=== PATIENT | male | born 1945 | race Caucasian/White ===

== ENCOUNTER 2021-12-07 11:02 | Emergency (ER) | payer MEDICARE, BC, SELFPAY ==
[2021-12-07] VITALS (10 sets, daily range): BP systolic 87–135; BP diastolic 59–107; PULSE 55–105; RESP 14–18; TEMP 36.6; O2SAT 97–100; BMI 24.4
--- NOTE | 2021-12-07 12:04 | ED_ITS ---
HPI - General Adult General Time Seen by Provider: 12:03 Date Seen: 12/07/21 Chief complaint: Arrhythmia/Palpitations Stated complaint: Heart issues possible AFIB Time Seen by Provider: 12/07/21 11:12 Source: patient History of Present Illness HPI narrative: 76-year-old male presents with recurrence of paroxysmal atrial fibrillation. Patient reports that Tuesday evening about 6:45 p.m. he noted that he had irr egular and rapid heartbeats. He has had this previously. He had his last episode in September and underwent Successful cardioversion on September 28 for that. he is seeking the same treatment now. He has been on Xarelto for stroke prophylaxis and has not missed any doses in the last month. He is on metoprolol 100 b.i.d. for rate control. He is not had anything to eat or drink since 01/02 last night. no previous problems with anesthesia. Previous cardioversions have been done with propofal. Related Data Home Medications Medication Instructions Recorded Confirmed acalabrutinib 100 mg capsule mg PO . daily 12/07/21 (Calquence) amlodipine 5 mg tablet mg 12/07/21 atorvastatin 20 mg tablet mg 12/07/21 doxazosin 4 mg tablet mg 12/07/21 lisinopril 10 mg tablet mg 12/07/21 metoprolol tartrate 100 mg tablet mg 12/07/21 rivaroxaban 20 mg tablet (Xarelto) mg 12/07/21 Allergies Allergy/AdvReac Type Severity Reaction Status Date / Time Penicillins Allergy Verified 12/07/21 11:33 Review of Systems Narrative: patient notes he has generally been feeling well except for 2 problems. For urine half he has had a plugged since in his ear. He was initially evaluated for that no some concern about blood in the middle ear space. he saw an ENT in [place] who ordered an MRI which was apparently normal. His ear got better and now in the last couple weeks has gotten worse again. He has not had recent respiratory illness. He does note that he has also had chronic congestion with drainage sometimes including streaks of blood coming from his sinuses. No fever. He has noted for the last 4-5 months that he has had a slight amount of blood mixed in with his stool. He indicates it is bright red to maroonish in color. No other significant bowel abnormalities. He has never had colonoscopy. [facility] Medical History Anxiety BPH with obstruction/lower urinary tract symptoms CLL (chronic lymphocytic leukemia) History of cardioversion Hypertension Malignant melanoma Paroxysmal atrial fibrillation Prostate cancer Surgical History History of cataract surgery History of melanoma excision History of tonsillectomy Hx of mitral valve repair Family History (Updated 12/07/21 @ 12:13 by Benjie Woodard MD) Other CHF (congestive heart failure) Hodgkins disease Social History (Updated 12/07/21 @ 12:14 by Benjie Woodard MD) Narrative: he is and here with his . He gets oncology care through [facility]. He gets primary care through Dr. Brian Coronado. He does not smoke. He drinks 1 glass of red wine daily. Smoking Status: Never smoker How often do you have a drink containing alcohol: monthly or less How often do you have six or more drinks on one occasion: Never AUDIT-C Alcohol total score: 1 Non-prescribed substance use: denies use Exam Narrative: Exam Narrative: He is alert and appears in no distress. He gives his own history. Eyes normal. Pinnas external canals bilaterally normal he has moderate cerumen in his left ear canal. Right tympanic membrane appears normal but behind it appears to be a dark reddish discoloration suggestive of old blood. He has a relatively normal light reflex and no other abnormalities noted. Oropharynx is normal. Neck is supple out mass or adenopathy. Respirations are clear to auscultation. Cardiovascular: S1, S2, irregularly irregular tachycardia. Abdomen is soft without tenderness or mass. Extremities without edema. Good peripheral pulses. Const: Vital Signs, click to edit/add: Vital Signs - 24 hr 12/07/21 11:24 12/07/21 12:00 Temperature 98 F Pulse Rate [Pulse Oximeter] 92 Respiratory Rate 18 18 Blood Pressure [Le ft Upper Arm] 108/78 Pulse Oximetry 98 99 While resting on the gurney during our history taking he had and irregular pulse is ranging from 80-130 Documenting provider has reviewed patient's vital signs: yes Course Vital Signs Vital signs: Initial Vital Signs Temperature 98 F 12/07/21 11:24 Temperature Source Temporal Artery Scan 12/07/21 11:24 Pulse Rate 92 12/07/21 11:24 Pulse Rhythm 12/07/21 11:24 Respiratory Rate 18 12/07/21 11:24 Blood Pressure 108/78 12/07/21 11:24 Blood Pressure Mean 88 12/07/21 11:24 Blood Pressure Position Supine 12/07/21 11:24 Pulse Oximetry 98 12/07/21 11:24 Oxygen Delivery Method 12/07/21 11:24 Vital Signs Temperature 98 F 12/07/21 11:24 Pulse Rate 92 12/07/21 11:24 Respiratory Rate 18 12/07/21 11:24 Blood Pressure 108/78 12/07/21 11:24 Pulse Oximetry 98 12/07/21 11:24 Temperature 98 F 12/07/21 11:24 Pulse Rate 92 12/07/21 11:24 Respiratory Rate 18 12/07/21 12:00 Blood Pressure 108/78 12/07/21 11:24 Pulse Oximetry 99 12/07/21 12:00 Medical Decision Making Lab Data Labs: Lab Results 12/07/21 12/07/21 Range/Units 12:00 12:00 WBC 8.31 (4.50-11.00) K/uL RBC 4.14 L (4.30-5.90) m/uL Hgb 11.5 L (13.5-17.5) gm/dL Hct 36.7 L (37.0-53.0) % MCV 89 (80-100) fL MCH 28 (26-34) pg MCHC 31 L (32-36) gm/dL RDW Coeff of Ekta 14.7 (11.5-15.5) % Plt Count 246 (140-440) K/uL Neut % (Auto) 73.2 H (42.0-72.0) % Lymph % (Auto) 18.1 L (20-44) % [place] % (Auto) 6.1 (0.0-11.0) % Eos % (Auto) 2.0 (0.0-7.0) % Baso % (Auto) 0.5 (0.0-3.0) % Neut # (Auto) 6.10 (1.7-7.0) K/uL Lymph # (Auto) 1.50 (0.90-2.90) K/uL [place] # (Auto) 0.50 (0.00-0.90) K/UL Eos # (Auto) 0.17 (0.00-0.50) K/uL Baso # (Auto) 0.04 (0.00-0.30) K/uL Abs Immat Gran (auto) 0.01 (0.00-0.30) K/uL Sodium 139 (135-149) mmol/L Potassium 4.1 (3.6-5.1) mmol/L Chloride 107 (96-114) mmol/L Carbon Dioxide 25 (20-32) mmol/L BUN 18 (7-30) mg/dL Creatinine 1.0 (0.5-1.5) mg/dL Estimated Creat Clear 66.93 Glucose 112 (60-115) mg/dL Calcium 8.6 (8.4-10.6) mg/dL Discharge Plan Discharge Clinical Impression: Atrial fibrillation with rapid ventricular response Patient Disposition: Home, Self-Care Condition: Improved Additional Instructions: follow-up with Dr. Torres regarding your plugged right ear and blood in your stool. Activity Level: No Restrictions Discharge Diet: Regular Prescriptions: No Action atorvastatin 20 mg tablet 0RF metoprolol tartrate 100 mg tablet 0RF amlodipine 5 mg tablet 0RF lisinopril 10 mg tablet 0RF doxazosin 4 mg tablet 0RF Xarelto 20 mg tablet 0RF Calquence 100 mg capsule PO . daily 0RF Follow Up/Referrals: Essie Torres MD [Primary Care Provider] - Stand Al[facility] Procedures Additional Procedures Procedure name: electrical cardioversion Pre procedure diagnosis: AFib with RVR Post procedure diagnosis: AFib with RVR status post successful cardioversion Written consent by: patient Specimen sent: No Conclusion: patient tolerated procedure Additional comments: PERSON[employer]EL [employer]EARCH PSYCHOLOGIST provided propofol for deep anesthesia
[2021-12-07 12:11] LABS: Basophils Absolute Auto 0.04 K/uL (0.00-0.30); Basophils Percent Auto 0.5 % (0.0-3.0); Eosinophils Absolute Auto 0.17 K/uL (0.00-0.50); Hematocrit 36.7 % (37.0-53.0); Hemoglobin* 11.5 gm/dL (13.5-17.5); Immature Granulocytes Abs Auto 0.01 K/uL (0.00-0.30); Lymphocytes Percent Auto 18.1 % (20-44); Mean Corpuscular HGB Conc 31 gm/dL (32-36); Mean Corpuscular Hemoglobin 28 pg (26-34); Mean Corpuscular Volume 89 fL (80-100); Monocytes Percent Auto 6.1 % (0.0-11.0); Neutrophils Percent Auto 73.2 % (42.0-72.0); Platelet Count* 246 K/uL (140-440); RDW Coefficient of Variation % 14.7 % (11.5-15.5); Red Blood Count 4.14 m/uL (4.30-5.90); White Blood Count* 8.31 K/uL (4.50-11.00)
[2021-12-07] MEDS: 0.9 % SODIUM CHLORIDE 1000 ml 1,000 ML IV (12:20)
[2021-12-07 12:23] LABS: Chloride* 107 mmol/L (96-114); Potassium* 4.1 mmol/L (3.6-5.1); Sodium* 139 mmol/L (135-149)
[2021-12-07 12:26] LABS: Blood Urea Nitrogen* 18 mg/dL (7-30); Carbon Dioxide* 25 mmol/L (20-32); Est. Creatinine Clearance* 66.93
[2021-12-07 12:27] LABS: Calcium* 8.6 mg/dL (8.4-10.6); Glucose* 112 mg/dL (60-115)
--- NOTE | 2021-12-07 12:40 | ED.NURSE ---
Patient's father, Baptist, called and informed of negative strep test.
[2021-12-07 12:50] LABS: Slide Review Reflex No
--- NOTE | 2021-12-07 12:53 | W.ANESCHARGE ---
Anesthesia Charges Start Date/Time Anesthesia Start Date: 12/07/21 Anesthesia Start Time: 12:25 Stop Date/Time Anesthesia Stop Date: 12/07/21 Anesthesia Stop Time: 12:40 Summary Emergency: Yes Extremes of Age: Over 70-CPT [id number]
== END 2021-12-07 13:28 | disposition home or self-care (01) ==
PROVIDERS: Emergency Provider Family Medicine; PCP Family Medicine
DX: I48.20 Chronic atrial fibrillation, unspecified (principal)
CPT/HCPCS: 92960; 36415; 80048; 85025; 93005; 99100; 99140; 99284; 99285; J2704; J7030

== ENCOUNTER 2021-12-17 09:55 | Outpatient (RCR) | payer MEDICARE, BC, SELFPAY ==
[2021-12-17 10:19] LABS: Basophils Absolute Auto 0.04 K/uL (0.00-0.30); Basophils Percent Auto 0.6 % (0.0-3.0); Eosinophils Absolute Auto 0.21 K/uL (0.00-0.50); Eosinophils Percent Auto 2.9 % (0.0-7.0); Hematocrit 35.6 % (37.0-53.0); Hemoglobin* 11.2 gm/dL (13.5-17.5); Immature Granulocytes Abs Auto 0.01 K/uL (0.00-0.30); Lymphocytes Absolute Auto 1.47 K/uL (0.90-2.90); Lymphocytes Percent Auto 20.6 % (20-44); Mean Corpuscular HGB Conc 32 gm/dL (32-36); Mean Corpuscular Hemoglobin 28 pg (26-34); Mean Corpuscular Volume 89 fL (80-100); Monocytes Percent Auto 6.9 % (0.0-11.0); Neutrophils Absolute Auto 4.92 K/uL (1.7-7.0); Neutrophils Percent Auto 68.9 % (42.0-72.0); Platelet Count* 225 K/uL (140-440); RDW Coefficient of Variation % 14.4 % (11.5-15.5); Red Blood Count 3.98 m/uL (4.30-5.90); White Blood Count* 7.14 K/uL (4.50-11.00)
[2021-12-17 10:30] LABS: Slide Review Reflex No
== END 2022-01-03 23:59 | disposition home or self-care (01) ==
LOC: CCIC 09:55
PROVIDERS: PCP Family Medicine; Visit Provider Internal Medicine Hematology & Oncology
DX: C91.10 Chronic lymphocytic leukemia of B-cell type not having achieved remission (principal)
CPT/HCPCS: 36415; 85025

== ENCOUNTER 2021-12-29 10:22 | Emergency (ER) | payer MEDICARE, BC, SELFPAY ==
[2021-12-29 10:29] VITALS: BP 99/67; PULSE 84; RESP 18; TEMP 36.3; O2SAT 99; BMI 24.3
--- NOTE | 2021-12-29 11:14 | ED.ARRPALP ---
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 He did try to use fluids, for the rest of the day but this did not work. He has no history of alcohol use. As she has been off alcohol now for the past month. Last cardioversion was on December 07 at this institution. He is NPO since last night, taking his medications with sips of water otherwise. Denies any chest pain shortness of breath or really any other symptoms, actually played golf yesterday. MD complaint: atrial fibrillation Onset (ago): day(s) Duration: constant Severity: mild Context: occurred during rest Arrhythmia history: atrial fibrillation, on anti-coagulants and history of electrical cardioversion Associated symptoms: denies other symptoms Related Data Home Medications Medication Instructions Recorded Confirmed acalabrutinib 100 mg capsule 100 mg PO .Q24 12/07/21 12/16/21 (Calquence) amlodipine 5 mg tablet 5 mg PO .Q24 12/07/21 12/16/21 atorvastatin 20 mg tablet 10 mg PO .QHS 12/07/21 12/16/21 doxazosin 4 mg tablet 4 mg PO .QHS 12/07/21 12/16/21 lisinopril 10 mg tablet 15 mg PO .Q24 12/07/21 12/16/21 metoprolol tartrate 100 mg tablet 100 mg PO Q12H 12/07/21 12/16/21 rivaroxaban 20 mg tablet (Xarelto) 20 mg PO Q24H 12/07/21 12/16/21 alprazolam 0.25 mg tablet 0.25 mg PO DAILY PRN 12/16/21 12/16/21 calcium carbonate 500 mg calcium 500 mg PO DAILY 12/16/21 12/16/21 (1,250 mg) chewable tablet famotidine 20 mg tablet (Pepcid) 20 mg PO DAILY 12/16/21 12/16/21 furosemide 20 mg tablet 10 mg PO DAILY PRN 12/16/21 12/16/21 magnesium oxide 400 mg PO DAILY 12/16/21 12/16/21 Allergies Allergy/AdvReac Type Severity Reaction Status Date / Time Penicillins Allergy Verified 12/07/21 11:33 Review of Systems Status of ROS: Reports: 10 or more systems reviewed and unremarkable except as noted in History and below [facility] Medical History Anxiety 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 He gets oncology care through [facility]. He gets primary care through Dr. Brian Coronado. He does not smoke. He drinks 1 glass of red wine daily. Smoking Status: Never smoker Second hand tobacco smoke exposure: No How often do you have a drink containing alcohol: monthly or less How often do you have six or more drinks on one occasion: Never AUDIT-C Alcohol total score: 1 Non-prescribed substance use: denies use service: No Exam Narrative: Exam Narrative: Patient is in no apparent distress speaking to me normally, pupils equal round reactive fundi appear normal neck is supple thyroid normal midline not palpable, no meningismus, no lymphadenopathy noted. Chest is clear heart sounds are normal no clicks murmurs or gallops abdomen is soft, moves all extremities independently well neurologically intact in his upper lower extremities with normal power, able to walk normally for me in the room. There is no edema. Const: Vital Signs, click to edit/add: Vital Signs - 24 hr 12/29/21 10:29 12/29/21 13:27 Temperature 97.3 F L Pulse Rate [Right Pulse Oximeter] 84 Respiratory Rate 18 Blood Pressure [Ri ght Upper Arm] 99/67 Pulse Oximetry 99 99 Documenting provider has reviewed patient's vital signs: yes Course Course Hospital Course: 1:09 p.m. Patient now has received his magnesium along with a L and half of fluids with really no bulging and still remains in atrial fibrillation. I discussed with him the risks benefits and side effects of treatment he would like to go forward with a cardioversion which I do not think is unreasonable as he is a great candidate. 1:50 p.m. with supplying anesthesia, with propofol, patient was cardioverted with 120 joules synchronized x1 to good effect into sinus rhythm. No complications were noted. Respiratory therapy also was available. Vital Signs Vital signs: Initial Vital Signs Temperature 97.3 F L 12/29/21 10:29 Temperature Source Temporal Artery Scan 12/29/21 10:29 Pulse Rate 84 12/29/21 10:29 Respiratory Rate 18 12/29/21 10:29 Blood Pressure 99/67 12/29/21 10:29 Blood Pressure Mean 77 12/29/21 10:29 Blood Pressure Position Sitting 12/29/21 10:29 Pulse Oximetry 99 12/29/21 10:29 Oxygen Delivery Method 12/29/21 10:29 Vital Signs Temperature 97.3 F L 12/29/21 10:29 Pulse Rate 84 12/29/21 10:29 Respiratory Rate 18 12/29/21 10:29 Blood Pressure 99/67 12/29/21 10:29 Pulse Oximetry 99 12/29/21 10:29 Temperature 97.3 F L 12/29/21 10:29 Pulse Rate 84 12/29/21 10:29 Respiratory Rate 18 12/29/21 10:29 Blood Pressure 99/67 12/29/21 10:29 Pulse Oximetry 99 12/29/21 13:27 MDM - Arrhythmia/Palpitations MDM Narrative Medical decision making narrative: Differential diagnosis includes but is not limited to psychosocial stress, thyroid abnormalities, CHF, SVT, atrial fibrillation, ventricular tachycardia and ventricular fibrillation. This includes the life-threatening complications of heart failure, V-tach, and VFib I discussed with the patient that a cardioversion would be a possibility, we will keep him from eating anything NPO we will check some electrolytes CBC and troponins. I will give him some fluids and magnesium as this often can help. He was comfortable this plan. Medical Records Attestation: I reviewed the patient's medical records. Lab Data Labs: Lab Results 12/29/21 12/29/21 12/29/21 Range/Units 11:10 11:10 11:10 WBC 7.46 (4.50-11.00) K/uL RBC 4.21 L (4.30-5.90) m/uL Hgb 11.8 L (13.5-17.5) gm/dL Hct 37.0 (37.0-53.0) % MCV 88 (80-100) fL MCH 28 (26-34) pg MCHC 32 (32-36) gm/dL RDW Coeff of Ekta 14.3 (11.5-15.5) % Plt Count 238 (140-440) K/uL Neut % (Auto) 68.7 (42.0-72.0) % Lymph % (Auto) 22.0 (20-44) % [place] % (Auto) 7.4 (0.0-11.0) % Eos % (Auto) 1.5 (0.0-7.0) % Baso % (Auto) 0.3 (0.0-3.0) % Neut # (Auto) 5.13 (1.7-7.0) K/uL Lymph # (Auto) 1.64 (0.90-2.90) K/uL [place] # (Auto) 0.60 (0.00-0.90) K/UL Eos # (Auto) 0.11 (0.00-0.50) K/uL Baso # (Auto) 0.02 (0.00-0.30) K/uL Abs Immat Gran (auto) 0.01 (0.00-0.30) K/uL INR 2.70 H (0.91-1.10) APTT 42 H (23-33) Seconds Sodium 136 (135-149) mmol/L Potassium 4.1 (3.6-5.1) mmol/L Chloride 106 (96-114) mmol/L Carbon Dioxide 22 (20-32) mmol/L BUN 20 (7-30) mg/dL Creatinine 1.1 (0.5-1.5) mg/dL Estimated Creat Clear 60.85 Estimated GFR 70 ml/min Glucose 99 (60-115) mg/dL Calcium 8.9 (8.4-10.6) mg/dL Magnesium (1.5-2.6) mg/dL NT-Pro-B Natriuret Pep 3440 H (0-450) PG/mL TSH (0.270-4.20) uIU/mL POC Troponin I (0.01-0.04) ng/ml 12/29/21 12/29/21 12/29/21 Range/Units 11:10 11:10 11:10 WBC (4.50-11.00) K/uL RBC (4.30-5.90) m/uL Hgb (13.5-17.5) gm/dL Hct (37.0-53.0) % MCV (80-100) fL MCH (26-34) pg MCHC (32-36) gm/dL RDW Coeff of Ekta (11.5-15.5) % Plt Count (140-440) K/uL Neut % (Auto) (42.0-72.0) % Lymph % (Auto) (20-44) % [place] % (Auto) (0.0-11.0) % Eos % (Auto) (0.0-7.0) % Baso % (Auto) (0.0-3.0) % Neut # (Auto) (1.7-7.0) K/uL Lymph # (Auto) (0.90-2.90) K/uL [place] # (Auto) (0.00-0.90) K/UL Eos # (Auto) (0.00-0.50) K/uL Baso # (Auto) (0.00-0.30) K/uL Abs Immat Gran (auto) (0.00-0.30) K/uL INR (0.91-1.10) APTT (23-33) Seconds Sodium (135-149) mmol/L Potassium (3.6-5.1) mmol/L Chloride (96-114) mmol/L Carbon Dioxide (20-32) mmol/L BUN (7-30) mg/dL Creatinine (0.5-1.5) mg/dL Estimated Creat Clear Estimated GFR ml/min Glucose (60-115) mg/dL Calcium (8.4-10.6) mg/dL Magnesium 1.9 (1.5-2.6) mg/dL NT-Pro-B Natriuret Pep (0-450) PG/mL TSH 3.550 (0.270-4.20) uIU/mL POC Troponin I 0.01 (0.01-0.04) ng/ml ECG Data Attestation: I personally reviewed and interpreted this ECG as follows: ECG interpretation date: 12/29/21 ECG interpretation time: 12:02 Prior ECG tracings: available for review Ischemic changes: other Interpretation: Atrial fibrillation with controlled ventricular rate of 96 nonspecific changes otherwise normal. Old EKG is the same Postprocedure EKG shows normal sinus rhythm. No acute ST wave changes. Discharge Plan Discharge Clinical Impression: Atrial fibrillation status post cardioversion, Atrial fibrillation Patient Disposition: Home w/ Parent or Adult Condition: Improved Instructions: A-fib (Atrial Fibrillation) (ED) Additional Instructions: Home rest suggest follow-up with [facility] for further instructions. Continue with hydration status. Continue medications Prescriptions: No Action alprazolam 0.25 mg tablet 0.25 mg PO DAILY PRN0RF calcium carbonate 500 mg calcium (1,250 mg) tablet,chewable 500 mg PO DAILY 0RF famotidine [Pepcid] 20 mg tablet 20 mg PO DAILY 0RF furosemide 20 mg tablet 10 mg PO DAILY PRN0RF magnesium oxide 400 mg magnesium tablet 400 mg PO DAILY 0RF atorvastatin 20 mg tablet 10 mg PO .QHS 0RF metoprolol tartrate 100 mg tablet 100 mg PO Q12H 0RF amlodipine 5 mg tablet 5 mg PO .Q24 0RF lisinopril 10 mg tablet 15 mg PO .Q24 0RF doxazosin 4 mg tablet 4 mg PO .QHS 0RF Xarelto 20 mg tablet 20 mg PO Q24H 0RF Calquence 100 mg capsule 100 mg PO .Q24 0RF Follow Up/Referrals: Essie Torres MD [Primary Care Provider] - Stand Alone Forms: [employer] Info Instructions
[2021-12-29 11:28] LABS: Troponin, Point-of-Care* 0.01 ng/ml (0.01-0.04)
[2021-12-29 11:33] LABS: Basophils Absolute Auto 0.02 K/uL (0.00-0.30); Basophils Percent Auto 0.3 % (0.0-3.0); Eosinophils Absolute Auto 0.11 K/uL (0.00-0.50); Eosinophils Percent Auto 1.5 % (0.0-7.0); Hemoglobin* 11.8 gm/dL (13.5-17.5); Immature Granulocytes Abs Auto 0.01 K/uL (0.00-0.30); Lymphocytes Absolute Auto 1.64 K/uL (0.90-2.90); Mean Corpuscular HGB Conc 32 gm/dL (32-36); Mean Corpuscular Hemoglobin 28 pg (26-34); Mean Corpuscular Volume 88 fL (80-100); Monocytes Percent Auto 7.4 % (0.0-11.0); Neutrophils Absolute Auto 5.13 K/uL (1.7-7.0); Neutrophils Percent Auto 68.7 % (42.0-72.0); Platelet Count* 238 K/uL (140-440); RDW Coefficient of Variation % 14.3 % (11.5-15.5); Red Blood Count 4.21 m/uL (4.30-5.90); White Blood Count* 7.46 K/uL (4.50-11.00)
[2021-12-29 11:41] LABS: Potassium* 4.1 mmol/L (3.6-5.1); Slide Review Reflex No
[2021-12-29] MEDS: 0.9 % SODIUM CHLORIDE 1000 ml 1,000 ML IV ×2 (11:43→13:00)
[2021-12-29] MEDS: MAGNESIUM SULFATE 2 GM/50 ML PIGGYBACK IVPB (11:43)
[2021-12-29 11:47] LABS: Chloride* 106 mmol/L (96-114); Sodium* 136 mmol/L (135-149)
[2021-12-29 11:50] LABS: Carbon Dioxide* 22 mmol/L (20-32); Creatinine* 1.1 mg/dL (0.5-1.5); Est. Creatinine Clearance* 60.85; Estimated Glomerular Filt Rate 70 ml/min; Magnesium* 1.9 mg/dL (1.5-2.6)
[2021-12-29 11:51] LABS: Blood Urea Nitrogen* 20 mg/dL (7-30); Calcium* 8.9 mg/dL (8.4-10.6); Glucose* 99 mg/dL (60-115)
[2021-12-29 11:58] LABS: Partial Thromboplastin Time* 42 Seconds (23-33); Prothrombin Time 29.1 Seconds
[2021-12-29 12:00] LABS: NT Pro B Type NatriureticPept* 3440 PG/mL (0-450)
[2021-12-29 13:27] VITALS: O2SAT 99
[2021-12-29] MEDS: PROPOFOL 10 MG/ML INJ 200 MG IV (13:42)
--- NOTE | 2021-12-29 14:16 | RESP.RT ---
Pt cardioverted, on SB for airway monitoring, support. See nursing record for vitals.
--- NOTE | 2021-12-29 15:48 | ED.NURSE ---
see sedation record for patient vital signs during ED stay.
== END 2021-12-29 14:35 | disposition home or self-care (01) ==
PROVIDERS: Emergency Provider Family Medicine; PCP Family Medicine
DX: I48.91 Unspecified atrial fibrillation (principal)
CPT/HCPCS: 36415; 80048; 83735; 83880; 84443; 84484; 85025; 85610; 85730; 92960; 93005; 96365; 99156; 99284; 99285; J2704; J3475; J7030

== ENCOUNTER 2021-12-30 10:06 | Emergency (ER) | payer MEDICARE, BC, SELFPAY ==
[2021-12-30] VITALS (14 sets, daily range): BP systolic 121–153; BP diastolic 80–122; PULSE 69–143; RESP 10–19; TEMP 36.1; O2SAT 98–100; BMI 24.4
--- NOTE | 2021-12-30 11:04 | ED_ITS ---
HPI - General Adult General Time Seen by Provider: 11:04 Date Seen: 12/30/21 Chief complaint: Arrhythmia/Palpitations Stated complaint: Afib Time Seen by Provider: 12/30/21 10:09 Source: patient History of Present Illness HPI narrative: Camila is a 76 year old male with past medical history of CLL, atrial fibrillation s/p cardioversion yesterday who presents to the ED via private care with palpitations. Patient states he was here yesterday for atrial fibrillation and palpitations, he was cardioverted successfully into sinus rhythm, he went back home and was stress reading and around 4:00 p.m. he went back into atrial fibrillation. Patient's symptoms are that he feels weak and fatigued, exertional shortness of breath, denies any chest pain, cough lightheadedness or dizziness. Originally he came in yesterday for the same, symptoms started on Tuesday when he went to play golf. Patient states he has been eating and drinking normally, denies any fevers, chills myalgias arthralgias, denies any nausea vomiting or diarrhea. Patient is currently on Xarelto. He does take acalabrutinib (Calquence) for his CLL, one of the side effects is atrial fibrillation. Patient states he had a cardiac ablation match November, he follow-up by Dr. Santana EP [facility], he also gets his oncology care there. Patient has been cardioverted a total of around 5 times in the past. He saw Dr. Santana in [place] 1 month ago. No other concerns at this time. Related Data Home Medications Medication Instructions Recorded Confirmed acalabrutinib 100 mg capsule 100 mg PO .Q24 12/07/21 12/16/21 (Calquence) amlodipine 5 mg tablet 5 mg PO .Q24 12/07/21 12/16/21 atorvastatin 20 mg tablet 10 mg PO .QHS 12/07/21 12/16/21 doxazosin 4 mg tablet 4 mg PO .QHS 12/07/21 12/16/21 lisinopril 10 mg tablet 15 mg PO .Q24 12/07/21 12/16/21 metoprolol tartrate 100 mg tablet 100 mg PO Q12H 12/07/21 12/16/21 rivaroxaban 20 mg tablet (Xarelto) 20 mg PO Q24H 12/07/21 12/16/21 alprazolam 0.25 mg tablet 0.25 mg PO DAILY PRN 12/16/21 12/16/21 calcium carbonate 500 mg calcium 500 mg PO DAILY 12/16/21 12/16/21 (1,250 mg) chewable tablet famotidine 20 mg tablet (Pepcid) 20 mg PO DAILY 12/16/21 12/16/21 furosemide 20 mg tablet 10 mg PO DAILY PRN 12/16/21 12/16/21 magnesium oxide 400 mg PO DAILY 12/16/21 12/16/21 Previous Rx's Medication Instructions Recorded metoprolol tartrate 50 mg tablet 50 mg PO DAILY #30 tab 12/30/21 Allergies Allergy/AdvReac Type Severity Reaction Status Date / Time Penicillins Allergy Verified 12/07/21 11:33 Review of Systems Status of ROS: Reports: 10 or more systems reviewed and unremarkable except as noted in History and below [facility] Medical History Anxiety 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 He gets oncology care through [facility]. He gets primary care through Dr. Brian Coronado. He does not smoke. He drinks 1 glass of red wine daily. Smoking Status: Never smoker Do you use any of these nicotine containing products: None Second hand tobacco smoke exposure: No How often do you have a drink containing alcohol: never How often do you have six or more drinks on one occasion: Never AUDIT-C Alcohol total score: 0 Non-prescribed substance use: denies use service: No Exam Const: Vital Signs, click to edit/add: Vital Signs - 24 hr 12/30/21 10:10 12/30/21 10:14 12/30/21 10:20 Temperature 96.9 F L Pulse Rate [Left P ulse Oximeter] 143 H 108 H 109 H Respiratory Rate 19 16 11 L Blood Pressure [Le ft Upper Arm] 153/108 H 153/108 H 131/119 H Pulse Oximetry 99 99 99 12/30/21 10:30 12/30/21 11:00 12/30/21 11:45 Temperature Pulse Rate [Left P ulse Oximeter] 107 H 109 H 109 H Respiratory Rate 10 L Blood Pressure [Le ft Upper Arm] 145/121 H 128/83 140/122 H Pulse Oximetry 99 99 98 12/30/21 12:00 12/30/21 12:30 12/30/21 13:00 Temperature Pulse Rate [Left P ulse Oximeter] 102 H 84 Respiratory Rate Blood Pressure [Le ft Upper Arm] 138/101 H 121/104 H 132/87 Pulse Oximetry 99 100 12/30/21 13:05 12/30/21 13:10 12/30/21 13:15 Temperature Pulse Rate [Left P ulse Oximeter] 88 92 69 Respiratory Rate Blood Pressure [Le ft Upper Arm] 126/93 H 130/89 125/92 H Pulse Oximetry 100 100 100 12/30/21 13:25 12/30/21 14:00 Temperature Pulse Rate [Left P ulse Oximeter] 85 98 Respiratory Rate Blood Pressure [Le ft Upper Arm] 148/80 H 143/87 H Pulse Oximetry 100 99 Common normals: no apparent distress and oriented x3 General appearance: comfortable Orientation/consciousness: Yes awake and Yes oriented to person HENMT: Common normals: normocephalic and TM's normal bilaterally Head and scalp: normal to inspection and normocephalic Tympanic membrane: TM's normal bilaterally and TM normal on the right Mouth: oral and palatal mucosa normal Eye: Common normals: PERRL and EOMs intact bilaterally General eye: normal appearance of both eyes Pupil: PERRL Neck & C-Spine: Common normals: full ROM, no lymphadenopathy, supple and no JVD Lymph: Lymphatic: no lymphadenopathy noted Chest: Common normals: inspection of chest normal Resp: Common normals: normal respiratory effort and clear to auscultation bilaterally Auscultation: clear to auscultation bilaterally Cardio: Common normals: no JVD Other: Irregular irregular GI: Common normals: Normal to inspection, nondistended, normoactive bowel sounds present and soft to palpation Palpation: soft Extremity: Common normals: normal to inspection, full ROM and no clubbing, cyanosis or edema Neuro: Common normals: oriented x3, CN's II-XII intact bilaterally, moves all extremities and no focal motor deficits Sensorium/orientation: awake and oriented to person Course Course Hospital Course: 11:15 PM: AIDET performed, vitals are stable at this time, workup will include 0.9 normal saline bolus 500 mL, will obtain EKG, NT proBNP, CBC, CMP magnesium and portable chest x-ray. Will reach out to [facility] for further recommendations. Differential diagnosis include but not limited to, atrial fibrillation with RVR, supraventricular tachycardia, ventricular tachycardia, ventricular fibrillation, sinus tachycardia, metabolic abnormalities, congestive heart failure, ACS, as well as all etiologies. Vital Signs Vital signs: Initial Vital Signs Pulse Rate 143 H 12/30/21 10:10 Respiratory Rate 19 12/30/21 10:10 Blood Pressure 153/108 H 12/30/21 10:10 Blood Pressure Mean 123 12/30/21 10:10 Blood Pressure Position Supine 12/30/21 10:10 Pulse Oximetry 99 12/30/21 10:10 Oxygen Delivery Method 12/30/21 10:10 Vital Signs Pulse Rate 143 H 12/30/21 10:10 Respiratory Rate 19 12/30/21 10:10 Blood Pressure 153/108 H 12/30/21 10:10 Pulse Oximetry 99 12/30/21 10:10 Temperature 96.9 F L 12/30/21 10:14 Pulse Rate 98 12/30/21 14:00 Respiratory Rate 10 L 12/30/21 10:30 Blood Pressure 143/87 H 12/30/21 14:00 Pulse Oximetry 99 12/30/21 14:00 Medical Decision Making Lab Data Labs: Lab Results 12/30/21 12/30/21 12/30/21 Range/Units 11:45 11:45 11:45 WBC 7.41 (4.50-11.00) K/uL RBC 4.09 L (4.30-5.90) m/uL Hgb 11.7 L (13.5-17.5) gm/dL Hct 36.4 L (37.0-53.0) % MCV 89 (80-100) fL MCH 29 (26-34) pg MCHC 32 (32-36) gm/dL RDW Coeff of Ekta 14.2 (11.5-15.5) % Plt Count 247 (140-440) K/uL Neut % (Auto) 72.2 H (42.0-72.0) % Lymph % (Auto) 19.6 L (20-44) % [place] % (Auto) 6.9 (0.0-11.0) % Eos % (Auto) 0.9 (0.0-7.0) % Baso % (Auto) 0.3 (0.0-3.0) % Neut # (Auto) 5.40 (1.7-7.0) K/uL Lymph # (Auto) 1.50 (0.90-2.90) K/uL [place] # (Auto) 0.50 (0.00-0.90) K/UL Eos # (Auto) 0.07 (0.00-0.50) K/uL Baso # (Auto) 0.02 (0.00-0.30) K/uL Abs Immat Gran (auto) 0.01 (0.00-0.30) K/uL Sodium 138 (135-149) mmol/L Potassium 4.6 (3.6-5.1) mmol/L Chloride 108 (96-114) mmol/L Carbon Dioxide 24 (20-32) mmol/L BUN 18 (7-30) mg/dL Creatinine 1.0 (0.5-1.5) mg/dL Estimated Creat Clear 66.93 Estimated GFR 78 ml/min Glucose 104 (60-115) mg/dL Calcium 8.7 (8.4-10.6) mg/dL Magnesium 2.0 (1.5-2.6) mg/dL Total Bilirubin 1.9 H (0.1-1.5) mg/dL AST 20 (12-35) U/L ALT 14 (4-50) U/L Alkaline Phosphatase 88 (40-150) U/L NT-Pro-B Natriuret Pep 3440 H (0-450) PG/mL Total Protein 6.5 (6.0-8.3) g/dL Albumin 4.0 (3.3-5.0) g/dL Discharge Plan Discharge Clinical Impression: History of cardioversion, Atrial fibrillation, Chronic anticoagulation Patient Disposition: Home, Self-Care Instructions: A-fib (Atrial Fibrillation) (ED) Additional Instructions: To take Metoprolol tartrate 150 mg in the morning and then 100 mg in the evening. To follow up with Dr. Nazario Cardiology or Dr. Santana EP in [place] in the next week for ED follow up. Return if worsening symptoms. Activity Level: No Restrictions Prescriptions: New metoprolol tartrate 50 mg tablet 50 mg PO DAILY Qty: 30 3RF No Action alprazolam 0.25 mg tablet 0.25 mg PO DAILY PRN0RF calcium carbonate 500 mg calcium (1,250 mg) tablet,chewable 500 mg PO DAILY 0RF famotidine [Pepcid] 20 mg tablet 20 mg PO DAILY 0RF furosemide 20 mg tablet 10 mg PO DAILY PRN0RF magnesium oxide 400 mg magnesium tablet 400 mg PO DAILY 0RF atorvastatin 20 mg tablet 10 mg PO .QHS 0RF metoprolol tartrate 100 mg tablet 100 mg PO Q12H 0RF amlodipine 5 mg tablet 5 mg PO .Q24 0RF lisinopril 10 mg tablet 15 mg PO .Q24 0RF doxazosin 4 mg tablet 4 mg PO .QHS 0RF Xarelto 20 mg tablet 20 mg PO Q24H 0RF Calquence 100 mg capsule 100 mg PO .Q24 0RF Follow Up/Referrals: Essie Torres MD [Primary Care Provider] - Stand Alone Forms: [employer] Info Instructions
--- NOTE | 2021-12-30 11:39 | CRLHL7_ITS ---
For Patients: As a result of the Century Cures Act, medical imaging exams and procedure reports are released immediately into your electronic medical record. You may view this report before your referring provider. If you have questions, please contact your health care provider. INDICATION: History of cardioversion. TECHNIQUE: Chest 1 views. COMPARISON: 07/29/2021. FINDINGS: Cardiovascular and mediastinum: Heart size and vasculature are normal in caliber and appearance. Lungs and pleural spaces: Lungs are clear. No sign of infiltrate or mass. No sign of pleural effusion. No pneumothorax. Bones and soft tissues: No significant findings. IMPRESSION: No acute or significant findings. Dictated by Satish Leung MD @ 12/30/2021 12:10:12 PM (Electronically Signed)
[2021-12-30] MEDS: 0.9 % SODIUM CHLORIDE 500 ML 500 ML IV (11:45)
[2021-12-30 12:03] LABS: Basophils Absolute Auto 0.02 K/uL (0.00-0.30); Basophils Percent Auto 0.3 % (0.0-3.0); Eosinophils Absolute Auto 0.07 K/uL (0.00-0.50); Eosinophils Percent Auto 0.9 % (0.0-7.0); Hematocrit 36.4 % (37.0-53.0); Hemoglobin* 11.7 gm/dL (13.5-17.5); Immature Granulocytes Abs Auto 0.01 K/uL (0.00-0.30); Lymphocytes Percent Auto 19.6 % (20-44); Mean Corpuscular HGB Conc 32 gm/dL (32-36); Mean Corpuscular Hemoglobin 29 pg (26-34); Mean Corpuscular Volume 89 fL (80-100); Monocytes Percent Auto 6.9 % (0.0-11.0); Neutrophils Percent Auto 72.2 % (42.0-72.0); Platelet Count* 247 K/uL (140-440); RDW Coefficient of Variation % 14.2 % (11.5-15.5); Red Blood Count 4.09 m/uL (4.30-5.90); White Blood Count* 7.41 K/uL (4.50-11.00)
[2021-12-30 12:04] LABS: Slide Review Reflex No
[2021-12-30] MEDS: METOPROLOL TARTRATE 25 MG TABLET PO ×2 (12:10)
--- NOTE | 2021-12-30 12:11 | ED.NURSE ---
Per MD Brambila, 2 tablets of 25mg metoprolol tartrate given PO to pt. Unable to document administration in the MAR at this time.
--- NOTE | 2021-12-30 12:11 | ED.GENADULT ---
HPI - General Adult General Chief complaint: Arrhythmia/Palpitations Stated complaint: Afib Time Seen by Provider: 12/30/21 10:09 Source: patient Related Data Home Medications Medication Instructions Recorded Confirmed acalabrutinib 100 mg capsule 100 mg PO .Q24 12/07/21 12/16/21 (Calquence) amlodipine 5 mg tablet 5 mg PO .Q24 12/07/21 12/16/21 atorvastatin 20 mg tablet 10 mg PO .QHS 12/07/21 12/16/21 doxazosin 4 mg tablet 4 mg PO .QHS 12/07/21 12/16/21 lisinopril 10 mg tablet 15 mg PO .Q24 12/07/21 12/16/21 metoprolol tartrate 100 mg tablet 100 mg PO Q12H 12/07/21 12/16/21 rivaroxaban 20 mg tablet (Xarelto) 20 mg PO Q24H 12/07/21 12/16/21 alprazolam 0.25 mg tablet 0.25 mg PO DAILY PRN 12/16/21 12/16/21 calcium carbonate 500 mg calcium 500 mg PO DAILY 12/16/21 12/16/21 (1,250 mg) chewable tablet famotidine 20 mg tablet (Pepcid) 20 mg PO DAILY 12/16/21 12/16/21 furosemide 20 mg tablet 10 mg PO DAILY PRN 12/16/21 12/16/21 magnesium oxide 400 mg PO DAILY 12/16/21 12/16/21 Previous Rx's Medication Instructions Recorded metoprolol tartrate 50 mg tablet 50 mg PO DAILY #30 tab 12/30/21 Allergies Allergy/AdvReac Type Severity Reaction Status Date / Time Penicillins Allergy Verified 12/07/21 11:33 [facility] Medical History Anxiety 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 He gets oncology care through [facility]. He gets primary care through Dr. Brian Croonado. He does not smoke. He drinks 1 glass of red wine daily. Smoking Status: Never smoker Do you use any of these nicotine containing products: None Second hand tobacco smoke exposure: No How often do you have a drink containing alcohol: never How often do you have six or more drinks on one occasion: Never AUDIT-C Alcohol total score: 0 Non-prescribed substance use: denies use service: No Exam Const: Vital Signs, click to edit/add: Vital Signs - 24 hr 12/30/21 10:10 12/30/21 10:14 12/30/21 10:20 Temperature 96.9 F L Pulse Rate [Left P ulse Oximeter] 143 H 108 H 109 H Respiratory Rate 19 16 11 L Blood Pressure [Le ft Upper Arm] 153/108 H 153/108 H 131/119 H Pulse Oximetry 99 99 99 12/30/21 10:30 Temperature Pulse Rate [Left P ulse Oximeter] 107 H Respiratory Rate 10 L Blood Pressure [Le ft Upper Arm] 145/121 H Pulse Oximetry 99 Course Course Hospital Course: 11:15 PM: AIDET performed, vitals are stable at this time, workup will include 0.9 normal saline bolus 500 mL, will obtain EKG, NT proBNP, CBC, CMP magnesium and portable chest x-ray. Will reach out to EP [facility] for further recommendations. Differential diagnosis include but not limited to, atrial fibrillation with RVR, supraventricular tachycardia, ventricular tachycardia, ventricular fibrillation, sinus tachycardia, metabolic abnormalities, congestive heart failure, ACS, as well as all etiologies. Reevaluation(s) Reevaluation #1: Spoke with [facility] Cardiology Dr. Beatriz PENDLETON, he recommended not to repeat cardioversion today, to increase metoprolol tartrate dose 250 mg in the morning and then 100 mg in the evening, to have him follow up with EP with Dr. Santana sooner than late for ED follow up, or possibly Dr. Nazario Cardiology in [place]. Patient was updated on his EKG and lab results, EKG did show atrial fibrillation with the p.m. 96, there were premature ventricular complexes. CBC showed no leukocytosis, hemoglobin stable at 11.7. Time: 12:11 Reevaluation #2: Patient was updated on his imaging results, showed no acute cardiopulmonary process, NT proBNP mildly elevated due to his atrial fibrillation, no signs of fluid overload on exam, metabolic panel within normal limits. Patient was given the above care and his rate was controlled, he was ambulating with no symptoms, did reach out to Dr. Santana to get him in next week for ED followup, all questions answered. Reasons to return given. Time: 13:31 Vital Signs Vital signs: Initial Vital Signs Pulse Rate 143 H 12/30/21 10:10 Respiratory Rate 19 12/30/21 10:10 Blood Pressure 153/108 H 12/30/21 10:10 Blood Pressure Mean 123 12/30/21 10:10 Blood Pressure Position Supine 12/30/21 10:10 Pulse Oximetry 99 12/30/21 10:10 Oxygen Delivery Method 12/30/21 10:10 Vital Signs Pulse Rate 143 H 12/30/21 10:10 Respiratory Rate 19 12/30/21 10:10 Blood Pressure 153/108 H 12/30/21 10:10 Pulse Oximetry 99 12/30/21 10:10 Temperature 96.9 F L 12/30/21 10:14 Pulse Rate 107 H 12/30/21 10:30 Respiratory Rate 10 L 12/30/21 10:30 Blood Pressure 145/121 H 12/30/21 10:30 Pulse Oximetry 99 12/30/21 10:30 Medical Decision Making Lab Data Labs: Lab Results 12/30/21 12/30/21 12/30/21 Range/Units 11:45 11:45 11:45 WBC 7.41 (4.50-11.00) K/uL RBC 4.09 L (4.30-5.90) m/uL Hgb 11.7 L (13.5-17.5) gm/dL Hct 36.4 L (37.0-53.0) % MCV 89 (80-100) fL MCH 29 (26-34) pg MCHC 32 (32-36) gm/dL RDW Coeff of Ekta 14.2 (11.5-15.5) % Plt Count 247 (140-440) K/uL Neut % (Auto) 72.2 H (42.0-72.0) % Lymph % (Auto) 19.6 L (20-44) % [place] % (Auto) 6.9 (0.0-11.0) % Eos % (Auto) 0.9 (0.0-7.0) % Baso % (Auto) 0.3 (0.0-3.0) % Neut # (Auto) 5.40 (1.7-7.0) K/uL Lymph # (Auto) 1.50 (0.90-2.90) K/uL [place] # (Auto) 0.50 (0.00-0.90) K/UL Eos # (Auto) 0.07 (0.00-0.50) K/uL Baso # (Auto) 0.02 (0.00-0.30) K/uL Abs Immat Gran (auto) 0.01 (0.00-0.30) K/uL Sodium 138 (135-149) mmol/L Potassium 4.6 (3.6-5.1) mmol/L Chloride 108 (96-114) mmol/L Carbon Dioxide 24 (20-32) mmol/L BUN 18 (7-30) mg/dL Creatinine 1.0 (0.5-1.5) mg/dL Estimated Creat Clear 66.93 Estimated GFR 78 ml/min Glucose 104 (60-115) mg/dL Calcium 8.7 (8.4-10.6) mg/dL Magnesium 2.0 (1.5-2.6) mg/dL Total Bilirubin 1.9 H (0.1-1.5) mg/dL AST 20 (12-35) U/L ALT 14 (4-50) U/L Alkaline Phosphatase 88 (40-150) U/L NT-Pro-B Natriuret Pep 3440 H (0-450) PG/mL Total Protein 6.5 (6.0-8.3) g/dL Albumin 4.0 (3.3-5.0) g/dL Discharge Plan Discharge Clinical Impression: History of cardioversion, Atrial fibrillation, Chronic anticoagulation Patient Disposition: Home, Self-Care Instructions: A-fib (Atrial Fibrillation) (ED) Additional Instructions: To take Metoprolol tartrate 150 mg in the morning and then 100 mg in the evening. To follow up with Dr. Nazario Cardiology or Dr. Santana EP in [place] in the next week for ED follow up. Return if worsening symptoms. Activity Level: No Restrictions Prescriptions: New metoprolol tartrate 50 mg tablet 50 mg PO DAILY Qty: 30 3RF No Action alprazolam 0.25 mg tablet 0.25 mg PO DAILY PRN0RF calcium carbonate 500 mg calcium (1,250 mg) tablet,chewable 500 mg PO DAILY 0RF famotidine [Pepcid] 20 mg tablet 20 mg PO DAILY 0RF furosemide 20 mg tablet 10 mg PO DAILY PRN0RF magnesium oxide 400 mg magnesium tablet 400 mg PO DAILY 0RF atorvastatin 20 mg tablet 10 mg PO .QHS 0RF metoprolol tartrate 100 mg tablet 100 mg PO Q12H 0RF amlodipine 5 mg tablet 5 mg PO .Q24 0RF lisinopril 10 mg tablet 15 mg PO .Q24 0RF doxazosin 4 mg tablet 4 mg PO .QHS 0RF Xarelto 20 mg tablet 20 mg PO Q24H 0RF Calquence 100 mg capsule 100 mg PO .Q24 0RF Follow Up/Referrals: Essie Torres MD [Primary Care Provider] - Stand Alone Forms: [facility] Info Instructions
[2021-12-30 12:16] LABS: Chloride* 108 mmol/L (96-114)
[2021-12-30 12:17] LABS: Potassium* 4.6 mmol/L (3.6-5.1); Sodium* 138 mmol/L (135-149)
[2021-12-30 12:19] LABS: Aspartate Amino Transferase* 20 U/L (12-35); Bilirubin Total* 1.9 mg/dL (0.1-1.5); Carbon Dioxide* 24 mmol/L (20-32); Est. Creatinine Clearance* 66.93; Estimated Glomerular Filt Rate 78 ml/min; Total Protein* 6.5 g/dL (6.0-8.3)
[2021-12-30 12:20] LABS: Alanine Aminotransferase* 14 U/L (4-50); Alkaline Phosphatase* 88 U/L (40-150); Blood Urea Nitrogen* 18 mg/dL (7-30); Calcium* 8.7 mg/dL (8.4-10.6); Glucose* 104 mg/dL (60-115)
[2021-12-30 12:29] LABS: NT Pro B Type NatriureticPept* 3440 PG/mL (0-450)
[2021-12-30] MEDS: dilTIAZem 5 MG/ML inj 10 MG IVP (13:00)
--- NOTE | 2021-12-30 13:22 | ED.NURSE ---
Road test with pt, pt tolerated ambulation well. Initial HR in the mid-80's during ambulation. While ambulating and talking with MD, HR up to 100-110. MD aware. HR down to 80's upon sitting back in bed.
--- NOTE | 2021-12-30 14:11 | PC.NURSE ---
Patient discharged home with . Patient to follow up with science instructor in the next week. Will increase his Metoprolol to 150mg in Am and 100mg in PM. IV was taken out and catheter intact. Patient left ambulatory.
== END 2021-12-30 14:13 | disposition home or self-care (01) ==
LOC: ED 13:39
PROVIDERS: Emergency Provider Student in an Organized Health Care Education/Training Program; PCP Family Medicine
DX: I48.91 Unspecified atrial fibrillation (principal)
CPT/HCPCS: 36415; 71045; 80053; 81003; 83735; 83880; 85025; 96360; 99283; 99284; A9270; J7120

== ENCOUNTER 2022-01-14 09:52 | Outpatient (RCR) | payer MEDICARE, BC, SELFPAY ==
[2022-01-14 10:13] LABS: Basophils Absolute Auto 0.02 K/uL (0.00-0.30); Basophils Percent Auto 0.3 % (0.0-3.0); Eosinophils Absolute Auto 0.21 K/uL (0.00-0.50); Hematocrit 34.4 % (37.0-53.0); Hemoglobin* 10.8 gm/dL (13.5-17.5); Immature Granulocytes Abs Auto 0.01 K/uL (0.00-0.30); Lymphocytes Absolute Auto 1.68 K/uL (0.90-2.90); Lymphocytes Percent Auto 23.9 % (20-44); Mean Corpuscular HGB Conc 31 gm/dL (32-36); Mean Corpuscular Hemoglobin 28 pg (26-34); Mean Corpuscular Volume 89 fL (80-100); Monocytes Percent Auto 5.7 % (0.0-11.0); Platelet Count* 257 K/uL (140-440); RDW Coefficient of Variation % 13.7 % (11.5-15.5); Red Blood Count 3.87 m/uL (4.30-5.90); Slide Review Reflex No; White Blood Count* 7.02 K/uL (4.50-11.00)
--- NOTE | 2022-01-14 15:36 | ONC.NURNOTE ---
Lab results reviewed by Dr Hurtado and LM on voice mail to call for results- but stable
== END 2022-07-13 23:59 | disposition home or self-care (01) ==
LOC: CCIC 09:52
PROVIDERS: PCP Family Medicine; Visit Provider Internal Medicine Hematology & Oncology
DX: C91.10 Chronic lymphocytic leukemia of B-cell type not having achieved remission (principal)
CPT/HCPCS: 36415; 85025

== ENCOUNTER 2022-03-22 09:52 | Outpatient (CLI) | payer MEDICARE, BC, SELFPAY ==
--- NOTE | 2022-03-22 11:00 | CRLHL7_ITS ---
For Patients: As a result of the 21st Century Cures Act, medical imaging exams and procedure reports are released immediately into your electronic medical record. You may view this report before your referring provider. If you have questions, please contact your health care provider. Indication: Chronic lymphocytic leukemia Technique: Postcontrast CT chest, abdomen and pelvis. Oral water. 85 cc Isovue 370 intravenous contrast. Please note that all CT scans at this facility use dose modulation, iterative reconstruction, and/or weight-based dosing when appropriate to reduce radiation dose to as low as reasonably achievable. Comparison: 11/20/2021, 07/15/2021, 05/18/2021, 08/23/2019, 08/16/2019 Findings: In the chest, patchy ill-defined areas parenchymal density are similar bilaterally although there is a new ground-glass focus within the left upper lobe, series 4, image 34. No pleural effusion or pericardial effusion. No pneumothorax or congestive heart failure. Innumerable mildly enlarged left axillary and mediastinal lymph nodes are similar to the November 20, 2021 examination. Partially calcified subcarinal and right hilar lymph nodes are also stable. Coronary artery calcifications are present. There is no hiatal hernia. The visualized thyroid gland is normal. Bridging osteophytes lower thoracic spine. No fracture. In the abdomen, there is no suspicious intrahepatic mass. A few scattered subcentimeter cysts are noted within the right hepatic lobe. Bulky adenopathy measuring 4.8 cm between the inferior liver and pancreas is similar to the 05/18/2021 examination. Innumerable enlarged central mesenteric lymph nodes and retroperitoneal lymph nodes are present which have decreased in size compared to the 08/16/2027 examination. The spleen is not enlarged. Adrenal glands normal. No solid renal mass. Subcentimeter cyst lower pole right kidney. 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 Ureters normal. Pancreatic parenchyma normal. Gallbladder incompletely distended. Vascular calcifications. No aneurysm. In the pelvis, radiotherapy seeds are present within the prostate gland. The bladder is normal without wall thickening or stones. Mildly enlarged bilateral pelvic sidewall and inguinal lymph nodes are present which have markedly decreased in size compared to the 08/16/2027 exam. There is no bowel obstruction or free air. No free fluid or abscess. Mild colonic diverticulosis. No diverticulitis. No fracture. Degenerative changes. No intrinsic osseous lesion. Impression: Since 08/16/2019, there has been a significant decrease in size regarding the mesenteric, retroperitoneal, pelvic and inguinal adenopathy. There is a similar lymph node mass within the right upper abdomen between the pancreas and liver, unchanged from 05/18/2021. Also similar are numerous prominent lymph nodes within the mediastinum and left axilla compared to 11/20/2021. New focus of pulmonary ground-glass opacity within the left upper lobe with likely similar other patchy areas of ground-glass density elsewhere. Please note that all CT scans at this facility use dose modulation, iterative reconstruction, and/or weight-based dosing when appropriate to reduce radiation dose to as low as reasonably achievable. Dictated by Ron Walters MD @ 03/22/2022 12:21:52 PM (Electronically Signed)
== END 2022-03-22 09:53 | disposition home or self-care (01) ==
LOC: CT 09:53
PROVIDERS: PCP Family Medicine; Visit Provider Internal Medicine Medical Oncology
DX: C91.10 Chronic lymphocytic leukemia of B-cell type not having achieved remission (principal); R59.9 Enlarged lymph nodes, unspecified
CPT/HCPCS: 71260; 74177; Q9967

== ENCOUNTER 2022-05-21 10:52 | Emergency (ER) | payer MEDICARE, BC, SELFPAY ==
[2022-05-21] VITALS (31 sets, daily range): BP systolic 93–136; BP diastolic 55–101; PULSE 62–114; RESP 7–20; TEMP 36.2; O2SAT 93–99; BMI 24.7
--- NOTE | 2022-05-21 11:23 | ED.ARRPALP ---
HPI - Arrhythmia/Palpitations General Chief Complaint: Arrhythmia/Palpitations Stated Complaint: Possible AFIB Time Seen by Provider: 05/21/22 11:03 History of Present Illness HPI narrative: This 76-year-old male comes in suspecting recurrent atrial fibrillation. He states that he feels some very slight lightheadedness at times when getting up but denies having any chest pain or shortness of breath. He has had atrial fibrillation in the past and has been cardioverted a couple times. This was last done about 5 months ago. He has seen a sports fitness and wellness director who has him on sotalol 80 mg twice daily. He is also taking Xarelto. Related Data Home Medications Medication Instructions Recorded Confirmed acalabrutinib 100 mg capsule 100 mg PO .Q24 12/07/21 05/21/22 (Calquence) amlodipine 5 mg tablet 5 mg PO .Q24 12/07/21 05/21/22 rivaroxaban 20 mg tablet (Xarelto) 20 mg PO Q24H 12/07/21 05/21/22 alprazolam 0.25 mg tablet 0.25 mg PO DAILY PRN 12/16/21 05/21/22 calcium carbonate 500 mg calcium 500 mg PO DAILY 12/16/21 05/21/22 (1,250 mg) chewable tablet famotidine 20 mg tablet (Pepcid) 20 mg PO DAILY 12/16/21 05/21/22 atorvastatin 20 mg tablet 20 mg PO .QHS 02/15/22 05/21/22 lisinopril 10 mg tablet 10 mg PO BID 02/15/22 05/21/22 magnesium chloride 71.5 mg 71.5 mg PO QDAY 02/15/22 05/21/22 (magnesium chloride) tablet,delayed release (Slow-Mag) sotalol 80 mg tablet 80 mg PO BID 02/15/22 05/21/22 tamsulosin 0.4 mg capsule (Flomax) 0.4 mg PO QDAY 02/15/22 05/21/22 Allergies Allergy/AdvReac Type Severity Reaction Status Date / Time Penicillins Allergy Verified 04/12/22 12:06 Imbruvica AdvReac Intermediate rash Uncoded 04/12/22 12:06 Review of Systems Status of ROS: Reports: 10 or more systems reviewed and unremarkable except as noted in History and below Narrative: Constitutional: No fevers, no weight gain or loss. Eyes: No discharge. No vision changes. HENT: No congestion, no sore throat, no ear pain. Cardiovascular: No chest pain. He suspects atrial fibrillation. Respiratory: No shortness of breath, no wheezes, no cough. Gastrointestinal: No abdominal pain, no vomiting, no diarrhea. Genitourinary: No dysuria, no hematuria. Musculoskeletal: Normal range of motion. Skin: No rashes, no pruritis. Neurological: No dizziness, weakness, sensory change, speech change. Endo/Heme/Allergies: No bruising or bleeding. No polydipsia. Pysch: no suicidality, no anxiety, no insomnia. All other systems reviewed and are negative. [facility] Medical History (Updated 05/21/22 @ 12:57 by Nash Vo MD) Anxiety BPH with obstruction/lower urinary tract symptoms CAD (coronary artery disease) CLL (chronic lymphocytic leukemia) (~08/2018) GERD (gastroesophageal reflux disease) History of cardioversion Hypertension Malignant melanoma Paroxysmal atrial fibrillation Prostate cancer Pulmonary nodules Surgical History (Updated 01/14/22 @ 07:46 by Judy Rendon APRN) History of cataract surgery History of melanoma excision History of tonsillectomy Hx of mitral valve repair S/P mitral valve clip implantation (~2019) Family History Other CHF (congestive heart failure) Hodgkins disease Social History Narrative: he is and here with his . He gets oncology care through [facility]. He gets primary care through Dr. Brian Coronado. He does not smoke. He drinks 1 glass of red wine daily. Smoking Status: Never smoker Do you use any of these nicotine containing products: None Second hand tobacco smoke exposure: No How often do you have a drink containing alcohol: never How often do you have six or more drinks on one occasion: Never AUDIT-C Alcohol total score: 0 Non-prescribed substance use: denies use service: No Exam Narrative: Exam Narrative: Constitutional: Well-developed, well-nourished, no acute distress. HEENT: Normocephalic, atraumatic. Neck: Normal range of motion. Nontender. Supple. Heart: Irregular. No murmurs. Tachycardia. Intact distal pulses. Lungs: Clear to auscultation. No chest discomfort. No wheezes, rhonchi, or rales. Abdomen: Normal bowel sounds. Nontender. No rebound tenderness. Genitalia: Deferred. Back: No midline tenderness. Normal range of motion. Extremities: Normal range of motion. No injury. Skin: Intact. No rash. Warm. No erythema or pallor. Neurologic: No altered sensation. No weakness. Alert and oriented. Psychiatric: No suicidality. No anxiety or depression. No insomnia. Nursing notes and vitals signs are reviewed. Const: Vital Signs, click to edit/add: Vital Signs - 24 hr 05/21/22 11:00 05/21/22 11:55 05/21/22 11:52 Temperature 97.2 F L Pulse Rate 105 H Pulse Rate [Pulse Oximeter] 114 H Respiratory Rate 20 Blood Pressure Blood Pressure [Le ft Upper Arm] 136/97 H Pulse Oximetry 99 98 98 Oxygen Delivery Me thod Room Air Nasal Cannula Oxygen Flow Rate 2 05/21/22 11:55 05/21/22 11:57 05/21/22 11:58 Temperature Pulse Rate 103 H 100 92 Pulse Rate [Pulse Oximeter] Respiratory Rate 15 13 9 L Blood Pressure 129/101 H 118/83 Blood Pressure [Le ft Upper Arm] Pulse Oximetry 97 99 99 Oxygen Delivery Me thod Nasal Cannula Oxygen Flow Rate 3 05/21/22 12:00 05/21/22 12:02 05/21/22 12:05 Temperature Pulse Rate 76 66 65 Pulse Rate [Pulse Oximeter] Respiratory Rate 17 10 L 17 Blood Pressure 112/65 Blood Pressure [Le ft Upper Arm] Pulse Oximetry 93 97 97 Oxygen Delivery Me thod Oxygen Flow Rate 05/21/22 12:07 05/21/22 12:10 05/21/22 12:11 Temperature Pulse Rate 63 62 66 Pulse Rate [Pulse Oximeter] Respiratory Rate 17 17 17 Blood Pressure 100/60 100/66 Blood Pressure [Le ft Upper Arm] Pulse Oximetry 97 96 98 Oxygen Delivery Me thod Oxygen Flow Rate Course Vital Signs Vital signs: Initial Vital Signs Temperature 97.2 F L 05/21/22 11:00 Temperature Source Temporal Artery Scan 05/21/22 11:00 Pulse Rate 114 H 05/21/22 11:00 Pulse Rhythm 05/21/22 11:00 Respiratory Rate 20 05/21/22 11:00 Blood Pressure 136/97 H 05/21/22 11:00 Blood Pressure Mean 110 05/21/22 11:00 Blood Pressure Position Semi-Fowlers 05/21/22 11:00 Pulse Oximetry 99 05/21/22 11:00 Oxygen Delivery Method 05/21/22 11:00 Vital Signs Temperature 97.2 F L 05/21/22 11:00 Pulse Rate 114 H 05/21/22 11:00 Respiratory Rate 20 05/21/22 11:00 Blood Pressure 136/97 H 05/21/22 11:00 Pulse Oximetry 99 05/21/22 11:00 Oxygen Delivery Method 05/21/22 11:00 Temperature 97.2 F L 05/21/22 11:00 Pulse Rate 66 05/21/22 12:11 Respiratory Rate 17 05/21/22 12:11 Blood Pressure 100/66 05/21/22 12:11 Pulse Oximetry 98 05/21/22 12:11 Oxygen Delivery Method 05/21/22 11:55 Oxygen Flow Rate 3 05/21/22 11:55 MDM - Arrhythmia/Palpitations MDM Narrative Medical decision making narrative: This patient comes in with recurrent atrial fibrillation. He has been managed well on sotalol and Xarelto. He suspects that his heart is shifted to atrial fibrillation a couple days ago. He is a candidate for cardioversion as he is anticoagulated. He did not have any thing by mouth today. Anesthesiology was consulted in they were able to come to assist in conscious sedation. After acquiring informed consent the patient received 100 mg of propofol for adequate sedation. Synchronized cardioversion was attempted at 120 joules and was successful on the 1st attempt. He returned to normal sinus rhythm and did have occasional to frequent PACs. Lab results today returned with normal findings. In particular his troponin is 0 and his magnesium is in normal range. I did speak with the sports fitness and wellness director environmental services coordinator at the [facility], Dr. Barlow, to inquire about any potential change in his medications. He stated that the Xarelto and sotalol is a good plan for now and that the patient can follow-up with his primary sports fitness and wellness director otherwise for ongoing management. He is okay to be discharged home. Lab Data Labs: Lab Results 12/16/22 12/16/22 12/16/22 Range/Units 11:30 11:30 11:30 WBC 10.95 (4.50-11.00) K/uL RBC 4.49 (4.30-5.90) m/uL Hgb 12.9 L (13.5-17.5) gm/dL Hct 39.5 (37.0-53.0) % MCV 88 (80-100) fL MCH 29 (26-34) pg MCHC 33 (32-36) gm/dL RDW Coeff of Ekta 14.2 (11.5-15.5) % Plt Count 252 (140-440) K/uL Neut % (Auto) 64.1 (42.0-72.0) % Lymph % (Auto) 28.4 (20-44) % Pratt % (Auto) 5.4 (0.0-11.0) % Eos % (Auto) 1.5 (0.0-7.0) % Baso % (Auto) 0.4 (0.0-3.0) % Neut # (Auto) 7.03 H (1.7-7.0) K/uL Lymph # (Auto) 3.11 H (0.90-2.90) K/uL Pratt # (Auto) 0.60 (0.00-0.90) K/UL Eos # (Auto) 0.16 (0.00-0.50) K/uL Baso # (Auto) 0.04 (0.00-0.30) K/uL Sodium 135 (135-149) mmol/L Potassium 4.1 (3.6-5.1) mmol/L Chloride 106 (96-114) mmol/L Carbon Dioxide 20 (20-32) mmol/L BUN 17 (7-30) mg/dL Creatinine 1.0 (0.5-1.5) mg/dL Estimated Creat Clear 66.93 Estimated GFR 78 ml/min Glucose 98 (60-115) mg/dL Calcium 8.7 (8.4-10.6) mg/dL Magnesium 1.7 (1.5-2.6) mg/dL POC Troponin I 0.01 (0.01-0.04) ng/ml ECG Data Attestation: I personally reviewed and interpreted this ECG as follows: Interpretation: Atrial fibrillation with rapid ventricular response. Rate is 119 beats per minute. There are no specific ST or T-wave abnormalities. Discharge Plan Discharge Clinical Impression: Atrial fibrillation with rapid ventricular response Patient Disposition: Home w/ Parent or Adult Condition: Improved Additional Instructions: Continue current plans. Follow up with primary physician or sports fitness and wellness director as needed for ongoing management. Return if worsening. Prescriptions: No Action Slow-Mag 71.5 mg tablet,delayed release (DR/EC) 71.5 mg PO QDAY sotalol 80 mg tablet 80 mg PO BID tamsulosin [Flomax] 0.4 mg capsule 0.4 mg PO QDAY alprazolam 0.25 mg tablet 0.25 mg PO DAILY PRN calcium carbonate 500 mg calcium (1,250 mg) tablet,chewable 500 mg PO DAILY famotidine [Pepcid] 20 mg tablet 20 mg PO DAILY amlodipine 5 mg tablet 5 mg PO .Q24 Xarelto 20 mg tablet 20 mg PO Q24H Calquence 100 mg capsule 100 mg PO .Q24 lisinopril 10 mg tablet 10 mg PO BID atorvastatin 20 mg tablet 20 mg PO .QHS Follow Up/Referrals: Essie Torres MD [Primary Care Provider] - Stand Alone Forms: [employer] Info Instructions
[2022-05-21] MEDS: 0.9 % SODIUM CHLORIDE 500 ML 500 ML IV (11:45)
--- NOTE | 2022-05-21 11:50 | ED.NURSE ---
Anesthesia at bedside.
[2022-05-21 11:54] LABS: Basophils Absolute Auto 0.04 K/uL (0.00-0.30); Basophils Percent Auto 0.4 % (0.0-3.0); Eosinophils Absolute Auto 0.16 K/uL (0.00-0.50); Eosinophils Percent Auto 1.5 % (0.0-7.0); Hematocrit 39.5 % (37.0-53.0); Hemoglobin* 12.9 gm/dL (13.5-17.5); Immature Granulocytes Abs Auto 0.02 K/uL (0.00-0.30); Immature Granulocytes Pct Auto 0.2 %; Lymphocytes Absolute Auto 3.11 K/uL (0.90-2.90); Lymphocytes Percent Auto 28.4 % (20-44); Mean Corpuscular HGB Conc 33 gm/dL (32-36); Mean Corpuscular Hemoglobin 29 pg (26-34); Mean Corpuscular Volume 88 fL (80-100); Monocytes Percent Auto 5.4 % (0.0-11.0); Neutrophils Absolute Auto 7.03 K/uL (1.7-7.0); Neutrophils Percent Auto 64.1 % (42.0-72.0); Platelet Count* 252 K/uL (140-440); RDW Coefficient of Variation % 14.2 % (11.5-15.5); Red Blood Count 4.49 m/uL (4.30-5.90); White Blood Count* 10.95 K/uL (4.50-11.00)
[2022-05-21 11:57] LABS: Troponin, Point-of-Care* 0.01 ng/ml (0.01-0.04)
--- NOTE | 2022-05-21 11:57 | ED.NURSE ---
Cardioversion by Dr. Vo with Anesthesia and RT present. 150 joules x1. EKG done and given to MD at bedside.
--- NOTE | 2022-05-21 12:08 | W.ANESCHARGE ---
Anesthesia Charges Start Date/Time Anesthesia Start Date: 05/21/22 Anesthesia Start Time: 11:56 Stop Date/Time Anesthesia Stop Date: 05/21/22 Anesthesia Stop Time: 12:06 Summary Emergency: Yes
[2022-05-21 12:10] LABS: Slide Review Reflex No
[2022-05-21 12:11] LABS: Chloride* 106 mmol/L (96-114); Potassium* 4.1 mmol/L (3.6-5.1); Sodium* 135 mmol/L (135-149)
[2022-05-21 12:14] LABS: Blood Urea Nitrogen* 17 mg/dL (7-30); Calcium* 8.7 mg/dL (8.4-10.6); Carbon Dioxide* 20 mmol/L (20-32); Est. Creatinine Clearance* 66.93; Estimated Glomerular Filt Rate 78 ml/min; Glucose* 98 mg/dL (60-115)
[2022-05-21 12:15] LABS: Magnesium* 1.7 mg/dL (1.5-2.6)
--- NOTE | 2022-05-21 12:20 | ED.NURSE ---
Pt awake and coherent. Juice provided with cristian crackers, tolerating well.
== END 2022-05-21 13:12 | disposition home or self-care (01) ==
PROVIDERS: Emergency Provider Emergency Medicine Emergency Medical Services; PCP Family Medicine
DX: I48.20 Chronic atrial fibrillation, unspecified (principal)
CPT/HCPCS: 00410; 36415; 80048; 83735; 84484; 85025; 92960; 93005; 99140; 99285; 99291; J2704; J7120

== ENCOUNTER 2022-06-18 11:33 | Emergency (ER) | payer MEDICARE, BC, SELFPAY ==
[2022-06-18] VITALS (39 sets, daily range): BP systolic 94–145; BP diastolic 59–115; PULSE 60–118; RESP 5–20; TEMP 36.2; O2SAT 91–100; BMI 24.7
[2022-06-18] MEDS: 0.9 % SODIUM CHLORIDE 1000 ml 1,000 ML IV ×2 (13:04→16:44)
[2022-06-18] MEDS: dilTIAZem 5 MG/ML inj 10 MG IVP (13:09)
[2022-06-18 13:39] LABS: Chloride* 107 mmol/L (96-114); Potassium* 4.5 mmol/L (3.6-5.1); Sodium* 139 mmol/L (135-149)
[2022-06-18 13:42] LABS: Creatinine* 1.1 mg/dL (0.5-1.5); Est. Creatinine Clearance* 60.85; Estimated Glomerular Filt Rate 70 ml/min
[2022-06-18 13:43] LABS: Blood Urea Nitrogen* 14 mg/dL (7-30); Calcium* 9.4 mg/dL (8.4-10.6); Carbon Dioxide* 24 mmol/L (20-32); Glucose* 106 mg/dL (60-115); Magnesium* 1.9 mg/dL (1.5-2.6)
--- NOTE | 2022-06-18 14:15 | ED.NURSE ---
LINE PATROLLER at bedside. Consent obtained.
--- NOTE | 2022-06-18 14:25 | ED.NURSE ---
Pt placed on pacer pads, put on zole monitor, school bus monitor, ETCO2, ambu bag within reach, VS going every 5 minutes, IV established, air way/crash cart within reach. Dr Fuentes and AUTOMATION ENGINEERING MANAGER at bedside.
[2022-06-18] MEDS: PROPOFOL 10 MG/ML INJ 140 MG IVP (14:29)
--- NOTE | 2022-06-18 14:29 | ED.NURSE ---
Pt shocked with 120 joules of electricity. Cardioversion was successful. patient now in NSR hr of 60.
--- NOTE | 2022-06-18 14:44 | W.ANESCHARGE ---
Anesthesia Charges Start Date/Time Anesthesia Start Date: 06/18/22 Anesthesia Start Time: 14:00 Stop Date/Time Anesthesia Stop Date: 06/18/22 Anesthesia Stop Time: 14:40 Summary Emergency: Yes Extremes of Age: Over 70-CPT [id number]
--- NOTE | 2022-06-18 14:50 | ED.NURSE ---
Patient is now Alert and oriented, denies pain, no complaints of difficulty breathing.
[2022-06-18] MEDS: MAGNESIUM SULFATE 2 GM/50 ML PIGGYBACK IVPB (14:54)
[2022-06-18] MEDS: SODIUM CHLORIDE 0.9 % (FLUSH) 10 ML SYRINGE 5 ML IVF ×2 (16:45)
--- NOTE | 2022-06-18 21:49 | ED_ITS ---
HPI - Arrhythmia/Palpitations General Chief Complaint: Arrhythmia/Palpitations Stated Complaint: Afib Time Seen by Provider: 06/18/22 12:03 History of Present Illness HPI narrative: 76-year-old man presenting to the emergency department with spouse with concern of paroxysmal atrial fibrillation. Feels generally weaker and particularly exertionally tired. No lightheadedness No actual pain. History of numerous electrocardioversions. More remote history of a failed ablation. Last seen in this department on May 14 where received successful electrical cardioversion. Has been rate controlled with sotalol since late last year. Has maintained anticoagulation status with daily rivaroxaban. Started feeling irregular heart rate yesterday. Last ate or drink anything yesterday evening around 7:00 p.m. no excessive alcohol. No noted stimulants. Related Data Home Medications Medication Instructions Recorded Confirmed acalabrutinib 100 mg capsule 100 mg PO .Q24 12/07/21 05/21/22 (Calquence) amlodipine 5 mg tablet 5 mg PO .Q24 12/07/21 05/21/22 rivaroxaban 20 mg tablet (Xarelto) 20 mg PO Q24H 12/07/21 05/21/22 alprazolam 0.25 mg tablet 0.25 mg PO DAILY PRN 12/16/21 05/21/22 calcium carbonate 500 mg calcium 500 mg PO DAILY 12/16/21 05/21/22 (1,250 mg) chewable tablet famotidine 20 mg tablet (Pepcid) 20 mg PO DAILY 12/16/21 05/21/22 atorvastatin 20 mg tablet 20 mg PO .QHS 02/15/22 05/21/22 lisinopril 10 mg tablet 10 mg PO BID 02/15/22 05/21/22 magnesium chloride 71.5 mg 71.5 mg PO QDAY 02/15/22 05/21/22 (magnesium chloride) tablet,delayed release (Slow-Mag) sotalol 80 mg tablet 80 mg PO BID 02/15/22 05/21/22 tamsulosin 0.4 mg capsule (Flomax) 0.4 mg PO QDAY 02/15/22 05/21/22 Allergies Allergy/AdvReac Type Severity Reaction Status Date / Time Penicillins Allergy Verified 04/12/22 12:06 Imbruvica AdvReac Intermediate rash Uncoded 04/12/22 12:06 Review of Systems Status of ROS: Reports: 10 or more systems reviewed and unremarkable except as noted in History and below [facility] Medical History Anxiety BPH with obstruction/lower urinary tract symptoms CAD (coronary artery disease) CLL (chronic lymphocytic leukemia) (~08/2018) GERD (gastroesophageal reflux disease) History of cardioversion Hypertension Malignant melanoma Paroxysmal atrial fibrillation Prostate cancer Pulmonary nodules Surgical History History of cataract surgery History of melanoma excision History of tonsillectomy Hx of mitral valve repair S/P mitral valve clip implantation (~2019) Family History Other CHF (congestive heart failure) Hodgkins disease Social History Narrative: he is and here with his . He gets oncology care through [facility]. He gets primary care through Dr. Brian Coronado. He does not smoke. He drinks 1 glass of red wine daily. Smoking Status: Never smoker Do you use any of these nicotine containing products: None Second hand tobacco smoke exposure: No How often do you have a drink containing alcohol: never How often do you have six or more drinks on one occasion: Never AUDIT-C Alcohol total score: 0 Non-prescribed substance use: denies use service: No Exam Narrative: Exam Narrative: Pleasantly talkative. NAD. Fully alert and oriented. He is breathing easily. Cranial nerves 2-12 look to be intact. Oropharynx moist. Lungs are clear. Heart is irregularly irregular in an elevated rate. No JVD. Carefully repaired dentition. Skin is warm and dry. Lower extremities are without edema. Well perfused peripherally. Abdomen is soft nontender. Const: Vital Signs, click to edit/add: Vital Signs - 24 hr 06/18/22 11:53 06/18/22 11:58 06/18/22 12:00 Temperature 97.2 F L Pulse Rate 96 Pulse Rate [Right Pulse Oximeter] 118 H Respiratory Rate 18 Blood Pressure 123/98 H Blood Pressure [Ri ght Upper Arm] 123/98 H Pulse Oximetry 94 99 Oxygen Delivery Me thod Room Air 06/18/22 12:02 06/18/22 12:15 06/18/22 12:30 Temperature Pulse Rate 110 H 103 H 107 H Pulse Rate [Right Pulse Oximeter] Respiratory Rate Blood Pressure 125/102 H Blood Pressure [Ri ght Upper Arm] Pulse Oximetry 99 99 100 Oxygen Delivery Me thod 06/18/22 12:32 06/18/22 12:45 06/18/22 13:00 Temperature Pulse Rate 101 H 112 H 98 Pulse Rate [Right Pulse Oximeter] Respiratory Rate Blood Pressure 116/86 Blood Pressure [Ri ght Upper Arm] Pulse Oximetry 100 100 99 Oxygen Delivery Me thod 06/18/22 13:04 06/18/22 13:10 06/18/22 13:12 Temperature Pulse Rate 102 H 93 82 Pulse Rate [Right Pulse Oximeter] Respiratory Rate Blood Pressure 94/74 112/70 107/76 Blood Pressure [Ri ght Upper Arm] Pulse Oximetry 97 98 99 Oxygen Delivery Me thod 06/18/22 13:15 06/18/22 13:22 06/18/22 13:30 Temperature Pulse Rate 89 92 96 Pulse Rate [Right Pulse Oximeter] Respiratory Rate Blood Pressure 128/71 Blood Pressure [Ri ght Upper Arm] Pulse Oximetry 98 99 99 Oxygen Delivery Me thod 06/18/22 13:32 06/18/22 13:49 06/18/22 13:50 Temperature Pulse Rate 85 93 105 H Pulse Rate [Right Pulse Oximeter] Respiratory Rate Blood Pressure 122/74 115/91 H Blood Pressure [Ri ght Upper Arm] Pulse Oximetry 99 97 99 Oxygen Delivery Me thod 06/18/22 13:52 06/18/22 14:00 06/18/22 14:02 Temperature Pulse Rate 106 H 98 109 H Pulse Rate [Right Pulse Oximeter] Respiratory Rate Blood Pressure 106/59 L 127/74 Blood Pressure [Ri ght Upper Arm] Pulse Oximetry 99 99 99 Oxygen Delivery Me thod 06/18/22 14:07 06/18/22 14:12 06/18/22 14:15 Temperature Pulse Rate 102 H 87 89 Pulse Rate [Right Pulse Oximeter] Respiratory Rate Blood Pressure 143/101 H 128/90 H Blood Pressure [Ri ght Upper Arm] Pulse Oximetry 99 100 99 Oxygen Delivery Me thod 06/18/22 14:17 06/18/22 14:22 06/18/22 14:27 Temperature Pulse Rate 96 95 82 Pulse Rate [Right Pulse Oximeter] Respiratory Rate 7 L Blood Pressure 129/98 H 125/104 H 144/115 H Blood Pressure [Ri ght Upper Arm] Pulse Oximetry 99 99 100 Oxygen Delivery Me od 06/18/22 14:30 06/18/22 14:32 06/18/22 14:33 Temperature Pulse Rate 106 H 63 63 Pulse Rate [Right Pulse Oximeter] Respiratory Rate 10 L 20 19 Blood Pressure 145/86 H 109/72 Blood Pressure [Ri ght Upper Arm] Pulse Oximetry 100 91 [facility] 14:34 06/18/22 14:37 06/18/22 14:42 Temperature Pulse Rate 62 62 63 Pulse Rate [Right Pulse Oximeter] Respiratory Rate 18 13 Blood Pressure 116/68 105/65 100/61 Blood Pressure [Ri ght Upper Arm] Pulse Oximetry 98 98 98 [facility] 06/18/22 14:45 06/18/22 14:47 06/18/22 14:52 Temperature Pulse Rate 61 61 62 Pulse Rate [Right Pulse Oximeter] Respiratory Rate 11 L 5 L 8 L Blood Pressure 108/64 122/74 Blood Pressure [Ri ght Upper Arm] Pulse Oximetry 98 98 98 [facility] 06/18/22 14:57 06/18/22 15:00 06/18/22 16:17 Temperature Pulse Rate 63 60 Pulse Rate [Right Pulse Oximeter] Respiratory Rate 5 L 9 L Blood Pressure 116/64 Blood Pressure [Ri ght Upper Arm] Pulse Oximetry 97 98 [facility] 06/18/22 16:17 Temperature Pulse Rate Pulse Rate [Right Pulse Oximeter] Respiratory Rate Blood Pressure Blood Pressure [Ri ght Upper Arm] Pulse Oximetry Oxygen Delivery Me od Room Air Documenting provider has reviewed patient's vital signs: yes Course Vital Signs Vital signs: Initial Vital Signs Temperature 97.2 F L 06/18/22 11:53 Temperature Source Temporal Artery Scan 06/18/22 11:53 Pulse Rate 118 H 06/18/22 11:53 Pulse Rhythm 06/18/22 11:53 Respiratory Rate 18 06/18/22 11:53 Blood Pressure 123/98 H 06/18/22 11:53 Blood Pressure Mean 106 06/18/22 11:53 Blood Pressure Position Sitting 06/18/22 11:53 Pulse Oximetry 94 01/13/23 11:53 Oxygen Delivery Method 06/18/22 11:53 Vital Signs Temperature 97.2 F L 06/18/22 11:53 Pulse Rate 118 H 06/18/22 11:53 Respiratory Rate 18 06/18/22 11:53 Blood Pressure 123/98 H 06/18/22 11:53 Pulse Oximetry 94 06/18/22 11:53 Oxygen Delivery Method 06/18/22 11:53 Temperature 97.2 F L 06/18/22 11:53 Pulse Rate 60 06/18/22 15:00 Respiratory Rate 9 L 06/18/22 15:00 Blood Pressure 116/64 06/18/22 14:57 Pulse Oximetry 100 06/18/22 16:17 Oxygen Delivery Method 06/18/22 16:17 MDM - Arrhythmia/Palpitations MDM Narrative Medical decision making narrative: I am anticipating need again for cardioversion. Do not see recent chemistries; will check that. In preparation for potential cardioversion though will hydrate with IV fluids; possible might convert spontaneously. Is tachycardic and will also trial diltiazem 10 mg IV. Heart rate does drop intermittently below 100 but Mr. Jensen still is symptomatic and remains in atrial fibrillation. Magnesium 1.9. Is ordered for 2 g IV prior to cardioversion. Have contacted Anesthesia to assist with cardioversion. Informed consent obtained. Moderate sedation given with propofol. Please see anesthesia notes. Defibrillator shock provided synchronized cardioversion at 120 joules. Normal sinus rhythm returned. Patient woke. Feeling better Repeat EKG postprocedural shows sinus rhythm. Somewhat bradycardic with somewhat prolonged QT interval. Prior to cardioversion QT around 370-380 cinthia seconds. Postprocedure EKG shows QT at 492. Prior to receiving this EKG I did discuss case with Cardiology at [place]. Recommendations are to continue current medications anticipating possible increase in sotalol but would like to discuss this with outpatient follow-up with primary composite worker. I discuss this further with Mr. Jensen he notes how became rather bradycardic at higher dosings of sotalol. Medical Records Attestation: I reviewed the patient's medical records. Lab Data Attestation: I reviewed the patient's lab results. Labs: Lab Results 06/18/22 Range/Units 12:00 Sodium 139 (135-149) mmol/L Potassium 4.5 (3.6-5.1) mmol/L Chloride 107 (96-114) mmol/L Carbon Dioxide 24 (20-32) mmol/L BUN 14 (7-30) mg/dL Creatinine 1.1 (0.5-1.5) mg/dL Estimated Creat Clear 60.85 Estimated GFR 70 ml/min Glucose 106 (60-115) mg/dL Calcium 9.4 (8.4-10.6) mg/dL Magnesium 1.9 (1.5-2.6) mg/dL ECG Data Attestation: I personally reviewed and interpreted this ECG as follows: (EKG 1. Looks to be atrial fibrillation with PVC rate of 87 EKG 2. Shortly after more clear atrial fibrillation rate of 117 RVR. EKG 3. This is after electrical cardioversion. Shows normal sinus now with notably prolonged QT at 492. Background of regular dosing of sotalol and diltiazem given in ED) Critical Care Time Critical Care Time Critical Care Time: Yes Attestation: The patient required my highest level preparedness to intervene emergently and I personally spent this critical care time directly and personally managing the patient. This critical care time included: Obtaining a history; Examining the patient; Pulse oximetry; Ordering and reviewing of studies; Arranging urgent treatment with development of a management plan; Evaluation of patients response to treatment; Frequent reassessment discussions with other providers. This critical care time was performed to assess and manage the high probability of imminent life-threatening deterioration that could result in multiorgan failure. It was exclusive of separate billable procedures and treating other patients and teaching time. Total Critical Care Time in Minutes: 45 Discharge Plan Discharge Clinical Impression: Atrial fibrillation Patient Disposition: Home w/ Parent or Adult Condition: Improved Additional Instructions: Continue to focus on hydration. Do not be afraid of exercise. A little heart pumping exercise daily does most bodies good. Return for recurrence of symptoms, chest pain, shortness of breath. I placed a call to Cardiology at [facility]. They would like you to continue your current medication dosing. They suspect that you might have to increase your sotalol but would like you to discuss that with Dr. Vizcaino. Prescriptions: No Action Slow-Mag 71.5 mg tablet,delayed release (DR/EC) 71.5 mg PO QDAY sotalol 80 mg tablet 80 mg PO BID tamsulosin [Flomax] 0.4 mg capsule 0.4 mg PO QDAY alprazolam 0.25 mg tablet 0.25 mg PO DAILY PRN calcium carbonate 500 mg calcium (1,250 mg) tablet,chewable 500 mg PO DAILY famotidine [Pepcid] 20 mg tablet 20 mg PO DAILY amlodipine 5 mg tablet 5 mg PO .Q24 Xarelto 20 mg tablet 20 mg PO Q24H Calquence 100 mg capsule 100 mg PO .Q24 lisinopril 10 mg tablet 10 mg PO BID atorvastatin 20 mg tablet 20 mg PO .QHS Follow Up/Referrals: Essie Torres MD [Primary Care Provider] - Stand Alone Forms: [facility] Info Instructions
== END 2022-06-18 15:19 | disposition home or self-care (01) ==
PROVIDERS: Emergency Provider Family Medicine; PCP Family Medicine
DX: I48.91 Unspecified atrial fibrillation (principal)
CPT/HCPCS: 00410; 36415; 80048; 83735; 92960; 93005; 94761; 96365; 96375; 99100; 99140; 99284; 99291; J2704; J3475; J7030

== ENCOUNTER 2022-07-30 10:30 | Outpatient (RCR) | payer MEDICARE, BC, SELFPAY ==
[2022-02-15 12:30] LABS: Basophils Absolute Auto 0.03 K/uL (0.00-0.30); Basophils Percent Auto 0.3 % (0.0-3.0); Eosinophils Absolute Auto 0.25 K/uL (0.00-0.50); Eosinophils Percent Auto 2.9 % (0.0-7.0); Hemoglobin* 10.9 gm/dL (13.5-17.5); Immature Granulocytes Abs Auto 0.02 K/uL (0.00-0.30); Lymphocytes Absolute Auto 2.05 K/uL (0.90-2.90); Lymphocytes Percent Auto 23.4 % (20-44); Mean Corpuscular HGB Conc 31 gm/dL (32-36); Mean Corpuscular Hemoglobin 28 pg (26-34); Mean Corpuscular Volume 89 fL (80-100); Monocytes Percent Auto 8.7 % (0.0-11.0); Neutrophils Absolute Auto 5.64 K/uL (1.7-7.0); Neutrophils Percent Auto 64.5 % (42.0-72.0); Platelet Count* 230 K/uL (140-440); RDW Coefficient of Variation % 13.9 % (11.5-15.5); Red Blood Count 3.93 m/uL (4.30-5.90); White Blood Count* 8.75 K/uL (4.50-11.00)
[2022-02-15 12:44] LABS: Slide Review Reflex No
[2022-02-15 13:16] LABS: Chloride* 104 mmol/L (96-114); Sodium* 136 mmol/L (135-149)
[2022-02-15 13:17] LABS: Potassium* 4.4 mmol/L (3.6-5.1)
[2022-02-15 13:18] LABS: Bilirubin Total* 1.4 mg/dL (0.1-1.5); Carbon Dioxide* 24 mmol/L (20-32); Estimated Glomerular Filt Rate 78 ml/min
[2022-02-15 13:19] LABS: Alanine Aminotransferase* 18 U/L (4-50); Alkaline Phosphatase* 75 U/L (40-150); Aspartate Amino Transferase* 24 U/L (12-35); Blood Urea Nitrogen* 15 mg/dL (7-30); Calcium* 8.8 mg/dL (8.4-10.6); Glucose* 98 mg/dL (60-115); Lactate Dehydrogenase* 399 U/L (313-618); Total Protein* 6.5 g/dL (6.0-8.3)
[2022-03-15 10:18] LABS: Basophils Absolute Auto 0.03 K/uL (0.00-0.30); Basophils Percent Auto 0.4 % (0.0-3.0); Eosinophils Absolute Auto 0.22 K/uL (0.00-0.50); Eosinophils Percent Auto 2.9 % (0.0-7.0); Hematocrit 36.4 % (37.0-53.0); Hemoglobin* 11.7 gm/dL (13.5-17.5); Immature Granulocytes Abs Auto 0.02 K/uL (0.00-0.30); Lymphocytes Absolute Auto 1.85 K/uL (0.90-2.90); Lymphocytes Percent Auto 24.5 % (20-44); Mean Corpuscular HGB Conc 32 gm/dL (32-36); Mean Corpuscular Hemoglobin 29 pg (26-34); Mean Corpuscular Volume 89 fL (80-100); Monocytes Percent Auto 6.1 % (0.0-11.0); Neutrophils Absolute Auto 4.96 K/uL (1.7-7.0); Neutrophils Percent Auto 65.8 % (42.0-72.0); Platelet Count* 208 K/uL (140-440); RDW Coefficient of Variation % 14.2 % (11.5-15.5); Red Blood Count 4.11 m/uL (4.30-5.90); White Blood Count* 7.54 K/uL (4.50-11.00)
[2022-03-15 10:23] LABS: Slide Review Reflex No
[2022-03-15 10:32] LABS: Albumin* 4.1 g/dL (3.3-5.0); Chloride* 102 mmol/L (96-114); Sodium* 136 mmol/L (135-149)
[2022-03-15 10:33] LABS: Potassium* 4.3 mmol/L (3.6-5.1)
[2022-03-15 10:35] LABS: Alanine Aminotransferase* 17 U/L (4-50); Alkaline Phosphatase* 78 U/L (40-150); Aspartate Amino Transferase* 27 U/L (12-35); Bilirubin Total* 1.3 mg/dL (0.1-1.5); Blood Urea Nitrogen* 10 mg/dL (7-30); Calcium* 8.8 mg/dL (8.4-10.6); Carbon Dioxide* 26 mmol/L (20-32); Creatinine* 0.9 mg/dL (0.5-1.5); Estimated Glomerular Filt Rate 89 ml/min; Glucose* 152 mg/dL (60-115); Lactate Dehydrogenase* 408 U/L (313-618); Total Protein* 6.4 g/dL (6.0-8.3)
--- NOTE | 2022-03-30 10:52 | ONC.NURNOTE ---
patient requested copy of last weeks CT Scan for upcoming cardiology appt- Outside Sales requested patient bring copies of recent imaging reviewed results with patient prior to providing copy of results
[2022-04-12 11:04] LABS: Basophils Absolute Auto 0.04 K/uL (0.00-0.30); Basophils Percent Auto 0.5 % (0.0-3.0); Eosinophils Absolute Auto 0.16 K/uL (0.00-0.50); Eosinophils Percent Auto 2.1 % (0.0-7.0); Hematocrit 36.9 % (37.0-53.0); Hemoglobin* 11.7 gm/dL (13.5-17.5); Immature Granulocytes Abs Auto 0.02 K/uL (0.00-0.30); Immature Granulocytes Pct Auto 0.3 %; Lymphocytes Absolute Auto 2.06 K/uL (0.90-2.90); Lymphocytes Percent Auto 26.5 % (20-44); Mean Corpuscular HGB Conc 32 gm/dL (32-36); Mean Corpuscular Hemoglobin 28 pg (26-34); Mean Corpuscular Volume 89 fL (80-100); Monocytes Percent Auto 6.7 % (0.0-11.0); Neutrophils Absolute Auto 4.98 K/uL (1.7-7.0); Neutrophils Percent Auto 63.9 % (42.0-72.0); Platelet Count* 233 K/uL (140-440); RDW Coefficient of Variation % 14.3 % (11.5-15.5); Red Blood Count 4.17 m/uL (4.30-5.90); White Blood Count* 7.78 K/uL (4.50-11.00)
[2022-04-12 11:11] LABS: Slide Review Reflex No
[2022-05-10 11:01] LABS: Basophils Absolute Auto 0.03 K/uL (0.00-0.30); Basophils Percent Auto 0.3 % (0.0-3.0); Eosinophils Absolute Auto 0.22 K/uL (0.00-0.50); Eosinophils Percent Auto 2.5 % (0.0-7.0); Hematocrit 39.6 % (37.0-53.0); Hemoglobin* 12.6 gm/dL (13.5-17.5); Immature Granulocytes Abs Auto 0.02 K/uL (0.00-0.30); Immature Granulocytes Pct Auto 0.2 %; Lymphocytes Absolute Auto 2.32 K/uL (0.90-2.90); Lymphocytes Percent Auto 26.9 % (20-44); Mean Corpuscular HGB Conc 32 gm/dL (32-36); Mean Corpuscular Hemoglobin 28 pg (26-34); Mean Corpuscular Volume 89 fL (80-100); Monocytes Percent Auto 6.1 % (0.0-11.0); Neutrophils Absolute Auto 5.51 K/uL (1.7-7.0); Platelet Count* 252 K/uL (140-440); RDW Coefficient of Variation % 14.1 % (11.5-15.5); Red Blood Count 4.43 m/uL (4.30-5.90); White Blood Count* 8.63 K/uL (4.50-11.00)
[2022-05-10 11:06] LABS: Slide Review Reflex No
[2022-05-10 11:23] LABS: Albumin* 4.4 g/dL (3.3-5.0); Chloride* 104 mmol/L (96-114); Sodium* 140 mmol/L (135-149)
[2022-05-10 11:25] LABS: Aspartate Amino Transferase* 24 U/L (12-35); Bilirubin Total* 1.4 mg/dL (0.1-1.5); Carbon Dioxide* 28 mmol/L (20-32); Estimated Glomerular Filt Rate 78 ml/min; Total Protein* 6.7 g/dL (6.0-8.3)
[2022-05-10 11:26] LABS: Alanine Aminotransferase* 19 U/L (4-50); Alkaline Phosphatase* 80 U/L (40-150); Blood Urea Nitrogen* 13 mg/dL (7-30); Glucose* 74 mg/dL (60-115)
[2022-05-10 12:32] LABS: Potassium* 4.2 mmol/L (3.6-5.1)
--- NOTE | 2022-05-11 14:38 | ONC.NURNOTE ---
Labs reviewed by provider and called to patient/ as stable next labs appt and MD appt discussed no medication change needed
[2022-06-14 09:23] LABS: Basophils Absolute Auto 0.04 K/uL (0.00-0.30); Basophils Percent Auto 0.4 % (0.0-3.0); Eosinophils Percent Auto 3.1 % (0.0-7.0); Hematocrit 38.9 % (37.0-53.0); Hemoglobin* 12.4 gm/dL (13.5-17.5); Immature Granulocytes Abs Auto 0.02 K/uL (0.00-0.30); Immature Granulocytes Pct Auto 0.2 %; Lymphocytes Absolute Auto 2.37 K/uL (0.90-2.90); Lymphocytes Percent Auto 24.7 % (20-44); Mean Corpuscular HGB Conc 32 gm/dL (32-36); Mean Corpuscular Hemoglobin 29 pg (26-34); Mean Corpuscular Volume 90 fL (80-100); Monocytes Percent Auto 6.8 % (0.0-11.0); Neutrophils Absolute Auto 6.22 K/uL (1.7-7.0); Neutrophils Percent Auto 64.8 % (42.0-72.0); Platelet Count* 228 K/uL (140-440); RDW Coefficient of Variation % 14.3 % (11.5-15.5); Red Blood Count 4.33 m/uL (4.30-5.90)
[2022-06-14 09:27] LABS: Slide Review Reflex No
--- NOTE | 2022-06-14 16:30 | ONC.NURNOTE ---
called labs to pt. No change. continue with meds as perscribed. F/U apt 07/12 with Labs. pt aware.
--- NOTE | 2022-07-05 10:23 | ONC.NURNOTE ---
Coordination of care planning regarding new malignant melanoma diagnosis: Freeman reports a 1.1 mm depth of lesion on his back which means >1.0 mm he will need surgical follow up Freeman has the following questions prior to surgery (date is pending): -when to hold calquence prior to surgery -when to hold eliquis - he has enlarged lymph nodes that Dr Hurtado had been monitoring with CT imaging- continue to be enlarged- should these be biopsied at the time of his surgery? -should he get another CT Scan? -Afib has been a challenge and he was recently in the ER for management group underwriter will be in touch with the [facility] team regarding the next steps
[2022-07-12 09:21] LABS: Basophils Absolute Auto 0.03 K/uL (0.00-0.30); Basophils Percent Auto 0.3 % (0.0-3.0); Eosinophils Absolute Auto 0.22 K/uL (0.00-0.50); Eosinophils Percent Auto 2.3 % (0.0-7.0); Hematocrit 39.7 % (37.0-53.0); Hemoglobin* 12.6 gm/dL (13.5-17.5); Immature Granulocytes Abs Auto 0.02 K/uL (0.00-0.30); Immature Granulocytes Pct Auto 0.2 %; Lymphocytes Absolute Auto 2.82 K/uL (0.90-2.90); Lymphocytes Percent Auto 29.5 % (20-44); Mean Corpuscular HGB Conc 32 gm/dL (32-36); Mean Corpuscular Hemoglobin 29 pg (26-34); Mean Corpuscular Volume 92 fL (80-100); Neutrophils Absolute Auto 5.89 K/uL (1.7-7.0); Neutrophils Percent Auto 61.7 % (42.0-72.0); Platelet Count* 238 K/uL (140-440); RDW Coefficient of Variation % 14.2 % (11.5-15.5); Red Blood Count 4.31 m/uL (4.30-5.90); White Blood Count* 9.55 K/uL (4.50-11.00)
[2022-07-12 09:23] LABS: Slide Review Reflex No
[2022-07-12 09:33] LABS: Chloride* 106 mmol/L (96-114); Potassium* 4.2 mmol/L (3.6-5.1); Sodium* 139 mmol/L (135-149)
[2022-07-12 09:35] LABS: Bilirubin Total* 1.3 mg/dL (0.1-1.5); Carbon Dioxide* 28 mmol/L (20-32); Estimated Glomerular Filt Rate 78 ml/min
[2022-07-12 09:36] LABS: Alanine Aminotransferase* 17 U/L (4-50); Alkaline Phosphatase* 65 U/L (40-150); Aspartate Amino Transferase* 22 U/L (12-35); Blood Urea Nitrogen* 14 mg/dL (7-30); Calcium* 8.7 mg/dL (8.4-10.6); Glucose* 84 mg/dL (60-115); Total Protein* 6.4 g/dL (6.0-8.3)
[2022-07-12 16:40] LABS: Lactate Dehydrogenase* 210 U/L (120-246)
--- NOTE | 2022-07-20 13:28 | ONC.NURNOTE ---
Calquence plan reviewed with Dr Barnett yesterday and discussed with Freeman Since surgery no longer doing a lymph node dissection- surg considered minor and Freeman has instructions to hold his Calquence 3 days prior, the day of and 3 days post procedure holding Calquence Jul 24, , excisison Jul 27 continue to hold Jul 28, , 24 restart Jul 31 labs due 07/26 and 07/29- monitoring only-no plans to change the medication schedule Freeman is aware of the schedule
[2022-07-26 10:49] LABS: Basophils Absolute Auto 0.03 K/uL (0.00-0.30); Basophils Percent Auto 0.4 % (0.0-3.0); Eosinophils Absolute Auto 0.23 K/uL (0.00-0.50); Hematocrit 38.3 % (37.0-53.0); Hemoglobin* 12.5 gm/dL (13.5-17.5); Immature Granulocytes Abs Auto 0.03 K/uL (0.00-0.30); Immature Granulocytes Pct Auto 0.4 %; Mean Corpuscular HGB Conc 33 gm/dL (32-36); Mean Corpuscular Hemoglobin 29 pg (26-34); Mean Corpuscular Volume 90 fL (80-100); Monocytes Percent Auto 7.6 % (0.0-11.0); Neutrophils Absolute Auto 5.57 K/uL (1.7-7.0); Neutrophils Percent Auto 71.6 % (42.0-72.0); Platelet Count* 216 K/uL (140-440); RDW Coefficient of Variation % 13.7 % (11.5-15.5); Red Blood Count 4.25 m/uL (4.30-5.90); White Blood Count* 7.77 K/uL (4.50-11.00)
[2022-07-26 10:53] LABS: Slide Review Reflex No
--- NOTE | 2022-07-26 16:42 | ONC.NURNOTE ---
Lab results reviewed by Dr Barnett and called to Freeman as stable Due to heavy snow storm predicted for later this week, next lab appt moved to Tuesday
[2022-07-30 11:09] LABS: Basophils Absolute Auto 0.05 K/uL (0.00-0.30); Basophils Percent Auto 0.5 % (0.0-3.0); Eosinophils Absolute Auto 0.43 K/uL (0.00-0.50); Eosinophils Percent Auto 4.3 % (0.0-7.0); Hematocrit 40.7 % (37.0-53.0); Hemoglobin* 13.4 gm/dL (13.5-17.5); Immature Granulocytes Abs Auto 0.12 K/uL (0.00-0.30); Immature Granulocytes Pct Auto 1.2 %; Lymphocytes Percent Auto 19.3 % (20-44); Mean Corpuscular HGB Conc 33 gm/dL (32-36); Mean Corpuscular Hemoglobin 30 pg (26-34); Mean Corpuscular Volume 90 fL (80-100); Monocytes Percent Auto 13.9 % (0.0-11.0); Neutrophils Absolute Auto 6.03 K/uL (1.7-7.0); Neutrophils Percent Auto 60.8 % (42.0-72.0); Platelet Count* 192 K/uL (140-440); RDW Coefficient of Variation % 13.9 % (11.5-15.5); Red Blood Count 4.55 m/uL (4.30-5.90); White Blood Count* 9.92 K/uL (4.50-11.00)
[2022-07-30 11:20] LABS: Slide Review Reflex Yes
[2022-07-30 11:58] LABS: Slide Review Acceptable Review (Acceptable)
--- NOTE | 2022-07-30 16:06 | ONC.NURNOTE ---
Patient comes in after his biopsy and after having his Calquence on hold since 08/03. States he sure could tell his medication works stating I've had several symptoms of CLL sure show up. Due to restart tomorrow per patient-stated bx went well but hasn't gotten pathology back yet. Increased fatigue Night sweats Lymph nodes all enlarged especially the neck ones got MUCH bigger Also did state he believes the Afib is from his Calquence stating his heart seems to have been regular the whole time he's been off drug
--- NOTE | 2022-08-09 13:14 | ONC.NURNOTE ---
Patient reports URI symptoms with fevers 101.8 and Tuesday feeling better today, currently AFeb has COVID patient has not checked self for COVId they do not have another test at home, their daughter is bringing more to the house lab appt on hold until symptoms have resolved
== END 2022-08-14 23:59 | disposition home or self-care (01) ==
LOC: CCIC 10:30
PROVIDERS: Clinical Nurse Specialist; Internal Medicine Hematology & Oncology; Internal Medicine Medical Oncology; PCP Family Medicine; Referring Provider Family Medicine; Visit Provider Nurse Practitioner Family
DX: C91.10 Chronic lymphocytic leukemia of B-cell type not having achieved remission (principal)
CPT/HCPCS: 36415; 80053; 83615; 85025; 99212; 99214; 99215

== ENCOUNTER 2022-09-20 11:13 | Emergency (ER) | payer MEDICARE, BC, SELFPAY ==
[2022-09-20 11:24] VITALS: BP 136/96; PULSE 109; RESP 18; TEMP 35.9; O2SAT 99; BMI 24.3
--- NOTE | 2022-09-20 11:46 | ED_ITS ---
HPI - Arrhythmia/Palpitations General Time Seen by Provider: 11:46 <Sharon Ballard MD - Last Filed: 09/20/22 14:12> Date Seen: 09/20/22 <Sharon Ballard MD - Last Filed: 09/20/22 14:12> Chief Complaint: Arrhythmia/Palpitations <Sharon Ballard MD - Last Filed: 09/20/22 14:12> Stated Complaint: Thinks he's in A fib <Sharon Ballard MD - Last Filed: 09/20/22 14:12> Time Seen by Provider: 09/20/22 11:38 <Sharon Ballard MD - Last Filed: 09/20/22 14:12> Source: patient, RN notes reviewed and old records reviewed <Sharon Serna MD - Last Filed: 09/20/22 14:12> Mode of arrival: ambulatory <Sharon Ballard MD - Last Filed: 09/20/22 14:12> Limitations: no limitations <Sharon Ballard MD - Last Filed: 09/20/22 14:12> History of Present Illness HPI narrative: Patient is a 77-year-old male coming in with atrial fibrillation since last night. He states it came on hard last night, felt short of breath with the onset. He has had a few episodes that were short-lived maybe a couple hours total over the last few months. This 1 has not gone away. He has not eaten anything since last night. He is on Xarelto and has not missed any doses. He states he was hospitalized at the end of January at [place] where sotalol was initiated for his atrial fibrillation. He could not tolerate the 120 mg dose which did suppress his atrial fibrillation, states that it prolonged his QT interval. He is not feeling short of breath now, no chest pain. He states there is no rhyme or reason for why his atrial fibrillation comes. He notes he was cardioverted here both in May and June. Looking back in his records, I see 120 joules worked in May. He would like to be cardioverted. Dr. Santana is his primary clinical research management associate at [place]. He has had an ablation before but states they could not cauterize all of the pathway. <Sharon Ballard MD - Last Filed: 09/20/22 14:12> MD complaint: atrial fibrillation <Sharon Ballard MD - Last Filed: 09/20/22 14: 12> Related Data Home Medications: Home Medications Medication Instructions Recorded Confirmed acalabrutinib 100 mg capsule 100 mg PO .Q24 12/07/21 09/13/22 (Calquence) amlodipine 5 mg tablet 5 mg PO .Q24 12/07/21 09/13/22 rivaroxaban 20 mg tablet (Xarelto) 20 mg PO Q24H 12/07/21 09/13/22 alprazolam 0.25 mg tablet 0.25 mg PO DAILY PRN 12/16/21 09/13/22 famotidine 20 mg tablet (Pepcid) 20 mg PO DAILY 12/16/21 09/13/22 atorvastatin 20 mg tablet 20 mg PO .QHS 02/15/22 09/13/22 lisinopril 10 mg tablet 10 mg PO BID 02/15/22 09/13/22 magnesium chloride 71.5 mg 71.5 mg PO QDAY 02/15/22 09/13/22 (magnesium chloride) tablet,delayed release (Slow-Mag) sotalol 80 mg tablet 80 mg PO BID 02/15/22 09/13/22 tamsulosin 0.4 mg capsule (Flomax) 0.4 mg PO QDAY 02/15/22 09/13/22 <Sharon Ballard MD - Last Filed: 09/20/22 14:12> Allergies/Adverse Reactions: Allergies Allergy/AdvReac Type Severity Reaction Status Date / Time Penicillins Allergy Verified 07/12/22 11:17 Imbruvica AdvReac Intermediate rash Uncoded 04/12/22 12:06 <Sharon Ballard MD - Last Filed: 09/20/22 14:12> Review of Systems Status of ROS: Reports: 10 or more systems reviewed and unremarkable except as noted in History and below <Sharon Ballard MD - Last Filed: 09/20/22 14:12> [facility] Medical History: Medical History Anxiety ?F41.9 - Anxiety disorder, unspecified (ICD-10) BPH with obstruction/lower urinary tract symptoms ?N40.1 - Benign prostatic hyperplasia with lower urinary tract symptoms (ICD- 10) ?N13.8 - Other obstructive and reflux uropathy (ICD-10) CAD (coronary artery disease) ?I25.10 - Atherosclerotic heart disease of [place] coronary artery without angina pectoris (ICD-10) CLL (chronic lymphocytic leukemia) (~08/2018) ?C91.10 - Chronic lymphocytic leukemia of B-cell type not having achieved remission (ICD-10) GERD (gastroesophageal reflux disease) ?K21.9 - Gastro-esophageal reflux disease without esophagitis (ICD-10) History of cardioversion ?Z98.890 - Other specified postprocedural states (ICD-10) Hypertension ?I10 - Essential (primary) hypertension (ICD-10) Malignant melanoma ?C43.9 - Malignant melanoma of skin, unspecified (ICD-10) Paroxysmal atrial fibrillation ?I48.0 - Paroxysmal atrial fibrillation (ICD-10) Prostate cancer ?C61 - Malignant neoplasm of prostate (ICD-10) Pulmonary nodules ?R91.8 - Other nonspecific abnormal finding of lung field (ICD-10) <Sharon Ballard MD - Last Filed: 09/20/22 14:12> Surgical History: Surgical History History of cataract surgery ?Z98.49 - Cataract extraction status, unspecified eye (ICD-10) History of melanoma excision ?Z98.890 - Other specified postprocedural states (ICD-10) ?Z85.820 - Personal history of malignant melanoma of skin (ICD-10) History of tonsillectomy ?Z90.89 - Acquired absence of other organs (ICD-10) Hx of mitral valve repair ?Z98.890 - Other specified postprocedural states (ICD-10) S/P mitral valve clip implantation (~2019) ?Z98.890 - Other specified postprocedural states (ICD-10) ?Z95.818 - Presence of other cardiac implants and grafts (ICD-10) <Sharon Ballard MD - Last Filed: 09/20/22 14:12> Family History: Family History Other CHF (congestive heart failure) Hodgkins disease <Sharon Ballard MD - Last Filed: 09/20/22 14:12> Social History: Social History Narrative: he is and here with his . He gets oncology care through [facility]. He gets primary care through Dr. Brian Coronado. He does not smoke. He drinks 1 glass of red wine daily. Smoking Status: Never smoker Do you use any of these nicotine containing products: None Second hand tobacco smoke exposure: No How often do you have a drink containing alcohol: never How often do you have six or more drinks on one occasion: Never AUDIT-C Alcohol total score: 0 Non-prescribed substance use: denies use service: No <Sharon Ballard MD - Last Filed: 09/20/22 14:12> Exam Const: Vital Signs, click to edit/add: Vital Signs - 24 hr 09/20/22 11:24 09/20/22 11:56 Temperature 96.7 F L Pulse Rate [Right Pulse Oximeter] 109 H Respiratory Rate 18 Blood Pressure [Ri ght Upper Arm] 136/96 H Pulse Oximetry 99 98 Oxygen Delivery Me thod Room Air <Sharon Ballard MD - Last Filed: 09/20/22 14:12> Vital Signs, click to edit/add: Vital Signs - 24 hr 09/20/22 11:24 09/20/22 11:56 Temperature 96.7 F L Pulse Rate [Right Pulse Oximeter] 109 H Respiratory Rate 18 Blood Pressure [Ri ght Upper Arm] 136/96 H Pulse Oximetry 99 98 Oxygen Delivery Me thod Room Air <Ary Cano MD - Last Filed: 09/20/22 15:16> Documenting provider has reviewed patient's vital signs: yes <Sharon Ballard MD - Last Filed: 09/20/22 14:12> Common normals: no apparent distress, oriented x3, no limitations, healthy appearing and alert <Sharon Ballard MD - Last Filed: 09/20/22 14:12 > General appearance: cooperative, comfortable, well kempt and well developed <Sharon Ballard MD - Last Filed: 09/20/22 14:12> Nutritional appearance: thin <Sharon Ballard MD - Last Filed: 09/20/22 14:12> HENMT: Common normals: normocephalic, head/scalp atraumatic and hearing grossly normal bilaterally <Sharon Ballard MD - Last Filed: 09/20/22 14:12> Head and scalp: normocephalic and atraumatic <Sharon Ballard MD - Last Filed: 09/20/22 14:12> Eye: Common normals: PERRL, EOMs intact bilaterally, conjunctivae normal and no scleral icterus <Sharon Ballard MD - Last Filed: 09/20/22 14:12> Conjunctiva: conjunctiva(e) normal <Sharon Ballard MD - Last Filed: 09/20/22 14:12> Pupil: PERRL <Sharon Ballard MD - Last Filed: 09/20/22 14:12> Neck & C-Spine: Common normals: full ROM, no lymphadenopathy, supple, no meningeal signs, no JVD and thyroid normal <Sharon Ballard MD - Last Filed: 09/20/22 14:12> Thyroid: thyroid normal <Sharon Ballard MD - Last Filed: 09/20/22 14:12> Resp: Common normals: normal respiratory effort, no retractions, no use of accessory muscles and clear to auscultation bilaterally <Sharon Serna MD - Last Filed: 09/20/22 14:12> Auscultation: clear to auscultation bilaterally <Sharon Ballard MD - Last Filed: 09/20/22 14:12> Cardio: Common normals: no JVD, no clicks and no murmurs <Sharon Floyd MD - Last Filed: 09/20/22 14:12> Rate: tachycardic <Sharon Ballard MD - Last Filed: 09/20/22 14:12> Rhythm: abnormal rhythm irregularly irregular <Sharon Ballard MD - Last Filed: 09/20/22 14:12> GI: Common normals: Normal to inspection, nondistended, normoactive bowel sounds present, soft to palpation, non-tender, no hepatosplenomegaly and no masses <Sharon Ballard MD - Last Filed: 09/20/22 14:12> Palpation: soft and no hepatosplenomegaly <Sharon Ballard MD - Last Filed: 09/20/22 14:12> Extremity: Other: No lower extremity edema. <Sharon Ballard MD - Last Filed: 09/20/22 14:12> Neuro: Common normals: oriented x3, CN's II-XII intact bilaterally, moves all extremities, no focal motor deficits and gait normal <Sharon Serna MD - Last Filed: 09/20/22 14:12> Sensorium/orientation: alert <Sharon Ballard MD - Last Filed: 09/20/22 14:12> Meningeal signs: no meningeal signs <Sharon Ballard MD - Last Filed: 09/20/22 14:12> Speech: speech normal <Sharon Ballard MD - Last Filed: 09/20/22 14:12> Psych: Appearance: well kempt <Sharon Ballard MD - Last Filed: 09/20/22 14:12> Course Reevaluation(s) Reevaluation #1: Have reviewed with patient that I have spoke with cardiology at [place], we will proceed with cardioversion. Patient has been consented risks benefits and requests that we proceed with this procedure. Dr. Cano will be assisting. We plan using propofol for sedation. I see his magnesium is relatively low normal at 1.7. Will give him some IV magnesium while here. <Sharon Ballard MD - Last Filed: 09/20/22 14:12> Time: 12:54 <Sharon Ballard MD - Last Filed: 09/20/22 14:12> Reevaluation #2: Cardioversion is completed. Patient received propofol fall, believe 80 mg total, see Dr. Matute anesthesia note. He was cardioverted with a single dose of 120 joules. He did go back into sinus rhythm. He will be recovered per routine deep sedation protocol., complete IV magnesium and then discharged to home. Post cardioversion EKG showing sinus rhythm with premature atrial complex, 60 beats per minute. No ischemic change, QT corrected 478 milliseconds. <Sharon Ballard MD - Last Filed: 09/20/22 14:12> Cardioversion is completed. Patient received propofol fall, believe 80 mg total, see Dr. Matute anesthesia note. He was cardioverted with a single dose of 120 joules. He did go back into sinus rhythm. He will be recovered per routine deep sedation protocol., complete IV magnesium and then discharged to home. Post cardioversion EKG showing sinus rhythm with premature atrial complex, 60 beats per minute. No ischemic change. Procedure note: I provided sedation for cardioversion. Patient was maintained on oximetry, medical services assistant and end-tidal CO2. He was given 80 mg of propofol with adequate sedation. He was hemodynamically stable, cardioverted successfully, and did not have apnea or hypoxia. He awakened without incident. <Ary Cano MD - Last Filed: 09/20/22 15:16> Time: 13:06 <Sharon Ballard MD - Last Filed: 09/20/22 14:12> Reevaluation #3: Patient is alert, conversive. Soon as his magnesium is completed, will discharge to home. He is meeting all of his discharge criteria from sedation. <Sharon Ballard MD - Last Filed: 09/20/22 14:12> Time: 13:30 <Sharon Ballard MD - Last Filed: 09/20/22 14:12> Consultations Consultation #1: Spoke with Concepción AGUILAR at [place] to have her page Cardiology for me. Cardiology called back almost immediately, spoke with Dr. Hansen at 12:14 p.m.. He agreed with proceeding with cardioversion as long as patient had not missed any doses of his blood thinner. He requested that the patient contact Dr. Santana his primary clinical research management associate within the next few days. <Sharon Ballard MD - Last Filed: 09/20/22 14:12> Time: 12:09 <Sharon Ballard MD - Last Filed: 09/20/22 14:12> Vital Signs Vital signs: Initial Vital Signs Temperature 96.7 F L 09/20/22 11:24 Temperature Source Temporal Artery Scan 09/20/22 11:24 Pulse Rate 109 H 09/20/22 11:24 Respiratory Rate 18 09/20/22 11:24 Blood Pressure 136/96 H 09/20/22 11:24 Blood Pressure Mean 109 09/20/22 11:24 Blood Pressure Position Sitting 09/20/22 11:24 Pulse Oximetry 99 09/20/22 11:24 Oxygen Delivery Method Room Air 09/20/22 11:24 Vital Signs Temperature 96.7 F L 09/20/22 11:24 Pulse Rate 109 H 09/20/22 11:24 Respiratory Rate 18 09/20/22 11:24 Blood Pressure 136/96 H 09/20/22 11:24 Pulse Oximetry 99 09/20/22 11:24 Oxygen Delivery Method Room Air 09/20/22 11:24 Temperature 96.7 F L 09/20/22 11:24 Pulse Rate 109 H 09/20/22 11:24 Respiratory Rate 18 09/20/22 11:24 Blood Pressure 136/96 H 09/20/22 11:24 Pulse Oximetry 98 09/20/22 11:56 Oxygen Delivery Method Room Air 09/20/22 11:24 <Sharon Ballard MD - Last Filed: 09/20/22 14:12> Initial Vital Signs Temperature 96.7 F L 09/20/22 11:24 Temperature Source Temporal Artery Scan 09/20/22 11:24 Pulse Rate 109 H 09/20/22 11:24 Respiratory Rate 18 09/20/22 11:24 Blood Pressure 136/96 H 09/20/22 11:24 Blood Pressure Mean 109 09/20/22 11:24 Blood Pressure Position Sitting 09/20/22 11:24 Pulse Oximetry 99 09/20/22 11:24 Oxygen Delivery Method Room Air 09/20/22 11:24 Vital Signs Temperature 96.7 F L 09/20/22 11:24 Pulse Rate 109 H 09/20/22 11:24 Respiratory Rate 18 09/20/22 11:24 Blood Pressure 136/96 H 09/20/22 11:24 Pulse Oximetry 99 09/20/22 11:24 Oxygen Delivery Method Room Air 09/20/22 11:24 Temperature 96.7 F L 09/20/22 11:24 Pulse Rate 109 H 09/20/22 11:24 Respiratory Rate 18 09/20/22 11:24 Blood Pressure 136/96 H 09/20/22 11:24 Pulse Oximetry 98 09/20/22 11:56 Oxygen Delivery Method Room Air 09/20/22 11:24 <Ary Cano MD - Last Filed: 09/20/22 15:16> MDM - Arrhythmia/Palpitations Lab Data Attestation: I reviewed the patient's lab results. <Sharon Ballard MD - Last Filed: 09/20/22 14:12> Lab results narrative: Note patient is known to have CLL. <Sharon Ballard MD - Last Filed: 09/20/22 14:12> Labs: Lab Results 09/20/22 Range/Units 11:47 WBC 13.33 H (4.50-11.00) K/uL RBC 4.21 L (4.30-5.90) m/uL Hgb 12.5 L (13.5-17.5) gm/dL Hct 38.2 (37.0-53.0) % MCV 91 (80-100) fL MCH 30 (26-34) pg MCHC 33 (32-36) gm/dL RDW Coeff of Ekta 13.3 (11.5-15.5) % Plt Count 293 (140-440) K/uL Neut % (Auto) 62.2 (42.0-72.0) % Lymph % (Auto) 29.7 (20-44) % [place] % (Auto) 6.4 (0.0-11.0) % Eos % (Auto) 1.2 (0.0-7.0) % Baso % (Auto) 0.2 (0.0-3.0) % Neut # (Auto) 8.30 H (1.7-7.0) K/uL Lymph # (Auto) 4.00 H (0.90-2.90) K/uL [place] # (Auto) 0.90 (0.00-0.90) K/UL Eos # (Auto) 0.20 (0.00-0.50) K/uL Baso # (Auto) 0.00 (0.00-0.30) K/uL Sodium 134 L (135-149) mmol/L Potassium 4.1 (3.6-5.1) mmol/L Chloride 104 (96-114) mmol/L Carbon Dioxide 22 (20-32) mmol/L BUN 10 (7-30) mg/dL Creatinine 0.8 (0.5-1.5) mg/dL Estimated Creat Clear 65.89 Estimated GFR 91 ml/min Glucose 113 (60-115) mg/dL Calcium 8.5 (8.4-10.6) mg/dL Magnesium 1.7 (1.5-2.6) mg/dL Total Bilirubin 1.4 (0.1-1.5) mg/dL AST 19 (12-35) U/L ALT 14 (4-50) U/L Alkaline Phosphatase 78 (40-150) U/L Troponin I < 0.01 L (0.01-0.04) ng/mL C-Reactive Protein 0.6 (0.5-1.0) mg/dL NT-Pro-B Natriuret Pep 3480 pg/mL Total Protein 6.5 (6.0-8.3) g/dL Albumin 3.9 (3.3-5.0) g/dL <Sharon Ballard MD - Last Filed: 09/20/22 14:12> Lab Results 09/20/22 Range/Units 11:47 WBC 13.33 H (4.50-11.00) K/uL RBC 4.21 L (4.30-5.90) m/uL Hgb 12.5 L (13.5-17.5) gm/dL Hct 38.2 (37.0-53.0) % MCV 91 (80-100) fL MCH 30 (26-34) pg MCHC 33 (32-36) gm/dL RDW Coeff of Ekta 13.3 (11.5-15.5) % Plt Count 293 (140-440) K/uL Neut % (Auto) 62.2 (42.0-72.0) % Lymph % (Auto) 29.7 (20-44) % [place] % (Auto) 6.4 (0.0-11.0) % Eos % (Auto) 1.2 (0.0-7.0) % Baso % (Auto) 0.2 (0.0-3.0) % Neut # (Auto) 8.30 H (1.7-7.0) K/uL Lymph # (Auto) 4.00 H (0.90-2.90) K/uL [place] # (Auto) 0.90 (0.00-0.90) K/UL Eos # (Auto) 0.20 (0.00-0.50) K/uL Baso # (Auto) 0.00 (0.00-0.30) K/uL Sodium 134 L (135-149) mmol/L Potassium 4.1 (3.6-5.1) mmol/L Chloride 104 (96-114) mmol/L Carbon Dioxide 22 (20-32) mmol/L BUN 10 (7-30) mg/dL Creatinine 0.8 (0.5-1.5) mg/dL Estimated Creat Clear 65.89 Estimated GFR 91 ml/min Glucose 113 (60-115) mg/dL Calcium 8.5 (8.4-10.6) mg/dL Magnesium 1.7 (1.5-2.6) mg/dL Total Bilirubin 1.4 (0.1-1.5) mg/dL AST 19 (12-35) U/L ALT 14 (4-50) U/L Alkaline Phosphatase 78 (40-150) U/L Troponin I < 0.01 L (0.01-0.04) ng/mL C-Reactive Protein 0.6 (0.5-1.0) mg/dL NT-Pro-B Natriuret Pep 3480 pg/mL Total Protein 6.5 (6.0-8.3) g/dL Albumin 3.9 (3.3-5.0) g/dL <Ary Cano MD - Last Filed: 09/20/22 15:16> ECG Data Attestation: I personally reviewed and interpreted this ECG as follows: (Atrial fibrillation, 98 beats per minute. PVC seen. QT corrected 492 milliseconds.) <Sharon Ballard MD - Last Filed: 09/20/22 14:12> ECG interpretation date: 09/20/22 <Sharon Ballard MD - Last Filed: 09/20/22 14:12> ECG interpretation time: 11:30 <Sharon Ballard MD - Last Filed: 09/20/22 14:12> Discharge Plan Discharge Clinical Impression: Atrial fibrillation with rapid ventricular response <Sharon Ballard MD - Last Filed: 09/20/22 14:12> Patient Disposition: Home, Self-Care <Sharon Ballard MD - Last Filed: 09/20/22 14:12> Condition: Improved <Sharon Ballard MD - Last Filed: 09/20/22 14:12> Instructions: A-fib (Atrial Fibrillation) (ED) <Sharon Ballard MD - Last Filed: 09/20/22 14:12> Additional Instructions: Stay on current medicines including her sotalol and Xarelto. Need to contact Dr. Santana your clinical research management associate to let him know you were back in atrial fibrillation and required cardioversion. In the meantime, recurrent sustained atrial fibrillation, any shortness of breath or chest pain with that, do recommend re-evaluation. <Sharon Ballard MD - Last Filed: 09/20/22 14:12> Activity Level: Activity as Tolerated <Sharon Ballard MD - Last Filed: 09/20/22 14:12> Activity as Tolerated <Ary Cano MD - Last Filed: 09/20/22 15:16> Discharge Diet: Regular <Sharon Ballard MD - Last Filed: 09/20/22 14:12> Regular <Ary Cano MD - Last Filed: 09/20/22 15:16> Prescriptions: No Action Slow-Mag 71.5 mg tablet,delayed release (DR/EC) 71.5 mg PO QDAY sotalol 80 mg tablet 80 mg PO BID tamsulosin [Flomax] 0.4 mg capsule 0.4 mg PO QDAY alprazolam 0.25 mg tablet 0.25 mg PO DAILY PRN famotidine [Pepcid] 20 mg tablet 20 mg PO DAILY amlodipine 5 mg tablet 5 mg PO .Q24 Xarelto 20 mg tablet 20 mg PO Q24H Calquence 100 mg capsule 100 mg PO .Q24 lisinopril 10 mg tablet 10 mg PO BID atorvastatin 20 mg tablet 20 mg PO .QHS <Sharon Ballard MD - Last Filed: 09/20/22 14:12> Follow Up/Referrals: Essie Torres MD [Staff Physician] - <Sharon Ballard MD - Last Filed: 09/20/22 14:12> Stand Alone Forms: [facility] Info Instructions <Sharon Ballard MD - Last Filed: 09/20/22 14:12>
[2022-09-20 11:56] VITALS: O2SAT 98
--- NOTE | 2022-09-20 11:56 | CRLHL7_ITS ---
For Patients: As a result of the Century Cures Act, medical imaging exams and procedure reports are released immediately into your electronic medical record. You may view this report before your referring provider. If you have questions, please contact your health care provider. INDICATION: .afib w/ rvr TECHNIQUE: Chest 1 views. COMPARISON: December 2021. FINDINGS: Lungs: Normal lung volume. No consolidation. The tracheobronchial tree and hilar structures are unremarkable. Pleura: No pleural effusion or pneumothorax. Heart and Mediastinum: Normal heart size. Atherosclerotic aorta. Monitoring device overlies the left portion of the heart. Bones: No acute displaced osseous process. IMPRESSION: No consolidation. Dictated by Ron Porter MD @ 09/20/2022 1:26:43 PM (Electronically Signed)
[2022-09-20 12:06] LABS: Basophils Percent Auto 0.2 % (0.0-3.0); Eosinophils Percent Auto 1.2 % (0.0-7.0); Hematocrit 38.2 % (37.0-53.0); Hemoglobin* 12.5 gm/dL (13.5-17.5); Immature Granulocytes Pct Auto 0.3 %; Lymphocytes Percent Auto 29.7 % (20-44); Mean Corpuscular HGB Conc 33 gm/dL (32-36); Mean Corpuscular Hemoglobin 30 pg (26-34); Mean Corpuscular Volume 91 fL (80-100); Monocytes Percent Auto 6.4 % (0.0-11.0); Neutrophils Percent Auto 62.2 % (42.0-72.0); Platelet Count* 293 K/uL (140-440); RDW Coefficient of Variation % 13.3 % (11.5-15.5); Red Blood Count 4.21 m/uL (4.30-5.90); White Blood Count* 13.33 K/uL (4.50-11.00)
[2022-09-20 12:07] LABS: Slide Review Reflex No
[2022-09-20 12:19] LABS: Albumin* 3.9 g/dL (3.3-5.0); Chloride* 104 mmol/L (96-114)
[2022-09-20 12:20] LABS: Potassium* 4.1 mmol/L (3.6-5.1); Sodium* 134 mmol/L (135-149)
[2022-09-20 12:22] LABS: Bilirubin Total* 1.4 mg/dL (0.1-1.5); Creatinine* 0.8 mg/dL (0.5-1.5); Est. Creatinine Clearance* 65.89; Estimated Glomerular Filt Rate 91 ml/min
[2022-09-20 12:23] LABS: Alanine Aminotransferase* 14 U/L (4-50); Alkaline Phosphatase* 78 U/L (40-150); Aspartate Amino Transferase* 19 U/L (12-35); Blood Urea Nitrogen* 10 mg/dL (7-30); Calcium* 8.5 mg/dL (8.4-10.6); Carbon Dioxide* 22 mmol/L (20-32); Glucose* 113 mg/dL (60-115); Magnesium* 1.7 mg/dL (1.5-2.6); Total Protein* 6.5 g/dL (6.0-8.3)
[2022-09-20 12:26] LABS: C Reactive Protein* 0.6 mg/dL (0.5-1.0)
[2022-09-20 12:35] LABS: NT Pro B Type NatriureticPept* 3480 pg/mL; Troponin I* < 0.01 ng/mL (0.01-0.04)
[2022-09-20] MEDS: PROPOFOL 10 MG/ML INJ 100 MG IVP (13:06)
[2022-09-20] MEDS: 0.9 % SODIUM CHLORIDE 1000 ml 1,000 ML IV (13:06)
== END 2022-09-20 14:21 | disposition home or self-care (01) ==
PROVIDERS: Emergency Provider Family Medicine
DX: I48.20 Chronic atrial fibrillation, unspecified (principal)
CPT/HCPCS: 36415; 71045; 80053; 83735; 83880; 84484; 85025; 86140; 92960; 93005; 94761; 96365; 99284; 99291; J2704; J3475; J7030

== ENCOUNTER 2022-10-07 10:31 | Emergency (ER) | payer MEDICARE, BC, SELFPAY ==
[2022-10-07] VITALS (43 sets, daily range): BP systolic 88–133; BP diastolic 67–105; PULSE 62–125; RESP 4–22; TEMP 36.7; O2SAT 95–99; BMI 24.0
--- NOTE | 2022-10-07 10:52 | ED.GENADULT ---
HPI - General Adult General Time Seen by Provider: 10:52 Date Seen: 10/07/22 Chief complaint: Arrhythmia/Palpitations Stated complaint: AFIB Time Seen by Provider: 10/07/22 10:52 Source: patient, RN notes reviewed and old records reviewed Mode of arrival: ambulatory Limitations: no limitations History of Present Illness HPI narrative: Freeman is a very pleasant 77-year-old male with history of CLL for approximately 4 years, atrial fibrillation with RVR status post cardioversion 3 weeks ago who comes to the emergency room with complaints of AFib. Patient notes that yesterday he was working outside in approximately 1415 hours he bent over to do something and had the onset of AFib which is persisted. He is not short of breath but he did have night sweats overnight. He denies any chest pain. He has extensive history of atrial fibrillation. States he had a mitral valve repair 3 years ago with a mitral clip and has been on Xarelto. He had at failed cardiac ablation 2 years ago and since that time has had intermittent episodes of atrial fibrillation. Again, successfully cardioverted by Dr. Padmini Marsh approximately 3 weeks ago. Patient has not noticed any increased work of breathing, lower extremity edema, fevers, chills, nausea vomiting. Patient is on Xarelto and has not skipped any of his medications. He last ate at 2100 hours last night. He did take a small amount or water with his pills this morning at approximately 0820. Patient is also enquiring about easy bruisability. States that he is been on his CLL meds for quite some time but his lymphocyte numbers are gradually increasing. Will check a CBC today and INR. Related Data Home Medications Medication Instructions Recorded Confirmed acalabrutinib 100 mg capsule 100 mg PO .Q24 12/07/21 09/13/22 (Calquence) amlodipine 5 mg tablet 5 mg PO .Q24 12/07/21 09/13/22 rivaroxaban 20 mg tablet (Xarelto) 20 mg PO Q24H 12/07/21 09/13/22 alprazolam 0.25 mg tablet 0.25 mg PO DAILY PRN 12/16/21 09/13/22 famotidine 20 mg tablet (Pepcid) 20 mg PO DAILY 12/16/21 09/13/22 atorvastatin 20 mg tablet 20 mg PO .QHS 02/15/22 09/13/22 lisinopril 10 mg tablet 10 mg PO BID 02/15/22 09/13/22 magnesium chloride 71.5 mg 71.5 mg PO QDAY 02/15/22 09/13/22 (magnesium chloride) tablet,delayed release (Slow-Mag) sotalol 80 mg tablet 80 mg PO BID 02/15/22 09/13/22 tamsulosin 0.4 mg capsule (Flomax) 0.4 mg PO QDAY 02/15/22 09/13/22 Allergies Allergy/AdvReac Type Severity Reaction Status Date / Time ibrutinib [From Imbruvica] Allergy Intermediate Rash Verified 10/07/22 11:25 Penicillins Allergy Verified 07/12/22 11:17 Review of Systems Status of ROS: Reports: 10 or more systems reviewed and unremarkable except as noted in History and below Const: Reports: night sweats; Denies: fever or chills Eyes: Denies: change in vision ENMT: Denies: throat pain, neck pain, throat swelling or difficulty swallowing Cardio: Reports: palpitations; Denies: chest pain, swelling of feet/ankles, lightheadedness or shortness of breath with exertion Resp: Denies: shortness of breath or cough GI: Denies: abdominal pain, vomiting or difficulty swallowing : Denies: painful urination Musculo: Denies: back pain, neck pain or extremity pain Integ/Breast: Denies: rash Neuro: Denies: headache Allergy/Immuno: Denies: throat swelling PFSH PFS Medical History GERD (gastroesophageal reflux disease) ?K21.9 - Gastro-esophageal reflux disease without esophagitis (ICD-10) CAD (coronary artery disease) ?I25.10 - Atherosclerotic heart disease of [place] coronary artery without angina pectoris (ICD-10) Pulmonary nodules ?R91.8 - Other nonspecific abnormal finding of lung field (ICD-10) History of cardioversion ?Z98.890 - Other specified postprocedural states (ICD-10) CLL (chronic lymphocytic leukemia) (~08/2018) ?C91.10 - Chronic lymphocytic leukemia of B-cell type not having achieved remission (ICD-10) Malignant melanoma ?C43.9 - Malignant melanoma of skin, unspecified (ICD-10) Anxiety ?F41.9 - Anxiety disorder, unspecified (ICD-10) BPH with obstruction/lower urinary tract symptoms ?N40.1 - Benign prostatic hyperplasia with lower urinary tract symptoms (ICD-10) ?N13.8 - Other obstructive and reflux uropathy (ICD-10) Prostate cancer ?C61 - Malignant neoplasm of prostate (ICD-10) Hypertension ?I10 - Essential (primary) hypertension (ICD-10) Paroxysmal atrial fibrillation ?I48.0 - Paroxysmal atrial fibrillation (ICD-10) Surgical History S/P mitral valve clip implantation (~2019) ?Z98.890 - Other specified postprocedural states (ICD-10) ?Z95.818 - Presence of other cardiac implants and grafts (ICD-10) History of tonsillectomy ?Z90.89 - Acquired absence of other organs (ICD-10) History of melanoma excision ?Z98.890 - Other specified postprocedural states (ICD-10) ?Z85.820 - Personal history of malignant melanoma of skin (ICD-10) History of cataract surgery ?Z98.49 - Cataract extraction status, unspecified eye (ICD-10) Hx of mitral valve repair ?Z98.890 - Other specified postprocedural states (ICD-10) Family History Other CHF (congestive heart failure) Hodgkins disease Social History Narrative: he is and here with his . He gets oncology care through [facility]. He gets primary care through Dr. Brian Coronado. He does not smoke. He drinks 1 glass of red wine daily. Smoking Status: Never smoker Do you use any of these nicotine containing products: None Second hand tobacco smoke exposure: No How often do you have a drink containing alcohol: never How often do you have six or more drinks on one occasion: Never AUDIT-C Alcohol total score: 0 Non-prescribed substance use: denies use service: No Exam Narrative: Exam Narrative: Alert and oriented. Very pleasant gentleman. Head is atraumatic normocephalic. Large of swollen lymph nodes at the angle of jaw bilaterally. Heart with a tachycardic rate normal rhythm. Lungs are clear with the exception of a few crackles in the right lower lung base. Abdomen soft nontender. Lower extremities without edema significant edema. Moving all extremities. Const: Vital Signs, click to edit/add: Vital Signs - 24 hr 10/07/22 10:53 10/07/22 11:01 10/07/22 11:02 Temperature 98.1 F Pulse Rate 117 H 107 H Pulse Rate [Pulse Oximeter] 125 H Respiratory Rate 20 Blood Pressure 117/102 H Blood Pressure [Ri ght Upper Arm] 103/87 Pulse Oximetry 98 97 97 Oxygen Delivery Me thod Room Air Oxygen Flow Rate 10/07/22 11:15 10/07/22 11:30 10/07/22 11:31 Temperature Pulse Rate 121 H 101 H 114 H Pulse Rate [Pulse Oximeter] Respiratory Rate Blood Pressure 116/78 Blood Pressure [Ri ght Upper Arm] Pulse Oximetry 97 96 98 Oxygen Delivery Me thod Oxygen Flow Rate 10/07/22 11:45 10/07/22 12:00 10/07/22 12:03 Temperature Pulse Rate 115 H 105 H 119 H Pulse Rate [Pulse Oximeter] Respiratory Rate Blood Pressure 118/80 Blood Pressure [Ri ght Upper Arm] Pulse Oximetry 98 95 97 Oxygen Delivery Me thod Oxygen Flow Rate 10/07/22 12:15 10/07/22 12:30 10/07/22 12:31 Temperature Pulse Rate 119 H 110 H 119 H Pulse Rate [Pulse Oximeter] Respiratory Rate Blood Pressure 99/80 Blood Pressure [Ri ght Upper Arm] Pulse Oximetry 98 98 97 Oxygen Delivery Me thod Oxygen Flow Rate 10/07/22 12:45 10/07/22 13:00 10/07/22 13:01 Temperature Pulse Rate 107 H 104 H 94 Pulse Rate [Pulse Oximeter] Respiratory Rate Blood Pressure 104/79 Blood Pressure [Ri ght Upper Arm] Pulse Oximetry 97 97 97 Oxygen Delivery Me thod Oxygen Flow Rate 10/07/22 13:15 10/07/22 13:30 10/07/22 13:31 Temperature Pulse Rate 119 H 117 H 118 H Pulse Rate [Pulse Oximeter] Respiratory Rate Blood Pressure 88/70 L Blood Pressure [Ri ght Upper Arm] Pulse Oximetry 97 96 96 Oxygen Delivery Me thod Oxygen Flow Rate 10/07/22 13:33 10/07/22 13:45 10/07/22 14:00 Temperature Pulse Rate 99 109 H 121 H Pulse Rate [Pulse Oximeter] Respiratory Rate Blood Pressure 108/88 Blood Pressure [Ri ght Upper Arm] Pulse Oximetry 96 96 97 Oxygen Delivery Me thod Oxygen Flow Rate 10/07/22 14:01 10/07/22 14:02 10/07/22 14:17 Temperature Pulse Rate 119 H 112 H 102 H Pulse Rate [Pulse Oximeter] Respiratory Rate Blood Pressure 95/75 Blood Pressure [Ri ght Upper Arm] Pulse Oximetry 97 96 97 Oxygen Delivery Me thod Oxygen Flow Rate 10/07/22 14:19 10/07/22 14:25 10/07/22 14:30 Temperature Pulse Rate 115 H 112 H Pulse Rate [Pulse Oximeter] Respiratory Rate Blood Pressure 107/76 Blood Pressure [Ri ght Upper Arm] Pulse Oximetry 97 98 99 Oxygen Delivery Me thod Nasal Cannula Oxygen Flow Rate 2 10/07/22 14:31 10/07/22 14:40 10/07/22 14:41 Temperature Pulse Rate 100 122 H 116 H Pulse Rate [Pulse Oximeter] Respiratory Rate 12 14 Blood Pressure 105/82 118/97 H 127/105 H Blood Pressure [Ri ght Upper Arm] Pulse Oximetry 99 99 99 Oxygen Delivery Me thod Oxygen Flow Rate 10/07/22 14:41 10/07/22 14:45 10/07/22 14:46 Temperature Pulse Rate 116 H 69 62 Pulse Rate [Pulse Oximeter] Respiratory Rate 14 22 Blood Pressure 127/105 H 113/71 Blood Pressure [Ri ght Upper Arm] Pulse Oximetry 99 95 96 Oxygen Delivery Me thod Oxygen Flow Rate 10/07/22 14:50 10/07/22 14:51 10/07/22 14:56 Temperature Pulse Rate 66 70 70 Pulse Rate [Pulse Oximeter] Respiratory Rate 17 18 18 Blood Pressure 116/75 115/67 113/71 Blood Pressure [Ri ght Upper Arm] Pulse Oximetry 97 98 97 Oxygen Delivery Me thod Oxygen Flow Rate 10/07/22 15:00 10/07/22 15:02 10/07/22 15:07 Temperature Pulse Rate 88 75 68 Pulse Rate [Pulse Oximeter] Respiratory Rate 11 L 13 Blood Pressure 115/77 133/72 Blood Pressure [Ri ght Upper Arm] Pulse Oximetry 98 98 98 Oxygen Delivery Me thod Oxygen Flow Rate 10/07/22 15:08 10/07/22 15:12 10/07/22 15:15 Temperature Pulse Rate 68 66 63 Pulse Rate [Pulse Oximeter] Respiratory Rate 5 L 9 L Blood Pressure 125/71 Blood Pressure [Ri ght Upper Arm] Pulse Oximetry 98 98 98 Oxygen Delivery Me thod Oxygen Flow Rate 10/07/22 15:16 10/07/22 15:21 Temperature Pulse Rate 65 65 Pulse Rate [Pulse Oximeter] Respiratory Rate 4 L 12 Blood Pressure 108/69 115/68 Blood Pressure [Ri ght Upper Arm] Pulse Oximetry 99 99 Oxygen Delivery Me thod Room Air Oxygen Flow Rate Documenting provider has reviewed patient's vital signs: yes Course Course Hospital Course: At this time will check electrolytes as well as urinalysis EKG and troponin. Patient is stable at this time with no complaints of chest pain. Plan on cardioversion with normal labs. Reevaluation(s) Reevaluation #1: With the assistance of anesthesia and after informed consent accomplish patient was placed on nasal cannula oxygen and had pacer pads placed. Propofol was used for anesthesia. Patient was successfully converted with 100 joules of synchronized cardioversion. Post EKG shows sinus rhythm with occasional PAC. Consultations Consultation #1: At the pleasure of speaking with steel rule die maker apprentice Dr. Medrano from [facility]. At this time he states that we would likely need to stop doing cardioversion and switch to medical management but states would have Freeman follow-up with the systems support specialist and his own doctor for that final determination. Vital Signs Vital signs: Initial Vital Signs Temperature 98.1 F 10/07/22 10:53 Temperature Source Temporal Artery Scan 10/07/22 10:53 Pulse Rate 125 H 10/07/22 10:53 Pulse Rhythm Irregular 10/07/22 10:53 Respiratory Rate 20 10/07/22 10:53 Blood Pressure 103/87 10/07/22 10:53 Blood Pressure Mean 92 10/07/22 10:53 Blood Pressure Position Supine 10/07/22 10:53 Pulse Oximetry 98 10/07/22 10:53 Oxygen Delivery Method Room Air 10/07/22 10:53 Vital Signs Temperature 98.1 F 10/07/22 10:53 Pulse Rate 125 H 10/07/22 10:53 Respiratory Rate 20 10/07/22 10:53 Blood Pressure 103/87 05/04/23 10:53 Pulse Oximetry 98 10/07/22 10:53 Oxygen Delivery Method Room Air 10/07/22 10:53 Temperature 98.1 F 10/07/22 10:53 Pulse Rate 65 10/07/22 15:21 Respiratory Rate 12 10/07/22 15:21 Blood Pressure 115/68 10/07/22 15:21 Pulse Oximetry 99 10/07/22 15:21 Oxygen Delivery Method Room Air 10/07/22 15:21 Oxygen Flow Rate 2 10/07/22 14:25 Medical Decision Making MDM Narrative Medical decision making narrative: 1. AFib with RVR-successful cardioversion. Patient received 1 g IV magnesium post cardioversion and is as his Mag was 1.9. Did speak with him about our my discussion with Cardiology. This may be 1 last times we try cardioversion. He will follow up with his steel rule die maker apprentice in regards to this. 2. CLL-currently on Xarelto. White count is 14.19. Will follow up with his oncologist. 3. Disposition-home at this time. Push fluids and do not push activity. Return to the emergency room as needed. Medical Records Medical records reviewed: Yes I reviewed the patient's medical records Lab Data Lab results reviewed: Yes I reviewed the patient's lab results Labs: Lab Results 10/07/22 Range/Units 11:18 WBC 14.19 H (4.50-11.00) K/uL RBC 4.37 (4.30-5.90) m/uL Hgb 13.0 L (13.5-17.5) gm/dL Hct 39.6 (37.0-53.0) % MCV 91 (80-100) fL MCH 30 (26-34) pg MCHC 33 (32-36) gm/dL RDW Coeff of Ek[place] 13.3 (11.5-15.5) % Plt Count 308 (140-440) K/uL Neut % (Auto) 64.0 (42.0-72.0) % Lymph % (Auto) 29.2 (20-44) % [place] % (Auto) 5.1 (0.0-11.0) % Eos % (Auto) 1.2 (0.0-7.0) % Baso % (Auto) 0.3 (0.0-3.0) % Neut # (Auto) 9.10 H (1.7-7.0) K/uL Lymph # (Auto) 4.10 H (0.90-2.90) K/uL [place] # (Auto) 0.70 (0.00-0.90) K/UL Eos # (Auto) 0.20 (0.00-0.50) K/uL Baso # (Auto) 0.00 (0.00-0.30) K/uL INR 2.04 H (0.91-1.10) Sodium 136 (135-149) mmol/L Potassium 4.2 (3.6-5.1) mmol/L Chloride 106 (96-114) mmol/L Carbon Dioxide 22 (20-32) mmol/L BUN 15 (7-30) mg/dL Creatinine 0.9 (0.5-1.5) mg/dL Estimated Creat Clear 65.89 Estimated GFR 88 ml/min Glucose 104 (60-115) mg/dL Calcium 9.1 (8.4-10.6) mg/dL Magnesium 1.9 (1.5-2.6) mg/dL Total Bilirubin 2.1 H (0.1-1.5) mg/dL AST 21 (12-35) U/L ALT 15 (4-50) U/L Alkaline Phosphatase 86 (40-150) U/L Total Protein 6.7 (6.0-8.3) g/dL Albumin 4.2 (3.3-5.0) g/dL POC Troponin I 0.01 (0.01-0.04) ng/ml Imaging Data Chest x-ray: Attestation: I have reviewed the pertinent imaging results. ECG Data Attestation: I personally reviewed and interpreted this ECG as follows: Interpretation: EKG by my read shows AFib with RVR at a rate of 114. I do not note any acute ST or T-wave changes. Discharge Plan Discharge Clinical Impression: Atrial fibrillation with rapid ventricular response Patient Disposition: Home, Self-Care Condition: Improved Additional Instructions: Follow-up with the soybean grower at [facility]. Return as needed Prescriptions: No Action Slow-Mag 71.5 mg tablet,delayed release (DR/EC) 71.5 mg PO QDAY sotalol 80 mg tablet 80 mg PO BID tamsulosin [Flomax] 0.4 mg capsule 0.4 mg PO QDAY alprazolam 0.25 mg tablet 0.25 mg PO DAILY PRN famotidine [Pepcid] 20 mg tablet 20 mg PO DAILY amlodipine 5 mg tablet 5 mg PO .Q24 Xarelto 20 mg tablet 20 mg PO Q24H Calquence 100 mg capsule 100 mg PO .Q24 lisinopril 10 mg tablet 10 mg PO BID atorvastatin 20 mg tablet 20 mg PO .QHS Follow Up/Referrals: Provider,Not a Local [Primary Care Provider] - Stand Alone Forms: [facility] Info Instructions
--- NOTE | 2022-10-07 11:20 | CRLHL7_ITS ---
For Patients: As a result of the Cures Act, medical imaging exams and procedure reports are released immediately into your electronic medical record. You may view this report before your referring provider. If you have questions, please contact your health care provider. INDICATION: Tachycardia. TECHNIQUE: Chest 1 views. COMPARISON: September 20, 2022. FINDINGS: Cardiovasculature and mediastinum: Heart size and vasculature are normal in caliber and appearance. Lungs and pleural spaces: Lungs are clear. No sign of infiltrate or mass. No sign of pleural effusion. No pneumothorax. Bones and soft tissues: No significant findings. IMPRESSION: No acute findings and no significant changes from the prior exam. Dictated by Ashok Doss MD @ 10/07/2022 11:54:24 AM (Electronically Signed)
[2022-10-07] MEDS: 0.9 % SODIUM CHLORIDE 1000 ml 1,000 ML IV (11:30)
[2022-10-07 11:34] LABS: Basophils Percent Auto 0.3 % (0.0-3.0); Eosinophils Percent Auto 1.2 % (0.0-7.0); Hematocrit 39.6 % (37.0-53.0); Immature Granulocytes Pct Auto 0.2 %; Lymphocytes Percent Auto 29.2 % (20-44); Mean Corpuscular HGB Conc 33 gm/dL (32-36); Mean Corpuscular Hemoglobin 30 pg (26-34); Mean Corpuscular Volume 91 fL (80-100); Monocytes Percent Auto 5.1 % (0.0-11.0); Platelet Count* 308 K/uL (140-440); RDW Coefficient of Variation % 13.3 % (11.5-15.5); Red Blood Count 4.37 m/uL (4.30-5.90); White Blood Count* 14.19 K/uL (4.50-11.00)
[2022-10-07 11:43] LABS: Slide Review Reflex No
[2022-10-07 11:46] LABS: Albumin* 4.2 g/dL (3.3-5.0); Chloride* 106 mmol/L (96-114); Potassium* 4.2 mmol/L (3.6-5.1); Sodium* 136 mmol/L (135-149); Troponin, Point-of-Care* 0.01 ng/ml (0.01-0.04)
[2022-10-07 11:47] LABS: INR 2.04 (0.91-1.10); Prothrombin Time 24.1 Seconds
[2022-10-07 11:48] LABS: Bilirubin Total* 2.1 mg/dL (0.1-1.5); Carbon Dioxide* 22 mmol/L (20-32); Creatinine* 0.9 mg/dL (0.5-1.5); Est. Creatinine Clearance* 65.89; Estimated Glomerular Filt Rate 88 ml/min
[2022-10-07 11:49] LABS: Alanine Aminotransferase* 15 U/L (4-50); Alkaline Phosphatase* 86 U/L (40-150); Aspartate Amino Transferase* 21 U/L (12-35); Blood Urea Nitrogen* 15 mg/dL (7-30); Calcium* 9.1 mg/dL (8.4-10.6); Glucose* 104 mg/dL (60-115); Magnesium* 1.9 mg/dL (1.5-2.6); Total Protein* 6.7 g/dL (6.0-8.3)
[2022-10-07] MEDS: PROPOFOL 10 MG/ML INJ 100 MG IVP (15:00)
== END 2022-10-07 15:54 | disposition home or self-care (01) ==
PROVIDERS: Emergency Provider Family Medicine
DX: I48.91 Unspecified atrial fibrillation (principal)
CPT/HCPCS: 36415; 71045; 80053; 83735; 84484; 85025; 85610; 92960; 93005; 96375; 99285; J2704; J3475; J7030

== ENCOUNTER 2022-12-14 06:31 | Outpatient (CLI) | payer MEDICARE, BC, SELFPAY ==
[2022-12-14 06:39] VITALS: BP 131/72; PULSE 63; RESP 16; O2SAT 97; BMI 24.7
--- NOTE | 2022-12-14 07:12 | W.ANESCHARGE ---
Anesthesia Charges Start Date/Time Anesthesia Start Date: 12/14/22 Anesthesia Start Time: 07:25 Stop Date/Time Anesthesia Stop Date: 12/14/22 Anesthesia Stop Time: 07:40 Summary Extremes of Age - Over 70 or under 1: MDA
--- NOTE | 2022-12-14 07:45 | W.ANESCHARGE ---
Anesthesia Charges Start Date/Time Anesthesia Start Date: 12/14/22 Anesthesia Start Time: 07:25 Stop Date/Time Anesthesia Stop Date: 12/14/22 Anesthesia Stop Time: 07:40
[2022-12-14 07:48] VITALS: BP 111/63; PULSE 57; RESP 16; O2SAT 96
[2022-12-14 07:54] VITALS: BP 108/63; PULSE 58; RESP 16; O2SAT 97
[2022-12-14 08:01] VITALS: BP 118/66; PULSE 51; RESP 16; O2SAT 96
[2022-12-14 08:03] LABS: Basophils Absolute Auto 0.02 K/uL (0.00-0.30); Basophils Percent Auto 0.2 % (0.0-3.0); Eosinophils Absolute Auto 0.23 K/uL (0.00-0.50); Eosinophils Percent Auto 2.3 % (0.0-7.0); Hematocrit 25.1 % (37.0-53.0); Immature Granulocytes Abs Auto 0.12 K/uL (0.00-0.30); Immature Granulocytes Pct Auto 1.2 %; Immature Reticulocyte Fraction 24.3 % (2.3-13.4); Lymphocytes Absolute Auto 2.97 K/uL (0.90-2.90); Lymphocytes Percent Auto 29.3 % (20-44); Mean Corpuscular HGB Conc 30 gm/dL (32-36); Mean Corpuscular Hemoglobin 28 pg (26-34); Mean Corpuscular Volume 94 fL (80-100); Platelet Count* 303 K/uL (140-440); Red Blood Count 2.68 m/uL (4.30-5.90); Reticulocyte Hemoglobin Equivi 28.1 pg (29.0-35.0); Reticulocyte Percent 5.5 % (0.5-2.0); Reticulocytes Absolute 0.15 # (0.03-0.08); White Blood Count* 10.15 K/uL (4.50-11.00)
[2022-12-14 09:06] LABS: Hemoglobin* 7.5 gm/dL (13.5-17.5); Slide Review Reflex No
== END 2022-12-14 08:12 | disposition home or self-care (01) ==
LOC: OP CLINIC 06:33
PROVIDERS: PCP Family Medicine; Visit Provider Internal Medicine Hematology & Oncology
DX: C91.10 Chronic lymphocytic leukemia of B-cell type not having achieved remission (principal)
CPT/HCPCS: 01112; 36415; 38222; 82270; 85025; 85045; 88184; 88185; 88237; 88264; 88271; 88275; 88305; 88311; 88313; 88342; 88360; 99100; 99284; A9270; J1644; J2001; J2704

== ENCOUNTER 2022-12-14 09:43 | Emergency (ER) | payer MEDICARE, BC, SELFPAY ==
[2022-12-14] VITALS (8 sets, daily range): BP systolic 149–169; BP diastolic 77–78; PULSE 63–69; RESP 18; TEMP 36.2; O2SAT 98–99; BMI 24.3
--- NOTE | 2022-12-14 10:13 | ED_ITS ---
HPI - General Adult General Time Seen by Provider: 10:14 Date Seen: 12/14/22 Chief complaint: GI Bleed Stated complaint: Low hemoglobin count Time Seen by Provider: 12/14/22 09:55 Source: patient and RN notes reviewed Mode of arrival: ambulatory Limitations: no limitations History of Present Illness HPI narrative: Patient is a 77-year-old male coming in after a bone marrow biopsy this morning. Recheck hemoglobin was found to be at 7.5. He was 8.9 yesterday. 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 They are considering doing monoclonal antibody treatment with him. He also has been anemic, was 8.9 yesterday. His oncologist notes that there has been iron deficiency with this. They are going to schedule him for colonoscopy. He notes he told his that he felt really good this morning. He denies any chest pain, no shortness of breath. Is not feeling overly fatigued or weak. He for the last 2 weeks has been on iron 3 times a day but notes that his stool did not turn dark until Tuesday. This was 3 days ago. Denies any abdominal pain, denies any baseline nausea or heartburn type symptoms. Patient is on Xarelto for anticoagulation for atrial fibrillation. Related Data Home Medications Medication Instructions Recorded Confirmed acalabrutinib 100 mg capsule 100 mg PO .Q24 12/07/21 12/14/22 (Calquence) rivaroxaban 20 mg tablet (Xarelto) 20 mg PO Q24H 12/07/21 12/14/22 alprazolam 0.25 mg tablet 0.25 mg PO DAILY PRN 12/16/21 12/14/22 famotidine 20 mg tablet (Pepcid) 20 mg PO DAILY 12/16/21 12/14/22 atorvastatin 20 mg tablet 20 mg PO .QHS 02/15/22 12/14/22 magnesium chloride 71.5 mg 71.5 mg PO QDAY 02/15/22 12/14/22 (magnesium chloride) tablet,delayed release (Slow-Mag) tamsulosin 0.4 mg capsule (Flomax) 0.4 mg PO QDAY 02/15/22 12/14/22 amiodarone 100 mg tablet 100 mg PO QDAY 11/11/22 12/14/22 lisinopril 10 mg tablet 10 mg PO ONCE 11/11/22 12/14/22 metoprolol tartrate 25 mg tablet 25 mg PO BID 11/11/22 12/14/22 sotalol 80 mg tablet 80 mg PO BID 12/14/22 12/14/22 Previous Rx's Medication Instructions Recorded omeprazole 40 mg capsule,delayed 40 mg PO DAILY #30 caps 12/14/22 release Allergies Allergy/AdvReac Type Severity Reaction Status Date / Time ibrutinib [From Imbruvica] Allergy Intermediate Rash Verified 12/14/22 09:58 Penicillins Allergy Verified 12/14/22 09:58 Review of Systems Status of ROS: Reports: 6 or more systems reviewed and unremarkable except as noted in History and below [facility] Medical History Anemia ?D64.9 - Anemia, unspecified (ICD-10) GERD (gastroesophageal reflux disease) ?K21.9 - Gastro-esophageal reflux disease without esophagitis (ICD-10) CAD (coronary artery disease) ?I25.10 - Atherosclerotic heart disease of [place] coronary artery without angina pectoris (ICD-10) Pulmonary nodules ?R91.8 - Other nonspecific abnormal finding of lung field (ICD-10) History of cardioversion ?Z98.890 - Other specified postprocedural states (ICD-10) CLL (chronic lymphocytic leukemia) (~08/2018) ?C91.10 - Chronic lymphocytic leukemia of B-cell type not having achieved remission (ICD-10) Malignant melanoma ?C43.9 - Malignant melanoma of skin, unspecified (ICD-10) Anxiety ?F41.9 - Anxiety disorder, unspecified (ICD-10) BPH with obstruction/lower urinary tract symptoms ?N40.1 - Benign prostatic hyperplasia with lower urinary tract symptoms (ICD- 10) ?N13.8 - Other obstructive and reflux uropathy (ICD-10) Prostate cancer ?C61 - Malignant neoplasm of prostate (ICD-10) Hypertension ?I10 - Essential (primary) hypertension (ICD-10) Paroxysmal atrial fibrillation ?I48.0 - Paroxysmal atrial fibrillation (ICD-10) Surgical History S/P mitral valve clip implantation (~2019) ?Z98.890 - Other specified postprocedural states (ICD-10) ?Z95.818 - Presence of other cardiac implants and grafts (ICD-10) History of tonsillectomy ?Z90.89 - Acquired absence of other organs (ICD-10) History of melanoma excision ?Z98.890 - Other specified postprocedural states (ICD-10) ?Z85.820 - Personal history of malignant melanoma of skin (ICD-10) History of cataract surgery ?Z98.49 - Cataract extraction status, unspecified eye (ICD-10) Hx of mitral valve repair ?Z98.890 - Other specified postprocedural states (ICD-10) Family History Other CHF (congestive heart failure) Hodgkins disease Social History Narrative: he is and here with his . He gets oncology care through [facility]. He gets primary care through Dr. Brian Coronado. He does not smoke. He drinks 1 glass of red wine daily. Smoking Status: Never smoker Do you use any of these nicotine containing products: None Second hand tobacco smoke exposure: No How often do you have a drink containing alcohol: never How often do you have six or more drinks on one occasion: Never AUDIT-C Alcohol total score: 0 Non-prescribed substance use: denies use service: No Exam Const: Vital Signs, click to edit/add: Vital Signs - 24 hr 12/14/22 09:51 12/14/22 09:51 12/14/22 09:52 Temperature 97.2 F L Pulse Rate 69 68 Pulse Rate [Pulse Oximeter] 67 Respiratory Rate 18 Blood Pressure 169/78 H Blood Pressure [Ri ght Upper Arm] 169/78 H Pulse Oximetry 99 99 98 Oxygen Delivery Me thod Room Air 12/14/22 10:00 12/14/22 10:02 12/14/22 10:15 Temperature Pulse Rate 66 66 64 Pulse Rate [Pulse Oximeter] Respiratory Rate Blood Pressure 149/77 H Blood Pressure [Ri ght Upper Arm] Pulse Oximetry 99 99 99 Oxygen Delivery Me thod 12/14/22 10:30 12/14/22 10:45 12/14/22 11:00 Temperature Pulse Rate 64 63 63 Pulse Rate [Pulse Oximeter] Respiratory Rate Blood Pressure Blood Pressure [Ri ght Upper Arm] Pulse Oximetry 99 98 99 Oxygen Delivery Me thod Documenting provider has reviewed patient's vital signs: yes Common normals: no apparent distress, average body habitus, oriented x3, no limitations, healthy appearing, alert and well nourished General appearance: cooperative, comfortable, well kempt and well developed HENMT: Common normals: normocephalic, head/scalp atraumatic, hearing grossly normal bilaterally and external nose normal Head and scalp: normocephalic and atraumatic Face and sinus: normal facial exam Nose: external nose normal Other: Has prominent bilateral lymph nodes that are nontender, definitely enlarged along the corner/angle of his jaw bilaterally. These are visibly enlarged. Patient states they have been this way for a while. Eye: Common normals: PERRL, EOMs intact bilaterally, conjunctivae normal and no scleral icterus Conjunctiva: conjunctiva(e) normal Pupil: PERRL Neck & C-Spine: Common normals: full ROM, no lymphadenopathy, supple, no meningeal signs, no JVD and thyroid normal Thyroid: thyroid normal Lymph: Lymphatic: lymphadenopathy Chest: Common normals: inspection of chest normal and palpation of chest normal Resp: Common normals: normal respiratory effort, no retractions, no use of accessory muscles and clear to auscultation bilaterally Effort & inspection: able to speak in complete sentences Auscultation: clear to auscultation bilaterally Cardio: Common normals: no JVD Other: Heart sounds are mostly regular, maybe a little sense of irregularity to it but rate is currently slow, does have known underlying atrial fibrillation. Hear no murmur. GI: Common normals: Normal to inspection, nondistended, normoactive bowel sounds present, soft to palpation, non-tender and no hepatosplenomegaly Palpation: soft and no hepatosplenomegaly Other: Will order fecal occult blood testing with fit testing. Stool guaiac will be positive due to iron use. Neuro: Common normals: oriented x3 Sensorium/orientation: alert Meningeal signs: no meningeal signs Psych: Appearance: well kempt Course Reevaluation(s) Time of Reevaluation #1: 11:16 Reevaluation #1: Did perform rectal exam to collect the specimen for the fit testing. Externally there was no visible source of bleeding, no concerning hemorrhoids. He had good rectal tone, there is some small amount firm pieces of stool higher up. Did see dark tarry appearing stool on the gloved finger. This was scraped from the gloved finger and will send for fit testing. Time of Reevaluation #2: 11:45 Reevaluation #2: Have reviewed with patient that the hospitalist does feel he could obtain a transfusion, withhold anticoagulant and have outpatient EGD and colonoscopy given the stability. Unfortunately at this time, have also found out that we do not have bed availability for him. Thus, think this plan is going to have to be outpatient as long as he remains stable. The outside institutions are largely unable to accept transfers from the last week checked. I do think withholding anticoagulant, giving him a L of blood in getting him set up for EGD and colonoscopy in a timely fashion is a reasonable plan for him. We will stop his Pepcid and put him on omeprazole to cover for possible GI sources like gastritis or ulcer. Consultations Consultation #1: Spoke with Judy from [facility] on this patient. This patient reportedly had dropped 1.5 g of hemoglobin from a lab check yesterday. Reviewed with Callie that his white count is also down by almost 2000, platelets are down. We discussed that we need to decide anticoagulation, whether is safe to be on it or not. Will attempt to collect fecal occult blood testing which should not be confounded by him being on iron. His iron certainly could cause the change in stool coloration. I do think that he should have follow-up endoscopy and colonoscopy if he does have an iron deficiency anemia confounding his CLL. Whether not to transfuse is a bit uncertain at this time, I have ordered type and screen any unit for transfusion given that he is under 8. He is really not completely symptomatic on my discussion with him. Time: 10:28 Consultation #2: Did review the case with Dr. Mendes. She will accept the patient if he is really uncomfortable going home, but but unfortunately, we have no beds for the patient at this time. Dr. Mendes does believe that he is stable to try to do this outpatient. I did subsequently talk to Judy in [facility] at 11:51 p.m., she is comfortable with the plan, will watch him while he gets blood down there and certainly change status if there is any evidence of any increased bleeding. She will get a follow-up hemoglobin set for him to. Time: 11:41 Vital Signs Vital signs: Initial Vital Signs Temperature 97.2 F L 12/14/22 09:51 Temperature Source Temporal Artery Scan 12/14/22 09:51 Pulse Rate 69 12/14/22 09:51 Respiratory Rate 18 12/14/22 09:51 Blood Pressure 169/78 H 12/14/22 09:51 Blood Pressure Mean 108 H 12/14/22 09:51 Pulse Oximetry 99 12/14/22 09:51 Oxygen Delivery Method Room Air 12/14/22 09:51 Vital Signs Temperature 97.2 F L 12/14/22 09:51 Pulse Rate 69 12/14/22 09:51 Respiratory Rate 18 12/14/22 09:51 Blood Pressure 169/78 H 12/14/22 09:51 Pulse Oximetry 99 12/14/22 09:51 Oxygen Delivery Method Room Air 12/14/22 09:51 Temperature 97.2 F L 12/14/22 09:51 Pulse Rate 63 12/14/22 11:00 Respiratory Rate 18 12/14/22 09:51 Blood Pressure 149/77 H 12/14/22 10:02 Pulse Oximetry 99 12/14/22 11:00 Oxygen Delivery Method Room Air 12/14/22 09:51 Medical Decision Making Lab Data Labs: Lab Results 12/14/22 12/14/22 Range/Units 10:32 11:15 Stool Occult Blood Positive (Negative) Blood Type B Positive Antibody Screen NEGATIVE Crossmatch (AHG) See Detail Discharge Plan Discharge Clinical Impression: CLL (chronic lymphocytic leukemia), Anemia, Melena Patient Disposition: Xfer Other Condition: Stable Instructions: Melena (ED) Additional Instructions: Proceed to [facility] to have a 1 unit packed red blood cell transfusion. Stop the Pepcid and go on omeprazole for the time being. I have placed orders for EGD and colonoscopy to be done, you should get a call from the endoscopy center. [facility] will help set up a follow-up hemoglobin/CBC recheck. You do need to follow up with your primary care provider within the next week. If you should develop any evidence of bright red blood, terrance bleeding from the rectum, do need to return emergently. You need to stop your Xarelto until further notice. I do believe that withholding the Xarelto will help diminish further risk of bleeding from the gastrointestinal tract. The omeprazole can help protect the stomach from things like gastritis or underlying ulcers that may be causing you to lose blood as well. It is important to have the follow-up scopes done in further evaluation of this diagnosis. Activity Level: Activity as Tolerated Prescriptions: New omeprazole 40 mg capsule,delayed release(DR/EC) 40 mg PO DAILY Qty: 30 0RF No Action Slow-Mag 71.5 mg tablet,delayed release (DR/EC) 71.5 mg PO QDAY tamsulosin [Flomax] 0.4 mg capsule 0.4 mg PO QDAY amiodarone 100 mg tablet 100 mg PO QDAY Patient Comments: dose started at 400mg/day X 14 days currently on 200mg X 28 days then will take 100mg/day metoprolol tartrate 25 mg tablet 25 mg PO BID alprazolam 0.25 mg tablet 0.25 mg PO DAILY PRN famotidine [Pepcid] 20 mg tablet 20 mg PO DAILY Xarelto 20 mg tablet 20 mg PO Q24H Calquence 100 mg capsule 100 mg PO .Q24 atorvastatin 20 mg tablet 20 mg PO .QHS lisinopril 10 mg tablet 10 mg PO ONCE sotalol 80 mg tablet 80 mg PO BID Stand Alone Forms: [employer] Info Instructions
[2022-12-14 11:32] LABS: Fecal Occult Blood* Positive (Negative)
[2022-12-14] MEDS: ACETAMINOPHEN 500 MG TABLET 1000 MG PO (12:23)
--- NOTE | 2022-12-14 13:10 | ED.NURSE ---
Patient was discharged to [facility] for 1unit PRBCs. PIV left in. Patient requested tylenol due to his bone marrow biopsy he had. Verified with [facility] that this was okay and yes it was. Patient brought by wheelchair to [facility]. all questions answered.
--- NOTE | 2022-12-14 13:51 | ED.NURSE ---
[facility] pharmacist called re: prescription for omeprazole. High risk warning against patient's cancer medications related to decreased secreations. Pharmacy recommends sucralfate as alternative. Dr. Martinez informed, would prefer PPI for protection, notes to have patient continue his prilosec as has been doing. Pharmacist understands and will inform patient.
== END 2022-12-14 12:25 | disposition other institution (70) ==
PROVIDERS: Emergency Provider Family Medicine
DX: D64.9 Anemia, unspecified (principal); C91.10 Chronic lymphocytic leukemia of B-cell type not having achieved remission
CPT/HCPCS: 36415; 82270; 86850; 86900; 86901; 86922; 99284; A9270

== ENCOUNTER 2022-12-21 07:53 | Outpatient (CLI) | payer MEDICARE, BC, SELFPAY ==
--- NOTE | 2022-12-21 10:03 | W.ANESCHARGE ---
Anesthesia Charges Start Date/Time Anesthesia Start Date: 12/21/22 Anesthesia Start Time: 09:12 Stop Date/Time Anesthesia Stop Date: 12/21/22 Anesthesia Stop Time: 10:01
--- NOTE | 2022-12-21 11:25 | W.ANESCHARGE ---
Anesthesia Charges Start Date/Time Anesthesia Start Date: 12/21/22 Anesthesia Start Time: 09:12 Stop Date/Time Anesthesia Stop Date: 12/21/22 Anesthesia Stop Time: 10:01 Summary Extremes of Age - Over 70 or under 1: MDA
== END 2022-12-21 07:54 | disposition home or self-care (01) ==
LOC: OP CLINIC 07:53
PROVIDERS: PCP Student in an Organized Health Care Education/Training Program; Visit Provider Surgery
DX: D50.9 Iron deficiency anemia, unspecified (principal); K64.8 Other hemorrhoids; K63.5 Polyp of colon; K64.4 Residual hemorrhoidal skin tags; K92.2 Gastrointestinal hemorrhage, unspecified
CPT/HCPCS: 00813; 43239; 45385; 88305; 99100; J2704

== ENCOUNTER 2023-03-03 09:30 | Outpatient (RCR) | payer MEDICARE, BC, SELFPAY ==
--- NOTE | 2022-08-17 12:05 | ONC.NURNOTE ---
[place] [facility] [place] and reviewed [place] Dr Barnett no changes- continues on once daily calquence next lab and appt called to Freeman he had lab [place] [facility] Freeman is on day 12 of COVID symptoms, no further fever, continues with upper respiratory symptoms
[2022-09-13 12:39] LABS: Basophils Percent Auto 0.3 % (0.0-3.0); Eosinophils Percent Auto 2.4 % (0.0-7.0); Hematocrit 37.8 % (37.0-53.0); Immature Granulocytes Pct Auto 0.3 %; Lymphocytes Percent Auto 35.7 % (20-44); Mean Corpuscular HGB Conc 32 gm/dL (32-36); Mean Corpuscular Hemoglobin 29 pg (26-34); Mean Corpuscular Volume 92 fL (80-100); Monocytes Percent Auto 6.7 % (0.0-11.0); Neutrophils Percent Auto 54.6 % (42.0-72.0); Platelet Count* 296 K/uL (140-440); RDW Coefficient of Variation % 13.4 % (11.5-15.5); Red Blood Count 4.09 m/uL (4.30-5.90); White Blood Count* 11.08 K/uL (4.50-11.00)
[2022-09-13 12:41] LABS: Slide Review Reflex No
[2022-09-13 12:53] LABS: Albumin* 4.1 g/dL (3.3-5.0)
[2022-09-13 12:54] LABS: Chloride* 102 mmol/L (96-114); Potassium* 4.2 mmol/L (3.6-5.1); Sodium* 133 mmol/L (135-149)
[2022-09-13 12:56] LABS: Aspartate Amino Transferase* 22 U/L (12-35); Bilirubin Total* 1.3 mg/dL (0.1-1.5); Carbon Dioxide* 27 mmol/L (20-32); Creatinine* 0.9 mg/dL (0.5-1.5); Estimated Glomerular Filt Rate 88 ml/min; Total Protein* 6.7 g/dL (6.0-8.3)
[2022-09-13 12:57] LABS: Alanine Aminotransferase* 14 U/L (4-50); Alkaline Phosphatase* 69 U/L (40-150); Blood Urea Nitrogen* 12 mg/dL (7-30); Calcium* 8.9 mg/dL (8.4-10.6); Glucose* 82 mg/dL (60-115); Lactate Dehydrogenase* 167 U/L (120-246)
--- NOTE | 2022-10-12 13:07 | ONC.NURNOTE ---
lab results called to Freeman roman reports continued enlarged cervical nodes and noted gradual increase in WBC Per patient request- next RTC appt moved up to see Dr Hurtado next month will continue with monthly lab monitoring
[2022-11-08 10:44] LABS: Basophils Percent Auto 0.2 % (0.0-3.0); Eosinophils Percent Auto 1.7 % (0.0-7.0); Hematocrit 31.1 % (37.0-53.0); Hemoglobin* 9.8 gm/dL (13.5-17.5); Immature Granulocytes Pct Auto 0.3 %; Mean Corpuscular HGB Conc 32 gm/dL (32-36); Mean Corpuscular Hemoglobin 30 pg (26-34); Mean Corpuscular Volume 95 fL (80-100); Monocytes Percent Auto 4.2 % (0.0-11.0); Neutrophils Percent Auto 60.6 % (42.0-72.0); Platelet Count* 300 K/uL (140-440); RDW Coefficient of Variation % 14.1 % (11.5-15.5); Red Blood Count 3.29 m/uL (4.30-5.90); White Blood Count* 12.33 K/uL (4.50-11.00)
[2022-11-08 10:50] LABS: Slide Review Reflex No
[2022-11-08 11:05] LABS: Chloride* 100 mmol/L (96-114)
[2022-11-08 11:06] LABS: Potassium* 4.4 mmol/L (3.6-5.1); Sodium* 134 mmol/L (135-149)
[2022-11-08 11:08] LABS: Alkaline Phosphatase* 72 U/L (40-150); Aspartate Amino Transferase* 19 U/L (12-35); Bilirubin Total* 2.7 mg/dL (0.1-1.5); Blood Urea Nitrogen* 16 mg/dL (7-30); Carbon Dioxide* 23 mmol/L (20-32); Creatinine* 1.2 mg/dL (0.5-1.5); Estimated Glomerular Filt Rate 62 ml/min; Total Protein* 6.5 g/dL (6.0-8.3)
[2022-11-08 11:09] LABS: Alanine Aminotransferase* 14 U/L (4-50); Calcium* 8.7 mg/dL (8.4-10.6); Glucose* 117 mg/dL (60-115)
[2022-11-11 15:32] LABS: Basophils Absolute Auto 0.01 K/uL (0.00-0.30); Basophils Percent Auto 0.1 % (0.0-3.0); Eosinophils Absolute Auto 0.28 K/uL (0.00-0.50); Eosinophils Percent Auto 2.7 % (0.0-7.0); Hematocrit 30.1 % (37.0-53.0); Hemoglobin* 9.6 gm/dL (13.5-17.5); Immature Granulocytes Abs Auto 0.11 K/uL (0.00-0.30); Immature Granulocytes Pct Auto 1.1 %; Lymphocytes Absolute Auto 3.22 K/uL (0.90-2.90); Lymphocytes Percent Auto 30.8 % (20-44); Mean Corpuscular HGB Conc 32 gm/dL (32-36); Mean Corpuscular Hemoglobin 30 pg (26-34); Mean Corpuscular Volume 94 fL (80-100); Monocytes Percent Auto 6.1 % (0.0-11.0); Neutrophils Absolute Auto 6.19 K/uL (1.7-7.0); Neutrophils Percent Auto 59.2 % (42.0-72.0); Platelet Count* 301 K/uL (140-440); RDW Coefficient of Variation % 13.9 % (11.5-15.5); Red Blood Count 3.21 m/uL (4.30-5.90); White Blood Count* 10.45 K/uL (4.50-11.00)
[2022-11-11 15:33] LABS: Slide Review Reflex No
[2022-11-11 15:48] LABS: Bilirubin Direct* 0.1 mg/dL (0.0-0.5); Bilirubin Total* 2.3 mg/dL (0.1-1.5); Lactate Dehydrogenase* 216 U/L (120-246)
[2022-11-13 19:26] LABS: Haptoglobin 148 mg/dL (30-200)
--- NOTE | 2022-11-16 15:02 | ONC.NURNOTE ---
lab results emailed to Dr Hurtado and called to patient hg noted Dr Hurtado also requesting a CT Scan to be ordered
--- NOTE | 2022-11-22 11:49 | ONC.NURNOTE ---
Patient has cardiology appt on Tuesday reports feeling very fatigued due for CBC to do labs this afternoon instead
[2022-11-22 13:30] LABS: Basophils Absolute Auto 0.02 K/uL (0.00-0.30); Basophils Percent Auto 0.2 % (0.0-3.0); Eosinophils Absolute Auto 0.16 K/uL (0.00-0.50); Eosinophils Percent Auto 1.5 % (0.0-7.0); Hematocrit 27.3 % (37.0-53.0); Hemoglobin* 8.6 gm/dL (13.5-17.5); Immature Granulocytes Abs Auto 0.04 K/uL (0.00-0.30); Immature Granulocytes Pct Auto 0.4 %; Lymphocytes Absolute Auto 3.26 K/uL (0.90-2.90); Lymphocytes Percent Auto 31.3 % (20-44); Mean Corpuscular HGB Conc 32 gm/dL (32-36); Mean Corpuscular Hemoglobin 29 pg (26-34); Mean Corpuscular Volume 93 fL (80-100); Monocytes Percent Auto 5.5 % (0.0-11.0); Neutrophils Absolute Auto 6.35 K/uL (1.7-7.0); Neutrophils Percent Auto 61.1 % (42.0-72.0); Platelet Count* 371 K/uL (140-440); RDW Coefficient of Variation % 13.5 % (11.5-15.5); Red Blood Count 2.95 m/uL (4.30-5.90)
[2022-11-22 13:39] LABS: Slide Review Reflex No
[2022-11-22 14:22] LABS: Bilirubin Total* 1.8 mg/dL (0.1-1.5)
--- NOTE | 2022-11-23 10:47 | ONC.NURNOTE ---
Lab results from past [address] Nazario- cardiology at [phone] appt 11/24/22 per Freeman's request
--- NOTE | 2022-11-26 12:19 | ONC.NURNOTE ---
next lab and follow up appts moved to Tuesday and - pt agreeable with this plan he is not golfing due to the fatigue understands to stay hydrated and periods of rest during the day avoid time outside in the heat of the day
[2022-11-29 10:27] LABS: Basophils Percent Auto 0.4 % (0.0-3.0); Eosinophils Percent Auto 1.8 % (0.0-7.0); Hematocrit 27.6 % (37.0-53.0); Hemoglobin* 8.6 gm/dL (13.5-17.5); Immature Granulocytes Pct Auto 0.3 %; Mean Corpuscular HGB Conc 31 gm/dL (32-36); Mean Corpuscular Hemoglobin 28 pg (26-34); Mean Corpuscular Volume 91 fL (80-100); Monocytes Percent Auto 4.3 % (0.0-11.0); Neutrophils Percent Auto 64.2 % (42.0-72.0); Platelet Count* 418 K/uL (140-440); RDW Coefficient of Variation % 13.4 % (11.5-15.5); Red Blood Count 3.03 m/uL (4.30-5.90); White Blood Count* 11.99 K/uL (4.50-11.00)
[2022-11-29 10:32] LABS: Slide Review Reflex No
[2022-11-29 11:17] LABS: Ferritin* 59.6 ng/mL (17.9-464.0)
[2022-11-29 12:22] LABS: Vitamin B12* 269 pg/mL (243-894)
[2022-11-30 12:51] LABS: Total Iron Binding Capacity 441 ug/dL (261-462)
[2022-11-30 12:53] LABS: Iron* 32 ug/dL (49-181)
[2022-11-30 12:56] LABS: Percent Iron Saturation 7 % (20-50)
[2022-11-30 16:52] LABS: Folate, Serum >22.3 ng/mL (>=5.9)
[2022-12-02 14:52] LABS: MMA Vitamin B12 Status 0.11 umol/L (0.00-0.40)
[2022-12-06 10:39] LABS: Basophils Percent Auto 0.2 % (0.0-3.0); Eosinophils Percent Auto 1.2 % (0.0-7.0); Hematocrit 27.9 % (37.0-53.0); Hemoglobin* 8.5 gm/dL (13.5-17.5); Immature Granulocytes Pct Auto 0.4 %; Lymphocytes Percent Auto 30.7 % (20-44); Mean Corpuscular HGB Conc 31 gm/dL (32-36); Mean Corpuscular Hemoglobin 28 pg (26-34); Mean Corpuscular Volume 91 fL (80-100); Monocytes Percent Auto 4.4 % (0.0-11.0); Neutrophils Percent Auto 63.1 % (42.0-72.0); Platelet Count* 365 K/uL (140-440); RDW Coefficient of Variation % 14.2 % (11.5-15.5); Red Blood Count 3.08 m/uL (4.30-5.90); White Blood Count* 13.74 K/uL (4.50-11.00)
[2022-12-06 10:42] LABS: Slide Review Reflex No
[2022-12-06 10:48] LABS: Chloride* 100 mmol/L (96-114)
[2022-12-06 10:49] LABS: Potassium* 3.8 mmol/L (3.6-5.1); Sodium* 133 mmol/L (135-149)
[2022-12-06 10:51] LABS: Carbon Dioxide* 23 mmol/L (20-32); Creatinine* 1.1 mg/dL (0.5-1.5); Est. Creatinine Clearance* 56.24; Estimated Glomerular Filt Rate 69 ml/min
[2022-12-06 10:52] LABS: Alanine Aminotransferase* 18 U/L (4-50); Alkaline Phosphatase* 91 U/L (40-150); Aspartate Amino Transferase* 20 U/L (12-35); Bilirubin Total* 1.6 mg/dL (0.1-1.5); Blood Urea Nitrogen* 11 mg/dL (7-30); Calcium* 8.5 mg/dL (8.4-10.6); Glucose* 150 mg/dL (60-115); Total Protein* 6.5 g/dL (6.0-8.3)
--- NOTE | 2022-12-06 11:20 | ONC.NURNOTE ---
called with lab results. recheck lab next week. results left for
[2022-12-13 10:41] LABS: Basophils Percent Auto 0.2 % (0.0-3.0); Eosinophils Percent Auto 1.1 % (0.0-7.0); Hematocrit 29.6 % (37.0-53.0); Hemoglobin* 8.9 gm/dL (13.5-17.5); Immature Granulocytes Pct Auto 0.6 %; Mean Corpuscular HGB Conc 30 gm/dL (32-36); Mean Corpuscular Hemoglobin 28 pg (26-34); Mean Corpuscular Volume 93 fL (80-100); Monocytes Percent Auto 5.3 % (0.0-11.0); Neutrophils Percent Auto 61.8 % (42.0-72.0); Platelet Count* 359 K/uL (140-440); RDW Coefficient of Variation % 16.9 % (11.5-15.5); Red Blood Count 3.17 m/uL (4.30-5.90); White Blood Count* 12.37 K/uL (4.50-11.00)
[2022-12-13 10:47] LABS: Slide Review Reflex No
--- NOTE | 2022-12-14 09:22 | ONC.NURNOTE ---
Patient in 12/13/22 for weekly labs and did tell newspaper writer his stools have become black. He recently started iron tablets and denies red blood and hemoglobin stable so patient told probably from iron tablets. Today patient in for bonemarrow and critical hemoglobin called to [facility] of 7.5. Lab did recheck and that was correct so newspaper writer called home and patient sleeping but will wake patient up and bring him in for assessment of GI bleed. Rip/Mould Operator called and let ED know about patient
[2022-12-14 13:25] VITALS: BP 158/86; PULSE 61; RESP 16; TEMP 36.3; O2SAT 98
--- NOTE | 2022-12-15 07:44 | ONC.NURNOTE ---
Late entry for 12/14/22. Pt arrived from ED to receive 1 unit of blood in the [facility] dept. Pt tolerated transfusion well without difficulty. See downtime blood transfusion worksheet scanned in for vital signs and assessment.
[2022-12-15 11:42] LABS: Basophils Percent Auto 0.2 % (0.0-3.0); Eosinophils Percent Auto 0.9 % (0.0-7.0); Hematocrit 30.4 % (37.0-53.0); Hemoglobin* 9.5 gm/dL (13.5-17.5); Immature Granulocytes Pct Auto 0.4 %; Lymphocytes Percent Auto 27.8 % (20-44); Mean Corpuscular HGB Conc 31 gm/dL (32-36); Mean Corpuscular Hemoglobin 29 pg (26-34); Mean Corpuscular Volume 92 fL (80-100); Monocytes Percent Auto 4.1 % (0.0-11.0); Neutrophils Percent Auto 66.6 % (42.0-72.0); Platelet Count* 328 K/uL (140-440); RDW Coefficient of Variation % 17.8 % (11.5-15.5); White Blood Count* 12.72 K/uL (4.50-11.00)
[2022-12-15 11:55] LABS: Slide Review Reflex No
--- NOTE | 2022-12-15 16:51 | ONC.NURNOTE ---
Patient in for repeat CBC and hemoglobin up to 9.5. Patient scheduled for endoscopy/colonoscopy on Friday 12/22 Will return on Tuesday for repeat CBC
[2022-12-20 10:43] LABS: Basophils Percent Auto 0.3 % (0.0-3.0); Eosinophils Percent Auto 1.5 % (0.0-7.0); Hematocrit 33.5 % (37.0-53.0); Hemoglobin* 10.4 gm/dL (13.5-17.5); Immature Granulocytes Pct Auto 0.3 %; Lymphocytes Percent Auto 27.9 % (20-44); Mean Corpuscular HGB Conc 31 gm/dL (32-36); Mean Corpuscular Hemoglobin 29 pg (26-34); Mean Corpuscular Volume 93 fL (80-100); Monocytes Percent Auto 5.4 % (0.0-11.0); Neutrophils Percent Auto 64.6 % (42.0-72.0); Platelet Count* 326 K/uL (140-440); Red Blood Count 3.62 m/uL (4.30-5.90)
[2022-12-20 10:50] LABS: Slide Review Reflex No
[2022-12-27 10:47] LABS: Basophils Absolute Auto 0.04 K/uL (0.00-0.30); Basophils Percent Auto 0.4 % (0.0-3.0); Eosinophils Absolute Auto 0.13 K/uL (0.00-0.50); Eosinophils Percent Auto 1.2 % (0.0-7.0); Hematocrit 32.1 % (37.0-53.0); Hemoglobin* 9.9 gm/dL (13.5-17.5); Immature Granulocytes Abs Auto 0.04 K/uL (0.00-0.30); Immature Granulocytes Pct Auto 0.4 %; Lymphocytes Absolute Auto 2.66 K/uL (0.90-2.90); Lymphocytes Percent Auto 24.7 % (20-44); Mean Corpuscular HGB Conc 31 gm/dL (32-36); Mean Corpuscular Hemoglobin 29 pg (26-34); Mean Corpuscular Volume 93 fL (80-100); Monocytes Percent Auto 3.4 % (0.0-11.0); Neutrophils Absolute Auto 7.55 K/uL (1.7-7.0); Neutrophils Percent Auto 69.9 % (42.0-72.0); Platelet Count* 293 K/uL (140-440); RDW Coefficient of Variation % 16.7 % (11.5-15.5); Red Blood Count 3.47 m/uL (4.30-5.90); White Blood Count* 10.79 K/uL (4.50-11.00)
[2022-12-27 10:49] LABS: Slide Review Reflex No
[2022-12-27 11:01] LABS: Albumin* 3.7 g/dL (3.3-5.0); Chloride* 101 mmol/L (96-114); Potassium* 3.8 mmol/L (3.6-5.1); Sodium* 133 mmol/L (135-149)
[2022-12-27 11:03] LABS: Bilirubin Total* 1.7 mg/dL (0.1-1.5); Creatinine* 0.9 mg/dL (0.5-1.5); Est. Creatinine Clearance* 61.86; Estimated Glomerular Filt Rate 88 ml/min
[2022-12-27 11:04] LABS: Alanine Aminotransferase* 15 U/L (4-50); Alkaline Phosphatase* 78 U/L (40-150); Aspartate Amino Transferase* 21 U/L (12-35); Blood Urea Nitrogen* 12 mg/dL (7-30); Calcium* 8.3 mg/dL (8.4-10.6); Carbon Dioxide* 23 mmol/L (20-32); Glucose* 126 mg/dL (60-115); Total Protein* 6.2 g/dL (6.0-8.3)
[2023-01-03 11:08] LABS: Albumin* 3.7 g/dL (3.3-5.0); Chloride* 101 mmol/L (96-114)
[2023-01-03 11:09] LABS: Potassium* 3.8 mmol/L (3.6-5.1); Sodium* 132 mmol/L (135-149)
[2023-01-03 11:11] LABS: Alkaline Phosphatase* 71 U/L (40-150); Aspartate Amino Transferase* 20 U/L (12-35); Bilirubin Total* 2.2 mg/dL (0.1-1.5); Blood Urea Nitrogen* 14 mg/dL (7-30); Carbon Dioxide* 22 mmol/L (20-32); Est. Creatinine Clearance* 61.86; Estimated Glomerular Filt Rate 78 ml/min; Total Protein* 6.1 g/dL (6.0-8.3)
[2023-01-03 11:12] LABS: Alanine Aminotransferase* 16 U/L (4-50); Calcium* 8.5 mg/dL (8.4-10.6); Glucose* 190 mg/dL (60-115)
[2023-01-03 11:13] LABS: Basophils Absolute Auto 0.04 K/uL (0.00-0.30); Basophils Percent Auto 0.4 % (0.0-3.0); Eosinophils Absolute Auto 0.15 K/uL (0.00-0.50); Eosinophils Percent Auto 1.4 % (0.0-7.0); Hematocrit 30.2 % (37.0-53.0); Hemoglobin* 9.4 gm/dL (13.5-17.5); Immature Granulocytes Abs Auto 0.04 K/uL (0.00-0.30); Immature Granulocytes Pct Auto 0.4 %; Lymphocytes Absolute Auto 2.78 K/uL (0.90-2.90); Mean Corpuscular HGB Conc 31 gm/dL (32-36); Mean Corpuscular Hemoglobin 29 pg (26-34); Mean Corpuscular Volume 94 fL (80-100); Monocytes Percent Auto 3.8 % (0.0-11.0); Neutrophils Absolute Auto 7.26 K/uL (1.7-7.0); Platelet Count* 325 K/uL (140-440); RDW Coefficient of Variation % 16.9 % (11.5-15.5); Red Blood Count 3.23 m/uL (4.30-5.90); White Blood Count* 10.68 K/uL (4.50-11.00)
[2023-01-03 11:21] LABS: Slide Review Reflex No
--- NOTE | 2023-01-03 16:19 | ONC.NURNOTE ---
Addendum entered and electronically signed by Judy Rendon APRN 01/07/23 15:00: Discussed with Dr. Birdie Hurtado on 01/06/23. No change to current treatment plan. Continue with weekly lab monitoring and symptom monitoring at this time. Original Note: Labs drawn today showing elevated Bilirubin and decreasing Hgb. Candy Catcher called pt; he is feeling well. Trend in labs and recent visit notes sent to Dr. Hurtado to review and determine if intervention needed or continue with weekly labs.
--- NOTE | 2023-01-07 15:54 | PC.NURSE ---
Discussed pt's lab results with Judy Renodn APRN today. Judy spoke with Dr. Hurtado and was given instruction to continue treatment with no changes at this time. This was communicated to Freeman. Lab appt on 01/10/2023 was confirmed.
[2023-01-10 10:46] LABS: Basophils Percent Auto 0.2 % (0.0-3.0); Eosinophils Percent Auto 1.1 % (0.0-7.0); Hematocrit 32.2 % (37.0-53.0); Hemoglobin* 9.9 gm/dL (13.5-17.5); Immature Granulocytes Pct Auto 0.4 %; Lymphocytes Percent Auto 27.4 % (20-44); Mean Corpuscular HGB Conc 31 gm/dL (32-36); Mean Corpuscular Hemoglobin 29 pg (26-34); Mean Corpuscular Volume 95 fL (80-100); Monocytes Percent Auto 3.4 % (0.0-11.0); Neutrophils Percent Auto 67.5 % (42.0-72.0); Platelet Count* 348 K/uL (140-440); RDW Coefficient of Variation % 16.6 % (11.5-15.5); White Blood Count* 11.98 K/uL (4.50-11.00)
[2023-01-10 10:53] LABS: Slide Review Reflex No
[2023-01-10 15:42] LABS: Albumin* 3.8 g/dL (3.3-5.0); Chloride* 98 mmol/L (96-114)
[2023-01-10 15:43] LABS: Sodium* 133 mmol/L (135-149)
[2023-01-10 15:45] LABS: Alkaline Phosphatase* 83 U/L (40-150); Aspartate Amino Transferase* 80 U/L (12-35); Bilirubin Total* 2.2 mg/dL (0.1-1.5); Blood Urea Nitrogen* 12 mg/dL (7-30); Carbon Dioxide* 28 mmol/L (20-32); Creatinine* 1.1 mg/dL (0.5-1.5); Est. Creatinine Clearance* 56.24; Estimated Glomerular Filt Rate 69 ml/min; Total Protein* 6.4 g/dL (6.0-8.3)
[2023-01-10 15:46] LABS: Alanine Aminotransferase* 16 U/L (4-50); Calcium* 8.5 mg/dL (8.4-10.6); Glucose* 157 mg/dL (60-115)
--- NOTE | 2023-01-12 14:45 | ONC.NURNOTE ---
labs reviewed by Dr. Naidu and called to pt.
[2023-01-17 10:44] LABS: Basophils Absolute Auto 0.03 K/uL (0.00-0.30); Basophils Percent Auto 0.3 % (0.0-3.0); Eosinophils Absolute Auto 0.14 K/uL (0.00-0.50); Eosinophils Percent Auto 1.3 % (0.0-7.0); Hematocrit 30.5 % (37.0-53.0); Hemoglobin* 9.4 gm/dL (13.5-17.5); Immature Granulocytes Abs Auto 0.02 K/uL (0.00-0.30); Immature Granulocytes Pct Auto 0.2 %; Lymphocytes Absolute Auto 3.04 K/uL (0.90-2.90); Lymphocytes Percent Auto 27.8 % (20-44); Mean Corpuscular HGB Conc 31 gm/dL (32-36); Mean Corpuscular Hemoglobin 30 pg (26-34); Mean Corpuscular Volume 96 fL (80-100); Neutrophils Absolute Auto 7.27 K/uL (1.7-7.0); Neutrophils Percent Auto 66.4 % (42.0-72.0); Platelet Count* 304 K/uL (140-440); RDW Coefficient of Variation % 16.5 % (11.5-15.5); Red Blood Count 3.17 m/uL (4.30-5.90); White Blood Count* 10.94 K/uL (4.50-11.00)
[2023-01-17 10:48] LABS: Slide Review Reflex No
[2023-01-17 11:13] LABS: Albumin* 3.5 g/dL (3.3-5.0); Chloride* 100 mmol/L (96-114); Sodium* 132 mmol/L (135-149)
[2023-01-17 11:15] LABS: Est. Creatinine Clearance* 61.86; Estimated Glomerular Filt Rate 78 ml/min
[2023-01-17 11:16] LABS: Alanine Aminotransferase* 14 U/L (4-50); Alkaline Phosphatase* 77 U/L (40-150); Aspartate Amino Transferase* 20 U/L (12-35); Blood Urea Nitrogen* 11 mg/dL (7-30); Calcium* 8.3 mg/dL (8.4-10.6); Carbon Dioxide* 24 mmol/L (20-32); Glucose* 147 mg/dL (60-115); Total Protein* 5.6 g/dL (6.0-8.3)
--- NOTE | 2023-01-17 12:15 | ONC.NURNOTE ---
Labs reviewed with Freeman patient aware of low sodium and has some potato chips at home to eat, will try to use more table salt calcium noted- Freeman has tums at home, he had stopped tums due to a drug interaction, but is no longer on that medication and will add a tums in the pm next lab in 1 week
[2023-01-24 10:51] LABS: Basophils Absolute Auto 0.02 K/uL (0.00-0.30); Basophils Percent Auto 0.2 % (0.0-3.0); Eosinophils Absolute Auto 0.14 K/uL (0.00-0.50); Eosinophils Percent Auto 1.3 % (0.0-7.0); Hemoglobin* 9.5 gm/dL (13.5-17.5); Immature Granulocytes Abs Auto 0.03 K/uL (0.00-0.30); Immature Granulocytes Pct Auto 0.3 %; Lymphocytes Absolute Auto 3.07 K/uL (0.90-2.90); Lymphocytes Percent Auto 28.7 % (20-44); Mean Corpuscular HGB Conc 31 gm/dL (32-36); Mean Corpuscular Hemoglobin 30 pg (26-34); Mean Corpuscular Volume 97 fL (80-100); Neutrophils Absolute Auto 7.02 K/uL (1.7-7.0); Neutrophils Percent Auto 65.5 % (42.0-72.0); Platelet Count* 300 K/uL (140-440); RDW Coefficient of Variation % 15.7 % (11.5-15.5); Red Blood Count 3.19 m/uL (4.30-5.90); White Blood Count* 10.71 K/uL (4.50-11.00)
[2023-01-24 11:01] LABS: Slide Review Reflex No
--- NOTE | 2023-01-24 11:31 | ONC.NURNOTE ---
lab results noted and reviewed with Freeman as stable next lab due in 2 weeks Freeman reports feeling well with no new concerns continues on Calquence
[2023-02-08 11:01] LABS: Basophils Percent Auto 0.3 % (0.0-3.0); Eosinophils Percent Auto 1.7 % (0.0-7.0); Hematocrit 30.7 % (37.0-53.0); Hemoglobin* 9.3 gm/dL (13.5-17.5); Immature Granulocytes Pct Auto 0.3 %; Mean Corpuscular HGB Conc 30 gm/dL (32-36); Mean Corpuscular Hemoglobin 30 pg (26-34); Mean Corpuscular Volume 100 fL (80-100); Monocytes Percent Auto 4.4 % (0.0-11.0); Neutrophils Percent Auto 66.3 % (42.0-72.0); Platelet Count* 333 K/uL (140-440); RDW Coefficient of Variation % 14.8 % (11.5-15.5); Red Blood Count 3.07 m/uL (4.30-5.90); White Blood Count* 11.39 K/uL (4.50-11.00)
[2023-02-08 11:07] LABS: Slide Review Reflex No
[2023-02-08 11:15] LABS: Albumin* 3.7 g/dL (3.3-5.0); Chloride* 101 mmol/L (96-114); Sodium* 134 mmol/L (135-149)
[2023-02-08 11:18] LABS: Alanine Aminotransferase* 15 U/L (4-50); Alkaline Phosphatase* 82 U/L (40-150); Anion Gap 9 mEq/L (7-15); Aspartate Amino Transferase* 21 U/L (12-35); Bilirubin Total* 1.4 mg/dL (0.1-1.5); Blood Urea Nitrogen* 11 mg/dL (7-30); Carbon Dioxide* 24 mmol/L (20-32); Creatinine* 0.9 mg/dL (0.5-1.5); Est. Creatinine Clearance* 61.86; Estimated Glomerular Filt Rate 88 ml/min; Glucose* 126 mg/dL (60-115); Total Protein* 6.1 g/dL (6.0-8.3)
[2023-02-08 11:19] LABS: Calcium* 8.8 mg/dL (8.4-10.6)
--- NOTE | 2023-02-08 12:11 | ONC.NURNOTE ---
lab results reviewed and called to Freeman as stable
--- NOTE | 2023-02-18 11:00 | ONC.NURNOTE ---
refill request for calquence faxed to [facility].
[2023-02-21 10:51] LABS: Basophils Percent Auto 0.3 % (0.0-3.0); Eosinophils Percent Auto 1.4 % (0.0-7.0); Hematocrit 32.5 % (37.0-53.0); Immature Granulocytes Pct Auto 0.5 %; Mean Corpuscular HGB Conc 31 gm/dL (32-36); Mean Corpuscular Hemoglobin 30 pg (26-34); Mean Corpuscular Volume 99 fL (80-100); Monocytes Percent Auto 3.6 % (0.0-11.0); Neutrophils Percent Auto 61.2 % (42.0-72.0); Platelet Count* 332 K/uL (140-440); RDW Coefficient of Variation % 13.9 % (11.5-15.5); White Blood Count* 11.19 K/uL (4.50-11.00)
[2023-02-21 10:59] LABS: Slide Review Reflex No
[2023-03-03 10:49] LABS: Basophils Absolute Auto 0.02 K/uL (0.00-0.30); Basophils Percent Auto 0.2 % (0.0-3.0); Eosinophils Absolute Auto 0.15 K/uL (0.00-0.50); Eosinophils Percent Auto 1.5 % (0.0-7.0); Hemoglobin* 9.5 gm/dL (13.5-17.5); Immature Granulocytes Abs Auto 0.04 K/uL (0.00-0.30); Immature Granulocytes Pct Auto 0.4 %; Lymphocytes Absolute Auto 2.77 K/uL (0.90-2.90); Lymphocytes Percent Auto 27.8 % (20-44); Mean Corpuscular HGB Conc 32 gm/dL (32-36); Mean Corpuscular Hemoglobin 31 pg (26-34); Mean Corpuscular Volume 97 fL (80-100); Monocytes Percent Auto 7.7 % (0.0-11.0); Neutrophils Percent Auto 62.4 % (42.0-72.0); Platelet Count* 305 K/uL (140-440); RDW Coefficient of Variation % 13.1 % (11.5-15.5); White Blood Count* 9.95 K/uL (4.50-11.00)
[2023-03-03 10:54] LABS: Slide Review Reflex No
[2023-03-03 11:08] LABS: Albumin* 3.8 g/dL (3.3-5.0); Chloride* 98 mmol/L (96-114)
[2023-03-03 11:09] LABS: Potassium* 4.3 mmol/L (3.6-5.1); Sodium* 132 mmol/L (135-149)
[2023-03-03 11:11] LABS: Alkaline Phosphatase* 85 U/L (40-150); Anion Gap 9 mEq/L (7-15); Aspartate Amino Transferase* 26 U/L (12-35); Bilirubin Total* 1.6 mg/dL (0.1-1.5); Blood Urea Nitrogen* 13 mg/dL (7-30); Carbon Dioxide* 25 mmol/L (20-32); Creatinine* 0.9 mg/dL (0.5-1.5); Est. Creatinine Clearance* 61.86; Estimated Glomerular Filt Rate 88 ml/min; Glucose* 87 mg/dL (60-115); Lactate Dehydrogenase* 249 U/L (120-246); Total Protein* 6.3 g/dL (6.0-8.3)
[2023-03-03 11:12] LABS: Alanine Aminotransferase* 15 U/L (4-50); Calcium* 8.9 mg/dL (8.4-10.6); Phosphorus* 3.4 mg/dL (2.5-4.5)
[2023-03-03 12:32] LABS: Hepatitis C Virus Antibody* Negative (Negative)
[2023-03-03 13:16] LABS: Hepatitis B Surface Antigen* Negative (Negative)
--- NOTE | 2023-03-04 14:37 | URNOTE ---
Received request for prior auth for Obinutuzumab ([id number]). Pt has medicare primary. Prior authorization is not required as services are based on medical necessity and follow medicare guidelines.
== END 2023-03-12 23:59 | disposition home or self-care (01) ==
LOC: CCIC 09:30
PROVIDERS: Clinical Nurse Specialist; Nurse Practitioner Family; PCP Family Medicine; Referring Provider Family Medicine; Visit Provider Internal Medicine Hematology & Oncology
DX: C91.10 Chronic lymphocytic leukemia of B-cell type not having achieved remission (principal); R79.89 Other specified abnormal findings of blood chemistry; C43.59 Malignant melanoma of other part of trunk; I48.91 Unspecified atrial fibrillation; D50.9 Iron deficiency anemia, unspecified
CPT/HCPCS: 36415; 36430; 38222; 70491; 71260; 74177; 80053; 82247; 82248; 82270; 82607; 82728; 82746; 83010; 83540; 83550; 83615; 84100; 84443; 84550; 85025; 85045; 86803; 86850; 86880; 86900; 86901; 86922; 87340; 88184; 88185; 88237; 88264; 88271; 88275; 88305; 88311; 88313; 88342; 88360; 99100; 99212; 99214; 99215; 99284; A9270; J1644; J2001; J2704; P9016; Q9967

== ENCOUNTER 2023-03-17 09:56 | Outpatient (CLI) | payer MEDICARE, BC, SELFPAY ==
--- NOTE | 2023-03-17 10:15 | CRLHL7_ITS ---
For Patients: As a result of the Century Cures Act, medical imaging exams and procedure reports are released immediately into your electronic medical record. You may view this report before your referring provider. If you have questions, please contact your health care provider. INDICATION: RLE PAIN AND SWELLING TECHNIQUE: Ultrasound venous duplex lower right extremity. Compression venous exam was performed using moore-scale, color Doppler, and spectral Doppler analysis. COMPARISON: None. FINDINGS: Deep veins: Sonographic imaging demonstrates the right common femoral, deep femoral, superficial femoral, popliteal, posterior tibial and the contralateral right common femoral veins to be fully compressible with normal color Doppler blood flow. Superficial veins: Greater saphenous vein is fully compressible. No popliteal cyst. IMPRESSION: Normal right lower extremity venous ultrasound, no sign of deep venous thrombosis. Dictated by Nahun Buchanan MD @ 03/17/2023 10:46:50 AM (Electronically Signed)
== END 2023-03-17 09:57 | disposition home or self-care (01) ==
LOC: US 09:57
PROVIDERS: PCP Student in an Organized Health Care Education/Training Program; Visit Provider Internal Medicine Hematology & Oncology
DX: M79.89 Other specified soft tissue disorders (principal)
CPT/HCPCS: 36415; 85025; 93971

== ENCOUNTER 2023-05-12 14:18 | Outpatient (CLI) | payer MEDICARE, BC, SELFPAY ==
--- NOTE | 2023-05-12 16:15 | PE_ITS ---
[facility] [address] [facility] [address] Phone:?[phone] Fax:?[phone] Referring Physician Information: Birdie Hurtado M.D. [address] [facility] [address] Phone:?[phone] Fax:?[phone] Patient:Iraida Jensen D.O.B:?1945 Sex:?Male Phone:?[phone] [facility] MRN:?[id number] Exam Date:?05/12/2023 EXAM: PET/CT SCAN MID-ORBITS TO PROXIMAL THIGHS CLINICAL INFORMATION: Chronic lymphocytic leukemia TECHNICAL INFORMATION: Spiral acquisition of data was obtained from the mid orbits to the proximal thighs with reconstruction of 3.75 mm thick images at 3.[address] data was used for attenuation correction. PET scanning was performed through the same anatomic range is 7 minutes following administration of 11.5 mCi of 18-FDG delivered intravenously. The patient's glucose at the time of the injection was 100 mg/dL. PET, CT and PET/CT fusion images are interpreted using a computer viewing workstation. COMPARISON:?CT chest abdomen pelvis 11/29/2022. 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 Chest: Relative stable appearance of mildly prominent thoracic inlet and superior mediastinal nodes. Relative stable appearance of right paratracheal adenopathy, measuring up to 17 mm short axis diameter image 97, SUV max 3.5. Stable size of 21 mm subcarinal node SUV max 4.6. Interval development of 12 mm right middle lobe nodule image 115 series 202, SUV max 10.67. Otherwise, persisting groundglass bilateral upper and lower lobe opacities without significant change. No pleural or pericardial effusion. Abdomen, Pelvis and Proximal Thighs: Stable appearance of soft tissue right upper quadrant mass measuring approximately 43 mm, SUV max 3.61. Stable appearance of mesenteric and retroperitoneal adenopathy, including 19 mm left periaortic node image 184, SUV max 3.06. Mesenteric nodes measuring up to 19 mm transverse dimension image 187 SUV max 2.51, stable. In the pelvis, stable left iliac/pelvic sidewall lymph node image 250, SUV max 2.6. Additional stable right inguinal/iliac lymphadenopathy. CONCLUSION: 1. Since 11/29/2022, enlarging bilateral parotid katherine mass lesions as described above. Additional relative stable appearance of neck, intrathoracic, intra- abdominal and intrapelvic adenopathy as described above. 2. Relative stable appearance of multifocal patchy groundglass bilateral lung opacities. Interval development of 12 mm nodular opacity right middle lobe, SUV max 10.67. This finding is nonspecific and may represent inflammatory/ infectious etiology. However, malignancy cannot be excluded. Three-month follow- up chest CT evaluation is recommended. Electronically signed on 05/13/2023 4:19:00 PM by Gildardo Ponce M.D.
== END 2023-05-12 14:19 | disposition home or self-care (01) ==
LOC: RAD 14:18
PROVIDERS: PCP Student in an Organized Health Care Education/Training Program; Visit Provider Internal Medicine Hematology & Oncology
DX: C91.10 Chronic lymphocytic leukemia of B-cell type not having achieved remission (principal)
CPT/HCPCS: 78815; A9552

== ENCOUNTER 2023-05-16 10:01 | Outpatient (CLI) | payer MEDICARE, BC, SELFPAY ==
--- NOTE | 2023-05-16 10:15 | CRLHL7_ITS ---
For Patients: As a result of the Century Cures Act, medical imaging exams and procedure reports are released immediately into your electronic medical record. You may view this report before your referring provider. If you have questions, please contact your health care provider. ULTRASOUND-GUIDED BREAST BIOPSY AND POST-BIOPSY DIGITAL MAMMOGRAM FOR BIOPSY MARKER PLACEMENT CLINICAL HISTORY: Left neck mass COMPARISON STUDIES: 11/29/2022 TECHNIQUE: Real-time ultrasound with image documentation was used for targeting the left neck lesion. Core biopsy specimens were obtained using an automated gun with a 18-gauge biopsy needle. CONSENT and TIME OUT: The procedure, risks, and alternatives were explained to the patient and a consent was signed. [place] Protocol was followed including pre-procedure verification that relevant information/documentation was available, reviewed and properly matched to the patient; consent accurate and complete; and equipment and supplies available. Time Out was conducted just prior to starting procedure to verify the four required elements: patient identity, correct side/site marked (if applicable), procedure, relevant images/results properly labeled and displayed (if applicable). PROCEDURE: The patient was positioned supine on the ultrasound table. The left neck was prepped with ChloraPrep. 5 cc of 1 percent lidocaine used for local anesthesia. Core samples were obtained. The specimens were placed in 10% formalin and sent to the pathology department. Pressure was held on the biopsy site until all bleeding subsided. The skin incision was closed with Steri-Strips. An ice pack was positioned over the biopsy site. Post-biopsy instructions were reviewed with the patient. LATERALITY: Left neck LESION: Hypoechoic solid mass measuring 4.4 cm. SUSPICION FOR MALIGNANCY: High, history of CLL NUMBER OF SAMPLES: 5 IMPRESSION: Ultrasound-guided left neck biopsy. Dictated by Ron Walters MD @ 05/16/2023 11:36:22 AM (Electronically Signed)
== END 2023-05-16 10:02 | disposition home or self-care (01) ==
LOC: US 10:02
PROVIDERS: PCP Student in an Organized Health Care Education/Training Program; Visit Provider Internal Medicine Hematology & Oncology
DX: R22.1 Localized swelling, mass and lump, neck (principal); C91.10 Chronic lymphocytic leukemia of B-cell type not having achieved remission
CPT/HCPCS: 38505; 76942; 88305; 88313; 88341; 88342; 88360; A4649

== ENCOUNTER 2023-06-02 13:42 | Outpatient (CLI) | payer MEDICARE, BC, SELFPAY ==
--- NOTE | 2023-06-02 14:00 | CRLHL7_ITS ---
For Patients: As a result of the 21st Century Cures Act, medical imaging exams and procedure reports are released immediately into your electronic medical record. You may view this report before your referring provider. If you have questions, please contact your health care provider. Indication: Malignant neoplasm of head, face, neck, staging for new malignancy Technique: Noncontrast CT chest Please note that all CT scans at this facility use dose modulation, iterative reconstruction, and/or weight-based dosing when appropriate to reduce radiation dose to as low as reasonably achievable. Comparison: CT PET 05/12/2023, CT 11/29/2022 Findings: Numerous mildly prominent lymph nodes at the thoracic inlet and mediastinum are similar. Similar left greater than right mildly prominent axillary lymph nodes atherosclerotic disease. Small nonobstructing stone left kidney. Mildly prominent retroperitoneal lymph nodes are similar. Ectatic/tortuous thoracic aorta. No thyroid lesion. Nodular masslike area with macro lobular borders in the right middle lobe adjacent to the bronchovascular bundle measuring 2.8 x 1.7 cm. This area demonstrated intense PET uptake. Improved aeration within the lungs bilaterally with decreased conspicuity of ill-defined ground-glass densities. No pleural effusion or CHF. No pneumothorax. Discogenic spurring lower thoracic spine. Impression: Macrolobular masslike nodular area within the right middle lobe adjacent to the bronchovascular bundle measuring 2.8 x 1.7 cm corresponding with a PET avid lesion on the prior examination, concerning for malignancy. This is new from November 29, 2022. Inflammation/infection is considered less likely given that there has been overall improvement in the ground-glass densities elsewhere throughout the lungs. CT-guided biopsy recommended. Persistent adenopathy in the thorax/upper mediastinum. Please note that all CT scans at this facility use dose modulation, iterative reconstruction, and/or weight-based dosing when appropriate to reduce radiation dose to as low as reasonably achievable. Dictated by Ron Walters MD @ 06/03/2023 11:18:33 AM (Electronically Signed)
== END 2023-06-02 13:43 | disposition home or self-care (01) ==
LOC: CT 13:45
PROVIDERS: PCP Student in an Organized Health Care Education/Training Program; Visit Provider Internal Medicine Hematology & Oncology
DX: C76.0 Malignant neoplasm of head, face and neck (principal)
CPT/HCPCS: 71250

== ENCOUNTER 2023-08-30 09:22 | Outpatient (CLI) | payer MEDICARE, BC, SELFPAY ==
--- NOTE | 2023-08-30 10:00 | CT_ITS ---
Patient: MELECIO WILCOX Facility:?[facility] Patient ID:?[id number] Site Patient ID:?[id number]. Site :?1945 Study:?CT-Chest/Abd/Pelvis W/ 86CC ISOVUE 370-08/30/2023 10:32:43 AM Ordering Physician:JOY Final Report: ---- ADDENDUM ----- Images from chest CT dated 06/02/2023 were made available following finalization of the initial report. Reviewing these more recent comparison images of the chest, there is no change to the original study interpretation. Dictated by Angel Savage MD @ Sep 07 2023 8:08PM Indication: Sarcomatoid carcinoma, indeterminate right lung mass, chronic lymphocytic leukemia Technique: Postcontrast CT of the chest, abdomen, and pelvis with multiplanar reformats following 80 mL Isovue 370 IV. Comparison: PET-CT dated 05/12/2023, CT chest abdomen pelvis dated 11/29/2022 Findings: Chest: Lungs: Multiple pulmonary nodules are again noted. There is a new/increased size of a spiculated nodule in the right middle lobe base measuring 13 millimeters and new clustered foci of nodules within the right fissure measuring 14 millimeters. There is a new nodule in the left lung base with surrounding ground-glass measuring 9 millimeters. Extensive geographic and patchy ground- glass in the bilateral lungs appears unchanged. Mediastinum: Cardiomegaly. Calcified coronary arterial atherosclerosis. Ascending aorta measures 4.1 centimeters. Lymph nodes: Bulky axillary, mediastinal, and hilar lymphadenopathy, overall progressed from prior examination. Right paratracheal node measures 26 millimeters, previously 22 millimeters. Left axillary node measures 17 millimeters, previously 12 millimeters. Soft tissues: No acute abnormality appreciated. Bones: No acute abnormality appreciated. Abdomen and Pelvis: Hepatobiliary: No significant parenchymal abnormality is appreciated. Spleen: Unremarkable. Pancreas: No acute abnormality appreciated. Adrenal glands: No acute abnormality appreciated. Kidneys: No significant parenchymal abnormality appreciated. No visualized calculi. No hydronephrosis. Bowel: No obstruction. No focal perienteric or pericolonic stranding is appreciated. Vascular: No acute abnormality appreciated. Calcified atherosclerosis. Lymph nodes: Extensive lymphadenopathy, increased from prior examination. Para- aortic katherine conglomerate measures 4.0 centimeters, previously appearing as 2 distinct nodes spanning 2.8 centimeters. Right iliac node measures 18 millimeters, previously 11 millimeters. Peritoneum: No free air. No free fluid. : No acute abnormality appreciated. Soft tissues: No acute abnormality appreciated. Bones: No acute fracture. No lytic or blastic lesion. Impression: 1. Progression of lymphatic disease with increased size of nodes in the chest, abdomen, and pelvis. 2. Progression of pulmonary disease with new and enlarging nodules. Please note that all CT scans at this facility use dose modulation, iterative reconstruction, and/or weight-based dosing when appropriate to reduce radiation dose to as low as reasonably achievable. Dictated by Angel Savage MD @ 08/30/2023 8:13:35 PM Signed by:?Angel Savage MD @08/30/2023 8:13:35 PM (Electronic Signature)
--- NOTE | 2023-08-30 10:30 | CT_ITS ---
Patient: MELECIO WILCOX Facility:?[facility] Patient ID:?[id number] Site Patient ID:?[id number]. Site :?1945 Study:?CT-ST Neck W/ 86CC ISOVUE 370-08/30/2023 10:34:11 AM Ordering Physician:JOY Final Report: ADDENDUM: Please note correction in original report, comparison is made to previous CT soft tissue neck dated 11/29/2022. CRL:enedelia 09/06/2023 ----- ADDENDUM ----- Addendum Report: Additional Comparison Exam: A comparison is requested with the biopsy ultrasound exam from 05/16/2023. The ultrasound exam is a limited study performed for biopsy purposes. It shows a mass in the left neck measured at 52 mm. This is similar to the size of the conglomerate lymphadenopathy noted on the CT from 08/30/2023. With respect to the right neck mass as well as the remainder of the enlarged nodes along both sides of the neck, no meaningful comparison can be made. Signed by:?Malcolm Montanez MD @09/06/2023 5:12:14 PM INDICATION: Bilateral neck sarcomatoid carcinoma. Indeterminate right lung mass. TECHNIQUE: Performed with IV contrast. Contrast: 86 cc of Isovue 370. COMPARISON: PET/CT from 05/12/2023. Previous CT soft tissue neck from 07/01/2022. FINDINGS: Bulky conglomerate heterogeneously enhancing lymphadenopathy is seen along the posterior inferior aspects of the parotid glands/anterolateral aspects of the sternocleidomastoid muscles on both sides, each measuring at least 45 mm. The right conglomerate mass is larger than on 07/01/2022, while the left conglomerate mass appears slightly smaller. Both conglomerate masses show intense activity on the recent PET/CT exam. There are enlarged lymph nodes bilaterally in levels 1-5 along both sides of the neck. These do not demonstrate prominently increased contrast enhancement on today`s exam. They are progressed in size and number from both 07/01/2022 and 05/12/2023. No mucosal pathology is identified in the pharynx or larynx. No additional mass or fluid collection is identified. The thyroid gland is relatively symmetric and unremarkable. No additional abnormal contrast enhancement is identified. There is a prominent left disc osteophyte complex at C5-6, impinging on the left C6 root and the spinal cord. This is unchanged. No worrisome skeletal lesions are identified. The visualized portions of the intracranial contents are unremarkable. Lymphadenopathy in the included upper chest, progressed from 07/01/2022. IMPRESSION: 1. Bulky conglomerate heterogeneously enhancing lymphadenopathy noted bilaterally along the superolateral aspects of both sides of the neck. The right neck mass has progressed from 07/01/2022, while the left neck mass might be slightly smaller. 2. Moderate bilateral neck lymphadenopathy without abnormal contrast enhancement, extending into the upper mediastinum. This has progressed from 07/01/2022. 3. No other interval change. Please note that all CT scans at this facility use dose modulation, iterative reconstruction, and/or weight-based dosing when appropriate to reduce radiation dose to as low as reasonably achievable. Dictated by Malcolm Montanez MD @ 08/30/2023 12:16:56 PM Signed by:?Malcolm Montanez MD @08/30/2023 12:16:56 PM (Electronic Signature)
== END 2023-08-30 09:23 | disposition home or self-care (01) ==
LOC: CT 09:22
PROVIDERS: PCP Student in an Organized Health Care Education/Training Program; Visit Provider Physician Assistant
DX: C07 Malignant neoplasm of parotid gland (principal); R91.8 Other nonspecific abnormal finding of lung field; C91.10 Chronic lymphocytic leukemia of B-cell type not having achieved remission
CPT/HCPCS: 70491; 71260; 74177; Q9967

== ENCOUNTER 2023-09-07 11:00 | Outpatient (RCR) | payer MEDICARE, BC, SELFPAY ==
--- NOTE | 2023-03-14 09:32 | ONC.NURNOTE ---
Received email message from [facility] stating patient had procedure and will need to push out treatment for a few weeks. Patient called and stated he is already healing and anxious to get started but understands need for healing. Appointments moved
[2023-03-17 09:47] LABS: Basophils Percent Auto 0.2 % (0.0-3.0); Eosinophils Percent Auto 1.2 % (0.0-7.0); Hematocrit 33.5 % (37.0-53.0); Hemoglobin* 10.2 gm/dL (13.5-17.5); Immature Granulocytes Pct Auto 0.3 %; Lymphocytes Percent Auto 30.6 % (20-44); Mean Corpuscular HGB Conc 30 gm/dL (32-36); Mean Corpuscular Hemoglobin 30 pg (26-34); Mean Corpuscular Volume 100 fL (80-100); Monocytes Percent Auto 4.3 % (0.0-11.0); Neutrophils Percent Auto 63.4 % (42.0-72.0); Platelet Count* 362 K/uL (140-440); Red Blood Count 3.35 m/uL (4.30-5.90)
[2023-03-17 09:51] LABS: Slide Review Reflex No
--- NOTE | 2023-03-17 15:43 | ONC.NURNOTE ---
here for lab work, patient reported red and swollen right ankle X 3 days with no reports of injury US neg for DVT- patient informed next step to go see PCP for evaluation and to r/o gout Freeman states understanding and will call [facility] next week to follow up on PCP appt
--- NOTE | 2023-03-24 12:47 | ONC.NURNOTE ---
Follow up on red swollen ankle from last week reports improvement in swelling without medical intervention redness continues over ankle per his baseline denies any pain cramping has resolved as well
--- NOTE | 2023-03-28 14:15 | ONC.NURNOTE ---
Teaching with patient on Gazyva reviewed treatment schedule, possible side effects, and infusional reaction, after hours management, calling with concerns as they arise, reviewed new patient education binder, self care at home, management of fever questions addressed consents, COLT reviewed and signed starting allopurinol today- 3 days prior to gazyva start
--- NOTE | 2023-03-28 16:03 | ONC.NURNOTE ---
PSDS =2 reports anxiety about starting treatment and concerns about physical appearance no SS referral indicated
[2023-03-30 14:22] LABS: Basophils Percent Auto 0.6 % (0.0-3.0); Eosinophils Percent Auto 3.5 % (0.0-7.0); Hematocrit 30.6 % (37.0-53.0); Hemoglobin* 9.3 gm/dL (13.5-17.5); Immature Granulocytes Pct Auto 0.3 %; Lymphocytes Percent Auto 35.7 % (20-44); Mean Corpuscular HGB Conc 30 gm/dL (32-36); Mean Corpuscular Hemoglobin 30 pg (26-34); Mean Corpuscular Volume 98 fL (80-100); Monocytes Percent Auto 5.3 % (0.0-11.0); Neutrophils Percent Auto 54.6 % (42.0-72.0); Platelet Count* 358 K/uL (140-440); RDW Coefficient of Variation % 12.9 % (11.5-15.5); Red Blood Count 3.13 m/uL (4.30-5.90); White Blood Count* 11.52 K/uL (4.50-11.00)
[2023-03-30 14:26] LABS: Slide Review Reflex No
[2023-03-30 14:34] LABS: Albumin* 3.6 g/dL (3.3-5.0); Chloride* 102 mmol/L (96-114)
[2023-03-30 14:35] LABS: Potassium* 4.1 mmol/L (3.6-5.1); Sodium* 133 mmol/L (135-149)
[2023-03-30 14:37] LABS: Anion Gap 8 mEq/L (7-15); Aspartate Amino Transferase* 26 U/L (12-35); Bilirubin Total* 1.6 mg/dL (0.1-1.5); Carbon Dioxide* 23 mmol/L (20-32); Creatinine* 1.1 mg/dL (0.5-1.5); Estimated Glomerular Filt Rate 69 ml/min; Total Protein* 6.1 g/dL (6.0-8.3)
[2023-03-30 14:38] LABS: Alanine Aminotransferase* 12 U/L (4-50); Alkaline Phosphatase* 76 U/L (40-150); Blood Urea Nitrogen* 14 mg/dL (7-30); Calcium* 8.3 mg/dL (8.4-10.6); Glucose* 97 mg/dL (60-115)
[2023-03-31] MEDS: SODIUM CHLORIDE 0.9 % (FLUSH) 10 ML SYRINGE IVF (09:00)
[2023-03-31] MEDS: ACETAMINOPHEN 325 MG TABLET 975 MG PO (09:00)
[2023-03-31] MEDS: 0.9 % SODIUM CHLORIDE 250 ml IV (09:10)
[2023-03-31] MEDS: dexAMETHasone 20 MG in 0.9 % SODIUM CHLORIDE 100 ml 100 ML 420 MG IVPB (09:17)
[2023-03-31] MEDS: diphenhydrAMINE 50 MG in 0.9 % SODIUM CHLORIDE 100 ml 100 ML 420 MG IVPB (09:35)
[2023-03-31 15:17] VITALS: BP 163/85; PULSE 68; RESP 16; TEMP 36.9; O2SAT 97
[2023-04-01] VITALS (8 sets, daily range): BP systolic 127–167; BP diastolic 49–85; PULSE 57–65; RESP 16–20; TEMP 36.2–36.8; O2SAT 98–100
[2023-04-01] MEDS: ACETAMINOPHEN 325 MG TABLET 975 MG PO (08:19)
[2023-04-01] MEDS: dexAMETHasone 20 MG in 0.9 % SODIUM CHLORIDE 100 ml 100 ML 408 MG IVPB (08:53)
[2023-04-01] MEDS: 0.9 % SODIUM CHLORIDE 250 ml IV (08:53)
[2023-04-01 08:56] LABS: Albumin* 3.5 g/dL (3.3-5.0)
[2023-04-01 08:57] LABS: Chloride* 101 mmol/L (96-114); Potassium* 3.9 mmol/L (3.6-5.1); Sodium* 129 mmol/L (135-149)
[2023-04-01 08:59] LABS: Anion Gap 9 mEq/L (7-15); Aspartate Amino Transferase* 44 U/L (12-35); Bilirubin Total* 1.3 mg/dL (0.1-1.5); Carbon Dioxide* 19 mmol/L (20-32); Creatinine* 0.9 mg/dL (0.5-1.5); Est. Creatinine Clearance* 61.86; Estimated Glomerular Filt Rate 88 ml/min
[2023-04-01 09:00] LABS: Alanine Aminotransferase* 15 U/L (4-50); Alkaline Phosphatase* 70 U/L (40-150); Blood Urea Nitrogen* 17 mg/dL (7-30); Calcium* 7.9 mg/dL (8.4-10.6); Glucose* 174 mg/dL (60-115); Lactate Dehydrogenase* 239 U/L (120-246); Phosphorus* 3.6 mg/dL (2.5-4.5); Uric Acid* 1.9 mg/dL (2.2-8.4)
[2023-04-01] MEDS: diphenhydrAMINE 50 MG in 0.9 % SODIUM CHLORIDE 100 ml 100 ML 404 MG IVPB (09:23)
[2023-04-04 10:03] LABS: Chloride* 102 mmol/L (96-114); Potassium* 4.1 mmol/L (3.6-5.1); Sodium* 134 mmol/L (135-149)
[2023-04-04 10:06] LABS: Anion Gap 5 mEq/L (7-15); Carbon Dioxide* 27 mmol/L (20-32); Creatinine* 0.9 mg/dL (0.5-1.5); Est. Creatinine Clearance* 61.86; Estimated Glomerular Filt Rate 88 ml/min
[2023-04-04 10:07] LABS: Blood Urea Nitrogen* 15 mg/dL (7-30); Calcium* 8.2 mg/dL (8.4-10.6); Glucose* 86 mg/dL (60-115)
[2023-04-04 13:12] LABS: Lactate Dehydrogenase* 263 U/L (120-246)
[2023-04-07 08:25] LABS: Basophils Absolute Auto 0.03 K/uL (0.00-0.30); Basophils Percent Auto 0.3 % (0.0-3.0); Eosinophils Percent Auto 5.9 % (0.0-7.0); Hematocrit 30.2 % (37.0-53.0); Hemoglobin* 9.3 gm/dL (13.5-17.5); Immature Granulocytes Abs Auto 0.08 K/uL (0.00-0.30); Immature Granulocytes Pct Auto 0.8 %; Lymphocytes Absolute Auto 3.04 K/uL (0.90-2.90); Lymphocytes Percent Auto 29.7 % (20-44); Mean Corpuscular HGB Conc 31 gm/dL (32-36); Mean Corpuscular Hemoglobin 30 pg (26-34); Mean Corpuscular Volume 97 fL (80-100); Monocytes Percent Auto 6.5 % (0.0-11.0); Neutrophils Absolute Auto 5.81 K/uL (1.7-7.0); Neutrophils Percent Auto 56.8 % (42.0-72.0); Platelet Count* 378 K/uL (140-440); Red Blood Count 3.12 m/uL (4.30-5.90); White Blood Count* 10.22 K/uL (4.50-11.00)
[2023-04-07 08:29] VITALS: BP 127/83; PULSE 70; RESP 16; TEMP 35.7; O2SAT 98
[2023-04-07 08:30] LABS: Slide Review Reflex No
[2023-04-07 08:40] LABS: Chloride* 93 mmol/L (96-114)
[2023-04-07 08:41] LABS: Albumin* 3.6 g/dL (3.3-5.0); Potassium* 3.8 mmol/L (3.6-5.1); Sodium* 132 mmol/L (135-149)
[2023-04-07 08:43] LABS: Anion Gap 13 mEq/L (7-15); Carbon Dioxide* 26 mmol/L (20-32); Creatinine* 0.9 mg/dL (0.5-1.5); Est. Creatinine Clearance* 61.86; Estimated Glomerular Filt Rate 88 ml/min
[2023-04-07 08:44] VITALS: BP 127/83; PULSE 70; RESP 16; TEMP 35.7; O2SAT 98
[2023-04-07 08:44] LABS: Alanine Aminotransferase* 16 U/L (4-50); Alkaline Phosphatase* 64 U/L (40-150); Aspartate Amino Transferase* 37 U/L (12-35); Bilirubin Total* 2.4 mg/dL (0.1-1.5); Blood Urea Nitrogen* 12 mg/dL (7-30); Calcium* 8.3 mg/dL (8.4-10.6); Glucose* 137 mg/dL (60-115); Total Protein* 6.1 g/dL (6.0-8.3)
[2023-04-07] MEDS: dexAMETHasone 20 MG in 0.9 % SODIUM CHLORIDE 100 ml 100 ML 408 MG IVPB (09:52)
[2023-04-07] MEDS: diphenhydrAMINE 50 MG in 0.9 % SODIUM CHLORIDE 100 ml 100 ML 404 MG IVPB (10:20)
[2023-04-07] MEDS: ACETAMINOPHEN 325 MG TABLET 975 MG PO (10:20)
[2023-04-07] MEDS: OBINUTUZUMAB 1,000 MG, TUBING PRIMARY 1 EACH in 0.9 % SODIUM CHLORIDE 250 ml 250 ML 25 MG IVPB (10:59)
[2023-04-07 11:34] VITALS: BP 136/76; PULSE 56; RESP 16; TEMP 36.8; O2SAT 97
[2023-04-07 12:12] VITALS: BP 155/78; PULSE 62; RESP 18; TEMP 36.8; O2SAT 98
[2023-04-07 12:40] VITALS: BP 150/85; PULSE 64; RESP 16; TEMP 36.8; O2SAT 99
[2023-04-07 14:56] VITALS: BP 147/85; PULSE 66; RESP 18; TEMP 36.9; O2SAT 96
--- NOTE | 2023-04-07 15:22 | ONC.NURNOTE ---
C1D8 Gazyva infused without issues or s/s reaction; tolerated well.
[2023-04-14 07:51] LABS: Basophils Percent Auto 0.3 % (0.0-3.0); Eosinophils Percent Auto 2.7 % (0.0-7.0); Hematocrit 30.3 % (37.0-53.0); Hemoglobin* 9.5 gm/dL (13.5-17.5); Immature Granulocytes Pct Auto 0.4 %; Lymphocytes Percent Auto 28.1 % (20-44); Mean Corpuscular HGB Conc 31 gm/dL (32-36); Mean Corpuscular Hemoglobin 30 pg (26-34); Mean Corpuscular Volume 95 fL (80-100); Neutrophils Percent Auto 62.5 % (42.0-72.0); Platelet Count* 319 K/uL (140-440); RDW Coefficient of Variation % 13.7 % (11.5-15.5); Red Blood Count 3.18 m/uL (4.30-5.90); White Blood Count* 12.44 K/uL (4.50-11.00)
[2023-04-14 07:59] LABS: Slide Review Reflex No
[2023-04-14 08:14] LABS: Albumin* 3.3 g/dL (3.3-5.0); Chloride* 97 mmol/L (96-114); Potassium* 4.2 mmol/L (3.6-5.1); Sodium* 130 mmol/L (135-149)
[2023-04-14 08:16] LABS: Est. Creatinine Clearance* 61.86; Estimated Glomerular Filt Rate 78 ml/min
[2023-04-14 08:17] LABS: Alanine Aminotransferase* 14 U/L (4-50); Alkaline Phosphatase* 74 U/L (40-150); Anion Gap 8 mEq/L (7-15); Aspartate Amino Transferase* 28 U/L (12-35); Bilirubin Total* 1.8 mg/dL (0.1-1.5); Blood Urea Nitrogen* 12 mg/dL (7-30); Calcium* 8.5 mg/dL (8.4-10.6); Carbon Dioxide* 25 mmol/L (20-32); Glucose* 123 mg/dL (60-115); Total Protein* 5.8 g/dL (6.0-8.3)
[2023-04-14] MEDS: ACETAMINOPHEN 325 MG TABLET 975 MG PO (09:07)
[2023-04-14] MEDS: dexAMETHasone 20 MG in 0.9 % SODIUM CHLORIDE 100 ml 100 ML 408 MG IVPB (09:36)
[2023-04-14] MEDS: 0.9 % SODIUM CHLORIDE 250 ml IV (09:36)
[2023-04-14] MEDS: diphenhydrAMINE 50 MG in 0.9 % SODIUM CHLORIDE 100 ml 100 ML 404 MG IVPB (09:54)
[2023-04-14] MEDS: OBINUTUZUMAB 1,000 MG, TUBING PRIMARY 1 EACH in 0.9 % SODIUM CHLORIDE 250 ml 250 ML 25 MG IVPB (10:27)
[2023-04-14 11:03] VITALS: BP 143/87; PULSE 60; RESP 16; TEMP 36.8; O2SAT 95
[2023-04-14 11:38] VITALS: BP 147/76; PULSE 62; RESP 16; TEMP 36.4; O2SAT 98
[2023-04-14 12:08] VITALS: BP 145/78; PULSE 61; RESP 14; TEMP 36.1; O2SAT 98
[2023-04-14 14:35] VITALS: BP 143/78; PULSE 71; RESP 16; TEMP 36.3; O2SAT 97
[2023-04-21 08:10] LABS: Basophils Absolute Auto 0.03 K/uL (0.00-0.30); Basophils Percent Auto 0.3 % (0.0-3.0); Eosinophils Absolute Auto 0.35 K/uL (0.00-0.50); Hematocrit 29.3 % (37.0-53.0); Immature Granulocytes Abs Auto 0.04 K/uL (0.00-0.30); Immature Granulocytes Pct Auto 0.5 %; Lymphocytes Absolute Auto 2.56 K/uL (0.90-2.90); Lymphocytes Percent Auto 29.4 % (20-44); Mean Corpuscular HGB Conc 31 gm/dL (32-36); Mean Corpuscular Hemoglobin 30 pg (26-34); Mean Corpuscular Volume 96 fL (80-100); Monocytes Percent Auto 6.7 % (0.0-11.0); Neutrophils Absolute Auto 5.16 K/uL (1.7-7.0); Neutrophils Percent Auto 59.1 % (42.0-72.0); Platelet Count* 269 K/uL (140-440); RDW Coefficient of Variation % 13.9 % (11.5-15.5); Red Blood Count 3.04 m/uL (4.30-5.90); White Blood Count* 8.72 K/uL (4.50-11.00)
[2023-04-21 08:11] LABS: Slide Review Reflex No
[2023-04-21 08:22] VITALS: BP 113/64; PULSE 75; RESP 16; TEMP 36; O2SAT 98
[2023-04-21 08:25] LABS: Albumin* 3.3 g/dL (3.3-5.0); Chloride* 100 mmol/L (96-114)
[2023-04-21 08:26] LABS: Potassium* 3.7 mmol/L (3.6-5.1); Sodium* 132 mmol/L (135-149)
[2023-04-21 08:28] LABS: Anion Gap 7 mEq/L (7-15); Aspartate Amino Transferase* 21 U/L (12-35); Bilirubin Total* 2.7 mg/dL (0.1-1.5); Carbon Dioxide* 25 mmol/L (20-32); Est. Creatinine Clearance* 61.86; Estimated Glomerular Filt Rate 78 ml/min
[2023-04-21 08:29] LABS: Alanine Aminotransferase* 13 U/L (4-50); Alkaline Phosphatase* 71 U/L (40-150); Blood Urea Nitrogen* 12 mg/dL (7-30); Calcium* 8.2 mg/dL (8.4-10.6); Glucose* 149 mg/dL (60-115); Total Protein* 5.8 g/dL (6.0-8.3)
[2023-04-21 10:44] LABS: Bilirubin Direct* 0.3 mg/dL (0.0-0.5); Bilirubin Total* 2.6 mg/dL (0.1-1.5); Lactate Dehydrogenase* 247 U/L (120-246)
--- NOTE | 2023-04-21 11:32 | PC.NURSE ---
Addendum entered by Liliya Bui RN 04/29/23 07:41: Animal Treatment Investigator discussed patient and his labs with provider on Thursday 04/26. Per provider, patient is okay to be treated with cycle 2 per these labs. She will be seeing patient next week in [place] to determine ongoing treatment. Original Note: Pt present at [facility], as scheduled, for labs and infusion. Labs drawn. Upon review of pt's chart and treatment orders it was noted that pt doesn't have infusion orders for today. Reviewed clinical pharmacology and discussed with sheet metal duct worker supervisor, Liliya Bui RN. Also of note, pt's labs resulted and bilirubin noted to be elevated and above the hold parameter. JEFF Lovell discussed with Dr. Hurtado. Based on pt's treatment regimen and MD, no chemo is due today. Because of bilirubin result, MD ordered additional labs to add on. This was done. Pt will return to [facility] for treatment next week. Moved to Tuesday due to holiday. Freeman will see MD on 05/03/2023 as previously scheduled.
[2023-04-23 04:01] LABS: Haptoglobin 227 mg/dL (30-200)
[2023-04-29 08:22] VITALS: BP 146/83; PULSE 78; RESP 16; TEMP 36.3; O2SAT 78
[2023-04-29 08:41] LABS: Albumin* 3.5 g/dL (3.3-5.0); Chloride* 101 mmol/L (96-114); Potassium* 4.4 mmol/L (3.6-5.1); Sodium* 134 mmol/L (135-149)
[2023-04-29 08:43] LABS: Aspartate Amino Transferase* 27 U/L (12-35); Bilirubin Total* 1.5 mg/dL (0.1-1.5); Carbon Dioxide* 24 mmol/L (20-32); Creatinine* 0.9 mg/dL (0.5-1.5); Est. Creatinine Clearance* 61.86; Estimated Glomerular Filt Rate 88 ml/min
[2023-04-29 08:44] LABS: Alanine Aminotransferase* 13 U/L (4-50); Alkaline Phosphatase* 72 U/L (40-150); Anion Gap 9 mEq/L (7-15); Basophils Absolute Auto 0.02 K/uL (0.00-0.30); Basophils Percent Auto 0.2 % (0.0-3.0); Blood Urea Nitrogen* 11 mg/dL (7-30); Calcium* 8.1 mg/dL (8.4-10.6); Eosinophils Absolute Auto 0.32 K/uL (0.00-0.50); Eosinophils Percent Auto 3.6 % (0.0-7.0); Glucose* 135 mg/dL (60-115); Hematocrit 29.3 % (37.0-53.0); Immature Granulocytes Abs Auto 0.05 K/uL (0.00-0.30); Immature Granulocytes Pct Auto 0.6 %; Lymphocytes Absolute Auto 2.25 K/uL (0.90-2.90); Lymphocytes Percent Auto 25.6 % (20-44); Mean Corpuscular HGB Conc 31 gm/dL (32-36); Mean Corpuscular Hemoglobin 30 pg (26-34); Mean Corpuscular Volume 98 fL (80-100); Monocytes Percent Auto 8.2 % (0.0-11.0); Neutrophils Absolute Auto 5.42 K/uL (1.7-7.0); Neutrophils Percent Auto 61.8 % (42.0-72.0); Platelet Count* 354 K/uL (140-440); RDW Coefficient of Variation % 14.3 % (11.5-15.5); Total Protein* 5.9 g/dL (6.0-8.3); White Blood Count* 8.78 K/uL (4.50-11.00)
[2023-04-29 08:57] LABS: Slide Review Reflex No
[2023-04-29] MEDS: dexAMETHasone 20 MG in 0.9 % SODIUM CHLORIDE 100 ml 100 ML 408 MG IVPB (09:35)
[2023-04-29] MEDS: diphenhydrAMINE 50 MG in 0.9 % SODIUM CHLORIDE 100 ml 100 ML 404 MG IVPB (10:09)
[2023-04-29] MEDS: ACETAMINOPHEN 325 MG TABLET 975 MG PO (10:09)
[2023-04-29] MEDS: OBINUTUZUMAB 1,000 MG, TUBING PRIMARY 1 EACH in 0.9 % SODIUM CHLORIDE 250 ml 250 ML 25 MG IVPB (10:51)
[2023-04-29 12:30] VITALS: BP 139/85; PULSE 64; RESP 14; TEMP 36.8; O2SAT 97
[2023-04-29] MEDS: 0.9 % SODIUM CHLORIDE 250 ml IV (14:31)
[2023-04-29] MEDS: SODIUM CHLORIDE 0.9 % (FLUSH) 10 ML SYRINGE IVF (14:31)
--- NOTE | 2023-05-09 09:13 | ONC.NURNOTE ---
Discussed patient with Dr. Hurtado last week and a PET scan and biopsy of neck was ordered. PET scan scheduled for 05/12 at 1615, biopsy location to be determined by this/radiologist. Appointment made with Dr. Hurtado to discuss on 05/19, asking radiology to get patient in for biopsy between these two appointments. Patient aware, and calendar and instructions sent to patient via mail.
--- NOTE | 2023-06-09 12:34 | URNOTE ---
Received request for prior auth for Pembrolizumab ([id number]). Pt has medicare primary. Prior authorization is not required as services are based on medical necessity and follow medicare guidelines.
[2023-06-16 10:24] LABS: Basophils Percent Auto 0.3 % (0.0-3.0); Eosinophils Percent Auto 0.8 % (0.0-7.0); Hematocrit 41.5 % (37.0-53.0); Hemoglobin* 12.7 gm/dL (13.5-17.5); Immature Granulocytes Pct Auto 0.3 %; Lymphocytes Percent Auto 11.6 % (20-44); Mean Corpuscular HGB Conc 31 gm/dL (32-36); Mean Corpuscular Hemoglobin 28 pg (26-34); Mean Corpuscular Volume 91 fL (80-100); Monocytes Percent Auto 6.3 % (0.0-11.0); Neutrophils Percent Auto 80.7 % (42.0-72.0); Platelet Count* 330 K/uL (140-440); Red Blood Count 4.57 m/uL (4.30-5.90); White Blood Count* 11.09 K/uL (4.50-11.00)
[2023-06-16 10:35] LABS: Slide Review Reflex No
[2023-06-16 10:37] LABS: Albumin* 4.3 g/dL (3.3-5.0)
[2023-06-16 10:38] LABS: Chloride* 98 mmol/L (96-114); Potassium* 3.6 mmol/L (3.6-5.1); Sodium* 134 mmol/L (135-149)
[2023-06-16 10:40] LABS: Anion Gap 11 mEq/L (7-15); Aspartate Amino Transferase* 22 U/L (12-35); Bilirubin Total* 1.1 mg/dL (0.1-1.5); Carbon Dioxide* 25 mmol/L (20-32); Creatinine* 0.8 mg/dL (0.5-1.5); Est. Creatinine Clearance* 61.86; Estimated Glomerular Filt Rate 91 ml/min; Total Protein* 6.8 g/dL (6.0-8.3)
[2023-06-16 10:41] LABS: Alanine Aminotransferase* 15 U/L (4-50); Alkaline Phosphatase* 87 U/L (40-150); Blood Urea Nitrogen* 10 mg/dL (7-30); Calcium* 8.8 mg/dL (8.4-10.6); Glucose* 145 mg/dL (60-115)
[2023-06-16] MEDS: SODIUM CHLORIDE 0.9 % (FLUSH) 10 ML SYRINGE IVF (12:10)
[2023-06-16] MEDS: 0.9 % SODIUM CHLORIDE 250 ml IV (12:10)
[2023-06-16] MEDS: PEMBROLIZUMAB 200 MG, TUBING PRIMARY 1 EACH, In-line 0.2 micron filter set 1 EACH in 0.... 216 MG IVPB (12:35)
--- NOTE | 2023-06-17 13:21 | PC.NURSE ---
Addendum entered by Lili Ramsey RN 06/17/23 15:03: Called pt back to discuss fever monitoring and s/s of infection and when to seek medical care over the weekend. Pt states that he laid down to rest and now has a fever of 100.2 and heart rate of 68. Pt will go into the ER if fever persists or goes over 100.4 for multiple readings in a row. Pt also shares that his enlarged neck glands are feeling warm to the touch. RN will check in on Tuesday. Addendum entered by Lili Ramsey RN 06/17/23 14:11: CORRECTION: pt felt tachycardic NOT hypertensive. Addendum entered by Lili Ramsey RN 06/17/23 13:36: (note cont'd) Will review with Judy Rendon APRN. Directed pt to go to ER if fevers return or if feelings of being generally ill return and persist/continue to worsen. Pt verbalized understanding. Support offered. Original Note: Called pt today to check in after first pembrolizumab infusion yesterday. Freeman feels pretty good now but felt pretty crummy last night. Around 6:00 pm he started feeling flu-like and was more and more tired. Freeman had fevers all night between 100-101. He woke up this morning, still had a fever, ate breakfast and then felt better. Pt also notes that he was hypertensive overnight. Since before breakfast, Freeman has not had any further fevers. Also of note, his LEFT side is usually really painful to sleep on but last night slept on LEFT side and had no pain. Pain seems to be gone today.
[2023-06-18 06:33] LABS: Cortisol, Serum 18.6 ug/dL
--- NOTE | 2023-06-20 09:54 | PC.NURSE ---
Called pt this morning to check in after the weekend. Pt states he is generally feeling fine. He does report the following: low grade temp 99-100 this morning woke at 5am to urinate and then woke again at 6:30 drenched in sweat. LEFT neck pain better, mostly unnoticeable. had one episode of shooting pain but maybe positional. heart rate a little elevated ~70's, due to being on beta blockers for so many years, this feels fast to him. a little more short of breath with exertion. overall pretty darn good. Reviewed next appointments. Pt agreed to call with any concerns between now and then.
[2023-07-06 11:07] LABS: Basophils Absolute Auto 0.02 K/uL (0.00-0.30); Basophils Percent Auto 0.3 % (0.0-3.0); Eosinophils Absolute Auto 0.12 K/uL (0.00-0.50); Eosinophils Percent Auto 1.7 % (0.0-7.0); Hematocrit 36.8 % (37.0-53.0); Hemoglobin* 11.4 gm/dL (13.5-17.5); Immature Granulocytes Abs Auto 0.02 K/uL (0.00-0.30); Immature Granulocytes Pct Auto 0.3 %; Lymphocytes Absolute Auto 1.68 K/uL (0.90-2.90); Lymphocytes Percent Auto 23.6 % (20-44); Mean Corpuscular HGB Conc 31 gm/dL (32-36); Mean Corpuscular Hemoglobin 28 pg (26-34); Mean Corpuscular Volume 90 fL (80-100); Monocytes Percent Auto 10.1 % (0.0-11.0); Neutrophils Absolute Auto 4.57 K/uL (1.7-7.0); Platelet Count* 364 K/uL (140-440); RDW Coefficient of Variation % 13.7 % (11.5-15.5); Red Blood Count 4.11 m/uL (4.30-5.90); White Blood Count* 7.13 K/uL (4.50-11.00)
[2023-07-06 11:11] LABS: Slide Review Reflex No
[2023-07-06 11:32] LABS: Chloride* 97 mmol/L (96-114); Sodium* 132 mmol/L (135-149)
[2023-07-06 11:34] LABS: Bilirubin Total* 2.3 mg/dL (0.1-1.5); Creatinine* 0.9 mg/dL (0.5-1.5); Est. Creatinine Clearance* 61.86; Estimated Glomerular Filt Rate 88 ml/min
[2023-07-06 11:35] LABS: Alanine Aminotransferase* 12 U/L (4-50); Alkaline Phosphatase* 78 U/L (40-150); Anion Gap 10 mEq/L (7-15); Aspartate Amino Transferase* 22 U/L (12-35); Blood Urea Nitrogen* 11 mg/dL (7-30); Calcium* 8.7 mg/dL (8.4-10.6); Carbon Dioxide* 25 mmol/L (20-32); Glucose* 118 mg/dL (60-115); Total Protein* 6.4 g/dL (6.0-8.3)
[2023-07-06 16:23] LABS: Bilirubin Direct* 0.3 mg/dL (0.0-0.5)
[2023-07-07] MEDS: PEMBROLIZUMAB 200 MG, TUBING PRIMARY 1 EACH, In-line 0.2 micron filter set 1 EACH in 0.... 216 MG IVPB (10:29)
[2023-07-07] MEDS: SODIUM CHLORIDE 0.9 % (FLUSH) 10 ML SYRINGE IVF (10:31)
[2023-07-14 09:48] LABS: Albumin* 3.9 g/dL (3.3-5.0)
[2023-07-14 09:51] LABS: Alanine Aminotransferase* 13 U/L (4-50); Alkaline Phosphatase* 82 U/L (40-150); Aspartate Amino Transferase* 21 U/L (12-35); Bilirubin Total* 1.9 mg/dL (0.1-1.5); Total Protein* 6.1 g/dL (6.0-8.3)
--- NOTE | 2023-07-14 10:37 | ONC.NURNOTE ---
neil reviewed by Xena MCGRATH- improved from from last week called to Freeman no further action needed at this time next lab due with Keyjhony in 2 weeks
[2023-07-27 09:56] LABS: White Blood Count* 8.67 K/uL (4.50-11.00)
[2023-07-27 09:57] LABS: Basophils Absolute Auto 0.02 K/uL (0.00-0.30); Basophils Percent Auto 0.2 % (0.0-3.0); Eosinophils Absolute Auto 0.18 K/uL (0.00-0.50); Eosinophils Percent Auto 2.1 % (0.0-7.0); Hematocrit 33.5 % (37.0-53.0); Hemoglobin* 10.7 gm/dL (13.5-17.5); Immature Granulocytes Abs Auto 0.08 K/uL (0.00-0.30); Immature Granulocytes Pct Auto 0.9 %; Lymphocytes Percent Auto 14.8 % (20-44); Mean Corpuscular HGB Conc 32 gm/dL (32-36); Mean Corpuscular Hemoglobin 29 pg (26-34); Mean Corpuscular Volume 91 fL (80-100); Platelet Count* 280 K/uL (140-440); RDW Coefficient of Variation % 15.2 % (11.5-15.5); Red Blood Count 3.68 m/uL (4.30-5.90)
[2023-07-27 10:01] LABS: Slide Review Reflex No
[2023-07-27 10:05] LABS: Albumin* 3.8 g/dL (3.3-5.0); Chloride* 101 mmol/L (96-114)
[2023-07-27 10:06] LABS: Potassium* 3.8 mmol/L (3.6-5.1); Sodium* 132 mmol/L (135-149)
[2023-07-27 10:08] LABS: Alkaline Phosphatase* 82 U/L (40-150); Anion Gap 10 mEq/L (7-15); Aspartate Amino Transferase* 20 U/L (12-35); Bilirubin Total* 1.9 mg/dL (0.1-1.5); Blood Urea Nitrogen* 11 mg/dL (7-30); Carbon Dioxide* 21 mmol/L (20-32); Creatinine* 0.8 mg/dL (0.5-1.5); Est. Creatinine Clearance* 63.88; Estimated Glomerular Filt Rate 91 ml/min
[2023-07-27 10:09] LABS: Alanine Aminotransferase* 13 U/L (4-50); Calcium* 8.8 mg/dL (8.4-10.6); Glucose* 118 mg/dL (60-115)
[2023-07-28] MEDS: SODIUM CHLORIDE 0.9 % (FLUSH) 10 ML SYRINGE IVF (10:28)
[2023-07-28] MEDS: 0.9 % SODIUM CHLORIDE 250 ml IV (10:28)
[2023-07-28] MEDS: PEMBROLIZUMAB 200 MG, TUBING PRIMARY 1 EACH, In-line 0.2 micron filter set 1 EACH in 0.... 216 MG IVPB (10:49)
[2023-08-17 11:26] LABS: Basophils Absolute Auto 0.03 K/uL (0.00-0.30); Basophils Percent Auto 0.3 % (0.0-3.0); Eosinophils Absolute Auto 0.27 K/uL (0.00-0.50); Eosinophils Percent Auto 2.6 % (0.0-7.0); Hematocrit 36.1 % (37.0-53.0); Hemoglobin* 11.3 gm/dL (13.5-17.5); Immature Granulocytes Abs Auto 0.03 K/uL (0.00-0.30); Immature Granulocytes Pct Auto 0.3 %; Lymphocytes Percent Auto 19.6 % (20-44); Mean Corpuscular HGB Conc 31 gm/dL (32-36); Mean Corpuscular Hemoglobin 30 pg (26-34); Mean Corpuscular Volume 95 fL (80-100); Monocytes Percent Auto 6.4 % (0.0-11.0); Neutrophils Absolute Auto 7.31 K/uL (1.7-7.0); Neutrophils Percent Auto 70.8 % (42.0-72.0); Platelet Count* 313 K/uL (140-440); RDW Coefficient of Variation % 14.6 % (11.5-15.5); Red Blood Count 3.82 m/uL (4.30-5.90); White Blood Count* 10.32 K/uL (4.50-11.00)
[2023-08-17 11:30] LABS: Albumin* 3.9 g/dL (3.3-5.0); Chloride* 100 mmol/L (96-114); Slide Review Reflex No
[2023-08-17 11:31] LABS: Potassium* 4.1 mmol/L (3.6-5.1); Sodium* 133 mmol/L (135-149)
[2023-08-17 11:33] LABS: Anion Gap 7 mEq/L (7-15); Aspartate Amino Transferase* 20 U/L (12-35); Bilirubin Total* 2.2 mg/dL (0.1-1.5); Carbon Dioxide* 26 mmol/L (20-32); Est. Creatinine Clearance* 63.88; Estimated Glomerular Filt Rate 78 ml/min
[2023-08-17 11:34] LABS: Alanine Aminotransferase* 12 U/L (4-50); Alkaline Phosphatase* 92 U/L (40-150); Blood Urea Nitrogen* 13 mg/dL (7-30); Calcium* 8.8 mg/dL (8.4-10.6); Glucose* 105 mg/dL (60-115)
[2023-08-18 09:41] VITALS: BP 151/85; PULSE 63; RESP 16; TEMP 36.7; O2SAT 96
[2023-08-18] MEDS: PEMBROLIZUMAB 200 MG, TUBING PRIMARY 1 EACH, In-line 0.2 micron filter set 1 EACH in 0.... 216 MG IVPB (10:18)
--- NOTE | 2023-08-18 10:31 | ONC.NURNOTE ---
Bilirubin 2.2 on 08/17/23. [facility] discussed labs with Judy Rendon APRN and order received to proceed with Keytruda today due to pt having chronic hyper bilirubinemia.
[2023-09-07 11:20] LABS: Basophils Absolute Auto 0.03 K/uL (0.00-0.30); Basophils Percent Auto 0.3 % (0.0-3.0); Eosinophils Percent Auto 1.9 % (0.0-7.0); Hematocrit 34.8 % (37.0-53.0); Immature Granulocytes Abs Auto 0.03 K/uL (0.00-0.30); Immature Granulocytes Pct Auto 0.3 %; Lymphocytes Absolute Auto 2.13 K/uL (0.90-2.90); Lymphocytes Percent Auto 20.4 % (20-44); Mean Corpuscular HGB Conc 32 gm/dL (32-36); Mean Corpuscular Hemoglobin 30 pg (26-34); Mean Corpuscular Volume 96 fL (80-100); Monocytes Percent Auto 5.7 % (0.0-11.0); Neutrophils Absolute Auto 7.47 K/uL (1.7-7.0); Neutrophils Percent Auto 71.4 % (42.0-72.0); Platelet Count* 296 K/uL (140-440); RDW Coefficient of Variation % 13.7 % (11.5-15.5); Red Blood Count 3.64 m/uL (4.30-5.90); White Blood Count* 10.46 K/uL (4.50-11.00)
[2023-09-07 11:21] LABS: Slide Review Reflex No
[2023-09-07 11:29] LABS: Albumin* 3.9 g/dL (3.3-5.0); Chloride* 99 mmol/L (96-114); Sodium* 133 mmol/L (135-149)
[2023-09-07 11:30] LABS: Potassium* 3.9 mmol/L (3.6-5.1)
[2023-09-07 11:32] LABS: Alanine Aminotransferase* 13 U/L (4-50); Alkaline Phosphatase* 85 U/L (40-150); Anion Gap 8 mEq/L (7-15); Aspartate Amino Transferase* 21 U/L (12-35); Bilirubin Total* 1.6 mg/dL (0.1-1.5); Blood Urea Nitrogen* 13 mg/dL (7-30); Carbon Dioxide* 26 mmol/L (20-32); Est. Creatinine Clearance* 62.86; Estimated Glomerular Filt Rate 77 ml/min; Glucose* 122 mg/dL (60-115)
[2023-09-07 11:33] LABS: Calcium* 8.9 mg/dL (8.4-10.6)
--- NOTE | 2023-09-07 14:27 | ONC.NURNOTE ---
Patient Chad called to see if images have been read (his appt was cancelled last week due to radiologist not comparing to correct scan?)? Pt has an appt for labs on 09/07/23, and Keytruda on 09/08/23. Radiology called today, The CT soft tissue neck was compared to PET/CT 05/12/23 and previous soft tissue neck CT from 11/29/22 (Radiology believes there was a typo stating it was compared to CT done on 06/21/22- they are going to fix this typo).? CT of Chest/Abd/Pelvis was compared to PET/CT 05/12/23, and CT Chest/abd/pelvis from 11/29/22.? I did ask radiology to have it compared to the Chest CT done on 06/02/23. Email sent to Dr. Hurtado, Xena Garzon PA-C, and Judy Kingsley APRN to see if we can still treat.
== END 2023-09-13 23:59 | disposition home or self-care (01) ==
LOC: CCIC 11:00
PROVIDERS: Clinical Nurse Specialist; Physician Assistant; PCP Student in an Organized Health Care Education/Training Program; Referring Provider Family Medicine; Visit Provider Internal Medicine Hematology & Oncology
DX: C91.10 Chronic lymphocytic leukemia of B-cell type not having achieved remission (principal); R79.89 Other specified abnormal findings of blood chemistry; C07 Malignant neoplasm of parotid gland; Z51.81 Encounter for therapeutic drug level monitoring
CPT/HCPCS: 36415; 80048; 80053; 80076; 82247; 82248; 82533; 83010; 83615; 84100; 84443; 84550; 85025; 88184; 88185; 93971; 96365; 96376; 96413; 96415; 99211; 99212; 99214; 99215; G0463; A9270; J1100; J1200; J7050; J9271; J9301

== ENCOUNTER 2023-11-10 09:16 | Outpatient (CLI) | payer MEDICARE, BC, SELFPAY ==
--- OUTSIDE RECORDS SUMMARY | 2023-11-10 09:20 | XMS_ITS | Encounter Summary ---
Author Organization [facility] Address [address] [place] [address] Care Team Providers Care Rn Procedure Name Role Phone Elsewhere, Pcp Primary Care Provider Unavailabl e Reason for Visit * Reason Comments Med Refill Encounter Details Date Type Department Care Team (Late st Contact Info) Description 10/08/2023 Refill Department of Cardiovascular Diseases in [address] [phone] Flo Nazario M.D. [address] [place] [phone] Med Refill Social History Tobacco Use Types Packs/Day Years Used Date Smoking Tobacco: Never Smokeless Tobacco: Never Alcohol Use Standard Drinks/Week Comments Never 0 (1 standard drink = 0.6 oz pur e alcohol) Humiliation, Afraid, Rape, and Kick questionnair e Answer Date Recorded Within the last year, have y ou been afraid of your partner or ex-partner? No 06/30/2021 Within the last year, have y ou been humiliated or emotionally abused in other ways by your partner or ex-partner? No Within the last year, have y ou been kicked, hit, slapped, or otherwise physically hurt by your partner or ex-partner? No 06/30/2021 Within the last year, have y ou been raped or forced to have any kind of sexual activity by your partner or ex-partner? No 06/30/2021 Social Connection and Isolation Panel [NHANES] A nswer Date Recorded In a typical week, how many times do you talk on the phone with family, friends, or neighbors? Once a week 06/30/2021 How often do you get togethe r with friends or relatives? Once a week 06/30/2021 How often do you attend hoahaoism or holiness serv ices? Never 06/30/2021 Do you belong to any clubs o r organizations such as hoahaoism groups, unions, fraternal or athletic groups, or school groups? Yes 06/30/2021 How often do you attend meet ings of the clubs or organizations you belong to? Patient declined 06/30/2021 Are you , , di vorced, , never , or living with a partner? 06/30/2021 AUDIT-C Answer Date Recorded Q1: How often do you have a drink containing alc ohol? Never 06/30/2021 Average Number of Drinks Not on file 022 Frequency of Binge Drinking Not on file 06/07 Overall Financial Resource Strain (CARDIA) Answe r Date Recorded How hard is it for you to pa y for the very basics like food, housing, medical care, and heating? Not hard at all 06/30/2021 [facility] Occup[facility] ional [facility] - Occupational Stress Questionnaire Answer Date Recorded Do you feel stress - tense, restless, nervous, or anxious, or unable to sleep at night because your mind is troubled all the time - these days? Only a little 06/30/2021 Exercise Vital Sign Answer Date Recorde d On average, how many days pe r week do you engage in moderate to strenuous exercise (like a brisk walk)? 3 days 06/30/2021 On average, how many minutes do you engage in exercise at this level? 30 min 06/30/2021 Hunger Vital Sign Answer Date Recorded Within the past 12 months, y ou worried that your food would run out before you got the money to buy more. Never true 06/30/19 22 Within the past 12 months, t he food you bought just didn't last and you didn't have money to get more. Never true 06/30/2021 PRAPARE - Transportation Answer Date Re corded In the past 12 months, has l ack of transportation kept you from medical appointments or from getting medications? No 06/07 In the past 12 months, has l ack of transportation kept you from meetings, work, or from getting things needed for daily living? No 06/30/2021 Housing Stability Vital Sign Answer James e Recorded In the last 12 months, was t here a time when you were not able to pay the mortgage or rent on time? No 06/30/2021 In the last 12 months, how many places have you lived? 1 06/30/2021 In the last 12 months, was t here a time when you did not have a steady place to sleep or slept in a custodial (including now)? No 06/30/2021 Depression Answer Date Recor ded PHQ-9 Total Score (max 27) 6 07/17 Nutrition Answer Date Recorded Nutrition: EVOO Fat Source No 06/30 On average, how many serving s of fruits and vegetables do you eat per day (serving size is equal to 1 cup or approximately the size of a tennis ball)? 0-1 06/30/2021 Dental Answer Date Recorded Dental: Regular Dentist Yes 06/30/19 Employment Answer Date Recorded Employment status Retired 06/30/2021 Education Answer Date Recorded What is the highest level of school you have completed or the highest degree you have received? Professional school degree (e.g., MD, DDS, DVM, GRACIELA) 06/30/2021 Sex and Gender Information Value Date Recorded Sex Assigned at Male 06/30/2021 12:19 PM AIRCRAFT TECHNICIAN Gender Identity Male 06/30/2021 12:19 PM AIRCRAFT TECHNICIAN Sexual Orientation Straight 06/30/2021 12 :19 PM AIRCRAFT TECHNICIAN documented as of this encounter Plan of Treatment Upcoming Encounters Date Type Department Care Team (Latest Contact Info) Description 01/10/2024 7:45 AM CDT Clinical Communication Virtual Review in [place], [place] [address] [place] [phone] 01/12/2024 9:40 AM CDT Ancillary Procedure Department of Cardiovascular Medicine in [place], [place] [address] [place] [phone] Ron Santana M.D., Ph.D. [address] [place] [phone] 01/12/2024 10:00 AM CDT Appointment Department of Cardiovascular Diseases in [place], [place] [address] [place] [phone] Ron Santana M.D., Ph.D. [address] [place] [phone] 01/12/2024 10:30 AM CDT Appointment Department of Laboratory Medicine and Pathology, [facility] in [place], [place] [address] [place] [address] Ron Santana M.D., Ph.D. [address] [place] [phone] 01/12/2024 2:00 PM CDT Appointment Department of Radiology, [facility] in [place], [place] [address] [place] [address] Ron Santana M.D., Ph.D. [address] [place] [phone] 01/13/2024 8:00 AM CDT Office Visit Department of Cardiovascular Medicine in [place], [place] [address] [place] [address] Marilu Castaneda P.A.-C., M.S. [address] [place] [phone] 01/13/2024 10:30 AM CDT Appointment Department of Cardiovascular Diseases in [place], [place] [address] [place] [phone] Ron Santana M.D., Ph.D. [address] [place] [phone] 01/16/2024 12:25 PM CDT Hospital Encounter Division of Cardiovascular Diseases in [place], [place] [address] [place] [phone] oRn Santana M.D., Ph.D. [address] [place] [address] Atrial Fibrillation Longstanding Persistent (HCC) 01/16/2024 12:25 PM CDT - 01/16/2024 4:35 PM CDT Surgery Division of Cardiovascular Diseases in [place], [place] [address] [place] [phone] Ron Santana M.D., Ph.D. [address] [place] [phone] PULSED FIELD ABLATION documented as of this encounter Visit Diagnoses Not on filedocumented in this encounter Additional Health Concerns Infection Onset Date Last Indicated Resolved Time Protective Environment 09/20/2022 09/20/2022 Assessment Noted Time PHQ-9 Depression Total Score: 6 07/17/19 20 10:26 AM AIRCRAFT TECHNICIAN documented as of this encounter Care Teams Rn Procedure Relationship Specialty Start Date End Date Elsewhere, Pcp PCP - General Cobol Engineer 06/27/19 documented as of this encounter
--- OUTSIDE RECORDS SUMMARY | 2023-11-10 09:20 | XMS_ITS ---
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 Atrial Fibrillation Unspecified 01/06/2022 Postprocedural Hematoma Of S kin And Subcutaneous Tissue Following Other Procedure 11/06/2020 Overview: Left wrist hematoma Hypertension White Coat 11/05/2020 Atrial Fibrillation Longstanding Persistent 12/2020 Overview: Status post catheter ablation, November 2020 Hypomagnesemia 06/29/2019 Repair Mitral Valve Status Post 06/28/2019 Gout 06/28/2019 Benign Prostatic Hyperplasia Without Obstruction 06/28/2019 Personal History Of Malignant Neoplasm Of Prosta te 06/28/2019 Overview: 2005 s/p radioactive seeds Tachycardia Ventricular Personal History 020 Overview: Paroxysmal VT in 2008. During stress test. No recurrence since. 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 Past Plans Infusion Therapy 1 Plan Name Start Date Discontinue Date Treatment Medications Discontinue Reason Plan Provider TIXAGEVIMAB-CILGAV IMAB (EVUSHELD) - EMERGENCY USE AUTHORIZATION 08/23/2021 08/31/2021 No medications scheduled. Therapy Complete Fermin Lloyd M.B.B.S. Radiation Treatments * No radiation treatments are documented for this patient in [facility]. Treatments may have been administered in another system.
--- OUTSIDE RECORDS SUMMARY | 2023-11-10 09:20 | XMS_ITS | Encounter Summary ---
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 Social History Tobacco Use Types Packs/Day Years [...] week 06/30/2021 How often do you attend judaism or anabaptist serv ices? Never 06/30/2021 Do you belong to any clubs o r organizations such as judaism groups, unions, fraternal or athletic groups, or [...] and heating? Not hard at all 06/30/2021 [facility] Occupat ional Health - Occupational Stress [...] place to sleep or slept in a half-way (including now)? No 06/30/2021 Depression Answer Date [...] Sex Assigned at Male 06/30/2021 12:19 PM RESPIRATORY TECH Gender Identity Male 06/30/2021 12:19 PM RESPIRATORY TECH Sexual Orientation Straight 06/30/2021 12 :19 PM RESPIRATORY TECH documented as of this encounter Plan of Treatment Upcoming Encounters Date Type Department Care Team (Latest Contact Info) Description 01/10/2024 7:45 AM CDT Clinical Communication Virtual Review in [address] [phone] 01/12/2024 9:40 AM CDT Ancillary Procedure Department of Cardiovascular Medicine in [address] [phone] Ron Santana M.D., Ph.D. [address] [place] [phone] 01/12/2024 10:00 AM CDT Appointment Department of Cardiovascular Diseases in [address] [phone] Ron Santana M.D., Ph.D. [address] [place] [phone] 01/12/2024 10:30 AM CDT Appointment Department of Laboratory Medicine and Pathology, [facility] in [place], [place] [address] [place] [phone] Ron Santana M.D., Ph.D. [address] [place] [phone] 01/12/2024 2:00 PM CDT Appointment Department of Radiology, [facility] in [place], [place] [address] [place] [phone] Ron Santana M.D., Ph.D. [address] [place] [phone] 01/13/2024 8:00 AM CDT Office Visit Department of Cardiovascular Medicine in [place], [place] [address] [place] [phone] Marilu Castaneda P.A.-Nikki., M.S. [address] [place] [phone] 01/13/2024 10:30 AM CDT Appointment Department of Cardiovascular Diseases in [place], [place] [address] [place] [phone] Ron Santana M.D., Ph.D. [address] [place] [phone] 01/16/2024 12:25 PM CDT Hospital Encounter Division of Cardiovascular Diseases in [address] [phone] Ron Santana M.D., Ph.D. [address] [place] [phone] Atrial Fibrillation Longstanding Persistent (HCC) 01/16/2024 12:25 PM CDT - 01/16/2024 4:35 PM CDT Surgery Division of Cardiovascular Diseases in [place], [place] [address] [place] [phone] Ron Santana M.D., Ph.D. [address] [place] [phone] PULSED FIELD ABLATION documented as of this encounter Visit Diagnoses Not on filedocumented in this encounter Additional Health Concerns Infection Onset Date Last Indicated Resolved Time Protective Environment 09/20/2022 09/20/2022 Assessment Noted Time PHQ-9 Depression Total Score: 6 07/17/19 20 10:26 AM RESPIRATORY TECH documented as of this encounter Care Teams Asphalt Plant Operator Relationship Specialty Start Date End Date Elsewhere, Pcp PCP - General Weatherization Director 06/27/19 documented as of this encounter
--- OUTSIDE RECORDS SUMMARY | 2023-11-10 09:20 | XMS_ITS | Referral Summary ---
Author Organization [facility] Address [address] [place] [id number] Care Team Providers Care Load Tester Name Role Phone Elsewhere, Pcp Primary Care Provider Unavailabl e Source Comments Patient records contain information from all sites at [facility]. For routine questions regarding patient records, call [phone] during business hours, M-F 8:00 AM - 5:00 PM Central Time. Record requests for emergency care only can be directed to [phone] at any time.[facility] Encounters Date Type Department Care Team Description 11/09/2023 Clinical Communication Department of Cardiovascular Medicine in [place], [place] [address] [place] [address] Almond Blancher OperatorZelalem M.D. 11/08/2023 Clinical Communication Department of Cardiovascular Medicine in [place], [place] [address] [place] [address] Vee Jalloh R.N. 10/08/2023 Refill Department of Cardiovascular Diseases in [address] [phone] Flo Nazario M.D. Med Refill 10/06/2023 4:30 PM CDT Virtual Visit Department of Cardiovascular Medicine in [place], [place] [address] [place] [address] Ron Santana M.D., Ph.D. Atrial Fibrillation Unspecified (HCC) (Primary Dx) 10/06/2023 Orders Only Division of Cardiovascular Diseases in [place], [place] [address] [place] [address] Ron Santana M.D., Ph.D. 10/06/2023 Clinical Communication Department of Cardiovascular Medicine in [address] [phone] Ron Santana M.D., Ph.D. Med Question (Calquence dosage / ablation list) 09/09/2023 9:25 AM CDT - 09/09/2023 11:59 PM CDT Hospital Encounter Department of Radiology in [address] [phone] Birdie Hurtado M.D. Malignant Neoplasm Of Disseminated (HCC); Malignant Neoplasm Of Lip Squamous Cell Discharge Disposition: Home or Self Care 09/09/2023 Orders Only Department of Oncology in [address] [phone] Birdie Hurtado M.D. 09/09/2023 7:53 AM CDT - 09/09/2023 9:24 AM CDT Hospital Encounter Department of Radiology in [address] [phone] Birdie Hurtado M.D. Malignant Neoplasm Of Disseminated (HCC); Malignant Neoplasm Of Lip Squamous Cell Discharge Disposition: Home or Self Care 09/09/2023 7:53 AM CDT - 09/09/2023 9:24 AM CDT Hospital Encounter Department of Radiology in [address] [phone] Birdie Hurtado M.D. Malignant Neoplasm Of Disseminated (HCC); Malignant Neoplasm Of Lip Squamous Cell Discharge Disposition: Home or Self Care 09/09/2023 7:53 AM CDT - 09/09/2023 9:24 AM CDT Hospital Encounter Department of Radiology in [address] [phone] Birdie Hurtado M.D. Malignant Neoplasm Of Disseminated (HCC); Malignant Neoplasm Of Lip Squamous Cell Discharge Disposition: Home or Self Care 09/09/2023 Orders Only Department of Oncology in [address] [phone] Birdie Hurtado M.D. Malignant Neoplasm Of Disseminated (HCC) (Primary Dx); Malignant Neoplasm Of Lip Squamous Cell 08/14/2023 Documentation Department of Cardiovascular Medicine in [address] [phone] Ron Santana M.D., Ph.D. 08/14/2023 Orders Only Division of Cardiovascular Diseases in [address] [phone] Ron Santana M.D., Ph.D. Atrial Fibrillation Unspecified (HCC) (Primary Dx) from Last 3 Months Allergies Active Allergy Reactions Criticality Noted Date Comments Ibrutinib Rash 11/04/2020 Penicillins Hives (Reselect Reaction) *reaction when teenager, Penicillin G. Medications Medication Sig Dispensed Refills Start Date End Date Status ALPRAZolam (XANAX) 0.25 mg tablet Take 0.125 mg by mouth as needed for anxiety. 08/16/2018 Active famotidine (PEPCID) 20 mg tablet Take 20 mg by mouth daily. Active calcium carbonate (calcium carbonate) 1000 mg (400 mg calcium) chewable tablet Chew 1 tablet daily. Active magnesium chloride (Slow-Mag) 71.[address] tablet Take 1 tablet (71.5 mg total) by mouth daily. 01/09/2022 Active tamsulosin (FLOMAX) 0.4 mg 24 hr capsule 0.4 mg daily. 01/14/2022 A ctive Calquence, acalabrutinib mal, 100 mg tablet Take 100 mg by mouth. 10/06/2022 Active amiodarone (PACERONE) 200 mg tablet Take 0.5 tablets (100 mg total) by mouth daily. 45 tablet 3 11/24/2022 11/24/2023 Active ferrous sulfate 325 mg (65 mg iron) DR tablet Take 325 mg by mouth. 12/23/2022 Active levothyroxine (SYNTHROID, LEVOTHROID) 50 mcg tablet Take 50 mcg by mouth. 12/23/2022 Active omeprazole (PriLOSEC) [address] capsule Take 40 mg by mouth. 12/14/2022 Active rivaroxaban (Xarelto) 20 mg tablet Take 1 tablet (20 mg total) by mouth daily with dinner. 90 tablet 3 02/23/2023 Active lisinopriL (PRINIVIL,ZESTRIL) 10 mg tablet Take 1 tablet (10 mg total) by mouth 2 (two) times a day. 270 tablet 3 02/23/2023 Active metoprolol tartrate (LOPRESSOR) 25 mg tablet Take 1 tablet (25 mg total) by mouth 2 (two) times a day. 180 tablet 3 04/13/2023 Active metoprolol succinate (TOPROL-XL) 25 mg 24 hr tablet 04/14/2023 Active oxyCODONE (ROXICODONE) 5 mg immediate release tabletIndications:Ch ronic Pain/Nonacute Pain Take 1-2 tablets (5-10 mg total) by mouth every 4 (four) hours as needed for moderate pain or score 4-6 of 10 Indication: Chronic Pain/Nonacute Pain. 30 tablet 06/01/2023 Active atorvastatin (LIPITOR) 20 mg tablet TAKE ONE TABLET BY MOUTH ONCE EVERY DAY 90 tablet 3 10/11/2023 Active Hospital, Clinic, or Other Facility Administered Medication Ordered Dose Route Frequency Start Date End Date Status lidocaine-sodium bicarbonate (buffered) 0.9%-8.4% injection 2 mL 2 mL Ifil As needed 03/09/2023 Active Active Problems Problem Noted Date Diagnosed Date [...] Essential Primary 09/16/2008 Anxiety Generalized Disorder 09/16/2008 Immunizations Name Administration Dates Next Due H1N1 All Forms 04/21/2009 HZV (ZOSTAVAX) 10/12/2010 Influenza TIV (IM) 03/09/2018, 7,03/15/2011,2007,03/17/2007,04/09/2006 Influenza, Seasonal, Injectable 03/15/20 11,04/10/2008,03/17/2007,2005 PCV13 12/20/2014 PPSV23 10/12/2010 Td, (Adult) Unspecified 01/19/2006 Tdap 09/11/2012 influenza high dose (65 year s or older) (PF) 02/12/2019,03/09/2016,03/20/2015,2013 influenza vaccine quad (FLUZONE/FLUARIX) (6 months and older)(PF) 03/14/2013 Social History Tobacco Use Types Packs/Day Years Used Date Smoking Tobacco: Never Smokeless Tobacco: Never Tobacco Cessation:Counseling Given: Not Answered Alcohol Use Standard Drinks/Week Comments Never 0 [...] week 06/30/2021 How often do you attend hindu or advent serv ices? Never 06/30/2021 Do you belong to any clubs o r organizations such as hindu groups, unions, fraternal or athletic groups, or [...] and heating? Not hard at all 06/30/2021 [facility] - Occupational Stress [...] place to sleep or slept in a intermediate (including now)? No 06/30/2021 Depression Answer Date [...] Sex Assigned at Male 06/30/2021 12:19 PM HEARING THERAPIST Gender Identity Male 06/30/2021 12:19 PM HEARING THERAPIST Sexual Orientation Straight 06/30/2021 12 :19 PM HEARING THERAPIST Last Filed Vital Signs Vital Sign Reading Time Taken Comments Blood Pressure 168/75 05/03/2023 4:01 PM HEARING THERAPIST Pulse 73 05/03/2023 4:01 PM HEARING THERAPIST Temperature 36.6 ??C (97.9 ??F) 05/03/2023 3:58 PM CS T Respiratory Rate 17 10/13/2022 5:15 PM CDT Oxygen Saturation 98% 05/03/2023 3:58 PM HEARING THERAPIST Room air Inhaled Oxygen Concentration - - Weight 81 kg (178 lb 9.2 oz) 05/03/2023 3:58 PM HEARING THERAPIST Height 179 cm (5' 10.47) 04/02/2022 1:10 PM CDT Body Mass Index 25.28 04/02/2022 1:10 PM CDT Plan of Treatment Upcoming Encounters Date Type Department Care Team (Latest Contact Info) Description 01/10/2024 7:45 AM CDT Clinical Communication Virtual Review in [place], [place] [address] [place] [address] 01/12/2024 9:40 AM CDT Ancillary Procedure Department of Cardiovascular Medicine in [place], [place] [address] [place] [phone] Ron Santana M.D., Ph.D. [address] [place] [phone] 01/12/2024 10:00 AM CDT Appointment Department of Cardiovascular Diseases in [place], [place] [address] [place] [phone] Ron Santana M.D., Ph.D. [address] [place] [phone] 01/12/2024 10:30 AM CDT Appointment Department of Laboratory Medicine and Pathology, [facility] in [place], [place] [address] [place] [phone] Ron aSntana M.D., Ph.D. [address] [place] [phone] 01/12/2024 2:00 PM CDT Appointment Department of Radiology, [facility], in [place], [place] [address] [place] [phone] Ron Santana M.D., Ph.D. [address] [place] [phone] 01/13/2024 8:00 AM CDT Office Visit Department of Cardiovascular Medicine in [place], [place] [address] [place] [phone] Marilu Castaneda P.A.-C., M.S. [address] [place] [phone] 01/13/2024 10:30 AM CDT Appointment Department of Cardiovascular Diseases in [address] [phone] Ron Santana M.D., Ph.D. [address] [place] [phone] 01/16/2024 12:25 PM CDT Hospital Encounter Division of Cardiovascular Diseases in [address] [phone] Ron Santana M.D., Ph.D. [address] [place] [phone] Atrial Fibrillation Longstanding Persistent (HCC) 01/16/2024 12:25 PM CDT - 01/16/2024 4:35 PM CDT Surgery Division of Cardiovascular Diseases in [address] [phone] Ron Santana M.D., Ph.D. [address] [place] [phone] PULSED FIELD ABLATION Medical Devices Implanted Type Area Director Of Brand Marketing Device Identifier Shelf Expiration Date Model / Serial / Lot Clp Tania Clip Del Sys Xtr - [id number] Implanted:Qty : 1 on 06/28/2019 by Hernandez Echevarria M.D. 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 INTERPRETATION OF OUTSIDE CT CHEST RAD - Routine (most inpatients and all outpatients) 09/09/2023 9:22 AM CDT 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 INTERPRETATION OF OUTSIDE CT NECK RAD - Routine (most inpatients and all outpatients) 09/09/2023 8:47 AM CDT 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 INTERPRETATION OF OUTSIDE NM PET SCAN RAD - Routine (most inpatients and all outpatients) 09/09/2023 8:47 AM CDT 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 OUTSIDE CT BODY Routine 08/30/2023 9:[address] NEURO Routine 08/30/2023 9:40 AM CDT CREATININE WITH EGFR, S/P Routine 05/23/2023 8:43 AM HEARING THERAPIST 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 Progressed diffuse lymphadenopathy throughout the chest, abdomen and pelvis which is favored to represent regression of the patient's CLL, metastatic disease considered less likely. 2. Patchy groundglass attenuation in both lungs has decreased which is favored to represent a resolving inflammatory process. The previously seen FDG avid right upper lobe pulmonary nodule has significantly decreased in size, however there are multiple new and enlarging pulmonary nodules. While these may also represent an infectious or inflammatory process, metastatic disease cannot be excluded. 3. 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 Narrative 09/09/2023 10:00 AM CDT EXAM: ??INTERPRETATION OF OUTSIDE CT CHEST, INTERPRETATION OF OUTSIDE CT ABDOMEN AND OR PELVIS COMPARISON: ??CT chest abdomen pelvis 11/29/2022 and PET/CT 05/12/2023 FINDINGS: ?? Please note the examination is limited due to lack of sagittal images of the chest and coronal images of the abdomen and pelvis. CT EXAMINATION THE CHEST PERFORMED WITH INTRAVENOUS CONTRAST ON 08/30/2023: Previously seen areas of groundglass attenuation throughout both lungs has significantly decreased from prior PET/CT 05/12/2023. However, multiple solid pulmonary nodules are new/have increased in size, largest in the right middle lobe measuring up to 1.0 cm on series 3 image 75 which is new from the prior study. The previously seen FDG avid nodule on prior PET/CT has significantly decreased in size measuring 0.3 cm on series 3 image 53, previously 1.2 cm on prior PET/CT. 9 mm left lower lobe pulmonary nodule on series 3 image 74 is new from prior chest CT 11/29/2022. No pleural effusion or pneumothorax. Diffuse thoracic lymphadenopathy has progressed from the prior study including bilateral supraclavicular, axillary and mediastinal lymphadenopathy. For reference a paratracheal lymph node measures 1.3 cm short axis, previously 1.2 cm on prior PET/CT. A left axillary lymph node measures 1.2 cm in cortical thickness, previously 0.7 cm on series 2 image 32. Moderate cartilage. Calcified atherosclerosis in the coronary arteries. Bone windows demonstrate moderate multilevel spondylosis. CT EXAMINATION OF THE ABDOMEN PELVIS PERFORMED WITH INTRAVENOUS CONTRAST ON 08/30/2023: Multiple hypodense liver lesions appear unchanged and remain too small to characterize, favored to represent cysts. Spleen, pancreas and adrenal glands are normal. Nonobstructing sub-3 mm left renal stones. Hypodense renal lesions are too small to characterize but favored to represent cysts. Brachytherapy seeds noted in the prostate. Portal, splenic and superior mesenteric veins are patent. Calcified atherosclerosis throughout the aorta and major branches. Progressed diffuse lymphadenopathy throughout the abdomen and pelvis. For reference a left periaortic lymph node measures 2.5 cm short axis, previously 1.5 cm centimeters on 11/29/2022 and 1.7 cm on 05/12/2023. A periportal lymph node conglomerate with central hypoattenuation measures 5.1 cm x 3.8 cm and is not sufficiently changed in size from prior CT and PET/CT. No dilated loops of small or large bowel. No free intraperitoneal fluid or gas. Bone windows demonstrate moderate multilevel spondylosis. Procedure Note Nayan Webb M.D. - 09/09/2023 EXAM: INTERPRETATION OF OUTSIDE CT CHEST, INTERPRETATION OF OUTSIDE CTABDOMEN AND OR PELVIS COMPARISON: CT chest abdomen pelvis 11/29/2022 and PET/CT 05/12/2023 FINDINGS: Please note the examination is limited due to lack of sagittal images ofthe chest and coronal images of the abdomen and pelvis. CT EXAMINATION THE CHEST PERFORMED WITH INTRAVENOUS CONTRAST ON08/30/2023: Previously seen areas of groundglass attenuation throughout both lungs hassignificantly decreased from prior PET/CT 05/12/2023. However, multiplesolid pulmonary nodules are new/have increased in size, largest in theright middle lobe measuring up to 1.0 cm on series 3 image 75 which is new from the prior study. The previouslyseen FDG avid nodule on prior PET/CT has significantly decreased in sizemeasuring 0.3 cm on series 3 image 53, previously 1.2 cm on prior PET/CT.9 mm left lower lobe pulmonary nodule on series 3 image 74 is new from prior chest CT 11/29/2022. Nopleural effusion or pneumothorax. Diffuse thoracic lymphadenopathy has progressed from the prior studyincluding bilateral supraclavicular, axillary and mediastinallymphadenopathy. For reference a paratracheal lymph node measures 1.3 cmshort axis, previously 1.2 cm on prior PET/CT. A left axillary lymph node measures 1.2 cm in cortical thickness, previously0.7 cm on series 2 image 32. Moderate cartilage. Calcified atherosclerosisin the coronary arteries. Bone windows demonstrate moderate multilevel spondylosis. CT EXAMINATION OF THE ABDOMEN PELVIS PERFORMED WITH INTRAVENOUS CONTRASTON 08/30/2023: Multiple hypodense liver lesions appear unchanged and remain too small tocharacterize, favored to represent cysts. Spleen, pancreas and adrenalglands are normal. Nonobstructing sub-3 mm left renal stones. Hypodenserenal lesions are too small to characterize but favored to represent cysts. Brachytherapy seeds noted inthe prostate. Portal, splenic and superior mesenteric veins are patent. Calcifiedatherosclerosis throughout the aorta and major branches. Progressed diffuse lymphadenopathy throughout the abdomen and pelvis. Forreference a left periaortic lymph node measures 2.5 cm short axis,previously 1.5 cm centimeters on 11/29/2022 and 1.7 cm on 05/12/2023. Aperiportal lymph node conglomerate with central hypoattenuation measures 5.1 cm x 3.8 cm and is not sufficientlychanged in size from prior CT and PET/CT. No dilated loops of small or large bowel. No free intraperitoneal fluid orgas. Bone windows demonstrate moderate multilevel spondylosis. IMPRESSION: 1. Progressed diffuse lymphadenopathy throughout the chest, abdomen andpelvis which is favored to represent regression of the patient's CLL,metastatic disease considered less likely. 2. Patchy groundglass attenuation in both lungs has decreased which isfavored to represent a resolving inflammatory process. The previously seenFDG avid right upper lobe pulmonary nodule has significantly decreased insize, however there are multiple new and enlarging pulmonary nodules. While these may also represent aninfectious or inflammatory process, metastatic disease cannot beexcluded. 3. Unchanged periportal soft tissue mass consistent with treatedlymphoma. Birdie Hurtado M.D. [facility] [place] * Interpretation of Outside CT Chest (09/09/2023 9:22 AM CDT) Anatomical Region Laterality Modality Chest, Thoracic RST LOS, Tho racic ARZ LOS, Thoracic FLA LOS, Other, Body N/A Computed Tomography Impressions 09/09/2023 10:00 AM CDT 1. Progressed diffuse lymphadenopathy throughout the chest, abdomen and pelvis which is favored to represent regression of the patient's CLL, metastatic disease considered less likely. 2. Patchy groundglass attenuation in both lungs has decreased which is favored to represent a resolving inflammatory process. The previously seen FDG avid right upper lobe pulmonary nodule has significantly decreased in size, however there are multiple new and enlarging pulmonary nodules. While these may also represent an infectious or inflammatory process, metastatic disease cannot be excluded. 3. 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 Narrative 09/09/2023 10:00 AM CDT EXAM: ??INTERPRETATION OF OUTSIDE CT CHEST, INTERPRETATION OF OUTSIDE CT ABDOMEN AND OR PELVIS COMPARISON: ??CT chest abdomen pelvis 11/29/2022 and PET/CT 05/12/2023 FINDINGS: ?? Please note the examination is limited due to lack of sagittal images of the chest and coronal images of the abdomen and pelvis. CT EXAMINATION THE CHEST PERFORMED WITH INTRAVENOUS CONTRAST ON 08/30/2023: Previously seen areas of groundglass attenuation throughout both lungs has significantly decreased from prior PET/CT 05/12/2023. However, multiple solid pulmonary nodules are new/have increased in size, largest in the right middle lobe measuring up to 1.0 cm on series 3 image 75 which is new from the prior study. The previously seen FDG avid nodule on prior PET/CT has significantly decreased in size measuring 0.3 cm on series 3 image 53, previously 1.2 cm on prior PET/CT. 9 mm left lower lobe pulmonary nodule on series 3 image 74 is new from prior chest CT 11/29/2022. No pleural effusion or pneumothorax. Diffuse thoracic lymphadenopathy has progressed from the prior study including bilateral supraclavicular, axillary and mediastinal lymphadenopathy. For reference a paratracheal lymph node measures 1.3 cm short axis, previously 1.2 cm on prior PET/CT. A left axillary lymph node measures 1.2 cm in cortical thickness, previously 0.7 cm on series 2 image 32. Moderate cartilage. Calcified atherosclerosis in the coronary arteries. Bone windows demonstrate moderate multilevel spondylosis. CT EXAMINATION OF THE ABDOMEN PELVIS PERFORMED WITH INTRAVENOUS CONTRAST ON 08/30/2023: Multiple hypodense liver lesions appear unchanged and remain too small to characterize, favored to represent cysts. Spleen, pancreas and adrenal glands are normal. Nonobstructing sub-3 mm left renal stones. Hypodense renal lesions are too small to characterize but favored to represent cysts. Brachytherapy seeds noted in the prostate. Portal, splenic and superior mesenteric veins are patent. Calcified atherosclerosis throughout the aorta and major branches. Progressed diffuse lymphadenopathy throughout the abdomen and pelvis. For reference a left periaortic lymph node measures 2.5 cm short axis, previously 1.5 cm centimeters on 11/29/2022 and 1.7 cm on 05/12/2023. A periportal lymph node conglomerate with central hypoattenuation measures 5.1 cm x 3.8 cm and is not sufficiently changed in size from prior CT and PET/CT. No dilated loops of small or large bowel. No free intraperitoneal fluid or gas. Bone windows demonstrate moderate multilevel spondylosis. Procedure Note Nayan Webb M.D. - 09/09/2023 EXAM: INTERPRETATION OF OUTSIDE CT CHEST, INTERPRETATION OF OUTSIDE CTABDOMEN AND OR PELVIS COMPARISON: CT chest abdomen pelvis 11/29/2022 and PET/CT 05/12/2023 FINDINGS: Please note the examination is limited due to lack of sagittal images ofthe chest and coronal images of the abdomen and pelvis. CT EXAMINATION THE CHEST PERFORMED WITH INTRAVENOUS CONTRAST ON08/30/2023: Previously seen areas of groundglass attenuation throughout both lungs hassignificantly decreased from prior PET/CT 05/12/2023. However, multiplesolid pulmonary nodules are new/have increased in size, largest in theright middle lobe measuring up to 1.0 cm on series 3 image 75 which is new from the prior study. The previouslyseen FDG avid nodule on prior PET/CT has significantly decreased in sizemeasuring 0.3 cm on series 3 image 53, previously 1.2 cm on prior PET/CT.9 mm left lower lobe pulmonary nodule on series 3 image 74 is new from prior chest CT 11/29/2022. Nopleural effusion or pneumothorax. Diffuse thoracic lymphadenopathy has progressed from the prior studyincluding bilateral supraclavicular, axillary and mediastinallymphadenopathy. For reference a paratracheal lymph node measures 1.3 cmshort axis, previously 1.2 cm on prior PET/CT. A left axillary lymph node measures 1.2 cm in cortical thickness, previously0.7 cm on series 2 image 32. Moderate cartilage. Calcified atherosclerosisin the coronary arteries. Bone windows demonstrate moderate multilevel spondylosis. CT EXAMINATION OF THE ABDOMEN PELVIS PERFORMED WITH INTRAVENOUS CONTRASTON 08/30/2023: Multiple hypodense liver lesions appear unchanged and remain too small tocharacterize, favored to represent cysts. Spleen, pancreas and adrenalglands are normal. Nonobstructing sub-3 mm left renal stones. Hypodenserenal lesions are too small to characterize but favored to represent cysts. Brachytherapy seeds noted inthe prostate. Portal, splenic and superior mesenteric veins are patent. Calcifiedatherosclerosis throughout the aorta and major branches. Progressed diffuse lymphadenopathy throughout the abdomen and pelvis. Forreference a left periaortic lymph node measures 2.5 cm short axis,previously 1.5 cm centimeters on 11/29/2022 and 1.7 cm on 05/12/2023. Aperiportal lymph node conglomerate with central hypoattenuation measures 5.1 cm x 3.8 cm and is not sufficientlychanged in size from prior CT and PET/CT. No dilated loops of small or large bowel. No free intraperitoneal fluid orgas. Bone windows demonstrate moderate multilevel spondylosis. IMPRESSION: 1. Progressed diffuse lymphadenopathy throughout the chest, abdomen andpelvis which is favored to represent regression of the patient's CLL,metastatic disease considered less likely. 2. Patchy groundglass attenuation in both lungs has decreased which isfavored to represent a resolving inflammatory process. The previously seenFDG avid right upper lobe pulmonary nodule has significantly decreased insize, however there are multiple new and enlarging pulmonary nodules. While these may also represent aninfectious or inflammatory process, metastatic disease cannot beexcluded. 3. Unchanged periportal soft tissue mass consistent with treatedlymphoma. Birdie Hurtado M.D. [facility] [place] * Interpretation of Outside CT Neck (09/09/2023 8:47 AM CDT) Anatomical Region Laterality Modality Neck, Neuroradiology RST LOS , Neuroradiology ARZ LOS, Neuroradiology FLA LOS, Other N/A Computed Tomography Impressions 09/09/2023 9:40 AM CDT 1. Decrease in size of bilateral parotid masses in keeping with biopsy-proven metastatic disease. 2. Progressed diffuse cervical lymphadenopathy. Given the discrepancy in progression, the diffuse cervical lymphadenopathy may represent progression of the patient's reported CLL versus metastatic disease. Narrative 09/09/2023 9:40 AM CDT EXAM: ??INTERPRETATION OF OUTSIDE CT NECK COMPARISON: ??Neck CT 05/23/2023 FINDINGS: ?? CT neck with intravenous contrast performed 08/30/2023 Multilevel cervical spondylosis. Large posterior disc osteophyte complex asymmetric to the left at the C5-C6 level results in moderate spinal canal stenosis. Small right mastoid air cell effusion. Please see same-day chest CT for thoracic findings. Bilateral ocular lens replacements. Thyroid and submandibular glands are normal. Calcified atherosclerosis at the carotid bifurcations results in at least moderate stenosis of the proximal right and mild stenosis of the proximal left internal carotid arteries. There are again bilateral parotid masses which have decreased in size on the left measuring 4.3 cm AP by 2.4 cm transverse, previously 6.6 cm AP by 4.9 cm transverse. The parotid mass on the right is also slightly decreased in size measuring 3.4 cm AP by 2.9 cm transverse, previously 4.1 cm AP by 3.5 cm transverse. There is progressed is diffuse bilateral cervical lymphadenopathy. For reference a right level 1B lymph node measures 1.2 cm short axis, previously 0.8 cm on series 2 image 38. Procedure Note Nayan Webb M.D. - 09/09/2023 EXAM: INTERPRETATION OF OUTSIDE CT NECK COMPARISON: Neck CT 05/23/2023 FINDINGS: CT neck with intravenous contrast performed 08/30/2023 Multilevel cervical spondylosis. Large posterior disc osteophyte complexasymmetric to the left at the C5-C6 level results in moderate spinal canalstenosis. Small right mastoid air cell effusion. Please see same-day chestCT for thoracic findings. Bilateral ocular lens replacements. Thyroid and submandibular glands arenormal. Calcified atherosclerosis at the carotid bifurcations results inat least moderate stenosis of the proximal right and mild stenosis of theproximal left internal carotid arteries. There are again bilateral parotid masses which have decreased in size onthe left measuring 4.3 cm AP by 2.4 cm transverse, previously 6.6 cm AP by4.9 cm transverse. The parotid mass on the right is also slightlydecreased in size measuring 3.4 cm AP by 2.9 cm transverse, previously 4.1 cm AP by 3.5 cm transverse. There is progressed is diffuse bilateral cervical lymphadenopathy. Forreference a right level 1B lymph node measures 1.2 cm short axis,previously 0.8 cm on series 2 image 38. IMPRESSION: 1. Decrease in size of bilateral parotid masses in keeping withbiopsy-proven metastatic disease. 2. Progressed diffuse cervical lymphadenopathy. Given the discrepancy inprogression, the diffuse cervical lymphadenopathy may representprogression of the patient's reported CLL versus metastatic disease. Birdie DAY CT PROCEDURES * Interpretation of Outside NM PET Scan (09/09/2023 8:47 AM CDT) Anatomical Region Laterality Modality Nuclear Medicine PET RST LOS , Nuclear Medicine ARZ LOS, Nuclear Medicine FLA LOS, Nuclear Medicine, Other, Neuroradiology ARZ LOS, Neuroradiology FLA LOS, Neuroradiology RST LOS, Body N/A Nuclear Medicine Impressions 09/09/2023 10:03 AM CDT 1. Markedly FDG avid bilateral parotid masses which are new from 2019 and continue to slightly increased in size from 11/29/2022 consistent with metastatic disease. 2. Markedly FDG avid subcentimeter right postauricular lymph node also most consistent with metastatic disease. 3. Mildly FDG avid cervical, thoracic and abdominal lymphadenopathy is consistent with the patient's history of CLL. A periportal soft tissue mass has significantly decreased in size and FDG avidity from 2020 and is consistent with treated lymphoma. 4. Development of multiple areas of groundglass attenuation throughout both lungs and small pulmonary nodules, largest of which demonstrates marked FDG avidity. Overall, these findings are indeterminate and may represent additional sites of metastatic disease versus an infectious or inflammatory process. Attention on follow-up recommended. Narrative 09/09/2023 10:03 AM CDT EXAM: ??INTERPRETATION OF OUTSIDE NM PET SCAN dated 05/12/2023. TECHNIQUE: ??F-18 Fluorodeoxyglucose (FDG) PET/CT scan was performed from the orbits through the thighs with CT fusion imaging for attenuation correction and anatomic coregistration only. COMPARISON: ??CT chest abdomen pelvis 11/29/2022 INDICATION: Metastatic squamous cell carcinoma of the head and neck. Subsequent treatment strategy. FINDINGS: ?? PET findings: When compared with the prior PET/CT, there are new bilateral markedly FDG avid parotid gland masses, left larger than right measuring 7.5 cm AP by 4.8 cm transverse, previously measuring 5.0 cm AP by 3.2 cm transverse on the left with maximum SUV 16.9. There are multiple enlarged and mildly FDG avid bilateral cervical, supraclavicular, left axillary, mediastinal and retroperitoneal lymphadenopathy. The most FDG avid lymph node is a 7 mm right postauricular lymph node with maximum SUV 15.3 on fused axial image 10. Overall, these appear stable in size from most recent CT chest, abdomen and pelvis. For reference a right paratracheal lymph node measures 1.2 cm short axis on series 202 image 85. There is a new cluster of pulmonary nodules in the right upper lobe which demonstrate marked FDG avidity, the largest discrete nodule measuring up to 11 mm with maximum SUV 10.7 on these axial image 116. There are additional new patchy areas of groundglass attenuation throughout both lungs with a few scattered subcentimeter pulmonary nodules which do not demonstrate significant FDG avidity. Periportal soft tissue mass has significantly decreased in size from 2020 measuring 5.1 cm x 3.2 cm with maximum SUV 3.6, previously measuring 10.7 cm x 12.2 cm with maximum SUV 6.2. CT findings: Bilateral ocular lens replacements. Severe multilevel spondylosis resulting in high-grade spinal canal stenosis in the cervical and lumbar spine. Mild cardiomegaly. Calcite atherosclerosis in the coronary arteries. Sub-3 mm nonobstructing left renal stones. Subcentimeter hypoattenuating right renal lesion too small to characterize but favored to represent cysts. Radiation seeds noted in the prostate. Unchanged low-attenuation left adrenal nodule without significant FDG avidity most compatible with an adrenal adenoma. Calcified atherosclerosis throughout the aorta and major branches. Procedure Note Nayan Webb M.D. - 09/09/2023 EXAM: INTERPRETATION OF OUTSIDE [place] PET SCAN dated 05/12/2023. TECHNIQUE: F-18 Fluorodeoxyglucose (FDG) PET/CT scan was performed fromthe orbits through the thighs with CT fusion imaging for attenuationcorrection and anatomic coregistration only. COMPARISON: CT chest abdomen pelvis 11/29/2022 INDICATION: Metastatic squamous cell carcinoma of the head and neck.Subsequent treatment strategy. FINDINGS: PET findings: When compared with the prior PET/CT, there are new bilateral markedly FDGavid parotid gland masses, left larger than right measuring 7.5 cm AP by4.8 cm transverse, previously measuring 5.0 cm AP by 3.2 cm transverse onthe left with maximum SUV 16.9. There are multiple enlarged and mildly FDG avid bilateral cervical,supraclavicular, left axillary, mediastinal and retroperitoneallymphadenopathy. The most FDG avid lymph node is a 7 mm rightpostauricular lymph node with maximum SUV 15.3 on fused axial image 10. Overall, these appear stable in size from most recent CTchest, abdomen and pelvis. For reference a right paratracheal lymph nodemeasures 1.2 cm short axis on series 202 image 85. There is a new cluster of pulmonary nodules in the right upper lobe whichdemonstrate marked FDG avidity, the largest discrete nodule measuring upto 11 mm with maximum SUV 10.7 on these axial image 116. There areadditional new patchy areas of groundglass attenuation throughout both lungs with a few scatteredsubcentimeter pulmonary nodules which do not demonstrate significant FDGavidity. Periportal soft tissue mass has significantly decreased in size from 2020measuring 5.1 cm x 3.2 cm with maximum SUV 3.6, previously measuring 10.7cm x 12.2 cm with maximum SUV 6.2. CT findings: Bilateral ocular lens replacements. Severe multilevel spondylosisresulting in high-grade spinal canal stenosis in the cervical and lumbarspine. Mild cardiomegaly. Calcite atherosclerosis in the coronaryarteries. Sub-3 mm nonobstructing left renal stones. Subcentimeter hypoattenuating right renal lesion too small tocharacterize but favored to represent cysts. Radiation seeds noted in theprostate. Unchanged low-attenuation left adrenal nodule withoutsignificant FDG avidity most compatible with an adrenal adenoma. Calcified atherosclerosis throughout the aorta andmajor branches. IMPRESSION: 1. Markedly FDG avid bilateral parotid masses which are new from 2020 andcontinue to slightly increased in size from 11/29/2022 consistent withmetastatic disease. 2. Markedly FDG avid subcentimeter right postauricular lymph node alsomost consistent with metastatic disease. 3. Mildly FDG avid cervical, thoracic and abdominal lymphadenopathy isconsistent with the patient's history of CLL. A periportal soft tissuemass has significantly decreased in size and FDG avidity from 2020 and isconsistent with treated lymphoma. 4. Development of multiple areas of groundglass attenuation throughoutboth lungs and small pulmonary nodules, largest of which demonstratesmarked FDG avidity. Overall, these findings are indeterminate and mayrepresent additional sites of metastatic disease versus an infectious or inflammatory process. Attention onfollow-up recommended. Birdie BULLOCKG NM PROCEDURES * CT chest abdomen pelv w con-Outside CT Body (08/30/2023 9:45 AM CDT) 08/30/2023 9:37 AM CDT Narrative IIND - 08/30/2023 11:39 AM CDT This order has been created and auto-finalized to support the import of outside images. If available, original interpretation can be found on the Media Tab in Chart Review, in Document Viewer, or as an image in QREADS. If a re-interpretation or overread is required please follow defined workflow. ?? Provider Not In System IMG CT PROCEDURES Performing Organization Address [facility] de Phone Number IIMS NA * CT SOFT TISSUE NECK W CON-Outside CT Neuro (08/30/2023 9:40 AM CDT) 08/30/2023 9:37 AM CDT Narrative [facility] - 08/30/2023 11:36 AM CDT This order has been created and auto-finalized to support the import of outside images. If available, original interpretation can be found on the Media Tab in Chart Review, in Document Viewer, or as an image in QREADS. If a re-interpretation or overread is required please follow defined workflow. ?? Provider Not In System IMG CT PROCEDURES Performing Organization Address [facility] Co de Phone Number IIMS NA * Creatinine with Estimated GFR (05/23/2023 8:43 AM HEARING THERAPIST) Creatinine 1.10 0.74 - 1.35 mg/dL 05/23/2023 9:50 AM HEARING THERAPIST DTL Estimated GFR (eGFR) 69 >=60 mL/min/BSA 05/23/2023 9:50 AM HEARING THERAPIST DTL Comment: Estimated GFR calculated using the 2020 CKD_EPI creatinine equation. Blood (Blood, Venous) 05/23/2023 8:43 AM HEARING THERAPIST 05/23/2023 9:27 AM HEARING THERAPIST Karlie Escoto M.D. LAB BLOOD ADD-ON [facility] [address] [place] [address], [place] DTL [facility] [place][note 2] [address] [place] [address] * Potassium (10/26/2022 11:31 AM CDT) Potassium, P 4.4 3.6 - 5.2 mmol/L 10/26/2022 11:56 AM CDT CNFL Blood (Blood, Venous) 10/26/2022 11:31 AM CDT 10/26/2022 11:34 AM CDT Ron Santana M.D., Ph.D. LAB BLOOD AD D-ON [facility] [address] [place] [id number], [facility] [address] [address] * (ABNORMAL) Basic Metabolic Panel (10/13/2022 12:40 PM CDT) Potassium, P 4.6 3.6 - 5.2 mmol/L 10/13/2022 1:08 PM CDT [facility] Sodium, P 134(L) 135 - 145 mmol/L 10/13/2022 1:08 PM CDT [facility] Chloride, P 102 98 - 107 mmol/L 10/13/2022 1:08 PM CDT [facility] Bicarbonate, P 23 22 - 29 mmol/L 10/13/2022 1:08 PM CDT [facility] Anion Gap, P 9 7 - 15 10/13/2022 1:08 PM CDT [facility] BUN (Blood Urea Nitrogen), P 17 8 - 24 mg/dL 10/13/2022 1:08 PM CDT [facility] Creatinine 1.02 0.74 - 1.35 mg/dL 10/13/2022 1:08 PM CDT [facility] Estimated GFR (eGFR) 76 >=60 mL/min/BSA 10/13/2022 1:08 PM CDT [facility] Comment: Estimated GFR calculated using the 2020 CKD_EPI creatinine equation. Calcium, Total, P 8.9 8.8 - 10.2 mg/dL 10/13/2022 1:08 PM CDT [facility] Glucose, P 109 70 - 140 mg/dL 10/13/2022 1:08 PM CDT [facility] Blood (Blood, Venous) 10/13/2022 12:40 PM CDT 10/13/2022 12:46 PM CDT Ivone Blunt M.D. LAB BLOOD ADD- ON [facility] [address] [place] [address], [place] STMA [facility] [place][note 2] [address] [place] [address] from Last 3 Months or Most Recently Relevant to Health Maintenance Additional Health Concerns Infection Onset Date Last Indicated Protective Environment 09/20/2022 Advance Directives For more information, please contact: [phone] * Full Code (Latest Code Status on File) Date Activated Date Inactivated Comments 01/06/2022 5:12 PM 01/09/2022 4:47 PM Question Answer Comments Full Code: Discussed * Full Code Date Activated Date Inactivated Comments 06/28/2019 12:14 PM 06/29/2019 2:37 PM Question Answer Comments Full Code: Discussed Care Teams Load Tester Relationship Specialty Start Date End Date Elsewhere, Pcp PCP - General Occupational Health And Safety Adviser 06/27/19
--- OUTSIDE RECORDS SUMMARY | 2023-11-10 09:20 | XMS_ITS | Encounter Summary ---
Author Organization [facility] Address [address] [place] [address] Care Team Providers Care Atlassian Administrator Name Role Phone Elsewhere, Pcp Primary Care Provider Unavailabl e Reason for Referral * Outpatient (Routine) - Authorized Specialty Diagnoses / Procedures Referred By Contac t Referred To Contact Cardiovascular Disease Ron Santana M.D., Ph.D. [address] [place] [phone] [facility] Referral ID Status Reason Start Date Expiration Date V isits Requested Visits Authorized [id number] Authorized 11/09/2023 05/10/2025 1 1 * MRI/CAT/PET Scan (Routine) - Authorized Specialty Diagnoses / Procedures Referred By Contac t Referred To Contact Radiology Diagnoses Atrial Fibrillation Longstanding Persistent (HCC) Procedures CT Cardiac Pulmonary Veins with IV Ron Santana M.D., Ph.D. [address] [place] [phone] [facility] Referral ID Status Reason Start Date Expiration Date V isits Requested Visits Authorized [id number] Authorized 11/09/2023 11/08/2024 1 1 * Cardiovascular-Diagnostic (Routine) - Authorized Specialty Diagnoses / Procedures Referred By Contac t Referred To Contact Diagnoses Atrial Fibrillation Longstanding Persistent (HCC) Procedures Echo Transesophageal (MERVAT) Ron Santana M.D., Ph.D. [address] [place] [phone] [facility] Referral ID Status Reason Start Date Expiration Date V isits Requested Visits Authorized [id number] Authorized 11/09/2023 11/08/2024 1 1 * Outpatient (Routine) - Authorized Specialty Diagnoses / Procedures Referred By Contac t Referred To Contact Diagnoses Atrial Fibrillation Longstanding Persistent (HCC) Procedures ECG Heart rhythm monitor (Holter) Ron Santana M.D., Ph.D. [address] [place] [phone] [facility] Referral ID Status Reason Start Date Expiration Date V isits Requested Visits Authorized [id number] Authorized 11/09/2023 11/08/2024 1 1 * Cardiovascular-Diagnostic (Routine) - Authorized Specialty Diagnoses / Procedures Referred By Contac t Referred To Contact Diagnoses Atrial Fibrillation Longstanding Persistent (HCC) Procedures Echo Transthoracic (TTE) Ron Santana M.D., Ph.D. [address] [place] [phone] [facility] Referral ID Status Reason Start Date Expiration Date V isits Requested Visits Authorized [id number] Authorized 11/09/2023 11/08/2024 1 1 * Outpatient (Routine) - Authorized Specialty Diagnoses / Procedures Referred By Contac t Referred To Contact Diagnoses Atrial Fibrillation Longstanding Persistent (HCC) Procedures ECG 12 Lead Ron Santana M.D., Ph.D. [address] [place] [phone] [facility] Referral ID Status Reason Start Date Expiration Date V isits Requested Visits Authorized [id number] Authorized 11/09/2023 11/08/2024 1 1 Encounter Details Date Type Department Care Team (Latest Contact Info) Description 11/08/2023 Clinical Communication Department of Cardiovascular Medicine in [place], [place] [address] [place] [address] Vee Jalloh R.N. [address] [place] [address] Social History Tobacco Use Types Packs/Day Years [...] week 06/30/2021 How often do you attend evangelical or moravian serv ices? Never 06/30/2021 Do you belong to any clubs o r organizations such as evangelical groups, unions, fraternal or athletic groups, or [...] and heating? Not hard at all 06/30/2021 [facility] - Occupational Stress [...] place to sleep or slept in a fdc (including now)? No 06/30/2021 Depression Answer Date [...] Sex Assigned at Male 06/30/2021 12:19 PM POLICE OR PATROL PARK OFFICER Gender Identity Male 06/30/2021 12:19 PM POLICE OR PATROL PARK OFFICER Sexual Orientation Straight 06/30/2021 12 :19 PM POLICE OR PATROL PARK OFFICER documented as of this encounter Miscellaneous Notes * Telephone Encounter - Vee Jalloh R.N. - 11/08/2023 1:07 PM CDT Contact Chad Jensen regarding the scheduling of their PVI ablation. Mr. Jensen was referred byDr Santana for this procedure. He had virtual visit with Dr Santana 10/06/2023 and 08/14/2023, please see his notes for details of those visits.[id number] score of 4 for age over 75,HTN, CAD.He had PVI ablation January 2022. He had [employer] 2019 Pre-procedure appointment: Pre-procedure testing ordered: CBC,CMP,TSH,type and screen,24 hour holter, TTE,MERVAT,CT PV, ECG and Hrs provider visit before MERVAT Pre-procedure testing completed: labs 10/07/2023 GFR 77,OSF ESH 12/17/2022 17.9,echo 02/17/2023 EF 65%,ECG 10/13/2022 shows AF Case urgency: Elective Procedure date: 01/16/2024 Procedure: PFA/PVI redo ablation for Atrial Fibrillation with Dr. Santana Transesophageal echocardiogram (MERVAT): Prior to your ablation we will be completing a transesophageal echocardiogram (MERVAT) as part of yourpre-procedural testing. For this procedure, please follow the following instructions: -You must fast prior to this procedure. Please stop eating solid foods 8 hours prior to your arrival time. You may continue clear liquids until 2 hours prior to your arrival time. -You will receive sedation for your procedure, so an adult local company refrigerated truck driver and supervision is required for 24 hours after the procedure. Please ensure you have someone present with you the day of your test. Calling in for your report time: The night before the procedure, please call the [facility] Service Line ([phone]) or the [facility] Backup Line ([phone]) between 7pm and midnight to find out what time to arrive. This automated phone line will have you type in your [facility] Number [phone] followed by # and birthdate (format of xx/xx/xxxx#) to determine your arrival time. On the day of your procedure: Check into [facility], [facility] 4th Floor (east elevators) at the [facility] 4D desk. You do not need to check into the Admissions Desk prior. Fasting instructions: You must fast prior to this procedure. Please stop eating solid foods 8 hours prior to your arrivaltime. You may continue clear liquids until 2 hours prior to your arrival time. For medication management, please complete as follows: Anticoagulation instructions: Xarelto: You can continue your rivaroxaban (Xarelto) as prescribed. We do not stop the blood thinners for our procedure Cardiac medications: Please continue taking the Amiodarone but hold the Metoprolol and Lisinopril the night before the ablation 01/14 and am of the ablation 01/16/2024- can continue all other prescription cardiac medications All other medications: Continue taking all other medications as prescribed. On the morning of your procedure, take only your prescription medications and skip any supplements that are not prescribed by a medical provider. If your medications change prior to the procedure, please call or send a portal message to re-review medication instructions. CPAP/BIPAP INSTRUCTIONS Please bring your CPAP or BiPAP machine with you to your procedure if you currently use one. It maybe used during the procedure or as you recover. Discharge Plan For this procedure, there is a possibility that you will be dismissed the same day. In this case, you will need to either live within 100 miles of [place], [place] or spend the night in [place], [place] post procedure. If you live within 100 miles and live greater than 30 minutes outside of [place], [place]); it is highly recommended that you spend the night in [place], [place]. -If you experience any complications or have questions post procedure overnight, please call the [facility] Management Professor at: [phone] and ask for [facility]. They will connect you to the on-call provider to assist you further. -You will receive sedation for your procedure, so an adult local company refrigerated truck driver and supervision is required for 24 hours after the procedure. Please ensure you have someone present with you the day of your procedure. -Please note: If you experience any post-operative complications and/or your procedure is late in the day, you may spend the night in the hospital and if well, be dismissed the next day. Activity Restrictions Due to being given sedation, you will not be able to drive yourself for 24 hours post procedure. You will be on lifting restrictions after the procedure. Remember-- no lifting, pushing, or pulling anything over 5 pounds for 7-10 days after the ablation. You may shower after 48 hours, but there is no soaking of your access sites for 7-10 days in any body of water (I.e. bath tub, hot tub, swimming pool, etc.). Due to being given sedation, you will not be able to drive yourself for 24 hours post procedure. You will be on lifting restrictions after the procedure. Remember-- no lifting, pushing, or pulling anything over 5 pounds for 7-10 days after the ablation. You may shower after 48 hours, but there is no soaking of your access sites for 7-10 days in any body of water (I.e. bath tub, hot tub, swimming pool, etc.). One of the most common things we see post ablation is recurrence of your arrhythmia. This can happen in the first 3 months post ablation as the scars are not fully formed and the heart is still quiteirritable from the ablation itself. If you have recurrence that last over 48 hours with rates 60-120 beats per minute with minimal symptoms such as shortness of breath with activity or increased fatigue then you should reach out to us to let us know so we can review the plan with the doctor who didyour ablation. If you have recurrence with rates over 130-150 beats per minute with symptoms of chest pain, shortness of breath or feeling like you might pass out this would be considered more emergent and you should present to nearest ED for immediate evaluation and treatment and then let us know as well as get records faxed to us at [phone]. Another most common thing that can occur post ablation in the first couple of weeks is pericardial chest pain or pericarditis. This is a chest discomfort mostly noted when taking a deep breath or preventing you from taking a deep breath or when sitting up can be more noticeable. This is easily treated with a prescription medication called Colchicine or NSAID such as Ibuprofen. If you experience this type of discomfort please reach out to us so we can review with MD that did the ablation if medication is needed It is not uncommon to note a small lump or knot at the catheter insertion sites post ablation. Thisoccurs when blood seeps around the needle at insertion of the catheters. This should go away with time as the body breaks that down. If the area would get bigger, feel very tight and more painful andwhen you palpate the area it is rock hard this may indicate that you are bleeding from the insertion sites and need to apply direct pressure to the area and have someone drive you to the nearest Emergency Department for immediate evaluation. Do not drive yourself. This is not commonly seen but can occur the area is strained during that first 7-10 days. Since our procedures are done on anticoagulation if most cases you may see extensive bruising around the groin, upper leg and lower abdomen. As long as the bruised areas are soft to touch and turning the from dark purple to light green and yellow the bruising is healing and with time will go away. If the bruising is hard to touch or extremelypainful again you should seek immediate evaluation at nearest Emergency department. Post ablation you may feel a little rough that first couple of days so best to not do a lot of physical activities but by 7-10 days you should be able to return to your previous activities. We ask that you not lift, push or pull more than 5 pounds that first 7-10 day to avoid straining the groin sites to cause them to start to bleed and you can shower but we do not want you to soak in a tub or swim that first 7-10 day or until the groin sites have completely heated to avoid infection. If you have ablation for Atrial fibrillation you will be on uninterrupted anticoagulation that first 3 months and they will determine terminologist anticoagulation at your follow up visit. If you are discharged on anticoagulation you should follow the recommendations in your discharge summary and After visit form. We ask that you follow up with your primary care provider 7-10 days post ablation to inspect the groin sites and update them on your current state and we will follow up in most cases around 3 months post ablation. You can choose to follow up with local EP or Cardiology as well and testing needed would be at their discretion. The [facility] Team is happy to address any current rhythm issues but all other cares or concerns should be directed to your local primary care team. Contact information: -If you have any further questions prior to your procedure, please contact the [facility] Rhythm Services Nurse Line at [phone] (available M-F 8 am to 5 pm POLICE OR PATROL PARK OFFICER). -If you have any concerns or questions regarding your schedule, please contact the scheduling team at [phone]. -If you have any concerns or questions about your insurance or procedure coverage, please contact the business office at [phone], option 1. [facility] Specific Instructions: -We encourage you to check [email or web address] for more information onthese instructions including visitor policies. The patient verbalized understanding and agreement with instructions. All questions were answered. documented in this encounter Plan of Treatment Upcoming Encounters Date Type Department Care Team (Latest Contact Info) Description 01/10/2024 7:45 AM CDT Clinical Communication Virtual Review in [place], [place] 200 [place] [address] 01/12/2024 9:40 AM CDT Ancillary Procedure Department of Cardiovascular Medicine in [address] [phone] Ron Santana M.D., Ph.D. [address] [place] [phone] 01/12/2024 10:00 AM CDT Appointment Department of Cardiovascular Diseases in [address] [address] Ron Santana M.D., Ph.D. [address] [place] [phone] 01/12/2024 10:30 AM CDT Appointment Department of Laboratory Medicine and Pathology, [facility] in [place], [place] [address] [place] [phone] Ron Santana M.D., Ph.D. [address] [place] [phone] 01/12/2024 2:00 PM CDT Appointment Department of Radiology, [facility] in [place], [place] [address] [place] [phone] Ron Santana M.D., Ph.D. [address] [place] [phone] 01/13/2024 8:00 AM CDT Office Visit Department of Cardiovascular Medicine in [place], [place] [address] [place] [phone] Marilu Castaneda P.A.-C., M.S. [address] [place] [phone] 01/13/2024 10:30 AM CDT Appointment Department of Cardiovascular Diseases in [place], [place] [address] [place] [phone] Ron Santana M.D., Ph.D. [address] [place] [phone] 01/16/2024 12:25 PM CDT Hospital Encounter Division of Cardiovascular Diseases in [place] [phone] [place] [phone] Ron Santana M.D., Ph.D. [address] [place] [phone] Atrial Fibrillation Longstanding Persistent (HCC) 01/16/2024 12:25 PM CDT - 01/16/2024 4:35 PM CDT Surgery Division of Cardiovascular Diseases in [place], [place] [address] [place] [address] Ron Santana M.D., Ph.D. [address] [place] [address] PULSED FIELD ABLATION Scheduled Orders Name Type Priority Associated Diagnoses Order Schedule ECG 12 Lead ECG Routine Atrial Fibrillation Longstanding Persistent (HCC) Expected: 01/12/2024, Expires: 11/07/2024 Echo Transthoracic (TTE) Echocardiography Routine Atrial Fibrillation Longstanding Persistent (HCC) Expected: 01/13/2024, Expires: 11/07/2024 CBC without Differential Lab Routine Atrial Fibrillation Longstanding Persistent (HCC) Expected: 01/12/2024, Expires: 11/07/2024 Comprehensive Metabolic Panel Lab Routine Atrial Fibrillation Longstanding Persistent (HCC) Expected: 01/12/2024, Expires: 11/07/2024 ECG Heart rhythm monitor (Holter) Cardiac Services Routine Atrial Fibrillation Longstanding Persistent (HCC) 1 Occurrences starting 11/09/2023 until 02/08/2025 Echo Transesophageal (MERVAT) Echocardiography Routine Atrial Fibrillation Longstanding Persistent (HCC) Expected: 01/13/2024, Expires: 11/07/2024 CT Cardiac Pulmonary Veins with IV Imaging RAD - Routine (most inpatients and all outpatients) Atrial Fibrillation Longstanding Persistent (HCC) Expected: 01/12/2024, Expires: 11/07/2024 Type and Screen (with Reflex Antibody ID) Lab Routine Atrial Fibrillation Longstanding Persistent (HCC) Expected: 01/12/2024, Expires: 11/07/2024 Thyroid Function [facility] Routine Atrial Fibrillation Longstanding Persistent (HCC) Expected: 01/12/2024, Expires: 11/07/2024 Scheduled Referrals Name Type Priority Associated Diagnoses Order Schedule Cardiovascular Disease office visit (clinic) Outpatient Referral Routine Expect ed: 01/13/2024, Expires: 11/07/2024 documented as of this encounter Visit Diagnoses Diagnosis Atrial Fibrillation Longstanding Persistent (HCC)- Primary Atrial Fibrillation Longstanding Persistent (HCC)- Primary Atrial Fibrillation Longstanding Persistent (HCC) documented in this encounter Additional Health Concerns Infection Onset Date Last Indicated Resolved Time Protective Environment 09/20/2022 09/20/2022 Assessment Noted Time PHQ-9 Depression Total Score: 6 07/17/19 20 10:26 AM POLICE OR PATROL PARK OFFICER documented as of this encounter Care Teams Atlassian Administrator Relationship Specialty Start Date End Date Elsewhere, Pcp PCP - General Boilers And Pressure Vessels Inspector 06/27/19 documented as of this encounter
--- OUTSIDE RECORDS SUMMARY | 2023-11-10 09:20 | XMS_ITS | Encounter Summary ---
Author Organization [facility] Address [address] [place] [address] Care Team Providers Care Electronic Controls Repairer Supervisor Name Role Phone Elsewhere, Pcp Primary Care Provider Unavailabl e Reason for Visit * Outpatient (Routine) - Closed Specialty Diagnoses / Procedures Referred By Oliverio t Referred To Contact Cardiovascular Disease Ron Santana M.D., Ph.D. [address] [place] [phone] [facility] Referral ID Status Reason Start Date Expiration Date Visits Re quested Visits Authorized [id number] Closed 10/06/2023 04/06/2025 1 1 Encounter Details Date Type Department Care Team (Latest Contact Info) Description 10/06/2023 4:30 PM CDT Virtual Visit Department of Cardiovascular Medicine in [place], [place] [address] [place] [phone] Ron Santana M.D., Ph.D. [address] [place] [phone] Atrial Fibrillation Unspecified (HCC) (Primary Dx) Social History Tobacco Use Types Packs/Day Years [...] week 06/30/2021 How often do you attend religion or jain serv ices? Never 06/30/2021 Do you belong to any clubs o r organizations such as religion groups, unions, fraternal or athletic groups, or [...] and heating? Not hard at all 06/30/2021 [facility] - Occupational [...] money to buy more. Never true 06/30/19 Within the past 12 months, t he [...] place to sleep or slept in a residential (including now)? No 06/30/2021 Depression Answer Date [...] Sex Assigned at Male 06/30/2021 12:19 PM AIRLINE CAPTAIN Gender Identity Male 06/30/2021 12:19 PM AIRLINE CAPTAIN Sexual Orientation Straight 06/30/2021 12 :19 PM AIRLINE CAPTAIN documented as of this encounter Progress Notes * Ron Santana M.D., Ph.D. - 10/06/2023 4:30 PM CDT ASSESSMENT / PLAN Received a message via e-mail today to visit with Mr. Jensen. I called him this afternoon at [phone]. Mr. Jensen indicated that he has been doing well on amiodarone with regard to his heart rhythm. He has had no symptomatic episodes of atrial fibrillation over the past year. He has been visiting withDr. 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 Jensen indicated that he wishes to increase his dose of Calquence for CLL. Mr. Jensen indicated that a higher dose of Calquence may be associated with an increased tendency to experience atrial fibrillation. I advised Mr. Jensen that, given that he has been free of symptomatic episodes of atrial fibrillation for the past year on low-dose amiodarone, it would be reasonable for him to increase his dose of Calquence from the standpoint of his heart rhythm. He plans to visit with Dr. Hurtado in near future to discuss his Calquence dosing further. He continues Xarelto for stroke prevention and metoprolol for rate control. Mr. Jensen and I also discussed the fact that I submitted a request on August 14, 2023, via [employer] for Mr. Jensen to be added to my waiting list for scheduling of catheter ablation of atrial fibrillation. Mr. Jensen indicated thathe has had no recent episodes of loss of consciousness. Ron Santana M.D., Ph.D. CT CT Job ID: [id number]/mac documented in this encounter Plan of Treatment Upcoming Encounters Date Type Department Care Team (Latest Contact Info) Description 01/10/2024 7:45 AM CDT Clinical Communication Virtual Review in [place], [place] [address] [place] [address] 01/12/2024 9:40 AM CDT Ancillary Procedure Department of Cardiovascular Medicine in [address] [phone] Ron Santana M.D., Ph.D. [address] [place] [phone] 01/12/2024 10:00 AM CDT Appointment Department of Cardiovascular Diseases in [place], [place] [address] [place] [phone] Ron Santana M.D., Ph.D. [address] [place] [phone] 01/12/2024 10:30 AM CDT Appointment Department of Laboratory Medicine and Pathology, [facility] in [place], [place] [address] [place] [address] Ron Santana M.D., Ph.D. [address] [place] [phone] 01/12/2024 2:00 PM CDT Appointment Department of Radiology, [facility] in [place], [place] [address] [place] [phone] Ron Santana M.D., Ph.D. [address] [place] [phone] 01/13/2024 8:00 AM CDT Office Visit Department of Cardiovascular Medicine in [place], [place] [address] [place] [address] Marilu Castaneda P.A.-Nikki., M.S. [address] [place] [phone] 01/13/2024 10:30 AM CDT Appointment Department of Cardiovascular Diseases in [place], [place] [address] [place] [phone] Ron Santana M.D., Ph.D. [address] [place] [phone] 01/16/2024 12:25 PM CDT Hospital Encounter Division of Cardiovascular Diseases in [address] [phone] Ron Santana M.D., Ph.D. [address] [place] [phone] Atrial Fibrillation Longstanding Persistent (HCC) 01/16/2024 12:25 PM CDT - 01/16/2024 4:35 PM CDT Surgery Division of Cardiovascular Diseases in [address] [phone] oRn Santana M.D., Ph.D. [address] [place] [phone] PULSED FIELD ABLATION documented as of this encounter Visit Diagnoses Diagnosis Atrial Fibrillation Unspecified (HCC)- Primary Atrial Fibrillation Longstanding Persistent (HCC)- Primary Atrial Fibrillation Longstanding Persistent (HCC) documented in this encounter Additional Health Concerns Infection Onset Date Last Indicated Resolved Time Protective Environment 09/20/2022 09/20/2022 Assessment Noted Time PHQ-9 Depression Total Score: 6 07/17/19 20 10:26 AM AIRLINE CAPTAIN documented as of this encounter Care Teams Electronic Controls Repairer Supervisor Relationship Specialty Start Date End Date Elsewhere, Pcp PCP - General Content Creation Manager 06/27/19 documented as of this encounter
--- OUTSIDE RECORDS SUMMARY | 2023-11-10 09:20 | XMS_ITS | Encounter Summary ---
Author Organization [facility] Address [address] [place] [address] Care Team Providers Care County Program Technician Name Role Phone Elsewhere, Pcp Primary Care Provider Unavailabl e Reason for Visit * Reason Onset Date Comments Med Question 10/06/2023 Calquence dosage / ablation list Encounter Details Date Type Department Care Team (Latest Contact Info) Description 10/06/2023 Clinical Communication Department of Cardiovascular Medicine in [place], [place] [address] [place] [phone] Ron Santana M.D., Ph.D. [address] [place] [address] Med Question (Calquence dosage / ablation list) Social History Tobacco Use Types Packs/Day Years [...] week 06/30/2021 How often do you attend congregational or episcopal serv ices? Never 06/30/2021 Do you belong to any clubs o r organizations such as congregational groups, unions, fraternal or athletic groups, or [...] and heating? Not hard at all 06/30/2021 [facility] of Occupat ional Health - Occupational Stress [...] Sex Assigned at Male 06/30/2021 12:19 PM STATION ENGINEER Gender Identity Male 06/30/2021 12:19 PM STATION ENGINEER Sexual Orientation Straight 06/30/2021 12 :19 PM STATION ENGINEER documented as of this encounter Miscellaneous Notes * Telephone Encounter - Yoon Bui M.S.Crispin, R.N. - 10/11/2023 1:00 PM CDT Images from the original note were not included. Correspondence from Dr. Santana on 10/06/2023: * Telephone Encounter - Magi Vance R.N. - 10/06/2023 2:46 PM CDT Sent a message for EP charge to address this once Dr. Santana is done with his EP case. 10/06/23. documented in this encounter Plan of Treatment Upcoming Encounters Date Type Department Care Team (Latest Contact Info) Description 01/10/2024 7:45 AM CDT Clinical Communication Virtual Review in [address] [phone] 01/12/2024 9:40 AM CDT Ancillary Procedure Department of Cardiovascular Medicine in [address] [phone] Ron Santana M.D., Ph.D. [address] [place] [phone] 01/12/2024 10:00 AM CDT Appointment Department of Cardiovascular Diseases in [address] [phone] Ron Santana M.D., Ph.D. [address] [place] [phone] 01/12/2024 10:30 AM CDT Appointment Department of Laboratory Medicine and Pathology, [facility] in [address] [phone] Ron Santana M.D., Ph.D. [address] [place] [phone] 01/12/2024 2:00 PM CDT Appointment Department of Radiology, [facility] in [address] [phone] Ron Santana M.D., Ph.D. [address] [place] [phone] 01/13/2024 8:00 AM CDT Office Visit Department of Cardiovascular Medicine in [place], [place] [address] [place] [phone] Marilu Castaneda P.A.-C., M.S. [address] [place] [phone] 01/13/2024 10:30 AM CDT Appointment Department of Cardiovascular Diseases in [place], [place] [address] [place] [phone] Ron Santana M.D., Ph.D. [address] [place] [phone] 01/16/2024 12:25 PM CDT Hospital Encounter Division of Cardiovascular Diseases in [address] [phone] Ron Santana M.D., Ph.D. [address] [place] [phone] Atrial Fibrillation Longstanding Persistent (HCC) 01/16/2024 12:25 PM CDT - 01/16/2024 4:35 PM CDT Surgery Division of Cardiovascular Diseases in [address] [phone] Ron Santana M.D., Ph.D. [address] [place] [phone] PULSED FIELD ABLATION documented as of this encounter Visit Diagnoses Not on filedocumented in this encounter Additional Health Concerns Infection Onset Date Last Indicated Resolved Time Protective Environment 09/20/2022 09/20/2022 Assessment Noted Time PHQ-9 Depression Total Score: 6 07/17/19 20 10:26 AM STATION ENGINEER documented as of this encounter Care Teams County Program Technician Relationship Specialty Start Date End Date Elsewhere, Pcp PCP - General Electrification Adviser 06/27/19 documented as of this encounter
--- OUTSIDE RECORDS SUMMARY | 2023-11-10 09:20 | XMS_ITS | Encounter Summary ---
Author Organization [facility] Address [address] [place] [address] Care Team Providers Care Software Test Manager Name Role Phone Elsewhere, Pcp Primary Care Provider Unavailabl e Encounter Details Date Type Department Care Team (Latest Contact Info) Description 09/09/2023 9:25 AM CDT - 09/09/2023 11:59 PM CDT Hospital Encounter Department of Radiology in [address] [phone] Birdie Hurtado M.D. [address] [place] [phone] Malignant Neoplasm Of Disseminated (HCC); Malignant Neoplasm Of Lip Squamous Cell Discharge Disposition: Home or Self Care Social History Tobacco Use Types Packs/Day Years [...] week 06/30/2021 How often do you attend mandaen or zoroastrian serv ices? Never 06/30/2021 Do you belong to any clubs o r organizations such as mandaen groups, unions, fraternal or athletic groups, or [...] and heating? Not hard at all 06/30/2021 [facility] of Occupat ional Health - Occupational Stress [...] place to sleep or slept in a alf (including now)? No 06/30/2021 Depression Answer Date [...] Sex Assigned at Male 06/30/2021 12:19 PM GARDE MANGER Gender Identity Male 06/30/2021 12:19 PM GARDE MANGER Sexual Orientation Straight 06/30/2021 12 :19 PM GARDE MANGER documented as of this encounter Medications at Time of Discharge Medication Sig Dispensed Refills Start Date End Date ALPRAZolam (XANAX) 0.25 mg tablet Take 0.125 mg by mouth as needed for anxiety. 08/16/2018 amiodarone (PACERONE) 200 mg tablet Take 0.5 tablets (100 mg total) by mouth daily. 45 tablet 3 11/24/2022 11/24/2023 calcium carbonate (calcium carbonate) 1000 mg (400 mg calcium) chewable tablet Chew 1 tablet daily. Calquence, acalabrutinib mal, 100 mg tablet Take 100 mg by mouth. 10/06/2022 famotidine (PEPCID) 20 mg tablet Take 20 mg by mouth daily. ferrous sulfate 325 mg (65 mg iron) DR tablet Take 325 mg by mouth. 12/23/2022 lisinopriL (PRINIVIL,ZESTRIL) 10 mg tablet Take 1 tablet (10 mg total) by mouth 2 (two) times a day. 270 tablet 3 02/23/2023 magnesium chloride (Slow-Mag) 71.[address] tablet Take 1 tablet (71.5 mg total) by mouth daily. 01/09/2022 metoprolol succinate (TOPROL-XL) 25 mg 24 hr tablet 04/14/2023 metoprolol tartrate (LOPRESSOR) 25 mg tablet Take 1 tablet (25 mg total) by mouth 2 (two) times a day. 180 tablet 3 04/13/2023 omeprazole (PriLOSEC) [address] capsule Take 40 mg by mouth. 12/14/2022 oxyCODONE (ROXICODONE) 5 mg immediate release tabletIndications:Chroni c Pain/Nonacute Pain Take 1-2 tablets (5-10 mg total) by mouth every 4 (four) hours as needed for moderate pain or score 4-6 of 10 Indication: Chronic Pain/Nonacute Pain. 30 tablet 06/01/2023 rivaroxaban (Xarelto) 20 mg tablet Take 1 tablet (20 mg total) by mouth daily with dinner. 90 tablet 3 02/23/2023 tamsulosin (FLOMAX) 0.4 mg 24 hr capsule 0.4 mg daily. 01/14/2022 atorvastatin (LIPITOR) 20 mg tablet TAKE ONE TABLET BY MOUTH EVERY DAY 90 tablet 3 10/06/2022 10/11/2023 documented as of this encounter Plan of Treatment Upcoming Encounters Date Type Department Care Team (Latest Contact Info) Description 01/10/2024 7:45 AM CDT Clinical Communication Virtual Review in [place], [place] 200 [place] [phone] 01/12/2024 9:40 AM CDT Ancillary Procedure Department of Cardiovascular Medicine in [place], [place] [address] [place] [phone] Ron Santana M.D., Ph.D. [address] [place] [phone] 01/12/2024 10:00 AM CDT Appointment Department of Cardiovascular Diseases in [place], [place] [address] [place] [phone] Ron Santana M.D., Ph.D. [address] [place] [phone] 01/12/2024 10:30 AM CDT Appointment Department of Laboratory Medicine and Pathology, [facility] in [place], [place] [address] [place] [phone] Ron Santana M.D., Ph.D. [address] [place] [phone] 01/12/2024 2:00 PM CDT Appointment Department of Radiology, [facility] in [place], [place] [address] [place] [phone] Ron Santana M.D., Ph.D. [address] [place] [phone] 01/13/2024 8:00 AM CDT Office Visit Department of Cardiovascular Medicine in [place], [place] [address] [place] [phone] Marilu Castaneda P.A.-Nikki., M.S. [address] [place] [phone] 01/13/2024 10:30 AM CDT Appointment Department of Cardiovascular Diseases in [place], [place] [address] [place] [phone] Ron Santana M.D., Ph.D. [address] [place] [phone] 01/16/2024 12:25 PM CDT Hospital Encounter Division of Cardiovascular Diseases in [place], [place] [address] [place] [phone] Ron Santana M.D., Ph.D. [address] [place] [phone] Atrial Fibrillation Longstanding Persistent (HCC) 01/16/2024 12:25 PM CDT - 01/16/2024 4:35 PM CDT Surgery Division of Cardiovascular Diseases in [place], [place] [address] [place] [phone] Ron Santana M.D., Ph.D. 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 Birdie Hurtado M.D. 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
--- OUTSIDE RECORDS SUMMARY | 2023-11-10 09:20 | XMS_ITS ---
Author Organization [facility] Address [address] [place] [address] Care Team Providers Care Log Driver Name Role Phone Unavailable Unavailable Unavailable Surgery Details Not on file Complications Check Surgery Details section. Procedure Estimated Blood Loss Check Surgery Details section. Procedure Findings Check Surgery Details section. Procedure Specimens Taken Check Surgery Details section.
--- OUTSIDE RECORDS SUMMARY | 2023-11-10 09:20 | XMS_ITS | Encounter Summary ---
Author Organization [facility] Address [address] [place] [address] Care Team Providers Care Director Emergency Services Name Role Phone Elsewhere, Pcp Primary Care Provider Unavailabl e Reason for Referral * Outpatient (Routine) - Closed Specialty Diagnoses / Procedures Referred By Oliverio t Referred To Contact Cardiovascular Disease Ron Santana M.D., Ph.D. [address] [place] [phone] [facility] Referral ID Status Reason Start Date Expiration Date Visits Re quested Visits Authorized [id number] Closed 10/06/2023 04/06/2025 1 1 Encounter Details Date Type Department Care Team (Late st Contact Info) Description 10/06/2023 Orders Only Division of Cardiovascular Diseases in [place], [place] [address] [place] [phone] Ron Santana M.D., Ph.D. [address] [place] [phone] Social History Tobacco Use Types Packs/Day Years [...] week 06/30/2021 How often do you attend episcopalian or judaism serv ices? Never 06/30/2021 Do you belong to any clubs o r organizations such as episcopalian groups, unions, fraternal or athletic groups, or [...] and heating? Not hard at all 06/30/2021 [facility] [place] of Occupat ional Health - Occupational Stress [...] place to sleep or slept in a long term (including now)? No 06/30/2021 Depression Answer Date [...] Sex Assigned at Male 06/30/2021 12:19 PM BOX BENDER Gender Identity Male 06/30/2021 12:19 PM BOX BENDER Sexual Orientation Straight 06/30/2021 12 :19 PM BOX BENDER documented as of this encounter Plan of Treatment Upcoming Encounters Date Type Department Care Team (Latest Contact Info) Description 01/10/2024 7:45 AM CDT Clinical Communication Virtual Review in [place], [place] 200 [place] [address] 01/12/2024 9:40 AM CDT Ancillary Procedure Department of Cardiovascular Medicine in [place], [place] [address] [place] [phone] Ron Santana M.D., Ph.D. [address] [place] [phone] 01/12/2024 10:00 AM CDT Appointment Department of Cardiovascular Diseases in [place], [place] [address] [place] [phone] Ron Santana M.D., Ph.D. [address] [place] [phone] 01/12/2024 10:30 AM CDT Appointment Department of Laboratory Medicine and Pathology, [facility] in [place], [place] [address] [place] [phone] Ron Santana M.D., Ph.D. [address] [place] [phone] 01/12/2024 2:00 PM CDT Appointment Department of Radiology, [facility], in [place], [place] [address] [place] [phone] Ron Santana M.D., Ph.D. [address] [place] [phone] 01/13/2024 8:00 AM CDT Office Visit Department of Cardiovascular Medicine in [place], [place] [address] [place] [phone] Marilu Castaneda P.A.-C., M.S. [address] [place] [phone] 01/13/2024 10:30 AM CDT Appointment Department of Cardiovascular Diseases in [address] [phone] Ron Santana M.D., Ph.D. [address] [place] [phone] 01/16/2024 12:25 PM CDT Hospital Encounter Division of Cardiovascular Diseases in [address] [phone] Ron Santana M.D., Ph.D. [address] [place] [phone] Atrial Fibrillation Longstanding Persistent (HCC) 01/16/2024 12:25 PM CDT - 01/16/2024 4:35 PM CDT Surgery Division of Cardiovascular Diseases in [address] [phone] Ron Santana M.D., Ph.D. [address] [place] [phone] PULSED FIELD ABLATION Scheduled Referrals Name Type Priority Associated Diagnoses Order Schedule Cardiovascular Disease office visit (clinic) Outpatient Referral Routine Expect ed: 10/06/2023 (Approximate), Expires: 03/24/2026 documented as of this encounter Visit Diagnoses Not on filedocumented in this encounter Additional Health Concerns Infection Onset Date Last Indicated Resolved Time Protective Environment 09/20/2022 09/20/2022 Assessment Noted Time PHQ-9 Depression Total Score: 6 07/17/19 20 10:26 AM BOX BENDER documented as of this encounter Care Teams Director Emergency Services Relationship Specialty Start Date End Date Elsewhere, Pcp PCP - General Communication Arts Lecturer 06/27/19 documented as of this encounter
--- OUTSIDE RECORDS SUMMARY | 2023-11-10 09:20 | XMS_ITS | Clinical Summary ---
Author Organization [facility] Address [address] [place] [address] Care Team Providers Care Requirements Engineer Name Role Phone Elsewhere, Pcp Primary Care Provider Unavailabl e Source Comments Patient records contain information from all sites at [facility]. For routine questions regarding patient records, call [phone] during business hours, M-F 8:00 AM - 5:00 PM Central Time. Record requests for emergency care only can be directed to [phone] at any time.[facility] Allergies Active Allergy Reactions Criticality Noted Date [...] Essential Primary 09/16/2008 Anxiety Generalized Disorder 09/16/2008 Encounters Date Type Department Care Team Description 11/09/2023 Clinical Communication Department of Cardiovascular Medicine in [place], [place] [address] [place] [address] IrrigationistZelalem M.D. 11/08/2023 Clinical Communication Department of Cardiovascular Medicine in [place], [place] [address] [place] [phone] Vee Jalloh R.N. 10/08/2023 Refill Department of Cardiovascular Diseases in [address] [phone] Flo Nazario M.D. Med Refill 10/06/2023 4:30 PM CDT Virtual Visit Department of Cardiovascular Medicine in [place], [place] [address] [place] [phone] Ron Santana M.D., Ph.D. Atrial Fibrillation Unspecified (HCC) (Primary Dx) 10/06/2023 Orders Only Division of Cardiovascular Diseases in [address] [address] Ron Santana M.D., Ph.D. 10/06/2023 Clinical Communication Department of Cardiovascular Medicine in [address] [address] Ron Santana M.D., Ph.D. Med Question (Calquence dosage / ablation list) 09/09/2023 9:25 AM CDT - 09/09/2023 11:59 PM CDT Hospital Encounter Department of Radiology in [address] [address] Birdie Hurtado M.D. Malignant Neoplasm Of Disseminated (HCC); Malignant Neoplasm Of Lip Squamous Cell Discharge Disposition: Home or Self Care 09/09/2023 7:53 AM CDT - 09/09/2023 9:24 AM CDT Hospital Encounter Department of Radiology in [address] [address] Birdie Hurtado M.D. Malignant Neoplasm Of Disseminated (HCC); Malignant Neoplasm Of Lip Squamous Cell Discharge Disposition: Home or Self Care 09/09/2023 7:53 AM CDT - 09/09/2023 9:24 AM CDT Hospital Encounter Department of Radiology in [address] [address] Birdie Hurtado M.D. Malignant Neoplasm Of Disseminated (HCC); Malignant Neoplasm Of Lip Squamous Cell Discharge Disposition: Home or Self Care 09/09/2023 7:53 AM CDT - 09/09/2023 9:24 AM CDT Hospital Encounter Department of Radiology in [address] [address] Birdie Hurtado M.D. Malignant Neoplasm Of Disseminated (HCC); Malignant Neoplasm Of Lip Squamous Cell Discharge Disposition: Home or Self Care 09/09/2023 Orders Only Department of Oncology in [address] [address] Birdie Hurtado M.D. 09/09/2023 Orders Only Department of Oncology in [address] [address] Birdie Hurtado M.D. Malignant Neoplasm Of Disseminated (HCC) (Primary Dx); Malignant Neoplasm Of Lip Squamous Cell 08/14/2023 Documentation Department of Cardiovascular Medicine in [address] [phone] Ron Santana M.D., Ph.D. 08/14/2023 Orders Only Division of Cardiovascular Diseases in [address] [address] Ron Santana M.D., Ph.D. Atrial Fibrillation Unspecified (HCC) (Primary Dx) from Last 3 Months Immunizations Name Administration Dates Next Due H1N1 All Forms 04/21/2009 HZV (ZOSTAVAX) 10/12/2010 Influenza TIV (IM) 03/09/2018, 7,03/15/2011,2007,03/17/2007,04/09/2006 Influenza, Seasonal, Injectable 03/15/20 11,04/10/2008,03/17/2007,2005 PCV13 12/20/2014 PPSV23 10/12/2010 Td, (Adult) Unspecified 01/19/2006 Tdap 09/11/2012 influenza high dose (65 year s or older) (PF) 02/12/2019,03/09/2016,03/20/2015,2013 influenza vaccine quad (FLUZONE/FLUARIX) (6 months and older)(PF) 03/14/2013 Family History Medical History Relation Name Comments Lymphoma Father Billy Shoemaker Coronary artery disease Mother Richelle Jensen Hypertension Mother Richelle Jensen Relation Name Status Comments Father Billy Shoemaker Mother Richelle Jensen Social History Tobacco Use Types Packs/Day Years [...] week 06/30/2021 How often do you attend islam or faith serv ices? Never 06/30/2021 Do you belong to any clubs o r organizations such as islam groups, unions, fraternal or athletic groups, or [...] and heating? Not hard at all 06/30/2021 [facility] - [...] place to sleep or slept in a snf (including now)? No 06/30/2021 Depression Answer Date [...] Sex Assigned at Male 06/30/2021 12:19 PM IMPREGNATOR AND DRIER HELPER Gender Identity Male 06/30/2021 12:19 PM IMPREGNATOR AND DRIER HELPER Sexual Orientation Straight 06/30/2021 12 :19 PM IMPREGNATOR AND DRIER HELPER Last Filed Vital Signs Vital Sign Reading Time Taken Comments Blood Pressure 168/75 05/03/2023 4:01 PM IMPREGNATOR AND DRIER HELPER Pulse 73 05/03/2023 4:01 PM IMPREGNATOR AND DRIER HELPER Temperature 36.6 ??C (97.9 ??F) 05/03/2023 3:58 PM CS T Respiratory Rate 17 10/13/2022 5:15 PM CDT Oxygen Saturation 98% 05/03/2023 3:58 PM IMPREGNATOR AND DRIER HELPER Room air Inhaled Oxygen Concentration - - Weight 81 kg (178 lb 9.2 oz) 05/03/2023 3:58 PM IMPREGNATOR AND DRIER HELPER Height 179 cm (5' 10.47) 04/02/2022 1:10 PM CDT Body Mass Index 25.28 04/02/2022 1:10 PM CDT Plan of Treatment Upcoming Encounters Date Type Department Care Team (Latest Contact Info) Description 01/10/2024 7:45 AM CDT Clinical Communication Virtual Review in [place], [place] 200 [place] [address] 01/12/2024 9:40 AM CDT Ancillary Procedure Department of Cardiovascular Medicine in [address] [phone] Ron Santana M.D., Ph.D. [address] [place] [phone] 01/12/2024 10:00 AM CDT Appointment Department of Cardiovascular Diseases in [address] [address] Ron Santana M.D., Ph.D. [address] [place] [phone] 01/12/2024 10:30 AM CDT Appointment Department of Laboratory Medicine and Pathology, [facility] in [address] [address] Ron Santana M.D., Ph.D. [address] [place] [phone] 01/12/2024 2:00 PM CDT Appointment Department of Radiology, [facility] in [address] [address] Ron Santana M.D., Ph.D. [address] [place] [phone] 01/13/2024 8:00 AM CDT Office Visit Department of Cardiovascular Medicine in [place], [place] [address] [place] [phone] Marilu Castaneda P.A.-C., M.S. [address] [place] [phone] 01/13/2024 10:30 AM CDT Appointment Department of Cardiovascular Diseases in [address] [phone] Ron Santana M.D., Ph.D. [address] [place] [phone] 01/16/2024 12:25 PM CDT Hospital Encounter Division of Cardiovascular Diseases in [address] [phone] Ron Santana M.D., Ph.D. [address] [place] [phone] Atrial Fibrillation Longstanding Persistent (HCC) 01/16/2024 12:25 PM CDT - 01/16/2024 4:35 PM CDT Surgery Division of Cardiovascular Diseases in [address] [address] Ron Santana M.D., Ph.D. [address] [place] [phone] PULSED FIELD ABLATION Health Maintenance Due Date Last Done Comments Hepatitis C Screening 1945 Zoster Vaccines (1 of 2) 12/07/2010 10/12/2010 DTaP,Tdap,and Td Vaccines (2 - Td or Tdap) 09/11/2022 09/11/2012, 01/19/2006 COVID-19 Vaccine (2022-24 season) 2023 03/21/2023, 03/02/2022, 09/29/2021, Additional history exists Depression Screening (Annual PHQ-2) 06/06/2023 Fall Risk Screen (Annual) 06/06/2023 Office Visit for Blood Pressure Check / Re-check 08/03/2023 05/03/2023 Sodium Level 10/14/2023 10/13/2022, 01/04, 01/09/2022, Additional history exists Potassium Level 10/27/2023 10/26/2022, 10/04, 08/19/2022, Additional history exists Creatinine Level (Kidney Function Test) 05/23/2024 05/23/2023, 10/26/2022, 10/13/2022, Additional history exists Pneumococcal vaccine (65+ years) Completed 12/20/2014, 10/12/2010 Influenza Vaccine Completed 02/14/2023, , 03/25/2021, Additional history exists HPV Vaccines Aged Out No longer eligi ble based on patient's age to complete this topic Medical Devices Implanted Type Area Wire Drawing Machine Tender Device Identifier Shelf Expiration Date Model / Serial / Lot Clp Tania Clip Del Sys Xtr - [id number] Implanted:Qty : 1 on 06/28/2019 by Hernandez Echevarria M.D. at [facility] Mitralclip N/A: Heart Reese 03/21/2020 [id number] / / [id number] Description:Mitral Valve Ocular Lens Ocular Lens Eye [...] WITH EGFR, S/P Routine 05/23/2023 8:43 AM IMPREGNATOR AND DRIER HELPER Malignant Neoplasm Of Salivary Gland (HCC) POTASSIUM, [...] mass consistent with treatedlymphoma. Birdie Hurtado M.D. [facility] [place]ED[place] * Interpretation of Outside CT [...] mass consistent with treatedlymphoma. Birdie Hurtado M.D. [facility] [place]ED[place] * Interpretation of Outside CT [...] patient's reported CLL versus metastatic disease. Birdie Hurtado M.D. [facility] [place]ED[place] * Interpretation of Outside NM [...] M.D. - 09/09/2023 EXAM: INTERPRETATION OF OUTSIDE NM PET SCAN dated 05/12/2023. TECHNIQUE: F-18 Fluorodeoxyglucose [...] parotid masses which are new from 2019 andcontinue to slightly increased in size from 11/29/2022 consistent withmetastatic disease. 2. Markedly FDG avid subcentimeter right postauricular lymph node alsomost consistent with metastatic disease. 3. Mildly FDG avid cervical, thoracic and abdominal lymphadenopathy isconsistent with the patient's history of CLL. A periportal soft tissuemass has significantly decreased in size and FDG avidity from 2019 and isconsistent with treated lymphoma. 4. Development of multiple areas of groundglass attenuation throughoutboth lungs and small pulmonary nodules, largest of which demonstratesmarked FDG avidity. Overall, these findings are indeterminate and mayrepresent additional sites of metastatic disease versus an infectious or inflammatory process. Attention onfollow-up recommended. Birdie Hurtado M.D. IM NM PROCEDURES * CT chest abdomen pelv w con-Outside CT Body (08/30/2023 9:45 AM CDT) 08/30/2023 9:37 AM CDT Narrative IIMS - 08/30/2023 11:39 AM CDT This order has been created and auto-finalized to support the import of outside images. If available, original interpretation can be found on the Media Tab in Chart Review, in Document Viewer, or as an image in [employer]. If a re-interpretation or overread is required please follow defined workflow. ?? Provider Not In System IMG CT PROCEDURES Performing Organization Address [facility] de Phone Number II NA * CT SOFT TISSUE NECK W CON-Outside CT Neuro (08/30/2023 9:40 AM CDT) 08/30/2023 9:37 AM CDT Narrative IIMS - 08/30/2023 11:36 AM CDT This order has been created and auto-finalized to support the import of outside images. If available, original interpretation can be found on the Media Tab in Chart Review, in Document Viewer, or as an image in [employer]. If a re-interpretation or overread is required please follow defined workflow. ?? Provider Not In System IMG CT PROCEDURES Performing Organization Address [facility] de Phone Number II NA * Creatinine with Estimated GFR (05/23/2023 8:43 AM IMPREGNATOR AND DRIER HELPER) Creatinine 1.10 0.74 - 1.35 mg/dL 05/23/2023 9:50 AM IMPREGNATOR AND DRIER HELPER DTL Estimated GFR (eGFR) 69 >=60 mL/min/BSA 05/23/2023 9:50 AM IMPREGNATOR AND DRIER HELPER DTL Comment: Estimated GFR calculated using the 2020 CKD_EPI creatinine equation. Blood (Blood, Venous) 05/23/2023 8:43 AM IMPREGNATOR AND DRIER HELPER 05/23/2023 9:27 AM IMPREGNATOR AND DRIER HELPER Karlie Escoto M.D. LAB BLOOD ADD-ON Performing Organization Address [facility] Co de Phone Number [facility] [address] [place] [address], [facility] DTL [facility] [address] [place] [address] * Potassium (10/26/2022 11:31 AM CDT) Potassium, P 4.4 3.6 - 5.2 mmol/L 10/26/2022 11:56 AM CDT CNFL Blood (Blood, Venous) 10/26/2022 11:31 AM CDT 10/26/2022 11:34 AM CDT Ron Santana M.D., Ph.D. LAB BLOOD AD D-ON Performing Organization Address [facility] Co de Phone Number [facility] [address] [place] [phone], [facility] CNFL [facility] in [address] [address] * (ABNORMAL) Basic Metabolic Panel (10/13/2022 12:40 [...] Ivone Blunt M.D. LAB BLOOD ADD- ON [facility] [address] [place] [address], [place] STMA [facility] [address] [place] [address] from Last 3 Months or Most Recently Relevant to Health Maintenance Additional Health Concerns Infection Onset Date Last Indicated Protective Environment 09/20/2022 3 Advance Directives For more information, please contact: [phone] * Full Code (Latest Code Status on File) Date Activated Date Inactivated Comments 01/06/2022 5:12 PM 01/09/2022 4:47 PM Question Answer Comments Full Code: Discussed * Full Code Date Activated Date Inactivated Comments 06/28/2019 12:14 PM 06/29/2019 2:37 PM Question Answer Comments Full Code: Discussed Care Teams Requirements Engineer Relationship Specialty Start Date End Date Elsewhere, Pcp PCP - General Recycle Driver 06/27/19
--- OUTSIDE RECORDS SUMMARY | 2023-11-10 09:21 | XMS_ITS | Clinical Summary ---
Author Organization [facility] Address [place], [place] [address] Care Team Providers Care Public Health Sanitarian Name Role Phone Nikki Reilly DO Primary Care Provider [phone] Allergies Active Allergy Reactions Criticality Noted Date Comments Ibrutinib Rash High 04/12/2022 Penicillins Hives Medications Medication Sig Dispensed Refills Start Date End Date Status docusate (COLACE) 100 mg capsuleIndications:C hronic constipation Take 1 capsule by mouth 2 times daily if needed for Constipation. 30 capsule 07/04/2019 Active magnesium chloride delayed release tabletIndications:Lo w magnesium level One oral every day 90 tablet 09/11/2019 Active calcium carbonate CHEWABLE (MAALOX QUICK DISSOLVE) 400 mg calcium (1,000 mg) chew Take 1 Tab by mouth. Active famotidine (PEPCID) 20 mg tablet Take 20 mg by mouth. Active atorvastatin (LIPITOR) 20 mg tablet Take 20 mg by mouth once daily. 10/14/2021 Active amiodarone (CORDARONE) 200 mg tablet Take 100 mg by mouth. 11/24/2022 11/24/2023 Active Calquence, acalabrutinib mal, 100 mg tablet Take 100 mg by mouth. 10/06/2022 Active lisinopriL (PRINIVIL; ZESTRIL) 10 mg tablet 10 mg. 06/27/2022 Active metoprolol tartrate (LOPRESSOR) 25 mg tablet Take 1 Tablet (25 mg) by mouth two times daily. 60 Tablet 11 12/23/2022 Active rivaroxaban (XARELTO) 20 mg tabletIndications:Lo ngstanding persistent atrial fibrillation (HC) Take 1 Tablet (20 mg) by mouth once daily with evening meal. 0 12/23/2022 Active ferrous sulfate 325 mg delayed release tabletIndications:Mi crocytic anemia Take 1 Tablet (325 mg) by mouth once daily with a meal. 65 mg three times daily. 90 Tablet 3 12/23/2022 Active ALPRAZolam (XANAX) 0.25 mg tabletIndications:Ag oraphobia with panic attacks TAKE ONE TABLET BY MOUTH EVERY 8 HOURS NEEDED FOR ANXIETY OR PANIC 20 Tablet 07/07/2023 Active fluticasone (50 mcg per actuation) nasal solution (FLONASE)Indications :Bleeding Inhale 2 Sprays to both nostrils once daily. 16 g 07/08/2023 Active levothyroxine (SYNTHROID) 75 mcg tabletIndications:Hy pothyroidism (acquired) TAKE ONE TABLET BY MOUTH ONCE EVERY DAY BEFORE BREAKFAST. 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 During stress test. No recurrence since. Personal history of malignant neoplasm of prosta te 06/28/2019 Overview: 2005 s/p radioactive seeds Personal history of surgery to heart and great vessels, presenting hazards to health 06/28/2019 Mitral valve insufficiency 06/26/2019 Overview: W/ a flail segment of the lateral aspect of P2 with associated severe MR. Rupture of chordae tendineae 06/13/2019 Chronic lymphocytic leukemia 09/12/2018 Malignant melanoma of skin of trunk 11/22/2011 Overview: S/p excision Primary hypertension 09/16/2008 Prostate cancer 09/16/2008 Benign prostatic hyperplasia without urinary obs truction 09/16/2008 Anxiety state, unspecified 09/16/2008 Agoraphobia with panic attack Resolved Problems Problem Noted Date Diagnosed Date Resolved Date Paroxysmal ventricular tachycardia 09/16/2008 03/15/2019 Encounters Date Type Department Care Team Description 09/29/2023 Refill [facility] [address] [place] [address] Nikki Reilly, Refill Request (Tamsulosin) 09/07/2023 Refill [facility] [address] [place] [address] Nikki Reilly, Refill Request (Levothyroxine) 08/30/2023 Orders Only [facility] Scanner 1 scan: (1-Ord) [facility], CT-ST NECK W/ 86CC [place] 370, 08/30/2023 08/30/2023 Orders Only [facility] Scanner 1 scan: (1-Ord) [facility], CT CHEST ABDOMEN PELV W CON, 08/30/2023 08/30/2023 Orders Only [facility] Scanner 1 scan: (1-Ord) [facility], CT SOFT TISSUE NECK W CON , 08/30/2023 from Last 3 Months Immunizations Name Administration Dates Next Due AMB Influenza, IIV3 (Age >=3 years)(Flu Clinic Only) 04/10/2008 Amb Influenza, Inact (High-d ose) (Flu Clinic Only) 03/14/2014 Amb Influenza, Inactivated A IIV4 (Age 65+ Years) Preserv Free 02/28/2020 Influenza A (H1N1), Inactivated 04/21/2009 Influenza Virus, Unspecified 03/09/2018, 02/16/2017,03/15/2011,2007,03/17/2007,04/09/2006 Influenza, High-dose Inactivated 019,03/09/2016,03/20/2015,2013 Influenza, IIV3 (Age >=3 years) 03/15/20 11,04/10/2008,03/17/2007,2005 Influenza, IIV4 03/14/2013 Influenza, Inactivated AIIV4 (Age 65+ Years) Preserv Free 04/02/2022 Influenza, Inactivated IIV3 (Age 65+ Years) Preserv Free 03/09/2018,02/16/2017 Pneumococcal Poly,23-Valent (Pneumovax) 10/12/2010 Pneumococcal conj 13-Valent (Prevnar 13) 12/20/2014 TD, UNSPECIFIED 01/19/2006 Td (Age >=7 Years) 01/19/2006 Tdap 09/11/2012 Zoster (Zostavax-ZVL, live) 10/12/2010 Family History Medical History Relation Name Comments Good Health Brother 2 Cancer Father kai age 2 3 Other Father Hodgkins Heart Disease Mother CHF Hypertension Mother Good Health Sister 2 Relation Name Status Comments Brother 1 Alive Brother 2 Father (Age 23) Hodgkins Mother (Age 84) chf Sister 1 Alive Sister 2 Social History Tobacco Use Types Packs/Day Years Used Date Smoking Tobacco: Never Smokeless Tobacco: Never Tobacco Cessation:Counseling Given: Yes Alcohol Use Standard Drinks/Week Comments Not Currently 0 (1 standard drink = 0.6 oz pur e alcohol) glass of red wine daily PHQ-2 Answer Date Recorded PHQ-2 TOTAL SCORE 2 12/23/2022 Social Connections Answer Date Recorded Frequency of Communication with Friends and Fami ly 0 12/23/2022 Financial Resource Strain Answer Date R ecorded Difficulty of Paying Living Expenses 3 12/23/2022 Difficulty of Paying Living Expenses Not on file 12/23/2022 Food Insecurity Answer Date Recorded Worried About Running Out of Food in the Last Ye ar 1 12/23/2022 Transportation Needs Answer Date Record ed Lack of Transportation (Medical) 1 12/23/2022 Housing Stability Answer Date Recorded Unable to Pay for Housing in the Last Year 1 12/23/2022 Sex and Gender Information Value Date Recorded Sex Assigned at Not on file Gender Identity Not on file Sexual Orientation Not on file Obstetrics History Last Filed Vital Signs Vital Sign Reading Time Taken Comments Blood Pressure 158/84 07/08/2023 11:24 AM AIR EXPORT COORDINATOR Pulse 72 07/08/2023 11:24 AM AIR EXPORT COORDINATOR Temperature 36.9 ??C (98.4 ??F) 04/23/2020 11:[address] Respiratory Rate 16 03/20/2020 2:20 PM CDT Oxygen Saturation 99% 07/08/2023 11:24 AM AIR EXPORT COORDINATOR Inhaled Oxygen Concentration - - Weight 79.8 kg (176 lb) 07/08/2023 11:24 AM AIR EXPORT COORDINATOR Height 175.2 cm (5' 8.98) 12/23/2022 9:23 AM CD T Body Mass Index 26.01 12/23/2022 9:23 AM CDT Plan of Treatment Health Maintenance Due Date Last Done Comments Zoster (shingles) series for age 50+ (1 of 2) 12/07/2010 10/12/2010 Tetanus booster 09/11/2022 09/11/2012, 01/04, 01/19/2006 COVID-19 vaccine series ( season) 2023 03/02/2022, 09/29/2021, 02/17/2021, Additional history exists BMI (ht and wt on same day) for age 18+ 12/24/2023 12/23/2022, 04/23/2020, 07/04/2019, Additional history exists Depression screening for age 12+ 12/24/2023 12/23/2022, 08/18/2018, 08/16/2018, Additional history exists Medicare Wellness for age 65+ 12/24/2023, 03/09/2018, 02/16/2017, Additional history exists Influenza for age 65+ 02/05/2024 04/02/2022 , 02/28/2020, 02/12/2019, Additional history exists Tdap Completed 09/11/2012 Pneumococcal series for age 65+ Completed 5, 10/12/2010 Hepatitis C screening for ag e 18-79 Completed 03/09/2018 Procedures Procedure Name Priority Date/Time Associated Diagnosis Comments SCAN-RADIOLOGY REPORT 08/30/2023 12:00 AM CDT SCAN-CT INTERPRETATION 4 12:00 AM CDT SCAN-CT INTERPRETATION 4 12:00 AM CDT ANTI HCV Routine 03/09/2018 10:39 AM CDT Need for hepatitis C screening test from Last 3 Months or Most Recently Relevant to Health Maintenance Results * SCAN-RADIOLOGY REPORT (08/30/2023 12:00 AM CDT) Anatomical Region Laterality Modality Other Scanner OTHER * SCAN-CT INTERPRETATION (08/30/2023 12:00 AM CDT) Only the most recent of2 resultswithin the time period is included. Anatomical Region Laterality Modality Other Scanner OTHER * ANTI HCV [62924.2] (03/09/2018 10:39 AM CDT) HEPATITIS C ANTIBODY Non-React ir[place] Non-React ir[place]a 03/09/2018 5:05 PM CDT [id number] Comment:Antibodies to HCV no t detected; does not exclude the possibility of exposure to HCV. Blood BLOOD SPECIMEN / Unknown Venipuncture / Unknown 03/09/2018 10:39 AM CDT 03/09/2018 10:39 AM CDT Ron Garcia MD [facility] [address] [place] [address], from Last 3 Months or Most Recently Relevant to Health Maintenance Advance Directives * Full Code (Latest Code Status on File) Date Activated Date Inactivated Comments 11/22/2011 11:07 AM 11/22/2011 3:00 PM * Full Code Date Activated Date Inactivated Comments 11/22/2011 9:03 AM 11/22/2011 11:07 AM Care Teams Public Health Sanitarian Relationship Specialty Start Date End Date Nikki Reilly DO [address] [place] [address] PCP - General Family Practice 12/15/22
--- OUTSIDE RECORDS SUMMARY | 2023-11-10 09:21 | XMS_ITS | Encounter Summary ---
Author Organization [facility] Address [address] [place] [address] Care Team Providers Care Supervisor Mails Name Role Phone Elsewhere, Pcp Primary Care Provider Unavailabl e Encounter Details Date Type Department Care Team (Late st Contact Info) Description 08/14/2023 Documentation Department of Cardiovascular Medicine in [place], [place] [address] [place] [phone] Ron Santana M.D., Ph.D. [address] [place] [address] Social History Tobacco Use Types Packs/Day Years [...] week 06/30/2021 How often do you attend nondenominational or synagogue serv ices? Never 06/30/2021 Do you belong to any clubs o r organizations such as nondenominational groups, unions, fraternal or athletic groups, or [...] and heating? Not hard at all 06/30/2021 [facility] of Occupat ional Health - [...] place to sleep or slept in a [place] health care facility (including now)? No 06/30/2021 Depression Answer Date [...] Sex Assigned at Male 06/30/2021 12:19 PM COMPACTING MACHINE OPERATOR/TENDER Gender Identity Male 06/30/2021 12:19 PM COMPACTING MACHINE OPERATOR/TENDER Sexual Orientation Straight 06/30/2021 12 :19 PM COMPACTING MACHINE OPERATOR/TENDER documented as of this encounter Progress Notes * Ron Santana M.D., Ph.D. - 08/14/2023 11:24 PM CDT I called Mr. Jensen via the [place] paging casey saw operator at [phone]. Mr. Jensen is a 77-year-old gentleman with a history of hypertension, mitral regurgitation, chroniclymphocytic leukemia, atrial fibrillation, and squamous cell carcinoma. He is status post MitraClipplacement in 2019 and catheter ablation for atrial fibrillation in 2020. He started sotalol for recurrent atrial fibrillation in January 2022. He was subsequently transitioned to amiodarone. He is being treated with levothyroxine for elevated TSH in the setting of ongoing treatment with amiodarone. He is also being treated for squamous cell skin cancer for. He was to undergo redo catheter ablationfor atrial fibrillation in June 2023. This was deferred, however, because he was off anticoagulation at that time to facilitate evaluation and treatment of skin cancer. He has since resumed Xarelto. Laboratory studies performed elsewhere in June 2023 showed a normal AST and ALT. TSH on July 06, 2023, was 4.53. He has had no recent episodes of loss of consciousness. ASSESSMENT / PLAN #1 Atrial fibrillation #2 Chronic lymphocytic leukemia #3 Possible sleep apnea #4 Status post MitraClip #5 Severe left atrial enlargement #6 History of hypertension #7 Squamous cell skin cancer Mr. Jensen and I revisited treatment options for his atrial fibrillation. He understandably wishes to be off amiodarone, if possible, to minimize his risk of amiodarone side effects. He has resumed Xarelto. After discussing treatment options including pharmacologic therapy versus redo catheter ablation, Mr. Jensen indicated a preference for tentative scheduling of redo catheter ablation. We discussed ablation options including Farapulse pulsed field ablation. Mr. Jensen indicated a preference for Farapulse pulsed field ablation for his atrial fibrillation. We will make arrangements accordingly. He continues Xarelto for stroke prevention and amiodarone to help minimize recurrent atrial fibrillation. I also submitted a request for Mr. Jensen and I to visit again in approximately 3 months regarding his heart rhythm. Ron Santana M.D., Ph.D. CT CT Job ID: [id number] documented in this encounter Plan of Treatment Upcoming Encounters Date Type Department Care Team (Latest Contact Info) Description 01/10/2024 7:45 AM CDT Clinical Communication Virtual Review in [place], [place] 200 [place] [address] 01/12/2024 9:40 AM CDT Ancillary Procedure Department of Cardiovascular Medicine in [place], [place] [address] [place] [address] Ron Santana M.D., Ph.D. [address] [place] [phone] 01/12/2024 10:00 AM CDT Appointment Department of Cardiovascular Diseases in [place], [place] [address] [place] [address] Ron Santana M.D., Ph.D. [address] [place] [phone] 01/12/2024 10:30 AM CDT Appointment Department of Laboratory Medicine and Pathology, [facility] in [place], [place] [address] [place] [place] [phone] Ron Santana M.D., Ph.D. [address] [place] [phone] 01/12/2024 2:00 PM CDT Appointment Department of Radiology, [facility] in [place], [place] [address] [place] [place] [phone] Ron Santana M.D., Ph.D. [address] [place] [phone] 01/13/2024 8:00 AM CDT Office Visit Department of Cardiovascular Medicine in [place], [place] [address] [place] [place] [phone] Marilu Castaneda P.A.-C., M.S. [address] [place] [phone] 01/13/2024 10:30 AM CDT Appointment Department of Cardiovascular Diseases in [place], [place] [address] [place] [phone] Ron Santana M.D., Ph.D. [address] [place] [phone] 01/16/2024 12:25 PM CDT Hospital Encounter Division of Cardiovascular Diseases in [place], [place] [address] [place] [phone] Ron Santana M.D., Ph.D. [address] [place] [phone] Atrial Fibrillation Longstanding Persistent (HCC) 01/16/2024 12:25 PM CDT - 01/16/2024 4:35 PM CDT Surgery Division of Cardiovascular Diseases in [place], [place] [address] [place] [phone] Ron Santana M.D., Ph.D. [address] [place] [phone] PULSED FIELD ABLATION documented as of this encounter Visit Diagnoses Not on filedocumented in this encounter Additional Health Concerns Infection Onset Date Last Indicated Resolved Time Protective Environment 09/20/2022 09/20/2022 Assessment Noted Time PHQ-9 Depression Total Score: 6 07/17/19 20 10:26 AM COMPACTING MACHINE OPERATOR/TENDER documented as of this encounter Care Teams Supervisor Mails Relationship Specialty Start Date End Date Elsewhere, Pcp PCP - General Fire Management Officer 06/27/19 documented as of this encounter
--- OUTSIDE RECORDS SUMMARY | 2023-11-10 09:21 | XMS_ITS | Encounter Summary ---
Author Organization [facility] Address [address] [place] [address] Care Team Providers Care Dry Yard Worker Name Role Phone Elsewhere, Pcp Primary Care Provider Unavailabl e Encounter Details Date Type Department Care Team (Latest Contact Info) Description 09/09/2023 7:53 AM CDT - 09/09/2023 9:24 AM CDT Hospital Encounter Department of Radiology in [address] [phone] Birdie Hurtado M.D. [address] [place] [phone] Malignant Neoplasm Of Disseminated (HCC); Malignant Neoplasm [...] How often do you attend hindu or adventism serv ices? Never 06/30/2021 Do you belong [...] and heating? Not hard at all 06/30/2021 [facility] of Occupat ional Health - Occupational Stress [...] place to sleep or slept in a longterm (including now)? No 06/30/2021 Depression Answer Date [...] Sex Assigned at Male 06/30/2021 12:19 PM OIL WELL PUMPER Gender Identity Male 06/30/2021 12:19 PM OIL WELL PUMPER Sexual Orientation Straight 06/30/2021 12 :19 PM OIL WELL PUMPER documented as of this encounter Medications at [...] AM CDT Clinical Communication Virtual Review in [place], [place] 200 [place] [phone] 01/12/2024 9:40 AM CDT Ancillary Procedure Department of Cardiovascular Medicine in [place], [place] [address] [place] [phone] Ron Santana M.D., Ph.D. [address] [place] [phone] 01/12/2024 10:00 AM CDT Appointment Department of Cardiovascular Diseases in [place], [place] [address] [place] [phone] Ron Santana M.D., Ph.D. [address] [place] [phone] 01/12/2024 10:30 AM CDT Appointment Department of Laboratory Medicine and Pathology, [facility] in [place], [place] [address] [place] [phone] Ron Santana M.D., Ph.D. [address] [place] [phone] 01/12/2024 2:00 PM CDT Appointment Department of Radiology, [facility] in [place], [place] [address] [place] [phone] Ron Santana M.D., Ph.D. [address] [place] [phone] 01/13/2024 8:00 AM CDT Office Visit Department of Cardiovascular Medicine in [place], [place] [address] [place] [address] Marilu Castaneda P.A.-Nikki., M.S. [address] [place] [phone] 01/13/2024 10:30 AM CDT Appointment Department of Cardiovascular Diseases in [place], [place] [address] [place] [phone] Ron Santana M.D., Ph.D. [address] [place] [phone] 01/16/2024 12:25 PM CDT Hospital Encounter Division of Cardiovascular Diseases in [place], [place] [address] [place] [phone] Ron Santana M.D., Ph.D. [address] [place] [phone] Atrial Fibrillation Longstanding Persistent (HCC) 01/16/2024 12:25 PM CDT - 01/16/2024 4:35 PM CDT Surgery Division of Cardiovascular Diseases in [place], [place] [address] [place] [address] Ron Santana M.D., Ph.D. 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
--- OUTSIDE RECORDS SUMMARY | 2023-11-10 09:21 | XMS_ITS | Encounter Summary ---
Author Organization [facility] Address [address] [place] [address] Care Team Providers Care Die Caster Name Role Phone Elsewhere, Pcp Primary Care Provider Unavailabl e Encounter Details Date Type Department Care Team (Late st Contact Info) Description 08/14/2023 Orders Only Division of Cardiovascular Diseases in [place], [place] [address] [place] [phone] Ron Santana M.D., Ph.D. [address] [place] [phone] Atrial Fibrillation Unspecified (HCC) (Primary Dx) Social [...] week 06/30/2021 How often do you attend jewish or evangelical serv ices? Never 06/30/2021 Do you belong to any clubs o r organizations such as jewish groups, unions, fraternal or athletic groups, or [...] and heating? Not hard at all 06/30/2021 [facility] [place] of Occupat ional Health - Occupational Stress [...] place to sleep or slept in a [facility] (including now)? No 06/30/2021 Depression Answer Date [...] Sex Assigned at Male 06/30/2021 12:19 PM BUSINESS ATTORNEY Gender Identity Male 06/30/2021 12:19 PM BUSINESS ATTORNEY Sexual Orientation Straight 06/30/2021 12 :19 PM BUSINESS ATTORNEY documented as of this encounter Plan of Treatment Upcoming Encounters Date Type Department Care Team (Latest Contact Info) Description 01/10/2024 7:45 AM CDT Clinical Communication Virtual Review in [place], [place] 200 [place] [address] 01/12/2024 9:40 AM CDT Ancillary Procedure Department of Cardiovascular Medicine in [place], [place] [address] [place] [phone] Ron Santana M.D., Ph.D. [address] [place] [phone] 01/12/2024 10:00 AM CDT Appointment Department of Cardiovascular Diseases in [place], [place] [address] [place] [address] Ron Santana M.D., Ph.D. [address] [place] [phone] 01/12/2024 10:30 AM CDT Appointment Department of Laboratory Medicine and Pathology, [facility] in [place], [place] [address] [place] [address] Ron Santana M.D., Ph.D. [address] [place] [phone] 01/12/2024 2:00 PM CDT Appointment Department of Radiology, [facility] in [place], [place] [address] [place] [address] Ron Santana M.D., Ph.D. [address] [place] [phone] 01/13/2024 8:00 AM CDT Office Visit Department of Cardiovascular Medicine in [place], [place] [address] [place] [address] Marilu Castaneda P.A.-C., M.S. [address] [place] [phone] 01/13/2024 10:30 AM CDT Appointment Department of Cardiovascular Diseases in [place], [place] [address] [place] [phone] Ron Santana M.D., Ph.D. [address] [place] [phone] 01/16/2024 12:25 PM CDT Hospital Encounter Division of Cardiovascular Diseases in [place], [place] [address] [place] [phone] Ron Santana M.D., Ph.D. [address] [place] [address] Atrial Fibrillation Longstanding Persistent (HCC) 01/16/2024 12:25 PM CDT - 01/16/2024 4:35 PM CDT Surgery Division of Cardiovascular Diseases in [place], [place] [address] [place] [address] Ron Santana M.D., Ph.D. [address] [place] [address] PULSED FIELD ABLATION documented as of this encounter Visit Diagnoses Diagnosis Atrial Fibrillation Unspecified (HCC)- Primary Atrial Fibrillation Longstanding Persistent (HCC)- Primary Atrial Fibrillation Longstanding Persistent (HCC) documented in this encounter Additional Health Concerns Infection Onset Date Last Indicated Resolved Time Protective Environment 09/20/2022 09/20/2022 Assessment Noted Time PHQ-9 Depression Total Score: 6 07/17/19 20 10:26 AM BUSINESS ATTORNEY documented as of this encounter Care Teams Die Caster Relationship Specialty Start Date End Date Elsewhere, Pcp PCP - General Director Biologics 06/27/19 documented as of this encounter
--- OUTSIDE RECORDS SUMMARY | 2023-11-10 09:21 | XMS_ITS | Encounter Summary ---
Author Organization [facility] Address [address] [place] [address] Care Team Providers Care Installment Account Checker Name Role Phone Elsewhere, Pcp Primary Care Provider Unavailabl e Encounter Details Date Type Department Care Team (Late st Contact Info) Description 09/09/2023 Orders Only Department of Oncology in [employer] [place], [place] [address] [place] [phone] Birdie Hurtado M.D. [address] [place] [phone] Social History Tobacco Use Types Packs/Day Years [...] week 06/30/2021 How often do you attend yarsani or zoroastrian serv ices? Never 06/30/2021 Do you belong to any clubs o r organizations such as yarsani groups, unions, fraternal or athletic groups, or [...] and heating? Not hard at all 06/30/2021 [facility] of Occupat ional Health - Occupational [...] Sex Assigned at Male 06/30/2021 12:19 PM MATHEMATICAL STATISTICIAN Gender Identity Male 06/30/2021 12:19 PM MATHEMATICAL STATISTICIAN Sexual Orientation Straight 06/30/2021 12 :19 PM MATHEMATICAL STATISTICIAN documented as of this encounter Plan of Treatment Upcoming Encounters Date Type Department Care Team (Latest Contact Info) Description 01/10/2024 7:45 AM CDT Clinical Communication Virtual Review in [place], [place] 200 [place] [address] 01/12/2024 9:40 AM CDT Ancillary Procedure Department of Cardiovascular Medicine in [address] [phone] Ron Santana M.D., Ph.D. [address] [place] [phone] 01/12/2024 10:00 AM CDT Appointment Department of Cardiovascular Diseases in [place], [place] [address] [place] [phone] Ron Santana M.D., Ph.D. [address] [place] [phone] 01/12/2024 10:30 AM CDT Appointment Department of Laboratory Medicine and Pathology, [facility] in [place], [place] [address] [place] [phone] Ron Santana M.D., Ph.D. [address] [place] [phone] 01/12/2024 2:00 PM CDT Appointment Department of Radiology, [facility] in [place], [place] [address] [place] [phone] Ron Santana M.D., Ph.D. [address] [place] [phone] 01/13/2024 8:00 AM CDT Office Visit Department of Cardiovascular Medicine in [place], [place] [address] [place] [phone] Marilu Castaneda P.A.-C., M.S. [address] [place] [phone] 01/13/2024 10:30 AM CDT Appointment Department of Cardiovascular Diseases in [place], [place] [address] [place] [phone] Ron Santana M.D., Ph.D. [address] [place] [phone] 01/16/2024 12:25 PM CDT Hospital Encounter Division of Cardiovascular Diseases in [address] [phone] Ron Santana M.D., Ph.D. [address] [place] [phone] Atrial Fibrillation Longstanding Persistent (HCC) 01/16/2024 12:25 PM CDT - 01/16/2024 4:35 PM CDT Surgery Division of Cardiovascular Diseases in [place], [place] [address] [place] [address] Ron Santana M.D., Ph.D. [address] [place] [address] PULSED FIELD ABLATION documented as of this encounter Visit Diagnoses Not on filedocumented in this encounter Additional Health Concerns Infection Onset Date Last Indicated Resolved Time Protective Environment 09/20/2022 09/20/2022 Assessment Noted Time PHQ-9 Depression Total Score: 6 07/17/19 20 10:26 AM MATHEMATICAL STATISTICIAN documented as of this encounter Care Teams Installment Account Checker Relationship Specialty Start Date End Date Elsewhere, Pcp PCP - General Family Practice Medical Doctor 06/27/19 documented as of this encounter
--- OUTSIDE RECORDS SUMMARY | 2023-11-10 09:21 | XMS_ITS | Encounter Summary ---
Author Organization [facility] Address [address] [place] [address] Care Team Providers Care Helicopter Engineer Name Role Phone Elsewhere, Pcp Primary Care Provider Unavailabl e Encounter Details Date Type Department Care Team (Latest Contact Info) Description 09/09/2023 7:53 AM CDT - 09/09/2023 9:24 AM CDT Hospital Encounter Department of Radiology in [address] [phone] Birdie Hurtado M.D. [address] [place] [phone] Malignant Neoplasm Of Disseminated (HCC); Malignant [...] week 06/30/2021 How often do you attend latter day or roman catholic serv ices? Never 06/30/2021 Do you belong to any clubs o r organizations such as latter day groups, unions, fraternal or athletic groups, or [...] hard at all 06/30/2021 [facility] [place] of Occupat ional Health - Occupational Stress [...] place to sleep or slept in a penitentiary (including now)? No 06/30/2021 Depression Answer Date [...] Sex Assigned at Male 06/30/2021 12:19 PM FREIGHT CAR BUILDER Gender Identity Male 06/30/2021 12:19 PM FREIGHT CAR BUILDER Sexual Orientation Straight 06/30/2021 12 :19 PM FREIGHT CAR BUILDER documented as of this encounter Medications at [...] AM CDT Clinical Communication Virtual Review in [place], [place] 200 [place] [phone] 01/12/2024 9:40 AM CDT Ancillary Procedure Department of Cardiovascular Medicine in [place], [place] [address] [place] [phone] Ron Santana M.D., Ph.D. [address] [place] [phone] 01/12/2024 10:00 AM CDT Appointment Department of Cardiovascular Diseases in [place], [place] [address] [place] [phone] Ron Santana M.D., Ph.D. [address] [place] [phone] 01/12/2024 10:30 AM CDT Appointment Department of Laboratory Medicine and Pathology, [facility] in [place], [place] [address] [place] [phone] Ron Santana M.D., Ph.D. [address] [place] [phone] 01/12/2024 2:00 PM CDT Appointment Department of Radiology, [facility] in [place], [place] [address] [place] [phone] Ron Santana M.D., Ph.D. [address] [place] [phone] 01/13/2024 8:00 AM CDT Office Visit Department of Cardiovascular Medicine in [place], [place] [address] [place] [phone] Marilu Castaneda P.A.-Nikki., M.S. [address] [place] [phone] 01/13/2024 10:30 AM CDT Appointment Department of Cardiovascular Diseases in [place], [place] [address] [place] [phone] Ron Santana M.D., Ph.D. [address] [place] [phone] 01/16/2024 12:25 PM CDT Hospital Encounter Division of Cardiovascular Diseases in [place], [place] [address] [place] [address] Ron Santana M.D., Ph.D. [address] [place] [address] Atrial Fibrillation Longstanding Persistent (HCC) 01/16/2024 12:25 PM CDT - 01/16/2024 4:35 PM CDT Surgery Division of Cardiovascular Diseases in [place], [place] [address] [place] [address] Ron Santana M.D., Ph.D. [address] [place] [phone] PULSED FIELD ABLATION documented as of this encounter Procedures Procedure Name Priority Date/Time Associated Diagnosis Comments INTERPRETATION OF OUTSIDE NM PET SCAN RAD - Routine (most inpatients and all outpatients) 09/09/2023 8:47 AM CDT 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 documented in this encounter Results * Interpretation of Outside NM PET Scan (09/09/2023 8:47 AM CDT) Anatomical Region Laterality Modality Nuclear Medicine PET RST LOS , Nuclear Medicine ARZ LOS, Nuclear Medicine FLA LOS, Nuclear Medicine, Other, Neuroradiology ARZ LOS, Neuroradiology FLA LOS, Neuroradiology RST LOS, Body N/A Nuclear Medicine Impressions 09/09/2023 10:03 AM CDT 1. 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 Attention onfollow-up recommended. Birdie Hurtado M.D. IMG NM PROCEDURES documented in this encounter Visit Diagnoses Diagnosis 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 Atrial Fibrillation Longstanding Persistent (HCC)- Primary Atrial Fibrillation Longstanding Persistent (HCC) documented in this encounter Additional Health Concerns Infection Onset Date Last Indicated Resolved Time Protective Environment 09/20/2022 09/20/2022 Assessment Noted Time PHQ-9 Depression Total Score: 6 07/17/19 20 10:26 AM FREIGHT CAR BUILDER documented as of this encounter Care Teams Helicopter Engineer Relationship Specialty Start Date End Date Elsewhere, Pcp PCP - General Manager Printing 06/27/19 documented as of this encounter
--- OUTSIDE RECORDS SUMMARY | 2023-11-10 09:21 | XMS_ITS | Encounter Summary ---
Author Organization [facility] Address [address] [place] [address] Care Team Providers Care Licensed Funeral Director And Embalmer Name Role Phone Elsewhere, Pcp Primary Care Provider Unavailabl e Encounter Details Date Type Department Care Team (Latest Contact Info) Description 09/09/2023 7:53 AM CDT - 09/09/2023 9:24 AM CDT Hospital Encounter Department of Radiology in [address] [phone] Birdie Hurtado M.D. [address] [place] [phone] Malignant Neoplasm Of Disseminated (HCC); Malignant [...] week 06/30/2021 How often do you attend yazdanism or oriental orthodox serv ices? Never 06/30/2021 Do you belong to any clubs o r organizations such as yazdanism groups, unions, fraternal or athletic groups, or [...] and heating? Not hard at all 06/30/2021 [facility] of Occupat ional Health - Occupational Stress [...] place to sleep or slept in a fci (including now)? No 06/30/2021 Depression Answer Date [...] Sex Assigned at Male 06/30/2021 12:19 PM STAFF APPRAISER Gender Identity Male 06/30/2021 12:19 PM STAFF APPRAISER Sexual Orientation Straight 06/30/2021 12 :19 PM STAFF APPRAISER documented as of this encounter Medications at [...] AM CDT Clinical Communication Virtual Review in [place], [place] [address] [place] [phone] 01/12/2024 9:40 AM CDT Ancillary Procedure Department of Cardiovascular Medicine in [place], [place] [address] [place] [phone] Ron Santana M.D., Ph.D. [address] [place] [phone] 01/12/2024 10:00 AM CDT Appointment Department of Cardiovascular Diseases in [place], [place] [address] [place] [phone] Ron Santana M.D., Ph.D. [address] [place] [phone] 01/12/2024 10:30 AM CDT Appointment Department of Laboratory Medicine and Pathology, [facility] in [place], [place] [address] [place] [phone] Ron Santana M.D., Ph.D. [address] [place] [phone] 01/12/2024 2:00 PM CDT Appointment Department of Radiology, [facility] in [place], [place] [address] [place] [phone] Ron Santana M.D., Ph.D. [address] [place] [phone] 01/13/2024 8:00 AM CDT Office Visit Department of Cardiovascular Medicine in [place], [place] [address] [place] [phone] Marilu Castaneda P.A.-Nikki., M.S. [address] [place] [phone] 01/13/2024 10:30 AM CDT Appointment Department of Cardiovascular Diseases in [place], [place] [address] [place] [phone] Ron Santnaa M.D., Ph.D. [address] [place] [phone] 01/16/2024 12:25 PM CDT Hospital Encounter Division of Cardiovascular Diseases in [place], [place] [address] [place] [address] Ron Santana M.D., Ph.D. [address] [place] [phone] Atrial Fibrillation Longstanding Persistent (HCC) 01/16/2024 12:25 PM CDT - 01/16/2024 4:35 PM CDT Surgery Division of Cardiovascular Diseases in [place], [place] [address] [place] [address] Ron Santana M.D., Ph.D. 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 Birdie Hurtado M.D. 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
--- OUTSIDE RECORDS SUMMARY | 2023-11-10 09:21 | XMS_ITS | Encounter Summary ---
Author Organization [facility] Address [address] [place] [address] Care Team Providers Care Insulation Batting Machine Operator Name Role Phone Elsewhere, Pcp Primary Care Provider Unavailabl e Encounter Details Date Type Department Care Team (Late st Contact Info) Description 09/09/2023 Orders Only Department of Oncology in [place], [place] [address] [place] [phone] Birdie Hurtado M.D. [address] [place] [phone] Malignant Neoplasm Of Disseminated (HCC) (Primary Dx); Malignant Neoplasm Of Lip Squamous Cell Social History Tobacco Use Types Packs/Day Years [...] week 06/30/2021 How often do you attend gnosticist or oriental orthodox serv ices? Never 06/30/2021 Do you belong to any clubs o r organizations such as gnosticist groups, unions, fraternal or athletic groups, or [...] and heating? Not hard at all 06/30/2021 [employer] of Occupat ional Health - Occupational Stress [...] Sex Assigned at Male 06/30/2021 12:19 PM AVIATION ELECTRICIAN Gender Identity Male 06/30/2021 12:19 PM AVIATION ELECTRICIAN Sexual Orientation Straight 06/30/2021 12 :19 PM AVIATION ELECTRICIAN documented as of this encounter Plan of Treatment Upcoming Encounters Date Type Department Care Team (Latest Contact Info) Description 01/10/2024 7:45 AM CDT Clinical Communication Virtual Review in [place], [place] [address] [place] [phone] 01/12/2024 9:40 AM CDT Ancillary Procedure Department of Cardiovascular Medicine in [place], [place] [address] [place] [phone] Ron Santana M.D., Ph.D. [address] [place] [phone] 01/12/2024 10:00 AM CDT Appointment Department of Cardiovascular Diseases in [place], [place] [address] [place] [phone] Ron Santana M.D., Ph.D. [address] [place] [phone] 01/12/2024 10:30 AM CDT Appointment Department of Laboratory Medicine and Pathology, [facility] in [place], [place] [address] [place] [phone] Ron Santana M.D., Ph.D. [address] [place] [phone] 01/12/2024 2:00 PM CDT Appointment Department of Radiology, [facility] in [place], [place] [address] [place] [phone] Ron Santana M.D., Ph.D. [address] [place] [phone] 01/13/2024 8:00 AM CDT Office Visit Department of Cardiovascular Medicine in [place], [place] [address] [place] [phone] Marilu Castaneda P.A.-C., M.S. [address] [place] [phone] 01/13/2024 10:30 AM CDT Appointment Department of Cardiovascular Diseases in [place], [place] [address] [place] [phone] Ron Santana M.D., Ph.D. [address] [place] [phone] 01/16/2024 12:25 PM CDT Hospital Encounter Division of Cardiovascular Diseases in [place], [place] [address] [place] [phone] Ron Santana M.D., Ph.D. [address] [place] [phone] Atrial Fibrillation Longstanding Persistent (HCC) 01/16/2024 12:25 PM CDT - 01/16/2024 4:35 PM CDT Surgery Division of Cardiovascular Diseases in [place], [place] [address] [place] [phone] Ron Santana M.D., Ph.D. [address] [place] [phone] PULSED FIELD ABLATION documented as of this encounter Results * Interpretation of Outside [...] patient's reported CLL versus metastatic disease. Birdie Hrutado M.D. [facility] [place]ED[place] * Interpretation of Outside NM [...] M.D. - 09/09/2023 EXAM: INTERPRETATION OF OUTSIDE IA PET SCAN dated 05/12/2023. TECHNIQUE: F-18 Fluorodeoxyglucose [...] mass has significantly decreased in size from 2019measuring 5.1 cm x 3.2 cm with maximum [...] or inflammatory process. Attention onfollow-up recommended. 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 Atrial Fibrillation Longstanding Persistent (HCC)- Primary Atrial Fibrillation Longstanding Persistent (HCC) documented in this encounter Additional Health Concerns Infection Onset Date Last Indicated Resolved Time Protective Environment 09/20/2022 09/20/2022 Assessment Noted Time PHQ-9 Depression Total Score: 6 07/17/19 20 10:26 AM AVIATION ELECTRICIAN documented as of this encounter Care Teams Insulation Batting Machine Operator Relationship Specialty Start Date End Date Elsewhere, Pcp PCP - General Blocker And Cutter Contact Lens 06/27/19 documented as of this encounter
--- NOTE | 2023-11-10 10:00 | CRLHL7_ITS ---
For Patients: As a result of the Century Cures Act, medical imaging exams and procedure reports are released immediately into your electronic medical record. You may view this report before your referring provider. If you have questions, please contact your health care provider. INDICATION: Chronic lymphocytic leukemia of B-cell type; assess treatment response. COMPARISON: CT chest, abdomen and pelvis March 22, 2022, November 29, 2022, June 02, 2023 and August 30, 2023; PET-CT May 12, 2023; CT neck November 29, 2022 and August 30, 2023. Technique: CT chest, abdomen and pelvis with intravenous contrast; coronal and sagittal reformats. Findings : Progressive mediastinal and bilateral hilar lymphadenopathy. The subcarinal lymph node mass measures 3.4 cm in short axis diameter and was measuring 1.4 cm in 2021 and 3 cm in August 2023 and on 1.7 cm in May 2023. Right paratracheal lymphadenopathy measures 3.6 cm in short axis diameter and was measuring 3.1 cm in August 2023 and 2.3 cm in May 2023. normal size cardiac silhouette without any pericardial effusion. Bilateral supraclavicular lymphadenopathy as well as bilateral axillary lymphadenopathy. Tiny right-sided pleural effusion. Normal size cardiac silhouette without any pericardial effusion. Diffuse patchy alveolar infiltrates throughout both lungs ; progression since May 2023 and August 2023. The previously noted masslike infiltrate within the right lung has significantly resolved. Multiple ground-glass nodular opacities have evolved predominantly in the right lower lobe since August 2023. No focal hepatic splenic pathology. No pancreatic pathology. Gallbladder is unremarkable. Peripancreatic, periportal, mesenteric and retroperitoneal lymphadenopathy that is relatively stable since August 2023 and has significantly progressed since November 2022. No adrenal pathology. Kidneys are unremarkable. No evidence of abdominal or pelvic ascites. Brachytherapy radiation seeds within the prostate gland. Impression: 1. Progression of the mediastinal, bilateral hilar and bilateral axillary lymphadenopathy as well as peripancreatic, periportal and retroperitoneal lymphadenopathy indicating progression of the disease. 2. Diffuse patchy pulmonary infiltrates both lungs. 3. Significant resolution of the masslike infiltrate in the right lung when compared to the previous CT from May 2023. 4. Development of new ground-glass nodules predominantly in the right lower lung since the previous study. Please note that all CT scans at this facility use dose modulation, iterative reconstruction, and/or weight-based dosing when appropriate to reduce radiation dose to as low as reasonably achievable. Dictated by Denisa Varela MD @ 11/11/2023 2:36:00 PM (Electronically Signed)
== END 2023-11-10 09:17 | disposition home or self-care (01) ==
LOC: CT 09:17
PROVIDERS: PCP Student in an Organized Health Care Education/Training Program; Visit Provider Internal Medicine Hematology & Oncology
DX: C91.10 Chronic lymphocytic leukemia of B-cell type not having achieved remission (principal); R91.8 Other nonspecific abnormal finding of lung field
CPT/HCPCS: 71260; 74177; Q9967

== ENCOUNTER 2023-11-22 12:29 | Outpatient (CLI) | payer MEDICARE, BC, SELFPAY ==
--- OUTSIDE RECORDS SUMMARY | 2023-11-22 12:32 | XMS_ITS | Encounter Summary ---
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 [address] [place] [phone] [facility] Referral ID Status Reason Start Date Expiration Date V isits Requested Visits Authorized [id number] Authorized 11/17/2023 05/18/2025 1 1 Encounter Details Date Type Department Care Team (Late st Contact Info) Description 11/17/2023 Orders Only Department of Oncology in [place], [place] [address] [place] [phone] Birdie Hurtado M.D. 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 Never 06/30/2021 Do you belong to any clubs o r organizations such as temple groups, unions, fraternal or athletic groups, or [...] and heating? Not hard at all 06/30/2021 [facility] of Occupat ional Health - Occupational Stress [...] you have received? Professional school degree (e.g., , DDS, DVM, GRACIELA) 06/30/2021 Sex and Gender Information Value Date Recorded Sex Assigned at Male 06/30/2021 12:19 PM MANAGER LSW Gender Identity Male 06/30/2021 12:19 PM MANAGER LSW Sexual Orientation Straight 06/30/2021 12 :19 PM MANAGER LSW documented as of this encounter Plan of Treatment Upcoming Encounters Date Type Department Care Team (Latest Contact Info) Description 12/02/2023 10:20 AM CDT Telemedicine Department of Oncology in [place], [place] [address] [place] [phone] Birdie Hurtado M.D. [address] [place] [phone] 01/10/2024 7:45 AM CDT Clinical Communication Virtual Review in [place], [place] [address] [place] [phone] 01/12/2024 9:40 AM CDT Ancillary Procedure Department of Cardiovascular Medicine in [place], [place] [address] [place] [phone] Ron Santana M.D., Ph.D. [address] [place] [phone] 01/12/2024 10:00 AM CDT Appointment Department of Cardiovascular Diseases in [place], [place] [address] [place] [phone] Ron Santana M.D., Ph.D. [address] [place] [phone] 01/12/2024 10:30 AM CDT Appointment Department of Laboratory Medicine and Pathology, [facility] in [place], [place] [address] [place] [phone] Ron Santana M.D., Ph.D. [address] [place] [phone] 01/12/2024 2:00 PM CDT Appointment Department of Radiology, [facility] in [place], [place] [address] [place] [phone] Ron Santana M.D., Ph.D. [address] [place] [phone] 01/13/2024 8:00 AM CDT Office Visit Department of Cardiovascular Medicine in [place], [place] [address] [place] [phone] Marilu Castaneda P.A.-C., M.S. [address] [place] [phone] 01/13/2024 10:30 AM CDT Appointment Department of Cardiovascular Diseases in [place], [place] [address] [place] [phone] Ron Santana M.D., Ph.D. [address] [place] [phone] 01/16/2024 12:25 PM CDT Hospital Encounter Division of Cardiovascular Diseases in [address] [phone] Ron Santana M.D., Ph.D. [address] [place] [phone] Atrial Fibrillation Longstanding Persistent (HCC) 01/16/2024 12:25 PM CDT - 01/16/2024 4:35 PM CDT Surgery Division of Cardiovascular Diseases in [address] [phone] Ron Santana M.D., Ph.D. 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 Interval worsening of mediastinal, hilar and axillary lymphadenopathy. Unchanged supraclavicular lymphadenopathy. 2. Interval increase in bilateral groundglass opacities could be due to infection/inflammation. 3. A previously new nodule in right middle lobe has decreased in size and density. However, there are multiple new or enlarging nodular opacities, indeterminate. Short-term follow-up CT can be considered. 4. New small right pleural effusion. Narrative 11/17/2023 4:48 PM CDT EXAM: INTERPRETATION OF OUTSIDE CT CHEST with intravenous contrast dated 11/10/2023 COMPARISON: Outside CT 08/30/2023 FINDINGS: Trachea and central bronchi are patent. Bilateral lobular groundglass opacities are increased, especially in the right lower lobe (for example ). Previously new nodular opacity in right middle lobe has decreased in size and density (). However, there are multiple new or enlarging nodular opacities. For example, a new 7 mm nodule in right lower lobe (). 15 x 10 mm nodule in right lower lobe () has increased from 10 x 7 mm in the previous CT. New small right pleural effusion with atelectasis. No pneumothorax. Interval worsening lymphadenopathy. For example, subcarinal lymph node (52) measures 34 mm compared to 32 mm in the previous CT. Right lower paratracheal lymph node (37) measures 29 mm compared to 25 mm in the previous CT. 13 mm left axillary lymph node (35) previously measured 11 mm. 11 mm left supraclavicular lymph node (/) is unchanged. Visualized thyroid gland is normal. Mild left atrial enlargement. No pericardial effusion. Tania clip device. Mitral valve leaflet thickening. Moderate coronary artery calcifications. Trace pericardial fluid is likely physiological. The thoracic aorta is normal in course and caliber with mild atherosclerotic changes. The central pulmonary arteries are normal in caliber. Degenerative changes spine. Osteopenia. Mild anterior wedging of midthoracic vertebral bodies. This examination was performed in conjunction with a CT of the abdomen, which will be reported separately if requested. Procedure Note Art Elise M.B.B.S., M.D. - 11/17/2023 EXAM: INTERPRETATION OF OUTSIDE CT CHEST with intravenous contrast dated11/10/2023 COMPARISON: Outside CT 08/30/2023 FINDINGS: Trachea and central bronchi are patent. Bilateral lobular groundglassopacities are increased, especially in the right lower lobe (for example). Previously new nodular opacity in right middle lobe has decreasedin size and density (). However, there are multiple new or enlarging nodular opacities. For example, a new7 mm nodule in right lower lobe (). 15 x 10 mm nodule in right lowerlobe () has increased from 10 x 7 mm in the previous CT. New smallright pleural effusion with atelectasis. No pneumothorax. Interval worsening lymphadenopathy. For example, subcarinal lymph node(52) measures 34 mm compared to 32 mm in the previous CT. Right lowerparatracheal lymph node (37) measures 29 mm compared to [address] 13 mm left axillary lymph node (35) previously measured 11 mm. 11 mm left supraclavicular lymphnode (/) is unchanged. Visualized thyroid gland is normal. Mild left atrial enlargement. No pericardial effusion. Tania clip device.Mitral valve leaflet thickening. Moderate coronary artery calcifications.Trace pericardial fluid is likely physiological. The thoracic aorta isnormal in course and caliber with mild atherosclerotic changes. The central pulmonary arteries are normal incaliber. Degenerative changes spine. Osteopenia. Mild anterior wedging ofmidthoracic vertebral bodies. This examination was performed in conjunction with a CT of the abdomen,which will be reported separately if requested. IMPRESSION: 1. Interval worsening of mediastinal, hilar and axillary lymphadenopathy.Unchanged supraclavicular lymphadenopathy. 2. Interval increase in bilateral groundglass opacities could be due toinfection/inflammation. 3. A previously new nodule in right middle lobe has decreased in size anddensity. However, there are multiple new or enlarging nodular opacities,indeterminate. Short-term follow-up CT can be considered. 4. New small right pleural effusion. 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
--- OUTSIDE RECORDS SUMMARY | 2023-11-22 12:32 | XMS_ITS | Clinical Summary ---
Author Organization [facility] Address [address] [place] [address] Care Team Providers Care Creative Technologist Name Role Phone Elsewhere, Pcp Primary Care Provider Unavailabl e Source Comments Patient records contain information from all sites at [facility]. For routine questions regarding patient records, call [phone] during business hours, M-F 8:00 AM - 5:00 PM Central Time. Record requests for emergency care only can be directed to [phone] at any time.[facility] Allergies Active Allergy Reactions Criticality Noted Date [...] Encounters Date Type Department Care Team Description 11/21/2023 Orders Only Department of Oncology in [address] [phone] Birdie Hurtado M.D. 11/17/2023 1:15 PM CDT Ancillary Procedure Department of Radiology in [place], [place] [address] [place] [address] Birdie Hurtado M.D. 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 11/08/2023 Clinical Communication Department of Cardiovascular Medicine in [place], [place] [address] [place] [address] Vee Jalloh R.N. 10/08/2023 Refill Department of Cardiovascular Diseases in [address] [phone] Flo Nazario M.D. Med Refill 10/06/2023 4:30 PM CDT Virtual Visit Department of Cardiovascular Medicine in [place], [place] [address] [place] [address] Ron Santana M.D., Ph.D. Atrial Fibrillation Unspecified (HCC) (Primary Dx) 10/06/2023 Orders Only Division of Cardiovascular Diseases in [place] [id number] [place] [phone] Ron Santana M.D., Ph.D. 10/06/2023 Clinical Communication Department of Cardiovascular Medicine in [address] [phone] Ron Santana M.D., Ph.D. Med Question (Calquence dosage / ablation list) 09/09/2023 9:25 AM CDT - 09/09/2023 11:59 PM CDT Hospital Encounter Department of Radiology in [address] [phone] Birdie Hurtado M.D. Malignant Neoplasm Of Disseminated (HCC); Malignant Neoplasm Of Lip Squamous Cell Discharge Disposition: Home or Self Care 09/09/2023 7:53 AM CDT - 09/09/2023 9:24 AM CDT Hospital Encounter Department of Radiology in [address] [phone] Birdie Hurtado M.D. Malignant Neoplasm Of Disseminated (HCC); Malignant Neoplasm Of Lip Squamous Cell Discharge Disposition: Home or Self Care 09/09/2023 7:53 AM CDT - 09/09/2023 9:24 AM CDT Hospital Encounter Department of Radiology in [address] [phone] Birdie Hurtado M.D. Malignant Neoplasm Of Disseminated (HCC); Malignant Neoplasm Of Lip Squamous Cell Discharge Disposition: Home or Self Care 09/09/2023 7:53 AM CDT - 09/09/2023 9:24 AM CDT Hospital Encounter Department of Radiology in [address] [address] Birdie Hurtado M.D. Malignant Neoplasm Of Disseminated (HCC); Malignant Neoplasm Of Lip Squamous Cell Discharge Disposition: Home or Self Care 09/09/2023 Orders Only Department of Oncology in [address] [phone] Birdie Hurtado M.D. 09/09/2023 Orders Only Department of Oncology in [address] [address] Birdie Hurtado M.D. Malignant Neoplasm Of Disseminated (HCC) (Primary Dx); Malignant Neoplasm Of Lip Squamous Cell from Last 3 Months Immunizations Name Administration [...] week 06/30/2021 How often do you attend baptist or advent serv ices? Never 06/30/2021 Do you belong to any clubs o r organizations such as baptist groups, unions, fraternal or athletic groups, or [...] and heating? Not hard at all 06/30/2021 [facility] [place] of Occupat ional Health - Occupational Stress [...] place to sleep or slept in a mcc (including now)? No 06/30/2021 Depression Answer Date [...] Sex Assigned at Male 06/30/2021 12:19 PM CHIMNEY BUILDER Gender Identity Male 06/30/2021 12:19 PM CHIMNEY BUILDER Sexual Orientation Straight 06/30/2021 12 :19 PM CHIMNEY BUILDER Last Filed Vital Signs Vital Sign Reading Time Taken Comments Blood Pressure 168/75 05/03/2023 4:01 PM CHIMNEY BUILDER Pulse 73 05/03/2023 4:01 PM CHIMNEY BUILDER Temperature 36.6 ??C (97.9 ??F) 05/03/2023 3:58 PM CS T Respiratory Rate 17 10/13/2022 5:15 PM CDT Oxygen Saturation 98% 05/03/2023 3:58 PM CHIMNEY BUILDER Room air Inhaled Oxygen Concentration - - Weight 81 kg (178 lb 9.2 oz) 05/03/2023 3:58 PM CHIMNEY BUILDER Height 179 cm (5' 10.47) 04/02/2022 1:10 PM CDT Body Mass Index 25.28 04/02/2022 1:10 PM CDT Plan of Treatment Upcoming Encounters Date Type Department Care Team (Latest Contact Info) Description 12/02/2023 10:20 AM CDT Telemedicine Department of Oncology in [address] [phone] Birdie Hurtado M.D. [address] [place] [phone] 01/10/2024 7:45 AM CDT Clinical Communication Virtual Review in [place], [place] 200 [place] [address] 01/12/2024 9:40 AM CDT Ancillary Procedure Department of Cardiovascular Medicine in [place], [place] [address] [place] [phone] Ron Santana M.D., Ph.D. [address] [place] [phone] 01/12/2024 10:00 AM CDT Appointment Department of Cardiovascular Diseases in [place], [place] [address] [place] [phone] Ron Santana M.D., Ph.D. [address] [place] [phone] 01/12/2024 10:30 AM CDT Appointment Department of Laboratory Medicine and Pathology, [facility], in [place], [place] [address] [place] [phone] Ron Santana M.D., Ph.D. [address] [place] [phone] 01/12/2024 2:00 PM CDT Appointment Department of Radiology, [facility], in [place], [place] [address] [place] [phone] Ron Santana M.D., Ph.D. [address] [place] [phone] 01/13/2024 8:00 AM CDT Office Visit Department of Cardiovascular Medicine in [place], [place] [address] [place] [phone] Marilu Castaneda P.A.-C., M.S. [address] [place] [phone] 01/13/2024 10:30 AM CDT Appointment Department of Cardiovascular Diseases in [address] [phone] Ron Santana M.D., Ph.D. [address] [place] [phone] 01/16/2024 12:25 PM CDT Hospital Encounter Division of Cardiovascular Diseases in [address] [phone] Ron Santana M.D., Ph.D. [address] [place] [phone] Atrial Fibrillation Longstanding Persistent (HCC) 01/16/2024 12:25 PM CDT - 01/16/2024 4:35 PM CDT Surgery Division of Cardiovascular Diseases in [address] [phone] Ron Santana M.D., Ph.D. [address] [place] [address] PULSED FIELD ABLATION Health Maintenance Due Date Last Done Comments Hepatitis C Screening 1945 Zoster Vaccines (1 of 2) 12/07/2010 10/12/2010 DTaP,Tdap,and Td Vaccines (2 - Td or Tdap) 09/11/2022 09/11/2012, 01/19/2006 COVID-19 Vaccine ( season) 2023 03/21/2023, 03/02/2022, 09/29/2021, Additional history [...] this topic Medical Devices Implanted Type Area Applications Support Specialist Device Identifier Shelf Expiration Date Model / Serial / Lot Clp Tania Clip Del Sys Xtr - [id number] Implanted:Qty : 1 on 06/28/2019 by Hernandez Echevarria M.D. 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 Anatomical Region Laterality Modality Chest, Thoracic RST [...] 7 mm nodule in right lower lobe (78). 15 x 10 mm nodule in right lower lobe (/76) has increased from 10 x 7 mm in the previous CT. New small right pleural effusion with atelectasis. No pneumothorax. Interval worsening lymphadenopathy. For example, subcarinal lymph node (52) measures 34 mm compared to 32 mm in the previous CT. Right lower paratracheal lymph node (/37) measures 29 mm compared to 25 mm in the previous CT. 13 mm left axillary lymph node (/35) previously measured 11 mm. 11 mm left supraclavicular lymph node (2/) is unchanged. Visualized thyroid gland is normal. [...] 11 mm. 11 mm left supraclavicular lymphnode (07/19) is unchanged. Visualized thyroid gland is normal. [...] 4. New small right pleural effusion. Birdie Hurtado M.D. IMG CT PROCEDURES * CT chest abdomen pelv w con-Outside CT Body (11/10/2023 9:45 AM CDT) Only the most recent of2 resultswithin the time period is included. Narrative IIMS - 11/15/2023 2:01 PM CDT This order has been created and auto-finalized to support the import of outside images. If available, original interpretation can be found on the Media Tab in Chart Review, in Document Viewer, as an image in QREADS or as an Addendum. If a re-interpretation or overread is required please follow defined workflow.?? Provider Not In System IMG CT PROCEDURES IIIN NA * Interpretation of Outside CT Abdomen and [...] mass consistent with treatedlymphoma. Birdie Hurtado M.D. [facility] CT PROCEDURES * Interpretation of Outside CT [...] CLL versus metastatic disease. Birdie Hurtado M.D. [facility] CT PROCEDURES * Interpretation of Outside NM [...] Attention onfollow-up recommended. Birdie BULLOCK [place] PROCEDURES * CT SOFT TISSUE NECK W CON-Outside [...] Provider Not In System IMG CT PROCEDURES IIMS NA * Creatinine with Estimated GFR (05/23/2023 8:43 AM CHIMNEY BUILDER) Creatinine 1.10 0.74 - 1.35 mg/dL 05/23/2023 9:50 AM CHIMNEY BUILDER DTL Estimated GFR (eGFR) 69 >=60 mL/min/BSA 05/23/2023 9:50 AM CHIMNEY BUILDER DTL Comment: Estimated GFR calculated using the 2020 CKD_EPI creatinine equation. Blood (Blood, Venous) 05/23/2023 8:43 AM CHIMNEY BUILDER 05/23/2023 9:27 AM CHIMNEY BUILDER Karlie Escoto M.D. LAB BLOOD ADD-ON Performing Organization Address [facility] Co de Phone Number [facility] [address] [place] [address], [facility] [address] [place] [address] * Potassium (10/26/2022 11:31 AM CDT) Potassium, P 4.4 3.6 - 5.2 mmol/L 10/26/2022 11:56 AM CDT [facility] Blood (Blood, Venous) 10/26/2022 11:31 AM CDT 10/26/2022 11:34 AM CDT Ron Santana M.D., Ph.D. LAB BLOOD AD D-ON Performing Organization Address City/[facility]/ZIP Co de Phone Number [facility] [address] [place] [address], [place] [facility] in [address] [address] * (ABNORMAL) Basic Metabolic Panel (10/13/2022 12:40 [...] Ivone Blunt M.D. LAB BLOOD ADD- ON [facility] [address] [place] [address], [facility] [address] [place] [address] from Last 3 Months or Most Recently Relevant to Health Maintenance Additional Health Concerns Infection Onset Date Last Indicated Protective Environment 09/20/2022 3 Advance Directives For more information, please contact: [phone] * Full Code (Latest Code Status on File) Date Activated Date Inactivated Comments 01/06/2022 5:12 PM 01/09/2022 4:47 PM Question Answer Comments Full Code: Discussed * Full Code Date Activated Date Inactivated Comments 06/28/2019 12:14 PM 06/29/2019 2:37 PM Question Answer Comments Full Code: Discussed Care Teams Creative Technologist Relationship Specialty Start Date End Date Elsewhere, Pcp PCP - General Assistant Producer 06/27/19
--- OUTSIDE RECORDS SUMMARY | 2023-11-22 12:32 | XMS_ITS ---
Author Organization [facility] Address [address] [place] [address] Care Team Providers Care Internet Cafe Manager Name Role Phone Unavailable Unavailable Unavailable Surgery Details Not on file Complications Check Surgery Details section. Procedure Estimated Blood Loss Check Surgery Details section. Procedure Findings Check Surgery Details section. Procedure Specimens Taken Check Surgery Details section.
--- OUTSIDE RECORDS SUMMARY | 2023-11-22 12:32 | XMS_ITS | Encounter Summary ---
Author Organization [facility] Address [address] [place] [address] Care Team Providers Care Airfield Operations Specialist Name Role Phone Elsewhere, Pcp Primary Care Provider Unavailabl e Encounter Details Date Type Department Care Team (Latest Contact Info) Description 11/17/2023 1:15 PM CDT Ancillary Procedure Department of Radiology in [place], [place] [address] [place] [address] Birdie Hurtado M.D. [address] [place] [phone] Malignant Neoplasm Of Lung Squamous Cell Right [...] week 06/30/2021 How often do you attend faith or islam serv ices? Never 06/30/2021 Do you belong to any clubs o r organizations such as faith groups, unions, fraternal or athletic groups, or [...] and heating? Not hard at all 06/30/2021 [facility] of Occupat ional Health - Occupational Stress [...] place to sleep or slept in a care home (including now)? No 06/30/2021 Depression Answer Date [...] Sex Assigned at Male 06/30/2021 12:19 PM TESTING SPECIALIST Gender Identity Male 06/30/2021 12:19 PM TESTING SPECIALIST Sexual Orientation Straight 06/30/2021 12 :19 PM TESTING SPECIALIST documented as of this encounter Plan of Treatment Upcoming Encounters Date Type Department Care Team (Latest Contact Info) Description 12/02/2023 10:20 AM CDT Telemedicine Department of Oncology in [place], [place] [address] [place] [address] Birdie Hurtado M.D. [address] [place] [phone] 01/10/2024 7:45 AM CDT Clinical Communication Virtual Review in [address] [phone] 01/12/2024 9:40 AM CDT Ancillary Procedure Department of Cardiovascular Medicine in [place], [place] [address] [place] [phone] Ron Santana M.D., Ph.D. [address] [place] [phone] 01/12/2024 10:00 AM CDT Appointment Department of Cardiovascular Diseases in [place], [place] [address] [place] [address] Ron Santana M.D., Ph.D. [address] [place] [phone] 01/12/2024 10:30 AM CDT Appointment Department of Laboratory Medicine and Pathology, [facility] in [place], [place] [address] [place] [phone] Ron Santana M.D., Ph.D. [address] [place] [phone] 01/12/2024 2:00 PM CDT Appointment Department of Radiology, [facility] in [place], [place] [address] [place] [phone] Ron Santana M.D., Ph.D. [address] [place] [phone] 01/13/2024 8:00 AM CDT Office Visit Department of Cardiovascular Medicine in [place], [place] [address] [place] [phone] Marilu Castaneda P.A.Charo., M.S. [address] [place] [phone] 01/13/2024 10:30 AM CDT Appointment Department of Cardiovascular Diseases in [place], [place] [address] [place] [phone] Ron Santana M.D., Ph.D. [address] [place] [phone] 01/16/2024 12:25 PM CDT Hospital Encounter Division of Cardiovascular Diseases in [address] [phone] Ron Santana M.D., Ph.D. [address] [place] [phone] Atrial Fibrillation Longstanding Persistent (HCC) 01/16/2024 12:25 PM CDT - 01/16/2024 4:35 PM CDT Surgery Division of Cardiovascular Diseases in [address] [phone] Ron Santana M.D., Ph.D. 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 13 mm left axillary lymph node () previously measured 11 mm. 11 mm left supraclavicular lymph node (07/19) is unchanged. Visualized thyroid gland is [...] if requested. Procedure Note Art Elise M.B.B.S., MLina. - 11/17/2023 EXAM: INTERPRETATION OF OUTSIDE CT CHEST with intravenous contrast dated11/10/2023 COMPARISON: Outside CT 08/30/2023 FINDINGS: Trachea and central bronchi are patent. Bilateral lobular groundglassopacities are increased, especially in the right lower lobe (for example3). Previously new nodular opacity in right middle lobe has decreasedin size and density (). However, there are multiple new or enlarging nodular opacities. For example, a new7 mm nodule in right lower lobe (3/78). 15 x 10 mm nodule in right lowerlobe (3/76) has increased from 10 x 7 mm in the previous CT. New smallright pleural effusion with atelectasis. No pneumothorax. Interval worsening lymphadenopathy. For example, subcarinal lymph node(2/52) measures 34 mm compared to 32 mm in the previous CT. Right lowerparatracheal lymph node (2/37) measures 29 mm compared to [address] 13 mm left axillary lymph node (2/35) previously measured 11 mm. 11 mm left supraclavicular lymphnode (2/13) is unchanged. Visualized thyroid gland is normal. 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
--- OUTSIDE RECORDS SUMMARY | 2023-11-22 12:32 | XMS_ITS ---
Author Organization [facility] Address [address] [place] [address] Care Team Providers Care Roustabout Crew Pusher Name Role Phone Elsewhere, Pcp Primary Care [...] treatments are documented for this patient in [facility]. Treatments may have been administered in another system.
--- OUTSIDE RECORDS SUMMARY | 2023-11-22 12:32 | XMS_ITS | Encounter Summary ---
Author Organization [facility] Address [address] [place] [address] Care Team Providers Care Animal Health Technician Name Role Phone Elsewhere, Pcp Primary Care Provider Unavailabl e Encounter Details Date Type Department Care Team (Late st Contact Info) Description 11/21/2023 Orders Only Department of Oncology in [place], [place] [address] [place] [phone] Birdie Hurtado M.D. [address] [place] [phone] Social History Tobacco Use Types Packs/Day Years [...] week 06/30/2021 How often do you attend anglican or methodist serv ices? Never 06/30/2021 Do you belong to any clubs o r organizations such as anglican groups, unions, fraternal or athletic groups, or [...] and heating? Not hard at all 06/30/2021 [facility] of Occupat ional Health - [...] Sex Assigned at Male 06/30/2021 12:19 PM BALANCE AND HAIRSPRING ASSEMBLER Gender Identity Male 06/30/2021 12:19 PM BALANCE AND HAIRSPRING ASSEMBLER Sexual Orientation Straight 06/30/2021 12 :19 PM BALANCE AND HAIRSPRING ASSEMBLER documented as of this encounter Plan of Treatment Upcoming Encounters Date Type Department Care Team (Latest Contact Info) Description 12/02/2023 10:20 AM CDT Telemedicine Department of Oncology in [address] [phone] Birdie Hurtado M.D. [address] [place] [phone] 01/10/2024 7:45 AM CDT Clinical Communication Virtual Review in [place], [place] [address] [place] [address] 01/12/2024 9:40 AM CDT Ancillary Procedure Department of Cardiovascular Medicine in [place], [place] [address] [place] [phone] Ron Santana M.D., Ph.D. [address] [place] [phone] 01/12/2024 10:00 AM CDT Appointment Department of Cardiovascular Diseases in [place], [place] [address] [place] [phone] Ron Santana M.D., Ph.D. [address] [place] [phone] 01/12/2024 10:30 AM CDT Appointment Department of Laboratory Medicine and Pathology, [facility] in [place], [place] [address] [place] [phone] Ron Santana M.D., Ph.D. [address] [place] [phone] 01/12/2024 2:00 PM CDT Appointment Department of Radiology, [facility] in [place], [place] [address] [place] [phone] Ron Santana M.D., Ph.D. [address] [place] [phone] 01/13/2024 8:00 AM CDT Office Visit Department of Cardiovascular Medicine in [place], [place] [address] [place] [phone] Marilu Castaneda P.A.Charo., M.S. [address] [place] [phone] 01/13/2024 10:30 AM CDT Appointment Department of Cardiovascular Diseases in [place], [place] [address] [place] [phone] Ron Santana M.D., Ph.D. [address] [place] [phone] 01/16/2024 12:25 PM CDT Hospital Encounter Division of Cardiovascular Diseases in [place] [phone] [place] [phone] Ron Santana M.D., Ph.D. [address] [place] [phone] Atrial Fibrillation Longstanding Persistent (HCC) 01/16/2024 12:25 PM CDT - 01/16/2024 4:35 PM CDT Surgery Division of Cardiovascular Diseases in [address] [phone] Ron Santana M.D., Ph.D. [address] [place] [phone] PULSED FIELD ABLATION documented as of this encounter Visit Diagnoses Not on filedocumented in this encounter Additional Health Concerns Infection Onset Date Last Indicated Resolved Time Protective Environment 09/20/2022 09/20/2022 Assessment Noted Time PHQ-9 Depression Total Score: 6 07/17/19 20 10:26 AM BALANCE AND HAIRSPRING ASSEMBLER documented as of this encounter Care Teams Animal Health Technician Relationship Specialty Start Date End Date Elsewhere, Pcp PCP - General Flare Worker 06/27/19 documented as of this encounter
--- OUTSIDE RECORDS SUMMARY | 2023-11-22 12:32 | XMS_ITS | Encounter Summary ---
Author Organization [facility] Address [address] [place] [address] Care Team Providers Care Monorail Charger Operator Name Role Phone Elsewhere, Pcp Primary Care Provider Unavailabl e Encounter Details Date Type Department Care Team (Latest Contact Info) Description 11/09/2023 Clinical Communication Department of Cardiovascular Medicine in [place], [place] [address] [place] [address] Pump AttendantZelalem M.D. Social History Tobacco Use Types Packs/Day [...] week 06/30/2021 How often do you attend restorationist or yazidism serv ices? Never 06/30/2021 Do you belong to any clubs o r organizations such as restorationist groups, unions, fraternal or athletic groups, or [...] and heating? Not hard at all 06/30/2021 [facility] - Occupational [...] Sex Assigned at Male 06/30/2021 12:19 PM LIGHT RAIL TRAIN OPERATOR Gender Identity Male 06/30/2021 12:19 PM LIGHT RAIL TRAIN OPERATOR Sexual Orientation Straight 06/30/2021 12 :19 PM LIGHT RAIL TRAIN OPERATOR documented as of this encounter Plan of Treatment Upcoming Encounters Date Type Department Care Team (Latest Contact Info) Description 12/02/2023 10:20 AM CDT Telemedicine Department of Oncology in [place], [place] [address] [place] [phone] Birdie Hurtado M.D. [address] [place] [phone] 01/10/2024 7:45 AM CDT Clinical Communication Virtual Review in [place], [place] [address] [place] [phone] 01/12/2024 9:40 AM CDT Ancillary Procedure Department of Cardiovascular Medicine in [address] [phone] Ron Santana M.D., Ph.D. [address] [place] [phone] 01/12/2024 10:00 AM CDT Appointment Department of Cardiovascular Diseases in [place], [place] [address] [place] [phone] Ron Santana M.D., Ph.D. [address] [place] [phone] 01/12/2024 10:30 AM CDT Appointment Department of Laboratory Medicine and Pathology, [facility] in [place], [place] [address] [place] [phone] Ron Santana M.D., Ph.D. [address] [place] [phone] 01/12/2024 2:00 PM CDT Appointment Department of Radiology, [facility] in [place], [place] [address] [place] [phone] Ron Santana M.D., Ph.D. [address] [place] [phone] 01/13/2024 8:00 AM CDT Office Visit Department of Cardiovascular Medicine in [place], [place] [address] [place] [phone] Marilu Castaneda P.A.-C., M.S. [address] [place] [phone] 01/13/2024 10:30 AM CDT Appointment Department of Cardiovascular Diseases in [place], [place] [address] [place] [phone] Ron Santana M.D., Ph.D. [address] [place] [phone] 01/16/2024 12:25 PM CDT Hospital Encounter Division of Cardiovascular Diseases in [place], [place] [address] [place] [phone] Ron Santana M.D., Ph.D. [address] [place] [phone] Atrial Fibrillation Longstanding Persistent (HCC) 01/16/2024 12:25 PM CDT - 01/16/2024 4:35 PM CDT Surgery Division of Cardiovascular Diseases in [place] [id number] [place] [phone] Ron Santana M.D., Ph.D. [address] [place] [phone] PULSED FIELD ABLATION documented as of this encounter Visit Diagnoses Not on filedocumented in this encounter Additional Health Concerns Infection Onset Date Last Indicated Resolved Time Protective Environment 09/20/2022 09/20/2022 Assessment Noted Time PHQ-9 Depression Total Score: 6 07/17/19 20 10:26 AM LIGHT RAIL TRAIN OPERATOR documented as of this encounter Care Teams Monorail Charger Operator Relationship Specialty Start Date End Date Elsewhere, Pcp PCP - General Sash Maker 06/27/19 documented as of this encounter
--- OUTSIDE RECORDS SUMMARY | 2023-11-22 12:32 | XMS_ITS | Encounter Summary ---
Author Organization [facility] Address [address] [place] [id number] Care Team Providers Care Night Monitor Name Role Phone Elsewhere, Pcp Primary Care Provider Unavailabl e Reason for Referral * Outpatient (Routine) - Authorized Specialty Diagnoses / Procedures Referred By Contac t Referred To Contact Cardiovascular Disease Ron Santana M.D., Ph.D. [address] [place] [phone] [facility] Referral ID Status Reason Start Date Expiration Date V isits Requested Visits Authorized [id number] Authorized 11/09/2023 05/10/2025 1 1 * MRI/CAT/PET Scan (Routine) - Authorized Specialty Diagnoses / Procedures Referred By Contac t Referred To Contact Radiology Diagnoses Atrial Fibrillation Longstanding Persistent (HCC) Procedures CT Cardiac Pulmonary Veins with IV Ron Santana M.D., Ph.D. [address] [place] [phone] [facility] Referral ID Status Reason Start Date Expiration Date V isits Requested Visits Authorized [id number] Authorized 11/09/2023 11/08/2024 1 1 * Cardiovascular-Diagnostic (Routine) - Authorized Specialty Diagnoses / Procedures Referred By Contac t Referred To Contact Diagnoses Atrial Fibrillation Longstanding Persistent (HCC) Procedures Echo Transesophageal (MERVAT) Ron Santana M.D., Ph.D. [address] [place] [phone] [facility] Referral ID Status Reason Start Date Expiration Date V isits Requested Visits Authorized [id number] Authorized 11/09/2023 11/08/2024 1 1 * Outpatient (Routine) - Authorized Specialty Diagnoses / Procedures Referred By Contac t Referred To Contact Diagnoses Atrial Fibrillation Longstanding Persistent (HCC) Procedures ECG Heart rhythm monitor (Holter) Ron Santana M.D., Ph.D. [address] [place] [phone] [facility] Referral ID Status Reason Start Date Expiration Date V isits Requested Visits Authorized [id number] Authorized 11/09/2023 11/08/2024 1 1 * Cardiovascular-Diagnostic (Routine) - Authorized Specialty Diagnoses / Procedures Referred By Contac t Referred To Contact Diagnoses Atrial Fibrillation Longstanding Persistent (HCC) Procedures Echo Transthoracic (TTE) Ron Santana M.D., Ph.D. [address] [place] [phone] [facility] Referral ID Status Reason Start Date Expiration Date V isits Requested Visits Authorized [id number] Authorized 11/09/2023 11/08/2024 1 1 * Outpatient (Routine) - Authorized Specialty Diagnoses / Procedures Referred By Contac t Referred To Contact Diagnoses Atrial Fibrillation Longstanding Persistent (HCC) Procedures ECG 12 Lead Ron Santana M.D., Ph.D. [address] [place] [phone] [facility] Referral ID Status Reason Start Date Expiration Date V isits Requested Visits Authorized [id number] Authorized 11/09/2023 11/08/2024 1 1 Encounter Details Date Type Department Care Team (Latest Contact Info) Description 11/08/2023 Clinical Communication Department of Cardiovascular Medicine in [place], [place] [address] [place] [phone] Vee Jalloh R.N. [address] [place] [phone] Social History Tobacco Use Types Packs/Day Years [...] week 06/30/2021 How often do you attend druze or jewish serv ices? Never 06/30/2021 Do you belong to any clubs o r organizations such as druze groups, unions, fraternal or athletic groups, or [...] and heating? Not hard at all 06/30/2021 [facility] - Occupational Stress [...] Sex Assigned at Male 06/30/2021 12:19 PM PHOTOCOMPOSING MACHINE OPERATOR Gender Identity Male 06/30/2021 12:19 PM PHOTOCOMPOSING MACHINE OPERATOR Sexual Orientation Straight 06/30/2021 12 :19 PM PHOTOCOMPOSING MACHINE OPERATOR documented as of this encounter Miscellaneous Notes * Telephone Encounter - Vee Jalloh R.N. - 11/08/2023 1:07 PM CDT Contact Chad Jensen regarding the scheduling of their PVI ablation. Mr. Jensen was referred byDr Santana for this procedure. He had virtual visit with Dr Santana 10/06/2023 and 08/14/2023, please see his notes for details of those visits.[id number] score of 4 for age over 75,HTN, [...] sedation for your procedure, so an adult transit mixer driver and supervision is required for 24 hours after the procedure. Please ensure you have someone present with you the day of your test. Calling in for your report time: The night before the procedure, please call the [facility] Service Line ([phone]) or the [facility] Backup Line ([phone]) between 7pm and midnight to find out what time to arrive. This automated phone line will have you type in your [facility] Number [phone] followed by # and birthdate (format of xx/xx/xxxx#) to determine your arrival time. On the day of your procedure: Check into [facility], [facility] 4th Floor (east elevators) at the [facility] 4D desk. You do not need to [...] to either live within 100 miles of [place], [place] or spend the night in [place], [place] post procedure. If you live within 100 miles and live greater than 30 minutes outside of [place], [place]); it is highly recommended that you spend the night in [place], [place]. -If you experience any complications or have questions post procedure overnight, please call the [facility] Supercharge Repair Supervisor at: [phone] and ask for [facility]. They will connect you to the on-call provider to assist you further. -You will receive sedation for your procedure, so an adult transit mixer driver and supervision is required for 24 [...] as get records faxed to us at [phone]. Another most common thing that can occur [...] first 3 months and they will determine senior living anticoagulation at your follow up visit. If [...] needed would be at their discretion. The [facility] is happy to address any current rhythm issues but all other cares or concerns should be directed to your local primary care team. Contact information: -If you have any further questions prior to your procedure, please contact the [facility] Nurse Line at [phone] (available M-F 8 am to 5 pm PHOTOCOMPOSING MACHINE OPERATOR). -If you have any concerns or questions regarding your schedule, please contact the scheduling team at [phone]. -If you have any concerns or questions about your insurance or procedure coverage, please contact the business office at [phone], option 1. [facility] Specific Instructions: -We encourage you to check [email or web address] for more information onthese instructions including visitor policies. The patient verbalized understanding and agreement with instructions. All questions were answered. documented in this encounter Plan of Treatment Upcoming Encounters Date Type Department Care Team (Latest Contact Info) Description 12/02/2023 10:20 AM CDT Telemedicine Department of Oncology in [address] [phone] Birdie Hurtado M.D. [address] [place] [phone] 01/10/2024 7:45 AM CDT Clinical Communication Virtual Review in [place], [place] [address] [place] [phone] 01/12/2024 9:40 AM CDT Ancillary Procedure Department of Cardiovascular Medicine in [place], [place] [address] [place] [phone] Ron Santana M.D., Ph.D. [address] [place] [phone] 01/12/2024 10:00 AM CDT Appointment Department of Cardiovascular Diseases in [place], [place] [address] [place] [address] Ron Santana M.D., Ph.D. [address] [place] [phone] 01/12/2024 10:30 AM CDT Appointment Department of Laboratory Medicine and Pathology, [facility] in [place], [place] [address] [place] [phone] Ron Santana M.D., Ph.D. [address] [place] [phone] 01/12/2024 2:00 PM CDT Appointment Department of Radiology, [facility] in [place], [place] [address] [place] [phone] Ron Santana M.D., Ph.D. [address] [place] [phone] 01/13/2024 8:00 AM CDT Office Visit Department of Cardiovascular Medicine in [place], [place] [address] [place] [phone] Marilu Castaneda P.A.-C., M.S. [address] [place] [phone] 01/13/2024 10:30 AM CDT Appointment Department of Cardiovascular Diseases in [place], [place] [address] [place] [phone] Ron Santana M.D., Ph.D. [address] [place] [phone] 01/16/2024 12:25 PM CDT Hospital Encounter Division of Cardiovascular Diseases in [place], [place] [address] [place] [phone] Ron Santana M.D., Ph.D. [address] [place] [phone] Atrial Fibrillation Longstanding Persistent (HCC) 01/16/2024 12:25 PM CDT - 01/16/2024 4:35 PM CDT Surgery Division of Cardiovascular Diseases in [place] [address] [place] [phone] Ron Santana M.D., Ph.D. [address] [place] [phone] PULSED FIELD ABLATION Scheduled Orders Name Type [...] (HCC) Expected: 01/12/2024, Expires: 11/07/2024 Thyroid Function [place] Routine Atrial Fibrillation Longstanding Persistent (HCC) [...] Total Score: 6 07/17/19 20 10:26 AM PHOTOCOMPOSING MACHINE OPERATOR documented as of this encounter Care Teams Night Monitor Relationship Specialty Start Date End Date Elsewhere, Pcp PCP - General Transliterator 06/27/19 documented as of this encounter
--- OUTSIDE RECORDS SUMMARY | 2023-11-22 12:32 | XMS_ITS | Referral Summary ---
Author Organization [facility] Address [address] [place] [address] Care Team Providers Care Virtual Assistant Name Role Phone Elsewhere, Pcp Primary Care Provider Unavailabl e Source Comments Patient records contain information from all sites at [facility]. For routine questions regarding patient records, call [phone] during business hours, M-F 8:00 AM - 5:00 PM Central Time. Record requests for emergency care only can be directed to [phone] at any time.[facility] Encounters Date Type Department Care Team Description 11/21/2023 Orders Only Department of Oncology in [address] [phone] Birdie Hurtado M.D. 11/17/2023 1:15 PM CDT Ancillary Procedure Department of Radiology in [place], [place] [address] [place] [phone] Birdie Hurtado M.D. 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 11/08/2023 Clinical Communication Department of Cardiovascular Medicine in [place], [place] [address] [place] [phone] Vee Jalloh R.N. 10/08/2023 Refill Department of Cardiovascular Diseases in [address] [phone] Flo Nazario M.D. Med Refill 10/06/2023 4:30 PM CDT Virtual Visit Department of Cardiovascular Medicine in [place], [place] [address] [place] [address] Ron Santana M.D., Ph.D. Atrial Fibrillation Unspecified (HCC) (Primary Dx) 10/06/2023 Orders Only Division of Cardiovascular Diseases in [place], [place] [address] [place] [phone] Ron Santana M.D., Ph.D. 10/06/2023 Clinical Communication Department of Cardiovascular Medicine in [address] [phone] Ron Santana M.D., Ph.D. Med Question (Calquence dosage / ablation list) 09/09/2023 9:25 AM CDT - 09/09/2023 11:59 PM CDT Hospital Encounter Department of Radiology in [address] [phone] Birdie Hurtado M.D. Malignant Neoplasm Of Disseminated (HCC); Malignant Neoplasm Of Lip Squamous Cell Discharge Disposition: Home or Self Care 09/09/2023 Orders Only Department of Oncology in [address] [address] Birdie Hurtado M.D. 09/09/2023 7:53 AM CDT - 09/09/2023 9:24 AM CDT Hospital Encounter Department of Radiology in [address] [phone] Birdie Hurtado M.D. Malignant Neoplasm Of Disseminated (HCC); Malignant Neoplasm Of Lip Squamous Cell Discharge Disposition: Home or Self Care 09/09/2023 7:53 AM CDT - 09/09/2023 9:24 AM CDT Hospital Encounter Department of Radiology in [address] [phone] Birdie Hurtado M.D. Malignant Neoplasm Of Disseminated (HCC); Malignant Neoplasm Of Lip Squamous Cell Discharge Disposition: Home or Self Care 09/09/2023 7:53 AM CDT - 09/09/2023 9:24 AM CDT Hospital Encounter Department of Radiology in [address] [phone] Birdie Hurtado M.D. Malignant Neoplasm Of Disseminated (HCC); Malignant Neoplasm Of Lip Squamous Cell Discharge Disposition: Home or Self Care 09/09/2023 Orders Only Department of Oncology in [address] [phone] Birdie Hurtado M.D. Malignant Neoplasm Of Disseminated (HCC) (Primary Dx); Malignant Neoplasm Of Lip Squamous Cell from Last 3 Months Allergies Active Allergy [...] How often do you attend congregational or tenriism serv ices? Never 06/30/2021 Do you belong [...] hard at all 06/30/2021 [facility] of Occupat ional Health - Occupational Stress [...] Sex Assigned at Male 06/30/2021 12:19 PM PUMP MECHANIC Gender Identity Male 06/30/2021 12:19 PM PUMP MECHANIC Sexual Orientation Straight 06/30/2021 12 :19 PM PUMP MECHANIC Last Filed Vital Signs Vital Sign Reading Time Taken Comments Blood Pressure 168/75 05/03/2023 4:01 PM PUMP MECHANIC Pulse 73 05/03/2023 4:01 PM PUMP MECHANIC Temperature 36.6 ??C (97.9 ??F) 05/03/2023 3:58 PM CS T Respiratory Rate 17 10/13/2022 5:15 PM CDT Oxygen Saturation 98% 05/03/2023 3:58 PM PUMP MECHANIC Room air Inhaled Oxygen Concentration - - Weight 81 kg (178 lb 9.2 oz) 05/03/2023 3:58 PM PUMP MECHANIC Height 179 cm (5' 10.47) 04/02/2022 1:10 PM CDT Body Mass Index 25.28 04/02/2022 1:10 PM CDT Plan of Treatment Upcoming Encounters Date Type Department Care Team (Latest Contact Info) Description 12/02/2023 10:20 AM CDT Telemedicine Department of Oncology in [address] [phone] Birdie Hurtado M.D. [address] [place] [phone] 01/10/2024 7:45 AM CDT Clinical Communication Virtual Review in [place], [place] 200 [place] [address] 01/12/2024 9:40 AM CDT Ancillary Procedure Department of Cardiovascular Medicine in [place], [place] [address] [place] [phone] Ron Santana M.D., Ph.D. [address] [place] [phone] 01/12/2024 10:00 AM CDT Appointment Department of Cardiovascular Diseases in [place], [place] [address] [place] [phone] Rno Santana M.D., Ph.D. [address] [place] [phone] 01/12/2024 10:30 AM CDT Appointment Department of Laboratory Medicine and Pathology, [facility], in [place], [place] [address] [place] [phone] Ron Santana M.D., Ph.D. [address] [place] [phone] 01/12/2024 2:00 PM CDT Appointment Department of Radiology, [facility], in [place], [place] [address] [place] [phone] Ron Santana M.D., Ph.D. [address] [place] [phone] 01/13/2024 8:00 AM CDT Office Visit Department of Cardiovascular Medicine in [place], [place] [address] [place] [phone] Marilu Castaneda P.A.-C., M.S. [address] [place] [phone] 01/13/2024 10:30 AM CDT Appointment Department of Cardiovascular Diseases in [place] [id number] [place] [phone] Ron Santana M.D., Ph.D. [address] [place] [phone] 01/16/2024 12:25 PM CDT Hospital Encounter Division of Cardiovascular Diseases in [address] [phone] Ron Santana M.D., Ph.D. [address] [place] [phone] Atrial Fibrillation Longstanding Persistent (HCC) 01/16/2024 12:25 PM CDT - 01/16/2024 4:35 PM CDT Surgery Division of Cardiovascular Diseases in [address] [phone] Ron Santana M.D., Ph.D. [address] [place] [phone] PULSED FIELD ABLATION Medical Devices Implanted Type Area Android Ui Developer Device Identifier Shelf Expiration Date Model / Serial / Lot Robert Taniara Rupinder Ames Xtr - [id number] Implanted:Qty : 1 on 06/28/2019 by Hernandez Echevarria M.D. 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 For example, subcarinal lymph node () measures 34 mm compared to 32 mm in the previous CT. Right lower paratracheal lymph node (2/37) measures 29 mm compared to 25 mm in the previous CT. 13 mm left axillary lymph node (2/35) previously measured 11 mm. 11 mm left supraclavicular lymph node (2/13) is unchanged. Visualized thyroid gland is [...] if requested. Procedure Note Art Elise M.B.B.S., Calixto. - 11/17/2023 EXAM: INTERPRETATION OF OUTSIDE CT [...] Provider Not In System IMG CT PROCEDURES [facility] NA * Interpretation of Outside CT Abdomen [...] mass consistent with treatedlymphoma. Birdie Hurtado M.D. [facility] [place] PROCEDURES * Interpretation of Outside CT [...] CLL versus metastatic disease. Birdie Hurtado M.D. [facility] [place] PROCEDURES * Interpretation of Outside NM [...] M.D. - 09/09/2023 EXAM: INTERPRETATION OF OUTSIDE [place] PET SCAN dated 05/12/2023. TECHNIQUE: F-18 Fluorodeoxyglucose [...] recommended. Birdie Hurtado M.D. IMG [place] PROCEDURES * CT SOFT TISSUE NECK [...] Provider Not In System IMG CT PROCEDURES [facility] NA * Creatinine with Estimated GFR (05/23/2023 8:43 AM PUMP MECHANIC) Creatinine 1.10 0.74 - 1.35 mg/dL 05/23/2023 9:50 AM PUMP MECHANIC DTL Estimated GFR (eGFR) 69 >=60 mL/min/BSA 05/23/2023 9:50 AM PUMP MECHANIC DTL Comment: Estimated GFR calculated using the 2020 CKD_EPI creatinine equation. Blood (Blood, Venous) 05/23/2023 8:43 AM PUMP MECHANIC 05/23/2023 9:27 AM PUMP MECHANIC Karlie Escoto M.D. LAB BLOOD ADD-ON [facility] [address] [place] [address], [facility] DTL [facility] [address] [place] [address] * Potassium (10/26/2022 11:31 AM CDT) Potassium, P 4.4 3.6 - 5.2 mmol/L 10/26/2022 11:56 AM CDT CNFL Blood (Blood, Venous) 10/26/2022 11:31 AM CDT 10/26/2022 11:34 AM CDT Ron Santana M.D., Ph.D. LAB BLOOD AD D-ON [facility] [address] [place] [address], [facility] CNFL [facility] in [address] [address] * (ABNORMAL) Basic Metabolic Panel (10/13/2022 12:40 [...] Ivone Blunt M.D. LAB BLOOD ADD- ON [facility] [address] [place] [address], [facility] STMA [facility] [facility] [place] [address] [place] [address] from Last 3 Months or Most Recently Relevant to Health Maintenance Additional Health Concerns Infection Onset Date Last Indicated Protective Environment 09/20/2022 3 Advance Directives For more information, please contact: [phone] * Full Code (Latest Code Status on File) Date Activated Date Inactivated Comments 01/06/2022 5:12 PM 01/09/2022 4:47 PM Question Answer Comments Full Code: Discussed * Full Code Date Activated Date Inactivated Comments 06/28/2019 12:14 PM 06/29/2019 2:37 PM Question Answer Comments Full Code: Discussed Care Teams Virtual Assistant Relationship Specialty Start Date End Date Elsewhere, Pcp PCP - General Pastry Supervisor 06/27/19
--- OUTSIDE RECORDS SUMMARY | 2023-11-22 12:33 | XMS_ITS | Encounter Summary ---
Author Organization [facility] Address [address] [place] [address] Care Team Providers Care Mail Distribution Scheme Examiner Name Role Phone Elsewhere, Pcp Primary Care Provider Unavailabl e Encounter Details Date Type Department Care Team (Late st Contact Info) Description 08/14/2023 Orders Only Division of Cardiovascular Diseases in [place], [place] [address] [place] [phone] Ron Santana M.D., Ph.D. [address] [place] [phone] Atrial Fibrillation Unspecified (HCC) (Primary Dx) Social [...] week 06/30/2021 How often do you attend confucianist or worship serv ices? Never 06/30/2021 Do you belong to any clubs o r organizations such as confucianist groups, unions, fraternal or athletic groups, or [...] heating? Not hard at all 06/30/2021 [facility] of Occupat ional Health - Occupational Stress [...] place to sleep or slept in a jail (including now)? No 06/30/2021 Depression Answer Date [...] Sex Assigned at Male 06/30/2021 12:19 PM LAUNDRY OR DRY CLEANERS COUNTER CLERK Gender Identity Male 06/30/2021 12:19 PM LAUNDRY OR DRY CLEANERS COUNTER CLERK Sexual Orientation Straight 06/30/2021 12 :19 PM LAUNDRY OR DRY CLEANERS COUNTER CLERK documented as of this encounter Plan of Treatment Upcoming Encounters Date Type Department Care Team (Latest Contact Info) Description 12/02/2023 10:20 AM CDT Telemedicine Department of Oncology in [place], [place] [address] [place] [phone] Birdie Hurtado M.D. [address] [place] [phone] 01/10/2024 7:45 AM CDT Clinical Communication Virtual Review in [address] [phone] 01/12/2024 9:40 AM CDT Ancillary Procedure Department of Cardiovascular Medicine in [place], [place] [address] [place] [phone] Ron Santana M.D., Ph.D. [address] [place] [phone] 01/12/2024 10:00 AM CDT Appointment Department of Cardiovascular Diseases in [place], [place] [address] [place] [phone] Ron Santana M.D., Ph.D. [address] [place] [phone] 01/12/2024 10:30 AM CDT Appointment Department of Laboratory Medicine and Pathology, [facility] in [place], [place] [address] [place] [phone] Ron Santana M.D., Ph.D. [address] [place] [phone] 01/12/2024 2:00 PM CDT Appointment Department of Radiology, [facility] in [place], [place] [address] [place] [phone] Ron Santana M.D., Ph.D. [address] [place] [phone] 01/13/2024 8:00 AM CDT Office Visit Department of Cardiovascular Medicine in [place], [place] [address] [place] [phone] Marilu Castaneda P.A.hCaro., M.S. [address] [place] [phone] 01/13/2024 10:30 AM CDT Appointment Department of Cardiovascular Diseases in [place], [place] [address] [place] [phone] Ron Santana M.D., Ph.D. [address] [place] [phone] 01/16/2024 12:25 PM CDT Hospital Encounter Division of Cardiovascular Diseases in [address] [phone] Ron Santana M.D., Ph.D. [address] [place] [phone] Atrial Fibrillation Longstanding Persistent (HCC) 01/16/2024 12:25 PM CDT - 01/16/2024 4:35 PM CDT Surgery Division of Cardiovascular Diseases in [address] [phone] Ron Santana M.D., Ph.D. [address] [place] [phone] PULSED FIELD ABLATION documented as of this encounter Visit Diagnoses Diagnosis Atrial Fibrillation Unspecified (HCC)- Primary Atrial Fibrillation Longstanding Persistent (HCC)- Primary Atrial Fibrillation Longstanding Persistent (HCC) documented in this encounter Additional Health Concerns Infection Onset Date Last Indicated Resolved Time Protective Environment 09/20/2022 09/20/2022 Assessment Noted Time PHQ-9 Depression Total Score: 6 07/17/19 20 10:26 AM LAUNDRY OR DRY CLEANERS COUNTER CLERK documented as of this encounter Care Teams Mail Distribution Scheme Examiner Relationship Specialty Start Date End Date Elsewhere, Pcp PCP - General Perfume Compounder 06/27/19 documented as of this encounter
--- OUTSIDE RECORDS SUMMARY | 2023-11-22 12:33 | XMS_ITS | Encounter Summary ---
Author Organization [facility] Address [address] [place] [address] Care Team Providers Care Substation Electrician Supervisor Name Role Phone Elsewhere, Pcp Primary Care Provider Unavailabl e Encounter Details Date Type Department Care Team (Late st Contact Info) Description 09/09/2023 Orders Only Department of Oncology in [place], [place] [address] [place] [phone] Birdie Hurtado M.D. [address] [place] [phone] Social History Tobacco Use Types [...] week 06/30/2021 How often do you attend pentecostal or mu-ism serv ices? Never 06/30/2021 Do you belong to any clubs o r organizations such as pentecostal groups, unions, fraternal or athletic groups, or [...] place to sleep or slept in a prison (including now)? No 06/30/2021 Depression Answer Date [...] Sex Assigned at Male 06/30/2021 12:19 PM REAL ESTATE ASSISTANT Gender Identity Male 06/30/2021 12:19 PM REAL ESTATE ASSISTANT Sexual Orientation Straight 06/30/2021 12 :19 PM REAL ESTATE ASSISTANT documented as of this encounter Plan of Treatment Upcoming Encounters Date Type Department Care Team (Latest Contact Info) Description 12/02/2023 10:20 AM CDT Telemedicine Department of Oncology in [address] [phone] Birdie Hurtado M.D. [address] [place] [phone] 01/10/2024 7:45 AM CDT Clinical Communication Virtual Review in [place], [place] [address] [place] [phone] 01/12/2024 9:40 AM CDT Ancillary Procedure Department of Cardiovascular Medicine in [place], [place] [address] [place] [phone] Rno Santana M.D., Ph.D. [address] [place] [phone] 01/12/2024 10:00 AM CDT Appointment Department of Cardiovascular Diseases in [place], [place] [address] [place] [phone] Ron Santana M.D., Ph.D. [address] [place] [phone] 01/12/2024 10:30 AM CDT Appointment Department of Laboratory Medicine and Pathology, [facility] in [place], [place] [address] [place] [phone] Rno Santana M.D., Ph.D. [address] [place] [phone] 01/12/2024 2:00 PM CDT Appointment Department of Radiology, [facility] in [place], [place] [address] [place] [phone] Ron Santana M.D., Ph.D. [address] [place] [phone] 01/13/2024 8:00 AM CDT Office Visit Department of Cardiovascular Medicine in [place], [place] [address] [place] [phone] Marilu Castaneda P.A.Charo., M.S. [address] [place] [phone] 01/13/2024 10:30 AM CDT Appointment Department of Cardiovascular Diseases in [place], [place] [address] [place] [phone] Ron Santana M.D., Ph.D. [address] [place] [phone] 01/16/2024 12:25 PM CDT Hospital Encounter Division of Cardiovascular Diseases in [place] [phone] [place] [phone] Ron Santana M.D., Ph.D. [address] [place] [phone] Atrial Fibrillation Longstanding Persistent (HCC) 01/16/2024 12:25 PM CDT - 01/16/2024 4:35 PM CDT Surgery Division of Cardiovascular Diseases in [address] [phone] Ron Santana M.D., Ph.D. [address] [place] [phone] PULSED FIELD ABLATION documented as of this encounter Visit Diagnoses Not on filedocumented in this encounter Additional Health Concerns Infection Onset Date Last Indicated Resolved Time Protective Environment 09/20/2022 09/20/2022 Assessment Noted Time PHQ-9 Depression Total Score: 6 07/17/19 20 10:26 AM REAL ESTATE ASSISTANT documented as of this encounter Care Teams Substation Electrician Supervisor Relationship Specialty Start Date End Date Elsewhere, Pcp PCP - General Central Communications Specialist 06/27/19 documented as of this encounter
--- OUTSIDE RECORDS SUMMARY | 2023-11-22 12:33 | XMS_ITS | Encounter Summary ---
Author Organization [facility] Address [address] [place] [address] Care Team Providers Care Model Maker Scale Name Role Phone Elsewhere, Pcp Primary Care Provider Unavailabl e Encounter Details Date Type Department Care Team (Late st Contact Info) Description 09/09/2023 Orders Only Department of Oncology in [place], [place] [address] [place] [phone] Birdie Hurtado M.D. [address] [place] [phone] Malignant Neoplasm Of Disseminated (HCC) [...] week 06/30/2021 How often do you attend baptism or judaism serv ices? Never 06/30/2021 Do you belong to any clubs o r organizations such as baptism groups, unions, fraternal or athletic groups, or [...] and heating? Not hard at all 06/30/2021 [facility] of Occupat ional Health - Occupational [...] Sex Assigned at Male 06/30/2021 12:19 PM FENCE INSTALLER FOREMAN Gender Identity Male 06/30/2021 12:19 PM FENCE INSTALLER FOREMAN Sexual Orientation Straight 06/30/2021 12 :19 PM FENCE INSTALLER FOREMAN documented as of this encounter Plan of Treatment Upcoming Encounters Date Type Department Care Team (Latest Contact Info) Description 12/02/2023 10:20 AM CDT Telemedicine Department of Oncology in [place], [place] [address] [place] [phone] Birdie Hurtado M.D. [address] [place] [phone] 01/10/2024 7:45 AM CDT Clinical Communication Virtual Review in [place], [place] [address] [place] [phone] 01/12/2024 9:40 AM CDT Ancillary Procedure Department of Cardiovascular Medicine in [place], [place] [address] [place] [phone] Ron Santana M.D., Ph.D. [address] [place] [phone] 01/12/2024 10:00 AM CDT Appointment Department of Cardiovascular Diseases in [place], [place] [address] [place] [phone] Ron Santana M.D., Ph.D. [address] [place] [phone] 01/12/2024 10:30 AM CDT Appointment Department of Laboratory Medicine and Pathology, [facility] in [place], [place] [address] [place] [phone] Ron Santana M.D., Ph.D. [address] [place] [phone] 01/12/2024 2:00 PM CDT Appointment Department of Radiology, [facility] in [place], [place] [address] [place] [phone] Ron Santana M.D., Ph.D. [address] [place] [phone] 01/13/2024 8:00 AM CDT Office Visit Department of Cardiovascular Medicine in [place], [place] [address] [place] [phone] Marilu Castaneda P.A.Charo., M.S. [address] [place] [phone] 01/13/2024 10:30 AM CDT Appointment Department of Cardiovascular Diseases in [place], [place] [address] [place] [phone] Ron Santana M.D., Ph.D. [address] [place] [phone] 01/16/2024 12:25 PM CDT Hospital Encounter Division of Cardiovascular Diseases in [place], [place] [address] [place] [phone] Ron Santana M.D., Ph.D. [address] [place] [phone] Atrial Fibrillation Longstanding Persistent (HCC) 01/16/2024 12:25 PM CDT - 01/16/2024 4:35 PM CDT Surgery Division of Cardiovascular Diseases in [address] [phone] Ron Santana M.D., Ph.D. [address] [place] [phone] PULSED FIELD ABLATION documented as of this encounter Results * Interpretation of Outside CT Neck (09/09/2023 8:47 AM CDT) Anatomical Region Laterality Modality Neck, [facility] , [facility], [facility]ad[facility], Other N/A Computed Tomography Impressions 09/09/2023 9:40 [...] CLL versus metastatic disease. Birdie Hurtado M.D. 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 4. [...] M.D. - 09/09/2023 EXAM: INTERPRETATION OF OUTSIDE OR PET SCAN dated 05/12/2023. TECHNIQUE: F-18 Fluorodeoxyglucose [...] process. Attention onfollow-up recommended. Birdie Hurtado M.D. [facility] [place] PROCEDURES documented in this encounter Visit [...] Total Score: 6 07/17/19 20 10:26 AM FENCE INSTALLER FOREMAN documented as of this encounter Care Teams Model Maker Scale Relationship Specialty Start Date End Date Elsewhere, Pcp PCP - General Line Erector Apprentice 06/27/19 documented as of this encounter
--- OUTSIDE RECORDS SUMMARY | 2023-11-22 12:33 | XMS_ITS | Encounter Summary ---
Author Organization [facility] Address [address] [place] [address] Care Team Providers Care Multiple Cut Off Saw Operator Name Role Phone Elsewhere, Pcp Primary Care Provider Unavailabl e Reason for Visit * Reason Comments Med Refill Encounter Details Date Type Department Care Team (Late st Contact Info) Description 10/08/2023 Refill Department of Cardiovascular Diseases in [address] [phone] Flo Nazario M.D. [address] [place] [address] Med Refill Social History Tobacco Use Types [...] week 06/30/2021 How often do you attend adventist or voodoo serv ices? Never 06/30/2021 Do you belong to any clubs o r organizations such as adventist groups, unions, fraternal or athletic groups, or [...] and heating? Not hard at all 06/30/2021 [facility] [place] of Occupat ional Health - Occupational Stress [...] Sex Assigned at Male 06/30/2021 12:19 PM INSIDE SALES SPECIALIST Gender Identity Male 06/30/2021 12:19 PM INSIDE SALES SPECIALIST Sexual Orientation Straight 06/30/2021 12 :19 PM INSIDE SALES SPECIALIST documented as of this encounter Plan of Treatment Upcoming Encounters Date Type Department Care Team (Latest Contact Info) Description 12/02/2023 10:20 AM CDT Telemedicine Department of Oncology in [place], [place] [address] [place] [phone] Birdie Hurtado M.D. [address] [place] [phone] 01/10/2024 7:45 AM CDT Clinical Communication Virtual Review in [address] [phone] 01/12/2024 9:40 AM CDT Ancillary Procedure Department of Cardiovascular Medicine in [place], [place] [address] [place] [phone] Ron Santana M.D., Ph.D. [address] [place] [phone] 01/12/2024 10:00 AM CDT Appointment Department of Cardiovascular Diseases in [place], [place] [address] [place] [phone] Ron Santana M.D., Ph.D. [address] [place] [phone] 01/12/2024 10:30 AM CDT Appointment Department of Laboratory Medicine and Pathology, [facility] in [place], [place] [address] [place] [phone] Ron Santana M.D., Ph.D. [address] [place] [phone] 01/12/2024 2:00 PM CDT Appointment Department of Radiology, [facility] in [place], [place] [address] [place] [phone] Ron Santana M.D., Ph.D. [address] [place] [phone] 01/13/2024 8:00 AM CDT Office Visit Department of Cardiovascular Medicine in [place], [place] [address] [place] [phone] Marilu Castaneda P.A.Charo., M.S. [address] [place] [phone] 01/13/2024 10:30 AM CDT Appointment Department of Cardiovascular Diseases in [place], [place] [address] [place] [phone] Ron Santana M.D., Ph.D. [address] [place] [phone] 01/16/2024 12:25 PM CDT Hospital Encounter Division of Cardiovascular Diseases in [address] [phone] Ron Santana M.D., Ph.D. [address] [place] [phone] Atrial Fibrillation Longstanding Persistent (HCC) 01/16/2024 12:25 PM CDT - 01/16/2024 4:35 PM CDT Surgery Division of Cardiovascular Diseases in [address] [phone] Ron Santana M.D., Ph.D. [address] [place] [phone] PULSED FIELD ABLATION documented as of this encounter Visit Diagnoses Not on filedocumented in this encounter Additional Health Concerns Infection Onset Date Last Indicated Resolved Time Protective Environment 09/20/2022 09/20/2022 Assessment Noted Time PHQ-9 Depression Total Score: 6 07/17/19 20 10:26 AM INSIDE SALES SPECIALIST documented as of this encounter Care Teams Multiple Cut Off Saw Operator Relationship Specialty Start Date End Date Elsewhere, Pcp PCP - General Drywall Metal Stud Worker 06/27/19 documented as of this encounter
--- OUTSIDE RECORDS SUMMARY | 2023-11-22 12:33 | XMS_ITS | Encounter Summary ---
Author Organization [facility] Address [address] [place] [address] Care Team Providers Care Ramp Service Employee Name Role Phone Elsewhere, Pcp Primary Care Provider Unavailabl e Encounter Details Date Type Department Care Team (Latest Contact Info) Description 09/09/2023 7:53 AM CDT - 09/09/2023 9:24 AM CDT Hospital Encounter Department of Radiology in [address] [phone] Birdie Hurtado M.D. [address] [place] [phone] Malignant Neoplasm Of Disseminated (HCC); Malignant [...] week 06/30/2021 How often do you attend caodaism or samaritan serv ices? Never 06/30/2021 Do you belong to any clubs o r organizations such as caodaism groups, unions, fraternal or athletic groups, or [...] and heating? Not hard at all 06/30/2021 [facility] [place] of Occupat ional Health - Occupational Stress [...] Sex Assigned at Male 06/30/2021 12:19 PM GARDEN EQUIPMENT MECHANIC Gender Identity Male 06/30/2021 12:19 PM GARDEN EQUIPMENT MECHANIC Sexual Orientation Straight 06/30/2021 12 :19 PM GARDEN EQUIPMENT MECHANIC documented as of this encounter Medications at [...] AM CDT Telemedicine Department of Oncology in [place], [place] [address] [place] [phone] Birdie Hurtado M.D. [address] [place] [phone] 01/10/2024 7:45 AM CDT Clinical Communication Virtual Review in [place], [place] 200 [place] [address] 01/12/2024 9:40 AM CDT Ancillary Procedure Department of Cardiovascular Medicine in [place], [place] [address] [place] [phone] Ron Santana M.D., Ph.D. [address] [place] [phone] 01/12/2024 10:00 AM CDT Appointment Department of Cardiovascular Diseases in [place], [place] [address] [place] [phone] Ron Santana M.D., Ph.D. [address] [place] [phone] 01/12/2024 10:30 AM CDT Appointment Department of Laboratory Medicine and Pathology, [facility] in [place], [place] [address] [place] [phone] Ron Santana M.D., Ph.D. [address] [place] [phone] 01/12/2024 2:00 PM CDT Appointment Department of Radiology, [facility] in [place], [place] [address] [place] [phone] Ron Santana M.D., Ph.D. [address] [place] [phone] 01/13/2024 8:00 AM CDT Office Visit Department of Cardiovascular Medicine in [place], [place] [address] [place] [phone] Marilu Castaneda P.A.-C., M.S. [address] [place] [phone] 01/13/2024 10:30 AM CDT Appointment Department of Cardiovascular Diseases in [place] [phone] [place] [phone] Ron Santana M.D., Ph.D. [address] [place] [phone] 01/16/2024 12:25 PM CDT Hospital Encounter Division of Cardiovascular Diseases in [address] [phone] Ron Santana M.D., Ph.D. [address] [place] [phone] Atrial Fibrillation Longstanding Persistent (HCC) 01/16/2024 12:25 PM CDT - 01/16/2024 4:35 PM CDT Surgery Division of Cardiovascular Diseases in [address] [phone] Ron Santana M.D., Ph.D. [address] [place] [phone] PULSED FIELD ABLATION documented as of this [...] CLL versus metastatic disease. Birdie Hurtado M.D. 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
--- OUTSIDE RECORDS SUMMARY | 2023-11-22 12:33 | XMS_ITS | Encounter Summary ---
Author Organization [facility] Address [address] [place] [address] Care Team Providers Care Compressor Stations Superintendent Name Role Phone Elsewhere, Pcp Primary Care Provider Unavailabl e Reason for Visit * Reason Onset Date Comments Med Question 10/06/2023 Calquence dosage / ablation list Encounter Details Date Type Department Care Team (Latest Contact Info) Description 10/06/2023 Clinical Communication Department of Cardiovascular Medicine in [place], [place] [address] [place] [address] Ron Santana M.D., Ph.D. [address] [place] [address] Med Question (Calquence dosage / ablation list) [...] week 06/30/2021 How often do you attend uatsdin or methodist serv ices? Never 06/30/2021 Do you belong to any clubs o r organizations such as uatsdin groups, unions, fraternal or athletic groups, or [...] heating? Not hard at all 06/30/2021 [facility] [place] of Occupat ional Health - Occupational [...] place to sleep or slept in a fpc (including now)? No 06/30/2021 Depression Answer Date [...] Sex Assigned at Male 06/30/2021 12:19 PM CARDIOLOGY MANAGER Gender Identity Male 06/30/2021 12:19 PM CARDIOLOGY MANAGER Sexual Orientation Straight 06/30/2021 12 :19 PM CARDIOLOGY MANAGER documented as of this encounter Miscellaneous Notes [...] AM CDT Telemedicine Department of Oncology in [address] [phone] Birdie Hurtado M.D. [address] [place] [phone] 01/10/2024 7:45 AM CDT Clinical Communication Virtual Review in [address] [phone] 01/12/2024 9:40 AM CDT Ancillary Procedure Department of Cardiovascular Medicine in [place], [place] [address] [place] [phone] Ron Santana M.D., Ph.D. [address] [place] [phone] 01/12/2024 10:00 AM CDT Appointment Department of Cardiovascular Diseases in [place], [place] [address] [place] [phone] Ron Santana M.D., Ph.D. [address] [place] [phone] 01/12/2024 10:30 AM CDT Appointment Department of Laboratory Medicine and Pathology, [facility] in [place], [place] [address] [place] [phone] Ron Santana M.D., Ph.D. [address] [place] [phone] 01/12/2024 2:00 PM CDT Appointment Department of Radiology, [facility], in [place], [place] [address] [place] [phone] Ron Santana M.D., Ph.D. [address] [place] [phone] 01/13/2024 8:00 AM CDT Office Visit Department of Cardiovascular Medicine in [place], [place] [address] [place] [phone] Marilu Castaneda P.A.-C., M.S. [address] [place] [phone] 01/13/2024 10:30 AM CDT Appointment Department of Cardiovascular Diseases in [place] [address] [place] [phone] Ron Santana M.D., Ph.D. [address] [place] [phone] 01/16/2024 12:25 PM CDT Hospital Encounter Division of Cardiovascular Diseases in [address] [phone] Ron Santana M.D., Ph.D. [address] [place] [phone] Atrial Fibrillation Longstanding Persistent (HCC) 01/16/2024 12:25 PM CDT - 01/16/2024 4:35 PM CDT Surgery Division of Cardiovascular Diseases in [address] [phone] Ron Santana M.D., Ph.D. [address] [place] [phone] PULSED FIELD ABLATION documented as of this encounter Visit Diagnoses Not on filedocumented in this encounter Additional Health Concerns Infection Onset Date Last Indicated Resolved Time Protective Environment 09/20/2022 09/20/2022 Assessment Noted Time PHQ-9 Depression Total Score: 6 07/17/19 20 10:26 AM CARDIOLOGY MANAGER documented as of this encounter Care Teams Compressor Stations Superintendent Relationship Specialty Start Date End Date Elsewhere, Pcp PCP - General Floor Care Technician 06/27/19 documented as of this encounter
--- OUTSIDE RECORDS SUMMARY | 2023-11-22 12:33 | XMS_ITS | Encounter Summary ---
Author Organization [facility] Address [address] [place] [address] Care Team Providers Care Senior Software Systems Engineer Name Role Phone Elsewhere, Pcp Primary Care Provider Unavailabl e Encounter Details Date Type Department Care Team (Latest Contact Info) Description 09/09/2023 7:53 AM CDT - 09/09/2023 9:24 AM CDT Hospital Encounter Department of Radiology in [address] [phone] Birdie Hurtado M.D. [address] [place] [phone] Malignant Neoplasm Of Disseminated (HCC); Malignant [...] How often do you attend confucianist or yarsani serv ices? Never 06/30/2021 Do you belong [...] and heating? Not hard at all 06/30/2021 [facility] [place] of Occupat ional Health - Occupational Stress [...] place to sleep or slept in a senior living (including now)? No 06/30/2021 Depression Answer Date [...] Sex Assigned at Male 06/30/2021 12:19 PM VOCATIONAL TRAINER Gender Identity Male 06/30/2021 12:19 PM VOCATIONAL TRAINER Sexual Orientation Straight 06/30/2021 12 :19 PM VOCATIONAL TRAINER documented as of this encounter Medications at [...] AM CDT Telemedicine Department of Oncology in [place], [place] [address] [place] [phone] Birdie Hurtado M.D. 701 [place] [phone] 01/10/2024 7:45 AM CDT Clinical Communication Virtual Review in [place], [place] 200 [place] [phone] 01/12/2024 9:40 AM CDT Ancillary Procedure Department of Cardiovascular Medicine in [place], [place] [address] [place] [phone] Ron Santana M.D., Ph.D. [address] [place] [phone] 01/12/2024 10:00 AM CDT Appointment Department of Cardiovascular Diseases in [place], [place] [address] [place] [phone] Ron Santana M.D., Ph.D. [address] [place] [phone] 01/12/2024 10:30 AM CDT Appointment Department of Laboratory Medicine and Pathology, [facility] in [place], [place] [address] [place] [phone] Ron Santana M.D., Ph.D. [address] [place] [phone] 01/12/2024 2:00 PM CDT Appointment Department of Radiology, [facility] in [place], [place] [address] [place] [phone] Ron Santana M.D., Ph.D. [address] [place] [phone] 01/13/2024 8:00 AM CDT Office Visit Department of Cardiovascular Medicine in [place], [place] [address] [place] [phone] Marilu Castaneda P.A.-C., M.S. [address] [place] [phone] 01/13/2024 10:30 AM CDT Appointment Department of Cardiovascular Diseases in [place] [address] [place] [phone] Ron Santana M.D., Ph.D. [address] [place] [phone] 01/16/2024 12:25 PM CDT Hospital Encounter Division of Cardiovascular Diseases in [address] [phone] Ron Santana M.D., Ph.D. [address] [place] [phone] Atrial Fibrillation Longstanding Persistent (HCC) 01/16/2024 12:25 PM CDT - 01/16/2024 4:35 PM CDT Surgery Division of Cardiovascular Diseases in [address] [phone] Ron Santana M.D., Ph.D. [address] [place] [phone] PULSED FIELD ABLATION documented as of this [...] mass has significantly decreased in size from 2019 measuring 5.1 cm x 3.2 cm with [...] process. Attention onfollow-up recommended. Birdie Hurtado M.D. 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
--- OUTSIDE RECORDS SUMMARY | 2023-11-22 12:33 | XMS_ITS | Encounter Summary ---
Author Organization [facility] Address [address] [place] [address] Care Team Providers Care Can Operator Name Role Phone Elsewhere, Pcp Primary Care Provider Unavailabl e Reason for Referral * Outpatient (Routine) - Closed Specialty Diagnoses / Procedures Referred By Oliverio t Referred To Contact Cardiovascular Disease Ron Santana M.D., Ph.D. [address] [place] [phone] [facility] Referral ID Status Reason Start Date Expiration Date Visits Re quested Visits Authorized [id number] Closed 10/06/2023 04/06/2025 1 1 Encounter Details Date Type Department Care Team (Late st Contact Info) Description 10/06/2023 Orders Only Division of Cardiovascular Diseases in [place], [place] [address] [place] [phone] Ron Santana M.D., Ph.D. [address] [place] [phone] Social History Tobacco Use Types Packs/Day Years [...] week 06/30/2021 How often do you attend worship or anabaptism serv ices? Never 06/30/2021 Do you belong to any clubs o r organizations such as worship groups, unions, fraternal or athletic groups, or [...] and heating? Not hard at all 06/30/2021 [facility] [place] of Occupat ional Health - Occupational Stress [...] Sex Assigned at Male 06/30/2021 12:19 PM PRINT PROJECT MANAGER Gender Identity Male 06/30/2021 12:19 PM PRINT PROJECT MANAGER Sexual Orientation Straight 06/30/2021 12 :19 PM PRINT PROJECT MANAGER documented as of this encounter Plan of Treatment Upcoming Encounters Date Type Department Care Team (Latest Contact Info) Description 12/02/2023 10:20 AM CDT Telemedicine Department of Oncology in [place], [place] [address] [place] [phone] Birdie Hurtado M.D. [address] [place] [phone] 01/10/2024 7:45 AM CDT Clinical Communication Virtual Review in [place], [place] 200 [place] [address] 01/12/2024 9:40 AM CDT Ancillary Procedure Department of Cardiovascular Medicine in [place], [place] [address] [place] [phone] Ron Santana M.D., Ph.D. [address] [place] [phone] 01/12/2024 10:00 AM CDT Appointment Department of Cardiovascular Diseases in [place], [place] [address] [place] [phone] Ron Santana M.D., Ph.D. [address] [place] [phone] 01/12/2024 10:30 AM CDT Appointment Department of Laboratory Medicine and Pathology, [facility] in [place], [place] [address] [place] [phone] Ron Santana M.D., Ph.D. [address] [place] [phone] 01/12/2024 2:00 PM CDT Appointment Department of Radiology, [facility], in [place], [place] [address] [place] [phone] Ron Santana M.D., Ph.D. [address] [place] [phone] 01/13/2024 8:00 AM CDT Office Visit Department of Cardiovascular Medicine in [place], [place] [address] [place] [phone] Marilu Castaneda P.A.-C., M.S. [address] [place] [phone] 01/13/2024 10:30 AM CDT Appointment Department of Cardiovascular Diseases in [address] [phone] Ron Santana M.D., Ph.D. [address] [place] [phone] 01/16/2024 12:25 PM CDT Hospital Encounter Division of Cardiovascular Diseases in [address] [phone] Ron Santana M.D., Ph.D. [address] [place] [phone] Atrial Fibrillation Longstanding Persistent (HCC) 01/16/2024 12:25 PM CDT - 01/16/2024 4:35 PM CDT Surgery Division of Cardiovascular Diseases in [address] [phone] Ron Santana M.D., Ph.D. [address] [place] [phone] PULSED FIELD ABLATION Scheduled Referrals Name Type [...] Total Score: 6 07/17/19 20 10:26 AM PRINT PROJECT MANAGER documented as of this encounter Care Teams Can Operator Relationship Specialty Start Date End Date Elsewhere, Pcp PCP - General Special Education Administrator 06/27/19 documented as of this encounter
--- OUTSIDE RECORDS SUMMARY | 2023-11-22 12:33 | XMS_ITS | Clinical Summary ---
Author Organization [employer] [facility] Address [place], [place] [address] Care Team Providers Care Production Weigher Name Role Phone Nikki Reilly DO Primary Care Provider [phone] Allergies Active Allergy Reactions Criticality Noted Date [...] Encounters Date Type Department Care Team Description 11/10/2023 Orders Only [facility] Scanner 1 scan: (1-Ord) [place], CHEST ABDOMEN PELV W/CON, 11/10/2023 09/29/2023 Refill [facility] [address] [place] [address] Nikki Reilly, DO Refill Request (Tamsulosin) 09/07/2023 Refill [facility] [address] [place] [address] Nikki Reilly, DO Refill Request (Levothyroxine) 08/30/2023 Orders Only [facility] Scanner 1 scan: (1-Ord) [facility], CT-ST NECK W/ 86CC [place] 370, 08/30/2023 08/30/2023 Orders Only [facility] Scanner 1 scan: (1-Ord) [facility], CT CHEST ABDOMEN PELV W CON, 08/30/2023 08/30/2023 Orders Only [facility] Scanner 1 scan: (1-Ord) [facility], CT SOFT TISSUE NECK W CON , [...] Comments Blood Pressure 158/84 07/08/2023 11:24 AM MEDICAL IMAGING TECHNICIAN Pulse 72 07/08/2023 11:24 AM MEDICAL IMAGING TECHNICIAN Temperature 36.9 ??C (98.4 ??F) 04/23/2020 11:[address] Respiratory Rate 16 03/20/2020 2:20 PM CDT Oxygen Saturation 99% 07/08/2023 11:24 AM MEDICAL IMAGING TECHNICIAN Inhaled Oxygen Concentration - - Weight 79.8 kg (176 lb) 07/08/2023 11:24 AM MEDICAL IMAGING TECHNICIAN Height 175.2 cm (5' 8.98) 12/23/2022 9:23 [...] Procedure Name Priority Date/Time Associated Diagnosis Comments SCAN-CT INTERPRETATION 4 12:00 AM CDT SCAN-RADIOLOGY REPORT 08/30/2023 12:00 AM CDT SCAN-CT INTERPRETATION 4 12:00 AM CDT SCAN-CT INTERPRETATION 4 12:00 AM CDT ANTI HCV Routine 03/09/2018 10:39 AM CDT Need for hepatitis C screening test from Last 3 Months or Most Recently Relevant to Health Maintenance Results * SCAN-CT INTERPRETATION (11/10/2023 12:00 AM CDT) Only the most recent of3 resultswithin the time period is included. Anatomical Region Laterality Modality Other Scanner OTHER * SCAN-RADIOLOGY REPORT (08/30/2023 12:00 AM CDT) Anatomical Region Laterality Modality Other Scanner OTHER * ANTI HCV [09418.2] (03/09/2018 10:39 AM CDT) HEPATITIS C ANTIBODY Non-React [place] Non-React ir[place]a 03/09/2018 5:05 PM CDT [facility] Comment:Antibodies to HCV no t detected; does not exclude the possibility of exposure to HCV. Blood BLOOD SPECIMEN / Unknown Venipuncture / Unknown 03/09/2018 10:39 AM CDT 03/09/2018 10:39 AM CDT Ron Garcia MD SEND OUTS [facility] [address] [place] [address], [place] from Last 3 Months or Most Recently Relevant to Health Maintenance Advance Directives * Full Code (Latest Code Status on File) Date Activated Date Inactivated Comments 11/22/2011 11:07 AM 11/22/2011 3:00 PM * Full Code Date Activated Date Inactivated Comments 11/22/2011 9:03 AM 11/22/2011 11:07 AM Care Teams Production Weigher Relationship Specialty Start Date End Date Nikki Reilly DO [address] [place] [address] PCP - General Family Practice 12/15/22
--- OUTSIDE RECORDS SUMMARY | 2023-11-22 12:33 | XMS_ITS | Encounter Summary ---
Author Organization [facility] Address [address] [place] [address] Care Team Providers Care Mainstreaming Facilitator Name Role Phone Elsewhere, Pcp Primary Care Provider Unavailabl e Encounter Details Date Type Department Care Team (Late st Contact Info) Description 08/14/2023 Documentation Department of Cardiovascular Medicine in [place], [place] [address] [place] [phone] Ron Santana M.D., Ph.D. [address] [place] [address] Social History Tobacco Use Types Packs/Day Years [...] week 06/30/2021 How often do you attend presybeterian or restorationist serv ices? Never 06/30/2021 Do you belong to any clubs o r organizations such as presybeterian groups, unions, fraternal or athletic groups, or [...] heating? Not hard at all 06/30/2021 [facility] Occupat ional [facility] - [...] Sex Assigned at Male 06/30/2021 12:19 PM DIRECTOR CRITICAL CARE Gender Identity Male 06/30/2021 12:19 PM DIRECTOR CRITICAL CARE Sexual Orientation Straight 06/30/2021 12 :19 PM DIRECTOR CRITICAL CARE documented as of this encounter Progress Notes * Ron Santana M.D., Ph.D. - 08/14/2023 11:24 PM CDT I called Mr. Jensen via the [place] paging line up machine operator at [phone]. Mr. Jensen is a 77-year-old gentleman with [...] Santana M.D., Ph.D. CT CT Job ID: [id number] documented in this encounter Plan of Treatment Upcoming Encounters Date Type Department Care Team (Latest Contact Info) Description 12/02/2023 10:20 AM CDT Telemedicine Department of Oncology in [place], [place] [address] [place] [phone] Birdie Hurtado M.D. [address] [place] [phone] 01/10/2024 7:45 AM CDT Clinical Communication Virtual Review in [place], [place] 200 [place] [address] 01/12/2024 9:40 AM CDT Ancillary Procedure Department of Cardiovascular Medicine in [place], [place] [address] [place] [phone] Ron Santana M.D., Ph.D. [address] [place] [phone] 01/12/2024 10:00 AM CDT Appointment Department of Cardiovascular Diseases in [place], [place] [address] [place] [phone] Ron Santana M.D., Ph.D. [address] [place] [phone] 01/12/2024 10:30 AM CDT Appointment Department of Laboratory Medicine and Pathology, [facility] in [place], [place] [address] [place] [phone] Ron Santana M.D., Ph.D. [address] [place] [phone] 01/12/2024 2:00 PM CDT Appointment Department of Radiology, [facility], in [place], [place] [address] [place] [phone] Ron Santana M.D., Ph.D. [address] [place] [phone] 01/13/2024 8:00 AM CDT Office Visit Department of Cardiovascular Medicine in [address] [phone] Marilu Castaneda P.A.-C., M.S. [address] [place] [phone] 01/13/2024 10:30 AM CDT Appointment Department of Cardiovascular Diseases in [address] [phone] Ron Santana M.D., Ph.D. [address] [place] [phone] 01/16/2024 12:25 PM CDT Hospital Encounter Division of Cardiovascular Diseases in [address] [phone] Ron Santana M.D., Ph.D. [address] [place] [phone] Atrial Fibrillation Longstanding Persistent (HCC) 01/16/2024 12:25 PM CDT - 01/16/2024 4:35 PM CDT Surgery Division of Cardiovascular Diseases in [address] [phone] Ron Santana M.D., Ph.D. [address] [place] [phone] PULSED FIELD ABLATION documented as of this encounter Visit Diagnoses Not on filedocumented in this encounter Additional Health Concerns Infection Onset Date Last Indicated Resolved Time Protective Environment 09/20/2022 09/20/2022 Assessment Noted Time PHQ-9 Depression Total Score: 6 07/17/19 20 10:26 AM DIRECTOR CRITICAL CARE documented as of this encounter Care Teams Mainstreaming Facilitator Relationship Specialty Start Date End Date Elsewhere, Pcp PCP - General Director Bioinformatics 06/27/19 documented as of this encounter
--- OUTSIDE RECORDS SUMMARY | 2023-11-22 12:33 | XMS_ITS | Encounter Summary ---
Author Organization [facility] Address [address] [place] [address] Care Team Providers Care Spanish Language Lecturer Name Role Phone Elsewhere, Pcp Primary Care Provider Unavailabl e Reason for Visit * Outpatient (Routine) - Closed Specialty Diagnoses / Procedures Referred By Oliverio t Referred To Contact Cardiovascular Disease Ron Santana M.D., Ph.D. [address] [place] [phone] [facility] Referral ID Status Reason Start Date Expiration Date Visits Re quested Visits Authorized [id number] Closed 10/06/2023 04/06/2025 1 1 Encounter Details Date Type Department Care Team (Latest Contact Info) Description 10/06/2023 4:30 PM CDT Virtual Visit Department of Cardiovascular Medicine in [place], [place] [address] [place] [phone] Ron Santana M.D., Ph.D. [address] [place] [phone] Atrial Fibrillation Unspecified (HCC) (Primary Dx) [...] How often do you attend adventist or faith serv ices? Never 06/30/2021 Do [...] and heating? Not hard at all 06/30/2021 [facility] of Occupat ional Health - Occupational [...] Sex Assigned at Male 06/30/2021 12:19 PM DRAWING FRAME TENDER Gender Identity Male 06/30/2021 12:19 PM DRAWING FRAME TENDER Sexual Orientation Straight 06/30/2021 12 :19 PM DRAWING FRAME TENDER documented as of this encounter Progress Notes * Ron Santana M.D., Ph.D. - 10/06/2023 4:30 PM CDT ASSESSMENT / PLAN Received a message via e-mail today to visit with Mr. Jensen. I called him this afternoon at [phone]. Mr. Jensen indicated that he has been [...] a request on August 14, 2023, via [employer] for Mr. Jensen to be added to my waiting list for scheduling of catheter ablation of atrial fibrillation. Mr. Jensen indicated thathe has had no recent episodes of loss of consciousness. Ron Santana M.D., Ph.D. CT CT Job ID: [id number] documented in this encounter Plan of Treatment Upcoming Encounters Date Type Department Care Team (Latest Contact Info) Description 12/02/2023 10:20 AM CDT Telemedicine Department of Oncology in [address] [phone] Birdie Hurtado M.D. [address] [place] [phone] 01/10/2024 7:45 AM CDT Clinical Communication Virtual Review in [place], [place] 200 [place] [address] 01/12/2024 9:40 AM CDT Ancillary Procedure Department of Cardiovascular Medicine in [place], [place] [address] [place] [phone] Ron Santana M.D., Ph.D. [address] [place] [phone] 01/12/2024 10:00 AM CDT Appointment Department of Cardiovascular Diseases in [place], [place] [address] [place] [phone] Ron Santana M.D., Ph.D. [address] [place] [phone] 01/12/2024 10:30 AM CDT Appointment Department of Laboratory Medicine and Pathology, [facility] in [place], [place] [address] [place] [phone] Ron Santana M.D., Ph.D. [address] [place] [phone] 01/12/2024 2:00 PM CDT Appointment Department of Radiology, [facility] in [place], [place] [address] [place] [phone] Ron Santana M.D., Ph.D. [address] [place] [phone] 01/13/2024 8:00 AM CDT Office Visit Department of Cardiovascular Medicine in [place], [place] [address] [place] [phone] Marilu Castaneda P.A.-C., M.S. [address] [place] [phone] 01/13/2024 10:30 AM CDT Appointment Department of Cardiovascular Diseases in [place] [address] [place] [phone] Ron Santana M.D., Ph.D. [address] [place] [phone] 01/16/2024 12:25 PM CDT Hospital Encounter Division of Cardiovascular Diseases in [address] [phone] Ron Santana M.D., Ph.D. [address] [place] [phone] Atrial Fibrillation Longstanding Persistent (HCC) 01/16/2024 12:25 PM CDT - 01/16/2024 4:35 PM CDT Surgery Division of Cardiovascular Diseases in [address] [phone] Ron Santana M.D., Ph.D. [address] [place] [phone] PULSED FIELD ABLATION documented as of this encounter Visit Diagnoses Diagnosis Atrial Fibrillation Unspecified (HCC)- Primary Atrial Fibrillation Longstanding Persistent (HCC)- Primary Atrial Fibrillation Longstanding Persistent (HCC) documented in this encounter Additional Health Concerns Infection Onset Date Last Indicated Resolved Time Protective Environment 09/20/2022 09/20/2022 Assessment Noted Time PHQ-9 Depression Total Score: 6 07/17/19 20 10:26 AM DRAWING FRAME TENDER documented as of this encounter Care Teams Spanish Language Lecturer Relationship Specialty Start Date End Date Elsewhere, Pcp PCP - General Prototype Model Maker 06/27/19 documented as of this encounter
--- OUTSIDE RECORDS SUMMARY | 2023-11-22 12:33 | XMS_ITS | Encounter Summary ---
Author Organization [facility] Address [address] [place] [address] Care Team Providers Care Pharmaceutical Representative Name Role Phone Elsewhere, Pcp Primary Care Provider Unavailabl e Encounter Details Date Type Department Care Team (Latest Contact Info) Description 09/09/2023 9:25 AM CDT - 09/09/2023 11:59 PM CDT Hospital Encounter Department of Radiology in [address] [phone] Birdie Hurtado M.D. [address] [place] [phone] Malignant Neoplasm Of Disseminated (HCC); Malignant Neoplasm [...] How often do you attend baptism or adventist serv ices? Never 06/30/2021 Do you belong [...] and heating? Not hard at all 06/30/2021 [facility] [place] of Occupat ional Health - Occupational Stress [...] Sex Assigned at Male 06/30/2021 12:19 PM PHYSICS TECHNICIAN Gender Identity Male 06/30/2021 12:19 PM PHYSICS TECHNICIAN Sexual Orientation Straight 06/30/2021 12 :19 PM PHYSICS TECHNICIAN documented as of this encounter Medications at [...] AM CDT Telemedicine Department of Oncology in [place], [place] [address] [place] [phone] Birdie Hurtado M.D. [address] [place] [phone] 01/10/2024 7:45 AM CDT Clinical Communication Virtual Review in [place], [place] [address] [place] [phone] 01/12/2024 9:40 AM CDT Ancillary Procedure Department of Cardiovascular Medicine in [place], [place] [address] [place] [phone] Ron Santana M.D., Ph.D. [address] [place] [phone] 01/12/2024 10:00 AM CDT Appointment Department of Cardiovascular Diseases in [place], [place] [address] [place] [phone] Ron Santana M.D., Ph.D. [address] [place] [phone] 01/12/2024 10:30 AM CDT Appointment Department of Laboratory Medicine and Pathology, [facility] in [place], [place] [address] [place] [phone] Ron Santana M.D., Ph.D. [address] [place] [phone] 01/12/2024 2:00 PM CDT Appointment Department of Radiology, [facility] in [place], [place] [address] [place] [phone] Ron Santana M.D., Ph.D. [address] [place] [phone] 01/13/2024 8:00 AM CDT Office Visit Department of Cardiovascular Medicine in [place], [place] [address] [place] [phone] Marilu Castaneda P.A.-C., M.S. [address] [place] [phone] 01/13/2024 10:30 AM CDT Appointment Department of Cardiovascular Diseases in [address] [phone] Ron Santana M.D., Ph.D. [address] [place] [phone] 01/16/2024 12:25 PM CDT Hospital Encounter Division of Cardiovascular Diseases in [address] [phone] Ron Santana M.D., Ph.D. [address] [place] [phone] Atrial Fibrillation Longstanding Persistent (HCC) 01/16/2024 12:25 PM CDT - 01/16/2024 4:35 PM CDT Surgery Division of Cardiovascular Diseases in [address] [phone] Ron Santana M.D., Ph.D. [address] [place] [phone] PULSED FIELD ABLATION documented as of this [...] mass consistent with treatedlymphoma. Birdie Hurtado M.D. IMG CT PROCEDURES documented [...] Total Score: 6 07/17/19 20 10:26 AM PHYSICS TECHNICIAN documented as of this encounter Care Teams Pharmaceutical Representative Relationship Specialty Start Date End Date Elsewhere, Pcp PCP - General Ripsaw Matcher 06/27/19 documented as of this encounter
--- OUTSIDE RECORDS SUMMARY | 2023-11-22 12:33 | XMS_ITS | Encounter Summary ---
Author Organization [facility] Address [address] [place] [address] Care Team Providers Care Planning Specialist Name Role Phone Elsewhere, Pcp Primary Care Provider Unavailabl e Encounter Details Date Type Department Care Team (Latest Contact Info) Description 09/09/2023 7:53 AM CDT - 09/09/2023 9:24 AM CDT Hospital Encounter Department of Radiology in [address] [phone] Birdie Hurtado M.D. [address] [place] [phone] Malignant Neoplasm Of Disseminated (HCC); Malignant [...] How often do you attend druze or quaker serv ices? Never 06/30/2021 Do you belong [...] and heating? Not hard at all 06/30/2021 [facility] of Occupat ional Health - Occupational Stress [...] Sex Assigned at Male 06/30/2021 12:19 PM SAFETY SECURITY OFFICER Gender Identity Male 06/30/2021 12:19 PM SAFETY SECURITY OFFICER Sexual Orientation Straight 06/30/2021 12 :19 PM SAFETY SECURITY OFFICER documented as of this encounter Medications at [...] AM CDT Telemedicine Department of Oncology in [place], [place] [address] [place] [phone] Birdie Hurtado M.D. [address] [place] [phone] 01/10/2024 7:45 AM CDT Clinical Communication Virtual Review in [place], [place] 200 [place] [phone] 01/12/2024 9:40 AM CDT Ancillary Procedure Department of Cardiovascular Medicine in [place], [place] [address] [place] [phone] Ron Santana M.D., Ph.D. [address] [place] [phone] 01/12/2024 10:00 AM CDT Appointment Department of Cardiovascular Diseases in [place], [place] [address] [place] [phone] Ron Santana M.D., Ph.D. [address] [place] [phone] 01/12/2024 10:30 AM CDT Appointment Department of Laboratory Medicine and Pathology, [facility] in [place], [place] [address] [place] [phone] Ron Santana M.D., Ph.D. [address] [place] [phone] 01/12/2024 2:00 PM CDT Appointment Department of Radiology, [facility] in [place], [place] [address] [place] [phone] Ron Santana M.D., Ph.D. [address] [place] [phone] 01/13/2024 8:00 AM CDT Office Visit Department of Cardiovascular Medicine in [place], [place] [address] [place] [phone] Marilu Castaneda P.A.-C., M.S. [address] [place] [phone] 01/13/2024 10:30 AM CDT Appointment Department of Cardiovascular Diseases in [address] [phone] Ron Santana M.D., Ph.D. [address] [place] [phone] 01/16/2024 12:25 PM CDT Hospital Encounter Division of Cardiovascular Diseases in [address] [phone] Ron Santana M.D., Ph.D. [address] [place] [phone] Atrial Fibrillation Longstanding Persistent (HCC) 01/16/2024 12:25 PM CDT - 01/16/2024 4:35 PM CDT Surgery Division of Cardiovascular Diseases in [address] [phone] Ron Santana M.D., Ph.D. [address] [place] [phone] PULSED FIELD ABLATION documented as of this [...] Total Score: 6 07/17/19 20 10:26 AM SAFETY SECURITY OFFICER documented as of this encounter Care Teams Planning Specialist Relationship Specialty Start Date End Date Elsewhere, Pcp PCP - General Multimedia Assistant 06/27/19 documented as of this encounter
--- NOTE | 2023-11-22 13:00 | CRLHL7_ITS ---
For Patients: As a result of the 21st Century Cures Act, medical imaging exams and procedure reports are released immediately into your electronic medical record. You may view this report before your referring provider. If you have questions, please contact your health care provider. 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 Coronal and sagittal reconstructions are included. COMPARISON: CT neck 08/30/2023, PET-CT 05/12/2023 FINDINGS: Enlargement of the solid and cystic heterogeneously enhancing mass in the tail of the right parotid gland that measures 3.7 cm x 3.2 cm x 5.4 cm (AP x TR x CC), previously 3.7 x 3.1 x 4.7 cm. A cystic structure in the inferior portable mass demonstrates significant enlargement measuring 2.7 cm craniocaudal previously 0.8 cm (series 5, image 64). Stable 1 cm in the superior aspect of the right parotid gland that likely represents lymph node measuring up to 1.3 cm that likely represent lymph nodes. Although the majority of previously noted enlarged cervical lymph nodes remain stable in size, a few have increased in size. 2.4 cm right level 2A node previously measured 2.2 cm (series 3, image 42) 1.9 cm right level 2/3 node previously measured 1.6 cm (series 3, image 45) 2.5 centimeter left level 1B node previously measured 2.3 cm (series 3, image 41). 1.5 cm left level 5 node has decreased in size previously 1.8 cm (series 3, image 50). Some mediastinal lymph nodes have increased in size: 2.3 cm node previously measured 2 cm (series 3, image 29). 3.2 cm right paratracheal node measures 2.8 cm (series 3 image 82). The oral cavity, nasopharyngeal, oropharyngeal and hypopharyngeal mucosal spaces are normal. No periapical dental disease. The supraglottic, glottic and infraglottic larynx are normal. The airway including the trachea is normal and is patent. The thyroid gland is normal in appearance. Leftward deviation of the nasal septum. The vascular structures opacify normally with contrast material. Scattered cervical spondylosis without significant change compared to the prior. No suspicious lytic or blastic osseous lesions. Visualized paranasal sinuses and mastoid air cells are clear. Visualized orbital and intracranial contents are normal. Supraclavicular regions, mediastinum and soft tissues of the imaged chest wall are normal. Multiple ground-glass opacities in the bilateral upper lobes and right lower lobe have increased in size compared to the prior study. IMPRESSION: 1. Enlargement of conglomerate of lymph nodes in the right parotid gland. Stable few foci of prominent lymph nodes in the left parotid gland. 2. Although the majority of previously noted enlarged cervical and mediastinal lymph nodes remain stable in size, a few have increased in size. 3. Multiple ground-glass opacities in the bilateral upper lobes and right lower lobe have increased in size compared to the prior study. Differential considerations include inflammatory/infectious etiology versus metastasis. CT chest recommended for further evaluation. Please note that all CT scans at this facility use dose modulation, iterative reconstruction, and/or weight-based dosing when appropriate to reduce radiation dose to as low as reasonably achievable. Dictated by Ron Garcia MD @ 11/25/2023 9:19:25 AM (Electronically Signed)
== END 2023-11-22 12:30 | disposition home or self-care (01) ==
LOC: CT 12:29
PROVIDERS: PCP Student in an Organized Health Care Education/Training Program; Visit Provider Internal Medicine Hematology & Oncology
DX: C08.9 Malignant neoplasm of major salivary gland, unspecified (principal)
CPT/HCPCS: 70491; Q9967

== ENCOUNTER 2023-12-27 10:57 | Outpatient (CLI) | payer MEDICARE, BC, SELFPAY ==
--- OUTSIDE RECORDS SUMMARY | 2023-12-27 11:00 | XMS_ITS | Encounter Summary ---
Author Organization [facility] Address [address] [place] [address] Care Team Providers Care Clerical Office Name Role Phone Elsewhere, Pcp Primary Care Provider Unavailabl e Encounter Details Date Type Department Care Team (Latest Contact Info) Description 11/17/2023 1:15 PM CDT Ancillary Procedure Department of Radiology in [place], [place] [address] [place] [address] Birdie Hurtado M.D. [address] [place] [phone] Malignant Neoplasm Of Lung Squamous Cell [...] week 06/30/2021 How often do you attend sabianist or yazidi serv ices? Never 06/30/2021 Do you belong to any clubs o r organizations such as sabianist groups, unions, fraternal or athletic groups, or [...] heating? Not hard at all 06/30/2021 [facility] of Occupat ional Health - Occupational Stress [...] Sex Assigned at Male 06/30/2021 12:19 PM REFRIGERATED NATIONAL TRUCK DRIVER Gender Identity Male 06/30/2021 12:19 PM REFRIGERATED NATIONAL TRUCK DRIVER Sexual Orientation Straight 06/30/2021 12 :19 PM REFRIGERATED NATIONAL TRUCK DRIVER documented as of this encounter Plan of Treatment Upcoming Encounters Date Type Department Care Team (Latest Contact Info) Description 01/10/2024 7:45 AM CDT Clinical Communication Virtual Review in [place], [place] [address] [place] [address] 01/12/2024 9:40 AM CDT Ancillary Procedure Department of Cardiovascular Medicine in [place], [place] [address] [place] [phone] Ron Santana M.D., Ph.D. [address] [place] [phone] 01/12/2024 10:00 AM CDT Appointment Department of Cardiovascular Diseases in [place], [place] [address] [place] [phone] Ron Santana M.D., Ph.D. [address] [place] [phone] 01/12/2024 10:30 AM CDT Appointment Department of Laboratory Medicine and Pathology, [facility] in [place], [place] [address] [place] [phone] Ron Santana M.D., Ph.D. [address] [place] [phone] 01/12/2024 2:00 PM CDT Appointment Department of Radiology, [facility] in [place], [place] [address] [place] [phone] Ron Santana M.D., Ph.D. [address] [place] [phone] 01/13/2024 8:00 AM CDT Office Visit Department of Cardiovascular Medicine in [place], [place] [address] [place] [phone] Marilu Castaneda P.A.-C., M.S. [address] [place] [phone] 01/13/2024 10:30 AM CDT Appointment Department of Cardiovascular Diseases in [place], [place] [address] [place] [phone] Ron Santana M.D., Ph.D. [address] [place] [phone] 01/16/2024 12:25 PM CDT Hospital Encounter Division of Cardiovascular Diseases in [place], [place] [address] [place] [phone] Ron Santana M.D., Ph.D. [address] [place] [phone] Atrial Fibrillation Longstanding Persistent (HCC) 01/16/2024 12:25 PM CDT - 01/16/2024 4:35 PM CDT Surgery Division of Cardiovascular Diseases in [place], [place] [address] [place] [phone] Ron Santaan M.D., Ph.D. [address] [place] [phone] PULSED FIELD ABLATION documented as of this [...] 10 mm nodule in right lower lobe (/) has increased from 10 x 7 mm in the previous CT. New small right pleural effusion with atelectasis. No pneumothorax. Interval worsening lymphadenopathy. For example, subcarinal lymph node (2/52) measures 34 mm compared to 32 mm [...] separately if requested. Procedure Note Art Elise M.B.B.SBuddy, M.D. - 11/17/2023 EXAM: INTERPRETATION OF OUTSIDE [...] small right pleural effusion. Birdie Hurtado M.D. [facility] CT PROCEDURES documented in this encounter Visit [...] Total Score: 6 07/17/19 20 10:26 AM REFRIGERATED NATIONAL TRUCK DRIVER documented as of this encounter Care Teams Clerical Office Relationship Specialty Start Date End Date Elsewhere, Pcp PCP - General Head Irrigator 06/27/19 documented as of this encounter
--- OUTSIDE RECORDS SUMMARY | 2023-12-27 11:00 | XMS_ITS | Encounter Summary ---
Author Organization [facility] Address [address] [place] [address] Care Team Providers Care Subcontract Administrator Name Role Phone Elsewhere, Pcp Primary Care Provider Unavailabl e Reason for Visit * Reason Comments Med Refill Encounter Details Date Type Department Care Team (Late st Contact Info) Description 12/22/2023 Refill Department of Cardiovascular Medicine in [place], [place] [address] [place] [phone] Flo Nazario M.D. [address] [place] [address] Med Refill Social History Tobacco Use Types [...] week 06/30/2021 How often do you attend orthodoxy or anglican serv ices? Never 06/30/2021 Do you belong to any clubs o r organizations such as orthodoxy groups, unions, fraternal or athletic groups, or [...] and heating? Not hard at all 06/30/2021 [facility] of Occupat ional Health - Occupational [...] Sex Assigned at Male 06/30/2021 12:19 PM ROOM SERVICE ASSOCIATE Gender Identity Male 06/30/2021 12:19 PM ROOM SERVICE ASSOCIATE Sexual Orientation Straight 06/30/2021 12 :19 PM ROOM SERVICE ASSOCIATE documented as of this encounter Plan of Treatment Upcoming Encounters Date Type Department Care Team (Latest Contact Info) Description 01/10/2024 7:45 AM CDT Clinical Communication Virtual Review in [place], [place] 200 [place] [address] 01/12/2024 9:40 AM CDT Ancillary Procedure Department of Cardiovascular Medicine in [place], [place] [address] [place] [phone] Ron Santana M.D., Ph.D. [address] [place] [phone] 01/12/2024 10:00 AM CDT Appointment Department of Cardiovascular Diseases in [place], [place] [address] [place] [phone] Ron Santana M.D., Ph.D. [address] [place] [phone] 01/12/2024 10:30 AM CDT Appointment Department of Laboratory Medicine and Pathology, [facility] in [place], [place] [address] [place] [phone] Ron Santana M.D., Ph.D. [address] [place] [phone] 01/12/2024 2:00 PM CDT Appointment Department of Radiology, [facility] in [place], [place] [address] [place] [phone] Ron Santana M.D., Ph.D. [address] [place] [phone] 01/13/2024 8:00 AM CDT Office Visit Department of Cardiovascular Medicine in [place], [place] [address] [place] [phone] Marilu Castaneda P.A.-C., M.S. [address] [place] [phone] 01/13/2024 10:30 AM CDT Appointment Department of Cardiovascular Diseases in [place], [place] [address] [place] [phone] Ron Santana M.D., Ph.D. [address] [place] [phone] 01/16/2024 12:25 PM CDT Hospital Encounter Division of Cardiovascular Diseases in [address] [phone] Ron Santana M.D., Ph.D. [address] [place] [address] Atrial Fibrillation Longstanding Persistent (HCC) 01/16/2024 12:25 PM CDT - 01/16/2024 4:35 PM CDT Surgery Division of Cardiovascular Diseases in [place], [place] [address] [place] [address] Ron Santana M.D., Ph.D. [address] [place] [phone] PULSED FIELD ABLATION documented as of this encounter Visit Diagnoses Not on filedocumented in this encounter Additional Health Concerns Infection Onset Date Last Indicated Resolved Time Protective Environment 09/20/2022 09/20/2022 Assessment Noted Time PHQ-9 Depression Total Score: 6 07/17/19 20 10:26 AM ROOM SERVICE ASSOCIATE documented as of this encounter Care Teams Subcontract Administrator Relationship Specialty Start Date End Date Elsewhere, Pcp PCP - General Area Sales Manager 06/27/19 documented as of this encounter
--- OUTSIDE RECORDS SUMMARY | 2023-12-27 11:00 | XMS_ITS | Encounter Summary ---
Author Organization [facility] Address [address] [place] [address] Care Team Providers Care Research Laboratory Specialist Name Role Phone Elsewhere, Pcp Primary Care Provider Unavailabl e Encounter Details Date Type Department Care Team (Late st Contact Info) Description 11/21/2023 Orders Only Department of Oncology in [place], [place] [address] [place] [phone] Birdie Hurtado M.D. [address] [place] [phone] Social History Tobacco Use Types Packs/Day Years [...] week 06/30/2021 How often do you attend buddhist or yazidism serv ices? Never 06/30/2021 Do you belong to any clubs o r organizations such as buddhist groups, unions, fraternal or athletic groups, or [...] Sex Assigned at Male 06/30/2021 12:19 PM ACCESS DEVELOPER Gender Identity Male 06/30/2021 12:19 PM ACCESS DEVELOPER Sexual Orientation Straight 06/30/2021 12 :19 PM ACCESS DEVELOPER documented as of this encounter Plan of Treatment Upcoming Encounters Date Type Department Care Team (Latest Contact Info) Description 01/10/2024 7:45 AM CDT Clinical Communication Virtual Review in [place], [place] [address] [place] [phone] 01/12/2024 9:40 AM CDT Ancillary Procedure Department of Cardiovascular Medicine in [address] [phone] Ron Santana M.D., Ph.D. [address] [place] [phone] 01/12/2024 10:00 AM CDT Appointment Department of Cardiovascular Diseases in [place], [place] [address] [place] [phone] Ron Santana M.D., Ph.D. [address] [place] [phone] 01/12/2024 10:30 AM CDT Appointment Department of Laboratory Medicine and Pathology, [facility] in [place], [place] [address] [place] [phone] Ron Santana M.D., Ph.D. [address] [place] [phone] 01/12/2024 2:00 PM CDT Appointment Department of Radiology, [facility] in [place], [place] [address] [place] [phone] Ron Santana M.D., Ph.D. [address] [place] [phone] 01/13/2024 8:00 AM CDT Office Visit Department of Cardiovascular Medicine in [place], [place] [address] [place] [phone] Marilu Castaneda P.A.-C., M.S. [address] [place] [phone] 01/13/2024 10:30 AM CDT Appointment Department of Cardiovascular Diseases in [place], [place] [address] [place] [phone] Ron Santana M.D., Ph.D. [address] [place] [phone] 01/16/2024 12:25 PM CDT Hospital Encounter Division of Cardiovascular Diseases in [address] [phone] Ron Santana M.D., Ph.D. [address] [place] [phone] Atrial Fibrillation Longstanding Persistent (HCC) 01/16/2024 12:25 PM CDT - 01/16/2024 4:35 PM CDT Surgery Division of Cardiovascular Diseases in [place], [place] [address] [place] [phone] Ron Santana M.D., Ph.D. [address] [place] [phone] PULSED FIELD ABLATION documented as of this encounter Visit Diagnoses Not on filedocumented in this encounter Additional Health Concerns Infection Onset Date Last Indicated Resolved Time Protective Environment 09/20/2022 09/20/2022 Assessment Noted Time PHQ-9 Depression Total Score: 6 07/17/19 20 10:26 AM ACCESS DEVELOPER documented as of this encounter Care Teams Research Laboratory Specialist Relationship Specialty Start Date End Date Elsewhere, Pcp PCP - General Extrusion Former 06/27/19 documented as of this encounter
--- OUTSIDE RECORDS SUMMARY | 2023-12-27 11:00 | XMS_ITS | Clinical Summary ---
Author Organization [facility] Address [address] [place] [id number] Care Team Providers Care Platform Inspector Name Role Phone Elsewhere, Pcp Primary Care Provider Unavailabl e Source Comments Patient records contain information from all sites at [facility]. For routine questions regarding patient records, call [phone] during business hours, M-F 8:00 AM - 5:00 PM Central Time. Record requests for emergency care only can be directed to [phone] at any time.[facility] Allergies Active Allergy Reactions Criticality Noted Date [...] 24 hr capsule 0.4 mg daily. 01/14/2022 Active Calquence, acalabrutinib mal, 100 mg tablet Take 100 mg by mouth. 10/06/2022 Active ferrous sulfate 325 mg (65 mg [...] Active oxyCODONE (ROXICODONE) 5 mg immediate release tabletIndications:C hronic Pain/Nonacute Pain Take 1-2 tablets (5-10 mg total) by mouth every 4 (four) hours as needed for moderate pain or score 4-6 of 10 Indication: Chronic Pain/Nonacute Pain. 30 tablet 06/01/2023 Active atorvastatin (LIPITOR) 20 mg tablet TAKE ONE TABLET BY MOUTH ONCE EVERY DAY 90 tablet 3 10/11/2023 Active amiodarone (Pacerone) 200 mg tablet Take 0.5 tablets (100 mg total) by mouth daily. 45 tablet 3 12/22/2023 Active amiodarone (PACERONE) 200 mg tablet Take 0.5 tablets (100 mg total) by mouth daily. 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 Atrial Fibrillation Unspecified 01/06/2022 Postprocedural Hematoma Of S kin And Subcutaneous Tissue Following Other Procedure 11/06/2020 Overview (11/06/2020): Left wrist hematoma Hypertension White Coat 11/05/2020 Atrial Fibrillation Longstanding Persistent 12/2020 Overview (11/05/2020): Status post catheter ablation, November 2020 Hypomagnesemia 06/29/2019 Repair Mitral Valve Status Post 06/28/2019 Gout 06/28/2019 Benign Prostatic Hyperplasia Without Obstruction 06/28/2019 Personal History Of 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 During stress test. No recurrence since. Regurgitation Mitral 06/26/2019 Overview (06/28/2019): W/ a flail segment of the lateral aspect of P2 with associated severe MR. 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 Med Refill 11/24/2023 Clinical Communication Department of Oncology in [address] [phone] Carlotta Zee, R.NBuddy 11/21/2023 Orders Only Department of Oncology in [address] [phone] Birdie Hurtado M.D. 11/17/2023 1:15 PM CDT Ancillary Procedure Department of Radiology in [place], [place] [address] [place] [phone] Birdie Hurtado M.D. 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 11/08/2023 Clinical Communication Department of Cardiovascular Medicine in [place], [place] [address] [place] [phone] Vee Jalloh R.N. 10/08/2023 Refill Department of Cardiovascular Diseases in [address] [phone] Flo Nazario M.D. Med Refill 10/06/2023 4:30 PM CDT Virtual Visit Department of Cardiovascular Medicine in [place], [place] [address] [place] [phone] Ron Santana M.D., Ph.D. Atrial Fibrillation Unspecified (HCC) (Primary Dx) 10/06/2023 Orders Only Division of Cardiovascular Diseases in [address] [phone] Ron Santana M.D., Ph.D. 10/06/2023 Clinical Communication Department of Cardiovascular Medicine in [address] [phone] Ron Santana M.D., Ph.D. Med Question (Calquence dosage / ablation list) from Last 3 Months Immunizations Name Administration [...] week 06/30/2021 How often do you attend rastafari or jehovah's witness serv ices? Never 06/30/2021 Do you belong to any clubs o r organizations such as rastafari groups, unions, fraternal or athletic groups, or [...] and heating? Not hard at all 06/30/2021 [facility] - [...] place to sleep or slept in a nursing home (including now)? No 06/30/2021 Depression Answer [...] Assigned at Male 06/30/2021 12:19 PM FREIGHT CLERK Gender Identity Male 06/30/2021 12:19 PM FREIGHT CLERK Sexual Orientation Straight 06/30/2021 12 :19 PM FREIGHT CLERK Last Filed Vital Signs Vital Sign Reading Time Taken Comments Blood Pressure 168/75 05/03/2023 4:01 PM FREIGHT CLERK Pulse 73 05/03/2023 4:01 PM FREIGHT CLERK Temperature 36.6 ??C (97.9 ??F) 05/03/2023 3:58 PM CS T Respiratory Rate 17 10/13/2022 5:15 PM CDT Oxygen Saturation 98% 05/03/2023 3:58 PM FREIGHT CLERK Room air Inhaled Oxygen Concentration - - Weight 81 kg (178 lb 9.2 oz) 05/03/2023 3:58 PM FREIGHT CLERK Height 179 cm (5' 10.47) 04/02/2022 1:10 PM CDT Body Mass Index 25.28 04/02/2022 1:10 PM CDT Plan of Treatment Upcoming Encounters Date Type Department Care Team (Latest Contact Info) Description 01/10/2024 7:45 AM CDT Clinical Communication Virtual Review in [place], [place] 200 [place] [address] 01/12/2024 9:40 AM CDT Ancillary Procedure Department of Cardiovascular Medicine in [place], [place] [address] [place] [phone] Ron Santana M.D., Ph.D. [address] [place] [phone] 01/12/2024 10:00 AM CDT Appointment Department of Cardiovascular Diseases in [place], [place] [address] [place] [phone] Ron Santana M.D., Ph.D. [address] [place] [phone] 01/12/2024 10:30 AM CDT Appointment Department of Laboratory Medicine and Pathology, [facility] in [place], [place] [address] [place] [phone] Ron Santana M.D., Ph.D. [address] [place] [phone] 01/12/2024 2:00 PM CDT Appointment Department of Radiology, [facility] in [place], [place] [address] [place] [phone] Ron Santana M.D., Ph.D. [address] [place] [phone] 01/13/2024 8:00 AM CDT Office Visit Department of Cardiovascular Medicine in [place], [place] [address] [place] [phone] Marilu Castaneda P.A.-C., M.S. [address] [place] [phone] 01/13/2024 10:30 AM CDT Appointment Department of Cardiovascular Diseases in [place], [place] [address] [place] [phone] Ron Santana M.D., Ph.D. [address] [place] [phone] 01/16/2024 12:25 PM CDT Hospital Encounter Division of Cardiovascular Diseases in [place], [place] [address] [place] [address], [place] [phone] Ron Santana M.D., Ph.D. [address] [place] [phone] Atrial Fibrillation Longstanding Persistent (HCC) 01/16/2024 12:25 PM CDT - 01/16/2024 4:35 PM CDT Surgery Division of Cardiovascular Diseases in [place], [place] [address] [place] [address] Ron Santana M.D., Ph.D. [address] [place] [phone] PULSED FIELD ABLATION Health Maintenance Due Date [...] 10/27/2023 10/26/2022, 10/04, 08/19/2022, Additional history exists Influenza Vaccine (#1) 2024 , 04/02/2022, 03/25/2021, Additional history exists Creatinine Level (Kidney Function Test) 05/23/2024 05/23/2023, 10/26/2022, 10/13/2022, Additional history exists Pneumococcal vaccine (65+ years) Completed 12/20/2014, 10/12/2010 HPV Vaccines Aged Out No longer eligi ble based on patient's age to complete this topic Medical Devices Implanted Type Area Upholstery Trimmer Device Identifier Shelf Expiration Date Model / Serial / Lot Robert Ames Xtr - [id number] Implanted:Qty : 1 on 06/28/2019 by Hernandez Echevarria M.D. 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 If available, original interpretation can be found on the Media Tab in Chart Review, in Document Viewer, as an image in QREADS or as an Addendum. If a re-interpretation or overread is required please follow defined workflow.?? Provider Not In System IMG NM PROCEDURES IIMS NA * Interpretation of Outside CT Chest (11/17/2023 [...] the previous CT. Right lowerparatracheal lymph node (/37) measures 29 mm compared [...] con-Outside CT Body (11/10/2023 9:45 AM CDT) Narrative IIMS - 11/15/2023 2:01 PM CDT [...] Provider Not In System IMG CT PROCEDURES [facility] NA * Creatinine with Estimated GFR (05/23/2023 8:43 AM FREIGHT CLERK) Creatinine 1.10 0.74 - 1.35 mg/dL 05/23/2023 9:50 AM FREIGHT CLERK DTL Estimated GFR (eGFR) 69 >=60 mL/min/BSA 05/23/2023 9:50 AM FREIGHT CLERK DTL Comment: Estimated GFR calculated using the 2020 CKD_EPI creatinine equation. Blood (Blood, Venous) 05/23/2023 8:43 AM FREIGHT CLERK 05/23/2023 9:27 AM FREIGHT CLERK Karlie Escoto M.D. LAB BLOOD ADD-ON [facility] [address] [place] [address], [place] DTL [facility] [address] [place] [address] * Potassium (10/26/2022 11:31 AM CDT) Potassium, P 4.4 3.6 - 5.2 mmol/L 10/26/2022 11:56 AM CDT CNFL Blood (Blood, Venous) 10/26/2022 11:31 AM CDT 10/26/2022 11:34 AM CDT Ron Santana M.D., Ph.D. LAB BLOOD AD D-ON [facility] [address] [place] [id number], [facility] CNFL [facility] [address] * (ABNORMAL) Basic Metabolic Panel (10/13/2022 12:40 [...] Ivone Blunt M.D. LAB BLOOD ADD- ON [facility] [address] [place] [address], [place] STMA [facility] [address] [place] [address] from Last 3 Months or Most Recently Relevant to Health Maintenance Additional Health Concerns Infection Onset Date Last Indicated Protective Environment 09/20/2022 3 Advance Directives For more information, please contact: [phone] * Full Code (Latest Code Status on File) Date Activated Date Inactivated Comments 01/06/2022 5:12 PM 01/09/2022 4:47 PM Question Answer Comments Full Code: Discussed * Full Code Date Activated Date Inactivated Comments 06/28/2019 12:14 PM 06/29/2019 2:37 PM Question Answer Comments Full Code: Discussed Care Teams Platform Inspector Relationship Specialty Start Date End Date Elsewhere, Pcp PCP - General Leather Whitener 06/27/19
--- OUTSIDE RECORDS SUMMARY | 2023-12-27 11:00 | XMS_ITS | Referral Summary ---
Author Organization [facility] Address [address] [place] [address] Care Team Providers Care Congregational Care Pastor Name Role Phone Elsewhere, Pcp Primary Care Provider Unavailabl e Source Comments Patient records contain information from all sites at [facility]. For routine questions regarding patient records, call [phone] during business hours, M-F 8:00 AM - 5:00 PM Central Time. Record requests for emergency care only can be directed to [phone] at any time.[facility] Encounters Date Type Department Care Team Description 12/22/2023 Refill Department of Cardiovascular Medicine in [place], [place] [address] [place] [address] Flo Nazario M.D. Med Refill 11/24/2023 Clinical Communication Department of Oncology in [address] [phone] Carlotta Zee, R.NBuddy 11/21/2023 Orders Only Department of Oncology in [address] [phone] Birdie Hurtado M.D. 11/17/2023 1:15 PM CDT Ancillary Procedure Department of Radiology in [place], [place] [address] [place] [phone] Birdie Hurtado M.D. 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 11/08/2023 Clinical Communication Department of Cardiovascular Medicine in [place], [place] [address] [place] [address] Vee Jalloh R.N. 10/08/2023 Refill Department of Cardiovascular Diseases in [address] [phone] Flo Nazario M.D. Med Refill 10/06/2023 4:30 PM CDT Virtual Visit Department of Cardiovascular Medicine in [place], [place] [address] [place] [address] Ron Santana M.D., Ph.D. Atrial Fibrillation Unspecified (HCC) (Primary Dx) 10/06/2023 Orders Only Division of Cardiovascular Diseases in [place], [place] [address] [place] [address] Ron Santana M.D., Ph.D. 10/06/2023 Clinical Communication Department of Cardiovascular Medicine in [place], [place] [address] [place] [phone] Ron Santana M.D., Ph.D. Med Question (Calquence dosage / ablation list) from Last 3 Months Allergies Active Allergy [...] week 06/30/2021 How often do you attend yazidism or methodist serv ices? Never 06/30/2021 Do you belong to any clubs o r organizations such as yazidism groups, unions, fraternal or athletic groups, or [...] at all 06/30/2021 [facility] Questionnaire Answer Date Recorded [...] Sex Assigned at Male 06/30/2021 12:19 PM BIOMEDICAL EQUIPMENT SUPPORT SPECIALIST Gender Identity Male 06/30/2021 12:19 PM BIOMEDICAL EQUIPMENT SUPPORT SPECIALIST Sexual Orientation Straight 06/30/2021 12 :19 PM BIOMEDICAL EQUIPMENT SUPPORT SPECIALIST Last Filed Vital Signs Vital Sign Reading Time Taken Comments Blood Pressure 168/75 05/03/2023 4:01 PM BIOMEDICAL EQUIPMENT SUPPORT SPECIALIST Pulse 73 05/03/2023 4:01 PM BIOMEDICAL EQUIPMENT SUPPORT SPECIALIST Temperature 36.6 ??C (97.9 ??F) 05/03/2023 3:58 PM CS T Respiratory Rate 17 10/13/2022 5:15 PM CDT Oxygen Saturation 98% 05/03/2023 3:58 PM BIOMEDICAL EQUIPMENT SUPPORT SPECIALIST Room air Inhaled Oxygen Concentration - - Weight 81 kg (178 lb 9.2 oz) 05/03/2023 3:58 PM BIOMEDICAL EQUIPMENT SUPPORT SPECIALIST Height 179 cm (5' 10.47) 04/02/2022 1:10 PM CDT Body Mass Index 25.28 04/02/2022 1:10 PM CDT Plan of Treatment Upcoming Encounters Date Type Department Care Team (Latest Contact Info) Description 01/10/2024 7:45 AM CDT Clinical Communication Virtual Review in [place], [place] 200 [place] [address] 01/12/2024 9:40 AM CDT Ancillary Procedure Department of Cardiovascular Medicine in [address] [phone] Ron Santana M.D., Ph.D. [address] [place] [phone] 01/12/2024 10:00 AM CDT Appointment Department of Cardiovascular Diseases in [address] [phone] Ron Santana M.D., Ph.D. [address] [place] [phone] 01/12/2024 10:30 AM CDT Appointment Department of Laboratory Medicine and Pathology, [facility] in [place], [place] [address] [place] [phone] Ron Santana M.D., Ph.D. [address] [place] [phone] 01/12/2024 2:00 PM CDT Appointment Department of Radiology, [facility] in [place], [place] [address] [place] [phone] Ron Santana M.D., Ph.D. [address] [place] [phone] 01/13/2024 8:00 AM CDT Office Visit Department of Cardiovascular Medicine in [place], [place] [address] [place] [phone] Marilu Castaneda P.A.-C., M.S. [address] [place] [phone] 01/13/2024 10:30 AM CDT Appointment Department of Cardiovascular Diseases in [place], [place] [address] [place] [phone] Ron Santana M.D., Ph.D. [address] [place] [phone] 01/16/2024 12:25 PM CDT Hospital Encounter Division of Cardiovascular Diseases in [address] [phone] Ron Santana M.D., Ph.D. [address] [place] [phone] Atrial Fibrillation Longstanding Persistent (HCC) 01/16/2024 12:25 PM CDT - 01/16/2024 4:35 PM CDT Surgery Division of Cardiovascular Diseases in [place], [place] [address] [place] [address] Ron Santana M.D., Ph.D. [address] [place] [address] PULSED FIELD ABLATION Medical Devices Implanted Type Area Recording Clerk Device Identifier Shelf Expiration Date Model / Serial / Lot Clp Tania Clip Del Sys Xtr - [id number] Implanted:Qty : 1 on 06/28/2019 by Hernandez Echevarria M.D. at [facility] Mitralclip N/A: Heart Reese 03/21/2020 [id number] / / [id number] Description:Mitral Valve Ocular Lens Ocular Lens Eye [...] WITH EGFR, S/P Routine 05/23/2023 8:43 AM BIOMEDICAL EQUIPMENT SUPPORT SPECIALIST Malignant Neoplasm Of Salivary Gland (HCC) POTASSIUM, [...] follow defined workflow.?? Provider Not In System IM NM PROCEDURES IITX NA * Interpretation of Outside CT Chest [...] if requested. Procedure Note Art Elise M.B.B.S., M.Carlos. - 11/17/2023 EXAM: INTERPRETATION OF OUTSIDE CT [...] CT Body (11/10/2023 9:45 AM CDT) Narrative IITX - 11/15/2023 2:01 PM CDT This order has been created and auto-finalized to support the import of outside images. If available, original interpretation can be found on the Media Tab in Chart Review, in Document Viewer, as an image in QREADS or as an Addendum. If a re-interpretation or overread is required please follow defined workflow.?? Provider Not In System IMG CT PROCEDURES [facility] NA * Creatinine with Estimated GFR (05/23/2023 8:43 AM BIOMEDICAL EQUIPMENT SUPPORT SPECIALIST) Creatinine 1.10 0.74 - 1.35 mg/dL 05/23/2023 9:50 AM BIOMEDICAL EQUIPMENT SUPPORT SPECIALIST DTL Estimated GFR (eGFR) 69 >=60 mL/min/BSA 05/23/2023 9:50 AM BIOMEDICAL EQUIPMENT SUPPORT SPECIALIST DTL Comment: Estimated GFR calculated using the 2020 CKD_EPI creatinine equation. Blood (Blood, Venous) 05/23/2023 8:43 AM BIOMEDICAL EQUIPMENT SUPPORT SPECIALIST 05/23/2023 9:27 AM BIOMEDICAL EQUIPMENT SUPPORT SPECIALIST Karlie Escoto M.D. LAB BLOOD ADD-ON [facility] [place] [address] [place] [address], [place] [facility] [address] [place] [address] * Potassium (10/26/2022 11:31 AM CDT) Potassium, P 4.4 3.6 - 5.2 mmol/L 10/26/2022 11:56 AM CDT CNFL Blood (Blood, Venous) 10/26/2022 11:31 AM CDT 10/26/2022 11:34 AM CDT Ron Santana M.D., Ph.D. LAB BLOOD AD D-ON Performing Organization Address City/[facility]/ZIP Co de Phone Number [facility] [address] [place] [address], [facility] CNFL [facility] in [address] [address] * (ABNORMAL) Basic Metabolic Panel (10/13/2022 12:40 [...] Ivone Blunt M.D. LAB BLOOD ADD- ON [facility] [place] [address] [place] [address], [facility] STMA [facility] [address] [place] [address] from Last 3 Months or Most Recently Relevant to Health Maintenance Additional Health Concerns Infection Onset Date Last Indicated Protective Environment 09/20/2022 3 Advance Directives For more information, please contact: [phone] * Full Code (Latest Code Status on File) Date Activated Date Inactivated Comments 01/06/2022 5:12 PM 01/09/2022 4:47 PM Question Answer Comments Full Code: Discussed * Full Code Date Activated Date Inactivated Comments 06/28/2019 12:14 PM 06/29/2019 2:37 PM Question Answer Comments Full Code: Discussed Care Teams Congregational Care Pastor Relationship Specialty Start Date End Date Elsewhere, Pcp PCP - General Coreroom Foundry Laborer 06/27/19
--- OUTSIDE RECORDS SUMMARY | 2023-12-27 11:00 | XMS_ITS | Encounter Summary ---
Author Organization [facility] Address [address] [place] [address] Care Team Providers Care Tank Builder Supervisor Name Role Phone Elsewhere, Pcp Primary Care Provider Unavailabl e Encounter Details Date Type Department Care Team (Late st Contact Info) Description 11/24/2023 Clinical Communication Department of Oncology in [address] [phone] Carlotta Zee, RBuddyN. Social History Tobacco Use Types Packs/Day Years [...] week 06/30/2021 How often do you attend jain or cheondoism serv ices? Never 06/30/2021 Do you belong to any clubs o r organizations such as jain groups, unions, fraternal or athletic groups, or [...] and heating? Not hard at all 06/30/2021 [facility] - Occupational Stress Questionnaire Answer Date Recorded [...] place to sleep or slept in a chcf (including now)? No 06/30/2021 Depression Answer Date [...] Sex Assigned at Male 06/30/2021 12:19 PM MORTGAGE BANKER Gender Identity Male 06/30/2021 12:19 PM MORTGAGE BANKER Sexual Orientation Straight 06/30/2021 12 :19 PM MORTGAGE BANKER documented as of this encounter Plan of Treatment Upcoming Encounters Date Type Department Care Team (Latest Contact Info) Description 01/10/2024 7:45 AM CDT Clinical Communication Virtual Review in [place], [place] 200 [place] [address] 01/12/2024 9:40 AM CDT Ancillary Procedure Department of Cardiovascular Medicine in [place], [place] [address] [place] [phone] Ron Santana M.D., Ph.D. [address] [place] [phone] 01/12/2024 10:00 AM CDT Appointment Department of Cardiovascular Diseases in [place], [place] [address] [place] [phone] Ron Santana M.D., Ph.D. [address] [place] [phone] 01/12/2024 10:30 AM CDT Appointment Department of Laboratory Medicine and Pathology, [facility] in [place], [place] [address] [place] [phone] Ron Santana M.D., Ph.D. [address] [place] [phone] 01/12/2024 2:00 PM CDT Appointment Department of Radiology, [facility] in [place], [place] [address] [place] [phone] Ron Santana M.D., Ph.D. [address] [place] [phone] 01/13/2024 8:00 AM CDT Office Visit Department of Cardiovascular Medicine in [place], [place] [address] [place] [phone] Marilu Castaneda P.A.-C., M.S. [address] [place] [phone] 01/13/2024 10:30 AM CDT Appointment Department of Cardiovascular Diseases in [place] [phone] [place] [phone] Ron Santana M.D., Ph.D. [address] [place] [phone] 01/16/2024 12:25 PM CDT Hospital Encounter Division of Cardiovascular Diseases in [address] [phone] Ron Santana M.D., Ph.D. [address] [place] [phone] Atrial Fibrillation Longstanding Persistent (HCC) 01/16/2024 12:25 PM CDT - 01/16/2024 4:35 PM CDT Surgery Division of Cardiovascular Diseases in [place], [place] [address] [place] [phone] Ron Santana M.D., Ph.D. [address] [place] [address] PULSED FIELD ABLATION documented as of this encounter Visit Diagnoses Not on filedocumented in this encounter Additional Health Concerns Infection Onset Date Last Indicated Resolved Time Protective Environment 09/20/2022 09/20/2022 Assessment Noted Time PHQ-9 Depression Total Score: 6 07/17/19 20 10:26 AM MORTGAGE BANKER documented as of this encounter Care Teams Tank Builder Supervisor Relationship Specialty Start Date End Date Elsewhere, Pcp PCP - General Machine Former 06/27/19 documented as of this encounter
--- OUTSIDE RECORDS SUMMARY | 2023-12-27 11:00 | XMS_ITS ---
Author Organization [facility] Address [address] [place] [address] Care Team Providers Care Manager Unix Name Role Phone Elsewhere, Pcp Primary Care [...] treatments are documented for this patient in [facility]. Treatments may have been administered in another system.
--- OUTSIDE RECORDS SUMMARY | 2023-12-27 11:00 | XMS_ITS ---
Author Organization [facility] Address [address] [place] [address] Care Team Providers Care Venture Capitalist Name Role Phone Unavailable Unavailable Unavailable Surgery Details Not on file Complications Check Surgery Details section. Procedure Estimated Blood Loss Check Surgery Details section. Procedure Findings Check Surgery Details section. Procedure Specimens Taken Check Surgery Details section.
--- OUTSIDE RECORDS SUMMARY | 2023-12-27 11:01 | XMS_ITS | Encounter Summary ---
Author Organization [facility] Address [address] [place] [address] Care Team Providers Care Serology Teacher Name Role Phone Elsewhere, Pcp Primary Care Provider Unavailabl e Reason for Referral * Outpatient (Routine) - Authorized Specialty Diagnoses / Procedures Referred By Contac t Referred To Contact Cardiovascular Disease Ron Santana M.D., Ph.D. [address] [place] [phone] [facility] Referral ID Status Reason Start Date Expiration Date V isits Requested Visits Authorized [id number] Authorized 11/09/2023 05/10/2025 1 1 * MRI/CAT/PET Scan (Routine) - Authorized Specialty Diagnoses / Procedures Referred By Contac t Referred To Contact Radiology Diagnoses Atrial Fibrillation Longstanding Persistent (HCC) Procedures CT Cardiac Pulmonary Veins with IV Ron Santana M.D., Ph.D. [address] [place] [phone] [facility] Referral ID Status Reason Start Date Expiration Date V isits Requested Visits Authorized [id number] Authorized 11/09/2023 11/08/2024 1 1 * Cardiovascular-Diagnostic (Routine) - Authorized Specialty Diagnoses / Procedures Referred By Contac t Referred To Contact Diagnoses Atrial Fibrillation Longstanding Persistent (HCC) Procedures Echo Transesophageal (MERVAT) Ron Santana M.D., Ph.D. [address] [place] [phone] [facility] Referral ID Status Reason Start Date Expiration Date V isits Requested Visits Authorized [id number] Authorized 11/09/2023 11/08/2024 1 1 * Outpatient (Routine) - Authorized Specialty Diagnoses / Procedures Referred By Contac t Referred To Contact Diagnoses Atrial Fibrillation Longstanding Persistent (HCC) Procedures ECG Heart rhythm monitor (Holter) Ron Santana M.D., Ph.D. [address] [place] [phone] [facility] Referral ID Status Reason Start Date Expiration Date V isits Requested Visits Authorized [id number] Authorized 11/09/2023 11/08/2024 1 1 * Cardiovascular-Diagnostic (Routine) - Authorized Specialty Diagnoses / Procedures Referred By Contac t Referred To Contact Diagnoses Atrial Fibrillation Longstanding Persistent (HCC) Procedures Echo Transthoracic (TTE) Ron Santana M.D., Ph.D. [address] [place] [phone] [facility] Referral ID Status Reason Start Date Expiration Date V isits Requested Visits Authorized [id number] Authorized 11/09/2023 11/08/2024 1 1 * Outpatient (Routine) - Authorized Specialty Diagnoses / Procedures Referred By Contac t Referred To Contact Diagnoses Atrial Fibrillation Longstanding Persistent (HCC) Procedures ECG 12 Lead Ron Santana M.D., Ph.D. [address] [place] [phone] [facility] Referral ID Status Reason Start Date Expiration Date V isits Requested Visits Authorized [id number] Authorized 11/09/2023 11/08/2024 1 1 Encounter Details Date Type Department Care Team (Latest Contact Info) Description 11/08/2023 Clinical Communication Department of Cardiovascular Medicine in [place], [place] [address] [place] [address] Vee Jalloh R.N. [address] [place] [address] Social History Tobacco Use Types Packs/Day Years [...] week 06/30/2021 How often do you attend mormon or restorationist serv ices? Never 06/30/2021 Do you belong to any clubs o r organizations such as mormon groups, unions, fraternal or athletic groups, or [...] and heating? Not hard at all 06/30/2021 [facility] - [...] Sex Assigned at Male 06/30/2021 12:19 PM ELECTRIC MOTOR MECHANIC Gender Identity Male 06/30/2021 12:19 PM ELECTRIC MOTOR MECHANIC Sexual Orientation Straight 06/30/2021 12 :19 PM ELECTRIC MOTOR MECHANIC documented as of this encounter Miscellaneous Notes * Telephone Encounter - Vee Jalloh R.N. - 11/08/2023 1:07 PM CDT Contact Chad Jensen regarding the scheduling of their PVI ablation. Mr. Jensen was referred byDr Santana for this procedure. He had virtual visit with Dr Santana 10/06/2023 and 08/14/2023, please see his notes for details of those visits.[id number] score of 4 for age over 75,HTN, [...] Atrial Fibrillation with Dr. Santana Transesophageal echocardiogram (MREVAT): Prior to your ablation we will be [...] sedation for your procedure, so an adult city bus driver and supervision is required for 24 hours after the procedure. Please ensure you have someone present with you the day of your test. Calling in for your report time: The night before the procedure, please call the [facility] Service Line ([phone]) or the [facility] Backup Line ([phone]) between 7pm and midnight to find out what time to arrive. This automated phone line will have you type in your [facility] Number [phone] followed by # and birthdate (format of xx/xx/xxxx#) to determine your arrival time. On the day of your procedure: Check into [facility], [facility] 4th Floor (east elevators) at the [facility] 4D desk. You do not need to [...] to either live within 100 miles of [place], [place] or spend the night in [place], [place] post procedure. If you live within 100 miles and live greater than 30 minutes outside of [place], [place]); it is highly recommended that you spend the night in [place], [place]. -If you experience any complications or have questions post procedure overnight, please call the [facility] Welder Apprentice Combination at: [phone] and ask for [facility]. They will connect you to the on-call provider to assist you further. -You will receive sedation for your procedure, so an adult city bus driver and supervision is required for 24 [...] as get records faxed to us at [phone]. Another most common thing that can occur [...] first 3 months and they will determine manager long term care anticoagulation at your follow up visit. If [...] needed would be at their discretion. The [place] [facility] is happy to address any current rhythm issues but all other cares or concerns should be directed to your local primary care team. Contact information: -If you have any further questions prior to your procedure, please contact the [facility] R[facility] Services Nurse Line at [phone] (available M-F 8 am to 5 pm ELECTRIC MOTOR MECHANIC). -If you have any concerns or questions regarding your schedule, please contact the scheduling team at [phone]. -If you have any concerns or questions about your insurance or procedure coverage, please contact the business office at [phone], option 1. [facility] Specific Instructions: -We encourage you to check [email or web address] for more information onthese instructions including visitor policies. The patient verbalized understanding and agreement with instructions. All questions were answered. documented in this encounter Plan of Treatment Upcoming Encounters Date Type Department Care Team (Latest Contact Info) Description 01/10/2024 7:45 AM CDT Clinical Communication Virtual Review in [place], [place] 200 [place] [address] 01/12/2024 9:40 AM CDT Ancillary Procedure Department of Cardiovascular Medicine in [address] [phone] Ron Santana M.D., Ph.D. [address] [place] [phone] 01/12/2024 10:00 AM CDT Appointment Department of Cardiovascular Diseases in [address] [phone] Ron Santana M.D., Ph.D. [address] [place] [phone] 01/12/2024 10:30 AM CDT Appointment Department of Laboratory Medicine and Pathology, [facility] in [place], [place] [address] [place] [phone] Ron Santana M.D., Ph.D. [address] [place] [phone] 01/12/2024 2:00 PM CDT Appointment Department of Radiology, [facility] in [place], [place] [address] [place] [phone] Ron Santana M.D., Ph.D. [address] [place] [phone] 01/13/2024 8:00 AM CDT Office Visit Department of Cardiovascular Medicine in [place], [place] [address] [place] [phone] Marilu Castaneda P.A.-C., M.S. [address] [place] [phone] 01/13/2024 10:30 AM CDT Appointment Department of Cardiovascular Diseases in [place], [place] [address] [place] [phone] Ron Santana M.D., Ph.D. [address] [place] [phone] 01/16/2024 12:25 PM CDT Hospital Encounter Division of Cardiovascular Diseases in [place] [address] [place] [phone] Ron Santana M.D., Ph.D. [address] [place] [phone] Atrial Fibrillation Longstanding Persistent (HCC) 01/16/2024 12:25 PM CDT - 01/16/2024 4:35 PM CDT Surgery Division of Cardiovascular Diseases in [place], [place] [address] [place] [address] Ron Santana M.D., Ph.D. [address] [place] [address] PULSED FIELD ABLATION Scheduled Orders Name Type [...] (HCC) Expected: 01/12/2024, Expires: 11/07/2024 Thyroid Function [facility] Routine Atrial Fibrillation Longstanding Persistent (HCC) [...] Total Score: 6 07/17/19 20 10:26 AM ELECTRIC MOTOR MECHANIC documented as of this encounter Care Teams Serology Teacher Relationship Specialty Start Date End Date Elsewhere, Pcp PCP - General Court Recording Monitor 06/27/19 documented as of this encounter
--- OUTSIDE RECORDS SUMMARY | 2023-12-27 11:01 | XMS_ITS | Encounter Summary ---
Author Organization [facility] Address [address] [place] [address] Care Team Providers Care African History Professor Name Role Phone Elsewhere, Pcp Primary Care Provider Unavailabl e Reason for Visit * Outpatient (Routine) - Closed Specialty Diagnoses / Procedures Referred By Oliverio t Referred To Contact Cardiovascular Disease Ron Santana M.D., Ph.D. [address] [place] [phone] [facility] Referral ID Status Reason Start Date Expiration Date Visits Re quested Visits Authorized [id number] Closed 10/06/2023 04/06/2025 1 1 Encounter Details Date Type Department Care Team (Latest Contact Info) Description 10/06/2023 4:30 PM CDT Virtual Visit Department of Cardiovascular Medicine in [place], [place] [address] [place] [phone] Ron Santana M.D., Ph.D. [address] [place] [phone] Atrial Fibrillation Unspecified (HCC) (Primary Dx) [...] How often do you attend mandaen or latter day serv ices? Never 06/30/2021 Do you belong [...] place to sleep or slept in a halfway (including now)? No 06/30/2021 Depression Answer Date [...] Sex Assigned at Male 06/30/2021 12:19 PM PLANT CHANGER Gender Identity Male 06/30/2021 12:19 PM PLANT CHANGER Sexual Orientation Straight 06/30/2021 12 :19 PM PLANT CHANGER documented as of this encounter Progress Notes * Ron Santana M.D., Ph.D. - 10/06/2023 4:30 PM CDT ASSESSMENT / PLAN Received a message via e-mail today to visit with Mr. Jensen. I called him this afternoon at [phone]. Mr. Jensen indicated that he has been [...] a request on August 14, 2023, via [employer] for Mr. Jensen to be added to my waiting list for scheduling of catheter ablation of atrial fibrillation. Mr. Jensen indicated thathe has had no recent episodes of loss of consciousness. Ron Santana M.D., Ph.D. CT CT Job ID: [id number] documented in this encounter Plan of Treatment Upcoming Encounters Date Type Department Care Team (Latest Contact Info) Description 01/10/2024 7:45 AM CDT Clinical Communication Virtual Review in [place], [place] 200 [place] [address] 01/12/2024 9:40 AM CDT Ancillary Procedure Department of Cardiovascular Medicine in [address] [phone] Ron Santana M.D., Ph.D. [address] [place] [phone] 01/12/2024 10:00 AM CDT Appointment Department of Cardiovascular Diseases in [place], [place] [address] [place] [phone] Ron Santana M.D., Ph.D. [address] [place] [phone] 01/12/2024 10:30 AM CDT Appointment Department of Laboratory Medicine and Pathology, [facility] in [place], [place] [address] [place] [address] Ron Santana M.D., Ph.D. [address] [place] [phone] 01/12/2024 2:00 PM CDT Appointment Department of Radiology, [facility] in [place], [place] [address] [place] [phone] Ron Santana M.D., Ph.D. [address] [place] [phone] 01/13/2024 8:00 AM CDT Office Visit Department of Cardiovascular Medicine in [place], [place] [address] [place] [address] Marilu Castaneda P.A.-Nikki., M.S. [address] [place] [phone] 01/13/2024 10:30 AM CDT Appointment Department of Cardiovascular Diseases in [place], [place] [address] [place] [phone] Ron Santana M.D., Ph.D. [address] [place] [phone] 01/16/2024 12:25 PM CDT Hospital Encounter Division of Cardiovascular Diseases in [address] [phone] Ron Santana M.D., Ph.D. [address] [place] [phone] Atrial Fibrillation Longstanding Persistent (HCC) 01/16/2024 12:25 PM CDT - 01/16/2024 4:35 PM CDT Surgery Division of Cardiovascular Diseases in [address] [phone] Ron Santana M.D., Ph.D. [address] [place] [phone] PULSED FIELD ABLATION documented as of this encounter Visit Diagnoses Diagnosis Atrial Fibrillation Unspecified (HCC)- Primary Atrial Fibrillation Longstanding Persistent (HCC)- Primary Atrial Fibrillation Longstanding Persistent (HCC) documented in this encounter Additional Health Concerns Infection Onset Date Last Indicated Resolved Time Protective Environment 09/20/2022 09/20/2022 Assessment Noted Time PHQ-9 Depression Total Score: 6 07/17/19 20 10:26 AM PLANT CHANGER documented as of this encounter Care Teams African History Professor Relationship Specialty Start Date End Date Elsewhere, Pcp PCP - General Desulphurizer Operator 06/27/19 documented as of this encounter
--- OUTSIDE RECORDS SUMMARY | 2023-12-27 11:01 | XMS_ITS | Encounter Summary ---
Author Organization [facility] Address [address] [place] [address] Care Team Providers Care Operations Superintendent Name Role Phone Elsewhere, Pcp Primary Care Provider Unavailabl e Encounter Details Date Type Department Care Team (Late st Contact Info) Description 09/09/2023 Orders Only Department of Oncology in [place], [place] [address] [place] [phone] Birdie Hurtado M.D. [address] [place] [phone] Social History Tobacco Use Types Packs/Day Years [...] week 06/30/2021 How often do you attend taoist or confucianism serv ices? Never 06/30/2021 Do you belong to any clubs o r organizations such as taoist groups, unions, fraternal or athletic groups, or [...] and heating? Not hard at all 06/30/2021 [facility] Occupat ional Health - Occupational [...] place to sleep or slept in a group home (including now)? No 06/30/2021 Depression Answer [...] Sex Assigned at Male 06/30/2021 12:19 PM YACHT MASTER Gender Identity Male 06/30/2021 12:19 PM YACHT MASTER Sexual Orientation Straight 06/30/2021 12 :19 PM YACHT MASTER documented as of this encounter Plan of Treatment Upcoming Encounters Date Type Department Care Team (Latest Contact Info) Description 01/10/2024 7:45 AM CDT Clinical Communication Virtual Review in [place], [place] 200 [place] [address] 01/12/2024 9:40 AM CDT Ancillary Procedure Department of Cardiovascular Medicine in [address] [address] Ron Santana M.D., Ph.D. [address] [place] [phone] 01/12/2024 10:00 AM CDT Appointment Department of Cardiovascular Diseases in [place], [place] [address] [place] [phone] Ron Santana M.D., Ph.D. [address] [place] [phone] 01/12/2024 10:30 AM CDT Appointment Department of Laboratory Medicine and Pathology, [facility] in [place], [place] [address] [place] [phone] Ron Santana M.D., Ph.D. [address] [place] [phone] 01/12/2024 2:00 PM CDT Appointment Department of Radiology, [facility] in [place], [place] [address] [place] [phone] Ron Santana M.D., Ph.D. [address] [place] [phone] 01/13/2024 8:00 AM CDT Office Visit Department of Cardiovascular Medicine in [place], [place] [address] [place] [phone] Marilu Castaneda P.A.-C., M.S. [address] [place] [phone] 01/13/2024 10:30 AM CDT Appointment Department of Cardiovascular Diseases in [place], [place] [address] [place] [phone] Ron Santana M.D., Ph.D. [address] [place] [phone] 01/16/2024 12:25 PM CDT Hospital Encounter Division of Cardiovascular Diseases in [address] [phone] Ron Santana M.D., Ph.D. [address] [place] [phone] Atrial Fibrillation Longstanding Persistent (HCC) 01/16/2024 12:25 PM CDT - 01/16/2024 4:35 PM CDT Surgery Division of Cardiovascular Diseases in [place], [place] [address] [place] [address] Ron Santana M.D., Ph.D. [address] [place] [address] PULSED FIELD ABLATION documented as of this encounter Visit Diagnoses Not on filedocumented in this encounter Additional Health Concerns Infection Onset Date Last Indicated Resolved Time Protective Environment 09/20/2022 09/20/2022 Assessment Noted Time PHQ-9 Depression Total Score: 6 07/17/19 20 10:26 AM YACHT MASTER documented as of this encounter Care Teams Operations Superintendent Relationship Specialty Start Date End Date Elsewhere, Pcp PCP - General Scraper Loader Operator 06/27/19 documented as of this encounter
--- OUTSIDE RECORDS SUMMARY | 2023-12-27 11:01 | XMS_ITS | Encounter Summary ---
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 [address] [place] [address] [facility] Referral ID Status Reason Start Date Expiration Date V isits Requested Visits Authorized [id number] Authorized 11/17/2023 05/18/2025 1 1 Encounter Details Date Type Department Care Team (Late st Contact Info) Description 11/17/2023 Orders Only Department of Oncology in [place], [place] [address] [place] [address] Birdie Hurtado M.D. [address] [place] [address] Malignant Neoplasm Of Disseminated (HCC) [...] week 06/30/2021 How often do you attend spiritism or yarsanism serv ices? Never 06/30/2021 Do you belong to any clubs o r organizations such as spiritism groups, unions, fraternal or athletic groups, or [...] and heating? Not hard at all 06/30/2021 [facility] [place] of Occupat ional Health - Occupational Stress [...] place to sleep or slept in a detention (including now)? No 06/30/2021 Depression Answer Date [...] Sex Assigned at Male 06/30/2021 12:19 PM ATTORNEY AT LAW Gender Identity Male 06/30/2021 12:19 PM ATTORNEY AT LAW Sexual Orientation Straight 06/30/2021 12 :19 PM ATTORNEY AT LAW documented as of this encounter Plan of Treatment Upcoming Encounters Date Type Department Care Team (Latest Contact Info) Description 01/10/2024 7:45 AM CDT Clinical Communication Virtual Review in [place], [place] [address] [place] [address] 01/12/2024 9:40 AM CDT Ancillary Procedure Department of Cardiovascular Medicine in [place], [place] [address] [place] [phone] Ron Santana M.D., Ph.D. [address] [place] [phone] 01/12/2024 10:00 AM CDT Appointment Department of Cardiovascular Diseases in [place], [place] [address] [place] [phone] Ron Santana M.D., Ph.D. [address] [place] [phone] 01/12/2024 10:30 AM CDT Appointment Department of Laboratory Medicine and Pathology, [facility] in [place], [place] [address] [place] [phone] Ron Santana M.D., Ph.D. [address] [place] [phone] 01/12/2024 2:00 PM CDT Appointment Department of Radiology, [facility], in [address] [phone] Ron Santana M.D., Ph.D. [address] [place] [phone] 01/13/2024 8:00 AM CDT Office Visit Department of Cardiovascular Medicine in [place], [place] [address] [place] [phone] Marilu Castaneda P.A.-C., M.S. [address] [place] [phone] 01/13/2024 10:30 AM CDT Appointment Department of Cardiovascular Diseases in [address] [phone] Ron Santana M.D., Ph.D. [address] [place] [phone] 01/16/2024 12:25 PM CDT Hospital Encounter Division of Cardiovascular Diseases in [address] [phone] Ron Santana M.D., Ph.D. [address] [place] [phone] Atrial Fibrillation Longstanding Persistent (HCC) 01/16/2024 12:25 PM CDT - 01/16/2024 4:35 PM CDT Surgery Division of Cardiovascular Diseases in [address] [phone] Ron Santana M.D., Ph.D. [address] [place] [phone] PULSED FIELD ABLATION Scheduled Referrals Name Type [...] 10 mm nodule in right lower lobe (76) has increased from 10 x 7 mm [...] if requested. Procedure Note Art Elise M.B.B.SBuddy, M.Carlso. - 11/17/2023 EXAM: INTERPRETATION OF OUTSIDE CT [...] Interval worsening lymphadenopathy. For example, subcarinal lymph node() measures 34 mm compared to 32 mm [...] 4. New small right pleural effusion. Birdie BULLOCK CT PROCEDURES documented in this encounter Visit [...] Total Score: 6 07/17/19 20 10:26 AM ATTORNEY AT LAW documented as of this encounter Care Teams Radio Assembler Relationship Specialty Start Date End Date Elsewhere, Pcp PCP - General Clerical Support Specialist 06/27/19 documented as of this encounter
--- OUTSIDE RECORDS SUMMARY | 2023-12-27 11:01 | XMS_ITS | Encounter Summary ---
Author Organization [facility] Address [address] [place] [address] Care Team Providers Care Gyn Name Role Phone Elsewhere, Pcp Primary Care Provider Unavailabl e Reason for Referral * Outpatient (Routine) - Closed Specialty Diagnoses / Procedures Referred By Oliverio t Referred To Contact Cardiovascular Disease Ron Santana M.D., Ph.D. [address] [place] [phone] [facility] Referral ID Status Reason Start Date Expiration Date Visits Re quested Visits Authorized [id number] Closed 10/06/2023 04/06/2025 1 1 Encounter Details Date Type Department Care Team (Late st Contact Info) Description 10/06/2023 Orders Only Division of Cardiovascular Diseases in [place], [place] [address] [place] [phone] Ron Santana M.D., Ph.D. [address] [place] [phone] Social History Tobacco Use Types Packs/Day Years [...] How often do you attend baptist or latter-day serv ices? Never 06/30/2021 Do you belong [...] and heating? Not hard at all 06/30/2021 [facility] of Occupat ional Health - Occupational Stress [...] Sex Assigned at Male 06/30/2021 12:19 PM TABLE WORKER PACKAGER Gender Identity Male 06/30/2021 12:19 PM TABLE WORKER PACKAGER Sexual Orientation Straight 06/30/2021 12 :19 PM TABLE WORKER PACKAGER documented as of this encounter Plan of Treatment Upcoming Encounters Date Type Department Care Team (Latest Contact Info) Description 01/10/2024 7:45 AM CDT Clinical Communication Virtual Review in [place], [place] 200 [place] [address] 01/12/2024 9:40 AM CDT Ancillary Procedure Department of Cardiovascular Medicine in [place], [place] [address] [place] [phone] Ron Santana M.D., Ph.D. [address] [place] [phone] 01/12/2024 10:00 AM CDT Appointment Department of Cardiovascular Diseases in [place], [place] [address] [place] [phone] oRn Santana M.D., Ph.D. [address] [place] [phone] 01/12/2024 10:30 AM CDT Appointment Department of Laboratory Medicine and Pathology, [facility] in [place], [place] [address] [place] [phone] Ron Santana M.D., Ph.D. [address] [place] [phone] 01/12/2024 2:00 PM CDT Appointment Department of Radiology, [facility], in [place], [place] [address] [place] [phone] Ron Santana M.D., Ph.D. [address] [place] [phone] 01/13/2024 8:00 AM CDT Office Visit Department of Cardiovascular Medicine in [place], [place] [address] [place] [phone] Marilu Castaneda P.A.-C., M.S. [address] [place] [phone] 01/13/2024 10:30 AM CDT Appointment Department of Cardiovascular Diseases in [address] [phone] Ron Santana M.D., Ph.D. [address] [place] [phone] 01/16/2024 12:25 PM CDT Hospital Encounter Division of Cardiovascular Diseases in [address] [phone] Ron Santana M.D., Ph.D. [address] [place] [phone] Atrial Fibrillation Longstanding Persistent (HCC) 01/16/2024 12:25 PM CDT - 01/16/2024 4:35 PM CDT Surgery Division of Cardiovascular Diseases in [address] [phone] Ron Santana M.D., Ph.D. [address] [place] [phone] PULSED FIELD ABLATION Scheduled Referrals Name Type [...] Total Score: 6 07/17/19 20 10:26 AM TABLE WORKER PACKAGER documented as of this encounter Care Teams Gyn Relationship Specialty Start Date End Date Elsewhere, Pcp PCP - General Plastic Surgeon 06/27/19 documented as of this encounter
--- OUTSIDE RECORDS SUMMARY | 2023-12-27 11:01 | XMS_ITS | Encounter Summary ---
Author Organization [facility] Address [address] [place] [address] Care Team Providers Care Circular Clerk Name Role Phone Elsewhere, Pcp Primary Care Provider Unavailabl e Encounter Details Date Type Department Care Team (Latest Contact Info) Description 11/09/2023 Clinical Communication Department of Cardiovascular Medicine in [place], [place] [address] [place] [address] Regional Tanker Truck DriverZelalem M.D. Social History Tobacco Use Types Packs/Day [...] How often do you attend sabianist or amish serv ices? Never 06/30/2021 Do you belong [...] and heating? Not hard at all 06/30/2021 [facility] of Occupat ional Health - [...] Sex Assigned at Male 06/30/2021 12:19 PM FITNESS FLOOR ATTENDANT Gender Identity Male 06/30/2021 12:19 PM FITNESS FLOOR ATTENDANT Sexual Orientation Straight 06/30/2021 12 :19 PM FITNESS FLOOR ATTENDANT documented as of this encounter Plan of Treatment Upcoming Encounters Date Type Department Care Team (Latest Contact Info) Description 01/10/2024 7:45 AM CDT Clinical Communication Virtual Review in [address] [phone] 01/12/2024 9:40 AM CDT Ancillary Procedure Department of Cardiovascular Medicine in [address] [phone] Ron Santana M.D., Ph.D. [address] [place] [phone] 01/12/2024 10:00 AM CDT Appointment Department of Cardiovascular Diseases in [address] [phone] Ron Santana M.D., Ph.D. [address] [place] [phone] 01/12/2024 10:30 AM CDT Appointment Department of Laboratory Medicine and Pathology, [facility] in [place], [place] [address] [place] [phone] Ron Santana M.D., Ph.D. [address] [place] [phone] 01/12/2024 2:00 PM CDT Appointment Department of Radiology, [facility] in [place], [place] [address] [place] [phone] Ron Santana M.D., Ph.D. [address] [place] [phone] 01/13/2024 8:00 AM CDT Office Visit Department of Cardiovascular Medicine in [place], [place] [address] [place] [phone] Marilu Castaneda P.A.-Nikki., M.S. [address] [place] [phone] 01/13/2024 10:30 AM CDT Appointment Department of Cardiovascular Diseases in [place], [place] [address] [place] [phone] Ron Santana M.D., Ph.D. [address] [place] [phone] 01/16/2024 12:25 PM CDT Hospital Encounter Division of Cardiovascular Diseases in [address] [phone] Ron Santana M.D., Ph.D. [address] [place] [phone] Atrial Fibrillation Longstanding Persistent (HCC) 01/16/2024 12:25 PM CDT - 01/16/2024 4:35 PM CDT Surgery Division of Cardiovascular Diseases in [place], [place] [address] [place] [phone] Ron Santana M.D., Ph.D. [address] [place] [address] PULSED FIELD ABLATION documented as of this encounter Visit Diagnoses Not on filedocumented in this encounter Additional Health Concerns Infection Onset Date Last Indicated Resolved Time Protective Environment 09/20/2022 09/20/2022 Assessment Noted Time PHQ-9 Depression Total Score: 6 07/17/19 20 10:26 AM FITNESS FLOOR ATTENDANT documented as of this encounter Care Teams Circular Clerk Relationship Specialty Start Date End Date Elsewhere, Pcp PCP - General Dial Mounter 06/27/19 documented as of this encounter
--- OUTSIDE RECORDS SUMMARY | 2023-12-27 11:01 | XMS_ITS | Clinical Summary ---
Author Organization [facility] Address [place], [place] [address] Care Team Providers Care Hosiery Operator Name Role Phone Nikki Reilly DO Primary Care Provider [phone] Allergies Active Allergy Reactions Criticality Noted Date Comments Ibrutinib Rash High 04/12/2022 Penicillins Hives Medications Medication Sig Dispensed Refills Start Date End Date Status docusate (COLACE) 100 mg capsuleIndications: Chronic constipation Take 1 capsule by mouth 2 times daily if needed for Constipation. 30 capsule 07/04/2019 Active magnesium chloride delayed release tabletIndications:L ow magnesium level One oral every day 90 tablet 09/11/2019 Active calcium carbonate CHEWABLE (MAALOX QUICK DISSOLVE) 400 mg calcium (1,000 mg) chew Take 1 Tab by mouth. Active famotidine (PEPCID) 20 mg tablet Take 20 mg by mouth. Active atorvastatin (LIPITOR) 20 mg tablet Take 20 mg by mouth once daily. 10/14/2021 Active Calquence, acalabrutinib mal, 100 mg tablet Take 100 mg by mouth. 10/06/2022 Active lisinopriL (PRINIVIL; ZESTRIL) 10 mg tablet 10 mg. 06/27/2022 Active metoprolol tartrate (LOPRESSOR) 25 mg tablet Take 1 Tablet (25 mg) by mouth two times daily. 60 Tablet 11 12/23/2022 Active rivaroxaban (XARELTO) 20 mg tabletIndications:L ongstanding persistent atrial fibrillation (HC) Take 1 Tablet (20 mg) by mouth once daily with evening meal. 0 12/23/2022 Active ferrous sulfate 325 mg delayed release tabletIndications:M icrocytic anemia Take 1 Tablet (325 mg) by mouth once daily with a meal. 65 mg three times daily. 90 Tablet 3 12/23/2022 Active fluticasone (50 mcg per actuation) nasal solution (FLONASE)Indication s:Bleeding Inhale 2 Sprays to both nostrils once daily. 16 g 07/08/2023 Active levothyroxine (SYNTHROID) 75 mcg tabletIndications:H ypothyroidism (acquired) TAKE ONE TABLET BY MOUTH ONCE EVERY DAY BEFORE BREAKFAST. 90 Tablet 3 09/08/2023 Active tamsulosin (FLOMAX) 0.4 mg capsuleIndications: Nocturia TAKE ONE CAPSULE BY MOUTH EVERY DAY AFTER A MEAL 90 Capsule 2 09/30/2023 Active ALPRAZolam (XANAX) 0.25 mg tabletIndications:A goraphobia with panic attacks TAKE ONE TABLET BY MOUTH EVERY 8 HOURS NEEDED FOR ANXIETY OR PANIC 20 Tablet 12/19/2023 Active ALPRAZolam (XANAX) 0.25 mg tabletIndications:A goraphobia with panic attacks TAKE ONE TABLET BY MOUTH EVERY 8 HOURS NEEDED FOR ANXIETY OR PANIC 20 Tablet 07/07/2023 4 Discontinued Active Problems Problem Noted Date Diagnosed Date [...] Encounters Date Type Department Care Team Description 12/19/2023 Refill [facility] [address] [place] [address] Nikki Reilly, DO Refill Request (Alprazolam) 11/24/2023 Orders Only [facility] Scanner 1 scan: (1-Ord) ESPARTO, PET SKULL TO MID THIGH, 11/24/2023 11/22/2023 Orders Only [facility] Scanner 1 scan: (1-Ord) ESPARTO, CT OF THE NECK, 11/22/2023 11/10/2023 Orders Only [facility] Scanner 1 scan: (1-Ord) ESPARTO, CHEST ABDOMEN PELV W/CON, 11/10/2023 09/29/2023 Refill [facility] [address] [place] [address] Nikki Reilly, DO Refill Request (Tamsulosin) from Last 3 Months Immunizations Name Administration [...] of Communication with Friends and Fami ly Not on file 12/25/2023 Financial Resource Strain Answer Date R ecorded [...] Comments Blood Pressure 158/84 07/08/2023 11:24 AM TYPING ELEMENT MACHINE OPERATOR Pulse 72 07/08/2023 11:24 AM TYPING ELEMENT MACHINE OPERATOR Temperature 36.9 ??C (98.4 ??F) 04/23/2020 11:[address] Respiratory Rate 16 03/20/2020 2:20 PM CDT Oxygen Saturation 99% 07/08/2023 11:24 AM TYPING ELEMENT MACHINE OPERATOR Inhaled Oxygen Concentration - - Weight 79.8 kg (176 lb) 07/08/2023 11:24 AM TYPING ELEMENT MACHINE OPERATOR Height 175.2 cm (5' 8.98) 12/23/2022 9:23 [...] Procedure Name Priority Date/Time Associated Diagnosis Comments SCAN-PET SCAN 11/24/2023 12:00 AM CDT SCAN-CT INTERPRETATION 4 12:00 AM CDT SCAN-CT INTERPRETATION 4 12:00 AM CDT ANTI HCV Routine 03/09/2018 10:39 AM CDT Need for hepatitis C screening test from Last 3 Months or Most Recently Relevant to Health Maintenance Results * SCAN-PET SCAN (11/24/2023 12:00 AM CDT) Anatomical Region Laterality Modality Other Scanner OTHER * SCAN-CT INTERPRETATION (11/22/2023 12:00 AM CDT) Only the most recent of2 resultswithin the time period is included. Anatomical Region Laterality Modality Other Scanner OTHER * ANTI HCV [98893.2] (03/09/2018 10:39 AM CDT) HEPATITIS C ANTIBODY Non-React irlanda Non-React irlanda 03/09/2018 5:05 PM CDT [facility] Comment:Antibodies to HCV no t detected; does not exclude the possibility of exposure to HCV. Blood BLOOD SPECIMEN / Unknown Venipuncture / Unknown 03/09/2018 10:39 AM CDT 03/09/2018 10:39 AM CDT Ron Garcia MD SEND OUTS [facility] [address] [place] [address], [place] from Last 3 Months or Most Recently Relevant to Health Maintenance Advance Directives * Full Code (Latest Code Status on File) Date Activated Date Inactivated Comments 11/22/2011 11:07 AM 11/22/2011 3:00 PM * Full Code Date Activated Date Inactivated Comments 11/22/2011 9:03 AM 11/22/2011 11:07 AM Care Teams Hosiery Operator Relationship Specialty Start Date End Date Nikki Reilly DO [address] [place] [address] PCP - General Family Practice 12/15/22
--- OUTSIDE RECORDS SUMMARY | 2023-12-27 11:01 | XMS_ITS | Encounter Summary ---
Author Organization [facility] Address [address] [place] [address] Care Team Providers Care Brazer Production Line Name Role Phone Elsewhere, Pcp Primary Care Provider Unavailabl e Reason for Visit * Reason Onset Date Comments Med Question 10/06/2023 Calquence dosage / ablation list Encounter Details Date Type Department Care Team (Latest Contact Info) Description 10/06/2023 Clinical Communication Department of Cardiovascular Medicine in [place], [place] [address] [place] [address] Ron Santana M.D., Ph.D. [address] [place] [address] Med Question (Calquence dosage / ablation list) [...] How often do you attend mandaen or rastafarian serv ices? Never 06/30/2021 Do you belong [...] and heating? Not hard at all 06/30/2021 [facility] [place] of Occupat ional Health - Occupational Stress [...] Sex Assigned at Male 06/30/2021 12:19 PM RACKET STRINGER Gender Identity Male 06/30/2021 12:19 PM RACKET STRINGER Sexual Orientation Straight 06/30/2021 12 :19 PM RACKET STRINGER documented as of this encounter Miscellaneous Notes [...] AM CDT Clinical Communication Virtual Review in [address] [phone] 01/12/2024 9:40 AM CDT Ancillary Procedure Department of Cardiovascular Medicine in [address] [phone] Ron Santana M.D., Ph.D. [address] [place] [phone] 01/12/2024 10:00 AM CDT Appointment Department of Cardiovascular Diseases in [address] [phone] Rno Santana M.D., Ph.D. [address] [place] [phone] 01/12/2024 10:30 AM CDT Appointment Department of Laboratory Medicine and Pathology, [facility] in [address] [address] Ron Santana M.D., Ph.D. [address] [place] [phone] 01/12/2024 2:00 PM CDT Appointment Department of Radiology, [facility] in [address] [phone] Ron Santana M.D., Ph.D. [address] [place] [phone] 01/13/2024 8:00 AM CDT Office Visit Department of Cardiovascular Medicine in [place], [place] [address] [place] [phone] Marilu Castaneda P.A.-C., M.S. [address] [place] [phone] 01/13/2024 10:30 AM CDT Appointment Department of Cardiovascular Diseases in [place], [place] [address] [place] [phone] Ron Santana M.D., Ph.D. [address] [place] [phone] 01/16/2024 12:25 PM CDT Hospital Encounter Division of Cardiovascular Diseases in [address] [phone] Ron Santana M.D., Ph.D. [address] [place] [phone] Atrial Fibrillation Longstanding Persistent (HCC) 01/16/2024 12:25 PM CDT - 01/16/2024 4:35 PM CDT Surgery Division of Cardiovascular Diseases in [address] [phone] Ron Santana M.D., Ph.D. [address] [place] [phone] PULSED FIELD ABLATION documented as of this encounter Visit Diagnoses Not on filedocumented in this encounter Additional Health Concerns Infection Onset Date Last Indicated Resolved Time Protective Environment 09/20/2022 09/20/2022 Assessment Noted Time PHQ-9 Depression Total Score: 6 07/17/19 20 10:26 AM RACKET STRINGER documented as of this encounter Care Teams Brazer Production Line Relationship Specialty Start Date End Date Elsewhere, Pcp PCP - General Record Clerk 06/27/19 documented as of this encounter
--- OUTSIDE RECORDS SUMMARY | 2023-12-27 11:01 | XMS_ITS | Encounter Summary ---
Author Organization [facility] Address [address] [place] [address] Care Team Providers Care Cream Dumper Name Role Phone Elsewhere, Pcp Primary Care Provider Unavailabl e Reason for Visit * Reason Comments Med Refill Encounter Details Date Type Department Care Team (Late st Contact Info) Description 10/08/2023 Refill Department of Cardiovascular Diseases in [address] [phone] Flo Nazario M.D. [address] [place] [phone] Med Refill Social History Tobacco Use Types [...] How often do you attend religion or anglican serv ices? Never 06/30/2021 Do [...] and heating? Not hard at all 06/30/2021 [facility] [place] of Occupat ional Health - Occupational Stress [...] place to sleep or slept in a correction (including now)? No 06/30/2021 Depression Answer Date [...] Sex Assigned at Male 06/30/2021 12:19 PM BEAM CARRIER HAULER PUSHER Gender Identity Male 06/30/2021 12:19 PM BEAM CARRIER HAULER PUSHER Sexual Orientation Straight 06/30/2021 12 :19 PM BEAM CARRIER HAULER PUSHER documented as of this encounter Plan of Treatment Upcoming Encounters Date Type Department Care Team (Latest Contact Info) Description 01/10/2024 7:45 AM CDT Clinical Communication Virtual Review in [place], [place] 200 [place] [phone] 01/12/2024 9:40 AM CDT Ancillary Procedure Department of Cardiovascular Medicine in [place], [place] [address] [place] [phone] Ron Santana M.D., Ph.D. [address] [place] [phone] 01/12/2024 10:00 AM CDT Appointment Department of Cardiovascular Diseases in [place], [place] [address] [place] [address] Ron Santana M.D., Ph.D. [address] [place] [phone] 01/12/2024 10:30 AM CDT Appointment Department of Laboratory Medicine and Pathology, [facility] in [place], [place] [address] [place] [address] Ron Santana M.D., Ph.D. [address] [place] [phone] 01/12/2024 2:00 PM CDT Appointment Department of Radiology, [facility] in [place], [place] [address] [place] [address] Ron Santana M.D., Ph.D. [address] [place] [phone] 01/13/2024 8:00 AM CDT Office Visit Department of Cardiovascular Medicine in [place], [place] [address] [place] [address] Marilu Castaneda P.A.-C., M.S. [address] [place] [phone] 01/13/2024 10:30 AM CDT Appointment Department of Cardiovascular Diseases in [place], [place] [address] [place] [phone] Ron Santana M.D., Ph.D. [address] [place] [phone] 01/16/2024 12:25 PM CDT Hospital Encounter Division of Cardiovascular Diseases in [place], [place] [address] [place] [phone] Ron Santana M.D., Ph.D. [address] [place] [address] Atrial Fibrillation Longstanding Persistent (HCC) 01/16/2024 12:25 PM CDT - 01/16/2024 4:35 PM CDT Surgery Division of Cardiovascular Diseases in [place], [place] [address] [place] [phone] Ron Santana M.D., Ph.D. [address] [place] [phone] PULSED FIELD ABLATION documented as of this encounter Visit Diagnoses Not on filedocumented in this encounter Additional Health Concerns Infection Onset Date Last Indicated Resolved Time Protective Environment 09/20/2022 09/20/2022 Assessment Noted Time PHQ-9 Depression Total Score: 6 07/17/19 20 10:26 AM BEAM CARRIER HAULER PUSHER documented as of this encounter Care Teams Cream Dumper Relationship Specialty Start Date End Date Elsewhere, Pcp PCP - General Job Recruiter 06/27/19 documented as of this encounter
--- NOTE | 2023-12-27 11:15 | CRLHL7_ITS ---
For Patients: As a result of the Cures Act, medical imaging exams and procedure reports are released immediately into your electronic medical record. You may view this report before your referring provider. If you have questions, please contact your health care provider. Indication: increased left arm swelling with pitting edema, asses for progression of hematoma Technique: Grayscale and color Doppler ultrasound of the left anterior forearm soft tissues performed. Comparison: CT PET 11/24/2023 Findings: Mild subcutaneous edema is present without fluid collection or abscess. No soft tissue mass. No abnormal vascularity. Impression: No evidence of hematoma. Mild edema. Dictated by Ron Walters MD @ 12/27/2023 12:41:23 PM (Electronically Signed)
== END 2023-12-27 10:58 | disposition home or self-care (01) ==
LOC: US 10:58
PROVIDERS: PCP Student in an Organized Health Care Education/Training Program; Visit Provider Clinical Nurse Specialist
DX: M79.89 Other specified soft tissue disorders (principal); R60.9 Edema, unspecified
CPT/HCPCS: 76882

== ENCOUNTER 2024-02-23 16:32 | Emergency (ER) | payer MEDICARE, BC, SELFPAY ==
[2024-02-23 16:38] VITALS: BP 158/71; PULSE 83; RESP 16; TEMP 38.4; O2SAT 94; BMI 24.1
--- OUTSIDE RECORDS SUMMARY | 2024-02-23 18:06 | XMS_ITS | Encounter Summary ---
Author Organization [facility] Address [address] [place] [id number] Care Team Providers Care Electrical Instrument Maker Name Role Phone Elsewhere, Pcp Primary Care Provider Unavailabl e Reason for Referral * MRI/CAT/PET Scan (Routine) - Closed Specialty Diagnoses / Procedures Referred By Contac t Referred To Contact Radiology Diagnoses Atrial Fibrillation Longstanding Persistent (HCC) Procedures CT Cardiac Pulmonary Veins with IV Ron Santana M.D., Ph.D. [address] [place] [phone] [facility] Referral ID Status Reason Start Date Expiration Date Visits Re quested Visits Authorized [id number] Closed 11/09/2023 11/08/2024 1 1 Reason for Visit * MRI/CAT/PET Scan (Routine) - Closed Specialty Diagnoses / Procedures Referred By Contac t Referred To Contact Radiology Diagnoses Atrial Fibrillation Longstanding Persistent (HCC) Procedures CT Cardiac Pulmonary Veins with IV Ron Santana M.D., Ph.D. [address] [place] [phone] [facility] Referral ID Status Reason Start Date Expiration Date Visits Re quested Visits Authorized [id number] Closed 11/09/2023 11/08/2024 1 1 Encounter Details Date Type Department Care Team (Latest Contact Info) Description 01/12/2024 1:13 PM CDT - 01/12/2024 2:33 PM CDT Hospital Encounter Department of Radiology, [facility], in [place], [place] [address] [place] [address] [place] [phone] Ron Santana M.D., Ph.D. 200 [place] [phone] Atrial Fibrillation Longstanding Persistent (HCC) Discharge Disposition: Home or Self Care Social History Tobacco Use Types Packs/Day Years Used Date Smoking Tobacco: Never Smokeless Tobacco: Never Alcohol Use Standard Drinks/Week Comments Never 0 (1 standard drink = 0.6 oz pur e alcohol) [facility] Utilities Answer Date Recorded In the past 12 months has th e electric, gas, oil, or water company threatened to shut off services in your home? No 01/13/2024 Humiliation, Afraid, Rape, and Kick questionnair e [...] week 06/30/2021 How often do you attend yarsanism or latter-day serv ices? Never 06/30/2021 Do you belong to any clubs o r organizations such as yarsanism groups, unions, fraternal or athletic groups, or [...] and heating? Not hard at all 06/30/2021 [facility]ational Stress Questionnaire Answer [...] to strenuous exercise (like a brisk walk)? 0 days 01/13/2024 On average, how many minutes do you engage in exercise at this level? 0 min 01/13/2024 Hunger Vital Sign Answer Date Recorded Within the past 12 months, y ou worried that your food would run out before you got the money to buy more. Never true 01/13/20 24 Within the past 12 months, t he food you bought just didn't last and you didn't have money to get more. Never true 01/13/2024 PRAPARE - Transportation Answer Date Re corded In the past 12 months, has l ack of transportation kept you from medical appointments or from getting medications? No 02/2024 In the past 12 months, has l ack of transportation kept you from meetings, work, or from getting things needed for daily living? No 01/13/2024 Depression Answer Date Recor ded PHQ-9 Total Score (max 27) 6 07/17 Nutrition Answer Date Recorded On average, how many serving s of fruits and vegetables do you eat per day (serving size is equal to 1 cup or approximately the size of a tennis ball)? 3-5 01/13/2024 Dental Answer Date Recorded Dental: Regular Dentist Yes 06/30/19 Employment Answer Date Recorded Employment status Retired 01/13/2024 Housing Stability Answer Date Recorded What is your living situation today? [facility] to live 01/13/2024 Education Answer Date Recorded What is the highest level of school you have completed or the highest degree you have received? Professional school degree (e.g., MD, DDS, DVM, GRACIELA) 06/30/2021 Sex and Gender Information Value Date Recorded Sex Assigned at Male 06/30/2021 12:19 PM VEGETABLE PICKER Gender Identity Male 06/30/2021 12:19 PM VEGETABLE PICKER Sexual Orientation Straight 06/30/2021 12 :19 PM VEGETABLE PICKER documented as of this encounter Medications at Time of Discharge Medication Sig Dispensed Refills Start Date End Date ALPRAZolam (XANAX) 0.25 mg tablet Take 0.125 mg by mouth as needed for anxiety. 08/16/2018 amiodarone (Pacerone) 200 mg tablet Take 0.5 tablets (100 mg total) by mouth daily. 45 tablet 3 12/22/2023 atorvastatin (LIPITOR) 20 mg tablet TAKE ONE TABLET BY MOUTH ONCE EVERY DAY 90 tablet 3 10/11/2023 calcium carbonate (calcium carbonate) 1000 mg (400 mg calcium) chewable tablet Chew 1 tablet daily. Calquence, acalabrutinib mal, 100 mg tablet Take 100 mg by mouth. 10/06/2022 famotidine (PEPCID) 20 mg tablet Take 20 mg by mouth daily. ferrous sulfate 325 mg (65 mg iron) DR tablet Take 325 mg by mouth. 12/23/2022 magnesium chloride (Slow-Mag) 71.[address] tablet [...] 24 hr capsule 0.4 mg daily. 01/14/2022 lisinopriL (PRINIVIL,ZESTRIL) 10 mg tablet Take 1 tablet (10 mg total) by mouth 2 (two) times a day. 270 tablet 3 02/23/2023 01/13/2024 documented as of this encounter Plan of Treatment Upcoming Encounters Date Type Department Care Team (Latest Contact Info) Description 03/07/2024 1:00 PM CDT Clinical Communication Virtual Review in [place], [place] 200 [place] [phone] 03/13/2024 8:15 AM CDT Appointment Department of Radiology, [facility] in [place], [place] [address] [place] [phone] Marilu Castaneda P.A.-C., M.S. [address] [place] [phone] 03/13/2024 8:40 AM CDT Appointment Department of Laboratory Medicine and Pathology, [facility] in [place], [place] [address] [place] [phone] Loraine Thakkar M.D. [address] [place] [phone] 03/13/2024 10:00 AM CDT Comprehensive Visit Department of Cardiovascular Medicine in [place], [place] [address] [place] [phone] Loraine Thakkar M.D. [address] [place] [phone] 03/26/2024 12:15 PM CDT Appointment Department of Radiology, [facility] in [place], [place] [address] [place] [phone] Birdie Hurtado M.D. [address] [place] [phone] documented as of this encounter Procedures Procedure Name Priority Date/Time Associated Diagnosis Comments CT CARDIAC PULMONARY VEINS WITH IV CONTRAST RAD - Routine (most inpatients and all outpatients) 01/12/2024 2:23 PM CDT Atrial Fibrillation Longstanding Persistent (HCC) documented in this encounter Results * CT Cardiac Pulmonary Veins with IV (01/12/2024 2:23 PM CDT) Anatomical Region Laterality Modality Cardiac, Cardiovascular RST LOS, Thoracic ARZ LOS, Cardiovascular FLA LOS N/A Computed Tomography, Compute d Tomography 01/12/2024 2:16 PM CDT Impressions 01/12/2024 3:14 PM CDT 1. Conventional pulmonary vein anatomy. No pulmonary vein stenosis. 2. Negative for intracardiac mass or thrombus including the left atrial appendage. 3. Tiny 4 to 5 mm interatrial septal defect with [id number]-fusdw flow, likely iatrogenic related to prior septal puncture. 4. Shifting patchy bilateral groundglass opacities in the central lung predominance have overall mildly increased. New mild patchy consolidation in the lingula. Findings are suspicious for an infectious/inflammatory process. Edema could also be considered given the scattered interlobular septal thickening, though the septal thickening has mildly improved. 5. Shifting multiple bilateral solid and part solid pulmonary nodules including multiple new and multiple decreasing and resolved nodules which may be infectious/inflammatory. No definite enlarging nodules. 6. Increased small to moderate left and small right pleural effusions. 7. The majority of the thoracic lymphadenopathy compatible with CLL has not significantly changed, though a few nodes have slightly increased. Narrative 01/12/2024 3:14 PM CDT EXAM: ??CT CARDIAC PULMONARY VEINS WITH IV CONTRAST Including 3D image post-processing with or without AI assistance. COMPARISON: ??Outside CT chest 11/10/2023. ? FINDINGS: ? PULMONARY VEINS: 2 right and 2 left pulmonary veins draining to the left atrium. Late confluence of the inferior pulmonary veins just prior to the ostia on the right and on the left. No pulmonary vein stenosis. Mild calcification adjacent to the ostium of the left superior pulmonary vein compatible with prior ablation. CARDIOVASCULAR FINDINGS: ?? Negative for intracardiac mass or thrombus including the left atrial appendage. Biatrial enlargement. Tiny left atrial roof diverticulum. Tiny 4 to 5 mm interatrial septal defect with bnsn-uc-nvbil flow, likely related to prior septal puncture. MitraClip. Mild mitral annulus calcification. Mild aortic valve calcification. Normal pericardial thickness. Stable trace pericardial fluid. Severe coronary artery calcification. Borderline dilation of the ascending aorta, 40 mm. Mild atherosclerotic aortic and branch arterial calcification. Left-sided aortic arch with normal variant direct origin of the left vertebral artery. Mild central pulmonary artery enlargement compatible with known pulmonary hypertension. ADDITIONAL FINDINGS: ? Patchy bilateral groundglass opacities throughout both lungs with probable central lung predominance, shifted in distribution and overall increased compared to 11/10/2023. New mild patchy regions of consolidation predominantly in the lingula. Mild scattered interlobular septal thickening, mildly improved. Multiple bilateral small solid and part solid pulmonary nodules. Multiple nodules are new while multiple prior nodules have decreased and resolved. Several tiny nodules are stable. No definite enlarging nodules. Tiny bilateral calcified granulomas. Moderate multistation mediastinal, mild to moderate bilateral hilar, and mild bilateral axillary lymphadenopathy. Several mediastinal and hilar lymph nodes are partially calcified. The majority of the lymphadenopathy has not significantly changed compared to 11/10/2023 including subcarinal lymphadenopathy measuring up to 30 mm short axis (series 5 image 189) though a few lymph nodes have slightly increased including a 15 mm short axis lower paratracheal node (image 126) which measured 13 mm previously. A 24 mm short axis right lower paratracheal lymph node may have mildly increased (image 129), though partially obscured by streak artifact on the prior exam. Small to moderate left and small right pleural effusions, increased compared to 11/10/2023. Tiny probable hepatic cysts. Hypertrophic degenerative changes of the spine. Procedure Note Clark Black M.D. - 01/12/2024 EXAM: CT CARDIAC PULMONARY VEINS WITH IV CONTRAST Including 3D image post-processing with or without AI assistance. COMPARISON: Outside CT chest 11/10/2023. FINDINGS: PULMONARY VEINS: 2 right and 2 left pulmonary veins draining to the left atrium. Lateconfluence of the inferior pulmonary veins just prior to the ostia on theright and on the left. No pulmonary vein stenosis. Mild calcificationadjacent to the ostium of the left superior pulmonary vein compatible with prior ablation. CARDIOVASCULAR FINDINGS: Negative for intracardiac mass or thrombus including the left atrialappendage. Biatrial enlargement. Tiny left atrial roof diverticulum. Tiny4 to 5 mm interatrial septal defect with qnfs-ln-pjsgv flow, likelyrelated to prior septal puncture. MitraClip. Mild mitral annulus calcification. Mild aortic valvecalcification. Normal pericardial thickness. Stable trace pericardialfluid. Severe coronary artery calcification. Borderline dilation of the ascending aorta, 40 mm. Mild atheroscleroticaortic and branch arterial calcification. Left-sided aortic arch withnormal variant direct origin of the left vertebral artery. Mild central pulmonary artery enlargement compatible with known pulmonaryhypertension. ADDITIONAL FINDINGS: Patchy bilateral groundglass opacities throughout both lungs with probablecentral lung predominance, shifted in distribution and overall increasedcompared to 11/10/2023. New mild patchy regions of consolidationpredominantly in the lingula. Mild scattered interlobular septal thickening, mildly improved. Multiplebilateral small solid and part solid pulmonary nodules. Multiple nodulesare new while multiple prior nodules have decreased and resolved. Severaltiny nodules are stable. No definite enlarging nodules. Tiny bilateral calcified granulomas. Moderate multistation mediastinal, mild to moderate bilateral hilar, andmild bilateral axillary lymphadenopathy. Several mediastinal and hilarlymph nodes are partially calcified. The majority of the lymphadenopathyhas not significantly changed compared to 11/10/2023 including subcarinal lymphadenopathy measuring up to30 mm short axis (series 5 image 189) though a few lymph nodes haveslightly increased including a 15 mm short axis lower paratracheal node(image 126) which measured 13 mm previously. A 24 mm short axis right lower paratracheal lymph node mayhave mildly increased (image 129), though partially obscured by streakartifact on the prior exam. Small to moderate left and small right pleural effusions, increasedcompared to 11/10/2023. Tiny probable hepatic cysts. Hypertrophic degenerative changes of the spine. IMPRESSION: 1. Conventional pulmonary vein anatomy. No pulmonary vein stenosis. 2. Negative for intracardiac mass or thrombus including the left atrialappendage. 3. Tiny 4 to 5 mm interatrial septal defect with orwj-dw-bwcqe flow,likely iatrogenic related to prior septal puncture. 4. Shifting patchy bilateral groundglass opacities in the central lungpredominance have overall mildly increased. New mild patchy consolidationin the lingula. Findings are suspicious for an infectious/inflammatoryprocess. Edema could also be considered given the scattered interlobular septal thickening, though theseptal thickening has mildly improved. 5. Shifting multiple bilateral solid and part solid pulmonary nodulesincluding multiple new and multiple decreasing and resolved nodules whichmay be infectious/inflammatory. No definite enlarging nodules. 6. Increased small to moderate left and small right pleural effusions. 7. The majority of the thoracic lymphadenopathy compatible with CLL hasnot significantly changed, though a few nodes have slightly increased. Ron Santana M.D., Ph.D. IMG CT PROCE NISHA documented in this encounter Visit Diagnoses Diagnosis Atrial Fibrillation Longstanding Persistent (HCC) documented in this encounter Administered Medications Inactive Administered Medications - up to 3 most recent administrations Medication Order MAR Action Action Date Dose Rate Site iopromide 370 mg iodine/mL injection 1-162 mL (Ultravist) 1-162 mL, intravenous, Once in imaging, contrast, Starting on Olivia 01/12/24 at 1359, For 1 dose, Imaging Protocol Orders, Dose per Radiant Medication Guidelines Given 01/12/2024 2:03 PM CDT 140 mL sodium chloride (PF) 0.9 % injection 1-100 mL 1-100 mL, intravenous, Once, On Olivia 01/12/24 at 1415, For 1 dose, Imaging Protocol Orders, Dose per Radiant Medication Guidelines Given 01/12/2024 2:03 PM CDT 50 mL documented in this encounter Additional Health Concerns Infection Onset Date Last Indicated Resolved Time Protective Environment 09/20/2022 09/20/2022 Assessment Noted Time PHQ-9 Depression Total Score: 6 07/17/19 20 10:26 AM VEGETABLE PICKER documented as of this encounter Care Teams Electrical Instrument Maker Relationship Specialty Start Date End Date Elsewhere, Pcp PCP - General Retail District Manager 06/27/19 documented as of this encounter
--- OUTSIDE RECORDS SUMMARY | 2024-02-23 18:06 | XMS_ITS | Encounter Summary ---
Author Organization [facility] Address [address] [place] [id number] Care Team Providers Care Spinning Lathe Operator Automatic Name Role Phone Elsewhere, Pcp Primary Care Provider Unavailabl e Reason for Referral * Cardiovascular-Diagnostic (Routine) - Closed Specialty Diagnoses / Procedures Referred By Emirac t Referred To Contact Diagnoses Atrial Fibrillation Longstanding Persistent (HCC) Procedures Echo Transesophageal (MERVAT) Ron Santana M.D., Ph.D. [address] [place] [phone] [facility] Referral ID Status Reason Start Date Expiration Date Visits Re quested Visits Authorized [id number] Closed 11/09/2023 11/08/2024 1 1 Reason for Visit * Cardiovascular-Diagnostic (Routine) - Closed Specialty Diagnoses / Procedures Referred By Contac t Referred To Contact Diagnoses Atrial Fibrillation Longstanding Persistent (HCC) Procedures Echo Transesophageal (MERVAT) Ron Santana M.D., Ph.D. [address] [place] [address] [facility] Referral ID Status Reason Start Date Expiration Date Visits Re quested Visits Authorized [id number] Closed 11/09/2023 11/08/2024 1 1 Encounter Details Date Type Department Care Team (Latest Contact Info) Description 01/13/2024 10:01 AM CDT - 01/13/2024 11:59 PM CDT Hospital Encounter Department of Cardiovascular Diseases in [place], [place] [address] [place] [phone] Ron Santana M.D., Ph.D. [address] [place] [phone] Atrial Fibrillation Longstanding Persistent (HCC) Discharge Disposition: Home or Self Care Social History Tobacco Use Types Packs/Day Years Used Date Smoking Tobacco: Never Smokeless Tobacco: Never Alcohol Use Standard Drinks/Week Comments Never 0 (1 standard drink = 0.6 oz pur e alcohol) [facility] Utilities Answer Date Recorded In the past 12 months has e [employer], gas, oil, or water [employer] threatened to shut off services in your [...] often do you attend latter day or protestant serv ices? Never 06/30/2021 Do you belong [...] your living situation today? [facility] 01/13/2024 Education Answer Date Recorded What is the highest level of school you have completed or the highest degree you have received? Professional school degree (e.g., MD, DDS, DVM, GRACIELA) 06/30/2021 Sex and Gender Information Value Date Recorded Sex Assigned at Male 06/30/2021 12:19 PM OPERATOR TECHNICIAN Gender Identity Male 06/30/2021 12:19 PM OPERATOR TECHNICIAN Sexual Orientation Straight 06/30/2021 12 :19 PM OPERATOR TECHNICIAN documented as of this encounter Last Filed Vital Signs Vital Sign Reading Time Taken Comments Blood Pressure 126/74 01/13/2024 12:20 PM CDT Pulse 64 01/13/2024 12:20 PM CDT Temperature - - Respiratory Rate 16 01/13/2024 12:18 PM CDT Oxygen Saturation 95% 01/13/2024 12:20 PM CDT Inhaled Oxygen Concentration - - Weight - - Height - - Body Mass Index - - documented in this encounter Medications at Time of Discharge [...] tablet Take 325 mg by mouth. 12/23/2022 furosemide (Lasix) 20 mg tablet Take 1 tablet (20 mg total) by mouth as needed (weight increase 2 lb, edema, or shortness of breath). 30 tablet 1 01/13/2024 lisinopriL 10 mg tablet Take 1.5 tablets (15 mg total) by mouth 2 (two) times a day. 270 tablet 3 01/13/2024 magnesium chloride (Slow-Mag) 71.[address] tablet [...] 24 hr capsule 0.4 mg daily. 01/14/2022 documented as of this encounter Plan of Treatment Upcoming Encounters Date Type Department Care Team (Latest Contact Info) Description 03/07/2024 1:00 PM CDT Clinical Communication Virtual Review in [place], [place] 200 [place] [phone] 03/13/2024 8:15 AM CDT Appointment Department of Radiology, [facility] in [place], [place] [address] [place] [phone] Marilu Castaneda P.A.-Nikki., M.S. [address] [place] [phone] 03/13/2024 8:40 AM CDT Appointment Department of Laboratory Medicine and Pathology, [facility] in [place], [place] [address] [place] [phone] Loraine Thakkar M.D. [address] [place] [phone] 03/13/2024 10:00 AM CDT Comprehensive Visit Department of Cardiovascular Medicine in [place], [place] [address] [place] [phone] Loraine Thakkar M.D. [address] [place] [address] 03/26/2024 12:15 PM CDT Appointment Department of Radiology, [facility], in [place], [place] [address] [place] [phone] Birdie Hurtado M.D. [address] [place] [phone] documented as of this encounter Procedures Procedure Name Priority Date/Time Associated Diagnosis Comments (MERVAT) 2D WITH COLOR, DOPPLER AND CONTRAST Routine 01/13/2024 11:03 AM CDT Atrial Fibrillation Longstanding Persistent (HCC) documented in this encounter Results * (MERVAT) 2D WITH COLOR, DOPPLER AND CONTRAST (01/13/2024 11:03 AM CDT) Ejection Fraction 50 MC CV EIMS MV mean gradient 5 MC CV EIMS Anatomical Region Laterality Modality Echocardiography 01/13/2024 10:0 2 AM CDT Impressions 01/15/2024 4:53 PM CDT PRE-SEDATION ASSESSMENT & CONSENT (performed immediately prior to the start of the procedure): The goals, risks and alternatives to moderate sedation and the transesophageal echo were explained to the patient, questions were answered and consent was given to proceed. The physician reviewed the patient's history, medication list, allergies, and review of systems, and the findings as documented in the guardian family member and also performed a pertinent examination including a heart, airway and lung assessment. Mallampati Assessment: As documented in the RN pre-procedure assessment. Sedation plan: Transesophageal echo - moderate sedation. ASA physical status score: Class III. The patient's identity and all needed equipment were confirmed and a final confirmatory pause was performed by the team immediately prior to start. PROCEDURAL ECHO FINDINGS: Transesophageal echocardiogram performed at the request of the primary sales representative electric service. Adult probe inserted without difficulty. LEFT VENTRICLE:Mildly enlarged left ventricular chamber size. Estimated left ventricular ejection fraction range 50% - 60%. No regional wall motion abnormalities. RIGHT VENTRICLE:Mildly enlarged right ventricular chamber size by visual estimate. Normal right ventricular systolic function. ATRIA:Enlarged left atrial size by visual estimate. Dilated left atrial appendage. No left atrial appendage thrombus. Enlarged right atrial size by visual estimate. CARDIAC VALVES:Trileaflet aortic valve. Mildly sclerotic aortic valve. Trivial aortic valve regurgitation. 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 Normal pulmonary valve. Trivial pulmonary valve regurgitation. Normal tricuspid valve. Mild tricuspid valve regurgitation. OTHER ECHO FINDINGS:Normally connected pulmonary veins. Pulmonary artery bifurcation is normal. Normal superior vena cava. Agitated saline injection(s) performed during sedation. Tjqi-je-fleuc shunt at atrial level on color Doppler imaging consistent with prior trans-septal puncture No intracardiac mass or thrombus identified. No ??pericardial effusion. PROCEDURE NOTES:Procedure performed with appropriate level of sedation. A trained independent observer assisted with monitoring the patient's level of consciousness and physiologic status throughout the procedure, see nursing documentation. The patient tolerated the sedation and procedure well and was released awake, alert, and in good condition. Transesophageal echocardiogram completed without complications. Transgastric images acquired. See Sedation Narrator or other pertinent record in [facility] for additional procedure and sedation information. Physician signature for procedural medications and patient discharge when DC criteria met. For the complete report, see the Order-Level Documents. Narrative 01/15/2024 4:53 PM CDT For the complete report, see the Order-Level Documents. Hemodynamics Heart Rate: 62 BPM Blood Pressure: 172 / 80 mmHg ECG: Sinus rhythm with ectopics Final Impressions 1. 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 Previously placed MitraClip on the A2-P2 segment appears intact. 3. Severe mitral valve regurgitation with an eccentric, anteriorly directed jet arising just lateral to the MitraClip. Mechanism is due to focal area of recurrent/residual posterior leaflet override just lateral to the MitraClip and anterior leaflet tethering (Images 76-77, 91). 4. Mitral valve diastolic mean Doppler gradient 5 mmHg (heart rate 66 BPM). 5. No intracardiac mass or thrombus identified. 6. Odjr-lv-rvpwl shunt at atrial level by color flow imaging and agitated saline contrast injection. Imaging findings are consistent with prior trans-septal puncture. \.br\\.br\\.br\\.br\ with prior trans-septal puncture. by color flow imaging and agitated saline contrast injection. 7. No ??pericardial effusion. 8. The remainder of the findings are as per the transthoracic echocardiogram of 01/12/2024. Procedure Note Miladys Liang M.D., Pharm.D. - 01/15/2024 For the complete report, see the Order-Level Documents. Hemodynamics Heart Rate: 62 BPM Blood Pressure: 172 / 80 mmHg ECG: Sinus rhythm with ectopics Final Impressions 1. Status post transcatheter mitral valve repair (TMVr) with placement of1 MitraClip (08-JUN-2019) 2. Previously placed MitraClip on the A2-P2 segment appears intact. 3. Severe mitral valve regurgitation with an eccentric, anteriorlydirected jet arising just lateral to the MitraClip. Mechanism is due tofocal area of recurrent/residual posterior leaflet override just lateralto the MitraClip and anterior leaflet tethering (Images 76-77, 91). 4. Mitral valve diastolic mean Doppler gradient 5 mmHg (heart rate 66BPM). 5. No intracardiac mass or thrombus identified. 6. Ewjq-vg-rwrmq shunt at atrial level by color flow imaging and agitatedsaline contrast injection. Imaging findings are consistent with priortrans-septal puncture. \.br\\.br\\.br\\.br\ with prior trans-septalpuncture. by color flow imaging and agitated saline contrast injection. 7. No pericardial effusion. 8. The remainder of the findings are as per the transthoracicechocardiogram of 01/12/2024. Findings PRE-SEDATION ASSESSMENT & CONSENT (performed immediately prior to thestart of the procedure): The goals, risks and alternatives to moderatesedation and the transesophageal echo were explained to the patient,questions were answered and consent was given to proceed. The physicianreviewed the patient's history, medication list, allergies, and review ofsystems, and the findings as documented in the guardian family member and alsoperformed a pertinent examination including a heart, airway and lungassessment. Mallampati Assessment: As documented in the RN pre-procedureassessment. Sedation plan: Transesophageal echo - moderate sedation. ASAphysical status score: Class III. The patient's identity and all neededequipment were confirmed and a final confirmatory pause was performed bythe team immediately prior to start. PROCEDURAL ECHO FINDINGS:Transesophageal echocardiogram performed at the request of the primaryservice sales operations consultant. Adult probe inserted without difficulty. LEFT VENTRICLE:Mildly enlarged left ventricular chamber size. Estimatedleft ventricular ejection fraction range 50% - 60%. No regional wallmotion abnormalities. RIGHT VENTRICLE:Mildly enlarged right ventricular chamber size by visualestimate. Normal right ventricular systolic function. ATRIA:Enlarged left atrial size by visual estimate. Dilated left atrialappendage. No left atrial appendage thrombus. Enlarged right atrial sizeby visual estimate. CARDIAC VALVES:Trileaflet aortic valve. Mildly sclerotic aortic valve.Trivial aortic valve regurgitation. Status post transcatheter mitral valverepair (TMVr) with placement of 1 MitraClip (08-JUN-2019) Severe mitralvalve regurgitation with an eccentric, anteriorly directed jet arisinglaterally near the P1 leaflet with intact prior MitraClip on the A2-H2hlxbdbf functioning well Mitral valve diastolic mean Doppler gradient 5mmHg (heart rate 66 BPM). Normal pulmonary valve. Trivial pulmonary valveregurgitation. Normal tricuspid valve. Mild tricuspid valveregurgitation. OTHER ECHO FINDINGS:Normally connected pulmonary veins. Pulmonary arterybifurcation is normal. Normal superior vena cava. Agitated salineinjection(s) performed during sedation. Yjuf-at-pnvak shunt at atriallevel on color Doppler imaging consistent with prior trans-septal punctureNo intracardiac mass or thrombus identified. No pericardial effusion. PROCEDURE NOTES:Procedure performed with appropriate level of sedation. Atrained independent observer assisted with monitoring the patient's levelof consciousness and physiologic status throughout the procedure, seenursing documentation. The patient tolerated the sedation and procedurewell and was released awake, alert, and in good condition. Transesophagealechocardiogram completed without complications. Transgastric imagesacquired. See Sedation Narrator or other pertinent record in [facility] foradditional procedure and sedation information. Physician signature forprocedural medications and patient discharge when DC criteria met. For the complete report, see the Order-Level Documents. Ron Santana M.D., Ph.D. CV ECHO PROC EDURES documented in this encounter Visit Diagnoses Diagnosis Atrial Fibrillation Longstanding Persistent (HCC) documented in this encounter Administered Medications Inactive Administered Medications - up to 3 most recent administrations Medication Order MAR Action Action Date Dose Rate Site fentaNYL injection (Sublimaze) As needed, Starting on Tue01/13/24 at 1039, Intraprocedure (CV) Given 01/13/2024 10:39 AM CDT 25 mcg fentaNYL injection (Sublimaze) As needed, Starting on Tue01/13/24 at 1106, Intraprocedure (CV) Given 01/13/2024 11:30 AM CDT 25 mcg Given 01/13/2024 11:14 AM CDT 50 mcg Given 01/13/2024 11:06 AM CDT 25 mcg lidocaine 5 % ointment 1 Application (Xylocaine) 1 Application, mouth/throat, Once in imaging, mild pain or score 1-3 of 10, See protocol, Starting on Tue01/13/24 at 1005, For 1 dose, Intraprocedure - Diagnostic, Apply 1 inch on tongue blade. Place ointment side down in back of mouth, as far back as possible. Instruct patient to swallow any dissolved ointment. After 2-3 minutes, check gag reflex. May repeat once if gag reflex remains. Administer first dose within 10 minutes of expected physician arrival to procedure. MAX of 20 g of ointment/day Given 01/13/2024 10:26 AM CDT 1 Application midazolam (PF) injection (Versed) As needed, Starting on Tue01/13/24 at 1039, Intraprocedure (CV) Given 01/13/2024 10:39 AM CDT 1 mg midazolam (PF) injection (Versed) As needed, Starting on Tue01/13/24 at 1059, Intraprocedure (CV) Given 01/13/2024 11:30 AM CDT 1 mg Given 01/13/2024 11:14 AM CDT 2 mg Given 01/13/2024 11:06 AM CDT 1 mg midazolam (PF) injection (Versed) As needed, Starting on Tue01/13/24 at 1139, Intraprocedure (CV) Given 01/13/2024 11:39 AM CDT 2 mg NaCl 0.9% bacteriostatic 0.9 % injection 20 mL 20 mL, intravenous, Once in imaging, for agitated saline (bubble) studies, Starting on Tue01/13/24 at 1004, For 1 dose, Intraprocedure - Diagnostic, See Ally. Given 01/13/2024 12:0 4 PM CDT 20 mL sodium chloride 0.9 % injection 10 mL 10 mL, intravenous, Once in imaging, line care, Starting on Tue01/13/24 at 1004, For 1 dose, Intraprocedure - Diagnostic, Prior to and following infusion and between multiple consecutive infusions: sodium chloride 0.9 % injection Given 01/13/2024 10:25 AM CDT 10 mL documented in this encounter Additional Health Concerns Infection Onset Date Last Indicated Resolved Time Protective Environment 09/20/2022 09/20/2022 Assessment Noted Time PHQ-9 Depression Total Score: 6 07/17/19 20 10:26 AM OPERATOR TECHNICIAN documented as of this encounter Care Teams Spinning Lathe Operator Automatic Relationship Specialty Start Date End Date Elsewhere, Pcp PCP - General Director Content Marketing 06/27/19 documented as of this encounter
--- OUTSIDE RECORDS SUMMARY | 2024-02-23 18:06 | XMS_ITS | Encounter Summary ---
Author Organization [facility] Address [address] [place] [id number] Care Team Providers Care Master Welder Name Role Phone Elsewhere, Pcp Primary Care Provider Unavailabl e Reason for Referral * Cardiovascular-Diagnostic (Routine) - Closed Specialty Diagnoses / Procedures Referred By Contac t Referred To Contact Diagnoses Atrial Fibrillation Longstanding Persistent (HCC) Procedures Echo Transthoracic (TTE) Ron Santana M.D., Ph.D. [address] [place] [phone] [facility] Referral ID Status Reason Start Date Expiration Date Visits Re quested Visits Authorized [id number] Closed 11/09/2023 11/08/2024 1 1 Reason for Visit * Cardiovascular-Diagnostic (Routine) - Closed Specialty Diagnoses / Procedures Referred By Contac t Referred To Contact Diagnoses Atrial Fibrillation Longstanding Persistent (HCC) Procedures Echo Transthoracic (TTE) Ron Santana M.D., [place] [address] [facility] Referral ID Status Reason Start Date Expiration Date Visits Re quested Visits Authorized [id number] Closed 11/09/2023 11/08/2024 1 1 Encounter Details Date Type Department Care Team (Latest Contact Info) Description 01/12/2024 2:34 PM CDT - 01/12/2024 11:59 PM CDT Hospital Encounter Department of Cardiovascular Diseases in [place], [place] [address] [place] [phone] Ron Santana M.D., Ph.D. [address] [place] [phone] Atrial Fibrillation Longstanding Persistent (HCC) Discharge Disposition: Home or Self Care Social History Tobacco Use Types Packs/Day Years Used Date Smoking Tobacco: Never Smokeless Tobacco: Never Alcohol Use Standard Drinks/Week Comments Never 0 (1 standard drink = 0.6 oz pur e alcohol) [facility] Utilities Answer Date Recorded In the past 12 months has e [employer], gas, oil, or water [employer] threatened to shut off services in your [...] week 06/30/2021 How often do you attend pentecostalism or anglican serv ices? Never 06/30/2021 Do you belong to any clubs o r organizations such as pentecostalism groups, unions, fraternal or athletic groups, or [...] and heating? Not hard at all 06/30/2021 [facility] Occupational Stress Questionnaire Answer Date Recorded [...] your living situation today? I have a [facility] place to live 01/13/2024 Education Answer Date Recorded What is the highest level of school you have completed or the highest degree you have received? Professional school degree (e.g., MD, DDS, DVM, GRACIELA) 06/30/2021 Sex and Gender Information Value Date Recorded Sex Assigned at Male 06/30/2021 12:19 PM MEDICAL DERMATOLOGIST Gender Identity Male 06/30/2021 12:19 PM MEDICAL DERMATOLOGIST Sexual Orientation Straight 06/30/2021 12 :19 PM MEDICAL DERMATOLOGIST documented as of this encounter Medications at [...] PM CDT Clinical Communication Virtual Review in [place], [place] [address] [place] [phone] 03/13/2024 8:15 AM CDT Appointment Department of Radiology, [facility] in [place], [place] [address] [place] [phone] Marilu Castaneda P.A.-C., M.S. [address] [place] [phone] 03/13/2024 8:40 AM CDT Appointment Department of Laboratory Medicine and Pathology, [facility] in [place], [place] [address] [place] [phone] Loraine Thakkar M.D. [address] [place] [phone] 03/13/2024 10:00 AM CDT Comprehensive Visit Department of Cardiovascular Medicine in [place], [place] [address] [place] [phone] Loraine Thakkar M.D. [address] [place] [phone] 03/26/2024 12:15 PM CDT Appointment Department of Radiology, [facility] in [place], [place] [address] [place] [phone] Birdie Hurtado M.D. [address] [place] [phone] documented as of this encounter Procedures Procedure Name Priority Date/Time Associated Diagnosis Comments (TTE) 2D ECHO DOPPLER COLOR Routine 01/12/2024 3:35 PM CDT Atrial Fibrillation Longstanding Persistent (HCC) documented in this encounter Results * (TTE) 2D ECHO DOPPLER COLOR (01/12/2024 3:35 PM CDT) Ejection Fraction 60 MC CV EIMS LV End-Diastolic Diameter 52 MC CV EIMS LV End-Systolic Diameter 33 MC CV EIMS LV End-Diastolic Volume 169 MC CV EIMS LV End-Systolic Volume 68 MC CV EIMS Left ventricular stroke volume index 50 MC CV EIMS Cardiac Output 5.98 MC CV EIMS Cardiac Index 3.08 MC CV EIMS Tricuspid Annular S? 0.12 MC CV EIMS TR Vmax 3.77 MC CV EIMS RA Pressure 10 MC CV EIMS RV Systolic Pressure 67 MC CV EIMS AV mean gradient 6 MC CV EIMS Aortic valve area 2.44 MC CV EIMS Aortic Valve Dimensionless Index 0.59 MC CV EIMS MV mean gradient 6 MC CV EIMS Aortic Valve Systolic Peak Velocity 1.7 MC CV EIMS Anatomical Region Laterality Modality Echocardiography 01/12/2024 2:50 PM CDT Impressions 01/12/2024 4:08 PM CDT Last full echocardiogram performed 02/17/2023. Echocardiogram performed per left ventricular function protocol. LEFT VENTRICLE:Mildly enlarged left ventricular chamber size. Calculated 2-D biplane volumetric left ventricular ejection fraction of 60%. No regional wall motion abnormalities. Indeterminate left ventricular filling pressure. RIGHT VENTRICLE:Mildly enlarged right ventricular chamber size. Normal right ventricular systolic function. Estimated right ventricular systolic pressure 67 mmHg (right atrial pressure of 10 mmHg). ATRIA:Bi-atrial enlargement. CARDIAC VALVES:Mildly sclerotic aortic valve. Trivial aortic valve regurgitation. 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 Mitral valve diastolic mean Doppler gradient 6 mmHg (heart rate 63 BPM). Severe mitral valve regurgitation. Normal tricuspid valve. Mild tricuspid valve regurgitation. OTHER ECHO FINDINGS:Enlarged inferior vena cava size with normal inspiratory collapse (>50%). No intracardiac mass or thrombus, but the left atrial appendage cannot be visualized adequately with transthoracic echo to exclude thrombus in this location. No pericardial effusion. For the complete report, see the Order-Level Documents. Narrative 01/12/2024 4:08 PM CDT For the complete report, see the Order-Level Documents. Hemodynamics Heart Rate: 62 BPM Blood Pressure: 153 / 78 mmHg ECG: Sinus rhythm Final Impressions 1. 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 2. Severe mitral valve regurgitation. Very eccentric and anteriorly directed, wrapping around the left atrium. Unable to quantitate. Increase in mitral inflow gradient, LV size, and pulmonary pressures is suggestive of significant mitral regurgitation. 3. Mildly enlarged left ventricular chamber size, no regional wall motion abnormalities, calculated 2-D biplane volumetric ejection fraction of 60%. 4. Mildly enlarged right ventricular chamber size, normal systolic function, estimated right ventricular systolic pressure 67 mmHg (right atrial pressure of 10 mmHg). 5. Enlarged inferior vena cava size with normal inspiratory collapse (>50%). 6. No ??pericardial effusion. 7. Compared to the report of 02/17/2023 the following changes have occurred: the mitral inflow gradient is higher, left ventricular volume is slightly larger, and the estimated RVSP is higher. ??Side by side comparison of images performed. Procedure Note Rahel Perry M.D. - 01/12/2024 For the complete report, see the Order-Level Documents. Hemodynamics Heart Rate: 62 BPM Blood Pressure: 153 / 78 mmHg ECG: Sinus rhythm Final Impressions 1. Status post transcatheter mitral valve repair (TMVr) with placement of1 MitraClip (08-JUN-2019). 2. Severe mitral valve regurgitation. Very eccentric and anteriorlydirected, wrapping around the left atrium. Unable to quantitate. Increasein mitral inflow gradient, LV size, and pulmonary pressures is suggestiveof significant mitral regurgitation. 3. Mildly enlarged left ventricular chamber size, no regional wall motionabnormalities, calculated 2-D biplane volumetric ejection fraction of60%. 4. Mildly enlarged right ventricular chamber size, normal systolicfunction, estimated right ventricular systolic pressure 67 mmHg (rightatrial pressure of 10 mmHg). 5. Enlarged inferior vena cava size with normal inspiratory collapse(>50%). 6. No pericardial effusion. 7. Compared to the report of 02/17/2023 the following changes haveoccurred: the mitral inflow gradient is higher, left ventricular volume isslightly larger, and the estimated RVSP is higher. Side by sidecomparison of images performed. Findings Last full echocardiogram performed 02/17/2023. Echocardiogram performedper left ventricular function protocol. LEFT VENTRICLE:Mildly enlarged left ventricular chamber size. Calculated2-D biplane volumetric left ventricular ejection fraction of 60%. Noregional wall motion abnormalities. Indeterminate left ventricular fillingpressure. RIGHT VENTRICLE:Mildly enlarged right ventricular chamber size. Normalright ventricular systolic function. Estimated right ventricular systolicpressure 67 mmHg (right atrial pressure of 10 mmHg). ATRIA:Bi-atrial enlargement. CARDIAC VALVES:Mildly sclerotic aortic valve. Trivial aortic valveregurgitation. 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 Mitral valve diastolic meanDoppler gradient 6 mmHg (heart rate 63 BPM). Severe mitral valveregurgitation. Normal tricuspid valve. Mild tricuspid valveregurgitation. OTHER ECHO FINDINGS:Enlarged inferior vena cava size with normalinspiratory collapse (>50%). No intracardiac mass or thrombus, but theleft atrial appendage cannot be visualized adequately with transthoracicecho to exclude thrombus in this location. No pericardial effusion. For the complete report, see the Order-Level Documents. Ron Santana M.D., Ph.D. CV ECHO PROC EDURES documented in this encounter Visit Diagnoses Diagnosis Atrial Fibrillation Longstanding Persistent (HCC) documented in this encounter Additional Health Concerns Infection Onset Date Last Indicated Resolved Time Protective Environment 09/20/2022 09/20/2022 Assessment Noted Time PHQ-9 Depression Total Score: 6 07/17/19 20 10:26 AM MEDICAL DERMATOLOGIST documented as of this encounter Care Teams Master Welder Relationship Specialty Start Date End Date Elsewhere, Pcp PCP - General Variety Lathe Operator 06/27/19 documented as of this encounter
--- OUTSIDE RECORDS SUMMARY | 2024-02-23 18:06 | XMS_ITS | Clinical Summary ---
Author Organization [facility] Address [address] [place] [id number] Care Team Providers Care Reconciliation Coordinator Name Role Phone Elsewhere, Pcp Primary Care Provider Unavailabl e Source Comments Patient records contain information from all sites at [facility]. For routine questions regarding patient records, call [phone] during business hours, M-F 8:00 AM - 5:00 PM Central Time. Record requests for emergency care only can be directed to [phone] at any time.[facility] Allergies Active Allergy Reactions Criticality Noted [...] with dinner. 90 tablet 3 02/23/2023 Active metoprolol tartrate (LOPRESSOR) [...] Chronic Pain/Nonacute Pain. 30 tablet 06/01/2023 Active Additional Information Patient not taking.Reported on 01/10/2024 atorvastatin (LIPITOR) 20 mg tablet TAKE ONE TABLET BY MOUTH ONCE EVERY DAY 90 tablet 3 10/11/2023 Active amiodarone (Pacerone) 200 mg tablet Take 0.5 tablets (100 mg total) by mouth daily. 45 tablet 3 12/22/2023 Active lisinopriL 10 mg tablet Take 1.5 tablets (15 mg total) by mouth 2 (two) times a day. 270 tablet 3 01/13/2024 Active furosemide (Lasix) 20 mg tablet Take 1 tablet (20 mg total) by mouth as needed (weight increase 2 lb, edema, or shortness of breath). 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 Pre-visit Testing Orders 01/16/2024 Clinical Communication Department of Cardiovascular Medicine in [place], [place] [address] [place] [address] Maggi Robles R.N. Triage 01/13/2024 10:01 AM CDT - 01/13/2024 11:59 PM CDT Hospital Encounter Department of Cardiovascular Diseases in [place], [place] [address] [place] [address] Ron Santana M.D., Ph.D. Atrial Fibrillation Longstanding Persistent (HCC) Discharge Disposition: Home or Self Care 01/13/2024 8:00 AM CDT Office Visit Department of Cardiovascular Medicine in [address] [phone] Marilu Castaneda P.A.-C., M.S. Atrial Fibrillation Unspecified (HCC) (Primary Dx); Regurgitation Mitral 01/13/2024 Clinical Communication Department of Cardiovascular Medicine in [place], [place] [address] [place] [phone] Mason Liner, Annemarie Masterson Appt Request 01/12/2024 2:34 PM CDT - 01/12/2024 11:59 PM CDT Hospital Encounter Department of Cardiovascular Diseases in [address] [phone] Ron Santana M.D., Ph.D. Atrial Fibrillation Longstanding Persistent (HCC) Discharge Disposition: Home or Self Care 01/12/2024 1:13 PM CDT - 01/12/2024 2:33 PM CDT Hospital Encounter Department of Radiology, [facility] in [place], [place] [address] [place] [phone] Ron Santana M.D., Ph.D. Atrial Fibrillation Longstanding Persistent (HCC) Discharge Disposition: Home or Self Care 01/12/2024 10:15 AM CDT - 01/12/2024 1:12 PM CDT Hospital Encounter Department of Laboratory Medicine and Pathology, [facility] in [place], [place] [address] [place] [phone] Ron Santana M.D., Ph.D. Atrial Fibrillation Longstanding Persistent (HCC) Discharge Disposition: Home or Self Care 01/12/2024 9:43 AM CDT - 01/12/2024 10:14 AM CDT Hospital Encounter Department of Cardiovascular Diseases in [place], [place] [address] [place] [phone] Ron Santana M.D., Ph.D. Atrial Fibrillation Longstanding Persistent (HCC) Discharge Disposition: Home or Self Care 01/10/2024 7:45 AM CDT Clinical Communication Virtual Review in [place], [place] [address] [place] [address] Pre-visit Intake 12/22/2023 Refill Department of Cardiovascular Medicine in [place], [place] [address] [place] [phone] Flo Nazario M.D. Med Refill 11/24/2023 Clinical Communication Department of Oncology in [place], [place] [address] [place] [phone] Carlotta Zee R.N. from Last 3 Months Immunizations Name Administration Dates Next Due H1N1 All Forms 04/21/2009 HZV (ZOSTAVAX) 10/12/2010 Influenza TIV (IM) 03/09/2018, 7,03/15/2011,2007,03/17/2007,04/09/2006 Influenza, Seasonal, Injectable 03/15/20 11,04/10/2008,03/17/2007,2005 PCV13 12/20/2014 PPSV23 10/12/2010 Td, (Adult) Unspecified 01/19/2006 Tdap 09/11/2012 influenza trivalent high dos e (HD)(PF) 02/12/2019,03/09/2016,03/20/2015,2013 influenza vaccine quad (FLUZONE/FLUARIX) (6 months [...] drink = 0.6 oz pur e alcohol) [facility] Utilities Answer Date Recorded In the past 12 months has th e electric, gas, oil, or water [facility] [employer] threatened to shut off services in your [...] How often do you attend caodaism or islam serv ices? Never 06/30/2021 Do [...] heating? Not hard at all 06/30/2021 [facility] [place] [facility] - Occupational [...] your living situation today? I have a [facility] place to live 01/13/2024 Education Answer Date Recorded What is the highest level of school you have completed or the highest degree you have received? 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 CLERK PACKING Last Filed Vital Signs Vital Sign Reading Time Taken Comments Blood Pressure 126/74 01/13/2024 12:20 PM CDT Pulse 64 01/13/2024 12:20 PM CDT Temperature 36.6 ??C (97.9 ??F) 05/03/2023 3:58 PM CS T Respiratory Rate 16 01/13/2024 12:18 PM CDT Oxygen Saturation 95% 01/13/2024 12:20 PM CDT Inhaled Oxygen Concentration - - Weight 77 kg (169 lb 13.8 oz) 01/13/2024 7:46 AM CDT Height 177.6 cm (5' 9.92) 01/13/2024 7:46 AM CD T Body Mass Index 24.43 01/13/2024 7:46 AM CDT Plan of Treatment Upcoming Encounters Date Type Department Care Team (Latest Contact Info) Description 03/07/2024 1:00 PM CDT Clinical Communication Virtual Review in [place], [place] [address] [place] [address] 03/13/2024 8:15 AM CDT Appointment Department of Radiology, [facility] in [place], [place] [address] [place] [phone] Marilu Castaneda P.A.-C., M.S. [address] [place] [phone] 03/13/2024 8:40 AM CDT Appointment Department of Laboratory Medicine and Pathology, [facility] in [address] [phone] Loraine Thakkar M.D. [address] [place] [phone] 03/13/2024 10:00 AM CDT Comprehensive Visit Department of Cardiovascular Medicine in [address] [phone] Loraine Thakkar M.D. [address] [place] [phone] 03/26/2024 12:15 PM CDT Appointment Department of Radiology, [facility] in [place], [place] [address] [place] [phone] Birdie Hurtado M.D. [address] [place] [phone] Health Maintenance Due Date Last Done Comments Hepatitis C Screening 1945 Zoster Vaccines (1 of 2) 12/07/2010 10/12/2010 DTaP,Tdap,and Td Vaccines (2 - Td or Tdap) 09/11/2022 09/11/2012, 01/19/2006 Depression Screening (Annual PHQ-2) 06/06/2023 COVID-19 Vaccine ( season) 2024 03/21/2023, 03/02/2022, 09/29/2021, Additional history exists Influenza Vaccine (#1) 2024 , 04/02/2022, 03/25/2021, Additional history exists Office Visit for Blood Pressure Check / Re-check 04/14/2024 01/13/2024 Creatinine Level (Kidney Function Test) 01/11/2025 01/12/2024, 05/23/2023, 10/26/2022, Additional history exists Potassium Level 01/11/2025 01/12/2024, 10/05, 10/13/2022, Additional history exists Sodium Level 01/11/2025 01/12/2024, 10/04, 01/14/2022, Additional history exists Pneumococcal vaccine (65+ years) Completed 12/20/2014, 10/12/2010 Fall Risk Screen (Annual) Completed 01/13/2024 HPV Vaccines Aged Out No longer eligi ble based on patient's age to complete this topic Medical Devices Implanted Type Area Pilot Boat Operator Device Identifier Shelf Expiration Date Model / Serial / Lot Clp Tania Clip Del Sys Xtr - [id number] Implanted:Qty : 1 on 06/28/2019 by Hernandez Echevarria M.D. at [facility] Mitralclip N/A: Heart Reese 03/21/2020 [id number] / / [id number] Description:Mitral Valve Ocular Lens Ocular Lens Eye Description:Right Ocular Lens Ocular Lens Eye Description:Left Procedures Procedure Name Priority Date/Time Associated Diagnosis Comments (MERVAT) 2D WITH COLOR, DOPPLER AND CONTRAST Routine 01/13/2024 11:03 AM CDT Atrial Fibrillation Longstanding Persistent (HCC) HOLTER MONITOR - IN CLINIC PATIENT ASSISTANT Routine 01/13/2024 10:15 AM CDT Atrial Fibrillation Longstanding Persistent (HCC) (TTE) 2D ECHO DOPPLER COLOR Routine 01/12/2024 3:35 PM CDT Atrial Fibrillation Longstanding Persistent (HCC) CT CARDIAC PULMONARY VEINS WITH IV CONTRAST RAD - Routine (most inpatients and all outpatients) 01/12/2024 2:23 PM CDT Atrial Fibrillation Longstanding Persistent (HCC) WA T4 FREE Routine 01/12/2024 10:39 AM CDT THYROPEROXIDASE (TPO) ABS, S Routine 01/12/2024 10:39 AM CDT THYROID FUNCTION CASCADE, S Routine 01/12/2024 10:39 AM CDT Atrial Fibrillation Longstanding Persistent (HCC) TYPE AND SCREEN Routine 01/12/2024 10:39 AM CDT Atrial Fibrillation Longstanding Persistent (HCC) COMPREHENSIVE METABOLIC PANEL, S/P Routine 01/12/2024 10:39 AM CDT Atrial Fibrillation Longstanding Persistent (HCC) CBC WITHOUT DIFFERENTIAL, B Routine 01/12/2024 10:39 AM CDT Atrial Fibrillation Longstanding Persistent (HCC) ECG Routine 01/12/2024 9:39 AM CDT Atrial Fibrillation Longstanding Persistent (HCC) OUTSIDE NM PET Routine 11/24/2023 3:35 PM CDT from Last 3 Months Results * (MERVAT) 2D WITH COLOR, DOPPLER [...] and the findings as documented in the assessment director and also performed a pertinent examination including [...] performed at the request of the primary human services supervisor. Adult probe inserted without difficulty. LEFT VENTRICLE:Mildly [...] cava. Agitated saline injection(s) performed during sedation. Fjmf-zc-nerra shunt at atrial level on color Doppler [...] Sedation Narrator or other pertinent record in [facility] for additional procedure and sedation information. [...] No intracardiac mass or thrombus identified. 6. Snlw-yt-vldpk shunt at atrial level by color flow [...] No intracardiac mass or thrombus identified. 6. Ivgn-id-zdvli shunt at atrial level by color flow [...] and the findings as documented in the assessment director and alsoperformed a pertinent examination including a heart, airway and lungassessment. Mallampati Assessment: As documented in the RN pre-procedureassessment. Sedation plan: Transesophageal echo - moderate sedation. ASAphysical status score: Class III. The patient's identity and all neededequipment were confirmed and a final confirmatory pause was performed bythe team immediately prior to start. PROCEDURAL ECHO FINDINGS:Transesophageal echocardiogram performed at the request of the primaryservice commercial sales consultant. Adult probe inserted without difficulty. LEFT [...] leaflet with intact prior MitraClip on the [id number] functioning well Mitral valve diastolic mean Doppler gradient 5mmHg (heart rate 66 BPM). Normal pulmonary valve. Trivial pulmonary valveregurgitation. Normal tricuspid valve. Mild tricuspid valveregurgitation. OTHER ECHO FINDINGS:Normally connected pulmonary veins. Pulmonary arterybifurcation is normal. Normal superior vena cava. Agitated salineinjection(s) performed during sedation. Nbmw-sb-htxob shunt at atriallevel on color Doppler imaging [...] Sedation Narrator or other pertinent record in Epic foradditional procedure and sedation information. Physician signature forprocedural medications and patient discharge when DC criteria met. For the complete report, see the Order-Level Documents. Ron Santana M.D., Ph.D. CV ECHO PROC EDURES * HOLTER MONITOR - IN CLINIC PATIENT ASSISTANT (01/13/2024 10:15 AM CDT) Min Heart Rate 57 bpm INFOB IONIC MOME Max Heart Rate 94 bpm INFOB IONIC MOME Mean Heart Rate 65 bpm INFOBIONIC MOME VE Total Beats 581 count INFOB IONIC MOME VE Percent Beats less than 1 percent INFOBIONIC MOME SVE Total Beats 477 count INFOBIONIC MOME SVE Percent Beats less than 1 percent INFOBIONIC MOME AF Count 0 count INFOBIONIC MOME AF Duration 0 duration INFOBION IC MOME AF [place] 0 percent INFOBIONIC MOME Symptom Count 0 count INFOBI ONIC MOME 01/12/2024 9:55 AM CDT Narrative INFOBIONIC MOME - 01/14/2024 9:21 AM CDT [place] 1. The basic rhythm was sinus. The total analyzed time was 23h 42m. The heart rate varied from 57 to 94 bpm. The average HR was 65 bpm. 2. Premature ventricular complexes were noted singly, interpolated, and paired. There were 581 PVCs recorded with a PVC burden of less than 1%. 3. Premature supraventricular complexes were noted singly, aberrantly, paired, and in twenty-eight 3 to 29 beat atrial runs, at times with aberrancy, maximum rate of 171 bpm. There were 477 PACs recorded with a PAC burden of less than 1%. 4. No symptomatic events were noted. Wooling Machine Operator: DEB Espinoza/ DEB Irvin Procedure Note Luis Felipe Trevizo M.D. - 01/14/2024 Kate 1. The basic rhythm was sinus. The total analyzed time was 23h 42m. Theheart rate varied from 57 to 94 bpm. The average HR was 65 bpm. 2. Premature ventricular complexes were noted singly, interpolated, andpaired. There were 581 PVCs recorded with a PVC burden of less than 1%. 3. Premature supraventricular complexes were noted singly, aberrantly,paired, and in twenty-eight 3 to 29 beat atrial runs, at times withaberrancy, maximum rate of 171 bpm. There were 477 PACs recorded with aPAC burden of less than 1%. 4. No symptomatic events were noted. Wooling Machine Operator: DEB Espinoza/ DEB Irvin Ron Santana M.D., Ph.D. CV CARDIAC S ERVICES PROCEDURES INFOBIONIC MOME NA * (TTE) 2D ECHO DOPPLER COLOR (01/12/2024 [...] Santana M.D., Ph.D. CV ECHO PROC EDURES * CT Cardiac Pulmonary Veins with IV [...] to 5 mm interatrial septal defect with stoz-js-pymmm flow, likely iatrogenic related to prior septal [...] to 5 mm interatrial septal defect with frjr-tu-hlkus flow, likely related to prior septal puncture. [...] to 5 mm interatrial septal defect with ceja-ol-xrdcm flow, likelyrelated to prior septal puncture. MitraClip. [...] to 5 mm interatrial septal defect with lwts-ug-ptima flow,likely iatrogenic related to prior septal puncture. [...] Santana M.D., Ph.D. IMG CT PROCE NISHA * T4 (Thyroxine), Free, Serum (01/12/2024 10:39 AM CDT) T4 (Thyroxine), Free, S 1.6 0.9 - 1.7 ng/dL 01/12/2024 1:13 PM CDT DTL Blood 01/12/2024 10:3 9 AM CDT 01/12/2024 11:20 AM CDT Ron Santana M.D., Ph.D. LAB BLOOD AD D-ON [facility] [address] [place] [address], [facility] DTL [facility] [address] [place] [address] * (ABNORMAL) Thyroid Function Swain (01/12/2024 10:39 AM CDT) TSH, Sensitive 4.5(H) 0.3 - 4.2 mIU/L 01/12/2024 12:53 PM CDT DTL Blood (Blood, Venous) 01/12/2024 10:39 AM CDT 01/12/2024 11:20 AM CDT Ron Santana M.D., Ph.D. LAB BLOOD AD D-ON Performing Organization Address City/[facility]/[place] [address] * Thyroperoxidase (TPO) Antibodies (01/12/2024 10:39 AM CDT) [facility] Thyroperoxidase Ab, S <15.0 <34.0 IU/mL 01/12/2024 1:13 PM CDT DTL Blood 01/12/2024 10:3 9 AM CDT 01/12/2024 11:20 AM CDT Ron Santana M.D., Ph.D. LAB BLOOD AD D-ON Performing Organization Address [facility] [place] [address] * (ABNORMAL) CBC without Differential (01/12/2024 10:39 AM CDT) [facility] Hemoglobin 8.8(L) 13.2 - 16.6 g/dL 01/12/2024 11:31 AM CDT DTL Hematocrit 29.2(L) 38.3 - 48.6 % 01/12/2024 11:31 AM CDT DTL Erythrocytes 2.98(L) 4.35 - 5.65 x10(12)/L 01/12/2024 11:31 AM CDT DTL MCV 98.0(H) 78.2 - 97.9 fL 01/12/2024 11:31 AM CDT DTL RBC Distrib Width 13.2 11.8 - 14.5 % 01/12/2024 11:31 AM CDT DTL Platelet Count 443(H) 135 - 317 x10(9)/L 01/12/2024 11:31 AM CDT DTL Leukocytes 27.0(H) 3.4 - 9.6 x10(9)/L 01/12/2024 11:31 AM CDT DTL Blood (Blood, Venous) 01/12/2024 10:39 AM CDT 01/12/2024 11:04 AM CDT Ron Santana M.D., Ph.D. LAB BLOOD AD D-ON [facility] [address] [place] [address], [facility] DTL [facility] [address] [place] [address] * Type and Screen (with Reflex Antibody ID) (01/12/2024 10:39 AM CDT) Pathologist [facility] ABORh B Pos Not applicable 01/12/2024 5:39 PM CDT ETRM Antibody Screen Negative Negative 01/12/2024 5:45 PM CDT ETRM Type & Screen Expiration 03/11/2024 23:59 01/12/2024 5:39 PM CDT ETRM Testing Location Kate DEFAULT 01/12/2024 11:57 AM CDT ETRM Blood (Blood, Venous) 01/12/2024 10:39 AM CDT 01/12/2024 11:57 AM CDT Ron Santana M.D., Ph.D. LAB BLOOD BA NK TEST ORDERABLES Performing Organization Address [facility]/ZIP Co de Phone Number [facility] [address] [place] [address], [facility] ETRM [facility] [address] [place] [address] * (ABNORMAL) Comprehensive Metabolic Panel (01/12/2024 10:39 AM CDT) Potassium, S 4.3 3.6 - 5.2 mmol/L 01/12/2024 12:53 PM CDT DTL Sodium, S 133(L) 135 - 145 mmol/L 01/12/2024 12:53 PM CDT DTL Chloride, S 100 98 - 107 mmol/L 01/12/2024 12:53 PM CDT DTL Bicarbonate, S 24 22 - 29 mmol/L 01/12/2024 12:53 PM CDT DTL Anion Gap 9 7 - 15 01/12/2024 12:53 PM CDT DTL BUN (Blood Urea Nitrogen), S 12 8 - 24 mg/dL 01/12/2024 12:53 PM CDT DTL Creatinine 1.14 0.74 - 1.35 mg/dL 01/12/2024 12:53 PM CDT DTL Estimated GFR (eGFR) 66 >=60 mL/min/BS A 01/12/2024 12:53 PM CDT DTL Comment: Estimated GFR calculated using the 2020 CKD_EPI creatinine equation. Calcium, Total, S 8.2(L) 8.8 - 10.2 mg/dL 01/12/2024 12:53 PM CDT DTL Glucose, S 103 70 - 140 mg/dL 01/12/2024 12:53 PM CDT DTL Protein, Total, S 4.9(L) 6.3 - 7.9 g/dL 01/12/2024 12:53 PM CDT DTL Albumin, S 3.7 3.5 - 5.0 g/dL 01/12/2024 12:53 PM CDT DTL Aspartate Aminotransferase (AST), S 15 8 - 48 U/L 01/12/2024 12:53 PM CDT DTL Alkaline Phosphatase, S 98 40 - 129 U/L 01/12/2024 12:53 PM CDT DTL Alanine Aminotransferase (ALT), S 8 7 - 55 U/L 01/12/2024 12:53 PM CDT DTL Bilirubin, Total, S 1.6(H) 0.0 - 1.2 mg/dL 01/12/2024 12:53 PM CDT DTL Blood (Blood, Venous) 01/12/2024 10:39 AM CDT 01/12/2024 11:20 AM CDT Ron Santana M.D., Ph.D. LAB BLOOD AD D-ON [facility] [address] [place] [address], [facility] DTL [facility] [address] [place] [address] * ECG 12 Lead (01/12/2024 9:39 AM CDT) Ventricular Rate ECG/Min 69 BPM MUSE WA Interval 201 ms MUSE QRSD Interval 98 ms MUSE QT Interval 450 ms MUSE QTC Interval 482 ms MUSE P Mize 70 degrees MUSE R Mize 73 degrees MUSE T Wave Mize 32 degrees MUSE 01/12/2024 9:39 AM CDT 01/12/2024 9:43 AM CDT Impressions MUSE - 01/12/2024 9:43 AM CDT Normal sinus rhythm with 1st degree A-V block Prolonged QT When compared with ECG of 09-Dec-2022 11:03, No significant change was found Reviewed by DEB Corado Narrative Procedure Note Miesha Tucker M.D., Ph.D. - 01/12/2024 IMPRESSION: Normal sinus rhythm with 1st degree A-V block Prolonged QT When compared with ECG of 09-Dec-2022 11:03, No significant change was found Reviewed by DEB Corado Ron Santana M.D., Ph.D. ECG ORDERABL ES Performing Organization Address City/[facility]/ZIP Co de Phone Number MUSE NA * PET skull to mid thigh-Outside NM [...] In System IMG NM PROCEDURES IIMS NA from Last 3 Months Additional Health Concerns Infection Onset Date Last Indicated Protective Environment 09/20/2022 3 Advance Directives For more information, please contact: [phone] * Full Code (Latest Code Status on File) Date Activated Date Inactivated Comments 01/06/2022 5:12 PM 01/09/2022 4:47 PM Question Answer Comments Full Code: Discussed * Full Code Date Activated Date Inactivated Comments 06/28/2019 12:14 PM 06/29/2019 2:37 PM Question Answer Comments Full Code: Discussed Care Teams Reconciliation Coordinator Relationship Specialty Start Date End Date Elsewhere, Pcp PCP - General Neurosurgeon 06/27/19
--- OUTSIDE RECORDS SUMMARY | 2024-02-23 18:06 | XMS_ITS ---
Author Organization [facility] Address [address] [place] [address] Care Team Providers Care Traffic Law Attorney Name Role Phone Elsewhere, Pcp Primary Care [...] treatments are documented for this patient in [facility]. Treatments may have been administered in another system.
--- OUTSIDE RECORDS SUMMARY | 2024-02-23 18:06 | XMS_ITS | Encounter Summary ---
Author Organization [facility] Address [address] [place] [id number] Care Team Providers Care State Assessed Properties Director Name Role Phone Elsewhere, Pcp Primary Care Provider Unavailabl e Reason for Referral * Outpatient (Routine) - Authorized Specialty Diagnoses / Procedures Referred By Contac t Referred To Contact Diagnoses Atrial Fibrillation Unspecified (HCC) Regurgitation Mitral Procedures ECG 12 Lead Marilu Castaneda P.A.-C., M.S. [address] [place] [phone] [facility] Referral ID Status Reason Start Date Expiration Date V isits Requested Visits Authorized [id number] Authorized 01/13/2024 01/12/2025 1 1 * Outpatient (Routine) - Authorized Specialty Diagnoses / Procedures Referred By Contgregory t Referred To Contact Cardiovascular Disease Marilu Castaneda P.A.-C., M.S. [address] [place] [phone] Ron Santana M.D., Ph.D. [address] [place] [phone] Referral ID Status Reason Start Date Expiration Date V isits Requested Visits Authorized [id number] Authorized 01/13/2024 07/14/2025 1 1 * Outpatient (Routine) - Authorized Specialty Diagnoses / Procedures Referred By Contac t Referred To Contact Diagnoses Atrial Fibrillation Unspecified (HCC) Regurgitation Mitral Procedures DX Chest AP or PA and Lateral 2 Views Marilu Castaneda P.A.-C., M.S. [address] [place] [phone] [facility] Referral ID Status Reason Start Date Expiration Date V isits Requested Visits Authorized [id number] Authorized 01/13/2024 01/12/2025 1 1 * Outpatient (Routine) - Authorized Specialty Diagnoses / Procedures Referred By Oliverio t Referred To Contact Cardiovascular Diseases / Cardiovascular Disease Diagnoses Atrial Fibrillation Unspecified (HCC) Regurgitation Mitral Marilu Castaneda P.A.-C., M.S. [address] [place] [phone] [facility] Referral ID Status Reason Start Date Expiration Date V isits Requested Visits Authorized [id number] Authorized 01/13/2024 07/14/2025 1 1 Reason for Visit * Outpatient (Routine) - Closed Specialty Diagnoses / Procedures Referred By Contac t Referred To Contact Cardiovascular Disease Ron Santana M.D., Ph.D. [address] [place] [phone] [facility] Referral ID Status Reason Start Date Expiration Date Visits Re quested Visits Authorized [id number] Closed 11/09/2023 05/10/2025 1 1 Encounter Details Date Type Department Care Team (Latest Contact Info) Description 01/13/2024 8:00 AM CDT Office Visit Department of Cardiovascular Medicine in [place], [place] [address] [place] [phone] Marilu Castaneda P.A.-C., M.S. [address] [place] [phone] Atrial Fibrillation Unspecified (HCC) (Primary Dx); Regurgitation Mitral Social History Tobacco Use Types Packs/Day Years Used Date Smoking Tobacco: Never Smokeless Tobacco: Never Alcohol Use Standard Drinks/Week Comments Never 0 (1 standard drink = 0.6 oz pur e alcohol) [facility] Utilities Answer Date Recorded In the past 12 months has e [employer], gas, oil, or water [employer] threatened to shut off services in your [...] How often do you attend jewish or mormon serv ices? Never 06/30/2021 Do you belong [...] and heating? Not hard at all 06/30/2021 [facility] Occupat [facility] - Occupational Stress Questionnaire Answer Date Recorded [...] your living situation today? I have a [facility] place to live 01/13/2024 Education Answer Date Recorded What is the highest level of school you have completed or the highest degree you have received? Professional school degree (e.g., , DDS, DVM, GRACIELA) 06/30/2021 Sex and Gender Information Value Date Recorded Sex Assigned at Male 06/30/2021 12:19 PM CENTRAL OFFICE INSPECTOR Gender Identity Male 06/30/2021 12:19 PM CENTRAL OFFICE INSPECTOR Sexual Orientation Straight 06/30/2021 12 :19 PM CENTRAL OFFICE INSPECTOR documented as of this encounter Last Filed Vital Signs Vital Sign Reading Time Taken Comments Blood Pressure 169/76 01/13/2024 7:46 AM CDT Pulse 80 01/13/2024 7:46 AM CDT Temperature - - Respiratory Rate - - Oxygen Saturation - - Inhaled Oxygen Concentration - - Weight 77 kg (169 lb 13.8 oz) 01/13/2024 7:46 AM CDT Height 177.6 cm (5' 9.92) 01/13/2024 7:46 AM CD T Body Mass Index 24.43 01/13/2024 7:46 AM CDT documented in this encounter Progress Notes * Marilu Castaneda P.A.-C., M.S. - 01/13/2024 8:00 AM CDT SUBJECTIVE Ron Santana M.D., Ph.D. CHIEF COMPLAINT/REASON FOR CONSULT History, physical, education, and consent prior to ablation of atrial fibrillation. HISTORY OF PRESENT ILLNESS Mr. Chad Jensen is a pleasant 78 y.o. male patient who presents [facility] today in preparation for upcoming catheter ablation of atrial fibrillation with Dr. Santana. 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 Mr. Jensen's arrhythmia history is well documented in prior HRS notes by Dr. Santana as well as thecardiology notes of Dr. Flo Nazario. In brief, Mr. Jensen has undergone prior cryo balloon AF ablation in 2020 for atrial fibrillation. At that time not all of the pulmonary veins were isolated. Due to recurrence he was started on sotalol which was subsequently transitioned to amiodarone in 2022. This resulted in good rhythm control but unfortunately worsened his tremor symptoms and resulted in hypothyroidism requiring supplementation. In this context redo ablation has been discussed and he was scheduled for this procedure in June. The procedure was postponed as the patient needed to beoff of anticoagulation to address recently discovered parotid gland carcinoma likely related to recurrence of skin cancer. It is in this context that he is here for his preprocedure history and physical. Medication instructions: hold Metoprolol and Lisinopril the night before and morning of the ablation Mr. Jensen endorses the above history/symptoms and denies any recent significant change to his health history. He continues to remain well controlled on amiodarone 100 mg daily and states that since it was started last year he has really not had any significant recurrence of his arrhythmia. Notably, his tremor which had worsened to the point that it was affecting riding has improved and is not somuch bothersome to him currently. He has more recently noted a decline in stamina and feeling more fatigue. He does not specifically note exertional dyspnea feelings. He golfs nearly daily and has began using the cart more on the course due to fatigue symptoms. About a month and a half ago his Calquence was increased due to elevating leukocytosis related to his CLL. He shows me CBC trends since the middle of November. WBCs have ranged from 21-26 and hemoglobin was 9.6 on 11/23 down to 9.1 on 12/28.He is getting nearly weekly blood work to monitor. He states his weight has declined more recently.He denies any terrance symptoms of PND or orthopnea but states that he sleeps chronically with the head of his bed elevated due to GERD symptoms. He has chronic right ankle edema which has not significantly changed. None in the left. There is no history of adverse reaction to anesthesia. The following portions of the patient's history were reviewed and updated as appropriate: allergies, current medications, family history, medical history, social history, surgical history, psychiatric history, substance abuse history, problem list, labs, diagnostics tests. I also reviewed pertinentclinical notes in the electronic health record. Allergies Allergen Reactions Ibrutinib Rash Penicillins Hives (Reselect Reaction) *reaction when teenager, Penicillin G. Current Medications: ALPRAZolam (XANAX) 0.25 mg tablet, Take 0.125 mg by mouth as needed for anxiety. amiodarone (Pacerone) 200 mg tablet, Take 0.5 tablets (100 mg total) by mouth daily. atorvastatin (LIPITOR) 20 mg tablet, TAKE ONE TABLET BY MOUTH ONCE EVERY DAY calcium carbonate (calcium carbonate) 1000 mg (400 mg calcium) chewable tablet, Chew 1 tablet daily. Calquence, acalabrutinib mal, 100 mg tablet, Take 100 mg by mouth. famotidine (PEPCID) 20 mg tablet, Take 20 mg by mouth daily. ferrous sulfate 325 mg (65 mg iron) DR tablet, Take 325 mg by mouth. levothyroxine (SYNTHROID, LEVOTHROID) 50 mcg tablet, Take 50 mcg by mouth. lisinopriL (PRINIVIL,ZESTRIL) 10 mg tablet, Take 1 tablet (10 mg total) by mouth 2 (two) times a day. magnesium chloride (Slow-Mag) 71.[address] tablet, Take 1 tablet (71.5 mg total) by mouth daily. metoprolol succinate (TOPROL-XL) 25 mg 24 hr tablet, metoprolol tartrate (LOPRESSOR) 25 mg tablet, Take 1 tablet (25 mg total) by mouth 2 (two) times a day. omeprazole (PriLOSEC) [address] capsule, Take 40 mg by mouth. oxyCODONE (ROXICODONE) 5 mg immediate release tablet, Take 1-2 tablets (5-10 mg total) by mouth every 4 (four) hours as needed for moderate pain or score 4-6 of 10 Indication: Chronic Pain/Nonacute Pain. (Patient not taking: Reported on 01/10/2024) rivaroxaban (Xarelto) 20 mg tablet, Take 1 tablet (20 mg total) by mouth daily with dinner. tamsulosin (FLOMAX) 0.4 mg 24 hr capsule, 0.4 mg daily. Current Medications: lidocaine-sodium bicarbonate (buffered) 0.9%-8.4% injection 2 mL, PRN PAST MEDICAL/SURGICAL HISTORY See HPI. SOCIAL HISTORY Social History Tobacco Use Smoking status: Never Smokeless tobacco: Never Vaping Use Vaping status: never used Substance Use Topics Alcohol use: Never Drug use: No FAMILY HISTORY Family History Problem Relation Name Age of Onset Lymphoma Father iBlly Shoemaker Coronary artery disease Mother Richelle Loyddestin Hypertension Mother Richelle Jensen REVIEW OF SYSTEMS As per HPI, all other review of systems was negative. OBJECTIVE Vitals: 01/13/24 0746 BP: (!) 169/76 Pulse: 80 Wt Readings from Last 6 Encounters: 01/13/24 77 kg 05/03/23 81 kg 02/23/23 80 kg 11/24/22 81.2 kg 10/13/22 80.4 kg 05/12/22 83.1 kg PHYSICAL EXAMINATION General: Healthy appearing male in no acute distress. Skin: Warm and dry and intact where examined with scattered ecchymosis upper extremities. Heart: Regular rhythm, regular rate. S1, S2 present. There is a high-pitched early peaking apical systolic murmur present. JVP does not appear significantly elevated at 90??. Lungs: Clear to auscultation bilaterally. Breathing is unlabored. Extremities: 1+ right ankle edema, none on the left. Neuro: Alert and oriented to person, place and time. Psych: Appropriate mood and affect. DIAGNOSTICS All pertinent labs and diagnostic studies were reviewed. ECG 12 Lead 01/12/2024 Normal sinus rhythm with 1st degree A-V block Prolonged QT When compared with ECG of 09-Dec-2022 11:03, No significant change was found HR 69 bpm, WI 201, QRS 98, QTC 482 ECG Heart rhythm monitor (Holter) (Preliminary) 01/12/2024 Pending Echo Transthoracic (TTE) 01/12/2024 1. 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 2. Severe mitral valve regurgitation. Very eccentric and anteriorly directed, wrapping around the left atrium. Unable to quantitate. Increase in mitral inflow gradient, LV size, and pulmonary pressures is suggestive of significant mitral regurgitation. 3. Mildly enlarged left ventricular chamber size, no regional wall motion abnormalities, calculated2-D biplane volumetric ejection fraction of 60%. 4. Mildly enlarged right ventricular chamber size, normal systolic function, estimated right ventricular systolic pressure 67 mmHg (right atrial pressure of 10 mmHg). 5. Enlarged inferior vena cava size with normal inspiratory collapse (>50%). 6. No pericardial effusion. 7. Compared to the report of 02/17/2023 the following changes have occurred: the mitral inflow gradient is higher, left ventricular volume is slightly larger, and the estimated RVSP is higher. Side by side comparison of images performed. Cardiac CTA pulmonary veins 01/12/2024 FINDINGS: PULMONARY VEINS: 2 right and 2 [...] to 5 mm interatrial septal defect with [id number] flow, likely related to prior septal puncture. [...] compatible with known pulmonary hypertension. ADDITIONAL FINDINGS: Patchy bilateral groundglass opacities throughout [...] to 5 mm interatrial septal defect with [id number] flow, likely iatrogenic related to prior septal [...] though a few nodes have slightly increased. Recent Results (from the past 72 hour(s)) CBC without Differential Collection Time: 01/12/24 10:39 AM Result Value Hemoglobin 8.8 (L) Hematocrit 29.2 (L) Erythrocytes 2.98 (L) MCV 98.0 (H) RBC Distrib Width 13.2 Platelet Count 443 (H) Leukocytes 27.0 (H) Comprehensive Metabolic Panel Collection Time: 01/12/24 10:39 AM Result Value Potassium, S 4.3 Sodium, S 133 (L) Chloride, S 100 Bicarbonate, S 24 Anion Gap 9 BUN (Blood Urea Nitrogen), S 12 Creatinine 1.14 Estimated GFR (eGFR) 66 Calcium, Total, S 8.2 (L) Glucose, S 103 Protein, Total, S 4.9 (L) Albumin, S 3.7 Aspartate Aminotransferase (AST), S 15 Alkaline Phosphatase, S 98 Alanine Aminotransferase (ALT), S 8 Bilirubin, Total, S 1.6 (H) Type and Screen (with Reflex Antibody ID) Collection Time: 01/12/24 10:39 AM Result Value ABORh B Pos Antibody Screen Negative Type & Screen Expiration 03/11/2024 23:59 Testing Location [facility] Thyroid Function [place] Collection Time: 01/12/24 10:39 AM Result Value TSH, Sensitive 4.5 (H) Thyroperoxidase (TPO) Antibodies Collection Time: 01/12/24 10:39 AM Result Value Thyroperoxidase Ab, S <15.0 T4 (Thyroxine), Free, Serum Collection Time: 01/12/24 10:39 AM Result Value T4 (Thyroxine), Free, S 1.6 ASSESSMENT / PLAN #1 Paroxysmal atrial fibrillation status post cryo ablation 2020 #2 Severe mitral regurgitation status post MitraClip for P2 flail with residual moderate MR #3 Chronic lymphocytic leukemia on acalibrutinib #4 Hypertension #5 Personal history of skin cancers #6 Carcinoma of the bilateral 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 Chad Jensen comes in for history, physical, education, and consent prior to ablation of atrial fibrillation with Dr. Santana. I have reviewed the available pre-procedural testing including ECG, cardiac CTA, and blood work. There were several remarkable findings. Hemoglobin is now at 8.8 and leukocytes are at 27. There was ami hyponatremia and a query a hypervolemic component. Transthoracic echocardiogram shows findings consistent with now severe MR including increase in mitral flow gradient, LV size, and pulmonary pressures. He is scheduled to have MERVAT imaging done later today which would be helpful in determining more of the exact mechanism of the MR in the setting of prior clipping. His CT scan shows lymphadenopathy findings consistent likely with CLL. There was note of slightly increased small bilateral pleural effusions. In the context of proceeding with ablation on Tuesday these findings are significant. Ifhis MR has truly become now severe it may be reasonable to address this in effort to offload the left atrial pressures prior to ablation. His blood work additionally is more reflective of CLL progression and also gives me some hesitancy regarding the safety of proceeding as planned. I will discuss all these findings with Dr. Santana and Dr. Nazario and he would likely benefit [facility] The patient himself is hesitant about proceeding as planned following our discussion of these findings. His weight is as he describes somewhat decreased. His lungs overall sound very clear and he is not describing any significant pulmonary edema symptoms. I have given him a prescription for as needed Lasix to initiate should he notice weight gain or any exertional dyspnea symptoms. Additionally, I would recommend increasing lisinopril to 15 mg twice daily in effort to help treat the MR. His blood work otherwise shows that LFTs remain within normal limits. TSH which is being supplemented as at 4.5 with normal free T4 levels. It may be a very reasonable approach to continue amiodaroneand forego ablation procedure as his MR and CLL are further worked up/treated. Again all this will be discussed with Dr. Santana. In light of all of this consent for the procedure Tuesday was not obtained. Total time spent >40 minutes, including [id number] time and non ojjr-yk-lcuu care time. Addendum: MERVAT confirms severe MR. The previously placed mitral clip appears intact. There is a jet between A1/A2 that wraps around the left atrium and is difficult to quantitate. There appears to be poor coaptation on the lateral aspect of the valve due to malfunctioning of the posterior leaflet. Findings discussed with Dr. Santana who agrees with deferring ablation for now. As amiodarone testingis stable we will continue him at 100 mg daily. We will make a referral to the [facility] Clinic for their opinion on management of his mitral valve. He will return in 3 months' time to visit with Dr. Santana and determine next best steps regarding his atrial arrhythmias. Marilu Castaneda P.A.-C., M.S. 01/13/2024 documented in this encounter Miscellaneous Notes * Addendum Note - Marilu Castaneda P.A.-C., M.S. - 01/13/2024 8:00 AM CDT Addended by: MARILU CASTANEDA on: 01/13/2024 04:23 PM Modules accepted: Orders documented in this encounter Plan of Treatment Upcoming Encounters Date Type Department Care Team (Latest Contact Info) Description 03/07/2024 1:00 PM CDT Clinical Communication Virtual Review in [place], [place] [address] [place] [phone] 03/13/2024 8:15 AM CDT Appointment Department of Radiology, [facility] in [address] [phone] Marilu Castaneda P.A.-C., M.S. [address] [place] [phone] 03/13/2024 8:40 AM CDT Appointment Department of Laboratory Medicine and Pathology, [facility] in [address] [phone] Loraine Thakkar M.D. [address] [place] [phone] 03/13/2024 10:00 AM CDT Comprehensive Visit Department of Cardiovascular Medicine in [place], [place] [address] [place] [phone] Loraine Thakkar M.D. [address] [place] [phone] 03/26/2024 12:15 PM CDT Appointment Department of Radiology, [facility], in [place], [place] [address] [place] [phone] Birdie Hurtado M.D. [address] [place] [phone] Scheduled Orders Name Type Priority Associated Diagnoses Orde r Schedule DX Chest AP or PA and Lateral 2 Views Imaging RAD - Routine (most inpatients and all outpatients) Atrial Fibrillation Unspecified (HCC) Regurgitation Mitral Expected: 01/13/2024, Expires: 04/14/2025 Comprehensive Metabolic Panel Lab Routine Atrial Fibrillation Unspecified (HCC) Regurgitation Mitral Expected: 04/14/2024, Expires: 04/14/2025 Thyroid Function [place] Lab Routine Atrial Fibrillation Unspecified (HCC) Regurgitation Mitral Expected: 04/14/2024, Expires: 04/14/2025 ECG 12 Lead ECG Routine Atrial Fibrillation Unspecified (HCC) Regurgitation Mitral Expected: 01/12/2025 (Approximate), Expires: 04/14/2025 Scheduled Referrals Name Type Priority Associated Diagnoses Orde r Schedule Cardiovascular Disease - Valvular heart disease (VHD) consult (clinic) Outpatient Referral Routine Atrial Fibrillation Unspecified (HCC) Regurgitation Mitral Expected: 01/13/2024, Expires: 04/14/2025 Cardiovascular Disease office visit (clinic) Outpatient Referral Routine Expected: 04/14/2024 (Approximate), Expires: 04/14/2025 documented as of this encounter Visit Diagnoses Diagnosis Atrial Fibrillation Unspecified (HCC)- Primary Regurgitation Mitral documented in this encounter Additional Health Concerns Infection Onset Date Last Indicated Resolved Time Protective Environment 09/20/2022 09/20/2022 Assessment Noted Time PHQ-9 Depression Total Score: 6 07/17/19 20 10:26 AM CENTRAL OFFICE INSPECTOR documented as of this encounter Care Teams State Assessed Properties Director Relationship Specialty Start Date End Date Elsewhere, Pcp PCP - General Lab Technologist 06/27/19 documented as of this encounter
--- OUTSIDE RECORDS SUMMARY | 2024-02-23 18:06 | XMS_ITS | Encounter Summary ---
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 [address] [place] [phone] [facility] Referral ID Status Reason Start Date Expiration Date V isits Requested Visits Authorized [id number] Authorized 01/26/2024 01/25/2025 1 1 Encounter Details Date Type Department Care Team (Late st Contact Info) Description 01/26/2024 Orders Only Department of Oncology in [address] [phone] Birdie Hurtado M.D. 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 Never 06/30/2021 Do you belong to any clubs o r organizations such as hinduism groups, unions, fraternal or athletic groups, or [...] and heating? Not hard at all 06/30/2021 [facility] [place] of Occupat ional Health - Occupational Stress [...] your living situation today? I have a [facility] place to live 01/13/2024 Education Answer Date Recorded What is the highest level of school you have completed or the highest degree you have received? Professional school degree (e.g., MD, DDS, DVM, GRACIELA) 06/30/2021 Sex and Gender Information Value Date Recorded Sex Assigned at Male 06/30/2021 12:[address] JUDGE Gender Identity Male 06/30/2021 12:[address] JUDGE Sexual Orientation Straight 06/30/2021 12 :[address] JUDGE documented as of this encounter Plan of Treatment Upcoming Encounters Date Type Department Care Team (Latest Contact Info) Description 03/07/2024 1:00 PM CDT Clinical Communication Virtual Review in [address] [phone] 03/13/2024 8:15 AM CDT Appointment Department of Radiology, [facility], in [place], [place] [address] [place] [phone] Marilu Castaneda P.A.-C., M.S. [address] [place] [phone] 03/13/2024 8:40 AM CDT Appointment Department of Laboratory Medicine and Pathology, [facility] in [place], [place] [address] [place] [phone] Loraine Thakkar M.D. [address] [place] [phone] 03/13/2024 10:00 AM CDT Comprehensive Visit Department of Cardiovascular Medicine in [place], [place] [address] [place] [phone] Loraine Thakkar M.D. [address] [place] [phone] 03/26/2024 12:15 PM CDT Appointment Department of Radiology, [facility] in [place], [place] [address] [place] [phone] Birdie Hurtado M.D. 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
--- OUTSIDE RECORDS SUMMARY | 2024-02-23 18:06 | XMS_ITS ---
Author Organization [facility] Address [address] [place] [address] Care Team Providers Care Manager Copy Name Role Phone Unavailable Unavailable Unavailable Surgery Details Not on file Complications Check Surgery Details section. Procedure Estimated Blood Loss Check Surgery Details section. Procedure Findings Check Surgery Details section. Procedure Specimens Taken Check Surgery Details section.
--- OUTSIDE RECORDS SUMMARY | 2024-02-23 18:06 | XMS_ITS | Referral Summary ---
Author Organization [facility] Address [address] [place] [address] Care Team Providers Care Route Agent Name Role Phone Elsewhere, Pcp Primary Care Provider Unavailabl e Source Comments Patient records contain information from all sites at [facility]. For routine questions regarding patient records, call [phone] during business hours, M-F 8:00 AM - 5:00 PM Central Time. Record requests for emergency care only can be directed to [phone] at any time.[facility] Encounters Date Type Department Care Team Description 01/26/2024 Orders Only Department of Oncology in [address] [phone] Birdie Hurtado M.D. Malignant Neoplasm Of Lung Squamous Cell Right (HCC) (Primary Dx) 01/20/2024 Clinical Communication Department of Cardiovascular Medicine in [place], [place] [address] [place] [address] Loraine Thakkar M.D. Pre-visit Testing Orders 01/16/2024 Clinical Communication Department of Cardiovascular Medicine in [place], [place] [address] [place] [address] Maggi Robles R.N. Triage 01/13/2024 Clinical Communication Department of Cardiovascular Medicine in [place], [place] [address] [place] [phone] Line RunnerZelalem M.D. Appt Request 01/13/2024 10:01 AM CDT - 01/13/2024 11:59 PM CDT Hospital Encounter Department of Cardiovascular Diseases in [place], [place] [address] [place] [address] Ron Santana M.D., Ph.D. Atrial Fibrillation Longstanding Persistent (HCC) Discharge Disposition: Home or Self Care 01/13/2024 8:00 AM CDT Office Visit Department of Cardiovascular Medicine in [address] [phone] Marilu Castaneda P.A.-C., M.S. Atrial Fibrillation Unspecified (HCC) (Primary Dx); Regurgitation Mitral 01/12/2024 2:34 PM CDT - 01/12/2024 11:59 PM CDT Hospital Encounter Department of Cardiovascular Diseases in [place], [place] [address] [place] [phone] Ron Santana M.D., Ph.D. Atrial Fibrillation Longstanding Persistent (HCC) Discharge Disposition: Home or Self Care 01/12/2024 1:13 PM CDT - 01/12/2024 2:33 PM CDT Hospital Encounter Department of Radiology, [facility] in [address] [phone] Ron Santana M.D., Ph.D. Atrial Fibrillation Longstanding Persistent (HCC) Discharge Disposition: Home or Self Care 01/12/2024 10:15 AM CDT - 01/12/2024 1:12 PM CDT Hospital Encounter Department of Laboratory Medicine and Pathology, [facility] in [address] [phone] Ron Santana M.D., Ph.D. Atrial Fibrillation Longstanding Persistent (HCC) Discharge Disposition: Home or Self Care 01/12/2024 9:43 AM CDT - 01/12/2024 10:14 AM CDT Hospital Encounter Department of Cardiovascular Diseases in [address] [phone] Ron Santana M.D., Ph.D. Atrial Fibrillation Longstanding Persistent (HCC) Discharge Disposition: Home or Self Care 01/10/2024 7:45 AM CDT Clinical Communication Virtual Review in [address] [phone] Pre-visit Intake 12/22/2023 Refill Department of Cardiovascular Medicine in [place], [place] [address] [place] [address] Flo Nazario M.D. Med Refill 11/24/2023 Clinical Communication Department of Oncology in [place], [place] [address] [place] [phone] Carlotta Zee R.N. from Last 3 Months Allergies Active Allergy [...] History 020 Overview (06/28/2019): Paroxysmal VT in 2009. During stress test. No recurrence since. Regurgitation [...] drink = 0.6 oz pur e alcohol) [facility] Utilities Answer Date Recorded In the past 12 months has e [employer], gas, oil, or water [employer] threatened to shut off services in your [...] How often do you attend islam or episcopal serv ices? Never 06/30/2021 Do [...] and heating? Not hard at all 06/30/2021 [facility] [place] of Occupat ional Health - Occupational Stress [...] your living situation today? I have a [facility] place to live 01/13/2024 Education Answer Date Recorded What is the highest level of school you have completed or the highest degree you have received? Professional school degree (e.g., MD, DDS, DVM, GRACIELA) 06/30/2021 Sex and Gender Information Value Date Recorded Sex Assigned at Male 06/30/2021 12:19 PM GAMING CAGE CASHIER Gender Identity Male 06/30/2021 12:19 PM GAMING CAGE CASHIER Sexual Orientation Straight 06/30/2021 12 :19 PM GAMING CAGE CASHIER Last Filed Vital Signs Vital Sign Reading [...] PM CDT Clinical Communication Virtual Review in [place], [place] 200 [place] [address] 03/13/2024 8:15 AM CDT Appointment [facility], [facility] [place], [place] [address] [place] [phone] Marilu Castaneda P.A.-C., M.S. [address] [place] [phone] 03/13/2024 8:40 AM CDT Appointment Department of Laboratory Medicine and Pathology, [facility] in [place], [place] [address] [place] [phone] Loraine Thakkar M.D. [address] [place] [phone] 03/13/2024 10:00 AM CDT Comprehensive Visit Department of Cardiovascular Medicine in [address] [phone] Loraine Thakkar M.D. [address] [place] [phone] 03/26/2024 12:15 PM CDT Appointment Department of Radiology, [facility] in [place], [place] [address] [place] [phone] Birdie Hurtado M.D. [address] [place] [phone] Medical Devices Implanted Type Area Senior Auditor Device Identifier Shelf Expiration Date Model / Serial / Lot Clp Taniara Bucio Del Sys Xtr - [id number] Implanted:Qty : 1 on 06/28/2019 by Hernandez Echevarria M.D. at [facility] Mitralclip N/A: Heart Reese 03/21/2020 [id number] / / [id number] Description:Mitral Valve Ocular Lens Ocular Lens Eye Description:Right Ocular Lens Ocular Lens Eye Description:Left Procedures Procedure Name Priority Date/Time Associated Diagnosis Comments (MERVAT) 2D WITH COLOR, DOPPLER AND CONTRAST Routine 01/13/2024 11:03 AM CDT Atrial Fibrillation Longstanding Persistent (HCC) HOLTER MONITOR - IN CLINIC LOCAL CITY DRIVER Routine 01/13/2024 10:15 AM CDT Atrial Fibrillation Longstanding Persistent (HCC) (TTE) 2D ECHO DOPPLER COLOR Routine 01/12/2024 3:35 PM CDT Atrial Fibrillation Longstanding Persistent (HCC) CT CARDIAC PULMONARY VEINS WITH IV CONTRAST RAD - Routine (most inpatients and all outpatients) 01/12/2024 2:23 PM CDT Atrial Fibrillation Longstanding Persistent (HCC) [place] T4 FREE Routine 01/12/2024 10:39 AM CDT [...] and the findings as documented in the prior authorization technician and also performed a pertinent examination including [...] performed at the request of the primary bilingual customer service. Adult probe inserted without difficulty. LEFT [...] cava. Agitated saline injection(s) performed during sedation. Tauu-wa-lttiy shunt at atrial level on color Doppler [...] Narrator or other pertinent record in Epic for additional procedure and sedation information. Physician [...] No intracardiac mass or thrombus identified. 6. Vrwy-fi-uljgs shunt at atrial level by color flow [...] No intracardiac mass or thrombus identified. 6. Vepl-qz-kxvyv shunt at atrial level by color flow [...] and the findings as documented in the prior authorization technician and alsoperformed a pertinent examination including a heart, airway and lungassessment. Mallampati Assessment: As documented in the RN pre-procedureassessment. Sedation plan: Transesophageal echo - moderate sedation. ASAphysical status score: Class III. The patient's identity and all neededequipment were confirmed and a final confirmatory pause was performed bythe team immediately prior to start. PROCEDURAL ECHO FINDINGS:Transesophageal echocardiogram performed at the request of the primaryservice senior sales consultant. Adult probe inserted without difficulty. [...] leaflet with intact prior MitraClip on the A2-W6efsqmbc functioning well Mitral valve diastolic mean Doppler gradient 5mmHg (heart rate 66 BPM). Normal pulmonary valve. Trivial pulmonary valveregurgitation. Normal tricuspid valve. Mild tricuspid valveregurgitation. OTHER ECHO FINDINGS:Normally connected pulmonary veins. Pulmonary arterybifurcation is normal. Normal superior vena cava. Agitated salineinjection(s) performed during sedation. Honr-ns-gkqcs shunt at atriallevel on color Doppler imaging [...] EDURES * HOLTER MONITOR - IN CLINIC LOCAL CITY DRIVER (01/13/2024 10:15 AM CDT) Min Heart Rate [...] Duration 0 duration INFOBION IC MOME AF [place] 0 percent INFOBIONIC MOME Symptom Count 0 count INFOBI ONIC MOME 01/12/2024 9:55 AM CDT Narrative SUE MURPHY - 01/14/2024 9:21 AM CDT [place] 1. The basic rhythm was sinus. The [...] 1%. 4. No symptomatic events were noted. Folder Machine: DEB Espinoza/ DEB Irvin Procedure Note Luis Felipe Trevizo M.D. - 01/14/2024 [place] 1. The basic rhythm was sinus. The [...] 1%. 4. No symptomatic events were noted. Folder Machine: DEB Espinoza/ DEB Irvin Ron Santana M.D., Ph.D. CV CARDIAC S ERVICES PROCEDURES SUE MURPHY NA * (TTE) 2D ECHO DOPPLER COLOR [...] to 5 mm interatrial septal defect with zpvr-oq-mzpwg flow, likely iatrogenic related to prior septal [...] to 5 mm interatrial septal defect with zmuj-rj-isauv flow, likely related to prior septal puncture. [...] to 5 mm interatrial septal defect with jgft-mn-pvzfg flow, likelyrelated to prior septal puncture. MitraClip. [...] to 5 mm interatrial septal defect with vttb-em-abopu flow,likely iatrogenic related to prior septal puncture. [...] have slightly increased. Ron Santana M.D., Ph.D. [facility] PROCE DURES * T4 (Thyroxine), Free, Serum (01/12/2024 10:39 AM CDT) T4 (Thyroxine), Free, S 1.6 0.9 - 1.7 ng/dL 01/12/2024 1:13 PM CDT DTL Blood 01/12/2024 10:3 9 AM CDT 01/12/2024 11:20 AM CDT Ron Santana M.D., Ph.D. LAB BLOOD AD D-ON [facility] [address] [place] [address], [facility] DTL [facility] [place] [address] * (ABNORMAL) Thyroid Function [place] (01/12/2024 10:39 AM CDT) Pathologist [facility] TSH, Sensitive 4.5(H) 0.3 - 4.2 mIU/L 01/12/2024 12:53 PM CDT DTL Blood (Blood, Venous) 01/12/2024 10:39 AM CDT 01/12/2024 11:20 AM CDT Ron Santana M.D., Ph.D. LAB BLOOD AD D-ON [facility] 200 [place] [address] * Thyroperoxidase (TPO) Antibodies (01/12/2024 10:39 AM CDT) [facility] Thyroperoxidase Ab, S <15.0 <34.0 IU/mL 01/12/2024 1:13 PM CDT DTL Blood 01/12/2024 10:3 9 AM CDT 01/12/2024 11:20 AM CDT Ron Santana M.D., Ph.D. [place] [address] * (ABNORMAL) CBC without Differential (01/12/2024 10:39 AM CDT) Pathologist [facility] Hemoglobin 8.8(L) 13.2 - 16.6 g/dL 01/12/2024 [...] LAB BLOOD AD D-ON Performing Organization Address City/[facility]/ZIP Co de Phone Number [facility] [address] DTL [facility] 200 [place] [address] * Type and Screen (with Reflex Antibody ID) (01/12/2024 10:39 AM CDT) Pathologist [facility] ABORh B Pos Not applicable 01/12/2024 5:39 PM CDT ETRM Antibody Screen Negative Negative 01/12/2024 5:45 PM CDT ETRM Type & Screen Expiration 03/11/2024 23:59 01/12/2024 5:39 PM CDT ETRM Testing Location [place] DEFAULT 01/12/2024 11:57 AM CDT ETRM Blood (Blood, Venous) 01/12/2024 10:39 AM CDT 01/12/2024 11:57 AM CDT Ron Santana M.D., Ph.D. LAB BLOOD BA NK TEST ORDERABLES Performing Organization Address City/[facility]/ZIP Co de Phone Number [facility] 200 [place] [address], [facility] [place] [address] * (ABNORMAL) Comprehensive Metabolic Panel (01/12/2024 10:39 [...] LAB BLOOD AD D-ON Performing Organization Address [facility] Co de Phone Number [facility] [address] [place] [address], [facility] DTL [facility] [address] [place] [address] * ECG 12 Lead (01/12/2024 9:39 AM CDT) Ventricular Rate ECG/Min 69 BPM MUSE MO Interval 201 ms MUSE QRSD Interval 98 ms MUSE QT Interval 450 ms MUSE QTC Interval 482 ms MUSE P Carmichael 70 degrees MUSE R Carmichael 73 degrees MUSE T Wave [place]ichael 32 degrees MUSE 01/12/2024 9:39 AM CDT [...] Ph.D. ECG ORDERABL ES Performing Organization Address City/[facility]/ZIP Co de Phone Number MUSE NA * [...] Advance Directives For more information, please contact: [phone] * Full Code (Latest Code Status on File) Date Activated Date Inactivated Comments 01/06/2022 5:12 PM 01/09/2022 4:47 PM Question Answer Comments Full Code: Discussed * Full Code Date Activated Date Inactivated Comments 06/28/2019 12:14 PM 06/29/2019 2:37 PM Question Answer Comments Full Code: Discussed Care Teams Route Agent Relationship Specialty Start Date End Date Elsewhere, Pcp PCP - General Manufacturing Controller 06/27/19
--- OUTSIDE RECORDS SUMMARY | 2024-02-23 18:06 | XMS_ITS | Encounter Summary ---
Author Organization [facility] Address [address] [place] [address] Care Team Providers Care Home Security Professional Name Role Phone Elsewhere, Pcp Primary Care Provider Unavailabl e Reason for Visit * Reason Onset Date Comments Pre-visit Testing Orders 01/20/2024 Encounter Details Date Type Department Care Team (Latest Contact Info) Description 01/20/2024 Clinical Communication Department of Cardiovascular Medicine in [place], [place] [address] [place] [address] Loraine Thakkar M.D. [address] [place] [phone] Pre-visit Testing Orders Social History Tobacco Use Types Packs/Day Years Used Date Smoking Tobacco: Never Smokeless Tobacco: Never Alcohol Use Standard Drinks/Week Comments Never 0 (1 standard drink = 0.6 oz pur e alcohol) [facility] Utilities Answer Date Recorded In the past 12 months has [facility] [employer], gas, oil, or water [employer] threatened to shut off services in your [...] week 06/30/2021 How often do you attend tenriism or pentecostalism serv ices? Never 06/30/2021 Do you belong to any clubs o r organizations such as tenriism groups, unions, fraternal or athletic groups, or [...] and heating? Not hard at all 06/30/2021 [facility] [place] of Occupat ional Health - Occupational Stress [...] your living situation today? I have a [facility] place to live 01/13/2024 Education Answer Date Recorded What is the highest level of school you have completed or the highest degree you have received? Professional school degree (e.g., MD, DDS, DVM, GRACIELA) 06/30/2021 Sex and Gender Information Value Date Recorded Sex Assigned at Male 06/30/2021 12:19 PM DIABETES EDUCATOR Gender Identity Male 06/30/2021 12:19 PM DIABETES EDUCATOR Sexual Orientation Straight 06/30/2021 12 :19 PM DIABETES EDUCATOR documented as of this encounter Plan of Treatment Upcoming Encounters Date Type Department Care Team (Latest Contact Info) Description 03/07/2024 1:00 PM CDT Clinical Communication Virtual Review in [place], [place] 200 [place] [address] 03/13/2024 8:15 AM CDT Appointment Department of Radiology, [facility] in [place], [place] [address] [place] [phone] Marilu Castaneda P.A.-C., M.S. [address] [place] [phone] 03/13/2024 8:40 AM CDT Appointment Department of Laboratory Medicine and Pathology, [facility], in [place], [place] [address] [place] [phone] Loraine Thakkar M.D. [address] [place] [address] 03/13/2024 10:00 AM CDT Comprehensive Visit Department of Cardiovascular Medicine in [place], [place] [address] [place] [address] Loraine Thakkar M.D. [address] [place] [address] 03/26/2024 12:15 PM CDT Appointment Department of Radiology, [facility], in [place], [place] [address] [place] [address] Birdie Hurtado M.D. [address] [place] [phone] Scheduled Orders Name Type Priority Associated Diagnoses Orde r Schedule Albumin Lab Routine Regurgitation Mitral Repair Mitral Valve Status Post Expected: 03/13/2024, Expires: 01/19/2025 Creatinine with Estimated GFR Lab Routine Regurgitation Mitral Repair Mitral Valve Status Post Expected: 03/13/2024, Expires: 01/19/2025 Glucose, Fasting Lab Routine Regurgitation Mitral Repair Mitral Valve Status Post Expected: 03/13/2024, Expires: 01/19/2025 Potassium Lab Routine Regurgitation Mitral Repair Mitral Valve Status Post Expected: 03/13/2024, Expires: 01/19/2025 Sodium Lab Routine Regurgitation Mitral Repair Mitral Valve Status Post Expected: 03/13/2024, Expires: 01/19/2025 Prothrombin Time (PT) Lab Routine Regurgitation Mitral Repair Mitral Valve Status Post Expected: 03/13/2024, Expires: 01/19/2025 CBC with Differential, Blood Lab Routine Regurgitation Mitral Repair Mitral Valve Status Post Expected: 03/13/2024, Expires: 01/19/2025 Lipid Panel Lab Routine Regurgitation Mitral Repair Mitral Valve Status Post Expected: 03/13/2024, Expires: 01/19/2025 NT-Pro B-Type Natriuretic Peptide (BNP) Lab Routine Regurgitation Mitral Repair Mitral Valve Status Post Expected: 03/13/2024, Expires: 01/19/2025 documented as of this encounter Visit Diagnoses Diagnosis Regurgitation Mitral- Primary Repair Mitral Valve Status Post documented in this encounter Additional Health Concerns Infection Onset Date Last Indicated Resolved Time Protective Environment 09/20/2022 09/20/2022 Assessment Noted Time PHQ-9 Depression Total Score: 6 07/17/19 20 10:26 AM DIABETES EDUCATOR documented as of this encounter Care Teams Home Security Professional Relationship Specialty Start Date End Date Elsewhere, Pcp PCP - General International Marketing Executive 06/27/19 documented as of this encounter
--- OUTSIDE RECORDS SUMMARY | 2024-02-23 18:06 | XMS_ITS | Encounter Summary ---
Author Organization [facility] Address [address] [place] [phone] Care Team Providers Care Child Nutrition Assistant Name Role Phone Elsewhere, Pcp Primary Care Provider Unavailabl e Reason for Visit * Reason Onset Date Comments Triage 01/16/2024 Encounter Details Date Type Department Care Team (Latest Contact Info) Description 01/16/2024 Clinical Communication Department of Cardiovascular Medicine in [place], [place] [address] [place] [address] aMggi Robles R.N. [address] [place] [address] Triage Social History Tobacco Use Types Packs/Day Years Used Date Smoking Tobacco: Never Smokeless Tobacco: Never Alcohol Use Standard Drinks/Week Comments Never 0 (1 standard drink = 0.6 oz pur e alcohol) [facility] Utilities Answer Date Recorded In the past 12 months has [facility] [employer], gas, oil, or water [employer] threatened to shut off services in your [...] week 06/30/2021 How often do you attend adventism or jehovah's witness serv ices? Never 06/30/2021 Do you belong to any clubs o r organizations such as adventism groups, unions, fraternal or athletic groups, or [...] and heating? Not hard at all 06/30/2021 [facility] - Occupational [...] your living situation today? I have a [facility] place to live 01/13/2024 Education Answer Date Recorded What is the highest level of school you have completed or the highest degree you have received? Professional school degree (e.g., MD, DDS, DVM, GRACIELA) 06/30/2021 Sex and Gender Information Value Date Recorded Sex Assigned at Male 06/30/2021 12:19 PM EXPERIMENTAL OUTBOARD MOTORS MECHANIC Gender Identity Male 06/30/2021 12:19 PM EXPERIMENTAL OUTBOARD MOTORS MECHANIC Sexual Orientation Straight 06/30/2021 12 :19 PM EXPERIMENTAL OUTBOARD MOTORS MECHANIC documented as of this encounter Miscellaneous Notes * Telephone Encounter - Maggi Robles R.N. - 01/16/2024 11:58 AM CDT Pre-appointment valve clinic triage/record review. The following information has been collected from the medical record. It is not a comprehensive summary and has not been verified with the patient. The Appointment Triage Team does not establish a relationship with the patient, nor manage the patient's care outside of an initial review for the purposes of an appointment triage. For any questions, please contact the patient's primary provider. 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 [address] [place] [phone] 03/13/2024 8:40 AM CDT Appointment Department of Laboratory Medicine and Pathology, [facility] in [place], [place] [address] [place] [phone] Loraine Thakkar M.D. [address] [place] [phone] 03/13/2024 10:00 AM CDT Comprehensive Visit Department of Cardiovascular Medicine in [address] [phone] Loraine Thakkar M.D. [address] [place] [phone] 03/26/2024 12:15 PM CDT Appointment Department of Radiology, [facility] in [place], [place] [address] [place] [phone] Birdie Hurtado M.D. [address] [place] [phone] documented as of this encounter Visit Diagnoses Not on filedocumented in this encounter Additional Health Concerns Infection Onset Date Last Indicated Resolved Time Protective Environment 09/20/2022 09/20/2022 Assessment Noted Time PHQ-9 Depression Total Score: 6 07/17/19 20 10:26 AM EXPERIMENTAL OUTBOARD MOTORS MECHANIC documented as of this encounter Care Teams Child Nutrition Assistant Relationship Specialty Start Date End Date Elsewhere, Pcp PCP - General Enamel Applier 06/27/19 documented as of this encounter
--- OUTSIDE RECORDS SUMMARY | 2024-02-23 18:06 | XMS_ITS | Encounter Summary ---
Author Organization [facility] Address [address] [place] [address] Care Team Providers Care Firer Portable Boiler Name Role Phone Elsewhere, Pcp Primary Care Provider Unavailabl e Reason for Visit * Reason Onset Date Comments Appt Request 01/13/2024 Encounter Details Date Type Department Care Team (Latest Contact Info) Description 01/13/2024 Clinical Communication Department of Cardiovascular Medicine in [place], [place] [address] [place] [address] Etl TesterZelalem M.D. Appt Request Social History Tobacco Use Types Packs/Day Years Used Date Smoking Tobacco: Never Smokeless Tobacco: Never Alcohol Use Standard Drinks/Week Comments Never 0 (1 standard drink = 0.6 oz pur e alcohol) [facility] Utilities Answer Date Recorded In the past 12 months has e [employer], gas, oil, or water [employer] threatened to shut off services in your [...] week 06/30/2021 How often do you attend sabianism or synagogue serv ices? Never 06/30/2021 Do you belong to any clubs o r organizations such as sabianism groups, unions, fraternal or athletic groups, or [...] and heating? Not hard at all 06/30/2021 [facility] ional [facility] - [...] your living situation today? I have a [facility] place to live 01/13/2024 Education Answer Date Recorded What is the highest level of school you have completed or the highest degree you have received? Professional school degree (e.g., MD, DDS, DVM, GRACIELA) 06/30/2021 Sex and Gender Information Value Date Recorded Sex Assigned at Male 06/30/2021 12:19 PM DIRECTOR OF SUPPLY CHAIN Gender Identity Male 06/30/2021 12:19 PM DIRECTOR OF SUPPLY CHAIN Sexual Orientation Straight 06/30/2021 12 :19 PM DIRECTOR OF SUPPLY CHAIN documented as of this encounter Miscellaneous Notes * Telephone Encounter - Georgiana Colmenares - 01/13/2024 4:46 PM CDT ----- Message from Marilu Castaneda P.A.-C., M.S. sent at 01/13/2024 4:24 PM CDT ----- Regarding: Valve clinic request I have placed a request for valve clinic follow up based on testing obtained for his preprocedure visit today. This showed be scheduled 1st available. Thank you, Marilu documented in this encounter Plan of Treatment Upcoming Encounters Date Type Department Care Team (Latest Contact Info) Description 03/07/2024 1:00 PM CDT Clinical Communication Virtual Review in [place], [place] [address] [place] [address] 03/13/2024 8:15 AM CDT Appointment Department of Radiology, [facility], in [place], [place] [address] [place] [address] Marilu Castaneda P.A.-C., M.S. [address] [place] [phone] 03/13/2024 8:40 AM CDT Appointment Department of Laboratory Medicine and Pathology, [facility] in [place], [place] [address] [place] [address] Loraine Thakkar M.D. [address] [place] [phone] 03/13/2024 10:00 AM CDT Comprehensive Visit Department of Cardiovascular Medicine in [place], [place] [address] [place] [address] Loraine Thakkar M.D. [address] [place] [phone] 03/26/2024 12:15 PM CDT Appointment Department of Radiology, [facility] in [place], [place] [address] [place] [address] Birdie Hurtado M.D. [address] [place] [phone] documented as of this encounter Visit Diagnoses Not on filedocumented in this encounter Additional Health Concerns Infection Onset Date Last Indicated Resolved Time Protective Environment 09/20/2022 09/20/2022 Assessment Noted Time PHQ-9 Depression Total Score: 6 07/17/19 20 10:26 AM DIRECTOR OF SUPPLY CHAIN documented as of this encounter Care Teams Firer Portable Boiler Relationship Specialty Start Date End Date Elsewhere, Pcp PCP - General Shellfish Manager 06/27/19 documented as of this encounter
--- OUTSIDE RECORDS SUMMARY | 2024-02-23 18:07 | XMS_ITS | Clinical Summary ---
Author Organization [facility] Address [place], [place] [address] Care Team Providers Care Flexible Machining System Machinist Name Role Phone Nikki Reilly DO Primary Care Provider [phone] Allergies Active Allergy Reactions Criticality Noted Date Comments Ibrutinib Rash High 04/12/2022 Penicillins Hives Medications Medication Sig Dispensed Refills Start Date End Date Status docusate (COLACE) 100 mg capsuleIndications:Dee ronlora constipation Take 1 capsule by mouth 2 times daily if needed for Constipation. 30 capsule 07/04/2019 Active magnesium chloride delayed release tabletIndications:Low magnesium level One oral every day 90 [...] ZESTRIL) 10 mg tablet 10 mg. 06/27/2022 Act [place] metoprolol tartrate (LOPRESSOR) 25 mg tablet Take 1 Tablet (25 mg) by mouth two times daily. 60 Tablet 11 12/23/2022 Active rivaroxaban (XARELTO) 20 mg tabletIndications:Fabián gstanding persistent atrial fibrillation (HC) Take 1 Tablet (20 mg) by mouth once daily with evening meal. 0 12/23/2022 Active ferrous sulfate 325 mg delayed release tabletIndications:Markie rocytic anemia Take 1 Tablet (325 mg) by mouth once daily with a meal. 65 mg three times daily. 90 Tablet 3 12/23/2022 Active fluticasone (50 mcg per actuation) nasal solution (FLONASE)Indications: Bleeding Inhale 2 Sprays to both nostrils once daily. 16 g 07/08/2023 Active levothyroxine (SYNTHROID) 75 mcg tabletIndications:Hyp othyroidism (acquired) TAKE ONE TABLET BY MOUTH ONCE EVERY DAY BEFORE BREAKFAST. 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 During stress test. No recurrence since. Personal history of malignant neoplasm of prosta te 06/28/2019 Overview (12/17/2022): 2005 s/p radioactive seeds Personal history of surgery to heart and great vessels, presenting hazards to health 06/28/2019 Mitral valve insufficiency 06/26/2019 Overview (12/17/2022): W/ a flail segment of the lateral aspect of P2 with associated severe MR. Rupture of chordae tendineae 06/13/2019 Chronic lymphocytic leukemia 09/12/2018 Malignant melanoma of skin of trunk 11/22/2011 Overview (12/17/2022): S/p excision Primary hypertension 09/16/2008 Prostate cancer 09/16/2008 Benign prostatic hyperplasia without urinary obs truction 09/16/2008 Anxiety state, unspecified 09/16/2008 Agoraphobia with panic attack Resolved Problems Problem Noted Date Diagnosed Date Resolved Date Paroxysmal ventricular tachycardia 09/16/2008 03/15/2019 Encounters Date Type Department Care Team Description 12/27/2023 Orders Only [facility] Scanner 1 scan: (1-Ord) [facility], 12/27/2023 12/19/2023 Refill [facility] [address] [place] [address] Nikki Reilly DO Refill Request (Alprazolam) 11/24/2023 Orders Only [facility] Scanner 1 scan: (1-Ord) [place], [facility] TO MID THIGH, 11/24/2023 from Last 3 Months Immunizations Name Administration [...] Comments Good Health Brother 2 Cancer Father hodgekins age 2 3 Other Father Hodgkins Heart [...] Comments Blood Pressure 158/84 07/08/2023 11:24 AM FORKLIFT OPERATOR Pulse 72 07/08/2023 11:24 AM FORKLIFT OPERATOR Temperature 36.9 ??C (98.4 ??F) 04/23/2020 11:[address] Respiratory Rate 16 03/20/2020 2:20 PM CDT Oxygen Saturation 99% 07/08/2023 11:24 AM FORKLIFT OPERATOR Inhaled Oxygen Concentration - - Weight 79.8 kg (176 lb) 07/08/2023 11:24 AM FORKLIFT OPERATOR Height 175.2 cm (5' 8.98) 12/23/2022 9:23 AM CD T Body Mass Index 26.01 12/23/2022 9:23 AM CDT Plan of Treatment Health Maintenance Due Date Last Done Comments RSV vaccine for adults or (1 - 1-dose 60+ series) 2005 Zoster (shingles) series for age 50+ (1 of 2) 12/07/2010 10/12/2010 Tetanus booster 09/11/2022 09/11/2012, 01/04, 01/19/2006 BMI (ht and wt on same day) for age 18+ 12/24/2023 12/23/2022, 04/23/2020, 07/04/2019, Additional history exists Depression screening for age 12+ 12/24/2023 12/23/2022, 08/18/2018, 08/16/2018, Additional history exists Medicare Wellness for age 65+ 12/24/2023, 03/09/2018, 02/16/2017, Additional history exists COVID-19 vaccine series (2022- season) 2024 03/02/2022, 09/29/2021, 02/17/2021, Additional history exists Influenza for age 65+ 02/05/2024 04/02/2022 , 02/28/2020, 02/12/2019, Additional history exists Tdap Completed 09/11/2012 Pneumococcal series for age 65+ Completed 5, 10/12/2010 Hepatitis C screening for ag e 18-79 Completed 03/09/2018 Procedures Procedure Name Priority Date/Time Associated Diagnosis Comments SCAN-ULTRASOUND REPORT 12/27/2023 12:00 AM CDT SCAN-PET SCAN 11/24/2023 12:00 AM CDT ANTI HCV Routine 03/09/2018 10:39 AM CDT Need for hepatitis C screening test from Last 3 Months or Most Recently Relevant to Health Maintenance Results * SCAN-ULTRASOUND REPORT (12/27/2023 12:00 AM CDT) Anatomical Region Laterality Modality Other Scanner OTHER * SCAN-PET SCAN (11/24/2023 12:00 AM CDT) Anatomical Region Laterality Modality Other Scanner OTHER * ANTI HCV [25786.2] (03/09/2018 10:39 AM CDT) HEPATITIS C ANTIBODY Non-React irlanda Non-React irlanda 03/09/2018 5:05 PM CDT [facility] Comment:Antibodies to HCV no t detected; does not exclude the possibility of exposure to HCV. Blood BLOOD SPECIMEN / Unknown Venipuncture / Unknown 03/09/2018 10:39 AM CDT 03/09/2018 10:39 AM CDT Ron Garcia MD SEND OUTS [facility] [address] [place] [address], from Last 3 Months or Most Recently Relevant to Health Maintenance Advance Directives * Full Code (Latest Code Status on File) Date Activated Date Inactivated Comments 11/22/2011 11:07 AM 11/22/2011 3:00 PM * Full Code Date Activated Date Inactivated Comments 11/22/2011 9:03 AM 11/22/2011 11:07 AM Care Teams Flexible Machining System Machinist Relationship Specialty Start Date End Date Nikki Reilly [place] [address] [address] PCP - General Family Practice 12/15/22
--- OUTSIDE RECORDS SUMMARY | 2024-02-23 18:07 | XMS_ITS | Encounter Summary ---
Author Organization [facility] Address [address] [place] [address] Care Team Providers Care Machinist Mechanic Name Role Phone Elsewhere, Pcp Primary Care Provider Unavailabl e Encounter Details Date Type Department Care Team (Late st Contact Info) Description 11/24/2023 Clinical Communication Department of Oncology in [address] [phone] Carlotta Zee, RBuddyN. Social History Tobacco Use [...] week 06/30/2021 How often do you attend scientologist or mandaen serv ices? Never 06/30/2021 Do you belong to any clubs o r organizations such as scientologist groups, unions, fraternal or athletic groups, or [...] and heating? Not hard at all 06/30/2021 [facility] - Occupational Stress Questionnaire Answer Date [...] Sex Assigned at Male 06/30/2021 12:19 PM SIEVE GRADER TENDER Gender Identity Male 06/30/2021 12:19 PM SIEVE GRADER TENDER Sexual Orientation Straight 06/30/2021 12 :19 PM SIEVE GRADER TENDER documented as of this encounter Plan of Treatment Upcoming Encounters Date Type Department Care Team (Latest Contact Info) Description 03/07/2024 1:00 PM CDT Clinical Communication Virtual Review in [place], [place] 200 [place] [address] 03/13/2024 8:15 AM CDT Appointment Department of Radiology, [facility] in [place], [place] [address] [place] [phone] Marilu Castaneda P.A.-C., M.S. [address] [place] [phone] 03/13/2024 8:40 AM CDT Appointment Department of Laboratory Medicine and Pathology, [facility], in [place], [place] [address] [place] [phone] Loraine Thakkar M.D. [address] [place] [address] 03/13/2024 10:00 AM CDT Comprehensive Visit Department of Cardiovascular Medicine in [place], [place] [address] [place] [address] Loraine Thakkar M.D. [address] [place] [address] 03/26/2024 12:15 PM CDT Appointment Department of Radiology, [facility], in [place], [place] [address] [place] [address] Birdie Hurtado M.D. [address] [place] [phone] documented as of this encounter Visit Diagnoses Not on filedocumented in this encounter Additional Health Concerns Infection Onset Date Last Indicated Resolved Time Protective Environment 09/20/2022 09/20/2022 Assessment Noted Time PHQ-9 Depression Total Score: 6 07/17/19 20 10:26 AM SIEVE GRADER TENDER documented as of this encounter Care Teams Machinist Mechanic Relationship Specialty Start Date End Date Elsewhere, Pcp PCP - General Certified Lactation Educator 06/27/19 documented as of this encounter
--- OUTSIDE RECORDS SUMMARY | 2024-02-23 18:07 | XMS_ITS | Encounter Summary ---
Author Organization [facility] Address [address] [place] [id number] Care Team Providers Care Web Application Developer Name Role Phone Elsewhere, Pcp Primary Care Provider Unavailabl e Reason for Referral * Outpatient (Routine) - Closed Specialty Diagnoses / Procedures Referred By Contac t Referred To Contact Cardiovascular Disease Ron Santana M.D., Ph.D. [address] [place] [phone] [facility] Referral ID Status Reason Start Date Expiration Date Visits Re quested Visits Authorized [id number] Closed 11/09/2023 05/10/2025 1 1 * MRI/CAT/PET Scan (Routine) - Closed Specialty Diagnoses / Procedures Referred By Contac t Referred To Contact Radiology Diagnoses Atrial Fibrillation Longstanding Persistent (HCC) Procedures CT Cardiac Pulmonary Veins with IV Ron Santana M.D., Ph.D. [address] [place] [phone] [facility] Referral ID Status Reason Start Date Expiration Date Visits Re quested Visits Authorized [id number] Closed 11/09/2023 11/08/2024 1 1 * Cardiovascular-Diagnostic (Routine) - Closed Specialty Diagnoses / Procedures Referred By Contac t Referred To Contact Diagnoses Atrial Fibrillation Longstanding Persistent (HCC) Procedures Echo Transesophageal (MERVAT) Ron Santana M.D., Ph.D. [address] [place] [phone] [facility] Referral ID Status Reason Start Date Expiration Date Visits Re quested Visits Authorized [id number] Closed 11/09/2023 11/08/2024 1 1 * Outpatient (Routine) - Authorized Specialty Diagnoses / Procedures Referred By Contac t Referred To Contact Diagnoses Atrial Fibrillation Longstanding Persistent (HCC) Procedures ECG Heart rhythm monitor (Holter) Ron Santana M.D., Ph.D. [address] [place] [phone] [facility] Referral ID Status Reason Start Date Expiration Date V isits Requested Visits Authorized [id number] Authorized 11/09/2023 11/08/2024 1 1 * Cardiovascular-Diagnostic (Routine) - Closed Specialty Diagnoses / Procedures Referred By Contac t Referred To Contact Diagnoses Atrial Fibrillation Longstanding Persistent (HCC) Procedures Echo Transthoracic (TTE) Ron Santana M.D., Ph.D. [address] [place] [phone] [facility] Referral ID Status Reason Start Date Expiration Date Visits Re quested Visits Authorized [id number] Closed 11/09/2023 11/08/2024 1 1 * Outpatient (Routine) - Closed Specialty Diagnoses / Procedures Referred By Contac t Referred To Contact Diagnoses Atrial Fibrillation Longstanding Persistent (HCC) Procedures ECG 12 Lead Ron Santana M.D., Ph.D. [address] [place] [phone] [facility] Referral ID Status Reason Start Date Expiration Date Visits Re quested Visits Authorized [id number] Closed 11/09/2023 11/08/2024 1 1 Encounter Details Date Type Department Care Team (Latest Contact Info) Description 11/08/2023 Clinical Communication Department of Cardiovascular Medicine in [place], [place] [address] [place] [address] Vee Jalloh R.N. [address] [place] [address] Social History Tobacco Use Types Packs/Day Years [...] week 06/30/2021 How often do you attend jainism or buddhism serv ices? Never 06/30/2021 Do you belong to any clubs o r organizations such as jainism groups, unions, fraternal or athletic groups, or [...] and heating? Not hard at all 06/30/2021 [facility] of Occupat ional Health - Occupational Stress [...] Sex Assigned at Male 06/30/2021 12:19 PM CORE ANALYSIS OPERATOR Gender Identity Male 06/30/2021 12:19 PM CORE ANALYSIS OPERATOR Sexual Orientation Straight 06/30/2021 12 :19 PM CORE ANALYSIS OPERATOR documented as of this encounter Miscellaneous Notes * Telephone Encounter - Vee Jalloh R.N. - 11/08/2023 1:07 PM CDT Contact Chad JordanBuddy Jensen regarding the scheduling of their PVI ablation. Mr. Jensen was referred byDr Santana for this procedure. He had virtual visit with Dr Santana 10/06/2023 and 08/14/2023, please see his notes for details of those visits.[id number] score of 4 for age over 75,HTN, [...] sedation for your procedure, so an adult dolly driver and supervision is required for 24 hours after the procedure. Please ensure you have someone present with you the day of your test. Calling in for your report time: The night before the procedure, please call the [facility] Service Line ([phone]) or the [facility] Backup Line ([phone]) between 7pm and midnight to find out what time to arrive. This automated phone line will have you type in your [facility] Number [phone] followed by # and birthdate (format of xx/xx/xxxx#) to determine your arrival time. On the day of your procedure: Check into [facility], [facility] 4th Floor (east elevators) at the [facility] 4D desk. You do not need [...] to either live within 100 miles of [place], [place] or spend the night in [place], [place] post procedure. If you live within 100 miles and live greater than 30 minutes outside of [place], [place]); it is highly recommended that you spend the night in [place], [place]. -If you experience any complications or have questions post procedure overnight, please call the [facility] Outside Sales Inspector at: [phone] and ask for [facility]. They will connect you to the on-call provider to assist you further. -You will receive sedation for your procedure, so an adult dolly driver and supervision is required for 24 [...] as get records faxed to us at [phone]. Another most common thing that can occur [...] first 3 months and they will determine residential anticoagulation at your follow up visit. If [...] needed would be at their discretion. The [facility] Team is happy to address any current rhythm issues but all other cares or concerns should be directed to your local primary care team. Contact information: -If you have any further questions prior to your procedure, please contact the [facility] Heart Rhythm Services Nurse Line at [phone] (available M-F 8 am to 5 pm CORE ANALYSIS OPERATOR). -If you have any concerns or questions regarding your schedule, please contact the scheduling team at [phone]. -If you have any concerns or questions about your insurance or procedure coverage, please contact the business office at [phone], option 1. [facility] Specific Instructions: -We encourage you to check [email or web address] for more information onthese instructions including visitor policies. The patient verbalized understanding and agreement with instructions. All questions were answered. documented in this encounter Plan of Treatment Upcoming Encounters Date Type Department Care Team (Latest Contact Info) Description 03/07/2024 1:00 PM CDT Clinical Communication Virtual Review in [address] [phone] 03/13/2024 8:15 AM CDT Appointment Department of Radiology, [facility], in [address] [phone] Marilu Castaneda P.A.-C., M.S. [address] [place] [phone] 03/13/2024 8:40 AM CDT Appointment Department of Laboratory Medicine and Pathology, [facility] in [address] [phone] Loraine Thakkar M.D. [address] [place] [phone] 03/13/2024 10:00 AM CDT Comprehensive Visit Department of Cardiovascular Medicine in [place], [place] [address] [place] [phone] Loraine Thakkar M.D. [address] [place] [phone] 03/26/2024 12:15 PM CDT Appointment Department of Radiology, [facility] in [place], [place] [address] [place] [address] Birdie Hurtado M.D. [address] [place] [phone] Scheduled Referrals Name Type Priority Associated Diagnoses Order Schedule Cardiovascular Disease office visit (clinic) Outpatient Referral Routine Expect ed: 01/13/2024, Expires: 11/07/2024 documented as of this encounter Results * (MERVAT) 2D WITH [...] and the findings as documented in the farmworker animal and also performed a pertinent examination including [...] performed at the request of the primary shared services and outsourcing manager. Adult probe inserted without difficulty. LEFT VENTRICLE:Mildly [...] cava. Agitated saline injection(s) performed during sedation. Brmy-da-hsqok shunt at atrial level on color Doppler [...] Sedation Narrator or other pertinent record in [facility] for additional procedure and sedation information. [...] No intracardiac mass or thrombus identified. 6. Zbvw-sx-dioby shunt at atrial level by color flow [...] No intracardiac mass or thrombus identified. 6. Vivg-rb-hnukf shunt at atrial level by color flow [...] and the findings as documented in the farmworker animal and alsoperformed a pertinent examination including a heart, airway and lungassessment. Mallampati Assessment: As documented in the RN pre-procedureassessment. Sedation plan: Transesophageal echo - moderate sedation. ASAphysical status score: Class III. The patient's identity and all neededequipment were confirmed and a final confirmatory pause was performed bythe team immediately prior to start. PROCEDURAL ECHO FINDINGS:Transesophageal echocardiogram performed at the request of the primaryservice operational risk consultant. Adult probe inserted without difficulty. LEFT [...] leaflet with intact prior MitraClip on the A2-W2dssxxle functioning well Mitral valve diastolic mean Doppler gradient 5mmHg (heart rate 66 BPM). Normal pulmonary valve. Trivial pulmonary valveregurgitation. Normal tricuspid valve. Mild tricuspid valveregurgitation. OTHER ECHO FINDINGS:Normally connected pulmonary veins. Pulmonary arterybifurcation is normal. Normal superior vena cava. Agitated salineinjection(s) performed during sedation. Pgsq-dm-imdlt shunt at atriallevel on color Doppler imaging [...] EDURES * HOLTER MONITOR - IN CLINIC PARTS MANAGER (01/13/2024 10:15 AM CDT) Min Heart Rate [...] Duration 0 duration INFOBION IC MOME AF Hatch 0 percent INFOBIONIC MOME Symptom Count 0 count INFOBI ONIC MOME 01/12/2024 9:55 AM CDT Narrative INFOBIONIC MOME - 01/14/2024 9:21 AM CDT Kate 1. The basic rhythm was sinus. [...] 1%. 4. No symptomatic events were noted. Chemical Plant Operator Supervisor: DEB Espinoza/ DEB Irvin Procedure Note Luis Felipe Trevizo M.D. - 08/10/2024 Kate 1. The basic rhythm was sinus. [...] 1%. 4. No symptomatic events were noted. Chemical Plant Operator Supervisor: DEB Espinoza/ DEB Irvin Ron Santana M.D., [...] to 5 mm interatrial septal defect with vhql-bp-kuhde flow, likely iatrogenic related to prior septal [...] to 5 mm interatrial septal defect with mdqb-ws-ztexe flow, likely related to prior septal puncture. [...] to 5 mm interatrial septal defect with vvzp-qp-ylmuh flow, likelyrelated to prior septal puncture. MitraClip. [...] to 5 mm interatrial septal defect with crwo-xz-vdplr flow,likely iatrogenic related to prior septal puncture. [...] have slightly increased. Ron Santana M.D., Ph.D. G CT LAXMI [place] * (ABNORMAL) Thyroid Function [place] (01/12/2024 10:39 AM CDT) Pathologist [facility] TSH, Sensitive 4.5(H) 0.3 - 4.2 mIU/L 01/12/2024 12:53 PM CDT DTL Blood (Blood, Venous) 01/12/2024 10:39 AM CDT 01/12/2024 11:20 AM CDT Ron Santana M.D., Ph.D. LAB BLOOD AD D-ON Performing Organization Address City/[facility]/ZIP Co de Phone Number [facility] [address] DTL [facility] [address] [place] [address] * Type and Screen (with Reflex Antibody ID) (01/12/2024 10:39 AM CDT) Pathologist [facility] ABORh B Pos Not applicable 01/12/2024 5:39 PM CDT ETRM Antibody Screen Negative Negative 01/12/2024 5:45 PM CDT ETRM Type & Screen Expiration 03/11/2024 23:59 01/12/2024 5:39 PM CDT ETRM Testing Location [place] DEFAULT 01/12/2024 11:57 AM CDT ETRM Blood (Blood, Venous) 01/12/2024 10:39 AM CDT 01/12/2024 11:57 AM CDT Ron Santana M.D., Ph.D. LAB BLOOD BA NK TEST ORDERABLES Performing Organization Address City/[facility]/ZIP Co de Phone Number [facility] [address] [place] [address], [facility] ETRM [facility] [address] [place] [address] * (ABNORMAL) Comprehensive Metabolic Panel (01/12/2024 10:39 AM CDT) [facility] Potassium, S 4.3 3.6 - 5.2 mmol/L [...] LAB BLOOD AD D-ON Performing Organization Address [facility] Co de Phone Number [facility] [address] DTL [facility] [address] [place] [address] * (ABNORMAL) CBC without Differential (01/12/2024 10:39 AM CDT) Hemoglobin 8.8(L) 13.2 - 16.6 g/dL 01/12/2024 [...] BLOOD AD D-ON Performing Organization Address City/[facility]/ZIP Co de Phone Number [facility] [address] DTL [facility] [address] [place] [address] * ECG 12 Lead (01/12/2024 9:39 AM CDT) Ventricular Rate ECG/Min 69 BPM MUSE [place] Interval 201 ms MUSE QRSD Interval 98 ms MUSE QT Interval 450 ms MUSE QTC Interval 482 ms MUSE P [place] 70 degrees MUSE R [place] 73 degrees MUSE T Wave [place] 32 degrees MUSE 01/12/2024 9:39 AM CDT [...] Ron Santana M.D., Ph.D. ECG ORDERABL ES MUSE NA documented in this encounter Visit Diagnoses Diagnosis Atrial Fibrillation Longstanding Persistent (HCC)- Primary Atrial Fibrillation Longstanding Persistent (HCC) Atrial Fibrillation Longstanding Persistent (HCC) Atrial Fibrillation Longstanding Persistent (HCC) Atrial Fibrillation Longstanding Persistent (HCC) documented in this encounter Additional Health Concerns Infection Onset Date Last Indicated Resolved Time Protective Environment 09/20/2022 09/20/2022 Assessment Noted Time PHQ-9 Depression Total Score: 6 07/17/19 20 10:26 AM CORE ANALYSIS OPERATOR documented as of this encounter Care Teams Web Application Developer Relationship Specialty Start Date End Date Elsewhere, Pcp PCP - General Internal Combustion Engineer 06/27/19 documented as of this encounter
--- OUTSIDE RECORDS SUMMARY | 2024-02-23 18:07 | XMS_ITS | Encounter Summary ---
Author Organization [facility] Address [address] [place] [address] Care Team Providers Care Forensic Nurse Name Role Phone Elsewhere, Pcp Primary Care Provider Unavailabl e Encounter Details Date Type Department Care Team (Latest Contact Info) Description 11/17/2023 1:15 PM CDT Ancillary Procedure Department of Radiology in [place], [place] [address] [place] [address] Birdie Hurtado M.D. [address] [place] [phone] Malignant Neoplasm Of Lung Squamous Cell [...] week 06/30/2021 How often do you attend jehovah's witness or advent serv ices? Never 06/30/2021 Do you belong to any clubs o r organizations such as jehovah's witness groups, unions, fraternal or athletic groups, or [...] and heating? Not hard at all 06/30/2021 [facility] of Occupat ional Health - Occupational Stress [...] Sex Assigned at Male 06/30/2021 12:19 PM TRANSFER CAR OPERATOR DRIER Gender Identity Male 06/30/2021 12:19 PM TRANSFER CAR OPERATOR DRIER Sexual Orientation Straight 06/30/2021 12 :19 PM TRANSFER CAR OPERATOR DRIER documented as of this encounter Plan of Treatment Upcoming Encounters Date Type Department Care Team (Latest Contact Info) Description 03/07/2024 1:00 PM CDT Clinical Communication Virtual Review in [place], [place] 200 [place] [phone] 03/13/2024 8:15 AM CDT Appointment Department of Radiology, [facility], in [place], [place] [address] [place] [phone] Marilu Castaneda P.A.-C., M.S. [address] [place] [phone] 03/13/2024 8:40 AM CDT Appointment Department of Laboratory Medicine and Pathology, [facility], in [place], [place] [address] [place] [phone] Loraine Thakkar M.D. [address] [place] [phone] 03/13/2024 10:00 AM CDT Comprehensive Visit Department of Cardiovascular Medicine in [place], [place] [address] [place] [phone] Loraine Thakkar M.D. [address] [place] [phone] 03/26/2024 12:15 PM CDT Appointment Department of Radiology, [facility] in [place], [place] [address] [place] [address] Birdie Hurtado M.D. [address] [place] [phone] documented as of this encounter Procedures [...] especially in the right lower lobe (for example370). Previously new nodular opacity in right middle [...] Achieved Remission (HCC) documented in this encounter Additional Health Concerns Infection Onset Date Last Indicated Resolved Time Protective Environment 09/20/2022 09/20/2022 Assessment Noted Time PHQ-9 Depression Total Score: 6 07/17/19 20 10:26 AM TRANSFER CAR OPERATOR DRIER documented as of this encounter Care Teams Forensic Nurse Relationship Specialty Start Date End Date Elsewhere, Pcp PCP - General Foiling Machine Operator 06/27/19 documented as of this encounter
--- OUTSIDE RECORDS SUMMARY | 2024-02-23 18:07 | XMS_ITS | Encounter Summary ---
Author Organization [facility] Address [address] [place] [address] Care Team Providers Care Truck Trailer Mechanic Name Role Phone Elsewhere, Pcp Primary Care Provider Unavailabl e Encounter Details Date Type Department Care Team (Late st Contact Info) Description 11/21/2023 Orders Only Department of Oncology in [place], [place] [address] [place] [phone] Birdie Hurtado M.D. [address] [place] [phone] Social History Tobacco Use Types Packs/Day Years [...] and heating? Not hard at all 06/30/2021 [facility] of Occupat ional Health - [...] Sex Assigned at Male 06/30/2021 12:19 PM ENVIRONMENTAL DESIGNER Gender Identity Male 06/30/2021 12:19 PM ENVIRONMENTAL DESIGNER Sexual Orientation Straight 06/30/2021 12 :19 PM ENVIRONMENTAL DESIGNER documented as of this encounter Plan of Treatment Upcoming Encounters Date Type Department Care Team (Latest Contact Info) Description 03/07/2024 1:00 PM CDT Clinical Communication Virtual Review in [place], [place] 200 [place] [address] 03/13/2024 8:15 AM CDT Appointment Department of Radiology, [facility], in [place], [place] [address] [place] [phone] Marilu Castaneda P.A.-C., M.S. [address] [place] [phone] 03/13/2024 8:40 AM CDT Appointment Department of Laboratory Medicine and Pathology, [facility], in [place], [place] [address] [place] [address] Loraine Thakkar M.D. [address] [place] [phone] 03/13/2024 10:00 AM CDT Comprehensive Visit Department of Cardiovascular Medicine in [place], [place] [address] [place] [address] Loraine Thakkar M.D. [address] [place] [phone] 03/26/2024 12:15 PM CDT Appointment Department of Radiology, [facility] in [place], [place] [address] [place] [address] Birdie Hurtado M.D. [address] [place] [phone] documented as of this encounter Visit Diagnoses Not on filedocumented in this encounter Additional Health Concerns Infection Onset Date Last Indicated Resolved Time Protective Environment 09/20/2022 09/20/2022 Assessment Noted Time PHQ-9 Depression Total Score: 6 07/17/19 20 10:26 AM ENVIRONMENTAL DESIGNER documented as of this encounter Care Teams Truck Trailer Mechanic Relationship Specialty Start Date End Date Elsewhere, Pcp PCP - General Product Support Consultant 06/27/19 documented as of this encounter
--- OUTSIDE RECORDS SUMMARY | 2024-02-23 18:07 | XMS_ITS | Encounter Summary ---
Author Organization [facility] Address [address] [place] [address] Care Team Providers Care Cardroom Hand Name Role Phone Elsewhere, Pcp Primary Care Provider Unavailabl e Encounter Details Date Type Department Care Team (Latest Contact Info) Description 01/12/2024 10:15 AM CDT - 01/12/2024 1:12 PM CDT Hospital Encounter Department of Laboratory Medicine and Pathology, [facility], in [place], [place] [address] [place] [phone] Ron Santana M.D., Ph.D. [address] [place] [phone] Atrial Fibrillation Longstanding Persistent (HCC) Discharge Disposition: Home or Self Care Social History Tobacco Use Types Packs/Day Years Used Date Smoking Tobacco: Never Smokeless Tobacco: Never Alcohol Use Standard Drinks/Week Comments Never 0 (1 standard drink = 0.6 oz pur e alcohol) [facility] Utilities Answer Date Recorded In the past 12 months has [employer], oil, or water [employer] threatened to shut off services in your [...] week 06/30/2021 How often do you attend sikh or anabaptism serv ices? Never 06/30/2021 Do you belong to any clubs o r organizations such as sikh groups, unions, fraternal or athletic groups, or [...] and heating? Not hard at all 06/30/2021 [facility] of Occupat ional Health - Occupational Stress [...] your living situation today? I have a [facility] place to live 01/13/2024 Education Answer Date Recorded What is the highest level of school you have completed or the highest degree you have received? Professional school degree (e.g., MD, DDS, DVM, GRACIELA) 06/30/2021 Sex and Gender Information Value Date Recorded Sex Assigned at Male 06/30/2021 12:19 PM HAY RAKE OPERATOR Gender Identity Male 06/30/2021 12:19 PM HAY RAKE OPERATOR Sexual Orientation Straight 06/30/2021 12 :19 PM HAY RAKE OPERATOR documented as of this encounter Medications at [...] PM CDT Clinical Communication Virtual Review in [place], [place] 200 [place] [address] 03/13/2024 8:15 AM CDT Appointment Department of Radiology, [address] [phone] Marilu Castaneda P.A.-C., M.S. [address] [place] [phone] 03/13/2024 8:40 AM CDT Appointment Department of Laboratory Medicine and Pathology, [facility], [place] [address] [place] [address] Loraine Thakkar M.D. [address] [place] [phone] 03/13/2024 10:00 AM CDT Comprehensive Visit Department of Cardiovascular Medicine in [place], [place] [address] [place] [address] Loraine Thakkar M.D. [address] [place] [phone] 03/26/2024 12:15 PM CDT Appointment Department of Radiology, [facility] in [place], [place] [address] [place] [address] Birdie Hurtado M.D. [address] [place] [phone] documented as of this encounter Procedures Procedure Name Priority Date/Time Associated Diagnosis Comments [place] T4 FREE Routine 01/12/2024 10:39 AM CDT THYROID FUNCTION CASCADE, S Routine 01/12/2024 10:39 AM CDT Atrial Fibrillation Longstanding Persistent (HCC) THYROPEROXIDASE (TPO) ABS, S Routine 01/12/2024 10:39 AM CDT CBC WITHOUT DIFFERENTIAL, B Routine 01/12/2024 10:39 AM CDT Atrial Fibrillation Longstanding Persistent (HCC) TYPE AND SCREEN Routine 01/12/2024 10:39 AM CDT Atrial Fibrillation Longstanding Persistent (HCC) COMPREHENSIVE METABOLIC PANEL, S/P Routine 01/12/2024 10:39 AM CDT Atrial Fibrillation Longstanding Persistent (HCC) documented in this encounter Results * T4 (Thyroxine), Free, Serum (01/12/2024 10:39 AM CDT) Pathologist [facility] T4 (Thyroxine), Free, S 1.6 0.9 - 1.7 ng/dL 01/12/2024 1:13 PM CDT DT Blood 01/12/2024 10:3 9 AM CDT 01/12/2024 11:20 AM CDT Ron Santana M.D., Ph.D. LAB BLOOD AD D-ON Performing Organization Address City/[facility]/ZIP Co de Phone Number [facility] 200 [place] [address], [facility] 200 [place] [address] * Thyroperoxidase (TPO) Antibodies (01/12/2024 10:39 AM CDT) [facility] Thyroperoxidase Ab, S <15.0 <34.0 IU/mL 01/12/2024 1:13 PM CDT DT Blood 01/12/2024 10:3 9 AM CDT 01/12/2024 11:20 AM CDT Ron Santana M.D., Ph.D. LAB BLOOD AD D-ON Performing Organization Address City/[facility] Co de Phone Number [facility] 200 [place] [address], [facility] 200 [place] [address] * (ABNORMAL) Thyroid Function [place] (01/12/2024 10:39 AM CDT) Pathologist [facility] TSH, Sensitive 4.5(H) 0.3 - 4.2 mIU/L 01/12/2024 12:53 PM CDT DT Blood (Blood, Venous) 01/12/2024 10:39 AM CDT 01/12/2024 11:20 AM CDT Ron Santana M.D., Ph.D. LAB BLOOD AD D-ON [facility] 200 [place] [address], [facility] DTL [facility] 200 [place] [address] * Type and Screen (with Reflex Antibody ID) (01/12/2024 10:39 AM CDT) [facility] ABORh B Pos Not applicable 01/12/2024 5:39 PM CDT ETRM Antibody Screen Negative Negative 01/12/2024 5:45 PM CDT ETRM Type & Screen Expiration 03/11/2024 23:59 01/12/2024 5:39 PM CDT ETRM Testing Location [place] DEFAULT 01/12/2024 11:57 AM CDT ETRM Blood (Blood, Venous) 01/12/2024 10:39 AM CDT 01/12/2024 11:57 AM CDT Ron Santana M.D., Ph.D. LAB BLOOD BA NK TEST ORDERABLES [facility] 200 [place] [address], [facility] ETRM [facility] 200 [place] [address] * (ABNORMAL) Comprehensive Metabolic Panel (01/12/2024 10:39 AM CDT) [facility] Potassium, S 4.3 3.6 - 5.2 mmol/L [...] Santana M.D., Ph.D. LAB BLOOD AD D-ON [facility] [address] [place] [address], [facility] [address] [place] [address] * (ABNORMAL) CBC without Differential (01/12/2024 10:39 [...] Santana M.D., Ph.D. LAB BLOOD AD D-ON [facility] 200 [place] [address], [facility] DTL [facility] 200 [place] [address] documented in this encounter Visit Diagnoses Diagnosis Atrial Fibrillation Longstanding Persistent (HCC) documented in this encounter Additional Health Concerns Infection Onset Date Last Indicated Resolved Time Protective Environment 09/20/2022 09/20/2022 Assessment Noted Time PHQ-9 Depression Total Score: 6 07/17/19 20 10:26 AM HAY RAKE OPERATOR documented as of this encounter Care Teams Cardroom Hand Relationship Specialty Start Date End Date Elsewhere, Pcp PCP - General Merchandise Handler 06/27/19 documented as of this encounter
--- OUTSIDE RECORDS SUMMARY | 2024-02-23 18:07 | XMS_ITS | Encounter Summary ---
Author Organization [facility] Address [address] [place] [address] Care Team Providers Care Blasting Machine Operator Name Role Phone Elsewhere, Pcp Primary Care Provider Unavailabl e Reason for Visit * Reason Comments Med Refill Encounter Details Date Type Department Care Team (Late st Contact Info) Description 12/22/2023 Refill Department of Cardiovascular Medicine in [place], [place] [address] [place] [address] Flo Nazario M.D. [address] [place] [address] Med Refill Social History Tobacco Use Types [...] week 06/30/2021 How often do you attend anabaptism or hindu serv ices? Never 06/30/2021 Do you belong to any clubs o r organizations such as anabaptism groups, unions, fraternal or athletic groups, or [...] and heating? Not hard at all 06/30/2021 [facility] of Occupat ional Health - Occupational [...] Sex Assigned at Male 06/30/2021 12:19 PM CREMATORIUM OPERATOR Gender Identity Male 06/30/2021 12:19 PM CREMATORIUM OPERATOR Sexual Orientation Straight 06/30/2021 12 :19 PM CREMATORIUM OPERATOR documented as of this encounter Plan of Treatment Upcoming Encounters Date Type Department Care Team (Latest Contact Info) Description 03/07/2024 1:00 PM CDT Clinical Communication Virtual Review in [place], [place] 200 [place] [address] 03/13/2024 8:15 AM CDT Appointment Department of Radiology, [facility], in [address] [phone] Marilu Castaneda P.A.-C., M.S. [address] [place] [phone] 03/13/2024 8:40 AM CDT Appointment Department of Laboratory Medicine and Pathology, [facility] in [place], [place] [address] [place] [address] Loraine Thakkar M.D. [address] [place] [phone] 03/13/2024 10:00 AM CDT Comprehensive Visit Department of Cardiovascular Medicine in [place], [place] [address] [place] [address] Loraine Thakkar M.D. [address] [place] [phone] 03/26/2024 12:15 PM CDT Appointment Department of Radiology, [facility] in [place], [place] [address] [place] [address] Birdie Hurtado M.D. [address] [place] [phone] documented as of this encounter Visit Diagnoses Not on filedocumented in this encounter Additional Health Concerns Infection Onset Date Last Indicated Resolved Time Protective Environment 09/20/2022 09/20/2022 Assessment Noted Time PHQ-9 Depression Total Score: 6 07/17/19 20 10:26 AM CREMATORIUM OPERATOR documented as of this encounter Care Teams Blasting Machine Operator Relationship Specialty Start Date End Date Elsewhere, Pcp PCP - General Drawing In Machine Tender Helper 06/27/19 documented as of this encounter
--- OUTSIDE RECORDS SUMMARY | 2024-02-23 18:07 | XMS_ITS | Encounter Summary ---
Author Organization [facility] Address [address] [place] [address] Care Team Providers Care Repack Room Worker Name Role Phone Elsewhere, Pcp Primary Care Provider Unavailabl e Reason for Visit * Reason Onset Date Comments Pre-visit Intake 01/10/2024 Encounter Details Date Type Department Care Team (Latest Contact Info) Description 01/10/2024 7:45 AM CDT Clinical Communication Virtual Review in [place], [place] 200 [place] [address] Pre-visit Intake Social History Tobacco Use Types Packs/Day Years [...] week 06/30/2021 How often do you attend alevism or confucianism serv ices? Never 06/30/2021 Do you belong to any clubs o r organizations such as alevism groups, unions, fraternal or athletic groups, or [...] Not hard at all 06/30/2021 [facility] - [facility] Questionnaire Answer [...] place to sleep or slept in a retirement (including now)? No 06/30/2021 Depression Answer Date [...] Sex Assigned at Male 06/30/2021 12:19 PM BLADDER BLOWER Gender Identity Male 06/30/2021 12:19 PM BLADDER BLOWER Sexual Orientation Straight 06/30/2021 12 :19 PM BLADDER BLOWER documented as of this encounter Plan of Treatment Upcoming Encounters Date Type Department Care Team (Latest Contact Info) Description 03/07/2024 1:00 PM CDT Clinical Communication Virtual Review in [place], [place] 200 [place] [address] 03/13/2024 8:15 AM CDT Appointment Department of Radiology, [facility] in [place], [place] [address] [place] [phone] Marilu Castaneda P.A.-C., M.S. [address] [place] [phone] 03/13/2024 8:40 AM CDT Appointment Department of Laboratory Medicine and Pathology, [facility], in [place], [place] [address] [place] [phone] Loraine Thakkar M.D. [address] [place] [address] 03/13/2024 10:00 AM CDT Comprehensive Visit Department of Cardiovascular Medicine in [place], [place] [address] [place] [address] Loraine Thakkar M.D. [address] [place] [address] 03/26/2024 12:15 PM CDT Appointment Department of Radiology, [facility], in [place], [place] [address] [place] [address] Birdie Hurtado M.D. [address] [place] [phone] documented as of this encounter Visit Diagnoses Not on filedocumented in this encounter Additional Health Concerns Infection Onset Date Last Indicated Resolved Time Protective Environment 09/20/2022 09/20/2022 Assessment Noted Time PHQ-9 Depression Total Score: 6 07/17/19 20 10:26 AM BLADDER BLOWER documented as of this encounter Care Teams Repack Room Worker Relationship Specialty Start Date End Date Elsewhere, Pcp PCP - General Allergy Physician 06/27/19 documented as of this encounter
--- OUTSIDE RECORDS SUMMARY | 2024-02-23 18:07 | XMS_ITS | Encounter Summary ---
Author Organization [facility] Address [address] [place] [address] Care Team Providers Care Prepress Supervisor Name Role Phone Elsewhere, Pcp Primary Care Provider Unavailabl e Encounter Details Date Type Department Care Team (Latest Contact Info) Description 11/09/2023 Clinical Communication Department of Cardiovascular Medicine in [place], [place] [address] [place] [address] Financial Systems AdministratorZelalem M.D. Social History Tobacco Use Types Packs/Day [...] week 06/30/2021 How often do you attend amish or shinto serv ices? Never 06/30/2021 Do you belong to any clubs o r organizations such as amish groups, unions, fraternal or athletic groups, or [...] Sex Assigned at Male 06/30/2021 12:19 PM RESEARCH INSTRUMENTATION TECHNICIAN Gender Identity Male 06/30/2021 12:19 PM RESEARCH INSTRUMENTATION TECHNICIAN Sexual Orientation Straight 06/30/2021 12 :19 PM RESEARCH INSTRUMENTATION TECHNICIAN documented as of this encounter Plan of Treatment Upcoming Encounters Date Type Department Care Team (Latest Contact Info) Description 03/07/2024 1:00 PM CDT Clinical Communication Virtual Review in [place], [place] 200 [place] [address] 03/13/2024 8:15 AM CDT Appointment Department of Radiology, [facility] in [place], [place] [address] [place] [phone] Marilu Castaneda P.A.-C., M.S. [address] [place] [phone] 03/13/2024 8:40 AM CDT Appointment Department of Laboratory Medicine and Pathology, [facility] in [place], [place] [address] [place] [phone] Loraine Thakkar M.D. [address] [place] [phone] 03/13/2024 10:00 AM CDT Comprehensive Visit Department of Cardiovascular Medicine in [place], [place] [address] [place] [address] Loraine Thakkar M.D. [address] [place] [address] 03/26/2024 12:15 PM CDT Appointment Department of Radiology, [facility] in [place], [place] [address] [place] [address] Birdie Hurtado M.D. [address] [place] [phone] documented as of this encounter Visit Diagnoses Not on filedocumented in this encounter Additional Health Concerns Infection Onset Date Last Indicated Resolved Time Protective Environment 09/20/2022 09/20/2022 Assessment Noted Time PHQ-9 Depression Total Score: 6 07/17/19 20 10:26 AM RESEARCH INSTRUMENTATION TECHNICIAN documented as of this encounter Care Teams Prepress Supervisor Relationship Specialty Start Date End Date Elsewhere, Pcp PCP - General Extrusion Manager 06/27/19 documented as of this encounter
--- OUTSIDE RECORDS SUMMARY | 2024-02-23 18:07 | XMS_ITS | Encounter Summary ---
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 [address] [place] [address] [facility] Referral ID Status Reason Start Date Expiration Date V isits Requested Visits Authorized [id number] Authorized 11/17/2023 05/18/2025 1 1 Encounter Details Date Type Department Care Team (Late st Contact Info) Description 11/17/2023 Orders Only Department of Oncology in [place], [place] [address] [place] [address] Birdie Hurtado M.D. [address] [place] [address] Malignant Neoplasm Of Disseminated (HCC) [...] week 06/30/2021 How often do you attend advent or pentecostalism serv ices? Never 06/30/2021 Do you belong to any clubs o r organizations such as advent groups, unions, fraternal or athletic groups, or [...] and heating? Not hard at all 06/30/2021 [facility] of Occupat ional Health - Occupational Stress [...] Sex Assigned at Male 06/30/2021 12:19 PM SILK TOP HAT BODY MAKER Gender Identity Male 06/30/2021 12:19 PM SILK TOP HAT BODY MAKER Sexual Orientation Straight 06/30/2021 12 :19 PM SILK TOP HAT BODY MAKER documented as of this encounter Plan of Treatment Upcoming Encounters Date Type Department Care Team (Latest Contact Info) Description 03/07/2024 1:00 PM CDT Clinical Communication Virtual Review in [place], [place] 200 [place] [address] 03/13/2024 8:15 AM CDT Appointment Department of Radiology, [facility] in [place], [place] [address] [place] [phone] Marilu Castaneda P.A.-C., M.S. [address] [place] [phone] 03/13/2024 8:40 AM CDT Appointment Department of Laboratory Medicine and Pathology, [facility] in [place], [place] [address] [place] [phone] Loraine Thakkar M.D. [address] [place] [phone] 03/13/2024 10:00 AM CDT Comprehensive Visit Department of Cardiovascular Medicine in [address] [phone] Loraine Thakkar M.D. [address] [place] [phone] 03/26/2024 12:15 PM CDT Appointment Department of Radiology, [facility] in [place], [place] [address] [place] [phone] Birdie Hurtado M.D. [address] [place] [phone] Scheduled Referrals Name Type Priority Associated Diagnoses [...] in the right lower lobe (for example 70). Previously new nodular opacity in right middle lobe has decreased in size and density (). However, there are multiple new or enlarging nodular opacities. For example, a new 7 mm nodule in right lower lobe (/78). 15 x 10 mm nodule in right lower lobe (/76) has increased from 10 x 7 mm in the previous CT. New small right pleural effusion with atelectasis. No pneumothorax. Interval worsening lymphadenopathy. For example, subcarinal lymph node (/52) measures 34 mm compared to 32 mm [...] 11 mm. 11 mm left supraclavicular lymphnode (/13) is unchanged. Visualized thyroid gland is normal. [...] effusion. Birdie Hurtado M.D. IMG CT PROCEDURES documented [...] Total Score: 6 07/17/19 20 10:26 AM SILK TOP HAT BODY MAKER documented as of this encounter Care Teams Supervisor Accounting Clerks Relationship Specialty Start Date End Date Elsewhere, Pcp PCP - General Od Grinder Operator 06/27/19 documented as of this encounter
--- OUTSIDE RECORDS SUMMARY | 2024-02-23 18:07 | XMS_ITS | Encounter Summary ---
Author Organization [facility] Address [address] [place] [id number] Care Team Providers Care Fluorescent Lamp Replacer Name Role Phone Elsewhere, Pcp Primary Care Provider Unavailabl e Reason for Referral * Outpatient (Routine) - Authorized Specialty Diagnoses / Procedures Referred By Contac t Referred To Contact Diagnoses Atrial Fibrillation Longstanding Persistent (HCC) Procedures ECG Heart rhythm monitor (Holter) Ron Santana M.D., Ph.D. [address] [place] [phone] [facility] Referral ID Status Reason Start Date Expiration Date V isits Requested Visits Authorized [id number] Authorized 11/09/2023 11/08/2024 1 1 Reason for Visit * Outpatient (Routine) - Authorized Specialty Diagnoses / Procedures Referred By Emirac t Referred To Contact Diagnoses Atrial Fibrillation Longstanding Persistent (HCC) Procedures ECG Heart rhythm monitor (Holter) Ron Santana M.D., Ph.D. 200 [place] [phone] [facility] Referral ID Status Reason Start Date Expiration Date V isits Requested Visits Authorized [id number] Authorized 11/09/2023 11/08/2024 1 1 Encounter Details Date Type Department Care Team (Latest Contact Info) Description 01/12/2024 9:43 AM CDT - 01/12/2024 10:14 AM CDT Hospital Encounter Department of Cardiovascular Diseases in [place], [place] [address] [place] [phone] Ron Santana M.D., Ph.D. [address] [place] [phone] Atrial Fibrillation Longstanding Persistent (HCC) Discharge Disposition: Home or Self Care Social History Tobacco Use Types Packs/Day Years Used Date Smoking Tobacco: Never Smokeless Tobacco: Never Alcohol Use Standard Drinks/Week Comments Never 0 (1 standard drink = 0.6 oz pur e alcohol) [facility] Utilities Answer Date Recorded In the past 12 months has e [employer], gas, oil, or water [employer] threatened to shut off services in your [...] How often do you attend sabianist or druze serv ices? Never 06/30/2021 Do you belong [...] and heating? Not hard at all 06/30/2021 [facility] - Occupational Stress Questionnaire Answer [...] Sex Assigned at Male 06/30/2021 12:19 PM TARGETING ACQUISITION OFFICER Gender Identity Male 06/30/2021 12:19 PM TARGETING ACQUISITION OFFICER Sexual Orientation Straight 06/30/2021 12 :19 PM TARGETING ACQUISITION OFFICER documented as of this encounter Medications [...] PM CDT Clinical Communication Virtual Review in [place], [place] 200 [place] [phone] 03/13/2024 8:15 AM CDT Appointment Department of Radiology, [facility] in [place], [place] [address] [place] [phone] Marilu Castaneda P.A.-C., M.S. [address] [place] [phone] 03/13/2024 8:40 AM CDT Appointment Department of Laboratory Medicine and Pathology, [facility] in [place], [place] [address] [place] [phone] Loraine Thakkar M.D. [address] [place] [phone] 03/13/2024 10:00 AM CDT Comprehensive Visit Department of Cardiovascular Medicine in [place], [place] [address] [place] [phone] Loraine Thakkar M.D. [address] [place] [phone] 03/26/2024 12:15 PM CDT Appointment Department of Radiology, [facility] in [place], [place] [address] [place] [phone] Birdie Hurtado M.D. [address] [place] [phone] documented as of this encounter Procedures Procedure Name Priority Date/Time Associated Diagnosis Comments HOLTER MONITOR - IN CLINIC READING ASSISTANT Routine 01/13/2024 10:15 AM CDT Atrial Fibrillation Longstanding Persistent (HCC) documented in this encounter Results * HOLTER MONITOR - IN CLINIC READING ASSISTANT (01/13/2024 10:15 AM CDT) Min Heart [...] Duration 0 duration INFOBION IC MOME AF [place] 0 percent INFOBIONIC MOME Symptom Count 0 count INFOBI ONIC MOME 01/12/2024 9:55 AM CDT Narrative INFOBIONIC MOME - 01/14/2024 9:21 AM CDT [place] 1. The basic rhythm was sinus. The [...] 1%. 4. No symptomatic events were noted. Roller Operator: DEB Espinoza/ DEB Irvin Procedure Note Luis Felipe Trevizo M.D. - 01/14/2024 [place] 1. The basic rhythm was sinus. The [...] 1%. 4. No symptomatic events were noted. Roller Operator: DEB Espinoza/ DEB Irvin Ron Santana M.D., Ph.D. CV CARDIAC S ERVICES PROCEDURES INFOBIONIC KATHERINE MARTINS documented in this encounter Visit Diagnoses Diagnosis Atrial Fibrillation Longstanding Persistent (HCC) documented in this encounter Additional Health Concerns Infection Onset Date Last Indicated Resolved Time Protective Environment 09/20/2022 09/20/2022 Assessment Noted Time PHQ-9 Depression Total Score: 6 07/17/19 20 10:26 AM TARGETING ACQUISITION OFFICER documented as of this encounter Care Teams Fluorescent Lamp Replacer Relationship Specialty Start Date End Date Elsewhere, Pcp PCP - General Tumbler Plater 06/27/19 documented as of this encounter
[2024-02-23 18:28] LABS: Lactate Sepsis w/Reflex* 0.7 mmol/L (0.5-1.9)
[2024-02-23 18:31] LABS: Basophils Percent Auto 0.2 % (0.0-3.0); Eosinophils Percent Auto 0.6 % (0.0-7.0); Hematocrit 32.4 % (37.0-53.0); Immature Granulocytes Pct Auto 0.2 %; Lymphocytes Percent Auto 46.8 % (20-44); Mean Corpuscular HGB Conc 31 gm/dL (32-36); Mean Corpuscular Hemoglobin 31 pg (26-34); Mean Corpuscular Volume 100 fL (80-100); Monocytes Percent Auto 7.4 % (0.0-11.0); Neutrophils Percent Auto 44.8 % (42.0-72.0); Platelet Count* 277 K/uL (140-440); RDW Coefficient of Variation % 13.4 % (11.5-15.5); Red Blood Count 3.24 m/uL (4.30-5.90); White Blood Count* 19.17 K/uL (4.50-11.00)
[2024-02-23 18:48] LABS: Appearance Urine Clear (Clear); Bilirubin Urine Negative (Negative); Blood Urine Trace-lysed (Negative); Color Urine Yellow (Yellow); Glucose Urine Negative (Negative); Ketones Urine Trace (Negative); Leukocyte Esterase Urine Negative (Negative); Nitrite Urine Negative (Negative); Protein Urine Negative (Negative); Specific Gravity Urine 1.015 (1.000-1.030)
[2024-02-23 19:09] LABS: Slide Review Reflex No
[2024-02-23 19:11] LABS: Chloride* 98 mmol/L (96-114); Potassium* 4.3 mmol/L (3.6-5.1); Sodium* 128 mmol/L (135-149)
[2024-02-23 19:13] LABS: Creatinine* 1.1 mg/dL (0.5-1.5); Est. Creatinine Clearance* 57.15; Estimated Glomerular Filt Rate 69 ml/min
[2024-02-23 19:14] LABS: Anion Gap 8 mEq/L (7-15); Blood Urea Nitrogen* 14 mg/dL (7-30); Carbon Dioxide* 22 mmol/L (20-32); Glucose* 99 mg/dL (60-115); PCR FLU A Negative PCR FLU A (Negative); PCR FLU B Negative PCR FLU B (Negative); PCR RSV Negative PCR RSV (Negative); SARS PCR* Negative SARS-CoV-2 (Negative)
[2024-02-23 19:15] LABS: Calcium* 8.4 mg/dL (8.4-10.6)
[2024-02-23 19:17] LABS: C Reactive Protein* 2.4 mg/dL (0.5-1.0)
[2024-02-23 19:31] LABS: Procalcitonin* 0.06 ng/mL (<0.50)
[2024-02-23 19:32] LABS: Bacteria Urine Few; RBC Urine 0-2 (0-2); WBC Urine 0-2 (0-5)
--- NOTE | 2024-02-23 20:07 | ED.GENADULT ---
HPI - General Adult General Chief complaint: Fever Stated complaint: Covid vx [id number]. Has Leukemia Time Seen by Provider: 02/23/24 17:41 Source: patient Mode of arrival: ambulatory Limitations: no limitations History of Present Illness HPI narrative: Patient is a 78-year-old male with a history of underlying CLL, is on management with Keytruda which he had last week. He says he generally tolerates this well. No known neutropenia. He had a COVID shot yesterday, he has tended to tolerate these well as well. Today however he woke up feeling kind of fevers, checked his temperature and it was 101. He says it got as high as 103.8 at home, but also notes that he checked his thermometer against ours when he got here in his was about in degree higher than ours. He has been taking Tylenol today. He has not developed any other symptoms, specifically denies headache, sore throat, congestion, cough, difficulty breathing, abdominal pain back pain, urinary symptoms, rashes, vomiting, diarrhea, lower extremity swelling or pain. He decided to come in and get checked out because he has been told in the past with his cancer diagnosis any fevers should probably be evaluated. He does not smoke or drink. Here with his . Chronically anticoagulated with Xarelto. Related Data Home Medications ?Medication ?Instructions ?Recorded ?Confirmed rivaroxaban 20 mg tablet (Xarelto) 20 mg PO Q24H 12/07/21 02/16/24 alprazolam 0.25 mg tablet 0.25 mg PO DAILY PRN 12/16/21 02/16/24 famotidine 20 mg tablet (Pepcid) 20 mg PO DAILY 12/16/21 02/16/24 magnesium chloride 71.5 mg 71.5 mg PO QDAY 02/15/22 02/16/24 (magnesium chloride) tablet,delayed release (Slow-Mag) tamsulosin 0.4 mg capsule (Flomax) 0.4 mg PO QDAY 02/15/22 02/16/24 amiodarone 100 mg tablet 100 mg PO QDAY 11/11/22 02/16/24 metoprolol tartrate 25 mg tablet 25 mg PO BID 11/11/22 02/16/24 lisinopril 10 mg tablet 15 mg PO BID 03/03/23 02/16/24 calcium carbonate (Tums) 300 mg PO BID PRN 03/31/23 02/16/24 ferrous sulfate 324 mg (65 mg 972 mg PO QDAY 03/31/23 02/16/24 iron) tablet,delayed release atorvastatin 20 mg tablet 20 mg PO QDAY 11/17/23 02/16/24 furosemide 20 mg tablet 20 mg PO DAILY PRN 01/25/24 02/16/24 Previous Rx's ?Medication ?Instructions ?Recorded acalabrutinib maleate 100 mg 100 mg PO Q12H #60 tabs 10/27/23 tablet (Calquence (acalabrutinib maleate)) levothyroxine 100 mcg tablet 100 mcg PO QDAY Hypothyroid #30 12/29/23 tabs Allergies Allergy/AdvReac Type Severity Reaction Status Date / Time ibrutinib [From Imbruvica] Allergy Intermediate Rash Verified 02/16/24 09:21 Penicillins Allergy Verified 02/16/24 09:21 Review of Systems Status of ROS: Reports: 10 or more systems reviewed and unremarkable except as noted in History and below [facility] Medical History Hypothyroid ?E03.9 - Hypothyroidism, unspecified (ICD-10) Right leg swelling ?M79.89 - Other specified soft tissue disorders (ICD-10) 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 - Malignant neoplasm of major salivary gland, unspecified (ICD-10) Anemia ?D64.9 - Anemia, unspecified (ICD-10) GERD (gastroesophageal reflux disease) ?K21.9 - Gastro-esophageal reflux disease without esophagitis (ICD-10) CAD (coronary artery disease) ?I25.10 - Atherosclerotic heart disease of [place] coronary artery without angina pectoris (ICD-10) Pulmonary nodules ?R91.8 - Other nonspecific abnormal finding of lung field (ICD-10) History of cardioversion ?Z98.890 - Other specified postprocedural states (ICD-10) CLL (chronic lymphocytic leukemia) (~08/2018) ?C91.10 - Chronic lymphocytic leukemia of B-cell type not having achieved remission (ICD-10) Malignant melanoma ?C43.9 - Malignant melanoma of skin, unspecified (ICD-10) Anxiety ?F41.9 - Anxiety disorder, unspecified (ICD-10) BPH with obstruction/lower urinary tract symptoms ?N40.1 - Benign prostatic hyperplasia with lower urinary tract symptoms (ICD-10) ?N13.8 - Other obstructive and reflux uropathy (ICD-10) Prostate cancer ?C61 - Malignant neoplasm of prostate (ICD-10) Hypertension ?I10 - Essential (primary) hypertension (ICD-10) Paroxysmal atrial fibrillation ?I48.0 - Paroxysmal atrial fibrillation (ICD-10) Surgical History S/P mitral valve clip implantation (~2019) ?Z98.890 - Other specified postprocedural states (ICD-10) ?Z95.818 - Presence of other cardiac implants and grafts (ICD-10) History of tonsillectomy ?Z90.89 - Acquired absence of other organs (ICD-10) History of melanoma excision ?Z98.890 - Other specified postprocedural states (ICD-10) ?Z85.820 - Personal history of malignant melanoma of skin (ICD-10) History of cataract surgery ?Z98.49 - Cataract extraction status, unspecified eye (ICD-10) Hx of mitral valve repair ?Z98.890 - Other specified postprocedural states (ICD-10) Family History Other CHF (congestive heart failure) Hodgkins disease Social History Narrative: he is and here with his . He gets oncology care through [facility]. He gets primary care through Dr. Brian Coronado. He does not smoke. He drinks 1 glass of red wine daily. Smoking Status: Never smoker Do you use any of these nicotine containing products: None Second hand tobacco smoke exposure: No How often do you have a drink containing alcohol: never How often do you have six or more drinks on one occasion: Never AUDIT-C Alcohol total score: 0 Non-prescribed substance use: denies use service: No Exam Narrative: Exam Narrative: Vital signs as noted above. In general, an alert, well-appearing patient. Head: Normocephalic, atraumatic. Eyes: Pupils are equal reactive. Extraocular movements are full. Conjunctivae are normal. ENT: Mucous membranes are moist. Throat is normal. Neck: Supple without lymphadenopathy. Heart: Regular rate and rhythm. No murmur or rub. Lungs: Clear bilaterally. No increased work of breathing, crackles or wheezes. Abdomen: Soft and nontender. No organomegaly. Extremities: Well perfused. No edema. No calf tenderness. Pulses intact. Neurologic: Patient is alert and oriented to person and place. Speech is fluent. Face is symmetric. Moves all extremities equally. Affect: Normal. Skin: Warm and dry. Well perfused. Const: Vital Signs, click to edit/add: Vital Signs - 24 hr 02/23/24 16:38 Temperature 101.1 F H Pulse Rate [Right Pulse Oximeter] 83 Respiratory Rate 16 Blood Pressure [Ri ght Upper Arm] 158/71 H Pulse Oximetry 94 Oxygen Delivery Me thod Room Air Documenting provider has reviewed patient's vital signs: yes Course Course ED Course: Patient is well-appearing without overt symptoms at this time. Does present with a temperature of a 101.5?, Tylenol taken a couple of hours ago. His white blood cell count is 19.2 which is at his baseline, hemoglobin is 10 which is also at his baseline. Predominance of lymphocytes. Metabolic panel shows a sodium of 128 to, CO2 of 22, BUN of 14, creatinine 1.1. Blood sugar 99, lactate 0.7. Procalcitonin is 0.06 and CRP is very minimally elevated at 2 324. Urinalysis is negative, no ketones, new 0-2 red cells and 0-2 white cells. COVID, influenza and RSV are negative. I have reviewed all this with him. I do not have any symptoms at this time 2.2 a specific source of infection. Discussed with him that fever may be simply response to his vaccination yesterday, may represent a viral infection, or may represent an as yet undiagnosed bacterial infection. In the absence of symptoms and with normal labs, and in the absence of neutropenia, I recommend observation at this time. We discussed reasons that he should return to the emergency department such as development of more focal symptoms, shaking chills, vomiting, excessive weakness cetera. Otherwise, if fever persists more than 3 days, would have him follow up with primary care for re-evaluation. Continue Tylenol as needed, maintain hydration. Is comfortable with that plan. Vital Signs Vital signs: Initial Vital Signs Temperature 101.1 F H 02/23/24 16:38 Temperature Source Oral 02/23/24 16:38 Pulse Rate 83 02/23/24 16:38 Pulse Rhythm Regular 02/23/24 16:38 Pulse Strength 3+ Normal 02/23/24 16:38 Respiratory Rate 16 02/23/24 16:38 Blood Pressure 158/71 H 02/23/24 16:38 Blood Pressure Mean 100 02/23/24 16:38 Blood Pressure Position Sitting 02/23/24 16:38 Pulse Oximetry 94 02/23/24 16:38 Oxygen Delivery Method Room Air 02/23/24 16:38 Vital Signs Temperature 101.1 F H 02/23/24 16:38 Pulse Rate 83 02/23/24 16:38 Respiratory Rate 16 02/23/24 16:38 Blood Pressure 158/71 H 02/23/24 16:38 Pulse Oximetry 94 02/23/24 16:38 Oxygen Delivery Method Room Air 02/23/24 16:38 Temperature 101.1 F H 02/23/24 16:38 Pulse Rate 83 02/23/24 16:38 Respiratory Rate 16 02/23/24 16:38 Blood Pressure 158/71 H 02/23/24 16:38 Pulse Oximetry 94 02/23/24 16:38 Oxygen Delivery Method Room Air 02/23/24 16:38 Medical Decision Making Lab Data Labs: Lab Results 02/23/24 02/23/24 Range/Units 18:23 18:41 WBC 19.17 H (4.50-11.00) K/uL RBC 3.24 L (4.30-5.90) m/uL Hgb 10.0 L (13.5-17.5) gm/dL Hct 32.4 L (37.0-53.0) % MCV 100 (80-100) fL MCH 31 (26-34) pg MCHC 31 L (32-36) gm/dL RDW Coeff of Ekta 13.4 (11.5-15.5) % Plt Count 277 (140-440) K/uL Neut % (Auto) 44.8 (42.0-72.0) % Lymph % (Auto) 46.8 H (20-44) % [place] % (Auto) 7.4 (0.0-11.0) % Eos % (Auto) 0.6 (0.0-7.0) % Baso % (Auto) 0.2 (0.0-3.0) % Neut # (Auto) 8.60 H (1.7-7.0) K/uL Lymph # (Auto) 9.00 H (0.90-2.90) K/uL [place] # (Auto) 1.40 H (0.00-0.90) K/UL Eos # (Auto) 0.10 (0.00-0.50) K/uL Baso # (Auto) 0.00 (0.00-0.30) K/uL Abs Immat Gran (auto) 0.00 (0.00-0.30) K/uL Imm/Tot Granulo (auto) 0.2 % Sodium 128 L (135-149) mmol/L Potassium 4.3 (3.6-5.1) mmol/L Chloride 98 (96-114) mmol/L Carbon Dioxide 22 (20-32) mmol/L Anion Gap 8 (7-15) mEq/L BUN 14 (7-30) mg/dL Creatinine 1.1 (0.5-1.5) mg/dL Estimated Creat Clear 57.15 Estimated GFR 69 ml/min Glucose 99 (60-115) mg/dL Lactate 0.7 (0.5-1.9) mmol/L Calcium 8.4 (8.4-10.6) mg/dL C-Reactive Protein 2.4 H (0.5-1.0) mg/dL Procalcitonin 0.06 (<0.50) ng/mL Urine Color Yellow (Yellow) Urine Appearance Clear (Clear) Urine pH 7.0 (5.0-8.5) Ur Specific [place] 1.015 (1.000-1.030) Urine Protein Negative (Negative) Urine Glucose (UA) Negative (Negative) Urine Ketones Trace A (Negative) Urine Blood Trace-lysed A (Negative) Urine Nitrite Negative (Negative) Urine Bilirubin Negative (Negative) Urine Urobilinogen 1.0 (0.2-1.0) Ur Leukocyte Esterase Negative (Negative) Urine RBC 0-2 (0-2) Urine WBC 0-2 (0-5) Ur Squamous Epith Cells None (None-Few) Urine Bacteria Few A (None) SARS-CoV-2 (PCR) Negative SARS-CoV-2 (Negative) Influenza Type A (PCR) Negative PCR FLU A (Negative) Influenza Type B (PCR) Negative PCR FLU B (Negative) RSV (PCR) Negative PCR RSV (Negative) Discharge Plan Discharge Clinical Impression: Fever Patient Disposition: Home, Self-Care Condition: Stable Instructions: Fever in Adults (ED) Additional Instructions: Continue Tylenol, 1000 mg 3 times daily as needed for fever. It is possible that fevers related to your vaccination yesterday. Workup today does not show any concerning abnormalities. If fever persists beyond a few days, you should be seen again for recheck. Return any time for acute worsening or new symptoms such as significant cough, vomiting, unusual rashes etcetera. Prescriptions: No Action Slow-Mag 71.5 mg tablet,delayed release (DR/EC) 71.5 mg PO QDAY tamsulosin [Flomax] 0.4 mg capsule 0.4 mg PO QDAY amiodarone 100 mg tablet 100 mg PO QDAY Patient Comments: dose started at 400mg/day X 14 days currently on 200mg X 28 days then will take 100mg/day metoprolol tartrate 25 mg tablet 25 mg PO BID calcium carbonate [Tums] 300 mg (750 mg) tablet,chewable 300 mg PO BID PRN ferrous sulfate 324 mg (65 mg iron) tablet,delayed release (DR/EC) 972 mg PO QDAY Calquence (acalabrutinib mal) 100 mg tablet 100 mg PO Q12H Qty: 60 11RF alprazolam 0.25 mg tablet 0.25 mg PO DAILY PRN famotidine [Pepcid] 20 mg tablet 20 mg PO DAILY Xarelto 20 mg tablet 20 mg PO Q24H lisinopril 10 mg tablet 15 mg PO BID atorvastatin 20 mg tablet 20 mg PO QDAY furosemide 20 mg tablet 20 mg PO DAILY PRN Rx Instructions: as directed by PA in building construction ironworker (Benigno) levothyroxine 100 mcg tablet 100 mcg PO QDAY Qty: 30 6RF Follow Up/Referrals: GLENNA THOMAS DO [Primary Care Provider] - Stand Alone [facility]
== END 2024-02-23 20:01 | disposition home or self-care (01) ==
PROVIDERS: Emergency Provider Emergency Medicine; PCP Student in an Organized Health Care Education/Training Program
DX: R50.9 Fever, unspecified (principal)
CPT/HCPCS: 36415; 80048; 81001; 83605; 84145; 85025; 86140; 87040; 87086; 87631; 99283; 99284

== ENCOUNTER 2024-03-08 09:00 | Outpatient (RCR) | payer MEDICARE, BC, SELFPAY ==
[2023-09-15 08:59] LABS: Basophils Percent Auto 0.2 % (0.0-3.0); Hematocrit 33.9 % (37.0-53.0); Hemoglobin* 10.8 gm/dL (13.5-17.5); Immature Granulocytes Pct Auto 0.2 %; Lymphocytes Percent Auto 20.7 % (20-44); Mean Corpuscular HGB Conc 32 gm/dL (32-36); Mean Corpuscular Hemoglobin 30 pg (26-34); Mean Corpuscular Volume 96 fL (80-100); Monocytes Percent Auto 9.3 % (0.0-11.0); Neutrophils Percent Auto 67.6 % (42.0-72.0); Platelet Count* 288 K/uL (140-440); RDW Coefficient of Variation % 13.5 % (11.5-15.5); Red Blood Count 3.55 m/uL (4.30-5.90); White Blood Count* 11.08 K/uL (4.50-11.00)
[2023-09-15 09:01] LABS: Slide Review Reflex No
[2023-09-15 09:11] LABS: Albumin* 3.8 g/dL (3.3-5.0)
[2023-09-15 09:12] LABS: Chloride* 100 mmol/L (96-114); Sodium* 133 mmol/L (135-149)
[2023-09-15 09:14] LABS: Anion Gap 6 mEq/L (7-15); Aspartate Amino Transferase* 24 U/L (12-35); Bilirubin Total* 2.3 mg/dL (0.1-1.5); Carbon Dioxide* 27 mmol/L (20-32); Estimated Glomerular Filt Rate 77 ml/min
[2023-09-15 09:15] LABS: Alanine Aminotransferase* 14 U/L (4-50); Alkaline Phosphatase* 86 U/L (40-150); Blood Urea Nitrogen* 11 mg/dL (7-30); Calcium* 8.9 mg/dL (8.4-10.6); Glucose* 117 mg/dL (60-115)
[2023-09-15] MEDS: PEMBROLIZUMAB 200 MG, TUBING PRIMARY 1 EACH, In-line 0.2 micron filter set 1 EACH in 0.... 216 MG IVPB (10:43)
[2023-09-15] MEDS: 0.9 % SODIUM CHLORIDE 250 ml IV (10:58)
[2023-09-15] MEDS: SODIUM CHLORIDE 0.9 % (FLUSH) 10 ML SYRINGE IVF (10:59)
--- NOTE | 2023-09-15 12:03 | ONC.NURNOTE ---
Dr. Hurtado aware of TSH and BILI . Ok to treat today. pt on synthroid and states will follow up with .
[2023-10-06 09:11] LABS: Basophils Percent Auto 0.2 % (0.0-3.0); Eosinophils Percent Auto 1.5 % (0.0-7.0); Hematocrit 34.5 % (37.0-53.0); Hemoglobin* 10.7 gm/dL (13.5-17.5); Immature Granulocytes Pct Auto 0.3 %; Lymphocytes Percent Auto 42.7 % (20-44); Mean Corpuscular HGB Conc 31 gm/dL (32-36); Mean Corpuscular Hemoglobin 30 pg (26-34); Mean Corpuscular Volume 95 fL (80-100); Monocytes Percent Auto 4.6 % (0.0-11.0); Neutrophils Percent Auto 50.7 % (42.0-72.0); Platelet Count* 406 K/uL (140-440); Red Blood Count 3.62 m/uL (4.30-5.90); White Blood Count* 16.16 K/uL (4.50-11.00)
[2023-10-06 09:14] VITALS: BP 110/70; PULSE 74; RESP 16; TEMP 36.4; O2SAT 96
[2023-10-06 09:14] LABS: Slide Review Reflex Yes
[2023-10-06 09:24] LABS: Albumin* 3.8 g/dL (3.3-5.0); Chloride* 101 mmol/L (96-114); Potassium* 3.9 mmol/L (3.6-5.1); Sodium* 130 mmol/L (135-149)
[2023-10-06 09:26] LABS: Bilirubin Total* 1.4 mg/dL (0.1-1.5); Creatinine* 0.9 mg/dL (0.5-1.5); Est. Creatinine Clearance* 62.86; Estimated Glomerular Filt Rate 87 ml/min
[2023-10-06 09:27] LABS: Alanine Aminotransferase* 14 U/L (4-50); Alkaline Phosphatase* 80 U/L (40-150); Anion Gap 3 mEq/L (7-15); Aspartate Amino Transferase* 21 U/L (12-35); Blood Urea Nitrogen* 15 mg/dL (7-30); Calcium* 8.4 mg/dL (8.4-10.6); Carbon Dioxide* 26 mmol/L (20-32); Glucose* 126 mg/dL (60-115)
[2023-10-06 09:33] LABS: Slide Review Acceptable Review (Acceptable)
[2023-10-06] MEDS: PEMBROLIZUMAB 200 MG, TUBING PRIMARY 1 EACH, In-line 0.2 micron filter set 1 EACH in 0.... 216 MG IVPB (11:02)
[2023-10-06] MEDS: 0.9 % SODIUM CHLORIDE 250 ml IV (11:03)
[2023-10-06] MEDS: SODIUM CHLORIDE 0.9 % (FLUSH) 10 ML SYRINGE IVF (11:03)
[2023-10-27 09:43] LABS: Basophils Percent Auto 0.2 % (0.0-3.0); Eosinophils Percent Auto 1.6 % (0.0-7.0); Hematocrit 34.3 % (37.0-53.0); Hemoglobin* 10.6 gm/dL (13.5-17.5); Immature Granulocytes Pct Auto 0.4 %; Lymphocytes Percent Auto 43.9 % (20-44); Mean Corpuscular HGB Conc 31 gm/dL (32-36); Mean Corpuscular Hemoglobin 30 pg (26-34); Mean Corpuscular Volume 96 fL (80-100); Neutrophils Percent Auto 44.9 % (42.0-72.0); Platelet Count* 348 K/uL (140-440); RDW Coefficient of Variation % 14.3 % (11.5-15.5); Red Blood Count 3.57 m/uL (4.30-5.90); White Blood Count* 20.84 K/uL (4.50-11.00)
[2023-10-27 09:58] LABS: Albumin* 4.2 g/dL (3.3-5.0); Chloride* 103 mmol/L (96-114); Sodium* 134 mmol/L (135-149)
[2023-10-27 10:00] LABS: Anion Gap 7 mEq/L (7-15); Bilirubin Total* 2.4 mg/dL (0.1-1.5); Carbon Dioxide* 24 mmol/L (20-32); Est. Creatinine Clearance* 62.86; Estimated Glomerular Filt Rate 77 ml/min
[2023-10-27 10:01] LABS: Alanine Aminotransferase* 14 U/L (4-50); Alkaline Phosphatase* 94 U/L (40-150); Aspartate Amino Transferase* 27 U/L (12-35); Blood Urea Nitrogen* 13 mg/dL (7-30); Glucose* 126 mg/dL (60-115); Slide Review Reflex Yes; Total Protein* 6.5 g/dL (6.0-8.3)
[2023-10-27 10:02] LABS: Calcium* 8.7 mg/dL (8.4-10.6); Slide Review Acceptable Review (Acceptable)
[2023-10-27] MEDS: PEMBROLIZUMAB 200 MG, TUBING PRIMARY 1 EACH, In-line 0.2 micron filter set 1 EACH in 0.... 216 MG IVPB (11:52)
[2023-10-27] MEDS: 0.9 % SODIUM CHLORIDE 250 ml IV (11:53)
[2023-10-27] MEDS: SODIUM CHLORIDE 0.9 % (FLUSH) 10 ML SYRINGE IVF (11:53)
--- NOTE | 2023-11-07 09:25 | ONC.NURNOTE ---
Acalabrutinib dose increase side effect check up: reports no Afib, denies diarrhea, arthragras, or rash states he is feeling less fatigues, and more energetic since starting Acalabrutinib BID CT Scan this week lab and follow up next week
[2023-11-17 08:58] LABS: Basophils Percent Auto 0.2 % (0.0-3.0); Eosinophils Percent Auto 1.6 % (0.0-7.0); Hemoglobin* 8.8 gm/dL (13.5-17.5); Immature Granulocytes Pct Auto 0.3 %; Lymphocytes Percent Auto 57.7 % (20-44); Mean Corpuscular HGB Conc 30 gm/dL (32-36); Mean Corpuscular Hemoglobin 30 pg (26-34); Mean Corpuscular Volume 100 fL (80-100); Monocytes Percent Auto 6.3 % (0.0-11.0); Neutrophils Percent Auto 33.9 % (42.0-72.0); Platelet Count* 334 K/uL (140-440); RDW Coefficient of Variation % 14.9 % (11.5-15.5)
[2023-11-17 09:01] LABS: Slide Review Reflex No
[2023-11-17 09:17] LABS: Albumin* 3.8 g/dL (3.3-5.0); Chloride* 100 mmol/L (96-114); Potassium* 3.9 mmol/L (3.6-5.1); Sodium* 130 mmol/L (135-149)
[2023-11-17 09:19] LABS: Bilirubin Total* 2.3 mg/dL (0.1-1.5); Creatinine* 0.9 mg/dL (0.5-1.5); Est. Creatinine Clearance* 62.86; Estimated Glomerular Filt Rate 87 ml/min
[2023-11-17 09:20] LABS: Alanine Aminotransferase* 13 U/L (4-50); Alkaline Phosphatase* 79 U/L (40-150); Anion Gap 4 mEq/L (7-15); Aspartate Amino Transferase* 21 U/L (12-35); Blood Urea Nitrogen* 12 mg/dL (7-30); Calcium* 8.4 mg/dL (8.4-10.6); Carbon Dioxide* 26 mmol/L (20-32); Glucose* 126 mg/dL (60-115); Total Protein* 5.6 g/dL (6.0-8.3)
[2023-11-17] MEDS: PEMBROLIZUMAB 200 MG, TUBING PRIMARY 1 EACH, In-line 0.2 micron filter set 1 EACH in 0.... 216 MG IVPB (11:13)
[2023-11-17] MEDS: SODIUM CHLORIDE 0.9 % (FLUSH) 10 ML SYRINGE IVF (11:45)
--- NOTE | 2023-11-18 09:18 | ONC.NURNOTE ---
Video Visit appt set up with [facility] 949 arrival for a 1020 appt- per Dr Salazar time/date request this was called to [facility] and he understands that DR Hurtado will be off site
[2023-11-24 14:06] LABS: Basophils Percent Auto 0.2 % (0.0-3.0); Eosinophils Percent Auto 0.8 % (0.0-7.0); Hemoglobin* 9.6 gm/dL (13.5-17.5); Immature Granulocytes Pct Auto 0.2 %; Lymphocytes Percent Auto 56.7 % (20-44); Mean Corpuscular HGB Conc 31 gm/dL (32-36); Mean Corpuscular Hemoglobin 31 pg (26-34); Mean Corpuscular Volume 101 fL (80-100); Monocytes Percent Auto 3.9 % (0.0-11.0); Neutrophils Percent Auto 38.2 % (42.0-72.0); Platelet Count* 355 K/uL (140-440); RDW Coefficient of Variation % 14.3 % (11.5-15.5); Red Blood Count 3.07 m/uL (4.30-5.90)
[2023-11-24 14:35] LABS: White Blood Count* 26.02 K/uL (4.50-11.00)
[2023-11-24 14:36] LABS: Slide Review Reflex Yes
[2023-11-24 14:37] LABS: Slide Review Acceptable Review (Acceptable)
--- NOTE | 2023-11-24 16:05 | ONC.NURNOTE ---
Addendum entered by Purnima Espinal RN 11/24/23 16:25: Dr. Hurtado has an opening here in [place] at 2:30pm on 12/01/23, pt rescheduled to that date. Left message for pt with new date and time. Original Note: Pt here for PET scan and CBC. CBC results emailed to Dr. Hurtado for follow up. Pt received call from [employer] that video visit with Dr. Hurtado changed to 12/06/23 at 2:20pm. Appt made for pt to come into our clinic that day to assist with video visit. Pt to return in one week for CBC.
[2023-12-01 14:08] LABS: Basophils Percent Auto 0.1 % (0.0-3.0); Eosinophils Percent Auto 2.5 % (0.0-7.0); Hematocrit 31.1 % (37.0-53.0); Hemoglobin* 9.4 gm/dL (13.5-17.5); Immature Granulocytes Pct Auto 0.3 %; Lymphocytes Percent Auto 57.6 % (20-44); Mean Corpuscular HGB Conc 30 gm/dL (32-36); Mean Corpuscular Hemoglobin 31 pg (26-34); Mean Corpuscular Volume 102 fL (80-100); Monocytes Percent Auto 3.8 % (0.0-11.0); Neutrophils Percent Auto 35.7 % (42.0-72.0); Platelet Count* 345 K/uL (140-440); RDW Coefficient of Variation % 13.8 % (11.5-15.5); Red Blood Count 3.04 m/uL (4.30-5.90); White Blood Count* 21.61 K/uL (4.50-11.00)
[2023-12-01 14:11] LABS: Slide Review Reflex No
[2023-12-01 14:26] LABS: Albumin* 3.8 g/dL (3.3-5.0); Chloride* 100 mmol/L (96-114); Potassium* 4.3 mmol/L (3.6-5.1); Sodium* 131 mmol/L (135-149)
[2023-12-01 14:29] LABS: Alanine Aminotransferase* 10 U/L (4-50); Alkaline Phosphatase* 80 U/L (40-150); Anion Gap 5 mEq/L (7-15); Aspartate Amino Transferase* 19 U/L (12-35); Bilirubin Total* 2.1 mg/dL (0.1-1.5); Blood Urea Nitrogen* 13 mg/dL (7-30); Calcium* 8.3 mg/dL (8.4-10.6); Carbon Dioxide* 26 mmol/L (20-32); Est. Creatinine Clearance* 62.86; Estimated Glomerular Filt Rate 77 ml/min; Glucose* 102 mg/dL (60-115); Total Protein* 5.7 g/dL (6.0-8.3)
[2023-12-07 08:30] VITALS: BP 133/78; PULSE 66; RESP 14; TEMP 37.1; O2SAT 97
[2023-12-07] MEDS: PEMBROLIZUMAB 200 MG, TUBING PRIMARY 1 EACH, In-line 0.2 micron filter set 1 EACH in 0.... 216 MG IVPB (09:59)
[2023-12-07] MEDS: SODIUM CHLORIDE 0.9 % (FLUSH) 10 ML SYRINGE IVF (10:00)
[2023-12-07] MEDS: 0.9 % SODIUM CHLORIDE 250 ml IV (10:00)
--- NOTE | 2023-12-07 10:10 | ONC.NURNOTE ---
Freeman has an apt on December [address] Hurtado and Labs. Last Labs were done on 11/30. Freeman is concerned waiting till december 28 for labs and would like to have Labs done the week of December 11. Note left for Judy Chisholm APRN
--- NOTE | 2023-12-07 11:05 | ONC.NURNOTE ---
Reviewed labs with Purnima AGUILAR before starting tratment today. lt eye blood shot today. no drainage. started this am. lt arm swollen slightly from noseems bites. no reddness or open areas. evgeny treatment well.
[2023-12-14 10:32] LABS: Basophils Percent Auto 0.3 % (0.0-3.0); Eosinophils Percent Auto 2.2 % (0.0-7.0); Hematocrit 29.2 % (37.0-53.0); Immature Granulocytes Pct Auto 0.5 %; Lymphocytes Percent Auto 53.9 % (20-44); Mean Corpuscular HGB Conc 31 gm/dL (32-36); Mean Corpuscular Hemoglobin 31 pg (26-34); Mean Corpuscular Volume 100 fL (80-100); Neutrophils Percent Auto 36.1 % (42.0-72.0); Platelet Count* 281 K/uL (140-440); RDW Coefficient of Variation % 13.7 % (11.5-15.5); Red Blood Count 2.91 m/uL (4.30-5.90); White Blood Count* 21.35 K/uL (4.50-11.00)
[2023-12-14 10:34] LABS: Slide Review Reflex Yes
[2023-12-14 10:41] LABS: Albumin* 3.7 g/dL (3.3-5.0)
[2023-12-14 10:42] LABS: Chloride* 99 mmol/L (96-114); Potassium* 4.1 mmol/L (3.6-5.1); Sodium* 129 mmol/L (135-149)
[2023-12-14 10:44] LABS: Anion Gap 8 mEq/L (7-15); Aspartate Amino Transferase* 20 U/L (12-35); Bilirubin Total* 2.6 mg/dL (0.1-1.5); Blood Urea Nitrogen* 11 mg/dL (7-30); Carbon Dioxide* 22 mmol/L (20-32); Est. Creatinine Clearance* 62.86; Estimated Glomerular Filt Rate 77 ml/min; Total Protein* 5.6 g/dL (6.0-8.3)
[2023-12-14 10:45] LABS: Alanine Aminotransferase* 11 U/L (4-50); Alkaline Phosphatase* 78 U/L (40-150); Calcium* 8.4 mg/dL (8.4-10.6); Glucose* 117 mg/dL (60-115)
[2023-12-14 11:10] LABS: Slide Review Acceptable Review (Acceptable)
--- NOTE | 2023-12-14 15:28 | ONC.NURNOTE ---
Lab results reviewed with Judy Rendon APRN and called to Freeman noted hallie up, sodium low- plan to recheck in a week- instructions on adding some salt to food plan to monitor for further changes in bili- sees Dr Hurtado in 2 weeks patient noted increase in swelling of left arm- he has history of some swelling- no redness or pain 1-2 + pitting forearm- notices that it does worsen after golf ice to site today improved the swelling- recommended to keep elevated on a pillow while sitting upon further discussion- Freeman also states that he has noticed an enlarge lymph node in the left axilla- that has definitely increased in size this past month notices increase in fatigue- hg noted to be decreasing as well will monitor with next weeks lab freeman also has burst blood vessel in his left eye- no pain swelling or visual changes- rec see optometry if worsen or visual changes occur
[2023-12-19 13:16] LABS: Bilirubin Direct* 0.3 mg/dL (0.0-0.5)
--- NOTE | 2023-12-19 15:25 | ONC.NURNOTE ---
direct bili added on today and was normal per Judy/Dr Hurtado- lab tomorrow can be canceled continue on current dose calquence next lab due in [address] Genesis hanna in regards to left UE swelling an US was ordered - to complete prior to Dr Genesis hanna patient states understanding
[2023-12-29 09:00] LABS: Chloride* 99 mmol/L (96-114)
[2023-12-29 09:01] LABS: Albumin* 3.8 g/dL (3.3-5.0); Sodium* 131 mmol/L (135-149)
[2023-12-29 09:03] LABS: Anion Gap 9 mEq/L (7-15); Carbon Dioxide* 23 mmol/L (20-32); Est. Creatinine Clearance* 62.86; Estimated Glomerular Filt Rate 77 ml/min
[2023-12-29 09:04] LABS: Alanine Aminotransferase* 12 U/L (4-50); Alkaline Phosphatase* 81 U/L (40-150); Aspartate Amino Transferase* 20 U/L (12-35); Bilirubin Direct* 0.1 mg/dL (0.0-0.5); Bilirubin Total* 2.5 mg/dL (0.1-1.5); Blood Urea Nitrogen* 14 mg/dL (7-30); Calcium* 8.4 mg/dL (8.4-10.6); Glucose* 134 mg/dL (60-115); Total Protein* 5.8 g/dL (6.0-8.3)
[2023-12-29 09:20] LABS: Hematocrit 30.1 % (37.0-53.0); Hemoglobin* 9.1 gm/dL (13.5-17.5); Mean Corpuscular HGB Conc 30 gm/dL (32-36); Mean Corpuscular Hemoglobin 31 pg (26-34); Mean Corpuscular Volume 102 fL (80-100); Platelet Count* 315 K/uL (140-440); RDW Coefficient of Variation % 13.4 % (11.5-15.5); Red Blood Count 2.94 m/uL (4.30-5.90); White Blood Count* 23.08 K/uL (4.50-11.00)
[2023-12-29 09:27] LABS: Slide Review Reflex Req Man Differential
[2023-12-29 09:28] LABS: Total Cells Counted 100
[2023-12-29 10:03] LABS: Burr Cells* Moderate; Platelet Estimate Appears Adequate (Adequate); Smudge Cells Few
[2023-12-29] MEDS: SODIUM CHLORIDE 0.9 % (FLUSH) 10 ML SYRINGE IVF (10:55)
[2023-12-29] MEDS: 0.9 % SODIUM CHLORIDE 250 ml IV (10:56)
[2023-12-29] MEDS: PEMBROLIZUMAB 200 MG, TUBING PRIMARY 1 EACH, In-line 0.2 micron filter set 1 EACH in 0.... 216 MG IVPB (11:17)
--- NOTE | 2024-01-16 13:38 | ONC.NURNOTE ---
Pt called [facility] updating that his cardiac procedures scheduled for today were held, following the results of his MERVAT, showing new valve leaking. Referred to valve team to consult on repair vs replace valve, in addition to his other procedure. Pt not sure if this will be scheduled in a few days or a few weeks and is asking if ok to have Keytruda when due this week 01/18. Pt was scheduled out 1 wk on 01/25 to allow for recovery from cardiac procedure. Reviewed with Judy Chisholm APRN and Pharm. Ok to schedule for 01/18 Keytruda. Pt to notify us when cardiac procedure rescheduled.
[2024-01-25 09:52] LABS: Basophils Percent Auto 0.2 % (0.0-3.0); Eosinophils Percent Auto 1.2 % (0.0-7.0); Hematocrit 30.1 % (37.0-53.0); Hemoglobin* 9.5 gm/dL (13.5-17.5); Immature Granulocytes Pct Auto 0.2 %; Lymphocytes Percent Auto 56.5 % (20-44); Mean Corpuscular HGB Conc 32 gm/dL (32-36); Mean Corpuscular Hemoglobin 32 pg (26-34); Mean Corpuscular Volume 100 fL (80-100); Monocytes Percent Auto 6.4 % (0.0-11.0); Neutrophils Percent Auto 35.5 % (42.0-72.0); Platelet Count* 283 K/uL (140-440); RDW Coefficient of Variation % 13.5 % (11.5-15.5); Red Blood Count 3.02 m/uL (4.30-5.90)
[2024-01-25 10:11] LABS: Albumin* 3.8 g/dL (3.3-5.0); Chloride* 98 mmol/L (96-114); Potassium* 4.1 mmol/L (3.6-5.1); Sodium* 128 mmol/L (135-149)
[2024-01-25 10:13] LABS: Est. Creatinine Clearance* 62.86; Estimated Glomerular Filt Rate 77 ml/min
[2024-01-25 10:14] LABS: Alanine Aminotransferase* 11 U/L (4-50); Alkaline Phosphatase* 78 U/L (40-150); Anion Gap 6 mEq/L (7-15); Aspartate Amino Transferase* 19 U/L (12-35); Blood Urea Nitrogen* 13 mg/dL (7-30); Calcium* 8.9 mg/dL (8.4-10.6); Carbon Dioxide* 24 mmol/L (20-32); Glucose* 114 mg/dL (60-115); Total Protein* 5.6 g/dL (6.0-8.3)
[2024-01-25 10:30] LABS: Slide Review Reflex No; White Blood Count* 27.59 K/uL (4.50-11.00)
[2024-01-25] MEDS: PEMBROLIZUMAB 200 MG, TUBING PRIMARY 1 EACH, In-line 0.2 micron filter set 1 EACH in 0.... 216 MG IVPB (11:48)
[2024-01-25] MEDS: 0.9 % SODIUM CHLORIDE 250 ml IV (11:49)
[2024-01-25 13:00] VITALS: BP 136/77; PULSE 62; RESP 16; TEMP 36.6; O2SAT 98
[2024-02-16 08:52] LABS: Basophils Percent Auto 0.2 % (0.0-3.0); Eosinophils Percent Auto 1.8 % (0.0-7.0); Hematocrit 31.1 % (37.0-53.0); Hemoglobin* 9.6 gm/dL (13.5-17.5); Immature Granulocytes Pct Auto 0.3 %; Lymphocytes Percent Auto 50.5 % (20-44); Mean Corpuscular HGB Conc 31 gm/dL (32-36); Mean Corpuscular Hemoglobin 31 pg (26-34); Mean Corpuscular Volume 101 fL (80-100); Monocytes Percent Auto 7.5 % (0.0-11.0); Neutrophils Percent Auto 39.7 % (42.0-72.0); Platelet Count* 267 K/uL (140-440); RDW Coefficient of Variation % 13.8 % (11.5-15.5); Red Blood Count 3.07 m/uL (4.30-5.90); White Blood Count* 21.88 K/uL (4.50-11.00)
[2024-02-16 08:54] LABS: Slide Review Reflex No
[2024-02-16 09:17] LABS: Albumin* 3.7 g/dL (3.3-5.0); Chloride* 99 mmol/L (96-114); Potassium* 4.2 mmol/L (3.6-5.1); Sodium* 130 mmol/L (135-149)
[2024-02-16 09:19] LABS: Est. Creatinine Clearance* 60.88; Estimated Glomerular Filt Rate 77 ml/min
[2024-02-16 09:20] LABS: Alanine Aminotransferase* 11 U/L (4-50); Alkaline Phosphatase* 80 U/L (40-150); Anion Gap 8 mEq/L (7-15); Aspartate Amino Transferase* 20 U/L (12-35); Bilirubin Total* 2.4 mg/dL (0.1-1.5); Blood Urea Nitrogen* 14 mg/dL (7-30); Carbon Dioxide* 23 mmol/L (20-32); Glucose* 109 mg/dL (60-115); Total Protein* 5.6 g/dL (6.0-8.3)
[2024-02-16 09:21] LABS: Calcium* 8.3 mg/dL (8.4-10.6)
[2024-02-16] MEDS: PEMBROLIZUMAB 200 MG, TUBING PRIMARY 1 EACH, In-line 0.2 micron filter set 1 EACH in 0.... 216 MG IVPB (10:47)
[2024-02-16] MEDS: SODIUM CHLORIDE 0.9 % (FLUSH) 10 ML SYRINGE IVF (10:48)
[2024-02-16] MEDS: 0.9 % SODIUM CHLORIDE 250 ml IV (10:48)
--- NOTE | 2024-02-27 08:58 | PC.NURSE ---
[facility] received a fax from [facility] stating that they had been trying to reach Freeman to discuss refilling his Calquence. RN called Freeman to check in. Pt reports that he received a covid vaccine on Tuesday and then starting on developed fevers and diarrhea. On his temp got up to 103.7 and he went to the ER. All testing done was negative. In the days following, the fevers and diarrhea resolved. Freeman is finally feeling pretty good today. He will call [facility] today. Number provided.
[2024-03-08 09:16] VITALS: BP 120/67; PULSE 72; RESP 16; TEMP 36.6; O2SAT 97
[2024-03-08 09:17] LABS: Basophils Percent Auto 0.3 % (0.0-3.0); Eosinophils Percent Auto 1.7 % (0.0-7.0); Hematocrit 31.3 % (37.0-53.0); Hemoglobin* 9.5 gm/dL (13.5-17.5); Immature Granulocytes Pct Auto 0.3 %; Lymphocytes Percent Auto 63.8 % (20-44); Mean Corpuscular HGB Conc 30 gm/dL (32-36); Mean Corpuscular Hemoglobin 30 pg (26-34); Mean Corpuscular Volume 100 fL (80-100); Monocytes Percent Auto 5.6 % (0.0-11.0); Neutrophils Percent Auto 28.3 % (42.0-72.0); Platelet Count* 338 K/uL (140-440); RDW Coefficient of Variation % 13.5 % (11.5-15.5); Red Blood Count 3.12 m/uL (4.30-5.90)
[2024-03-08 09:21] LABS: Slide Review Reflex No; White Blood Count* 35.07 K/uL (4.50-11.00)
[2024-03-08 09:44] LABS: Chloride* 101 mmol/L (96-114); Potassium* 3.8 mmol/L (3.6-5.1); Sodium* 129 mmol/L (135-149)
[2024-03-08 09:46] LABS: Est. Creatinine Clearance* 60.88; Estimated Glomerular Filt Rate 77 ml/min
[2024-03-08 09:47] LABS: Alanine Aminotransferase* 11 U/L (4-50); Alkaline Phosphatase* 83 U/L (40-150); Anion Gap 6 mEq/L (7-15); Aspartate Amino Transferase* 18 U/L (12-35); Blood Urea Nitrogen* 13 mg/dL (7-30); Calcium* 8.5 mg/dL (8.4-10.6); Carbon Dioxide* 22 mmol/L (20-32); Glucose* 118 mg/dL (60-115); Total Protein* 5.9 g/dL (6.0-8.3)
[2024-03-08] MEDS: SODIUM CHLORIDE 0.9 % (FLUSH) 10 ML SYRINGE IVF (11:05)
[2024-03-08] MEDS: 0.9 % SODIUM CHLORIDE 250 ml IV (11:05)
[2024-03-08] MEDS: PEMBROLIZUMAB 200 MG, TUBING PRIMARY 1 EACH, In-line 0.2 micron filter set 1 EACH in 0.... 216 MG IVPB (11:07)
--- NOTE | 2024-03-08 12:23 | ONC.NURNOTE ---
Patient in clinic today for Labs and Keytruda. Labs resulted with a WBC of 35.07, WBC was 19.17 on 02/22. Patient denies any fevers or any S/S of infection. He did receive his COVID vaccine on 02/22 and did have an adverse reaction to it. Labs discussed with Taniya Garzon PA-C. No concern at this time, will recheck labs in 3 weeks with next infusion. Avised patient to call if he developed any fevers or any S/S of infection. Patient verbalized understanding and is agreeable to the plan. A copy of his lab results were given to him.
== END 2024-03-13 23:59 | disposition home or self-care (01) ==
LOC: CCIC 09:00
PROVIDERS: Internal Medicine Hematology & Oncology; Physician Assistant; PCP Student in an Organized Health Care Education/Training Program; Referring Provider Student in an Organized Health Care Education/Training Program; Visit Provider Clinical Nurse Specialist
DX: C91.10 Chronic lymphocytic leukemia of B-cell type not having achieved remission (principal); Z51.12 Encounter for antineoplastic immunotherapy; E03.9 Hypothyroidism, unspecified; R79.89 Other specified abnormal findings of blood chemistry; Z79.899 Other long term (current) drug therapy
CPT/HCPCS: 36415; 78815; 80053; 82248; 84443; 85025; 96365; 96413; 99213; 99214; 99215; G0463; A9552; J7050; J9271

== ENCOUNTER 2024-04-25 11:16 | Emergency (ER) | payer MEDICARE, BC, SELFPAY ==
[2024-04-25] VITALS (34 sets, daily range): BP systolic 99–148; BP diastolic 64–115; PULSE 62–123; RESP 9–21; TEMP 36.5; O2SAT 97–100; BMI 22.6
--- NOTE | 2024-04-25 11:51 | ED.ARRPALP ---
HPI - Arrhythmia/Palpitations General Time Seen by Provider: 11:30 <Heaven Lee MD - Last Filed: 04/25/24 14:23> Date Seen: 04/25/24 <Heaven Lee MD - Last Filed: 04/25/24 14:23> Chief Complaint: Arrhythmia/Palpitations <Heaven Lee MD - Last Filed: 04/25/24 14:23> Stated Complaint: AFib <Heaven Lee MD - Last Filed: 04/25/24 14:23> Time Seen by Provider: 04/25/24 11:27 <Heaven Lee MD - Last Filed: 04/25/24 14:23> Source: patient and family <Heaven Lee MD - Last Filed: 04/25/24 14:23> Mode of arrival: ambulatory <Heaven Lee MD - Last Filed: 04/25/24 14:23> Limitations: no limitations <Heaven Lee MD - Last Filed: 04/25/24 14:23> History of Present Illness HPI narrative: Freeman Jensen is a 78 yo man with a complex medical history including refractory atrial fibrillation on chronic anticoagulation with xarleto, CLL on acalabrutinib 100 mg BID and 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 Patient states that he woke up this morning at 5:15 a.m. in atrial fibrillation. Patient reports feeling his heart irregular, and palpitations. Patient states he would bed last night feeling well. Patient denies any weakness, dizziness, chest pain, shortness of breath, abdominal pain, nausea, vomiting, diarrhea. Denies any recent cough or cold-like symptoms. Patient denies any new lower extremity edema or calf tenderness. Patient reports chronic lower extremity edema at baseline and states that he has had multiple ultrasounds ruling out DVTs. No worsening symptoms. Patient reports history of AFib status post failed ablation in the past, multiple cardioversions, reports he was on sotalol however that failed and he was most recently started on amiodarone back in October of 2022. Patient states he has been doing well for the past 17 months. Patient states he takes 100 mg of amiodarone daily which he took this morning around 530 along with 25 mg of metoprolol b.i.d. Patient states he was going to have another ablation back in November 2023 however since he was asymptomatic recommended continued observation follow-up, 1 year. Patient states he typically follows up with cardiology at [facility] in [place]. No other complaints. <Heaven Lee MD - Last Filed: 04/25/24 14:23> Related Data Home Medications: Home Medications ?Medication ?Instructions ?Recorded ?Confirmed rivaroxaban 20 mg tablet (Xarelto) 20 mg PO Q24H 12/07/21 04/19/24 alprazolam 0.25 mg tablet 0.25 mg PO DAILY PRN 12/16/21 04/19/24 famotidine 20 mg tablet (Pepcid) 20 mg PO DAILY 12/16/21 04/19/24 magnesium chloride 71.5 mg 71.5 mg PO QDAY 02/15/22 04/19/24 (magnesium chloride) tablet,delayed release (Slow-Mag) tamsulosin 0.4 mg capsule (Flomax) 0.4 mg PO QDAY 02/15/22 04/19/24 amiodarone 100 mg tablet 100 mg PO QDAY 11/11/22 04/19/24 metoprolol tartrate 25 mg tablet 25 mg PO BID 11/11/22 04/19/24 lisinopril 10 mg tablet 15 mg PO BID 03/03/23 04/19/24 calcium carbonate (Tums) 300 mg PO BID PRN 03/31/23 04/19/24 ferrous sulfate 324 mg (65 mg 972 mg PO QDAY 03/31/23 04/19/24 iron) tablet,delayed release atorvastatin 20 mg tablet 20 mg PO QDAY 11/17/23 04/19/24 furosemide 20 mg tablet 20 mg PO DAILY PRN 01/25/24 04/19/24 Previous Rx's ?Medication ?Instructions ?Recorded acalabrutinib maleate 100 mg 100 mg PO Q12H #60 tabs 10/27/23 tablet (Calquence (acalabrutinib maleate)) levothyroxine 100 mcg tablet 100 mcg PO QDAY Hypothyroid #30 12/29/23 tabs <Heaven Lee MD - Last Filed: 04/25/24 14:23> Allergies/Adverse Reactions: Allergies Allergy/AdvReac Type Severity Reaction Status Date / Time ibrutinib (From Imbruvica) Allergy Intermediate Rash Verified 04/19/24 10:08 Penicillins Allergy Verified 04/19/24 10:08 <Heaven Lee MD - Last Filed: 04/25/24 14:23> Review of Systems Const: Denies: fever <Heaven Lee MD - Last Filed: 04/25/24 14:23> Eyes: Denies: change in vision <Heaven Lee MD - Last Filed: 04/25/24 14:23> ENMT: Denies: neck pain <Heaven Lee MD - Last Filed: 04/25/24 14:23> Cardio: Denies: chest pain, lightheadedness or shortness of breath with exertion <Heaven Lee MD - Last Filed: 04/25/24 14:23> Resp: Denies: shortness of breath or cough <Heaven Lee MD - Last Filed: 04/25/24 14:23> GI: Denies: abdominal pain or vomiting <Heaven Lee MD - Last Filed: 04/25/24 14:23> : Denies: painful urination <Heaven Lee MD - Last Filed: 04/25/24 14:23> Musculo: Denies: neck pain <Heaven Lee MD - Last Filed: 04/25/24 14:23> Integ/Breast: Denies: rash <Heaven Lee MD - Last Filed: 04/25/24 14:23> Neuro: Denies: headache or weakness in extremities <Heaven Lee MD - Last Filed: 04/25/24 14:23> Aly/Lymph: Reports: easy bleeding <Heaven Lee MD - Last Filed: 04/25/24 14:23> Allergy/Immuno: Denies: hives <Heaven Lee MD - Last Filed: 04/25/24 14:23> PFSH PFS Medical History: Medical History Hypothyroid ?E03.9 - Hypothyroidism, unspecified (ICD-10) Right leg swelling ?M79.89 - Other specified soft tissue disorders (ICD-10) 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 - Malignant neoplasm of major salivary gland, unspecified (ICD-10) Anemia ?D64.9 - Anemia, unspecified (ICD-10) GERD (gastroesophageal reflux disease) ?K21.9 - Gastro-esophageal reflux disease without esophagitis (ICD-10) CAD (coronary artery disease) ?I25.10 - Atherosclerotic heart disease of [place] coronary artery without angina pectoris (ICD-10) Pulmonary nodules ?R91.8 - Other nonspecific abnormal finding of lung field (ICD-10) History of cardioversion ?Z98.890 - Other specified postprocedural states (ICD-10) CLL (chronic lymphocytic leukemia) (~08/2018) ?C91.10 - Chronic lymphocytic leukemia of B-cell type not having achieved remission (ICD-10) Malignant melanoma ?C43.9 - Malignant melanoma of skin, unspecified (ICD-10) Anxiety ?F41.9 - Anxiety disorder, unspecified (ICD-10) BPH with obstruction/lower urinary tract symptoms ?N40.1 - Benign prostatic hyperplasia with lower urinary tract symptoms (ICD-10) ?N13.8 - Other obstructive and reflux uropathy (ICD-10) Prostate cancer ?C61 - Malignant neoplasm of prostate (ICD-10) Hypertension ?I10 - Essential (primary) hypertension (ICD-10) Paroxysmal atrial fibrillation ?I48.0 - Paroxysmal atrial fibrillation (ICD-10) <Heaven Lee MD - Last Filed: 04/25/24 14:23> Surgical History: Surgical History S/P mitral valve clip implantation (~2019) ?Z98.890 - Other specified postprocedural states (ICD-10) ?Z95.818 - Presence of other cardiac implants and grafts (ICD-10) History of tonsillectomy ?Z90.89 - Acquired absence of other organs (ICD-10) History of melanoma excision ?Z98.890 - Other specified postprocedural states (ICD-10) ?Z85.820 - Personal history of malignant melanoma of skin (ICD-10) History of cataract surgery ?Z98.49 - Cataract extraction status, unspecified eye (ICD-10) Hx of mitral valve repair ?Z98.890 - Other specified postprocedural states (ICD-10) <Heaven Lee MD - Last Filed: 04/25/24 14:23> Family History: Family History Other CHF (congestive heart failure) Hodgkins disease <Heaven Lee MD - Last Filed: 04/25/24 14:23> Social History: Social History Narrative: he is and here with his . He gets oncology care through [facility]. He gets primary care through Dr. Brian Coronado. He does not smoke. He drinks 1 glass of red wine daily. Smoking Status: Never smoker Do you use any of these nicotine containing products: None Second hand tobacco smoke exposure: No How often do you have a drink containing alcohol: never How often do you have six or more drinks on one occasion: Never AUDIT-C Alcohol total score: 0 Non-prescribed substance use: denies use service: No <Heaven Lee MD - Last Filed: 04/25/24 14:23> Exam Const: Vital Signs, click to edit/add: Vital Signs - 24 hr 04/25/24 11:23 04/25/24 12:16 04/25/24 12:17 Temperature 97.7 F Pulse Rate 95 97 Pulse Rate [Right Pulse Oximeter] 123 H Respiratory Rate 18 Blood Pressure 111/77 Blood Pressure [Ri ght Upper Arm] 99/65 Pulse Oximetry 98 98 99 Oxygen Delivery Me thod Room Air 04/25/24 12:30 04/25/24 12:32 04/25/24 12:45 Temperature Pulse Rate 106 H 93 101 H Pulse Rate [Right Pulse Oximeter] Respiratory Rate Blood Pressure 107/83 Blood Pressure [Ri ght Upper Arm] Pulse Oximetry 99 99 99 Oxygen Delivery Me thod 04/25/24 12:47 04/25/24 12:48 04/25/24 13:00 Temperature Pulse Rate 95 98 98 Pulse Rate [Right Pulse Oximeter] Respiratory Rate Blood Pressure 116/75 Blood Pressure [Ri ght Upper Arm] Pulse Oximetry 100 99 100 Oxygen Delivery Me thod 04/25/24 13:01 04/25/24 13:15 04/25/24 13:17 Temperature Pulse Rate 109 H 102 H 103 H Pulse Rate [Right Pulse Oximeter] Respiratory Rate Blood Pressure 116/80 111/77 Blood Pressure [Ri ght Upper Arm] Pulse Oximetry 98 99 99 Oxygen Delivery Me thod 04/25/24 13:30 04/25/24 13:32 04/25/24 13:44 Temperature Pulse Rate 111 H 105 H Pulse Rate [Right Pulse Oximeter] Respiratory Rate Blood Pressure 129/87 Blood Pressure [Ri ght Upper Arm] Pulse Oximetry 99 99 100 Oxygen Delivery Me thod Room Air 04/25/24 13:45 04/25/24 13:47 04/25/24 14:00 Temperature Pulse Rate 107 H 101 H 115 H Pulse Rate [Right Pulse Oximeter] Respiratory Rate 10 L 11 L Blood Pressure 120/80 Blood Pressure [Ri ght Upper Arm] Pulse Oximetry 98 97 100 Oxygen Delivery Me thod 04/25/24 14:03 04/25/24 14:04 04/25/24 14:06 Temperature Pulse Rate 105 H 100 117 H Pulse Rate [Right Pulse Oximeter] Respiratory Rate 12 19 13 Blood Pressure 144/115 H 148/88 H 115/83 Blood Pressure [Ri ght Upper Arm] Pulse Oximetry 100 100 100 Oxygen Delivery Me thod 04/25/24 14:06 04/25/24 14:08 04/25/24 14:10 Temperature Pulse Rate 117 H 64 63 Pulse Rate [Right Pulse Oximeter] Respiratory Rate 13 19 17 Blood Pressure 115/83 128/75 124/69 Blood Pressure [Ri ght Upper Arm] Pulse Oximetry 100 100 100 Oxygen Delivery Me thod 04/25/24 14:12 04/25/24 14:14 04/25/24 14:15 Temperature Pulse Rate 62 64 62 Pulse Rate [Right Pulse Oximeter] Respiratory Rate 17 14 21 Blood Pressure 120/72 117/64 Blood Pressure [Ri ght Upper Arm] Pulse Oximetry 100 100 100 Oxygen Delivery Me thod 04/25/24 14:16 04/25/24 14:16 04/25/24 14:18 Temperature Pulse Rate 63 63 63 Pulse Rate [Right Pulse Oximeter] Respiratory Rate 14 14 15 Blood Pressure 117/67 117/67 126/69 Blood Pressure [Ri ght Upper Arm] Pulse Oximetry 100 100 100 Oxygen Delivery Me thod 04/25/24 14:20 04/25/24 14:22 04/25/24 14:24 Temperature Pulse Rate 64 63 63 Pulse Rate [Right Pulse Oximeter] Respiratory Rate 9 L 11 L 14 Blood Pressure 123/68 121/68 120/64 Blood Pressure [Ri ght Upper Arm] Pulse Oximetry 99 100 99 Oxygen Delivery Me thod 04/25/24 14:26 04/25/24 14:28 04/25/24 14:30 Temperature Pulse Rate 62 62 63 Pulse Rate [Right Pulse Oximeter] Respiratory Rate 15 13 12 Blood Pressure 117/68 118/67 118/72 Blood Pressure [Ri ght Upper Arm] Pulse Oximetry 99 99 99 Oxygen Delivery Me thod <Heaven Lee MD - Last Filed: 04/25/24 14:23> Vital Signs, click to edit/add: Vital Signs - 24 hr 04/25/24 11:23 04/25/24 12:16 04/25/24 12:17 Temperature 97.7 F Pulse Rate 95 97 Pulse Rate [Right Pulse Oximeter] 123 H Respiratory Rate 18 Blood Pressure 111/77 Blood Pressure [Ri ght Upper Arm] 99/65 Pulse Oximetry 98 98 99 Oxygen Delivery Me thod Room Air 04/25/24 12:30 04/25/24 12:32 04/25/24 12:45 Temperature Pulse Rate 106 H 93 101 H Pulse Rate [Right Pulse Oximeter] Respiratory Rate Blood Pressure 107/83 Blood Pressure [Ri ght Upper Arm] Pulse Oximetry 99 99 99 Oxygen Delivery Me thod 04/25/24 12:47 04/25/24 12:48 04/25/24 13:00 Temperature Pulse Rate 95 98 98 Pulse Rate [Right Pulse Oximeter] Respiratory Rate Blood Pressure 116/75 Blood Pressure [Ri ght Upper Arm] Pulse Oximetry 100 99 100 Oxygen Delivery Me thod 04/25/24 13:01 04/25/24 13:15 04/25/24 13:17 Temperature Pulse Rate 109 H 102 H 103 H Pulse Rate [Right Pulse Oximeter] Respiratory Rate Blood Pressure 116/80 111/77 Blood Pressure [Ri ght Upper Arm] Pulse Oximetry 98 99 99 Oxygen Delivery Me thod 04/25/24 13:30 04/25/24 13:32 04/25/24 13:44 Temperature Pulse Rate 111 H 105 H Pulse Rate [Right Pulse Oximeter] Respiratory Rate Blood Pressure 129/87 Blood Pressure [Ri ght Upper Arm] Pulse Oximetry 99 99 100 Oxygen Delivery Me thod Room Air 04/25/24 13:45 04/25/24 13:47 04/25/24 14:00 Temperature Pulse Rate 107 H 101 H 115 H Pulse Rate [Right Pulse Oximeter] Respiratory Rate 10 L 11 L Blood Pressure 120/80 Blood Pressure [Ri ght Upper Arm] Pulse Oximetry 98 97 100 Oxygen Delivery Me thod 04/25/24 14:03 04/25/24 14:04 04/25/24 14:06 Temperature Pulse Rate 105 H 100 117 H Pulse Rate [Right Pulse Oximeter] Respiratory Rate 12 19 13 Blood Pressure 144/115 H 148/88 H 115/83 Blood Pressure [Ri ght Upper Arm] Pulse Oximetry 100 100 100 Oxygen Delivery Me thod 04/25/24 14:06 04/25/24 14:08 04/25/24 14:10 Temperature Pulse Rate 117 H 64 63 Pulse Rate [Right Pulse Oximeter] Respiratory Rate 13 19 17 Blood Pressure 115/83 128/75 124/69 Blood Pressure [Ri ght Upper Arm] Pulse Oximetry 100 100 100 Oxygen Delivery Me thod 04/25/24 14:12 04/25/24 14:14 04/25/24 14:15 Temperature Pulse Rate 62 64 62 Pulse Rate [Right Pulse Oximeter] Respiratory Rate 17 14 21 Blood Pressure 120/72 117/64 Blood Pressure [Ri ght Upper Arm] Pulse Oximetry 100 100 100 Oxygen Delivery Me thod 04/25/24 14:16 04/25/24 14:16 04/25/24 14:18 Temperature Pulse Rate 63 63 63 Pulse Rate [Right Pulse Oximeter] Respiratory Rate 14 14 15 Blood Pressure 117/67 117/67 126/69 Blood Pressure [Ri ght Upper Arm] Pulse Oximetry 100 100 100 Oxygen Delivery Me thod 04/25/24 14:20 04/25/24 14:22 04/25/24 14:24 Temperature Pulse Rate 64 63 63 Pulse Rate [Right Pulse Oximeter] Respiratory Rate 9 L 11 L 14 Blood Pressure 123/68 121/68 120/64 Blood Pressure [Ri ght Upper Arm] Pulse Oximetry 99 100 99 Oxygen Delivery Me thod 04/25/24 14:26 04/25/24 14:28 04/25/24 14:30 Temperature Pulse Rate 62 62 63 Pulse Rate [Right Pulse Oximeter] Respiratory Rate 15 13 12 Blood Pressure 117/68 118/67 118/72 Blood Pressure [Ri ght Upper Arm] Pulse Oximetry 99 99 99 Oxygen Delivery Me thod <Sharon Ballard MD - Last Filed: 04/25/24 16:29> Common normals: oriented x3; apparent distress <Heaven Lee MD - Last Filed: 04/25/24 14:23> General appearance: cooperative and comfortable <Heaven Lee MD - Last Filed: 04/25/24 14:23> HENMT: Common normals: normocephalic and head/scalp atraumatic <Heaven Lee MD - Last Filed: 04/25/24 14:23> Head and scalp: normocephalic and atraumatic <Heaven Lee MD - Last Filed: 04/25/24 14:23> Mouth: oral and palatal mucosa normal <Heaven Lee MD - Last Filed: 04/25/24 14:23> Eye: Common normals: PERRL and EOMs intact bilaterally <Heaven Lee MD - Last Filed: 04/25/24 14:23> Pupil: PERRL <Heaven Lee MD - Last Filed: 04/25/24 14:23> Neck & C-Spine: Common normals: full ROM and supple <Heaven Lee MD - Last Filed: 04/25/24 14:23> Chest: Common normals: inspection of chest normal <Heaven Lee MD - Last Filed: 04/25/24 14:23> Resp: Common normals: normal respiratory effort and clear to auscultation bilaterally <Heaven Lee MD - Last Filed: 04/25/24 14:23> Auscultation: clear to auscultation bilaterally <Heaven Lee MD - Last Filed: 04/25/24 14:23> Cardio: Common normals: irregular rhythm (Irregular rhythm) <Heaven Lee MD - Last Filed: 04/25/24 14:23> Rhythm: abnormal rhythm (Irregular rhythm) <Heaven Lee MD - Last Filed: 04/25/24 14:23> GI: Common normals: soft to palpation and non-tender <Heaven Lee MD - Last Filed: 04/25/24 14:23> Palpation: soft <Heaven Lee MD - Last Filed: 04/25/24 14:23> : Common normals: no CVA tenderness <Heaven Lee MD - Last Filed: 04/25/24 14:23> Bladder/kidney exam: no CVA tenderness <Heaven Lee MD - Last Filed: 04/25/24 14:23> Back & Pelvis: Common normals: no CVA tenderness <Heaven Lee MD - Last Filed: 04/25/24 14:23> Extremity: Common normals: full ROM and no calf tenderness <Heaven Lee MD - Last Filed: 04/25/24 14:23> General: edema (Right lower extremity edema - baseline per patient) <Heaven Lee MD - Last Filed: 04/25/24 14:23> Neuro: Common normals: oriented x3, CN's II-XII intact bilaterally, moves all extremities, no focal motor deficits and no sensory deficits noted <Heaven Lee MD - Last Filed: 04/25/24 14:23> Psych: Common normals: mental status grossly normal, thought process normal, cooperative, affect normal and speech normal <Heaven Lee MD - Last Filed: 04/25/24 14:23> Speech: normal speech <Heaven Lee MD - Last Filed: 04/25/24 14:23> Thought process: normal thought process <Heaven Lee MD - Last Filed: 04/25/24 14:23> Course Reevaluation(s) Time of Reevaluation #1: 16:26 <Sharon Ballard MD - Last Filed: 04/25/24 16:29> Reevaluation #1: Patient remains in normal sinus rhythm on the monitor. He has received a L of IV fluids, sodium has come back at 1:26 a.m.. He is essentially asymptomatic, no change in his baseline status. He does note that he started Lasix for some chronic right lower extremity edema. He states he has had a Lasix for few years now but did not really take it. He does note that he runs hyponatremic but usually not this low. Did review this with our hospitalist, he is really not symptomatic with his sodium of 126. Patient simply just wants to stop his Lasix, I think that is reasonable. He feels comfortable to discharge to home at this time. <Sharon Ballard MD - Last Filed: 04/25/24 16:29> Consultations Consultation #1: I was present for conscious sedation provider with propofol for synchronized cardioversion for atrial fibrillation with RVR. Appropriate monitoring per protocol was observed. Patient was sedated successfully with 100mg of IV propofol. Patient was cardioverted into sinus rhythm, please see procedure note for this. Patient tolerated the anesthesia without complication, was discharged from protocol once appropriate level of consciousness regained. <Sharon Ballard MD - Last Filed: 04/25/24 16:29> Time: 14:08 <Sharon Ballard MD - Last Filed: 04/25/24 16:29> Vital Signs Vital signs: Initial Vital Signs Temperature 97.7 F 04/25/24 11:23 Temperature Source Temporal Artery Scan 04/25/24 11:23 Pulse Rate 123 H 04/25/24 11:23 Pulse Rhythm Regular 04/25/24 11:23 Pulse Strength 3+ Normal 04/25/24 11:23 Respiratory Rate 18 04/25/24 11:23 Blood Pressure 99/65 04/25/24 11:23 Blood Pressure Mean 76 04/25/24 11:23 Blood Pressure Position Sitting 04/25/24 11:23 Pulse Oximetry 98 04/25/24 11:23 Oxygen Delivery Method Room Air 04/25/24 11:23 Vital Signs Temperature 97.7 F 04/25/24 11:23 Pulse Rate 123 H 04/25/24 11:23 Respiratory Rate 18 04/25/24 11:23 Blood Pressure 99/65 04/25/24 11:23 Pulse Oximetry 98 04/25/24 11:23 Oxygen Delivery Method Room Air 04/25/24 11:23 Temperature 97.7 F 04/25/24 11:23 Pulse Rate 63 04/25/24 14:30 Respiratory Rate 12 04/25/24 14:30 Blood Pressure 118/72 04/25/24 14:30 Pulse Oximetry 99 04/25/24 14:30 Oxygen Delivery Method Room Air 04/25/24 13:44 <Heaven Lee MD - Last Filed: 04/25/24 14:23> Initial Vital Signs Temperature 97.7 F 04/25/24 11:23 Temperature Source Temporal Artery Scan 04/25/24 11:23 Pulse Rate 123 H 04/25/24 11:23 Pulse Rhythm Regular 04/25/24 11:23 Pulse Strength 3+ Normal 04/25/24 11:23 Respiratory Rate 18 04/25/24 11:23 Blood Pressure 99/65 04/25/24 11:23 Blood Pressure Mean 76 04/25/24 11:23 Blood Pressure Position Sitting 04/25/24 11:23 Pulse Oximetry 98 04/25/24 11:23 Oxygen Delivery Method Room Air 04/25/24 11:23 Vital Signs Temperature 97.7 F 04/25/24 11:23 Pulse Rate 123 H 04/25/24 11:23 Respiratory Rate 18 04/25/24 11:23 Blood Pressure 99/65 04/25/24 11:23 Pulse Oximetry 98 04/25/24 11:23 Oxygen Delivery Method Room Air 04/25/24 11:23 Temperature 97.7 F 04/25/24 11:23 Pulse Rate 63 04/25/24 14:30 Respiratory Rate 12 04/25/24 14:30 Blood Pressure 118/72 04/25/24 14:30 Pulse Oximetry 99 04/25/24 14:30 Oxygen Delivery Method Room Air 04/25/24 13:44 <Sharon Ballard MD - Last Filed: 04/25/24 16:29> Medications Administered Medications: Discontinued Medications Generic Name Dose Route Start Last Admin Trade Name Freq PRN Reason Stop Dose Admin Sodium Chloride 1,000 mls @ 500 mls/hr 04/25/24 14:00 04/25/24 15:35 0.9 % Sodium Chloride 1000 Ml IV 04/25/24 15:59 Infused .Q2H SILVANO Infusion Propofol 200 mg 04/25/24 13:44 04/25/24 14:39 Propofol 10 Mg/Ml Inj IVP 04/25/24 13:45 100 mg ONCE ONE Administration <Heaven Lee MD - Last Filed: 04/25/24 14:23> Discontinued Medications Generic Name Dose Route Start Last Admin Trade Name Freq PRN Reason Stop Dose Admin Sodium Chloride 1,000 mls @ 500 mls/hr 04/25/24 14:00 04/25/24 15:35 0.9 % Sodium Chloride 1000 Ml IV 04/25/24 15:59 Infused .Q2H SILVANO Infusion Propofol 200 mg 04/25/24 13:44 04/25/24 14:39 Propofol 10 Mg/Ml Inj IVP 04/25/24 13:45 100 mg ONCE ONE Administration <Sharon Ballard MD - Last Filed: 04/25/24 16:29> MDM - Arrhythmia/Palpitations MDM Narrative Medical decision making narrative: 78-year-old male with history of atrial fibrillation with RVR on chronic anticoagulation with Xarelto, amiodarone 100 mg daily, metoprolol 25 mg twice daily who presents for evaluation of palpitations, irregular rhythm. Upon arrival patient is nontoxic appearing, afebrile, no distress. Patient tachycardic upon arrival with heart rate 123, blood pressure 99/65, oxygen 98% on room air, no respiratory distress. Upon arrival patient was placed on radiographer cardiac catheterization, EKG, comprehensive labs performed. Per chart review patient was last cardioverted in the emergency department in October 2022 and after that was started on amiodarone. Patient states he has been doing well since this time. I personally reviewed interpreted the EKG 12:19 p.m. which demonstrates atrial fibrillation with rapid ventricular response with a ventricular rate of 101 beats per minute, normal axis, QTC 497, no acute ischemic change. Similar findings when compared to prior EKG on 10/07/2022. Comprehensive labs remarkable for wbc elevation of 28.9, hemoglobin 9.4 (both baseline for patient), sodium 126, potassium 4.5, chloride 95, magnesium 1.9, initial point of care troponin 0.01. Patient was treated with 1 L normal saline IV fluid bolus I discussed patient management with cardiology staff at [facility] at 1311 who reviewed patient's recent cardiology visit as well as echocardiogram. Given patient's history of severe mitral regurgitation recommend against cardioversion is patient will not likely stay out of it. Discussed with the windows security engineer and patient is requesting cardioversion. Systems Coordinator states that the patient understands risk of cardioversion, accepts risks, and is taking Xarelto daily as directed, can proceed with cardioversion however he will likely not stay out of it. Also option of giving IV amiodarone bolus 150 mg followed by drip 1mg/min or oral loading dose (400 mg BID x 10 days). I discussed at length with patient and spouse regarding options including cardioversion, amiodarone bolus followed by drip/oral loading dose. Patient also understands and accepts risk and would like to proceed with cardioversion. verbal and written consent obtained. Patient was successfully cardioverted with 100 joules and recovered from procedure with no complications. Patient signed out to Dr. Yun pending re-evaluation after IVF, final disposition. Patient and spouse understand agreed with plan. <Heaven Lee MD - Last Filed: 04/25/24 14:23> Medical Records Attestation: I reviewed the patient's medical records. <Heaven Lee MD - Last Filed: 04/25/24 14:23> Lab Data Attestation: I reviewed the patient's lab results. <Heaven Lee MD - Last Filed: 04/25/24 14:23> Labs: Lab Results 04/25/24 04/25/24 Range/Units 12:09 15:30 WBC 28.90 H* (4.50-11.00) K/uL RBC 3.06 L (4.30-5.90) m/uL Hgb 9.4 L (13.5-17.5) gm/dL Hct 30.9 L (37.0-53.0) % MCV 101 H (80-100) fL MCH 31 (26-34) pg MCHC 30 L (32-36) gm/dL RDW Coeff of Ekta 13.6 (11.5-15.5) % Plt Count 303 (140-440) K/uL Neut % (Auto) 36.5 L (42.0-72.0) % Lymph % (Auto) 53.2 H (20-44) % Summers % (Auto) 9.4 (0.0-11.0) % Eos % (Auto) 0.3 (0.0-7.0) % Baso % (Auto) 0.3 (0.0-3.0) % Neut # (Auto) 10.50 H (1.7-7.0) K/uL Lymph # (Auto) 15.40 H (0.90-2.90) K/uL Summers # (Auto) 2.70 H (0.00-0.90) K/UL Eos # (Auto) 0.10 (0.00-0.50) K/uL Baso # (Auto) 0.10 (0.00-0.30) K/uL Abs Immat Gran (auto) 0.10 (0.00-0.30) K/uL Imm/Tot Granulo (auto) 0.3 % Diff Slide Review Acceptable Review (Acceptable) Sodium 126 L 126 L (135-149) mmol/L Potassium 4.5 (3.6-5.1) mmol/L Chloride 95 L (96-114) mmol/L Carbon Dioxide 22 (20-32) mmol/L Anion Gap 9 (7-15) mEq/L BUN 17 (7-30) mg/dL Creatinine 1.1 (0.5-1.5) mg/dL Estimated Creat Clear 57.52 Estimated GFR 69 ml/min Glucose 102 (60-115) mg/dL Calcium 8.4 (8.4-10.6) mg/dL Magnesium 1.9 (1.5-2.6) mg/dL Total Bilirubin 1.1 (0.1-1.5) mg/dL AST 18 (12-35) U/L ALT 11 (4-50) U/L Alkaline Phosphatase 81 (40-150) U/L NT-Pro-B Natriuret Pep 2380 pg/mL Total Protein 5.5 L (6.0-8.3) g/dL Albumin 3.7 (3.3-5.0) g/dL TSH 8.490 H (0.270-4.200) uIU/mL Free T4 1.21 (0.70-1.85) ng/dL POC Troponin I 0.01 (0.01-0.04) ng/ml <Heaven Lee MD - Last Filed: 04/25/24 14:23> Lab Results 04/25/24 04/25/24 Range/Units 12:09 15:30 WBC 28.90 H* (4.50-11.00) K/uL RBC 3.06 L (4.30-5.90) m/uL Hgb 9.4 L (13.5-17.5) gm/dL Hct 30.9 L (37.0-53.0) % MCV 101 H (80-100) fL MCH 31 (26-34) pg MCHC 30 L (32-36) gm/dL RDW Coeff of Ekta 13.6 (11.5-15.5) % Plt Count 303 (140-440) K/uL Neut % (Auto) 36.5 L (42.0-72.0) % Lymph % (Auto) 53.2 H (20-44) % Summers % (Auto) 9.4 (0.0-11.0) % Eos % (Auto) 0.3 (0.0-7.0) % Baso % (Auto) 0.3 (0.0-3.0) % Neut # (Auto) 10.50 H (1.7-7.0) K/uL Lymph # (Auto) 15.40 H (0.90-2.90) K/uL Summers # (Auto) 2.70 H (0.00-0.90) K/UL Eos # (Auto) 0.10 (0.00-0.50) K/uL Baso # (Auto) 0.10 (0.00-0.30) K/uL Abs Immat Gran (auto) 0.10 (0.00-0.30) K/uL Imm/Tot Granulo (auto) 0.3 % Diff Slide Review Acceptable Review (Acceptable) Sodium 126 L 126 L (135-149) mmol/L Potassium 4.5 (3.6-5.1) mmol/L Chloride 95 L (96-114) mmol/L Carbon Dioxide 22 (20-32) mmol/L Anion Gap 9 (7-15) mEq/L BUN 17 (7-30) mg/dL Creatinine 1.1 (0.5-1.5) mg/dL Estimated Creat Clear 57.52 Estimated GFR 69 ml/min Glucose 102 (60-115) mg/dL Calcium 8.4 (8.4-10.6) mg/dL Magnesium 1.9 (1.5-2.6) mg/dL Total Bilirubin 1.1 (0.1-1.5) mg/dL AST 18 (12-35) U/L ALT 11 (4-50) U/L Alkaline Phosphatase 81 (40-150) U/L NT-Pro-B Natriuret Pep 2380 pg/mL Total Protein 5.5 L (6.0-8.3) g/dL Albumin 3.7 (3.3-5.0) g/dL TSH 8.490 H (0.270-4.200) uIU/mL Free T4 1.21 (0.70-1.85) ng/dL POC Troponin I 0.01 (0.01-0.04) ng/ml <Sharon Ballard MD - Last Filed: 04/25/24 16:29> ECG Data Interpretation: Post cardioversion EKG shows normal sinus rhythm, rate 63 bpm, no ischemia or infarct noted. <Sharon Ballard MD - Last Filed: 04/25/24 16:29> Critical Care Time Critical Care Time Critical Care Time: Yes Attestation: The patient required my highest level preparedness to intervene emergently and I personally spent this critical care time directly and personally managing the patient. This critical care time included: Obtaining a history; Examining the patient; Pulse oximetry; Ordering and reviewing of studies; Arranging urgent treatment with development of a management plan; Evaluation of patients response to treatment; Frequent reassessment discussions with other providers. This critical care time was performed to assess and manage the high probability of imminent life-threatening deterioration that could result in multiorgan failure. It was exclusive of separate billable procedures and treating other patients and teaching time. <Heaven Lee MD - Last Filed: 04/25/24 14:23> Total Critical Care Time in Minutes: 45 <Heaven Lee MD - Last Filed: 04/25/24 14:23> Discharge Plan Discharge Clinical Impression: Atrial fibrillation with rapid ventricular response, Hyponatremia <Heaven Lee MD - Last Filed: 04/25/24 14:23> Instructions: A-fib (Atrial Fibrillation) (ED), Hyponatremia (ED) <Heaven Lee MD - Last Filed: 04/25/24 14:23> Additional Instructions: Need to follow up in clinic to have your sodium rechecked within the next 3-5 days. I would hold her Lasix for now as this may be contributing to your hyponatremia. Talk to your windows security engineer Dr. Santana at [place] in regards to instructions on amiodarone. I know you brought up that you in he had discussed going back up to the 200 mg of amiodarone if needed, recommend that you talk to him for further instructions. Urine sinus rhythm at this time after cardioversion. Stay on your blood thinner, no changes to your other medications at this time. <Heaven Lee MD - Last Filed: 04/25/24 14:23> Activity Level: Activity as Tolerated <Heaven Lee MD - Last Filed: 04/25/24 14:23> Activity as Tolerated <Sharon Ballard MD - Last Filed: 04/25/24 16:29> Prescriptions: No Action Slow-Mag 71.5 mg tablet,delayed release (DR/EC) 71.5 mg PO QDAY tamsulosin [Flomax] 0.4 mg capsule 0.4 mg PO QDAY amiodarone 100 mg tablet 100 mg PO QDAY Patient Comments: dose started at 400mg/day X 14 days currently on 200mg X 28 days then will take 100mg/day metoprolol tartrate 25 mg tablet 25 mg PO BID calcium carbonate [Tums] 300 mg (750 mg) tablet,chewable 300 mg PO BID PRN ferrous sulfate 324 mg (65 mg iron) tablet,delayed release (DR/EC) 972 mg PO QDAY Calquence (acalabrutinib mal) 100 mg tablet 100 mg PO Q12H Qty: 60 11RF alprazolam 0.25 mg tablet 0.25 mg PO DAILY PRN famotidine [Pepcid] 20 mg tablet 20 mg PO DAILY Xarelto 20 mg tablet 20 mg PO Q24H lisinopril 10 mg tablet 15 mg PO BID atorvastatin 20 mg tablet 20 mg PO QDAY furosemide 20 mg tablet 20 mg PO DAILY PRN Rx Instructions: as directed by PA in windows security engineer (Benigno) levothyroxine 100 mcg tablet 100 mcg PO QDAY Qty: 30 6RF <Heaven Lee MD - Last Filed: 04/25/24 14:23> Follow Up/Referrals: GLENNA THOMAS DO [Primary Care Provider] - <Heaven Lee MD - Last Filed: 04/25/24 14:23> Stand Alone Forms: [employer] Info Instructions <Heaven Lee MD - Last Filed: 04/25/24 14:23> Procedures Additional Procedures Procedure name: Electrical Cardioversion <Heaven Lee MD - Last Filed: 04/25/24 14:23> Pre procedure diagnosis: Atrial fibrillation with RVR <Heaven Lee MD - Last Filed: 04/25/24 14:23> Post procedure diagnosis: Normal sinus rhythm <Heaven Lee MD - Last Filed: 04/25/24 14:23> Written consent by: patient <Heaven Lee MD - Last Filed: 04/25/24 14:23> Verification/time out: correct patient, correct procedure and time out performed <Heaven Lee MD - Last Filed: 04/25/24 14:23> Estimated blood loss (if any): none <Heaven Lee MD - Last Filed: 04/25/24 14:23> Conclusion: patient tolerated procedure <Heaven Lee MD - Last Filed: 04/25/24 14:23> Additional comments: Successful cardioversion with 100 joules; total of 1 shock <Heaven Lee MD - Last Filed: 04/25/24 14:23>
[2024-04-25 12:24] LABS: Troponin, Point-of-Care* 0.01 ng/ml (0.01-0.04)
[2024-04-25 12:27] LABS: Basophils Percent Auto 0.3 % (0.0-3.0); Eosinophils Percent Auto 0.3 % (0.0-7.0); Hematocrit 30.9 % (37.0-53.0); Hemoglobin* 9.4 gm/dL (13.5-17.5); Immature Granulocytes Pct Auto 0.3 %; Lymphocytes Percent Auto 53.2 % (20-44); Mean Corpuscular HGB Conc 30 gm/dL (32-36); Mean Corpuscular Hemoglobin 31 pg (26-34); Mean Corpuscular Volume 101 fL (80-100); Monocytes Percent Auto 9.4 % (0.0-11.0); Neutrophils Percent Auto 36.5 % (42.0-72.0); Platelet Count* 303 K/uL (140-440); RDW Coefficient of Variation % 13.6 % (11.5-15.5); Red Blood Count 3.06 m/uL (4.30-5.90)
--- OUTSIDE RECORDS SUMMARY | 2024-04-25 12:30 | XMS_ITS | Clinical Summary ---
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 For routine questions regarding patient records, call [phone] during business hours, M-F 8:00 AM - 5:00 PM Central Time. Record requests for emergency care only can be directed to [phone] at any time.[facility] Allergies Active Allergy Reactions Criticality Noted Date Comments Ibrutinib Rash 11/04/2020 Penicillins Hives (Reselect Reaction) *reaction when teenager, Penicillin G. Medications * This document contains information received from the source organization and may not represent a complete record from that organization. ALPRAZolam (XANAX) 0.25 mg tablet Take 0.125 mg by mouth as needed for anxiety. 08/17/19 19 Active famotidine (PEPCID) 20 mg tablet Take 20 mg by mouth daily. Active calcium carbonate (calcium carbonate) 1000 mg (400 mg calcium) chewable tablet Chew 1 tablet as needed. Active magnesium chloride (Slow-Mag) 71.[address] tablet Take 1 tablet (71.5 mg total) by mouth daily. 01/10/20 22 Active tamsulosin (FLOMAX) 0.4 mg 24 hr capsule 0.4 mg daily. 01/15/20 22 Active Calquence, acalabrutinib mal, 100 mg tablet Take 100 mg by mouth 2 (two) times a day. 10/07/19 23 Active ferrous sulfate 325 mg (65 mg iron) DR tablet Take 325 mg by mouth. 07/20/20 23 Active levothyroxine (SYNTHROID, LEVOTHROID) 50 mcg tablet Take 50 mcg by mouth. 12/24/19 Active omeprazole (PriLOSEC) [address] capsule Take 40 mg by mouth. 12/15/19 Active metoprolol succinate (TOPROL-XL) 25 mg 24 hr tablet 04/14/20 Active oxyCODONE (ROXICODONE) 5 mg immediate release tabletIndications :Chronic Pain/Nonacute Pain Take 1-2 tablets (5-10 mg total) by mouth every 4 (four) hours as needed for moderate pain or score 4-6 of 10 Indication: Chronic Pain/Nonacute Pain. 30 tablet 06/01/20 Active Additional Information Patient not taking.Reported on 03/07/2024 atorvastatin (LIPITOR) 20 mg tablet TAKE ONE TABLET BY MOUTH ONCE EVERY DAY 90 tablet 3 10/11/19 24 Active amiodarone (Pacerone) 200 mg tablet Take 0.5 tablets (100 mg total) by mouth daily. 45 tablet 3 12/22/19 24 Active lisinopriL 10 mg tablet Take 1.5 tablets (15 mg total) by mouth 2 (two) times a day. 270 tablet 3 01/13/20 24 Active furosemide (Lasix) 20 mg tablet Take 1 tablet (20 mg total) by mouth as needed (weight increase 2 lb, edema, or shortness of breath). 30 tablet 1 01/13/20 24 Active Additional Information Patient not taking.Reported on 03/07/2024 rivaroxaban (Xarelto) 20 mg tabletIndications :Atrial Fibrillation Longstanding Persistent (HCC) Take 1 tablet (20 mg total) by mouth daily with evening meal. 90 tablet 3 02/28/20 24 Active iron,carbonyl-vit watson C (Vitron-C) 65 mg iron- [address] tablet Take 65 mg of iron by mouth daily. Do not crush or chew. Active metoprolol tartrate (Lopressor) 25 mg tablet Take 1 tablet (25 mg total) by mouth 2 (two) times a day. 180 tablet 3 04/11/20 24 Active metoprolol tartrate (LOPRESSOR) 25 mg tablet Take 1 tablet (25 mg total) by mouth 2 (two) times a day. 180 tablet 3 04/13/20 23 024 Discontin ued([facility], Clinic, or Other Facility Administered Medication Ordered [...] Encounters Date Type Department Care Team Description 04/09/2024 Refill Department of Cardiovascular Medicine in [address] [phone] Ron Santana M.D., Ph.D. Med Refill 03/29/2024 Orders Only Department of Oncology in [address] [place] [phone] Birdie Hurtado M.D. 03/26/2024 10:56 AM CDT - 03/26/2024 11:59 PM CDT Hospital Encounter Department of Radiology, [facility] in [place], [place] [address] [place] [phone] Birdie Hurtado M.D. Malignant Neoplasm Of Lung Squamous Cell Right (HCC) Discharge Disposition: Home or Self Care 03/21/2024 9:30 AM CDT Immunization Section of Infectious Diseases in [place], [place] [address] [place] [phone] 03/13/2024 10:00 AM CDT Comprehensive Visit Department of Cardiovascular Medicine in [place], [place] [address] [place] [phone] Loraine Thakkar M.D. Atrial Fibrillation Unspecified (HCC); Regurgitation Mitral 03/13/2024 8:12 AM CDT - 03/13/2024 11:59 PM CDT Hospital Encounter Department of Laboratory Medicine and Pathology, [facility] in [place], [place] [address] [place] [phone] Loraine Thakkar M.D. Atrial Fibrillation Unspecified (HCC); Regurgitation Mitral; Repair Mitral Valve Status Post Discharge Disposition: Home or Self Care 03/13/2024 7:54 AM CDT - 03/13/2024 8:11 AM CDT Hospital Encounter Department of Radiology, [facility], in [place], [place] [address] [place] [phone] Marilu Castaneda P.A.-C., M.S. Atrial Fibrillation Unspecified (HCC); Regurgitation Mitral Discharge Disposition: Home or Self Care 03/07/2024 1:00 PM CDT Clinical Communication Virtual Review in [place], [place] 200 [place] [address] 02/27/2024 Refill Department of Cardiovascular Medicine in [place], [place] [address] [place] [phone] Flo Nazario M.D. Med Refill (Xarelto ) 01/26/2024 Orders Only Department of Oncology in [place], [place] [address] [place] [phone] Birdie Hurtado M.D. Malignant Neoplasm Of Lung Squamous Cell Right (HCC) (Primary Dx) from Last 3 Months Immunizations Name Administration Dates Next Due H1N1 All Forms 04/21/2009 HZV (ZOSTAVAX) 10/12/2010 Influenza TIV (IM) 03/09/2018, 7,03/15/2011,2007,03/17/2007,04/09/2006 Influenza, Seasonal, Injectable 03/15/20 11,04/10/2008,03/17/2007,2005 PCV13 12/20/2014 PPSV23 10/12/2010 Td, (Adult) Unspecified 01/19/2006 Tdap 09/11/2012 influenza trivalent high dos e (HD)(PF) 03/21/2024,02/12/2019,03/09/2016,2014,03/14/2014 influenza vaccine quad (FLUZONE/FLUARIX) (6 months and [...] = 0.6 oz pur e alcohol) [facility] Utilities Answer Date Recorded In the past 12 months has e [employer] gas, oil, or water [employer] threatened to shut off services in your [...] week 06/30/2021 How often do you attend gnosticism or zoroastrianism serv ices? Never 06/30/2021 Do you belong to any clubs o r organizations such as gnosticism groups, unions, fraternal or athletic groups, or [...] heating? Not hard at all 06/30/2021 [facility] - Occupational [...] your living situation today? I have a [facility] place to live 01/13/2024 Education Answer Date Recorded What is the highest level of school you have completed or the highest degree you have received? Professional school degree (e.g., MD, DDS, DVM, GRACIELA) 06/30/2021 Sex and Gender Information Value Date Recorded Sex Assigned at Male 06/30/2021 12:19 PM ALLIANCE DIRECTOR Legal Sex Male 7:31 AM CDT Gender Identity Male 06/30/2021 12:19 PM ALLIANCE DIRECTOR Sexual Orientation Straight 06/30/2021 12 :19 PM ALLIANCE DIRECTOR Last Filed Vital Signs Vital Sign Reading Time Taken Comments Blood Pressure 166/75 03/13/2024 9:49 AM CDT Avg of 3 Pulse 64 03/13/2024 9:49 AM CDT Temperature 36.6 C (97.9 F) 05/03/2023 3:58 PM ALLIANCE DIRECTOR Respiratory Rate 16 01/13/2024 12:18 PM CDT Oxygen Saturation 95% 01/13/2024 12:20 PM CDT Inhaled Oxygen Concentration - - Weight 76 kg (167 lb 8.8 oz) 03/13/2024 9:49 AM CDT Height 178.2 cm (5' 10.16) 03/13/2024 9:49 AM C DT Body Mass Index 23.93 03/13/2024 9:49 AM CDT Plan of Treatment Health Maintenance Due Date Last Done Comments Hepatitis C Screening 1945 Zoster Vaccines (1 of 2) 12/07/2010 10/12/2010 RSV vaccine - (32-36 weeks) or 60+ years (1 - 1-dose 75+ series) 2020 DTaP,Tdap,and Td Vaccines (2 - Td or Tdap) 09/11/2022 09/11/2012, 01/19/2006 Depression Screening (Annual PHQ-2) 06/06/2023 COVID-19 Vaccine ( season) 2024 03/02/2022, 09/29/2021, 02/17/2021, Additional history exists Office Visit for Blood Pressure Check / Re-check 06/13/2024 03/13/2024 Creatinine Level (Kidney Function Test) 03/13/2025 03/13/2024, 01/12/2024, 05/23/2023, Additional history exists Potassium Level 03/13/2025 03/13/2024, 08/0 01/2024, 10/26/2022, Additional history exists Sodium Level 03/13/2025 03/13/2024, 08/0 01/2024, 10/13/2022, Additional history exists Pneumococcal vaccine (65+ years) Completed 12/20/2014, 10/12/2010 Fall Risk Screen (Annual) Completed 03/13/2024 Influenza Vaccine Completed 03/21/2024, , 04/02/2022, Additional history exists HPV Vaccines Aged Out No longer eligi ble based on patient's age to complete this topic IPV Vaccines Aged Out No longer eligi ble based on patient's age to complete this topic Medical Devices Implanted Type Area [employer] House Operator Device Identifier Shelf Expiration Date Model / Serial / Lot Clp Tania Clip Del Sys Xtr - [id number] Implanted:Qty : 1 on 06/28/2019 by Hernandez Echevarria M.D. at [facility] Mitralclip N/A: Heart Reese 03/21/2020 [id number] / / [id number] Description:Mitral Valve Ocular Lens Ocular Lens Eye Description:Right Ocular Lens Ocular Lens Eye Description:Left Procedures Procedure Name Priority Date/Time Associated Diagnosis Comments PET CT SKULL TO THIGH RAD - Routine (most inpatients and all outpatients) 03/26/2024 1:13 PM CDT Malignant Neoplasm Of Lung Squamous Cell Right (HCC) SPSMA RESULT Routine 03/13/2024 8:22 AM CDT TN T4 FREE Routine 03/13/2024 8:22 AM CDT THYROPEROXIDASE (TPO) ABS, S Routine 03/13/2024 8:22 AM CDT NT-PRO B-TYPE NATRIURETIC PEPTIDE (BNP), S Routine 03/13/2024 8:22 AM CDT Regurgitation Mitral Repair Mitral Valve Status Post LIPID PANEL, S Routine 03/13/2024 8:22 AM CDT Regurgitation Mitral Repair Mitral Valve Status Post CBC WITH DIFFERENTIAL, B Routine 03/13/2024 8:22 AM CDT Regurgitation Mitral Repair Mitral Valve Status Post PROTHROMBIN TIME (PT), P Routine 03/13/2024 8:22 AM CDT Regurgitation Mitral Repair Mitral Valve Status Post GLUCOSE, FASTING, S/P Routine 03/13/2024 8:22 AM CDT Regurgitation Mitral Repair Mitral Valve Status Post THYROID FUNCTION CASCADE, S Routine 03/13/2024 8:22 AM CDT Atrial Fibrillation Unspecified (HCC) Regurgitation Mitral COMPREHENSIVE METABOLIC PANEL, S/P Routine 03/13/2024 8:22 AM CDT Atrial Fibrillation Unspecified (HCC) Regurgitation Mitral DX CHEST AP OR PA AND LATERAL 2 VIEWS RAD - Routine (most inpatients and all outpatients) 03/13/2024 8:04 AM CDT Atrial Fibrillation Unspecified (HCC) Regurgitation Mitral from Last 3 Months Results * PET CT Skull to Thigh FDG (03/26/2024 1:13 PM CDT) Anatomical Region Laterality Modality Body, Nuclear Medicine PET R ST LOS, PET ARZ LOS, Nuclear Medicine PET FLA LOS, Nuclear Medicine N/A Positron Emission Tomography (PET), Positron Emission Tomography (PET) Impressions 03/26/2024 1:47 PM CDT Interval changes compared to November 24, 2023 as detailed in the findings. Narrative 03/26/2024 1:47 PM CDT EXAM: PET CT SKULL TO THIGH FDG Serum glucose at time of F-18 FDG injection was 9.92 mg/dL. Patient followed standard dietary/fasting requirements for this exam. RADIOPHARMACEUTICAL/MEDS: Route: intravenous fludeoxyglucose F 18 injection CORRECTION (FDG F-18),9.92 millicurie TECHNIQUE: F-18 FDG PET/CT scan was performed from the vertex through the upper thighs with low dose, non-contrast, free-breathing CT images for attenuation correction and anatomic localization (AC/AL), with imaging beginning at approximately 60 minutes after radiotracer injection. COMPARISON: Outside study dated November 24, 2023 INDICATION: Metastatic lung cancer. Subsequent treatment strategy. The patient reports having received a vaccination in the left arm within the last two months. FINDINGS: SUV comparisons are less accurate due to differences in technique. Screen captures of relevant findings are provided in QREADS. (A). Parotid lesions show some improvement. ---Masses in the right parotid gland have decreased volume and current overall D SUV maximum of 17.8 versus 22 on November 24, 2023. ---Focus of activity in the left parotid gland has current SUV max 3.3 versus 6.8 on November 24, 2023. (B). Lungs. ---Interval resolution of the prior 1.4 cm x 1.2 cm nodule in the right lower pulmonary lobe which had misregistered FDG uptake with an SUV maximum of 4.8 on November 24, 2023. ---Multiple rounded groundglass opacities in both lungs show improvement. ---There is again generalized parenchymal haziness both lungs with some areas of likely air-trapping. ---Small quantity of right pleural fluid has decreased. Quantity of left pleural fluid has increased. (C). Bowel. ---There was a focus of activity with an SUV max 5.6 in a small bowel loop on November 24, 2023. This is no longer specifically identified against background bowel FDG uptake on today's study. ---The prior study showed focal activity (SUV max 6.7) in the expected region of the ileocecal junction. This is no longer specifically identified. (D). Lymph nodes. Lymphadenopathy again seen in the neck, axillae, chest, abdomen, pelvis. Some, but not all, of these nodes appear to have enlarged. ---For example, a left axillary node currently measures approximately 4.7 cm x 2 cm versus about 4 cm x 1.7 cm on November 24, 2023 and has a current SUV maximum of 4.3 versus 3.2 on November 24, 2023. ---For example an approximately 4 cm x 1.8 cm right mesenteric node measured about 3.2 cm x 1.5 cm on November 24, 2023 and has a current SUV max of 3.0 versus 3.4 on November 24, 2023. ---For example, an approximately 3.6 cm x 2.5 cm left retroperitoneal node measured about 3.9 cm x 2.8 cm on November 24, 2023 and has an SUV maximum of about 2.5 versus 2.2 on November 24, 2023. ---For example, an approximately 2.1 cm x 1.9 cm distal left external iliac lymph node measured about 2 cm x 1.7 cm on November 24, 2023 and has an SUV max of 2.5 versus 1.8 on November 24, 2023. (E). Other. Site of likely inflammatory activity is now present in the left gluteus mallorie muscle. Noted on low dose, unenhanced, free breathing, nondiagnostic quality CT images obtained for anatomic coregistration and attenuation correction purposes only: Advanced musculoskeletal degenerative changes. Brachytherapy seeds in the prostate gland. Coronary artery and other vascular calcifications. Normal size spleen. Subcutaneous sebaceous cyst in the junction of the posterior neck and upper back. Procedure Note Denny Delgadillo M.D., Ph.D. - 03/26/2024 EXAM: PET CT SKULL TO THIGH FDG Serum glucose at time of F-18 FDG injection was 9.92 mg/dL. Patientfollowed standard dietary/fasting requirements for this exam. RADIOPHARMACEUTICAL/MEDS: Route: intravenous fludeoxyglucose F 18 injection CORRECTION (FDG F-18),9.92 millicurie TECHNIQUE: F-18 FDG PET/CT scan was performed from the vertex through theupper thighs with low dose, non-contrast, free-breathing CT images forattenuation correction and anatomic localization (AC/AL), with imagingbeginning at approximately 60 minutes after radiotracer injection. COMPARISON: Outside study dated November 24, 2023 INDICATION: Metastatic lung cancer. Subsequent treatment strategy. The patient reports having received a vaccination in the left arm withinthe last two months. FINDINGS: SUV comparisons are less accurate due to differences in technique. Screen captures of relevant findings are provided in QREADS. (A). Parotid lesions show some improvement. ---Masses in the right parotid gland have decreased volume and currentoverall uHD SUV maximum of 17.8 versus 22 on November 24, 2023. ---Focus of activity in the left parotid gland has current SUV max 3.3versus 6.8 on November 24, 2023. (B). Lungs. ---Interval resolution of the prior 1.4 cm x 1.2 cm nodule in the rightlower pulmonary lobe which had misregistered FDG uptake with an SUVmaximum of 4.8 on November 24, 2023. ---Multiple rounded groundglass opacities in both lungs showimprovement. ---There is again generalized parenchymal haziness both lungs with someareas of likely air-trapping. ---Small quantity of right pleural fluid has decreased. Quantity of leftpleural fluid has increased. (C). Bowel. ---There was a focus of activity with an SUV max 5.6 in a small bowel loopon November 24, 2023. This is no longer specifically identified againstbackground bowel FDG uptake on today's study. ---The prior study showed focal activity (SUV max 6.7) in the expectedregion of the ileocecal junction. This is no longer specificallyidentified. (D). Lymph nodes. Lymphadenopathy again seen in the neck, axillae, chest,abdomen, pelvis. Some, but not all, of these nodes appear to haveenlarged. ---For example, a left axillary node currently measures approximately 4.7cm x 2 cm versus about 4 cm x 1.7 cm on November 24, 2023 and has a currentSUV maximum of 4.3 versus 3.2 on November 24, 2023. ---For example an approximately 4 cm x 1.8 cm right mesenteric nodemeasured about 3.2 cm x 1.5 cm on November 24, 2023 and has a current SUV maxof 3.0 versus 3.4 on November 24, 2023. ---For example, an approximately 3.6 cm x 2.5 cm left retroperitoneal nodemeasured about 3.9 cm x 2.8 cm on November 24, 2023 and has an SUV maximum ofabout 2.5 versus 2.2 on November 24, 2023. ---For example, an approximately 2.1 cm x 1.9 cm distal left externaliliac lymph node measured about 2 cm x 1.7 cm on November 24, 2023 and has anSUV max of 2.5 versus 1.8 on November 24, 2023. (E). Other. Site of likely inflammatory activity is now present in theleft gluteus mallorie muscle. Noted on low dose, unenhanced, free breathing, nondiagnostic quality CTimages obtained for anatomic coregistration and attenuation correctionpurposes only: Advanced musculoskeletal degenerative changes.Brachytherapy seeds in the prostate gland. Coronary artery and other vascular calcifications. Normal size spleen.Subcutaneous sebaceous cyst in the junction of the posterior neck andupper back. IMPRESSION: Interval changes compared to November 24, 2023 as detailed in the findings. Birdie Hurtado M.D. [facility] [place] PROCEDURES Final Result * T4 (Thyroxine), Free, Serum (03/13/2024 8:22 AM CDT) T4 (Thyroxine), Free, S 1.7 0.9 - 1.7 ng/dL 03/13/2024 10:55 AM CDT DTL Blood 03/13/2024 8:22 AM CDT 03/13/2024 9:03 AM CDT Marilu Castaneda P.A.-C., M.S. LAB BLOOD ADD-ON Fi nal Result [facility] [address] [place] [address], [facility] [address] [place] [address] * (ABNORMAL) Lipid Panel (03/13/2024 8:22 AM CDT) Triglycerides 36 mg/dL 03/13/2024 10:34 AM CDT DTL Comment: ----REFERENCE VALUE---- Normal: <150 mg/dL Borderline High: 150-199 mg/dL High: 200-499 mg/dL Very High: > or =500 mg/dL Cholesterol, Total 64 mg/dL 2023 10:34 AM CDT DTL Comment: ----REFERENCE VALUE---- Desirable: < 200 mg/dL Borderline High: 200 - 239 mg/dL High: > or = 240 mg/dL Cholesterol, LDL, Calculated 23 mg/dL 03/13/2024 10:34 AM CDT DTL Comment: ----REFERENCE VALUE---- Desirable: <100 mg/dL Above Desirable: 100-129 mg/dL Borderline High: 130-159 mg/dL High: 160-189 mg/dL Very High: >=190 mg/dL ----ADDITIONAL INFORMATION---- LDL cholesterol calculated using the Judge/NIH equation. Cholesterol, HDL, S 29(L) >=40 mg/dL 03/13/2024 10:34 AM CDT DTL Cholesterol, Non-HDL, Calculated 35 mg/dL 03/13/2024 10:34 AM CDT DTL Comment: ----REFERENCE VALUE---- Desirable: <130 mg/dL Above Desirable: 130-159 mg/dL Borderline High: 160-189 mg/dL High: 190-219 mg/dL Very High: > or =220 mg/dL Fasting (8 HR or more) Yes 03/13/2024 8:22 AM CDT DTL Blood (Blood, Venous) 03/13/2024 8:22 AM CDT 03/13/2024 9:03 AM CDT us Loraine Thakkar M.D. LAB BLOOD ADD-ON Final Resul t Performing Organization Address City/[facility]/ZIP Co de Phone Number [facility] [place] [address] [place] [address], [facility] DTL [facility] [address] [place] [address] * (ABNORMAL) Morphology Eval (special smear) (03/13/2024 8:22 AM CDT) Neutrophilic Segs and Bands 30(L) 50 - 75 % 03/13/2024 11:06 AM CDT [facility] Lymphocytes 67(H) 18 - 42 % 03/13/2024 11:06 AM CDT [facility] Monocytes 1(L) 2 - 11 % 03/13/2024 11:06 AM CDT [facility] Eosinophils 2 1 - 3 % 03/13/2024 11:06 AM CDT [facility] Fragile Cells Slight 03/13/2024 11:06 AM CDT [facility] Manual Absolute Neutrophil Count 9.15(H) 1.56 - 6.45 x10(9)/L 03/13/2024 11:06 AM CDT PM Comment: ----ADDITIONAL INFORMATION---- The manual absolute neutrophil count is derived from a manual differential count and therefore is not exactly comparable to the automated absolute neutrophil count. Interpretation See Comment 11:06 AM CDT PM Comment: The blood smear findings are consistent with the previous diagnosis of chronic lymphocytic leukemia. Reviewed by: Odalis 03/13/2024 11:06 AM CDT [facility] Blood 03/13/2024 8:22 AM CDT 03/13/2024 8:47 AM CDT us Loraine Thakkar M.D. LAB BLOOD ADD-ON Final Resul t Performing Organization Address City/[facility]/ZIP Co de Phone Number [facility] [place] [address] [place] [address], [facility] [address] [place] [address] * (ABNORMAL) Thyroid Function [place] (03/13/2024 8:22 AM CDT) TSH, Sensitive 10.0(H) 0.3 - 4.2 mIU/L 03/13/2024 10:34 AM CDT DTL Blood (Blood, Venous) 03/13/2024 8:22 AM CDT 03/13/2024 9:03 AM CDT Marilu Castaneda P.A.-C., M.S. LAB BLOOD ADD-ON Fi nal Result Performing Organization Address [facility] Co de Phone Number [facility] [place] [address] [place], [place] [id number] [place] [address] [facility] [address] [place] [address] * (ABNORMAL) NT-Pro B-Type Natriuretic Peptide (BNP) (03/13/2024 8:22 AM CDT) NT-Pro BNP 974(H) <=540 pg/mL 03/13/2024 10:34 AM CDT DTL Comment: NT-proBNP values less than 300 pg/mL have a 99% negative predictive value for excluding acute congestive heart failure. A cutoff of 1200 pg/mL for patients with an eGFR<60 yields a diagnostic sensitivity and specificity of 89% and 72% for acute congestive heart failure. A diagnostic NT-proBNP cutoff of 1800 pg/mL has been suggested in adults over 75 years of age in the absence of renal failure. Blood (Blood, Venous) 03/13/2024 8:22 AM CDT 03/13/2024 9:03 AM CDT us Loraine Thakkar M.D. LAB BLOOD ADD-ON Final Resul t Performing Organization Address [facility] Co de Phone Number [facility] [place] [address] [place] [address], [facility] [address] [place] [address] * Thyroperoxidase (TPO) Antibodies (03/13/2024 8:22 AM CDT) Thyroperoxidase Ab, S <15.0 <34.0 IU/mL 03/13/2024 10:55 AM CDT DTL Blood 03/13/2024 8:22 AM CDT 03/13/2024 9:03 AM CDT us Marilu Castaneda P.A.-C. MBuddyS. LAB BLOOD ADD-ON Fi nal Result Performing Organization Address [facility] de Phone Number [facility] [place] [address] [facility] [address] [place] [address] * (ABNORMAL) Prothrombin Time (PT) (03/13/2024 8:22 AM CDT) Prothrombin Time, P 27.6(H) 9.4 - 12.5 sec 03/13/2024 9:06 AM CDT DTL INR 2.5 0.9 - 1.1 03/13/2024 9:06 AM CDT DTL Comment: ----ADDITIONAL INFORMATION---- Standard intensity warfarin therapeutic range: 2.0 to 3.0 High intensity warfarin therapeutic range: 2.5 to 3.5 Blood (Blood, Venous) 03/13/2024 8:22 AM CDT 03/13/2024 8:47 AM CDT us Loraine Thakkar M.D. LAB BLOOD ADD-ON Final Resul t Performing Organization Address [facility] Co de Phone Number [facility] [place] [address] [place] [address], [facility] [address] [place] [address] * (ABNORMAL) CBC with Differential, Blood (03/13/2024 8:22 AM CDT) Hemoglobin 9.4(L) 13.2 - 16.6 g/dL 03/13/2024 9:34 AM CDT DTL Hematocrit 30.9(L) 38.3 - 48.6 % 03/13/2024 9:34 AM CDT DTL Erythrocytes 3.06(L) 4.35 - 5.65 x10(12)/L 03/13/2024 9:34 AM CDT DTL MCV 101.0(H) 78.2 - 97.9 fL 03/13/2024 9:34 AM CDT DTL RBC Distrib Width 13.9 11.8 - 14.5 % 03/13/2024 9:34 AM CDT DTL Platelet Count 394(H) 135 - 317 x10(9)/L 03/13/2024 9:34 AM CDT DTL Leukocytes 30.5(H) 3.4 - 9.6 x10(9)/L 03/13/2024 11:05 AM CDT DTL Comment:Results confirmed by smear. Neutrophils See Comment 1.56 - 6.45 x10(9)/L 03/13/2024 11:05 AM CDT [facility] Comment:Auto-diff results no t valid. See manual differential. Blood (Blood, Venous) 03/13/2024 8:22 AM CDT 03/13/2024 8:47 AM CDT us Loraine Thakkar M.D. LAB BLOOD ADD-ON Final Resul t Performing Organization Address City/[facility]/ZIP Co de Phone Number [facility], [place] [address] [place] [address], [facility] [address] [place], [place] [id number] [place] [address] [address] [place] [address] * Glucose, Fasting (03/13/2024 8:22 AM CDT) Glucose, P 90 70 - 100 mg/dL 03/13/2024 9:17 AM CDT DTL Last Intake 11 hr 03/13/2024 8:59 AM CDT DTL Blood (Blood, Venous) 03/13/2024 8:22 AM CDT 03/13/2024 8:59 AM CDT us Loraine Thakkar M.D. LAB BLOOD NON ADD-ON Final R esult [facility], [place] [address] [place] [address], [facility] DTL [facility] [address] [place] [address] * (ABNORMAL) Comprehensive Metabolic Panel (03/13/2024 8:22 AM CDT) Potassium, S 4.3 3.6 - 5.2 mmol/L 03/13/2024 10:34 AM CDT DTL Sodium, S 134(L) 135 - 145 mmol/L 03/13/2024 10:34 AM CDT DTL Chloride, S 98 98 - 107 mmol/L 03/13/2024 10:34 AM CDT DTL Bicarbonate, S 23 22 - 29 mmol/L 03/13/2024 10:34 AM CDT DTL Anion Gap 13 7 - 15 03/13/2024 10:34 AM CDT DTL BUN (Blood Urea Nitrogen), S 14 8 - 24 mg/dL 03/13/2024 10:34 AM CDT DTL Creatinine 1.17 0.74 - 1.35 mg/dL 03/13/2024 10:34 AM CDT DTL Estimated GFR (eGFR) 64 >=60 mL/min/BS A 03/13/2024 10:34 AM CDT DTL Comment: Estimated GFR calculated using the 2020 CKD_EPI creatinine equation. Calcium, Total, S 8.7(L) 8.8 - 10.2 mg/dL 03/13/2024 10:34 AM CDT DTL Glucose, S CANCELED mg/dL 03/13/2024 9:03 AM CDT DTL Comment: Duplicate test request. Result canceled by the ancillary. Protein, Total, S 5.4(L) 6.3 - 7.9 g/dL 03/13/2024 10:34 AM CDT DTL Albumin, S 4.0 3.5 - 5.0 g/dL 03/13/2024 10:34 AM CDT DTL Aspartate Aminotransferase (AST), S 16 8 - 48 U/L 03/13/2024 10:34 AM CDT DTL Alkaline Phosphatase, S 109 40 - 129 U/L 03/13/2024 10:34 AM CDT DTL Alanine Aminotransferase (ALT), S 8 7 - 55 U/L 03/13/2024 10:34 AM CDT DTL Bilirubin, Total, S 1.8(H) 0.0 - 1.2 mg/dL 03/13/2024 10:34 AM CDT DTL Blood (Blood, Venous) 03/13/2024 8:22 AM CDT 03/13/2024 9:03 AM CDT us Marilu Castaneda P.A.-C., M.S. LAB BLOOD ADD-ON Fi nal Result [facility] [address] [place] [address], [place] [facility] [address] [place] [address] * DX Chest AP or PA and Lateral 2 Views (03/13/2024 8:04 AM CDT) Anatomical Region Laterality Modality Chest, Thoracic RST LOS, Tho racic ARZ LOS, Thoracic FLA LOS N/A Digital Radiography Impressions 03/13/2024 11:19 AM CDT Since 12/09/2022, new small left and tiny right pleural effusions. Increased atelectasis in the lower lungs. Increased pulmonary vascular congestion. Normal cardiac silhouette size. Mitral clip. Calcified tortuous aorta. Coronary artery calcification. Hypertrophic changes in the spine. Narrative 03/13/2024 11:19 AM CDT EXAM: DX CHEST AP OR PA AND LATERAL 2 VIEWS Procedure Note Zion Jalloh M.D. - 03/13/2024 EXAM: DX CHEST AP OR PA AND LATERAL 2 VIEWS IMPRESSION: Since 12/09/2022, new small left and tiny right pleural effusions. Increasedatelectasis in the lower lungs. Increased pulmonary vascular congestion.Normal cardiac silhouette size. Mitral clip. Calcified tortuous aorta.Coronary artery calcification. Hypertrophic changes in the spine. us Marilu Castaneda P.A.-C., M.S. IMG DIAGNOSTIC IMAG ING PROCEDURES Final Result from Last 3 Months Additional Health Concerns Infection Onset Date Last Indicated Protective Environment 09/20/2022 3 Insurance MEDICARE [facility] Advance Directives For more information, please contact: [phone] * Full Code (Latest Code Status on File) Date Activated Date Inactivated Comments 01/06/2022 5:12 PM 01/09/2022 4:47 PM Question Answer Comments Full Code: Discussed * Full Code Date Activated Date Inactivated Comments 06/28/2019 12:14 PM 06/29/2019 2:37 PM Question Answer Comments Full Code: Discussed Care Teams Electrical Checkout Mechanic Relationship Specialty Start Date End Date Elsewhere, Pcp PCP - General Power Sewing Machine Operator 06/27/19
--- OUTSIDE RECORDS SUMMARY | 2024-04-25 12:30 | XMS_ITS | Referral Summary ---
Author Organization [facility] Address [address] [place] [address] Care Team Providers Care Foundry Metallurgist Name Role Phone Elsewhere, Pcp Primary Care Provider Unavailabl e Source Comments Patient records contain information from all sites at [facility]. For routine questions regarding patient records, call [phone] during business hours, M-F 8:00 AM - 5:00 PM Central Time. Record requests for emergency care only can be directed to [phone] at any time.[facility] Encounters Date Type Department Care Team Description 04/09/2024 Refill Department of Cardiovascular Medicine in [place], [place] [address] [place] [address] Ron Santana M.D., Ph.D. Med Refill 03/29/2024 Orders Only Department of Oncology in [address] [phone] Birdie Hurtado M.D. 03/26/2024 10:56 AM CDT - 03/26/2024 11:59 PM CDT Hospital Encounter Department of Radiology, [facility] in [place], [place] [address] [place] [address] Birdie Hurtado M.D. 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 Atrial Fibrillation Unspecified (HCC); Regurgitation Mitral Discharge Disposition: Home or Self Care 03/13/2024 8:12 AM CDT - 03/13/2024 11:59 PM CDT Hospital Encounter Department of Laboratory Medicine and Pathology, [facility], in [place], [place] [address] [place] [phone] Loraine Thakkar M.D. Atrial Fibrillation Unspecified (HCC); Regurgitation Mitral; Repair Mitral Valve Status Post Discharge Disposition: Home or Self Care 03/13/2024 10:00 AM CDT Comprehensive Visit Department of Cardiovascular Medicine in [place], [place] [address] [place] [phone] Loraine Thakkar M.D. Atrial Fibrillation Unspecified (HCC); Regurgitation Mitral 03/07/2024 1:00 PM CDT Clinical Communication Virtual Review in [place], [place] [address] [place] [address] 02/27/2024 Refill Department of Cardiovascular Medicine in [place], [place] [address] [place] [phone] Flo Nazario M.D. Med Refill (Xarelto ) 01/26/2024 Orders Only Department of Oncology in [address] [phone] Birdie Hurtado M.D. Malignant Neoplasm Of Lung [...] (71.5 mg total) by mouth daily. 01/10/20 Active tamsulosin (FLOMAX) 0.4 mg 24 hr capsule 0.4 mg daily. 01/15/20 Active Calquence, acalabrutinib mal, 100 mg tablet Take 100 mg by mouth 2 (two) times a day. 10/07/19 Active ferrous sulfate 325 mg (65 mg iron) DR tablet Take 325 mg by mouth. 12/24/19 Active levothyroxine (SYNTHROID, LEVOTHROID) 50 mcg tablet [...] 180 tablet 3 04/13/20 23 024 Discontin ued([facility]) Hospital, Clinic, or Other Facility Administered Medication [...] drink = 0.6 oz pur e alcohol) [facility] [employer] Answer Date Recorded In the past 12 months has [facility] [employer], gas, oil, or water [email or web address] threatened to shut off services in your [...] week 06/30/2021 How often do you attend bahai or islam serv ices? Never 06/30/2021 Do you belong to any clubs o r organizations such as bahai groups, unions, fraternal or athletic groups, or [...] and heating? Not hard at all 06/30/2021 [facility] [place] [facility] Occupat ional Health - Occupational Stress [...] your living situation today? I have a [facility] place to live 01/13/2024 Education Answer Date Recorded What is the highest level of school you have completed or the highest degree you have received? Professional school degree (e.g., MD, DDS, DVM, GRACIELA) 06/30/2021 Sex and Gender Information Value Date Recorded Sex Assigned at Male 06/30/2021 12:19 PM EMS DIRECTOR Legal Sex Male 7:31 AM CDT Gender Identity Male 06/30/2021 12:19 PM EMS DIRECTOR Sexual Orientation Straight 06/30/2021 12 :19 PM EMS DIRECTOR Last Filed Vital Signs Vital Sign Reading Time Taken Comments Blood Pressure 166/75 03/13/2024 9:49 AM CDT Avg of 3 Pulse 64 03/13/2024 9:49 AM CDT Temperature 36.6 C (97.9 F) 05/03/2023 3:58 PM EMS DIRECTOR Respiratory Rate 16 01/13/2024 12:18 PM CDT Oxygen Saturation 95% 01/13/2024 12:20 PM CDT Inhaled Oxygen Concentration - - Weight 76 kg (167 lb 8.8 oz) 03/13/2024 9:49 AM CDT Height 178.2 cm (5' 10.16) 03/13/2024 9:49 AM CDT Body Mass Index 23.93 03/13/2024 9:49 AM CDT Plan of Treatment Not on file Medical Devices Implanted Type Area Painter Railroad Car Device Identifier Shelf Expiration Date Model / Serial / Lot Clp Tania Clip Del Sys Xtr - [id number] Implanted:Qty : 1 on 06/28/2019 by Hernandez Echevarria M.D. 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 Birdie Hurtado M.D. [facility] [place] PROCEDURES Final Result * T4 (Thyroxine), Free, Serum (03/13/2024 8:22 AM CDT) T4 (Thyroxine), Free, S 1.7 0.9 - 1.7 ng/dL 03/13/2024 10:55 AM CDT DTL Blood 03/13/2024 8:22 AM CDT 03/13/2024 9:03 AM CDT us Marilu Castaneda P.A.-C., M.S. LAB BLOOD ADD-ON Fi nal Result [facility] [address] [place] [address], [facility] [address] [place] [address] * (ABNORMAL) Lipid Panel (03/13/2024 8:22 AM [...] ADD-ON Final Resul t Performing Organization Address [facility] Co de Phone Number [facility] [address] DTL [facility] [address] [place] [address] * (ABNORMAL) Morphology Eval (special smear) (03/13/2024 [...] - 6.45 x10(9)/L 03/13/2024 11:06 AM CDT [facility] Comment: ----ADDITIONAL INFORMATION---- The manual absolute neutrophil count is derived from a manual differential count and therefore is not exactly comparable to the automated absolute neutrophil count. Interpretation See Comment 11:06 AM CDT [facility] Comment: The blood smear findings are consistent with the previous diagnosis of chronic lymphocytic leukemia. Reviewed by: Odalis 03/13/2024 11:06 AM CDT [facility] Blood 03/13/2024 8:22 AM CDT 03/13/2024 8:47 AM CDT us Loraine Thakkar M.D. LAB BLOOD ADD-ON Final Resul t Performing Organization Address City/[facility] Co de Phone Number [facility] [address] [place] [address] * (ABNORMAL) Thyroid Function [place] (03/13/2024 8:22 AM CDT) TSH, Sensitive 10.0(H) 0.3 - 4.2 mIU/L 03/13/2024 10:34 AM CDT DTL Blood (Blood, Venous) 03/13/2024 8:22 AM CDT 03/13/2024 9:03 AM CDT us Marilu Castaneda P.A.-C., M.S. LAB BLOOD ADD-ON Fi nal Result Performing Organization Address [facility] de Phone Number [facility] [address] [place] [address] * (ABNORMAL) NT-Pro B-Type Natriuretic Peptide (BNP) (03/13/2024 8:22 AM CDT) Pathologist [facility] NT-Pro BNP 974(H) <=540 pg/mL 03/13/2024 10:34 AM CDT DT Comment: NT-proBNP values less than 300 pg/mL [...] ADD-ON Final Resul t Performing Organization Address [facility] Co de Phone Number [facility] [address] [place] [address] * Thyroperoxidase (TPO) Antibodies (03/13/2024 8:22 AM CDT) [facility] Thyroperoxidase Ab, S <15.0 <34.0 IU/mL 03/13/2024 10:55 AM CDT DT Blood 03/13/2024 8:22 AM CDT 03/13/2024 9:03 AM CDT Marilu Castaneda P.A.-C., M.S. LAB BLOOD ADD-ON Fi nal Result [address] [place] [address] * (ABNORMAL) Prothrombin Time (PT) (03/13/2024 8:22 AM CDT) [facility] Prothrombin Time, P 27.6(H) 9.4 - 12.5 sec 03/13/2024 9:06 AM CDT DT INR 2.5 0.9 - 1.1 03/13/2024 9:06 AM CDT DT Comment: ----ADDITIONAL INFORMATION---- Standard intensity warfarin therapeutic range: 2.0 to 3.0 High intensity warfarin therapeutic range: 2.5 to 3.5 Blood (Blood, Venous) 03/13/2024 8:22 AM CDT 03/13/2024 8:47 AM CDT us Loraine Thakkar M.D. LAB BLOOD [place] [address] * (ABNORMAL) CBC with Differential, Blood (03/13/2024 [...] - 6.45 x10(9)/L 03/13/2024 11:05 AM CDT [facility] Comment:Auto-diff results no t valid. See manual differential. Blood (Blood, Venous) 03/13/2024 8:22 AM CDT 03/13/2024 8:47 AM CDT us Loraine Thakkar M.D. LAB BLOOD ADD-ON Final Resul t [facility] [address] [place] [address], [facility] DTL [facility] [address] [place], [place] [address] [place] [address] [place] [address] * Glucose, Fasting (03/13/2024 8:22 AM CDT) Pathologist [facility] Glucose, P 90 70 - 100 mg/dL 03/13/2024 9:17 AM CDT DTL Last Intake 11 hr 03/13/2024 8:59 AM CDT DTL Blood (Blood, Venous) 03/13/2024 8:22 AM CDT 03/13/2024 8:59 AM CDT us Loraine Thakkar M.D. LAB BLOOD NON ADD-ON Final R esult [facility] [address] [place] [address], [facility] DTL [facility] [address] [place] [address] * (ABNORMAL) Comprehensive Metabolic Panel (03/13/2024 8:22 AM CDT) Pathologist [facility] Potassium, S 4.3 3.6 - 5.2 mmol/L [...] M.S. LAB BLOOD ADD-ON Fi nal Result [facility] [address] [place] [address], [facility] DTL [facility] [address] [place] [address] * DX Chest AP or PA and [...] artery calcification. Hypertrophic changes in the spine. Marilu Castaneda P.A.-C. M.S. IMG DIAGNOSTIC IMAG ING PROCEDURES Final Result from Last 3 Months Additional Health Concerns Infection Onset Date Last Indicated Protective Environment 09/20/2022 3 Insurance MEDICARE [facility] Advance Directives For more information, please contact: [phone] * Full Code (Latest Code Status on File) Date Activated Date Inactivated Comments 01/06/2022 5:12 PM 01/09/2022 4:47 PM Question Answer Comments Full Code: Discussed * Full Code Date Activated Date Inactivated Comments 06/28/2019 12:14 PM 06/29/2019 2:37 PM Question Answer Comments Full Code: Discussed Care Teams Foundry Metallurgist Relationship Specialty Start Date End Date Elsewhere, Pcp PCP - General Core Extruder 06/27/19
--- OUTSIDE RECORDS SUMMARY | 2024-04-25 12:30 | XMS_ITS ---
Author Organization [facility] Address [address] [place] [address] Care Team Providers Care Mold Capper Helper Name Role Phone Elsewhere, Pcp Primary Care Provider Unavailabl e Active Problems * This document contains information received from the source organization and may not represent a complete record from that organization. Problem Noted Date Diagnosed Date Malignant Neoplasm [...] treatments are documented for this patient in Psychiatric. Treatments may have been administered in another system.
--- OUTSIDE RECORDS SUMMARY | 2024-04-25 12:30 | XMS_ITS ---
Author Organization [facility] Address [address] [place] [address] Care Team Providers Care Cosmetic Sales Advisor Name Role Phone Unavailable Unavailable Unavailable Surgery Details Not on file Complications Check Surgery Details section. Procedure Estimated Blood Loss Check Surgery Details section. Procedure Findings Check Surgery Details section. Procedure Specimens Taken Check Surgery Details section.
--- OUTSIDE RECORDS SUMMARY | 2024-04-25 12:31 | XMS_ITS | Encounter Summary ---
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 [address] [place] [address] Phone: tel: fax: [facility] Referral ID Status Reason Start Date Expiration Date Visits Re quested Visits Authorized [id number] Closed 01/26/2024 01/25/2025 1 1 Encounter Details Date Type Department Care Team (Latest Contact Info) Description 03/26/2024 10:56 AM CDT - 03/26/2024 11:59 PM CDT Hospital Encounter Department of Radiology, [place], in [place], [place] [address] [place] [address] Birdie Hurtado M.D. [address] [place] [address] Malignant Neoplasm Of Lung Squamous Cell Right (HCC) Discharge Disposition: Home or Self Care Social History Tobacco Use Types Packs/Day Years Used Date Smoking Tobacco: Never Smokeless Tobacco: Never Alcohol Use Standard Drinks/Week Comments Never 0 (1 standard drink = 0.6 oz pur e alcohol) [facility] Utilities Answer Date Recorded In the past 12 months has e electric, gas, oil, or water company [...] week 06/30/2021 How often do you attend anabaptist or judaism serv ices? Never 06/30/2021 Do you belong to any clubs o r organizations such as anabaptist groups, unions, fraternal or athletic groups, or [...] and heating? Not hard at all 06/30/2021 [facility] - Occupational Stress Questionnaire Answer Date [...] your living situation today? I have a [facility] place to live 01/13/2024 Education Answer Date Recorded What is the highest level of school you have completed or the highest degree you have received? Professional school degree (e.g., MD, DDS, DVM, GRACIELA) 06/30/2021 Sex and Gender Information Value Date Recorded Sex Assigned at Male 06/30/2021 12:19 PM COMMERCIAL UNDERWRITER Legal Sex Male 7:31 AM CDT Gender Identity Male 06/30/2021 12:19 PM COMMERCIAL UNDERWRITER Sexual Orientation Straight 06/30/2021 12 :19 PM COMMERCIAL UNDERWRITER documented as of this encounter Medications at Time of Discharge ALPRAZolam (XANAX) 0.25 mg tablet Take 0.125 [...] chewable tablet Chew 1 tablet as needed. Calquence, acalabrutinib mal, 100 mg tablet Take 100 mg by mouth 2 (two) times a day. 10/06/2022 famotidine (PEPCID) 20 mg tablet Take 20 mg by mouth daily. ferrous sulfate 325 mg (65 mg iron) DR tablet Take 325 mg by mouth. 12/23/2022 furosemide (Lasix) 20 mg tablet Take 1 tablet (20 mg total) by mouth as needed (weight increase 2 lb, edema, or shortness of breath). 30 tablet 1 01/13/2024 iron,carbonyl-vitam in C (Vitron-C) 65 mg iron- [address] tablet Take 65 mg of iron by mouth daily. Do not crush or chew. lisinopriL 10 mg tablet Take 1.5 tablets (15 mg total) by mouth 2 (two) times a day. 270 tablet 3 01/13/2024 magnesium chloride (Slow-Mag) 71.[address] tablet Take 1 tablet (71.5 mg total) by mouth daily. 01/09/2022 metoprolol succinate (TOPROL-XL) 25 mg 24 hr tablet 04/14/2023 omeprazole (PriLOSEC) [address] capsule Take 40 mg by mouth. 12/14/2022 oxyCODONE (ROXICODONE) 5 mg immediate release tabletIndications:C hronic Pain/Nonacute Pain Take 1-2 tablets (5-10 mg total) by mouth every 4 (four) hours as needed for moderate pain or score 4-6 of 10 Indication: Chronic Pain/Nonacute Pain. 30 tablet 06/01/2023 rivaroxaban (Xarelto) 20 mg tabletIndications:A trial Fibrillation Longstanding Persistent (HCC) Take 1 tablet (20 mg total) by mouth daily with evening meal. 90 tablet 3 02/28/2024 tamsulosin (FLOMAX) 0.4 mg 24 hr capsule 0.4 mg daily. 01/14/2022 metoprolol tartrate (LOPRESSOR) 25 mg tablet Take 1 tablet (25 mg total) by mouth 2 (two) times a day. 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 Birdie Hurtado M.D. 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) documented in this encounter Administered Medications Inactive Administered Medications - up to 3 most recent administrations Medication Order MAR Action Action Date Dose Rate Site fludeoxyglucose F 18 injection MCC (FDG F-18) 4.5-16.5 millicurie, intravenous, Once, On 03/26/24 at 1215, For 1 dose, Imaging Protocol Orders Given 03/26/2024 11:45 AM CDT 9.92 millicuries documented in this encounter Additional Health Concerns Infection Onset Date Last Indicated Resolved Time Protective Environment 09/20/2022 09/20/2022 Assessment Noted Time PHQ-9 Depression Total Score: 6 07/17/19 20 10:26 AM COMMERCIAL UNDERWRITER documented as of this encounter Care Teams Watch Leader Relationship Specialty Start Date End Date Elsewhere, Pcp PCP - General Scaffold Builder 06/27/19 documented as of this encounter
--- OUTSIDE RECORDS SUMMARY | 2024-04-25 12:31 | XMS_ITS | Encounter Summary ---
Author Organization [facility] Address [address] [place] [address] Care Team Providers Care Closet Builder Name Role Phone Elsewhere, Pcp Primary Care Provider Unavailabl e Reason for Visit * Reason Onset Date Comments Med Refill 04/09/2024 Encounter Details Date Type Department Care Team (Late st Contact Info) Description 04/09/2024 Refill Department of Cardiovascular Medicine in [place], [place] [address] [place] [address] Ron Santana M.D., Ph.D. [address] [place] [address] Med Refill Social History Tobacco Use Types Packs/Day Years Used Date Smoking Tobacco: Never Smokeless Tobacco: Never Alcohol Use Standard Drinks/Week Comments Never 0 (1 standard drink = 0.6 oz pur e alcohol) [facility] Utilities Answer Date Recorded In the past 12 months has [facility] [employer], gas, oil, or water [employer] threatened to shut off services in your [...] How often do you attend yazdanism or roman catholic serv ices? Never 06/30/2021 [...] your living situation today? I have a [facility] place to live 01/13/2024 Education Answer Date Recorded What is the highest level of school you have completed or the highest degree you have received? Professional school degree (e.g., MD, DDS, DVM, GRACIELA) 06/30/2021 Sex and Gender Information Value Date Recorded Sex Assigned at Male 06/30/2021 12:19 PM THEATRE ARTS PROFESSOR Legal Sex Male 7:31 AM CDT Gender Identity Male 06/30/2021 12:19 PM THEATRE ARTS PROFESSOR Sexual Orientation Straight 06/30/2021 12 :19 PM THEATRE ARTS PROFESSOR documented as of this encounter Plan of Treatment Not on file documented as of this encounter Visit Diagnoses Not on filedocumented in this encounter Additional Health Concerns Infection Onset Date Last Indicated Resolved Time Protective Environment 09/20/2022 09/20/2022 Assessment Noted Time PHQ-9 Depression Total Score: 6 07/17/19 20 10:26 AM THEATRE ARTS PROFESSOR documented as of this encounter Care Teams Closet Builder Relationship Specialty Start Date End Date Elsewhere, Pcp PCP - General Unit Control Worker 06/27/19 documented as of this encounter
--- OUTSIDE RECORDS SUMMARY | 2024-04-25 12:31 | XMS_ITS | Encounter Summary ---
Author Organization [facility] Address [address] [place] [address] Care Team Providers Care Aadc Plans Staff Officer Name Role Phone Elsewhere, Pcp Primary Care Provider Unavailabl e Encounter Details Date Type Department Care Team (Late st Contact Info) Description 03/29/2024 Orders Only Department of Oncology in [place], [place] [address] [place] [phone] Birdie Hurtado M.D. [address] [place] [phone] Social History Tobacco Use Types Packs/Day Years Used Date Smoking Tobacco: Never Smokeless Tobacco: Never Alcohol Use Standard Drinks/Week Comments Never 0 (1 standard drink = 0.6 oz pur e alcohol) [facility] Utilities Answer Date Recorded In the past 12 months has [facility] [employer], gas, oil, or water [employer] threatened to shut off services in your [...] How often do you attend spiritism or gnosticism serv ices? Never 06/30/2021 Do you belong [...] and heating? Not hard at all 06/30/2021 [facility] of Occupat ional Health - Occupational [...] your living situation today? I have a [facility] place to live 01/13/2024 Education Answer Date Recorded What is the highest level of school you have completed or the highest degree you have received? Professional school degree (e.g., MD, DDS, DVM, GRACIELA) 06/30/2021 Sex and Gender Information Value Date Recorded Sex Assigned at Male 06/30/2021 12:19 PM TINNING EQUIPMENT TENDER Legal Sex Male 7:31 AM CDT Gender Identity Male 06/30/2021 12:19 PM TINNING EQUIPMENT TENDER Sexual Orientation Straight 06/30/2021 12 :19 PM TINNING EQUIPMENT TENDER documented as of this encounter Plan of Treatment Not on file documented as of this encounter Visit Diagnoses Not on filedocumented in this encounter Additional Health Concerns Infection Onset Date Last Indicated Resolved Time Protective Environment 09/20/2022 09/20/2022 Assessment Noted Time PHQ-9 Depression Total Score: 6 07/17/19 20 10:26 AM TINNING EQUIPMENT TENDER documented as of this encounter Care Teams Aadc Plans Staff Officer Relationship Specialty Start Date End Date Elsewhere, Pcp PCP - General Visual Arts Teacher 06/27/19 documented as of this encounter
--- OUTSIDE RECORDS SUMMARY | 2024-04-25 12:31 | XMS_ITS | Encounter Summary ---
Author Organization [facility] Address [address] [place] [id number] Care Team Providers Care Franchise Broker Name Role Phone Elsewhere, Pcp Primary Care Provider Unavailabl e Reason for Visit * Reason Onset Date Comments Triage 01/16/2024 Encounter Details Date Type Department Care Team (Latest Contact Info) Description 01/16/2024 Clinical Communication Department of Cardiovascular Medicine in [place], [place] [address] [place] [address] Maggi Robles R.N. [address] [place] [address] Triage Social History Tobacco Use Types Packs/Day Years Used Date Smoking Tobacco: Never Smokeless Tobacco: Never Alcohol Use Standard Drinks/Week Comments Never 0 (1 standard drink = 0.6 oz pur e alcohol) [facility] Utilities Answer Date Recorded In the past 12 months has [facility] [employer], gas, oil, or water [employer] threatened to shut off services in your [...] How often do you attend amish or jainism serv ices? Never 06/30/2021 Do you belong [...] and heating? Not hard at all 06/30/2021 [facility] of Occupat ional Health - Occupational [...] your living situation today? I have a [facility] place to live 01/13/2024 Education Answer Date Recorded What is the highest level of school you have completed or the highest degree you have received? Professional school degree (e.g., MD, DDS, DVM, GRACIELA) 06/30/2021 Sex and Gender Information Value Date Recorded Sex Assigned at Male 06/30/2021 12:19 PM OPERATIONS SUPPORT SPECIALIST Legal Sex Male 7:31 AM CDT Gender Identity Male 06/30/2021 12:19 PM OPERATIONS SUPPORT SPECIALIST Sexual Orientation Straight 06/30/2021 12 :19 PM OPERATIONS SUPPORT SPECIALIST documented as of this encounter Miscellaneous Notes [...] documented in this encounter Plan of Treatment Not on file documented as of this encounter Visit Diagnoses Not on filedocumented in this encounter Additional Health Concerns Infection Onset Date Last Indicated Resolved Time Protective Environment 09/20/2022 09/20/2022 Assessment Noted Time PHQ-9 Depression Total Score: 6 07/17/19 20 10:26 AM OPERATIONS SUPPORT SPECIALIST documented as of this encounter Care Teams Franchise Broker Relationship Specialty Start Date End Date Elsewhere, Pcp PCP - General Coffee Grinder 06/27/19 documented as of this encounter
--- OUTSIDE RECORDS SUMMARY | 2024-04-25 12:31 | XMS_ITS | Encounter Summary ---
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 [address] [place] [address] Phone: tel: fax: [facility] Referral ID Status Reason Start Date Expiration Date Visits Re quested Visits Authorized [id number] Closed 01/26/2024 01/25/2025 1 1 Encounter Details Date Type Department Care Team (Late st Contact Info) Description 01/26/2024 Orders Only Department of Oncology in [place], [place] [address] [place] [phone] Birdie Hurtado M.D. 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 Never 06/30/2021 Do you belong to any clubs o r organizations such as restoration groups, unions, fraternal or athletic groups, or [...] heating? Not hard at all 06/30/2021 [facility] [place] of Occupat ional Health - Occupational Stress [...] living situation today? I have a [facility] place to live 01/13/2024 Education Answer Date Recorded What is the highest level of school you have completed or the highest degree you have received? Professional school degree (e.g., MD, DDS, DVM, GRACIELA) 06/30/2021 Sex and Gender Information Value Date Recorded Sex Assigned at Male 06/30/2021 12:19 PM SPECIAL EDUCATION TUTOR Legal Sex Male 7:31 AM CDT Gender Identity Male 06/30/2021 12:19 PM SPECIAL EDUCATION TUTOR Sexual Orientation Straight 06/30/2021 12 :19 PM SPECIAL EDUCATION TUTOR documented as of this encounter Plan of Treatment Not on file documented as of this encounter Results * PET CT Skull [...] RADIOPHARMACEUTICAL/MEDS: Route: intravenous fludeoxyglucose F 18 injection [facility] (FDG F-18),9.92 millicurie TECHNIQUE: F-18 FDG PET/CT [...] RADIOPHARMACEUTICAL/MEDS: Route: intravenous fludeoxyglucose F 18 injection [facility] (FDG F-18),9.92 millicurie TECHNIQUE: F-18 FDG PET/CT [...] detailed in the findings. Birdie Hurtado M.D. 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
--- OUTSIDE RECORDS SUMMARY | 2024-04-25 12:31 | XMS_ITS | Encounter Summary ---
Author Organization [facility] Address [address] [place] [address] Care Team Providers Care Window And Siding Craftsman Name Role Phone Elsewhere, Pcp Primary Care Provider Unavailabl e Reason for Referral * Outpatient (Routine) - Closed Specialty Diagnoses / Procedures Referred By Oliverio akers Referred To Contact Diagnoses Atrial Fibrillation Unspecified (HCC) Regurgitation Mitral Procedures DX Chest AP or PA and Lateral 2 Views Marilu Castaneda P.A.-C., M.S. [address] [place] [address] Phone: tel: fax: [facility] Referral ID Status Reason Start Date Expiration Date Visits Re quested Visits Authorized [id number] Closed 01/13/2024 01/12/2025 1 1 Reason for Visit * Outpatient (Routine) - Closed Specialty Diagnoses / Procedures Referred By Oliverio akers Referred To Contact Diagnoses Atrial Fibrillation Unspecified (HCC) Regurgitation Mitral Procedures DX Chest AP or PA and Lateral 2 Views Marilu Castaneda P.A.-C., M.S. [address] [place] [address] Phone: tel: fax: [facility] Referral ID Status Reason Start Date Expiration Date Visits Re quested Visits Authorized [id number] Closed 01/13/2024 01/12/2025 1 1 Encounter Details Date Type Department Care Team (Latest Contact Info) Description 03/13/2024 7:54 AM CDT - 03/13/2024 8:11 AM CDT Hospital Encounter Department of Radiology, [facility], in [place], [place] [address] [place] [address] Marilu Castaneda P.A.-C., M.S. [address] [place] [address] Atrial Fibrillation Unspecified (HCC); Regurgitation Mitral Discharge Disposition: Home or Self Care Social History Tobacco Use Types Packs/Day Years Used Date Smoking Tobacco: Never Smokeless Tobacco: Never Alcohol Use Standard Drinks/Week Comments Never 0 (1 standard drink = 0.6 oz pur e alcohol) [facility] Utilities Answer Date Recorded In the past 12 months has e [employer], gas, oil, or water [employer] threatened to shut off services in your [...] How often do you attend hoahaoism or hinduism serv ices? Never 06/30/2021 Do you belong [...] and heating? Not hard at all 06/30/2021 [facility] [place] of Occupat ional Health - Occupational Stress [...] Date Recorded Dental: Regular Dentist Yes 06/30/19 22 Employment Answer Date Recorded Employment status Retired 01/13/2024 Housing Stability Answer Date Recorded What is your living situation today? I have a [facility] place to live 01/13/2024 Education Answer Date Recorded What is the highest level of school you have completed or the highest degree you have received? Professional school degree (e.g., MD, DDS, DVM, GRACIELA) 06/30/2021 Sex and Gender Information Value Date Recorded Sex Assigned at Male 06/30/2021 12:19 PM PATIENT REGISTRAR Legal Sex Male 7:31 AM CDT Gender Identity Male 06/30/2021 12:19 PM PATIENT REGISTRAR Sexual Orientation Straight 06/30/2021 12 :19 PM PATIENT REGISTRAR documented as of this encounter Medications at [...] Procedure Name Priority Date/Time Associated Diagnosis Comments DX CHEST AP OR PA AND LATERAL 2 VIEWS RAD - Routine (most inpatients and all outpatients) 03/13/2024 8:04 AM CDT Atrial Fibrillation Unspecified (HCC) Regurgitation Mitral documented in this encounter Results * DX Chest AP or PA and [...] PA AND LATERAL 2 VIEWS Procedure Note Shubham, Zion F, M.D. - 03/13/2024 EXAM: DX CHEST AP OR PA AND LATERAL 2 VIEWS IMPRESSION: Since 12/09/2022, new small left and tiny right pleural effusions. Increasedatelectasis in the lower lungs. Increased pulmonary vascular congestion.Normal cardiac silhouette size. Mitral clip. Calcified tortuous aorta.Coronary artery calcification. Hypertrophic changes in the spine. Marilu Castaneda P.A.-C., M.S. [facility] PROCEDURES Final Result documented in this encounter Visit Diagnoses Diagnosis Atrial Fibrillation Unspecified (HCC) Regurgitation Mitral documented in this encounter Additional Health Concerns Infection Onset Date Last Indicated Resolved Time Protective Environment 09/20/2022 09/20/2022 Assessment Noted Time PHQ-9 Depression Total Score: 6 07/17/19 20 10:26 AM PATIENT REGISTRAR documented as of this encounter Care Teams Window And Siding Craftsman Relationship Specialty Start Date End Date Elsewhere, Pcp PCP - General Tetryl Nitrator Operator 06/27/19 documented as of this encounter
--- OUTSIDE RECORDS SUMMARY | 2024-04-25 12:31 | XMS_ITS | Encounter Summary ---
Author Organization [facility] Address [address] [place] [address] Care Team Providers Care Battery Test Engineer Name Role Phone Elsewhere, Pcp Primary Care Provider Unavailabl e Encounter Details Date Type Department Care Team (Late st Contact Info) Description 03/21/2024 9:30 AM CDT Immunization Section of Infectious Diseases in [place], [place] [address] [place] [address] Social History Tobacco Use Types Packs/Day Years Used Date Smoking Tobacco: Never Smokeless Tobacco: Never Alcohol Use Standard Drinks/Week Comments Never 0 (1 standard drink = 0.6 oz pur e alcohol) [facility] Utilities Answer Date Recorded [...] How often do you attend restoration or adventism serv ices? Never 06/30/2021 Do [...] and heating? Not hard at all 06/30/2021 [facility] of Occupat ional Health - Occupational Stress [...] your living situation today? I have a [facility] place to live 01/13/2024 Education Answer Date Recorded What is the highest level of school you have completed or the highest degree you have received? Professional school degree (e.g., MD, DDS, DVM, GRACIELA) 06/30/2021 Sex and Gender Information Value Date Recorded Sex Assigned at Male 06/30/2021 12:19 PM WOODEN FENCE ERECTOR Legal Sex Male 7:31 AM CDT Gender Identity Male 06/30/2021 12:19 PM WOODEN FENCE ERECTOR Sexual Orientation Straight 06/30/2021 12 :19 PM WOODEN FENCE ERECTOR documented as of this encounter Plan of Treatment Not on file documented as of this encounter Visit Diagnoses Not on filedocumented in this encounter Additional Health Concerns Infection Onset Date Last Indicated Resolved Time Protective Environment 09/20/2022 09/20/2022 Assessment Noted Time PHQ-9 Depression Total Score: 6 07/17/19 20 10:26 AM WOODEN FENCE ERECTOR documented as of this encounter Care Teams Battery Test Engineer Relationship Specialty Start Date End Date Elsewhere, Pcp PCP - General Cartridge Filler 06/27/19 documented as of this encounter
--- OUTSIDE RECORDS SUMMARY | 2024-04-25 12:31 | XMS_ITS | Clinical Summary ---
Author Organization [facility] Address [place], [place] [address] Care Team Providers Care Bundle Person Name Role Phone Nikki Reilly DO Primary Care Provider [phone] Allergies Active Allergy Reactions Criticality Noted Date [...] Resolved Date Paroxysmal ventricular tachycardia 09/16/2008 03/15/2019 Immunizations Name Administration Dates Next Due AMB [...] Comments Blood Pressure 158/84 07/08/2023 11:24 AM RUBBER ATTACHER Pulse 72 07/08/2023 11:24 AM RUBBER ATTACHER Temperature 36.9 C (98.4 F) 04/23/2020 11:09 AM RUBBER ATTACHER Respiratory Rate 16 03/20/2020 2:20 PM CDT Oxygen Saturation 99% 07/08/2023 11:24 AM RUBBER ATTACHER Inhaled Oxygen Concentration - - Weight 79.8 kg (176 lb) 07/08/2023 11:24 AM RUBBER ATTACHER Height 175.2 cm (5' 8.98) 12/23/2022 9:23 AM CD T Body Mass Index 26.01 12/23/2022 9:23 AM CDT Plan of Treatment Health Maintenance Due Date Last Done Comments Zoster (shingles) series for age 50+ (1 of 2) 12/07/2010 10/12/2010 RSV vaccine for adults or (1 - 1-dose 75+ series) 2020 Tetanus booster 09/11/2022 09/11/2012, 01/04, 01/19/2006 BMI (ht and wt on same day) for age 18+ 12/24/2023 12/23/2022, 04/23/2020, 07/04/2019, Additional history exists Depression screening for age 12+ 12/24/2023 12/23/2022, 08/18/2018, 08/16/2018, Additional history exists Medicare Wellness for age 65+ 12/24/2023, 03/09/2018, 02/16/2017, Additional history exists COVID-19 vaccine series ( season) 2024 03/02/2022, 09/29/2021, 02/17/2021, Additional history exists Influenza for age 65+ 02/05/2024 04/02/2022 , 02/28/2020, 02/12/2019, Additional history exists Tdap Completed 09/11/2012 Pneumococcal series for age 65+ Completed 5, 10/12/2010 Hepatitis C screening for ag e 18-79 Completed 03/09/2018 Procedures Procedure Name Priority Date/Time Associated Diagnosis Comments ANTI HCV Routine 03/09/2018 10:39 AM CDT Need for hepatitis C screening test from Last 3 Months or Most Recently Relevant to Health Maintenance Results * ANTI HCV [[id number]] (03/09/2018 10:39 AM CDT) HEPATITIS C ANTIBODY Non-React [place] Non-React [place] 03/09/2018 5:05 PM CDT [facility] Comment:Antibodies to HCV no t detected; does not exclude the possibility of exposure to HCV. Blood BLOOD SPECIMEN / Unknown Venipuncture / Unknown 03/09/2018 10:39 AM CDT 03/09/2018 10:39 AM CDT Ron Garcia MD SEND OUTS [facility] [address] [place] [address], from Last 3 Months or Most Recently Relevant to Health Maintenance Advance Directives * Full Code (Latest Code Status on File) Date Activated Date Inactivated Comments 11/22/2011 11:07 AM 11/22/2011 3:00 PM * Full Code Date Activated Date Inactivated Comments 11/22/2011 9:03 AM 11/22/2011 11:07 AM Care Teams Bundle Person Relationship Specialty Start Date End Date Nikki [place] [address] [place] [address] PCP - General Family Practice 12/15/22
--- OUTSIDE RECORDS SUMMARY | 2024-04-25 12:31 | XMS_ITS | Encounter Summary ---
Author Organization [facility] Address [address] [place] [address] Care Team Providers Care President & Ceo Name Role Phone Elsewhere, Pcp Primary Care Provider Unavailabl e Encounter Details Date Type Department Care Team (Latest Contact Info) Description 03/07/2024 1:00 PM CDT Clinical Communication Virtual Review in [place], [place] [address] [place] [phone] Social History Tobacco Use Types Packs/Day Years Used Date Smoking Tobacco: Never Smokeless Tobacco: Never Alcohol Use Standard Drinks/Week Comments Never 0 (1 standard drink = 0.6 oz pur e alcohol) [facility] Utilities Answer Date Recorded In the [...] week 06/30/2021 How often do you attend samaritan or mormon serv ices? Never 06/30/2021 Do you belong to any clubs o r organizations such as samaritan groups, unions, fraternal or athletic groups, or [...] heating? Not hard at all 06/30/2021 [facility] [...] your living situation today? I have a [facility] place to live 01/13/2024 Education Answer Date Recorded What is the highest level of school you have completed or the highest degree you have received? Professional school degree (e.g., MD, DDS, DVM, GRACIELA) 06/30/2021 Sex and Gender Information Value Date Recorded Sex Assigned at Male 06/30/2021 12:19 PM DIGITAL COMMUNITY MANAGER Legal Sex Male 7:31 AM CDT Gender Identity Male 06/30/2021 12:19 PM DIGITAL COMMUNITY MANAGER Sexual Orientation Straight 06/30/2021 12 :19 PM DIGITAL COMMUNITY MANAGER documented as of this encounter Plan of Treatment Not on file documented as of this encounter Visit Diagnoses Not on filedocumented in this encounter Additional Health Concerns Infection Onset Date Last Indicated Resolved Time Protective Environment 09/20/2022 09/20/2022 Assessment Noted Time PHQ-9 Depression Total Score: 6 07/17/19 20 10:26 AM DIGITAL COMMUNITY MANAGER documented as of this encounter Care Teams President & Ceo Relationship Specialty Start Date End Date Elsewhere, Pcp PCP - General [employer] Driver 06/27/19 documented as of this encounter
--- OUTSIDE RECORDS SUMMARY | 2024-04-25 12:31 | XMS_ITS | Encounter Summary ---
Author Organization [facility] Address [address] [place] [address] Care Team Providers Care Lawnmower Repair Mechanic Name Role Phone Elsewhere, Pcp Primary Care Provider Unavailabl e Encounter Details Date Type Department Care Team (Latest Contact Info) Description 03/13/2024 8:12 AM CDT - 03/13/2024 11:59 PM CDT Hospital Encounter Department of Laboratory Medicine and Pathology, [facility], in [place], [place] [address] [place] [phone] Loraine Thakkar M.D. [address] [place] [phone] Atrial Fibrillation Unspecified (HCC); Regurgitation Mitral; Repair Mitral Valve Status Post Discharge Disposition: Home or Self Care Social History Tobacco Use Types Packs/Day Years Used Date Smoking Tobacco: Never Smokeless Tobacco: Never Alcohol Use Standard Drinks/Week Comments Never 0 (1 standard drink = 0.6 oz pur e alcohol) [facility] Utilities Answer Date Recorded In the past 12 months has [employer], gas, oil, or water [employer] threatened to shut off services in your [...] How often do you attend pentecostalism or mandaeism serv ices? Never 06/30/2021 Do you belong [...] hard at all 06/30/2021 [facility] Occupational Stress Questionnaire Answer Date [...] your living situation today? I have a [facility] place to live 01/13/2024 Education Answer Date Recorded What is the highest level of school you have completed or the highest degree you have received? Professional school degree (e.g., MD, DDS, DVM, GRACIELA) 06/30/2021 Sex and Gender Information Value Date Recorded Sex Assigned at Male 06/30/2021 12:19 PM ENTEROSTOMAL THERAPY NURSE Legal Sex Male 7:31 AM CDT Gender Identity Male 06/30/2021 12:19 PM ENTEROSTOMAL THERAPY NURSE Sexual Orientation Straight 06/30/2021 12 :19 PM ENTEROSTOMAL THERAPY NURSE documented as of this encounter Medications at [...] Procedure Name Priority Date/Time Associated Diagnosis Comments FL T4 FREE Routine 03/13/2024 8:22 AM CDT LIPID PANEL, S Routine 03/13/2024 8:22 AM CDT Regurgitation Mitral Repair Mitral Valve Status Post SPSMA RESULT Routine 03/13/2024 8:22 AM CDT THYROID FUNCTION CASCADE, S Routine 03/13/2024 8:22 AM CDT Atrial Fibrillation Unspecified (HCC) Regurgitation Mitral NT-PRO B-TYPE NATRIURETIC PEPTIDE (BNP), S Routine 03/13/2024 8:22 AM CDT Regurgitation Mitral Repair Mitral Valve Status Post THYROPEROXIDASE (TPO) ABS, S Routine 03/13/2024 8:22 AM CDT PROTHROMBIN TIME (PT), P Routine 03/13/2024 8:22 AM CDT Regurgitation Mitral Repair Mitral Valve Status Post CBC WITH DIFFERENTIAL, B Routine 03/13/2024 8:22 AM CDT Regurgitation Mitral Repair Mitral Valve Status Post GLUCOSE, FASTING, S/P Routine 03/13/2024 8:22 AM CDT Regurgitation Mitral Repair Mitral Valve Status Post COMPREHENSIVE METABOLIC PANEL, S/P Routine 03/13/2024 8:22 AM CDT Atrial Fibrillation Unspecified (HCC) Regurgitation Mitral documented in this encounter Results * (ABNORMAL) Morphology Eval (special smear) (03/13/2024 [...] - 6.45 x10(9)/L 03/13/2024 11:06 AM CDT [facility] Comment: ----ADDITIONAL INFORMATION---- The manual absolute neutrophil count is derived from a manual differential count and therefore is not exactly comparable to the automated absolute neutrophil count. Interpretation See Comment 11:06 AM CDT [facility] Comment: The blood smear findings are consistent with the previous diagnosis of chronic lymphocytic leukemia. Reviewed by: Tech 03/13/2024 11:06 AM CDT [facility] Blood 03/13/2024 8:22 AM CDT 03/13/2024 8:47 AM CDT Loraine Thakkar M.D. LAB BLOOD ADD-ON Final Resul t Performing Organization Address City/[facility]/[place] [address] * T4 (Thyroxine), Free, Serum (03/13/2024 8:22 AM CDT) T4 (Thyroxine), Free, S 1.7 0.9 - 1.7 ng/dL 03/13/2024 10:55 AM CDT DTL Blood 03/13/2024 8:22 AM CDT 03/13/2024 9:03 AM CDT us Marilu Castaneda P.A.-C., M.S. LAB BLOOD ADD-ON Fi nal Result Performing Organization Address City/[facility]/ZIP Co de Phone Number [address] [place] [address] * Thyroperoxidase (TPO) Antibodies (03/13/2024 8:22 AM CDT) Thyroperoxidase Ab, S <15.0 <34.0 IU/mL 03/13/2024 10:55 AM CDT [facility] Blood 03/13/2024 8:22 AM CDT 03/13/2024 9:03 AM CDT Marilu Castaneda P.A.-C. MBuddyS. LAB BLOOD ADD-ON Fi nal Result Performing Organization Address [facility] de Phone Number [facility] [address] [place], [place] [id number] [place] [address] 200 [place] [address] * (ABNORMAL) NT-Pro B-Type Natriuretic Peptide (BNP) [...] 8:22 AM CDT 03/13/2024 9:03 AM CDT Loriane Thakkar M.D. LAB BLOOD ADD-ON Final Resul t Performing Organization Address [facility] Co de Phone Number [facility] [address] [place], [place] [phone] [place] [address] [facility] [address] [place] [address] * (ABNORMAL) Lipid Panel (03/13/2024 8:22 AM CDT) Triglycerides 36 mg/dL 03/13/2024 10:34 AM CDT [facility] Comment: ----REFERENCE VALUE---- Normal: <150 mg/dL Borderline High: 150-199 mg/dL High: 200-499 mg/dL Very High: > or =500 mg/dL Cholesterol, Total 64 mg/dL 10/08/ 2024 10:34 AM CDT [facility] Comment: ----REFERENCE VALUE---- [...] M.D. LAB BLOOD ADD-ON Final Resul t [facility] [address] [place] [address], [facility] [address] [place] [address] * (ABNORMAL) CBC with Differential, Blood (03/13/2024 [...] - 6.45 x10(9)/L 03/13/2024 11:05 AM CDT [facility] Comment:Auto-diff results no t valid. See manual differential. Blood (Blood, Venous) 03/13/2024 8:22 AM CDT 03/13/2024 8:47 AM CDT us Loraine Thakkar M.D. LAB BLOOD ADD-ON Final Resul t [facility] [address] [place] [address], [facility] [address] [place], [place] [phone] [place] [address] [address] [place] [address] * (ABNORMAL) Prothrombin Time (PT) (03/13/2024 8:22 AM CDT) Prothrombin Time, P 27.6(H) 9.4 - 12.5 sec 03/13/2024 9:06 AM CDT DTL INR 2.5 0.9 - 1.1 03/13/2024 9:06 AM CDT [facility] Comment: ----ADDITIONAL INFORMATION---- Standard intensity warfarin therapeutic range: 2.0 to 3.0 High intensity warfarin therapeutic range: 2.5 to 3.5 Blood (Blood, Venous) 03/13/2024 8:22 AM CDT 03/13/2024 8:47 AM CDT Loraine Thakkar M.D. LAB BLOOD ADD-ON Final Resul t [facility] [address] [place] [address] * Glucose, Fasting (03/13/2024 8:22 AM CDT) Glucose, P 90 70 - 100 mg/dL 03/13/2024 9:17 AM CDT DTL Last Intake 11 hr 03/13/2024 8:59 AM CDT DTL Blood (Blood, Venous) 03/13/2024 8:22 AM CDT 03/13/2024 8:59 AM CDT us Loraine Thakkar M.D. LAB BLOOD NON ADD-ON Final R esult Performing Organization Address City/[facility] Co de Phone Number [facility] [address] [place] [address] * (ABNORMAL) Thyroid Function [place] (03/13/2024 8:22 AM CDT) TSH, Sensitive 10.0(H) 0.3 - 4.2 mIU/L 03/13/2024 10:34 AM CDT DTL Blood (Blood, Venous) 03/13/2024 8:22 AM CDT 03/13/2024 9:03 AM CDT Marilu Castaneda P.A.-C., M.S. LAB BLOOD ADD-ON Fi nal Result Performing Organization Address City/[facility]/ZIP Co de Phone Number [facility] [address] [place] [address] * (ABNORMAL) Comprehensive Metabolic Panel (03/13/2024 8:22 AM CDT) Pathologist [facility] Potassium, S 4.3 3.6 - 5.2 mmol/L [...] M.S. LAB BLOOD ADD-ON Fi nal Result [facility] [address] [place] [address], [facility] DTL [facility] [address] [place] [address] documented in this encounter Visit Diagnoses Diagnosis Atrial Fibrillation Unspecified (HCC) Regurgitation Mitral Repair Mitral Valve Status Post documented in this encounter Additional Health Concerns Infection Onset Date Last Indicated Resolved Time Protective Environment 09/20/2022 09/20/2022 Assessment Noted Time PHQ-9 Depression Total Score: 6 07/17/19 20 10:26 AM ENTEROSTOMAL THERAPY NURSE documented as of this encounter Care Teams Lawnmower Repair Mechanic Relationship Specialty Start Date End Date Elsewhere, Pcp PCP - General Body Masker 06/27/19 documented as of this encounter
--- OUTSIDE RECORDS SUMMARY | 2024-04-25 12:31 | XMS_ITS | Encounter Summary ---
Author Organization [facility] Address [address] [place] [address] Care Team Providers Care Machine Printer Hose Name Role Phone Elsewhere, Pcp Primary Care Provider Unavailabl e Reason for Referral * Outpatient (Routine) - Authorized Specialty Diagnoses / Procedures Referred By Oliverio akers Referred To Contact Cardiovascular Disease Taniya Tam APRN C.N.P., D.N.P. [address] [place] [phone] Phone: tel: fax: Hernandez Echevarria M.D. [address] [place] [phone] Phone: tel: fax: Referral ID Status Reason Start Date Expiration Date V isits Requested Visits Authorized [id number] Authorized 03/13/2024 09/12/2025 1 1 Reason for Visit * Outpatient (Routine) - Closed Specialty Diagnoses / Procedures Referred By Oliverio t Referred To Contact Cardiovascular Diseases / Cardiovascular Disease Diagnoses Atrial Fibrillation Unspecified (HCC) Regurgitation Mitral Marilu Castaneda P.A.-C., M.S. [address] [place] [phone] Phone: tel: fax: [facility] Referral ID Status Reason Start Date Expiration Date Visits Re quested Visits Authorized [id number] Closed 01/13/2024 07/14/2025 1 1 Encounter Details Date Type Department Care Team (Latest Contact Info) Description 03/13/2024 10:00 AM CDT Comprehensive Visit Department of Cardiovascular Medicine in [place], [place] [address] [place] [address] Loraine Thakkar M.D. [address] [place] [address] Atrial Fibrillation Unspecified (HCC); Regurgitation Mitral Social History Tobacco Use Types Packs/Day Years Used Date Smoking Tobacco: Never Smokeless Tobacco: Never Tobacco Cessation:Counseling Given: Not Answered Alcohol Use Standard Drinks/Week Comments Never 0 (1 standard drink = 0.6 oz pur e alcohol) [facility] Utilities Answer Date Recorded In the past 12 months has e electric, gas, oil, or water [employer] threatened to shut off services in your [...] How often do you attend restoration or amish serv ices? Never 06/30/2021 Do [...] at all 06/30/2021 [facility] ional [facility] - Occupational [...] Answer Date Recorded Dental: Regular Dentist Yes 01/25/20 22 Employment Answer Date Recorded Employment status Retired 01/13/2024 Housing Stability Answer Date Recorded What is your living situation today? I have a [facility] place to live 01/13/2024 Education Answer Date Recorded What is the highest level of school you have completed or the highest degree you have received? Professional school degree (e.g., MD, YELENA, DVM, GRACIELA) 06/30/2021 Sex and Gender Information Value Date Recorded Sex Assigned at Male 06/30/2021 12:19 PM ENGRAVER ORNAMENTAL DESIGN Legal Sex Male 7:31 AM CDT Gender Identity Male 06/30/2021 12:19 PM ENGRAVER ORNAMENTAL DESIGN Sexual Orientation Straight 06/30/2021 12 :19 PM ENGRAVER ORNAMENTAL DESIGN documented as of this encounter Last Filed Vital Signs Vital Sign Reading Time Taken Comments Blood Pressure 166/75 03/13/2024 9:49 AM CDT Avg of 3 Pulse 64 03/13/2024 9:49 AM CDT Temperature - - Respiratory Rate - - Oxygen Saturation - - Inhaled Oxygen Concentration - - Weight 76 kg (167 lb 8.8 oz) 03/13/2024 9:49 AM CDT Height 178.2 cm (5' 10.16) 03/13/2024 9:49 AM C DT Body Mass Index 23.93 03/13/2024 9:49 AM CDT documented in this encounter Consult Notes * Taniya Tam, MARISOL, C.N.P., D.N.P. 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 His past medical history includes mitral regurgitation s/p BETH (1 XTR Mitraclip at A2/P2 for P2 flail by Dr. 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 Today in clinic denies dyspnea on exertion. NYHA I. Reports primary limiting symptom in fatigue. Heis able to golf 18 holes with a cart but feels tired by the last 9 holes. He may feel fatigue with walking up an incline or sometimes with climbing 1 flight of stairs. No exertional chest pain. No PND. Sleeps at an incline due to GERD and physical comfort. Notes mild lower extremity edema, R > L, along with left forearm swelling due to a prior iatrogenic arterial injury. He is prescribed Lasix20 mg PRN which he does not take. Reports atrial fibrillation is well controlled on amiodarone, no palpitations at this time. No presyncope or syncope. Allergies Allergen Reactions Ibrutinib Rash Penicillins Hives (Reselect Reaction) *reaction when teenager, Penicillin G. Current Outpatient Medications on File Prior to Visit Medication Sig Dispense Refill ALPRAZolam (XANAX) 0.25 mg tablet Take 0.125 mg by mouth as needed for anxiety. amiodarone (Pacerone) 200 mg tablet Take 0.5 tablets (100 mg total) by mouth daily. 45 tablet 3 atorvastatin (LIPITOR) 20 mg tablet TAKE ONE TABLET BY MOUTH ONCE EVERY DAY 90 tablet 3 calcium carbonate (calcium carbonate) 1000 mg (400 mg calcium) chewable tablet Chew 1 tablet as needed. Calquence, acalabrutinib mal, 100 mg tablet Take 100 mg by mouth 2 (two) times a day. famotidine (PEPCID) 20 mg tablet Take 20 mg by mouth daily. ferrous sulfate 325 mg (65 mg iron) DR tablet Take 325 mg by mouth. furosemide (Lasix) 20 mg tablet Take 1 tablet (20 mg total) by mouth as needed (weight increase 2 lb, edema, or shortness of breath). (Patient not taking: Reported on 03/07/2024) 30 tablet 1 iron,carbonyl-vitamin C (Vitron-C) 65 mg iron- [address] tablet Take 65 mg of iron by mouth daily. Do not crush or chew. levothyroxine (SYNTHROID, LEVOTHROID) 50 mcg tablet Take 50 mcg by mouth. lisinopriL 10 mg tablet Take 1.5 tablets (15 mg total) by mouth 2 (two) times a day. 270 tablet 3 magnesium chloride (Slow-Mag) 71.[address] tablet Take 1 tablet (71.5 mg total) by mouth daily. metoprolol succinate (TOPROL-XL) 25 mg 24 hr tablet metoprolol tartrate (LOPRESSOR) 25 mg tablet Take 1 tablet (25 mg total) by mouth 2 (two) times a day. 180 tablet 3 omeprazole (PriLOSEC) [address] capsule Take 40 mg by mouth. oxyCODONE (ROXICODONE) 5 mg immediate release tablet Take 1-2 tablets (5-10 mg total) by mouth every 4 (four) hours as needed for moderate pain or score 4-6 of 10 Indication: Chronic Pain/Nonacute Pain. (Patient not taking: Reported on 03/07/2024) 30 tablet 0 rivaroxaban (Xarelto) 20 mg tablet Take 1 tablet (20 mg total) by mouth daily with evening meal. 90tablet 3 tamsulosin (FLOMAX) 0.4 mg 24 hr capsule 0.4 mg daily. Current Facility-Administered Medications on File Prior to Visit Medication Dose Route Frequency Provider Last Rate Last Admin lidocaine-sodium bicarbonate (buffered) 0.9%-8.4% injection 2 mL 2 mL infiltration PRN Wilbert Powers M.D. 2 mL at 03/09/23 0930 Review of Systems: 10 point review of systems, completed. Pertinent positives as listed in history of present illness and past cardiac history. Family History Problem Relation Name Age of Onset Lymphoma Father Billy Shoemaker Coronary artery disease Mother Richelle Loyddestin Hypertension Mother Richelle Jensen Social History Tobacco Use Smoking status: Never Smokeless tobacco: Never Vaping Use Vaping status: never used Substance Use Topics Alcohol use: Never Drug use: No Vitals: 03/13/24 0949 BP: (!) 166/75 Pulse: 64 Reports: Labs: pending MERVAT 01/13/2024: Final Impressions 1. Status post transcatheter mitral [...] No intracardiac mass or thrombus identified. 6. Nvqo-ff-omcip shunt at atrial level by color flow imaging and agitated saline contrast injection. Imaging findings are consistent with prior trans-septal puncture. \.br\\.br\\.br\\.br\ with prior trans-septal puncture. by color flow imaging and agitated saline contrast injection. 7. No pericardial effusion. 8. The remainder of the findings are as per the transthoracic echocardiogram of 01/12/2024. Findings LEFT VENTRICLE:Mildly enlarged left ventricular chamber size. [...] rate 66 BPM). Normal pulmonary valve. Trivial pulmonaryvalve regurgitation. Normal tricuspid valve. Mild tricuspid valve regurgitation. OTHER ECHO FINDINGS:Normally connected pulmonary veins. Pulmonary artery bifurcation is normal. Normal superior vena cava. Agitated saline injection(s) performed during sedation. Eoqm-fr-qaeqw shunt at atrial level on color Doppler imaging consistent with prior trans-septal puncture No intracardiacmass or thrombus identified. No pericardial effusion. Impression/Plan: # Recurrent severe mitral regurgitation s/p BETH (1 XTR Mitraclip at A2/P2 for P2 flail by Dr. 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 Thakkar. Please see her note for details. Mr. Jensen is a very pleasant 78 year old male who presents to clinic for evaluation of recurrent mitral regurgitation s/p MitraClip in 2019. Per Dr. Thakkar's review of imaging, attempting a secondMitraClip would be challenging with risk of causing mitral stenosis. He is asymptomatic from a valve standpoint. He describes functional limitation due to fatigue, which we suspect is related to CLL and anemia, recommend continued follow up with Heme Onc. We would recommend follow up in Valve Clinic in 1 year. We discussed with Dr. Echevarria who was in agreement and will plan to see the patient back at that time. Billin minutes spent in face to face interaction and coordination of care * Loraine Thakkar M.D. - 03/13/2024 10:00 AM CDT This is a supervisory note. I have personally seen and examined the patient with Taniya Tam today. I reviewed the note written by her and agree with the findings, assessment and plan. Please refer to that note for details. Mr. Jensen is a 78-year-old male with history of hypertension, CLL, melanoma with metastases to theparotid glands since May of 2023 on treatment with Keytruda every 3 weeks, chronic anemia, paroxysmal atrial fibrillation status post ablation in 2020 currently on amiodarone and severe primary mitral regurgitation due to flail P2 status post transcatheter edge to edge repair with 1 X TR MitraClip at A2/P2 by Dr. Echevarria on 06/28/2019. His MR was moderate one- month after MitraClip on 07/23/2019.It then increased to moderate to severe by TTE on 02/04/2021. It remained moderate to severe for few years and now was found to be severe by MERVAT on 01/13/2024. Despite absence of symptoms, he was referred to us for evaluation for possible mitral valve intervention particularly if that could be needed prior to atrial fibrillation ablation. He denies dyspnea on exertion, he is currently NYHA class 1. However, his main complaint is fatigue particularly when he has low hemoglobin levels. On physical exam, his JVP is normal, lungs are clear, he has a 3/6 systolic murmur in the left sternal border and apex radiated to the axilla, no hepatojugular reflux, normal pulses and 1+ edema in the right leg which is chronic according to him and has had negative Dopplers for DVT. His NT proBNP level was 974 which is significantly better compared with 2,387 in January of 2022 and 2,055 in July of 2019. His ECG 01/12/24 showed normal sinus rhythm at a heart rate of 69 beats per minute with first-degree AV block, prolonged QT. The TTE from 01/12/24 showed an LVEF of 60%, status post mitral Beth with a MitraClip device in place at A2/P2 position with severe mitral regurgitation, there is an eccentric anterior directed jet, the mean gradient is 6 mm of Hg at a heart rate of 63 beats per minute, there is mi ld tricuspid regurgitation, mildly enlarged right ventricle with normal RV function and estimated RVSP of 67 mmHg (previously 58 mm of Hg by TTE on 02/17/2023). The MERVAT from 01/13/24 confirmed the presence of severe mitral regurgitation with a jet that originates from the lateral side of the MitraClip device. I have reviewed the MERVAT images. I think adding a second MitraClip device lateral to the prior MitraClip has the risk of producing mitral stenosis. Considering he has no symptoms of mitral regurgitation at this time, his prognosis is uncertain in the setting of metastatic melanoma, and a second MitraClip procedure could cause stenosis, I would favor conservative approach and re- evaluate in 1 year.If he develops symptoms in the future and there is approval for transseptal transcatheter mitral valve replacement, I think that option could be considered and could provide better result. He and hiswife verbalized understanding and agree with follow-up in 1 year. Thank you very much for allowing me to participate in this patient's care. Please let me know if I can provide any further information regarding his case. Very truly yours, Loraine Thakkar MD. documented in this encounter Plan of Treatment Scheduled Referrals Name Type Priority Associated Diagnoses Order Schedule Cardiovascular Disease office visit (clinic) Outpatient Referral Routine Expect ed: 03/13/2025, Expires: 06/13/2025 documented as of this encounter Visit Diagnoses Diagnosis Atrial Fibrillation Unspecified (HCC) Regurgitation Mitral documented in this encounter Additional Health Concerns Infection Onset Date Last Indicated Resolved Time Protective Environment 09/20/2022 09/20/2022 Assessment Noted Time PHQ-9 Depression Total Score: 6 07/17/19 20 10:26 AM ENGRAVER ORNAMENTAL DESIGN documented as of this encounter Care Teams Machine Printer Hose Relationship Specialty Start Date End Date Elsewhere, Pcp PCP - General Registered Representative 06/27/19 documented as of this encounter
--- OUTSIDE RECORDS SUMMARY | 2024-04-25 12:31 | XMS_ITS | Encounter Summary ---
Author Organization [facility] Address [address] [place] [address] Care Team Providers Care Pressure Tank Operator Name Role Phone Elsewhere, Pcp Primary Care Provider Unavailabl e Reason for Visit * Reason Onset Date Comments Pre-visit Testing Orders 01/20/2024 Encounter Details Date Type Department Care Team (Latest Contact Info) Description 01/20/2024 Clinical Communication Department of Cardiovascular Medicine in [place], [place] [address] [place] [address] Loraine Thakkar M.D. [address] [place] [address] Pre-visit Testing Orders Social History Tobacco Use Types Packs/Day Years Used Date Smoking Tobacco: Never Smokeless Tobacco: Never Alcohol Use Standard Drinks/Week Comments Never 0 (1 standard drink = 0.6 oz pur e alcohol) [facility] Utilities Answer Date Recorded In the past 12 months has [facility] [employer], gas, oil, or water [employer] threatened to shut off services in your [...] How often do you attend pentecostal or tenriism serv ices? Never 06/30/2021 Do [...] heating? Not hard at all 06/30/2021 [facility] [place] of Occupat ional Health - Occupational Stress [...] your living situation today? I have a [facility] place to live 01/13/2024 Education Answer Date Recorded What is the highest level of school you have completed or the highest degree you have received? Professional school degree (e.g., MD, DDS, DVM, GRACIELA) 06/30/2021 Sex and Gender Information Value Date Recorded Sex Assigned at Male 06/30/2021 12:19 PM WATER SUPPLY TECHNICIAN Legal Sex Male 7:31 AM CDT Gender Identity Male 06/30/2021 12:19 PM WATER SUPPLY TECHNICIAN Sexual Orientation Straight 06/30/2021 12 :19 PM WATER SUPPLY TECHNICIAN documented as of this encounter Plan of Treatment Not on file documented as of this encounter Results * (ABNORMAL) NT-Pro B-Type Natriuretic Peptide (BNP) [...] LAB BLOOD ADD-ON Final Resul t [facility] [address] [place] [address], [place] [facility] [address] [place] [address] * (ABNORMAL) Lipid Panel (03/13/2024 8:22 AM [...] ADD-ON Final Resul t Performing Organization Address City/[facility]/ZIP Co de Phone Number [facility] [address] [place] [address], [facility] DTL [facility] [address] [place] [address] * (ABNORMAL) CBC with Differential, Blood (03/13/2024 [...] - 6.45 x10(9)/L 03/13/2024 11:05 AM CDT DHPM Comment:Auto-diff results no t valid. See manual differential. Blood (Blood, Venous) 03/13/2024 8:22 AM CDT 03/13/2024 8:47 AM CDT us Loraine Thakkar M.D. LAB BLOOD ADD-ON Final Resul t [facility] [address] [place], [place] [address] [address] [place] [address] [facility] [address] [place] [address] * (ABNORMAL) Prothrombin Time (PT) (03/13/2024 8:22 [...] ADD-ON Final Resul t Performing Organization Address City/[facility]/ZIP Co de Phone Number [facility] [address] [place], [place] [address] 200 [place] [address] * Glucose, Fasting (03/13/2024 8:22 AM CDT) Glucose, P 90 70 - 100 mg/dL 03/13/2024 9:17 AM CDT DTL Last Intake 11 hr 03/13/2024 8:59 AM CDT DTL Blood (Blood, Venous) 03/13/2024 8:22 AM CDT 03/13/2024 8:59 AM CDT us Loraine Thakkar M.D. LAB BLOOD NON ADD-ON Final R esult [facility] [address] [place], [place] [phone] [place], [place] [address] [address] [place] [address] documented in this encounter Visit Diagnoses Diagnosis Regurgitation Mitral- Primary Repair Mitral Valve Status Post documented in this encounter Additional Health Concerns Infection Onset Date Last Indicated Resolved Time Protective Environment 09/20/2022 09/20/2022 Assessment Noted Time PHQ-9 Depression Total Score: 6 07/17/19 20 10:26 AM WATER SUPPLY TECHNICIAN documented as of this encounter Care Teams Pressure Tank Operator Relationship Specialty Start Date End Date Elsewhere, Pcp PCP - General Telegraph Lineman 06/27/19 documented as of this encounter
--- OUTSIDE RECORDS SUMMARY | 2024-04-25 12:31 | XMS_ITS | Encounter Summary ---
Author Organization [facility] Address [address] [place] [address] Care Team Providers Care Delivery Analyst Name Role Phone Elsewhere, Pcp Primary Care Provider Unavailabl e Reason for Visit * Reason Comments Med Refill Xarelto Encounter Details Date Type Department Care Team (Late st Contact Info) Description 02/27/2024 Refill Department of Cardiovascular Medicine in [place], [place] [address] [place] [phone] Flo Nazario M.D. [address] [place] [address] Med Refill (Xarelto ) Social History Tobacco Use Types Packs/Day Years Used Date Smoking Tobacco: Never Smokeless Tobacco: Never Alcohol Use Standard Drinks/Week Comments Never 0 (1 standard drink = 0.6 oz pur e alcohol) [facility] Utilities Answer Date Recorded In the past 12 months has [facility] [employer], gas, oil, or water [employer] threatened to shut off services in your [...] week 06/30/2021 How often do you attend episcopal or restoration serv ices? Never 06/30/2021 Do you belong to any clubs o r organizations such as episcopal groups, unions, fraternal or athletic groups, or [...] heating? Not hard at all 06/30/2021 [facility] [place] of Occupat ional Health - Occupational Stress [...] your living situation today? I have a [facility] place to live 01/13/2024 Education Answer Date Recorded What is the highest level of school you have completed or the highest degree you have received? Professional school degree (e.g., MD, DDS, DVM, GRACIELA) 06/30/2021 Sex and Gender Information Value Date Recorded Sex Assigned at Male 06/30/2021 12:19 PM COMPOUNDER HELPER Legal Sex Male 7:31 AM CDT Gender Identity Male 06/30/2021 12:19 PM COMPOUNDER HELPER Sexual Orientation Straight 06/30/2021 12 :19 PM COMPOUNDER HELPER documented as of this encounter Miscellaneous Notes * Telephone Encounter - Kristine Moses - 02/27/2024 1:47 PM CDT Images from the original note were not included. Nurse review: Unable to pend medication to provider; Requested medication is found on the EHA Exclusion list Name of Medication: Xarelto Strength: 20 mg Frequency: daily Last Seen: 01-13-24(Marilu Castaneda) 07-07-23 (Dr Nazario, virtual visit Pharmacy: [facility] [address] [place] [address] documented in this encounter Plan of Treatment Not on file documented as of this encounter Visit Diagnoses Diagnosis Atrial Fibrillation Longstanding Persistent (HCC)- Primary documented in this encounter Additional Health Concerns Infection Onset Date Last Indicated Resolved Time Protective Environment 09/20/2022 09/20/2022 Assessment Noted Time PHQ-9 Depression Total Score: 6 07/17/19 20 10:26 AM COMPOUNDER HELPER documented as of this encounter Care Teams Delivery Analyst Relationship Specialty Start Date End Date Elsewhere, Pcp PCP - General Junior Paralegal 06/27/19 documented as of this encounter
[2024-04-25 12:46] LABS: Albumin* 3.7 g/dL (3.3-5.0); Chloride* 95 mmol/L (96-114); Sodium* 126 mmol/L (135-149)
[2024-04-25 12:47] LABS: Potassium* 4.5 mmol/L (3.6-5.1)
[2024-04-25 12:49] LABS: Anion Gap 9 mEq/L (7-15); Aspartate Amino Transferase* 18 U/L (12-35); Bilirubin Total* 1.1 mg/dL (0.1-1.5); Blood Urea Nitrogen* 17 mg/dL (7-30); Carbon Dioxide* 22 mmol/L (20-32); Creatinine* 1.1 mg/dL (0.5-1.5); Est. Creatinine Clearance* 57.52; Estimated Glomerular Filt Rate 69 ml/min; Magnesium* 1.9 mg/dL (1.5-2.6); Total Protein* 5.5 g/dL (6.0-8.3)
[2024-04-25 12:50] LABS: Alanine Aminotransferase* 11 U/L (4-50); Alkaline Phosphatase* 81 U/L (40-150); Calcium* 8.4 mg/dL (8.4-10.6); Glucose* 102 mg/dL (60-115)
[2024-04-25 12:52] LABS: Slide Review Reflex Yes
[2024-04-25 12:55] LABS: Slide Review Acceptable Review (Acceptable)
[2024-04-25 12:59] LABS: NT Pro B Type NatriureticPept* 2380 pg/mL
[2024-04-25] MEDS: 0.9 % SODIUM CHLORIDE 1000 ml 1,000 ML 500 ML IV (14:39)
[2024-04-25] MEDS: PROPOFOL 10 MG/ML INJ 200 MG IVP (14:39)
[2024-04-25 14:54] LABS: Free T4 Free Thyroxine* 1.21 ng/dL (0.70-1.85)
[2024-04-25 15:56] LABS: Sodium* 126 mmol/L (135-149)
--- NOTE | 2024-04-25 16:09 | RESP.RT ---
Here for Cardioversion. Hyper oxygenated before procedure with 5L NC for 15 minutes, and left on during cardioversion. SPO2 100% Monitored airway. Monitered with RN during recovery. Pt tolerated well. See RN charting for vitals.
== END 2024-04-25 16:40 | disposition home or self-care (01) ==
PROVIDERS: Emergency Medicine; Emergency Provider Family Medicine; PCP Student in an Organized Health Care Education/Training Program
DX: I48.91 Unspecified atrial fibrillation (principal); E87.1 Hypo-osmolality and hyponatremia
CPT/HCPCS: 92960; 36415; 80048; 80053; 83735; 83880; 84295; 84439; 84443; 84484; 85025; 93005; 99156; 99285; 99291; J2704; J7030

== ENCOUNTER 2024-06-12 02:15 | Emergency (ER) | payer MEDICARE, BC, SELFPAY ==
[2024-06-12] VITALS (11 sets, daily range): BP systolic 150–173; BP diastolic 75–85; PULSE 74–86; RESP 20; TEMP 36.7; O2SAT 93–97; BMI 22.9
--- OUTSIDE RECORDS SUMMARY | 2024-06-12 02:17 | XMS_ITS | Clinical Summary ---
Author Organization [facility] Address [address] [place] [address] Care Team Providers Care Retail Sales Manager Name Role Phone Elsewhere, Pcp Primary Care Provider Unavailabl e Source Comments Patient records contain information from all sites at [facility]. For routine questions regarding patient records, call [phone] during business hours, M-F 8:00 AM - 5:00 PM Central Time. Record requests for emergency care only can be directed to [phone] at any time.[facility] Allergies Active Allergy Reactions Criticality Noted Date [...] 04/09/2024 Refill Department of Cardiovascular Medicine in [place] [id number] [place] [phone] Ron Santana M.D., Ph.D. Med Refill 03/29/2024 Orders Only Department of Oncology in [address] [phone] Birdie Hurtado M.D. 03/26/2024 10:56 AM CDT - 03/26/2024 11:59 PM CDT Hospital Encounter Department of Radiology, [facility] in [place], [place] [address] [place] [address] Birdie Hurtado M.D. 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 Atrial Fibrillation Unspecified (HCC); Regurgitation Mitral 03/13/2024 8:12 AM CDT - 03/13/2024 11:59 PM CDT Hospital Encounter Department of Laboratory Medicine and Pathology, [facility] in [place], [place] [address] [place] [phone] Loraine Thakkar M.D. Atrial Fibrillation Unspecified (HCC); Regurgitation Mitral; Repair Mitral Valve Status Post Discharge Disposition: Home or Self Care 03/13/2024 7:54 AM CDT - 03/13/2024 8:11 AM CDT Hospital Encounter Department of Radiology, [facility] in [place], [place] [address] [place] [phone] Marilu Castaneda P.A.-Nikki., M.S. Atrial Fibrillation Unspecified (HCC); Regurgitation Mitral Discharge Disposition: Home or Self Care from Last 3 Months Immunizations Name Administration [...] oz pur e alcohol) [facility] Utilities Answer Date Recorded In the past 12 months has e [employer] gas, oil, or water [employer] threatened to shut off services in your [...] week 06/30/2021 How often do you attend voodoo or restoration serv ices? Never 06/30/2021 Do you belong to any clubs o r organizations such as voodoo groups, unions, fraternal or athletic groups, or [...] at all 06/30/2021 [facility] - [...] Sex Assigned at Male 06/30/2021 12:19 PM HOTEL OFFICE MANAGER Legal Sex Male 7:31 AM CDT Gender Identity Male 06/30/2021 12:19 PM HOTEL OFFICE MANAGER Sexual Orientation Straight 06/30/2021 12 :19 PM HOTEL OFFICE MANAGER Last Filed Vital Signs Vital Sign Reading Time Taken Comments Blood Pressure 166/75 03/13/2024 9:49 AM CDT Avg of 3 Pulse 64 03/13/2024 9:49 AM CDT Temperature 36.6 C (97.9 F) 05/03/2023 3:58 PM HOTEL OFFICE MANAGER Respiratory Rate 16 01/13/2024 12:18 PM CDT [...] this topic Medical Devices Implanted Type Area Information Lead Device Identifier Shelf Expiration Date Model / Serial / Lot Clp Tania Clip Del Sys Xtr - [id number] Implanted:Qty : 1 on 06/28/2019 by Hernandez Echevarria M.D. 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) SPSMA RESULT Routine 03/13/2024 8:22 AM CDT RI T4 FREE Routine 03/13/2024 8:22 AM CDT [...] LOS, PET ARZ LOS, [facility] N/A Positron Emission Tomography (PET), [...] RADIOPHARMACEUTICAL/MEDS: Route: intravenous fludeoxyglucose F 18 injection HALFWAY (FDG F-18),9.92 millicurie TECHNIQUE: F-18 FDG PET/CT [...] RADIOPHARMACEUTICAL/MEDS: Route: intravenous fludeoxyglucose F 18 injection HALFWAY (FDG F-18),9.92 millicurie TECHNIQUE: F-18 FDG PET/CT [...] Free, Serum (03/13/2024 8:22 AM CDT) Pathologist [facility] T4 (Thyroxine), Free, S 1.7 0.9 - 1.7 ng/dL 03/13/2024 10:55 AM CDT DTL Blood 03/13/2024 8:22 AM CDT 03/13/2024 9:03 AM CDT Marilu Castaneda P.A.-C., M.S. LAB BLOOD ADD-ON Fi nal Result [address] [address], [facility] [address] [place] [address] * (ABNORMAL) Lipid Panel (03/13/2024 8:22 AM CDT) Pathologist [facility] Triglycerides 36 mg/dL 03/13/2024 10:34 AM CDT [...] M.D. LAB BLOOD ADD-ON Final Resul t [address] [address], [facility] [place] [address] [place] [address] * (ABNORMAL) Morphology Eval (special smear) (03/13/2024 [...] - 6.45 x10(9)/L 03/13/2024 11:06 AM CDT [facility] Comment: ----ADDITIONAL INFORMATION---- The manual absolute neutrophil count is derived from a manual differential count and therefore is not exactly comparable to the automated absolute neutrophil count. Interpretation See Comment 11:06 AM CDT [facility] Comment: The blood smear findings are consistent with the previous diagnosis of chronic lymphocytic leukemia. Reviewed by: Tech 03/13/2024 11:06 AM CDT [facility] Blood 03/13/2024 8:22 AM CDT 03/13/2024 8:47 AM CDT Loraine Thakkar M.D. LAB BLOOD ADD-ON Final Resul t Performing Organization Address [facility] [place] [place] [address] * (ABNORMAL) Thyroid Function [place] (03/13/2024 8:22 AM CDT) Pathologist [facility] TSH, Sensitive 10.0(H) 0.3 - 4.2 mIU/L 03/13/2024 10:34 AM CDT DT Blood (Blood, Venous) 03/13/2024 8:22 AM CDT 03/13/2024 9:03 AM CDT us Marilu Castaneda P.A.-C., M.S. LAB BLOOD ADD-ON Fi nal Result Performing Organization Address City/[facility]/[place] [address] * (ABNORMAL) NT-Pro B-Type Natriuretic Peptide (BNP) (03/13/2024 8:22 AM CDT) Pathologist [facility] NT-Pro BNP 974(H) <=540 pg/mL 03/13/2024 10:34 [...] ADD-ON Final Resul t Performing Organization Address [facility] Co de Phone Number [address] [place] [address] * Thyroperoxidase (TPO) Antibodies (03/13/2024 8:22 AM CDT) Thyroperoxidase Ab, S <15.0 <34.0 IU/mL 03/13/2024 10:55 AM CDT DTL Blood 03/13/2024 8:22 AM CDT 03/13/2024 9:03 AM CDT Marilu Castaneda P.A.-C., M.S. LAB BLOOD ADD-ON Fi nal Result Performing Organization Address City/[facility]/ZIP Co de Phone Number [facility] [address] [place] [address] * (ABNORMAL) Prothrombin Time (PT) (03/13/2024 8:22 [...] M.D. LAB BLOOD ADD-ON Final Resul t [facility] [address] [place] [address], [facility] [address] [place] [address] * (ABNORMAL) CBC with Differential, Blood (03/13/2024 [...] - 6.45 x10(9)/L 03/13/2024 11:05 AM CDT [facility] Comment:Auto-diff results no t valid. See manual differential. Blood (Blood, Venous) 03/13/2024 8:22 AM CDT 03/13/2024 8:47 AM CDT us Loraine Thakkar M.D. LAB BLOOD ADD-ON Final Resul t Performing Organization Address City/[facility]/ZIP Co de Phone Number [facility] [address] [place] [address], [facility] [address] [place], [place] [address] [place] [address] 200 [place] [address] * Glucose, Fasting (03/13/2024 8:22 AM CDT) Glucose, P 90 70 - 100 mg/dL 03/13/2024 9:17 AM CDT DTL Last Intake 11 hr 03/13/2024 8:59 AM CDT DTL Blood (Blood, Venous) 03/13/2024 8:22 AM CDT 03/13/2024 8:59 AM CDT us Loraine Thakkar M.D. LAB BLOOD NON ADD-ON Final R esult Performing Organization Address City/[facility]/ZIP Co de Phone Number [facility] [address] [place], [place] [address] [address] [place] [address] * (ABNORMAL) Comprehensive Metabolic Panel (03/13/2024 8:22 [...] M.S. LAB BLOOD ADD-ON Fi nal Result [facility] [address] [place] [address], [facility] DTL [facility] [address] [place] [address] * DX Chest AP or PA and [...] Indicated Protective Environment 09/20/2022 3 Insurance MEDICARE [facility] [place] [address] Advance Directives For more information, please contact: [phone] * Full Code (Latest Code Status on File) Date Activated Date Inactivated Comments 01/06/2022 5:12 PM 01/09/2022 4:47 PM Question Answer Comments Full Code: Discussed * Full Code Date Activated Date Inactivated Comments 06/28/2019 12:14 PM 06/29/2019 2:37 PM Question Answer Comments Full Code: Discussed Care Teams Retail Sales Manager Relationship Specialty Start Date End Date Elsewhere, Pcp PCP - General Store Team Leader 06/27/19
--- OUTSIDE RECORDS SUMMARY | 2024-06-12 02:17 | XMS_ITS | Clinical Summary ---
Author Organization [facility] Address [place], [place] [address] Care Team Providers Care Metal Mover Name Role Phone Nikki Reilly DO Primary Care Provider [phone] Allergies Active Allergy Reactions Criticality Noted Date [...] Type Department Care Team Description 05/18/[address] [facility] [address] [facility] [place] [address] Nikki Reilly DO Concerns (Blood Pressure) 05/17/2024 2:05 PM LICENSE DISTRIBUTOR Office Visit [facility] [address] [facility] [place] [address] Nikki Reilly DO Medicare ANNUAL (subsequent) Visit (78 year old ) 05/17/2024 Travel 05/01/[address] [facility] [address] [place] [address] Chris Thomas MD Results 04/30/2024 2:15 PM LICENSE DISTRIBUTOR Office Visit [facility] [address] [place] [address] Chris Thomas MD ER Follow up (Cardioversion, hyponatremia - needs repeat sodium) 04/30/2024 Travel 04/27/[address] [facility] [address] [place] [address] Nikki Reilly, Lab from Last 3 Months [...] on file Legal Sex Male 7:17 AM LICENSE DISTRIBUTOR Gender Identity Not on file Sexual Orientation Not on file Obstetrics History Last Filed Vital Signs Vital Sign Reading Time Taken Comments Blood Pressure 160/82 05/17/2024 2:08 PM LICENSE DISTRIBUTOR rec heck Pulse 62 05/17/2024 2:05 PM LICENSE DISTRIBUTOR Temperature 36.9 C (98.4 F) 04/23/2020 11:09 AM LICENSE DISTRIBUTOR Respiratory Rate 16 03/20/2020 2:20 PM CDT Oxygen Saturation 100% 05/17/2024 2:05 PM LICENSE DISTRIBUTOR Inhaled Oxygen Concentration - - Weight 76.5 kg (168 lb 9.6 oz) 05/17/2024 2:05 P M LICENSE DISTRIBUTOR Height 175.2 cm (5' 8.98) 05/17/2024 2:05 PM CS T Body Mass Index 24.91 05/17/2024 2:05 PM LICENSE DISTRIBUTOR Plan of Treatment Health Maintenance Due Date [...] BASIC METABOLIC PANEL Routine 04/30/2024 2:55 PM LICENSE DISTRIBUTOR Hyponatremia TSH Routine 04/30/2024 2:55 PM LICENSE DISTRIBUTOR Hypothyroidism (acquired) ANTI HCV Routine 03/09/2018 10:39 AM CDT Need for hepatitis C screening test from Last 3 Months or Most Recently Relevant to Health Maintenance Results * (ABNORMAL) TSH (04/30/2024 2:55 PM LICENSE DISTRIBUTOR) TSH 8.39(H) 0.40 - 4.50 mIU/L [facility] Blood BLOOD SPECIMEN / Unknown 04/30/2024 2:55 PM LICENSE DISTRIBUTOR 04/30/2024 2:56 PM LICENSE DISTRIBUTOR Chris Thomas MD CHEMISTRY Final Result Performing Organization Address City/[facility]/ZIP Co de Phone Number [facility] [address] [place] [address], [facility] [address] [place] [address] * (ABNORMAL) BASIC METABOLIC PANEL (04/30/2024 2:55 PM LICENSE DISTRIBUTOR) Pathologist [facility] GLUCOSE 76 65 - 99 mg/dL [facility] Comment: Fasting reference interval UREA NITROGEN (BUN) [...] BLOOD SPECIMEN / Unknown 04/30/2024 2:55 PM LICENSE DISTRIBUTOR 04/30/2024 2:56 PM LICENSE DISTRIBUTOR Chris Thomas MD CHEMISTRY Final Result Performing Organization Address City/[facility]/ZIP Co de Phone Number [facility] [address] [place] [address], [facility] [address] [place] [address] * ANTI HCV [06121.2] (03/09/2018 10:39 AM CDT) HEPATITIS C ANTIBODY Non-React [place] Non-React [place] 03/09/2018 5:05 PM CDT [facility] Comment:Antibodies to HCV no t detected; does not exclude the possibility of exposure to HCV. Blood BLOOD SPECIMEN / Unknown Venipuncture / Unknown 03/09/2018 10:39 AM CDT 03/09/2018 10:39 AM CDT Ron Garcia MD SEND OUTS Final Resu lt [facility] [address] [place] [address], from Last 3 Months or Most Recently Relevant to Health Maintenance Insurance MEDICARE PART A HB ONLY MEDICARE PART B HB ONLY [place] [address] [place] [employer] MR PB ONLY Advance Directives * Full Code (Latest Code Status on File) Date Activated Date Inactivated Comments 11/22/2011 11:07 AM 11/22/2011 3:00 PM * Full Code Date Activated Date Inactivated Comments 11/22/2011 9:03 AM 11/22/2011 11:07 AM Care Teams Metal Mover Relationship Specialty Start Date End Date Nikki Reilly DO [address] [place] [address] PCP - General Family Practice 12/15/22
--- OUTSIDE RECORDS SUMMARY | 2024-06-12 02:18 | XMS_ITS ---
Author Organization [facility] Address [address] [place] [address] Care Team Providers Care Silver Lap Machine Tender Name Role Phone Unavailable Unavailable Unavailable Surgery Details Not on file Complications Check Surgery Details section. Procedure Estimated Blood Loss Check Surgery Details section. Procedure Findings Check Surgery Details section. Procedure Specimens Taken Check Surgery Details section.
--- OUTSIDE RECORDS SUMMARY | 2024-06-12 02:18 | XMS_ITS ---
Author Organization [facility] Address [address] [place] [address] Care Team Providers Care Shrimp Cleaner Name Role Phone Elsewhere, Pcp Primary Care [...] treatments are documented for this patient in [facility]. Treatments may have been administered in another system.
--- OUTSIDE RECORDS SUMMARY | 2024-06-12 02:18 | XMS_ITS | Referral Summary ---
Author Organization [facility] Address [address] [place] [address] Care Team Providers Care Skiver Heel Tap Name Role Phone Elsewhere, Pcp Primary Care Provider Unavailabl e Source Comments Patient records contain information from all sites at [facility]. For routine questions regarding patient records, call [phone] during business hours, M-F 8:00 AM - 5:00 PM Central Time. Record requests for emergency care only can be directed to [phone] at any time.[facility] Encounters Date Type Department Care Team Description 04/09/2024 Refill Department of Cardiovascular Medicine in [place], [place] [address] [place] [address] Ron Santana M.D., Ph.D. Med Refill 03/29/2024 Orders Only Department of Oncology in [address] [address] Birdie Hurtado M.D. 03/26/2024 10:56 AM CDT - 03/26/2024 11:59 PM CDT Hospital Encounter Department of Radiology, [facility] in [place], [place] [address] [place] [address] Birdie Hurtado M.D. Malignant Neoplasm Of Lung Squamous Cell Right (HCC) Discharge Disposition: Home or Self Care 03/21/2024 9:30 AM CDT Immunization Section of Infectious Diseases in [place], [place] [address] [place] [address] 03/13/2024 7:54 AM CDT - 03/13/2024 8:11 AM CDT Hospital Encounter Department of Radiology, [facility] in [place], [place] [address] [place] [address] Marilu Castaneda P.A.-C., M.S. Atrial Fibrillation Unspecified (HCC); Regurgitation Mitral Discharge Disposition: Home or Self Care 03/13/2024 8:12 AM CDT - 03/13/2024 11:59 PM CDT Hospital Encounter Department of Laboratory Medicine and Pathology, [facility], in [place], [place] [address] [place] [address] Loraine Thakkar M.D. Atrial Fibrillation Unspecified (HCC); Regurgitation Mitral; Repair Mitral Valve Status Post Discharge Disposition: Home or Self Care 03/13/2024 10:00 AM CDT Comprehensive Visit Department of Cardiovascular Medicine in [place], [place] [address] [place] [address] Loraine Thakkar M.D. Atrial Fibrillation Unspecified (HCC); Regurgitation Mitral from Last 3 Months Allergies Active Allergy [...] 0.6 oz pur e alcohol) [facility] Utilities Answer Date Recorded In the past 12 months has e [employer], [employer], oil, or water [employer] threatened to shut off services in your [...] week 06/30/2021 How often do you attend catholic or rastafari serv ices? Never 06/30/2021 Do you belong to any clubs o r organizations such as catholic groups, unions, fraternal or athletic groups, or [...] at all 06/30/2021 [facility] Occupational Stress Questionnaire Answer Date [...] your living situation today? [facility] 01/13/2024 Education Answer Date Recorded What is the highest level of school you have completed or the highest degree you have received? Professional school degree (e.g., MD, DDS, DVM, GRACIELA) 06/30/2021 Sex and Gender Information Value Date Recorded Sex Assigned at Male 06/30/2021 12:19 PM PLAYGROUND ATTENDANT Legal Sex Male 7:31 AM CDT Gender Identity Male 06/30/2021 12:19 PM PLAYGROUND ATTENDANT Sexual Orientation Straight 06/30/2021 12 :19 PM PLAYGROUND ATTENDANT Last Filed Vital Signs Vital Sign Reading Time Taken Comments Blood Pressure 166/75 03/13/2024 9:49 AM CDT Avg of 3 Pulse 64 03/13/2024 9:49 AM CDT Temperature 36.6 C (97.9 F) 05/03/2023 3:58 PM PLAYGROUND ATTENDANT Respiratory Rate 16 01/13/2024 12:18 PM CDT Oxygen Saturation 95% 01/13/2024 12:20 PM CDT Inhaled Oxygen Concentration - - Weight 76 kg (167 lb 8.8 oz) 03/13/2024 9:49 AM CDT Height 178.2 cm (5' 10.16) 03/13/2024 9:49 AM C DT Body Mass Index 23.93 03/13/2024 9:49 AM CDT Plan of Treatment Not on file Medical Devices Implanted Type Area Casino Duty Manager Device Identifier Shelf Expiration Date Model / Serial / Lot Clp Tania Clip Del Sys Xtr - [id number] Implanted:Qty : 1 on 06/28/2019 by Hernandez Echevarria M.D. at [facility] Mitralclip N/A: Heart Reese 03/21/2020 [id number] / / [id number] Description:Mitral Valve Ocular Lens Ocular Lens Eye Description:Right Ocular Lens Ocular Lens Eye Description:Left Procedures Procedure Name Priority Date/Time Associated Diagnosis Comments PET CT SKULL TO THIGH RAD - Routine (most inpatients and all outpatients) 03/26/2024 1:13 PM CDT Malignant Neoplasm Of Lung Squamous Cell Right (HCC) SPSMA RESULT Routine 03/13/2024 8:22 AM CDT GA T4 FREE Routine 03/13/2024 8:22 AM CDT [...] RADIOPHARMACEUTICAL/MEDS: Route: intravenous fludeoxyglucose F 18 injection LONGTERM (FDG F-18),9.92 millicurie TECHNIQUE: F-18 FDG PET/CT [...] RADIOPHARMACEUTICAL/MEDS: Route: intravenous fludeoxyglucose F 18 injection LONGTERM (FDG F-18),9.92 millicurie TECHNIQUE: F-18 FDG PET/CT [...] LAB BLOOD ADD-ON Fi nal Result [facility] [address] [place] [address], [facility] [address] [place] [address] * (ABNORMAL) Lipid Panel (03/13/2024 8:22 AM [...] Final Resul t [facility] [address] [place] [address], [facility] [address] [place] [address] * (ABNORMAL) Morphology Eval (special smear) (03/13/2024 [...] M.D. LAB BLOOD [place] [address], [facility] [address] [place] [address] * (ABNORMAL) Thyroid Function [place] (03/13/2024 8:22 AM CDT) TSH, Sensitive 10.0(H) 0.3 - 4.2 mIU/L 03/13/2024 10:34 AM CDT DTL Blood (Blood, Venous) 03/13/2024 8:22 AM CDT 03/13/2024 9:03 AM CDT us Marilu Castaneda P.A.-C., M.S. LAB BLOOD ADD-ON Fi nal Result [facility] [address] [place] [address] * (ABNORMAL) NT-Pro B-Type Natriuretic Peptide (BNP) (03/13/2024 8:22 AM CDT) NT-Pro BNP 974(H) <=540 pg/mL 03/13/2024 10:34 AM CDT [facility] Comment: NT-proBNP values less than 300 pg/mL [...] M.D. LAB BLOOD ADD-ON Final Resul t [facility] [address] [place] [address] * Thyroperoxidase (TPO) Antibodies (03/13/2024 8:22 AM CDT) Thyroperoxidase Ab, S <15.0 <34.0 IU/mL 03/13/2024 10:55 AM CDT [facility] Blood 03/13/2024 8:22 AM CDT 03/13/2024 9:03 AM CDT Marilu Castaneda P.A.-C., M.S. LAB BLOOD ADD-ON Fi nal Result [facility] [address] [place] [address] * (ABNORMAL) Prothrombin Time (PT) (03/13/2024 8:22 AM CDT) Pathologist [facility] Prothrombin Time, P 27.6(H) 9.4 - [...] M.D. LAB BLOOD ADD-ON Final Resul t [facility] [address] [place] [address], [facility] [address] [place] [address] * (ABNORMAL) CBC with Differential, Blood (03/13/2024 8:22 AM CDT) [facility] Hemoglobin 9.4(L) 13.2 - 16.6 g/dL 03/13/2024 [...] - 9.6 x10(9)/L 03/13/2024 11:05 AM CDT [facility] Comment:Results confirmed by smear. Neutrophils See Comment 1.56 - 6.45 x10(9)/L 03/13/2024 11:05 AM CDT [facility] Comment:Auto-diff results no t valid. See manual differential. Blood (Blood, Venous) 03/13/2024 8:22 AM CDT 03/13/2024 8:47 AM CDT Loraine Thakkar M.D. LAB BLOOD ADD-ON Final Resul t Performing Organization Address City/[facility] Co de Phone Number [facility] [address] [place] [address], [facility] [address] [employer], [place] [address] [place] [address] [address] [place] [address] * Glucose, Fasting (03/13/2024 8:22 AM CDT) Pathologist [facility] Glucose, P 90 70 - 100 mg/dL 03/13/2024 9:17 AM CDT DTL Last Intake 11 hr 03/13/2024 8:59 AM CDT DTL Blood (Blood, Venous) 03/13/2024 8:22 AM CDT 03/13/2024 8:59 AM CDT us Loraine Thakkar M.D. LAB BLOOD NON ADD-ON Final R esult Performing Organization Address City/[facility]/ZIP Co de Phone Number [facility] [address] [place] [address], [facility] [address] [place] [address] * (ABNORMAL) Comprehensive Metabolic Panel (03/13/2024 8:22 [...] M.S. LAB BLOOD ADD-ON Fi nal Result [facility] [address] [place] [address], [place] DTL [facility] [address] [place] [address] * DX Chest AP or PA and [...] calcification. Hypertrophic changes in the spine. Marilu Casatneda P.A.-C., M.S. IMG DIAGNOSTIC IMAG ING PROCEDURES Final Result from Last 3 Months Additional Health Concerns Infection Onset Date Last Indicated Protective Environment 09/20/2022 3 Insurance MEDICARE [facility] Advance Directives For more information, please contact: [phone] * Full Code (Latest Code Status on File) Date Activated Date Inactivated Comments 01/06/2022 5:12 PM 01/09/2022 4:47 PM Question Answer Comments Full Code: Discussed * Full Code Date Activated Date Inactivated Comments 06/28/2019 12:14 PM 06/29/2019 2:37 PM Question Answer Comments Full Code: Discussed Care Teams Skiver Heel Tap Relationship Specialty Start Date End Date Elsewhere, Pcp PCP - General Supervisor Stone 06/27/19
--- OUTSIDE RECORDS SUMMARY | 2024-06-12 02:18 | XMS_ITS | Continuity of Care Document ---
Author Name NwHIN User [id number] llowed Address Unknown Organization Unknown Address Unknown Procedures FILTER APPLIED:Only known Procedures with Onset Date within the last 5 years Procedure Date Procedure Provider Additiona l Information Status ASSAY THYROID STIM HORMONE (09374) Completed CHEMO IV INFUSION 1 HR (58074) Completed BILIRUBIN DIRECT (84362) Completed ROUTINE VENIPUNCTURE (70784) Completed COMPLETE CBC W/AUTO DIFF WBC (91847) Completed COMPREHEN METABOLIC PANEL (58666) Completed OFFICE O/P EST SF 10 MIN (67139) Completed CT SOFT TISSUE NECK W/DYE (78665) Completed CT THORAX DX C+ (71279) Completed CT ABD PELV W/CONTRAST (04613) Completed HEPATIC FUNCTION PANEL (14441) Completed EXTREMITY STUDY (36929) Completed OFFICE O/P EST LOW 20 MIN (97125) Completed EXTREMITY STUDY (56965) Completed ASSAY THYROID STIM HORMONE (37996) Completed TOTAL CORTISOL (44530) C ompleted CT THORAX DX C- (23238) Completed NEEDLE BIOPSY LYMPH NODES (03777) Completed ECHO GUIDE FOR BIOPSY (01453) Completed PET IMAGE W/CT SKULL-THIGH (70071) Completed BILIRUBIN TOTAL (53736) Completed ASSAY OF HAPTOGLOBIN QUANT (80659) Completed FLOWCYTOMETRY/ TC 1 MARKER (06642) Completed FLOWCYTOMETRY/TC ADD-ON (76062) Completed BILIRUBIN DIRECT (12025) Completed OFFICE O/P EST MOD 30 MIN (92292) Completed METABOLIC PANEL TOTAL CA (20874) Completed ASSAY OF BLOOD/URIC ACID (23974) Completed ASSAY OF PHOSPHORUS (24367) Completed LACTATE (LD) (LDH) ENZYME (36014) Completed TX/PRO/DX INJ SAME DRUG BUSINESS OBJECTS CONSULTANT (96200) Completed CHEMO IV INFUSION 1 HR (54021) Completed CHEMO IV INFUSION ADDL HR (48700) Completed OFFICE O/P EST SF 10 MIN (95051) Completed OFFICE O/P EST HI 40 MIN (39331) Completed ROUTINE VENIPUNCTURE (56349) Completed COMPLETE CBC W/AUTO DIFF WBC (58471) Completed COMPREHEN METABOLIC PANEL (64205) Completed OFF/OP EST MAY X REQ PHY/QHP (69730) Completed ROUTINE VENIPUNCTURE (02256) Completed EXTREMITY STUDY (62220) Completed COMPLETE CBC W/AUTO DIFF WBC (02827) Completed ASSAY OF PHOSPHORUS (61572) Completed HEPATITIS C AB TEST (99036) Completed HEPATITIS B SURFACE AG IA (34105) Completed ASSAY OF BLOOD/URIC ACID (45167) Completed ASSAY THYROID STIM HORMONE (90174) Completed COMPATIBILITY TEST ANTIGLOB (34045) Completed BLOOD TYPING SEROLOGIC RH(D) (35291) Completed TRANSFUSION BLD/BLD COMPNT (46352) Completed RBC ANTIBODY SCREEN (33789) Completed BLOOD TYPING SEROLOGIC ABO (23164) Completed IRON BINDING TEST (46942) Completed ASSAY OF IRON (68594) Co mpleted ASSAY OF FERRITIN (35532) Completed VITAMIN B-12 (69714) Com pleted CT ABD PELV W/CONTRAST (84615) Completed CT THORAX DX C+ (49095) Completed CT SOFT TISSUE NECK W/DYE (53856) Completed ASSAY OF FOLIC ACID SERUM (67028) Completed BILIRUBIN DIRECT (91754) Completed ASSAY OF HAPTOGLOBIN QUANT (42764) Completed ESCOBAR TEST DIRECT (73869) Completed FLOWCYTOMETRY/ TC 1 MARKER (34380) Completed FLOWCYTOMETRY/TC ADD-ON (47413) Completed BILIRUBIN TOTAL (89458) Completed OFFICE O/P EST HI 40 MIN (19540) Completed ROUTINE VENIPUNCTURE (09098) Completed COMPREHEN METABOLIC PANEL (44314) Completed LACTATE (LD) (LDH) ENZYME (88438) Completed COMPLETE CBC W/AUTO DIFF WBC (68422) Completed OFFICE O/P EST SF 10 MIN (18599) Completed OFFICE O/P EST MOD 30 MIN (42776) Completed Encounters FILTER APPLIED:Only known Encounters with Admission Date within the last 5 years Encounter Location Admission Discharge Billing Code [facility] Specialist A ttender Outpatient Birdie Hurtado Outpatient Birdie Hurtado Outpatient Birdie Hurtado Outpatient Birdie Hurtado Outpatient Birdie Hurtado Outpatient Victo cheryl Boss Outpatient Victo cheryl Boss Outpatient Birdie Hurtado Outpatient Birdie watts
--- NOTE | 2024-06-12 03:14 | CRLHL7_ITS ---
For Patients: As a result of the Century Cures Act, medical imaging exams and procedure reports are released immediately into your electronic medical record. You may view this report before your referring provider. If you have questions, please contact your health care provider. INDICATION: Cough. TECHNIQUE: Chest 2 views. COMPARISON: CT chest, abdomen, and pelvis 11/10/2023. FINDINGS: Cardiovascular and mediastinum: Stable cardiomediastinal silhouette. Mitral clip, unchanged. Lungs and pleural spaces: Scattered patchy opacities in the right lung. No pleural effusions or pneumothorax. Bones and soft tissues: No significant findings. IMPRESSION: Right lung patchy opacities, suspicious for pneumonia. Dictated by Jarad Branch MD @ 06/12/2024 3:39:49 AM (Electronically Signed)
[2024-06-12 03:15] LABS: PCR FLU A Negative PCR FLU A (Negative); PCR FLU B Negative PCR FLU B (Negative); PCR RSV Negative PCR RSV (Negative); SARS PCR* Negative SARS-CoV-2 (Negative)
--- NOTE | 2024-06-12 03:18 | ED.GENADULT ---
HPI - General Adult General Chief complaint: Cough Stated complaint: Trouble breathing, congestion, cough, fever Time Seen by Provider: 06/12/24 02:52 Source: patient and family History of Present Illness HPI narrative: 78-year-old immunocompromised male presents the emergency department for evaluation of congestion and cough for the past day and a half. recently of a rapidly progressive pneumonia 5 days ago. I was not involved in her care nor OR from milieu with her case. gives me permission to look through her records if this would be helpful for his care but technically I am not legally allowed to do so. He reports that he feels the congestion has increased a lot tonight. He is anticoagulated on Eliquis for AFib and does not have a history of pulmonary embolism. 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 He reports that he receives infusions from our outpatient cancer center. He denies history of COPD or tobacco use. He denies pertinent travel. There are no new unusual environmental exposures for mold, inhalational irritants or other infections. He has no obvious illness exposures besides his . He denies a prior history of any major pulmonary disease. He does have a history of heart disease with known mitral valve disease. Male was not recommending a replacement at this time but continues to monitor closely. No trauma or injury. Has not tried any oinv-izf-dufiuth cough suppressants or nebulizer treatments to help with symptoms. Past medical history is most notable for the AFib, squamous cell carcinoma and CLL. The medications listed are the same as what he describes to me. Nonsmoker. ROS is notable for the respiratory and generalized symptoms as above, otherwise denies times 12 systems. Related Data Home Medications ?Medication ?Instructions ?Recorded ?Confirmed rivaroxaban 20 mg tablet (Xarelto) 20 mg PO Q24H 12/07/21 05/10/24 alprazolam 0.25 mg tablet 0.25 mg PO DAILY PRN 12/16/21 05/10/24 famotidine 20 mg tablet (Pepcid) 20 mg PO DAILY 12/16/21 05/10/24 magnesium chloride 71.5 mg 71.5 mg PO QDAY 02/15/22 05/10/24 (magnesium chloride) tablet,delayed release (Slow-Mag) tamsulosin 0.4 mg capsule (Flomax) 0.4 mg PO QDAY 02/15/22 05/10/24 amiodarone 100 mg tablet 100 mg PO QDAY 11/11/22 05/10/24 metoprolol tartrate 25 mg tablet 25 mg PO BID 11/11/22 05/10/24 lisinopril 10 mg tablet 15 mg PO BID 03/03/23 05/10/24 calcium carbonate (Tums) 300 mg PO BID PRN 03/31/23 05/10/24 ferrous sulfate 324 mg (65 mg 972 mg PO QDAY 03/31/23 05/10/24 iron) tablet,delayed release atorvastatin 20 mg tablet 20 mg PO QDAY 11/17/23 05/10/24 furosemide 20 mg tablet 20 mg PO DAILY PRN 01/25/24 05/10/24 Previous Rx's ?Medication ?Instructions ?Recorded acalabrutinib maleate 100 mg 100 mg PO Q12H #60 tabs 10/27/23 tablet (Calquence (acalabrutinib maleate)) levothyroxine 112 mcg tablet 112 mcg PO QDAY #30 tabs 05/10/24 (Synthroid) azithromycin 250 mg tablet See Rx Instructions PO .COMPLEX #6 06/12/24 tabs cefuroxime axetil 500 mg tablet 500 mg PO BID 10 days #20 tabs 06/12/24 ipratropium 20 mcg-albuterol 100 1 puff inhalation Q6H #4 grams 06/12/24 mcg/actuation mist for inhalation (Combivent Respimat) Allergies Allergy/AdvReac Type Severity Reaction Status Date / Time [facility] Allergy Intermediate Rash Verified 05/10/24 09:55 Penicillins Allergy Verified 05/10/24 09:55 [facility] Medical History Hypothyroid ?E03.9 - Hypothyroidism, unspecified (ICD-10) Right leg swelling ?M79.89 - Other specified soft tissue disorders (ICD-10) 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 - Malignant neoplasm of major salivary gland, unspecified (ICD-10) Anemia ?D64.9 - Anemia, unspecified (ICD-10) GERD (gastroesophageal reflux disease) ?K21.9 - Gastro-esophageal reflux disease without esophagitis (ICD-10) CAD (coronary artery disease) ?I25.10 - Atherosclerotic heart disease of [place] coronary artery without angina pectoris (ICD-10) Pulmonary nodules ?R91.8 - Other nonspecific abnormal finding of lung field (ICD-10) History of cardioversion ?Z98.890 - Other specified postprocedural states (ICD-10) CLL (chronic lymphocytic leukemia) (~08/2018) ?C91.10 - Chronic lymphocytic leukemia of B-cell type not having achieved remission (ICD-10) Malignant melanoma ?C43.9 - Malignant melanoma of skin, unspecified (ICD-10) Anxiety ?F41.9 - Anxiety disorder, unspecified (ICD-10) BPH with obstruction/lower urinary tract symptoms ?N40.1 - Benign prostatic hyperplasia with lower urinary tract symptoms (ICD-10) ?N13.8 - Other obstructive and reflux uropathy (ICD-10) Prostate cancer ?C61 - Malignant neoplasm of prostate (ICD-10) Hypertension ?I10 - Essential (primary) hypertension (ICD-10) Paroxysmal atrial fibrillation ?I48.0 - Paroxysmal atrial fibrillation (ICD-10) Surgical History S/P mitral valve clip implantation (~2019) ?Z98.890 - Other specified postprocedural states (ICD-10) ?Z95.818 - Presence of other cardiac implants and grafts (ICD-10) History of tonsillectomy ?Z90.89 - Acquired absence of other organs (ICD-10) History of melanoma excision ?Z98.890 - Other specified postprocedural states (ICD-10) ?Z85.820 - Personal history of malignant melanoma of skin (ICD-10) History of cataract surgery ?Z98.49 - Cataract extraction status, unspecified eye (ICD-10) Hx of mitral valve repair ?Z98.890 - Other specified postprocedural states (ICD-10) Family History Other CHF (congestive heart failure) Hodgkins disease Social History Narrative: he is and here with his . He gets oncology care through [facility]. He gets primary care through Dr. Brian Coronado. He does not smoke. He drinks 1 glass of red wine daily. Smoking Status: Never smoker Do you use any of these nicotine containing products: None Second hand tobacco smoke exposure: No How often do you have a drink containing alcohol: never How often do you have six or more drinks on one occasion: Never AUDIT-C Alcohol total score: 0 Non-prescribed substance use: denies use service: No Exam Const: Vital Signs, click to edit/add: Vital Signs - 24 hr 06/12/24 02:27 Temperature 98.1 F Pulse Rate [Left P ulse Oximeter] 86 Respiratory Rate 20 Blood Pressure [Ri ght Upper Arm] 173/85 H Pulse Oximetry 95 Oxygen Delivery Me thod Room Air Common normals: no apparent distress General appearance: cooperative and well kempt HENMT: Common normals: normocephalic, moist oral mucous membranes and dentition normal Head and scalp: normocephalic Eye: Common normals: conjunctivae normal General eye: normal appearance of both eyes Conjunctiva: conjunctiva(e) normal Neck & C-Spine: Other: Visible large lymphadenopathy in the right periauricular/submandibular area, he reports this is his squamous cell carcinoma. Resp: Other: Mildly increased respiratory effort. Coarse bilateral rhonchi. Crackles left greater than right. Mild expiratory wheeze and prolongation of expiration. Cardio: Common normals: regular rate and regular rhythm Rate: regular rate Rhythm: regular rhythm Other: Rhythm sounds regular. I think I am hearing a systolic murmur also but the rhonchi or so loud it makes it difficult to tell. GI: Common normals: Normal to inspection, nondistended, normoactive bowel sounds present, soft to palpation, non-tender and no hepatosplenomegaly Palpation: soft and no hepatosplenomegaly Extremity: Common normals: normal to inspection and no pedal edema Neuro: Gait (neuro): normal gait Motor exam: no movement abnormalities noted Psych: Appearance: well kempt Attitude: engaged Mood and affect: euthymic mood Insight: insight good Judgement: judgment good Skin: Common normals: no rashes or lesions noted General skin exam: no rashes or lesions noted Course Course ED Course: 78-year-old male with a notable history of CLL, squamous cell carcinoma, immunocompromised with recent exposure to patient with respiratory illness and pneumonia who . Patient's lungs are very concerning for pneumonia and with his immunocompromised status, I am very concerned that he could rapidly worsen. Not showing any signs of significant respiratory distress or hypoxia at this time. Will place peripheral IV, typical labs looking for sepsis. Chest x-ray. Rocephin azithromycin IV low-dose of prednisone and DuoNeb. Await findings. Uncertain if he will need hospitalization, will base this off of laboratory findings. He does seem very reliable for follow-up if worsening, but will need initial aggressive treatment. Reevaluation(s) Time of Reevaluation #1: 05:07 Reevaluation #1: Patient feeling quite a bit better after the DuoNeb, congestion is improving. Chest x-ray or and lab results reviewed with patient. Clearly showing pneumonia. He is getting his Rocephin and azithromycin. No significant side effects from the steroid. We counseled on alarm symptoms. I am worried about him, especially if with his 's recent . His daughter it seems very attentive and helpful, I think that he also is highly likely to come back if there is any worsening. We reviewed the alarm symptoms that would warrant doing so extensively any verbalizes understanding and agreement. Will put him on Ceftin twice daily and azithromycin. Prescription for Combivent also sent. Written instructions provided, all questions answered. Vital Signs Vital signs: Initial Vital Signs Temperature 98.1 F 06/12/24 02:27 Temperature Source Temporal Artery Scan 06/12/24 02:27 Pulse Rate 86 06/12/24 02:27 Pulse Rhythm Regular 06/12/24 02:27 Respiratory Rate 20 06/12/24 02:27 Blood Pressure 173/85 H 06/12/24 02:27 Blood Pressure Mean 114 H 06/12/24 02:27 Blood Pressure Position Semi-Fowlers 06/12/24 02:27 Pulse Oximetry 95 06/12/24 02:27 Oxygen Delivery Method Room Air 06/12/24 02:27 Vital Signs Temperature 98.1 F 06/12/24 02:27 Pulse Rate 86 06/12/24 02:27 Respiratory Rate 20 06/12/24 02:27 Blood Pressure 173/85 H 06/12/24 02:27 Pulse Oximetry 95 06/12/24 02:27 Oxygen Delivery Method Room Air 06/12/24 02:27 Temperature 98.1 F 06/12/24 02:27 Pulse Rate 86 06/12/24 02:27 Respiratory Rate 20 06/12/24 02:27 Blood Pressure 173/85 H 06/12/24 02:27 Pulse Oximetry 95 06/12/24 02:27 Oxygen Delivery Method Room Air 06/12/24 02:27 Medications Administered Medications: Discontinued Medications Generic Name Dose Route Start Last Admin Trade Name Freq PRN Reason Stop Dose Admin Albuterol/Ipratropium 1 neb 06/12/24 03:14 06/12/24 03:50 Iprat-Albut 0.5-2.5 Mg/3 Ml Neb IH 06/12/24 03:15 1 neb ONCE ONE Administration Ceftriaxone Sodium 1 gm/ 100 mls @ 200 mls/hr 06/12/24 03:14 06/12/24 03:59 Sodium Chloride IVPB 06/12/24 03:15 200 mls/hr ONCE ONE Administration Methylprednisolone Sodium Succinate 40 mg 06/12/24 03:14 06/12/24 03:58 Methylprednisolone Sod Succ 40 Mg/Ml IVP 06/12/24 03:15 40 mg ONCE ONE Administration Medical Decision Making Lab Data Lab results reviewed: Yes I reviewed the patient's lab results Lab results narrative: White blood cell count is chronically elevated due to CLL. The hyponatremia is stable for patient. Viral swabs negative. Labs: Lab Results 06/12/24 06/12/24 06/12/24 Range/Units 02:34 03:33 03:58 WBC 22.09 H (4.50-11.00) K/uL RBC 2.64 L (4.30-5.90) m/uL Hgb 8.3 L (13.5-17.5) gm/dL Hct 26.8 L (37.0-53.0) % MCV 102 H (80-100) fL MCH 31 (26-34) pg MCHC 31 L (32-36) gm/dL RDW Coeff of Ekta 13.2 (11.5-15.5) % Plt Count 283 (140-440) K/uL Neut % (Auto) 31.7 L (42.0-72.0) % Lymph % (Auto) 58.7 H (20-44) % [place] % (Auto) 8.3 (0.0-11.0) % Eos % (Auto) 0.4 (0.0-7.0) % Baso % (Auto) 0.5 (0.0-3.0) % Neut # (Auto) 7.00 (1.7-7.0) K/uL Lymph # (Auto) 13.00 H (0.90-2.90) K/uL [place] # (Auto) 1.80 H (0.00-0.90) K/UL Eos # (Auto) 0.10 (0.00-0.50) K/uL Baso # (Auto) 0.10 (0.00-0.30) K/uL Abs Immat Gran (auto) 0.10 (0.00-0.30) K/uL Imm/Tot Granulo (auto) 0.4 % Sodium 126 L (135-149) mmol/L Potassium 4.0 (3.6-5.1) mmol/L Chloride 97 (96-114) mmol/L Carbon Dioxide 22 (20-32) mmol/L Anion Gap 7 (7-15) mEq/L BUN 18 (7-30) mg/dL Creatinine 0.9 (0.5-1.5) mg/dL Estimated Creat Clear 62.86 Estimated GFR 87 ml/min Glucose 98 (60-115) mg/dL Lactate 0.7 (0.5-1.9) mmol/L Calcium 7.8 L (8.4-10.6) mg/dL Total Bilirubin 2.5 H (0.1-1.5) mg/dL AST 17 (12-35) U/L ALT 11 (4-50) U/L Alkaline Phosphatase 81 (40-150) U/L C-Reactive Protein 2.0 H (0.5-1.0) mg/dL NT-Pro-B Natriuret Pep 1960 pg/mL Total Protein 5.4 L (6.0-8.3) g/dL Albumin 3.5 (3.3-5.0) g/dL Urine Color Yellow (Yellow) Urine Appearance Clear (Clear) Urine pH 6.0 (5.0-8.5) Ur Specific [place] 1.020 (1.000-1.030) Urine Protein 1+ A (Negative) Urine Glucose (UA) Negative (Negative) Urine Ketones Trace A (Negative) Urine Blood Trace-intact A (Negative) Urine Nitrite Negative (Negative) Urine Bilirubin Negative (Negative) Urine Urobilinogen 1.0 (0.2-1.0) Ur Leukocyte Esterase Negative (Negative) Urine RBC 0-2 (0-2) Urine WBC 2-5 (0-5) Ur Squamous Epith Cells Few (None-Few) Urine Bacteria Few A (None) SARS-CoV-2 (PCR) Negative SARS-CoV-2 (Negative) Influenza Type A (PCR) Negative PCR FLU A (Negative) Influenza Type B (PCR) Negative PCR FLU B (Negative) RSV (PCR) Negative PCR RSV (Negative) Imaging Data Chest x-ray: Attestation: I have reviewed the pertinent imaging results. My impression: Right greater than left pneumonia. No cardiomegaly or pleural effusion Radiologist's impression: IMPRESSION: Right lung patchy opacities, suspicious for pneumonia. Dictated by Jarad Branch MD @ 06/12/2024 3:39:49 AM Discharge Plan Discharge Clinical Impression: Acute pneumonia Patient Disposition: Home w/ Parent or Adult Condition: Improved Additional Instructions: As we discussed, your chest x-ray is consistent with pneumonia. Your blood work all looks stable for you which is great news. Your member that your immune system is more vulnerable to dangerous infections both because of your CLL but also because of your treatments for your cancers. I am quite worried that you could worsen but at this time, you do not need to be hospitalized. The antibiotic that I have given you will stay in your system for about 24 hours, they are the same ones that we would have used in the hospital. He will continue taking azithromycin and Ceftin per the package instructions. Your next doses will both be Tuesday morning. The Ceftin will be taken twice daily, the azithromycin once daily. For the azithromycin, you take 500 mg the 1st day and then 250 mg the remaining days. There is a temporary interaction with your amiodarone which is not of concern due to the short duration of treatment. I have given you a prescription for Combivent, and inhaler that has both a bronchodilator to help open up your lungs and mucus Buster. Use this every 6 hours for the next few weeks. You can decrease it to every 8 hours once things start to improve. Remember that the cough will often last for 4-6 weeks. Signs that would be worrisome would be significant weakness, severe shortness of breath, persistently high fevers or other alarming symptoms. Please come right back to the ED if you are feeling worse. I do believe that you are contagious and would like for you to try to quarantine for at least the next 2 days. Activity Level: Activity as Tolerated Discharge Diet: Regular Prescriptions: New Combivent Respimat 20-100 mcg/actuation mist 1 puff inhalation Q6H Qty: 4 1RF cefuroxime axetil 500 mg tablet 500 mg PO BID 10 Days Qty: 20 0RF azithromycin 250 mg tablet See Rx Instructions .ROUTE .COMPLEX Qty: 6 0RF Rx Instructions: For 250 mg dose pack: take 500 mg today (day 1), then 250 mg for 4 days (days 2-5) No Action Slow-Mag 71.5 mg tablet,delayed release (DR/EC) 71.5 mg PO QDAY tamsulosin [Flomax] 0.4 mg capsule 0.4 mg PO QDAY amiodarone 100 mg tablet 100 mg PO QDAY Patient Comments: dose started at 400mg/day X 14 days currently on 200mg X 28 days then will take 100mg/day metoprolol tartrate 25 mg tablet 25 mg PO BID calcium carbonate [Tums] 300 mg (750 mg) tablet,chewable 300 mg PO BID PRN ferrous sulfate 324 mg (65 mg iron) tablet,delayed release (DR/EC) 972 mg PO QDAY Calquence (acalabrutinib mal) 100 mg tablet 100 mg PO Q12H Qty: 60 11RF levothyroxine [Synthroid] 112 mcg tablet 112 mcg PO QDAY Qty: 30 6RF Rx Instructions: Take once daily in the morning at least an hour before food or other medications. alprazolam 0.25 mg tablet 0.25 mg PO DAILY PRN famotidine [Pepcid] 20 mg tablet 20 mg PO DAILY Xarelto 20 mg tablet 20 mg PO Q24H lisinopril 10 mg tablet 15 mg PO BID atorvastatin 20 mg tablet 20 mg PO QDAY furosemide 20 mg tablet 20 mg PO DAILY PRN Rx Instructions: as directed by PA in chief operator hydroformer (Benigno) Follow Up/Referrals: GLENNA THOMAS DO [Primary Care Provider] - Stand Alone Forms: [facility] Info Instructions
--- OUTSIDE RECORDS SUMMARY | 2024-06-12 03:22 | XMS_ITS | Clinical Summary ---
Author Organization [facility] Address [address] [place] [address] Care Team Providers Care Waste Management Specialist Name Role Phone Elsewhere, Pcp Primary Care Provider Unavailabl e Source Comments Patient records contain information from all sites at [facility]. For routine questions regarding patient records, call [phone] during business hours, M-F 8:00 AM - 5:00 PM Central Time. Record requests for emergency care only can be directed to [phone] at any time.[facility] Allergies Active Allergy Reactions Criticality Noted Date [...] 04/09/2024 Refill Department of Cardiovascular Medicine in [place] [id number] [place] [phone] Ron Santana M.D., Ph.D. Med Refill 03/29/2024 Orders Only Department of Oncology in [address] [phone] Birdie Hurtado M.D. 03/26/2024 10:56 AM CDT - 03/26/2024 11:59 PM CDT Hospital Encounter Department of Radiology, [facility] in [place], [place] [address] [place] [address] Birdie Hurtado M.D. 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 Atrial Fibrillation Unspecified (HCC); Regurgitation Mitral 03/13/2024 8:12 AM CDT - 03/13/2024 11:59 PM CDT Hospital Encounter Department of Laboratory Medicine and Pathology, [facility] in [place], [place] [address] [place] [phone] Loraine Thakkar M.D. Atrial Fibrillation Unspecified (HCC); Regurgitation Mitral; Repair Mitral Valve Status Post Discharge Disposition: Home or Self Care 03/13/2024 7:54 AM CDT - 03/13/2024 8:11 AM CDT Hospital Encounter Department of Radiology, [facility] in [place], [place] [address] [place] [phone] Marilu Castaneda P.A.-Nikki., M.S. Atrial Fibrillation Unspecified [...] 0.6 oz pur e alcohol) [facility] Utilities Answer Date Recorded In the past 12 months has e [employer], gas, oil, or water [employer] threatened to shut off services in your [...] How often do you attend restoration or jewish serv ices? Never 06/30/2021 Do [...] and heating? Not hard at all 06/30/2021 [facility] - Occupational [...] Sex Assigned at Male 06/30/2021 12:19 PM REMNANT SORTER Legal Sex Male 7:31 AM CDT Gender Identity Male 06/30/2021 12:19 PM REMNANT SORTER Sexual Orientation Straight 06/30/2021 12 :19 PM REMNANT SORTER Last Filed Vital Signs Vital Sign Reading Time Taken Comments Blood Pressure 166/75 03/13/2024 9:49 AM CDT Avg of 3 Pulse 64 03/13/2024 9:49 AM CDT Temperature 36.6 C (97.9 F) 05/03/2023 3:58 PM REMNANT SORTER Respiratory Rate 16 01/13/2024 12:18 PM CDT [...] this topic Medical Devices Implanted Type Area Valve Mechanic Device Identifier Shelf Expiration Date Model / Serial / Lot Clp Tania Clip Del Sys Xtr - [id number] Implanted:Qty : 1 on 06/28/2019 by Hernandez Echevarria M.D. at [facility] Mitralclip N/A: Heart Reese 03/21/2020 [id number] / / [id number] Description:Mitral Valve Ocular Lens Ocular Lens Eye Description:Right Ocular Lens Ocular Lens Eye Description:Left Procedures Procedure Name Priority Date/Time Associated Diagnosis Comments PET CT SKULL TO THIGH RAD - Routine (most inpatients and all outpatients) 03/26/2024 1:13 PM CDT Malignant Neoplasm Of Lung Squamous Cell Right (HCC) SPSMA RESULT Routine 03/13/2024 8:22 AM CDT [place] T4 FREE Routine 03/13/2024 8:22 AM CDT [...] LOS, PET ARZ LOS, Nuclear Medicine PET [facility], Nuclear Medicine N/A Positron Emission Tomography [...] RADIOPHARMACEUTICAL/MEDS: Route: intravenous fludeoxyglucose F 18 injection FPC (FDG F-18),9.92 millicurie TECHNIQUE: F-18 FDG PET/CT [...] RADIOPHARMACEUTICAL/MEDS: Route: intravenous fludeoxyglucose F 18 injection FPC (FDG F-18),9.92 millicurie TECHNIQUE: F-18 FDG PET/CT [...] M.S. LAB BLOOD ADD-ON Fi nal Result [address] [address], [facility] [address] [place] [address] * (ABNORMAL) Lipid Panel (03/13/2024 8:22 AM [...] M.D. LAB BLOOD ADD-ON Final Resul t [address] [address], [facility] [place] [address] [place] [address] * (ABNORMAL) Morphology Eval (special smear) (03/13/2024 [...] Final Resul t Performing Organization Address [facility] [place] [address] * (ABNORMAL) Thyroid Function [place] (03/13/2024 8:22 AM CDT) Pathologist [facility] TSH, Sensitive 10.0(H) 0.3 - 4.2 mIU/L 03/13/2024 10:34 AM CDT DT Blood (Blood, Venous) 03/13/2024 8:22 AM CDT 03/13/2024 9:03 AM CDT us Marilu Castaneda P.A.-C., M.S. LAB BLOOD ADD-ON Fi nal Result Performing Organization Address City/[facility]/[place] [address] * (ABNORMAL) NT-Pro B-Type Natriuretic Peptide (BNP) [...] Final Resul t Performing Organization Address [facility] Co de Phone Number [address] [place] [address] * Thyroperoxidase (TPO) Antibodies (03/13/2024 8:22 AM CDT) Thyroperoxidase Ab, S <15.0 <34.0 IU/mL 03/13/2024 10:55 AM CDT DTL Blood 03/13/2024 8:22 AM CDT 03/13/2024 9:03 AM CDT Marilu Castaneda P.A.-C., M.S. LAB BLOOD ADD-ON Fi nal Result Performing Organization Address City/[facility] [address] [facility]/ZIP Co de Phone Number [facility] [address] [place] [address] * (ABNORMAL) Prothrombin Time (PT) (03/13/2024 8:22 [...] M.D. LAB BLOOD ADD-ON Final Resul t [facility] [address] [place] [address], [facility] [address] [place] [address] * (ABNORMAL) CBC with Differential, Blood (03/13/2024 [...] ADD-ON Final Resul t Performing Organization Address City/[facility] [address]/ZIP Co de Phone Number [facility] [address] [place] [address], [facility] [address] [place], [place] [address] [place] [address] [address] [place] [address] * Glucose, Fasting (03/13/2024 8:22 AM CDT) Glucose, P 90 70 - 100 mg/dL 03/13/2024 9:17 AM CDT DTL Last Intake 11 hr 03/13/2024 8:59 AM CDT DTL Blood (Blood, Venous) 03/13/2024 8:22 AM CDT 03/13/2024 8:59 AM CDT us Loraine Thakkar M.D. LAB BLOOD NON ADD-ON Final R esult Performing Organization Address City/[facility] [address]/ZIP Co de Phone Number [facility] [address] [place], [place] [address] [address] [place] [address] * (ABNORMAL) Comprehensive Metabolic Panel (03/13/2024 8:22 [...] BLOOD ADD-ON Fi nal Result [facility] [address] [place] [address], [facility] DTL [facility] [address] [place] [address] * DX Chest AP or PA and [...] Indicated Protective Environment 09/20/2022 3 Insurance MEDICARE [facility] Advance Directives For more information, please contact: [phone] * Full Code (Latest Code Status on File) Date Activated Date Inactivated Comments 01/06/2022 5:12 PM 01/09/2022 4:47 PM Question Answer Comments Full Code: Discussed * Full Code Date Activated Date Inactivated Comments 06/28/2019 12:14 PM 06/29/2019 2:37 PM Question Answer Comments Full Code: Discussed Care Teams Waste Management Specialist Relationship Specialty Start Date End Date Elsewhere, Pcp PCP - General Engineering Instructor 06/27/19
--- OUTSIDE RECORDS SUMMARY | 2024-06-12 03:22 | XMS_ITS | Clinical Summary ---
Author Organization [facility] Address [place], [place] [address] Care Team Providers Care Chemistry Technologist Name Role Phone Nikki Reilly DO Primary Care Provider [phone] Allergies Active Allergy Reactions Criticality Noted Date [...] Type Department Care Team Description 05/18/2024 Telephone [facility] [address] [facility] [address] Nikki Reilly DO Concerns (Blood Pressure) 05/17/2024 2:05 PM DEVELOPMENT MECHANIC Office Visit [facility] [address] [place] [address] Nikki Reilly DO Medicare ANNUAL (subsequent) Visit (78 year old ) 05/17/2024 Travel 05/01/2024 Telephone [facility] [address] [place] [address] Chris Thomas MD Results 04/30/2024 2:15 PM DEVELOPMENT MECHANIC Office Visit [facility] [address] [place] [address] Chris Thomas MD ER Follow up (Cardioversion, hyponatremia - needs repeat sodium) 04/30/2024 Travel 04/27/2024 Telephone [facility] [address] [place] [address] Nikki Reilly, Lab from Last 3 Months [...] on file Legal Sex Male 7:17 AM DEVELOPMENT MECHANIC Gender Identity Not on file Sexual Orientation Not on file Obstetrics History Last Filed Vital Signs Vital Sign Reading Time Taken Comments Blood Pressure 160/82 05/17/2024 2:08 PM DEVELOPMENT MECHANIC rec heck Pulse 62 05/17/2024 2:05 PM DEVELOPMENT MECHANIC Temperature 36.9 C (98.4 F) 04/23/2020 11:09 AM DEVELOPMENT MECHANIC Respiratory Rate 16 03/20/2020 2:20 PM CDT Oxygen Saturation 100% 05/17/2024 2:05 PM DEVELOPMENT MECHANIC Inhaled Oxygen Concentration - - Weight 76.5 kg (168 lb 9.6 oz) 05/17/2024 2:05 P M DEVELOPMENT MECHANIC Height 175.2 cm (5' 8.98) 05/17/2024 2:05 PM CS T Body Mass Index 24.91 05/17/2024 2:05 PM DEVELOPMENT MECHANIC Plan of Treatment Health Maintenance Due Date [...] BASIC METABOLIC PANEL Routine 04/30/2024 2:55 PM DEVELOPMENT MECHANIC Hyponatremia TSH Routine 04/30/2024 2:55 PM DEVELOPMENT MECHANIC Hypothyroidism (acquired) ANTI HCV Routine 03/09/2018 10:39 AM CDT Need for hepatitis C screening test from Last 3 Months or Most Recently Relevant to Health Maintenance Results * (ABNORMAL) TSH (04/30/2024 2:55 PM DEVELOPMENT MECHANIC) TSH 8.39(H) 0.40 - 4.50 mIU/L [facility] Blood BLOOD SPECIMEN / Unknown 04/30/2024 2:55 PM DEVELOPMENT MECHANIC 04/30/2024 2:56 PM DEVELOPMENT MECHANIC Chris Thomas MD CHEMISTRY Final Result Performing Organization Address City/[facility]/ZIP Co de Phone Number [facility] [address] [place] [address], [facility] [address] [place] [address] * (ABNORMAL) BASIC METABOLIC PANEL (04/30/2024 2:55 PM DEVELOPMENT MECHANIC) Pathologist [facility] GLUCOSE 76 [phone] [...] BLOOD SPECIMEN / Unknown 04/30/2024 2:55 PM DEVELOPMENT MECHANIC 04/30/2024 2:56 PM DEVELOPMENT MECHANIC Chris Thomas MD CHEMISTRY Final Result Performing Organization Address City/[facility]/ZIP Co de Phone Number [employer] [facility] [address] [place] [address], [facility] [address] [place] [address] * ANTI HCV [83365.2] (03/09/2018 10:39 AM CDT) HEPATITIS C ANTIBODY Non-React [place] Non-React ir[place] 03/09/2018 5:05 PM CDT [facility] Comment:Antibodies to HCV no t detected; does not exclude the possibility of exposure to HCV. Blood BLOOD SPECIMEN / Unknown Venipuncture / Unknown 03/09/2018 10:39 AM CDT 03/09/2018 10:39 AM CDT Ron Garcia MD SEND OUTS Final Resu lt [facility] [address] [place] [address], from Last 3 Months or Most Recently Relevant to Health Maintenance Insurance MEDICARE PART A HB ONLY MEDICARE PART B HB ONLY [place] BL[place] HB ONLY [place] BLUE MR PB ONLY Advance Directives * Full Code (Latest Code Status on File) Date Activated Date Inactivated Comments 11/22/2011 11:07 AM 11/22/2011 3:00 PM * Full Code Date Activated Date Inactivated Comments 11/22/2011 9:03 AM 11/22/2011 11:07 AM Care Teams Chemistry Technologist Relationship Specialty Start Date End Date Nikki Reilly DO [address] [place] [address] PCP - General Family Practice 12/15/22
--- OUTSIDE RECORDS SUMMARY | 2024-06-12 03:23 | XMS_ITS | Continuity of Care Document ---
Author Name [facility] User [id number] Address Unknown Organization Unknown Address Unknown Procedures FILTER APPLIED:Only known Procedures with Onset Date within the last 5 years Procedure Date Procedure Provider Additiona l Information Status ASSAY THYROID STIM HORMONE (18050) Completed CHEMO IV INFUSION 1 HR (67989) Completed BILIRUBIN DIRECT (64738) Completed ROUTINE VENIPUNCTURE (61938) Completed COMPLETE CBC W/AUTO DIFF WBC (95658) Completed COMPREHEN METABOLIC PANEL (53142) Completed OFFICE O/P EST SF 10 MIN (49634) Completed CT SOFT TISSUE NECK W/DYE (80635) Completed CT THORAX DX C+ (79668) Completed CT ABD PELV W/CONTRAST (34620) Completed HEPATIC FUNCTION PANEL (62374) Completed EXTREMITY STUDY (37941) Completed OFFICE O/P EST LOW 20 MIN (85050) Completed EXTREMITY STUDY (99641) Completed ASSAY THYROID STIM HORMONE (51267) Completed TOTAL CORTISOL (26073) C ompleted CT THORAX DX C- (37765) Completed NEEDLE BIOPSY LYMPH NODES (45014) Completed ECHO GUIDE FOR BIOPSY (09051) Completed PET IMAGE W/CT SKULL-THIGH (04087) Completed BILIRUBIN TOTAL (82532) Completed ASSAY OF HAPTOGLOBIN QUANT (11747) Completed FLOWCYTOMETRY/ TC 1 MARKER (15310) Completed FLOWCYTOMETRY/TC ADD-ON (35983) Completed BILIRUBIN DIRECT (30044) Completed OFFICE O/P EST MOD 30 MIN (20250) Completed METABOLIC PANEL TOTAL CA (30851) Completed ASSAY OF BLOOD/URIC ACID (13426) Completed ASSAY OF PHOSPHORUS (81278) Completed LACTATE (LD) (LDH) ENZYME (51889) Completed TX/PRO/DX INJ SAME DRUG BUS AND [place] INSPECTING DISPATCHER (85904) Completed CHEMO IV INFUSION 1 HR (39598) Completed CHEMO IV INFUSION ADDL HR (55166) Completed OFFICE O/P EST SF 10 MIN (40582) Completed OFFICE O/P EST HI 40 MIN (24480) Completed ROUTINE VENIPUNCTURE (04732) Completed COMPLETE CBC W/AUTO DIFF WBC (80073) Completed COMPREHEN METABOLIC PANEL (70220) Completed OFF/OP EST MAY X REQ PHY/QHP (65801) Completed ROUTINE VENIPUNCTURE (71975) Completed EXTREMITY STUDY (80051) Completed COMPLETE CBC W/AUTO DIFF WBC (00819) Completed ASSAY OF PHOSPHORUS (89053) Completed HEPATITIS C AB TEST (50808) Completed HEPATITIS B SURFACE AG IA (71929) Completed ASSAY OF BLOOD/URIC ACID (52145) Completed ASSAY THYROID STIM HORMONE (84793) Completed COMPATIBILITY TEST ANTIGLOB (09435) Completed BLOOD TYPING SEROLOGIC RH(D) (87596) Completed TRANSFUSION BLD/BLD COMPNT (86683) Completed RBC ANTIBODY SCREEN (46439) Completed BLOOD TYPING SEROLOGIC ABO (68622) Completed IRON BINDING TEST (48345) Completed ASSAY OF IRON (29280) Co mpleted ASSAY OF FERRITIN (34190) Completed VITAMIN B-12 (13359) Com pleted CT ABD PELV W/CONTRAST (00230) Completed CT THORAX DX C+ (00428) Completed CT SOFT TISSUE NECK W/DYE (78627) Completed ASSAY OF FOLIC ACID SERUM (80677) Completed BILIRUBIN DIRECT (38912) Completed ASSAY OF HAPTOGLOBIN QUANT (12539) Completed ESCOBAR TEST DIRECT (92831) Completed FLOWCYTOMETRY/ TC 1 MARKER (04019) Completed FLOWCYTOMETRY/TC ADD-ON (88315) Completed BILIRUBIN TOTAL (11310) Completed OFFICE O/P EST HI 40 MIN (88350) Completed ROUTINE VENIPUNCTURE (57942) Completed COMPREHEN METABOLIC PANEL (91881) Completed LACTATE (LD) (LDH) ENZYME (58298) Completed COMPLETE CBC W/AUTO DIFF WBC (03672) Completed OFFICE O/P EST SF 10 MIN (68579) Completed OFFICE O/P EST MOD 30 MIN (26096) Completed Encounters FILTER APPLIED:Only known Encounters with Admission Date within the last 5 years Encounter Location Admission Discharge Billing Code Superintendent System Operation A ttender Outpatient Birdie Hurtado Outpatient Birdie Hurtado Outpatient Birdie Hurtado Outpatient Birdie Hurtado Outpatient Birdie Hurtado Outpatient Victo cheryl Boss Outpatient Victo cheryl Boss Outpatient Birdie Hurtado Outpatient Birdie watts
--- OUTSIDE RECORDS SUMMARY | 2024-06-12 03:23 | XMS_ITS ---
Author Organization [facility] Address [address] [place] [address] Care Team Providers Care Grails Web Application Developer Name Role Phone Elsewhere, [...] treatments are documented for this patient in [facility]. Treatments may have been administered in another system.
--- OUTSIDE RECORDS SUMMARY | 2024-06-12 03:23 | XMS_ITS | Referral Summary ---
Author Organization [facility] Address [address] [place] [address] Care Team Providers Care Chrome Polisher Name Role Phone Elsewhere, Pcp Primary Care Provider Unavailabl e Source Comments Patient records contain information from all sites at [facility]. For routine questions regarding patient records, call [phone] during business hours, M-F 8:00 AM - 5:00 PM Central Time. Record requests for emergency care only can be directed to [phone] at any time.[facility] Encounters Date Type Department Care Team Description 04/09/2024 Refill Department of Cardiovascular Medicine in [place], [place] [address] [place] [address] Ron Santana M.D., Ph.D. Med Refill 03/29/2024 Orders Only Department of Oncology in [address] [address] Birdie Hurtado M.D. 03/26/2024 10:56 AM CDT - 03/26/2024 11:59 PM CDT Hospital Encounter Department of Radiology, [facility] in [place], [place] [address] [place] [address] Birdie Hurtado M.D. Malignant Neoplasm Of Lung Squamous Cell Right (HCC) Discharge Disposition: Home or Self Care 03/21/2024 9:30 AM CDT Immunization Section of Infectious Diseases in [place], [place] [address] [place] [address] 03/13/2024 7:54 AM CDT - 03/13/2024 8:11 AM CDT Hospital Encounter Department of Radiology, [facility] in [place], [place] [address] [place] [address] Marilu Castaneda P.A.-C., M.S. Atrial Fibrillation Unspecified (HCC); Regurgitation Mitral Discharge Disposition: Home or Self Care 03/13/2024 8:12 AM CDT - 03/13/2024 11:59 PM CDT Hospital Encounter Department of Laboratory Medicine and Pathology, [facility], in [place], [place] [address] [place] [address] Loraine Thakkar M.D. Atrial Fibrillation Unspecified (HCC); Regurgitation Mitral; Repair Mitral Valve Status Post Discharge Disposition: Home or Self Care 03/13/2024 10:00 AM CDT Comprehensive Visit Department of Cardiovascular Medicine in [place], [place] [address] [place] [address] Loraine Thakkar M.D. Atrial Fibrillation Unspecified (HCC); [...] drink = 0.6 oz pur e alcohol) [facility] Utilities Answer Date Recorded In the past 12 months has e [employer], [employer], oil, or water Make My plate threatened to shut off services in your [...] How often do you attend alevism or jainism serv ices? Never 06/30/2021 Do [...] 06/30/2021 [facility] - Occupational Stress Questionnaire Answer [...] your living situation today? I [facility] live 01/13/2024 Education Answer Date Recorded What is the highest level of school you have completed or the highest degree you have received? Professional school degree (e.g., MD, DDS, DVM, GRACIELA) 06/30/2021 Sex and Gender Information Value Date Recorded Sex Assigned at Male 06/30/2021 12:19 PM COOPERATIVE MANAGER Legal Sex Male 7:31 AM CDT Gender Identity Male 06/30/2021 12:19 PM COOPERATIVE MANAGER Sexual Orientation Straight 06/30/2021 12 :19 PM COOPERATIVE MANAGER Last Filed Vital Signs Vital Sign Reading Time Taken Comments Blood Pressure 166/75 03/13/2024 9:49 AM CDT Avg of 3 Pulse 64 03/13/2024 9:49 AM CDT Temperature 36.6 C (97.9 F) 05/03/2023 3:58 PM COOPERATIVE MANAGER Respiratory Rate 16 01/13/2024 12:18 PM CDT Oxygen Saturation 95% 01/13/2024 12:20 PM CDT Inhaled Oxygen Concentration - - Weight 76 kg (167 lb 8.8 oz) 03/13/2024 9:49 AM CDT Height 178.2 cm (5' 10.16) 03/13/2024 9:49 AM C DT Body Mass Index 23.93 03/13/2024 9:49 AM CDT Plan of Treatment Not on file Medical Devices Implanted Type Area Feather Edger Device Identifier Shelf Expiration Date Model / Serial / Lot Clp Tania Clip Del Sys Xtr - [id number] Implanted:Qty : 1 on 06/28/2019 by Hernandez Echevarria M.D. at [facility] Mitralclip N/A: Heart [place] 03/21/2020 [id number] / / [id number] Description:Mitral Valve Ocular Lens Ocular Lens Eye Description:Right Ocular Lens Ocular Lens Eye Description:Left Procedures Procedure Name Priority Date/Time Associated Diagnosis Comments PET CT SKULL TO THIGH RAD - Routine (most inpatients and all outpatients) 03/26/2024 1:13 PM CDT Malignant Neoplasm Of Lung Squamous Cell Right (HCC) SPSMA RESULT Routine 03/13/2024 8:22 AM CDT FL T4 FREE Routine 03/13/2024 8:22 AM [...] M.S. LAB BLOOD ADD-ON Fi nal Result [facility] [address] [place] [address], [facility] [address] [place] [address] * (ABNORMAL) Lipid Panel (03/13/2024 8:22 AM [...] M.D. LAB BLOOD ADD-ON Final Resul t [facility] [address] [place] [address], [facility] [address] [place] [address] * (ABNORMAL) Morphology Eval (special smear) (03/13/2024 [...] M.D. LAB BLOOD [place] [address], [facility] [address] [place] [address] * (ABNORMAL) Thyroid Function [place]anna (03/13/2024 8:22 AM CDT) TSH, Sensitive 10.0(H) 0.3 - 4.2 mIU/L 03/13/2024 10:34 AM CDT DTL Blood (Blood, Venous) 03/13/2024 8:22 AM CDT 03/13/2024 9:03 AM CDT us Marilu Castaneda P.A.-C., M.S. LAB BLOOD ADD-ON Fi nal Result [facility] [address] [place] [address] * (ABNORMAL) NT-Pro B-Type Natriuretic Peptide (BNP) (03/13/2024 8:22 AM CDT) NT-Pro BNP 974(H) <=540 pg/mL 03/13/2024 10:34 AM CDT [facility] Comment: NT-proBNP values less than 300 pg/mL [...] M.D. LAB BLOOD ADD-ON Final Resul t [facility] [address] [place] [address] * Thyroperoxidase (TPO) Antibodies (03/13/2024 8:22 AM CDT) Thyroperoxidase Ab, S <15.0 <34.0 IU/mL 03/13/2024 10:55 AM CDT [facility] Blood 03/13/2024 8:22 AM CDT 03/13/2024 9:03 AM CDT Marilu Castaneda P.A.-C., M.S. LAB BLOOD ADD-ON Fi nal Result [facility] [address] [place] [address] * (ABNORMAL) Prothrombin Time (PT) (03/13/2024 8:22 AM CDT) Pathologist [facility] Prothrombin Time, P 27.6(H) 9.4 - 12.5 sec 03/13/2024 9:06 AM CDT DTL INR 2.5 0.9 - 1.1 03/13/2024 9:06 AM CDT DTL Comment: ----ADDITIONAL INFORMATION---- Standard intensity warfarin therapeutic range: 2.0 to 3.0 High intensity warfarin therapeutic range: 2.5 to 3.5 Blood (Blood, Venous) 03/13/2024 8:22 AM CDT 03/13/2024 8:47 AM CDT us Loraine Thakkar M.D. LAB BLOOD ADD-ON Final Resul t [facility] [address] [place] [address], [facility] [address] [place] [address] * (ABNORMAL) CBC with Differential, Blood (03/13/2024 8:22 AM CDT) [facility] Hemoglobin 9.4(L) 13.2 - 16.6 g/dL 03/13/2024 [...] - 9.6 x10(9)/L 03/13/2024 11:05 AM CDT [facility] Comment:Results confirmed by smear. Neutrophils See Comment 1.56 - 6.45 x10(9)/L 03/13/2024 11:05 AM CDT [facility] Comment:Auto-diff results no t valid. See manual differential. Blood (Blood, Venous) 03/13/2024 8:22 AM CDT 03/13/2024 8:47 AM CDT Loraine Thakkar M.D. LAB BLOOD ADD-ON Final Resul t Performing Organization Address City/[facility] Co de Phone Number [facility] [address] [place] [address], [facility] [address] [place], [place] [address] [place] [address] [address] [place] [address] * Glucose, Fasting (03/13/2024 8:22 AM CDT) Pathologist [facility] Glucose, P 90 70 - 100 mg/dL 03/13/2024 9:17 AM CDT DTL Last Intake 11 hr 03/13/2024 8:59 AM CDT DTL Blood (Blood, Venous) 03/13/2024 8:22 AM CDT 03/13/2024 8:59 AM CDT us Loraine Thakkar M.D. LAB BLOOD NON ADD-ON Final R esult Performing Organization Address City/[facility]/ZIP Co de Phone Number [facility] [address] [place] [address], [facility] [address] [place] [address] * (ABNORMAL) Comprehensive Metabolic Panel (03/13/2024 8:22 [...] M.S. LAB BLOOD ADD-ON Fi nal Result [facility] [address] [place] [address], [place] DTL [facility] [address] [place] [address] * DX Chest AP or PA and [...] Indicated Protective Environment 09/20/2022 3 Insurance MEDICARE [facility] Advance Directives For more information, please contact: [phone] * Full Code (Latest Code Status on File) Date Activated Date Inactivated Comments 01/06/2022 5:12 PM 01/09/2022 4:47 PM Question Answer Comments Full Code: Discussed * Full Code Date Activated Date Inactivated Comments 06/28/2019 12:14 PM 06/29/2019 2:37 PM Question Answer Comments Full Code: Discussed Care Teams Chrome Polisher Relationship Specialty Start Date End Date Elsewhere, Pcp PCP - General Sprinkler Truck Driver 06/27/19
--- OUTSIDE RECORDS SUMMARY | 2024-06-12 03:23 | XMS_ITS ---
Author Organization [facility] Address [address] [place] [address] Care Team Providers Care Guidance Counselor Name Role Phone Unavailable Unavailable Unavailable Surgery Details Not on file Complications Check Surgery Details section. Procedure Estimated Blood Loss Check Surgery Details section. Procedure Findings Check Surgery Details section. Procedure Specimens Taken Check Surgery Details section.
[2024-06-12 03:45] LABS: Appearance Urine Clear (Clear); Bilirubin Urine Negative (Negative); Blood Urine Trace-intact (Negative); Color Urine Yellow (Yellow); Glucose Urine Negative (Negative); Ketones Urine Trace (Negative); Leukocyte Esterase Urine Negative (Negative); Nitrite Urine Negative (Negative); Protein Urine 1+ (Negative)
[2024-06-12] MEDS: IPRAT-ALBUT 0.5-2.5 MG/3 ML NEB 1 NEB IH (03:50)
[2024-06-12 03:54] LABS: Bacteria Urine Few; RBC Urine 0-2 (0-2); Squamous Epithelial Cell Urine Few (None-Few)
[2024-06-12] MEDS: METHYLPREDNISOLONE SOD SUCC 40 MG/ML IVP (03:58)
[2024-06-12] MEDS: cefTRIAXone 1 GM in 0.9 % SODIUM CHLORIDE Mini-bag 100 ML IVPB (03:59)
[2024-06-12 04:13] LABS: Lactate Sepsis w/Reflex* 0.7 mmol/L (0.5-1.9)
[2024-06-12 04:19] LABS: Basophils Percent Auto 0.5 % (0.0-3.0); Eosinophils Percent Auto 0.4 % (0.0-7.0); Hematocrit* 26.8 % (37.0-53.0); Hemoglobin* 8.3 gm/dL (13.5-17.5); Immature Granulocytes Pct Auto 0.4 %; Lymphocytes Percent Auto 58.7 % (20-44); Mean Corpuscular HGB Conc 31 gm/dL (32-36); Mean Corpuscular Hemoglobin 31 pg (26-34); Mean Corpuscular Volume 102 fL (80-100); Monocytes Percent Auto 8.3 % (0.0-11.0); Neutrophils Percent Auto 31.7 % (42.0-72.0); Platelet Count* 283 K/uL (140-440); RDW Coefficient of Variation % 13.2 % (11.5-15.5); Red Blood Count* 2.64 m/uL (4.30-5.90); White Blood Count* 22.09 K/uL (4.50-11.00)
[2024-06-12 04:21] LABS: Slide Review Reflex No
[2024-06-12 04:33] LABS: Albumin* 3.5 g/dL (3.3-5.0); Chloride* 97 mmol/L (96-114); Sodium* 126 mmol/L (135-149)
[2024-06-12 04:35] LABS: Creatinine* 0.9 mg/dL (0.5-1.5); Est. Creatinine Clearance* 62.86; Estimated Glomerular Filt Rate 87 ml/min
[2024-06-12 04:36] LABS: Alanine Aminotransferase* 11 U/L (4-50); Alkaline Phosphatase* 81 U/L (40-150); Anion Gap 7 mEq/L (7-15); Aspartate Amino Transferase* 17 U/L (12-35); Bilirubin Total* 2.5 mg/dL (0.1-1.5); Blood Urea Nitrogen* 18 mg/dL (7-30); Carbon Dioxide* 22 mmol/L (20-32); Glucose* 98 mg/dL (60-115); Total Protein* 5.4 g/dL (6.0-8.3)
[2024-06-12 04:37] LABS: Calcium* 7.8 mg/dL (8.4-10.6)
[2024-06-12] MEDS: AZITHROMYCIN 500 MG in 0.9 % SODIUM CHLORIDE 250 ml 250 ML 255 MG IVPB (04:55)
[2024-06-12 05:00] LABS: NT Pro B Type NatriureticPept* 1960 pg/mL
--- NOTE | 2024-07-06 15:02 | PM.DS1 ---
DS: Providers Provider Date Seen: 06/18/24 Date of admission: 06/13/24 Primary care physician: GLENNA THOMAS DO Admitting Clinician: Dr. Benjie Woodard Attending Physician on discharge: Bandar Beavers MD Date of Discharge: 06/18/24 DS: Diagnosis Discharge Diagnosis (1) Acute hypoxemic respiratory failure: Status: Acute Problem details: On admission he is febrile, tachypneic, tachycardic with hypoxia, 83% on room air. Chest x-ray shows right middle lobe infiltrate. Will treat as a community-acquired pneumonia. Initially in the hospital he was getting worse so antibiotic spectrum was broadened to vancomycin, azythromycin, imipenem. -as of the morning of 06/15/2024 he is no longer requiring oxygen supplementation to maintain resting room air oxygen saturations greater than 88%. (2) Community acquired pneumonia: Status: Acute Problem details: Initial clinical diagnosis is community-acquired pneumonia. Also concern for pneumonitis from immune checkpoint inhibitors, for which reason he was started on the prednisone 70 mg once daily yesterday. -nasal MRSA swab negative. Stop IV vancomycin. Continue with imipenem and azithromycin. Rediscussed with infectious disease specialists on 06/18/2024 who concurred with stopping all antibiotics upon discharge. (3) Hyponatremia: Status: Acute Problem details: Acute on chronic. Likely related to pneumonia, chronic medications. Continue to follow. Fluid restriction. -sodium 126 ->129 06/30 added sodium tablets tidwm (4) Bilirubinemia: Status: Acute Problem details: Indirect hyperbilirubinemia. Cause uncertain. Chronic problem. 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 -immunotherapy on hold until he has appropriate follow-up in the outpatient setting and it is determined that is safe for him to resume (7) Chronic anticoagulation: Status: Acute Problem details: xarelto for AFib (8) CLL (chronic lymphocytic leukemia): Status: Acute Problem details: TP53 (17p-~53%) and trisomy 12 (~52%), on acalabrutinib reduced dose 200 mg daily -immunotherapy on hold until such time it is determined in the outpatient setting that is safe for him to resume (9) Atrial fibrillation with rapid ventricular response: Status: Acute Problem details: -continue amiodarone, metoprolol - blood pressure/HR appropriate currently -chronic anticoagulation on rivaroxaban Follows with Cardiology [facility] cardiology can follow while hospitalized (10) Hypothyroid: Status: Acute Problem details: -continue levothyroxine (11) Immunocompromised: Status: Acute Problem details: Due to CLL an immune therapy (12) Pneumonitis: Status: Acute Problem details: -suspected pneumonitis due to immune therapy/checkpoint inhibitors -started prednisone 1 mg/kg, 70 mg, once daily with additional dosing per heme/onc (13) Human metapneumovirus (hMPV) pneumonia: Status: Acute Problem details: -diagnosed 13 June 2024 -continue prednisone therapy for possible drug-induced pneumonitis -continue with supportive efforts (14) Anemia: Status: Acute Problem details: -anemia of chronic disease, chronic meds, chemotherapy -hemoglobin 8.3 06/12/24 and 8.6 06/18/24 -during course of hospitalization the patient had 2 attempted transfusions. Both of these were not fully administered. Developed fever with 1st 1 with a temperature rise of about 2? F. During the 2nd 1 patient developed wheezing. All post transfusion testing was negative. 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 DS: Summary Hospital Course Hospital Course: Chad Jensen is a 78 year old male presents the emergency department with daughter, 2nd time this week, was evaluated in the wee hours yesterday just over 24 hours ago. Diagnosed with pneumonia, given a dose of IV Rocephin and azithromycin. Did picking belt operator his Ceftin and azithromycin that he was to continue taking and was scheduled to start it in a few hours. He was given a single dose of steroids and neb treatment and felt much better. He had no hypoxia upon presentation yesterday and his labs were overall stable. Chest x-ray it confirmed the right-sided pneumonia. Patient is very anxious regarding this pneumonia as his just 6 days ago of pneumonia as well. She declined very rapidly. It sounds as though she had some comorbid health issues. Patient himself is immunocompromised as well. Patient says that he had been doing well yesterday until he woke up at 5:00 a.m. feeling very short of breath. No chest pain, still has cough. Had been eating and drinking fairly well. No other interval changes from yesterday. Unfortunately, he was unable to picking belt operator the inhaler as they were out of stock and he has plan to pick it up today. Past medical history notable for both squamous cell carcinoma and CLL, hyperlipidemia and hypertension as well as AFib, anticoagulated on Eliquis. Medications unchanged from yesterday. Nonsmoker with no prior history of COPD. ROS is notable for the respiratory symptoms as above only, otherwise denies times 12 systems. 06/13/2024: Additional history: Patient reports that he has just gradually gotten worse over the last day with increasing dyspnea. Not eating well. Profoundly weak. In the emergency department he reports that he did respond to the inhalers though he has no history of asthma or COPD. 06/14/2024: Patient is feeling worse this morning. He is having fevers, more short of breath worsening fatigue and malaise. We started on a blood transfusion is day and after 45 minutes his fever went up about 3? F. blood transfusion was stopped and transfusion reaction protocol initiated. This afternoon he was feeling better. Discussed with patient and family his healthcare status, tentative diagnoses and ongoing plan of care I reviewed plan of care with his oncologist, Dr. Birdie Hurtado. [phone]. We discussed the possibility that his immune therapy is causing pneumonitis and did start prednisone for that. She would like an update tomorrow on his clinical condition. We discussed possible transfer to grant for more specialty care. Currently no beds available. Also no beds available in the [facility]. I reviewed his plan of care with infectious disease consult Dr. Yudith Youssef. She recommends ongoing broad-spectrum antibiotics pending results of cultures and testing. Stop vancomycin if MRSA swab is negative. Deescalate care as he clinically improves. Obtain broader respiratory viral panel Hospital day 3, 06/15/2024. Started his prednisone yesterday for possible drug-induced pneumonitis. Notes that he feels improved. Not as weak. No longer hypoxic. Appetite is improving. Tolerating increased activities. Hospital day 4, 06/16/2024. Generally feels well. No worse than yesterday. Discusses his concern about clearing sputum from his oropharynx. Would like to restart the iron that he normally takes, ferrous sulfate 325 mg 3 times daily. Tolerating increased activities. Hospital day 5, 06/17/2024. About 1 and half to 2 hours in the course of receiving his packed red blood cell transfusion yesterday he developed wheezing. The transfusion was stopped. Wheezing resolved. Had no hypoxia or tachypnea. Acknowledges anxiety before and during packed red blood cell transfusion, which resolved with discontinuation of the packed red blood cell transfusion. I reviewed laboratory studies obtained from the time of yesterday's episode including the blood in urine. No acute findings. Does have proteinuria which he had before any of these episodes. Cultures of the blood demonstrate no growth at this time. Patient condition normalized in the discharge. I read discussed his case with our infectious disease specialist who concurs that given his progress we may discontinue all antibiotics. He is ready for discharge. Review plan with him. He is agreeable. Status at Discharge Functional status at discharge: independent ambulation Overall status at discharge: patient is progressing back to baseline Time Spent with Patient Time attestation: Total time spent providing and/or coordinating discharge services: Time spent: Greater than 30 minutes Exam Narrative: Exam Narrative: I examined patient in his hospital room. Appears comfortable no acute distress. Longstanding neck mass unchanged. Bibasilar rales, only minimal, with no wheezing or rhonchi. Heart tones with regular rhythm. Abdomen benign. No focal motor neurologic deficits. Independent in transfer, station, gait. No icterus or jaundice. No obvious skin rashes, including conjunctiva and buccal mucosa. DS: Data Data Completed and Pending Completed studies during hospitalization: Procedures Introduction of Other Gas into Respiratory Tract, Via Natural or Artificial Opening (06/13/24) Transfusion of Nonautologous Red Blood Cells into Peripheral Vein, Percutaneous Approach (06/13/24) Imaging Chest x-ray: Attestation: I have reviewed the pertinent imaging results. Radiologist's impression: 06/12/2024: Right lung patchy opacities, suspicious for pneumonia. 06/13/2024: Redemonstration of airspace opacities in the right middle lobe and anterior segment of the right upper lobe without significant interval change compared to 06/12/2024 at 0338 hours consistent with pneumonia. 06/14/2024: Extensive increasing interstitial and airspace opacities seen throughout the bilateral hemithoraces. CT scan - chest: Radiologist's impression: 06/14/2024: FINDINGS: Airway: Circumferential smooth bronchial wall thickening. Lungs: Multifocal tree-in-bud nodules. Multifocal hazy ground-glass opacities. Multifocal small nodular opacities. Small area of consolidation in the posteromedial right lower lobe. No emphysema. No pulmonary edema. Pleura: Trace bilateral pleural effusions are larger than the comparison exam. No pneumothorax. Lymph nodes: Lower cervical adenopathy not fully included within the field of view but appears about the same as the prior chest CT. Multi station mediastinal adenopathy. Right pretracheal lymph node measures 3.7 cm, previously 3.6 cm. Subcarinal lymph node measures 3.2 cm, previously 3.4 cm. Left greater than right axillary and subpectoral adenopathy. No new adenopathy. No substantially worsened adenopathy.. Mediastinum: No pneumomediastinum. Heart and great vessels: Trace pericardial effusion is similar to prior. Normal cardiac chamber size. Heavy calcified coronary and a few scattered other atherosclerotic plaques. No aortic aneurysm. Normal caliber main pulmonary artery. No central pulmonary embolism. Chest wall: Mild left axillary and lateral chest wall edema. Subcutaneous cyst in the posterior lower neck. Similar to the prior PET-CT with no PET avidity, presumably a benign subdermal cyst. Upper abdomen: Confluent retroperitoneal and periportal adenopathy is about the same. Spleen size is within normal limits. Bones: No fractures. Thoracic DISH. No focal bone lesions. IMPRESSION: 1. Pattern of lung opacities is most consistent with diffuse infectious distal airways disease and multifocal bronchopneumonia. Overall the appearance is different but slightly worse than 11/10/2023. Recommend attention on follow-up to exclude malignancy. 2. Small bilateral pleural effusions are slightly larger. 3. Multi station lower cervical, thoracic, and upper abdominal adenopathy is about the same. 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 General precautions for protecting herself, including hand washing, social distancing, and use of facial mask 2. Follow up with your oncologist, Dr. Hurtado, this as planned 3. Return to clinic or hospital sooner if needed 4. Hold immune modulating medications until follow-up with Dr. Hurtado 5. Follow-up with your primary career technical counselor regarding your hypertension Activity Level: Activity as Tolerated Discharge Diet: Regular Prescriptions: No Action Slow-Mag 71.5 mg tablet,delayed release (DR/EC) 71.5 mg PO QDAY tamsulosin [Flomax] 0.4 mg capsule 0.4 mg PO DAILY amiodarone 100 mg tablet 100 mg PO DAILY metoprolol tartrate 25 mg tablet 25 mg PO BID calcium carbonate [Tums] 300 mg (750 mg) tablet,chewable 300 mg PO BID PRN ferrous sulfate 324 mg (65 mg iron) tablet,delayed release (DR/EC) 324 mg PO DAILY alprazolam 0.25 mg tablet 0.25 mg PO BID PRN famotidine [Pepcid] 20 mg tablet 20 mg PO DAILY Xarelto 20 mg tablet 20 mg PO Q24H lisinopril 10 mg tablet 15 mg PO BID atorvastatin 20 mg tablet 20 mg PO DAILY furosemide 20 mg tablet 20 mg PO DAILY PRN Rx Instructions: as directed by PA in supervisor coal handling (Benigno) prednisone 20 mg Tablet 70 mg PO DAILYWM 7 Days Qty: 50 1RF Rx Instructions: Dose to be decreased by your pie crimping machine operator/oncologist over time amlodipine 5 mg Tablet 5 mg PO DAILY 30 Days Qty: 30 0RF Calquence (acalabrutinib mal) 100 mg tablet 100 mg PO BID levothyroxine [Synthroid] 112 mcg tablet 112 mcg PO DAILY Rx Instructions: Take once daily in the morning at least an hour before food or other medications. nystatin 100,000 unit/mL suspension 5 ml PO Q6H Rx Instructions: x 14 days total Follow Up/Referrals: GLENNA THOMAS DO [Primary Care Provider] - Stand Alone Forms: MyHealth Info Instructions
== END 2024-06-12 06:10 | disposition home or self-care (01) ==
PROVIDERS: Emergency Provider Family Medicine; PCP Student in an Organized Health Care Education/Training Program
DX: J18.9 Pneumonia, unspecified organism (principal); J96.91 Respiratory failure, unspecified with hypoxia; R50.9 Fever, unspecified; C91.10 Chronic lymphocytic leukemia of B-cell type not having achieved remission; D84.9 Immunodeficiency, unspecified
CPT/HCPCS: 36415; 71046; 80053; 81001; 81003; 83605; 83880; 85025; 86140; 87040; 87086; 87637; 96365; 96366; 96375; 99284; J0456; J0696; J2919; J7050

== ENCOUNTER 2024-06-13 05:44 | Inpatient (IN) | payer MEDICARE, BC, SELFPAY ==
[2024-06-13] VITALS (12 sets, daily range): BP systolic 108–186; BP diastolic 57–91; PULSE 75–111; RESP 18–30; TEMP 36.3–39.4; O2SAT 92–833; BMI 22.9; BMI 23.6
--- OUTSIDE RECORDS SUMMARY | 2024-06-13 05:46 | XMS_ITS | Clinical Summary ---
Author Organization [facility] Address [place], [place] [address] Care Team Providers Care Rack Carrier Name Role Phone Nikki Reilly DO Primary Care Provider [phone] Allergies Active Allergy Reactions Criticality Noted Date [...] Encounters Date Type Department Care Team Description 06/12/2024 Orders Only [facility] Scanner 1 scan: (1-Ord) [facility], XR CHEST 2V, 06/12/2024 06/12/2024 Telephone [facility] [address] [place] [address] Nikki Reilly, Questions (Pneumonia) 05/18/2024 Telephone [facility] [address] [place] [address] Nikki Reilly, Concerns (Blood Pressure) 05/17/2024 2:05 PM ROLL HANDLER Office Visit [facility] [address] [place], [place] [phone] Nikki Reilly DO Medicare ANNUAL (subsequent) Visit (78 year old ) 05/17/2024 Travel 05/01/2024 Telephone [facility] [address] [place] [address] Chris Thomas MD Results 04/30/2024 2:15 PM ROLL HANDLER Office Visit [facility] [address] [place] [place] [address] Chris Thomas MD ER Follow up (Cardioversion, hyponatremia - needs repeat sodium) 04/30/2024 Travel 04/27/2024 Telephone [facility] [address] [place] [address] Nikki Reilly DO Lab from Last 3 Months Immunizations Name [...] on file Legal Sex Male 7:17 AM ROLL HANDLER Gender Identity Not on file Sexual Orientation Not on file Obstetrics History Last Filed Vital Signs Vital Sign Reading Time Taken Comments Blood Pressure 160/82 05/17/2024 2:08 PM ROLL HANDLER rec heck Pulse 62 05/17/2024 2:05 PM ROLL HANDLER Temperature 36.9 C (98.4 F) 04/23/2020 11:09 AM ROLL HANDLER Respiratory Rate 16 03/20/2020 2:20 PM CDT Oxygen Saturation 100% 05/17/2024 2:05 PM ROLL HANDLER Inhaled Oxygen Concentration - - Weight 76.5 kg (168 lb 9.6 oz) 05/17/2024 2:05 P M ROLL HANDLER Height 175.2 cm (5' 8.98) 05/17/2024 2:05 PM CS T Body Mass Index 24.91 05/17/2024 2:05 PM ROLL HANDLER Plan of Treatment Health Maintenance Due Date [...] Priority Date/Time Associated Diagnosis Comments SCAN-RADIOLOGY REPORT 06/12/2024 12:00 AM ROLL HANDLER BASIC METABOLIC PANEL Routine 04/30/2024 2:55 PM ROLL HANDLER Hyponatremia TSH Routine 04/30/2024 2:55 PM ROLL HANDLER Hypothyroidism (acquired) ANTI HCV Routine 03/09/2018 10:39 AM CDT Need for hepatitis C screening test from Last 3 Months or Most Recently Relevant to Health Maintenance Results * SCAN-RADIOLOGY REPORT (06/12/2024 12:00 AM ROLL HANDLER) Anatomical Region Laterality Modality Other us Scanner OTHER Final Result * (ABNORMAL) TSH (04/30/2024 2:55 PM ROLL HANDLER) TSH 8.39(H) 0.40 - 4.50 mIU/L [facility] Blood BLOOD SPECIMEN / Unknown 04/30/2024 2:55 PM ROLL HANDLER 04/30/2024 2:56 PM ROLL HANDLER Chris Thomas MD CHEMISTRY Final Result [facility] [address] [place] [address], [facility] [address] [place] [address] * (ABNORMAL) BASIC METABOLIC PANEL (04/30/2024 2:55 PM ROLL HANDLER) GLUCOSE 76 65 - 99 mg/dL [facility] [...] BLOOD SPECIMEN / Unknown 04/30/2024 2:55 PM ROLL HANDLER 04/30/2024 2:56 PM ROLL HANDLER Chris Thomas MD CHEMISTRY Final Result [facility] [address] [place] [address], [facility] [address] [place] [address] * ANTI HCV [[id number]] (03/09/2018 10:39 AM CDT) Pathologist [facility] HEPATITIS C ANTIBODY Non-React irlanda Non-React irlanda 03/09/2018 5:05 PM CDT [facility] Comment:Antibodies to HCV no t detected; does not exclude the possibility of exposure to HCV. Blood BLOOD SPECIMEN / Unknown Venipuncture / Unknown 03/09/2018 10:39 AM CDT 03/09/2018 10:39 AM CDT Ron Garcia MD SEND OUTS Final Resu lt [facility] [address] [place] [address], [place] from Last 3 Months or Most Recently Relevant to Health Maintenance Insurance MEDICARE PART A HB ONLY MEDICARE PART B HB ONLY BLUE CROSS ELEM BLUE HB ONLY BLUE CROSS ELEM BLUE MR PB ONLY Advance Directives * Full Code (Latest Code Status on File) Date Activated Date Inactivated Comments 11/22/2011 11:07 AM 11/22/2011 3:00 PM * Full Code Date Activated Date Inactivated Comments 11/22/2011 9:03 AM 11/22/2011 11:07 AM Care Teams Rack Carrier Relationship Specialty Start Date End Date Nikki Reilly DO [facility] [address] PCP - General Family Practice 12/15/22
--- OUTSIDE RECORDS SUMMARY | 2024-06-13 05:47 | XMS_ITS ---
Author Organization [facility] Address [address] [place] [address] Care Team Providers Care Manager Research Name Role Phone Unavailable Unavailable Unavailable Surgery Details Not on file Complications Check Surgery Details section. Procedure Estimated Blood Loss Check Surgery Details section. Procedure Findings Check Surgery Details section. Procedure Specimens Taken Check Surgery Details section.
--- OUTSIDE RECORDS SUMMARY | 2024-06-13 05:47 | XMS_ITS | Continuity of Care Document ---
Author Name NwHIN User [email or web address] Address Unknown Organization Unknown Address Unknown Procedures FILTER APPLIED:Only known Procedures with Onset Date within the last 5 years Procedure Date Procedure Provider Additiona l Information Status ASSAY THYROID STIM HORMONE (99942) Completed CHEMO IV INFUSION 1 HR (25959) Completed BILIRUBIN DIRECT (40416) Completed ROUTINE VENIPUNCTURE (83736) Completed COMPLETE CBC W/AUTO DIFF WBC (65799) Completed COMPREHEN METABOLIC PANEL (32714) Completed OFFICE O/P EST SF 10 MIN (80619) Completed CT SOFT TISSUE NECK W/DYE (84584) Completed CT THORAX DX C+ (44918) Completed CT ABD PELV W/CONTRAST (11083) Completed HEPATIC FUNCTION PANEL (01293) Completed EXTREMITY STUDY (10321) Completed OFFICE O/P EST LOW 20 MIN (03163) Completed EXTREMITY STUDY (34957) Completed ASSAY THYROID STIM HORMONE (45146) Completed TOTAL CORTISOL (31659) C ompleted CT THORAX DX C- (86280) Completed NEEDLE BIOPSY LYMPH NODES (53530) Completed ECHO GUIDE FOR BIOPSY (43340) Completed PET IMAGE W/CT SKULL-THIGH (82721) Completed BILIRUBIN TOTAL (33534) Completed ASSAY OF HAPTOGLOBIN QUANT (16700) Completed FLOWCYTOMETRY/ TC 1 MARKER (01182) Completed FLOWCYTOMETRY/TC ADD-ON (39037) Completed BILIRUBIN DIRECT (92050) Completed OFFICE O/P EST MOD 30 MIN (88032) Completed METABOLIC PANEL TOTAL CA (40074) Completed ASSAY OF BLOOD/URIC ACID (57935) Completed ASSAY OF PHOSPHORUS (86874) Completed LACTATE (LD) (LDH) ENZYME (49282) Completed TX/PRO/DX INJ SAME DRUG PIPE TURNER (26871) Completed CHEMO IV INFUSION 1 HR (25540) Completed CHEMO IV INFUSION ADDL HR (39652) Completed OFFICE O/P EST SF 10 MIN (48632) Completed OFFICE O/P EST HI 40 MIN (21010) Completed ROUTINE VENIPUNCTURE (35927) Completed COMPLETE CBC W/AUTO DIFF WBC (92787) Completed COMPREHEN METABOLIC PANEL (02357) Completed OFF/OP EST MAY X REQ PHY/QHP (99531) Completed ROUTINE VENIPUNCTURE (46689) Completed EXTREMITY STUDY (94572) Completed COMPLETE CBC W/AUTO DIFF WBC (65571) Completed ASSAY OF PHOSPHORUS (84144) Completed HEPATITIS C AB TEST (87564) Completed HEPATITIS B SURFACE AG IA (85509) Completed ASSAY OF BLOOD/URIC ACID (30835) Completed ASSAY THYROID STIM HORMONE (07613) Completed COMPATIBILITY TEST ANTIGLOB (28388) Completed BLOOD TYPING SEROLOGIC RH(D) (12119) Completed TRANSFUSION BLD/BLD COMPNT (13054) Completed RBC ANTIBODY SCREEN (28431) Completed BLOOD TYPING SEROLOGIC ABO (21070) Completed IRON BINDING TEST (26895) Completed ASSAY OF IRON (07898) Co mpleted ASSAY OF FERRITIN (24611) Completed VITAMIN B-12 (64289) Com pleted CT ABD PELV W/CONTRAST (69915) Completed CT THORAX DX C+ (97447) Completed CT SOFT TISSUE NECK W/DYE (02332) Completed ASSAY OF FOLIC ACID SERUM (91043) Completed BILIRUBIN DIRECT (31658) Completed ASSAY OF HAPTOGLOBIN QUANT (51789) Completed ESCOBAR TEST DIRECT (07567) Completed FLOWCYTOMETRY/ TC 1 MARKER (69270) Completed FLOWCYTOMETRY/TC ADD-ON (47252) Completed BILIRUBIN TOTAL (78106) Completed OFFICE O/P EST HI 40 MIN (43129) Completed ROUTINE VENIPUNCTURE (13650) Completed COMPREHEN METABOLIC PANEL (69214) Completed LACTATE (LD) (LDH) ENZYME (83623) Completed COMPLETE CBC W/AUTO DIFF WBC (62452) Completed OFFICE O/P EST SF 10 MIN (38624) Completed OFFICE O/P EST MOD 30 MIN (14456) Completed Encounters FILTER APPLIED:Only known Encounters with Admission Date within the last 5 years Encounter Location Admission Discharge Billing Code Supervisor Assembly A ttender Outpatient Birdie Hurtado Outpatient Birdie Hurtado Outpatient Birdie Hurtado Outpatient Birdie Hurtado Outpatient Birdie Hurtado Outpatient Victo cheryl Boss Outpatient Victo cheryl Boss Outpatient Birdie Hurtado Outpatient Birdie watts
--- OUTSIDE RECORDS SUMMARY | 2024-06-13 05:47 | XMS_ITS ---
Author Organization [facility] Address [address] [place] [address] Care Team Providers Care Communications Tower Climber Name Role Phone Elsewhere, Pcp Primary Care [...] treatments are documented for this patient in [facility]. Treatments may have been administered in another system.
--- OUTSIDE RECORDS SUMMARY | 2024-06-13 05:47 | XMS_ITS | Clinical Summary ---
Author Organization [facility] Address [address] [place] [address] Care Team Providers Care Cash Specialist Name Role Phone Elsewhere, Pcp Primary Care Provider Unavailabl e Source Comments Patient records contain information from all sites at [facility]. For routine questions regarding patient records, call [phone] during business hours, M-F 8:00 AM - 5:00 PM Central Time. Record requests for emergency care only can be directed to [phone] at any time.[facility] Allergies Active Allergy Reactions Criticality Noted [...] 04/09/2024 Refill Department of Cardiovascular Medicine in [place] [id number] [place] [phone] Ron Santana M.D., Ph.D. Med Refill 03/29/2024 Orders Only Department of Oncology in [address] [address] Birdie Hurtado M.D. 03/26/2024 10:56 AM CDT - 03/26/2024 11:59 PM CDT Hospital Encounter Department of Radiology, [facility] in [place], [place] [address] [place] [address] Birdie Hurtado M.D. 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 Atrial Fibrillation Unspecified (HCC); Regurgitation Mitral 03/13/2024 8:12 AM CDT - 03/13/2024 11:59 PM CDT Hospital Encounter Department of Laboratory Medicine and Pathology, [facility] in [place], [place] [address] [place] [phone] Loraine Thakkar M.D. Atrial Fibrillation Unspecified (HCC); Regurgitation Mitral; Repair Mitral Valve Status Post Discharge Disposition: Home or Self Care 03/13/2024 7:54 AM CDT - 03/13/2024 8:11 AM CDT Hospital Encounter Department of Radiology, [facility] in [place], [place] [address] [place] [phone] Marilu Castaneda P.A.-Nikki., M.S. Atrial Fibrillation Unspecified [...] drink = 0.6 oz pur e alcohol) [facility] Utilities Answer Date Recorded In the past 12 months has e [employer], gas, oil, or water [employer] threatened to shut off services in your [...] How often do you attend yazidism or uatsdin serv ices? Never 06/30/2021 Do you belong [...] and heating? Not hard at all 06/30/2021 [facility] - Occupational [...] Sex Assigned at Male 06/30/2021 12:19 PM PRIVATE WATCHMAN Legal Sex Male 7:31 AM CDT Gender Identity Male 06/30/2021 12:19 PM PRIVATE WATCHMAN Sexual Orientation Straight 06/30/2021 12 :19 PM PRIVATE WATCHMAN Last Filed Vital Signs Vital Sign Reading Time Taken Comments Blood Pressure 166/75 03/13/2024 9:49 AM CDT Avg of 3 Pulse 64 03/13/2024 9:49 AM CDT Temperature 36.6 C (97.9 F) 05/03/2023 3:58 PM PRIVATE WATCHMAN Respiratory Rate 16 01/13/2024 12:18 PM CDT [...] this topic Medical Devices Implanted Type Area Spray Unit Feeder Device Identifier Shelf Expiration Date Model / Serial / Lot Clp Tania Clip Del Sys Xtr - [id number] Implanted:Qty : 1 on 06/28/2019 by Hernandez Echevarria M.D. 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) SPSMA RESULT Routine 03/13/2024 8:22 AM CDT IN T4 FREE Routine 03/13/2024 8:22 AM CDT [...] LOS, PET ARZ LOS, [facility] N/A Positron Emission Tomography (PET), [...] RADIOPHARMACEUTICAL/MEDS: Route: intravenous fludeoxyglucose F 18 injection ASSISTED (FDG F-18),9.92 millicurie TECHNIQUE: F-18 FDG PET/CT [...] RADIOPHARMACEUTICAL/MEDS: Route: intravenous fludeoxyglucose F 18 injection ASSISTED (FDG F-18),9.92 millicurie TECHNIQUE: F-18 FDG PET/CT [...] Serum (03/13/2024 8:22 AM CDT) Pathologist [facility] T4 (Thyroxine), Free, S 1.7 0.9 - 1.7 ng/dL 03/13/2024 10:55 AM CDT DTL Blood 03/13/2024 8:22 AM CDT 03/13/2024 9:03 AM CDT Marilu Castaneda P.A.-C., M.S. LAB BLOOD ADD-ON Fi nal Result [address] [address], [facility] [address] [place] [address] * (ABNORMAL) Lipid Panel (03/13/2024 8:22 AM CDT) Pathologist [facility] Triglycerides 36 mg/dL 03/13/2024 10:34 AM CDT [...] M.D. LAB BLOOD ADD-ON Final Resul t [address] [address], [facility] [place] [address] [place] [address] * (ABNORMAL) Morphology Eval (special smear) (03/13/2024 [...] - 6.45 x10(9)/L 03/13/2024 11:06 AM CDT [facility] Comment: ----ADDITIONAL INFORMATION---- The manual absolute neutrophil count is derived from a manual differential count and therefore is not exactly comparable to the automated absolute neutrophil count. Interpretation See Comment 11:06 AM CDT [facility] Comment: The blood smear findings are consistent with the previous diagnosis of chronic lymphocytic leukemia. Reviewed by: Tech 03/13/2024 11:06 AM CDT [facility] Blood 03/13/2024 8:22 AM CDT 03/13/2024 8:47 AM CDT Loraine Thakkar M.D. LAB BLOOD ADD-ON Final Resul t Performing Organization Address [facility] [place] [address] * (ABNORMAL) Thyroid Function [facility] (03/13/2024 8:22 AM CDT) Pathologist [facility] TSH, Sensitive 10.0(H) 0.3 - 4.2 mIU/L 03/13/2024 10:34 AM CDT DT Blood (Blood, Venous) 03/13/2024 8:22 AM CDT 03/13/2024 9:03 AM CDT us Marilu Castaneda P.A.-C., M.S. LAB BLOOD ADD-ON Fi nal Result Performing Organization Address City/[facility]/ZIP [place] [address] * (ABNORMAL) NT-Pro B-Type Natriuretic Peptide (BNP) (03/13/2024 8:22 AM CDT) Pathologist [facility] NT-Pro BNP 974(H) <=540 pg/mL 03/13/2024 10:34 [...] ADD-ON Final Resul t Performing Organization Address [facility] Co de Phone Number [address] [place] [address] * Thyroperoxidase (TPO) Antibodies (03/13/2024 8:22 AM CDT) Thyroperoxidase Ab, S <15.0 <34.0 IU/mL 03/13/2024 10:55 AM CDT DTL Blood 03/13/2024 8:22 AM CDT 03/13/2024 9:03 AM CDT Marilu Castaneda P.A.-C., M.S. LAB BLOOD ADD-ON Fi nal Result Performing Organization Address City/[facility]/ZIP Co de Phone Number [facility] [address] [place] [address] * (ABNORMAL) Prothrombin Time (PT) (03/13/2024 8:22 [...] M.D. LAB BLOOD ADD-ON Final Resul t [facility] [address] [place] [address], [facility] [address] [place] [address] * (ABNORMAL) CBC with Differential, Blood (03/13/2024 [...] - 6.45 x10(9)/L 03/13/2024 11:05 AM CDT [facility] Comment:Auto-diff results no t valid. See manual differential. Blood (Blood, Venous) 03/13/2024 8:22 AM CDT 03/13/2024 8:47 AM CDT us Loraine Thakkar M.D. LAB BLOOD ADD-ON Final Resul t Performing Organization Address City/[facility]/ZIP Co de Phone Number [facility] [address] [place] [address], [facility] [address] [place], [place] [address] [place] [address] 200 [place] [address] * Glucose, Fasting (03/13/2024 8:22 AM CDT) Glucose, P 90 70 - 100 mg/dL 03/13/2024 9:17 AM CDT DTL Last Intake 11 hr 03/13/2024 8:59 AM CDT DTL Blood (Blood, Venous) 03/13/2024 8:22 AM CDT 03/13/2024 8:59 AM CDT us Loraine Thakkar M.D. LAB BLOOD NON ADD-ON Final R esult Performing Organization Address City/[facility]/ZIP Co de Phone Number [facility] [address] [place], [place] [address] [address] [place] [address] * (ABNORMAL) Comprehensive Metabolic Panel (03/13/2024 8:22 [...] M.S. LAB BLOOD ADD-ON Fi nal Result [facility] [address] [place] [address], [facility] DTL [facility] [address] [place] [address] * DX Chest AP or PA and [...] Indicated Protective Environment 09/20/2022 [address] [facility] Advance Directives For more information, please contact: [phone] * Full Code (Latest Code Status on File) Date Activated Date Inactivated Comments 01/06/2022 5:12 PM 01/09/2022 4:47 PM Question Answer Comments Full Code: Discussed * Full Code Date Activated Date Inactivated Comments 06/28/2019 12:14 PM 06/29/2019 2:37 PM Question Answer Comments Full Code: Discussed Care Teams Cash Specialist Relationship Specialty Start Date End Date Elsewhere, Pcp PCP - General Rn Progressive Care Unit 06/27/19
--- OUTSIDE RECORDS SUMMARY | 2024-06-13 05:47 | XMS_ITS | Referral Summary ---
Author Organization [facility] Address [address] [place] [address] Care Team Providers Care Precision Jig Grinder Name Role Phone Elsewhere, Pcp Primary Care Provider Unavailabl e Source Comments Patient records contain information from all sites at [facility]. For routine questions regarding patient records, call [phone] during business hours, M-F 8:00 AM - 5:00 PM Central Time. Record requests for emergency care only can be directed to [phone] at any time.[facility] Encounters Date Type Department Care Team Description 04/09/2024 Refill Department of Cardiovascular Medicine in [place], [place] [address] [place] [address] Ron Santana M.D., Ph.D. Med Refill 03/29/2024 Orders Only Department of Oncology in [address] [phone] Birdie Hurtado M.D. 03/26/2024 10:56 AM CDT - 03/26/2024 11:59 PM CDT Hospital Encounter Department of Radiology, [facility] in [place], [place] [address] [place] [address] Birdie Hurtado M.D. 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 Atrial Fibrillation Unspecified (HCC); Regurgitation Mitral Discharge Disposition: Home or Self Care 03/13/2024 8:12 AM CDT - 03/13/2024 11:59 PM CDT Hospital Encounter Department of Laboratory Medicine and Pathology, [facility], in [place], [place] [address] [place] [address] Loraine Thakkar M.D. Atrial Fibrillation Unspecified (HCC); Regurgitation Mitral; Repair Mitral Valve Status Post Discharge Disposition: Home or Self Care 03/13/2024 10:00 AM CDT Comprehensive Visit Department of Cardiovascular Medicine in [place], [place] [address] [place] [address] Loraine Thakkar M.D. Atrial Fibrillation Unspecified (HCC); [...] In the past 12 months has e [employer], [employer], oil, or water [employer] threatened to shut off services in your [...] How often do you attend hoahaoism or uatsdin serv ices? Never 06/30/2021 Do [...] hard at all 06/30/2021 [facility]ational Stress Questionnaire Answer [...] living situation today? [facility] 01/13/2024 Education Answer Date Recorded What is the highest level of school you have completed or the highest degree you have received? Professional school degree (e.g., MD, DDS, DVM, GRACIELA) 06/30/2021 Sex and Gender Information Value Date Recorded Sex Assigned at Male 06/30/2021 12:19 PM PATIENT REGISTRATION SUPERVISOR Legal Sex Male 7:31 AM CDT Gender Identity Male 06/30/2021 12:19 PM PATIENT REGISTRATION SUPERVISOR Sexual Orientation Straight 06/30/2021 12 :19 PM PATIENT REGISTRATION SUPERVISOR Last Filed Vital Signs Vital Sign Reading Time Taken Comments Blood Pressure 166/75 03/13/2024 9:49 AM CDT Avg of 3 Pulse 64 03/13/2024 9:49 AM CDT Temperature 36.6 C (97.9 F) 05/03/2023 3:58 PM PATIENT REGISTRATION SUPERVISOR Respiratory Rate 16 01/13/2024 12:18 PM CDT Oxygen Saturation 95% 01/13/2024 12:20 PM CDT Inhaled Oxygen Concentration - - Weight 76 kg (167 lb 8.8 oz) 03/13/2024 9:49 AM CDT Height 178.2 cm (5' 10.16) 03/13/2024 9:49 AM C DT Body Mass Index 23.93 03/13/2024 9:49 AM CDT Plan of Treatment Not on file Medical Devices Implanted Type Area Rn Occupational Device Identifier Shelf Expiration Date Model / Serial / Lot Clp Tania Clip Del Sys Xtr - [id number] Implanted:Qty : 1 on 06/28/2019 by Hernandez Echevarria M.D. 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 LAB BLOOD ADD-ON Fi nal Result [facility] [address] [place] [address], [facility] [address] [place] [address] * (ABNORMAL) Lipid Panel (03/13/2024 8:22 AM [...] BLOOD ADD-ON Final Resul t [facility] [address] [place] [address], [facility] [address] [place] [address] * (ABNORMAL) Morphology Eval (special smear) (03/13/2024 [...] M.D. LAB BLOOD ADD-[place] [address], [facility] [address] [place] [address] * (ABNORMAL) Thyroid Function [place] (03/13/2024 8:22 AM CDT) TSH, Sensitive 10.0(H) 0.3 - 4.2 mIU/L 03/13/2024 10:34 AM CDT DTL Blood (Blood, Venous) 03/13/2024 8:22 AM CDT 03/13/2024 9:03 AM CDT us Marilu Castaneda P.A.-C., M.S. LAB BLOOD ADD-ON Fi nal Result [facility] [address] [place] [address] * (ABNORMAL) NT-Pro B-Type Natriuretic Peptide (BNP) (03/13/2024 8:22 AM CDT) NT-Pro BNP 974(H) <=540 pg/mL 03/13/2024 10:34 AM CDT [facility] Comment: NT-proBNP values less than 300 pg/mL [...] M.D. LAB BLOOD ADD-ON Final Resul t [facility] [address] [place] [address] * Thyroperoxidase (TPO) Antibodies (03/13/2024 8:22 AM CDT) Thyroperoxidase Ab, S <15.0 <34.0 IU/mL 03/13/2024 10:55 AM CDT [facility] Blood 03/13/2024 8:22 AM CDT 03/13/2024 9:03 AM CDT Marilu Castaneda P.A.-C., M.S. LAB BLOOD ADD-ON Fi nal Result [facility] [address] [place] [address] * (ABNORMAL) Prothrombin Time (PT) (03/13/2024 8:22 AM CDT) Pathologist [facility] Prothrombin Time, P 27.6(H) 9.4 - 12.5 sec 03/13/2024 9:06 AM CDT DTL INR 2.5 0.9 - 1.1 03/13/2024 9:06 AM CDT DTL Comment: ----ADDITIONAL INFORMATION---- Standard intensity warfarin therapeutic range: 2.0 to 3.0 High intensity warfarin therapeutic range: 2.5 to 3.5 Blood (Blood, Venous) 03/13/2024 8:22 AM CDT 03/13/2024 8:47 AM CDT us Loraine Thakkar M.D. LAB BLOOD ADD-ON Final Resul t [facility] [address] [place] [address], [facility] [address] [place] [address] * (ABNORMAL) CBC with Differential, Blood (03/13/2024 8:22 AM CDT) [facility] Hemoglobin 9.4(L) 13.2 - 16.6 g/dL [...] - 9.6 x10(9)/L 03/13/2024 11:05 AM CDT [facility] Comment:Results confirmed by smear. Neutrophils See Comment 1.56 - 6.45 x10(9)/L 03/13/2024 11:05 AM CDT [facility] Comment:Auto-diff results no t valid. See manual differential. Blood (Blood, Venous) 03/13/2024 8:22 AM CDT 03/13/2024 8:47 AM CDT Loraine Thakkar M.D. LAB BLOOD ADD-ON Final Resul t Performing Organization Address City/[facility] Co de Phone Number [facility] [address] [place] [address], [facility] [address] [place], [place] [address] [place] [address] [address] [place] [address] * Glucose, Fasting (03/13/2024 8:22 AM CDT) Pathologist [facility] Glucose, P 90 70 - 100 mg/dL 03/13/2024 9:17 AM CDT DTL Last Intake 11 hr 03/13/2024 8:59 AM CDT DTL Blood (Blood, Venous) 03/13/2024 8:22 AM CDT 03/13/2024 8:59 AM CDT us Loraine Thakkar M.D. LAB BLOOD NON ADD-ON Final R esult Performing Organization Address City/[facility]/ZIP Co de Phone Number [facility] [address] [place] [address], [facility] [address] [place] [address] * (ABNORMAL) Comprehensive Metabolic Panel (03/13/2024 8:22 [...] M.S. LAB BLOOD ADD-ON Fi nal Result [facility] [address] [place] [address], [place] DTL [facility] [address] [place] [address] * DX Chest AP or PA and [...] Indicated Protective Environment 09/20/2022 3 Insurance MEDICARE [facility] Advance Directives For more information, please contact: [phone] * Full Code (Latest Code Status on File) Date Activated Date Inactivated Comments 01/06/2022 5:12 PM 01/09/2022 4:47 PM Question Answer Comments Full Code: Discussed * Full Code Date Activated Date Inactivated Comments 06/28/2019 12:14 PM 06/29/2019 2:37 PM Question Answer Comments Full Code: Discussed Care Teams Precision Jig Grinder Relationship Specialty Start Date End Date Elsewhere, Pcp PCP - General Line Repairer Tower 06/27/19
--- NOTE | 2024-06-13 05:55 | CRLHL7_ITS ---
For Patients: As a result of the Cures Act, medical imaging exams and procedure reports are released immediately into your electronic medical record. You may view this report before your referring provider. If you have questions, please contact your health care provider. INDICATION: worsening PNA. (Sic) COMPARISON: 06/12/2024 TECHNIQUE: 2 views. FINDINGS: Medical Devices: None. Lung Volumes: Adequate inspiration. No significant atelectasis. Lungs: Redemonstration of airspace opacities in the right middle lobe and anterior segment of the right upper lobe without significant interval change compared to 06/12/2024 at 0338 hours consistent with pneumonia. Pleura and Pleural spaces: No significant pleural effusion. No pneumothorax. Mediastinum: Stable cardiomediastinal silhouette. A radiopaque medical insurance claims processor consistent with a leadless cardiac pacemaker is again noted superimposed upon the cardiac silhouette to the left of midline. Tortuous descending thoracic aorta. Bony Thorax and Soft Tissues: No significant interval findings. Osteopenia of the thoracic spine is again noted incidentally. IMPRESSION: Redemonstration of airspace opacities in the right middle lobe and anterior segment of the right upper lobe without significant interval change compared to 06/12/2024 at 0338 hours consistent with pneumonia. Dictated by Deonte Palomino MD @ 06/13/2024 6:46:41 AM (Electronically Signed)
[2024-06-13] MEDS: IPRAT-ALBUT 0.5-2.5 MG/3 ML NEB 1 NEB IH ×3 (06:00→19:21)
--- NOTE | 2024-06-13 06:03 | ED.GENADULT ---
HPI - General Adult General Chief complaint: Shortness of Breath/Dyspnea Stated complaint: difficulty breathing/Pneumonia Time Seen by Provider: 06/13/24 05:50 Source: patient Mode of arrival: ambulatory Limitations: no limitations History of Present Illness HPI narrative: 70-year-old male presents the emergency department with daughter, 2nd time this week, was evaluated in the wee hours yesterday just over 24 hours ago. Diagnosed with pneumonia, given a dose of IV Rocephin and azithromycin. Did sampler pickup his Ceftin and azithromycin that he was to continue taking and was scheduled to start it in a few hours. He was given a single dose of steroids and neb treatment and felt much better. He had no hypoxia upon presentation yesterday and his labs were overall stable. Chest x-ray it confirmed the right-sided pneumonia. Patient is very anxious regarding this pneumonia as his just 6 days ago of pneumonia as well. She declined very rapidly. It sounds as though she had some comorbid health issues. Patient himself is immunocompromised as well. Patient says that he had been doing well yesterday until he woke up at 5:00 a.m. feeling very short of breath. No chest pain, still has cough. Had been eating and drinking fairly well. No other interval changes from yesterday. Unfortunately, he was unable to sampler pickup the inhaler as they were out of stock and he has plan to pick it up today. Past medical history notable for both squamous cell carcinoma and CLL, hyperlipidemia and hypertension as well as AFib, anticoagulated on Eliquis. Medications unchanged from yesterday. Nonsmoker with no prior history of COPD. ROS is notable for the respiratory symptoms as above only, otherwise denies times 12 systems. Related Data Home Medications ?Medication ?Instructions ?Recorded ?Confirmed rivaroxaban 20 mg tablet (Xarelto) 20 mg PO Q24H 12/07/21 05/10/24 alprazolam 0.25 mg tablet 0.25 mg PO DAILY PRN 12/16/21 05/10/24 famotidine 20 mg tablet (Pepcid) 20 mg PO DAILY 12/16/21 05/10/24 magnesium chloride 71.5 mg 71.5 mg PO QDAY 02/15/22 05/10/24 (magnesium chloride) tablet,delayed release (Slow-Mag) tamsulosin 0.4 mg capsule (Flomax) 0.4 mg PO QDAY 02/15/22 05/10/24 amiodarone 100 mg tablet 100 mg PO QDAY 11/11/22 05/10/24 metoprolol tartrate 25 mg tablet 25 mg PO BID 11/11/22 05/10/24 lisinopril 10 mg tablet 15 mg PO BID 03/03/23 05/10/24 calcium carbonate (Tums) 300 mg PO BID PRN 03/31/23 05/10/24 ferrous sulfate 324 mg (65 mg 972 mg PO QDAY 03/31/23 05/10/24 iron) tablet,delayed release atorvastatin 20 mg tablet 20 mg PO QDAY 11/17/23 05/10/24 furosemide 20 mg tablet 20 mg PO DAILY PRN 01/25/24 05/10/24 Previous Rx's ?Medication ?Instructions ?Recorded acalabrutinib maleate 100 mg 100 mg PO Q12H #60 tabs 10/27/23 tablet (Calquence (acalabrutinib maleate)) levothyroxine 112 mcg tablet 112 mcg PO QDAY #30 tabs 05/10/24 (Synthroid) azithromycin 250 mg tablet See Rx Instructions PO .COMPLEX #6 06/12/24 tabs cefuroxime axetil 500 mg tablet 500 mg PO BID 10 days #20 tabs 06/12/24 ipratropium 20 mcg-albuterol 100 1 puff inhalation Q6H #4 grams 06/12/24 mcg/actuation mist for inhalation (Combivent Respimat) Allergies Allergy/AdvReac Type Severity Reaction Status Date / Time ibrutinib (From Imbruvica) Allergy Intermediate Rash Verified 05/10/24 09:55 Penicillins Allergy Verified 05/10/24 09:55 [facility] Medical History Hypothyroid ?E03.9 - Hypothyroidism, unspecified (ICD-10) Right leg swelling ?M79.89 - Other specified soft tissue disorders (ICD-10) 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 - Malignant neoplasm of major salivary gland, unspecified (ICD-10) Anemia ?D64.9 - Anemia, unspecified (ICD-10) GERD (gastroesophageal reflux disease) ?K21.9 - Gastro-esophageal reflux disease without esophagitis (ICD-10) CAD (coronary artery disease) ?I25.10 - Atherosclerotic heart disease of [place] coronary artery without angina pectoris (ICD-10) Pulmonary nodules ?R91.8 - Other nonspecific abnormal finding of lung field (ICD-10) History of cardioversion ?Z98.890 - Other specified postprocedural states (ICD-10) CLL (chronic lymphocytic leukemia) (~08/2018) ?C91.10 - Chronic lymphocytic leukemia of B-cell type not having achieved remission (ICD-10) Malignant melanoma ?C43.9 - Malignant melanoma of skin, unspecified (ICD-10) Anxiety ?F41.9 - Anxiety disorder, unspecified (ICD-10) BPH with obstruction/lower urinary tract symptoms ?N40.1 - Benign prostatic hyperplasia with lower urinary tract symptoms (ICD-10) ?N13.8 - Other obstructive and reflux uropathy (ICD-10) Prostate cancer ?C61 - Malignant neoplasm of prostate (ICD-10) Hypertension ?I10 - Essential (primary) hypertension (ICD-10) Paroxysmal atrial fibrillation ?I48.0 - Paroxysmal atrial fibrillation (ICD-10) Surgical History S/P mitral valve clip implantation (~2019) ?Z98.890 - Other specified postprocedural states (ICD-10) ?Z95.818 - Presence of other cardiac implants and grafts (ICD-10) History of tonsillectomy ?Z90.89 - Acquired absence of other organs (ICD-10) History of melanoma excision ?Z98.890 - Other specified postprocedural states (ICD-10) ?Z85.820 - Personal history of malignant melanoma of skin (ICD-10) History of cataract surgery ?Z98.49 - Cataract extraction status, unspecified eye (ICD-10) Hx of mitral valve repair ?Z98.890 - Other specified postprocedural states (ICD-10) Family History Other CHF (congestive heart failure) Hodgkins disease Social History Narrative: he is and here with his . He gets oncology care through [facility]. He gets primary care through Dr. Brian Coronado. He does not smoke. He drinks 1 glass of red wine daily. Smoking Status: Never smoker Do you use any of these nicotine containing products: None Second hand tobacco smoke exposure: No How often do you have a drink containing alcohol: never How often do you have six or more drinks on one occasion: Never AUDIT-C Alcohol total score: 0 Non-prescribed substance use: denies use service: No Exam Const: Vital Signs, click to edit/add: Vital Signs - 24 hr 06/13/24 05:46 Temperature 97.3 F L Pulse Rate [Right Pulse Oximeter] 111 H Respiratory Rate 30 H Blood Pressure [Le ft Upper Arm] 186/91 H Pulse Oximetry 833 H Oxygen Delivery Me thod Room Air Documenting provider has reviewed patient's vital signs: yes Common normals: alert Other: Appearance stable from yesterday. No pallor. Able to speak in full sentences. Nursing reported that his sats were 83% when walking in triage but is 93% sitting in the bed prior to application of any oxygen. HENMT: Common normals: normocephalic and moist oral mucous membranes Head and scalp: normocephalic Mouth: oral and palatal mucosa normal Eye: Common normals: conjunctivae normal General eye: normal appearance of both eyes Conjunctiva: conjunctiva(e) normal Neck & C-Spine: General: normal visual inspection Chest: Other: Mild to moderate increased work of breathing. Lungs actually sound fair amount better than yesterday. Expiration is less prolonged, he has some mild expiratory wheeze but it is not as severe as yesterday he is moving air well and he still has those coarse crackles but they are not as loud as yesterday. Cardio: Common normals: regular rate and regular rhythm Rate: regular rate Rhythm: regular rhythm Other: Two out of 6 systolic murmur is heard better today than yesterday. GI: Common normals: Normal to inspection, nondistended, normoactive bowel sounds present, soft to palpation and no hepatosplenomegaly Palpation: soft and no hepatosplenomegaly Extremity: Other: Mild chronic venous stasis appearance changes to the legs with mild edema on the right compared to the left which he states is chronic. No tenderness or palpable cords in the calves. Neuro: Common normals: moves all extremities Sensorium/orientation: alert Psych: Attitude: engaged Other: A little anxious but situationally appropriate. Answers questions well, normal thought content. Skin: Common normals: no rashes or lesions noted General skin exam: no rashes or lesions noted Course Course ED Course: 78-year-old male with pneumonia. Unable to sampler pickup inhaler and now presenting with sudden onset bronchospasm symptoms. Cannot exclude that he has had a flare-up of CHF or worsening pneumonia or a blood clot or some other complication but honestly his lungs sound better. He did desat with ambulation which him terribly surprised by and we may not have known yesterday as we were extremely busy and it took longer to get him triage. His sats are similar at rest to where they were yesterday. I would like to a repeat chest x-ray, will plan to give his next dose of antibiotics IV here repeat his labs. Emergently, will administer 60 of IV Solu-Medrol and another DuoNeb which were really helpful for him yesterday and then reassess. Will reassess once we have more information. Reevaluation(s) Time of Reevaluation #1: 07:42 Reevaluation #1: Labs reviewed, patient white count did go up but he has a history of CLL and I gave him steroids. I am not sure the clinical significance but I do suspect that it may not to be accurate to interpret his clinical condition. The spent a little more time thinking it over also. He has been on amiodarone for quite a few years and we may have some underlying pulmonary toxicity that certainly could explain his COPD like response to this pneumonia as well. He is feeling quite a bit better after the DuoNeb and steroids but is fearful of another worsening episode, as am I. Sats are doing well on 2 L of nasal cannula. Will give another albuterol neb and I have discussed the case with Dr. Woodard, will admit for continued medical management. Vital Signs Vital signs: Initial Vital Signs Temperature 97.3 F L 06/13/24 05:46 Temperature Source Temporal Artery Scan 06/13/24 05:46 Pulse Rate 111 H 06/13/24 05:46 Respiratory Rate 30 H 06/13/24 05:46 Blood Pressure 186/91 H 06/13/24 05:46 Blood Pressure Mean 122 H 06/13/24 05:46 Blood Pressure Position High-Fowlers 06/13/24 05:46 Pulse Oximetry 833 H 06/13/24 05:46 Oxygen Delivery Method Room Air 06/13/24 05:46 Vital Signs Temperature 97.3 F L 06/13/24 05:46 Pulse Rate 111 H 06/13/24 05:46 Respiratory Rate 30 H 06/13/24 05:46 Blood Pressure 186/91 H 06/13/24 05:46 Pulse Oximetry 833 H 06/13/24 05:46 Oxygen Delivery Method Room Air 06/13/24 05:46 Temperature 97.3 F L 06/13/24 05:46 Pulse Rate 111 H 06/13/24 05:46 Respiratory Rate 30 H 06/13/24 05:46 Blood Pressure 186/91 H 06/13/24 05:46 Pulse Oximetry 833 H 06/13/24 05:46 Oxygen Delivery Method Room Air 06/13/24 05:46 Medications Administered Medications: Discontinued Medications Generic Name Dose Route Start Last Admin Trade Name Freq PRN Reason Stop Dose Admin Albuterol 2.5 mg 06/13/24 07:26 06/13/24 07:41 Albuterol Sulfate 2.5 Mg/3 Ml Vial.Neb [facility] 06/13/24 07:27 2.5 mg ONCE ONE Administration Albuterol/Ipratropium 1 neb 06/13/24 05:55 06/13/24 06:00 Iprat-Albut 0.5-2.5 Mg/3 Ml Neb 06/13/24 05:56 1 neb ONCE ONE Administration Ceftriaxone Sodium 1 gm/ 100 mls @ 200 mls/hr 06/13/24 05:55 06/13/24 07:26 Sodium Chloride IVPB 06/13/24 05:56 Infused ONCE ONE Infusion Azithromycin 500 mg/ Sodium 255 mls @ 255 mls/hr 06/13/24 05:55 06/13/24 07:35 Chloride IVPB 06/13/24 05:56 255 mls/hr ONCE ONE Administration Methylprednisolone Sodium Succinate 60 mg 06/13/24 05:55 06/13/24 06:45 Methylprednisolone Sod Succ 40 Mg/Ml IVP 06/13/24 05:56 60 mg ONCE ONE Administration Medical Decision Making Lab Data Lab results reviewed: Yes I reviewed the patient's lab results Lab results narrative: Leukocytosis could be multifactorial. Has CLL and was given steroids. Renal function is stable. Blood gases look okay. Lactate stable. Blood cultures were collected yesterday, reviewed not showing any signs of growth thus far. Labs: Lab Results 06/13/24 Range/Units 06:12 WBC 49.09 H* (4.50-11.00) K/uL RBC 2.71 L (4.30-5.90) m/uL Hgb 8.5 L (13.5-17.5) gm/dL Hct 27.5 L (37.0-53.0) % MCV 102 H (80-100) fL MCH 31 (26-34) pg MCHC 31 L (32-36) gm/dL RDW Coeff of Ekta 13.1 (11.5-15.5) % Plt Count 327 (140-440) K/uL Neut % (Auto) 24.4 L (42.0-72.0) % Lymph % (Auto) 69.1 H (20-44) % Morgan % (Auto) 5.8 (0.0-11.0) % Eos % (Auto) 0.0 (0.0-7.0) % Baso % (Auto) 0.3 (0.0-3.0) % Neut # (Auto) 12.00 H (1.7-7.0) K/uL Lymph # (Auto) 33.90 H (0.90-2.90) K/uL Morgan # (Auto) 2.80 H (0.00-0.90) K/UL Eos # (Auto) 0.00 (0.00-0.50) K/uL Baso # (Auto) 0.10 (0.00-0.30) K/uL Abs Immat Gran (auto) 0.20 (0.00-0.30) K/uL Imm/Tot Granulo (auto) 0.4 % Diff Slide Review Acceptable Review (Acceptable) VBG pH 7.341 (7.32-7.43) VBG pCO2 39 L (40-50) mmHG VBG pO2 53.9 H (25-47) mmHG VBG HCO3 21 (21-28) mmol/L Sodium 126 L (135-149) mmol/L Potassium 4.3 (3.6-5.1) mmol/L Chloride 96 (96-114) mmol/L Carbon Dioxide 20 (20-32) mmol/L Anion Gap 10 (7-15) mEq/L BUN 23 (7-30) mg/dL Creatinine 0.9 (0.5-1.5) mg/dL Estimated Creat Clear 62.86 Estimated GFR 87 ml/min Glucose 111 (60-115) mg/dL Lactate 1.9 (0.5-1.9) mmol/L Calcium 8.1 L (8.4-10.6) mg/dL Total Bilirubin 2.2 H (0.1-1.5) mg/dL AST 25 (12-35) U/L ALT 15 (4-50) U/L Alkaline Phosphatase 71 (40-150) U/L C-Reactive Protein 3.0 H (0.5-1.0) mg/dL Total Protein 5.7 L (6.0-8.3) g/dL Albumin 3.7 (3.3-5.0) g/dL Imaging Data Chest x-ray: Attestation: I have reviewed the pertinent imaging results. My impression: Stable chest x-ray, continues to demonstrate right-sided pneumonia Radiologist's impression: IMPRESSION: Redemonstration of airspace opacities in the right middle lobe and anterior segment of the right upper lobe without significant interval change compared to 06/12/2024 at 0338 hours consistent with pneumonia. Dictated by Deonte Palomino MD @ 06/13/2024 6:46:41 AM Discharge Plan Discharge Clinical Impression: Community acquired pneumonia, Acute hypoxemic respiratory failure Patient Disposition: Admitted As Inpatient
[2024-06-13 06:17] LABS: HCO3 VBG 21 mmol/L (21-28); Lactate* 1.9 mmol/L (0.5-1.9); PCO2 VBG 39 mmHG (40-50); PO2 VBG 53.9 mmHG (25-47); pH VBG 7.341 (7.32-7.43)
[2024-06-13 06:19] LABS: Basophils Percent Auto 0.3 % (0.0-3.0); Hematocrit 27.5 % (37.0-53.0); Hemoglobin* 8.5 gm/dL (13.5-17.5); Immature Granulocytes Pct Auto 0.4 %; Lymphocytes Percent Auto 69.1 % (20-44); Mean Corpuscular HGB Conc 31 gm/dL (32-36); Mean Corpuscular Hemoglobin 31 pg (26-34); Mean Corpuscular Volume 102 fL (80-100); Monocytes Percent Auto 5.8 % (0.0-11.0); Neutrophils Percent Auto 24.4 % (42.0-72.0); Platelet Count* 327 K/uL (140-440); RDW Coefficient of Variation % 13.1 % (11.5-15.5); Red Blood Count 2.71 m/uL (4.30-5.90)
[2024-06-13 06:35] LABS: Albumin* 3.7 g/dL (3.3-5.0); Chloride* 96 mmol/L (96-114); Potassium* 4.3 mmol/L (3.6-5.1); Sodium* 126 mmol/L (135-149)
[2024-06-13 06:37] LABS: Creatinine* 0.9 mg/dL (0.5-1.5); Est. Creatinine Clearance* 62.86; Estimated Glomerular Filt Rate 87 ml/min
[2024-06-13 06:38] LABS: Alanine Aminotransferase* 15 U/L (4-50); Alkaline Phosphatase* 71 U/L (40-150); Anion Gap 10 mEq/L (7-15); Aspartate Amino Transferase* 25 U/L (12-35); Bilirubin Total* 2.2 mg/dL (0.1-1.5); Blood Urea Nitrogen* 23 mg/dL (7-30); Carbon Dioxide* 20 mmol/L (20-32); Glucose* 111 mg/dL (60-115); Total Protein* 5.7 g/dL (6.0-8.3)
[2024-06-13 06:39] LABS: Calcium* 8.1 mg/dL (8.4-10.6)
[2024-06-13 06:41] LABS: Slide Review Reflex Yes; White Blood Count* 49.09 K/uL (4.50-11.00)
--- OUTSIDE RECORDS SUMMARY | 2024-06-13 06:42 | XMS_ITS | Continuity of Care Document ---
Author Name Nw[facility]IN User [id number] llowed Address Unknown Organization Unknown Address Unknown Procedures FILTER APPLIED:Only known Procedures with Onset Date within the last 5 years Procedure Date Procedure Provider Additiona l Information Status ASSAY THYROID STIM HORMONE (66743) Completed CHEMO IV INFUSION 1 HR (70118) Completed BILIRUBIN DIRECT (29657) Completed ROUTINE VENIPUNCTURE (63800) Completed COMPLETE CBC W/AUTO DIFF WBC (53438) Completed COMPREHEN METABOLIC PANEL (73519) Completed OFFICE O/P EST SF 10 MIN (29424) Completed CT SOFT TISSUE NECK W/DYE (72646) Completed CT THORAX DX C+ (26889) Completed CT ABD PELV W/CONTRAST (75940) Completed HEPATIC FUNCTION PANEL (48129) Completed EXTREMITY STUDY (47087) Completed OFFICE O/P EST LOW 20 MIN (94042) Completed EXTREMITY STUDY (28295) Completed ASSAY THYROID STIM HORMONE (25149) Completed TOTAL CORTISOL (69927) C ompleted CT THORAX DX C- (62557) Completed NEEDLE BIOPSY LYMPH NODES (62044) Completed ECHO GUIDE FOR BIOPSY (31954) Completed PET IMAGE W/CT SKULL-THIGH (39054) Completed BILIRUBIN TOTAL (65125) Completed ASSAY OF HAPTOGLOBIN QUANT (18420) Completed FLOWCYTOMETRY/ TC 1 MARKER (38419) Completed FLOWCYTOMETRY/TC ADD-ON (19490) Completed BILIRUBIN DIRECT (82341) Completed OFFICE O/P EST MOD 30 MIN (32387) Completed METABOLIC PANEL TOTAL CA (28825) Completed ASSAY OF BLOOD/URIC ACID (99012) Completed ASSAY OF PHOSPHORUS (91252) Completed LACTATE (LD) (LDH) ENZYME (18936) Completed TX/PRO/DX INJ SAME DRUG SENIOR OPERATOR (06997) Completed CHEMO IV INFUSION 1 HR (10008) Completed CHEMO IV INFUSION ADDL HR (17066) Completed OFFICE O/P EST SF 10 MIN (35119) Completed OFFICE O/P EST HI 40 MIN (42716) Completed ROUTINE VENIPUNCTURE (66916) Completed COMPLETE CBC W/AUTO DIFF WBC (04575) Completed COMPREHEN METABOLIC PANEL (11624) Completed OFF/OP EST MAY X REQ PHY/QHP (05496) Completed ROUTINE VENIPUNCTURE (58337) Completed EXTREMITY STUDY (56463) Completed COMPLETE CBC W/AUTO DIFF WBC (64666) Completed ASSAY OF PHOSPHORUS (80983) Completed HEPATITIS C AB TEST (34089) Completed HEPATITIS B SURFACE AG IA (23316) Completed ASSAY OF BLOOD/URIC ACID (90872) Completed ASSAY THYROID STIM HORMONE (34500) Completed COMPATIBILITY TEST ANTIGLOB (21316) Completed BLOOD TYPING SEROLOGIC RH(D) (36038) Completed TRANSFUSION BLD/BLD COMPNT (96645) Completed RBC ANTIBODY SCREEN (36979) Completed BLOOD TYPING SEROLOGIC ABO (96384) Completed IRON BINDING TEST (31537) Completed ASSAY OF IRON (26159) Co mpleted ASSAY OF FERRITIN (04895) Completed VITAMIN B-12 (77284) Com pleted CT ABD PELV W/CONTRAST (45867) Completed CT THORAX DX C+ (06044) Completed CT SOFT TISSUE NECK W/DYE (51881) Completed ASSAY OF FOLIC ACID SERUM (80392) Completed BILIRUBIN DIRECT (37061) Completed ASSAY OF HAPTOGLOBIN QUANT (14822) Completed ESCOBAR TEST DIRECT (18271) Completed FLOWCYTOMETRY/ TC 1 MARKER (05770) Completed FLOWCYTOMETRY/TC ADD-ON (08282) Completed BILIRUBIN TOTAL (14164) Completed OFFICE O/P EST HI 40 MIN (17629) Completed ROUTINE VENIPUNCTURE (34156) Completed COMPREHEN METABOLIC PANEL (17365) Completed LACTATE (LD) (LDH) ENZYME (57387) Completed COMPLETE CBC W/AUTO DIFF WBC (54660) Completed OFFICE O/P EST SF 10 MIN (78726) Completed OFFICE O/P EST MOD 30 MIN (81502) Completed Encounters FILTER APPLIED:Only known Encounters with Admission Date within the last 5 years Encounter Location Admission Discharge Billing Code Commodity Analyst A ttender Outpatient [facility] Out[facility] Out[facility] Outpatient [facility] Outpatient [facility] Outpatient Victo cheryl Boss Outpatient Victo cheryl Boss Outpatient [facility] H[facility] Outpatient Birdie awtts
--- OUTSIDE RECORDS SUMMARY | 2024-06-13 06:42 | XMS_ITS | Clinical Summary ---
Author Organization [facility] Address [address] [place] [address] Care Team Providers Care Blacksmith Hammer Operator Name Role Phone Elsewhere, Pcp Primary Care Provider Unavailabl e Source Comments Patient records contain information from all sites at [facility]. For routine questions regarding patient records, call [phone] during business hours, M-F 8:00 AM - 5:00 PM Central Time. Record requests for emergency care only can be directed to [phone] at any time.[facility] Allergies Active Allergy Reactions Criticality Noted [...] 04/09/2024 Refill Department of Cardiovascular Medicine in [place] [id number] [place] [phone] Ron Santana M.D., Ph.D. Med Refill 03/29/2024 Orders Only Department of Oncology in [address] [phone] Birdie Hurtado M.D. 03/26/2024 10:56 AM CDT - 03/26/2024 11:59 PM CDT Hospital Encounter Department of Radiology, [facility] in [place], [place] [address] [place] [address] Birdie Hurtado M.D. 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 Atrial Fibrillation Unspecified (HCC); Regurgitation Mitral 03/13/2024 8:12 AM CDT - 03/13/2024 11:59 PM CDT Hospital Encounter Department of Laboratory Medicine and Pathology, [facility] in [place], [place] [address] [place] [phone] Loraine Thakkar M.D. Atrial Fibrillation Unspecified (HCC); Regurgitation Mitral; Repair Mitral Valve Status Post Discharge Disposition: Home or Self Care 03/13/2024 7:54 AM CDT - 03/13/2024 8:11 AM CDT Hospital Encounter Department of Radiology, [facility] in [place], [place] [address] [place] [phone] Marilu Castaneda P.A.-Nikki., M.S. Atrial Fibrillation Unspecified [...] In the past 12 months has e [employer], gas, oil, or water [employer] threatened to shut off services in your [...] How often do you attend pentecostal or episcopalian serv ices? Never 06/30/2021 Do you belong [...] and heating? Not hard at all 06/30/2021 [facility] [...] Assigned at Male 06/30/2021 12:19 PM ENGRAVER PANTOGRAPH Legal Sex Male 7:31 AM CDT Gender Identity Male 06/30/2021 12:19 PM ENGRAVER PANTOGRAPH Sexual Orientation Straight 06/30/2021 12 :19 PM ENGRAVER PANTOGRAPH Last Filed Vital Signs Vital Sign Reading Time Taken Comments Blood Pressure 166/75 03/13/2024 9:49 AM CDT Avg of 3 Pulse 64 03/13/2024 9:49 AM CDT Temperature 36.6 C (97.9 F) 05/03/2023 3:58 PM ENGRAVER PANTOGRAPH Respiratory Rate 16 01/13/2024 12:18 PM CDT [...] this topic Medical Devices Implanted Type Area Member Of The [employer] Device Identifier Shelf Expiration Date Model / Serial / Lot Clp Tania Clip Del Sys Xtr - [id number] Implanted:Qty : 1 on 06/28/2019 by Hernandez Echevarria M.D. 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 iBrdie Hurtado M.D. IMG NM PROCEDURES Final Result * T4 (Thyroxine), Free, Serum (03/13/2024 8:22 AM CDT) Pathologist [facility] T4 (Thyroxine), Free, S 1.7 0.9 - 1.7 ng/dL 03/13/2024 10:55 AM CDT DTL Blood 03/13/2024 8:22 AM CDT 03/13/2024 9:03 AM CDT Marilu Castaneda P.A.-C., M.S. LAB BLOOD ADD-ON Fi nal Result [address] [address], [facility] [address] [place] [address] * (ABNORMAL) Lipid Panel (03/13/2024 8:22 AM CDT) Pathologist [facility] Triglycerides 36 mg/dL 03/13/2024 10:34 [...] M.D. LAB BLOOD ADD-ON Final Resul t [address] [address], [facility] [place] [address] [place] [address] * (ABNORMAL) Morphology Eval (special smear) (03/13/2024 [...] - 6.45 x10(9)/L 03/13/2024 11:06 AM CDT [facility] Comment: ----ADDITIONAL INFORMATION---- The manual absolute neutrophil count is derived from a manual differential count and therefore is not exactly comparable to the automated absolute neutrophil count. Interpretation See Comment 11:06 AM CDT [facility] Comment: The blood smear findings are consistent with the previous diagnosis of chronic lymphocytic leukemia. Reviewed by: Tech 03/13/2024 11:06 AM CDT [facility] Blood 03/13/2024 8:22 AM CDT 03/13/2024 8:47 AM CDT Loraine Thakkar M.D. LAB BLOOD ADD-ON Final Resul t Performing Organization Address [facility] [place] [address] * (ABNORMAL) Thyroid Function [place] (03/13/2024 8:22 AM CDT) Pathologist [facility] TSH, Sensitive 10.0(H) 0.3 - 4.2 mIU/L 03/13/2024 10:34 AM CDT DT Blood (Blood, Venous) 03/13/2024 8:22 AM CDT 03/13/2024 9:03 AM CDT us Marilu Castaneda P.A.-C., M.S. LAB BLOOD ADD-ON Fi nal Result Performing Organization Address City/[facility]/[place] [address] * (ABNORMAL) NT-Pro B-Type Natriuretic Peptide (BNP) (03/13/2024 8:22 AM CDT) Pathologist [facility] NT-Pro BNP 974(H) <=540 pg/mL 03/13/2024 10:34 [...] ADD-ON Final Resul t Performing Organization Address [facility] Co de Phone Number [address] [place] [address] * Thyroperoxidase (TPO) Antibodies (03/13/2024 8:22 AM CDT) Thyroperoxidase Ab, S <15.0 <34.0 IU/mL 03/13/2024 10:55 AM CDT DTL Blood 03/13/2024 8:22 AM CDT 03/13/2024 9:03 AM CDT Marilu Castaneda P.A.-C., M.S. LAB BLOOD ADD-ON Fi nal Result Performing Organization Address City/[facility]/ZIP Co de Phone Number [facility] [address] [place] [address] * (ABNORMAL) Prothrombin Time (PT) (03/13/2024 8:22 [...] M.D. LAB BLOOD ADD-ON Final Resul t [facility] [address] [place] [address], [facility] [address] [place] [address] * (ABNORMAL) CBC with Differential, Blood (03/13/2024 [...] - 6.45 x10(9)/L 03/13/2024 11:05 AM CDT [facility] Comment:Auto-diff results no t valid. See manual differential. Blood (Blood, Venous) 03/13/2024 8:22 AM CDT 03/13/2024 8:47 AM CDT us Loraine Thakkar M.D. LAB BLOOD ADD-ON Final Resul t Performing Organization Address City/[facility]/ZIP Co de Phone Number [facility] 200 [place] [address], [facility] [address] [place], [place] [address] [place] [address] 200 [place] [address] * Glucose, Fasting (03/13/2024 8:22 AM CDT) Glucose, P 90 70 - 100 mg/dL 03/13/2024 9:17 AM CDT DTL Last Intake 11 hr 03/13/2024 8:59 AM CDT DTL Blood (Blood, Venous) 03/13/2024 8:22 AM CDT 03/13/2024 8:59 AM CDT us Loraine Thakkar M.D. LAB BLOOD NON ADD-ON Final R esult Performing Organization Address City/[facility]/ZIP Co de Phone Number [facility] [address] [place], [place] [address] 200 [place] [address] * (ABNORMAL) Comprehensive Metabolic Panel (03/13/2024 8:22 [...] M.S. LAB BLOOD ADD-ON Fi nal Result [facility] [address] [place] [address], [facility] DTL [facility] [address] [place] [address] * DX Chest AP or PA and [...] Indicated Protective Environment 09/20/2022 3 Insurance MEDICARE [facility] Advance Directives For more information, please contact: [phone] * Full Code (Latest Code Status on File) Date Activated Date Inactivated Comments 01/06/2022 5:12 PM 01/09/2022 4:47 PM Question Answer Comments Full Code: Discussed * Full Code Date Activated Date Inactivated Comments 06/28/2019 12:14 PM 06/29/2019 2:37 PM Question Answer Comments Full Code: Discussed Care Teams Blacksmith Hammer Operator Relationship Specialty Start Date End Date Elsewhere, Pcp PCP - General Paediatrician 06/27/19
--- OUTSIDE RECORDS SUMMARY | 2024-06-13 06:42 | XMS_ITS | Clinical Summary ---
Author Organization [facility] Address [place], [place] [address] Care Team Providers Care Printing Shop Supervisor Name Role Phone Nikki Reilly DO Primary Care Provider [phone] Allergies Active Allergy Reactions Criticality Noted Date [...] Department Care Team Description 06/12/2024 Orders Only [facility] SERVICES Scanner 1 scan: (1-Ord) [facility], XR CHEST 2V, 06/12/2024 06/12/2024 Telephone [facility] [address] [place] [address] Nikki Reilly, Questions (Pneumonia) 05/18/2024 Telephone [facility] [address] [place] [address] Nikki Reilly, Concerns (Blood Pressure) 05/17/2024 2:05 PM THIRD SHIFT LIEUTENANT Office Visit [facility] [address] [place], [place] [phone] Nikki Reilly DO Medicare ANNUAL (subsequent) Visit (78 year old ) 05/17/2024 Travel 05/01/2024 Telephone [facility] [address] [place] [address] Chris Thomas MD Results 04/30/2024 2:15 PM THIRD SHIFT LIEUTENANT Office Visit [facility] [address] [place] [address] Chris Thomas MD ER Follow up (Cardioversion, hyponatremia - needs repeat sodium) 04/30/2024 Travel 04/27/2024 Telephone [facility] [address] [place] [address] Nikki Reilly DO Lab from Last 3 [...] on file Legal Sex Male 7:17 AM THIRD SHIFT LIEUTENANT Gender Identity Not on file Sexual Orientation Not on file Obstetrics History Last Filed Vital Signs Vital Sign Reading Time Taken Comments Blood Pressure 160/82 05/17/2024 2:08 PM THIRD SHIFT LIEUTENANT rec heck Pulse 62 05/17/2024 2:05 PM THIRD SHIFT LIEUTENANT Temperature 36.9 C (98.4 F) 04/23/2020 11:09 AM THIRD SHIFT LIEUTENANT Respiratory Rate 16 03/20/2020 2:20 PM CDT Oxygen Saturation 100% 05/17/2024 2:05 PM THIRD SHIFT LIEUTENANT Inhaled Oxygen Concentration - - Weight 76.5 kg (168 lb 9.6 oz) 05/17/2024 2:05 P M THIRD SHIFT LIEUTENANT Height 175.2 cm (5' 8.98) 05/17/2024 2:05 PM CS T Body Mass Index 24.91 05/17/2024 2:05 PM THIRD SHIFT LIEUTENANT Plan of Treatment Health Maintenance Due Date [...] Diagnosis Comments SCAN-RADIOLOGY REPORT 06/12/2024 12:00 AM THIRD SHIFT LIEUTENANT BASIC METABOLIC PANEL Routine 04/30/2024 2:55 PM THIRD SHIFT LIEUTENANT Hyponatremia TSH Routine 04/30/2024 2:55 PM THIRD SHIFT LIEUTENANT Hypothyroidism (acquired) ANTI HCV Routine 03/09/2018 10:39 AM CDT Need for hepatitis C screening test from Last 3 Months or Most Recently Relevant to Health Maintenance Results * SCAN-RADIOLOGY REPORT (06/12/2024 12:00 AM THIRD SHIFT LIEUTENANT) Anatomical Region Laterality Modality Other us Scanner OTHER Final Result * (ABNORMAL) TSH (04/30/2024 2:55 PM THIRD SHIFT LIEUTENANT) TSH 8.39(H) 0.40 - 4.50 mIU/L [facility] Blood BLOOD SPECIMEN / Unknown 04/30/2024 2:55 PM THIRD SHIFT LIEUTENANT 04/30/2024 2:56 PM THIRD SHIFT LIEUTENANT Chris Thomas MD CHEMISTRY Final Result [facility] [address] [place] [address], [facility] [address] [place] [address] * (ABNORMAL) BASIC METABOLIC PANEL (04/30/2024 2:55 PM THIRD SHIFT LIEUTENANT) GLUCOSE 76 65 - 99 mg/dL [facility] [...] BLOOD SPECIMEN / Unknown 04/30/2024 2:55 PM THIRD SHIFT LIEUTENANT 04/30/2024 2:56 PM THIRD SHIFT LIEUTENANT Chris Thomas MD CHEMISTRY Final Result [facility] [address] [place] [address], [facility] [address] [place] [address] * ANTI HCV [[id number]] (03/09/2018 10:39 AM CDT) Pathologist [facility] HEPATITIS C ANTIBODY Non-React irland[place] Non-React irland[place] 03/09/2018 5:05 PM CDT [facility] Comment:Antibodies to HCV no t detected; does not exclude the possibility of exposure to HCV. Blood BLOOD SPECIMEN / Unknown Venipuncture / Unknown 03/09/2018 10:39 AM CDT 03/09/2018 10:39 AM CDT Ron Garcia MD SEND OUTS Final Resu lt [facility] [address] [place] [address], [place] from Last 3 Months or Most Recently Relevant to Health Maintenance Insurance MEDICARE PART A HB ONLY MEDICARE PART B HB ONLY [place] BLUE HB ONLY [place] BLUE MR PB ONLY Advance Directives * Full Code (Latest Code Status on File) Date Activated Date Inactivated Comments 11/22/2011 11:07 AM 11/22/2011 3:00 PM * Full Code Date Activated Date Inactivated Comments 11/22/2011 9:03 AM 11/22/2011 11:07 AM Care Teams Printing Shop Supervisor Relationship Specialty Start Date End Date Nikki Reilly DO [place] [facility] [address] PCP - General Family Practice 12/15/22
--- OUTSIDE RECORDS SUMMARY | 2024-06-13 06:42 | XMS_ITS ---
Author Organization [facility] Address [address] [place] [address] Care Team Providers Care Consumer Attorney Name Role Phone Elsewhere, Pcp Primary [...] treatments are documented for this patient in [facility]. Treatments may have been administered in another system.
--- OUTSIDE RECORDS SUMMARY | 2024-06-13 06:42 | XMS_ITS | Referral Summary ---
Author Organization [facility] Address [address] [place] [address] Care Team Providers Care Diaper Machine Tender Name Role Phone Elsewhere, Pcp Primary Care Provider Unavailabl e Source Comments Patient records contain information from all sites at [facility]. For routine questions regarding patient records, call [phone] during business hours, M-F 8:00 AM - 5:00 PM Central Time. Record requests for emergency care only can be directed to [phone] at any time.[facility] Encounters Date Type Department Care Team Description 04/09/2024 Refill Department of Cardiovascular Medicine in [place], [place] [address] [place] [address] oRn Santana M.D., Ph.D. Med Refill 03/29/2024 Orders Only Department of Oncology in [address] [phone] Birdie Hurtado M.D. 03/26/2024 10:56 AM CDT - 03/26/2024 11:59 PM CDT Hospital Encounter Department of Radiology, [facility] in [place], [place] [address] [place] [address] Birdie Hurtado M.D. Malignant Neoplasm Of Lung Squamous Cell Right (HCC) Discharge Disposition: Home or Self Care 03/21/2024 9:30 AM CDT Immunization Section of Infectious Diseases in [place], [place] [address] [place] [address] 03/13/2024 7:54 AM CDT - 03/13/2024 8:11 AM CDT Hospital Encounter Department of Radiology, [facility] in [place], [place] [address] [place] [address] Marilu Castaneda P.A.-C., M.S. Atrial Fibrillation Unspecified (HCC); Regurgitation Mitral Discharge Disposition: Home or Self Care 03/13/2024 8:12 AM CDT - 03/13/2024 11:59 PM CDT Hospital Encounter Department of Laboratory Medicine and Pathology, [facility], in [place], [place] [address] [place] [address] Loraine Thakkar M.D. Atrial Fibrillation Unspecified (HCC); Regurgitation Mitral; Repair Mitral Valve Status Post Discharge Disposition: Home or Self Care 03/13/2024 10:00 AM CDT Comprehensive Visit Department of Cardiovascular Medicine in [place], [place] [address] [place] [address] Loraine Thakkar M.D. Atrial Fibrillation Unspecified (HCC); [...] drink = 0.6 oz pur e alcohol) [facility] Utilities Answer Date Recorded In the past 12 months has e [employer], [employer], oil, or water [employer] threatened to shut off services in your [...] week 06/30/2021 How often do you attend oriental orthodox or orthodoxy serv ices? Never 06/30/2021 Do you belong to any clubs o r organizations such as oriental orthodox groups, unions, fraternal or athletic groups, or [...] and heating? Not hard at all 06/30/2021 [facility] Stress Questionnaire Answer Date [...] your living situation today? [facility] 01/13/2024 Education Answer Date Recorded What is the highest level of school you have completed or the highest degree you have received? Professional school degree (e.g., MD, DDS, DVM, GRACIELA) 06/30/2021 Sex and Gender Information Value Date Recorded Sex Assigned at Male 06/30/2021 12:19 PM AIR BRUSH DECORATOR Legal Sex Male 7:31 AM CDT Gender Identity Male 06/30/2021 12:19 PM AIR BRUSH DECORATOR Sexual Orientation Straight 06/30/2021 12 :19 PM AIR BRUSH DECORATOR Last Filed Vital Signs Vital Sign Reading Time Taken Comments Blood Pressure 166/75 03/13/2024 9:49 AM CDT Avg of 3 Pulse 64 03/13/2024 9:49 AM CDT Temperature 36.6 C (97.9 F) 05/03/2023 3:58 PM AIR BRUSH DECORATOR Respiratory Rate 16 01/13/2024 12:18 PM CDT Oxygen Saturation 95% 01/13/2024 12:20 PM CDT Inhaled Oxygen Concentration - - Weight 76 kg (167 lb 8.8 oz) 03/13/2024 9:49 AM CDT Height 178.2 cm (5' 10.16) 03/13/2024 9:49 AM C DT Body Mass Index 23.93 03/13/2024 9:49 AM CDT Plan of Treatment Not on file Medical Devices Implanted Type Area Carroting Machine Operator Device Identifier Shelf Expiration Date Model / Serial / Lot Clp Tania Clip Del Sys Xtr - [id number] Implanted:Qty : 1 on 06/28/2019 by Hernandez Echevarria M.D. at [facility] Mitralclip N/A: Heart Reese 03/21/2020 [id number] / / [id number] Description:Mitral Valve Ocular Lens Ocular Lens Eye [...] RADIOPHARMACEUTICAL/MEDS: Route: intravenous fludeoxyglucose F 18 injection [facility] (FDG F-18),9.92 millicurie TECHNIQUE: F-18 FDG PET/CT [...] RADIOPHARMACEUTICAL/MEDS: Route: intravenous fludeoxyglucose F 18 injection [facility] (FDG F-18),9.92 millicurie TECHNIQUE: F-18 FDG PET/CT [...] LAB BLOOD ADD-ON Fi nal Result [facility] [address] [place] [address], [facility] [place]note 2] [address] [place] [address] * (ABNORMAL) Lipid Panel (03/13/2024 8:22 AM [...] LAB BLOOD ADD-ON Final Resul t [facility] [address] [place] [address], [facility] [place]note 2] [address] [place] [address] * (ABNORMAL) Morphology Eval (special smear) (03/13/2024 [...] M.D. LAB BLOOD ADD-[place] [address], [facility] [address] [place] [address] * (ABNORMAL) Thyroid Function [place] (03/13/2024 8:22 AM CDT) TSH, Sensitive 10.0(H) 0.3 - 4.2 mIU/L 03/13/2024 10:34 AM CDT DTL Blood (Blood, Venous) 03/13/2024 8:22 AM CDT 03/13/2024 9:03 AM CDT us Marilu Castaneda P.A.-C., M.S. LAB BLOOD ADD-ON Fi nal Result [facility] [address] [place] [address] * (ABNORMAL) NT-Pro B-Type Natriuretic Peptide (BNP) (03/13/2024 8:22 AM CDT) NT-Pro BNP 974(H) <=540 pg/mL 03/13/2024 10:34 AM CDT [facility] Comment: NT-proBNP values less than 300 pg/mL [...] M.D. LAB BLOOD ADD-ON Final Resul t [facility] [address] [place] [address] * Thyroperoxidase (TPO) Antibodies (03/13/2024 8:22 AM CDT) Thyroperoxidase Ab, S <15.0 <34.0 IU/mL 03/13/2024 10:55 AM CDT [facility] Blood 03/13/2024 8:22 AM CDT 03/13/2024 9:03 AM CDT Marilu Castaneda P.A.-C., M.S. LAB BLOOD ADD-ON Fi nal Result [facility] [address] [place] [address] * (ABNORMAL) Prothrombin Time (PT) (03/13/2024 8:22 [...] M.D. LAB BLOOD ADD-ON Final Resul t [facility] [address] [place] [address], [facility] [place]note 2] [address] [place] [address] * (ABNORMAL) CBC with Differential, Blood (03/13/2024 8:22 AM CDT) [facility] Hemoglobin 9.4(L) 13.2 - 16.6 g/dL [...] - 9.6 x10(9)/L 03/13/2024 11:05 AM CDT [facility] Comment:Results confirmed by smear. Neutrophils See Comment 1.56 - 6.45 x10(9)/L 03/13/2024 11:05 AM CDT [facility] Comment:Auto-diff results no t valid. See manual differential. Blood (Blood, Venous) 03/13/2024 8:22 AM CDT 03/13/2024 8:47 AM CDT Loraine Thakkar M.D. LAB BLOOD ADD-ON Final Resul t Performing Organization Address City/[facility] Co de Phone Number [facility] [address] [place] [address], [facility] [address] [place], [place] [address] [place] [address] 200 [place] [address] * Glucose, Fasting (03/13/2024 8:22 AM CDT) Pathologist [facility] Glucose, P 90 70 - 100 mg/dL 03/13/2024 9:17 AM CDT DTL Last Intake 11 hr 03/13/2024 8:59 AM CDT DTL Blood (Blood, Venous) 03/13/2024 8:22 AM CDT 03/13/2024 8:59 AM CDT us Loraine Thakkar M.D. LAB BLOOD NON ADD-ON Final R esult Performing Organization Address City/[facility]/ZIP Co de Phone Number [facility] [address] [place] [address], [facility] [address] [place] [address] * (ABNORMAL) Comprehensive Metabolic Panel (03/13/2024 8:22 [...] BLOOD ADD-ON Fi nal Result [facility] [address] [place] [address], [place] DTL [facility] [address] [place] [address] * DX Chest AP or PA and [...] Indicated Protective Environment 09/20/2022 3 Insurance MEDICARE [facility] Advance Directives For more information, please contact: [phone] * Full Code (Latest Code Status on File) Date Activated Date Inactivated Comments 01/06/2022 5:12 PM 01/09/2022 4:47 PM Question Answer Comments Full Code: Discussed * Full Code Date Activated Date Inactivated Comments 06/28/2019 12:14 PM 06/29/2019 2:37 PM Question Answer Comments Full Code: Discussed Care Teams Diaper Machine Tender Relationship Specialty Start Date End Date Elsewhere, Pcp PCP - General Pool Finisher 06/27/19
--- OUTSIDE RECORDS SUMMARY | 2024-06-13 06:42 | XMS_ITS ---
Author Organization [facility] Address [address] [place] [address] Care Team Providers Care Programs Assistant Name Role Phone Unavailable Unavailable Unavailable Surgery Details Not on file Complications Check Surgery Details section. Procedure Estimated Blood Loss Check Surgery Details section. Procedure Findings Check Surgery Details section. Procedure Specimens Taken Check Surgery Details section.
[2024-06-13 06:45] LABS: Slide Review Acceptable Review (Acceptable)
[2024-06-13] MEDS: METHYLPREDNISOLONE SOD SUCC 40 MG/ML 60 MG IVP (06:45)
[2024-06-13] MEDS: cefTRIAXone 1 GM in 0.9 % SODIUM CHLORIDE Mini-bag 100 ML IVPB ×2 (06:46→09:59)
[2024-06-13] MEDS: AZITHROMYCIN 500 MG in 0.9 % SODIUM CHLORIDE 250 ml 250 ML 255 MG IVPB (07:35)
[2024-06-13] MEDS: ALBUTEROL SULFATE 2.5 MG/3 ML VIAL.NEB NEB (07:41)
[2024-06-13 08:09] LABS: Magnesium* 2.1 mg/dL (1.5-2.6)
[2024-06-13 08:15] LABS: Lactate Dehydrogenase* 308 U/L (120-246)
[2024-06-13 08:22] LABS: Troponin I* < 0.01 ng/mL (0.01-0.04)
[2024-06-13] MEDS: ATORVASTATIN 10 MG TABLET 20 MG PO (10:03)
[2024-06-13] MEDS: lisinopriL 10 MG TABLET 15 MG PO ×2 (10:04→20:32)
[2024-06-13] MEDS: FAMOTIDINE 20 MG TABLET PO (10:04)
[2024-06-13] MEDS: SODIUM CHLORIDE 0.9 % (FLUSH) 10 ML SYRINGE 5 ML IVF ×2 (10:04→20:34)
[2024-06-13] MEDS: TAMSULOSIN HCL 0.4 MG CAPSULE PO (10:04)
[2024-06-13] MEDS: METOPROLOL TARTRATE 25 MG TABLET PO ×2 (10:04→20:31)
[2024-06-13] MEDS: ACETAMINOPHEN 325 MG TABLET 650 MG PO ×2 (14:26→23:29)
--- NOTE | 2024-06-13 15:36 | PC.NURSE ---
End of shift summary: Pt admitted to the floor from the ER around 0830. He is SBA, A&O and VSS with exception to elevated temps. Upon arrival temp was 103 and then 100.3. PRN Tylenol given @1425. IV Rocephin scheduled q24H. Pt has no c/o pain, nausea or SOB on arrival to the floor. He was originally on 2L NC but was weaned down to RA with O2 sats still maintaining > 90%. EKG done reading NSR with 1st degree block. TELE placed. PIV in left FA is C/D/I and patent. Pt's LS have bilateral anterior crackles, C&DB encouraged. Productive cough noted with thick yellow/brownish phlegm, sputum sample collected this morning in ER. Pt denies any nausea; tolerating regular diet with a fair appetite. Purchasing Contracting Clerk met with pt & scheduling daily nutritional supplements in the evening per patient's home routine.
--- NOTE | 2024-06-13 16:19 | PM.IMHP1 ---
Hospitalist- H&P: HPI History of Present Illness Date Seen: 06/13/24 Chief complaint: difficulty breathing/Pneumonia Narrative: Chad Jensen is a 78 year old male presents the emergency department with daughter, 2nd time this week, was evaluated in the wee hours yesterday just over 24 hours ago. Diagnosed with pneumonia, given a dose of IV Rocephin and azithromycin. 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 He was given a single dose of steroids and neb treatment and felt much better. He had no hypoxia upon presentation yesterday and his labs were overall stable. Chest x-ray it confirmed the right-sided pneumonia. Patient is very anxious regarding this pneumonia as his just 6 days ago of pneumonia as well. She declined very rapidly. It sounds as though she had some comorbid health issues. Patient himself is immunocompromised as well. Patient says that he had been doing well yesterday until he woke up at 5:00 a.m. feeling very short of breath. No chest pain, still has cough. Had been eating and drinking fairly well. No other interval changes from yesterday. 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 Past medical history notable for both squamous cell carcinoma and CLL, hyperlipidemia and hypertension as well as AFib, anticoagulated on Eliquis. Medications unchanged from yesterday. Nonsmoker with no prior history of COPD. ROS is notable for the respiratory symptoms as above only, otherwise denies times 12 systems. 06/13/2024: Additional history: Patient reports that he has just gradually gotten worse over the last day with increasing dyspnea. Not eating well. Profoundly weak. In the emergency department he reports that he did respond to the inhalers though he has no history of asthma or COPD. Review of Systems Narrative: Other than his symptoms respiratory illness and is grieving his he reports generally doing well. 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 - Malignant neoplasm of major salivary gland, unspecified (ICD-10) Anemia ?D64.9 - Anemia, unspecified (ICD-10) GERD (gastroesophageal reflux disease) ?K21.9 - Gastro-esophageal reflux disease without esophagitis (ICD-10) CAD (coronary artery disease) ?I25.10 - Atherosclerotic heart disease of [place] coronary artery without angina pectoris (ICD-10) Pulmonary nodules ?R91.8 - Other nonspecific abnormal finding of lung field (ICD-10) History of cardioversion ?Z98.890 - Other specified postprocedural states (ICD-10) CLL (chronic lymphocytic leukemia) (~08/2018) ?C91.10 - Chronic lymphocytic leukemia of B-cell type not having achieved remission (ICD-10) Malignant melanoma ?C43.9 - Malignant melanoma of skin, unspecified (ICD-10) Anxiety ?F41.9 - Anxiety disorder, unspecified (ICD-10) BPH with obstruction/lower urinary tract symptoms ?N40.1 - Benign prostatic hyperplasia with lower urinary tract symptoms (ICD-10) ?N13.8 - Other obstructive and reflux uropathy (ICD-10) Prostate cancer ?C61 - Malignant neoplasm of prostate (ICD-10) Hypertension ?I10 - Essential (primary) hypertension (ICD-10) Paroxysmal atrial fibrillation ?I48.0 - Paroxysmal atrial fibrillation (ICD-10) Surgical History S/P mitral valve clip implantation (~2019) ?Z98.890 - Other specified postprocedural states (ICD-10) ?Z95.818 - Presence of other cardiac implants and grafts (ICD-10) History of tonsillectomy ?Z90.89 - Acquired absence of other organs (ICD-10) History of melanoma excision ?Z98.890 - Other specified postprocedural states (ICD-10) ?Z85.820 - Personal history of malignant melanoma of skin (ICD-10) History of cataract surgery ?Z98.49 - Cataract extraction status, unspecified eye (ICD-10) Hx of mitral valve repair ?Z98.890 - Other specified postprocedural states (ICD-10) Family History Other CHF (congestive heart failure) Hodgkins disease Social History (Updated 06/13/24 @ 16:24 by Benjie Woodard MD) Narrative: he is and here with his . He gets oncology care through [facility]. He gets primary care through [facility], Dr. Nikki Reilly. He does not smoke. He drinks 1 glass of red wine daily. Full code. Daughters are designated healthcare power of cash register balancer What is your current living situation?: I presently have a place to live Problems where you live: no known problems Problems where you live details: recently , they were each other's caregivers & now daughters have been staying with him periodically In the past 12 months, utilities in danger of being shut off: no In past 12 months, lack of transportation kept you from medical appts, meetings, work, or getting things needed for daily living: no In the past 12 mos, have been you worried that your food would run out before you had money to buy more?: never true In the past 12 mos, the food you bought just didn't last and you didn't have money to buy more?: never true Smoking Status: Never smoker Do you use any of these nicotine containing products: None Second hand tobacco smoke exposure: No How often do you have a drink containing alcohol: never How often do you have six or more drinks on one occasion: Never AUDIT-C Alcohol total score: 0 Non-prescribed substance use: denies use How often does anyone, including family, friends and others, physically hurt you: never How often does anyone, including family, friends and others, insult or talk down to you: never How often does anyone, including family, friends and others, threaten you with harm: never How often does anyone, including family, friends and others, scream or curse at you: never service: No Meds Home Medications and Allergies Home Medications ?Medication ?Instructions ?Recorded ?Confirmed ?Type rivaroxaban 20 mg tablet (Xarelto) 20 mg PO Q24H 12/07/21 06/13/24 History alprazolam 0.25 mg tablet 0.25 mg PO BID PRN 12/16/21 06/13/24 History famotidine 20 mg tablet (Pepcid) 20 mg PO DAILY 12/16/21 06/13/24 History magnesium chloride 71.5 mg 71.5 mg PO QDAY 02/15/22 06/13/24 History (magnesium chloride) tablet,delayed release (Slow-Mag) tamsulosin 0.4 mg capsule (Flomax) 0.4 mg PO DAILY 02/15/22 06/13/24 History amiodarone 100 mg tablet 100 mg PO DAILY 11/11/22 06/13/24 History metoprolol tartrate 25 mg tablet 25 mg PO BID 11/11/22 06/13/24 History lisinopril 10 mg tablet 15 mg PO BID 03/03/23 06/13/24 History calcium carbonate (Tums) 300 mg PO BID PRN 03/31/23 06/13/24 History ferrous sulfate 324 mg (65 mg 324 mg PO DAILY 03/31/23 06/13/24 History iron) tablet,delayed release atorvastatin 20 mg tablet 20 mg PO DAILY 11/17/23 06/13/24 History furosemide 20 mg tablet 20 mg PO DAILY PRN 01/25/24 06/13/24 History Allergies Allergy/AdvReac Type Severity Reaction Status Date / Time ibrutinib (From [employer]) Allergy Intermediate Rash Verified 06/13/24 12:32 Penicillins Allergy Verified 06/13/24 12:32 Exam Narrative: Exam Narrative: He is alert and appears mildly anxious with mildly increased work and rate of breathing. On oxygen per nasal cannula. He gives his own history with good detail. Eyes normal. Oropharynx normal with dry mucous membranes. Neck is supple without mass or adenopathy. No jugular venous distension. Respirations are clear to auscultation without wheezing. A rare crackle is noted at the right lateral base. Cardiovascular: S1, S2, regular rate and rhythm. Abdomen is soft without tenderness or mass. Extremities with 1+ edema in the right lower extremity and none in the left. He tells me this is a chronic finding. He also has some chronic per per a over the right leg and left upper extremity, intact pulses. Const: Vital Signs, click to edit/add: Vital Signs - 24 hr 06/13/24 05:46 06/13/24 07:48 06/13/24 08:30 Temperature 97.3 F L 102.4 F H 103 F H Pulse Rate Pulse Rate [Pulse Oximeter] 93 Pulse Rate [Right Pulse Oximeter] 111 H 99 Respiratory Rate 30 H 20 18 Blood Pressure [Le ft Arm] 144/67 H Blood Pressure [Le ft Upper Arm] 186/91 H 163/74 H Pulse Oximetry 833 H 95 95 Oxygen Delivery Me thod Room Air Room Air Nasal Cannula Oxygen Flow Rate 2 06/13/24 08:30 06/13/24 08:30 06/13/24 14:20 Temperature 103 F H 100.3 F H Pulse Rate Pulse Rate [Pulse Oximeter] 93 83 Pulse Rate [Right Pulse Oximeter] Respiratory Rate 18 18 18 Blood Pressure [Le ft Arm] 144/67 H 147/68 H Blood Pressure [Le ft Upper Arm] Pulse Oximetry 95 95 95 Oxygen Delivery Me thod Nasal Cannula Nasal Cannula Oxygen Flow Rate 2 2 1.5 06/13/24 14:25 06/13/24 14:26 06/13/24 15:00 Temperature 100.3 F H Pulse Rate Pulse Rate [Pulse Oximeter] 85 Pulse Rate [Right Pulse Oximeter] Respiratory Rate 18 Blood Pressure [Le ft Arm] Blood Pressure [Le ft Upper Arm] Pulse Oximetry 92 Oxygen Delivery Me thod Room Air Oxygen Flow Rate 06/13/24 15:00 06/13/24 15:28 06/13/24 15:30 Temperature 98.3 F 98.3 F Pulse Rate 82 Pulse Rate [Pulse Oximeter] 85 Pulse Rate [Right Pulse Oximeter] Respiratory Rate 18 Blood Pressure [Le ft Arm] 118/61 Blood Pressure [Le ft Upper Arm] Pulse Oximetry 93 Oxygen Delivery Me thod Room Air Oxygen Flow Rate Documenting provider has reviewed patient's vital signs: yes Hospitalist - H&P: Result Labs Labs: Short CBC 06/13/24 Range/Units 06:12 WBC 49.09 H* (4.50-11.00) K/uL Hgb 8.5 L (13.5-17.5) gm/dL Hct 27.5 L (37.0-53.0) % Plt Count 327 (140-440) K/uL BMP 06/13/24 06:12 Sodium 126 L Potassium 4.3 Chloride 96 Carbon Dioxide 20 BUN 23 Creatinine 0.9 Glucose 111 Calcium 8.1 L Cardiac Enzymes 06/13/24 Range/Units 06:12 Troponin I < 0.01 L (0.01-0.04) ng/mL Liver Function 06/13/24 Range/Units 06:12 Total Bilirubin 2.2 H (0.1-1.5) mg/dL AST 25 (12-35) U/L ALT 15 (4-50) U/L Alkaline Phosphatase 71 (40-150) U/L Albumin 3.7 (3.3-5.0) g/dL ECG Attestation: I personally reviewed and interpreted this ECG as follows: (Normal sinus rhythm first-degree AV block. QTC is 376 and QTC is 464. No acute ischemic changes.) ECG interpretation date: 06/13/24 Imaging Chest x-ray: Radiologist's impression: INDICATION: worsening PNA. (Sic) COMPARISON: 06/12/2024 TECHNIQUE: 2 views. FINDINGS: Medical Devices: None. Lung Volumes: Adequate inspiration. No significant atelectasis. Lungs: Redemonstration of airspace opacities in the right middle lobe and anterior segment of the right upper lobe without significant interval change compared to 06/12/2024 at 0338 hours consistent with pneumonia. Pleura and Pleural spaces: No significant pleural effusion. No pneumothorax. Mediastinum: Stable cardiomediastinal silhouette. A radiopaque biomedical engineering director consistent with a leadless cardiac pacemaker is again noted superimposed upon the cardiac silhouette to the left of midline. Tortuous descending thoracic aorta. Bony Thorax and Soft Tissues: No significant interval findings. Osteopenia of the thoracic spine is again noted incidentally. IMPRESSION: Redemonstration of airspace opacities in the right middle lobe and anterior segment of the right upper lobe without significant interval change compared to 06/12/2024 at 0338 hours consistent with pneumonia. Assessment and Plan Assessment and plan (1) Acute hypoxemic respiratory failure: Problem comment: On admission he is febrile, tachypneic, tachycardic with hypoxia, 83% on room air. Chest x-ray shows right middle lobe infiltrate. Will treat as a community-acquired pneumonia. Status: Acute (2) Community acquired pneumonia: Status: Acute (3) Hyponatremia: Problem comment: Acute on chronic. Likely related to pneumonia. Continue to follow. Fluid restriction. Status: Acute (4) Bilirubinemia: Problem comment: Indirect hyperbilirubinemia. Cause uncertain. Chronic problem.? 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 Chronically in sinus rhythm with occasional episodes of atrial fibrillation Status: Acute (10) Hypothyroid: Problem comment: TSH mildly elevated. Check free T4 Status: Acute (11) Immunocompromised: Problem comment: Due to CLL an immune therapy. Status: Acute Plan Admit to hospital for management of hypoxic respiratory failure due to pneumonia. Continue to monitor and manage the multiple other medical problems as well. Reviewed plan of care with patient he is agreeable to this total time spent is 75 minutes in evaluation management and discussion with patient
[2024-06-13] MEDS: RIVAROXABAN 10 MG TABLET 20 MG PO (17:57)
[2024-06-13] MEDS: ALPRAZolam 0.25 MG TABLET PO (20:33)
[2024-06-14] VITALS (19 sets, daily range): BP systolic 121–166; BP diastolic 63–101; PULSE 71–97; RESP 18–20; TEMP 36.7–39.6; O2SAT 91–97
[2024-06-14] MEDS: LEVOTHYROXINE 112 MCG TABLET PO (06:02)
--- NOTE | 2024-06-14 06:47 | PC.NURSE ---
End of shift [id number]: A&O pleasant and cooperative. upon initial assessment pt's temp 102.3. tylenol given. temp WNL on reassessment. VS otherwise stable. maintaining sats on 1.5 L of O2. up with SBA to bathroom. tolerates well. denies pain. call light, water and personal belongings within reach.
[2024-06-14 06:54] LABS: Basophils Percent Auto 0.1 % (0.0-3.0); Hematocrit 24.4 % (37.0-53.0); Immature Granulocytes Pct Auto 0.2 %; Lymphocytes Percent Auto 63.4 % (20-44); Mean Corpuscular HGB Conc 31 gm/dL (32-36); Mean Corpuscular Hemoglobin 31 pg (26-34); Mean Corpuscular Volume 102 fL (80-100); Neutrophils Percent Auto 30.3 % (42.0-72.0); Platelet Count* 280 K/uL (140-440); RDW Coefficient of Variation % 13.1 % (11.5-15.5)
[2024-06-14 07:09] LABS: Chloride* 98 mmol/L (96-114)
[2024-06-14 07:10] LABS: Potassium* 4.7 mmol/L (3.6-5.1); Sodium* 128 mmol/L (135-149)
[2024-06-14 07:12] LABS: Blood Urea Nitrogen* 24 mg/dL (7-30); Est. Creatinine Clearance* 62.52; Estimated Glomerular Filt Rate 77 ml/min
[2024-06-14 07:13] LABS: Alanine Aminotransferase* 12 U/L (4-50); Alkaline Phosphatase* 51 U/L (40-150); Anion Gap 7 mEq/L (7-15); Aspartate Amino Transferase* 25 U/L (12-35); Bilirubin Direct* 0.4 mg/dL (0.0-0.5); Bilirubin Total* 1.3 mg/dL (0.1-1.5); Calcium* 7.7 mg/dL (8.4-10.6); Carbon Dioxide* 23 mmol/L (20-32); Glucose* 103 mg/dL (60-115); Total Protein* 5.1 g/dL (6.0-8.3)
[2024-06-14 07:31] LABS: Free T4 Free Thyroxine* 1.66 ng/dL (0.70-1.85)
[2024-06-14] MEDS: IPRAT-ALBUT 0.5-2.5 MG/3 ML NEB 1 NEB IH ×3 (07:45→20:10)
[2024-06-14] MEDS: cefTRIAXone 2 GM in 0.9 % SODIUM CHLORIDE Mini-bag 100 ML IVPB (07:45)
[2024-06-14 07:49] LABS: White Blood Count* 31.12 K/uL (4.50-11.00)
[2024-06-14 07:50] LABS: Hemoglobin* 7.5 gm/dL (13.5-17.5); Slide Review Reflex Yes
[2024-06-14 07:52] LABS: Slide Review Acceptable Review (Acceptable)
[2024-06-14] MEDS: AMIODARONE 200 MG TABLET 100 MG PO (08:56)
[2024-06-14] MEDS: FAMOTIDINE 20 MG TABLET PO (08:56)
[2024-06-14] MEDS: METOPROLOL TARTRATE 25 MG TABLET PO ×2 (08:57→20:10)
[2024-06-14] MEDS: lisinopriL 10 MG TABLET 15 MG PO ×2 (08:57→20:10)
[2024-06-14] MEDS: AZITHROMYCIN 250 MG TABLET 500 MG PO (08:58)
[2024-06-14] MEDS: TAMSULOSIN HCL 0.4 MG CAPSULE PO (08:58)
[2024-06-14] MEDS: ATORVASTATIN 10 MG TABLET 20 MG PO (08:58)
[2024-06-14] MEDS: SODIUM CHLORIDE 0.9 % (FLUSH) 10 ML SYRINGE 5 ML IVF ×2 (08:58→20:14)
--- NOTE | 2024-06-14 10:57 | CRLHL7_ITS ---
For Patients: As a result of the Century Cures Act, medical imaging exams and procedure reports are released immediately into your electronic medical record. You may view this report before your referring provider. If you have questions, please contact your health care provider. Indication: Worsening hypoxia Comparison: Single-view chest June 2024 Technique: Single AP view chest Findings: There is hyperinflation and chronic interstitial change. There are increasing interstitial and airspace opacities throughout the bilateral hemithoraces commensurate with multifocal infiltrates and/or pulmonary edema. The cardiac silhouette is stable. The bony thorax is grossly intact. Impression: Extensive increasing interstitial and airspace opacities seen throughout the bilateral hemithoraces. Dictated by Jj Monroy MD @ 06/14/2024 12:16:00 PM (Electronically Signed)
[2024-06-14] MEDS: ACETAMINOPHEN 325 MG TABLET 650 MG PO ×2 (10:58→16:45)
[2024-06-14 11:51] LABS: Troponin I* 0.02 ng/mL (0.01-0.04)
[2024-06-14 11:54] LABS: NT Pro B Type NatriureticPept* 5070 pg/mL
[2024-06-14 11:55] LABS: Procalcitonin* 0.24 ng/mL (<0.50)
[2024-06-14 12:07] LABS: Legionella pneumo Ag Urine L. pneumo Negative (Negative); S pneumo Ag Urine S. pneumo Negative (Negative)
[2024-06-14] MEDS: ALPRAZolam 0.25 MG TABLET PO (12:35)
--- NOTE | 2024-06-14 12:48 | CRLHL7_ITS ---
For Patients: As a result of the 21st Century Cures Act, medical imaging exams and procedure reports are released immediately into your electronic medical record. You may view this report before your referring provider. If you have questions, please contact your health care provider. INDICATION: Hypoxic respiratory failure. History of CLL, melanoma, parotid gland malignancy, and prostate malignancy. COMPARISON: PET-CT 11/24/2023, CT chest abdomen pelvis 11/10/2023 and 08/30/2023 TECHNIQUE: CT chest with intravenous contrast. Multiplanar axial, coronal, and sagittal reformats are included. MIP images to improve detection of pulmonary nodules are included. Intravenous contrast: 75 mL Isovue 370 FINDINGS: Airway: Circumferential smooth bronchial wall thickening. Lungs: Multifocal tree-in-bud nodules. Multifocal hazy ground-glass opacities. Multifocal small nodular opacities. Small area of consolidation in the posteromedial right lower lobe. No emphysema. No pulmonary edema. Pleura: Trace bilateral pleural effusions are larger than the comparison exam. No pneumothorax. Lymph nodes: Lower cervical adenopathy not fully included within the field of view but appears about the same as the prior chest CT. Multi station mediastinal adenopathy. Right pretracheal lymph node measures 3.7 cm, previously 3.6 cm. Subcarinal lymph node measures 3.2 cm, previously 3.4 cm. Left greater than right axillary and subpectoral adenopathy. No new adenopathy. No substantially worsened adenopathy.. Mediastinum: No pneumomediastinum. Heart and great vessels: Trace pericardial effusion is similar to prior. Normal cardiac chamber size. Heavy calcified coronary and a few scattered other atherosclerotic plaques. No aortic aneurysm. Normal caliber main pulmonary artery. No central pulmonary embolism. Chest wall: Mild left axillary and lateral chest wall edema. Subcutaneous cyst in the posterior lower neck. Similar to the prior PET-CT with no PET avidity, presumably a benign subdermal cyst. Upper abdomen: Confluent retroperitoneal and periportal adenopathy is about the same. Spleen size is within normal limits. Bones: No fractures. Thoracic DISH. No focal bone lesions. IMPRESSION: 1. Pattern of lung opacities is most consistent with diffuse infectious distal airways disease and multifocal bronchopneumonia. Overall the appearance is different but slightly worse than 11/10/2023. Recommend attention on follow-up to exclude malignancy. 2. Small bilateral pleural effusions are slightly larger. 3. Multi station lower cervical, thoracic, and upper abdominal adenopathy is about the same. Please note that all CT scans at this facility use dose modulation, iterative reconstruction, and/or weight-based dosing when appropriate to reduce radiation dose to as low as reasonably achievable. Dictated by Frances Dorman MD @ 06/14/2024 2:42:50 PM (Electronically Signed)
[2024-06-14] MEDS: predniSONE 20 MG TABLET 70 MG PO (13:23)
[2024-06-14] MEDS: FUROSEMIDE 10 MG/ML inj 20 MG IVP (13:25)
--- NOTE | 2024-06-14 17:36 | P.IMPN_ITS ---
Progress Note: A&P Assessment and plan (1) Acute hypoxemic respiratory failure: Problem details: On admission he is febrile, tachypneic, tachycardic with hypoxia, 83% on room air. Chest x-ray shows right middle lobe infiltrate. Will treat as a community-acquired pneumonia. Second in the hospital he is getting worse so antibiotic spectrum his broadened to vancomycin, a Zithromax in, imipenem. Status: Acute (2) Community acquired pneumonia: Problem details: Initial clinical diagnosis is community-acquired pneumonia. Also concern for pneumonitis from immune checkpoint inhibitors. Status: Acute (3) Hyponatremia: Problem details: Acute on chronic. Likely related to pneumonia. Continue to follow. Fluid restriction. Status: Acute (4) Bilirubinemia: Problem details: Indirect hyperbilirubinemia. Cause uncertain. Chronic problem. 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, currently on amiodarone. Chronically in sinus rhythm with occasional episodes of atrial fibrillation Status: Acute (10) Hypothyroid: Problem details: TSH mildly elevated. 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 Status: Acute (12) Pneumonitis: Problem details: Possible pneumonitis due to immune therapy/checkpoint inhibitors. Start prednisone 1 milligram/kilos per day Status: Acute Plan Continue in hospital for ongoing evaluation management of hypoxic respiratory failure/pneumonia/pneumonitis. Discussed with infectious disease and oncology specialists plan of care. Consider transfer for higher level of care depending on clinical course and availability of beds. Currently no tertiary care beds available. Total time spent today is 75 minutes in evaluation management and discussion patient, family, other providers and infectious disease and oncology consultations. Subjective Date Seen: 06/14/24 Interval history: Chad Jensen is a 78 year old male presents the emergency department with daughter, 2nd time this week, was evaluated in the wee hours yesterday just over 24 hours ago. Diagnosed with pneumonia, given a dose of IV Rocephin and azithromycin. 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 He was given a single dose of steroids and neb treatment and felt much better. He had no hypoxia upon presentation yesterday and his labs were overall stable. Chest x-ray it confirmed the right-sided pneumonia. Patient is very anxious regarding this pneumonia as his just 6 days ago of pneumonia as well. She declined very rapidly. It sounds as though she had some comorbid health issues. Patient himself is immunocompromised as well. Patient says that he had been doing well yesterday until he woke up at 5:00 a.m. feeling very short of breath. No chest pain, still has cough. Had been eating and drinking fairly well. No other interval changes from yesterday. 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 Past medical history notable for both squamous cell carcinoma and CLL, hyperlipidemia and hypertension as well as AFib, anticoagulated on Eliquis. Medications unchanged from yesterday. Nonsmoker with no prior history of COPD. ROS is notable for the respiratory symptoms as above only, otherwise denies times 12 systems. 06/13/2024: Additional history: Patient reports that he has just gradually gotten worse over the last day with increasing dyspnea. Not eating well. Profoundly weak. In the emergency department he reports that he did respond to the inhalers though he has no history of asthma or COPD. 06/14/2024: Patient is feeling worse this morning. He is having fevers, more short of breath worsening fatigue and malaise. We started on a blood transfusion is day and after 45 minutes his fever went up about 3? F. blood transfusion was stopped and transfusion reaction protocol initiated. This afternoon he was feeling better. Discussed with patient and family his healthcare status, tentative diagnoses and ongoing plan of care I reviewed plan of care with his oncologist, Dr. Birdie Hurtado. [phone]. We discussed the possibility that his immune therapy is causing pneumonitis and did start prednisone for that. She would like an update tomorrow on his clinical condition. We discussed possible transfer to [place] for more specialty care. Currently no beds available. Also no beds available in the [facility]. I reviewed his plan of care with infectious disease consult Dr. Yudith Youssef. She recommends ongoing broad-spectrum antibiotics pending results of cultures and testing. Stop vancomycin if MRSA swab is negative. Deescalate care as he clinically improves. Obtain broader respiratory viral panel. Exam Narrative: Exam Narrative: He is alert, anxious and in mild respiratory distress with supplemental oxygen per nasal cannula. O2 sats are in the low 90s. He is diaphoretic. No apparent rash. Respirations with increased rate and work of breathing and diffuse coarse expiratory wheezes and somewhat diffuse rhonchi as well. Fair air exchange in all lung gruber. Cardiovascular: S1, S2, regular rate and rhythm. Abdomen is soft without tenderness. Bowel sounds are active. 1+ edema in his right ankle Const: Vital Signs, click to edit/add: Vital Signs - 24 hr 06/13/24 19:00 06/13/24 22:35 06/13/24 23:25 Temperature 97.9 F 102.3 F H Pulse Rate Pulse Rate [Pulse Oximeter] 90 75 Respiratory Rate 18 18 Blood Pressure Blood Pressure [Le ft Arm] 142/68 H 108/57 L Pulse Oximetry 93 93 93 Oxygen Delivery Me thod Room Air Nasal Cannula Nasal Cannula Oxygen Flow Rate 1 1.5 06/14/24 00:27 06/14/24 00:28 06/14/24 00:44 Temperature Pulse Rate 71 Pulse Rate [Pulse Oximeter] Respiratory Rate 18 Blood Pressure Blood Pressure [Le ft Arm] Pulse Oximetry 93 93 Oxygen Delivery Me thod Nasal Cannula Oxygen Flow Rate 1.5 06/14/24 02:38 06/14/24 07:40 06/14/24 08:00 Temperature 98.6 F 98.2 F Pulse Rate Pulse Rate [Pulse Oximeter] 75 77 79 Respiratory Rate 20 20 20 Blood Pressure Blood Pressure [Le ft Arm] 121/63 147/71 H Pulse Oximetry 91 91 Oxygen Delivery Me thod Nasal Cannula Nasal Cannula Oxygen Flow Rate 1.5 1 06/14/24 08:00 06/14/24 08:00 06/14/24 09:48 Temperature 100.5 F H Pulse Rate 79 Pulse Rate [Pulse Oximeter] Respiratory Rate 20 18 Blood Pressure 157/75 H Blood Pressure [Le ft Arm] Pulse Oximetry 91 91 97 Oxygen Delivery Me thod Nasal Cannula Room Air Oxygen Flow Rate 1 06/14/24 10:12 06/14/24 10:37 06/14/24 10:58 Temperature 101.3 F H 101.5 F H 101.5 F H Pulse Rate 82 Pulse Rate [Pulse Oximeter] Respiratory Rate 20 Blood Pressure 166/89 H Blood Pressure [Le ft Arm] Pulse Oximetry 96 Oxygen Delivery Me thod Nasal Cannula Oxygen Flow Rate 2 06/14/24 11:28 06/14/24 11:28 06/14/24 11:28 Temperature 103.2 F H 103.2 F H 103.2 F H Pulse Rate Pulse Rate [Pulse Oximeter] Respiratory Rate Blood Pressure Blood Pressure [Le ft Arm] Pulse Oximetry Oxygen Delivery Me thod Oxygen Flow Rate 06/14/24 13:00 06/14/24 13:18 06/14/24 16:00 Temperature 99.3 F 99.4 F Pulse Rate 76 Pulse Rate [Pulse Oximeter] 77 95 Respiratory Rate 20 18 Blood Pressure Blood Pressure [Le ft Arm] 131/73 132/82 Pulse Oximetry 93 94 Oxygen Delivery Me thod Nasal Cannula Nasal Cannula Oxygen Flow Rate 2 1.5 06/14/24 17:05 06/14/24 17:05 06/14/24 17:08 Temperature Pulse Rate Pulse Rate [Pulse Oximeter] 95 Respiratory Rate 18 18 Blood Pressure Blood Pressure [Le ft Arm] Pulse Oximetry 94 94 Oxygen Delivery Me thod Nasal Cannula Oxygen Flow Rate 1.5 Documenting provider has reviewed patient's vital signs: yes Labs Labs: Laboratory Results - last 24 hr 06/14/24 06/14/24 06/14/24 06:05 07:53 11:23 WBC 31.12 H* RBC 2.40 L Hgb 7.5 L* Hct 24.4 L MCV 102 H MCH 31 MCHC 31 L RDW Coeff of Ekta 13.1 Plt Count 280 Neut % (Auto) 30.3 L Lymph % (Auto) 63.4 H [place] % (Auto) 6.0 Eos % (Auto) 0.0 Baso % (Auto) 0.1 Neut # (Auto) 9.40 H Lymph # (Auto) 19.70 H [place] # (Auto) 1.90 H Eos # (Auto) 0.00 Baso # (Auto) 0.00 Abs Immat Gran (auto) 0.10 Imm/Tot Granulo (auto) 0.2 Diff Slide Review Acceptable Review Sodium 128 L Potassium 4.7 Chloride 98 Carbon Dioxide 23 Anion Gap 7 BUN 24 Creatinine 1.0 Estimated Creat Clear 62.52 Estimated GFR 77 Glucose 103 Lactate Calcium 7.7 L Total Bilirubin 1.3 Direct Bilirubin 0.4 AST 25 ALT 12 Alkaline Phosphatase 51 Troponin I 0.02 NT-Pro-B Natriuret Pep 5070 Total Protein 5.1 L Albumin 3.0 L Procalcitonin 0.24 Free T4 1.66 Urine L. pneumophilia Ag Urine Strep pneumoniae Ag Lab Acknowledgement Test Added Blood Type B Positive Antibody Screen NEGATIVE Crossmatch (AHG) See Detail Hemolysis Bld Bag Check Pre-Trans Antibody Scrn Pre-Trans CINDA Result Pre-Trans Ur Hemoglobin Post-Tx Serum Hemolysis Post-Trans Antibody Scrn Post-Tx Rxn CINDA Result 06/14/24 06/14/24 06/14/24 11:30 11:42 12:05 WBC RBC Hgb Hct MCV MCH MCHC RDW Coeff of [place] Plt Count Neut % (Auto) Lymph % (Auto) [place] % (Auto) Eos % (Auto) Baso % (Auto) Neut # (Auto) Lymph # (Auto) [place] # (Auto) Eos # (Auto) Baso # (Auto) Abs Immat Gran (auto) Imm/Tot Granulo (auto) Diff Slide Review Sodium Potassium Chloride Carbon Dioxide Anion Gap BUN Creatinine Estimated Creat Clear Estimated GFR Glucose Lactate 1.0 Calcium Total Bilirubin Direct Bilirubin AST ALT Alkaline Phosphatase Troponin I NT-Pro-B Natriuret Pep Total Protein Albumin Procalcitonin Free T4 Urine L. pneumophilia Ag L. pneumo Negative Urine Strep pneumoniae Ag S. pneumo Negative Lab Acknowledgement Blood Type Antibody Screen Crossmatch (AHG) Hemolysis Bld Bag Check NEG Pre-Trans Antibody Scrn NEGATIVE Pre-Trans CINDA Result NEGATIVE Pre-Trans Ur Hemoglobin TRACE Post-Tx Serum Hemolysis NEG Post-Trans Antibody Scrn NEGATIVE Post-Tx Rxn CINDA Result NEGATIVE
[2024-06-14] MEDS: RIVAROXABAN 10 MG TABLET 20 MG PO (18:04)
[2024-06-14 19:14] LABS: HCO3 VBG 23 mmol/L (21-28); PCO2 VBG 33 mmHG (40-50); PO2 VBG 71.9 mmHG (25-47); pH VBG 7.453 (7.32-7.43)
--- NOTE | 2024-06-14 19:47 | PC.NURSE ---
End of Shift: Patient pleasant and cooperative, A&O. T-max this shift was 103.2, PRN medication given, see MAR.?MD ordered blood transfusion this morning, patient had a fever before starting blood, progressively got worse throughout first 45 minutes of infusion, stopped transfusion per MD. All temperatures charted in MAR. Per lab patient had a ?febrile reaction?. SBA. Tolerating regular diet. ?
[2024-06-15] VITALS (9 sets, daily range): BP systolic 133–155; BP diastolic 68–88; PULSE 64–84; RESP 18–20; TEMP 36.6–36.8; O2SAT 90–96
[2024-06-15 02:11] LABS: Haptoglobin 186 mg/dL (30-200)
[2024-06-15 06:11] LABS: Appearance Urine Cloudy (Clear); Bilirubin Urine Negative (Negative); Blood Urine Trace-intact (Negative); Color Urine Yellow (Yellow); Glucose Urine Negative (Negative); Ketones Urine Negative (Negative); Leukocyte Esterase Urine Negative (Negative); Nitrite Urine Negative (Negative); Protein Urine 2+ (Negative); Specific Gravity Urine >= 1.030 (1.000-1.030); Urobilinogen Urine 0.2 (0.2-1.0)
[2024-06-15 06:15] LABS: RBC Urine 0-2 (0-2); Squamous Epithelial Cell Urine Few (None-Few); WBC Urine 0-2 (0-5)
[2024-06-15 06:16] LABS: Amorphous Sediment Urine Many; Bacteria Urine Moderate
[2024-06-15 06:27] LABS: Basophils Percent Auto 0.1 % (0.0-3.0); Hematocrit 25.2 % (37.0-53.0); Immature Granulocytes Pct Auto 0.1 %; Lymphocytes Percent Auto 67.4 % (20-44); Mean Corpuscular HGB Conc 31 gm/dL (32-36); Mean Corpuscular Hemoglobin 31 pg (26-34); Mean Corpuscular Volume 100 fL (80-100); Neutrophils Percent Auto 26.4 % (42.0-72.0); Platelet Count* 282 K/uL (140-440); RDW Coefficient of Variation % 13.7 % (11.5-15.5); Red Blood Count 2.53 m/uL (4.30-5.90)
[2024-06-15 06:36] LABS: Hemoglobin* 7.9 gm/dL (13.5-17.5); White Blood Count* 27.06 K/uL (4.50-11.00)
[2024-06-15] MEDS: LEVOTHYROXINE 112 MCG TABLET PO (06:41)
[2024-06-15 06:54] LABS: Chloride* 99 mmol/L (96-114); Sodium* 129 mmol/L (135-149)
[2024-06-15 06:56] LABS: Creatinine* 0.8 mg/dL (0.5-1.5); Est. Creatinine Clearance* 62.45; Estimated Glomerular Filt Rate 91 ml/min
[2024-06-15 06:57] LABS: Anion Gap 5 mEq/L (7-15); Blood Urea Nitrogen* 25 mg/dL (7-30); Calcium* 7.6 mg/dL (8.4-10.6); Carbon Dioxide* 25 mmol/L (20-32); Glucose* 124 mg/dL (60-115)
[2024-06-15 07:04] LABS: Slide Review Reflex Yes
--- NOTE | 2024-06-15 07:28 | PC.NURSE ---
Pleasant and cooperative during cares, VSS, on 1 L NC overnight. Productive cough, although the patient does not report SOB. No reports of pain. IV abx infused overnight. Call light within reach. Ema AGUILAR BSN
[2024-06-15 07:39] LABS: Slide Review Acceptable Review (Acceptable)
[2024-06-15] MEDS: IPRAT-ALBUT 0.5-2.5 MG/3 ML NEB 1 NEB IH ×3 (08:20→20:03)
[2024-06-15] MEDS: AMIODARONE 200 MG TABLET 100 MG PO (09:15)
[2024-06-15] MEDS: METOPROLOL TARTRATE 25 MG TABLET PO ×2 (09:16→20:48)
[2024-06-15] MEDS: lisinopriL 10 MG TABLET 15 MG PO ×2 (09:16→20:48)
[2024-06-15] MEDS: ATORVASTATIN 10 MG TABLET 20 MG PO (09:16)
[2024-06-15] MEDS: AZITHROMYCIN 250 MG TABLET 500 MG PO (09:18)
[2024-06-15] MEDS: TAMSULOSIN HCL 0.4 MG CAPSULE PO (09:19)
[2024-06-15] MEDS: FAMOTIDINE 20 MG TABLET PO (09:19)
[2024-06-15] MEDS: predniSONE 20 MG TABLET 70 MG PO (09:51)
[2024-06-15] MEDS: SODIUM CHLORIDE 0.9 % (FLUSH) 10 ML SYRINGE 5 ML IVF ×2 (09:54→20:06)
--- NOTE | 2024-06-15 16:28 | P.IMPN_ITS ---
Progress Note: A&P Assessment and plan (1) Acute hypoxemic respiratory failure: Problem details: On admission he is febrile, tachypneic, tachycardic with hypoxia, 83% on room air. Chest x-ray shows right middle lobe infiltrate. Will treat as a community-acquired pneumonia. Initially in the hospital he was getting worse so antibiotic spectrum was broadened to vancomycin, a Zithromax in, imipenem. -as of the morning of 06/15/2024 he is no longer requiring oxygen supplementation to maintain resting room air oxygen saturations greater than 88%. Status: Acute (2) Community acquired pneumonia: Problem details: Initial clinical diagnosis is community-acquired pneumonia. Also concern for pneumonitis from immune checkpoint inhibitors, for which reason he was started on the prednisone 70 mg once daily yesterday. -nasal MRSA swab negative. Stop IV vancomycin. Continue with imipenem and azithromycin. Status: Acute (3) Hyponatremia: Problem details: Acute on chronic. Likely related to pneumonia. Continue to follow. Fluid restriction. Status: Acute (4) Bilirubinemia: Problem details: Indirect hyperbilirubinemia. Cause uncertain. Chronic problem. 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 -immunotherapy on hold until he has appropriate follow-up in the outpatient setting and it is determined that is safe for him to resume Status: Acute (7) Chronic anticoagulation: Problem details: xarelto for AFib Status: Acute (8) CLL (chronic lymphocytic leukemia): Problem details: TP53 (17p-~53%) and trisomy 12 (~52%), on acalabrutinib reduced dose 200 mg daily -immunotherapy on hold until such time it is determined in the outpatient setting that is safe for him to resume Status: Acute (9) Atrial fibrillation with rapid ventricular response: Problem details: Follows with Cardiology [facility], currently on amiodarone. Chronically in sinus rhythm with occasional episodes of atrial fibrillation Status: Acute (10) Hypothyroid: Problem details: TSH mildly elevated. 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 Status: Acute (12) Pneumonitis: Problem details: Possible pneumonitis due to immune therapy/checkpoint inhibitors. Start prednisone 1 milligram/kilos per day Status: Acute (13) Human metapneumovirus (hMPV) pneumonia: Problem details: -continue with treatment for possible community-acquired pneumonia, as well as the prednisone therapy for possible drug-induced pneumonitis. -continue with supportive efforts Status: Acute Plan 1. Reviewed impression and recommendations with patient and family 2. Able to reach the patient's oncologist, Dr. Birdie Hurtado, cell phone [phone]. Continue with plan as above. Consider transfer to [facility] if condition worsening or not improving over the weekend 3. Answered patient and family questions to their satisfaction 4. Patient agreeable with above stated plans and recommendations Time Spent With Patient Total time spent: 65 minutes Subjective Date Seen: 06/15/24 Interval history: Chad Jensen is a 78 year old male presents the emergency department with daughter, 2nd time this week, was evaluated in the wee hours yesterday just over 24 hours ago. Diagnosed with pneumonia, given a dose of IV Rocephin and azithromycin. 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 He was given a single dose of steroids and neb treatment and felt much better. He had no hypoxia upon presentation yesterday and his labs were overall stable. Chest x-ray it confirmed the right-sided pneumonia. Patient is very anxious regarding this pneumonia as his just 6 days ago of pneumonia as well. She declined very rapidly. It sounds as though she had some comorbid health issues. Patient himself is immunocompromised as well. Patient says that he had been doing well yesterday until he woke up at 5:00 a.m. feeling very short of breath. No chest pain, still has cough. Had been eating and drinking fairly well. No other interval changes from yesterday. 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 Past medical history notable for both squamous cell carcinoma and CLL, hyperlipidemia and hypertension as well as AFib, anticoagulated on Eliquis. Medications unchanged from yesterday. Nonsmoker with no prior history of COPD. ROS is notable for the respiratory symptoms as above only, otherwise denies times 12 systems. 06/13/2024: Additional history: Patient reports that he has just gradually gotten worse over the last day with increasing dyspnea. Not eating well. Profoundly weak. In the emergency department he reports that he did respond to the inhalers though he has no history of asthma or COPD. 06/14/2024: Patient is feeling worse this morning. He is having fevers, more short of breath worsening fatigue and malaise. We started on a blood transfusion is day and after 45 minutes his fever went up about 3? F. blood transfusion was stopped and transfusion reaction protocol initiated. This afternoon he was feeling better. Discussed with patient and family his healthcare status, tentative diagnoses and ongoing plan of care I reviewed plan of care with his oncologist, Dr. Birdie Hurtado. [phone]. We discussed the possibility that his immune therapy is causing pneumonitis and did start prednisone for that. She would like an update tomorrow on his clinical condition. We discussed possible transfer to [place] for more specialty care. Currently no beds available. Also no beds available in the [facility]. I reviewed his plan of care with infectious disease consult Dr. Yudith Youssef. She recommends ongoing broad-spectrum antibiotics pending results of cultures and testing. Stop vancomycin if MRSA swab is negative. Deescalate care as he clinically improves. Obtain broader respiratory viral panel. Hospital day 3, 06/15/2024. Started his prednisone yesterday for possible drug-induced pneumonitis. Notes that he feels improved. Not as weak. No longer hypoxic. Appetite is improving. Tolerating increased activities. Exam Narrative: Exam Narrative: Examined patient in his hospital room with his 2 daughters and son-in-law present. Awake, alert, oriented x4, cooperative. Appears tired but comfortable and in no acute distress. Lungs with scattered rhonchi and end inspiratory rales. No wheezing. Heart tones with regular rhythm, normal S1-S2. Not requiring oxygen supplementation at this time. Room air oxygen saturations in the mid 90s. Abdomen is thin with active bowel sounds, soft, nontender. Respiratory panel PCR results obtained. Remarkable for having detected human metapneumovirus with all other viral particles negative including influenza, COVID, parainfluenza, rhinovirus, etc. Const: Vital Signs, click to edit/add: Vital Signs - 24 hr 06/14/24 17:05 06/14/24 17:05 06/14/24 17:08 Temperature Pulse Rate Pulse Rate [Pulse Oximeter] 95 Respiratory Rate 18 18 Blood Pressure [Le ft Arm] Pulse Oximetry 94 94 Oxygen Delivery Me thod Nasal Cannula Oxygen Flow Rate 1.5 06/14/24 17:47 06/14/24 19:00 06/14/24 23:00 Temperature 98.2 F 98.1 F Pulse Rate 97 Pulse Rate [Pulse Oximeter] 92 71 Respiratory Rate 18 18 Blood Pressure [Le ft Arm] 133/101 H 135/74 Pulse Oximetry 94 94 Oxygen Delivery Me thod Nasal Cannula Nasal Cannula Oxygen Flow Rate 1 1 06/14/24 23:00 06/14/24 23:00 06/15/24 03:00 Temperature 98.2 F Pulse Rate Pulse Rate [Pulse Oximeter] 71 Respiratory Rate 18 18 Blood Pressure [Le ft Arm] 142/88 H Pulse Oximetry 94 94 95 Oxygen Delivery Me thod Nasal Cannula Room Air Oxygen Flow Rate 1 06/15/24 04:30 06/15/24 07:00 06/15/24 07:00 Temperature Pulse Rate Pulse Rate [Pulse Oximeter] Respiratory Rate 18 Blood Pressure [Le ft Arm] Pulse Oximetry 90 93 93 Oxygen Delivery Me thod Room Air Room Air Oxygen Flow Rate 06/15/24 07:00 06/15/24 08:13 06/15/24 11:00 Temperature 97.8 F 97.8 F Pulse Rate 69 Pulse Rate [Pulse Oximeter] 73 76 Respiratory Rate 20 18 Blood Pressure [Le ft Arm] 133/78 142/68 H Pulse Oximetry 96 94 Oxygen Delivery Me thod Nasal Cannula Room Air Oxygen Flow Rate 1 06/15/24 15:00 Temperature Pulse Rate 84 Pulse Rate [Pulse Oximeter] Respiratory Rate Blood Pressure [Le ft Arm] Pulse Oximetry Oxygen Delivery Me thod Oxygen Flow Rate Labs Labs: Laboratory Results - last 24 hr 06/13/24 06/14/24 06/14/24 06:12 07:53 17:00 WBC RBC Hgb Hct MCV MCH MCHC RDW Coeff of Ek[place] Plt Count Neut % (Auto) Lymph % (Auto) [place] % (Auto) Eos % (Auto) Baso % (Auto) Neut # (Auto) Lymph # (Auto) [place] # (Auto) Eos # (Auto) Baso # (Auto) Abs Immat Gran (auto) Imm/Tot Granulo (auto) Diff Slide Review VBG pH VBG pCO2 VBG pO2 VBG HCO3 Sodium Potassium Chloride Carbon Dioxide Anion Gap BUN Creatinine Estimated Creat Clear Estimated GFR Glucose Haptoglobin 186 Calcium Urine Color Yellow Urine Appearance Cloudy A Urine pH 6.0 Ur Specific [place] >= 1.030 Urine Protein 2+ A Urine Glucose (UA) Negative Urine Ketones Negative Urine Blood Trace-intact A Urine Nitrite Negative Urine Bilirubin Negative Urine Urobilinogen 0.2 Ur Leukocyte Esterase Negative Urine RBC 0-2 Urine WBC 0-2 Ur Squamous Epith Cells Few Amorphous Sediment Many A Urine Bacteria Moderate A Crossmatch ([facility]) See Detail 06/14/24 06/15/24 19:09 06:03 WBC 27.06 H* RBC 2.53 L Hgb 7.9 L* Hct 25.2 L MCV 100 MCH 31 MCHC 31 L RDW Coeff of [place] 13.7 Plt Count 282 Neut % (Auto) 26.4 L Lymph % (Auto) 67.4 H [place] % (Auto) 6.0 Eos % (Auto) 0.0 Baso % (Auto) 0.1 Neut # (Auto) 7.10 H Lymph # (Auto) 18.20 H [place] # (Auto) 1.60 H Eos # (Auto) 0.00 Baso # (Auto) 0.00 Abs Immat Gran (auto) 0.00 Imm/Tot Granulo (auto) 0.1 Diff Slide Review Acceptable Review VBG pH 7.453 H VBG pCO2 33 L VBG pO2 71.9 H VBG HCO3 23 Sodium 129 L Potassium 4.0 Chloride 99 Carbon Dioxide 25 Anion Gap 5 L BUN 25 Creatinine 0.8 Estimated Creat Clear 62.45 Estimated GFR 91 Glucose 124 H Haptoglobin Calcium 7.6 L Urine Color Urine Appearance Urine pH Ur Specific [place] Urine Protein Urine Glucose (UA) Urine Ketones Urine Blood Urine Nitrite Urine Bilirubin Urine Urobilinogen Ur Leukocyte Esterase Urine RBC Urine WBC Ur Squamous Epith Cells Amorphous Sediment Urine Bacteria Crossmatch ([facility])
[2024-06-15] MEDS: RIVAROXABAN 10 MG TABLET 20 MG PO (18:36)
[2024-06-16] VITALS (13 sets, daily range): BP systolic 133–179; BP diastolic 78–97; PULSE 58–75; RESP 16–20; TEMP 36.4–36.9; O2SAT 90–95
[2024-06-16] MEDS: IPRAT-ALBUT 0.5-2.5 MG/3 ML NEB 1 NEB IH ×4 (01:40→19:49)
[2024-06-16] MEDS: LEVOTHYROXINE 112 MCG TABLET PO (06:10)
--- NOTE | 2024-06-16 06:34 | PC.NURSE ---
Shift note: Pt alert and oriented. Independent in room. He has been on RA at the start of the shift and was doing well. At 2300, O2 desaturated as low as 84%. This was when patient was sleeping. He has since been on 1L until this morning. He appeared somewhat anxious to fall asleep. Pt reported that his diet few days ago from thew same pnx and appeared to have contracted the infection from her. He added that MD mentioned to him that he appears more sicker. This contributed to the increase in anxiety. Xanax was offered but pt refused. He finally fell asleep around 0010. No fever recorded. End expiratory wheezing with fine crackles noted. Due treatment given as per chart.
[2024-06-16 06:40] LABS: Basophils Percent Auto 0.1 % (0.0-3.0); Hematocrit 24.1 % (37.0-53.0); Immature Granulocytes Pct Auto 0.2 %; Mean Corpuscular HGB Conc 31 gm/dL (32-36); Mean Corpuscular Hemoglobin 31 pg (26-34); Mean Corpuscular Volume 99 fL (80-100); Monocytes Percent Auto 6.5 % (0.0-11.0); Neutrophils Percent Auto 31.2 % (42.0-72.0); Platelet Count* 313 K/uL (140-440); RDW Coefficient of Variation % 13.5 % (11.5-15.5); Red Blood Count 2.43 m/uL (4.30-5.90); White Blood Count* 24.45 K/uL (4.50-11.00)
[2024-06-16 06:52] LABS: Chloride* 100 mmol/L (96-114); Potassium* 3.9 mmol/L (3.6-5.1); Sodium* 130 mmol/L (135-149)
[2024-06-16 06:55] LABS: Anion Gap 4 mEq/L (7-15); Blood Urea Nitrogen* 28 mg/dL (7-30); Carbon Dioxide* 26 mmol/L (20-32); Creatinine* 0.7 mg/dL (0.5-1.5); Est. Creatinine Clearance* 62.25; Estimated Glomerular Filt Rate 94 ml/min
[2024-06-16 06:56] LABS: Calcium* 7.9 mg/dL (8.4-10.6); Glucose* 109 mg/dL (60-115)
[2024-06-16 07:03] LABS: Hemoglobin* 7.5 gm/dL (13.5-17.5); Slide Review Reflex No
[2024-06-16] MEDS: predniSONE 20 MG TABLET 70 MG PO (08:25)
[2024-06-16] MEDS: TAMSULOSIN HCL 0.4 MG CAPSULE PO (09:04)
[2024-06-16] MEDS: ATORVASTATIN 10 MG TABLET 20 MG PO (09:04)
[2024-06-16] MEDS: METOPROLOL TARTRATE 25 MG TABLET PO ×2 (09:05→21:35)
[2024-06-16] MEDS: AZITHROMYCIN 250 MG TABLET 500 MG PO (09:05)
[2024-06-16] MEDS: AMIODARONE 200 MG TABLET 100 MG PO (09:05)
[2024-06-16] MEDS: lisinopriL 10 MG TABLET 15 MG PO ×2 (09:06→21:35)
[2024-06-16] MEDS: FAMOTIDINE 20 MG TABLET PO (09:06)
[2024-06-16] MEDS: SODIUM CHLORIDE 0.9 % (FLUSH) 10 ML SYRINGE 5 ML IVF ×2 (09:07→19:50)
[2024-06-16] MEDS: ACETAMINOPHEN 500 MG TABLET 1000 MG PO (14:00)
--- NOTE | 2024-06-16 17:26 | PM.IMPN1 ---
Progress Note: A&P Assessment and plan (1) Acute hypoxemic respiratory failure: Problem details: On admission he is febrile, tachypneic, tachycardic with hypoxia, 83% on room air. Chest x-ray shows right middle lobe infiltrate. Will treat as a community-acquired pneumonia. Initially in the hospital he was getting worse so antibiotic spectrum was broadened to vancomycin, a Zithromax in, imipenem. -as of the morning of 06/15/2024 he is no longer requiring oxygen supplementation to maintain resting room air oxygen saturations greater than 88%. Status: Acute (2) Community acquired pneumonia: Problem details: Initial clinical diagnosis is community-acquired pneumonia. Also concern for pneumonitis from immune checkpoint inhibitors, for which reason he was started on the prednisone 70 mg once daily yesterday. -nasal MRSA swab negative. Stop IV vancomycin. Continue with imipenem and azithromycin. Status: Acute (3) Hyponatremia: Problem details: Acute on chronic. Likely related to pneumonia. Continue to follow. Fluid restriction. Status: Acute (4) Bilirubinemia: Problem details: Indirect hyperbilirubinemia. Cause uncertain. Chronic problem. 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 -immunotherapy on hold until he has appropriate follow-up in the outpatient setting and it is determined that is safe for him to resume Status: Acute (7) Chronic anticoagulation: Problem details: xarelto for AFib Status: Acute (8) CLL (chronic lymphocytic leukemia): Problem details: TP53 (17p-~53%) and trisomy 12 (~52%), on acalabrutinib reduced dose 200 mg daily -immunotherapy on hold until such time it is determined in the outpatient setting that is safe for him to resume Status: Acute (9) Atrial fibrillation with rapid ventricular response: Problem details: Follows with Cardiology [facility], currently on amiodarone. Chronically in sinus rhythm with occasional episodes of atrial fibrillation Status: Acute (10) Hypothyroid: Problem details: TSH mildly elevated. 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 Status: Acute (12) Pneumonitis: Problem details: Possible pneumonitis due to immune therapy/checkpoint inhibitors. Start prednisone 1 milligram/kilos per day Status: Acute (13) Human metapneumovirus (hMPV) pneumonia: Problem details: -continue with treatment for possible community-acquired pneumonia, as well as the prednisone therapy for possible drug-induced pneumonitis. -continue with supportive efforts Status: Acute Plan 1. Continue with IV antibiotics as presently instituted with intent to possibly discontinue this coming Tuesday after discussion with Infectious Diseases 2. Continue with prednisone as presently instituted with intent to complete 1 week before starting taper 3. Will transfuse with 1 unit of packed red blood cells today and reassess hemoglobin tomorrow 4. Restart his iron but at a lower dose of 325 mg of ferrous sulfate twice daily for now and consider resuming 3 times daily at time of discharge 5. Instructed on proper use of Aerobika device 6. Answered patient's and family's questions to their satisfaction 7. They are agreeable with above stated plans and recommendations Time Spent With Patient Total time spent: 45 minutes Subjective Date Seen: 06/16/24 Interval history: Chad Jensen is a 78 year old male presents the emergency department with daughter, 2nd time this week, was evaluated in the wee hours yesterday just over 24 hours ago. Diagnosed with pneumonia, given a dose of IV Rocephin and azithromycin. Did poultry picker his Ceftin and azithromycin that he was to continue taking and was scheduled to start it in a few hours. He was given a single dose of steroids and neb treatment and felt much better. He had no hypoxia upon presentation yesterday and his labs were overall stable. Chest x-ray it confirmed the right-sided pneumonia. Patient is very anxious regarding this pneumonia as his just 6 days ago of pneumonia as well. She declined very rapidly. It sounds as though she had some comorbid health issues. Patient himself is immunocompromised as well. Patient says that he had been doing well yesterday until he woke up at 5:00 a.m. feeling very short of breath. No chest pain, still has cough. Had been eating and drinking fairly well. No other interval changes from yesterday. Unfortunately, he was unable to poultry picker the inhaler as they were out of stock and he has plan to pick it up today. Past medical history notable for both squamous cell carcinoma and CLL, hyperlipidemia and hypertension as well as AFib, anticoagulated on Eliquis. Medications unchanged from yesterday. Nonsmoker with no prior history of COPD. ROS is notable for the respiratory symptoms as above only, otherwise denies times 12 systems. 06/13/2024: Additional history: Patient reports that he has just gradually gotten worse over the last day with increasing dyspnea. Not eating well. Profoundly weak. In the emergency department he reports that he did respond to the inhalers though he has no history of asthma or COPD. 06/14/2024: Patient is feeling worse this morning. He is having fevers, more short of breath worsening fatigue and malaise. We started on a blood transfusion is day and after 45 minutes his fever went up about 3? F. blood transfusion was stopped and transfusion reaction protocol initiated. This afternoon he was feeling better. Discussed with patient and family his healthcare status, tentative diagnoses and ongoing plan of care I reviewed plan of care with his oncologist, Dr. Birdie Hurtado. [phone]. We discussed the possibility that his immune therapy is causing pneumonitis and did start prednisone for that. She would like an update tomorrow on his clinical condition. We discussed possible transfer to [place] for more specialty care. Currently no beds available. Also no beds available in the [facility]. I reviewed his plan of care with infectious disease consult Dr. Yudith Youssef. She recommends ongoing broad-spectrum antibiotics pending results of cultures and testing. Stop vancomycin if MRSA swab is negative. Deescalate care as he clinically improves. Obtain broader respiratory viral panel Hospital day 3, 06/15/2024. Started his prednisone yesterday for possible drug-induced pneumonitis. Notes that he feels improved. Not as weak. No longer hypoxic. Appetite is improving. Tolerating increased activities. Hospital day 4, 06/16/2024. Generally feels well. No worse than yesterday. Discusses his concern about clearing sputum from his oropharynx. Would like to restart the iron that he normally takes, ferrous sulfate 3 in 25 mg 3 times daily. Tolerating increased activities. Exam Narrative: Exam Narrative: I examine him in his hospital room. Appears comfortable. Articulate, talkative. Alert and oriented x4. Lungs with decreased rhonchi. No rales. No wheezing. Heart tones with regular rhythm. Independent with transfer, station, gait. Large mass right side of neck, not new Const: Vital Signs, click to edit/add: Vital Signs - 24 hr 06/15/24 19:00 06/15/24 22:06 06/15/24 22:06 Temperature 98.3 F Pulse Rate Pulse Rate [Pulse Oximeter] 84 74 Respiratory Rate 18 18 Blood Pressure Blood Pressure [Le ft Arm] 151/86 H Pulse Oximetry 93 93 Oxygen Delivery Me thod Room Air Oxygen Flow Rate 06/15/24 22:06 06/15/24 22:06 06/15/24 23:00 Temperature 97.9 F Pulse Rate 64 Pulse Rate [Pulse Oximeter] 74 Respiratory Rate 18 18 Blood Pressure Blood Pressure [Le ft Arm] 151/86 H Pulse Oximetry 93 93 Oxygen Delivery Me thod Room Air Room Air Oxygen Flow Rate 06/16/24 01:46 06/16/24 07:00 06/16/24 07:00 Temperature 97.8 F Pulse Rate Pulse Rate [Pulse Oximeter] 66 70 Respiratory Rate 18 20 Blood Pressure Blood Pressure [Le ft Arm] 133/82 Pulse Oximetry 95 94 Oxygen Delivery Me thod Nasal Cannula Oxygen Flow Rate 1 06/16/24 07:00 06/16/24 08:26 06/16/24 11:00 Temperature 98 F 98.2 F Pulse Rate Pulse Rate [Pulse Oximeter] 70 67 Respiratory Rate 20 20 16 Blood Pressure Blood Pressure [Le ft Arm] 137/78 141/82 H Pulse Oximetry 93 93 95 Oxygen Delivery Me thod Room Air Room Air Room Air Oxygen Flow Rate 06/16/24 14:53 06/16/24 15:15 06/16/24 15:45 Temperature 97.5 F L 97.8 F 98.1 F Pulse Rate 75 75 71 Pulse Rate [Pulse Oximeter] Respiratory Rate 18 18 18 Blood Pressure 160/85 H 162/86 H 167/92 H Blood Pressure [Le ft Arm] Pulse Oximetry 95 94 95 Oxygen Delivery Me thod Room Air Room Air Room Air Oxygen Flow Rate 06/16/24 16:15 06/16/24 16:44 Temperature 97.6 F 98.5 F Pulse Rate 71 70 Pulse Rate [Pulse Oximeter] Respiratory Rate 18 18 Blood Pressure 179/92 H 171/83 H Blood Pressure [Le ft Arm] Pulse Oximetry 94 93 Oxygen Delivery Me thod Room Air Room Air Oxygen Flow Rate Labs Labs: Laboratory Results - last 24 hr 06/14/24 06/16/24 07:53 05:56 WBC 24.45 H RBC 2.43 L Hgb 7.5 L* Hct 24.1 L MCV 99 MCH 31 MCHC 31 L RDW Coeff of Ekta 13.5 Plt Count 313 Neut % (Auto) 31.2 L Lymph % (Auto) 62.0 H [place] % (Auto) 6.5 Eos % (Auto) 0.0 Baso % (Auto) 0.1 Neut # (Auto) 7.60 H Lymph # (Auto) 15.20 H [place] # (Auto) 1.60 H Eos # (Auto) 0.00 Baso # (Auto) 0.00 Abs Immat Gran (auto) 0.00 Imm/Tot Granulo (auto) 0.2 Sodium 130 L Potassium 3.9 Chloride 100 Carbon Dioxide 26 Anion Gap 4 L BUN 28 Creatinine 0.7 Estimated Creat Clear 62.25 Estimated GFR 94 Glucose 109 Calcium 7.9 L Blood Type B Positive Antibody Screen NEGATIVE Crossmatch (AHG) See Detail
[2024-06-16] MEDS: RIVAROXABAN 10 MG TABLET 20 MG PO (19:28)
[2024-06-16] MEDS: FERROUS SULFATE 325 MG TABLET PO (19:28)
--- NOTE | 2024-06-16 19:36 | PC.NURSE ---
shift note: pt up indept in room. unit of PRB's initiated after pre med with 1000mg tylenol. unit of PrB's started @ 1500 with rate of 80cc/hr. Pt frequently checked throughout transfusion. 1615 pt stated he was wheezing. LS assessed to have wheezing througnout. BP and HR elevated from initial vss. blood transfusion stopped and Dr. Moya notified. Blood transfusion reaction protocol initiated. LS rechecked 15 mins after stop of transfusion; No wheezing but LLL crkls. Pt stated he no longer heard wheezing with his breathing.
[2024-06-16] MEDS: ALPRAZolam 0.25 MG TABLET PO (22:49)
[2024-06-17] VITALS (11 sets, daily range): BP systolic 158–188; BP diastolic 84–94; PULSE 62–78; RESP 16–20; TEMP 36.4–37.5; O2SAT 93–97
[2024-06-17] MEDS: IPRAT-ALBUT 0.5-2.5 MG/3 ML NEB 1 NEB IH ×4 (02:20→20:18)
[2024-06-17] MEDS: LEVOTHYROXINE 112 MCG TABLET PO (06:17)
[2024-06-17 06:44] LABS: Basophils Percent Auto 0.1 % (0.0-3.0); Hematocrit 26.2 % (37.0-53.0); Hemoglobin* 8.1 gm/dL (13.5-17.5); Immature Granulocytes Pct Auto 0.7 %; Lymphocytes Percent Auto 59.3 % (20-44); Mean Corpuscular HGB Conc 31 gm/dL (32-36); Mean Corpuscular Hemoglobin 31 pg (26-34); Mean Corpuscular Volume 100 fL (80-100); Monocytes Percent Auto 6.9 % (0.0-11.0); Platelet Count* 345 K/uL (140-440); RDW Coefficient of Variation % 13.4 % (11.5-15.5); Red Blood Count 2.62 m/uL (4.30-5.90)
[2024-06-17 06:58] LABS: Chloride* 100 mmol/L (96-114); Potassium* 3.9 mmol/L (3.6-5.1); Sodium* 130 mmol/L (135-149)
[2024-06-17 07:01] LABS: Anion Gap 4 mEq/L (7-15); Blood Urea Nitrogen* 22 mg/dL (7-30); Calcium* 8.3 mg/dL (8.4-10.6); Carbon Dioxide* 26 mmol/L (20-32); Creatinine* 0.7 mg/dL (0.5-1.5); Est. Creatinine Clearance* 62.86; Estimated Glomerular Filt Rate 94 ml/min; Glucose* 101 mg/dL (60-115)
--- NOTE | 2024-06-17 07:07 | PC.NURSE ---
(DOWNTIME [id number]) Pt alert, oriented and vitally stable. Pt on 1L o2 overnight to maintain sats above 90%. Pt up independently, tolerate well. Xanax given per pt request to help sleep, pt stated improvement. Pt in bed,?appears to be resting, call light within reach.?
[2024-06-17 07:08] LABS: Slide Review Reflex No; White Blood Count* 33.69 K/uL (4.50-11.00)
[2024-06-17] MEDS: predniSONE 20 MG TABLET 70 MG PO (08:43)
[2024-06-17] MEDS: FERROUS SULFATE 325 MG TABLET PO ×2 (08:43→18:23)
[2024-06-17] MEDS: METOPROLOL TARTRATE 25 MG TABLET PO ×2 (09:51→21:52)
[2024-06-17] MEDS: AMIODARONE 200 MG TABLET 100 MG PO (09:51)
[2024-06-17] MEDS: ATORVASTATIN 10 MG TABLET 20 MG PO (09:52)
[2024-06-17] MEDS: TAMSULOSIN HCL 0.4 MG CAPSULE PO (09:52)
[2024-06-17] MEDS: AZITHROMYCIN 250 MG TABLET 500 MG PO (09:52)
[2024-06-17] MEDS: lisinopriL 10 MG TABLET 15 MG PO ×2 (09:53→21:52)
[2024-06-17] MEDS: FAMOTIDINE 20 MG TABLET PO (09:54)
--- NOTE | 2024-06-17 15:04 | PM.IMPN1 ---
Progress Note: A&P Assessment and plan (1) Acute hypoxemic respiratory failure: Problem details: On admission he is febrile, tachypneic, tachycardic with hypoxia, 83% on room air. Chest x-ray shows right middle lobe infiltrate. Will treat as a community-acquired pneumonia. Initially in the hospital he was getting worse so antibiotic spectrum was broadened to vancomycin, a Zithromax in, imipenem. -as of the morning of 06/15/2024 he is no longer requiring oxygen supplementation to maintain resting room air oxygen saturations greater than 88%. Status: Acute (2) Community acquired pneumonia: Problem details: Initial clinical diagnosis is community-acquired pneumonia. Also concern for pneumonitis from immune checkpoint inhibitors, for which reason he was started on the prednisone 70 mg once daily yesterday. -nasal MRSA swab negative. Stop IV vancomycin. Continue with imipenem and azithromycin. Will read discuss with infectious disease specialists on 06/18/2024. Status: Acute (3) Hyponatremia: Problem details: Acute on chronic. Likely related to pneumonia. Continue to follow. Fluid restriction. Status: Acute (4) Bilirubinemia: Problem details: Indirect hyperbilirubinemia. Cause uncertain. Chronic problem. 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 -immunotherapy on hold until he has appropriate follow-up in the outpatient setting and it is determined that is safe for him to resume Status: Acute (7) Chronic anticoagulation: Problem details: xarelto for AFib Status: Acute (8) CLL (chronic lymphocytic leukemia): Problem details: TP53 (17p-~53%) and trisomy 12 (~52%), on acalabrutinib reduced dose 200 mg daily -immunotherapy on hold until such time it is determined in the outpatient setting that is safe for him to resume Status: Acute (9) Atrial fibrillation with rapid ventricular response: Problem details: Follows with Cardiology [facility], currently on amiodarone. Chronically in sinus rhythm with occasional episodes of atrial fibrillation Status: Acute (10) Hypothyroid: Problem details: TSH mildly elevated. 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 Status: Acute (12) Pneumonitis: Problem details: Possible pneumonitis due to immune therapy/checkpoint inhibitors. Start prednisone 1 milligram/kilos per day, 70 mg once daily. Status: Acute (13) Human metapneumovirus (hMPV) pneumonia: Problem details: -continue with treatment for possible community-acquired pneumonia, as well as the prednisone therapy for possible drug-induced pneumonitis. -continue with supportive efforts Status: Acute Plan 1. Reviewed impression with patient. Continue with current plan of care. 2. Will attempt to speak with infectious disease specialists and oncologist on 06/18/2024 3. Answered patient's questions to his satisfaction. 4. Patient agreeable with above stated plans and recommendations. Time Spent With Patient Total time spent: 40 minutes Subjective Date Seen: 06/17/24 Interval history: Chad Jensen is a 78 year old male presents the emergency department with daughter, 2nd time this week, was evaluated in the wee hours yesterday just over 24 hours ago. Diagnosed with pneumonia, given a dose of IV Rocephin and azithromycin. Did slat pickler his Ceftin and azithromycin that he was to continue taking and was scheduled to start it in a few hours. He was given a single dose of steroids and neb treatment and felt much better. He had no hypoxia upon presentation yesterday and his labs were overall stable. Chest x-ray it confirmed the right-sided pneumonia. Patient is very anxious regarding this pneumonia as his just 6 days ago of pneumonia as well. She declined very rapidly. It sounds as though she had some comorbid health issues. Patient himself is immunocompromised as well. Patient says that he had been doing well yesterday until he woke up at 5:00 a.m. feeling very short of breath. No chest pain, still has cough. Had been eating and drinking fairly well. No other interval changes from yesterday. Unfortunately, he was unable to slat pickler the inhaler as they were out of stock and he has plan to pick it up today. Past medical history notable for both squamous cell carcinoma and CLL, hyperlipidemia and hypertension as well as AFib, anticoagulated on Eliquis. Medications unchanged from yesterday. Nonsmoker with no prior history of COPD. ROS is notable for the respiratory symptoms as above only, otherwise denies times 12 systems. 06/13/2024: Additional history: Patient reports that he has just gradually gotten worse over the last day with increasing dyspnea. Not eating well. Profoundly weak. In the emergency department he reports that he did respond to the inhalers though he has no history of asthma or COPD. 06/14/2024: Patient is feeling worse this morning. He is having fevers, more short of breath worsening fatigue and malaise. We started on a blood transfusion is day and after 45 minutes his fever went up about 3? F. blood transfusion was stopped and transfusion reaction protocol initiated. This afternoon he was feeling better. Discussed with patient and family his healthcare status, tentative diagnoses and ongoing plan of care I reviewed plan of care with his oncologist, Dr. Birdie Hurtado. [phone]. We discussed the possibility that his immune therapy is causing pneumonitis and did start prednisone for that. She would like an update tomorrow on his clinical condition. We discussed possible transfer to [place] for more specialty care. Currently no beds available. Also no beds available in the [facility]. I reviewed his plan of care with infectious disease consult Dr. Yudith Youssef. She recommends ongoing broad-spectrum antibiotics pending results of cultures and testing. Stop vancomycin if MRSA swab is negative. Deescalate care as he clinically improves. Obtain broader respiratory viral panel Hospital day 3, 06/15/2024. Started his prednisone yesterday for possible drug-induced pneumonitis. Notes that he feels improved. Not as weak. No longer hypoxic. Appetite is improving. Tolerating increased activities. Hospital day 4, 06/16/2024. Generally feels well. No worse than yesterday. Discusses his concern about clearing sputum from his oropharynx. Would like to restart the iron that he normally takes, ferrous sulfate 325 mg 3 times daily. Tolerating increased activities. Hospital day 5, 06/17/2024. About 1 and half to 2 hours in the course of receiving his packed red blood cell transfusion yesterday he developed wheezing. The transfusion was stopped. Wheezing resolved. Had no hypoxia or tachypnea. Acknowledges anxiety before and during packed red blood cell transfusion, which resolved with discontinuation of the packed red blood cell transfusion. I reviewed laboratory studies obtained from the time of yesterday's episode including the blood in urine. No acute findings. Does have proteinuria which he had before any of these episodes. Cultures of the blood demonstrate no growth at this time. Exam Narrative: Exam Narrative: I examined patient in his hospital room. Appears comfortable no acute distress. Bibasilar rales, only minimal, with no wheezing or rhonchi. Heart tones with regular rhythm. Abdomen benign. No focal motor neurologic deficits. No icterus or jaundice. No obvious skin rashes, including conjunctiva and buccal mucosa. Const: Vital Signs, click to edit/add: Vital Signs - 24 hr 06/16/24 15:15 06/16/24 15:45 06/16/24 16:15 Temperature 97.8 F 98.1 F 97.6 F Pulse Rate 75 71 71 Pulse Rate [Pulse Oximeter] Respiratory Rate 18 18 18 Blood Pressure 162/86 H 167/92 H 179/92 H Blood Pressure [Le ft Arm] Pulse Oximetry 94 95 94 Oxygen Delivery Va thod Room Air Room Air Room Air 06/16/24 16:44 06/16/24 19:00 06/16/24 19:49 Temperature 98.5 F 97.7 F Pulse Rate 70 58 L Pulse Rate [Pulse Oximeter] 69 Respiratory Rate 18 16 Blood Pressure 171/83 H Blood Pressure [Le ft Arm] 153/97 H Pulse Oximetry 93 [facility] 06/16/24 23:00 06/16/24 23:00 06/16/24 23:00 Temperature 97.8 F Pulse Rate Pulse Rate [Pulse Oximeter] 61 Respiratory Rate 18 Blood Pressure Blood Pressure [Le ft Arm] 158/86 H Pulse Oximetry 91 90 [facility] 06/16/24 23:00 06/16/24 23:00 06/17/24 03:00 Temperature 97.6 F Pulse Rate 61 Pulse Rate [Pulse Oximeter] 61 62 Respiratory Rate 18 18 Blood Pressure Blood Pressure [Le ft Arm] 158/84 H Pulse Oximetry 95 Oxygen Delivery Va thod Room Air 06/17/24 07:00 06/17/24 07:00 06/17/24 08:51 Temperature 98.6 F Pulse Rate Pulse Rate [Pulse Oximeter] 64 Respiratory Rate 20 20 Blood Pressure Blood Pressure [Le ft Arm] 178/92 H Pulse Oximetry 95 95 95 Oxygen Delivery Va thod Room Air Room Air 06/17/24 11:00 Temperature 97.8 F Pulse Rate Pulse Rate [Pulse Oximeter] 78 Respiratory Rate 18 Blood Pressure Blood Pressure [Le ft Arm] 160/84 H Pulse Oximetry 95 Oxygen Delivery Me thod Room Air Labs Labs: Laboratory Results - last 24 hr 06/14/24 06/16/24 06/17/24 07:53 16:47 05:57 WBC 33.69 H* RBC 2.62 L Hgb 8.1 L Hct 26.2 L MCV 100 MCH 31 MCHC 31 L RDW Coeff of Ekta 13.4 Plt Count 345 Neut % (Auto) 33.0 L Lymph % (Auto) 59.3 H [place] % (Auto) 6.9 Eos % (Auto) 0.0 Baso % (Auto) 0.1 Neut # (Auto) 11.10 H Lymph # (Auto) 20.00 H [place] # (Auto) 2.30 H Eos # (Auto) 0.00 Baso # (Auto) 0.00 Abs Immat Gran (auto) 0.20 Imm/Tot Granulo (auto) 0.7 Sodium 130 L Potassium 3.9 Chloride 100 Carbon Dioxide 26 Anion Gap 4 L BUN 22 Creatinine 0.7 Estimated Creat Clear 62.86 Estimated GFR 94 Glucose 101 Calcium 8.3 L Crossmatch (AHG) See Detail Hemolysis Bld Bag Check NONE Pre-Trans CINDA Result NEGATIVE Pre-Trans Ur Hemoglobin NEGATIVE Post-Tx Serum Hemolysis NONE Post-Tx Rxn CINDA Result NEGATIVE
[2024-06-17] MEDS: ACETAMINOPHEN 325 MG TABLET 650 MG PO (16:36)
[2024-06-17] MEDS: RIVAROXABAN 10 MG TABLET 20 MG PO (18:23)
--- NOTE | 2024-06-17 18:52 | PC.NURSE ---
End of shift-- Pleasant and cooperative, alert and oriented patient. VSS and highest temp this shift 99.5F. LS diminished with expiratory wheezes noted throughout. He denied nausea and tolerated a regular diet without difficulty. Telemetry shows NSR with PVCs and PACs. He was up to the BR and chair independently and tolerated it well. Report to oncoming shift.
[2024-06-17] MEDS: SODIUM CHLORIDE 0.9 % (FLUSH) 10 ML SYRINGE 5 ML IVF (20:22)
[2024-06-17] MEDS: ALPRAZolam 0.25 MG TABLET PO (22:32)
[2024-06-18] MEDS: IPRAT-ALBUT 0.5-2.5 MG/3 ML NEB 1 NEB IH ×3 (01:45→14:10)
[2024-06-18 01:51] VITALS: BP 190/78; BP 198/84; PULSE 60; RESP 16; TEMP 36.7; O2SAT 96
[2024-06-18] MEDS: LEVOTHYROXINE 112 MCG TABLET PO (06:21)
[2024-06-18 06:43] LABS: Basophils Percent Auto 0.1 % (0.0-3.0); Eosinophils Percent Auto 0.1 % (0.0-7.0); Hematocrit 27.9 % (37.0-53.0); Hemoglobin* 8.6 gm/dL (13.5-17.5); Immature Granulocytes Pct Auto 2.7 %; Lymphocytes Percent Auto 62.9 % (20-44); Mean Corpuscular HGB Conc 31 gm/dL (32-36); Mean Corpuscular Hemoglobin 31 pg (26-34); Mean Corpuscular Volume 99 fL (80-100); Monocytes Percent Auto 6.4 % (0.0-11.0); Neutrophils Percent Auto 27.8 % (42.0-72.0); Platelet Count* 406 K/uL (140-440); RDW Coefficient of Variation % 13.4 % (11.5-15.5); Red Blood Count 2.81 m/uL (4.30-5.90)
[2024-06-18 06:57] LABS: Chloride* 98 mmol/L (96-114); Potassium* 3.8 mmol/L (3.6-5.1); Sodium* 130 mmol/L (135-149)
[2024-06-18 07:00] VITALS: BP 189/97; PULSE 61; PULSE 65; RESP 16; RESP 20; TEMP 37.1; O2SAT 95
[2024-06-18 07:00] LABS: Anion Gap 4 mEq/L (7-15); Blood Urea Nitrogen* 20 mg/dL (7-30); Carbon Dioxide* 28 mmol/L (20-32); Creatinine* 0.7 mg/dL (0.5-1.5); Est. Creatinine Clearance* 62.57; Estimated Glomerular Filt Rate 94 ml/min
[2024-06-18 07:01] LABS: Calcium* 8.8 mg/dL (8.4-10.6); Glucose* 90 mg/dL (60-115)
--- NOTE | 2024-06-18 07:39 | PC.NURSE ---
Pt is alert and oriented x3. Afebrile. Pt denies pain, chest pain, SOB, and N/V. Pt lung sounds are diminished with expiratory wheezing. Pt is up SBA with walker and gait belt, voiding, and tolerating a regular diet and ensure supplements. Pt had 1 formed BM overnight. Pt had some high bp readings overnight, pt denied headache, chest pain, and SOB, updated on coming RN and MD [place].
[2024-06-18] MEDS: METOPROLOL TARTRATE 25 MG TABLET PO (09:02)
[2024-06-18] MEDS: AMIODARONE 200 MG TABLET 100 MG PO (09:03)
[2024-06-18] MEDS: FERROUS SULFATE 325 MG TABLET PO (09:03)
[2024-06-18] MEDS: TAMSULOSIN HCL 0.4 MG CAPSULE PO (09:03)
[2024-06-18] MEDS: FAMOTIDINE 20 MG TABLET PO (09:03)
[2024-06-18] MEDS: lisinopriL 10 MG TABLET 15 MG PO (09:03)
[2024-06-18] MEDS: ATORVASTATIN 10 MG TABLET 20 MG PO (09:04)
[2024-06-18] MEDS: AZITHROMYCIN 250 MG TABLET 500 MG PO (09:04)
[2024-06-18] MEDS: predniSONE 20 MG TABLET 70 MG PO (10:47)
[2024-06-18] MEDS: SODIUM CHLORIDE 0.9 % (FLUSH) 10 ML SYRINGE 5 ML IVF (10:48)
[2024-06-18] MEDS: AMLODIPINE 5 MG TABLET PO (10:48)
[2024-06-18 11:37] LABS: Slide Review Reflex Yes
[2024-06-18 13:00] VITALS: BP 152/87; PULSE 63; RESP 20; TEMP 37.1; O2SAT 95
[2024-06-18 13:18] LABS: Slide Review Acceptable Review (Acceptable)
[2024-06-18 15:00] VITALS: BP 181/100; PULSE 72; RESP 18; RESP 20; TEMP 36.7; O2SAT 95
--- NOTE | 2024-06-18 17:21 | PC.NURSE ---
DC: Pt alert, oriented and vitally stable, though hypertensive. Pt states anxiety with the DC, staff talked with pt and pt stated improvement. DC information given to pt and family member, topics including medications, follow up and symptoms worsening. Pt DC home with family at 1656.
--- NOTE | 2024-07-06 15:02 | P.DS_ITS ---
DS: Providers Provider Date Seen: 06/18/24 Date of admission: 06/13/24 Primary care physician: GLENNA THOMAS DO Admitting Clinician: Dr. Benjie Woodard Attending Physician on discharge: Bandar Beavers MD Date of Discharge: 06/18/24 DS: Diagnosis Discharge Diagnosis (1) Acute hypoxemic respiratory failure: Status: Acute Problem details: On admission he is febrile, tachypneic, tachycardic with hypoxia, 83% on room air. Chest x-ray shows right middle lobe infiltrate. Will treat as a community-acquired pneumonia. Initially in the hospital he was getting worse so antibiotic spectrum was broadened to vancomycin, azythromycin, imipenem. -as of the morning of 06/15/2024 he is no longer requiring oxygen supplementation to maintain resting room air oxygen saturations greater than 88%. (2) Community acquired pneumonia: Status: Acute Problem details: Initial clinical diagnosis is community-acquired pneumonia. Also concern for pneumonitis from immune checkpoint inhibitors, for which reason he was started on the prednisone 70 mg once daily yesterday. -nasal MRSA swab negative. Stop IV vancomycin. Continue with imipenem and azithromycin. Rediscussed with infectious disease specialists on 06/18/2024 who concurred with stopping all antibiotics upon discharge. (3) Hyponatremia: Status: Acute Problem details: Acute on chronic. Likely related to pneumonia, chronic medications. Continue to follow. Fluid restriction. -sodium 126 ->129 06/30 added sodium tablets tidwm (4) Bilirubinemia: Status: Acute Problem details: Indirect hyperbilirubinemia. Cause uncertain. Chronic problem. 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 -immunotherapy on hold until he has appropriate follow-up in the outpatient setting and it is determined that is safe for him to resume (7) Chronic anticoagulation: Status: Acute Problem details: xarelto for AFib (8) CLL (chronic lymphocytic leukemia): Status: Acute Problem details: TP53 (17p-~53%) and trisomy 12 (~52%), on acalabrutinib reduced dose 200 mg daily -immunotherapy on hold until such time it is determined in the outpatient setting that is safe for him to resume (9) Atrial fibrillation with rapid ventricular response: Status: Acute Problem details: -continue amiodarone, metoprolol - blood pressure/HR appropriate currently -chronic anticoagulation on rivaroxaban Follows with [facility] cardiology can follow while hospitalized (10) Hypothyroid: Status: Acute Problem details: -continue levothyroxine (11) Immunocompromised: Status: Acute Problem details: Due to CLL an immune therapy (12) Pneumonitis: Status: Acute Problem details: -suspected pneumonitis due to immune therapy/checkpoint inhibitors -started prednisone 1 mg/kg, 70 mg, once daily with additional dosing per heme/onc (13) Human metapneumovirus (hMPV) pneumonia: Status: Acute Problem details: -diagnosed 13 June 2024 -continue prednisone therapy for possible drug-induced pneumonitis -continue with supportive efforts (14) Anemia: Status: Acute Problem details: -anemia of chronic disease, chronic meds, chemotherapy -hemoglobin 8.3 06/12/24 and 8.6 06/18/24 -during course of hospitalization the patient had 2 attempted transfusions. Both of these were not fully administered. Developed fever with 1st 1 with a temperature rise of about 2? F. During the 2nd 1 patient developed wheezing. All post transfusion testing was negative. -will need ongoing followup and interventions per his refined syrup operator. DS: Summary Hospital Course Hospital Course: Chad Jensen is a 78 year old male presents the emergency department with daughter, 2nd time this week, was evaluated in the wee hours yesterday just over 24 hours ago. Diagnosed with pneumonia, given a dose of IV Rocephin and azithromycin. Did picker/puller his Ceftin and azithromycin that he was to continue taking and was scheduled to start it in a few hours. He was given a single dose of steroids and neb treatment and felt much better. He had no hypoxia upon presentation yesterday and his labs were overall stable. Chest x-ray it confirmed the right-sided pneumonia. Patient is very anxious regarding this pneumonia as his just 6 days ago of pneumonia as well. She declined very rapidly. It sounds as though she had some comorbid health issues. Patient himself is immunocompromised as well. Patient says that he had been doing well yesterday until he woke up at 5:00 a.m. feeling very short of breath. No chest pain, still has cough. Had been eating and drinking fairly well. No other interval changes from yesterday. Unfortunately, he was unable to picker/puller the inhaler as they were out of stock and he has plan to pick it up today. Past medical history notable for both squamous cell carcinoma and CLL, hyperlipidemia and hypertension as well as AFib, anticoagulated on Eliquis. Medications unchanged from yesterday. Nonsmoker with no prior history of COPD. ROS is notable for the respiratory symptoms as above only, otherwise denies times 12 systems. 06/13/2024: Additional history: Patient reports that he has just gradually gotten worse over the last day with increasing dyspnea. Not eating well. Profoundly weak. In the emergency department he reports that he did respond to the inhalers though he has no history of asthma or COPD. 06/14/2024: Patient is feeling worse this morning. He is having fevers, more short of breath worsening fatigue and malaise. We started on a blood transfusion is day and after 45 minutes his fever went up about 3? F. blood transfusion was stopped and transfusion reaction protocol initiated. This afternoon he was feeling better. Discussed with patient and family his healthcare status, tentative diagnoses and ongoing plan of care I reviewed plan of care with his oncologist, Dr. Birdie Hurtado. [phone]. We discussed the possibility that his immune therapy is causing pneumonitis and did start prednisone for that. She would like an update tomorrow on his clinical condition. We discussed possible transfer to [place] for more specialty care. Currently no beds available. Also no beds available in the [facility]. I reviewed his plan of care with infectious disease consult Dr. Yudith Youssef. She recommends ongoing broad-spectrum antibiotics pending results of cultures and testing. Stop vancomycin if MRSA swab is negative. Deescalate care as he clinically improves. Obtain broader respiratory viral panel Hospital day 3, 06/15/2024. Started his prednisone yesterday for possible drug-induced pneumonitis. Notes that he feels improved. Not as weak. No longer hypoxic. Appetite is improving. Tolerating increased activities. Hospital day 4, 06/16/2024. Generally feels well. No worse than yesterday. Discusses his concern about clearing sputum from his oropharynx. Would like to restart the iron that he normally takes, ferrous sulfate 325 mg 3 times daily. Tolerating increased activities. Hospital day 5, 06/17/2024. About 1 and half to 2 hours in the course of receiving his packed red blood cell transfusion yesterday he developed wheezing. The transfusion was stopped. Wheezing resolved. Had no hypoxia or tachypnea. Acknowledges anxiety before and during packed red blood cell transfusion, which resolved with discontinuation of the packed red blood cell transfusion. I reviewed laboratory studies obtained from the time of yesterday's episode including the blood in urine. No acute findings. Does have proteinuria which he had before any of these episodes. Cultures of the blood demonstrate no growth at this time. Patient condition normalized in the discharge. I read discussed his case with our infectious disease specialist who concurs that given his progress we may discontinue all antibiotics. He is ready for discharge. Review plan with him. He is agreeable. Status at Discharge Functional status at discharge: independent ambulation Overall status at discharge: patient is progressing back to baseline Time Spent with Patient Time attestation: Total time spent providing and/or coordinating discharge services: Time spent: Greater than 30 minutes Exam Narrative: Exam Narrative: I examined patient in his hospital room. Appears comfortable no acute distress. Longstanding neck mass unchanged. Bibasilar rales, only minimal, with no wheezing or rhonchi. Heart tones with regular rhythm. Abdomen benign. No focal motor neurologic deficits. Independent in transfer, station, gait. No icterus or jaundice. No obvious skin rashes, including conjunctiva and buccal mucosa. DS: Data Data Completed and Pending Completed studies during hospitalization: Procedures Introduction of Other Gas into Respiratory Tract, Via Natural or Artificial Opening (06/13/24) Transfusion of Nonautologous Red Blood Cells into Peripheral Vein, Percutaneous Approach (06/13/24) Imaging Chest x-ray: Attestation: I have reviewed the pertinent imaging results. Radiologist's impression: 06/12/2024: Right lung patchy opacities, suspicious for pneumonia. 06/13/2024: Redemonstration of airspace opacities in the right middle lobe and anterior segment of the right upper lobe without significant interval change compared to 06/12/2024 at 0338 hours consistent with pneumonia. 06/14/2024: Extensive increasing interstitial and airspace opacities seen throughout the bilateral hemithoraces. CT scan - chest: Radiologist's impression: 06/14/2024: FINDINGS: Airway: Circumferential smooth bronchial wall thickening. Lungs: Multifocal tree-in-bud nodules. Multifocal hazy ground-glass opacities. Multifocal small nodular opacities. Small area of consolidation in the posteromedial right lower lobe. No emphysema. No pulmonary edema. Pleura: Trace bilateral pleural effusions are larger than the comparison exam. No pneumothorax. Lymph nodes: Lower cervical adenopathy not fully included within the field of view but appears about the same as the prior chest CT. Multi station mediastinal adenopathy. Right pretracheal lymph node measures 3.7 cm, previously 3.6 cm. Subcarinal lymph node measures 3.2 cm, previously 3.4 cm. Left greater than right axillary and subpectoral adenopathy. No new adenopathy. No substantially worsened adenopathy.. Mediastinum: No pneumomediastinum. Heart and great vessels: Trace pericardial effusion is similar to prior. Normal cardiac chamber size. Heavy calcified coronary and a few scattered other atherosclerotic plaques. No aortic aneurysm. Normal caliber main pulmonary artery. No central pulmonary embolism. Chest wall: Mild left axillary and lateral chest wall edema. Subcutaneous cyst in the posterior lower neck. Similar to the prior PET-CT with no PET avidity, presumably a benign subdermal cyst. Upper abdomen: Confluent retroperitoneal and periportal adenopathy is about the same. Spleen size is within normal limits. Bones: No fractures. Thoracic DISH. No focal bone lesions. IMPRESSION: 1. Pattern of lung opacities is most consistent with diffuse infectious distal airways disease and multifocal bronchopneumonia. Overall the appearance is different but slightly worse than 11/10/2023. Recommend attention on follow-up to exclude malignancy. 2. Small bilateral pleural effusions are slightly larger. 3. Multi station lower cervical, thoracic, and upper abdominal adenopathy is about the same. 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 General precautions for protecting herself, including hand washing, social distancing, and use of facial mask 2. Follow up with your oncologist, Dr. Hurtado, this as planned 3. Return to clinic or hospital sooner if needed 4. Hold immune modulating medications until follow-up with Dr. Hurtado 5. Follow-up with your primary healthcare associate regarding your hypertension Activity Level: Activity as Tolerated Discharge Diet: Regular Prescriptions: No Action Slow-Mag 71.5 mg tablet,delayed release (DR/EC) 71.5 mg PO QDAY tamsulosin [Flomax] 0.4 mg capsule 0.4 mg PO DAILY amiodarone 100 mg tablet 100 mg PO DAILY metoprolol tartrate 25 mg tablet 25 mg PO BID calcium carbonate [Tums] 300 mg (750 mg) tablet,chewable 300 mg PO BID PRN ferrous sulfate 324 mg (65 mg iron) tablet,delayed release (DR/EC) 324 mg PO DAILY alprazolam 0.25 mg tablet 0.25 mg PO BID PRN famotidine [Pepcid] 20 mg tablet 20 mg PO DAILY Xarelto 20 mg tablet 20 mg PO Q24H lisinopril 10 mg tablet 15 mg PO BID atorvastatin 20 mg tablet 20 mg PO DAILY furosemide 20 mg tablet 20 mg PO DAILY PRN Rx Instructions: as directed by PA in word processing operator (Benigno) prednisone 20 mg Tablet 70 mg PO DAILYWM 7 Days Qty: 50 1RF Rx Instructions: Dose to be decreased by your refined syrup operator/oncologist over time amlodipine 5 mg Tablet 5 mg PO DAILY 30 Days Qty: 30 0RF Calquence (acalabrutinib mal) 100 mg tablet 100 mg PO BID levothyroxine [Synthroid] 112 mcg tablet 112 mcg PO DAILY Rx Instructions: Take once daily in the morning at least an hour before food or other medications. nystatin 100,000 unit/mL suspension 5 ml PO Q6H Rx Instructions: x 14 days total Follow Up/Referrals: GLENNA THOMAS DO [Primary Care Provider] - Stand Alone Forms: MyHealth Info Instructions
== END 2024-06-18 15:56 | disposition home or self-care (01) | DRG 193 ==
LOC: ED 07:46 → MEDSURG 07:57
PROVIDERS: Student in an Organized Health Care Education/Training Program; Admitting Provider Family Medicine; Emergency Provider Family Medicine; PCP Student in an Organized Health Care Education/Training Program; Visit Provider Family Medicine
DX: J12.3 Human metapneumovirus pneumonia (principal); J96.01 Acute respiratory failure with hypoxia; C91.10 Chronic lymphocytic leukemia of B-cell type not having achieved remission; D84.821 Immunodeficiency due to drugs; N13.8 Other obstructive and reflux uropathy; E87.1 Hypo-osmolality and hyponatremia; J70.4 Drug-induced interstitial lung disorders, unspecified; T45.1X5A Adverse effect of antineoplastic and immunosuppressive drugs, initial encounter; R50.84 Febrile nonhemolytic transfusion reaction; T80.89XA Other complications following infusion, transfusion and therapeutic injection, initial encounter; Z79.52 Long term (current) use of systemic steroids; D64.9 Anemia, unspecified; I10 Essential (primary) hypertension; Z79.01 Long term (current) use of anticoagulants; N40.1 Benign prostatic hyperplasia with lower urinary tract symptoms; I48.0 Paroxysmal atrial fibrillation; Z63.4 Disappearance and death of family member; I44.0 Atrioventricular block, first degree; C07 Malignant neoplasm of parotid gland; E80.6 Other disorders of bilirubin metabolism; F41.9 Anxiety disorder, unspecified; I25.10 Atherosclerotic heart disease of native coronary artery without angina pectoris; E03.9 Hypothyroidism, unspecified; E78.5 Hyperlipidemia, unspecified
CPT/HCPCS: 36415; 36430; 71045; 71046; 71260; 80048; 80053; 80076; 81001; 81003; 82803; 83010; 83605; 83615; 83735; 83880; 84145; 84439; 84443; 84484; 85025; 86140; 86850; 86900; 86901; 86922; 87040; 87070; 87081; 87086; 87449; 87486; 87581; 87631; 87633; 87899; 93005; 94640; 94761; 96365; 96366; 96375; 99284; 99285; A9270; J0456; J0696; J0743; J1940; J2919; J3370; J7030; J7050; J7512; P9016; Q9967

== ENCOUNTER 2024-06-21 11:57 | Outpatient (CLI) | payer MEDICARE, BC, SELFPAY ==
--- NOTE | 2024-06-21 13:00 | CRLHL7_ITS ---
For Patients: As a result of the Century Cures Act, medical imaging exams and procedure reports are released immediately into your electronic medical record. You may view this report before your referring provider. If you have questions, please contact your health care provider. INDICATION: Re-evaluate immunotherapy related pneumonitis and pneumonia TECHNIQUE: CT chest with 75 mL Isovue 370 Multiplanar axial, coronal, and sagittal reformats are included. MIP images to improve detection of pulmonary nodules are included. COMPARISON: CT 06/14/2024 FINDINGS: Lungs and pleura: Small effusions without change. Significant improvement with diffuse mild ground-glass opacities in basilar mild atelectasis. Previous diffuse nodular opacities have significantly improved tree-in-bud opacities predominantly in the lower lobes right greater than left. However this appears significantly improved from the prior study. Heart and vasculature: Heart size is normal. Aorta measuring 3.8 centimeters ectasia of the ascending thoracic no pulmonary emboli. Lymph nodes/mediastinum: Calcified mediastinal and hilar nodes. Cervical adenopathy probably not significantly changed. Axillary adenopathy not significantly changed. Mild improved mediastinal and hilar adenopathy. Subcarinal node measures 2.3 by centimeters by short axis previously measuring 3.2 centimeters . Right paratracheal lymph node measuring 1.2 centimeter by short axis when remeasured at similar location on prior study measured 1.5 centimeters. Chest wall: No masses. Upper abdomen: Confluent upper abdominal adenopathy probably normal significantly changed partially seen splenic granulomas spleen is nonenlarged nonobstructing small left renal calculus Bones: Unremarkable for age. IMPRESSION: 1. Significant improvement in previous nodular diffuse opacities within the lungs. There is diffuse mild faint ground-glass opacities in some minimal residual tree-in-bud opacities predominantly in the lower lobes right greater than left. Small effusions are unchanged. 2. Axillary adenopathy without significant improvement. Mild improvement in mediastinal hilar adenopathy. Confluent upper abdominal adenopathy probably not significantly changed only partially seen. Please note that all CT scans at this facility use dose modulation, iterative reconstruction, and/or weight-based dosing when appropriate to reduce radiation dose to as low as reasonably achievable. Dictated by Aimee Lombardo MD @ 06/22/2024 11:58:42 AM (Electronically Signed)
== END 2024-06-21 11:58 | disposition home or self-care (01) ==
LOC: CT 11:58
PROVIDERS: PCP Student in an Organized Health Care Education/Training Program; Visit Provider Internal Medicine Hematology & Oncology
DX: J18.9 Pneumonia, unspecified organism (principal); J98.4 Other disorders of lung
CPT/HCPCS: 36415; 71260; 80053; 84443; 85025; G0463; Q9967

== ENCOUNTER 2024-06-28 04:52 | Inpatient (IN) | payer MEDICARE, BC, SELFPAY ==
[2024-06-28] VITALS (15 sets, daily range): BP systolic 130–170; BP diastolic 68–76; PULSE 72–97; RESP 16–20; TEMP 36.4–38.4; O2SAT 90–96; BMI 22.2; BMI 22.8
--- NOTE | 2024-06-28 05:25 | CRLHL7_ITS ---
For Patients: As a result of the Century Cures Act, medical imaging exams and procedure reports are released immediately into your electronic medical record. You may view this report before your referring provider. If you have questions, please contact your health care provider. INDICATION: Follow-up pneumonitis. COMPARISON: 06/21/2024, 06/14/2024 TECHNIQUE: CT chest with contrast. Multiplanar axial, coronal, and sagittal reformats are included. MIP images to improve detection of pulmonary nodules are included. Intravenous contrast: 75 mL Isovue 370 FINDINGS: Airway: Normal tracheobronchial tree. Lungs: New multifocal consolidations. The largest is in the left upper lobe and measures 8 centimeters. There are several other nodular consolidations elsewhere. No necrosis or cavitation. Immediately adjacent to the consolidations there is ground-glass opacification and fine interlobular septal thickening. This is on a background of diffuse ground-glass opacification with scattered areas of mild smooth interlobular septal thickening. Appearance of the lungs has worsened since the comparison exam. Pleura: Trace bilateral pleural effusions are smaller than before. No pneumothorax. Lymph nodes: Left axillary lymphadenopathy. The largest left axillary lymph node measures 2.1 x 1.2 cm on series 2, image 30. Multi station mediastinal adenopathy. The largest left anterior mediastinal/prevascular lymph node measures 2.3 x 2.0 centimeters on series 2, image 24. the right paratracheal lymph node measures 2.7 x 1.7 cm on series 2, image 39. No definite change since prior accounting for slight differences in positioning. Large subcarinal lymph node is unchanged. Bilateral hilar lymph nodes are enlarged and unchanged. Right axillary lymph nodes are enlarged and unchanged. No cardiophrenic or retrocrural adenopathy. Mediastinum: No pneumomediastinum. Heart and great vessels: No pericardial effusion. Normal cardiac chamber size. Scattered atherosclerotic plaques. No aortic aneurysm. Normal caliber main pulmonary artery. Mitral valve clip. Chest wall: Mild chest wall edema. Small subdermal cyst just to the left of midline in the upper back/lower neck. Upper abdomen: [place] periportal and retroperitoneal adenopathy. Mild bilateral urinary tract dilatation. Bones: No fractures. No focal bone lesions. IMPRESSION: 1. New multifocal consolidative opacities in both lungs. Appearance of the lungs has worsened since the previous exam. Leading differential is infection. Noninfectious interstitial pneumonias and hemorrhage could also be considered. Malignancy less likely given rapid development. 2. No substantial change in multi station thoracic and abdominal adenopathy. Please note that all CT scans at this facility use dose modulation, iterative reconstruction, and/or weight-based dosing when appropriate to reduce radiation dose to as low as reasonably achievable. Dictated by Frances Dorman MD @ 06/28/2024 6:16:36 AM (Electronically Signed)
[2024-06-28] MEDS: IPRAT-ALBUT 0.5-2.5 MG/3 ML NEB 1 NEB IH (05:33)
[2024-06-28 05:55] LABS: Basophils Percent Auto 0.1 % (0.0-3.0); Hematocrit 29.9 % (37.0-53.0); Hemoglobin* 9.1 gm/dL (13.5-17.5); Immature Granulocytes Pct Auto 0.5 %; Lymphocytes Percent Auto 73.5 % (20-44); Mean Corpuscular HGB Conc 30 gm/dL (32-36); Mean Corpuscular Hemoglobin 30 pg (26-34); Mean Corpuscular Volume 100 fL (80-100); Monocytes Percent Auto 1.4 % (0.0-11.0); Neutrophils Percent Auto 24.5 % (42.0-72.0); Platelet Count* 219 K/uL (140-440)
[2024-06-28 05:56] LABS: Slide Review Reflex No; White Blood Count* 58.63 K/uL (4.50-11.00)
[2024-06-28 05:58] LABS: Chloride* 96 mmol/L (96-114); Potassium* 4.4 mmol/L (3.6-5.1); Sodium* 126 mmol/L (135-149)
[2024-06-28 06:01] LABS: Anion Gap 6 mEq/L (7-15); Blood Urea Nitrogen* 31 mg/dL (7-30); Carbon Dioxide* 24 mmol/L (20-32); Creatinine* 0.9 mg/dL (0.5-1.5); Est. Creatinine Clearance* 60.54; Estimated Glomerular Filt Rate 87 ml/min
[2024-06-28 06:02] LABS: Calcium* 8.1 mg/dL (8.4-10.6); Glucose* 99 mg/dL (60-115)
[2024-06-28 06:13] LABS: NT Pro B Type NatriureticPept* 1280 pg/mL
--- NOTE | 2024-06-28 07:49 | ED.GENADULT ---
HPI - General Adult General Date Seen: 06/28/24 Chief complaint: Shortness of Breath/Dyspnea Stated complaint: short of breath Time Seen by Provider: 06/28/24 05:10 Source: patient Mode of arrival: ambulatory Limitations: no limitations History of Present Illness HPI narrative: Patient is a 78-year-old was recently admitted with respiratory failure felt to be related to pneumonitis due to Keytruda. He was initially treated with imipenem and azithromycin as well as high-dose steroids. He was discharged without any antibiotics as this was felt to be inflammatory rather than infectious. He did well for about five days after discharge but over the last two days has felt more gurgling in his chest. He has coughed up some small volume hemoptysis. He saw his oncologist and had labs and a CT of his chest repeated and at that point his labs were stable and his CT look better. His prednisone dose has been slowly tapered and he is currently on 50 mg daily. 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 He has not had fevers. His recently of a and he is currently living alone and feels that he may not be able to care from self at home. Prior to his last admission he had been seen, sent home from the ER, and bounced back in critical condition the very next day. I would certainly to bed and woke count as I evaluated him tonight. He denies chest pains. He has been eating and drinking okay. Related Data Home Medications ?Medication ?Instructions ?Recorded ?Confirmed rivaroxaban 20 mg tablet (Xarelto) 20 mg PO Q24H 12/07/21 06/28/24 alprazolam 0.25 mg tablet 0.25 mg PO BID PRN 12/16/21 06/28/24 famotidine 20 mg tablet (Pepcid) 20 mg PO DAILY 12/16/21 06/28/24 magnesium chloride 71.5 mg 71.5 mg PO QDAY 02/15/22 06/28/24 (magnesium chloride) tablet,delayed release (Slow-Mag) tamsulosin 0.4 mg capsule (Flomax) 0.4 mg PO DAILY 02/15/22 06/28/24 amiodarone 100 mg tablet 100 mg PO DAILY 11/11/22 06/28/24 metoprolol tartrate 25 mg tablet 25 mg PO BID 11/11/22 06/28/24 lisinopril 10 mg tablet 15 mg PO BID 03/03/23 06/28/24 calcium carbonate (Tums) 300 mg PO BID PRN 03/31/23 06/28/24 ferrous sulfate 324 mg (65 mg 324 mg PO DAILY 03/31/23 06/28/24 iron) tablet,delayed release atorvastatin 20 mg tablet 20 mg PO DAILY 11/17/23 06/28/24 furosemide 20 mg tablet 20 mg PO DAILY PRN 01/25/24 06/28/24 acalabrutinib maleate 100 mg 100 mg PO BID 06/21/24 06/28/24 tablet (Calquence (acalabrutinib maleate)) levothyroxine 112 mcg tablet 112 mcg PO DAILY 06/28/24 06/28/24 (Synthroid) nystatin 100,000 unit/mL oral 5 ml PO Q6H 06/28/24 06/28/24 suspension Previous Rx's ?Medication ?Instructions ?Recorded amlodipine 5 mg tablet 5 mg PO DAILY 30 days #30 tabs 06/18/24 prednisone 20 mg tablet 70 mg (3.5 x 20 mg) PO DAILYWM 7 06/18/24 days #50 tabs Allergies Allergy/AdvReac Type Severity Reaction Status Date / Time ibrutinib (From Imbruvica) Allergy Intermediate Rash Verified 06/21/24 12:40 Penicillins Allergy Verified 06/21/24 12:40 Review of Systems Narrative: Significant for generalized weakness, chronic cough and shortness of breath. Frequent loose stools. Review of systems in all other areas is noted to be negative. 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 - Malignant neoplasm of major salivary gland, unspecified (ICD-10) Anemia ?D64.9 - Anemia, unspecified (ICD-10) GERD (gastroesophageal reflux disease) ?K21.9 - Gastro-esophageal reflux disease without esophagitis (ICD-10) CAD (coronary artery disease) ?I25.10 - Atherosclerotic heart disease of [place] coronary artery without angina pectoris (ICD-10) Pulmonary nodules ?R91.8 - Other nonspecific abnormal finding of lung field (ICD-10) History of cardioversion ?Z98.890 - Other specified postprocedural states (ICD-10) CLL (chronic lymphocytic leukemia) (~08/2018) ?C91.10 - Chronic lymphocytic leukemia of B-cell type not having achieved remission (ICD-10) Malignant melanoma ?C43.9 - Malignant melanoma of skin, unspecified (ICD-10) Anxiety ?F41.9 - Anxiety disorder, unspecified (ICD-10) BPH with obstruction/lower urinary tract symptoms ?N40.1 - Benign prostatic hyperplasia with lower urinary tract symptoms (ICD-10) ?N13.8 - Other obstructive and reflux uropathy (ICD-10) Prostate cancer ?C61 - Malignant neoplasm of prostate (ICD-10) Hypertension ?I10 - Essential (primary) hypertension (ICD-10) Paroxysmal atrial fibrillation ?I48.0 - Paroxysmal atrial fibrillation (ICD-10) Surgical History S/P mitral valve clip implantation (~2019) ?Z98.890 - Other specified postprocedural states (ICD-10) ?Z95.818 - Presence of other cardiac implants and grafts (ICD-10) History of tonsillectomy ?Z90.89 - Acquired absence of other organs (ICD-10) History of melanoma excision ?Z98.890 - Other specified postprocedural states (ICD-10) ?Z85.820 - Personal history of malignant melanoma of skin (ICD-10) History of cataract surgery ?Z98.49 - Cataract extraction status, unspecified eye (ICD-10) Hx of mitral valve repair ?Z98.890 - Other specified postprocedural states (ICD-10) Family History Other CHF (congestive heart failure) Hodgkins disease Social History Narrative: he is and here with his . He gets oncology care through [facility]. He gets primary care through [facility], Dr. Nikki Reilly. He does not smoke. He drinks 1 glass of red wine daily. Full code. Daughters are designated healthcare power of attorney general What is your current living situation?: I presently have a place to live Problems where you live: no known problems Problems where you live details: recently , they were each other's caregivers & now daughters have been staying with him periodically In the past 12 months, utilities in danger of being shut off: no In past 12 months, lack of transportation kept you from medical appts, meetings, work, or getting things needed for daily living: no In the past 12 mos, have been you worried that your food would run out before you had money to buy more?: never true In the past 12 mos, the food you bought just didn't last and you didn't have money to buy more?: never true Highest level of school completed/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, [employer], 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, 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) Smoking Status: Never smoker Do you use any of these nicotine containing products: None Second hand tobacco smoke exposure: No How often do you have a drink containing alcohol: never How often do you have six or more drinks on one occasion: Never AUDIT-C Alcohol total score: 0 Non-prescribed substance use: denies use Caffeine: No How often does anyone, including family, friends and others, physically hurt you: never How often does anyone, including family, friends and others, insult or talk down to you: never How often does anyone, including family, friends and others, threaten you with harm: never How often does anyone, including family, friends and others, scream or curse at you: never service: No Exam Narrative: Exam Narrative: Vitals noted. He is awake alert and cognitively sharp. HEENT: Conjunctiva clear. Tympanic membranes are pearly white bilaterally. Posterior pharynx is clear without erythema or exudate. Neck is supple without adenopathy, thyromegaly, carotid bruit. Lungs: Lungs have lose rhonchi and some expiratory wheezes. Breath sounds are diminished. Heart: Regular rate and rhythm without murmur. Abdomen: Soft and nontender. No guarding, rigidity, rebound. Bowel sounds are normal. No palpable masses. Extremities: No cyanosis or edema. Good distal pulses. Skin: Multiple scattered bruises. Neurologic: Awake, alert, fully oriented. Neurologic exam is nonfocal. Const: Vital Signs, click to edit/add: Vital Signs - 24 hr 06/28/24 04:56 06/28/24 08:06 06/28/24 11:38 Temperature 97.6 F 100.0 F H 99.4 F Pulse Rate [Left P ulse Oximeter] 92 84 Pulse Rate [Pulse Oximeter] 90 Respiratory Rate 16 18 20 Blood Pressure [Le ft Arm] 135/68 Blood Pressure [Ri ght Upper Arm] 170/76 H 130/71 Pulse Oximetry 96 94 94 Oxygen Delivery Me thod Room Air Room Air Room Air 06/28/24 12:24 Temperature Pulse Rate [Left P ulse Oximeter] Pulse Rate [Pulse Oximeter] Respiratory Rate 18 Blood Pressure [Le ft Arm] Blood Pressure [Ri ght Upper Arm] Pulse Oximetry 94 Oxygen Delivery Me thod Room Air Course Course ED Course: Patient seen and examined. He is not hypoxic. I did repeat a CBC, BMP, BNP and they are all very [place] [address], his hemoglobin is 9.1, his sodium is 126, his creatinine is 0.9. His proBNP had been over 5000 during his last admission and is only [address] of his chest: 1. New multifocal consolidative opacities in both lungs. Appearance of the lungs has worsened since the previous exam. Leading differential is infection. Noninfectious interstitial pneumonias and hemorrhage could also be considered. Malignancy less likely given rapid development. Reevaluation(s) Reevaluation #1: Had a good discussion with Sherie Negron who kindly agrees to admit him to the hospital for further cares. He is given azithromycin 500 mg IV and imipenem 500 mg IV. Vital Signs Vital signs: Initial Vital Signs Respiratory Effort Normal 06/28/24 04:54 Respiratory Depth Normal 06/28/24 04:54 Respiratory Pattern Normal 06/28/24 04:54 Vital Signs Temperature 97.6 F 06/28/24 04:56 Pulse Rate 92 06/28/24 04:56 Respiratory Rate 16 06/28/24 04:56 Blood Pressure 170/76 H 06/28/24 04:56 Pulse Oximetry 96 06/28/24 04:56 Oxygen Delivery Method Room Air 06/28/24 04:56 Temperature 98.8 F 06/28/24 19:30 Pulse Rate 92 06/28/24 19:30 Respiratory Rate 20 06/28/24 19:30 Blood Pressure 139/68 06/28/24 19:30 Pulse Oximetry 92 06/28/24 19:30 Oxygen Delivery Method Room Air 06/28/24 19:30 Medications Administered Medications: Generic Name Dose Route Start Last Admin Trade Name Freq PRN Reason Stop Dose Admin Acetaminophen 650 - 975 mg 06/28/24 15:50 06/28/24 17:35 Acetaminophen 325 Mg Tablet PO 975 mg Q6H PRN Administration Doxycycline Hyclate 100 mg 06/28/24 15:50 06/28/24 21:13 Doxycycline Hyclate 100 Mg PO 100 mg BID SILVANO Administration Guaifenesin 1,200 mg 06/28/24 15:50 06/28/24 21:12 Guaifenesin 600 Mg Tab.Er.12h PO 1,200 mg BID SILVANO Administration Imipenem/Cilastatin Sodium 500 100 mls @ 200 mls/hr 06/28/24 16:30 06/28/24 17:07 mg/ Sodium Chloride IVPB Infused Q6H SILVANO Infusion Lisinopril 15 mg 06/28/24 21:00 06/28/24 21:12 Lisinopril 10 Mg Tablet PO 15 mg BID SILVANO Administration Metoprolol Tartrate 25 mg 06/28/24 21:00 06/28/24 21:12 Metoprolol Tartrate 25 Mg Tablet PO 25 mg BID SILVANO Administration Acalabrutinib 0 mg 06/28/24 21:00 06/28/24 21:13 Maleate (Calquence) PO 100 mg 100 Mg Tab BID SILVANO Administration Nystatin 500,000 unit 06/28/24 17:00 06/28/24 21:30 Nystatin 500,000 Unit/5 Ml PO 500,000 unit QID SILVANO Administration Rivaroxaban 20 mg 06/28/24 18:00 06/28/24 17:33 Rivaroxaban 10 Mg Tablet PO 20 mg Q24H SILVANO Administration Sodium Chloride 5 ml 06/28/24 15:50 06/28/24 16:32 Sodium Chloride 0.9 % (Flush) 10 Ml Syringe IVF 5 ml .FLUSH PRN Administration Sodium Chloride 5 ml 06/28/24 21:00 06/28/24 21:42 Sodium Chloride 0.9 % (Flush) 10 Ml Syringe IVF Not Given BID SILVANO Sodium Chloride 250 ml 06/28/24 16:15 06/28/24 16:32 0.9 % Sodium Chloride 250 Ml IV 250 ml Q24H SILVANO Administration Discontinued Medications Generic Name Dose Route Start Last Admin Trade Name Reeceq PRN Reason Stop Dose Admin Acetaminophen 1,000 mg 06/28/24 09:15 06/28/24 09:20 Acetaminophen 500 Mg Tablet PO 06/28/24 09:16 1,000 mg ONCE ONE Administration Albuterol/Ipratropium 1 neb 06/28/24 05:26 06/28/24 05:33 Iprat-Albut 0.5-2.5 Mg/3 Ml Neb IH 06/28/24 05:27 1 neb ONCE ONE Administration Azithromycin 500 mg/ Sodium 255 mls @ 255 mls/hr 06/28/24 08:30 06/28/24 09:12 Chloride IVPB 06/28/24 09:29 Infused ONCE ONE Infusion Imipenem/Cilastatin Sodium 500 100 mls @ 200 mls/hr 06/28/24 08:00 06/28/24 09:52 mg/ Sodium Chloride IVPB 06/28/24 08:29 Infused ONCE ONE Infusion Medical Decision Making Lab Data Labs: Lab Results 06/28/24 Range/Units 05:34 WBC 58.63 H* (4.50-11.00) K/uL RBC 3.00 L (4.30-5.90) m/uL Hgb 9.1 L (13.5-17.5) gm/dL Hct 29.9 L (37.0-53.0) % MCV 100 (80-100) fL MCH 30 (26-34) pg MCHC 30 L (32-36) gm/dL RDW Coeff of Ekta 14.0 (11.5-15.5) % Plt Count 219 (140-440) K/uL Neut % (Auto) 24.5 L (42.0-72.0) % Lymph % (Auto) 73.5 H (20-44) % [place] % (Auto) 1.4 (0.0-11.0) % Eos % (Auto) 0.0 (0.0-7.0) % Baso % (Auto) 0.1 (0.0-3.0) % Neut # (Auto) 14.40 H (1.7-7.0) K/uL Lymph # (Auto) 43.10 H (0.90-2.90) K/uL [place] # (Auto) 0.80 (0.00-0.90) K/UL Eos # (Auto) 0.00 (0.00-0.50) K/uL Baso # (Auto) 0.10 (0.00-0.30) K/uL Abs Immat Gran (auto) 0.30 (0.00-0.30) K/uL Imm/Tot Granulo (auto) 0.5 % Sodium 126 L (135-149) mmol/L Potassium 4.4 (3.6-5.1) mmol/L Chloride 96 (96-114) mmol/L Carbon Dioxide 24 (20-32) mmol/L Anion Gap 6 L (7-15) mEq/L BUN 31 H (7-30) mg/dL Creatinine 0.9 (0.5-1.5) mg/dL Estimated Creat Clear 60.54 Estimated GFR 87 ml/min Glucose 99 (60-115) mg/dL Calcium 8.1 L (8.4-10.6) mg/dL C-Reactive Protein 4.9 H (0.5-1.0) mg/dL NT-Pro-B Natriuret Pep 1280 pg/mL Procalcitonin 0.06 (<0.50) ng/mL POC Creatinine 1.0 (0.6-1.3) mg/dl Discharge Plan Discharge Clinical Impression: Pneumonia, Chronic lymphocytic leukemia, Hemoptysis Patient Disposition: Admitted As Observation
[2024-06-28] MEDS: AZITHROMYCIN 500 MG in 0.9 % SODIUM CHLORIDE 250 ml 250 ML 255 MG IVPB (08:07)
[2024-06-28] MEDS: ACETAMINOPHEN 500 MG TABLET 1000 MG PO (09:20)
--- NOTE | 2024-06-28 15:36 | P.IMHP_ITS ---
Hospitalist- H&P: HPI History of Present Illness Date Seen: 06/28/24 Chief complaint: short of breath Narrative: Chad Jensen is a 78 year old male past medical history significant for CLL, on Calquence, history of malignant melanoma of trunk/salivary duct/parotid gland, anemia, hypothyroidism, atrial fibrillation on chronic anticoagulation, GERD, previous hemoptysis, recent pneumonitis, human metapneumovirus pneumonia is admitted to the medical floor from the ED for further management new appearing bilateral pneumonia. Patient reports having felt well since discharging from the hospital on the . Yesterday was even feeling pretty good during the day. Did have 1 episode, short-lived, of dizziness. He sat on the floor and waited for this to resolve. He tells me this has happened in the past as well. Also relates a history of rare intermittent ocular migraines. Otherwise denied recent headaches. Has not been febrile, no chills. Denies chest pain. Awoke in the middle night feeling congested with a ?growling? Sounds/sensation in the chest. This made him nervous. He also reports coughing up phlegm with specks of bright red blood x2 overnight. He tells me this is not unusual for him and has done this in the past. He does have a history of GERD and is on an anticoagulant, a steroid, and Keytruda. Thus presented to the ED for evaluation. Denies recent nausea vomiting. No change in stools. No change in urination. Patient was recently hospitalized 06/13/2024-06/18/2024 with acute hypoxic respiratory failure in setting of pneumonia, positive human metapneumovirus pneumonia. Outpatient follow-up with Dr. Hurtado, Oncology, on 06/21/2024 was reassuring, had been improving. PCP is Dr. Reilly. Oncology is Dr. Hurtado. Review of Systems Narrative: REVIEW OF SYSTEMS: Complete review of systems performed and negative unless otherwise stated in HPI or below. [facility] Medical History (Updated 06/28/24 @ 16:25 by Sherie Garcia PA-C) Immunocompromised ?D84.9 - Immunodeficiency, unspecified (ICD-10) Hypothyroid ?E03.9 - Hypothyroidism, unspecified (ICD-10) Right leg swelling ?M79.89 - Other specified soft tissue disorders (ICD-10) 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 - Malignant neoplasm of major salivary gland, unspecified (ICD-10) Anemia ?D64.9 - Anemia, unspecified (ICD-10) GERD (gastroesophageal reflux disease) ?K21.9 - Gastro-esophageal reflux disease without esophagitis (ICD-10) CAD (coronary artery disease) ?I25.10 - Atherosclerotic heart disease of [place] coronary artery without angina pectoris (ICD-10) Pulmonary nodules ?R91.8 - Other nonspecific abnormal finding of lung field (ICD-10) History of cardioversion ?Z98.890 - Other specified postprocedural states (ICD-10) CLL (chronic lymphocytic leukemia) (~08/2018) ?C91.10 - Chronic lymphocytic leukemia of B-cell type not having achieved remission (ICD-10) Malignant melanoma ?C43.9 - Malignant melanoma of skin, unspecified (ICD-10) Anxiety ?F41.9 - Anxiety disorder, unspecified (ICD-10) BPH with obstruction/lower urinary tract symptoms ?N40.1 - Benign prostatic hyperplasia with lower urinary tract symptoms (ICD- 10) ?N13.8 - Other obstructive and reflux uropathy (ICD-10) Prostate cancer ?C61 - Malignant neoplasm of prostate (ICD-10) Hypertension ?I10 - Essential (primary) hypertension (ICD-10) Paroxysmal atrial fibrillation ?I48.0 - Paroxysmal atrial fibrillation (ICD-10) Surgical History S/P mitral valve clip implantation (~2019) ?Z98.890 - Other specified postprocedural states (ICD-10) ?Z95.818 - Presence of other cardiac implants and grafts (ICD-10) History of tonsillectomy ?Z90.89 - Acquired absence of other organs (ICD-10) History of melanoma excision ?Z98.890 - Other specified postprocedural states (ICD-10) ?Z85.820 - Personal history of malignant melanoma of skin (ICD-10) History of cataract surgery ?Z98.49 - Cataract extraction status, unspecified eye (ICD-10) Hx of mitral valve repair ?Z98.890 - Other specified postprocedural states (ICD-10) Family History Other CHF (congestive heart failure) Hodgkins disease Social History Narrative: he is and here with his . He gets oncology care through [facility]. He gets primary care through [facility], Dr. Nikki Reilly. He does not smoke. He drinks 1 glass of red wine daily. Full code. Daughters are designated healthcare [employer] director What is your current living situation?: I presently have a place to live Problems where you live: no known problems Problems where you live details: recently , they were each other's caregivers & now daughters have been staying with him periodically In the past 12 months, utilities in danger of being shut off: no In past 12 months, lack of transportation kept you from medical appts, meetings, work, or getting things needed for daily living: no In the past 12 mos, have been you worried that your food would run out before you had money to buy more?: never true In the past 12 mos, the food you bought just didn't last and you didn't have money to buy more?: never true Highest level of school completed/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, [employer], 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, 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) Smoking Status: Never smoker Do you use any of these nicotine containing products: None Second hand tobacco smoke exposure: No How often do you have a drink containing alcohol: never How often do you have six or more drinks on one occasion: Never AUDIT-C Alcohol total score: 0 Non-prescribed substance use: denies use Caffeine: No How often does anyone, including family, friends and others, physically hurt you : never How often does anyone, including family, friends and others, insult or talk down to you: never How often does anyone, including family, friends and others, threaten you with harm: never How often does anyone, including family, friends and others, scream or curse at you: never service: No Meds Home Medications and Allergies Home Medications ?Medication ?Instructions ?Recorded ?Confirmed ?Type rivaroxaban 20 mg tablet (Xarelto) 20 mg PO Q24H 12/07/21 06/28/24 History alprazolam 0.25 mg tablet 0.25 mg PO BID PRN 12/16/21 06/28/24 History famotidine 20 mg tablet (Pepcid) 20 mg PO DAILY 12/16/21 06/28/24 History magnesium chloride 71.5 mg 71.5 mg PO QDAY 02/15/22 06/28/24 History (magnesium chloride) tablet,delayed release (Slow-Mag) tamsulosin 0.4 mg capsule (Flomax) 0.4 mg PO DAILY 02/15/22 06/28/24 History amiodarone 100 mg tablet 100 mg PO DAILY 11/11/22 06/28/24 History metoprolol tartrate 25 mg tablet 25 mg PO BID 11/11/22 06/28/24 History lisinopril 10 mg tablet 15 mg PO BID 03/03/23 06/28/24 History calcium carbonate (Tums) 300 mg PO BID PRN 03/31/23 06/28/24 History ferrous sulfate 324 mg (65 mg 324 mg PO DAILY 03/31/23 06/28/24 History iron) tablet,delayed release atorvastatin 20 mg tablet 20 mg PO DAILY 11/17/23 06/28/24 History furosemide 20 mg tablet 20 mg PO DAILY PRN 01/25/24 06/28/24 History acalabrutinib maleate 100 mg 100 mg PO BID 06/21/24 06/28/24 History tablet (Calquence (acalabrutinib maleate)) levothyroxine 112 mcg tablet 112 mcg PO DAILY 06/28/24 06/28/24 History (Synthroid) nystatin 100,000 unit/mL oral 5 ml PO Q6H 06/28/24 06/28/24 History suspension Allergies Allergy/AdvReac Type Severity Reaction Status Date / Time ibrutinib (From Imbruvica) Allergy Intermediate Rash Verified 06/21/24 12:40 Penicillins Allergy Verified 06/21/24 12:40 Exam Narrative: Exam Narrative: PHYSICAL EXAM General: Pleasant, conversant, NAD HEENT: Normocephalic, atraumatic, sclera white, EOMI, oral mucosa moist Cardiovascular: RRR, S1S2. No pitting edema Pulmonary: CTA bilaterally without rhonchi, rales, expiratory wheezes. No dyspnea on room air Abdominal: Soft, nondistended, NTTP Neurological: Alert, answering questions appropriately, cranial nerves intact, no focal findings Extremities: No gross joint deformity or swelling. AROMI. Neurovascularly intact Skin: Warm, dry. Const: Vital Signs, click to edit/add: Vital Signs - 24 hr 06/28/24 04:56 06/28/24 08:06 06/28/24 11:38 Temperature 97.6 F 100.0 F H 99.4 F Pulse Rate [Left P ulse Oximeter] 92 84 Pulse Rate [Pulse Oximeter] 90 Respiratory Rate 16 18 20 Blood Pressure [Le ft Arm] 135/68 Blood Pressure [Ri ght Upper Arm] 170/76 H 130/71 Pulse Oximetry 96 94 94 Oxygen Delivery Me thod Room Air Room Air Room Air 06/28/24 12:24 Temperature Pulse Rate [Left P ulse Oximeter] Pulse Rate [Pulse Oximeter] Respiratory Rate 18 Blood Pressure [Le ft Arm] Blood Pressure [Ri ght Upper Arm] Pulse Oximetry 94 Oxygen Delivery Me thod Room Air Hospitalist - H&P: Result Labs Labs: Short CBC 06/28/24 Range/Units 05:34 WBC 58.63 H* (4.50-11.00) K/uL Hgb 9.1 L (13.5-17.5) gm/dL Hct 29.9 L (37.0-53.0) % Plt Count 219 (140-440) K/uL BMP 06/28/24 05:34 Sodium 126 L Potassium 4.4 Chloride 96 Carbon Dioxide 24 BUN 31 H Creatinine 0.9 Glucose 99 Calcium 8[address] scan - chest: Attestation: I have reviewed the pertinent imaging results. Radiologist's impression: Airway: Normal tracheobronchial tree. Lungs: New multifocal consolidations. The largest is in the left upper lobe and measures 8 centimeters. There are several other nodular consolidations elsewhere. No necrosis or cavitation. Immediately adjacent to the consolidations there is ground-glass opacification and fine interlobular septal thickening. This is on a background of diffuse ground-glass opacification with scattered areas of mild smooth interlobular septal thickening. Appearance of the lungs has worsened since the comparison exam. Pleura: Trace bilateral pleural effusions are smaller than before. No pneumothorax. Lymph nodes: Left axillary lymphadenopathy. The largest left axillary lymph node measures 2.1 x 1.2 cm on series 2, image 30. Multi station mediastinal adenopathy. The largest left anterior mediastinal/prevascular lymph node measures 2.3 x 2.0 centimeters on series 2, image 24. the right paratracheal lymph node measures 2.7 x 1.7 cm on series 2, image 39. No definite change since prior accounting for slight differences in positioning. Large subcarinal lymph node is unchanged. Bilateral hilar lymph nodes are enlarged and unchanged. Right axillary lymph nodes are enlarged and unchanged. No cardiophrenic or retrocrural adenopathy. Mediastinum: No pneumomediastinum. Heart and great vessels: No pericardial effusion. Normal cardiac chamber size. Scattered atherosclerotic plaques. No aortic aneurysm. Normal caliber main pulmonary artery. Mitral valve clip. Chest wall: Mild chest wall edema. Small subdermal cyst just to the left of midline in the upper back/lower neck. Upper abdomen: [place] periportal and retroperitoneal adenopathy. Mild bilateral urinary tract dilatation. Bones: No fractures. No focal bone lesions. IMPRESSION: 1. New multifocal consolidative opacities in both lungs. Appearance of the lungs has worsened since the previous exam. Leading differential is infection. Noninfectious interstitial pneumonias and hemorrhage could also be considered. Malignancy less likely given rapid development. 2. No substantial change in multi station thoracic and abdominal adenopathy. Assessment and Plan Assessment and plan (1) Pneumonia: Problem comment: -CT shows New multifocal consolidative opacities in both lungs. Appearance of the lungs has worsened since the previous exam. Leading differential is inf ection -no hypoxia, no tachypnea, temp 100? in ED. vitally stable -continue imipenem as initiated in ED, appropriate coverage as recently hospitalized 1 week ago -additional coverage with doxycycline -incentive spirometry, Aerobika, mucinex Status: Acute (2) Hemoptysis: Problem comment: -acute on chronic, recurrent, in setting of acute pneumonia, history of GERD, anticoagulated, steroid use, Keytruda -monitor, hemoglobin stable Status: Acute (3) Human metapneumovirus (hMPV) pneumonia: Problem comment: -diagnosed during last hospital stay June 2024 -continue prednisone therapy, currently 50 mg daily, for possible drug-induced pneumonitis -continue with supportive efforts Status: Acute (4) Pneumonitis: Problem comment: -suspected pneumonitis during last hospital stay due to immune therapy/checkpoint inhibitors -continue prednisone currently 50 mg daily, weaned from 70 mg daily Status: Acute (5) Chronic lymphocytic leukemia: Problem comment: -TP53 (17p-~53%) and trisomy 12 (~52%) -continue calabrutinib 100 mg b.i.d. Status: Acute (6) Immunocompromised: Problem comment: Due to CLL an immune therapy. Status: Acute (7) Hyponatremia: Problem comment: Acute on chronic. Likely related to pneumonia, chronic medications. Continue to follow. Fluid restriction. Status: Acute (8) Hypothyroid: Problem comment: -continue levothyroxine Status: Acute (9) Atrial fibrillation with rapid ventricular response: Problem comment: -continue amiodarone, metoprolol - blood pressure/HR appropriate currently -chronic anticoagulation on rivaroxaban Follows with Cardiology [facility] Status: Acute (10) Anemia: Problem comment: -anemia of chronic disease, chronic meds, chemotherapy -hemoglobin 9.1, at baseline, monitor Status: Acute Total Time Spent Total Time Spent: Total time spent caring for the patient today was 75 minutes. This includes time spent for the visit reviewing the chart, time spent during the visit, time spent after the visit and documentation and planning in coordination of care.
[2024-06-28 16:14] LABS: C Reactive Protein* 4.9 mg/dL (0.5-1.0)
[2024-06-28 16:28] LABS: Procalcitonin* 0.06 ng/mL (<0.50)
[2024-06-28] MEDS: guaiFENesin 600 MG TAB.ER.12H 1200 MG PO ×2 (16:31→21:12)
[2024-06-28] MEDS: DOXYCYCLINE HYCLATE 100 MG PO ×2 (16:31→21:13)
[2024-06-28] MEDS: SODIUM CHLORIDE 0.9 % (FLUSH) 10 ML SYRINGE 5 ML IVF (16:32)
[2024-06-28] MEDS: 0.9 % SODIUM CHLORIDE 250 ml IV (16:32)
[2024-06-28] MEDS: NYSTATIN 500,000 UNIT/5 ML 500000 UNIT PO ×2 (16:39→21:30)
[2024-06-28] MEDS: RIVAROXABAN 10 MG TABLET 20 MG PO (17:33)
[2024-06-28] MEDS: ACETAMINOPHEN 325 MG TABLET PO ×2 (17:35→23:53)
--- NOTE | 2024-06-28 19:15 | PC.NURSE ---
Addendum entered by Isabel Hernandez RN 06/28/24 19:22: Tele= NSR Original Note: End of Shift: Patient pleasant and cooperative. Patient vitally stable, lungs clear, BS WNL, IV SL and intact. Patient denies pain and independent in room. Patient coughs up blood. Patient had a temp of 99.9 was given tylenol, at this time patient reported feeling cold and his breathing was gurgly like it was at home. Temperature was rechecked with in being at 101, patient reported feeling better and breathing was no longer moist/course. Patient urinating well and tolerating regular diet.
[2024-06-28] MEDS: lisinopriL 10 MG TABLET 15 MG PO (21:12)
[2024-06-28] MEDS: METOPROLOL TARTRATE 25 MG TABLET PO (21:12)
[2024-06-29] VITALS (8 sets, daily range): BP systolic 123–152; BP diastolic 64–79; PULSE 70–89; RESP 16–18; TEMP 36.7–38.6; O2SAT 90–94; BMI 22.1
[2024-06-29] MEDS: IPRAT-ALBUT 0.5-2.5 MG/3 ML NEB 1 NEB IH ×4 (05:02→23:22)
[2024-06-29 06:37] LABS: Hematocrit 28.6 % (37.0-53.0); Hemoglobin* 8.7 gm/dL (13.5-17.5); Mean Corpuscular HGB Conc 30 gm/dL (32-36); Mean Corpuscular Hemoglobin 30 pg (26-34); Mean Corpuscular Volume 100 fL (80-100); Platelet Count* 206 K/uL (140-440); Red Blood Count 2.86 m/uL (4.30-5.90)
[2024-06-29] MEDS: LEVOTHYROXINE 112 MCG TABLET PO (06:39)
--- NOTE | 2024-06-29 06:48 | PC.NURSE ---
19-0700: A&O and pleasant during cares. VS on RA, febrile throughout the night, PRN Tylenol was given, fever was noted to decrease post administration. No reports of pain. The patient reports that he had a hard time sleeping due to ?gurgling? that he can audibly hear. PRN order was placed for duo nebs with DR bauer. The patient stated that the neb helped his ?gurgling?. Independent in the room, voiding well. Call light within reach. ? Ema AGUILAR BSN
[2024-06-29 06:49] LABS: Chloride* 98 mmol/L (96-114); Potassium* 4.5 mmol/L (3.6-5.1); Sodium* 129 mmol/L (135-149)
[2024-06-29 06:52] LABS: Anion Gap 5 mEq/L (7-15); Blood Urea Nitrogen* 27 mg/dL (7-30); Carbon Dioxide* 26 mmol/L (20-32); Creatinine* 0.8 mg/dL (0.5-1.5); Est. Creatinine Clearance* 60.39; Estimated Glomerular Filt Rate 91 ml/min
[2024-06-29 06:53] LABS: Glucose* 81 mg/dL (60-115)
[2024-06-29 07:51] LABS: White Blood Count* 44.48 K/uL (4.50-11.00)
[2024-06-29 07:52] LABS: Slide Review Acceptable Review (Acceptable); Slide Review Reflex Yes
[2024-06-29] MEDS: predniSONE 10 MG TABLET 50 MG PO (08:33)
[2024-06-29] MEDS: lisinopriL 10 MG TABLET 15 MG PO ×2 (08:35→21:30)
[2024-06-29] MEDS: METOPROLOL TARTRATE 25 MG TABLET PO ×2 (08:35→21:29)
[2024-06-29] MEDS: FAMOTIDINE 20 MG TABLET PO (08:35)
[2024-06-29] MEDS: TAMSULOSIN HCL 0.4 MG CAPSULE PO (08:35)
[2024-06-29] MEDS: ATORVASTATIN 10 MG TABLET 20 MG PO (08:35)
[2024-06-29] MEDS: DOXYCYCLINE HYCLATE 100 MG PO ×2 (08:35→21:30)
[2024-06-29] MEDS: AMLODIPINE 5 MG TABLET PO (08:36)
[2024-06-29] MEDS: NYSTATIN 500,000 UNIT/5 ML 500000 UNIT PO ×4 (08:36→21:32)
[2024-06-29] MEDS: guaiFENesin 600 MG TAB.ER.12H 1200 MG PO ×2 (08:36→21:29)
[2024-06-29] MEDS: AMIODARONE 200 MG TABLET 100 MG PO (08:36)
[2024-06-29] MEDS: ACETAMINOPHEN 325 MG TABLET PO (08:41)
[2024-06-29] MEDS: SODIUM CHLORIDE 0.9 % (FLUSH) 10 ML SYRINGE 5 ML IVF ×2 (08:51→21:36)
[2024-06-29] MEDS: FERROUS SULFATE 325 MG TABLET 324 MG PO (13:21)
--- NOTE | 2024-06-29 15:48 | PM.IMPN1 ---
Progress Note: A&P Assessment and plan (1) Pneumonia: Problem details: -CT shows New multifocal consolidative opacities in both lungs. Appearance of the lungs has worsened since the previous exam. Leading differential is infection -no hypoxia, no tachypnea, temp 100? in ED. vitally stable -continue imipenem as initiated in ED, appropriate coverage as recently hospitalized 1 week ago -additional coverage with doxycycline -incentive spirometry, Aerobika, mucinex -strep pneumo/Legionella ordered, procalcitonin negative -of note, Oncology referring him to [place] for aerosolized pentamidine for PJP prophylaxis Status: Acute (2) Hemoptysis: Problem details: -acute on chronic, recurrent, in setting of acute pneumonia, history of GERD, anticoagulated, steroid use, Keytruda -monitor, hemoglobin stable -will likely need outpatient pulmonology follow-up with bronchoscopy Status: Acute (3) Human metapneumovirus (hMPV) pneumonia: Problem details: -diagnosed during last hospital stay June 2024 -continue prednisone therapy, currently 50 mg daily, for possible drug-induced pneumonitis -continue with supportive efforts Status: Acute (4) Pneumonitis: Problem details: -suspected pneumonitis during last hospital stay due to immune therapy/checkpoint inhibitors -continue prednisone currently 50 mg daily, weaned from 70 mg daily Status: Acute (5) Chronic lymphocytic leukemia: Problem details: -TP53 (17p-~53%) and trisomy 12 (~52%) -continue calabrutinib 100 mg b.i.d. -WBC trending down Status: Acute (6) Immunocompromised: Problem details: Due to CLL an immune therapy Status: Acute (7) Hyponatremia: Problem details: Acute on chronic. Likely related to pneumonia, chronic medications. Continue to follow. Fluid restriction. -sodium 126 ->129 Status: Acute (8) Hypothyroid: Problem details: -continue levothyroxine Status: Acute (9) Atrial fibrillation with rapid ventricular response: Problem details: -continue amiodarone, metoprolol - blood pressure/HR appropriate currently -chronic anticoagulation on rivaroxaban Follows with Cardiology [facility] Status: Acute (10) Anemia: Problem details: -anemia of chronic disease, chronic meds, chemotherapy -hemoglobin 9.1, at baseline, monitor -> 8.7 Status: Acute Time Spent With Patient Total time spent: Total time spent caring for the patient today was 45 minutes. This includes time spent for the visit reviewing the chart, time spent during the visit, time spent after the visit and documentation and planning in coordination of care. Subjective Date Seen: 06/29/24 Interval history: Patient is seen resting in bed this morning. Comfortable. Feeling better. Still congested in the chest. Oxygen saturations dipping into upper 80s with ambulation when working with therapies. Recovers quickly. Denies chest pain or tightness. Remains afebrile. Tolerating orals without nausea vomiting. Exam Narrative: Exam Narrative: PHYSICAL EXAM General: Pleasant, conversant, NAD Cardiovascular: RRR, S1S2. No pitting edema Pulmonary: Moving air, no expiratory wheezes. No dyspnea on room air Neurological: Alert, answering questions appropriately, cranial nerves intact, no focal findings Extremities: No gross joint deformity or swelling. AROMI. Neurovascularly intact Skin: Warm, dry. Const: Vital Signs, click to edit/add: Vital Signs - 24 hr 06/28/24 15:50 06/28/24 17:35 06/28/24 17:36 Temperature 99.9 F H 99.9 F H Pulse Rate Pulse Rate [Pulse Oximeter] Respiratory Rate 16 Blood Pressure [Le ft Arm] Pulse Oximetry 90 [facility] 06/28/24 18:27 06/28/24 19:08 06/28/24 19:19 Temperature 101.2 F H 101.2 F H Pulse Rate 88 Pulse Rate [Pulse Oximeter] Respiratory Rate Blood Pressure [Le ft Arm] Pulse Oximetry Oxygen Delivery Ma thod 06/28/24 19:30 06/28/24 20:00 06/28/24 22:38 Temperature 98.8 F 99.5 F Pulse Rate 97 Pulse Rate [Pulse Oximeter] 92 72 Respiratory Rate 20 16 Blood Pressure [Le ft Arm] 139/68 140/70 H Pulse Oximetry 92 92 [facility] Room Air 06/28/24 23:53 06/29/24 03:00 06/29/24 07:00 Temperature 100.9 F H 99.3 F Pulse Rate Pulse Rate [Pulse Oximeter] 80 88 Respiratory Rate 18 16 Blood Pressure [Le ft Arm] 148/79 H Pulse Oximetry 90 [facility] 06/29/24 07:00 06/29/24 07:00 06/29/24 08:41 Temperature 101.4 F H 101.4 F H Pulse Rate 89 Pulse Rate [Pulse Oximeter] 88 Respiratory Rate 16 Blood Pressure [Le ft Arm] 152/71 H Pulse Oximetry 90 Oxygen Delivery Me thod Room Air 06/29/24 10:02 06/29/24 11:00 06/29/24 15:00 Temperature 98.1 F 98.1 F Pulse Rate Pulse Rate [Pulse Oximeter] 75 77 Respiratory Rate 16 16 Blood Pressure [Le ft Arm] 143/72 H Pulse Oximetry 90 Oxygen Delivery Ma thod Room Air 06/29/24 15:00 Temperature 98.6 F Pulse Rate Pulse Rate [Pulse Oximeter] 77 Respiratory Rate 16 Blood Pressure [Le ft Arm] 125/64 Pulse Oximetry 94 Oxygen Delivery Ma thod Room Air Labs Labs: Laboratory Results - last 24 hr 06/28/24 06/28/24 06/29/24 05:34 15:50 05:47 WBC 44.48 H* RBC 2.86 L Hgb 8.7 L Hct 28.6 L MCV 100 MCH 30 MCHC 30 L Plt Count 206 Diff Slide Review Acceptable Review Sodium 129 L Potassium 4.5 Chloride 98 Carbon Dioxide 26 Anion Gap 5 L BUN 27 Creatinine 0.8 Estimated Creat Clear 60.39 Estimated GFR 91 Glucose 81 Calcium 8.0 L C-Reactive Protein 4.9 H 13.0 H Procalcitonin 0.06 Lab Acknowledgement Test Added
[2024-06-29 16:18] LABS: Lab Add On Test New Spec Needed
[2024-06-29] MEDS: MAGNESIUM OXIDE 400 MG TABLET PO (17:10)
[2024-06-29 17:45] LABS: Legionella pneumo Ag Urine L. pneumo Negative (Negative); S pneumo Ag Urine S. pneumo Negative (Negative)
[2024-06-29] MEDS: RIVAROXABAN 10 MG TABLET 20 MG PO (18:49)
[2024-06-30 02:45] VITALS: BP 166/86; PULSE 76; RESP 16; TEMP 37.4; O2SAT 96
[2024-06-30] MEDS: IPRAT-ALBUT 0.5-2.5 MG/3 ML NEB 1 NEB IH ×2 (05:42→11:59)
--- NOTE | 2024-06-30 05:45 | PC.NURSE ---
Shift note: Pt is doing well with O2>90 on RA. No fever recorded, Bp at 0300 was elevated. Alert and oriented. Pt mentioned this morning at 0600 that he felt feverish between 0330 and 0500 but slept through that. Temperature checked at 0600 was 98.9.Alert and orient, no wheezing or SOB recorded. Due treatment given.
[2024-06-30] MEDS: LEVOTHYROXINE 112 MCG TABLET PO (06:39)
[2024-06-30 07:00] VITALS: BP 151/76; PULSE 85; PULSE 99; RESP 18; TEMP 37.4; O2SAT 92
[2024-06-30 07:06] LABS: Hematocrit 25.2 % (37.0-53.0); Mean Corpuscular HGB Conc 31 gm/dL (32-36); Mean Corpuscular Hemoglobin 31 pg (26-34); Mean Corpuscular Volume 99 fL (80-100); Platelet Count* 203 K/uL (140-440); Red Blood Count 2.55 m/uL (4.30-5.90)
[2024-06-30 07:11] LABS: Hemoglobin* 7.9 gm/dL (13.5-17.5); White Blood Count* 43.69 K/uL (4.50-11.00)
[2024-06-30 07:12] LABS: Slide Review Reflex No
[2024-06-30 07:14] LABS: Chloride* 100 mmol/L (96-114); Potassium* 4.2 mmol/L (3.6-5.1); Sodium* 129 mmol/L (135-149)
[2024-06-30 07:16] LABS: Creatinine* 0.8 mg/dL (0.5-1.5); Est. Creatinine Clearance* 60.54; Estimated Glomerular Filt Rate 91 ml/min
[2024-06-30 07:17] LABS: Anion Gap 5 mEq/L (7-15); Blood Urea Nitrogen* 30 mg/dL (7-30); Carbon Dioxide* 24 mmol/L (20-32); Glucose* 97 mg/dL (60-115)
--- NOTE | 2024-06-30 08:16 | PM.IMPN1 ---
Progress Note: A&P Assessment and plan (1) Pneumonia: Problem details: -CT shows New multifocal consolidative opacities in both lungs. Appearance of the lungs has worsened since the previous exam. Leading differential is infection -no hypoxia, no tachypnea, temp 100? in ED. vitally stable -continue imipenem as initiated in ED, appropriate coverage as recently hospitalized 1 week ago -additional coverage with doxycycline -incentive spirometry, Aerobika, mucinex -strep pneumo/Legionella ordered, procalcitonin negative -of note, Oncology referring him to [place] for aerosolized pentamidine for PJP prophylaxis Status: Acute (2) Hemoptysis: Problem details: -acute on chronic, recurrent, in setting of acute pneumonia, history of GERD, anticoagulated, steroid use, Keytruda -monitor, hemoglobin stable -will likely need outpatient pulmonology follow-up with bronchoscopy Status: Acute (3) Human metapneumovirus (hMPV) pneumonia: Problem details: -diagnosed during last hospital stay June 2024 -continue prednisone therapy, currently 50 mg daily, for possible drug-induced pneumonitis -continue with supportive efforts Status: Acute (4) Pneumonitis: Problem details: -suspected pneumonitis during last hospital stay due to immune therapy/checkpoint inhibitors -continue prednisone currently 50 mg daily, weaned from 70 mg daily Status: Acute (5) Chronic lymphocytic leukemia: Problem details: -TP53 (17p-~53%) and trisomy 12 (~52%) -continue calabrutinib 100 mg b.i.d. -WBC trending down Status: Acute (6) Immunocompromised: Problem details: Due to CLL an immune therapy Status: Acute (7) Hyponatremia: Problem details: Acute on chronic. Likely related to pneumonia, chronic medications. Continue to follow. Fluid restriction. -sodium 126 ->129 06/30 added sodium tablets tidwm Status: Acute (8) Hypothyroid: Problem details: -continue levothyroxine Status: Acute (9) Atrial fibrillation with rapid ventricular response: Problem details: -continue amiodarone, metoprolol - blood pressure/HR appropriate currently -chronic anticoagulation on rivaroxaban Follows with Cardiology [facility] Status: Acute (10) Anemia: Problem details: -anemia of chronic disease, chronic meds, chemotherapy -hemoglobin 9.1, at baseline, monitor -> 8.7 06/30 dropped to 7.9 Status: Acute Time Spent With Patient Total time spent: Total time spent caring for the patient today was 45 minutes. This includes time spent for the visit reviewing the chart, time spent during the visit, time spent after the visit and documentation and planning in coordination of care. Exam Const: Vital Signs, click to edit/add: Vital Signs - 24 hr 06/28/24 17:35 06/28/24 17:36 06/28/24 18:27 Temperature 99.9 F H 99.9 F H Pulse Rate 88 Pulse Rate [Pulse Oximeter] Respiratory Rate Blood Pressure [Le ft Arm] Pulse Oximetry Oxygen Delivery In thod 06/28/24 19:08 06/28/24 19:19 06/28/24 19:30 Temperature 101.2 F H 101.2 F H 98.8 F Pulse Rate Pulse Rate [Pulse Oximeter] 92 Respiratory Rate 20 Blood Pressure [Le ft Arm] 139/68 Pulse Oximetry 92 Oxygen Delivery [facility] Room Air 06/28/24 20:00 06/28/24 22:38 06/28/24 23:53 Temperature 99.5 F 100.9 F H Pulse Rate 97 Pulse Rate [Pulse Oximeter] 72 Respiratory Rate 16 Blood Pressure [Le ft Arm] 140/70 H Pulse Oximetry 92 Oxygen Delivery In thod Room Air 06/29/24 03:00 06/29/24 07:00 06/29/24 07:00 Temperature 99.3 F 101.4 F H Pulse Rate Pulse Rate [Pulse Oximeter] 80 88 88 Respiratory Rate 18 16 16 Blood Pressure [Le ft Arm] 148/79 H 152/71 H Pulse Oximetry 90 90 Oxygen Delivery [facility] Room Air Room Air 06/29/24 07:00 06/29/24 08:41 06/29/24 10:02 Temperature 101.4 F H 98.1 F Pulse Rate 89 Pulse Rate [Pulse Oximeter] Respiratory Rate Blood Pressure [Le ft Arm] Pulse Oximetry Oxygen Delivery In thod 06/29/24 11:00 06/29/24 15:00 06/29/24 15:00 Temperature 98.1 F 98.6 F Pulse Rate Pulse Rate [Pulse Oximeter] 75 77 77 Respiratory Rate 16 16 16 Blood Pressure [Le ft Arm] 143/72 H 125/64 Pulse Oximetry 90 94 Oxygen Delivery [facility] Room Air Room Air Labs Labs: Laboratory Results - last 24 hr 06/28/24 06/28/24 06/29/24 05:34 15:50 05:47 WBC 44.48 H* RBC 2.86 L Hgb 8.7 L Hct 28.6 L MCV 100 MCH 30 MCHC 30 L Plt Count 206 Diff Slide Review Acceptable Review Sodium 129 L Potassium 4.5 Chloride 98 Carbon Dioxide 26 Anion Gap 5 L BUN 27 Creatinine 0.8 Estimated Creat Clear 60.39 Estimated GFR 91 Glucose 81 Calcium 8.0 L C-Reactive Protein 4.9 H 13.0 H Procalcitonin 0.06 Lab Acknowledgement Test Added
--- NOTE | 2024-06-30 08:38 | CRLHL7_ITS ---
For Patients: As a result of the 21st Century Cures Act, medical imaging exams and procedure reports are released immediately into your electronic medical record. You may view this report before your referring provider. If you have questions, please contact your health care provider. Indication: REEVAL WORSENING CT, HYPOXIA WITH ACTIVITY. Technique: CT pulmonary arteriography of the chest was performed following the administration of 75 mL Isovue 370. Comparison: 06/28/2024, 06/21/2024. Findings: Lungs and pleura: Multifocal nodular and confluent areas of consolidation within both lungs, largest area of consolidation is within the left upper lobe, which has increased compared to 06/28/2024. Additionally, patchy nodular areas of consolidation within the medial aspect of the right upper lobe have increased as well as a lateral right middle lobe consolidation. Significant interval increase in a nodular area of consolidation within the right lower lobe. Bilateral hazy/ground-glass opacities and interlobular septal thickening are similar to prior. Small bilateral pleural effusions. No pneumothorax. Heart and great vessels: The heart is normal in size. No pericardial effusion. Similar clip in the region of the mitral valve. Aorta and main pulmonary artery are normal in caliber. Moderate atherosclerotic aortic and coronary artery calcifications. Pulmonary artery opacification is adequate. No evidence of pulmonary embolism. Thyroid and mediastinum: Thyroid is normal. Similar mediastinal and hilar lymphadenopathy, for example a subcarinal lymph node measures 2.3 cm in short axis. Chest wall: Unchanged posterior paraspinal upper thoracic subcutaneous cyst measuring 2.1 cm. Mild body wall edema. Visualized upper abdomen: Partially visualized upper abdominal lymphadenopathy. Bones: Osseous demineralization. Diffuse idiopathic skeletal hyperostosis. Multilevel degenerative disc disease. Impression: 1. No evidence of pulmonary embolism. 2. Progressive confluent areas of consolidation within both lungs compared to 06/28/2024. Findings are on a background generalized ground-glass opacification and interlobular septal thickening. Primary differential consideration remains infectious/multifocal pneumonia. Given history of CLL, pulmonary lymphoproliferative disease/malignancy is a differential consideration; however, is felt to be less likely given time frame of development. Recommend radiographic follow-up to ensure resolution. 3. Mediastinal, hilar and upper abdominal lymphadenopathy. Please note that all CT scans at this facility use dose modulation, iterative reconstruction, and/or weight-based dosing when appropriate to reduce radiation dose to as low as reasonably achievable. Dictated by Kandy Mak MD @ 06/30/2024 9:48:25 AM (Electronically Signed)
[2024-06-30] MEDS: NYSTATIN 500,000 UNIT/5 ML 500000 UNIT PO ×2 (09:34→13:52)
[2024-06-30] MEDS: predniSONE 10 MG TABLET 50 MG PO (09:34)
[2024-06-30] MEDS: lisinopriL 10 MG TABLET 15 MG PO (09:35)
[2024-06-30] MEDS: ATORVASTATIN 10 MG TABLET 20 MG PO (09:35)
[2024-06-30] MEDS: AMIODARONE 200 MG TABLET 100 MG PO (09:36)
[2024-06-30] MEDS: guaiFENesin 600 MG TAB.ER.12H 1200 MG PO (09:38)
[2024-06-30] MEDS: METOPROLOL TARTRATE 25 MG TABLET PO (09:38)
[2024-06-30] MEDS: AMLODIPINE 5 MG TABLET PO (09:38)
[2024-06-30] MEDS: TAMSULOSIN HCL 0.4 MG CAPSULE PO (09:38)
[2024-06-30] MEDS: FAMOTIDINE 20 MG TABLET PO (09:38)
[2024-06-30] MEDS: DOXYCYCLINE HYCLATE 100 MG PO (09:38)
[2024-06-30] MEDS: SODIUM CHLORIDE 0.9 % (FLUSH) 10 ML SYRINGE 5 ML IVF (09:39)
[2024-06-30 11:00] VITALS: BP 145/80; PULSE 89; RESP 16; TEMP 37.3; O2SAT 90
[2024-06-30] MEDS: SODIUM CHLORIDE 1 GM TABLET PO (11:59)
[2024-06-30] MEDS: FERROUS SULFATE 325 MG TABLET 324 MG PO (13:52)
--- NOTE | 2024-06-30 14:09 | PC.NURSE ---
End of shift [id number] Patient alert and oriented x4, afebrile this shift. IV SL. Patient on RA, tolerating a reg. diet. Patient tolerating 1500 fluid restriction. Voiding well and ambulating indep in Rm and to BR. Patient using aerobike and IS indep. at bedside. Patient awaiting transfer to [place] for higher level of care.
--- NOTE | 2024-06-30 15:12 | PM.DS1 ---
DS: Providers Provider Date Seen: 06/30/24 Date of admission: 06/28/24 14:42 Primary care physician: GLENNA THOMAS DO Admitting Clinician: Wendi Lee MD Consults: 06/28/24 15:50 Consult to Occupational Therapy [CONS] Routine Comment: Reason(s) for OT Consult:: Evaluate and Treat Any Restrictions?:: No Restrictions Consult to Physical Therapy [CONS] Routine Comment: Reason(s) for PT Consult:: Evaluate and Treat Any Restrictions?:: No Restrictions Attending Physician on discharge: LIBORIO Nelson[facility] Date of Discharge: 06/30/24 DS: Diagnosis Discharge Diagnosis (1) Pneumonia: Status: Acute Problem details: -CT shows New multifocal consolidative opacities in both lungs. Appearance of the lungs has worsened since the previous exam. Leading differential is infection -no hypoxia, no tachypnea, temp 100? in ED. vitally stable -continue imipenem as initiated in ED, appropriate coverage as recently hospitalized 1 week ago -additional coverage with doxycycline -incentive spirometry, Aerobika, mucinex -strep pneumo/Legionella ordered, procalcitonin negative -of note, Oncology referring him to [place] for aerosolized pentamidine for PJP prophylaxis 06/30 overnight, patient reports feeling worse, wheezy, feels like his breathing just isn't as good. Repeat CT chest progressing confluent areas of consolidation within both lungs compared to 06/28. Discussed with Oncologist, Dr. Hurtado. Requesting transfer to [place] if possible for increasing cares. Call to [place] [facility]. Discussed with Pulmonology. Accepts for transfer. (2) Hemoptysis: Status: Acute Problem details: -acute on chronic, recurrent, in setting of acute pneumonia, history of GERD, anticoagulated, steroid use, Keytruda -monitor, hemoglobin stable -will likely need outpatient pulmonology follow-up with bronchoscopy Plan for [facility] to do bronchoscopy Tuesday as on available over the weekend. (3) Human metapneumovirus (hMPV) pneumonia: Status: Acute Problem details: -diagnosed during last hospital stay June 2024 -continue prednisone therapy, currently 50 mg daily, for possible drug-induced pneumonitis -continue with supportive efforts Continued on prednisone, transfer to [place] for further workup. (4) Pneumonitis: Status: Acute Problem details: -suspected pneumonitis during last hospital stay due to immune therapy/checkpoint inhibitors -continue prednisone currently 50 mg daily, weaned from 70 mg daily Continued on prednisone, transfer to [place] for further workup (5) Chronic lymphocytic leukemia: Status: Acute Problem details: -TP53 (17p-~53%) and trisomy 12 (~52%) -continue calabrutinib 100 mg b.i.d. - HOLD as recommended by Dr. Hurtado, oncology -WBC trending down (6) Immunocompromised: Status: Acute Problem details: Due to CLL an immune therapy (7) Hyponatremia: Status: Acute Problem details: Acute on chronic. Likely related to pneumonia, chronic medications. Continue to follow. Fluid restriction. -sodium 126 ->129 06/30 added sodium tablets tidwm (8) Hypothyroid: Status: Acute Problem details: -continue levothyroxine (9) Atrial fibrillation with rapid ventricular response: Status: Acute Problem details: -continue amiodarone, metoprolol - blood pressure/HR appropriate currently -chronic anticoagulation on rivaroxaban Follows with Cardiology [facility] cardiology can follow while hospitalized (10) Anemia: Status: Acute Problem details: -anemia of chronic disease, chronic meds, chemotherapy -hemoglobin 9.1, at baseline, monitor -> 8.7 06/30 dropped to 7.9. Patient reports adverse effects to transfusion. Attempted to transfusions during previous hospitalization in June, spiking fevers with both. Discussed with [place] pulmonology so they are aware, including concern for previous transfusion reactions. Asymptomatic prior to transfer, to for further cares to tertiary hospital. DS: Summary Hospital Course Hospital Course: On 06/30, Dr. Huratdo, Oncology reached out to me to touch base regarding [place]. Discussed symptomatically feeling worse, labs stable. Intermittent hemoptysis continues. Repeat CT chest showing progressing confluent areas of consolidation both lung when compared to CT of 06/28. Hold calquence. Recommending transferring if able. Called [place], spoke with BHARTI Sierra. Discussed with Dr. Muse, Pulmonology. Accepts for transfer pending bed availability. Status at Discharge Functional status at discharge: independent ambulation Overall status at discharge: patient is not back to baseline Time Spent with Patient Time attestation: Total time spent providing and/or coordinating discharge services: Time spent: Greater than 30 minutes Exam Narrative: Exam Narrative: PHYSICAL EXAM General: Pleasant, conversant, NAD Cardiovascular: RRR, S1S2. No pitting edema Pulmonary: Diffusely coarse, no expiratory wheezes. No dyspnea on room air Neurological: Alert, answering questions appropriately, cranial nerves intact, no focal findings Extremities: No gross joint deformity or swelling. AROMI. Neurovascularly intact Skin: Warm, dry. Const: Vital Signs, click to edit/add: Vital Signs - 24 hr 06/29/24 19:00 06/29/24 23:00 06/29/24 23:00 Temperature 99.1 F 98.4 F Pulse Rate Pulse Rate [Pulse Oximeter] 84 71 71 Respiratory Rate 16 16 16 Blood Pressure [Le ft Arm] 139/71 123/71 Pulse Oximetry 94 94 Oxygen Delivery Me thod Room Air Room Air 06/29/24 23:00 06/30/24 02:45 06/30/24 07:00 Temperature 99.3 F Pulse Rate 70 85 Pulse Rate [Pulse Oximeter] 76 Respiratory Rate 16 Blood Pressure [Le ft Arm] 166/86 H Pulse Oximetry 96 Oxygen Delivery Me thod Room Air 06/30/24 07:00 06/30/24 07:00 06/30/24 11:00 Temperature 99.4 F 99.1 F Pulse Rate Pulse Rate [Pulse Oximeter] 99 99 89 Respiratory Rate 18 18 16 Blood Pressure [Le ft Arm] 151/76 H 145/80 H Pulse Oximetry 92 90 Oxygen Delivery Me thod Room Air Room Air DS: Data Data Completed and Pending Labs on day of discharge: Labs from last 24 hours 06/30/24 06/29/24 06/29/24 06:08 17:20 15:48 WBC 43.69 H* RBC 2.55 L Hgb 7.9 L* Hct 25.2 L MCV 99 MCH 31 MCHC 31 L Plt Count 203 Sodium 129 L Potassium 4.2 Chloride 100 Carbon Dioxide 24 Anion Gap 5 L BUN 30 Creatinine 0.8 Estimated Creat Clear 60.54 Estimated GFR 91 Glucose 97 Calcium 8.0 L Urine L. pneumophilia Ag L. pneumo Negative Urine Strep pneumoniae Ag S. pneumo Negative Lab Acknowledgement New Spec Needed Preliminary micro results at discharge 06/30/24 13:12 Sputum Culture - Preliminary Sputum - Expectorated Sputum Culture in Progress Imaging CT chest 06/30: Attestation: I have reviewed the pertinent imaging results. Radiologist's impression: Lungs and pleura: Multifocal nodular and confluent areas of consolidation within both lungs, largest area of consolidation is within the left upper lobe, which has increased compared to 06/28/2024. Additionally, patchy nodular areas of consolidation within the medial aspect of the right upper lobe have increased as well as a lateral right middle lobe consolidation. Significant interval increase in a nodular area of consolidation within the right lower lobe. Bilateral hazy/ground-glass opacities and interlobular septal thickening are similar to prior. Small bilateral pleural effusions. No pneumothorax. Heart and great vessels: The heart is normal in size. No pericardial effusion. Similar clip in the region of the mitral valve. Aorta and main pulmonary artery are normal in caliber. Moderate atherosclerotic aortic and coronary artery calcifications. Pulmonary artery opacification is adequate. No evidence of pulmonary embolism. Thyroid and mediastinum: Thyroid is normal. Similar mediastinal and hilar lymphadenopathy, for example a subcarinal lymph node measures 2.3 cm in short axis. Chest wall: Unchanged posterior paraspinal upper thoracic subcutaneous cyst measuring 2.1 cm. Mild body wall edema. Visualized upper abdomen: Partially visualized upper abdominal lymphadenopathy. Bones: Osseous demineralization. Diffuse idiopathic skeletal hyperostosis. Multilevel degenerative disc disease. Impression: 1. No evidence of pulmonary embolism. 2. Progressive confluent areas of consolidation within both lungs compared to 06/28/2024. Findings are on a background generalized ground-glass opacification and interlobular septal thickening. Primary differential consideration remains infectious/multifocal pneumonia. Given history of CLL, pulmonary lymphoproliferative disease/malignancy is a differential consideration; however, is felt to be less likely given time frame of development. Recommend radiographic follow-up to ensure resolution. 3. Mediastinal, hilar and upper abdominal lymphadenopathy. CT chest 06/28: Attestation: I have reviewed the pertinent imaging results. Radiologist's impression: Airway: Normal tracheobronchial tree. Lungs: New multifocal consolidations. The largest is in the left upper lobe and measures 8 centimeters. There are several other nodular consolidations elsewhere. No necrosis or cavitation. Immediately adjacent to the consolidations there is ground-glass opacification and fine interlobular septal thickening. This is on a background of diffuse ground-glass opacification with scattered areas of mild smooth interlobular septal thickening. Appearance of the lungs has worsened since the comparison exam. Pleura: Trace bilateral pleural effusions are smaller than before. No pneumothorax. Lymph nodes: Left axillary lymphadenopathy. The largest left axillary lymph node measures 2.1 x 1.2 cm on series 2, image 30. Multi station mediastinal adenopathy. The largest left anterior mediastinal/prevascular lymph node measures 2.3 x 2.0 centimeters on series 2, image 24. the right paratracheal lymph node measures 2.7 x 1.7 cm on series 2, image 39. No definite change since prior accounting for slight differences in positioning. Large subcarinal lymph node is unchanged. Bilateral hilar lymph nodes are enlarged and unchanged. Right axillary lymph nodes are enlarged and unchanged. No cardiophrenic or retrocrural adenopathy. Mediastinum: No pneumomediastinum. Heart and great vessels: No pericardial effusion. Normal cardiac chamber size. Scattered atherosclerotic plaques. No aortic aneurysm. Normal caliber main pulmonary artery. Mitral valve clip. Chest wall: Mild chest wall edema. Small subdermal cyst just to the left of midline in the upper back/lower neck. Upper abdomen: [place] periportal and retroperitoneal adenopathy. Mild bilateral urinary tract dilatation. Bones: No fractures. No focal bone lesions. IMPRESSION: 1. New multifocal consolidative opacities in both lungs. Appearance of the lungs has worsened since the previous exam. Leading differential is infection. Noninfectious interstitial pneumonias and hemorrhage could also be considered. Malignancy less likely given rapid development. 2. No substantial change in multi station thoracic and abdominal adenopathy. Discharge Plan Discharge Disposition: [facility] Discharge Location: [facility] Date of Admission: 06/28/24 14:42 Attending Provider on Discharge: Sherie Garcia Primary Care Provider: GLENNA THOMAS Condition: Guarded Discharge Orders: Transfer of Care to Other Hospital (ORDER); Ordered 06/30/24 Ordered By: Sherie Garcia Discharge Comments: Patient discharged to [place] in stable condition with non-emergent EMS Oxygen: Yes (P.r.n., up with activity) Oxygen Delivery Method: Nasal Cannula Urinary Catheter: No Services not available here: Pulmonology, Oncology
[2024-06-30 15:30] VITALS: PULSE 85; PULSE 89; RESP 18
[2024-06-30 15:34] VITALS: BP 144/74; PULSE 89; RESP 18; TEMP 37.2; O2SAT 94
[2024-06-30] MEDS: 0.9 % SODIUM CHLORIDE 250 ml IV (16:17)
== END 2024-06-30 16:20 | disposition short-term general hospital (02) | DRG 194 ==
LOC: ED 07:46 → MEDSURG 11:31
PROVIDERS: Physician Assistant; Admitting Provider Family Medicine; Emergency Provider Family Medicine; PCP Student in an Organized Health Care Education/Training Program; Visit Provider Family Medicine
DX: J18.9 Pneumonia, unspecified organism (principal); C91.10 Chronic lymphocytic leukemia of B-cell type not having achieved remission; D84.9 Immunodeficiency, unspecified; E87.1 Hypo-osmolality and hyponatremia; D84.821 Immunodeficiency due to drugs; R04.2 Hemoptysis; N13.8 Other obstructive and reflux uropathy; J12.3 Human metapneumovirus pneumonia; I48.0 Paroxysmal atrial fibrillation; J70.4 Drug-induced interstitial lung disorders, unspecified; T45.1X5A Adverse effect of antineoplastic and immunosuppressive drugs, initial encounter; D64.81 Anemia due to antineoplastic chemotherapy; Z79.60 Long term (current) use of unspecified immunomodulators and immunosuppressants; D63.8 Anemia in other chronic diseases classified elsewhere; Z79.01 Long term (current) use of anticoagulants; I25.10 Atherosclerotic heart disease of native coronary artery without angina pectoris; N40.1 Benign prostatic hyperplasia with lower urinary tract symptoms; E03.9 Hypothyroidism, unspecified; Z85.820 Personal history of malignant melanoma of skin; Z85.46 Personal history of malignant neoplasm of prostate
CPT/HCPCS: 36415; 71260; 80048; 82565; 83880; 84145; 85025; 85027; 86140; 87070; 87449; 87899; 94664; 97112; 97116; 97161; 97165; 97530; 97535; 99284; 99285; A9270; J0456; J0743; J7050; J7512; Q9967

== ENCOUNTER 2024-06-30 16:18 | Outpatient (CLI) | payer MEDICARE, BC, SELFPAY | END 2024-06-30 16:19 | disposition home or self-care (01) | LOC: AMB 07-08 08:00 | PROVIDERS: PCP Student in an Organized Health Care Education/Training Program; Visit Provider Emergency Medicine Emergency Medical Services | DX: J18.9 Pneumonia, unspecified organism (principal); R04.2 Hemoptysis; J12.3 Human metapneumovirus pneumonia | CPT/HCPCS: A0425; A0427 ==

== ENCOUNTER 2024-08-02 13:35 | Outpatient (REF) | payer MEDICARE, BC, SELFPAY ==
[2024-08-02 13:53] LABS: INR 1.87 (0.91-1.10); Prothrombin Time 22.6 Seconds
== END 2024-08-02 13:36 | disposition home or self-care (01) ==
LOC: NPINS 13:35
PROVIDERS: PCP Student in an Organized Health Care Education/Training Program; Visit Provider Student in an Organized Health Care Education/Training Program
DX: I48.11 Longstanding persistent atrial fibrillation (principal)
CPT/HCPCS: 85610

== ENCOUNTER 2024-08-20 20:39 | Outpatient (CLI) | payer MEDICARE, BC, SELFPAY | END 2024-08-20 20:40 | disposition home or self-care (01) | LOC: SLEEP 20:41 | PROVIDERS: PCP Student in an Organized Health Care Education/Training Program; Visit Provider Internal Medicine | DX: G47.33 Obstructive sleep apnea (adult) (pediatric) (principal) | CPT/HCPCS: 95811 ==

== ENCOUNTER 2024-08-28 11:29 | Outpatient (CLI) | payer MEDICARE, BC, SELFPAY ==
[2024-08-28 11:59] LABS: Potassium* 4.2 mmol/L (3.6-5.1)
[2024-08-28 12:02] LABS: Alanine Aminotransferase* 65 U/L (4-50); Alkaline Phosphatase* 100 U/L (40-150)
== END 2024-08-28 11:30 | disposition home or self-care (01) ==
LOC: LAB 11:31
PROVIDERS: PCP Student in an Organized Health Care Education/Training Program; Visit Provider Physician Assistant
DX: C91.10 Chronic lymphocytic leukemia of B-cell type not having achieved remission (principal); D84.9 Immunodeficiency, unspecified; Z79.2 Long term (current) use of antibiotics
CPT/HCPCS: 36415; 80187; 84075; 84132; 84460

== ENCOUNTER 2024-09-04 11:05 | Outpatient (RCR) | payer MEDICARE, BC, SELFPAY ==
[2024-09-04 11:29] LABS: Potassium* 3.9 mmol/L (3.6-5.1)
[2024-09-04 11:31] LABS: Alkaline Phosphatase* 154 U/L (40-150)
[2024-09-04 11:32] LABS: Alanine Aminotransferase* 61 U/L (4-50)
== END 2025-03-19 07:33 | disposition home or self-care (01) ==
LOC: NPINS 11:05
PROVIDERS: PCP Student in an Organized Health Care Education/Training Program; Visit Provider Physician Assistant
DX: Z79.2 Long term (current) use of antibiotics (principal)
CPT/HCPCS: 80187; 84075; 84132; 84460

== ENCOUNTER 2024-09-11 11:34 | Emergency (ER) | payer MEDICARE, BC, SELFPAY ==
--- OUTSIDE RECORDS SUMMARY | 2024-09-11 11:36 | XMS_ITS | Encounter Summary ---
Author Organization [facility] Address [address] [place] [address] Care Team Providers Care Animation Camera Operator Name Role Phone Elsewhere, Pcp Primary Care Provider Unavailabl e Encounter Details Date Type Department Care Team (Latest Contact Info) Description 06/30/2024 Intake [facility] Social History Tobacco Use Types Packs/Day Years Used Date Smoking Tobacco: Never Smokeless Tobacco: Never Alcohol Use Standard Drinks/Week Comments Never 0 (1 standard drink = 0.6 oz pur e alcohol) [facility] Utilities Answer Date Recorded In the past 12 months has th e electric, gas, oil, or water company threatened to shut off services in your home? No 07/01/2024 Humiliation, Afraid, Rape, and Kick questionnair e Answer Date Recorded Within the last year, have y ou been afraid of your partner or ex-partner? No 06/30/2024 Within the last year, have y ou been humiliated or emotionally abused in other ways by your partner or ex-partner? No Within the last year, have y ou been kicked, hit, slapped, or otherwise physically hurt by your partner or ex-partner? No 06/30/2024 Within the last year, have y ou been raped or forced to have any kind of sexual activity by your partner or ex-partner? No 06/30/2024 Social Connection and Isolation Panel [NHANES] A nswer Date Recorded In a typical week, how many times do you talk on the phone with family, friends, or neighbors? Once a week 06/30/2021 How often do you get togethe r with friends or relatives? Once a week 06/30/2021 How often do you attend mormon or taoism serv ices? Never 06/30/2021 Do you belong [...] at all 06/30/2021 [facility] [...] the money to buy more. Never true 07/01/19 25 Within the past 12 months, t he food you bought just didn't last and you didn't have money to get more. Never true 07/01/2024 PRAPARE - Transportation Answer Date Re corded In the past 12 months, has l ack of transportation kept you from medical appointments or from getting medications? No 06/07 In the past 12 months, has l ack of transportation kept you from meetings, work, or from getting things needed for daily living? No 07/01/2024 Depression Answer Date Recor ded PHQ-9 Total [...] your living situation today? I have a [facility] place to live 07/01/2024 Education Answer Date Recorded What is the highest level of school you have completed or the highest degree you have received? Professional school degree (e.g., MD, DDS, DVM, GRACIELA) 06/30/2021 Sex and Gender Information Value Date Recorded Sex Assigned at Male 06/30/2021 12:19 PM MIDDLE SCHOOL DIRECTOR Legal Sex Male 7:31 AM CDT Gender Identity Male 06/30/2021 12:19 PM MIDDLE SCHOOL DIRECTOR Sexual Orientation Straight 06/30/2021 12 :19 PM MIDDLE SCHOOL DIRECTOR documented as of this encounter Functional Status * Intimate Partner Violence Question Answer Date of Assessment Author Within the last year, have y ou been humiliated or emotionally abused in other ways by your partner or ex-partner? No 06/30/2024 9:00 PM MIDDLE SCHOOL DIRECTOR Erlinda Lombardo, M.S.N., R.N. Within the last year, have y ou been afraid of your partner or ex-partner? No 06/30/2024 9:00 PM MIDDLE SCHOOL DIRECTOR Mony Lombardo , M.S.N., R.N. Within the last year, have y ou been raped or forced to have any kind of sexual activity by your partner or ex-partner? No 06/30/2024 9:00 PM MIDDLE SCHOOL DIRECTOR Swetha Lombardo, M.S.N., R.N. Within the last year, have y ou been kicked, hit, slapped, or otherwise physically hurt by your partner or ex-partner? No 06/30/2024 9:00 PM MIDDLE SCHOOL DIRECTOR Swetha Lombardo M.S.N., R.N. documented as of this encounter Progress Notes * Enoch Stacy M.S.W., [place]. - 06/30/2024 11:21 AM CST [facility]: ATC referral SUBJECTIVE Referral received from Admissions and Transfer Center on 06/30/24, as part of hospital transfer request from [facility], (phone: [phone], fax: [phone]). OBJECTIVE This patient was not accepted for transfer prior to the assessment process. This is a 78 y.o. year old male from [address] [place] [phone]. The patient was admitted to their facility on 06/28/24 for shortness of breath. The physician is requesting transfer. The patient and family is aware of, and agrees with, the request to transfer. Reason for transfer request: specialty care not locally available and continuity of care. Patient is alert and oriented, able to make their own decisions. Referring facility reports the following information: Oxygen: Patient is not requiring supplemental oxygen. Bariatric equipment: Patient does not require bariatric equipment. Mobility: ambulating independently with no assistive device ADLs: Patient does not require assistance with activities of daily living. Prior to admission, the patient was living at home independently by self. Wound care: No concerns Diet: regular diet but on a fluid restriction currently Isolation precautions: No concerns Dialysis: None IV Antibiotics: Primaxin Q6 Behavioral concerns: No concerns Psychiatric concerns: No concerns Legal concerns: No concerns Financial concerns: No concerns Family concerns: patient's approximately two-three weeks ago Multiple hospitalizations: Previously hospitalized with pneumonia on 06/13/24 Patient has the following supports: two daughters, Angelique and Radha, and son-in-law Anticipated discharge disposition according to referring facility: Home Self Care ASSESSMENT / PLAN It appears that minimal barriers to discharge planning have been identified as noted above. PLAN: I have discussed that in the event the patient is transferred here the social cost of travel such as lodging, meals, and transport home are the personal responsibility of the patient and family. Theyhave agreed to relay this information to the family. Chance Hudson, Lang 06/30/2024 LE SCHOOL DIRECTOR documented in this encounter Plan of Treatment Upcoming Encounters Date Type Department Care Team (Late st Contact Info) Description 09/24/2024 7:45 AM CDT Appointment Department of Radiology, [facility], in [place], [place] [address] [place] [phone] Julio Soto M.D. [address] [place] [phone] 09/24/2024 9:30 AM CDT Diagnostic Division of Pulmonary Medicine in [place], [place] [address] [place] [phone] Marilu Castaneda P.A.-C., M.S. [address] [place] [phone] 09/24/2024 10:40 AM CDT Appointment Department of Laboratory Medicine and Pathology, [facility] in [place], [place] [address] [place] [phone] Marilu Castaneda P.A.-C., M.S. [address] [place] [phone] 09/24/2024 2:30 PM CDT Office Visit Section of Infectious Diseases in [place], [place] [address] [place] [phone] Julio Soto M.D. [address] [place] [phone] documented as of this encounter Visit Diagnoses Not on filedocumented in this encounter Additional Health Concerns Infection Onset Date Last Indicated Resolved Time Protective Environment 09/20/2022 09/20/202208/30 5:23 AM CDT COVID19 Pending 06/30/2024 07/01/2024 07/01/2024 5 :47 PM MIDDLE SCHOOL DIRECTOR COVID19 Pending 07/01/2024 07/02/2024 07/02/2024 1 0:25 AM MIDDLE SCHOOL DIRECTOR Human metapneumovirus 07/02/2024 07/02/20242024 6:10 AM MIDDLE SCHOOL DIRECTOR COVID19 Pending 07/02/2024 07/02/2024 07/02/2024 1 1:47 PM MIDDLE SCHOOL DIRECTOR Assessment Noted Time PHQ-9 Depression Total Score: 6 07/17/19 20 10:26 AM MIDDLE SCHOOL DIRECTOR documented as of this encounter Care Teams Animation Camera Operator Relationship Specialty Start Date End Date Elsewhere, Pcp PCP - General Centrifugal Separator 06/27/19 documented as of this encounter
--- OUTSIDE RECORDS SUMMARY | 2024-09-11 11:36 | XMS_ITS ---
Author Organization [facility] Address [address] [place] [address] Care Team Providers Care Fraud Analyst Name Role Phone Elsewhere, Pcp Primary Care Provider Unavailabl e Adult OPAT Service Episode Status:Enrolled (Active) Start date:07/04/2024 Enrollment date:07/07/2024 Related program episode:OPAT/COpAT Program (Active) Continued Care and Services Coordination
--- OUTSIDE RECORDS SUMMARY | 2024-09-11 11:36 | XMS_ITS ---
Author Organization [facility] Address [address] [place] [address] Care Team Providers Care Medical Leader Name Role Phone Elsewhere, Pcp Primary Care Provider Unavailabl e Active Problems * This document contains information received from the source organization and may not represent a complete record from that organization. 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 Past Treatment and Therapy Plans Infusion Therapy 1 Plan Name Start Date Discontinue Date Treatment Medications Discontinue Reason Plan Provider TIXAGEVIMAB-CILGAV IMAB (LUCAS) - EMERGENCY USE AUTHORIZATION 08/23/2021 08/31/2021 No medications scheduled. Therapy Complete Fermin Lloyd M.B.B.S.
--- OUTSIDE RECORDS SUMMARY | 2024-09-11 11:36 | XMS_ITS ---
Author Organization [facility] Address [address] [place] [address] Care Team Providers Care Size Mixer Name Role Phone Elsewhere, Pcp Primary Care Provider Unavailabl e OPAT/COpAT Program Status:Enrolled (Active) Start date:07/04/2024 Enrollment date:07/07/2024 Related service episodes:Adult OPAT Service Episode (Active) Continued Care and Services Coordination
--- OUTSIDE RECORDS SUMMARY | 2024-09-11 11:37 | XMS_ITS | Encounter Summary ---
Author Organization [facility] Address [address] [place] [address] Care Team Providers Care Clinical Education Manager Name Role Phone Elsewhere, Pcp Primary Care Provider Unavailabl e Encounter Details Date Type Department Care Team (Late st Contact Info) Description 09/04/2024 Orders Only Section of Infectious Diseases in [place], [place] [address] [place] [phone] External, Ordering ProviderAnnemarie Social History Tobacco Use Types Packs/Day Years Used Date Smoking Tobacco: Never Smokeless Tobacco: Never Alcohol Use Standard Drinks/Week Comments Never 0 (1 standard drink = 0.6 oz pur e alcohol) [facility] Utilities Answer Date Recorded In the past 12 months has e [employer], gas, oil, or water [employer] threatened to shut off services in your home? No 07/19/2024 Humiliation, Afraid, Rape, and Kick questionnair e Answer Date Recorded Within the last year, have y ou been afraid of your partner or ex-partner? No 07/19/2024 Within the last year, have y ou been humiliated or emotionally abused in other ways by your partner or ex-partner? No Within the last year, have y ou been kicked, hit, slapped, or otherwise physically hurt by your partner or ex-partner? No 07/19/2024 Within the last year, have y ou been raped or forced to have any kind of sexual activity by your partner or ex-partner? No 07/19/2024 Social Connection and Isolation Panel [NHANES] A nswer Date Recorded In a typical week, how many times do you talk on the phone with family, friends, or neighbors? Once a week 06/30/2021 How often do you get togethe r with friends or relatives? Once a week 06/30/2021 How often do you attend restoration or oriental orthodox serv ices? Never 06/30/2021 [...] and heating? Not hard at all 06/30/2021 [facility] of Occupat ional Health - Occupational Stress [...] the money to buy more. Never true 07/19/19 25 Within the past 12 months, t he food you bought just didn't last and you didn't have money to get more. Never true 07/19/2024 PRAPARE - Transportation Answer Date Re corded In the past 12 months, has l ack of transportation kept you from medical appointments or from getting medications? No 07/07 In the past 12 months, has l ack of transportation kept you from meetings, work, or from getting things needed for daily living? No 07/19/2024 Depression Answer Date Recor ded PHQ-9 Total [...] your living situation today? [facility] 07/19/2024 Education Answer Date Recorded What is the highest level of school you have completed or the highest degree you have received? Professional school degree (e.g., MD, DDS, DVM, GRACIELA) 06/30/2021 Sex and Gender Information Value Date Recorded Sex Assigned at Male 06/30/2021 12:19 PM REGISTERED NURSING PROFESSOR Legal Sex Male 7:31 AM CDT Gender Identity Male 06/30/2021 12:19 PM REGISTERED NURSING PROFESSOR Sexual Orientation Straight 06/30/2021 12 :19 PM REGISTERED NURSING PROFESSOR documented as of this encounter Functional Status * Are you deaf or do you have serious difficulty hearing? Answer Date of Assessment Author No 07/01/2024 10:08 AM Cheryl Mensah M.S.Kathrine, L.G.S.W. * Are you blind or do you have serious difficulty seeing, even when wearing glasses? Answer Date of Assessment Author No 07/01/2024 10:08 AM Cheryl Mensah M.S.Kathrine, L.G.S.W. * Do you have serious difficulty walking or climbing stairs? Answer Date of Assessment Author No 07/01/2024 10:08 AM Cheryl Mensah M.SWyatt, L.G.S.W. * Do you have serious difficulty dressing or bathing? Answer Date of Assessment Author No 07/01/2024 10:08 AM Cheryl Mensah M.S.W., Jing. * Because of a physical, mental, or emotional condition, do you have serious difficulty doing errandsalone such as visiting the doctor? Answer Date of Assessment Author No 07/01/2024 10:08 AM Cheryl Mensah M.S.W., Jing. documented as of this encounter Mental Status * Because of a physical, mental, or emotional condition, do you have serious difficulty concentrating, remembering, or making decisions? (5 years old or older) Answer Entry Date Author No 07/01/2024 10:08 AM Cheryl Mensah M.S.W., Jing. documented in this encounter Plan of Treatment Upcoming Encounters Date Type Department Care Team (Late st Contact Info) Description 09/24/2024 7:45 AM CDT Appointment Department of Radiology, [facility] in [place], [place] [address] [place] [phone] Julio Soto M.D. [address] [place] [phone] 09/24/2024 9:30 AM CDT Diagnostic Division of Pulmonary Medicine in [place], [place] [address] [place] [phone] Marilu Castaneda P.A.-C., M.S. [address] [place] [phone] 09/24/2024 10:40 AM CDT Appointment Department of Laboratory Medicine and Pathology, [facility] in [place], [place] [address] [place] [phone] Marilu Castaneda P.A.-C., M.S. [address] [place] [phone] 09/24/2024 2:30 PM CDT Office Visit Section of Infectious Diseases in [place], [place] [address] [place] [address] Julio Soto M.D. [address] [place] [phone] documented as of this encounter Procedures Procedure Name Priority Date/Time Associated Diagnosis Comments ALANINE AMINOTRANSFERASE (ALT), S/P Routine 09/04/2024 10:35 AM CDT POTASSIUM, S/P Routine 09/04/2024 10:35 AM CDT ALKALINE PHOSPHATASE, S/P Routine 09/04/2024 10:35 AM CDT documented in this encounter Results * (ABNORMAL) Alkaline Phosphatase (09/04/2024 10:35 AM CDT) EXT Alkaline Phosphatase 154(H) 40 - 150 U/L [facility] 09/04/2024 10:3 5 AM CDT Narrative [employer] [facility] LOCATION [facility] - 09/04/2024 3:00 PM CDT Source result document attached to Order Number [id number] ([id number]) dated 09/04/2024. External results verified in Extract by Jazmín Bean on 09/04/2024 at 02:59 PM. us Ordering Provider External M.DBuddy LAB BLOOD ADD-ON Final Result [employer] [facility] LOCATION [facility] [address] [phone] * Potassium (09/04/2024 10:35 AM CDT) EXT Potassium 3.9 3.6 - 5.1 mmol/L [facility] 09/04/2024 10:3 5 AM CDT Narrative [employer] [facility] - 09/04/2024 3:00 PM CDT Source result document attached to Order Number [id number] ([id number]) dated 09/04/2024. External results verified in Extract by Jazmín Bean on 09/04/2024 at 02:59 PM. us Ordering Provider External MBony LAB BLOOD ADD-ON Final Result Performing Organization Address City/[facility]/ZIP Co de Phone Number [facility] LOCATION GROUP [facility] [address] [id number] [phone] * (ABNORMAL) ALT (Alanine Aminotransferase) (09/04/2024 10:35 AM CDT) EXT ALT 61(H) 4 - 50 U/L [facility] 09/04/2024 10:3 5 AM CDT Narrative [facility] - 09/04/2024 3:00 PM CDT External results verified in Extract by Jazmín Bean on 09/04/2024 at 02:59 PM. us Ordering Provider External Annemarie LAB BLOOD ADD-ON Final Result Performing Organization Address [facility] Co de Phone Number [facility] [address] [phone] documented in this encounter Visit Diagnoses Not on filedocumented in this encounter Additional Health Concerns Assessment Noted Time PHQ-9 Depression Total Score: 6 07/17/19 20 10:26 AM REGISTERED NURSING PROFESSOR documented as of this encounter Care Teams Clinical Education Manager Relationship Specialty Start Date End Date Elsewhere, Pcp PCP - General Commissioner Public Works 06/27/19 documented as of this encounter
--- OUTSIDE RECORDS SUMMARY | 2024-09-11 11:37 | XMS_ITS | Encounter Summary ---
Author Organization [facility] Address [address] [place] [address] Care Team Providers Care Decorating Supervisor Name Role Phone Elsewhere, Pcp Primary Care Provider Unavailabl e Reason for Visit * Reason Comments OPAT Encounter Details Date Type Department Care Team (Late st Contact Info) Description 08/31/2024 Patient Outreach Section of Infectious Diseases in [place], [place] [address] [place] [phone] Suzi Cummins RPeg [address] [place] [phone] OPAT Social History Tobacco Use Types Packs/Day Years Used Date Smoking Tobacco: Never Smokeless Tobacco: Never Alcohol Use Standard Drinks/Week Comments Never 0 (1 standard drink = 0.6 oz pur e alcohol) [facility] Utilities Answer Date Recorded In the past 12 months has [facility] [email or web address], gas, oil, or water [employer] threatened to shut off services in your [...] How often do you attend baptism or evangelical serv ices? Never 06/30/2021 Do [...] and heating? Not hard at all 06/30/2021 [facility] of Occupat ional Health - Occupational Stress [...] the money to buy more. Never true 02/13/20 25 Within the past 12 months, t [...] your living situation today? I have a [facility] place to live 07/19/2024 Education Answer Date Recorded What is the highest level of school you have completed or the highest degree you have received? Professional school degree (e.g., MD, DDS, DVM, GRACIELA) 06/30/2021 Sex and Gender Information Value Date Recorded Sex Assigned at Male 06/30/2021 12:19 PM DEPUTY REGISTER OF DEEDS Legal Sex Male 7:31 AM CDT Gender Identity Male 06/30/2021 12:19 PM DEPUTY REGISTER OF DEEDS Sexual Orientation Straight 06/30/2021 12 :19 PM DEPUTY REGISTER OF DEEDS documented as of this encounter Functional Status * Are you deaf or do you have serious difficulty hearing? Answer Date of Assessment Author No 07/01/2024 10:08 AM Cheryl Mensah M.S.Sancho., L.G.S.W. * Are you blind or do you have serious difficulty seeing, even when wearing glasses? Answer Date of Assessment Author No 07/01/2024 10:08 AM Cheryl Mensah M.S.W., L.G.S.W. * Do you have serious difficulty walking or climbing stairs? Answer Date of Assessment Author No 07/01/2024 10:08 AM Cheryl Mensah M.S.W., Jing. * Do you have serious difficulty dressing [...] Mensah M.S.W., Jing. documented in this encounter Progress Notes * Sheila Atkins Pharm.D., R.Ph. - 09/05/2024 2:23 PM CDT OPAT Pharmacist Phone Outreach for Therapeutic Drug Monitoring The patient was not seen in person or examined, and the findings are based on phone discussion. Patient is on posaconazole at 300 mg PO once daily. Serum level was 0.9 mcg/mL and goal is > 1.25 mcg/mL. LFTs are slightly elevated. Spoke to patient and confirmed that he had not missed an doses of posaconazole. He typically takes the medication between 1030 and 1130 am each morning. Level is not at goal. Assessment/Plan change dose of posaconazole to 400 mg daily . posaconazole drug level monitoring to be obtained on 09/11 (patient already had other labs scheduled for this day). The patient expressed understanding of the plan and had no further questions. They are aware of theOPAT contact information for non-urgent antimicrobial related questions. documented in this encounter Nursing Notes * Angelique Townsend R.N. - 09/05/2024 9:22 AM CDT OPAT NOTE - LAB REVIEW Name Phone Number OPAT Lab: [facility] ( ) [phone] Problem: Outpatient Antimicrobial Therapy Monitoring Description: OPAT/COpAT: -Follow up scheduled 09/24/24 -IFD Managing Service/Provider: [facility] Medications: Posaconazole Start Date: 07/04/24, End date: TBD Goal: Patient will obtain drug level Description: Posaconazole, random or trough (Notify pharmacist or provider if <1250 ng/mL or >2000 ng/mL.) In two weeks, then monthly Outcome: Intervention Intervention: Drug level reviewed Description: Patient will obtain drug level monthly Note: Drug level result from 2024 is viewable in the MCR record--listed as External Labs (received via fax, which has been uploaded to Document Viewer/Media). outside of OPAT guideline parameters Intervention: Patient assessment regarding [id number] drug level(s) completed Note: Date/time of lab draw: 2024 at 11:37 AM Date/time of last dose prior to lab draw: ? Any missed doses?: ? Interpretation and Action: Will review with OPAT pharmacist regarding low Posaconazole level. Reference used: Guideline for Antimicrobial Therapy Monitoring for the Division of Infectious Diseases - [id number] OPAT RN attempted to reach Mr. Jensen via telephone to inquire about Posaconazole dosing time priorto labs drawn on 2024 and if there were any missed doses. Voicemail as left requesting a return call. OPAT number provided. * Suzi Cummins R.N. - 08/31/2024 2:02 PM CDT OPAT NOTE - LAB REVIEW Name Phone Number OPAT Lab: [facility] ( ) [phone] Problem: Outpatient Antimicrobial Therapy Monitoring Description: OPAT/COpAT: -Follow up scheduled 09/24/24 -IFD Managing Service/Provider: [facility] Medications: Posaconazole Start Date: 07/04/24, End date: TBD Goal: Patient will obtain safety monitoring labs Description: Labs required: ALT, Alk Phos, and Potassium in two weeks, then monthly Baseline Creatinine: N/A Intervention: Labs reviewed Note: Lab results from 2024 are viewable in the MCR record. Within OPAT guideline parameters Interpretation and Action: No change in plan as per OPAT Practice Guideline. Reference used: Guideline for Antimicrobial Therapy Monitoring for the Division of Infectious Diseases - [id number] documented in this encounter Miscellaneous Notes * Addendum Note - Sheila Atkins Pharm.D., R.Ph. - 09/05/2024 2:34 PM CDT Addended by: SHEILA ATKINS on: 09/05/2024 02:34 PM Modules accepted: Orders documented in this encounter Plan of Treatment Upcoming Encounters Date Type Department Care Team (Late st Contact Info) Description 09/24/2024 7:45 AM CDT Appointment Department of Radiology, [facility], in [place], [place] [address] [place] [phone] Julio Soto M.D. [address] [place] [phone] 09/24/2024 9:30 AM CDT Diagnostic Division of Pulmonary Medicine in [place], [place] [address] [place] [phone] Marilu Castaneda P.A.-C., M.S. [address] [place] [phone] 09/24/2024 10:40 AM CDT Appointment Department of Laboratory Medicine and Pathology, [facility], in [place], [place] [address] [place] [phone] Marilu Castaneda P.A.-C., M.S. [address] [place] [phone] 09/24/2024 2:30 PM CDT Office Visit Section of Infectious Diseases in [place], [place] [address] [place] [phone] Julio Soto M.D. 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
--- OUTSIDE RECORDS SUMMARY | 2024-09-11 11:37 | XMS_ITS | Clinical Summary ---
Author Organization [facility] Address [address] [place] [address] Care Team Providers Care Gm Video Name Role Phone Elsewhere, Pcp Primary Care Provider Unavailabl e Source Comments Patient records contain information from all sites at [facility]. For routine questions regarding patient records, call [phone] during business hours, M-F 8:00 AM - 5:00 PM Central Time. Record requests for emergency care only can be directed to [phone] at any time.[facility] Allergies Active Allergy Reactions Criticality Noted Date Comments Ibrutinib Rash 11/04/2020 Penicillins Hives (Reselect Reaction) *reaction when teenager, Penicillin G. Medications * This document contains information received from the source organization and may not represent a complete record from that organization. ALPRAZolam (XANAX) 0.25 mg tablet Take 0.125 mg by mouth every 12 (twelve) hours as needed for anxiety. 9 Active calcium carbonate (calcium carbonate) 1000 mg (400 mg calcium) chewable tablet Chew 1 tablet 3 (three) times a day as needed for indigestion. Active magnesium chloride (Slow-Mag) 71.[address] tablet Take 1 tablet (71.5 mg total) by mouth daily. 2 Active tamsulosin (FLOMAX) 0.4 mg 24 hr capsule Take 0.4 mg by mouth daily. 2 Active lisinopriL 10 mg tablet Take 1.5 tablets (15 mg total) by mouth 2 (two) times a day. 270 tablet 3 4 Active omeprazole (PriLOSEC) [address] capsule Take 1 capsule (20 mg total) by mouth daily before morning meal. 30 capsule 2 5 Active levothyroxine 112 mcg tablet Take 112 mcg by mouth daily before morning meal. Active amLODIPine (Norvasc) 5 mg tablet Take 5 mg by mouth daily. Active DME OxygenIndicatio ns:Apnea Sleep Obstructive,Hyp oxia DME Order - for details see Order Report 1 each 5 Active ferrous sulfate 325 mg (65 mg iron) tablet Take 1 tablet (65 mg of iron total) by mouth every other day. 30 tablet 2 5 Active amiodarone (Pacerone) 200 mg tablet Take 1 tablet (200 mg total) by mouth daily. 90 tablet 3 5 Active metoprolol tartrate (Lopressor) 50 mg tablet Take 1 tablet (50 mg total) by mouth 2 (two) times a day. 180 tablet 3 5 Active warfarin (Jantoven) 5 mg tablet Take 1.5 tablets (total 7.5 mg) by mouth on 07/29/2024 as directed. INR recheck on 07/30/2024. 135 tablet 3 07/29/2024 2:01 PM ROENTGENOLOGIST 5 Active posaconazole (NoxafiL) [address] tabletIndicatio ns:Aspergillus infection Take 3 tablets (300 mg total) by mouth daily Indications: Aspergillus infection. 180 tablet 2 5 Active furosemide (Lasix) 20 mg tablet Take 1 tablet (20 mg total) by mouth daily. 30 tablet 3 5 Active Active Problems Problem Noted Date Diagnosed Date Atrial Fibrillation [...] Primary 09/16/2008 Anxiety Generalized Disorder 09/16/2008 Encounters * This document contains information received from the source organization and may not represent a complete record from that organization. Date Type Department Care Team Description 09/04/2024 Orders Only Section of Infectious Diseases in [place], [place] [address] [place] [address] External, Ordering ProviderAnnemarie 08/31/2024 Patient Outreach Section of Infectious Diseases in [place], [place] [address] [place] [address] Suzi Cummins R.N. OPAT 08/30/2024 Orders Only Department of Oncology in [place], [place] [address] [place] [address] Birdie Hurtado M.D. 08/29/2024 9:00 AM CDT Office Visit Department of Cardiovascular Medicine in [place], [place] [address] [place] [address] Marilu Castaneda P.A.-C., M.S. Monitoring For Therapeutic Drug Therapy (Primary Dx) 2024 9:30 AM CDT Clinical Communication Virtual Review in [address] [phone] Pre-visit Intake 2024 Orders Only Section of Infectious Diseases in [place], [place] [address] [place] [phone] External, Ordering Provider, M.Brielle 2024 Orders Only Section of Infectious Diseases in [address] [phone] External, Ordering Provider, M.DBuddy 08/27/2024 Patient Outreach Section of Infectious Diseases in [address] [phone] Alicia Tavarez R.N. OPAT 08/21/2024 Orders Only Department of Oncology in [address] [phone] Birdie Hurtado M.D. 08/13/2024 3:00 PM CDT Office Visit Section of Infectious Diseases in [address] [phone] Catherine Garcia M.D. Chesdachai, Supavit, M.D. Aspergillosis (HCC) (Primary Dx); Pneumonia 08/13/2024 10:30 AM CDT - 08/13/2024 11:59 PM CDT Hospital Encounter Department of Radiology, [facility], in [address] [phone] Catherine Garcia M.D. Pneumonia Discharge Disposition: Home or Self Care 08/13/2024 Patient Outreach Section of Infectious Diseases in [address] [phone] Alicia Tavarez R.N. OPAT 08/03/2024 Patient Outreach Section of Infectious Diseases in [address] [phone] Stacey Hernandez R.N. OPAT (Lab Results ) 08/02/2024 Orders Only Department of Oncology in [place], [place] [address] [place] [phone] Birdie Hurtado M.D. 08/02/2024 Orders Only Department of Cardiovascular Medicine in [address] [phone] Trudy Padilla, PBuddyA.-C. 07/31/2024 Orders Only Department of Cardiovascular Medicine in [place], [place] [address] [place] [phone] Vanessa Brown, P.A.-C. Acute Pulmonary Histoplasmosis Capsulati (HCC) 07/31/2024 Clinical Communication Department of Cardiovascular Medicine in [address] [phone] Trudy Padilla, P.A.-C. REDO quantity for RX 07/30/2024 Clinical Communication Department of Cardiovascular Medicine in [address] [phone] Trudy Padilla, P.A.-C. release med to pharmacy 07/29/2024 Orders Only Department of Cardiovascular Medicine in [address] [phone] Trudy Padilla, P.A.-C. 07/24/2024 Clinical Communication Department of Cardiovascular Medicine in [place], [place] [address] [place] [phone] Vanessa Brown P.A.-C. 07/23/2024 9:50 AM ROENTGENOLOGIST Anesthesia Event Department of Cardiovascular Disease [address] [place] [phone] Radha Timmons APRN, CRNA 07/20/2024 8:45 AM ROENTGENOLOGIST Ancillary Procedure Department of Nursing 07/20/2024 Clinical Communication Department of Cardiovascular Medicine in [place], [place] [address] [place] [phone] Guerda Carias 07/20/2024 Patient Outreach Section of Infectious Diseases in [place], [place] [address] [place] [phone] Stacey Hernandez R.N. 07/19/2024 9:58 AM ROENTGENOLOGIST - 07/29/2024 1:49 PM ROENTGENOLOGIST Hospital Encounter [facility], Fifth Floor [address] [place] [phone] Matthew Carlin M.D. Hayes, Sharonne N, M.D. Ommen, Steve R, M.D. Idris Parsons M.D., Ph.D. Malcolm Dennison M.Carlos. Atrial Fibrillation Unspecified (HCC) (Primary Dx); Apnea Sleep Obstructive; Hypoxia; Acute Pulmonary Histoplasmosis Capsulati (HCC) Discharge Disposition: Home or Self Care 07/18/2024 Documentation Division of Pulmonary Medicine in [place], [place] [address] [place] [phone] Cam Vyas M.D. 07/13/2024 Clinical Communication Division of [facility], [place], [place] [address] [place] [phone] Lauren Echeverria M.D. Rx Denial (Posaconazole 100MG dr tablet) 07/12/2024 Clinical Communication Division of Pulmonary Medicine in [place], [place] [address] [place] [phone] Lauren Echeverria M.D. Posaconazole Rx 07/11/2024 Clinical Communication Division of [facility] Internal Medicine, [facility] in [place], [place] [address] [place] [phone] Lauren Echeverria M.D. Rx Prior Authorization (posaconazole (NoxafiL) [address] tablet) 07/09/2024 Clinical Communication [facility] [address] [place] [phone] Lauren Echeverria M.D. Post Hospital Follow-up 07/09/2024 Documentation Section of Infectious Diseases in [place], [place] [address] [place] [phone] Catherine Garcia M.D. 07/09/2024 Patient Outreach Section of Infectious Diseases in [place], [place] [address] [place] [phone] Hannah Benavides OPALorene 07/07/2024 Orders Only [facility] Bety Francois [address] [place] [phone] Luisa Esqueda I., Pharm.D., R.Ph. 07/04/2024 Clinical Communication [facility] [address] [place] [phone] Catherine Garcia M.D. Post Hospital Follow-up 07/04/2024 Orders Only Department of Oncology in [place], [place] [address] [place] [phone] Birdie Hurtado M.D. 07/02/2024 2:43 PM ROENTGENOLOGIST - 07/02/2024 3:56 PM ROENTGENOLOGIST Surgery [facility] [address] [place] [phone] Lamberto Schaefer M.D. BRONCHOSCOPY FLEXIBLE: BRONCHOALVEOLAR LAVAGE - IMMUNOCOMPROMISED HOST OR NON-IMMUNOCOMPROMISED HOST 07/02/2024 1:53 PM ROENTGENOLOGIST Anesthesia Event [facility] [address] [place] [phone] Iza Kumar APRN, DARLEEN, BrielleN.PMelissa West M.D. 07/02/2024 1:45 PM ROENTGENOLOGIST Ancillary Procedure Department of General Surgery 07/02/2024 1:40 PM ROENTGENOLOGIST Ancillary Procedure Department of General Surgery 07/02/2024 Orders Only Division of Pulmonary Medicine in [place], [place] [address] [place] [phone] Lamberto Schaefer M.D. 07/02/2024 Orders Only Department of Oncology in [place], [place] [address] [place] [phone] Birdie Hurtado M.D. 06/30/2024 7:00 PM ROENTGENOLOGIST Ancillary Procedure Department of Radiology in [place], [place] [address] [place] [phone] Magaly Shen M.D. 06/30/2024 5:55 PM ROENTGENOLOGIST - 07/07/2024 5:49 PM ROENTGENOLOGIST Hospital Encounter [facility], [facility], [facility], Sixth Floor [address] [place] [address] Amanda Encinas M.D. Farah, Wigdan H, M.B.B.S., M.P.H. Pneumonia (Primary Dx); Debility [R53.81]; Atrial Fibrillation Longstanding Persistent (HCC); Acute Pulmonary Histoplasmosis Capsulati (HCC); Apnea Sleep Obstructive; Hypoxia Discharge Disposition: Home or Self Care 06/30/2024 Intake [facility] 06/30/2024 Orders Only Department of Oncology in [address] [phone] Birdie Hurtado M.D. 06/22/2024 Orders Only Department of Oncology in [address] [phone] Birdie Hurtado M.D. 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 from Last 3 Months Immunizations Immunization Administration Dates Next Due H1N1 All Forms [...] In the past 12 months has e [employer], oil, or water Parenthoods threatened to shut off services in your [...] How often do you attend judaism or jainism serv ices? Never 06/30/2021 Do [...] heating? Not hard at all 06/30/2021 [facility] [place] of Occupat ional Health - Occupational Stress [...] money to buy more. Never true 07/19/19 Within the past 12 months, t he [...] your living situation today? I [place] to live 07/19/2024 Education Answer Date Recorded What is the highest level of school you have completed or the highest degree you have received? Professional school degree (e.g., MD, DDS, DVM, GRACIELA) 06/30/2021 Sex and Gender Information Value Date Recorded Sex Assigned at Male 06/30/2021 12:19 PM ROENTGENOLOGIST Legal Sex Male 7:31 AM CDT Gender Identity Male 06/30/2021 12:19 PM ROENTGENOLOGIST Sexual Orientation Straight 06/30/2021 12 :19 PM ROENTGENOLOGIST Last Filed Vital Signs Vital Sign Reading Time Taken Comments Blood Pressure 143/77 08/29/2024 8:53 AM CDT Pulse 62 08/29/2024 8:53 AM CDT Temperature 36.8 C (98.2 F) 08/13/2024 2:29 PM CDT Respiratory Rate 19 07/29/2024 1:00 PM ROENTGENOLOGIST Oxygen Saturation 96% 07/29/2024 1:00 PM ROENTGENOLOGIST Inhaled Oxygen Concentration - - Weight 73.9 kg (163 lb 0.5 oz) 08/29/2024 8:53 A M CDT Height 176.9 cm (5' 9.65) 08/29/2024 8:53 AM CD T Body Mass Index 23.63 08/29/2024 8:53 AM CDT Plan of Treatment Upcoming Encounters Date Type Department Care Team (Late st Contact Info) Description 09/24/2024 7:45 AM CDT Appointment Department of Radiology, [facility] in [place], [place] [address] [place] [phone] Julio Soto M.D. [address] [place] [phone] 09/24/2024 9:30 AM CDT Diagnostic Division of Pulmonary Medicine in [place], [place] [address] [place] [phone] Marilu Castaneda P.Swetha.-C., M.S. [address] [place] [phone] 09/24/2024 10:40 AM CDT Appointment Department of Laboratory Medicine and Pathology, [facility] in [place], [place] [address] [place] [phone] Marilu Castaneda P.A.-C., M.S. [address] [place] [phone] 09/24/2024 2:30 PM CDT Office Visit Section of Infectious Diseases in [place], [place] [address] [place] [phone] Julio Soto M.D. [address] [place] [phone] Health Maintenance Due Date Last Done Comments Hepatitis C Screening 1945 Zoster Vaccines (1 of 2) 12/07/2010 10/12/2010 RSV vaccine - (32-36 weeks) or 60+ years (1 - 1-dose 75+ series) 2020 DTaP,Tdap,and Td Vaccines (2 - Td or Tdap) 09/11/2022 09/11/2012, 01/19/2006 Depression Screening (Annual PHQ-2) 06/06/2024 COVID-19 Vaccine (8 - Pfizer risk 2023- season) 2024 02/22/2024, 03/21/2023, 03/02/2022, Additional history exists Office Visit for Blood Pressure Check / Re-check 11/29/2024 08/29/2024 Thyroid Stimulating Hormone (TSH) test for thyroid function 07/19/2025 07/19/2024, 03/13/2024, 01/12/2024, Additional history exists Creatinine Level (Kidney Function Test) 07/26/2025 07/26/2024, 07/25/2024, 07/24/2024, Additional history exists Sodium Level 07/26/2025 07/26/2024, 07/07, 07/24/2024, Additional history exists Potassium Level 09/04/2025 09/04/2024, 08/05, 07/26/2024, Additional history exists Pneumococcal vaccine (50+ years) Completed 12/20/2014, 10/12/2010 Influenza Vaccine Completed 03/21/2024, , 04/02/2022, Additional history exists Fall Risk Screen (Annual) Completed 08/29/2024 HPV Vaccines Aged Out No longer eligi ble based on patient's age to complete this topic IPV Vaccines Aged Out No longer eligi ble based on patient's age to complete this topic Medical Devices Implanted Type Area Manager Education Device Identifier Shelf Expiration Date Model / Serial / Lot Clp Tania Clip Del Sys Xtr - [id number] Implanted:Qty : 1 on 06/28/2019 by Hernandez Echevarria M.D. at [facility] Mitralclip N/A: Heart Reese 03/21/2020 [id number] / / [id number] Description:Mitral Valve Ocular Lens Ocular Lens Eye Description:Right Ocular Lens Ocular Lens Eye Description:Left Procedures Procedure Name Priority Date/Time Associated Diagnosis Comments ALKALINE PHOSPHATASE, S/P Routine 09/04/2024 10:35 AM CDT POTASSIUM, S/P Routine 09/04/2024 10:35 AM CDT ALANINE AMINOTRANSFERASE (ALT), S/P Routine 09/04/2024 10:35 AM CDT ECG Routine 08/29/2024 8:03 AM CDT Atrial Fibrillation Unspecified (HCC) Regurgitation Mitral POSACONAZOLE, S Routine 2024 11:37 AM CDT ALKALINE PHOSPHATASE, S/P Routine 2024 11:37 AM CDT ALANINE AMINOTRANSFERASE (ALT), S/P Routine 2024 11:37 AM CDT POTASSIUM, S/P Routine 2024 11:[address] CHEST WITHOUT IV CONTRAST RAD - Routine (most inpatients and all outpatients) 08/13/2024 11:03 AM CDT Pneumonia HEPARIN LEVEL ANTI-XA ASSAY, P Routine 07/29/2024 9:53 AM ROENTGENOLOGIST PROTHROMBIN TIME (PT), P Routine 07/29/2024 9:53 AM ROENTGENOLOGIST CBC WITHOUT DIFFERENTIAL, B Routine 07/29/2024 9:53 AM ROENTGENOLOGIST ECG Routine 07/29/2024 7:29 AM ROENTGENOLOGIST ECG Timed 07/29/2024 1:14 AM ROENTGENOLOGIST ADULT OXYGEN THERAPY Routine 07/28/2024 8:00 AM ROENTGENOLOGIST ECG Routine 07/28/2024 6:50 AM ROENTGENOLOGIST HEPARIN LEVEL ANTI-XA ASSAY, P Routine 07/28/2024 6:21 AM ROENTGENOLOGIST PROTHROMBIN TIME (PT), P Routine 07/28/2024 6:21 AM ROENTGENOLOGIST CBC WITHOUT DIFFERENTIAL, B Routine 07/28/2024 6:21 AM ROENTGENOLOGIST ADULT OXYGEN THERAPY Routine 07/27/2024 8:00 PM ROENTGENOLOGIST ADULT OXYGEN THERAPY Routine 07/27/2024 8:00 AM ROENTGENOLOGIST ECG Routine 07/27/2024 7:28 AM ROENTGENOLOGIST HEPARIN LEVEL ANTI-XA ASSAY, P Routine 07/27/2024 7:25 AM ROENTGENOLOGIST PROTHROMBIN TIME (PT), P Routine 07/27/2024 7:25 AM ROENTGENOLOGIST CBC WITHOUT DIFFERENTIAL, B Routine 07/27/2024 7:25 AM ROENTGENOLOGIST HEPARIN LEVEL ANTI-XA ASSAY, P Timed 07/26/2024 10:37 PM ROENTGENOLOGIST ADULT OXYGEN THERAPY Routine 07/26/2024 8:00 PM ROENTGENOLOGIST HEPARIN LEVEL ANTI-XA ASSAY, P Timed 07/26/2024 3:37 PM ROENTGENOLOGIST ECG Routine 07/26/2024 10:28 AM ROENTGENOLOGIST ADULT OXYGEN THERAPY Routine 07/26/2024 8:00 AM ROENTGENOLOGIST HEPARIN LEVEL ANTI-XA ASSAY, P Routine 07/26/2024 8:00 AM ROENTGENOLOGIST BASIC METABOLIC PANEL, S/P Routine 07/26/2024 8:00 AM ROENTGENOLOGIST PROTHROMBIN TIME (PT), P Routine 07/26/2024 8:00 AM ROENTGENOLOGIST CBC WITHOUT DIFFERENTIAL, B Routine 07/26/2024 8:00 AM ROENTGENOLOGIST ADULT OXYGEN THERAPY Routine 07/25/2024 8:00 PM ROENTGENOLOGIST ECG Routine 07/25/2024 9:13 AM ROENTGENOLOGIST HEPARIN LEVEL ANTI-XA ASSAY, P Routine 07/25/2024 8:27 AM ROENTGENOLOGIST BASIC METABOLIC PANEL, S/P Routine 07/25/2024 8:27 AM ROENTGENOLOGIST PROTHROMBIN TIME (PT), P Routine 07/25/2024 8:27 AM ROENTGENOLOGIST CBC WITHOUT DIFFERENTIAL, B Routine 07/25/2024 8:27 AM ROENTGENOLOGIST ADULT OXYGEN THERAPY Routine 07/25/2024 8:01 AM ROENTGENOLOGIST ADULT OXYGEN THERAPY Routine 07/24/2024 8:01 PM ROENTGENOLOGIST ADULT OXYGEN THERAPY Routine 07/24/2024 8:01 AM ROENTGENOLOGIST BASIC METABOLIC PANEL, S/P Routine 07/24/2024 7:45 AM ROENTGENOLOGIST HEPATIC FUNCTION PANEL, S Routine 07/24/2024 7:45 AM ROENTGENOLOGIST HEPARIN LEVEL ANTI-XA ASSAY, P Routine 07/24/2024 7:45 AM ROENTGENOLOGIST PROTHROMBIN TIME (PT), P Routine 07/24/2024 7:45 AM ROENTGENOLOGIST CBC WITHOUT DIFFERENTIAL, B Routine 07/24/2024 7:45 AM ROENTGENOLOGIST ADULT OXYGEN THERAPY Routine 07/23/2024 8:01 PM ROENTGENOLOGIST ECG STAT 07/23/2024 10:27 AM ROENTGENOLOGIST (MERVAT) 2D AND LIMITED DOPPLER Routine 07/23/2024 10:02 AM ROENTGENOLOGIST AIRWAY MANAGEMENT Routine 07/23/2024 9:50 AM ROENTGENOLOGIST ADULT OXYGEN THERAPY Routine 07/23/2024 8:00 AM ROENTGENOLOGIST HEPARIN LEVEL ANTI-XA ASSAY, P Timed 07/23/2024 7:06 AM ROENTGENOLOGIST MAGNESIUM, S Routine 07/23/2024 7:06 AM ROENTGENOLOGIST PROTHROMBIN TIME (PT), P Routine 07/23/2024 7:06 AM ROENTGENOLOGIST CBC WITHOUT DIFFERENTIAL, B Routine 07/23/2024 7:06 AM ROENTGENOLOGIST HEPARIN LEVEL ANTI-XA ASSAY, P Timed 07/23/2024 12:47 AM ROENTGENOLOGIST ADULT OXYGEN THERAPY Routine 07/22/2024 8:00 PM ROENTGENOLOGIST HEPARIN LEVEL ANTI-XA ASSAY, P Timed 07/22/2024 5:07 PM ROENTGENOLOGIST ADULT OXYGEN THERAPY Routine 07/22/2024 8:00 AM ROENTGENOLOGIST HEPARIN LEVEL ANTI-XA ASSAY, P Routine 07/22/2024 7:59 AM ROENTGENOLOGIST PROTHROMBIN TIME (PT), P Routine 07/22/2024 7:59 AM ROENTGENOLOGIST CBC WITHOUT DIFFERENTIAL, B Routine 07/22/2024 7:59 AM ROENTGENOLOGIST BASIC METABOLIC PANEL, S/P Routine 07/22/2024 7:59 AM ROENTGENOLOGIST ADULT OXYGEN THERAPY Routine 07/21/2024 8:01 PM ROENTGENOLOGIST HEPARIN LEVEL ANTI-XA ASSAY, P Timed 07/21/2024 7:13 PM ROENTGENOLOGIST HEPARIN LEVEL ANTI-XA ASSAY, P Timed 07/21/2024 11:52 AM ROENTGENOLOGIST ADULT OXYGEN THERAPY Routine 07/21/2024 8:01 AM ROENTGENOLOGIST AMIODARONE LEVEL, S Routine 07/21/2024 2:43 AM ROENTGENOLOGIST HEPARIN LEVEL ANTI-XA ASSAY, P Timed 07/21/2024 2:42 AM ROENTGENOLOGIST PROTHROMBIN TIME (PT), P Routine 07/21/2024 2:42 AM ROENTGENOLOGIST MAGNESIUM, S Routine 07/21/2024 2:42 AM ROENTGENOLOGIST CBC WITHOUT DIFFERENTIAL, B Routine 07/21/2024 2:42 AM ROENTGENOLOGIST BASIC METABOLIC PANEL, S/P Routine 07/21/2024 2:42 AM ROENTGENOLOGIST ADULT OXYGEN THERAPY Routine 07/20/2024 8:01 PM ROENTGENOLOGIST HEPARIN LEVEL ANTI-XA ASSAY, P Timed 07/20/2024 6:55 PM ROENTGENOLOGIST PROTHROMBIN TIME (PT), P STAT 07/20/2024 1:07 PM ROENTGENOLOGIST HEPARIN LEVEL ANTI-XA ASSAY, P STAT 07/20/2024 10:59 AM ROENTGENOLOGIST ACTIVATED PARTIAL THROMBOPLASTIN TIME (APTT), P STAT 07/20/2024 10:58 AM ROENTGENOLOGIST NURSING IMAGE EXAM Routine 07/20/2024 8:44 AM ROENTGENOLOGIST BASIC METABOLIC PANEL, S/P Routine 07/20/2024 8:37 AM ROENTGENOLOGIST CBC WITHOUT DIFFERENTIAL, B Routine 07/20/2024 8:37 AM ROENTGENOLOGIST ADULT OXYGEN THERAPY Routine 07/20/2024 8:01 AM ROENTGENOLOGIST ADULT OXYGEN THERAPY Routine 07/19/2024 9:18 PM ROENTGENOLOGIST ADULT OXYGEN THERAPY Routine 07/19/2024 9:18 PM ROENTGENOLOGIST ADULT OXYGEN THERAPY Routine 07/19/2024 9:[address] CHEST ANGIOGRAM AND PULMONARY ARTERIES WITH IV CONTRAST RAD - Semiurgent (Fast; most ED patients; some inpatients) 07/19/2024 4:20 PM ROENTGENOLOGIST HC URINALYSIS AUTO WO MICRO Routine 07/19/2024 2:50 PM ROENTGENOLOGIST MICROSCOPIC MANUAL STAT 07/19/2024 2:46 PM ROENTGENOLOGIST PH, U STAT 07/19/2024 2:46 PM ROENTGENOLOGIST DIPSTICK, U STAT 07/19/2024 2:46 PM ROENTGENOLOGIST OSMOLALITY, U STAT 07/19/2024 2:46 PM ROENTGENOLOGIST URINALYSIS WITH MICROSCOPIC STAT 07/19/2024 2:46 PM ROENTGENOLOGIST BACTERIAL CULTURE, AEROBIC + SUSC, URINE STAT 07/19/2024 2:46 PM ROENTGENOLOGIST LACTATE, POCT, B STAT 07/19/2024 1:07 PM ROENTGENOLOGIST HC T4 FREE STAT 07/19/2024 1:07 PM ROENTGENOLOGIST THYROPEROXIDASE (TPO) ABS, S STAT 07/19/2024 1:07 PM ROENTGENOLOGIST THYROID FUNCTION CASCADE, S STAT 07/19/2024 1:07 PM ROENTGENOLOGIST D-DIMER, P STAT 07/19/2024 1:07 PM ROENTGENOLOGIST HEPATIC FUNCTION PANEL, S STAT 07/19/2024 1:07 PM ROENTGENOLOGIST TROPONIN T, 2H/6H REFLEX, 5TH GEN, P Timed 07/19/2024 1:07 PM ROENTGENOLOGIST DX CHEST AP OR PA AND LATERAL 2 VIEWS RAD - Semiurgent (Fast; most ED patients; some inpatients) 07/19/2024 10:23 AM ROENTGENOLOGIST GLUCOSE POCT, B STAT 07/19/2024 10:15 AM ROENTGENOLOGIST PROTHROMBIN TIME (PT), P STAT 07/19/2024 10:15 AM ROENTGENOLOGIST TROPONIN T, BASELINE, 5TH GEN, P STAT 07/19/2024 10:15 AM ROENTGENOLOGIST SPSMA RESULT STAT 07/19/2024 10:14 AM ROENTGENOLOGIST MAGNESIUM, S STAT 07/19/2024 10:14 AM ROENTGENOLOGIST CBC WITH DIFFERENTIAL, B STAT 07/19/2024 10:14 AM ROENTGENOLOGIST BASIC METABOLIC PANEL, S/P STAT 07/19/2024 10:14 AM ROENTGENOLOGIST ECG STAT 07/19/2024 10:05 AM ROENTGENOLOGIST IMMUNOGLOBULINS (IGG, IGA, AND IGM), S Routine 07/07/2024 10:09 AM ROENTGENOLOGIST IMMUNOGLOBULINS (IGG, IGA, AND IGM), S Timed 07/07/2024 5:29 AM ROENTGENOLOGIST CBC WITH DIFFERENTIAL, B Routine 07/07/2024 5:29 AM ROENTGENOLOGIST BASIC METABOLIC PANEL, S/P Routine 07/07/2024 5:29 AM ROENTGENOLOGIST POSACONAZOLE, S Timed 07/07/2024 5:28 AM ROENTGENOLOGIST TRANSFUSE RED BLOOD CELLS Routine 07/06/2024 4:09 PM ROENTGENOLOGIST PREPARE RED BLOOD CELLS Routine 07/06/19 2:14 PM ROENTGENOLOGIST TYPE AND SCREEN Routine 07/06/2024 2:14 PM ROENTGENOLOGIST RT TO ARRANGE FOR HOME DME Routine 07/06/2024 11:50 AM ROENTGENOLOGIST NOCTURNAL OXYGEN STUDY - RT Routine 07/06/2024 11:50 AM ROENTGENOLOGIST ADULT OXYGEN THERAPY Routine 07/06/2024 8:01 AM ROENTGENOLOGIST CBC WITH DIFFERENTIAL, B Routine 07/06/2024 12:17 AM ROENTGENOLOGIST BASIC METABOLIC PANEL, S/P Routine 07/06/2024 12:17 AM ROENTGENOLOGIST ADULT OXYGEN THERAPY Routine 07/05/2024 8:00 PM ROENTGENOLOGIST OSMOLALITY, U Routine 07/05/2024 10:47 AM ROENTGENOLOGIST SODIUM, RANDOM, U Routine 07/05/2024 10:47 AM ROENTGENOLOGIST OSMOLALITY, S Routine 07/05/2024 10:19 AM ROENTGENOLOGIST ECG Routine 07/05/2024 9:27 AM ROENTGENOLOGIST ADULT OXYGEN THERAPY Routine 07/05/2024 8:00 AM ROENTGENOLOGIST PHOSPHORUS (INORGANIC), S Routine 07/05/2024 12:12 AM ROENTGENOLOGIST MAGNESIUM, S Routine 07/05/2024 12:12 AM ROENTGENOLOGIST CBC WITH DIFFERENTIAL, B Routine 07/05/2024 12:12 AM ROENTGENOLOGIST BASIC METABOLIC PANEL, S/P Routine 07/05/2024 12:12 AM ROENTGENOLOGIST ADULT OXYGEN THERAPY Routine 07/04/2024 8:01 PM ROENTGENOLOGIST ADULT OXYGEN THERAPY Routine 07/04/2024 8:00 AM ROENTGENOLOGIST DX CHEST PORTABLE 1 VIEW RAD - Routine (most inpatients and all outpatients) 07/04/2024 7:38 AM ROENTGENOLOGIST C-REACTIVE PROTEIN (CRP), S/P Routine 07/04/2024 12:19 AM ROENTGENOLOGIST CBC WITH DIFFERENTIAL, B Routine 07/04/2024 12:19 AM ROENTGENOLOGIST BASIC METABOLIC PANEL, S/P Routine 07/04/2024 12:19 AM ROENTGENOLOGIST ECG STAT 07/03/2024 8:47 PM ROENTGENOLOGIST ADULT OXYGEN THERAPY Routine 07/03/2024 8:00 PM ROENTGENOLOGIST CRYPTOCOCCUS AG SCREEN W/TITER Routine 07/03/2024 1:29 PM ROENTGENOLOGIST HISTOPLASMA/BLASTOMYCES AG, EIA, S Routine 07/03/2024 1:29 PM ROENTGENOLOGIST ADULT OXYGEN THERAPY Routine 07/03/2024 8:01 AM ROENTGENOLOGIST CBC WITH DIFFERENTIAL, B Routine 07/03/2024 12:18 AM ROENTGENOLOGIST BASIC METABOLIC PANEL, S/P Routine 07/03/2024 12:18 AM ROENTGENOLOGIST ADULT OXYGEN THERAPY Routine 07/02/2024 8:01 PM ROENTGENOLOGIST ADULT OXYGEN THERAPY Routine 07/02/2024 2:36 PM ROENTGENOLOGIST CYTOLOGY NON-INFORMATION OPERATOR Routine 07/02/2024 2:07 PM ROENTGENOLOGIST Pneumonia HC REF SUSCEPT MACROBROTH EA DRUG Routine 07/02/2024 2:07 PM ROENTGENOLOGIST CELL COUNT AND DIFFERENTIAL, BROCHOALVEOLAR LAVAGE Routine 07/02/2024 2:07 PM ROENTGENOLOGIST Pneumonia ISAVUCONAZOLE SUSCEPTIBILITY TEST Routine 07/02/2024 2:07 PM ROENTGENOLOGIST AMPHOTERICIN B SUSCEPTIBILITY Routine 07/02/2024 2:07 PM ROENTGENOLOGIST VORICONAZOLE SUSCEPTIBILITY TESTING Routine 07/02/2024 2:07 PM ROENTGENOLOGIST POSACONAZOLE (POS) SUSCEPTIBILITY Routine 07/02/2024 2:07 PM ROENTGENOLOGIST SARS COV-2 RNA, PCR, VARIES Routine 07/02/2024 2:07 PM ROENTGENOLOGIST Pneumonia PNEUMONIA PANEL, PCR Routine 07/02/2024 2:07 PM ROENTGENOLOGIST Pneumonia PNEUMOCYSTIS PCR Routine 07/02/2024 2:07 PM ROENTGENOLOGIST Pneumonia BACTERIAL CULTURE, AEROBIC + SUSC, RESP Routine 07/02/2024 2:07 PM ROENTGENOLOGIST Pneumonia NOCARDIA STAIN Routine 07/02/2024 2:07 PM ROENTGENOLOGIST Pneumonia LEGIONELLA PCR Routine 07/02/2024 2:07 PM ROENTGENOLOGIST Pneumonia ASPERGILLUS AG, BAL Routine 07/02/2024 2:07 PM ROENTGENOLOGIST Pneumonia MYCOBACTERIAL CULTURE, V Routine 07/02/2024 2:07 PM ROENTGENOLOGIST Pneumonia FUNGAL SMEAR Routine 07/02/2024 2:07 PM ROENTGENOLOGIST Pneumonia LEGIONELLA CULTURE Routine 07/02/2024 2:07 PM ROENTGENOLOGIST Pneumonia ACID FAST SMEAR FOR MYCOBACTERIUM Routine 07/02/2024 2:07 PM ROENTGENOLOGIST Pneumonia GRAM STAIN Routine 07/02/2024 2:07 PM ROENTGENOLOGIST Pneumonia FUNGAL CULTURE, ROUTINE Routine 07/02/19 2:07 PM ROENTGENOLOGIST Pneumonia SURGERY IMAGE EXAM Routine 07/02/2024 1:45 PM ROENTGENOLOGIST SURGERY IMAGE EXAM Routine 07/02/2024 1:40 PM ROENTGENOLOGIST BRONCHOSCOPY FLEXIBLE: BRONCHOALVEOLAR LAVAGE - IMMUNOCOMPROMISED HOST OR NON-IMMUNOCOMPROMISED HOST 07/02/2024 1:24 PM ROENTGENOLOGIST Pneumonia PNEUMOCYSTIS PCR Routine 07/02/2024 12:21 PM ROENTGENOLOGIST ADULT OXYGEN THERAPY Routine 07/02/2024 8:01 AM ROENTGENOLOGIST RESPIRATORY PANEL, PCR, DEMAND PLANNING ANALYST Routine 07/02/2024 7:50 AM ROENTGENOLOGIST FUNGAL CULTURE, ROUTINE Routine 07/02/19 6:51 AM ROENTGENOLOGIST GRAM STAIN Routine 07/02/2024 6:51 AM ROENTGENOLOGIST BACTERIAL CULTURE, AEROBIC + SUSC, RESP Routine 07/02/2024 6:51 AM ROENTGENOLOGIST PNEUMONIA PANEL, PCR Routine 07/02/2024 6:51 AM ROENTGENOLOGIST BASIC METABOLIC PANEL, S/P Routine 07/02/2024 12:09 AM ROENTGENOLOGIST C-REACTIVE PROTEIN (CRP), S/P Routine 07/02/2024 12:09 AM ROENTGENOLOGIST CBC WITHOUT DIFFERENTIAL, B Routine 07/02/2024 12:09 AM ROENTGENOLOGIST HIV-1/-2 AG AND AB SCREEN, PLASMA Routine 07/02/2024 12:09 AM ROENTGENOLOGIST ADULT OXYGEN THERAPY Routine 07/01/2024 8:00 PM ROENTGENOLOGIST ACTIVATED PARTIAL THROMBOPLASTIN TIME (APTT), P Timed 07/01/2024 7:23 PM ROENTGENOLOGIST HISTOPLASMA/BLASTOMYCES AG, EIA, U Routine 07/01/2024 5:58 PM ROENTGENOLOGIST LEGIONELLA AG, U Routine 07/01/2024 5:58 PM ROENTGENOLOGIST STREPTOCOCCUS PNEUMONIAE AG, U Routine 07/01/2024 5:58 PM ROENTGENOLOGIST CRYPTOCOCCUS AG SCREEN W/TITER Routine 07/01/2024 12:16 PM ROENTGENOLOGIST ASPERGILLUS AG Routine 07/01/2024 12:16 PM ROENTGENOLOGIST ACTIVATED PARTIAL THROMBOPLASTIN TIME (APTT), P Timed 07/01/2024 11:53 AM ROENTGENOLOGIST ADULT OXYGEN THERAPY Routine 07/01/2024 8:00 AM ROENTGENOLOGIST HEPATIC FUNCTION PANEL, S Routine 07/01/2024 3:40 AM ROENTGENOLOGIST ACTIVATED PARTIAL THROMBOPLASTIN TIME (APTT), P Timed 07/01/2024 3:40 AM ROENTGENOLOGIST BASIC METABOLIC PANEL, S/P Routine 07/01/2024 3:40 AM ROENTGENOLOGIST CBC WITH DIFFERENTIAL, B Routine 07/01/2024 3:40 AM ROENTGENOLOGIST MRSA/STAPHYLOCOCCUS AUREUS, NASAL, BY PCR Routine 06/30/2024 10:07 PM ROENTGENOLOGIST ADULT OXYGEN THERAPY Routine 06/30/2024 8:01 PM ROENTGENOLOGIST BACTERIA / GERDA CULTURE, BLOOD Routine 06/30/2024 7:58 PM ROENTGENOLOGIST ACTIVATED PARTIAL THROMBOPLASTIN TIME (APTT), P STAT 06/30/2024 7:50 PM ROENTGENOLOGIST MAGNESIUM, S STAT 06/30/2024 7:50 PM ROENTGENOLOGIST RENAL FUNCTION PANEL, S STAT 06/30/19 7:50 PM ROENTGENOLOGIST HISTOPLASMA AB COMPFIX/IMMDIFF, S STAT 06/30/2024 7:50 PM ROENTGENOLOGIST (1, 3) [id number] (FUNGITELL), S STAT 06/30/2024 7:50 PM ROENTGENOLOGIST CBC WITH DIFFERENTIAL, B STAT 06/30/2024 7:49 PM ROENTGENOLOGIST BLASTOMYCES AB, EIA STAT 06/30/2024 7:49 PM ROENTGENOLOGIST COCCIDIOIDES AB SCREEN W/REFLEX, S STAT 06/30/2024 7:49 PM ROENTGENOLOGIST BACTERIA / GERDA CULTURE, BLOOD Routine 06/30/2024 7:49 PM ROENTGENOLOGIST ECG Routine 06/30/2024 7:18 PM ROENTGENOLOGIST INTERPRETATION OF OUTSIDE CT CHEST RAD - Routine (most inpatients and all outpatients) 06/30/2024 7:04 PM ROENTGENOLOGIST ADULT OXYGEN THERAPY Routine 06/30/2024 6:56 PM ROENTGENOLOGIST ADULT OXYGEN THERAPY Routine 06/30/2024 6:56 [address]IST OUTSIDE CT BODY Routine 06/30/2024 8:55 AM ROENTGENOLOGIST OUTSIDE CT BODY Routine 06/28/2024 5:35 AM [address]IST OUT[address]IDE CT BODY Routine 06/21/2024 12:30 [address] OUT[address]IDE [address] BODY Routine 06/14/2024 2:05 PM ROENTGENOLOGIST from Last 3 Months Results * (ABNORMAL) ALT (Alanine Aminotransferase) (09/04/2024 10:35 AM CDT) Only the most recent of2 resultswithin the time period is included. EXT ALT 61(H) 4 - 50 U/L [facility] 09/04/2024 10:3 5 AM CDT Narrative [facility] - 09/04/2024 3:00 PM CDT External results verified in Extract by Jazmín Bean on 09/04/2024 at 02:59 PM. us Ordering Provider External M.D. LAB BLOOD ADD-ON Final Result [facility] [address] [place] [address] * Potassium (09/04/2024 10:35 AM CDT) Only the most recent of2 resultswithin the time period is included. EXT Potassium 3.9 3.6 - 5.1 mmol/L [facility] 09/04/2024 10:3 5 AM CDT Narrative [facility] - 09/04/2024 3:00 PM CDT Source result document attached to Order Number [id number] ([id number]) dated 09/04/2024. External results verified in Extract by Jazmín Bean on 09/04/2024 at 02:59 PM. us Ordering Provider External Annemarie LAB BLOOD ADD-ON Final Result Performing Organization Address [facility] de Phone Number [facility] [address] [phone] * (ABNORMAL) Alkaline Phosphatase (09/04/2024 10:35 AM CDT) Only the most recent of2 resultswithin the time period is included. [facility] EXT Alkaline Phosphatase 154(H) 40 - 150 U/L [facility] 09/04/2024 10:3 5 AM CDT Narrative [facility] - 09/04/2024 3:00 PM CDT Source result document attached to Order Number [id number] ([id number]) dated 09/04/2024. External results verified in Extract by Jazmín Bean on 09/04/2024 at 02:59 PM. us Ordering Provider External Annemarie LAB BLOOD ADD-ON Final Result Performing Organization Address [facility] Phone Number [facility] [address] [phone] * ECG 12 Lead (08/29/2024 8:03 AM CDT) Only the most recent of12 resultswithin the time period is included. [facility] Ventricular Rate ECG/Min 68 BPM MUSE WV Interval 176 ms MUSE QRSD Interval 98 ms MUSE QT Interval 442 ms MUSE QTC Interval 469 ms MUSE P Hoffman 76 degrees MUSE R Hoffman 51 degrees MUSE T Wave Hoffman 35 degrees MUSE 08/29/2024 8:03 AM CDT 08/29/2024 8:05 AM CDT Impressions MUSE - 08/29/2024 8:05 AM CDT Sinus rhythm Premature atrial complexes Otherwise normal ECG When compared with ECG of 29-Jul-2024 07:29, Premature atrial complexes are now present WV interval has decreased Reviewed by DEB Mckenna Narrative Procedure Note Kelby Tavera M.D. - 08/29/2024 IMPRESSION: Sinus rhythm Premature atrial complexes Otherwise normal ECG When compared with ECG of 29-Jul-2024 07:29, Premature atrial complexes are now present WV interval has decreased Reviewed by DEB Mckenna us Marilu Castaneda P.A.-C., M.S. ECG ORDERABLES Fin al Result MUSE NA * Posaconazole (Noxafil), Level (2024 11:37 AM CDT) Only the most recent of2 resultswithin the time period is included. EXT Posaconazole level 0.9 >=0.8 ug/ml SCANNED REPORT 2024 11:3 7 AM CDT Narrative SCANNED REPORT - 09/05/2024 8:46 AM CDT External results verified in Extract by Essie Canela on 09/05/2024 at 08:41 AM. us Ordering Provider External M.DBuddy LAB BLOOD NON AD D-ON Final Result SCANNED REPORT * CT Chest without IV Contrast (08/13/2024 11:03 AM CDT) Anatomical Region Laterality Modality Chest, Thoracic RST LOS, Tho racic ARZ LOS, Thoracic FLA LOS N/A Computed Tomography, Compute d Tomography Impressions 08/13/2024 12:24 PM CDT 1. Since 07/19/2024, decrease in size and density of bilateral pulmonary opacities. Findings are consistent with infectious/inflammatory etiology. 2. Mild decrease in bilateral pleural effusions and nearly resolved interstitial septal thickening due to pulmonary edema. 3. No substantial change in thoracic lymphadenopathy. 4. Peripancreatic soft tissue at the splenic hilum appears mildly bulky compared to the prior exam. This is poorly assessed on noncontrast exam and may be artifactual due to volume averaging, or inflammatory due to pancreatitis. Please correlate with symptoms. Narrative 08/13/2024 12:24 PM CDT EXAM: CT CHEST WITHOUT IV CONTRAST COMPARISON: CT chest 07/19/2024. FINDINGS: Patchy consolidation in the left upper lobe has mildly decreased in size, measuring approximately 4.0 x 2.5 cm (series 3/image 161), compared to 4.3 x 3.3 cm at a similar level on the prior exam. A nodular consolidation anterior to it has also decreased in size (series 3/image 132). Additional areas of consolidation in right middle lobe (series 3/378) as well as a subcentimeter consolidative nodule in right upper lobe (3/236) and right lower lobe (3/339) have mildly decreased in size. Mildly decreased density of groundglass opacities throughout both lungs and significantly decreased interstitial septal thickening, likely due to pulmonary edema. The central airways are clear. Bilateral bronchial wall thickening. Right pleural effusion has decreased with trace residual effusion. Small left pleural effusion has mildly decreased. No pneumothorax. Again seen is extensive thoracic lymphadenopathy without substantial change. A few lymph nodes have slightly increased in size. For example, a 1.6 cm short axis left paratracheal lymph node has increased from 1.4 cm, 2.8 cm short axis right paratracheal lymph node (3/245) was previously 2.7 cm. 2.8 cm subcarinal lymphadenopathy has not substantially changed. Enlarged bilateral supraclavicular lymph nodes and axillary lymph nodes are also again seen with mildly increased prominence. Multiple small calcified hilar and mediastinal lymph nodes. Cardiomegaly with left atrial enlargement. Stable dilatation of the mid ascending aorta. Coronary artery and aortic valvular calcifications. Tania clip. Partially seen para-aortic lymphadenopathy in the abdomen. Tiny calcified granuloma in the liver. Nodular thickening of the left adrenal gland. Mild bulkiness adjacent to the pancreatic tail and splenic hilum (screenshot saved). Few punctate calcifications in the pancreas. Hypertrophic degenerative changes of the spine with stable loss of height of thoracic vertebral bodies. Demineralization. Old healed rib fractures. Unchanged sebaceous cyst or epidermal inclusion cyst in the upper back. Procedure Note Amira Gaming M.D. - 08/13/2024 EXAM: CT CHEST WITHOUT IV CONTRAST COMPARISON: CT chest 07/19/2024. FINDINGS: Patchy consolidation in the left upper lobe has mildly decreased in size,measuring approximately 4.0 x 2.5 cm (series 3/image 161), compared to 4.3x 3.3 cm at a similar level on the prior exam. A nodular consolidationanterior to it has also decreased in size (series 3/image 132). Additional areas of consolidation in rightmiddle lobe (series 3/378) as well as a subcentimeter consolidative nodulein right upper lobe (3/236) and right lower lobe (3/339) have mildlydecreased in size. Mildly decreased density of groundglass opacities throughout both lungsand significantly decreased interstitial septal thickening, likely due topulmonary edema. The central airways are clear. Bilateral bronchial wallthickening. Right pleural effusion has decreased with trace residual effusion. Smallleft pleural effusion has mildly decreased. No pneumothorax. Again seen is extensive thoracic lymphadenopathy without substantialchange. A few lymph nodes have slightly increased in size. For example, a1.6 cm short axis left paratracheal lymph node has increased from 1.4 cm,2.8 cm short axis right paratracheal lymph node (3/245) was previously 2.7 cm. 2.8 cm subcarinallymphadenopathy has not substantially changed. Enlarged bilateralsupraclavicular lymph nodes and axillary lymph nodes are also again seenwith mildly increased prominence. Multiple small calcified hilar and mediastinal lymph nodes. Cardiomegaly with left atrial enlargement. Stable dilatation of the midascending aorta. Coronary artery and aortic valvular calcifications. Mitraclip. Partially seen para-aortic lymphadenopathy in the abdomen. Tiny calcifiedgranuloma in the liver. Nodular thickening of the left adrenal gland. Mild bulkiness adjacent to the pancreatic tail and splenic hilum(screenshot saved). Few punctate calcifications in the pancreas. Hypertrophic degenerative changes of the spine with stable loss of heightof thoracic vertebral bodies. Demineralization. Old healed rib fractures.Unchanged sebaceous cyst or epidermal inclusion cyst in the upper back. IMPRESSION: 1. Since 07/19/2024, decrease in size and density of bilateral pulmonaryopacities. Findings are consistent with infectious/inflammatoryetiology. 2. Mild decrease in bilateral pleural effusions and nearly resolvedinterstitial septal thickening due to pulmonary edema. 3. No substantial change in thoracic lymphadenopathy. 4. Peripancreatic soft tissue at the splenic hilum appears mildly bulkycompared to the prior exam. This is poorly assessed on noncontrast examand may be artifactual due to volume averaging, or inflammatory due topancreatitis. Please correlate with symptoms. Catherine Garcia M.D. IMG CT PROCEDURES Final Result * (ABNORMAL) Prothrombin Time (PT) (07/29/2024 9:53 AM ROENTGENOLOGIST) Only the most recent of11 resultswithin the time period is included. Prothrombin Time, P 25.6(H) 9.4 - 12.5 sec 07/29/2024 10:51 AM ROENTGENOLOGIST DTL INR 2.3 0.9 - 1.1 07/29/2024 10:51 AM ROENTGENOLOGIST DTL Comment: ----ADDITIONAL INFORMATION---- Standard intensity warfarin therapeutic range: 2.0 to 3.0 High intensity warfarin therapeutic range: 2.5 to 3.5 Blood (Blood, Venous) 07/29/2024 9:53 AM ROENTGENOLOGIST 07/29/2024 10:21 AM ROENTGENOLOGIST Vanessa Brown P.A.-C. LAB BLOOD ADD-ON Final Result [facility] [address] [place] [address], [facility] DTL [facility] [address] [place] [address] * Heparin Anti-Xa Assay (07/29/2024 9:53 AM ROENTGENOLOGIST) Only the most recent of17 resultswithin the time period is included. Heparin Anti-Xa, P 0.41 IU/mL 2024 10:51 AM ROENTGENOLOGIST DTL Comment: UFH therapeutic range: 0.30-0.70 IU/mL LMWH therapeutic range: 0.50-1.00 IU/mL 0.50-1.00 IU/mL for twice daily dosing 1.00-2.00 IU/mL for once daily dosing (sample obtained 4-6 hours following subcutaneous injection) LMWH prophylactic range:0.10-0.30 IU/mL ----ADDITIONAL INFORMATION---- Heparin Anti-Xa is used to measure heparin concentrations in patients receiving low molecular weight heparin (LMWH) or unfractionated heparin (UFH). Blood (Blood, Venous) 07/29/2024 9:53 AM ROENTGENOLOGIST 07/29/2024 10:21 AM ROENTGENOLOGIST Trudy Padilla P.A.-C. LAB BLOOD NON ADD-ON Fin al Result [facility] [address] [place] [address], [facility] [address] [place] [address] * (ABNORMAL) CBC without Differential (07/29/2024 9:53 AM ROENTGENOLOGIST) Only the most recent of11 resultswithin the time period is included. Pathologist [facility] Hemoglobin 10.8(L) 13.2 - 16.6 g/dL 07/29/2024 10:31 AM ROENTGENOLOGIST DTL Hematocrit 34.9(L) 38.3 - 48.6 % 07/29/2024 10:31 AM ROENTGENOLOGIST DTL Erythrocytes 3.76(L) 4.35 - 5.65 x10(12)/L 07/29/2024 10:31 AM ROENTGENOLOGIST DTL MCV 92.8 78.2 - 97.9 fL 07/29/2024 10:31 AM ROENTGENOLOGIST DTL RBC Distrib Width 17.1(H) 11.8 - 14.5 % 07/29/2024 10:31 AM ROENTGENOLOGIST DTL Platelet Count 297 135 - 317 x10(9)/L 07/29/2024 10:31 AM ROENTGENOLOGIST DTL Leukocytes 44.1(H) 3.4 - 9.6 x10(9)/L 07/29/2024 10:31 AM ROENTGENOLOGIST DTL Blood (Blood, Venous) 07/29/2024 9:53 AM ROENTGENOLOGIST 07/29/2024 10:21 AM ROENTGENOLOGIST Vanessa Brown P.A.-C. LAB BLOOD ADD-ON Final Result [facility] [address] [place] [address], [facility] DTL [facility] [address] [place] [address] * (ABNORMAL) Basic Metabolic Panel (07/26/2024 8:00 AM ROENTGENOLOGIST) Only the most recent of14 resultswithin the time period is included. [facility] Potassium, S 4.5 3.6 - 5.2 mmol/L 07/26/2024 9:23 AM ROENTGENOLOGIST DTL Sodium, S 140 135 - 145 mmol/L 07/26/2024 9:23 AM ROENTGENOLOGIST DTL Chloride, S 105 98 - 107 mmol/L 07/26/2024 9:23 AM ROENTGENOLOGIST DTL Bicarbonate, S 23 22 - 29 mmol/L 07/26/2024 9:23 AM ROENTGENOLOGIST DTL Anion Gap 12 7 - 15 07/26/2024 9:23 AM ROENTGENOLOGIST DTL BUN (Blood Urea Nitrogen), S 13 8 - 24 mg/dL 07/26/2024 9:23 AM ROENTGENOLOGIST DTL Creatinine 1.00 0.74 - 1.35 mg/dL 07/26/2024 9:23 AM ROENTGENOLOGIST DTL Estimated GFR (eGFR) 77 >=60 mL/min/BSA 07/26/2024 9:23 AM ROENTGENOLOGIST DTL Comment: Estimated GFR calculated using the 2020 CKD_EPI creatinine equation. Calcium, Total, S 8.4(L) 8.8 - 10.2 mg/dL 07/26/2024 9:23 AM ROENTGENOLOGIST DTL Glucose, S 87 70 - 140 mg/dL 07/26/2024 9:23 AM ROENTGENOLOGIST DTL Blood (Blood, Venous) 07/26/2024 8:00 AM ROENTGENOLOGIST 07/26/2024 8:58 AM ROENTGENOLOGIST Vanessa Brown P.A.-C. LAB BLOOD ADD-ON Final Result [facility] [address] [place] [address], [facility] DTL [facility] [address] [place] [address] * (ABNORMAL) Hepatic Function Panel (07/24/2024 7:45 AM ROENTGENOLOGIST) Only the most recent of3 resultswithin the time period is included. Bilirubin, Total, S 0.9 0.0 - 1.2 mg/dL 07/24/2024 10:35 AM ROENTGENOLOGIST DTL Bilirubin, Direct, S 0.4(H) 0.0 - 0.3 mg/dL 07/24/2024 10:35 AM ROENTGENOLOGIST DTL Aspartate Aminotransferase (AST), S 32 8 - 48 U/L 07/24/2024 10:35 AM ROENTGENOLOGIST DTL Alanine Aminotransferase (ALT), S 14 7 - 55 U/L 07/24/2024 10:35 AM ROENTGENOLOGIST DTL Alkaline Phosphatase, S 81 40 - 129 U/L 07/24/2024 10:35 AM ROENTGENOLOGIST DTL Albumin, S 3.2(L) 3.5 - 5.0 g/dL 07/24/2024 10:35 AM ROENTGENOLOGIST DTL Protein, Total, S 4.6(L) 6.3 - 7.9 g/dL 07/24/2024 10:35 AM ROENTGENOLOGIST DTL Blood (Blood, Venous) 07/24/2024 7:45 AM ROENTGENOLOGIST 07/24/2024 8:46 AM ROENTGENOLOGIST Vanessa HubbardAUmesh LAB BLOOD ADD-ON Final Result [facility] [address] [place] [address], [facility] [address] [place] [address] * (MERVAT) 2D AND LIMITED DOPPLER (07/23/2024 10:02 AM ROENTGENOLOGIST) Ejection Fraction 55 CV EIMS Mallampati As documented in the RN pre-procedure assessment CV EIMS ASA Class IV MC CV EIMS Echo H and P 07/23/2024 09:29 CV EIMS Anatomical Region Laterality Modality Cardiac Electrop hysiology 07/23/2024 8:17 AM ROENTGENOLOGIST Impressions 07/23/2024 6:22 PM ROENTGENOLOGIST PRE-SEDATION ASSESSMENT & CONSENT (performed immediately prior to the start of the procedure at 07/23/2024 09:29): The goals, risks and alternatives to moderate sedation, cardioversion and the transesophageal echo were explained to the patient, questions were answered and consent was given to proceed. The physician proceduralist independently interviewed the patient in addition to a pertinent review of the patient's history, medication list, allergies, and review of systems, and the findings as documented in the medical record and the director of public relations. The physician independently performed a pertinent examination including a heart, airway, and lung assessment prior to the start of the procedure. The patient history and physical were deemed satisfactory to proceed with the planned level of sedation. Mallampati Assessment: As documented in the RN pre-procedure assessment. Sedation Plan: Transesophageal echo - moderate sedation. ASA physical status score: Class IV. Transesophageal echocardiogram performed by the physician home therapy teacher(s), as listed in this report. LEFT VENTRICLE:Mildly enlarged left ventricular chamber size. Estimated left ventricular ejection fraction 55%. No regional wall motion abnormalities. RIGHT VENTRICLE:Mildly enlarged right ventricular chamber size. Normal right ventricular systolic function. ATRIA:Enlarged left atrial size. Normal left atrial appendage. Left atrial appendage emptying velocity 30 cm/sec. No left atrial appendage thrombus. No spontaneous echo contrast identified in the left atrium and left atrial appendage. Enlarged right atrial size. CARDIAC VALVES:Trileaflet aortic valve. Morphologically normal aortic valve. No aortic valve regurgitation. Thickened mitral valve. 1 MitraClip(s) seen in a stable position with good tissue bridge between A2-P2. Indeterminate degree of mitral valve regurgitation. Morphologically normal pulmonary valve. Trivial pulmonary valve regurgitation. Morphologically normal tricuspid valve. Mild tricuspid valve regurgitation. OTHER ECHO FINDINGS:Enlarged ascending aorta diameter. Diffuse mild immobile (intimal thickening of 2-3 mm) atherosclerosis of the aortic arch. No atherosclerosis of the descending thoracic aorta. Normally connected pulmonary veins. Pulmonary artery bifurcation is normal. Normal superior vena cava. Agitated saline injection(s) performed during sedation. Tiny anterior pericardial effusion. [id number] shunt at atrial level. PROCEDURE:Transesophageal echocardiogram performed at the request of the primary staff services manager. Adult probe inserted without difficulty. See Sedation Narrator or other pertinent record in Epic for additional procedure and sedation information. Transesophageal echocardiogram completed without complications. Transgastric images acquired. CARDIOVERSION:Successful cardioversion with 120 joules after 1 attempt(s). For the complete report, see the Order-Level Documents. Narrative 07/23/2024 6:22 PM ROENTGENOLOGIST For the complete report, see the Order-Level Documents. Hemodynamics Heart Rate: 102 BPM Blood Pressure: 126 / 82 mmHg ECG: Atrial fibrillation Final Impressions 1. No intracardiac mass or thrombus identified. 2. 1 MitraClip(s) seen in a stable position with good tissue bridge between A2- P2. 3. Indeterminate degree of mitral valve regurgitation (eccentric, limited interrogation during this study, previously documented to be severe by transesophageal echocardiogram study of 01/13/2024 and transthoracic echocardiogram study of 01/12/2024). 4. Mildly enlarged left ventricular chamber size. 5. Estimated left ventricular ejection fraction 55%. 6. No regional wall motion abnormalities. 7. Vdvk-yz-qimjk shunt at atrial level , small, continuous. 8. Pleural effusion. 9. CARDIOVERSION: 10. Successful cardioversion with 120 joules after 1 attempt(s). Procedure Note Jose Olvera M.D., M.P.H. - 07/23/2024 For the complete report, see the Order-Level Documents. Hemodynamics Heart Rate: 102 BPM Blood Pressure: 126 / 82 mmHg ECG: Atrial fibrillation Final Impressions 1. No intracardiac mass or thrombus identified. 2. 1 MitraClip(s) seen in a stable position with good tissue bridgebetween A2- P2. 3. Indeterminate degree of mitral valve regurgitation (eccentric, limitedinterrogation during this study, previously documented to be severe bytransesophageal echocardiogram study of 01/13/2024 and transthoracicechocardiogram study of 01/12/2024). 4. Mildly enlarged left ventricular chamber size. 5. Estimated left ventricular ejection fraction 55%. 6. No regional wall motion abnormalities. 7. Vylx-ih-hqjqo shunt at atrial level , small, continuous. 8. Pleural effusion. 9. CARDIOVERSION: 10. Successful cardioversion with 120 joules after 1 attempt(s). Findings PRE-SEDATION ASSESSMENT & CONSENT (performed immediately prior to thestart of the procedure at 07/23/2024 09:29): The goals, risks andalternatives to moderate sedation, cardioversion and the transesophagealecho were explained to the patient, questions were answered and consentwas given to proceed. The physician proceduralist independentlyinterviewed the patient in addition to a pertinent review of the patient'shistory, medication list, allergies, and review of systems, and thefindings as documented in the medical record and the director of public relations. Thephysician independently performed a pertinent examination including aheart, airway, and lung assessment prior to the start of the procedure.The patient history and physical were deemed satisfactory to proceed withthe planned level of sedation. Mallampati Assessment: As documented in theRN pre-procedure assessment. Sedation Plan: Transesophageal echo -moderate sedation. ASA physical status score: Class IV. Transesophagealechocardiogram performed by the physician home therapy teacher(s), as listedin this report. LEFT VENTRICLE:Mildly enlarged left ventricular chamber size. Estimatedleft ventricular ejection fraction 55%. No regional wall motionabnormalities. RIGHT VENTRICLE:Mildly enlarged right ventricular chamber size. Normalright ventricular systolic function. ATRIA:Enlarged left atrial size. Normal left atrial appendage. Left atrialappendage emptying velocity 30 cm/sec. No left atrial appendage thrombus.No spontaneous echo contrast identified in the left atrium and left atrialappendage. Enlarged right atrial size. CARDIAC VALVES:Trileaflet aortic valve. Morphologically normal aorticvalve. No aortic valve regurgitation. Thickened mitral valve. 1MitraClip(s) seen in a stable position with good tissue bridge betweenA2-P2. Indeterminate degree of mitral valve regurgitation. Morphologicallynormal pulmonary valve. Trivial pulmonary valve regurgitation.Morphologically normal tricuspid valve. Mild tricuspid valveregurgitation. OTHER ECHO FINDINGS:Enlarged ascending aorta diameter. Diffuse mildimmobile (intimal thickening of 2-3 mm) atherosclerosis of the aorticarch. No atherosclerosis of the descending thoracic aorta. Normallyconnected pulmonary veins. Pulmonary artery bifurcation is normal. Normalsuperior vena cava. Agitated saline injection(s) performed duringsedation. Tiny anterior pericardial effusion. Yqsj-sy-eegdg shunt atatrial level. PROCEDURE:Transesophageal echocardiogram performed at the request of theprimary staff services manager. Adult probe inserted without difficulty. SeeSedation Narrator or other pertinent record in [facility] for additionalprocedure and sedation information. Transesophageal echocardiogramcompleted without complications. Transgastric images acquired. CARDIOVERSION:Successful cardioversion with 120 joules after 1attempt(s). For the complete report, see the Order-Level Documents. Harpal Hodges P.A.-C. CV ECHO PROCEDURES Fin al Result * Airway (07/23/2024 9:50 AM ROENTGENOLOGIST) Narrative Radha Timmons APRN, CRNA - 07/23/2024 9:50 AM ROENTGENOLOGIST Radha Timmons APRN, CRNA 07/23/2024 9:56 AM Airway Date/Time: 07/23/2024 9:50 AM Performed by: Radha Timmons APRN, CRNA Authorized by: Radha Timmons APRN, CRNA Patient location during procedure: OR / Procedure Area PROCEDURE DETAILS: Mask difficulty assessment: not attempted Final airway type: mask Airway confirmation: positive ETCO2 and bilateral chest rise Other previous techniques attempted: none PRE PROCEDURE DETAILS: Pre evaluation for airway management: procedure Urgency: elective Preop assessment of probable difficulty: no difficulty anticipated Preoxygenation: bag valve mask SEDATION / ANESTHESIA Anesthesia method: anesthesia POST PROCEDURE DETAILS: Procedure outcome: successful Notable Events: no complications Result [facility] Radha Timmons APRN, CRNA ANESTHESIA ORDERABLES F inal Result * Magnesium (07/23/2024 7:06 AM ROENTGENOLOGIST) Only the most recent of5 resultswithin the time period is included. Magnesium, S 1.9 1.7 - 2.3 mg/dL 07/23/2024 8:18 AM ROENTGENOLOGIST DTL Blood (Blood, Venous) 07/23/2024 7:06 AM ROENTGENOLOGIST 07/23/2024 8:00 AM ROENTGENOLOGIST Result [facility] Ulices Jiménez P.A.-C. LAB BLOOD ADD-ON Final Resul t [facility] [address] [place] [address], [place] DTL [facility] [address] [place] [address] * (ABNORMAL) Amiodarone Level (07/21/2024 2:43 AM ROENTGENOLOGIST) Amiodarone, S 0.4(L) mcg/mL 07/23/2024 2:38 PM ROENTGENOLOGIST [facility] Comment: ----REFERENCE VALUE---- 0.5 - 2.0 (Therapeutic concentration, trough value), >2.5 (Toxic concentration, trough value) Desethylamiodarone 0.2 mcg/mL 2024 2:38 PM ROENTGENOLOGIST [facility] Comment: ----REFERENCE VALUE---- No therapeutic range established; activity and serum concentration are similar to parent drug. ----ADDITIONAL INFORMATION---- This test was developed and its performance characteristics determined by [facility] in a manner consistent with CLIA requirements. This test has not been cleared or approved by the U.S. Food and Drug Administration. Blood (Blood, Venous) 07/21/2024 2:43 AM ROENTGENOLOGIST 07/23/2024 7:31 AM ROENTGENOLOGIST Harpal Maharaj.Swetha.-C. LAB BLOOD NON ADD-ON F inal Result [facility] [address] [place] [address] [facility] [address] [place] [address] [place] [address] * APTT (Activated Partial Thromboplastin Time) (07/20/2024 10:58 AM ROENTGENOLOGIST) Only the most recent of5 resultswithin the time period is included. Activated Partial Thrombopl Time, P 31 25 - 37 sec 07/20/2024 11:38 AM ROENTGENOLOGIST [facility] Blood (Blood, Venous) 07/20/2024 10:58 AM ROENTGENOLOGIST 07/20/2024 11:26 AM ROENTGENOLOGIST Harpal Ingram.-C. LAB BLOOD ADD-ON Final Result [facility] [address] [place] [address], [facility] [address] [place] [address] * Buttock/Sacrum-Nursing Image Exam (07/20/2024 8:44 AM ROENTGENOLOGIST) 07/20/2024 8:41 AM ROENTGENOLOGIST Narrative [facility] - 07/20/2024 8:44 AM ROENTGENOLOGIST This order has been created and auto-finalized to support the import of images acquired without order. The clinical documentation to support these images can be found on the encounter that produced images. us Provider Not In System IMG NON RAD IMAGING PROCE DURES Final Result II NA * CT Chest Angiogram and Pulmonary Arteries with IV Contrast (07/19/2024 4:20 PM ROENTGENOLOGIST) Anatomical Region Laterality Modality Chest, Cardiovascular RST LO S, Thoracic ARZ LOS, Thoracic FLA LOS N/A Computed Tomography, Compute d Tomography 07/19/2024 4:14 PM ROENTGENOLOGIST Impressions 07/19/2024 4:42 PM ROENTGENOLOGIST 1. Negative for acute pulmonary embolus. 2. Pulmonary edema and small bilateral pleural effusions. The effusions have increased in size since 06/30/2024. 3. Multifocal consolidation in the lungs has moderately improved since 06/30/2024. 4. Extensive adenopathy in the chest is largely unchanged since 06/30/2024, though several lymph nodes have slightly enlarged. Narrative 07/19/2024 4:42 PM ROENTGENOLOGIST EXAM: CT CHEST ANGIOGRAM AND PULMONARY ARTERIES WITH IV CONTRAST Including 3D image postprocessing with or without AI assistance. COMPARISON: CT chest 06/30/2024, 06/28/2024, and 06/21/2024. FINDINGS: Negative for acute pulmonary embolus. Bilateral multifocal consolidation has moderately improved. Bilateral interlobular septal thickening, scattered groundglass, and increased bilateral pleural effusions, left greater than right. Findings compatible with pulmonary edema. Extensive multistation adenopathy throughout the chest and visualized lower neck, largely unchanged since 06/30/2024, though some lymph nodes have increased. For example, a 12 mm right axillary node (5/26) has increased from 7 mm and a 13 mm left axillary node (5/50) has increased from 9 mm. A 7 mm prevascular node (5/91) is increased from 4 mm and an 11 mm left paratracheal node (5/102) has increased from 8 mm. The dominant 25 mm subcarinal node is not significantly changed. Dilatation the mid ascending aorta measuring 40 mm. Coronary artery calcification and calcification of the aortic valve leaflets. Mitraclip. Left atrial enlargement. Sebaceous cyst in the upper back. Old rib fractures. Degenerative changes in the spine. Procedure Note Gildardo Renee M.D. - 07/19/2024 EXAM: CT CHEST ANGIOGRAM AND PULMONARY ARTERIES WITH IV CONTRAST Including 3D image postprocessing with or without AI assistance. COMPARISON: CT chest 06/30/2024, 06/28/2024, and 06/21/2024. FINDINGS: Negative for acute pulmonary embolus. Bilateral multifocal consolidation has moderately improved. Bilateral interlobular septal thickening, scattered groundglass, andincreased bilateral pleural effusions, left greater than right. Findingscompatible with pulmonary edema. Extensive multistation adenopathy throughout the chest and visualizedlower neck, largely unchanged since 06/30/2024, though some lymph nodeshave increased. For example, a 12 mm right axillary node (5/26) hasincreased from 7 mm and a 13 mm left axillary node (5/50) has increased from 9 mm. A 7 mm prevascular node (5/91) isincreased from 4 mm and an 11 mm left paratracheal node (5/102) hasincreased from 8 mm. The dominant 25 mm subcarinal node is notsignificantly changed. Dilatation the mid ascending aorta measuring 40 mm. Coronary arterycalcification and calcification of the aortic valve leaflets. Mitraclip.Left atrial enlargement. Sebaceous cyst in the upper back. Old rib fractures. Degenerative changesin the spine. IMPRESSION: 1. Negative for acute pulmonary embolus. 2. Pulmonary edema and small bilateral pleural effusions. The effusionshave increased in size since 06/30/2024. 3. Multifocal consolidation in the lungs has moderately improved since06/30/2024. 4. Extensive adenopathy in the chest is largely unchanged since 06/30/2024,though several lymph nodes have slightly enlarged. us Matthew Carlin M.D. IMG CT PROCEDURES Final Re sult * (ABNORMAL) Dipstick, POCT, Urine (07/19/2024 2:50 PM ROENTGENOLOGIST) Glucose, POCT, U Negative Negative mg/dL 07/19/2024 2:51 PM ROENTGENOLOGIST PCED Ketone, POCT, U Negative Negative mg/dL 07/19/2024 2:51 PM ROENTGENOLOGIST PCED Specific [place], POCT, U 1.015 1.005 - 1.030 07/19/2024 2:51 PM ROENTGENOLOGIST PCED Blood, POCT, U Negative Negative 07/19/2024 2:51 PM ROENTGENOLOGIST PCED pH, POCT, Urine 7.0 5.0 - 8.0 07/19/2024 2:51 PM ROENTGENOLOGIST PCED Protein, POCT, U 100(A) Negative mg/dL 07/19/2024 2:51 PM ROENTGENOLOGIST PCED Nitrites, POCT, U Negative Negative 07/19/2024 2:51 PM ROENTGENOLOGIST PCED Leukocytes, POCT, U Negative Negative 07/19/2024 2:51 PM ROENTGENOLOGIST PCED Urine 07/19/2024 2:50 PM ROENTGENOLOGIST 07/19/2024 2:52 PM ROENTGENOLOGIST us Unknown Provider LAB POCT ORDERABLES - DEVICE Fi nal Result POC RST [facility] [address] [place] [address], [facility] PCED [facility]OC [address] [place] [address] * Dipstick, Urine (07/19/2024 2:46 PM ROENTGENOLOGIST) Hemoglobin, QL, U Negative Negative 07/19/2024 3:22 PM ROENTGENOLOGIST DTL Leukocyte Esterase, U Negative Negative 07/19/2024 3:22 PM ROENTGENOLOGIST DTL Nitrite, U Negative Negative 07/19/2024 3:22 PM ROENTGENOLOGIST DTL Ketone, U Negative Negative mg/dL 07/19/2024 3:22 PM ROENTGENOLOGIST DTL Glucose, U Negative Negative mg/dL 07/19/2024 3:22 PM ROENTGENOLOGIST DTL Urine 07/19/2024 2:46 PM ROENTGENOLOGIST 07/19/2024 3:10 PM ROENTGENOLOGIST Marta Baugh P.A.-C. LAB URINE ORDERABLES Final Result Performing Organization Address City/[facility]/ZIP Co de Phone Number [facility] [address] [place] [address], [facility] [address] [place] [address] * (ABNORMAL) Microscopic Manual (07/19/2024 2:46 PM ROENTGENOLOGIST) Microscopy Abnormal 07/19/2024 4:07 PM ROENTGENOLOGIST DTL RBC <3 <3 /hpf 07/19/2024 4:07 PM ROENTGENOLOGIST DTL WBC None Seen /hpf 07/19/2024 4:07 PM ROENTGENOLOGIST DTL Comment: ----REFERENCE VALUE---- <4 (Males) <11 (Females) Casts, Granular Occas(A) /lpf 4:07 PM ROENTGENOLOGIST DTL Urine 07/19/2024 2:46 PM ROENTGENOLOGIST 07/19/2024 3:22 PM ROENTGENOLOGIST Result [facility] Marta Baugh P.A.-C. LAB URINE ORDERABLES Final Result Performing Organization Address City/[facility]/ZIP Co de Phone Number [facility] [address] [place] [address], [facility] [address] [place] [address] * Bacterial Culture, Aerobic + Susceptibility, Urine (07/19/2024 2:46 PM ROENTGENOLOGIST) Urine Culture Urogenital microbiota, susceptibilities not performed per laboratory criteria. 07/20/2024 12:18 PM ROENTGENOLOGIST DTL Urine (Urine, Midstream) 07/19/2024 2:46 PM ROENTGENOLOGIST 07/19/2024 5:46 PM ROENTGENOLOGIST Comment:Specimen Source Site : Urine us Matthew Carlin M.D. LAB MICROBIOLOGY - GENERAL ORDERABLES Final Result Performing Organization Address City/[facility]/[place] [address] * pH, Urine (07/19/2024 2:46 PM ROENTGENOLOGIST) Pathologist [facility] pH, U 6.8 4.5 - 8.0 07/19/2024 3:5 2 PM ROENTGENOLOGIST DT Urine 07/19/2024 2:46 PM ROENTGENOLOGIST 07/19/2024 3:10 PM ROENTGENOLOGIST Marta Baugh P.A.-C. LAB URINE ORDERABLES Final Result Performing Organization Address [facility] [place] [address] * Osmolality, Urine (07/19/2024 2:46 PM ROENTGENOLOGIST) Only the most recent of2 resultswithin the time period is included. Pathologist [facility] Osmolality, U 447 150 - 1150 mOsm/kg 07/19/2024 3:52 PM ROENTGENOLOGIST DT Urine 07/19/2024 2:46 PM ROENTGENOLOGIST 07/19/2024 3:10 PM ROENTGENOLOGIST Marta Baugh P.A.-C. LAB URINE ORDERABLES Final Result Performing Organization Address [facility] [place] [address] * (ABNORMAL) Urinalysis, with Microscopic: Urine, Midstream (07/19/2024 2:46 PM ROENTGENOLOGIST) Source Urine, Urine, Midstream 07/19/2024 3:10 PM ROENTGENOLOGIST DTL Color, U Yellow 07/19/2024 3:10 PM ROENTGENOLOGIST DTL Clarity, U Clear 07/19/2024 3:10 PM ROENTGENOLOGIST DTL Protein, U 60(H) <26 mg/dL 07/19/2024 3:47 PM ROENTGENOLOGIST DTL Protein/Osmol ality 1.34(H) <0.42 ratio 07/19/2024 3:52 PM ROENTGENOLOGIST DTL Predicted 24 HR Protein, U 1247(H) <229 mg/24 h 07/19/2024 3:52 PM ROENTGENOLOGIST DTL Predicted Range 396-3928 mg/24 h 07/19/2024 3:52 PM ROENTGENOLOGIST DTL Urine (Urine, Midstream) 07/19/2024 2:46 PM ROENTGENOLOGIST 07/19/2024 3:10 PM ROENTGENOLOGIST us Matthew Carlin M.D. LAB URINE ORDERABLES Final Result Performing Organization Address [facility] Co de Phone Number [facility] [address] DTL [facility] [address] [place] [address] * (ABNORMAL) Troponin T, 2 Hour with 6 Hour Reflex, 5th Gen (07/19/2024 1:07 PM ROENTGENOLOGIST) Troponin T, 2 hr, 5th gen 33(H) <=15 ng/L 07/19/2024 1:43 PM ROENTGENOLOGIST [facility] 2H Delta 1 ng/L 07/19/2024 1:43 PM ROENTGENOLOGIST [facility] Comment:6 hour collection no t indicated. 2H Delta Interp Not Changing 07/19/2024 1:43 PM ROENTGENOLOGIST [facility] Blood 07/19/2024 1:07 PM ROENTGENOLOGIST 07/19/2024 1:16 PM ROENTGENOLOGIST us Marta Baugh P.A.-C. LAB BLOOD TROPONIN Fi nal Result Performing Organization Address [facility]/ZIP Co de Phone Number [facility] [address] [place] [address] * (ABNORMAL) T4 (Thyroxine), Free, Serum (07/19/2024 1:07 PM ROENTGENOLOGIST) T4 (Thyroxine), Free, S 1.8(H) 0.9 - 1.7 ng/dL 07/19/2024 2:43 PM ROENTGENOLOGIST DTL Blood 07/19/2024 1:07 PM ROENTGENOLOGIST 07/19/2024 1:33 PM ROENTGENOLOGIST Matthew Carlin M.D. LAB BLOOD ADD-ON Final Res ult Performing Organization Address [facility] Co de Phone Number [facility] [address] [place] [address] * (ABNORMAL) Thyroid Function [place] (07/19/2024 1:07 PM ROENTGENOLOGIST) Pathologist [facility] TSH, Sensitive 4.4(H) 0.3 - 4.2 mIU/L 07/19/2024 2:27 PM ROENTGENOLOGIST DTL Blood (Blood, Venous) 07/19/2024 1:07 PM ROENTGENOLOGIST 07/19/2024 1:33 PM ROENTGENOLOGIST Matthew Carlin M.D. LAB BLOOD ADD-ON Final Res ult Performing Organization Address [facility]/ZIP Co de Phone Number [facility] [address] [place] [address] * Lactate, POCT (07/19/2024 1:07 PM ROENTGENOLOGIST) Pathologist [facility] Lactate, POCT 1.04 0.50 - 2.20 mmol/L 07/19/2024 1:15 PM ROENTGENOLOGIST PCLX Blood (Blood, Venous) 07/19/2024 1:07 PM ROENTGENOLOGIST 07/19/2024 1:07 PM ROENTGENOLOGIST Matthew Carlin M.D. LAB POCT ORDERABLES - BRAD CE Final Result Performing Organization Address [facility] Co de Phone Number [facility] [address] [place] [address], [facility] PCLX [facility] [address] [place] [address] * Thyroperoxidase (TPO) Antibodies (07/19/2024 1:07 PM ROENTGENOLOGIST) Pathologist [facility] Thyroperoxidase Ab, S <15.0 <34.0 IU/mL 07/19/2024 2:43 PM ROENTGENOLOGIST DTL Blood 07/19/2024 1:07 PM ROENTGENOLOGIST 07/19/2024 1:33 PM ROENTGENOLOGIST Matthew Carlin M.D. LAB BLOOD ADD-ON Final Res ult Performing Organization Address [facility] de Phone Number [facility] [address] [place] [address], [facility] [address] [place] [address] * (ABNORMAL) D-Dimer (07/19/2024 1:07 PM ROENTGENOLOGIST) Pathologist [facility] D-Dimer, P 1273(H) <=500 ng/mL FEU 07/19/2024 1:28 PM ROENTGENOLOGIST [facility] Comment: D-dimer concentrations increase with age. For DVT/PE exclusion, in addition to clinical pre-test probability, age-adjusted D-dimer cut-offs are suggested for patients >50 years old. For additional information refer to the D-dimer assay in the Laboratory Test Catalog (LTC) and/or [employer]pert (ANA). ----ADDITIONAL INFORMATION---- D-dimer values less than or equal to 500 ng/mL fibrinogen equivalent units (FEU) may be used in conjunction with clinical pre-test probability to exclude deep vein thrombosis (DVT) and/or pulmonary embolism (PE). Blood (Blood, Venous) 07/19/2024 1:07 PM ROENTGENOLOGIST 07/19/2024 1:16 PM ROENTGENOLOGIST us Matthew Carlin M.D. LAB BLOOD ADD-ON Final Res ult Performing Organization Address City/[facility]/ZIP Co de Phone Number [facility] [address] [place], [place] [id number] [place], [place] [address]A [facility] [address] [place] [address] * DX Chest AP or PA and Lateral 2 Views (07/19/2024 10:23 AM ROENTGENOLOGIST) Anatomical Region Laterality Modality Chest, Thoracic RST LOS, Tho racic ARZ LOS, Thoracic FLA LOS N/A Digital Radiography Impressions 07/19/2024 10:26 AM ROENTGENOLOGIST Improved bilateral airspace and interstitial opacities from 07/04/2024. Trace to small pleural effusions, left greater than right. No discernible pneumothorax. Stable cardiac silhouette. MitraClip. Aortic calcifications. Narrative 07/19/2024 10:26 AM ROENTGENOLOGIST EXAM: DX CHEST AP OR PA AND LATERAL 2 VIEWS Procedure Note Cali Triplett D.O. - 07/19/2024 EXAM: DX CHEST AP OR PA AND LATERAL 2 VIEWS IMPRESSION: Improved bilateral airspace and interstitial opacities from 07/04/2024.Trace to small pleural effusions, left greater than right. No discerniblepneumothorax. Stable cardiac silhouette. MitraClip. Aortic calcifications. Matthew Carlin M.D. IMG DIAGNOSTIC IMAGING PRO CEDURES Final Result * (ABNORMAL) Troponin T, Baseline with 2 Hour/6 Hour Reflex Biomarker Panel (07/19/2024 10:15 AM ROENTGENOLOGIST) Troponin T, Baseline, 5th gen 32(H) <=15 ng/L 07/19/2024 10:55 AM ROENTGENOLOGIST [facility] Blood (Blood, Venous) 07/19/2024 10:15 AM ROENTGENOLOGIST 07/19/2024 10:23 AM ROENTGENOLOGIST Matthew Carlin M.D. LAB BLOOD TROPONIN Final R esult [facility] [address] [place] [facility] [address] [place] [address] * Glucose, POCT (07/19/2024 10:15 AM ROENTGENOLOGIST) Glucose, POCT, B 116 70 - 140 mg/dL 07/19/2024 10:20 AM ROENTGENOLOGIST PCLX Blood (Blood, Capillary) 07/19/2024 10:15 AM ROENTGENOLOGIST 07/19/2024 10:15 AM ROENTGENOLOGIST Matthew Carlin M.D. LAB POCT ORDERABLES-MANUAL Final Result Performing Organization Address City/[facility]/ZIP Co de Phone Number [facility] [address] [place] [address], [facility] PCLX [facility] [address] [place] [address] * (ABNORMAL) Morphology Eval (special smear) (07/19/2024 10:14 AM ROENTGENOLOGIST) Pathologist [facility] Neutrophilic Segs and Bands 19(L) 50 - 75 % 07/19/2024 11:18 AM ROENTGENOLOGIST [facility] Lymphocytes 79(H) 18 - 42 % 07/19/2024 11:18 AM ROENTGENOLOGIST [facility] Monocytes 2 2 - 11 % 07/19/2024 11:18 AM ROENTGENOLOGIST [facility] Manual Absolute Neutrophil Count 7.01(H) 1.56 - 6.45 x10(9)/L 07/19/2024 11:18 AM ROENTGENOLOGIST [facility] Comment: ----ADDITIONAL INFORMATION---- The manual absolute neutrophil count is derived from a manual differential count and therefore is not exactly comparable to the automated absolute neutrophil count. Blood 07/19/2024 10:1 4 AM ROENTGENOLOGIST 07/19/2024 10:23 AM ROENTGENOLOGIST us Matthew Carlin M.D. LAB BLOOD ADD-ON Final Res ult Performing Organization Address City/[facility]/ZIP Co de Phone Number [facility] [address] [place] [address], [facility] [address] [place] [address] * (ABNORMAL) CBC with Differential, Blood (07/19/2024 10:14 AM ROENTGENOLOGIST) Only the most recent of8 resultswithin the time period is included. [facility] Hemoglobin 10.7(L) 13.2 - 16.6 g/dL 07/19/2024 10:25 AM ROENTGENOLOGIST [facility] Hematocrit 34.3(L) 38.3 - 48.6 % 07/19/2024 10:25 AM ROENTGENOLOGIST [facility] Erythrocytes 3.70(L) 4.35 - 5.65 x10(12)/L 07/19/2024 10:25 AM ROENTGENOLOGIST [facility] MCV 92.7 78.2 - 97.9 fL 07/19/2024 10:25 AM ROENTGENOLOGIST [facility] RBC Distrib Width 16.4(H) 11.8 - 14.5 % 07/19/2024 10:25 AM ROENTGENOLOGIST [facility] Platelet Count 277 135 - 317 x10(9)/L 07/19/2024 10:25 AM ROENTGENOLOGIST [facility] Leukocytes 36.9(H) 3.4 - 9.6 x10(9)/L 07/19/2024 11:18 AM ROENTGENOLOGIST [facility] Neutrophils See Comment 1.56 - 6.45 x10(9)/L 07/19/2024 11:18 AM ROENTGENOLOGIST [facility] Comment:Auto-diff results no t valid. See manual differential. Blood (Blood, Venous) 07/19/2024 10:14 AM ROENTGENOLOGIST 07/19/2024 10:23 AM ROENTGENOLOGIST Matthew Carlin M.D. LAB BLOOD ADD-ON Final Res ult [facility] [address] [place] [address], [facility] [address] [place] [address] [facility] [address] [place] [address] * (ABNORMAL) Immunoglobulins (IgG, IgA, and IgM) (07/07/2024 10:09 AM ROENTGENOLOGIST) Only the most recent of2 resultswithin the time period is included. [facility] Immunoglobulin A (IgA), S 71 61 - 356 mg/dL 07/09/2024 11:21 AM ROENTGENOLOGIST [facility] Immunoglobulin M (IgM), S <5(L) 37 - 286 mg/dL 07/09/2024 12:02 PM ROENTGENOLOGIST [facility] Immunoglobulin G (IgG), S 178(L) 767 - 1590 mg/dL 07/09/2024 11:22 AM ROENTGENOLOGIST [facility] Blood (Blood, Venous) 07/07/2024 10:09 AM ROENTGENOLOGIST 07/09/2024 6:43 AM ROENTGENOLOGIST us Lauren Pena M.D. LAB BLOOD ADD-ON Final Result [facility] [address] [place] [address] [facility] [address] [place] [address] * Transfuse Red Blood Cells : (07/06/2024 6:39 PM ROENTGENOLOGIST) Aurelio Gibbons D.D.S. BLOOD TRANSFUSION ORDER ANAIS Final Result * Type and Screen (with Reflex Antibody ID) (07/06/2024 2:14 PM ROENTGENOLOGIST) Pathologist [facility] ABOR B Pos Not applicable 07/06/2024 2:46 PM ROENTGENOLOGIST STRM Antibody Screen Negative Negative 07/06/2024 3:07 PM ROENTGENOLOGIST STRM Type & Screen Expiration 07/09/2024 23:59 07/06/2024 2:46 PM ROENTGENOLOGIST STRM Testing Location Kate DEFAULT 07/06/2024 2:24 PM ROENTGENOLOGIST STRM Blood (Blood, Venous) 07/06/2024 2:14 PM ROENTGENOLOGIST 07/06/2024 2:24 PM ROENTGENOLOGIST Aurelio Gibbons D.D.S. LAB BLOOD BANK TEST ORD ERABLES Final Result [facility] [address] [place] [address], [facility] STRM [facility] [address] [place] [address] * Sodium, Random, Urine (07/05/2024 10:47 AM ROENTGENOLOGIST) Sodium, Random, U 112 mmol/L 07/05/2024 11:33 AM ROENTGENOLOGIST [facility] Comment: ----REFERENCE VALUE---- Random urine sodium may be interpreted in conjunction with serum sodium, using both values to calculate fractional excretion of sodium. Urine (Urine, Midstream) 07/05/2024 10:47 AM ROENTGENOLOGIST 07/05/2024 11:06 AM ROENTGENOLOGIST Aurelio Gibbons D.D.S. LAB URINE ORDERABLES Fi nal Result Performing Organization Address City/[facility]/ZIP Co de Phone Number [facility] [address] [place] [address] * (ABNORMAL) Osmolality (07/05/2024 10:19 AM ROENTGENOLOGIST) Osmolality, S 268(L) 275 - 295 mOsm/kg 07/05/2024 11:17 AM ROENTGENOLOGIST [facility] Blood (Blood, Venous) 07/05/2024 10:19 AM ROENTGENOLOGIST 07/05/2024 11:06 AM ROENTGENOLOGIST Aurelio Gibbons D.D.S. LAB BLOOD ADD-ON Final Result Performing Organization Address City/[facility]/ZIP Co de Phone Number [facility] [address] [place] [address], [place] [address] * Phosphorus Inorganic (07/05/2024 12:12 AM ROENTGENOLOGIST) Phosphorus (Inorganic), S 2.9 2.5 - 4.5 mg/dL 07/05/2024 11:16 AM ROENTGENOLOGIST [facility] Blood 07/05/2024 12:1 2 AM ROENTGENOLOGIST 07/05/2024 10:39 AM ROENTGENOLOGIST Alexa CourtneyPh. LAB BLOOD ADD-ON Anabelle l Result [facility] [address] [place] [address], [place] DTL [facility] [address] [place] [address] * DX Chest Portable 1 View (07/04/2024 7:38 AM ROENTGENOLOGIST) Anatomical Region Laterality Modality Chest, Thoracic RST LOS, Tho racic ARZ LOS, Thoracic FLA LOS N/A Digital Radiography Impressions 07/04/2024 7:50 AM ROENTGENOLOGIST Since 03/13/2024, new multifocal interstitial and airspace opacities throughout the lungs which is nonspecific may be due to pneumonia including atypical infections or edema. Small left and trace right pleural effusions. MitraClip. Aortic calcifications. Old left rib fracture deformity. Narrative 07/04/2024 7:50 AM ROENTGENOLOGIST EXAM: DX CHEST PORTABLE 1 VIEW Procedure Note Sd Owusu M.D. - 07/04/2024 EXAM: DX CHEST PORTABLE 1 VIEW IMPRESSION: Since 03/13/2024, new multifocal interstitial and airspace opacitiesthroughout the lungs which is nonspecific may be due to pneumoniaincluding atypical infections or edema. Small left and trace right pleuraleffusions. MitraClip. Aortic calcifications. Old left rib fracture deformity. Aurelio Gibbons D.D.SBuddy IMG DIAGNOSTIC IMAGING PROCEDURES Final Result * (ABNORMAL) CRP (C-Reactive Protein) (07/04/2024 12:19 AM ROENTGENOLOGIST) Only the most recent of2 resultswithin the time period is included. C-Reactive Protein (CRP), S 53.3(H) <5.0 mg/L 07/04/2024 1:22 AM ROENTGENOLOGIST DTL Blood (Blood, Venous) 07/04/2024 12:19 AM ROENTGENOLOGIST 07/04/2024 1:05 AM ROENTGENOLOGIST Cam Vyas M.D. LAB BLOOD ADD-ON Final Re sult Performing Organization Address City/[facility]/ZIP Co de Phone Number [facility] [address] [place] [address], [place] DTL [facility] [address] [place] [address] * Histoplasma and Blastomyces Antigen, Enzyme Immunoassay, Serum (07/03/2024 1:29 PM ROENTGENOLOGIST) Histoplasma/Blasto myces Ag Result Not Detected Not Detected 07/04/2024 2:09 PM ROENTGENOLOGIST [facility] Comment: No antigen from Histoplasma or Blastomyces detected. False negative results may occur depending on extent of disease, and/or site of infection. Repeat testing on a new specimen if clinically indicated. Histoplasma/Blasto myces Ag Value Not Detected ng/mL 07/04/2024 2:09 PM ROENTGENOLOGIST [facility] Comment: ----ADDITIONAL INFORMATION---- This test was developed and its performance characteristics determined by [facility] in a manner consistent with CLIA requirements. This test has not been cleared or approved by the U.S. Food and Drug Administration. Blood (Blood, Venous) 07/03/2024 1:29 PM ROENTGENOLOGIST 07/03/2024 5:04 PM ROENTGENOLOGIST Lauren Pena M.D. LAB MICROBIOLOGY - BLOO D ORDERABLES Final Result Performing Organization Address [facility] Co de Phone Number [facility] [address] [place] [address] [facility] [address] [place] [address] [place] [address] * Cryptococcus Antigen Screen with Titer (07/03/2024 1:29 PM ROENTGENOLOGIST) Only the most recent of2 resultswithin the time period is included. Cryptococcus Ag Screen w/Titer, S Negative Negative 07/03/2024 9:36 PM ROENTGENOLOGIST [facility] Comment: A single negative result does not exclude the diagnosis of cryptococcosis. Repeat testing on a new sample if clinically indicated. ----ADDITIONAL INFORMATION---- This assay was performed using the FDA-cleared myVBOY Cryptococcus Antigen Lateral Flow Assay. Blood (Blood, Venous) 07/03/2024 1:29 PM ROENTGENOLOGIST 07/03/2024 5:04 PM ROENTGENOLOGIST us Lauren Pena M.D. LAB MICROBIOLOGY - BLOO D ORDERABLES Final Result [facility] [address] [place] [address] [facility] [address] [place] [address] [place] [address] * Isavuconazole Susceptibility Test-Sent Out Lab (07/02/2024 2:07 PM ROENTGENOLOGIST) Isavuconazole Susceptibility Test SEE COMMENT 07/20/2024 8:44 AM ROENTGENOLOGIST [facility] Comment: For final report, select Lab-Send Out Lab Results hyperlink below. 07/02/2024 2:07 PM ROENTGENOLOGIST 07/12/2024 7:33 AM ROENTGENOLOGIST us Catherine Garcia M.D. LAB MICROBIOLOGY - GENERAL ORD ERABLES Final Result Performing Organization Address City/[facility] Co de Phone Number [address] Department [place] [address], [facility] MIRYAM [address] Dept [place] [address] * Amphotericin B Susceptibility Testing - Sent Out Lab (07/02/2024 2:07 PM ROENTGENOLOGIST) Amphotericin B Susceptibility SEE COMMENT 07/20/2024 8:44 AM ROENTGENOLOGIST [facility] Comment: For final report, select Lab-Send Out Lab Results hyperlink below. 07/02/2024 2:07 PM ROENTGENOLOGIST 07/12/2024 7:33 AM ROENTGENOLOGIST us Catherine Garcia M.D. LAB MICROBIOLOGY - GENERAL ORD ERABLES Final Result [address] Department [place] [address], [address] Dept [place] [address] * SARS CoV-2 RNA, PCR (07/02/2024 2:07 PM ROENTGENOLOGIST) SARS CoV-2 RNA, PCR, Source Lavage-ICH, Bronchoalveolar Lavage-ICH 07/02/2024 11:46 PM ROENTGENOLOGIST SDS SARS CoV-2 RNA, PCR Undetected Undetected 07/02/2024 11:46 PM ROENTGENOLOGIST SDS Comment: SARS-CoV-2 RNA absent. This result does not rule out COVID-19 in the patient, as the sensitivity of the test depends on the timing of the specimen collection and quality of the specimen. Result should be correlated with patient's history and clinical presentation. ----ADDITIONAL INFORMATION---- This RT-PCR test has received Emergency Use Authorization (EUA) by the U.S. Food and Drug Administration and is used per psychologist military personnel's instructions. Performance characteristics were verified by [facility] in a manner consistent with CLIA requirements. Visit the CDC website: https://www.cdc.gov/coronavirus/ for the most recent guidelines on Coronavirus testing. Fact Sheet for Healthcare Providers: https://www.fda.gov/media/365928/download Fact Sheet for Patients: https://www.fda.gov/media/434848/download Lavage-ICH (Bronchoalveolar Lavage-ICH) 07/02/2024 2:07 PM ROENTGENOLOGIST Lamberto Schaefer M.D. LAB MICROBIOLOGY - GENERAL ORD ERABLES Final Result [facility] [address] [place] [address] [facility] [address] [place] [address] [place] [address] * (ABNORMAL) Pneumonia Panel, PCR (07/02/2024 2:07 PM ROENTGENOLOGIST) Only the most recent of2 resultswithin the time period is included. Specimen Source Lavage-ICH, Bronchoalveolar Lavage-ICH 01/27/202 5 7:32 PM ROENTGENOLOGIST DTL Acinetobacter calcoaceticus-bau mannii complex Undetected Undetected copies/mL 5 7:32 PM ROENTGENOLOGIST DTL Enterobacter cloacae complex Undetected Undetected copies/mL 5 7:32 PM ROENTGENOLOGIST DTL Escherichia coli Undetected Undetected copies/mL 5 7:32 PM ROENTGENOLOGIST DTL Haemophilus influenzae Undetected Undetected copies/mL 5 7:32 PM ROENTGENOLOGIST DTL Klebsiella aerogenes Undetected Undetected copies/mL 5 7:32 PM ROENTGENOLOGIST DTL Klebsiella oxytoca Undetected Undetected copies/mL 5 7:32 PM ROENTGENOLOGIST DTL Klebsiella pneumoniae complex Undetected Undetected copies/mL 5 7:32 PM ROENTGENOLOGIST DTL Moraxella catarrhalis Undetected Undetected copies/mL 5 7:32 PM ROENTGENOLOGIST DTL Proteus species Undetected Undetected copies/mL 5 7:32 PM ROENTGENOLOGIST DTL Pseudomonas aeruginosa Undetected Undetected copies/mL 5 7:32 PM ROENTGENOLOGIST DTL Serratia marcescens Undetected Undetected copies/mL 5 7:32 PM ROENTGENOLOGIST DTL Staphylococcus aureus complex Undetected Undetected copies/mL 5 7:32 PM ROENTGENOLOGIST DTL Streptococcus agalactiae Undetected Undetected copies/mL 5 7:32 PM ROENTGENOLOGIST DTL Streptococcus pneumoniae Undetected Undetected copies/mL 5 7:32 PM ROENTGENOLOGIST DTL Streptococcus pyogenes Undetected Undetected copies/mL 5 7:32 PM ROENTGENOLOGIST DTL Chlamydia pneumoniae Undetected Undetected 5 7:32 PM ROENTGENOLOGIST DTL Legionella pneumophila Undetected Undetected 5 7:32 PM ROENTGENOLOGIST DTL Mycoplasma pneumoniae Undetected Undetected 5 7:32 PM ROENTGENOLOGIST DTL Adenovirus Undetected Undetected 5 7:32 PM ROENTGENOLOGIST DTL Coronavirus Undetected Undetected 5 7:32 PM ROENTGENOLOGIST DTL Human Metapneumovirus Detected(A) Undetected 5 7:32 PM ROENTGENOLOGIST DTL Human Rhinovirus/Entero virus Undetected Undetected 5 7:32 PM ROENTGENOLOGIST DTL Influenza A Undetected Undetected 5 7:32 PM ROENTGENOLOGIST DTL Influenza B Undetected Undetected 5 7:32 PM ROENTGENOLOGIST DTL Parainfluenza Undetected Undetected 5 7:32 PM ROENTGENOLOGIST DTL Respiratory Syncytial Virus Undetected Undetected 5 7:32 PM ROENTGENOLOGIST DTL Comment: ----ADDITIONAL INFORMATION---- This assay is performed using the FDA-cleared FilmArray Pneumonia Panel (PN) (Wallerius.). Any initial empiric treatment guidance provided in this report by Infectious Diseases was based solely on the results shown. Patient management should be individualized, based on clinical interpretation of the result in this patient, alongside other considerations, including, but not limited to, renal and liver function, allergies, drug interactions, and other infections. This assay is not predicted to detect SARS-coronavirus (CoV), MERS-CoV or SARS-CoV-2. Lavage-ICH (Bronchoalveolar Lavage-ICH) 07/02/2024 2:07 PM ROENTGENOLOGIST us Lamberto Schaefer M.D. LAB MICROBIOLOGY - GENERAL ORD ERABLES Final Result [facility] [address] [place] [address], [facility] DTL [address] [facility] [address] [place] [address] * Misc [facility] Morales Ant Test (07/02/2024 2:07 PM ROENTGENOLOGIST) Test Name Micafungin 07/12/2024 7:33 AM ROENTGENOLOGIST [facility] Result SEE COMMENT 07/20/2024 8:44 AM ROENTGENOLOGIST [facility] Comment: For final report, select Lab-Send Out Lab Results hyperlink below. 07/02/2024 2:07 PM ROENTGENOLOGIST 07/12/2024 7:33 AM ROENTGENOLOGIST us Catherine Garcia M.D. LAB MISC ORDERABLES Final Resu [place] [address] [facility] Department Of Pathology [place] [address], [facility] [address] Dept [place] [address] * Voriconazole Susceptibility Testing - Sent Out Lab (07/02/2024 2:07 PM ROENTGENOLOGIST) Voriconazole Susceptibility Testing SEE COMMENT 07/20/2024 8:44 AM ROENTGENOLOGIST [facility] Comment: For final report, select Lab-Send Out Lab Results hyperlink below. 07/02/2024 2:07 PM ROENTGENOLOGIST 07/12/2024 7:33 AM ROENTGENOLOGIST Catherine Garcia M.D. LAB MICROBIOLOGY - GENERAL ORD ERABLES Final Result Performing Organization Address City/[facility]/ZIP Co de Phone Number [address] Department [place] [address], [facility] M[facility] [address] Dept [place] [address] * Posaconazole Susceptibility Testing - Sent Out Lab (07/02/2024 2:07 PM ROENTGENOLOGIST) Pathologist [facility] Posaconazole (POS) Susceptibility SEE COMMENT 07/20/2024 8:44 AM ROENTGENOLOGIST [facility] Comment: For final report, select Lab-Send Out Lab Results hyperlink below. 07/02/2024 2:07 PM ROENTGENOLOGIST 07/12/2024 7:33 AM ROENTGENOLOGIST us Catherine Garcia M.D. LAB MICROBIOLOGY - GENERAL ORD ERABLES Final Result [address] Department [place] [address], [address] Dept [place] [address] * Cytology Non-INFORMATION OPERATOR (07/02/2024 2:07 PM ROENTGENOLOGIST) 07/03/2024 3:26 PM ROENTGENOLOGIST DTL Report electronically signed by Rhea Green M.D. I verify that I have examined all relevant slides/materia ls for the specimen(s) and rendered or confirmed the diagnosis. 07/03/2024 3:26 PM ROENTGENOLOGIST DTL Gross Description Received blood tinged fluid in CytoLyt container. 07/03/2024 3:26 PM ROENTGENOLOGIST DTL Source C. Bronchoalveola r, lavage 07/03/2024 3:26 PM ROENTGENOLOGIST DTL Interpretation C. Bronchoalveola r, lavage (ThinPrep): Negative for malignancy. Hemosiderin laden macrophages present. 07/03/2024 3:26 PM ROENTGENOLOGIST DTL Lavage-ICH (Bronchoalveolar Lavage-ICH) 07/02/2024 2:07 PM ROENTGENOLOGIST us Lamberto Schaefer M.D. LAB SURG PATH ORDERABLES Final Result [facility] [address] [place] [address], [facility] DTL [address] [facility] [address] [place] [address] * Cell Count and Differential, Bronchoalveolar Lavage (07/02/2024 2:07 PM ROENTGENOLOGIST) Fluid Type BAL DEFAULT 07/02/2024 5:46 PM ROENTGENOLOGIST DHPM Gross appearance Slightly bloody 07/02/2024 5:46 PM ROENTGENOLOGIST DHPM Total Nucleated Cells 39.9 x10(6) 07/02/2024 5:46 PM ROENTGENOLOGIST [facility]PM Comment: ----REFERENCE VALUE---- The reference range and other method performance specifications have not been established for this body fluid. The test result must be integrated into the clinical context for interpretation. ----ADDITIONAL INFORMATION---- This test has been modified from the psychologist military personnel's instructions. Its performance characteristics were determined by [facility] in a manner consistent with CLIA requirements. This test has not been cleared or approved by the U.S. Food and Drug Administration. Volume Recovered 36 mL 07/02/19 5:46 PM ROENTGENOLOGIST DHPM Alveolar Macrophage 38 % 07/02 8:52 PM ROENTGENOLOGIST [facility] Comment: ----REFERENCE VALUE---- The reference range and other method performance specifications have not been established for this body fluid. The test result must be integrated into the clinical context for interpretation. Lymphocytes 5 % 07/02/2024 8:52 PM ROENTGENOLOGIST [facility] Comment: ----REFERENCE VALUE---- The reference range and other method performance specifications have not been established for this body fluid. The test result must be integrated into the clinical context for interpretation. Neutrophils 47 % 07/02/2024 8:52 PM ROENTGENOLOGIST [facility] Comment: ----REFERENCE VALUE---- The reference range and other method performance specifications have not been established for this body fluid. The test result must be integrated into the clinical context for interpretation. Other Cells 10 % 07/02/2024 8:52 PM ROENTGENOLOGIST [facility] Comment: ----REFERENCE VALUE---- The reference range and other method performance specifications have not been established for this body fluid. The test result must be integrated into the clinical context for interpretation. Comment See Comment 07/02/2024 8:55 PM ROENTGENOLOGIST [facility] Comment: Cytology concurrently ordered, see separate report.Others are lining cells.Pigment-laden macrophages. Lavage-ICH (Bronchoalveolar Lavage-ICH) 07/02/2024 2:07 PM ROENTGENOLOGIST us Lamberto Schaefer M.D. LAB BODY FLUIDS AND STOOLS ORD ERABLES Final Result [facility] [address] [place] [address], [facility] [address] [place] [address] * Pneumocystis PCR (07/02/2024 2:07 PM ROENTGENOLOGIST) Only the most recent of2 resultswithin the time period is included. Specimen Source Lavage-ICH, Bronchoalveolar Lavage-ICH 5 11:43 PM ROENTGENOLOGIST DTL Pneumocystis PCR Negative Not Applicable 5 11:43 PM ROENTGENOLOGIST DTL Comment: ----ADDITIONAL INFORMATION---- This test was developed and its performance characteristics determined by [facility] in a manner consistent with CLIA requirements. This test has not been cleared or approved by the U.S. Food and Drug Administration. Lavage-ICH (Bronchoalveolar Lavage-ICH) 07/02/2024 2:07 PM ROENTGENOLOGIST us Lamberto Schaefer M.D. LAB MICROBIOLOGY - GENERAL ORD ERABLES Final Result Performing Organization Address City/[facility]/ZIP Co de Phone Number [facility] [address] [place] [address], [facility] DT 200 [facility] [address] [place] [address] * (ABNORMAL) Bacterial Culture, Aerobic + Susceptibility, Respiratory (07/02/2024 2:07 PM ROENTGENOLOGIST) Only the most recent of2 resultswithin the time period is included. Bacterial Culture, Aerobic, Resp With upper respiratory/ora l microbiota(A) 07/04/2024 1:05 PM ROENTGENOLOGIST DTL Bacterial Culture, Aerobic, Resp YEAST or FILAMENTOUS FUNGUS 2+ (A) 07/04/2024 1:05 PM ROENTGENOLOGIST DTL Lavage-ICH (Bronchoalveolar Lavage-ICH) 07/02/2024 2:07 PM ROENTGENOLOGIST us Lamberto Schaefer M.D. LAB MICROBIOLOGY - GENERAL ORD ERABLES Final Result Performing Organization Address City/[facility] Co de Phone Number [facility] [address] [place] [address], [facility] [address] [place] [address] * Nocardia Stain (07/02/2024 2:07 PM ROENTGENOLOGIST) Nocardia Stain Negative. 07/02/2024 9:44 PM ROENTGENOLOGIST DTL Lavage-ICH (Bronchoalveolar Lavage-ICH) 07/02/2024 2:07 PM ROENTGENOLOGIST us Lamberto Schaefer M.D. LAB MICROBIOLOGY - GENERAL ORD ERABLES Final Result Performing Organization Address City/[facility]/ZIP Co de Phone Number [facility] [address] [place] [address], [facility] [address] [place] [address] * Legionella PCR (07/02/2024 2:07 PM ROENTGENOLOGIST) Specimen Source Lavage-ICH, Bronchoalveolar Lavage-ICH 5 11:06 PM ROENTGENOLOGIST DT Legionella PCR, Result Negative Not Applicable 5 11:06 PM ROENTGENOLOGIST DT Comment: ----ADDITIONAL INFORMATION---- This test was developed and its performance characteristics determined by [facility] in a manner consistent with CLIA requirements. This test has not been cleared or approved by the U.S. Food and Drug Administration. Lavage-ICH (Bronchoalveolar Lavage-ICH) 07/02/2024 2:07 PM ROENTGENOLOGIST us Lamberto Schaefer M.D. LAB MICROBIOLOGY - GENERAL ORD ERABLES Final Result [facility] [address] [place] [address], [facility] DT 200 [facility] [address] [place] [address] * (ABNORMAL) Aspergillus Antigen, Bronchoalveolar Lavage (07/02/2024 2:07 PM ROENTGENOLOGIST) Pathologist [facility] Aspergillus Ag, BAL 0.912(A) <0.5 index 07/03/2024 9:42 PM ROENTGENOLOGIST [facility] Comment: Elevated galactomannan levels have been reported in cases of other fungal infections, infusion or ingestion of gluconate containing products, and in the presence of certain antibiotics (Note: piperacillin/tazobactam is no longer considered a common cause of cross-reactivity for this assay). Results should be interpreted with caution as there was evidence of blood contamination in the BAL specimen. ----ADDITIONAL INFORMATION---- This is a qualitative test and the resulted index value is not indicative of disease severity. Serial testing is recommended for patients at high risk for invasive aspergillosis. This assay was performed using the FDA-cleared Bio-Gir[employer] Platelia Aspergillus Galactomannan EIA. Lavage-ICH (Bronchoalveolar Lavage-ICH) 07/02/2024 2:07 PM ROENTGENOLOGIST us Lamberto Schaefer M.D. LAB MICROBIOLOGY - GENERAL ORD ERABLES Final Result [facility] [address] [place] [address] [facility] [address] [place] [address] [place] [address] * (ABNORMAL) Mycobacterial Culture (07/02/2024 2:07 PM ROENTGENOLOGIST) [facility] Mycobacterial Culture MYCOBACTERIUM INTRACELLULARE Few (A) 08/14/2024 3:06 PM CDT DTL Comment: Semi-Urgent Result. This species is a member of the M. avium complex. Per CLSI M24 Guidelines, NILO data for ethambutol, rifampin,and rifabutin have shown poor correlation with clinical response. Therefore, although these drugs are in the recommended treatment regimen, breakpoints for these agents that separate susceptible from resistant strains cannot be determined and these drugs will not be reported. A high or a low NILO value provided by a laboratory should not be used to determine whether these drugs are useful in treatment regimens and we will not test forward to other institutions for testing of these agents because it is contrary to current guidance-based therapy recommendations. There are no established interpretive guidelines for agents reported without interpretations. Semi-Urgent This is a semi-urgent result(STODDARD) [facility] Lavage-ICH (Bronchoalveolar Lavage-ICH) 07/02/2024 2:07 PM ROENTGENOLOGIST Narrative Organism Antibiotic Method Susceptibility Mycobacterium intracellulare Linezolid SUSCEPTIBILITY, BP (MCG/ML) 32 mcg/mL: Resistant Comment: The in vivo effectiveness of this agent for MAC disease is unproven. Mycobacterium intracellulare Amikacin (IV) SUSCEPTIBILITY, BP (MCG/ML) 64 mcg/mL: Resistant Mycobacterium intracellulare Amikacin (liposomal, inhaled) SUSCEPTIBILITY, BP (MCG/ML) 64 mcg/mL: Susceptible Mycobacterium intracellulare Moxifloxacin SUSCEPTIBILITY, BP (MCG/ML) 4 mcg/mL: Resistant Comment: The in vivo effectiveness of this agent for MAC disease is unproven. Mycobacterium intracellulare Clofazimine SUSCEPTIBILITY, BP (MCG/ML) 0.12 mcg/mL Mycobacterium intracellulare Clarithromycin SUSCEPTIBILITY, BP (MCG/ML) 4 mcg/mL: Susceptible Comment: Clarithromycin is the class drug for macrolides and the only macrolide that needs to be tested. Lamberto Schaefer M.D. LAB MICROBIOLOGY - GENERAL ORD ERABLES Final Result Performing Organization Address City/[facility]/ZIP Co de Phone Number [facility] [address] [place] [address] * (ABNORMAL) Fungal Smear (07/02/2024 2:07 PM ROENTGENOLOGIST) Fungal Smear YEAST and PSEUDOHYPH AE(A) 07/02/2024 6:45 PM ROENTGENOLOGIST DTL Lavage-ICH (Bronchoalveolar Lavage-ICH) 07/02/2024 2:07 PM ROENTGENOLOGIST Lamberto Schaefer M.D. LAB MICROBIOLOGY - GENERAL ORD ERABLES Final Result Performing Organization Address City/[facility] Co de Phone Number [facility] [address] [place] [address] * Legionella Culture (07/02/2024 2:07 PM ROENTGENOLOGIST) Legionella Culture Overgrowth of fungus prevents isolation of requested organism. Culture discarded. 07/11/2024 9:17 AM ROENTGENOLOGIST DTL Lavage-ICH (Bronchoalveolar Lavage-ICH) 07/02/2024 2:07 PM ROENTGENOLOGIST Lamberto Schaefer M.D. LAB MICROBIOLOGY - GENERAL ORD ERABLES Final Result Performing Organization Address City/[facility]/ZIP Co de Phone Number [facility] [address] [place] [address] * Acid Fast Smear for Mycobacterium (07/02/2024 2:07 PM ROENTGENOLOGIST) Acid Fast Smear For Mycobacterium Negative. 07/02/2024 8:31 PM ROENTGENOLOGIST DTL Lavage-ICH (Bronchoalveolar Lavage-ICH) 07/02/2024 2:07 PM ROENTGENOLOGIST Lamberto Schaefer M.D. LAB MICROBIOLOGY - GENERAL ORD ERABLES Final Result Performing Organization Address City/[facility]/ZIP Co de Phone Number [facility] [address] [place] [address], [facility] [address] [place] [address] * Gram Stain (07/02/2024 2:07 PM ROENTGENOLOGIST) Only the most recent of2 resultswithin the time period is included. Gram Stain No organisms seen. White blood cells present. 07/02/2024 6:04 PM ROENTGENOLOGIST DTL Lavage-ICH (Bronchoalveolar Lavage-ICH) 07/02/2024 2:07 PM ROENTGENOLOGIST Lamberto Schaefer M.D. LAB MICROBIOLOGY - GENERAL ORD ERABLES Final Result Performing Organization Address City/[facility] Co de Phone Number [facility] [address] [facility] [address] [place] [address] * (ABNORMAL) Fungal Culture, Routine (07/02/2024 2:07 PM ROENTGENOLOGIST) Only the most recent of2 resultswithin the time period is included. Pathologist [facility] Fungal Culture, Routine ASPERGILLUS FUMIGATUS COMPLEX Many (A) 07/26/2024 8:50 AM ROENTGENOLOGIST DTL Comment: Semi-Urgent Result. Susceptibility testing is not indicated for all molds. Not all molds are clinically significant. If the ordering clinician feels that the culture result is clinically significant, infectious disease consultation is required to order mold susceptibility testing. Semi-Urgent This is a semi-urgent result(STODDARD) [facility] Lavage-ICH (Bronchoalveolar Lavage-ICH) 07/02/2024 2:07 PM ROENTGENOLOGIST Lamberto Schaefer M.D. LAB MICROBIOLOGY - GENERAL ORD ERABLES Final Result Performing Organization Address City/[facility]/ZIP Co de Phone Number [facility] [address] DTL [facility] [address] [place] [address] * Surgery Image Exam-Surgery Image Exam (07/02/2024 1:45 PM ROENTGENOLOGIST) Only the most recent of2 resultswithin the time period is included. 07/02/2024 1:36 PM ROENTGENOLOGIST Narrative IIMS - 07/02/2024 2:27 PM ROENTGENOLOGIST This order has been created and auto-finalized to support the import of images acquired without order. The clinical documentation to support these images can be found on the encounter that produced images. us Provider Not In System IMG NON RAD IMAGING PROCE DURES Final Result IIMS NA * (ABNORMAL) Respiratory Panel, PCR, Nasopharyngeal (07/02/2024 7:50 AM ROENTGENOLOGIST) Specimen Source NASOPHARYNGEAL SWAB 07/02/2024 10:25 AM ROENTGENOLOGIST DTL Adenovirus Undetected Undetected 07/02/2024 10:25 AM ROENTGENOLOGIST DTL Coronavirus 229E Undetected Undetected 07/02/19 10:25 AM ROENTGENOLOGIST DTL Coronavirus HKU1 Undetected Undetected 07/02/19 10:25 AM ROENTGENOLOGIST DTL Coronavirus NL63 Undetected Undetected 07/02/19 10:25 AM ROENTGENOLOGIST DTL Coronavirus OC43 Undetected Undetected 07/02/19 10:25 AM ROENTGENOLOGIST DTL SARS Coronavirus-2 Undetected Undetected 07/02/2024 10:25 AM ROENTGENOLOGIST DTL Comment: SARS-CoV-2 RNA absent. This result does not rule out COVID-19 in the patient, as the sensitivity of the test depends on the timing of the specimen collection and the quality of the specimen. Result should be correlated with patient's history and clinical presentation. Human Metapneumovirus Detected(A) Undetected 07/02/2024 10:25 AM ROENTGENOLOGIST DTL Human Rhinovirus/ Enterovirus Undetected Undetected 07/02/2024 10:25 AM ROENTGENOLOGIST DTL Influenza A Undetected Undetected 07/02/2024 10:25 AM ROENTGENOLOGIST DTL Influenza B Undetected Undetected 07/02/2024 10:25 AM ROENTGENOLOGIST DTL Parainfluenza Virus 1 Undetected Undetected 07/02/2024 10:25 AM ROENTGENOLOGIST DTL Parainfluenza Virus 2 Undetected Undetected 07/02/2024 10:25 AM ROENTGENOLOGIST DTL Parainfluenza Virus 3 Undetected Undetected 07/02/2024 10:25 AM ROENTGENOLOGIST DTL Parainfluenza Virus 4 Undetected Undetected 07/02/2024 10:25 AM ROENTGENOLOGIST DTL Respiratory Syncytial Virus Undetected Undetected 07/02/2024 10:25 AM ROENTGENOLOGIST DTL Bordetella parapertussis Undetected Undetected 07/02/2024 10:25 AM ROENTGENOLOGIST DTL Bordetella pertussis Undetected Undetected 07/02/2024 10:25 AM ROENTGENOLOGIST DTL Chlamydia pneumoniae Undetected Undetected 07/02/2024 10:25 AM ROENTGENOLOGIST DTL Mycoplasma pneumoniae Undetected Undetected 07/02/2024 10:25 AM ROENTGENOLOGIST DTL Interpretation This assay is not predicted to detect SARS-coronavirus (CoV), or MERS-CoV. If SARS-CoV or MERS-CoV is suspected, coordinate testing through a local public health laboratory. 07/02/2024 10:25 AM ROENTGENOLOGIST DTL Comment: ----ADDITIONAL INFORMATION---- This assay is performed using the FDA-Cleared FilmArray Respiratory Panel 2.1 ([place]). Swab (Nasopharynx) 07/02/2024 7:50 AM ROENTGENOLOGIST 07/02/2024 8:45 AM ROENTGENOLOGIST Magaly Shen M.D. LAB MICROBIOLOGY - GENERAL ORDERABLES Final Result [facility] [address] [place] [address], [facility] [address] [place] [address] * HIV-1/-2 Ag and Ab Screen, Plasma (07/02/2024 12:09 AM ROENTGENOLOGIST) [facility] HIV-1/-2 Ag and Ab Screen, P Negative Negative 07/02/2024 12:54 PM ROENTGENOLOGIST [facility] Comment: Negative result does not rule out HIV infection. If exposure to HIV infection occurred <14 days ago, contact the laboratory to request addition of HIV-1/HIV-2 RNA detection, Plasma (HIP12). Blood (Blood, Venous) 07/02/2024 12:09 AM ROENTGENOLOGIST 07/02/2024 8:15 AM ROENTGENOLOGIST Georgiana Miranda M.D. LAB MICROBIOLOGY - BLOOD O RDERABLES Final Result Performing Organization Address [facility] Co de Phone Number [facility] [address] [place] [address] [facility] [address] [place] [address] * Histoplasma and Blastomyces Antigen, Enzyme Immunoassay, Urine (07/01/2024 5:58 PM ROENTGENOLOGIST) Pathologist [facility] Histoplasma/Blasto myces Ag Result Not Detected Not Detected 07/02/2024 11:43 AM ROENTGENOLOGIST [facility] Comment: No antigen from Histoplasma or Blastomyces detected. False negative results may occur depending on extent of disease, and/or site of infection. Repeat testing on a new specimen if clinically indicated. Histoplasma/Blasto myces Ag Value Not Detected ng/mL 07/02/2024 11:43 AM ROENTGENOLOGIST [facility] Comment: ----ADDITIONAL INFORMATION---- This test was developed and its performance characteristics determined by [facility] in a manner consistent with CLIA requirements. This test has not been cleared or approved by the U.S. Food and Drug Administration. Urine (Urine, Midstream) 07/01/2024 5:58 PM ROENTGENOLOGIST 07/02/2024 7:39 AM ROENTGENOLOGIST Magaly Shen M.D. LAB MICROBIOLOGY - GENERAL ORDERABLES Final Result Performing Organization Address [facility] Co de Phone Number [facility] [address] [place] [address] [facility] [address] [place] [address] * Streptococcus pneumoniae Antigen, Urine (07/01/2024 5:58 PM ROENTGENOLOGIST) Pathologist [facility] Streptococcus pneumoniae Ag, U Negative Negative 07/02/2024 2:15 PM ROENTGENOLOGIST [facility] Comment: Negative for pneumococcal pneumonia, suggesting no current or recent infection. Infection due to S. pneumoniae cannot be ruled out since the antigen present in the sample may be below detection limit of the test. ----ADDITIONAL INFORMATION---- This assay was performed using the FDA-cleared BinaxNOW Streptococcus pneumoniae Antigen test, a rapid immunochromatographic assay. Urine (Urine, Midstream) 07/01/2024 5:58 PM ROENTGENOLOGIST 07/02/2024 7:33 AM ROENTGENOLOGIST Magaly Shen M.D. LAB MICROBIOLOGY - GENERAL ORDERABLES Final Result Performing Organization Address City/[facility]/ZIP Co de Phone Number [facility] [address] [place] [address] [facility] [address] [place] [address] [place] [address] * Legionella Antigen, Urine (07/01/2024 5:58 PM ROENTGENOLOGIST) [facility] Legionella Ag, U Negative Negative 07/02/19 2:32 PM ROENTGENOLOGIST [facility] Comment: Negative for L. pneumophila serogroup 1 antigen, suggesting no recent or current infection. Infection due to Legionella cannot be ruled out since other serogroups and species may cause disease, antigen may not be present in urine in early infection, and the level of antigen present in the urine may be below the detection limit of the test. ----ADDITIONAL INFORMATION---- This assay was performed using the FDA-cleared BinaxNOW Legionella Urinary Antigen Test, a rapid immunochromatographic assay. Urine (Urine, Midstream) 07/01/2024 5:58 PM ROENTGENOLOGIST 07/02/2024 7:33 AM ROENTGENOLOGIST Magaly Shen M.D. LAB MICROBIOLOGY - GENERAL ORDERABLES Final Result Performing Organization Address [facility] Co de Phone Number [facility] [address] [place] [address] [facility] [address] [place] [address] [place] [address] * Aspergillus Ag (07/01/2024 12:16 PM ROENTGENOLOGIST) [facility] Aspergillus Ag, S <0.500 <0.5 index 07/02/2024 10:04 PM ROENTGENOLOGIST [facility] Comment: ----ADDITIONAL INFORMATION---- This is a qualitative test and the resulted index value is not indicative of disease severity. Serial testing is recommended for patients at high risk for invasive aspergillosis. This assay was performed using the FDA-cleared Bio-Rad Platelia Aspergillus Galactomannan EIA. Blood (Blood, Venous) 07/01/2024 12:16 PM ROENTGENOLOGIST 07/02/2024 6:03 AM ROENTGENOLOGIST Georgiana Miranda M.D. LAB MICROBIOLOGY - BLOOD O RDERABLES Final Result Performing Organization Address [facility] Co de Phone Number [facility] [address] [place] [address] [facility] [address] [place] [address] [place] [address] * Staph aureus / MRSA, Nasal, PCR (06/30/2024 10:07 PM ROENTGENOLOGIST) Staphylococcus aureus, PCR Negative Negative 07/01/2024 12:12 AM ROENTGENOLOGIST DTL MRSA, PCR Negative Negative 07/01/2024 12:12 AM ROENTGENOLOGIST DTL Swab (Nares) 06/30/2024 10:0 7 PM ROENTGENOLOGIST 06/30/2024 10:53 PM ROENTGENOLOGIST Amanda Encinas M.D. LAB MICROBIOLOGY - GENE RAL ORDERABLES Final Result Performing Organization Address [facility] Co de Phone Number [facility] [address] [place] [address], [facility] [address] [place] [address] * Bacteria / Gerda Culture, Blood #2 (06/30/2024 7:58 PM ROENTGENOLOGIST) Only the most recent of2 resultswithin the time period is included. Bacteria/Kate da Culture, Blood No growth after 5 days of incubation. 07/05/2024 9:02 PM ROENTGENOLOGIST DTL Blood (Blood, Peripheral Draw) 06/30/2024 7:58 PM ROENTGENOLOGIST 06/30/2024 9:00 PM ROENTGENOLOGIST Comment:Specimen Source Site : Blood Narrative [facility] - 07/05/2024 9:02 PM ROENTGENOLOGIST Received Bactec aerobic and Bactec anaerobic bottles Magaly Shen M.D. LAB MICROBIOLOGY - GENERAL ORDERABLES Final Result [facility] [address] [place] [address], [facility] DTL [facility] [address] [place] [address] * Histoplasma Antibody Complement Fixation and Immunodiffusion (06/30/2024 7:50 PM ROENTGENOLOGIST) Histoplasma Yeast CompFix, S Negative Negative 07/04/2024 1:52 PM ROENTGENOLOGIST [facility] Histoplasma Immunodiffusion, S Negative Negative 07/04/2024 1:52 PM ROENTGENOLOGIST [facility] Comment: A negative complement fixation and immunodiffusion (CF/ID) result does not exclude the diagnosis of histoplasmosis. Repeat testing by CF/ID in 1-2 weeks if clinically indicated. Blood (Blood, Venous) 06/30/2024 7:50 PM ROENTGENOLOGIST 07/01/2024 9:10 AM ROENTGENOLOGIST us Magaly Shen M.D. LAB BLOOD ADD-ON Final Resu lt [facility] [address] [place] [address] [facility] [address] [place] [address] [place] [address] * (ABNORMAL) (1, 3) Jihb-N-Yosxqa (Fungitell), Serum (06/30/2024 7:50 PM ROENTGENOLOGIST) Pathologist [facility] (1, 3) Vppi-B-Lrebhb, Quantitative >500(A) <60 pg/mL pg/mL 07/02/2024 2:44 PM ROENTGENOLOGIST [facility] (1, 3) Qtjk-K-Mtlkte, Qualitative Positive( A) Negative 07/02/2024 2:44 PM ROENTGENOLOGIST [facility] Comment: (1, 3) Nvnb-T-Njvatx detected. A single positive result should be interpreted with caution and correlated alongside consideration of patient risk for invasive fungal disease, results of routine laboratory tests (e.g., bacterial and fungal culture, histopathologic evaluation, etc.) and radiologic findings. Repeat testing on a new sample (collected in 3-4 days) is recommended as serially positive samples are associated with a higher diagnostic odds ratio for invasive fungal infection compared to a single positive result. False positive results may occur in patients who have recently undergone hemodialysis, treatment with certain fractionated blood products (e.g., serum albumin, immunoglobulins), and/or those who have had significant exposure to glucan-containing gauze during surgery. This assay does not detect certain fungi, including Cryptococcus species, which produce very low levels of (1, 3) Ngkw-H-Juscxy (BDG) and the Mucorales (e.g., Lichthemia, Mucor and Rhizopus), which are not known to produce BDG. Additionally, the yeast phase of Blastomyces dermatitidis produces little BDG and may not be detected by this assay. ----ADDITIONAL INFORMATION---- This assay was performed using the FDA-cleared Fungitell Assay ([facility], [place], [place], [facility]), a kinetic OANH based on modification of the Limulus Amebocyte Lysate pathway. Blood (Blood, Venous) 06/30/2024 7:50 PM ROENTGENOLOGIST 07/01/2024 9:12 AM ROENTGENOLOGIST Magaly Shen M.D. LAB MICROBIOLOGY - BLOOD OR DERABLES Final Result [facility] [address] [place] [address] [facility] [address] [place] [address] [place] [address] * (ABNORMAL) Renal Function Panel (06/30/2024 7:50 PM ROENTGENOLOGIST) Potassium, S 4.5 3.6 - 5.2 mmol/L 06/30/2024 9:01 PM ROENTGENOLOGIST DTL Sodium, S 132(L) 135 - 145 mmol/L 06/30/2024 9:01 PM ROENTGENOLOGIST DTL Chloride, S 99 98 - 107 mmol/L 06/30/2024 9:01 PM ROENTGENOLOGIST DTL Bicarbonate, S 22 22 - 29 mmol/L 06/30/2024 9:01 PM ROENTGENOLOGIST DTL Anion Gap 11 7 - 15 06/30/2024 9:01 PM ROENTGENOLOGIST DTL BUN (Blood Urea Nitrogen), S 29(H) 8 - 24 mg/dL 06/30/2024 9:01 PM ROENTGENOLOGIST DTL Creatinine 0.97 0.74 - 1.35 mg/dL 06/30/2024 9:01 PM ROENTGENOLOGIST DTL Estimated GFR (eGFR) 80 >=60 mL/min/BSA 06/30/2024 9:01 PM ROENTGENOLOGIST DTL Comment: Estimated GFR calculated using the 2020 CKD_EPI creatinine equation. Calcium, Total, S 8.2(L) 8.8 - 10.2 mg/dL 06/30/2024 9:01 PM ROENTGENOLOGIST DTL Glucose, S 122 70 - 140 mg/dL 06/30/2024 9:01 PM ROENTGENOLOGIST DTL Albumin, S 3.3(L) 3.5 - 5.0 g/dL 06/30/2024 9:01 PM ROENTGENOLOGIST DTL Phosphorus (Inorganic), S 3.6 2.5 - 4.5 mg/dL 06/30/2024 9:01 PM ROENTGENOLOGIST DTL Blood (Blood, Venous) 06/30/2024 7:50 PM ROENTGENOLOGIST 06/30/2024 8:46 PM ROENTGENOLOGIST Magaly Shen M.D. LAB BLOOD ADD-ON Final Resu lt [facility] [address] [place] [address], [facility] [address] [place] [address] * Blastomyces Ab, EIA (06/30/2024 7:49 PM ROENTGENOLOGIST) Blastomyces Ab, EIA, S Negative Negative 07/02/2024 7:53 PM ROENTGENOLOGIST [facility] Comment: A single negative result does not exclude the diagnosis of blastomycosis. Repeat testing on a new sample in 7-14 days if clinically indicated. Blood (Blood, Venous) 06/30/2024 7:49 PM ROENTGENOLOGIST 07/01/2024 8:34 AM ROENTGENOLOGIST Magaly Shen M.D. LAB MICROBIOLOGY - BLOOD OR DERABLES Final Result Performing Organization Address [facility] Co de Phone Number [facility] [address] [place] [address] [facility] [address] [place] [address] * Coccidioides Ab Screen w/Reflex, Serum (06/30/2024 7:49 PM ROENTGENOLOGIST) [facility] Coccidioides Ab Screen, S Negative Negative 07/02/2024 8:51 PM ROENTGENOLOGIST [facility] Comment: Repeat testing on a new sample in 2-3 weeks if clinically indicated. ----ADDITIONAL INFORMATION---- This test has been modified from the psychologist military personnel's instructions. Its performance characteristics were determined by [facility] in a manner consistent with CLIA requirements. This test has not been cleared or approved by the U.S. Food and Drug Administration. Blood (Blood, Venous) 06/30/2024 7:49 PM ROENTGENOLOGIST 07/01/2024 8:34 AM ROENTGENOLOGIST Magaly Shen M.D. LAB MICROBIOLOGY - BLOOD OR DERABLES Final Result Performing Organization Address [facility] Co de Phone Number [facility] [address] [place] [address] [facility] [address] [place] [address] * Interpretation of Outside CT Chest (06/30/2024 7:04 PM ROENTGENOLOGIST) Anatomical Region Laterality Modality Chest, Thoracic RST LOS, Tho racic ARZ LOS, Thoracic FLA LOS, Other, Body N/A Computed Tomography Impressions 06/30/2024 8:48 PM ROENTGENOLOGIST 1. No acute pulmonary embolism. 2. Interval significant worsening of the pulmonary opacities, suggestive of infectious process including fungal infection. 3. Enlarged lower cervical, mediastinal, hilar, abdominal conglomerated lymph nodes concerning for lymphoproliferative disease. Narrative 06/30/2024 8:48 PM ROENTGENOLOGIST EXAM: INTERPRETATION OF OUTSIDE CT CHEST CT chest with IV contrast performed at outside center on 06/30/2024. COMPARISON: CTs from 06/28/2024 06/21/2024 and 06/14/2023. PET/CT from 03/26/2024. FINDINGS: Interval significant worsening of the multifocal patchy opacities in both lungs, largest opacity in the left upper lung involving at least 2/3 of the lung parenchyma. Irregular multiple parenchymal nodules and groundglass opacities, mostly centered around the consolidative opacities. Bilateral trace pleural effusions. Diffuse peribronchial thickening. Interlobular septal thickening. No acute pulmonary embolism. Mild enlargement of the left atrium. Otherwise normal cardiac chambers. Extensive vascular calcifications including coronary arteries. Mitral valve stent. Mild prominence of the aortic sinus. No aortic aneurysm. Enlarged bilateral lower cervical, mediastinal, bilateral hilar and axillary lymph nodes, left greater than right as well as enlarged paraortic conglomerated lymph nodes, indeterminate concerning for lymphoproliferative disease. Diffuse body wall edema. Partially visualized mesenteric edema. Nodular thickening of left adrenal gland, likely adenoma. Demineralization. Mild anterior wedging of the midthoracic spine, similar to prior. Spondylosis of the thoracic spine with bridging anterior osteophytes. No acute rib fracture. Few subcentimeter hepatic hypodensities, too small to characterize. Procedure Note Meagan Leroy M.D. - 06/30/2024 EXAM: INTERPRETATION OF OUTSIDE CT CHEST CT chest with IV contrast performed at outside center on 06/30/2024. COMPARISON: CTs from 06/28/2024 06/21/2024 and 06/14/2023. PET/CT from03/26/2024. FINDINGS: Interval significant worsening of the multifocal patchy opacities in bothlungs, largest opacity in the left upper lung involving at least 2/3 ofthe lung parenchyma. Irregular multiple parenchymal nodules andgroundglass opacities, mostly centered around the consolidative opacities. Bilateral trace pleural effusions.Diffuse peribronchial thickening. Interlobular septal thickening. No acute pulmonary embolism. Mild enlargement of the left atrium.Otherwise normal cardiac chambers. Extensive vascular calcificationsincluding coronary arteries. Mitral valve stent. Mild prominence of theaortic sinus. No aortic aneurysm. Enlarged bilateral lower cervical, mediastinal, bilateral hilar andaxillary lymph nodes, left greater than right as well as enlargedparaortic conglomerated lymph nodes, indeterminate concerning forlymphoproliferative disease. Diffuse body wall edema. Partially visualized mesenteric edema. Nodularthickening of left adrenal gland, likely adenoma. Demineralization. Mild anterior wedging of the midthoracic spine, similarto prior. Spondylosis of the thoracic spine with bridging anteriorosteophytes. No acute rib fracture. Few subcentimeter hepatichypodensities, too small to characterize. IMPRESSION: 1. No acute pulmonary embolism. 2. Interval significant worsening of the pulmonary opacities, suggestiveof infectious process including fungal infection. 3. Enlarged lower cervical, mediastinal, hilar, abdominal conglomeratedlymph nodes concerning for lymphoproliferative disease. us Magaly Shen M.D. IMG CT PROCEDURES Final Res ult * CT CHEST W CON-Outside CT Body (06/30/2024 8:55 AM ROENTGENOLOGIST) Only the most recent of4 resultswithin the time period is included. 06/30/2024 8:51 AM ROENTGENOLOGIST Narrative IIMS - 06/30/2024 11:36 AM ROENTGENOLOGIST This order has been created and auto-finalized to support the import of outside images. If available, original interpretation can be found on the Media Tab in Chart Review, in Document Viewer, as an image in QREADS or as an Addendum. If a re-interpretation or overread is required please follow defined workflow. us Provider Not In System IMG CT PROCEDURES Final R esult IIMS NA from Last 3 Months Insurance MEDICARE [facility] Advance Directives For more information, please contact: [phone] * Full Code (Latest Code Status on File) Date Activated Date Inactivated Comments 07/19/2024 9:18 PM 07/29/2024 3:55 PM Question Answer Comments Full Code: Discussed * Full Code Date Activated Date Inactivated Comments 07/19/2024 9:18 PM 07/19/2024 9:18 PM Question Answer Comments Full Code: Discussed * Full Code Date Activated Date Inactivated Comments 06/30/2024 6:56 PM 07/07/2024 7:49 PM Question Answer Comments Full Code: Discussed * Full Code Date Activated Date Inactivated Comments 01/06/2022 5:12 PM 01/09/2022 4:47 PM Question Answer Comments Full Code: Discussed * Full Code Date Activated Date Inactivated Comments 06/28/2019 12:14 PM 06/29/2019 2:37 PM Question Answer Comments Full Code: Discussed Care Teams Gm Video Relationship Specialty Start Date End Date Elsewhere, Pcp PCP - General Car Refinisher 06/27/19
--- OUTSIDE RECORDS SUMMARY | 2024-09-11 11:37 | XMS_ITS | Encounter Summary ---
Author Organization [facility] Address [address] [place] [address] Care Team Providers Care Limited Radiology Technician Name Role Phone Elsewhere, Pcp Primary Care Provider Unavailabl e Encounter Details Date Type Department Care Team (Late st Contact Info) Description 08/30/2024 Orders Only Department of Oncology in [place], [place] [address] [place] [address] Birdie Hurtado M.D. [address] [place] [phone] Social History Tobacco Use Types Packs/Day Years Used Date Smoking Tobacco: Never Smokeless Tobacco: Never Alcohol Use Standard Drinks/Week Comments Never 0 (1 standard drink = 0.6 oz pur e alcohol) [facility] Utilities Answer Date Recorded In the past 12 months has health system [employer], gas, oil, or water [employer] threatened to shut off services in your [...] How often do you attend anglican or sabianist serv ices? Never 06/30/2021 Do you belong [...] Not hard at all 06/30/2021 [facility] - Occupational Stress [...] your living situation today? I have a [facility] place to live 07/19/2024 Education Answer Date Recorded What is the highest level of school you have completed or the highest degree you have received? Professional school degree (e.g., MD, DDS, DVM, GRACIELA) 06/30/2021 Sex and Gender Information Value Date Recorded Sex Assigned at Male 06/30/2021 12:19 PM WILD LIFE MANAGER Legal Sex Male 7:31 AM CDT Gender Identity Male 06/30/2021 12:19 PM WILD LIFE MANAGER Sexual Orientation Straight 06/30/2021 12 :19 PM WILD LIFE MANAGER documented as of this encounter Functional Status [...] No 07/01/2024 10:08 AM Cheryl Mensah M.S.W., Jign. * Because of a physical, mental, or emotional condition, do you have serious difficulty doing errandsalone such as visiting the doctor? Answer Date of Assessment Author No 07/01/2024 10:08 AM Cheryl Mensah M.S.W., Crow documented as of this encounter Mental Status * Because of a physical, mental, or emotional condition, do you have serious difficulty concentrating, remembering, or making decisions? (5 years old or older) Answer Entry Date Author No 07/01/2024 10:08 AM Cheryl Mensah M.S.W., Crow documented in this encounter Plan of Treatment Upcoming Encounters Date Type Department Care Team (Late st Contact Info) Description 09/24/2024 7:45 AM CDT Appointment Department of Radiology, [facility] in [place], [place] [address] [place] [phone] Julio Soto M.D. [address] [place] [phone] 09/24/2024 9:30 AM CDT Diagnostic Division of Pulmonary Medicine in [place], [place] [address] [place] [phone] Marilu Castaneda P.A.-C., M.S. [address] [place] [phone] 09/24/2024 10:40 AM CDT Appointment Department of Laboratory Medicine and Pathology, [facility] in [place], [place] [address] [place] [phone] Marilu Castaneda P.A.-C., M.S. [address] [place] [phone] 09/24/2024 2:30 PM CDT Office Visit Section of Infectious Diseases in [place], [place] [address] [place] [phone] Julio Soto M.D. [address] [place] [phone] documented as of this encounter Visit Diagnoses Not on filedocumented in this encounter Additional Health Concerns Infection Onset Date Last Indicated Resolved Time Protective Environment 09/20/2022 09/20/202208/30 5:23 AM CDT Assessment Noted Time PHQ-9 Depression Total Score: 6 07/17/19 20 10:26 AM WILD LIFE MANAGER documented as of this encounter Care Teams Limited Radiology Technician Relationship Specialty Start Date End Date Elsewhere, Pcp PCP - General Dermatology Procedural Physician 06/27/19 documented as of this encounter
--- OUTSIDE RECORDS SUMMARY | 2024-09-11 11:37 | XMS_ITS | Encounter Summary ---
Author Organization [facility] Address [address] [place] [phone] Care Team Providers Care Lumber Buyer Name Role Phone Elsewhere, Pcp Primary Care Provider Unavailabl e Reason for Referral * Outpatient (Routine) - Authorized Specialty Diagnoses / Procedures Referred By Contac t Referred To Contact Cardiovascular Disease Marilu Castaneda P.A.-C., M.S. [address] [place] [phone] Phone: tel: fax: [facility] Referral ID Status Reason Start Date Expiration Date V isits Requested Visits Authorized [id number] Authorized 08/29/2024 02/28/2026 1 1 Reason for Visit * Outpatient (Routine) - Closed Specialty Diagnoses / Procedures Referred By Contac t Referred To Contact Cardiovascular Disease Marilu Castaneda P.A.-C., M.S. [address] [place] [phone] Phone: tel: fax: Ron Santana M.D., Ph.D. [address] [place] [phone] Phone: tel: fax: Referral ID Status Reason Start Date Expiration Date Visits Re quested Visits Authorized [id number] Closed 01/13/2024 07/14/2025 1 1 Encounter Details Date Type Department Care Team (Latest Contact Info) Description 08/29/2024 9:00 AM CDT Office Visit Department of Cardiovascular Medicine in [place], [place] [address] [place] [phone] Marilu Castaneda P.A.-C., M.S. [address] [place] [phone] Monitoring For Therapeutic Drug Therapy (Primary Dx) Social History Tobacco Use Types Packs/Day Years Used Date Smoking Tobacco: Never Smokeless Tobacco: Never Alcohol Use Standard Drinks/Week Comments Never 0 (1 standard drink = 0.6 oz pur e alcohol) [facility] Utilities Answer Date Recorded In the past 12 months has e [employer], gas, oil, or water [employer] threatened to shut off services in your [...] week 06/30/2021 How often do you attend protestant or scientologist serv ices? Never 06/30/2021 Do you belong to any clubs o r organizations such as protestant groups, unions, fraternal or athletic groups, or [...] and heating? Not hard at all 06/30/2021 [facility] - Occupational [...] your living situation today? I have a [facility] place to live 07/19/2024 Education Answer Date Recorded What is the highest level of school you have completed or the highest degree you have received? Professional school degree (e.g., MD, DDS, DVM, GRACIELA) 06/30/2021 Sex and Gender Information Value Date Recorded Sex Assigned at Male 06/30/2021 12:19 PM M48 M60 ARMOR CREWMAN Legal Sex Male 7:31 AM CDT Gender Identity Male 06/30/2021 12:19 PM M48 M60 ARMOR CREWMAN Sexual Orientation Straight 06/30/2021 12 :19 PM M48 M60 ARMOR CREWMAN documented as of this encounter Last Filed Vital Signs Vital Sign Reading Time Taken Comments Blood Pressure 143/77 08/29/2024 8:53 AM CDT Pulse 62 08/29/2024 8:53 AM CDT Temperature - - Respiratory Rate - - Oxygen Saturation - - Inhaled Oxygen Concentration - - Weight 73.9 kg (163 lb 0.5 oz) 08/29/2024 8:53 A M CDT Height 176.9 cm (5' 9.65) 08/29/2024 8:53 AM CD T Body Mass Index 23.63 08/29/2024 8:53 AM CDT documented in this encounter Functional Status * Are you deaf or do you have serious difficulty hearing? Answer Date of Assessment Author No 07/01/2024 10:08 AM Cheryl Mensah M.SWyatt, L.G.S.W. * Are you blind or do [...] Mensah M.S.W., Jing. documented in this encounter Patient Instructions * Patient Instructions* Marilu Castaneda P.A.-C., M.S. - 08/29/2024 9:00 AM CDT -Take Lasix (furosemide) 20 mg daily until weight 155 lb - If weight gain of 2 lb within 24 hours, take 20 mg lasix documented in this encounter Progress Notes * Marilu Castaneda P.A.-C., M.S. - 08/29/2024 9:00 AM CDT CHIEF COMPLAINT/REASON FOR VISIT Atrial fibrillation SUBJECTIVE HISTORY OF PRESENT ILLNESS Chad Jensen is a 79 y.o. male who is here for follow up of atrial fibrillation. 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 Mr. Jensen is an [facility] the patient who is followed for atrial arrhythmiasin the setting of prior cryo balloon ablation in 2020 (incomplete pulmonary vein isolation). Due torecurrence he was started on sotalol which was subsequently transitioned to amiodarone in 2022. This resulted in good rhythm control but unfortunately worsened his tremor symptoms and resulted in hypothyroidism requiring supplementation. In this context redo ablation has been discussed. His procedure has now been postponed twice, the 1st due to need to be off of anticoagulation due to recently discovered parotid gland carcinoma in the 2nd in January of last year due to severe MR in the setting of prior transcatheter mitral valve repair. He was continued on amiodarone 100 mg daily and referred to the [facility]. He was seen by Dr. Thakkar and Taniya Tam NP in March. It was felt adding a second MitraClip device lateral to the prior MitraClip could produce mitral stenosis. Given lack of symptoms of mitral regurgitation, uncertain prognosis in the setting of metastatic melanoma, a conservative approach favored and he is scheduled to be re-evaluated in 1 year. He was hospitalized in June for treatment of multifocal pneumonia, underwent bronchoscopy, and was positive for Aspergillus. He was treated with a prolonged course posaconazole. Due to procedure as well as hemoptysis, anticoagulation was interrupted. He then presented in July with palpitations and atrial fibrillation with RVR. Symptoms persisted despite rate control any ultimately underwent MERVAT guided cardioversion. Anticoagulation was transitioned to Coumadin given interaction of DOAC with posaconazole. Metoprolol increased to 50 mg twice daily. Amiodarone was increased to 200 mg daily due to an amiodarone level 0.4 (desethylamiodarone 0.2). Amiodarone levels repeated locally on 08/17 showed an amiodarone level of 1.2 and desethylamiodarone of 0.4. In terms of amiodarone surveillance testing, TSH 4.4 (free T4 1.8) on 07/19. ALT and AST within normal limits on 07/24. He did have follow-up with Infectious Disease on 08/13 with noted clinical and radiographic improvement. They are recommending completing his posaconazole course and monthly surveillance liver enzyme testing. I note ALT elevated at 65 yesterday. He returns today in follow up. He reports no recurrence of atrial fibrillation since his hospital dismissal. He has continued on 200 mg a day of amiodarone and denies any new intolerance. He remainedthe pasta console and met with infectious disease a few weeks ago with intention to reimage next month. Long- term management is to be determined. They are monitoring posaconazole surveillance labs including liver enzymes. He tells me that he was restarted on Keytruda and received an infusion last . He remains off of acalabrutinib and pembrolizumab and has noted enlarging nodes/glands under the jaw. Prior to receiving the infusion he began to note a bit more exertional dyspnea symptoms that he feels is progressing and now he is short of breath walking with in his home. No rest symptomsor PND. He is under the impression that he was to stop Lasix altogether after his hospitalization last month and therefore has not taken any. His weight has climbed from 150 lb following hospital dismissal. He noted a weight of 158 on his home scale this morning. He has also noted some progression in lower extremity edema. He inquires as to whether Lasix was stopped due to a drug interaction. The following portions of the patient's history were reviewed and updated as appropriate: allergies, current medications, family history, medical history, social history, surgical history, psychiatric history, substance abuse history, problem list, labs, diagnostics tests. I also reviewed pertinentclinical notes in the electronic health record. Allergies Allergen Reactions Ibrutinib Rash Penicillins Hives (Reselect Reaction) *reaction when teenager, Penicillin G. Current Medications[1] SOCIAL HISTORY Social History[2] FAMILY HISTORY Family History[3] REVIEW OF SYSTEMS All systems reviewed and negative except as stated in the HPI. OBJECTIVE BP 143/77 (BP Location: Left arm, Patient Position: Sitting, Cuff Size: Regular) Pulse 62 Ht 176.9 cm Wt 73.9 kg BMI 23.63 kg/m?? Body mass index is 23.63 kg/m??. Wt Readings from Last 6 Encounters: 08/29/24 73.9 kg 08/13/24 70.7 kg 07/27/24 67.8 kg 06/30/24 70.5 kg 03/13/24 76 kg 01/13/24 77 kg PHYSICAL EXAMINATION General: Well groomed and in no acute distress. Skin: Warm and dry. Heart: Regular rhythm, regular rate. S1, S2. I can not appreciate any significant regurgitant murmur. At 90?? JVP is apparent just below the mandible. Lungs: Clear to auscultation bilaterally. Breathing is unlabored. Extremities: 1 to 2+ pitting LE edema predominantly at the ankles, extending above ankle on right. Neuro: Alert and oriented to person, place and time. Psych: Appropriate mood and affect. DIAGNOSTICS All pertinent labs and diagnostic studies were reviewed ECG 08/29/2024 Sinus rhythm Premature atrial complexes Otherwise normal ECG When compared with ECG of 29-Jul-2024 07:29, Premature atrial complexes are now present CO interval has decreased HR 68 bpm, CO 176, QRS 98, QTC 469 Labs: (external) INR 2.5 08/21; potassium 4.2, ALT 65, alk phos 100 08/28; amiodarone 1.2, desethylamiodarone 0.4 08/17 ASSESSMENT / PLAN #1 Paroxysmal atrial fibrillation status post cryo ablation 2020 #2 Severe mitral regurgitation status post MitraClip for P2 flail with residual severe MR #3 Chronic lymphocytic leukemia on Keytruda #4 Hypertension #5 Personal history of skin cancers #6 Carcinoma of the bilateral 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 Chad Jensen presents for follow-up of atrial fibrillation in the setting of prior cryoablation with incomplete isolation of pulmonary veins in 2020, and mitral regurgitation status post clipping with residual severe MR. He is currently on amiodarone, at a dose of 200 mg daily, which was increased in July after presenting with a recurrent RVR episode. Management of Mr. Jensen's arrhythmia currently is complicated related to his other medical comorbidities. In terms of continuing on amiodarone, concurrent use of posaconazole raises the potential for elevated amiodarone levels. Fortunately, levels were reduced on 100 mg daily and still slightly sub therapeutic on outside labs from 08/17. This will need to be monitored as he continues on concurrent posaconazole. Currently, the duration of use of that antifungal is to be determined. I note slightelevation of ALT as of yesterday. He is scheduled to have monthly checks of liver enzymes while on posaconazole. Rising levels may have implication on ongoing use of amiodarone. He has been trialed on sotalol before, which was ineffective. For now, we will continue use with surveillance as noted above. He is due for PFT testing. Ablation has been deferred in the setting of severe MR. His valve is currently under observation with reassessment planned for March. Last measurement of left atrial volume size was in 2022 at 75. This would have implication on the effectiveness of ablation given these hemodynamics. One could consider pacemaker with AV node ablation in the setting. His episodes have occurred with rapid ventricular rates making this an attractive option. Ideally, he should be cleared from an infection standpoint prior to proceeding. We did review that this option would necessitate device dependency. He is not keen on this altogether, but would be willing to proceed if this was deemed the safest management option. He does have evidence of congestion on exam today, but that is in the setting of his understanding that he was to stop using Lasix. I have advised resumption in use until weight returns to baseline of 155 lb or lower. I recommended ongoing weight surveillance and resumption if he were to gain 2 lb and more than 24 hours. He may be at a point where daily use is necessary. I will contact Mr. Jensen with any additional recommendations after review of his status with Dr. Santana. I will arrange for Mr. Jensen to have a non zmfr-ka-[id number] visit in 3 months' time to reconvene on plan of care. It was a pleasure to meet with Mr. Jensen today in to participate in his care. Total time spent >40 minutes, including znxa-ci-[id number] time and non gtmt-oi-tksy care time. Marilu Castaneda P.A.-C., M.S. 08/29/2024 [1] Current Medications: ALPRAZolam (XANAX) 0.25 mg tablet, Take 0.125 mg by mouth every 12 (twelve) hours as needed for anxiety. amiodarone (Pacerone) 200 mg tablet, Take 1 tablet (200 mg total) by mouth daily. amLODIPine (Norvasc) 5 mg tablet, Take 5 mg by mouth daily. calcium carbonate (calcium carbonate) 1000 mg (400 mg calcium) chewable tablet, Chew 1 tablet 3 (three) times a day as needed for indigestion. DME Oxygen, DME Order - for details see Order Report ferrous sulfate 325 mg (65 mg iron) tablet, Take 1 tablet (65 mg of iron total) by mouth every other day. levothyroxine 112 mcg tablet, Take 112 mcg by mouth daily before morning meal. lisinopriL 10 mg tablet, Take 1.5 tablets (15 mg total) by mouth 2 (two) times a day. magnesium chloride (Slow-Mag) 71.[address] tablet, Take 1 tablet (71.5 mg total) by mouth daily. metoprolol tartrate (Lopressor) 50 mg tablet, Take 1 tablet (50 mg total) by mouth 2 (two) times a day. omeprazole (PriLOSEC) [address] capsule, Take 1 capsule (20 mg total) by mouth daily before morning meal. posaconazole (NoxafiL) [address] tablet, Take 3 tablets (300 mg total) by mouth daily Indications: Aspergillus infection. tamsulosin (FLOMAX) 0.4 mg 24 hr capsule, Take 0.4 mg by mouth daily. warfarin (Jantoven) 5 mg tablet, Take 1.5 tablets (total 7.5 mg) by mouth on 07/29/2024 as directed.INR recheck on 07/30/2024. [2] Social History Tobacco Use Smoking status: Never Smokeless tobacco: Never Vaping Use Vaping status: never used Substance Use Topics Alcohol use: Never Drug use: No [3] Family History Problem Relation Name Age of Onset Lymphoma Father Billy Shoemaker Coronary artery disease Mother Richelle Jensen Hypertension Mother Richelle Jensen documented in this encounter Plan of Treatment Upcoming Encounters Date Type Department Care Team (Late st Contact Info) Description 09/24/2024 7:45 AM CDT Appointment Department of Radiology, [facility], in [place], [place] [address] [place] [phone] Julio Soto M.D. [address] [place] [phone] 09/24/2024 9:30 AM CDT Diagnostic Division of Pulmonary Medicine in [place], [place] [address] [place] [phone] Marilu Castaneda P.A.-C., M.S. [address] [place] [phone] 09/24/2024 10:40 AM CDT Appointment Department of Laboratory Medicine [facility], [facility] in [place], [place] [address] [place] [phone] Marilu Castaneda P.A.-C., M.S. [address] [place] [phone] 09/24/2024 2:30 PM CDT Office Visit Section of Infectious Diseases in [place], [place] [address] [place] [phone] Julio Soto M.D. [address] [place] [phone] Scheduled Orders Name Type Priority Associated Diagnoses Orde r Schedule Pulmonary Function Tests PFT Routine Monitoring For Therapeutic Drug Therapy Expected: 09/29/2024, Expires: 11/29/2025 Amiodarone Level Lab Routine Monitoring For Therapeutic Drug Therapy Expected: 09/24/2024, Expires: 11/29/2025 Scheduled Referrals Name Type Priority Associated Diagnoses Order Schedule Cardiovascular Disease office visit (clinic) [facility]; [facility] Outpatient Referral Routine Expect ed: 11/29/2024 (Approximate), Expires: 11/29/2025 documented as of this encounter Visit Diagnoses Diagnosis Monitoring For Therapeutic Drug Therapy- Primary documented in this encounter Additional Health Concerns Infection Onset Date Last Indicated Resolved Time Protective Environment 09/20/2022 09/20/202208/30 5:23 AM CDT Assessment Noted Time PHQ-9 Depression Total Score: 6 07/17/19 20 10:26 AM M48 M60 ARMOR CREWMAN documented as of this encounter Care Teams Lumber Buyer Relationship Specialty Start Date End Date Elsewhere, Pcp PCP - General Supply Requirements Officer 06/27/19 documented as of this encounter
--- OUTSIDE RECORDS SUMMARY | 2024-09-11 11:38 | XMS_ITS | Encounter Summary ---
Author Organization [facility] Address [address] [place] [address] Care Team Providers Care Commercial Loan Coordinator Name Role Phone Elsewhere, Pcp Primary Care Provider Unavailabl e Encounter Details Date Type Department Care Team (Late st Contact Info) Description 08/21/2024 Orders Only Department of Oncology in [place], [place] [address] [place] [address] Birdie Hurtado M.D. [address] [place] [phone] Social History Tobacco Use Types Packs/Day Years Used Date Smoking Tobacco: Never Smokeless Tobacco: Never Alcohol Use Standard Drinks/Week Comments Never 0 (1 standard drink = 0.6 oz pur e alcohol) [facility] Utilities Answer Date Recorded In the past [address] [facility], gas, oil, or water [employer] threatened to shut off services in your [...] How often do you attend yazdanism or pentecostal serv ices? Never 06/30/2021 Do you belong [...] and heating? Not hard at all 06/30/2021 [facility] of Occupat ional Health - Occupational Stress [...] your living situation today? I have a [facility] place to live 07/19/2024 Education Answer Date Recorded What is the highest level of school you have completed or the highest degree you have received? Professional school degree (e.g., MD, DDS, DVM, GRACIELA) 06/30/2021 Sex and Gender Information Value Date Recorded Sex Assigned at Male 06/30/2021 12:19 PM PERFORMANCE IMPROVEMENT ANALYST Legal Sex Male 7:31 AM CDT Gender Identity Male 06/30/2021 12:19 PM PERFORMANCE IMPROVEMENT ANALYST Sexual Orientation Straight 06/30/2021 12 :19 PM PERFORMANCE IMPROVEMENT ANALYST documented as of this encounter Functional Status [...] 7:45 AM CDT Appointment Department of Radiology, [facility] in [place], [place] [address] [place] [phone] Julio Soto M.D. [address] [place] [phone] 09/24/2024 9:30 AM CDT Diagnostic Division of Pulmonary Medicine in [place], [place] [address] [place] [phone] Marilu Castaneda P.A.-C., M.S. [address] [place] [phone] 09/24/2024 10:40 AM CDT Appointment Department of Laboratory Medicine and Pathology, [facility] in [place], [place] [address] [place] [phone] Marilu Castaneda P.A.-C., M.S. [address] [place] [phone] 09/24/2024 2:30 PM CDT Office Visit Section of Infectious Diseases in [place], [place] [address] [place] [address] Julio Soto M.D. [address] [place] [phone] documented as of this encounter Visit Diagnoses Not on filedocumented in this encounter Additional Health Concerns Infection Onset Date Last Indicated Resolved Time Protective Environment 09/20/2022 09/20/202208/30 5:23 AM CDT Assessment Noted Time PHQ-9 Depression Total Score: 6 07/17/19 20 10:26 AM PERFORMANCE IMPROVEMENT ANALYST documented as of this encounter Care Teams Commercial Loan Coordinator Relationship Specialty Start Date End Date Elsewhere, Pcp PCP - General Ticket Sorter 06/27/19 documented as of this encounter
--- OUTSIDE RECORDS SUMMARY | 2024-09-11 11:38 | XMS_ITS | Encounter Summary ---
Author Organization [facility] Address [address] [place] [address] Care Team Providers Care Preschool Aide Name Role Phone Elsewhere, Pcp Primary Care Provider Unavailabl e Encounter Details Date Type Department Care Team (Late st Contact Info) Description 2024 Orders Only Section of Infectious Diseases in [place], [place] [address] [place] [address] External, Ordering ProviderAnnemarie Social History Tobacco Use Types Packs/Day Years Used Date Smoking Tobacco: Never Smokeless Tobacco: Never Alcohol Use Standard Drinks/Week Comments Never 0 (1 standard drink = 0.6 oz pur e alcohol) [facility] Utilities Answer Date Recorded In the past 12 months has e [employer], gas, oil, or water [employer] threatened to shut off services in your [...] How often do you attend restorationist or pentecostalism serv ices? Never 06/30/2021 Do [...] and heating? Not hard at all 06/30/2021 [facility] of Occupat ional Health - Occupational [...] your living situation today? I have a [facility] place to live 07/19/2024 Education Answer Date Recorded What is the highest level of school you have completed or the highest degree you have received? Professional school degree (e.g., MD, DDS, DVM, GRACIELA) 06/30/2021 Sex and Gender Information Value Date Recorded Sex Assigned at Male 06/30/2021 12:19 PM OPERATIONS RESEARCH DIRECTOR Legal Sex Male 7:31 AM CDT Gender Identity Male 06/30/2021 12:19 PM OPERATIONS RESEARCH DIRECTOR Sexual Orientation Straight 06/30/2021 12 :19 PM OPERATIONS RESEARCH DIRECTOR documented as of this encounter Functional [...] CDT Appointment Department of Radiology, [facility] in [place], [place] [address] [place] [phone] Julio Soto M.D. [address] [place] [phone] 09/24/2024 9:30 AM CDT Diagnostic Division of Pulmonary Medicine in [place], [place] [address] [place] [phone] Marilu Castaneda P.A.-C., M.S. [address] [place] [phone] 09/24/2024 10:40 AM CDT Appointment Department of Laboratory Medicine and Pathology, [facility] in [place], [place] [address] [place] [phone] Marilu Castaneda P.A.-C., M.S. [address] [place] [phone] 09/24/2024 2:30 PM CDT Office Visit Section of Infectious Diseases in [place], [place] [address] [place] [address] Julio Soto M.D. [address] [place] [address] documented as of this encounter Procedures Procedure Name Priority Date/Time Associated Diagnosis Comments POSACONAZOLE, S Routine 2024 11:37 AM CDT documented in this encounter Results * Posaconazole (Noxafil), Level (2024 11:37 AM CDT) EXT Posaconazole level 0.9 >=0.8 ug/ml SCANNED REPORT 2024 11:3 7 AM CDT Narrative SCANNED REPORT - 09/05/2024 8:46 AM CDT External results verified in Extract by Essie Canela on 09/05/2024 at 08:41 AM. us Ordering Provider External M.D. LAB BLOOD NON AD D-ON Final Result SCANNED REPORT documented in this encounter Visit Diagnoses Not on filedocumented in this encounter Additional Health Concerns Infection Onset Date Last Indicated Resolved Time Protective Environment 09/20/2022 09/20/202208/30 5:23 AM CDT Assessment Noted Time PHQ-9 Depression Total Score: 6 07/17/19 20 10:26 AM OPERATIONS RESEARCH DIRECTOR documented as of this encounter Care Teams Preschool Aide Relationship Specialty Start Date End Date Elsewhere, Pcp PCP - General Supervisor Histology 06/27/19 documented as of this encounter
--- OUTSIDE RECORDS SUMMARY | 2024-09-11 11:38 | XMS_ITS | Encounter Summary ---
Author Organization [facility] Address [address] [place] [address] Care Team Providers Care Wheelchair Van Operator First Responder Name Role Phone Elsewhere, Pcp Primary Care Provider Unavailabl e Reason for Visit * Reason Comments OPAT Encounter Details Date Type Department Care Team (Late st Contact Info) Description 08/27/2024 Patient Outreach Section of Infectious Diseases in [place], [place] [address] [place] [phone] Alicia Tavarez R.N. OPAT Social History Tobacco Use Types Packs/Day Years Used Date Smoking Tobacco: Never Smokeless Tobacco: Never Alcohol Use Standard Drinks/Week Comments Never 0 (1 standard drink = 0.6 oz pur e alcohol) [facility] Utilities Answer Date Recorded In the past 12 months has [employer], gas, oil, or water [employer] threatened to shut off services in your [...] How often do you attend caodaism or christianity serv ices? Never 06/30/2021 Do you belong [...] your living situation today? I have a [facility] place to live 07/19/2024 Education Answer Date Recorded What is the highest level of school you have completed or the highest degree you have received? Professional school degree (e.g., , DDS, DVM, GRACIELA) 06/30/2021 Sex and Gender Information Value Date Recorded Sex Assigned at Male 06/30/2021 12:19 PM WATERMASTER Legal Sex Male 7:31 AM CDT Gender Identity Male 06/30/2021 12:19 PM WATERMASTER Sexual Orientation Straight 06/30/2021 12 :19 PM WATERMASTER documented as of this encounter Functional Status * Are you deaf or do you have serious difficulty hearing? Answer Date of Assessment Author No 07/01/2024 10:08 AM Cheryl Mensah M.S.W., L.G.S.W. * Are you blind or do you have serious difficulty seeing, even when wearing glasses? Answer Date of Assessment Author No 07/01/2024 10:08 AM Cheryl Mensah M.S.W., Maximo.Courtney.S.W. * Do you have serious difficulty walking [...] Mensah M.S.W., Crow documented in this encounter Nursing Notes * Juana Salazar M.S.N., R.N., C.M.S.R.N. - 08/30/2024 2:05 PM CDT OPAT NOTE Name Phone Number OPAT Lab: [facility] at [facility] ( ) [phone] Problem: Outpatient Antimicrobial Therapy Monitoring Description: OPAT/COpAT: -Follow up scheduled 09/24/24 -IFD Managing Service/Provider: [facility] Medications: Posaconazole Start Date: 07/04/24, End date: TBD Goal: Patient will obtain drug level Description: Posaconazole, random or trough (Notify pharmacist or provider if <1250 ng/mL or >2000 ng/mL.) In two weeks, then monthly Note: Labs still pending Interpretation and Action: Spoke to Kezia at [facility] lab. Results will come back either later today or tomorrow. We will await lab results. She confirms having our fax number. Reference used: Guideline for Antimicrobial Therapy Monitoring for the Division of Infectious Diseases - [id number] * Lili Chaudhry M.S.N., R.N., ITZEL - 2024 3:27 PM CDT OPAT NOTE - LAB REVIEW Name Phone Number [facility] Lab: [facility] ( ) [phone] Problem: Outpatient Antimicrobial Therapy Monitoring Description: OPAT/COpAT: -Follow up scheduled 09/24/24 -IFD Managing Service/Provider: [facility] Medications: Posaconazole Start Date: 07/04/24, End date: TBD Goal: Patient will obtain safety monitoring labs Description: Labs required: ALT, Alk Phos, and Potassium in two weeks, then monthly Baseline Creatinine: N/A Outcome: Progressing Intervention: Labs reviewed Note: Lab results from 08/28/24 are viewable in the MCR record--listed as External Labs (received via fax, which has been uploaded to Document Viewer/Media). Within OPAT guideline parameters Interpretation and Action: No change in plan as per OPAT Practice Guideline. Reference used: Guideline for Antimicrobial Therapy Monitoring for the Division of Infectious Diseases - [id number] * Jay Carrasco, M.P.H., R.N. - 2024 10:23 AM CDT OPAT NOTE Name Phone Number OPAT Lab: [facility] at [facility] ( ) [phone] SUBJECTIVE CHIEF COMPLAINT / REASON FOR CALL OPAT Information Discussed Spoke to patient who is aware that he needs monthly labs drawn. He stated that he would go to [facility] to have a set drawn today. If he is not able to get them done today, he will call IFDand ask for a nurse to make sure an appointment is set up for tomorrow in [place], as he is coming for other appointments and will be at [facility]. IFD contact number provided. Spoke to the senior cytotechnologist at [facility] who stated that [facility] orders are not on file. She stated that the patient has labs drawn regularly and requested the order be faxed and that she would talk to him about making sure the recommended OPAT labs get drawn. PLAN Disposition/Recommendation: Order was faxed to [phone], as requested. Information/Education: patient/caller able to teach back Caller agreeable to plan of care: yes The following references were used: nursing clinical judgement * Alicia Tavarez R.N. - 08/27/2024 11:39 AM CDT OPAT NOTE Name Phone Number OPAT Lab: [facility] ( ) [phone] SUBJECTIVE CHIEF COMPLAINT / REASON FOR CALL OPAT Information Discussed I spoke with nurse Moran in [facility] and she states patient might have these labs drawn at [facility] where he does chemotherapy (not affiliated). The only thing they do in [facility] is INR. She provided [facility] tel: [phone]. I will reach out to [facility] to ask about lab order. [phone]: Call made to [facility] and I spoke to Nurse Albert in the [facility]. She provided fax number: [phone] where I could fax lab order. Contacts will be updated. PLAN Disposition/Recommendation: Lab order will be faxed. Information/Education: patient/caller able to teach back Caller agreeable to plan of care: yes The following references were used: nursing clinical judgement documented in this encounter Plan of Treatment Upcoming Encounters Date Type Department Care Team (Late st Contact Info) Description 09/24/2024 7:45 AM CDT Appointment Department of Radiology, [facility], in [place], [place] [address] [place] [phone] Julio Soto M.D. [address] [place] [phone] 09/24/2024 9:30 AM CDT Diagnostic Division of Pulmonary Medicine in [place], [place] [address] [place] [phone] Marilu Castaneda P.A.-C., M.S. [address] [place] [phone] 09/24/2024 10:40 AM CDT Appointment Department of Laboratory Medicine and Pathology, [facility] in [place], [place] [address] [place] [phone] Marilu Castaneda P.A.-C., M.S. [address] [place] [phone] 09/24/2024 2:30 PM CDT Office Visit Section of Infectious Diseases in [place], [place] [address] [place] [phone] Julio Soto M.D. [address] [place] [phone] documented as of this encounter Visit Diagnoses Not on filedocumented in this encounter Additional Health Concerns Infection Onset Date Last Indicated Resolved Time Protective Environment 09/20/2022 09/20/202208/30 5:23 AM CDT Assessment Noted Time PHQ-9 Depression Total Score: 6 07/17/19 20 10:26 AM WATERMASTER documented as of this encounter Care Teams Wheelchair Van Operator First Responder Relationship Specialty Start Date End Date Elsewhere, Pcp PCP - General Finishing Tunnel Operator 06/27/19 documented as of this encounter
--- OUTSIDE RECORDS SUMMARY | 2024-09-11 11:38 | XMS_ITS | Encounter Summary ---
Author Organization [facility] Address [address] [place] [address] Care Team Providers Care Special Education Classroom Aide Name Role Phone Elsewhere, Pcp Primary Care Provider Unavailabl e Encounter Details Date Type Department Care Team (Late st Contact Info) Description 08/02/2024 Orders Only Department of Oncology in [place], [place] [address] [place] [address] Birdie Hurtado M.D. [address] [place] [phone] Social History Tobacco Use Types Packs/Day Years Used Date Smoking Tobacco: Never Smokeless Tobacco: Never Alcohol Use Standard Drinks/Week Comments Never 0 (1 standard drink = 0.6 oz pur e alcohol) [facility] Utilities Answer Date Recorded In the past 12 months has [facility] [employer], gas, oil, or water [employer] threatened to shut off services in your [...] How often do you attend restoration or alevism serv ices? Never 06/30/2021 Do you belong [...] and heating? Not hard at all 06/30/2021 [facility] of Occupat ional Health - Occupational Stress [...] your living situation today? I have a [employer] [facility] [employer] place to live 07/19/2024 Education Answer Date Recorded What is the highest level of school you have completed or the highest degree you have received? Professional school degree (e.g., MD, DDS, DVM, GRACIELA) 06/30/2021 Sex and Gender Information Value Date Recorded Sex Assigned at Male 06/30/2021 12:19 PM PUMP AND BLOWER OPERATOR Legal Sex Male 7:31 AM CDT Gender Identity Male 06/30/2021 12:19 PM PUMP AND BLOWER OPERATOR Sexual Orientation Straight 06/30/2021 12 :19 PM PUMP AND BLOWER OPERATOR documented as of this encounter Functional Status [...] 7:45 AM CDT Appointment Department of Radiology, [facility] in [place], [place] [address] [place] [phone] Julio Soto M.D. [address] [place] [phone] 09/24/2024 9:30 AM CDT Diagnostic Division of Pulmonary Medicine in [place], [place] [address] [place] [phone] Marilu Castaneda P.A.-C., M.S. [address] [place] [phone] 09/24/2024 10:40 AM CDT Appointment Department of Laboratory Medicine and Pathology, [facility] in [place], [place] [address] [place] [phone] Marilu Castaneda P.A.-C., M.S. [address] [place] [phone] 09/24/2024 2:30 PM CDT Office Visit Section of Infectious Diseases in [place], [place] [address] [place] [address] Julio Soto M.D. [address] [place] [phone] documented as of this encounter Visit Diagnoses Not on filedocumented in this encounter Additional Health Concerns Infection Onset Date Last Indicated Resolved Time Protective Environment 09/20/2022 09/20/202208/30 5:23 AM CDT Assessment Noted Time PHQ-9 Depression Total Score: 6 07/17/19 20 10:26 AM PUMP AND BLOWER OPERATOR documented as of this encounter Care Teams Special Education Classroom Aide Relationship Specialty Start Date End Date Elsewhere, Pcp PCP - General Lock Maintenance Supervisor 06/27/19 documented as of this encounter
--- OUTSIDE RECORDS SUMMARY | 2024-09-11 11:38 | XMS_ITS | Encounter Summary ---
Author Organization [facility] Address [address] [place] [address] Care Team Providers Care Rad Tech Name Role Phone Elsewhere, Pcp Primary Care Provider Unavailabl e Reason for Visit * Reason Onset Date Comments Pre-visit Intake 2024 * Appointment Request (Routine) - Authorized Specialty Diagnoses / Procedures Referred By Oliverio t Referred To Contact Cardiovascular Disease Referral ID Status Reason Start Date Expiration Date V isits Requested Visits Authorized [id number] Authorized 07/20/2024 10/20/2025 1 1 Encounter Details Date Type Department Care Team (Latest Contact Info) Description 2024 9:30 AM CDT Clinical Communication Virtual Review in [place], [place] [address] [place] [address] Pre-visit Intake Social History Tobacco Use Types Packs/Day Years Used Date Smoking Tobacco: Never Smokeless Tobacco: Never Alcohol Use Standard Drinks/Week Comments Never 0 (1 standard drink = 0.6 oz pur e alcohol) [facility] Utilities Answer Date Recorded In the [...] week 06/30/2021 How often do you attend taoism or faith serv ices? Never 06/30/2021 Do you belong to any clubs o r organizations such as taoism groups, unions, fraternal or athletic groups, or [...] and heating? Not hard at all 06/30/2021 [facility] of Occupat ional Health - Occupational [...] your living situation today? I have a [facility] place to live 07/19/2024 Education Answer Date Recorded What is the highest level of school you have completed or the highest degree you have received? Professional school degree (e.g., , DDS, DVM, GRACIELA) 06/30/2021 Sex and Gender Information Value Date Recorded Sex Assigned at Male 06/30/2021 12:19 PM HVAC ENGINEERING TECHNICIAN Legal Sex Male 7:31 AM CDT Gender Identity Male 06/30/2021 12:19 PM HVAC ENGINEERING TECHNICIAN Sexual Orientation Straight 06/30/2021 12 :19 PM HVAC ENGINEERING TECHNICIAN documented as of this encounter Functional Status [...] 07/01/2024 10:08 AM Cheryl Mensah M.S.W., Crow * Because of a physical, mental, or [...] 7:45 AM CDT Appointment Department of Radiology, [facility] in [place], [place] [address] [place] [phone] Julio Soto M.D. [address] [place] [phone] 09/24/2024 9:30 AM CDT Diagnostic Division of Pulmonary Medicine in [place], [place] [address] [place] [phone] Marilu Castaneda P.A.-C., M.S. [address] [place] [phone] 09/24/2024 10:40 AM CDT Appointment Department of Laboratory Medicine and Pathology, [facility] in [place], [place] [address] [place] [phone] Marilu Castaneda P.A.-C., M.S. [address] [place] [phone] 09/24/2024 2:30 PM CDT Office Visit Section of Infectious Diseases in [place], [place] [address] [place] [phone] Julio Soto M.D. [address] [place] [phone] documented as of this encounter Visit Diagnoses Not on filedocumented in this encounter Additional Health Concerns Infection Onset Date Last Indicated Resolved Time Protective Environment 09/20/2022 09/20/202208/30 5:23 AM CDT Assessment Noted Time PHQ-9 Depression Total Score: 6 07/17/19 20 10:26 AM HVAC ENGINEERING TECHNICIAN documented as of this encounter Care Teams Rad Tech Relationship Specialty Start Date End Date Elsewhere, Pcp PCP - General University Relations Recruiter 06/27/19 documented as of this encounter
--- OUTSIDE RECORDS SUMMARY | 2024-09-11 11:38 | XMS_ITS | Encounter Summary ---
Author Organization [facility] Address [address] [place] [address] Care Team Providers Care Child Development Consultant Name Role Phone Elsewhere, Pcp Primary Care Provider Unavailabl e Encounter Details Date Type Department Care Team (Late st Contact Info) Description 2024 Orders Only Section of Infectious Diseases in [place], [place] [address] [place] [address] External, Ordering ProviderAnnemarie Social History Tobacco Use Types Packs/Day Years Used Date Smoking Tobacco: Never Smokeless Tobacco: Never Alcohol Use Standard Drinks/Week Comments Never 0 (1 standard drink = 0.6 oz pur e alcohol) [facility] Utilities Answer Date Recorded In the past 12 months has e [employer], gas, oil, or water [employer] threatened to shut off services in your [...] week 06/30/2021 How often do you attend sikhism or church serv ices? Never 06/30/2021 Do you belong to any clubs o r organizations such as sikhism groups, unions, fraternal or athletic groups, or [...] your living situation today? I have a [facility] place to live 07/19/2024 Education Answer Date Recorded What is the highest level of school you have completed or the highest degree you have received? Professional school degree (e.g., MD, DDS, DVM, GRACIELA) 06/30/2021 Sex and Gender Information Value Date Recorded Sex Assigned at Male 06/30/2021 12:19 PM JEWEL HOLE ROUGH OPENER Legal Sex Male 7:31 AM CDT Gender Identity Male 06/30/2021 12:19 PM JEWEL HOLE ROUGH OPENER Sexual Orientation Straight 06/30/2021 12 :19 PM JEWEL HOLE ROUGH OPENER documented as of this encounter Functional Status [...] AM CDT Appointment Department of Radiology, [facility] in [place], [place] [address] [place] [phone] Julio Soto M.D. [address] [place] [phone] 09/24/2024 9:30 AM CDT Diagnostic Division of Pulmonary Medicine in [place], [place] [address] [place] [phone] Marilu Castaneda P.A.-C., M.S. [address] [place] [phone] 09/24/2024 10:40 AM CDT Appointment Department of Laboratory Medicine and Pathology, [facility] in [place], [place] [address] [place] [phone] Marilu Castaneda P.A.-C., M.S. [address] [place] [phone] 09/24/2024 2:30 PM CDT Office Visit Section of Infectious Diseases in [place], [place] [address] [place] [address] Julio Soto M.D. [address] [place] [phone] documented as of this encounter Procedures Procedure Name Priority Date/Time Associated Diagnosis Comments ALANINE AMINOTRANSFERASE (ALT), S/P Routine 2024 11:37 AM CDT POTASSIUM, S/P Routine 2024 11:37 AM CDT ALKALINE PHOSPHATASE, S/P Routine 2024 11:37 AM CDT documented in this encounter Results * Alkaline Phosphatase (2024 11:37 AM CDT) EXT Alkaline Phosphatase 100 40 - 150 U/L [facility] 2024 11:3 7 AM CDT Narrative Imaging3[facility] - 2024 2:14 PM CDT Source result document attached to Order Number [id number] ([id number]) dated 2024. External results verified in Extract by Jazmín Bean on 2024 at 02:13 PM. us Ordering Provider External MBony LAB BLOOD ADD-ON Final Result [facility] [address] [place] [address] * (ABNORMAL) ALT (Alanine Aminotransferase) (2024 11:37 AM CDT) EXT ALT 65(H) 4 - 50 U/L [facility] 2024 11:3 7 AM CDT Narrative [employer] [facility] - 2024 2:14 PM CDT Source result document attached to Order Number [id number] ([id number]) dated 2024. External results verified in Extract by Jazmín Bean on 2024 at 02:13 PM. us Ordering Provider External M.D. LAB BLOOD ADD-ON Final Result Performing Organization Address City/[facility]/ZIP Co de Phone Number [employer] [facility] [address] [id number] [phone] * Potassium (2024 11:37 AM CDT) EXT Potassium 4.2 3.6 - 5.1 mmol/L [facility] 2024 11:3 7 AM CDT Narrative [facility] - 2024 2:14 PM CDT External results verified in Extract by Jazmín Bean on 2024 at 02:13 PM. us Ordering Provider External M.D. LAB BLOOD ADD-ON Final Result Performing Organization Address [facility] de Phone Number [facility] [address] [place] [address] documented in this encounter Visit Diagnoses Not on filedocumented in this encounter Additional Health Concerns Infection Onset Date Last Indicated Resolved Time Protective Environment 09/20/2022 09/20/202208/30 5:23 AM CDT Assessment Noted Time PHQ-9 Depression Total Score: 6 07/17/19 20 10:26 AM JEWEL HOLE ROUGH OPENER documented as of this encounter Care Teams Child Development Consultant Relationship Specialty Start Date End Date Elsewhere, Pcp PCP - General Attendant Child Activity 06/27/19 documented as of this encounter
--- OUTSIDE RECORDS SUMMARY | 2024-09-11 11:38 | XMS_ITS | Encounter Summary ---
Author Organization [facility] Address [address] [place] [address] Care Team Providers Care Director Of Recruitment Name Role Phone Elsewhere, Pcp Primary Care Provider Unavailabl e Reason for Visit * Reason Comments OPAT Encounter Details Date Type Department Care Team (Late st Contact Info) Description 08/13/2024 Patient Outreach Section of Infectious Diseases in [place], [place] [address] [place] [address] Alicia Tavarez R.N. OPAT Social History Tobacco Use Types Packs/Day Years Used Date Smoking Tobacco: Never Smokeless Tobacco: Never Alcohol Use Standard Drinks/Week Comments Never 0 (1 standard drink = 0.6 oz pur e alcohol) [facility] Utilities Answer Date Recorded In the past 12 months has [employer], gas, oil, or water [employer] threatened to shut off services in your [...] How often do you attend jewish or restorationist serv ices? Never 06/30/2021 Do [...] your living situation today? I have a [facility] place to live 07/19/2024 Education Answer Date Recorded What is the highest level of school you have completed or the highest degree you have received? Professional school degree (e.g., , DDS, DVM, GRACIELA) 06/30/2021 Sex and Gender Information Value Date Recorded Sex Assigned at Male 06/30/2021 12:19 PM BATCH ATTENDANT Legal Sex Male 7:31 AM CDT Gender Identity Male 06/30/2021 12:19 PM BATCH ATTENDANT Sexual Orientation Straight 06/30/2021 12 :19 PM BATCH ATTENDANT documented as of this encounter Functional Status [...] documented in this encounter Nursing Notes * Jacinta Cardoza R.N. - 08/17/2024 11:14 AM CDT OPAT NOTE Name Phone Number OPAT Lab: [facility] ( ) [phone] Problem: Outpatient Antimicrobial Therapy Monitoring Description: OPAT/COpAT: -Follow up scheduled 09/24/24 -IFD Managing Service/Provider: [facility] Medications: Posaconazole Start Date: 07/04/24, End date: TBD Goal: Patient will obtain drug level Description: Posaconazole, random or trough (Notify pharmacist or provider if <1250 ng/mL or >2000 ng/mL.) In two weeks, then monthly Outcome: Intervention The patient's last drug level was drawn on 07/07/24. His last LFTs/potassium were drawn on 07/30/24. Orders for monthly drug level were faxed around 08/13/24. Interpretation and Action: This author will request contact with the patient to request that he go in to have his March labs drawn as soon as he is able and to ensure with lab personnel that he has his liver tests (ALT, alk phos), potassium AND posaconazole level drawn when he is there for his appt. Reference used: Guideline for Antimicrobial Therapy Monitoring for the Division of Infectious Diseases - [id number] * Alicia Tavarez R.N. - 08/13/2024 4:12 PM CDT Images from the original note were not included. Name Phone Number OPAT Lab: [facility] ( ) [phone] Received via [email or web address]: Care Plan has been updated. Lab order from 07/09/24 does not have a posaconazole level included. I will place order to have that included and EHA to assist in faxing to [facility]. documented in this encounter Miscellaneous Notes * Addendum Note - Hannah Benavides - 08/13/2024 4:11 PM CDTAddended by: HANNAH BENAVIDES on: 08/21/2024 08:44 AM Modules accepted: Orders documented in this encounter Plan of Treatment Upcoming Encounters Date Type Department Care Team (Late st Contact Info) Description 09/24/2024 7:45 AM CDT Appointment Department of Radiology, [facility], in [place], [place] [address] [place] [phone] Julio Soto M.D. [address] [place] [phone] 09/24/2024 9:30 AM CDT Diagnostic Division of Pulmonary Medicine in [place], [place] [address] [place] [phone] Marilu Castaneda P.A.-C., M.S. [address] [place] [phone] 09/24/2024 10:40 AM CDT Appointment Department of Laboratory Medicine and Pathology, [facility], in [place], [place] [address] [place] [address] Marilu Castaneda P.A.-C., M.S. [address] [place] [phone] 09/24/2024 2:30 PM CDT Office Visit Section of Infectious Diseases in [place], [place] [address] [place] [phone] Julio Soto M.D. [address] [place] [phone] documented as of this encounter Visit Diagnoses Diagnosis Skilled Nursing Antibiotic Treatment- Primary documented in this encounter Additional Health Concerns Infection Onset Date Last Indicated Resolved Time Protective Environment 09/20/2022 09/20/202208/30 5:23 AM CDT Assessment Noted Time PHQ-9 Depression Total Score: 6 07/17/19 20 10:26 AM BATCH ATTENDANT documented as of this encounter Care Teams Director Of Recruitment Relationship Specialty Start Date End Date Elsewhere, Pcp PCP - General Dynamite Packing Machine Feeder 06/27/19 documented as of this encounter
--- OUTSIDE RECORDS SUMMARY | 2024-09-11 11:38 | XMS_ITS | Encounter Summary ---
Author Organization [facility] Address [address] [place] [address] Care Team Providers Care Electric Motor Repair Supervisor Name Role Phone Elsewhere, Pcp Primary Care Provider Unavailabl e Reason for Referral * MRI/CAT/PET Scan (Routine) - Closed Specialty Diagnoses / Procedures Referred By Contac t Referred To Contact Radiology Diagnoses Pneumonia Procedures CT Chest without IV Contrast Catherine Garcia M.D. 200 [place] [address] Phone: tel: fax: [facility] Referral ID Status Reason Start Date Expiration Date Visits Re quested Visits Authorized [id number] Closed 07/04/2024 10/04/2025 1 1 Reason for Visit * MRI/CAT/PET Scan (Routine) - Closed Specialty Diagnoses / Procedures Referred By Oliverio akers Referred To Contact Radiology Diagnoses Pneumonia Procedures CT Chest without IV Contrast Catherine Garcia M.D. 200 [place] [address] Phone: tel: fax: [facility] Referral ID Status Reason Start Date Expiration Date Visits Re quested Visits Authorized [id number] Closed 07/04/2024 10/04/2025 1 1 Encounter Details Date Type Department Care Team (Latest Contact Info) Description 08/13/2024 10:30 AM CDT - 08/13/2024 11:59 PM CDT Hospital Encounter Department of Radiology, [facility], in [place], [place] [address] [place] [address] Catherine Garcia M.D. [address] [place] [address] Pneumonia Discharge Disposition: Home or Self Care Social History Tobacco Use Types Packs/Day Years Used Date Smoking Tobacco: Never Smokeless Tobacco: Never Alcohol Use Standard Drinks/Week Comments Never 0 (1 standard drink = 0.6 oz pur e alcohol) [facility] Utilities Answer Date Recorded In the past 12 months has e [employer], gas, oil, or water [employer] threatened to shut off services in your [...] How often do you attend nondenominational or moravian serv ices? Never 06/30/2021 Do [...] [facility] 07/19/2024 Education Answer Date Recorded What is the highest level of school you have completed or the highest degree you have received? Professional school degree (e.g., , YELENA, DVM, GRACIELA) 06/30/2021 Sex and Gender Information Value Date Recorded Sex Assigned at Male 06/30/2021 12:19 PM MOTOR INSPECTION MECHANIC Legal Sex Male 7:31 AM CDT Gender Identity Male 06/30/2021 12:19 PM MOTOR INSPECTION MECHANIC Sexual Orientation Straight 06/30/2021 12 :19 PM MOTOR INSPECTION MECHANIC documented as of this encounter Functional Status * Are you deaf or do you have serious difficulty hearing? Answer Date of Assessment Author No 07/01/2024 10:08 AM Cheryl Mensah M.S.W., KashS.W. * Are you blind or do you have serious difficulty seeing, even when wearing glasses? Answer Date of Assessment Author No 07/01/2024 10:08 AM Cheryl Mensah M.S.W., KashS.W. * Do you have serious difficulty walking or climbing stairs? Answer Date of Assessment Author No 07/01/2024 10:08 AM Cheryl Mensah M.S.W., Aaron.S.W. * Do you have serious difficulty dressing or bathing? Answer Date of Assessment Author No 07/01/2024 10:08 AM Cheryl Mensah M.S.W., Aaron.S.W. * Because of a physical, mental, or emotional condition, do you have serious difficulty doing errandsalone such as visiting the doctor? Answer Date of Assessment Author No 07/01/2024 10:08 AM Cheyrl Mensah M.S.W., KashSBuddyW. documented as of this encounter Mental Status * Because of a physical, mental, or emotional condition, do you have serious difficulty concentrating, remembering, or making decisions? (5 years old or older) Answer Entry Date Author No 07/01/2024 10:08 AM Cheryl Mensah M.S.W., KashSBuddyW. documented in this encounter Medications at Time of Discharge ALPRAZolam (XANAX) 0.25 mg tablet Take 0.125 mg by mouth every 12 (twelve) hours as needed for anxiety. 08/16/2018 amiodarone (Pacerone) 200 mg tablet Take 1 tablet (200 mg total) by mouth daily. 90 tablet 3 07/29/2024 amLODIPine (Norvasc) 5 mg tablet Take 5 mg by mouth daily. calcium carbonate (calcium carbonate) 1000 mg (400 mg calcium) chewable tablet Chew 1 tablet 3 (three) times a day as needed for indigestion. DME OxygenIndication s:Apnea Sleep Obstructive,Hypo kevin DME Order - for details see Order Report 1 each 07/07/2024 ferrous sulfate 325 mg (65 mg iron) tablet Take 1 tablet (65 mg of iron total) by mouth every other day. 30 tablet 2 07/09/2024 levothyroxine 112 mcg tablet Take 112 mcg by mouth daily before morning meal. lisinopriL 10 mg tablet Take 1.5 tablets (15 mg total) by mouth 2 (two) times a day. 270 tablet 3 01/13/2024 magnesium chloride (Slow-Mag) 71.[address] tablet Take 1 tablet (71.5 mg total) by mouth daily. 01/09/2022 metoprolol tartrate (Lopressor) 50 mg tablet Take 1 tablet (50 mg total) by mouth 2 (two) times a day. 180 tablet 3 07/29/2024 omeprazole (PriLOSEC) [address] capsule Take 1 capsule (20 mg total) by mouth daily before morning meal. 30 capsule 2 06/22/2024 posaconazole (NoxafiL) [address] tabletIndication s:Aspergillus infection Take 3 tablets (300 mg total) by mouth daily Indications: Aspergillus infection. 180 tablet 2 07/31/2024 tamsulosin (FLOMAX) 0.4 mg 24 hr capsule Take 0.4 mg by mouth daily. 01/14/2022 warfarin (Jantoven) 5 mg tablet Take 1.5 tablets (total 7.5 mg) by mouth on 07/29/2024 as directed. INR recheck on 07/30/2024. 135 tablet 3 07/29/2024 2:01 PM MOTOR INSPECTION MECHANIC 07/29/2024 documented as of this encounter Plan of Treatment Upcoming Encounters Date Type Department Care Team (Late st Contact Info) Description 09/24/2024 7:45 AM CDT Appointment Department of Radiology, [facility] in [place], [place] [address] [place] [phone] Julio Soto M.D. [address] [place] [phone] 09/24/2024 9:30 AM CDT Diagnostic Division of Pulmonary Medicine in [place], [place] [address] [place] [phone] Marilu Castaneda P.A.-C., M.S. [address] [place] [phone] 09/24/2024 10:40 AM CDT Appointment Department of Laboratory Medicine and Pathology, [facility] in [place], [place] [address] [place] [phone] Marilu Castaneda P.A.-C., M.S. [address] [place] [phone] 09/24/2024 2:30 PM CDT Office Visit Section of Infectious Diseases in [place], [place] [address] [place] [phone] Julio Soto M.D. [address] [place] [phone] documented as of this encounter Procedures Procedure Name Priority Date/Time Associated Diagnosis Comments CT CHEST WITHOUT IV CONTRAST RAD - Routine (most inpatients and all outpatients) 08/13/2024 11:03 AM CDT Pneumonia documented in this encounter Results * CT Chest without IV Contrast (08/13/2024 [...] inflammatory due topancreatitis. Please correlate with symptoms. us Catherine Garcia M.D. IMG CT PROCEDURES Final Result documented in this encounter Visit Diagnoses Diagnosis Pneumonia documented in this encounter Additional Health Concerns Infection Onset Date Last Indicated Resolved Time Protective Environment 09/20/2022 09/20/202208/30 5:23 AM CDT Assessment Noted Time PHQ-9 Depression Total Score: 6 07/17/19 20 10:26 AM MOTOR INSPECTION MECHANIC documented as of this encounter Care Teams Electric Motor Repair Supervisor Relationship Specialty Start Date End Date Elsewhere, Pcp PCP - General Hydroelectric Machinery Mechanic 06/27/19 documented as of this encounter
--- OUTSIDE RECORDS SUMMARY | 2024-09-11 11:38 | XMS_ITS | Encounter Summary ---
Author Organization [facility] Address [address] [place] [address] Care Team Providers Care Counter Stitcher Name Role Phone Elsewhere, Pcp Primary Care Provider Unavailabl e Reason for Referral * Outpatient (Routine) - Authorized Specialty Diagnoses / Procedures Referred By Contac t Referred To Contact Infectious Diseases Julio Soto M.D. [address] [place] [address] Phone: tel: fax: [facility] Referral ID Status Reason Start Date Expiration Date V isits Requested Visits Authorized [id number] Authorized 08/13/2024 02/12/2026 1 1 * MRI/CAT/PET Scan (Routine) - Authorized Specialty Diagnoses / Procedures Referred By Contac t Referred To Contact Radiology Diagnoses Aspergillosis (HCC) Procedures CT Chest without IV Contrast Julio Soto M.D. [address] [place] [address] Phone: tel: fax: [facility] Referral ID Status Reason Start Date Expiration Date V isits Requested Visits Authorized [id number] Authorized 08/13/2024 11/13/2025 1 1 Reason for Visit * Outpatient (Routine) - Closed Specialty Diagnoses / Procedures Referred By Oliverio akers Referred To Contact Infectious Diseases Diagnoses Pneumonia Catherine Garcia M.D. [address] [place] [address] Phone: tel: fax: [facility] Referral ID Status Reason Start Date Expiration Date Visits Re quested Visits Authorized [id number] Closed 07/04/2024 01/03/2026 1 1 Encounter Details Date Type Department Care Team (Latest Contact Info) Description 08/13/2024 3:00 PM CDT Office Visit Section of Infectious Diseases in [place], [place] [address] [place] [phone] Catherine Garcia M.D. [address] [place] [address] [phone] Julio Soto M.D. [address] [place] [phone] Aspergillosis (HCC) (Primary Dx); Pneumonia Social History Tobacco Use Types Packs/Day Years Used Date Smoking Tobacco: Never Smokeless Tobacco: Never Tobacco Cessation:Counseling Given: Not Answered Alcohol Use Standard Drinks/Week Comments Never 0 (1 standard drink = 0.6 oz pur e alcohol) [facility] Utilities Answer Date Recorded In the past 12 months has [facility] [employer], [employer], or water [employer] threatened to shut off services in your [...] How often do you attend anglican or mandaen serv ices? Never 06/30/2021 Do [...] your living situation today? I have a [facility] place to live 07/19/2024 Education Answer Date Recorded What is the highest level of school you have completed or the highest degree you have received? Professional school degree (e.g., MD, DDS, DVM, GRACIELA) 06/30/2021 Sex and Gender Information Value Date Recorded Sex Assigned at Male 06/30/2021 12:19 PM PARAPROFESSIONAL AIDE Legal Sex Male 7:31 AM CDT Gender Identity Male 06/30/2021 12:19 PM PARAPROFESSIONAL AIDE Sexual Orientation Straight 06/30/2021 12 :19 PM PARAPROFESSIONAL AIDE documented as of this encounter Last Filed Vital Signs Vital Sign Reading Time Taken Comments Blood Pressure 148/64 08/13/2024 2:29 PM CDT Pulse 69 08/13/2024 2:29 PM CDT Temperature 36.8 C (98.2 F) 08/13/2024 2:29 PM CDT Respiratory Rate - - Oxygen Saturation - - Inhaled Oxygen Concentration - - Weight 70.7 kg (155 lb 13.8 oz) 08/13/2024 2:29 PM CDT Height - - Body Mass Index 22.82 07/20/2024 2:57 PM PARAPROFESSIONAL AIDE documented in this encounter Functional Status * Are you deaf or do you have serious difficulty hearing? Answer Date of Assessment Author No 07/01/2024 10:08 AM Cheryl Mensah M.S.W., Jing. * Are you blind or do you have serious difficulty seeing, even when wearing glasses? Answer Date of Assessment Author No 07/01/2024 10:08 AM Cheryl Mensah M.S.W., Jing. * Do you have serious difficulty walking [...] documented in this encounter Progress Notes * Julio Soto M.D. - 08/13/2024 3:00 PM CDT SUBJECTIVE CHIEF COMPLAINT / REASON FOR VISIT Post hospitalization follow-up HISTORY OF PRESENT ILLNESS hCad Jensen is a 78 y.o. 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 The patient was evaluated by [facility] team in June-early July 2024 - please see their notes for details. In brief, patient was initially hospitalized from 06/13-06/18/2024 with acute hypoxic respiratory failure and was found to have pneumonia witha positive human metapneumovirus. He was treated with imipenem, azithromycin, and high dose steroids. At time of discharge, etiology of presentation was felt to be inflammatory pneumonitis secondary to pembrolizumab over infection. The patient developed cough and hemoptysis at the end of June 2024. CT chest showed multifocal consolidative opacities in the bilateral lungs.This also showed enlarged lower cervical, mediastinal, hilar, abdominal conglomerated lymph nodes concerning for lymphoproliferative disease. He was placed on imipenem, doxycycline, and steroids. Patient was then transferred to [facility] on 07/01/2024. Sputum culture 07/02/2024 grew many Aspergillus fumigatus complex. PCR remains positive for human metapneumovirus. BAL (07/02/2024) also showed many Aspergillus fumigatus complexas well as Mycobacterium intracellulare. BAL Aspergillus antigen was positive at 0.9. Serum Aspergillus antigen was negative. Serum Fungitell was > 500. The patient has been started on posaconazole. He returned to clinic today for follow-up. He stated that he has been doing well, but continues to have low stamina/energy. He denies dyspnea, cough, phlegm, chest pain or fever/night sweats. He tolerates posaconazole well without any issue. He initially was paying $1,100 per week but now he was able to find the pharmacy with co-pay of $600 per 3 months. He also complains about some voice hoarseness and difficulty with CPAP. Liver monitoring has been okay. Posaconazole level check on 07/07/2024was 1,220. CT chest today showed decrease in size and density of bilateral pulmonary opacities. His Keytruda and acalabrutinib remains on hold. OBJECTIVE PHYSICAL EXAM VS: I have reviewed the current vital sign data as applicable General: Not in acute distress CVS: Regular rhythm, S1 +S2, no added sounds Chest: Clear to auscultation Extremities: Bilateral lower extremity edema Skin: No rash I have reviewed labs and imaging in 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 He has clinical as well as radiographic improvement. No side effects from posaconazole. Recommendations/plans Continue posaconazole DR 300 mg orally daily - he has enough supply for another 3 months Continue monthly ALT, ALP, and potassium. Posaconazole level periodically, most recent on 07/07/2024 - I will update OPAT team about this. Regarding the timing of restarting acalabrutinib and pembrolizumab, this would depend on the urgency of both medications. Ideally, we would want to wait as long as possible. However, if there 2 medications deem to be relatively urgent from melanoma/CLL standpoint - I would be fine restarting them with caution and close monitoring. Posaconazole is a strong CYP3A inhibitor that would significantly increase the plasma concentrations of acalabrutinib, dose adjustments or close monitoring for adverse effects should be done. The patient will meet with his windows systems admin/oncologist locally next week -an alternative option would be changing posaconazole to isavuconazole. The duration of antifungal therapy remains open-ended - if the patient were to be on acalabrutinib long-term, we might need long-term secondary prophylaxis. Follow-up in ID clinic 6 weeks from now, with CT chest without contrast Julio Zavaleta M.D. Infectious Diseases Pager: [phone] documented in this encounter Plan of Treatment Upcoming Encounters Date Type Department Care Team (Late st Contact Info) Description 09/24/2024 7:45 AM CDT Appointment Department of Radiology, [facility], in [place], [place] [address] [place] [phone] Julio Soto M.D. [address] [place] [phone] 09/24/2024 9:30 AM CDT Diagnostic Division of Pulmonary Medicine in [place], [place] [address] [place] [phone] Marilu Castaneda P.A.-C., M.S. [address] [place] [phone] 09/24/2024 10:40 AM CDT Appointment Department of Laboratory Medicine and Pathology, [facility] in [place], [place] [address] [place] [address] Marilu Castaneda P.A.-C., M.S. [address] [place] [phone] 09/24/2024 2:30 PM CDT Office Visit Section of Infectious Diseases in [place], [place] [address] [place] [phone] Julio Soto M.D. [address] [place] [phone] Scheduled Orders Name Type Priority Associated Diagnoses Orde r Schedule CT Chest without IV Contrast Imaging RAD - Routine (most inpatients and all outpatients) Aspergillosis (HCC) Expected: 09/24/2024, Expires: 11/13/2025 Scheduled Referrals Name Type Priority Associated Diagnoses Order Schedule Infectious Diseases office visit (clinic) Outpatient Referral Routine Expected: 09/24/2024, Expires: 11/13/2025 documented as of this encounter Visit Diagnoses Diagnosis Aspergillosis (HCC)- Primary Pneumonia documented in this encounter Additional Health Concerns Infection Onset Date Last Indicated Resolved Time Protective Environment 09/20/2022 09/20/202208/30 5:23 AM CDT Assessment Noted Time PHQ-9 Depression Total Score: 6 07/17/19 20 10:26 AM PARAPROFESSIONAL AIDE documented as of this encounter Care Teams Counter Stitcher Relationship Specialty Start Date End Date Elsewhere, Pcp PCP - General Dairy Equipment Mechanic 06/27/19 documented as of this encounter
--- OUTSIDE RECORDS SUMMARY | 2024-09-11 11:38 | XMS_ITS | Clinical Summary ---
Author Organization [facility] Address [address] [place] [address] Care Team Providers Care Podiatric Assistant Name Role Phone Nikki Reilly DO Primary Care Provider [phone] Allergies Active Allergy Reactions Criticality Noted Date Comments Ibrutinib Rash High 04/12/2022 Penicillins Hives Medications magnesium chloride delayed release tabletIndications :Low magnesium level One oral every day 90 tablet 09/11/19 20 Active calcium carbonate CHEWABLE (MAALOX QUICK DISSOLVE) 400 mg calcium (1,000 mg) chew Take 1 Tab by mouth. Active famotidine (PEPCID) 20 mg tablet Take 20 mg by mouth. Active Calquence, acalabrutinib mal, 100 mg tablet Take 100 mg by mouth. 10/07/19 23 Active lisinopriL (PRINIVIL; ZESTRIL) 10 mg tablet 10 mg. 06/27/19 23 Active ferrous sulfate 325 mg delayed release tabletIndications :Microcytic anemia Take 1 Tablet (325 mg) by mouth once daily with a meal. 65 mg three times daily. 90 Tablet 3 12/24/19 23 Active amiodarone (CORDARONE) 200 mg tablet Take 100 mg by mouth once daily. 12/22/19 24 Active levothyroxine (SYNTHROID) 112 mcg tabletIndications :Hypothyroidism (acquired) Take 1 Tablet (112 mcg) by mouth once daily. 30 Tablet 1 05/01/20 24 Active ALPRAZolam (XANAX) 0.25 mg tabletIndications :Agoraphobia with panic attacks Take 1 Tablet (0.25 mg) by mouth every 12 hours if needed for Anxiety or Panic. 20 Tablet 05/17/20 24 Active furosemide (LASIX) 20 mg tablet 06/01/20 24 Active omeprazole (PRILOSEC) 20 mg Delayed-Release capsule Take 20 mg by mouth. 06/22/19 25 Active metoprolol tartrate 75 mg tabletIndications :Primary hypertension,Long standing persistent atrial fibrillation (HC) Take 0.5 Tablets (37.5 mg) by mouth two times daily. 90 Tablet 3 07/16/19 Active Additional Information Patient taking differently: 50 mgOral BID, Reported on 08/01/2024 amLODIPine (NORVASC) 5 mg tabletIndications :Primary hypertension Take 1 Tablet (5 mg) by mouth once daily. 90 Tablet 3 07/16/19 25 Active tamsulosin 0.4 mg capsuleIndication s:Nocturia Take 1 Capsule (0.4 mg) by mouth once daily after a meal. 90 Capsule 3 07/16/19 25 Active posaconazole (NOXAFIL) 100 mg delayed release tabletIndications :Aspergillus (HC) Take 3 Tablets (300 mg) by mouth once daily with a meal. 90 Tablet 07/30/19 25 Active CPAPIndications:O SA (obstructive sleep apnea) RESMED CPAP (E0601) machine for home use at pressure: 5-15cmw, Choice of mask (A7030 or A7034) w/full face cushion (A7031) x1/mo, nasal cushion (A7032) x2/mo, or nasal pillows (A7033) x 2/mo; Length of Need: 99 months; Frequency of use: Daily 1 Each 08/01/19 25 Active warfarin 5 mg tabletIndications :Longstanding persistent atrial fibrillation (HC),Anticoagulat ion monitoring, INR range 2-3 Take by mouth 10 mg (5 mg x 2) every Mon, Fri; 7.5 mg (5 mg x 1.5) all other days in the evening OR as directed 08/23/19 25 Active warfarin (COUMADIN) 5 mg tabletIndications :Longstanding persistent atrial fibrillation (HC),Anticoagulat ion monitoring, INR range 2-3 Take by mouth 10 mg (5 mg x 2) every Mon, Wed, Fri; 7.5 mg (5 mg x 1.5) all other days in the evening OR as directed 08/09/19 25 025 Discontinue d(Other - add note to specify (E-cancel not sent)) warfarin (COUMADIN) 5 mg tabletIndications :Longstanding persistent atrial fibrillation (HC),Anticoagulat ion monitoring, INR range 2-3 Take by mouth 10 mg (5 mg x 2) every Tue, Tue; 7.5 mg (5 mg x 1.5) all other days in the evening OR as directed 08/19/19 25 025 Discontinue d(Medicatio n therapy change per hospital protocol (E-cancel not sent)) Active Problems Problem Noted Date Diagnosed Date ROSY 07/18/2024 AHI- 49 08/01/2024 Anticoagulation monitoring, INR range 2-3 2024 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 [...] Encounters Date Type Department Care Team Description 09/05/2024 Anticoagulation (warfarin) [facility] [address] [place] [address] 1, [facility] Anticoagulation 09/04/2024 Orders Only [facility] Scanner 1 scan: (1-Ord) [facility], INR RESULTS, 09/04/2024 08/29/2024 Anticoagulation (warfarin) [facility] [address] [place] [address] 1, [facility] Anticoagulation 08/29/2024 Orders Only [facility] [address] [place] [address] Erma Trejo, [facility] 1 scan: (1-Ord) [facility], INR, 2024 08/22/2024 Anticoagulation (warfarin) [facility] [address] [place] [address] 1, [facility] Anticoagulation (Outside Lab) 08/21/2024 Orders Only [facility] Scanner 1 scan: (1-Ord) [facility], INR, 08/21/2024 08/20/2024 Telephone [facility] [address] [place] [address] Nikki Reilly DO Results (Lab results /) 08/18/2024 Anticoagulation (warfarin) [facility] [address] [place] [address] 1, [facility] Anticoagulation 08/17/2024 1:30 PM CDT Orders Only [facility] [address] [place] [address] Lab, [facility] 08/17/2024 Travel 08/13/2024 Anticoagulation (warfarin) [facility] [address] [place] [address] 1, [facility] Anticoagulation (Outside Lab) 08/11/2024 Telephone [facility] [address] [facility] [place] [address] Angela Reillyi, DO Anticoagulation (INR Result) 08/10/2024 Orders Only [facility] Scanner 1 scan: (1-Ord) [place], INR, 08/10/2024 08/08/2024 Anticoagulation (warfarin) [facility] [address] [facility] [place] [address] 1, [facility] Anticoagulation (Outside lab) 08/07/2024 Orders Only [facility] Scanner 1 scan: (1-Ord) [facility], INR RESULTS, 08/07/2024 08/02/2024 Orders Only [facility] Scanner 1 scan: (1-Ord) [facility], INR, 08/02/2024 08/02/2024 Anticoagulation (warfarin) [facility] [address] [facility] [place] [address] 1, [facility] Anticoagulation (Outside Lab) 08/02/2024 Telephone [facility] [address] [facility] [place] [address] Nikki Reilly, DO Anticoagulation (Lab order fax request. ) 08/01/2024 3:30 PM METAL SPINNER Office Visit [facility] [address] [facility] [place] [address] Noah Clements MD Sleep Consult 08/01/2024 Travel 07/31/2024 Orders Only [facility] [address] [facility] [place] [address] Angela Reillyi, DO 1 scan: (1-Ord) [facility]-EKG-2.24.25 07/30/2024 12:50 PM METAL SPINNER Office [place] [address] [place] [address] Nikki Reilly DO Hospital F/U (DOD 07/29 from [facility] ) 07/30/2024 Anticoagulation (warfarin) [facility] [place] [facility] [place] [address] 1, [facility] Anticoagulation (OV (Initial ED) ) 07/30/[address] [place] [address] Nikki Reilly DO Anticoagulation (Standing lab orders ) 07/30/[address] [place] [address] Nikki Reilly DO Refill Request (posaconazole (NOXAFIL) 100 mg delayed release tablet/) 07/30/2024 Travel 07/19/2024 8:30 AM METAL SPINNER Nurse/Clinic Staff [place] [address] [place] [address] Testing (HST Download ) 07/18/2024 2:15 PM METAL SPINNER Nurse/Clinic Staff [place] [address] [place] [address] Testing (HST setup) 07/18/2024 Procedure Only [address] [place] [address] Noah Clements MD Results (HST) 07/18/2024 Travel 07/16/2024 11:15 AM METAL SPINNER Ancillary Procedure [address] [place] [address] 07/16/2024 8:05 AM METAL SPINNER Office Visit [address] [place] [address] Nikki Reilly DO Hospital F/U (06/30/24 - 07/07/2024 [facility] [place] - Pneumonia ) 07/16/2024 Travel 07/10/[address] [place] [address] Nikki Reilly DO Refill Request (Tamsulosin) 06/30/2024 Orders Only [facility] Scanner 1 scan: (1-Ord) [facility], CT CHEST W CON, 06/30/2024 06/28/2024 Orders Only [facility] Scanner 1 scan: (1-Ord) [facility], CT CHEST W CON, 06/28/2024 06/26/2024 1:40 PM METAL SPINNER Office Visit [facility] [address] [place] [address] Nikki Reilly, Hospital F/U (Pneumonitis - 06/12-06/18 - reaction from Keytruda? ); Mouth/Lip Problem (Possible oral thrush? ) 06/26/2024 Travel 06/21/2024 Orders Only [facility] Scanner 1 scan: (1-Ord) [place], CHEST W, 06/21/2024 06/14/2024 Orders Only [facility] Scanner 1 scan: (1-Ord) [facility], XR CHEST 1V PORTABLE, 06/14/2024 06/14/2024 Orders Only [facility] Scanner 1 scan: (1-Ord) [place], CHEST W/CON, 06/14/2024 from Last 3 Months Immunizations Immunization Administration Dates Next Due AMB Influenza, IIV3 [...] Comments Good Health Brother 2 Cancer Father yudiekmarcy age 2 3 Other Father Hodgkins Heart [...] is your housing situation today? 1 05/17/2024 Utilities Answer Date Recorded Do you have trouble paying f or utilities (for example, heat, electricity, water, phone)? 1 05/17/2024 Sex and Gender Information Value Date Recorded Sex Assigned at Not on file Legal Sex Male 7:17 AM METAL SPINNER Gender Identity Not on file Sexual Orientation Not on file Obstetrics History Last Filed Vital Signs Vital Sign Reading Time Taken Comments Blood Pressure 143/75 08/01/2024 3:29 PM METAL SPINNER Pulse 71 08/01/2024 3:29 PM METAL SPINNER Temperature 36.9 C (98.4 F) 04/23/2020 11:09 AM METAL SPINNER Respiratory Rate 16 03/20/2020 2:20 PM CDT Oxygen Saturation 95% 08/01/2024 3:29 PM METAL SPINNER Inhaled Oxygen Concentration - - Weight 69.9 kg (154 lb) 08/01/2024 3:29 PM METAL SPINNER Height 175.2 cm (5' 8.98) 08/01/2024 3:29 PM CS T Body Mass Index 22.76 08/01/2024 3:29 PM METAL SPINNER Plan of Treatment Upcoming Encounters Date Type Department Care Team (Late st Contact Info) Description 09/26/2024 2:00 PM CDT Office Visit [facility] [address] [place] [address] Noah Clements MD [address] [place] [address] Health Maintenance Due Date Last Done Comments Zoster (shingles) series for age 50+ (1 of 2) 12/07/2010 10/12/2010 RSV vaccine for adults or (1 - 1-dose 75+ series) 2020 Tetanus booster 09/11/2022 09/11/2012, 01/04, 01/19/2006 COVID-19 vaccine series (8 - Pfizer risk season) 2024 02/22/2024, 03/21/2023, 03/02/2022, Additional history exists Depression screening for age 12+ 05/18/2025 05/18/2024, 05/17/2024, 12/23/2022, Additional history exists Medicare Wellness for age 65+ 05/18/2025, 12/23/2022, 03/09/2018, Additional history exists BMI (ht and wt on same day) for age 18+ 08/01/2025 08/01/2024, 05/17/2024, 12/23/2022, Additional history exists Tdap Completed 09/11/2012 Pneumococcal series for age 50+ Completed 5, 10/12/2010 Hepatitis C screening for ag e 18-79 Completed 03/09/2018 Influenza Vaccine Completed 03/21/2024, , 02/14/2023, Additional history exists Procedures Procedure Name Priority Date/Time Associated Diagnosis Comments SCAN-LABORATORY REPORT 12:00 AM CDT INR,POCT Routine 2024 11:37 AM CDT INR,POCT Routine 2024 12:00 AM CDT Longstanding persistent atrial fibrillation (HC) Anticoagulation monitoring, INR range 2-3 INR,POCT Routine 08/21/2024 SCAN-LABORATORY REPORT 12:00 AM CDT AMIODARONE (CORDARONE) Routine 1:27 PM CDT Longstanding persistent atrial fibrillation (HC) Medication management PROTIME-INR Routine 08/17/2024 1:26 PM CDT Longstanding persistent atrial fibrillation (HC) Anticoagulation monitoring, INR range 2-3 INR,POCT Routine 08/10/2024 SCAN-LABORATORY REPORT 5 12:00 AM METAL SPINNER INR,POCT Routine 08/07/2024 SCAN-LABORATORY REPORT 12:00 AM METAL SPINNER SCAN-LABORATORY REPORT 12:00 AM METAL SPINNER INR,POCT Routine 08/02/2024 EKG 12 LEAD Routine 07/31/2024 4:12 PM METAL SPINNER Aspergillus (HC) Medication management DC READING EKG - NO CHARGE, COMP ONLY Routine 07/31/2024 4:11 PM METAL SPINNER Aspergillus (HC) Medication management CBC WITH AUTO DIFFERENTIAL Routine 07/30/2024 2:04 PM METAL SPINNER Aspergillus (HC) Medication management COMP METABOLIC PANEL Routine 07/30/2024 2:04 PM METAL SPINNER Aspergillus (HC) Medication management AMIODARONE (CORDARONE) Routine 2:02 PM METAL SPINNER Aspergillus (HC) Medication management PROTIME-INR Routine 07/30/2024 2:01 PM METAL SPINNER Longstanding persistent atrial fibrillation (HC) HOME SLEEP TEST TYPE 3 PORTABLE Routine 07/18/2024 11:59 PM METAL SPINNER Suspected sleep apnea US VENOUS LOWER EXTREMITY RIGHT STAT 07/16/2024 9:34 AM METAL SPINNER Edema of right lower extremity FERRITIN Routine 07/16/2024 9:08 AM METAL SPINNER Normocytic anemia IRON PLUS IRON BINDING CAP Routine 07/16/2024 9:08 AM METAL SPINNER Normocytic anemia VITAMIN B12 Routine 07/16/2024 9:08 AM METAL SPINNER Normocytic anemia FOLIC ACID Routine 07/16/2024 9:08 AM METAL SPINNER Normocytic anemia HEMOGLOBIN Routine 07/16/2024 9:08 AM METAL SPINNER Normocytic anemia SCAN-CT INTERPRETATION 5 12:00 AM METAL SPINNER SCAN-CT INTERPRETATION 5 12:00 AM METAL SPINNER SCAN-CT INTERPRETATION 5 12:00 AM METAL SPINNER SCAN-RADIOLOGY REPORT 06/14/2024 12:00 AM METAL SPINNER SCAN-CT INTERPRETATION 5 12:00 AM METAL SPINNER ANTI HCV Routine 03/09/2018 10:39 AM CDT Need for hepatitis C screening test from Last 3 Months or Most Recently Relevant to Health Maintenance Results * SCAN-LABORATORY REPORT (09/04/2024 12:00 AM CDT) Only the most recent of5 resultswithin the time period is included. us Scanner OTHER Final Result * (ABNORMAL) INR,POCT (2024 11:37 AM CDT) Only the most recent of6 resultswithin the time period is included. INR 3.0([facility]NEY [facility]) 0.0 - 1.2 [facility] Blood BLOOD SPECIMEN / Unknown 2024 11:37 AM CDT us Private Company DO LABORATORY Final Result Performing Organization Address [facility] Co de Phone Number [address] [address] * (ABNORMAL) AMIODARONE (CORDARONE) (08/17/2024 1:27 PM CDT) Only the most recent of2 resultswithin the time period is included. AMIODARONE 1.2(L) 1.5 - 2.5 mcg/mL [facility] DESETHYLAMIODARONE 0.4(L) 1.5 - 2.5 mcg/mL [facility]/ [facility] [place] Comment: TOXIC: >2.5 Toxic effects have been observed at levels as low as 2.0 mcg/mL. This test was developed and its analytical performance characteristics have been determined by [employer]. It has not been cleared or approved by the U.S. Food and Drug Administration. This assay has been validated pursuant to the CLIA regulations and is used for clinical purposes. Blood BLOOD SPECIMEN / Unknown 08/17/2024 1:27 PM CDT 08/17/2024 1:28 PM CDT Private Company DO SEND OUTS Final Result Performing Organization Address City/[facility]/ZIP Co de Phone Number [facility]/ERIN THAPA [address] [place], [place] , [facility] [address] [facility] * (ABNORMAL) PROTIME-INR [83580.0] - Standing Order (08/17/2024 1:26 PM CDT) Only the most recent of2 resultswithin the time period is included. INR 3.4(H) <1.3 08/17/2024 10:17 PM CDT [facility] PROTIME 39.3(H) 10.6 - 12.4 sec 08/17/2024 10:17 PM CDT [facility] Blood BLOOD SPECIMEN / Unknown [facility] / Unknown 08/17/2024 1:26 PM CDT 08/17/2024 1:26 PM CDT Narrative [facility] - 08/17/2024 10:17 PM CDT Therapeutic Range 2.0-3.0 for most anticoagulated patients 2.5-3.5 or 4.0 for high risk patients The INR is only used for patients on stable oral anticoagulant therapy. It makes no significant contribution to the diagnosis or treatment of patients whose Protime is prolonged for other reasons. INR results are increased when heparin levels exceed 1.0 U/mL, which corresponds to an aPTT >125 seconds if the patient is on UFH. us Adei Shaqra DO HEMATOLOGY Final Result [facility] [address] [place] [address], [place] * EKG 12 LEAD (07/31/2024 4:12 PM METAL SPINNER) us Adei Shaqra DO EKG ORD Final Result * DC READING EKG - NO CHARGE, COMP ONLY (07/31/2024 4:11 PM METAL SPINNER) us Adei Venkatqra DO PB - PROVIDER READINGS Final Res ult * (ABNORMAL) CBC AND DIFFERENTIAL (07/30/2024 2:04 PM METAL SPINNER) WHITE BLOOD CELL COUNT 43.6(H) 3.8 - 10.8 Thousand/ uL [facility] RED BLOOD CELL COUNT 3.56(L) 4.20 - 5.80 Million/u L [facility] HEMOGLOBIN 10.5(L) 13.2 - 17.1 g/dL [facility] HEMATOCRIT 31.9(L) 38.5 - 50.0 % [facility] MCV 89.6 80.0 - 100.0 fL [facility] MCH 29.5 27.0 - 33.0 pg [facility] MCHC 32.9 32.0 - 36.0 g/dL [facility] Comment: For adults, a slight decrease in the calculated MCHC value (in the range of 30 to 32 g/dL) is most likely not clinically significant; however, it should be interpreted with caution in correlation with other red cell parameters and the patient's clinical condition. RDW 15.2(H) 11.0 - 15.0 % [facility] PLATELET COUNT 332 140 - 400 Thousand/ uL [facility] MPV 9.0 7.5 - 12.5 fL [facility] ABSOLUTE NEUTROPHILS 5,842 1,500 - 7,800 cells/uL [facility] ABSOLUTE LYMPHOCYTES 30,694(H) 850 - 3,900 cells/uL [facility] ABSOLUTE MONOCYTES 6,540(H) 200 - 950 cells/uL [facility] ABSOLUTE EOSINOPHILS 218 15 - 500 cells/uL [facility] ABSOLUTE BASOPHILS 305(H) 0 - 200 cells/uL [facility] NEUTROPHILS 13.4 % [facility] LYMPHOCYTES 70.4 % [facility] MONOCYTES 15.0 % [facility] EOSINOPHILS 0.5 % [facility] BASOPHILS 0.7 % [facility] CBC (INCLUDES DIFF/PLT) COMMENTS [facility] Comment: Few atypical lymphocytes noted Smudge cells present. Blood BLOOD SPECIMEN / Unknown 07/30/2024 2:04 PM METAL SPINNER 07/30/2024 2:05 PM METAL SPINNER us Nikki Venkatlarisa DO HEMATOLOGY Final Result [employer] [facility] [address] [place] [address], [facility] [address] [place] [address] * (ABNORMAL) COMP METABOLIC PANEL (07/30/2024 2:04 PM METAL SPINNER) GLUCOSE 104(H) 65 - 99 mg/dL [employer] Comment: Fasting reference interval For someone without known diabetes, a glucose value between 100 and 125 mg/dL is consistent with prediabetes and should be confirmed with a follow-up test. UREA NITROGEN (BUN) 25 7 - 25 mg/dL [facility] [facility] CREATININE 1.05 0.70 - 1.28 mg/dL [facility] [facility] [place] EGFR 73 > OR = 60 mL/min/1. 73m2 [facility] BUN/CREATININE RATIO SEE NOTE: 6 - 22 (calc) [facility] Comment: Not Reported: BUN and Creatinine are within reference range. SODIUM 136 135 - 146 mmol/L [facility] [facility] [place] POTASSIUM 4.6 3.5 - 5.3 mmol/L [facility] CHLORIDE 104 98 - 110 mmol/L [facility] CARBON DIOXIDE 21 20 - 32 mmol/L [facility] CALCIUM 8.7 8.6 - 10.3 mg/dL [facility] PROTEIN, TOTAL 5.4(L) 6.1 - 8.1 g/dL [facility] ALBUMIN 3.7 3.6 - 5.1 g/dL [facility] [place] GLOBULIN 1.7(L) 1.9 - 3.7 g/dL (calc) [facility] ALBUMIN/GLOBULIN RATIO 2.2 1.0 - 2.5 (calc) [facility] BILIRUBIN, TOTAL 0.8 0.2 - 1.2 mg/dL [facility] ALKALINE PHOSPHATASE 83 35 - 144 U/L [facility] AST 24 10 - 35 U/L [facility] ALT 33 9 - 46 U/L [facility] Blood BLOOD SPECIMEN / Unknown 07/30/2024 2:04 PM METAL SPINNER 07/30/2024 2:05 PM METAL SPINNER us Nikki Venkatlarisa DO CHEMISTRY Final Result [facility] [address] [place] [address], [facility] [address] [place] [address] * HOME SLEEP TEST TYPE 3 PORTABLE (07/18/2024 11:59 PM METAL SPINNER) Narrative Noah Clements MD - 07/18/2024 11:59 PM METAL SPINNER Noah Clements MD 07/21/2024 4:43 PM Home Sleep Test Name: Chad Jensen Location: [facility] Study notes: This is a single night home sleep apnea test. The study is performed in the context of a clinical suspicion for sleep apnea. Chad Jensen ( 1945) is studied using a T3 Device using nasal pressure transducer, thoracoabdominal respiratory impedence plethysmography belts, pulse oximetry, snore microphone and actigraphy for body position. The study is scored by a RPSGT and interpreted by a Diplomate of the [place] Board of Sleep Medicine. Raw summary data is scanned into this report as a separate document. An epoch by epoch review of the data has been performed by the interpreting physician. Scored following the AASM Manual for the Scoring of Sleep and Associated Events, V3. Respiratory Event Index (TERESA) Oxygen Desaturation Index (AHSAN) REI4% 41.6 ODI4%: 36.4 REI3% 48.9 ODI3%: 49.5 Supine TERESA: 52.5 Jace Saturation 69 % Lateral TERESA: 25.4 Time Below 88% 424.5 minutes Weight: Wt Readings from Last 1 Encounters: 07/16/24 70.8 kg (156 lb) Other data: Recording Duration: 600.0 minutes Time in Bed: 502.9 minutes Estimated sleep efficiency [%]: 93 % Oximeter Quality: 100.0 % Flow Quality: 93.3 % RIP Quality: 100.0 % Supine time: 413.8 minutes Average SpO2: 84.1 % Pulse Average: 91.2 bpm Additional Comments: None IMPRESSION: Obstructive Sleep Apnea (327.23, G47.33) Nocturnal Hypoxia (327.26, G47.34) RECOMMENDATIONS: - This is severe sleep apnea with marked hypoxemia. It is out of proportion to events- patient may need PSG titration to fully treat. - Hypoxia is noted. While this can be probe error, it may suggest underlying cardiopulmonary disease and clinical correlation is recommended. - Treatment for obstructive sleep apnea is recommended and CPAP would generally be considered first-line therapy for this severity of sleep apnea. Consider auto-titrating CPAP 5-20 cm. - Consider a referral to Health Weight Management for patients with a BMI > 30. - Follow-up with a provider to discuss results is recommended. - Patients should be advised to avoid critical tasks, such as driving, whenever drowsy. - Patients should try to achieve at least 7-8 hours of sleep on a consistent basis. - The TERESA is a surrogate for AHI. For reimbursement and/or prior authorization purposes, it would be appropriate to list the TERESA as an AHI when the latter is accepted, but not the former. Noah Clements M.D. Diplomate, Board of Sleep Medicine Recording Information Recording Date: 07/18/2024 Analysis Start Time: 10:15 PM Recording Tags: Analysis Stop Time: 6:37 AM Device Type: T3S Analysis Duration (TRT): 8h 22m Est. Total Sleep Time: 7h 57m Position and Analysis Time Duration Percentage Supine (in TST): 413.8 m 86.6 % Non-Supine (in TST): 63.8 m 13.4 % Upright (in TRT): 25.2 m 5 % Movement (in TST): 35.2 m 7.4 % Invalid Data (Excluded): 0 m 0 % Respiratory Indices Index Total Supine Non-supine Count Apneas + Hypopneas (REI3%): 48.9 /h 52.5 /h 25.4 /h 389 Apneas + Hypopneas (REI4%) 41.6 /h /h /h Apneas: 1.8 /h 1.9 /h 0.9 /h 14 Obstructive (OA): 0.6 /h 0.6 /h 0.9 /h 5 Mixed (MA): 0 /h 0 /h 0 /h 0 Central (CA): 1.1 /h 1.3 /h 0 /h 9 Hypopneas 3%: 47.1 /h 50.6 /h 24.4 /h 375 Hypopneas 4%: 0 /h 349 /h 26 /h 0 Respiration Rate (per m): 21 /m 21.1 /m 19.9 /m Percentage of Sleep Duration Snore: 21 % 20.1 % 27.1 % 100.5 m Flow Limitation: 0 % 0 % 0 % 0 m Average Snore Volume 68.8 dB Percent of time greater than 80dB: Percent of 23.3 % Oxygen Saturation (SpO2) Total Supine Non-supine Oxygen Desaturation Index (AHSAN): 49.5 /h 52.9 /h 27.3 /h Average SpO2: 84.1 % 84.2 % 83.3 % Minimum SpO2: 69 % 69 % 70 % SpO2 Duration < 90% 91.4 % (436.8m) 90.4 % 98.8 % SpO2 Duration <= 88% 88.9 % (424.5m) 87.5 % 98.3 % Pulse in TST Quality Average: 91.2 bpm Oximeter: 100 % Maximum: 153 bpm Nasal Cannula: 93.3 % Minimum: 55 bpm Abdomen RIP: 100 % Duration < 40 bpm: 0 m Thorax RIP: 100 % Duration > 100 bpm: 183.7 m [facility] Final Result * US VENOUS LOWER EXTREMITY RIGHT (07/16/2024 9:34 AM METAL SPINNER) Anatomical Region Laterality Modality LEGS, LEG R, Abdomen Ultrasound 07/16/2024 9:43 AM METAL SPINNER Impressions 07/16/2024 9:43 AM METAL SPINNER Normal venous ultrasound exam. No evidence of deep vein thrombosis within the right lower extremity. Dictated by Ron Walters MD @ 07/16/2024 9:43:14 AM (Electronically Signed) Narrative 07/16/2024 9:43 AM METAL SPINNER For Patients: As a result of the Cures Act, medical imaging exams and procedure reports are released immediately into your electronic medical record. You may view this report before your referring provider. If you have questions, please contact your health care provider. INDICATION: Edema of right lower extremity COMPARISON: None. TECHNIQUE: A compression venous ultrasound exam was performed of the right lower extremity using moore-scale imaging, color Doppler and spectral Doppler analysis. FINDINGS: Sonographic imaging of the right lower extremity demonstrates normal compressibility and color Doppler venous blood flow within the common femoral vein, deep femoral vein, and the proximal greater saphenous vein. Within the thigh, the femoral vein is patent and compressible. At a lower level, the popliteal and posterior tibial veins also show normal compressibility and color Doppler venous blood flow. Limited imaging of the contralateral groin demonstrates a normal spectral waveform and color Doppler venous blood flow within the left common femoral vein. Procedure Note Ron Walters MD - 07/16/2024 For Patients: As a result of the Cures Act, medical imagingexams and procedure reports are released immediately into your electronicmedical record. You may view this report before your referring provider.If you have questions, please contact your health care provider. INDICATION: Edema of right lower extremity COMPARISON: None. TECHNIQUE: A compression venous ultrasound exam was performed of the right lowerextremity using moore-scale imaging, color Doppler and spectral Doppleranalysis. FINDINGS: Sonographic imaging of the right lower extremity demonstrates normalcompressibility and color Doppler venous blood flow within the commonfemoral vein, deep femoral vein, and the proximal greater saphenous vein.Within the thigh, the femoral vein is patent and compressible. At a lowerlevel, the popliteal and posterior tibial veins also show normalcompressibility and color Doppler venous blood flow. Limited imaging of the contralateral groin demonstrates a normal spectralwaveform and color Doppler venous blood flow within the left commonfemoral vein. IMPRESSION: Normal venous ultrasound exam. No evidence of deep vein thrombosis withinthe right lower extremity. Dictated by Ron Walters MD @ 07/16/2024 9:43:14 AM (Electronically Signed) Nikki Reilly DO US Final Result * (ABNORMAL) IRON PLUS IRON BINDING CAP (07/16/2024 9:08 AM METAL SPINNER) [facility] IRON, TOTAL 45(L) 50 - 180 mcg/dL [facility] IRON BINDING CAPACITY 298 250 - 425 mcg/dL (calc) [facility] % SATURATION 15(L) 20 - 48 % (calc) [facility] Blood BLOOD SPECIMEN / Unknown 07/16/2024 9:08 AM METAL SPINNER 07/16/2024 9:08 AM METAL SPINNER Nikki Reilly DO CHEMISTRY Final Result Performing Organization Address [facility]/ZIP Co de Phone Number [employer] [address] [place] [address], [employer] [address] [place] [address] * (ABNORMAL) HEMOGLOBIN (07/16/2024 9:08 AM METAL SPINNER) [facility] HEMOGLOBIN 10.8(L) 13.2 - 17.1 g/dL [facility] Blood BLOOD SPECIMEN / Unknown 07/16/2024 9:08 AM METAL SPINNER 07/16/2024 9:08 AM METAL SPINNER [facility] Venkatq DO HEMATOLOGY Final Result Performing Organization Address [facility]/ZIP Co de Phone Number [employer] [facility] [address] [place] [address], [employer] [address] [place] [address] * FOLIC ACID (07/16/2024 9:08 AM METAL SPINNER) [facility] FOLATE, SERUM >24.0 ng/mL [facility] Comment: Reference Range Low: <3.4 Borderline: 3.4-5.4 Normal: >5.4 Blood BLOOD SPECIMEN / Unknown 07/16/2024 9:08 AM METAL SPINNER 07/16/2024 9:08 AM METAL SPINNER Nikki Venkatqra DO CHEMISTRY Final Result Performing Organization Address [facility]/ZIP Co de Phone Number [facility] [address] [place] [phone], [facility] [address] [place] [address] * (ABNORMAL) FERRITIN (07/16/2024 9:08 AM METAL SPINNER) Pathologist [facility] FERRITIN 555(H) 24 - 380 ng/mL [facility] Blood BLOOD SPECIMEN / Unknown 07/16/2024 9:08 AM METAL SPINNER 07/16/2024 9:08 AM METAL SPINNER Angelaanmol Robledolarisa DO CHEMISTRY Final Result Performing Organization Address [facility] Co de Phone Number [employer] [address] [phone], [facility] [address] [place] [phone] * VITAMIN B12 (07/16/2024 9:08 AM METAL SPINNER) [facility] VITAMIN B12 328 200 - 1,100 pg/mL [facility] Comment: Please Note: Although the reference range for vitamin B12 is 200-1100 pg/mL, it has been reported that between 5 and 10% of patients with values between 200 and 400 pg/mL may experience neuropsychiatric and hematologic abnormalities due to occult B12 deficiency; less than 1% of patients with values above 400 pg/mL will have symptoms. Blood BLOOD SPECIMEN / Unknown 07/16/2024 9:08 AM METAL SPINNER 07/16/2024 9:08 AM METAL SPINNER us Adei Shaqra DO CHEMISTRY Final Result Performing Organization Address City/[facility]/ZIP Co de Phone Number [facility] [address] [place] [address], [place] [phone] [facility] [address] [place] [address] * SCAN-CT INTERPRETATION (06/30/2024 12:00 AM METAL SPINNER) Only the most recent of4 resultswithin the time period is included. Anatomical Region Laterality Modality Other us Scanner OTHER Final Result * SCAN-RADIOLOGY REPORT (06/14/2024 12:00 AM METAL SPINNER) Anatomical Region Laterality Modality Other us Scanner OTHER Final Result * ANTI HCV [21275.2] (03/09/2018 10:39 AM CDT) HEPATITIS C ANTIBODY Non-React [place] Non-React [place] 03/09/2018 5:05 PM CDT [facility] Comment:Antibodies to HCV no t detected; does not exclude the possibility of exposure to HCV. Blood BLOOD SPECIMEN / Unknown Venipuncture / Unknown 03/09/2018 10:39 AM CDT 03/09/2018 10:39 AM CDT us Ron Garcia MD SEND OUTS Final Resu lt Performing Organization Address City/[facility]/ZIP Co de Phone Number [facility] [address] [place] [address], [place] from Last 3 Months or Most Recently Relevant to Health Maintenance Insurance MEDICARE PART A HB ONLY MEDICARE PART B HB ONLY [employer] [place] BLUE HB ONLY [employer] [place] BLUE MR PB ONLY Advance Directives * Full Code (Latest Code Status on File) Date Activated Date Inactivated Comments 11/22/2011 11:07 AM 11/22/2011 3:00 PM * Full Code Date Activated Date Inactivated Comments 11/22/2011 9:03 AM 11/22/2011 11:07 AM Care Teams Podiatric Assistant Relationship Specialty Start Date End Date Nikki Reilly DO [address] [facility] [place] [id number] PCP - General Family Practice 12/15/22
--- OUTSIDE RECORDS SUMMARY | 2024-09-11 11:39 | XMS_ITS | Encounter Summary ---
Author Organization [facility] Address [address] [place] [address] Care Team Providers Care Medical Scientific Liaison Name Role Phone Elsewhere, Pcp Primary Care Provider Unavailabl e Encounter Details Date Type Department Care Team (Late st Contact Info) Description 08/02/2024 Orders Only Department of Cardiovascular Medicine in [place], [place] [address] [place] [address] Trudy Padilla, Jose. [address] [place] [phone] Social History Tobacco Use Types Packs/Day Years Used Date Smoking Tobacco: Never Smokeless Tobacco: Never Alcohol Use Standard Drinks/Week Comments Never 0 (1 standard drink = 0.6 oz pur e alcohol) [facility] Utilities Answer Date Recorded In the past 12 months has [facility] [place], gas, oil, or water [employer] threatened to shut off services in your [...] How often do you attend mandaen or hindu serv ices? Never 06/30/2021 Do [...] heating? Not hard at all 06/30/2021 [facility] - Occupational [...] your living situation today? I have a [facility] place to live 07/19/2024 Education Answer Date Recorded What is the highest level of school you have completed or the highest degree you have received? Professional school degree (e.g., MD, DDS, DVM, GRACIELA) 06/30/2021 Sex and Gender Information Value Date Recorded Sex Assigned at Male 06/30/2021 12:19 PM PRINCIPAL SOFTWARE ENGINEER Legal Sex Male 7:31 AM CDT Gender Identity Male 06/30/2021 12:19 PM PRINCIPAL SOFTWARE ENGINEER Sexual Orientation Straight 06/30/2021 12 :19 PM PRINCIPAL SOFTWARE ENGINEER documented as of this encounter Functional Status [...] Date Author No 07/01/2024 10:08 AM Cheryl Menash M.S.W., Crow documented in this encounter Plan of Treatment Upcoming Encounters Date Type Department Care Team (Late st Contact Info) Description 09/24/2024 7:45 AM CDT Appointment Department of Radiology, [facility] in [place], [place] [address] [place] [phone] Julio Soto M.D. [address] [place] [phone] 09/24/2024 9:30 AM CDT Diagnostic Division of Pulmonary Medicine in [place], [place] [address] [place] [phone] Marilu Castaneda P.A.-C., M.S. [address] [place] [phone] 09/24/2024 10:40 AM CDT Appointment Department of Laboratory Medicine and Pathology, [facility] in [place], [place] [address] [place] [phone] Marilu Castaneda P.A.-C., M.S. [address] [place] [phone] 09/24/2024 2:30 PM CDT Office Visit Section of Infectious Diseases in [place], [place] [address] [place] [address] Julio Soto M.D. [address] [place] [phone] documented as of this encounter Visit Diagnoses Not on filedocumented in this encounter Additional Health Concerns Infection Onset Date Last Indicated Resolved Time Protective Environment 09/20/2022 09/20/202208/30 5:23 AM CDT Assessment Noted Time PHQ-9 Depression Total Score: 6 07/17/19 20 10:26 AM PRINCIPAL SOFTWARE ENGINEER documented as of this encounter Care Teams Medical Scientific Liaison Relationship Specialty Start Date End Date Elsewhere, Pcp PCP - General Theoretical Physics Teacher 06/27/19 documented as of this encounter
--- OUTSIDE RECORDS SUMMARY | 2024-09-11 11:39 | XMS_ITS | Encounter Summary ---
Author Organization [facility] Address [address] [place] [id number] Care Team Providers Care Lay Out And Detail Drafter Name Role Phone Elsewhere, Pcp Primary Care Provider Unavailabl e Reason for Visit * Reason Comments Palpitations Encounter Details Date Type Department Care Team (Latest Contact Info) Description 07/19/2024 9:58 AM DIE MAKER ELECTRONIC - 07/29/2024 1:49 PM DIE MAKER ELECTRONIC Hospital Encounter [facility], [facility], [facility], Fifth Floor [address] [place] [phone] Matthew Carlin M.D. [address] [place] [phone] Cathy Kern M.D. [address] [place] [phone] Jun Shipley M.D. [address] [place] [phone] Idris Parsons M.D., Ph.D. [address] [place] [phone] [place] [phone] Atrial Fibrillation Unspecified (HCC) (Primary Dx); Apnea Sleep Obstructive; Hypoxia; Acute Pulmonary Histoplasmosis Capsulati (HCC) Discharge Disposition: Home or Self Care Social History Tobacco Use Types Packs/Day Years Used Date Smoking Tobacco: Never Smokeless Tobacco: Never Alcohol Use Standard Drinks/Week Comments Never 0 (1 standard drink = 0.6 oz pur e alcohol) [facility] Utilities Answer Date Recorded In the past 12 months has e [employer], gas, oil, or water [employer] threatened to shut off services in [...] How often do you attend evangelical or jew serv ices? Never 06/30/2021 Do you belong [...] and heating? Not hard at all 06/30/2021 [facility] - Occupational [...] have a st jan place to live 07/19/2024 Education Answer Date Recorded What is the highest level of school you have completed or the highest degree you have received? Professional school degree (e.g., MD, DDS, DVM, GRACIELA) 06/30/2021 Sex and Gender Information Value Date Recorded Sex Assigned at Male 06/30/2021 12:19 PM DIE MAKER [employer]RON[employer] Legal Sex Male 7:31 AM CDT Gender Identity Male 06/30/2021 12:19 PM DIE MAKER ELECTRONIC Sexual Orientation Straight 06/30/2021 12 :19 PM DIE MAKER ELECTRONIC documented as of this encounter Last Filed Vital Signs Vital Sign Reading Time Taken Comments Blood Pressure 148/70 07/29/2024 1:00 PM DIE MAKER ELECTRONIC Pulse 60 07/29/2024 1:00 PM DIE MAKER ELECTRONIC Temperature 36.2 C (97.2 F) 07/29/2024 12:45 PM DIE MAKER ELECTRONIC Respiratory Rate 19 07/29/2024 1:00 PM DIE MAKER ELECTRONIC Oxygen Saturation 96% 07/29/2024 1:00 PM DIE MAKER ELECTRONIC Inhaled Oxygen Concentration - - Weight 67.8 kg (149 lb 7.6 oz) 07/27/2024 9:00 A M DIE [employer]KER [employer] Height 176 cm (5' 9.29) 07/20/2024 2:57 PM DIE MAKER ELECTRONIC Body Mass Index 21.89 07/20/2024 2:57 PM DIE MAKER ELECTRONIC documented in this encounter Functional Status * Intimate Partner Violence Question Answer Date of Assessment Author Within the last year, have y ou been humiliated or emotionally abused in other ways by your partner or ex-partner? No 07/19/2024 10:00 PM DIE MAKER ELECTRONIC Donovan Macdonald M.S.N., R.N. Within the last year, have y ou been afraid of your partner or ex-partner? No 07/19/2024 10:00 PM DIE MAKER ELECTRONIC Nahun Macdonald, M.S.N., R.N. Within the last year, have y ou been raped or forced to have any kind of sexual activity by your partner or ex-partner? No 07/19/2024 10:00 PM DIE MAKER ELECTRONIC Nahun Christian M.S.N., R.N. Within the last year, have y ou been kicked, hit, slapped, or otherwise physically hurt by your partner or ex-partner? No 07/19/2024 10:00 PM DIE MAKER ELECTRONIC Nahun Christian M.S.N., R.N. * Are you deaf or do you have serious difficulty hearing? Answer Date of Assessment Author No 07/01/2024 10:08 AM Cheryl Menash M.S.W., Jing. * Are you blind or [...] No 07/01/2024 10:08 AM Cheryl Mensah M.S.W., iJng. documented as of this encounter Mental Status * Because of a physical, mental, or emotional condition, do you have serious difficulty concentrating, remembering, or making decisions? (5 years old or older) Answer Entry Date Author No 07/01/2024 10:08 AM Cheryl Mensah M.S.W., Jing. documented in this encounter Discharge Summaries * Trudy Padilla P.A.-C. - 07/29/2024 12:23 PM CST [facility] DISCHARGE SUMMARY DATE OF ADMISSION: 07/19/2024 DATE OF DISCHARGE: 07/29/2024 Discharge Provider: Idris Parsons M.D., Ph.D. Discharge Provider Team: RST CARD 4 PRINCIPAL DIAGNOSIS Atrial Fibrillation Unspecified (HCC) DISMISSAL DIAGNOSES #1 Recurrent paroxysmal atrial fibrillation with rapid ventricular response, anticoagulation currently on hold due to #2 (CHADS2 VASc score 4) s/p ablation (2020) - S/p successful FRACISCO/DCCV 07/23/24 #2 Hemorrhagic secretions within the larynx, mainstem bronchi, and trachea (Bronchoscopy 07/02/2024) #3 Severe mitral regurgitation s/p ARIAS ( 1 XTR Mitraclip at A2/P2 for P2 flail by Dr. 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 Patient must remain with therapeutic anticoagulation for at least 30 days following cardioversion. Please see warfarin recommendations below. Closely monitor hemoglobin and hemoptysis in outpatient setting. For rate and rhythm control, metoprolol was continued and amiodarone was increased. Heart rhythm cardiology follow up was arranged for 08/29/2024. Should have a amiodarone level lab test and ECG in approximately 1 week post discharge, on ECG ensure no significant QTc prolongation Infectious Disease recommended to continue posaconazole at this time. Follow up has been arranged for 08/13/2024 to re-evaluate timeline. During admission, patient's granddaughter was able to find a pharmacy [facility] pharmacy in [facility] that could provide 90 day supply for approximately 500 dollars. Also his outpatient pulmonary DrBuddy had sent in a prior Auth for voriconazole. If this isapproved and patient has no co-pay, perhaps could transitioned to this but will defer to outpatientteam Consult pulmonology in the outpatient setting if concerns regarding repeat hemoptysis following resumption of anticoagulation. Patient did not demonstrate volume overload during admission, but could be initiated on low-dose maintenance diuretic as needed in the outpatient setting i again, i spoke with patient and his granddaughter (Kiki who is a pharmacist). They were able to find a deal for the posa about $500 for 90 days. They were going to go ahead with this just in the case that prior auth is denied for the Voriconazole. But certainly if it goes through they would be up for switching For Cardiology Provider: Assess for recurrence of symptomatic paroxysmal atrial fibrillation and consider future ablation ifpossible given severe MR. Continue to monitor volume status and initiate/adjust diuretic if indicated. Follow up with Dr. Thakkar in the heart valve Clinic in 03/2025 to re-evaluate mitral prosthesis. Discharge diuretic therapy is lasix 20 mg prn. Plan to take weights every morning, discharge/dry weight was 68 kg (150 lbs). If weight increases by greater than or equal to 3 lbs from baseline weightin 1 day or greater than or equal to 5 lbs from baseline weight in 1 week utilize furosemide 20 mg until weight returns to baseline. Please notify your primary care provider if needing to adjust diuretic dose. MEDICATIONS CHANGED DURING HOSPITAL STAY: Medications Stopped: Rivaroxaban Medications Changed: Metoprolol and amiodarone increased Medications Started: Warfarin PROCEDURES DURING STAY: 07/23/2024: FRACISCO-DCCV ANTICOAGULATION RECORD: INR goal: 2-3 Warfarin duration and indication: Atrial fibrillation Patient Instructions: Take 1.5 tablets (total 7.5 mg) on 07/29/2024. INR recheck on 07/30/2024. Warfarin Administrations (last 168 hours) Date/Time Action Medication Dose 07/28/24 1338 Given warfarin tablet 7.5 mg (Jantoven) 7.5 mg 07/27/24 1749 Given warfarin tablet 7.5 mg (Jantoven) 7.5 mg 07/26/24 1710 Given warfarin tablet 7.5 mg (Jantoven) 7.5 mg 07/25/24 1729 Given warfarin tablet 7.5 mg (Jantoven) 7.5 mg 07/24/24 1634 Given warfarin tablet 5 mg (Jantoven) 5 mg 07/23/24 1629 Given warfarin tablet 4 mg (Jantoven) 4 mg 07/22/24 1654 Given warfarin tablet 3 mg (Jantoven) 3 mg INR (no units) Date Value Status 07/29/2024 2.3 Final 07/28/2024 1.9 Final 07/27/2024 1.6 Final 07/26/2024 1.4 Final 07/25/2024 1.1 Final 07/24/2024 1.1 Final 07/23/2024 1.1 Final FOLLOW-UP APPOINTMENTS Scheduled Appointments 08/06/2024 3:00 PM RST IFD PVM INTAKE VISIT Admitting/Central Scheduling 08/13/2024 10:[address] [facility] 836 Radiology 08/13/2024 3:00 PM [facility] Infectious Diseases 2024 9:30 AM RST [facility] INTAKE VISIT Admitting/Central Scheduling 08/29/2024 7:45 AM [facility] Cardiovascular Disease 08/29/2024 9:00 AM Marilu Castaneda P.A.-C., M.S. Cardiovascular Disease For appointment details refer to your Patient Appointment Guide. HOSPITAL COURSE Admission Weight: 70.2 kg Dismissal Weight: 67.8 kg BMI: Body mass index is 21.89 kg/m??. Mr. Jensen is a 78-year-old gentleman admitted for further management of atrial fibrillation with RVR. He has comorbidities including but not limited to the following: Mitral regurgitation s/p ARIAS (1 XTR Mitraclip at A2/P2 for P2 flail [address] Dr. Echevarria, 06/28/2019), atrial fibrillation s/p ablation 2020 on Xarelto (anticoagulation currently held as discussed below), CLL on acalabrutinib, melanoma on Keytruda, prostate cancer, hypothyroidism, HTN, and GERD. Patient was recently hospitalized 06/30/2024 through 07/07/2024 for treatment of multifocal pneumonia.Initially, he was treated with broad-spectrum therapy consisting of Impinem and doxycycline then transitioned to cefepime and doxycycline. He was also administered steroids. It was decided to pursue b ronchoscopy. Patient's regimen of Xarelto was held and he was placed on heparin infusion for procedure. Infectious workup revealed positive beta D glucan as well as metapneumovirus. Bronchoscopy revealed hemorrhagic secretions within the larynx, mainstem bronchi, and trachea. Further lab work was positive for Aspergillus. Patient was initiated on posaconazole on 07/02/2024, which was to be continued for at least 3 months with outpatient follow up. Due to the hemoptysis and hemorrhagic secretionsas described above, it was recommended that anticoagulation be held for 2-3 weeks, then reassess. On 07/19/2024, patient presented to the emergency room for palpitations. ECG revealed atrial fibrillation with rapid ventricular response. There was no evidence of ST elevation. He was afebrile. Chestx-ray revealed improved bilateral airspace and interstitial opacities compared to previous. Blood work was pertinent for significant leukocytosis 36.9 and elevated D-dimer. Troponins were elevated but flat. Due to elevated D-dimer, CTA of the chest was performed which was negative for pulmonary emboli. There was also pulmonary edema with small bilateral pleural effusions, and his multifocal pneumonia had slightly improved. He was administered IV fluids, IV magnesium, and IV metoprolol with improvement of heart rates down into the low 100s. He was subsequently admitted to the Cardiology 4 service for further management and evaluation. Following admission, Mr. Jensen continued to have symptomatic persistent atrial fibrillation. Pulmonary consulted regarding safely restarting anticoagulation and felt it would be safe to resume. In order to try to pursue FRACISCO guided cardioversion day following admission, DOACs were considered, however significantly interacted with his posaconazole. Therefore, IV heparin was initiated along with transition to warfarin. He ultimately underwent FRACISCO- cardioversion on 07/23 with successful conversion to normal sinus rhythm. He was continued on metoprolol. Due to low amiodarone level at 0.4, his amiodarone was increased back to 200 mg and QTc was closely monitored given risk of lengthening QTc with concomitant amiodarone and posaconazole. will need repeat amiodarone level in 1 week. Anticoagulation was continued with warfarin, he was bridged with heparin until INR was therapeutic. He will need to remain on uninterrupted oral anticoagulation for at least 30 days following cardioversion. HRS follow up was arranged for 08/29/2024. He can discuss repeat ablation at this time. For his severe mitral regurgitation with small bilateral pleural effusions on admission, he was briefly diuresed with IV Lasix following admission. He was weaned off supplemental oxygen requirements.Diuretic was transitioned to oral prn furosemide. Dry weight 68 kg. Notably, he had been evaluated by our valvular colleagues March,, and it was felt the risk of producing mitral stenosis witha 2nd clip outweigh benefit. Infectious Disease was curbside regarding his posaconazole treatment given multiple drug to drug interactions and high cost. Ultimately, after further review of other options, they recommended to continue posaconazole with outpatient ID follow up on 08/13/2024. Mr. Jensen was discharged home on 07/29/2024 in stable condition. TEST RESULTS PENDING AT DISCHARGE: Pending Labs None CONDITION ON DISCHARGE: Stable. DIET AT DISCHARGE: Cardiac diet consisting of low sodium (2000 mg per day), low cholesterol, low fat. No alcohol, (or discuss with physician). PRIMARY PROVIDER Patient Care Team: Nikki Reilly D.O. as External Primary Care Physician (Family Medicine) Primary Care Providers: Elsewhere, Pcp (General) No address on file Primary Care Provider Phone Number: None Primary Care Provider Fax Number: None MARGIN CODE I personally spent total time of 55 minutes with >50% spent with counseling/coordination of care, independent from other providers on our team. [employer]KER [employer]LECTRONIC documented in this encounter Discharge Instructions * Discharge Instructions* Vanessa Brown P.A.-C. - 07/20/2024 2:02 PM DIE MAKER ELECTRONIC You were discharged from the RST CARD 4 Service. Please identify this service name if you call withquestions after hospitalization. Discharge diuretic therapy is lasix 20 mg prn. Plan to take weights every morning, discharge/dry weight was 68 kg (150 lbs). If weight increases by greater than or equal to 3 lbs from baseline weightin 1 day or greater than or equal to 5 lbs from baseline weight in 1 week utilize furosemide 20 mg until weight returns to baseline. Please notify your primary care provider if needing to adjust diuretic dose. MAKER ELECTRONIC MAKER ELECTRONIC * Patient Instructions* Phill Allred R.N. - 07/20/2024 11:27 AM DIE MAKER ELECTRONIC The Senior LinkAge Line?? is a service of the [place] [employer] in partnership with [place]'s Area Agencies on Aging. It is a free service of the [facility] that connects older [place] and their families with the help they need. Call the Senior LinkAge Line?? at: [phone] M-F, 8am-4:30pm to connect with specialists that are available to assist you with your specific needsor check out their website at [email or web address] MAKER [employer]LECTRONIC * Attachments The following attachments cannot be sent through Care Everywhere. * About Your Cardioversion * Warfarin (By mouth) (Syrian) documented in this encounter Medications at Time [...] before morning meal. 30 capsule 2 06/22/2024 tamsulosin (FLOMAX) 0.4 mg 24 hr capsule Take 0.4 mg by mouth daily. 01/14/2022 warfarin (Jantoven) 5 mg tablet Take 1.5 tablets (total 7.5 mg) by mouth on 07/29/2024 as directed. INR recheck on 07/30/2024. 135 tablet 3 07/29/2024 2:01 PM DIE MAKER ELECTRONIC 07/29/2024 posaconazole (NoxafiL) [address] tabletIndication s:Aspergillus infection Take 3 tablets (300 mg total) by mouth daily Indications: Aspergillus infection. 270 tablet 2 07/29/2024 documented as of this encounter Progress Notes * Liza Xie, Pharm.D., R.Ph. - 07/29/2024 11:09 AM CST Warfarin Warfarin Indication: Atrial fibrillation (AF) Type of therapy: New Target INR: 2 - 3 Day of therapy: 5 and beyond Notable drug interactions include the following: amiodarone Concurrent anticoagulation: None INR reversal agents: were not given Warfarin Administrations (last 168 hours) Date/Time Action Medication Dose 07/28/24 1338 Given warfarin tablet 7.5 mg (Jantoven) 7.5 mg 07/27/24 1749 Given warfarin tablet 7.5 mg (Jantoven) 7.5 mg 07/26/24 1710 Given warfarin tablet 7.5 mg (Jantoven) 7.5 mg 07/25/24 1729 Given warfarin tablet 7.5 mg (Jantoven) 7.5 mg 07/24/24 1634 Given warfarin tablet 5 mg (Jantoven) 5 mg 07/23/24 1629 Given warfarin tablet 4 mg (Jantoven) 4 mg 07/22/24 1654 Given warfarin tablet 3 mg (Jantoven) 3 mg INR (no units) Date Value Status 07/29/2024 2.3 Final 07/28/2024 1.9 Final 07/27/2024 1.6 Final 07/26/2024 1.4 Final 07/25/2024 1.1 Final 07/24/2024 1.1 Final 07/23/2024 1.1 Final Continuing warfarin for history of Afib and s/p DCCV 07/23. INR goal 2-3. Patient dismissing today with INR check tomorrow. Recommend 7.5mg this evening. Liza Xie, PharmD, BCPS. MAKER [employer]LECTRONIC * Nicolette Inman M.B.B.S. - 07/28/2024 11:34 AM CST CV4 Cardiology progress note HPI and brief course 78 y o M admitted 07/19/2024 for symptomatic PAF with RVR. Recent hospitalization for multifocal aspergillus pneumonia with hemorrhagic secretions with dc of rivaroxaban (dc 07/07). Later switch to warfarin in the setting of posaconazole use He is s/p FRACISCO guided cardioversion and is being bridged with IV heparin for warfarin On amiodarone and posaconazole with stable QTc at 480 msec today PMH Recurrent PAF with RVR s/p ablation 2020 Severe primary mitral regurgitation s/p ARIAS ( 1 XTR Mitraclip at A2/P2 for P2 flail by Dr. 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 INR Monitor QTc On amiodarone (chronically) Amiodarone level check 07/31 Continue metoprolol tartrate 50 mg BID Outpatient HRS follow up 08/29; repeat ablation is planned # Severe primary mitral regurgitation s/p ARIAS ( 1 XTR Mitraclip at A2/P2 for P2 flail by Dr. 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 Thakkar in March 2025 # Invasive pulmonary aspergillosis on posaconazole Outpatient plans: ID follow up on 08/13/2024 for pneumonia Oncology and melanoma follow up Outpatient follow up with Dr. Thakkar in March 2025 MAKER ELECTRONIC MAKER ELECTRONIC * Liza Xie, Pharm.D., R.Ph. - 07/28/2024 10:55 AM CST Pharmacist Progress Note Reason for admission: paroxysmal Afib with RVR PMH: Mitral regurgitation s/p ARIAS, Afib s/p ablation 2020, CLL on acalabrutinib, melanoma on Keytruda, prostate cancer, hypothyroidism, HTN, HLD, GERD, recent multifocal pneumonia w/ aspergillus infection. OBJECTIVE Neuro: Anxiety - Alprazolam 0.125 q12h prn. CV: Afib - metoprolol 50 bid, amiodarone 200 mg, IV heparin, warfarin. HTN - amlodipine 5 qd, lisinopril 15 bid. ID: Pulm aspergillosis - posaconazole 300 qd. Neph: Estimated Creatinine Clearance: 58.4 mL/min (by C-G formula based on SCr of 1 mg/dL). BL SCr 0.9. Mag qd. Endo: Hypothyroidism - LTX 112 qdac. Urol: tamsulosin. Heme: iron qod GI: GERD - pantoprazole 40 qd. PPX: warfarin Medication Reconciliation: Held: atorvastatin (posaconazole intxn), Changed: omep -> pantoprazole, increased metoprolol, rivaroxaban -> warfarin, amiodarone increased New: none Warfarin Warfarin Indication: Atrial fibrillation (AF) Target INR: 2 - 3 Warfarin Administrations (last 168 hours) Date/Time Action Medication Dose 07/27/24 1749 Given warfarin tablet 7.5 mg (Jantoven) 7.5 mg 07/26/24 1710 Given warfarin tablet 7.5 mg (Jantoven) 7.5 mg 07/25/24 1729 Given warfarin tablet 7.5 mg (Juntoven) 7.5 mg 07/24/24 1634 Given warfarin tablet 5 mg (Juntoven) 5 mg 07/23/24 1629 Given warfarin tablet 4 mg (Juntoven) 4 mg 07/22/24 1654 Given warfarin tablet 3 mg (Juntoven) 3 mg 07/21/24 1703 Given warfarin tablet 2 mg (Juntoven) 2 mg INR (no units) Date Value Status 07/28/2024 1.9 Final 07/27/2024 1.6 Final 07/26/2024 1.4 Final 07/25/2024 1.1 Final 07/24/2024 1.1 Final 07/23/2024 1.1 Final 07/22/2024 1.1 Final ASSESSMENT / PLAN Afib with RVR s/p successful DCCV 07/23 Metoprolol uptitrated for rate control Initiated warfarin given DOAC/posaconazole interaction. Goal INR 2-3.0. INR is subtherapeutic today but rising appropriately on warfarin 7.5 mg daily Bridge with parenteral anticoagulation until INR is therapeutic. Pulm aspergillosis Raised the question of whether an alternative antifungal could be used such as isavuconazole (possible trial eligibility?) given his significant cost for posaconazole and could utilize DOAC with isavuconazole. Service curbsided ID, they would like to continue posaconazole. Note at [facility] Posaconazole is $180/30 days supply. Atorvastatin contraindicated with posaconazole. Could consider switching to rosuvastatin 10 mg daily to avoid interaction however her LDL is very well controlled and indication is primary prevention in older adult so holding is reasonable. CLL/melanoma; acalabrutinib and Keytruda on hold 2 infection. Liza Xie Pharm.D., R.Ph. [employer] * Margarita Pink Pharm.D., R.Ph., [facility] - 07/27/2024 8:55 AM CST Pharmacist Progress Note Reason for admission: paroxysmal Afib with RVR PMH: Mitral regurgitation s/p ARIAS, Afib s/p ablation 2020, CLL on acalabrutinib, melanoma on Keytruda, prostate cancer, hypothyroidism, HTN, HLD, GERD, recent multifocal pneumonia w/ aspergillus infection. OBJECTIVE Neuro: Alprazolam 0.125 q12h prn. CV: Afib - metoprolol 50 bid, amiodarone 100 mg, IV heparin, warfarin. HTN - amlodipine 5 qd, lisinopril 15 bid. ID: Pulm aspergillosis - posaconazole 300 qd. Neph: Estimated Creatinine Clearance: 58.6 mL/min (by C-G formula based on SCr of 1 mg/dL). BL SCr 0.9. Mag qd. Endo: Hypothyroidism - LTX 112 qdac. Urol: tamsulosin. Heme: iron qod GI: GERD - pantoprazole 40 qd. PPX: none Medication Reconciliation: Held: amiodarone, atorvastatin (posaconazole intxn), Changed: omep -> pantoprazole, increased metoprolol, rivaroxaban -> warfarin New: none Warfarin Warfarin Indication: Atrial fibrillation (AF) Target INR: 2 - 3 Warfarin Administrations (last 168 hours) Date/Time Action Medication Dose 07/26/24 1710 Given warfarin tablet 7.5 mg (Jantoven) 7.5 mg 07/25/24 1729 Given warfarin tablet 7.5 mg (Jantoven) 7.5 mg 07/24/24 1634 Given warfarin tablet 5 mg (Jantoven) 5 mg 07/23/24 1629 Given warfarin tablet 4 mg (Jantoven) 4 mg 07/22/24 1654 Given warfarin tablet 3 mg (Jantoven) 3 mg 07/21/24 1703 Given warfarin tablet 2 mg (Jantoven) 2 mg 07/20/24 1727 Given warfarin tablet 2 mg (Jantoven) 2 mg INR (no units) Date Value Status 07/27/2024 1.6 Final 07/26/2024 1.4 Final 07/25/2024 1.1 Final 07/24/2024 1.1 Final 07/23/2024 1.1 Final 07/22/2024 1.1 Final 07/21/2024 1.0 Final 07/20/2024 1.2 Final ASSESSMENT / PLAN Afib with RVR s/p successful DCCV 07/23 Metoprolol uptitrated for rate control Initiated warfarin given DOAC/posaconazole interaction. Goal INR 2-3.0. INR is subtherapeutic today but rising appropriately on warfarin 7.5 mg daily Bridge with parenteral anticoagulation until INR is therapeutic. Pulm aspergillosis Raised the question of whether an alternative antifungal could be used such as isavuconazole (possible trial eligibility?) given his significant cost for posaconazole and could utilize DOAC with isavuconazole. Service curbsided ID, they would like to continue posaconazole. Note at [facility] Posaconazole is $180/30 days supply. Atorvastatin contraindicated with posaconazole. Could consider switching to rosuvastatin 10 mg daily to avoid interaction however her LDL is very well controlled and indication is primary prevention in older adult so holding is reasonable. CLL/melanoma; acalabrutinib and Keytruda on hold 2 infection. Margarita Pink, Kirt., R.Ph., [facility] [employer] * Vanessa Brown, P.Bo. - 07/27/2024 8:14 AM CST CARDIOLOGY INPATIENT PROGRESS NOTE SUBJECTIVE Mr. Jensen was seen and examined on morning rounds. Continues to feel well. Able to walk around without developing any adverse symptoms. OBJECTIVE TELEMETRY I reviewed the telemetry and alarms: Normal sinus rhythm INTAKE/OUTPUT Past 24 hours: Intake/Output Summary (Last 24 hours) at 07/27/2024 0833 Last data filed at 07/27/2024 0727 Gross per 24 hour Intake 1905.91 ml Output 1025 ml Net 880.91 ml Admission Weight: 70.2 kg Today's weight: 68 kg Weight change since admit: Weight change: Body mass index is 21.95 kg/m??. VITAL SIGNS I have reviewed the vital signs for the past 24 hours. Temperature: [36.3 ??C-36.8 ??C] 36.8 ??C Heart Rate: [57-71] 59 Resp Rate: [10-26] 17 Blood Pressure: (133-155)/(73-82) 152/76 SpO2: [94 %-96 %] 96 % Pulse Rate: [58-68] 60 PHYSICAL EXAMINATION General: Alert and oriented, resting comfortably in chair Cardiovascular: Regular rate and rhythm, no JVP, mild chronic right ankle edema Lungs: Normal work of breathing, on room air, intermittent cough Abdomen: Soft, nondistended, nontender Extremities: No cyanosis, warm to the touch and well perfused Mental/Psych: Pleasant, answers questions appropriately DIAGNOSTICS ECG 07/27 remains with stable QTc 466 ms LABS 07/27/24 INR 1.6 ASSESSMENT / PLAN #1 Recurrent paroxysmal atrial fibrillation with rapid ventricular response, anticoagulation currently on hold due to #2 (CHADS2 VASc score 4) s/p ablation (2020) - S/p successful FRACISCO/DCCV 07/23/24 #2 Hemorrhagic secretions within the larynx, mainstem bronchi, and trachea (Bronchoscopy 07/02/2024) #3 Severe mitral regurgitation s/p ARIAS ( 1 XTR Mitraclip at A2/P2 for P2 flail by Dr. 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 Jensen is a 78 y.o. male who is admitted to hospital on 07/19/24 for symptomatic PAF with RVR. Patient had recently been hospitalized on pulmonology from 06/30 to 07/07 for multifocal pneumonia. During this hospitalization, he was diagnosed with Aspergillus pneumonia and anticoagulation with rivaroxaban was held due to hemorrhagic secretion. Placed on posaconazole. Regarding atrial fibrillation, he is symptomatic with fatigue and palpitations. While on posaconazole he is not a candidate for DOAC and subsequently rivaroxaban was replaced with Coumadin along withheparin bridging. He underwent FRACISCO guided cardioversion with successful attainment of sinus rhythm.He remains on IV heparin until INR is therapeutic. We are slowly creeping to be therapeutic INR. Metoprolol on board for rate control. Amiodarone level resulted at 0.4 and dosing has subsequently been increased There is a significant interaction with the posaconazole inhibiting the clearance of the amiodaronerisking QTc prolongation, however he is on a low-dose of amiodarone. Thus far QTc has remained stable. PLAN: Paroxysmal Atrial Fibrillation Coumadin started, bridging with IV heparin, INR goal 2-3 Drug interactions with amiodarone and posaconazole necessitate empiric Coumadin dose reduction Amiodarone 200 mg Given concomitant posaconazole closely monitor for QTc prolongation Recheck amiodarone level 1 week (07/31/2024) Continue metoprolol tartrate 37.5 mg b.i.d. CV follow up in the [facility] with Marilu Calero on 08/29/2024, discuss repeat ablation Recent hemorrhagic secretions of respiratory tract - Pulmonary Medicine consulted OK to restart anticoagulation, monitor for any signs of bleeding or hemoptysis Severe mitral regurgitation with small bilateral pleural effusions Medical management Continue lisinopril 15 mg daily Ongoing volume assessment Outpatient follow up with Dr. Thakkar in March 2025 Continue posaconazole 300 mg daily for Aspergillus pneumonia ID follow up on 08/13/2024 Introduced patient to [facility] ($180/month) as well as good[facility] to ensure affordability There is also a prior auth for voriconazole sent by his pulmonary provider History of CLL and Melanoma Will e-mail his oncologist, Dr. Hurtado, once ready for discharge to arrange appropriate fu Continue to follow oxygen needs (previous baseline 1 L nocturnal) Consulted case management to assist with reconnect Consider repeat oxygen studies in the outpatient setting Continue other medications at this time, including amlodipine, tamsulosin, levothyroxine, Xanax p.r.n., magnesium supplementation, and pantoprazole (interchanged with Prilosec) Hold atorvastatin due to interaction with posaconazole Non-severe (moderate) Malnutrition The patient meets the ASPEN Criteria of malnutrition based on: Energy Intake: Less than 75% of estimated energy requirement for greater than or equal to 1 month Interpretation of Weight Loss: 10% 6 months Body Fat: Moderate Loss (Visually assessed) Muscle Mass: Moderate Loss (Visually assessed) Fluid Accumulation: Unable to Assess This is in the context of Chronic Illness. Malnutrition Present Upon Admission: Yes Agree with Registered Dietitian's assessment and treatment plan: Interventions: Medical food supplement VTE: N/A due to therapeutic anti-coagulation Gi: Pantoprazole Lines PIV Code Status: Full Code Disposition: Home - self care Vanessavirginia Brown P.A.-C. 07/27/24 I personally spent a total 50 minutes providing and coordinating care today. [employer] * Magi Sommer R.N. - 07/27/2024 7:44 AM CST SUBJECTIVE scales inspector to assist with discharge planning needs. The patient declined additional resources. Anticipated Needs Functional Status: None Assistive Devices: none Services/Resources: Home Oxygen Modifications to home environment: None Transportation: support from family/friends Anticipated discharge destination: Home with Home Oxygen OBJECTIVE Chad Jensen is currently hospitalized on [id number]. ASSESSMENT / PLAN Assessment Those noted above appear to have insight into the patient's needs at this time and are planning appropriately for discharge needs. They report agreement with the below plan with no further questions at this time. Plan Oxygen Reconnect: Durable Medical Equipment - Admitted Since 07/19/2024 Service Provider Services Address Phone Fax Patient Preferred [facility] [place] Durable Medical Equipment [phone] [place], [place] [phone] -- Contact: Intake Respiratory Equipment: concentrator Oxygen provider reports patient???s current orders are for 1 liter at night. NURSING: - Arrange transportation oxygen tank if needed. - If new oxygen requirements are needed, assist primary service with new prescription and fax to provider. PRIMARY SERVICE: - Complete and sign new oxygen prescription if needed. [employer] Supervisor : -Reviewed patient's insurance coverage for the services noted above. The patient appear(s) to have an understanding of this. -Will continue to follow and assist if needs arise. Ion Sommer R.N. 07/27/2024 [employer] * Margarita Pink, Pharm.D., R.Ph., [facility] - 07/26/2024 2:28 PM CST Pharmacist Progress Note Warfarin Warfarin Indication: Atrial fibrillation (AF) Target INR: 2 - 3 Warfarin Administrations (last 168 hours) Date/Time Action Medication Dose 07/25/24 1729 Given warfarin tablet 7.5 mg (Juntoven) 7.5 mg 07/24/24 1634 Given warfarin tablet 5 mg (Juntoven) 5 mg 07/23/24 1629 Given warfarin tablet 4 mg (Juntoven) 4 mg 07/22/24 1654 Given warfarin tablet 3 mg (Juntoven) 3 mg 07/21/24 1703 Given warfarin tablet 2 mg (Juntoven) 2 mg 07/20/24 1727 Given warfarin tablet 2 mg (Juntoven) 2 mg INR (no units) Date Value Status 07/26/2024 1.4 Final 07/25/2024 1.1 Final 07/24/2024 1.1 Final 07/23/2024 1.1 Final 07/22/2024 1.1 Final 07/21/2024 1.0 Final 07/20/2024 1.2 Final ASSESSMENT / PLAN Afib with RVR. Initiating warfarin given DOAC/posaconazole interaction. Goal INR 2-3.0. Baseline was INR 1.1. Bridging with heparin infusion. Warfarin dose was empirically reduced on initiation given drug interactions with amiodarone and posaconazole both expected to increase INR. Suprisingly, INR was slow to change despite several days ofescalating doses. Will continue warfarin 7.5 mg tonight. Margarita Pink, Pharm.D., R.Ph., [facility] [employer] * Vanessa Brown, P.A.Charo. - 07/26/2024 8:02 AM CST CARDIOLOGY INPATIENT PROGRESS NOTE SUBJECTIVE Mr. Jensen was seen and examined on morning rounds. Continues to feel well. It has been walking in the hallways no issues with weakness or shortness of breathl OBJECTIVE TELEMETRY I reviewed the telemetry and alarms: Normal sinus rhythm INTAKE/OUTPUT Past 24 hours: Intake/Output Summary (Last 24 hours) at 07/26/2024 0802 Last data filed at 07/26/2024 0709 Gross per 24 hour Intake 2386.86 ml Output 1275 ml Net 1111.86 ml Admission Weight: 70.2 kg Today's weight: 68 kg Weight change since admit: Weight change: Body mass index is 21.95 kg/m??. VITAL SIGNS I have reviewed the vital signs for the past 24 hours. Temperature: [36.5 ??C-36.8 ??C] 36.8 ??C Heart Rate: [57-68] 59 Resp Rate: [10-25] 25 Blood Pressure: (125-151)/(63-76) 146/76 SpO2: [93 %-97 %] 93 % Flow Rate (L/min): [1 L/min] 1 L/min Weight: [68 kg] 68 kg BMI (Calculated): [22 kg/m??] 22 kg/m?? Pulse Rate: [58-63] 58 PHYSICAL EXAMINATION General: Alert and oriented, resting comfortably in chair Cardiovascular: Regular rate and rhythm, no JVP, mild chronic right ankle edema Lungs: Normal work of breathing, on room air, intermittent cough Abdomen: Soft, nondistended, nontender Extremities: No cyanosis, warm to the touch and well perfused Mental/Psych: Pleasant, answers questions appropriately DIAGNOSTICS ECG remains with stable QTc LABS 07/26/24 CBC hemoglobin 10.3, hematocrit 32.9, platelets 315, leukocytes 36.2 INR 1.4 BMP sodium 140, potassium 4.5, creatinine 1.0 ASSESSMENT / PLAN #1 Recurrent paroxysmal atrial fibrillation with rapid ventricular response, anticoagulation currently on hold due to #2 (CHADS2 VASc score 4) s/p ablation (2020) - S/p successful FRACISCO/DCCV 07/23/24 #2 Hemorrhagic secretions within the larynx, mainstem bronchi, and trachea (Bronchoscopy 07/02/2024) #3 Severe mitral regurgitation s/p ARIAS ( 1 XTR Mitraclip at A2/P2 for P2 flail by Dr. 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 Jensen is a 78 y.o. male who is admitted to hospital on 07/19/24 for symptomatic PAF with RVR. Patient had recently been hospitalized on pulmonology from 06/30 to 07/07 for multifocal pneumonia. During this hospitalization, he was diagnosed with Aspergillus pneumonia and anticoagulation with rivaroxaban was held due to hemorrhagic secretion. Placed on posaconazole. Regarding atrial fibrillation, he is symptomatic with fatigue and palpitations. While on posaconazole he is not a candidate for DOAC and subsequently rivaroxaban was replaced with Coumadin along withheparin bridging. He underwent FRACISCO guided cardioversion with successful attainment of sinus rhythm.He remains on IV heparin until INR is therapeutic. Metoprolol on board for rate control. Amiodaronelevel resulted at 0.4 and dosing has subsequently been increased There is a significant interaction with the posaconazole inhibiting the clearance of the amiodaronerisking QTc prolongation, however he is on a low-dose of amiodarone. Thus far QTc has remained stable. 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 PLAN: Paroxysmal Atrial Fibrillation Coumadin started, bridging with IV heparin, INR goal 2-3 Drug interactions with amiodarone and posaconazole necessitate empiric Coumadin dose reduction Amiodarone 200 mg Given concomitant posaconazole closely monitor for QTc prolongation Recheck amiodarone level 1 week (07/31/2024) Continue metoprolol tartrate 37.5 mg b.i.d. CV follow up in the [facility] clinic with Marilu Calero on 08/29/2024, discuss repeat ablation Recent hemorrhagic secretions of respiratory tract - Pulmonary Medicine consulted OK to restart anticoagulation, monitor for any signs of bleeding or hemoptysis Severe mitral regurgitation with small bilateral pleural effusions Medical management Continue lisinopril 15 mg daily Ongoing volume assessment Outpatient follow up with Dr. Thakkar in March 2025 Continue posaconazole 300 mg daily for Aspergillus pneumonia ID follow up on 08/13/2024 Introduced patient to [facility] ($180/month) as well as goodRx to ensure affordability History of CLL and Melanoma Will e-mail his oncologist, Dr. Hurtado, once ready for discharge to arrange appropriate fu Continue to follow oxygen needs (previous baseline 1 L nocturnal) Consulted case management to assist with reconnect Consider repeat oxygen studies in the outpatient setting Continue other medications at this time, including amlodipine, tamsulosin, levothyroxine, Xanax p.r.n., magnesium supplementation, and pantoprazole (interchanged with Prilosec) Hold atorvastatin due to interaction with posaconazole Non-severe (moderate) Malnutrition The patient meets the ASPEN Criteria of malnutrition based on: Energy Intake: Less than 75% of estimated energy requirement for greater than or equal to 1 month Interpretation of Weight Loss: 10% 6 months Body Fat: Moderate Loss (Visually assessed) Muscle Mass: Moderate Loss (Visually assessed) Fluid Accumulation: Unable to Assess This is in the context of Chronic Illness. Malnutrition Present Upon Admission: Yes Agree with Registered Dietitian's assessment and treatment plan: Interventions: Medical food supplement VTE: N/A due to therapeutic anti-coagulation Gi: Pantoprazole Lines PIV Code Status: Full Code Disposition: Home - self care Vanessa Brown P.A.-C. 07/26/24 I personally spent a total 50 minutes providing and coordinating care today. [employer] * Kiki Mckeon M.S., RDN, LD - 07/25/2024 2:56 PM CST Clinical Nutrition: Follow-up Clinical Nutrition continues to follow patient for assessment of nutritional status and nutrition education/counseling Completed visit with patient today as part of face to face care. SUBJECTIVE Mr. Jensen is a 78 y.o. male admitted for Atrial Fibrillation Unspecified (HCC) PMH per H&P: Mitral regurgitation s/p ARIAS ( 1 XTR Mitraclip at A2/P2 for P2 flail by Dr. Echevarria, 06/28/2019) ,Atrial fibrillation s/p ablation 2020 on Xarelto (anticoagulation currently held as discussed below), CLL on acalabrutinib, melanoma on Keytruda, prostate cancer, hypothyroidism, HTN, HLD, and GERD. Patient has known chronic lower extremity edema of his right leg (recent ultrasound negative). Nutrition Prior to Admission: Per recent RDN assessment on 07/02/24 Chad notes that in this last month eating has been poor relating to loss of his . He noted that he has lost some weight within this time as well. Noted pt's May last year d/t pneumonia. Pt's oral intakes at home are pretty consistent each day. He finds meal preparation is difficult. Eats 3 meals dailythough lunch is often just a protein drink. Protein with dinner such as hamburger and a side may becorn or mac and cheese and very occasionally coleslaw or an iceberg lettuce salad. Drinks 2 protein/Boost drinks (sometimes 3) daily mixed with ice cream. Sausage and qatari muffin with breakfast. Current Nutrition: Visit with pt today per request to review Vit K intake with Warfarin. Pt previously expressed great frustration with frequent NPO status and inability to order meals and certain points earlier in admission. Today he reports that eating is going well and he is receiving enough to eat. He wants mix a chocolate milkshake with an ensure drink at his meals. Percentage of Meals Eaten for the past 72 hrs: Percent Meals Eaten (%) 07/25/24 1431 100 07/25/24 0933 100 07/24/24 1900 100 07/24/24 1428 75 07/24/24 0900 100 07/23/24 2015 100 07/23/24 1400 100 07/22/24 1900 100 Food Allergies/Intolerances: None per chart review Nutrition Education: Primary team provided pt with the following handout: Managing Your Diet: Vitamin K and Warfarin ([id number]). During visit on 07/24 RDN reviewed basic concepts of consistent Vit K intake with warfarin. Today reviewed concepts again and discussed plan to consistently drink 2 Boostor Ensure drinks daily as this appears to be pt's highest form of vitamin K intake in a single itemat home (~30 mcg per bottle). Based on diet recall, discussed strategies for maintaining consistentVit K intake at home. OBJECTIVE Current nutrition orders: Dietary Orders (From admission, onward) Start Ordered 07/25/24 1453 Oral supplement -Shake/Smoothie; Shake - Chocolate w/Protein; Take at: Breakfast, Lunch, Dinner (Oral Nutrition Supplement) Until discontinued Question Answer Comment Type: Shake/Smoothie Shake/Smoothie: Shake - Chocolate w/Protein Take at: Breakfast Take at: Lunch Take at: Dinner 07/25/24 1452 07/25/24 1452 Oral supplement -Supplement; Ensure (chocolate); 1 each; Take at: Lunch, Dinner (OralNutrition Supplement) Until discontinued Question Answer Comment Type: Supplement Supplement: Ensure (chocolate) Size: 1 each Take at: Lunch Take at: Dinner 07/25/24 1452 07/23/24 1122 Adult Diet Regular (Adult Diet) Diet effective now Question: Diet texture: Answer: Regular 07/23/24 1121 Pertinent Labs: Reviewed GI Function:Last BM Date: 07/24/24 (per pt report), [place] Stool Chart: Type 1: Separate hard lumps, like nuts (hard to pass), Integumentary/Wounds:Lloyd scale score 20 Lines/Drains/Airways Wound Duration Wound 07/20/24 Intertriginous Dermatitis Buttocks Bilateral 5 days Medications: Scheduled Meds:amiodarone, 200 mg, oral, Daily amLODIPine, 5 mg, oral, Daily ferrous sulfate, 65 mg of iron, oral, Every Other Day levothyroxine, 112 mcg, oral, Daily before morning meal lisinopriL, 15 mg, oral, BID magnesium chloride, 64 mg, oral, Daily before morning meal metoprolol tartrate, 50 mg, oral, BID pantoprazole, 40 mg, oral, Daily before morning meal posaconazole, 300 mg, oral, Daily sodium chloride, 3 mL, intravenous, Q12H SILVANO sodium chloride, 3 mL, intravenous, Q12H SILVANO tamsulosin, 0.4 mg, oral, Daily warfarin, 7.5 mg, oral, Once Continuous Infusions:heparin (porcine) 100 Units/mL in NaCl 0.45% 250 mL infusion, 1-30 Units/kg/hr(Dosing Weight), Last Rate: 16 Units/kg/hr (07/25/24 1126) PRN Meds:. acetaminophen ALPRAZolam bisacodyL bisacodyL D5W heparin (porcine) OR heparin (porcine) NaCl 0.9% bacteriostatic NaCl 0.9% NaCl 0.9% sodium chloride sodium chloride sodium chloride sodium chloride sodium chloride Anthropometrics: Height: 176 cm Admission Weight: 70.2 kg (07/19/2024) Current Weight: 68 kg BMI (Calculated): 22 kg/m?? Weight change since admission: -2.2 kg Net IO Since Admission: 6,118.2 mL [07/25/24 1456] Weight history: Wt Readings from Last 12 Encounters: 07/21/24 67.8 kg 06/30/24 70.5 kg 03/13/24 76 kg -- 10.8% weight loss in the past 4 months 01/13/24 77 kg 05/03/23 81 kg 02/23/23 80 kg 11/24/22 81.2 kg 10/13/22 80.4 kg 05/12/22 83.1 kg 04/02/22 83 kg 01/09/22 79.6 kg 08/06/21 81.6 kg ASSESSMENT / PLAN Nutrition Diagnosis: Malnutrition (undernutrition) related to chronic illness as evidenced by meeting malnutrition criteria per AND/ASPEN guidelines. Ongoing Malnutrition Assessment: ASPEN Criteria of Malnutrition: Nutritional Status: Non-severe (moderate) Malnutrition Malnutrition in the Context of: Chronic Illness Based on: Energy Intake: Less than 75% of estimated energy requirement for greater than or equal to 1 month Interpretation of Weight Loss: 10% 6 months Body Fat: Moderate Loss (Visually assessed) Muscle Mass: Moderate Loss (Visually assessed) Fluid Accumulation: Unable to Assess Estimated Needs: Total Calorie Needs: 2820-0276 calories/day Method to Estimate Energy Needs: kcal/kg (25-30 kcal/kg) Weight Used for Equation Calculations: 68.2 kg Total Protein Needs: 68 - 89 grams/day (Method to Estimate Protein Needs (g/kg): 1 - 1.3 gm/kg) Weight Used to Calculate Protein Needs (Kg): 68.2 kg Nutrition Intervention: Interventions: Medical food supplement Monitoring/Evaluation: Nutrition parameter to monitor: Diet Progression/NPO Status, Meals/Supplement Intake, Weight Status, Pertinent Labs, and Ascites/Edema Desired Outcome: Consume adequate nutrition orally No further weight loss Recommendations: No changes at this time; continue current nutrition orders BID Ensure Original with meals to bolster intakes and prevent further unintentional weight loss. Clinical Nutrition will continue to follow. For questions about patient's nutritional care please contact pager [phone] on weekdays 07:30-16:00 or [phone] on weekends/holidays ([facility]) [phone]. [employer] * DetermMargarita brady Pharm.D., R.Ph., [facility] - 07/25/2024 9:24 AM CST Pharmacist Progress Note Warfarin Warfarin Indication: Atrial fibrillation (AF) Target INR: 2 - 3 Warfarin Administrations (last 168 hours) Date/Time Action Medication Dose 07/24/24 1634 Given warfarin tablet 5 mg (Juntoven) 5 mg 07/23/24 1629 Given warfarin tablet 4 mg (Juntoven) 4 mg 07/22/24 1654 Given warfarin tablet 3 mg (Juntoven) 3 mg 07/21/24 1703 Given warfarin tablet 2 mg (Juntoven) 2 mg 07/20/24 1727 Given warfarin tablet 2 mg (Juntoven) 2 mg INR (no units) Date Value Status 07/25/2024 1.1 Final 07/24/2024 1.1 Final 07/23/2024 1.1 Final 07/22/2024 1.1 Final 07/21/2024 1.0 Final 07/20/2024 1.2 Final 07/19/2024 1.1 Final ASSESSMENT / PLAN Afib with RVR. Initiating warfarin given DOAC/posaconazole interaction. Goal INR 2-3.0. Baseline was INR 1.1. Bridging with heparin infusion. Warfarin dose was empirically reduced on initiation given drug interactions with amiodarone and posaconazole both expected to increase INR. Suprisingly, INR has not changed from baseline despite several days of escalating doses. Will order warfarin 7.5 mg tonight. Margarita Pink Pharm.D., R.Ph., [facility] [employer] * Vanessa Brown P.A.-C. - 07/25/2024 8:17 AM CST CARDIOLOGY INPATIENT PROGRESS NOTE SUBJECTIVE Mr. Jensen was seen and examined on morning rounds. Continues to feel well no that back in sinus rhythm. He is having some increased anxiety based on being in hospital OBJECTIVE TELEMETRY I reviewed the telemetry and alarms: Normal sinus rhythm, rates in the 60s INTAKE/OUTPUT Past 24 hours: Intake/Output Summary (Last 24 hours) at 07/25/2024 0817 Last data filed at 07/25/2024 0300 Gross per 24 hour Intake 1970.37 ml Output 550 ml Net 1420.37 ml Admission Weight: 70.2 kg Today's weight: 68 kg Weight change since admit: Weight change: Body mass index is 21.95 kg/m??. VITAL SIGNS I have reviewed the vital signs for the past 24 hours. Temperature: [36.4 ??C-36.7 ??C] 36.7 ??C Heart Rate: [58-79] 59 Resp Rate: [11-23] 11 Blood Pressure: (132-144)/(64-77) 143/71 SpO2: [94 %-97 %] 97 % Flow Rate (L/min): [1 L/min] 1 L/min Pulse Rate: [58-67] 58 PHYSICAL EXAMINATION General: Alert and oriented, resting comfortably in chair Cardiovascular: Regular rate and rhythm, no JVP, mild chronic right ankle edema Lungs: Normal work of breathing, on room air, intermittent cough Abdomen: Soft, nondistended, nontender Extremities: No cyanosis, warm to the touch and well perfused Mental/Psych: Pleasant, answers questions appropriately DIAGNOSTICS ECG remains with stable QTc LABS 07/25/24 CBC hemoglobin 10, hematocrit 32.8, leukocytes 32 (from 23/12 0.6) INR 1.1 BMP sodium 138, potassium 4.4, creatinine 0.93 ASSESSMENT / PLAN #1 Recurrent paroxysmal atrial fibrillation with rapid ventricular response, anticoagulation currently on hold due to #2 (CHADS2 VASc score 4) s/p ablation (2020) - S/p successful FRACISCO/DCCV 07/23/24 #2 Hemorrhagic secretions within the larynx, mainstem bronchi, and trachea (Bronchoscopy 07/02/2024) #3 Severe mitral regurgitation s/p ARIAS ( 1 XTR Mitraclip at A2/P2 for P2 flail by Dr. 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 Jensen is a 78 y.o. male who is admitted to hospital on 07/19/24 for symptomatic PAF with RVR. Patient had recently been hospitalized on pulmonology from 06/30 to 07/07 for multifocal pneumonia. During this hospitalization, he was diagnosed with Aspergillus pneumonia and anticoagulation with rivaroxaban was held due to hemorrhagic secretion. Placed on posaconazole. Regarding atrial fibrillation, he is symptomatic with fatigue and palpitations. While on posaconazole he is not a candidate for DOAC and subsequently rivaroxaban was replaced with Coumadin along withheparin bridging. He underwent FRACISCO guided cardioversion with successful attainment of sinus rhythm.He remains on IV heparin until INR is therapeutic. Metoprolol on board for rate control. Amiodaronelevel resulted at 0.4 and dosing has subsequently been increased There is a significant interaction with the posaconazole inhibiting the clearance of the amiodaronerisking QTc prolongation, however he is on a low-dose of amiodarone. Thus far QTc has remained stable. 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 PLAN: Paroxysmal Atrial Fibrillation Coumadin started, bridging with IV heparin, INR goal 2-3 Drug interactions with amiodarone and posaconazole necessitate empiric Coumadin dose reduction Increase amiodarone 200 mg Given concomitant posaconazole closely monitor for QTc prolongation Recheck amiodarone level 1 week (07/31/2024) Continue metoprolol tartrate 37.5 mg b.i.d. CV follow up in the [facility] clinic with Marilu Calero on 08/29/2024, discuss repeat ablation Recent hemorrhagic secretions of respiratory tract - Pulmonary Medicine consulted [place] to restart anticoagulation, monitor for any signs of bleeding or hemoptysis Severe mitral regurgitation with small bilateral pleural effusions Medical management Continue lisinopril 15 mg daily Ongoing volume assessment Outpatient follow up with Dr. Thakkar in March 2025 Continue posaconazole 300 mg daily for Aspergillus pneumonia ID follow up on 08/13/2024 Introduced patient to cost plus drugs ($180/month) as well as goodRx to ensure affordability History of CLL and Melanoma Will e-mail his oncologist, Dr. Hurtado, once ready for discharge to arrange appropriate fu Continue to follow oxygen needs (previous baseline 1 L nocturnal) Consulted case management to assist with reconnect Consider repeat oxygen studies in the outpatient setting Continue other medications at this time, including amlodipine, tamsulosin, levothyroxine, Xanax p.r.n., magnesium supplementation, and pantoprazole (interchanged with Prilosec) Hold atorvastatin due to interaction with posaconazole Non-severe (moderate) Malnutrition The patient meets the ASPEN Criteria of malnutrition based on: Energy Intake: Less than 75% of estimated energy requirement for greater than or equal to 1 month Interpretation of Weight Loss: 10% 6 months Body Fat: Moderate Loss (Visually assessed) Muscle Mass: Moderate Loss (Visually assessed) Fluid Accumulation: Unable to Assess This is in the context of Chronic Illness. Malnutrition Present Upon Admission: Yes Agree with Registered Dietitian's assessment and treatment plan: Interventions: Medical food supplement VTE: N/A due to therapeutic anti-coagulation Gi: Pantoprazole Lines PIV Code Status: Full Code Disposition: Home - self care Vanessa Brown P.A.-C. 07/25/24 I personally spent a total 50 minutes providing and coordinating care today. [employer] * Kiki Mckeon M.S., RDN, LD - 07/24/2024 2:58 PM CST Clinical Nutrition: Follow-up Clinical Nutrition continues to follow patient for assessment of nutritional status Completed visit with patient today as part of face to face care. SUBJECTIVE Mr. Jensen is a 78 y.o. male admitted for Atrial Fibrillation Unspecified (HCC) PMH per H&P: Mitral regurgitation s/p ARIAS ( 1 XTR Mitraclip at A2/P2 for P2 flail by Dr. Echevarria, 06/28/2019) ,Atrial fibrillation s/p ablation 2020 on Xarelto (anticoagulation currently held as discussed below), CLL on acalabrutinib, melanoma on Keytruda, prostate cancer, hypothyroidism, HTN, HLD, and GERD. Patient has known chronic lower extremity edema of his right leg (recent ultrasound negative). Nutrition Prior to Admission: Per recent RDN assessment on 07/02/24 Chad notes that in this last month eating has been poor relating to loss of his . He noted that he has lost some weight within this time as well. Noted pt's May last year d/t pneumonia. Pt's oral intakes at home are pretty consistent each day. He finds meal preparation is difficult. Eats 3 meals daily. Usually has a protein at meals but does not eat fruits/veggies. Drinks 2 protein/Boost drinks daily. Sausage with breakfast. Current Nutrition: Pt previously expressed great frustration with frequent NPO status and inabilityto order meals and certain points earlier in admission. Today he reports that eating is going well and he is receiving enough to eat. He wants to continue mixing ice cream in a protein drink/chocolate milkshake. Percentage of Meals Eaten for the past 72 hrs: Percent Meals Eaten (%) 07/24/24 1428 75 07/24/24 0900 100 07/23/24 2015 100 07/23/24 1400 100 07/22/24 1900 100 07/22/24 1034 100 07/21/24 1900 100 Food Allergies/Intolerances: None per chart review Nutrition Education: Primary team provided pt with the following handout: Managing Your Diet: Vitamin K and Warfarin ([id number]). During visit today RDN reviewed basic concepts of consistent Vit K intake with warfarin. OBJECTIVE Current nutrition orders: Dietary Orders (From admission, onward) Start Ordered 07/24/24 1458 Oral supplement -Supplement; [place] Breakfast Essential, Chocolate, Whole Milk; 8 fl oz; Take at: Breakfast, Lunch, Dinner (Oral Nutrition Supplement) Until discontinued Question Answer Comment Type: Supplement Supplement: [place] Breakfast Essential, Chocolate, Whole Milk Size: 8 fl oz Take at: Breakfast Take at: Lunch Take at: Dinner 07/24/24 1457 07/23/24 1122 Adult Diet Regular (Adult Diet) Diet effective now Question: Diet texture: Answer: Regular 07/23/24 1121 Pertinent Labs: Reviewed GI Function:Last BM Date: 07/24/24, [place] Stool Chart: Type 1: Separate hard lumps, like nuts (hard to pass), Integumentary/Wounds:Lloyd scale score 20 Lines/Drains/Airways Wound Duration Wound 07/20/24 Intertriginous Dermatitis Buttocks Bilateral 4 days Medications: Scheduled Meds:amiodarone, 200 mg, oral, Daily amLODIPine, 5 mg, oral, Daily ferrous sulfate, 65 mg of iron, oral, Every Other Day levothyroxine, 112 mcg, oral, Daily before morning meal lisinopriL, 15 mg, oral, BID magnesium chloride, 64 mg, oral, Daily before morning meal metoprolol tartrate, 50 mg, oral, BID pantoprazole, 40 mg, oral, Daily before morning meal posaconazole, 300 mg, oral, Daily sodium chloride, 3 mL, intravenous, Q12H SILVANO sodium chloride, 3 mL, intravenous, Q12H SILVANO tamsulosin, 0.4 mg, oral, Daily warfarin, 5 mg, oral, Once Continuous Infusions:heparin (porcine) 100 Units/mL in NaCl 0.45% 250 mL infusion, 1-30 Units/kg/hr(Dosing Weight), Last Rate: 16 Units/kg/hr (07/24/24 1336) PRN Meds:. acetaminophen ALPRAZolam bisacodyL bisacodyL D5W heparin (porcine) OR heparin (porcine) NaCl 0.9% bacteriostatic NaCl 0.9% NaCl 0.9% sodium chloride sodium chloride sodium chloride sodium chloride sodium chloride Anthropometrics: Height: 176 cm Admission Weight: 70.2 kg (07/19/2024) Current Weight: 68 kg BMI (Calculated): 22 kg/m?? Weight change since admission: -2.2 kg Net IO Since Admission: 5,333.68 mL [07/24/24 1458] Weight history: Wt Readings from Last 12 Encounters: 07/21/24 67.8 kg 06/30/24 70.5 kg 03/13/24 76 kg -- 10.8% weight loss in the past 4 months 01/13/24 77 kg 05/03/23 81 kg 02/23/23 80 kg 11/24/22 81.2 kg 10/13/22 80.4 kg 05/12/22 83.1 kg 04/02/22 83 kg 01/09/22 79.6 kg 08/06/21 81.6 kg ASSESSMENT / PLAN Nutrition Diagnosis: Malnutrition (undernutrition) related to chronic illness as evidenced by meeting malnutrition criteria per AND/ASPEN guidelines. Ongoing Malnutrition Assessment: ASPEN Criteria of Malnutrition: Nutritional Status: Non-severe (moderate) Malnutrition Malnutrition in the Context of: Chronic Illness Based on: Energy Intake: Less than 75% of estimated energy requirement for greater than or equal to 1 month Interpretation of Weight Loss: 10% 6 months Body Fat: Moderate Loss (Visually assessed) Muscle Mass: Moderate Loss (Visually assessed) Fluid Accumulation: Unable to Assess Estimated Needs: Total Calorie Needs: 9537-6470 calories/day Method to Estimate Energy Needs: kcal/kg (25-30 kcal/kg) Weight Used for Equation Calculations: 68.2 kg Total Protein Needs: 68 - 89 grams/day (Method to Estimate Protein Needs (g/kg): 1 - 1.3 gm/kg) Weight Used to Calculate Protein Needs (Kg): 68.2 kg Nutrition Intervention: Interventions: Medical food supplement Monitoring/Evaluation: Nutrition parameter to monitor: Diet Progression/NPO Status, Meals/Supplement Intake, Weight Status, Pertinent Labs, and Ascites/Edema Desired Outcome: Consume adequate nutrition orally No further weight loss Recommendations: No changes at this time; continue current nutrition orders Oral nutrition supplements with meals to bolster intakes and prevent further unintentional weight loss. Clinical Nutrition will continue to follow. For questions about patient's nutritional care please contact pager [phone] on weekdays 07:30-16:00 or [phone] on weekends/holidays ([facility]) [phone]. [employer] * Alexsandra Joy, Pharm.D., R.Ph. - 07/24/2024 12:55 PM CST Pharmacist Progress Note Warfarin Warfarin Indication: Atrial fibrillation (AF) Target INR: 2 - 3 Warfarin Administrations (last 168 hours) Date/Time Action Medication Dose 07/23/24 1629 Given warfarin tablet 4 mg (Jantoven) 4 mg 07/22/24 1654 Given warfarin tablet 3 mg (Jantoven) 3 mg 07/21/24 1703 Given warfarin tablet 2 mg (Jantoven) 2 mg 07/20/24 1727 Given warfarin tablet 2 mg (Jantoven) 2 mg INR (no units) Date Value Status 07/24/2024 1.1 Final 07/23/2024 1.1 Final 07/22/2024 1.1 Final 07/21/2024 1.0 Final 07/20/2024 1.2 Final 07/19/2024 1.1 Final ASSESSMENT / PLAN Afib with RVR. Note rivaroxaban had been on hold for hemoptysis. Initiating warfarin given DOAC/posaconazole interaction. Goal INR 2-3.0. Baseline was INR 1.1. Bridging with heparin infusion. Drug interactions with amiodarone and posaconazole necessitated empiric warfarin dose reduction. INR remains unchanged after 4 doses at 1.1. Warfarin 5 mg ordered for today. Alexsandra Joy, Pharm.D., R.Ph. [employer] * Jun Shipley M.D. - 07/24/2024 9:52 AM CST The patient is resting comfortably in bed. He is not having pain or dyspnea. He feels better now that he is in sinus rhythm after his cardioversion yesterday. We will now be awaiting for therapeutic INR in order to discontinue the heparin and allowed for dismissal from the hospital. His amiodarone level was slightly low so we will increase his dose to 200 mg daily. The patient expresses an understanding and agreement with this plan. [employer] * Vanessa Brown P.A.-C. - 07/24/2024 7:24 AM CST CARDIOLOGY INPATIENT PROGRESS NOTE SUBJECTIVE Mr. Jensen was seen and examined on morning rounds. Feeling much improved in sinus rhythm. Energy level was better. Eager to have therapeutic INR and discharge hospital. OBJECTIVE TELEMETRY I reviewed the telemetry and alarms: Normal sinus rhythm, rates in the 60s INTAKE/OUTPUT Past 24 hours: Intake/Output Summary (Last 24 hours) at 07/24/2024 0724 Last data filed at 07/24/2024 0711 Gross per 24 hour Intake 1425.18 ml Output 550 ml Net 875.18 ml Net Hospitalization: +4.2 L Admission Weight: 70.2 kg Today's weight: 68 kg Weight change since admit: Weight change: 0.6 kg Body mass index is 21.95 kg/m??. VITAL SIGNS I have reviewed the vital signs for the past 24 hours. Temperature: [36.5 ??C-36.9 ??C] 36.6 ??C Heart Rate: [60-118] 64 Resp Rate: [11-26] 12 Blood Pressure: (89-150)/(55-102) 150/72 SpO2: [90 %-99 %] 96 % Flow Rate (L/min): [0 L/min-2 L/min] 1 L/min Weight: [68 kg] 68 kg BMI (Calculated): [22 kg/m??] 22 kg/m?? Pulse Rate: [59-122] 63 PHYSICAL EXAMINATION General: Alert and oriented, resting comfortably in chair Cardiovascular: Regular rate and rhythm, no JVP, mild chronic right ankle edema Lungs: Normal work of breathing, on room air, intermittent cough Abdomen: Soft, nondistended, nontender Extremities: No cyanosis, warm to the touch and well perfused Mental/Psych: Pleasant, answers questions appropriately DIAGNOSTICS Fracisco guided cardioversion today LABS 07/24/24 CBC hemoglobin 9.7, hematocrit 30.5, platelets 281, leukocytes 27.6 (from 23/12 0.8) INR 1.1 Amiodarone level low at 0.4 BMP sodium 138, potassium 4.2, creatinine 0.98 Hepatic function panel bilirubin 0.4, ALT 14, AST 32, alk phos 81 ASSESSMENT / PLAN #1 Recurrent paroxysmal atrial fibrillation with rapid ventricular response, anticoagulation currently on hold due to #2 (CHADS2 VASc score 4) s/p ablation (2020) - S/p successful FRACISCO/DCCV 07/23/24 #2 Hemorrhagic secretions within the larynx, mainstem bronchi, and trachea (Bronchoscopy 07/02/2024) #3 Severe mitral regurgitation s/p ARIAS ( 1 XTR Mitraclip at A2/P2 for P2 flail by Dr. 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 Jensen is a 78 y.o. male who is admitted to hospital on 07/19/24 for symptomatic PAF with RVR. Patient had recently been hospitalized on pulmonology from 06/30 to 07/07 for multifocal pneumonia. During this hospitalization, he was diagnosed with Aspergillus pneumonia and anticoagulation with rivaroxaban was held due to hemorrhagic secretion. Placed on posaconazole. Regarding atrial fibrillation, he is symptomatic with fatigue and palpitations. While on posaconazole he is not a candidate for DOAC and subsequently rivaroxaban was replaced with Coumadin along withheparin bridging. He underwent FRACISCO guided cardioversion with successful attainment of sinus rhythm.He remains on IV heparin until INR is therapeutic. Metoprolol on board for rate control. Amiodarone level resulted at 0.4 and will subsequently increase amiodarone. There is a significant interaction with the posaconazole inhibiting the clearance of the amiodaronerisking QTc prolongation, however he is on a low-dose of amiodarone. Reasonable to monitor QTc and electrolytes at this time. PLAN: Paroxysmal Atrial Fibrillation Coumadin started, bridging with IV heparin, INR goal 2-3 Drug interactions with amiodarone and posaconazole necessitate empiric Coumadin dose reduction Increase amiodarone 200 mg Given concomitant posaconazole closely monitor for QTc prolongation Recheck amiodarone level 1 week (07/31/2024) Continue metoprolol tartrate 37.5 mg b.i.d. CV follow up in the [facility] clinic with Marilu Calero on 08/29/2024, discuss repeat ablation Recent hemorrhagic secretions of respiratory tract - Pulmonary Medicine consulted [place] to restart anticoagulation, monitor for any signs of bleeding or hemoptysis Hemoglobin stable today at 11.0 (10.7 yesterday) Severe mitral regurgitation with small bilateral pleural effusions Medical management Continue lisinopril 15 mg daily Ongoing volume assessment Outpatient follow up with Dr. Thakkar in March 2025 Continue posaconazole 300 mg daily for Aspergillus pneumonia ID follow up on 08/13/2024 Introduced patient to cost plus drugs ($180/month) as well as goodRx to ensure affordability History of CLL and Melanoma Will e-mail his oncologist, Dr. Hurtado, once ready for discharge to arrange appropriate fu Continue to follow oxygen needs (previous baseline 1 L nocturnal) Consulted case management to assist with reconnect Consider repeat oxygen studies in the outpatient setting Continue other medications at this time, including amlodipine, tamsulosin, levothyroxine, Xanax p.r.n., magnesium supplementation, and pantoprazole (interchanged with Prilosec) Hold atorvastatin due to interaction with posaconazole Addendum 1652 I evaluated patient given nursing report of swelling in left arm. Does have some swelling in the forearm near the IV site but this is relatively minimal and there is s no significant discomfort. Neurovascularly intact. Will monitor for now. Patient also reported having visual changes with seeing his right visual field sitting above his left visual field. States he has intermittently had these episodes before but they are quite rare. Apparently he has spoken to his family member who is retired therapeutic strategy lead thought they might be ocular migraine. On my exam I do not appreciate any ocular abnormalities or neurological deficits. Does have completely resolved. Encouraged patient to follow withophthalmology in the outpatient setting if these occur more frequently Non-severe (moderate) Malnutrition The patient meets the ASPEN Criteria of malnutrition based on: Energy Intake: Less than 75% of estimated energy requirement for greater than or equal to 1 month Interpretation of Weight Loss: 10% 6 months Body Fat: Moderate Loss (Visually assessed) Muscle Mass: Moderate Loss (Visually assessed) Fluid Accumulation: Unable to Assess This is in the context of Chronic Illness. Malnutrition Present Upon Admission: Yes Agree with Registered Dietitian's assessment and treatment plan: Interventions: Medical food supplement VTE: N/A due to therapeutic anti-coagulation Gi: Pantoprazole Lines PIV Code Status: Full Code Disposition: Home - self care Vanessa Brown P.A.-C. 07/24/24 I personally spent a total 50 minutes providing and coordinating care today. [employer] * Vanessa Brown P.A.-C. - 07/23/2024 9:13 AM CST CARDIOLOGY INPATIENT PROGRESS NOTE SUBJECTIVE Mr. Jensen was seen and examined on morning rounds. He was staffed post cardioversion. Feeling extremely well back in sinus rhythm. We discussed Coumadin in his goal of 2-3 for INR. We also reviewed dietary habits to adhere to Coumadin OBJECTIVE TELEMETRY I reviewed the telemetry and alarms: Atrial fibrillation, rates in the 100s INTAKE/OUTPUT Past 24 hours: Intake/Output Summary (Last 24 hours) at 07/23/2024 0998 Last data filed at 07/23/2024 0760 Gross per 24 hour Intake 2369 ml Output 1050 ml Net 1319 ml Net Hospitalization: +3.5 L Admission Weight: 70.2 kg Today's weight: 67.4 kg Weight change since admit: Weight change: -0.5 kg Body mass index is 21.76 kg/m??. VITAL SIGNS I have reviewed the vital signs for the past 24 hours. Temperature: [36.3 ??C-36.8 ??C] 36.6 ??C Heart Rate: [90-147] 112 Resp Rate: [15-37] 26 Blood Pressure: (104-146)/(76-122) 126/88 SpO2: [93 %-98 %] 97 % Flow Rate (L/min): [2 L/min] 2 L/min Weight: [67.4 kg] 67.4 kg BMI (Calculated): [21.8 kg/m??] 21.8 kg/m?? Pulse Rate: [86-126] 117 PHYSICAL EXAMINATION General: Alert and oriented, resting comfortably in chair Cardiovascular: Regular rate and rhythm, no JVP, mild chronic right ankle edema Lungs: Normal work of breathing, on room air, intermittent cough Abdomen: Soft, nondistended, nontender Extremities: No cyanosis, warm to the touch and well perfused Mental/Psych: Pleasant, answers questions appropriately DIAGNOSTICS Fracisco guided cardioversion today LABS 07/23/24 CBC hemoglobin 10.2, hematocrit 32, platelets 280, leukocytes 27.8 (from 23/02) INR 1.1 Magnesium 1.9 Amiodarone level pending ASSESSMENT / PLAN #1 Recurrent paroxysmal atrial fibrillation with rapid ventricular response, anticoagulation currently on hold due to #2 (CHADS2 VASc score 4) s/p ablation (2020) - S/p successful FRACISCO/DCCV 07/23/24 #2 Hemorrhagic secretions within the larynx, mainstem bronchi, and trachea (Bronchoscopy 07/02/2024) #3 Severe mitral regurgitation s/p ARIAS ( 1 XTR Mitraclip at A2/P2 for P2 flail by Dr. 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 Jensen is a 78 y.o. male who is admitted to hospital on 07/19/24 for symptomatic PAF with RVR. Patient had recently been hospitalized on pulmonology from 06/30 to 07/07 for multifocal pneumonia. During this hospitalization, he was diagnosed with Aspergillus pneumonia and anticoagulation with rivaroxaban was held due to hemorrhagic secretion. Regarding atrial fibrillation, he is symptomatic with fatigue and palpitations. Given he has been off rivaroxaban and furthermore currently not a candidate for DOAC due to concomitant interactions with posaconazole fracisco cardioversion has been delayed until today. Coumadin has been initiated with IV heparin bridging. He remains on metoprolol tartrate 37.5 mg b.i.d. for rate control. Amiodarone 100 mg is on board for rhythm control. Amiodarone level has been collected and pending. PLAN: Paroxysmal Atrial Fibrillation Coumadin started, bridging with IV heparin, INR goal 2-3 Drug interactions with amiodarone and posaconazole necessitated empiric warfarin dose reduction FRACISCO-DCCV today Consider increase in amiodarone pending rate if sinus rhythm restored and amiodarone lower Rate and rhythm control Continue metoprolol tartrate 37.5 mg twice daily Continue amiodarone 100 mg daily Plan to obtain amiodarone level; consider careful up titration with antifungal use CV follow up in the [facility] clinic with Marilu Calero on 08/29/2024 Recent hemorrhagic secretions of respiratory tract - Pulmonary Medicine consulted [place] to restart anticoagulation, monitor for any signs of bleeding or hemoptysis Hemoglobin stable today at 11.0 (10.7 yesterday) Severe mitral regurgitation with small bilateral pleural effusions Medical management Continue lisinopril 15 mg daily Ongoing volume assessment Outpatient follow up with Dr. Thakkar in March 2025 Continue posaconazole 300 mg daily for Aspergillus pneumonia ID follow up on 08/13/2024 Introduced patient to cost plus drugs ($180/month) as well as goodRx to ensure affordability History of CLL and Melanoma Will e-mail his oncologist, Dr. Hurtado, once ready for discharge to arrange appropriate fu Continue to follow oxygen needs (previous baseline 1 L nocturnal) Consulted case management to assist with reconnect Consider repeat oxygen studies in the outpatient setting Continue other medications at this time, including amlodipine, tamsulosin, levothyroxine, Xanax p.r.n., magnesium supplementation, and pantoprazole (interchanged with Prilosec) Hold atorvastatin due to interaction with posaconazole Non-severe (moderate) Malnutrition The patient meets the ASPEN Criteria of malnutrition based on: Energy Intake: Less than 75% of estimated energy requirement for greater than or equal to 1 month Interpretation of Weight Loss: 10% 6 months Body Fat: Moderate Loss (Visually assessed) Muscle Mass: Moderate Loss (Visually assessed) Fluid Accumulation: Unable to Assess This is in the context of Chronic Illness. Malnutrition Present Upon Admission: Yes Agree with Registered Dietitian's assessment and treatment plan: Interventions: Medical food supplement VTE: N/A due to therapeutic anti-coagulation Gi: Pantoprazole Lines PIV Code Status: Full Code Disposition: Home - self care Vanessa Brown P.A.-C. 07/23/24 I personally spent a total 50 minutes providing and coordinating care today. [employer] * Alexsandra Joy, PharmBuddyD., R.Ph. - 07/23/2024 8:05 AM CST Pharmacist Progress Note Reason for admission: paroxysmal Afib with RVR PMH: Mitral regurgitation s/p ARIAS, Afib s/p ablation 2020, CLL on acalabrutinib, melanoma on Keytruda, prostate cancer, hypothyroidism, HTN, HLD, GERD, recent multifocal pneumonia w/ aspergillus infection. OBJECTIVE Neuro: Alprazolam 0.125 q12h prn. CV: Afib - metoprolol 50 bid, amiodarone 100 mg, IV heparin, warfarin. HTN - amlodipine 5 qd, lisinopril 15 bid. ID: Pulm aspergillosis - posaconazole 300 qd. Neph: Estimated Creatinine Clearance: 57.5 mL/min (by C-G formula based on SCr of 1.01 mg/dL). BL SCr 0.9. Mag qd. Endo: Hypothyroidism - LTX 112 qdac. Urol: tamsulosin. Heme: iron qod GI: GERD - pantoprazole 40 qd. PPX: none Medication Reconciliation: Held: amiodarone, atorvastatin (posaconazole intxn), rivaroxaban Changed: omep -> pantoprazole, increased metoprolol New: none Warfarin Warfarin Indication: Atrial fibrillation (AF) Target INR: 2 - 3 Warfarin Administrations (last 168 hours) Date/Time Action Medication Dose 07/22/24 1654 Given warfarin tablet 3 mg (Juntoven) 3 mg 07/21/24 1703 Given warfarin tablet 2 mg (Jantoven) 2 mg 07/20/24 1727 Given warfarin tablet 2 mg (Juntoven) 2 mg INR (no units) Date Value Status 07/22/2024 1.1 Final 07/21/2024 1.0 Final 07/20/2024 1.2 Final 07/19/2024 1.1 Final ASSESSMENT / PLAN Afib with RVR Metoprolol uptitrated for rate control. Planning FRACISCO guided DCCV today. Note rivaroxaban had been on hold for hemoptysis. Initiating warfarin given DOAC/posaconazole interaction. Goal INR 2-3.0. Baseline INR 1.1. Bridging with heparin infusion. Drug interactions with amiodarone and posaconazole necessitated empiric warfarin dose reduction. INR remains 1.1 today. Warfarin 4 mg will be ordered for today. Plan to continue to be bridged with IV heparin until INR is therapeutic. Consider utilization of LMWH if patient is ready to discharge prior to INR being therapeutic. Pulm aspergillosis; continued on posaconazole. Raised the question of whether an alternative antifungal could be used such as isavuconazole (possible trial eligibility?) given his significant cost for posaconazole and could utilize DOAC with isavuconazole. Service curbsided ID, they would like to continue posaconazole. Note at [facility] Posaconazole is $180/30 days supply. CLL/melanoma; acalabrutinib and Keytruda on hold 2/2 infection. Alexsandra Joy Pharm.D., R.Ph. [employer] * Aurelio Guerra Pharm.D., R.Ph., [facility] - 07/22/2024 11:33 AM CST Pharmacist Progress Note Warfarin Warfarin Indication: Atrial fibrillation (AF) Target INR: 2 - 3 Warfarin Administrations (last 168 hours) Date/Time Action Medication Dose 07/21/24 170 Given warfarin tablet 2 mg (Jantoven) 2 mg 07/20/24 1727 Given warfarin tablet 2 mg (Jantoven) 2 mg INR (no units) Date Value Status 07/22/2024 1.1 Final 07/21/2024 1.0 Final 07/20/2024 1.2 Final 07/19/2024 1.1 Final ASSESSMENT / PLAN Afib with RVR. Note rivaroxaban had been on hold for hemoptysis. Initiating warfarin given DOAC/posaconazole interaction. Goal INR 2-3.0. Baseline INR 1.1. Bridging with heparin infusion. Drug interactions with amiodarone and posaconazole necessitated empiric warfarin dose reduction. Warfarin 3 mg ordered for today. CECILIO Guerra Pharm.D., R.Ph., [facility] [employer] * Jun Shipley M.D. - 07/22/2024 10:49 AM CST The patient is sitting up but this had the bed. He is not having pain or dyspnea. His heart rate is about 120 although he has not received his morning medications yet. The plan is for FRACISCO guided cardioversion tomorrow. We will need to keep in the hospital until his INR is therapeutic. The patient expresses understanding given this plan. [employer] * Yudith Valdez M.S., RDN, LD - 07/21/2024 2:08 PM CST Clinical Nutrition: Reassessment Clinical Nutrition continues to follow patient for assessment of nutritional status Completed visit with patient today as part of face to face care. SUBJECTIVE Mr. Jensen is a 78 y.o. male admitted for Atrial Fibrillation Unspecified (HCC) PMH per H&P: Mitral regurgitation s/p ARIAS ( 1 XTR Mitraclip at A2/P2 for P2 flail by Dr. Echevarria, 06/28/2019) ,Atrial fibrillation s/p ablation 2020 on Xarelto (anticoagulation currently held as discussed below), CLL on acalabrutinib, melanoma on Keytruda, prostate cancer, hypothyroidism, HTN, HLD, and GERD. Patient has known chronic lower extremity edema of his right leg (recent ultrasound negative). Nutrition Prior to Admission: Per recent RDN assessment on 07/02/24 Chad notes that in this last month eating has been poor relating to loss of his . He noted that he has lost some weight within this time as well. Noted pt's May last year d/t pneumonia. During visit today, patient denied having trouble eating enough and expressed great frustration with being frequently NPO while in the hospital and frequent hospital stays. He also expressed getting to the floor late and then being unable to order meals. He said that he eats very well when he is allowed to. Current Nutrition: Good meal intakes documented, and it does appear that yesterday he was able to consume over 2000 kcal, 90 g protein with only 2 meals. Patient requested to receive Ensure and some ice cream to mix it with to help prevent him from losing more weight; this was ordered TID per his request. Percentage of Meals Eaten for the past 72 hrs: Percent Meals Eaten (%) 07/21/24 1044 100 07/20/24 1936 100 07/20/24 1436 100 Food Allergies/Intolerances: None per chart review OBJECTIVE Current nutrition orders: Dietary Orders (From admission, onward) Start Ordered 07/23/24 0000 No oral or enteral nutrition Diet effective midnight 07/20/24202307/21/24 1408 Oral supplement -Supplement; Ensure (chocolate); 1 each; Take at: Breakfast, Lunch, Dinner (Oral Nutrition Supplement) Until discontinued Question Answer Comment Type: Supplement Supplement: Ensure (chocolate) Size: 1 each Take at: Breakfast Take at: Lunch Take at: Dinner 07/21/24 1408 07/20/24 1230 Adult Diet Regular; 2,000 mg Na (Adult Diet) Diet effective now Question Answer Comment Diet texture: Regular Sodium: 2,000 mg Na 07/20/24 1229 Pertinent Labs: Reviewed GI Function:Last BM Date: 07/21/24, [place] Stool Chart: Type 1: Separate hard lumps, like nuts (hard to pass), Edema: +2 to right lower extremity 07/21 Integumentary/Wounds: Lines/Drains/Airways Wound Duration Wound 07/20/24 Intertriginous Dermatitis Buttocks Bilateral 1 day Medications: Reviewed; include ferrous sulfate, lasix, levothyroxine, mag-delay, Protonix, posaconazole, warfarin Anthropometrics: Height: 176 cm Admission Weight: 70.2 kg (07/19/2024) Current Weight: 67.8 kg BMI (Calculated): 21.9 kg/m?? Weight change since admission: -2.4 kg Net IO Since Admission: 1,208.1 mL [07/21/24 1408] Weight history: Wt Readings from Last 12 Encounters: 07/21/24 67.8 kg 06/30/24 70.5 kg 03/13/24 76 kg -- 10.8% weight loss in the past 4 months 01/13/24 77 kg 05/03/23 81 kg 02/23/23 80 kg 11/24/22 81.2 kg 10/13/22 80.4 kg 05/12/22 83.1 kg 04/02/22 83 kg 01/09/22 79.6 kg 08/06/21 81.6 kg ASSESSMENT / PLAN Nutrition Diagnosis: Malnutrition (undernutrition) related to chronic illness as evidenced by meeting malnutrition criteria per AND/ASPEN guidelines. Initiated Malnutrition Assessment: ASPEN Criteria of Malnutrition: Nutritional Status: Non-severe (moderate) Malnutrition Malnutrition in the Context of: Chronic Illness Based on: Energy Intake: Less than 75% of estimated energy requirement for greater than or equal to 1 month Interpretation of Weight Loss: 10% 6 months Body Fat: Moderate Loss (Visually assessed) Muscle Mass: Moderate Loss (Visually assessed) Fluid Accumulation: Unable to Assess Estimated Needs: Total Calorie Needs: 2845-2221 calories/day Method to Estimate Energy Needs: kcal/kg (25-30 kcal/kg) Weight Used for Equation Calculations: 68.2 kg Total Protein Needs: 68 - 89 grams/day (Method to Estimate Protein Needs (g/kg): 1 - 1.3 gm/kg) Weight Used to Calculate Protein Needs (Kg): 68.2 kg Nutrition Intervention: Interventions: Medical food supplement Monitoring/Evaluation: Nutrition parameter to monitor: Diet Progression/NPO Status, Meals/Supplement Intake, Weight Status, Pertinent Labs, and Ascites/Edema Desired Outcome: Consume adequate nutrition orally No further weight loss Recommendations: No changes at this time; continue current nutrition orders Oral nutrition supplements as needed to bolster intakes and prevent further unintentional weight loss. Clinical Nutrition will continue to follow. For questions about patient's nutritional care please contact pager [phone] on weekdays 07:30-16:00 or [phone] on weekends/holidays ([facility]) [phone]. [employer] * Jun Shipley M.D. - 07/21/2024 10:54 AM CST The patient is sitting up in the chair at the bedside. He is not having pain or dyspnea. He is somewhat discouraged by having to wait until Tuesday for his cardioversion but is not having severe cardiac symptoms. Jugular venous pressure is normal The monitor shows atrial fibrillation with heart rates of 97-118. He will remain on intravenous heparin with warfarin loading with plans for a FRACISCO guided cardioversion on Tuesday. Long-term, I think would be reasonable to increase his dose of amiodarone to 200 mg daily but we will probably need to wait to do that until he is done with his antifungal therapy. Non-severe (moderate) Malnutrition The patient meets the ASPEN Criteria of malnutrition based on: Energy Intake: Less than 75% of estimated energy requirement for greater than or equal to 1 month Interpretation of Weight Loss: 10% 6 months Body Fat: Moderate Loss (Visually assessed) Muscle Mass: Moderate Loss (Visually assessed) Fluid Accumulation: Unable to Assess This is in the context of Chronic Illness. 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 OBJECTIVE Neuro: Alprazolam 0.125 q12h prn. CV: Afib - metoprolol 37.5 bid, amiodarone 100 mg, IV heparin, warfarin. HTN - amlodipine 5 qd, lisinopril 15 bid. ID: Pulm aspergillosis - posaconazole 300 qd. Neph: Estimated Creatinine Clearance: 54.1 mL/min (by C-G formula based on SCr of 1.08 mg/dL). BL SCr 0.9. Mag qd. Endo: Hypothyroidism - LTX 112 qdac. Urol: tamsulosin. Heme: iron qod GI: GERD - pantoprazole 40 qd. PPX: none Medication Reconciliation: Held: amiodarone, atorvastatin (posaconazole intxn), rivaroxaban Changed: omep -> pantoprazole New: none Warfarin Warfarin Indication: Atrial fibrillation (AF) Target INR: 2 - 3 Warfarin Administrations (last 168 hours) Date/Time Action Medication Dose 07/20/241726 Given warfarin tablet 2 mg () 2 mg INR (no units) Date Value Status 07/21/2024 1.0 Final 07/20/2024 1.2 Final 07/19/2024 1.1 Final ASSESSMENT / PLAN Afib with RVR Metoprolol for rate control. Planning FRACISCO guided DCCV Note rivaroxaban had been on hold for hemoptysis. Initiating warfarin given DOAC/posaconazole interaction. Goal INR 2-3.0. Baseline INR 1.1. Bridging with heparin infusion. Drug interactions with amiodarone and posaconazole necessitate empiric warfarin dose reduction. Warfarin 2 mg ordered again for today. Pulm aspergillosis; continued on posaconazole. Raised the question of whether an alternative antifungal could be used such as isavuconazole (possible trial eligibility?) given his significant cost for posaconazole and could utilize DOAC with isavuconazole. Service curbsided ID, they would like to continue posaconazole. Note at [facility] Posaconazole is $180/30 days supply. CLL/melanoma; acalabrutinib and Keytruda on hold 2/ infection. CECILIO Guerra, Pharm.D., R.Ph., [facility] [employer] * Lili Palma R.N., C.W.C.N. - 07/20/2024 11:09 AM CST [facility] Wound RN consulted to assess Chad Jensen skin alterations. Wound assessment, pain, and Lloyd score noted in the flowsheet. The patient consented to photography of the affected area for clinical trending purposes. Images were taken and are available in QREADS. History: Per provider note, Mr. Jensen is a 78-year-old gentleman with comorbidities including but not limited to the following: Mitral regurgitation s/p ARIAS ( 1 XTR Mitraclip at A2/P2 for P2 flail by Dr. Echevarria, 06/28/2019) ,Atrial fibrillation s/p ablation 2020 on Xarelto, CLL on acalabrutinib, paolo anoma on Keytruda, prostate cancer, hypothyroidism, HTN, HLD, and GERD Assessment: Patient was agreeable to [facility] benzol operator of buttocks/coccyx, he was able to independently reposition himself in bed. On assessment his skin is intact, pink and red erythema; most likelyrelated to prolong exposure to moisture. Patient agreeable to treatment plan noted below. 07/20/24 0850 Wound 07/20/24 Intertriginous Dermatitis Buttocks Bilateral Date First Assessed/Time First Assessed: 07/20/24 0850 Present on Original Admission: Yes Wound Approximate Age at First Assessment: Unknown Primary Wound Type: Intertriginous Dermatitis Location: Buttocks Wound Location Orientation: Bilateral Pain Score 0 - none *Signs of Infection None Unable to Measure Y *Wound Bed Closed;[place];Red (Blanchable) Tissue Exposed None Odor None *Exudate Amount None Harriet-wound Assessment Intact Treatments Cleansed Periwound Treatment Cleansed (Comment) Wound Cleansed with Tap water *Primary Dressing Liquid skin protectant *Primary Dressing Frequency of Change 2x/day & PRN *Secondary Dressing Foam *Secondary Dressing Frequency of Change Daily & PRN Secondary Dressing Changed New Changed by Wound physical therapy asst Complications none Ongoing management Nursing Documentation done by [facility] RN? Yes Focused assessment completed as patient declined further assessment and no other concerns reported. DRESSING RECOMMENDATIONS: #1 Mild Intertriginous Dermatitis Buttocks Bilateral -Cleanse the area with foam cleanser and dampened WypAlls. Pat dry. -Apply SurePrep wand or spray and allow to dry completely. Reapply BID and PRN. -Apply a sacral Mepilex?? border dressing to cover the gluteal cleft/coccyx/sacral area. -Ensure the dressing is in full contact with the skin to prevent moisture- related skin breakdown. -Lift dressing BID to assess the skin when used for prevention. Change once daily and PRN. Recommended interventions for pressure redistribution and shear reduction: Offload heels on pillows at all times when in bed. Full 30 degree turns side to side every 2 hours with supine positioning only for meals. Reposition at least every hour while in the chair. Keep the HOB below 30 degrees except for meals unless medically contraindicated. Apply a prophylactic sacral Mepilex?? border dressing to cover the coccyx/sacral area. Ensure the dressing is in full contact with the skin to prevent moisture- related skin breakdown. Lift twice daily to assess when used for prevention. Change every 3 days and PRN. Utilize the IsoFlex mattress with low air loss pump. Utilize an Equagel cushion when in the chair. Recommended interventions for moisture control: InterDry?? Ag placed between folds. Allow at least 2 inches of fabric exposed to air on at least one side of the skin fold for moisture evaporation. Can be used up to 5 days unless soiled with stool or urine. Do not rinse with water. Utilize the breathable incontinence underpads while in bed. Adult briefs should only be worn while ambulating or in the chair. Cleanse with foaming cleanser or wipes after each incontinence episode and for routine hygiene cares. Utilize the Low Air Loss (BRENDA) function of the IsoFlex BRENDA?? Mattress. Apply liquid skin protectant as directed. Consult recommendations: NA Education: Discussed the plan of care with the patient and nursing. They agree to the plan. The WOC RN will sign-off. Please place a wound care consult for any new concerns. Electronically signed by: Lili Palma R.N., Nikki.[email or web address].N. 07/20/24 11:15 AM DIE [employer] MA[employer] * Nahun Hilton, Pharm.D., R.Ph. - 07/20/2024 8:33 AM CST Pharmacist Progress Note Reason for admission: paroxysmal Afib with RVR PMH: Mitral regurgitation s/p ARIAS, Afib s/p ablation 2020, CLL on acalabrutinib, melanoma on Keytruda, prostate cancer, hypothyroidism, HTN, HLD, GERD, recent multifocal pneumonia w/ aspergillus infection. Medical History[1] OBJECTIVE Neuro: Alprazolam 0.125 q12h prn. CV: Afib - metoprolol 37.5 bid. HTN - amlodipine 5 qd, lisinopril 15 bid. ID: Pulm aspergillosis - posaconazole 300 qd. Neph: Estimated Creatinine Clearance: 64.7 mL/min (by C-G formula based on SCr of 0.93 mg/dL). BL SCr 0.9. Mag qd. Endo: Hypothyroidism - LTX 112 qdac. Urol: tamsulosin. Heme: iron qod GI: GERD - pantoprazole 40 qd. PPX: none Medication Reconciliation: Held: amiodarone, atorvastatin (posaconazole intxn), rivaroxaban Changed: omep -> pantoprazole New: none Warfarin Warfarin Indication: Atrial fibrillation (AF) Target INR: 2 - 3 Warfarin Administrations (last 168 hours) None INR (no units) Date Value Status 07/19/2024 1.1 Final ASSESSMENT / PLAN Afib with RVR Metoprolol for rate control Planning FRACISCO guided DCCV Note rivaroxaban had been on hold for hemoptysis. Initiating warfarin given DOAC/posaconazole interaction. Goal INR 2-3.0. Baseline INR 1.1. Bridging with heparin infusion. Drug interactions with amiodarone and posaconazole necessitate empiric warfarin dose reduction. Warfarin 2 mg ordered for today. Pulm aspergillosis; continued on posaconazole. Raised the question of whether an alternative antifungal could be used such as isavuconazole (possible trial eligibility?) given his significant cost for posaconazole and could utilize DOAC with isavuconazole. Service curbsided ID, they would like to continue posaconazole. Note at [facility] Posaconazole is $180/30 days supply. CLL/melanoma; acalabrutinib and Keytruda on hold 07/08 infection. Nahun Hilton PharmLina., R.Ph. [1] Past Medical History: Diagnosis Date Anxiety Generalized Disorder 09/16/2008 Atrial Fibrillation Unspecified (HCC) 02/2020 Benign Prostatic Hyperplasia Without Obstruction 06/28/2019 Cataract 1999 Gastroesophageal Reflux Disease NOS 2016 Hypertension Essential Primary 09/16/2008 Hypothyroidism Leukemia 2019 Malignant Neoplasm Of Skin Squamous Cell Carcinoma Melanoma Skin (HCC) 2012 Melanoma Trunk (HCC) 11/22/2011 S/p excision Personal History Of Malignant Neoplasm Of Prostate 06/28/2019 2005 s/p radioactive seeds Primary Malignant Neoplasm Of Prostate (HCC) 2004 Regurgitation Mitral 06/26/2019 W/ a flail segment of the lateral aspect of P2 with associated severe MR. 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 - 07/20/2024 7:18 AM CST [facility] 4 CARDIOLOGY INPATIENT PROGRESS NOTE SUBJECTIVE Mr. Jensen was seen and examined on morning rounds. Overnight, there were no acute events. Today, he reports feeling fatigued doing simple tasks, such as brushing his teeth. He denies any palpitations at this time. All questions were answered to the best of my ability. OBJECTIVE TELEMETRY Atrial fibrillation with heart rates between 90-120 bpm. Occasional PVCs. No other alarms. INTAKE/OUTPUT Past 24 hours: Intake/Output Summary (Last 24 hours) at 07/20/2024 0718 Last data filed at 07/19/2024 1606 Gross per 24 hour Intake 1010 ml Output -- Net 1010 ml Net Hospitalization: +1 L Admission Weight: 70.2 kg Today's weight: 69.9 kg Weight change since admit: -0.3 kg Body mass index is 22.57 kg/m??. VITAL SIGNS Temperature: [36.4 ??C-36.5 ??C] 36.5 ??C Heart Rate: [95-131] 117 Resp Rate: [13-29] 24 Blood Pressure: (114-155)/(78-111) 133/82 SpO2: [86 %-97 %] 92 % Flow Rate (L/min): [1 L/min-2 L/min] 2 L/min Height: [176 cm] 176 cm Weight: [69.9 kg-70.2 kg] 69.9 kg BSA (Calculated - sq m): [1.85 sq meters] 1.85 sq meters BMI (Calculated): [22.6 kg/m??] 22.6 kg/m?? Pulse Rate: [69-136] 102 PHYSICAL EXAMINATION General: Lying in bed, comfortable. Cooperative. Patient appears as stated age. Heart: Irregularly irregular rhythm. Soft systolic murmur. Positive peripheral pulses. Lungs: Lung sounds mildly decreased at bilateral bases with small crackles. Breathing comfortably on room air. No cough. Abdomen: Soft, non-distended, non-tender to palpation throughout. Positive bowel sounds. Extremities: Peripheral extremity edema: Right lower extremity edema in pretibial region (chronic),no left lower extremity edema. Warm, dry. DIAGNOSTICS I personally reviewed all radiology and labs from the past 24 hrs. Labs Hgb 11.0 WBC 32.3 Na 136 K 4.3 Mg 1.9 Cr 0.96 BUN 19 ASSESSMENT / PLAN #1 Recurrent paroxysmal atrial fibrillation with rapid ventricular response, anticoagulation currently on hold due to #2 (CHADS2 VASc score 4) s/p ablation (2020) #2 Hemorrhagic secretions within the larynx, mainstem bronchi, and trachea (Bronchoscopy 07/02/2024) #3 Severe mitral regurgitation s/p ARIAS ( 1 XTR Mitraclip at A2/P2 for P2 flail by Dr. 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 Jensen is a 78 y.o. male who was admitted on 07/19/2024 for symptomatic paroxysmal atrial fibrillation. Briefly, he was recently hospitalized on pulmonology from 06/30/2024 to 07/07/2024 for multifocal pneumonia. During this hospitalization, he was diagnosed and treated for Aspergillus pneumonia and anticoagulation with Xarelto was held due to hemorrhagic secretions within the respiratory tract. He re-presented to the emergency department on July 19 10/26/2019 palpitations and was found wilfred in atrial fibrillation with RVR. CTA imaging revealed small bilateral pleural effusions with no evidence of PE. He was admitted to the Cardiology 4 service for further management. Regarding his symptomatic (fatigue, palpitations) atrial fibrillation with RVR, cardioversion is recommended to revert Mr. Jensen back to normal sinus rhythm. However, anticoagulation needs to be restarted prior any mechanical conversion. Thus, pulmonology was consulted today to comment on the safety of restarting anticoagulation in the setting of recent hemorrhagic secretions. After review, theyrecommended to restart IV heparin initially to ensure no signs or symptoms of bleeding. Therefore, we will plan to initiate IV heparin today and perform FRACISCO guided cardioversion. If there is no evidence of further bleeding, then we will plan to transition to Xarelto prior to discharge, which we will need to be continued strictly for at least 30 days following cardioversion. I discussed with the patient both the risks of re-bleeding as well as the risk of stroke if blood thinners were to be heldfollowing cardioversion. He understood the risks, and he was agreeable to move forward given atrialfibrillation and stroke is one of his biggest health fears. Regarding rate control and maintenance of sinus rhythm, plan to continue metoprolol tartrate 37.5 mg twice daily at this time. We will alsoplan to resume his amiodarone with potential dose increase. He should follow up with Dr. Max álvarez [facility] clinic for further discussion regarding future ablation. He was found to have recurrent severe mitral regurgitation on FRACISCO in January of 2024. Dr. Thakkar reviewed at that time and recommended conservative management given risk of creating mitral stenosis with an additional MitraClip procedure. On admission, he demonstrates small bilateral pleural effusions with increased oxygen requirement (baseline 1 L nocturnal). Otherwise, he is not significantly volume overload on exam. Therefore, we will plan for 1 dose of IV Lasix 40 mg today and continue to monitor urine output and oxygen requirements. For his other medical concerns, we will plan to continue posaconazole 300 mg daily for his Aspergillus pneumonia. He was scheduled to follow up with Dr. Hurtado in Oncology for discussion regarding his therapies for his CLL and melanoma. Currently, his acalabrutinib and Keytruda are currently held dueto concern for etiology of his pneumonia. I will plan to email Dr. Hurtado today to ensure appropriateoutpatient follow up is rescheduled. ADDENDUM 13:45 After further discussion with the cardioversion lab today, they required patient to be on IV heparin for 6 hours prior to cardioversion, which would have delayed cardioversion until Tuesday. Therefore, after careful discussion with the patient regarding bleed risk, we then planned to re-initiate hisXarelto for anticoagulation and still plan for cardioversion today. Unfortunately, since his antifungal, posaconazole, is a P-gp inhibitor, it directly interacts with all DOACs and significantly increase his risk of bleeding (contraindicated per Xarelto website). Thus, after further discussion withthe patient, plan to initiate IV heparin with warfarin loading today (Goal 2-3) for anticoagulation. This timing unfortunately defers cardioversion until 07/23/2024. We will plan to continue rate control with metoprolol tartrate and resume his amiodarone at this time. There has been multiple issues with the posaconazole medication, including interaction with DOACs and amiodarone as well as significant cost to the patient ($1100/week). Therefore, I mino added infectious disease today about a potential switch to isavuconazole. They reviewed with their team andpharmacist. At this time, given the multitude of interactions between multiple antifungals, they believe the best choice is to continue the posaconazole at current dosing and continued with warfarin.However, they recommended multiple options with [facility] or GoodRx to help him pay for the medication at this time. We will continue to follow up with their team as needed. PLAN: Paroxysmal Atrial Fibrillation Anticoagulation: Initiate IV heparin with warfarin loading, INR goal 2-3 Pharmacy consulted to assist with warfarin dosing Need to continue therapeutic anticoagulation for 30 days following cardioversion; likely plan to discharge with Lovenox bridging FRACISCO-DCCV on 07/23/2024 Rate and rhythm control Continue metoprolol tartrate 37.5 mg twice daily Continue amiodarone 100 mg daily Plan to obtain amiodarone level; consider careful up titration with antifungal use CV follow up in the [facility] clinic with Marilu Calero on 08/29/2024 Recent hemorrhagic secretions of respiratory tract - Pulmonary Medicine consulted OK to restart anticoagulation, monitor for any signs of bleeding or hemoptysis Hemoglobin stable today at 11.0 (10.7 yesterday) Severe mitral regurgitation with small bilateral pleural effusions Medical management Continue lisinopril 15 mg daily Diuresis: IV Lasix 40 mg today; reassess volume status tomorrow Outpatient follow up with Dr. Thakkar in March 2025 Continue posaconazole 300 mg daily for Aspergillus pneumonia [facility] - continue current dosing with infectious disease follow up on 08/13/2024 Introduced patient to [facility] ($180/month) as well as goodRx to ensure affordability History of CLL and Melanoma I will e-mail his oncologist, Dr. Hurtado, today to ensure appropriate follow up is arranged Continue to follow oxygen needs (previous baseline 1 L nocturnal) Consulted case management to assist with reconnect Consider repeat oxygen studies in the outpatient setting Continue other medications at this time, including amlodipine, tamsulosin, levothyroxine, Xanax p.r.n., magnesium supplementation, and pantoprazole (interchanged with Prilosec) Hold atorvastatin due to interaction with posaconazole VTE: anti-coagulation held due to recent hemorrhagic secretions Gi: Pantoprazole Telemetry Indication: Paroxysmal AF Tubes/lines: PIV Code Status: Full Code Disposition: Home - self care Harpal Hodges P.A.-C. 07/20/24 RST CARD 4 I personally spent a total 50 minutes providing and coordinating care today. MAKER ELECTRONIC MAKER ELECTRONIC documented in this encounter H&P Notes * Jun Shipley M.D. - 07/20/2024 10:19 AM CST I have met, interviewed, and examined the patient in conjunction with Mr. Aurelio Vann, and agree with his note dated yesterday. In summary the patient was admitted with recurrent paroxysmal atrial fibrillation with rapid ventricular response. He has not been on anticoagulation because of some recent pulmonary bleeding. His past cardiac history includes prior mitral valve edge to edge repair (MitraClip), with recurrent severe mitral regurgitation. His recent pulmonary evaluation showed a pulmonary aspergillosis as well as a metapneumovirus pneumonia. The patient is resting comfortably in bed without pain. He is not having dyspnea. 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 Ideally we could resume that today and do a FRACISCO guided cardioversion to get him out of atrial fibrillation. We will work with the Pulmonary team on making the optimal decision in this regard. The patient is quite keen to get out of atrial fibrillation as this is 1 of his biggest health fears. He expresses an understanding andagreement with our treatment plan. MAKER ELECTRONIC * Aurelio Vann P.A.-C. - 07/19/2024 7:36 PM CST SUBJECTIVE REFERRAL SOURCE [facility], [place], [place] CHIEF COMPLAINT/REASON FOR VISIT Recurrent paroxysmal Atrial fibrillation with rapid ventricular response HISTORY OF PRESENT ILLNESS Mr. Jensen is a 78-year-old gentleman with comorbidities including but not limited to the following: Mitral regurgitation s/p ARIAS ( 1 XTR Mitraclip at A2/P2 for P2 flail by Dr. Echevarria, 06/28/2019) ,Atrial fibrillation s/p ablation 2020 on Xarelto (anticoagulation currently held as discussed below), CLL on acalabrutinib, melanoma on Keytruda, prostate cancer, hypothyroidism, HTN, HLD, and GERD. Patient has known chronic lower extremity edema of his right leg (recent ultrasound negative). Of note,he does have eccentric severe MR noted on TTE from January 2024 - it was decided to observe with conservative management as there was risk of creating mitral stenosis with additional MitraClip procedure - and patient was asymptomatic - plan was to re-eval in 1 year (Mar 2025) - Please see Dr. Thakkar's note dated Mar 13, 2024 for details. 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 Very sadly, his from complications of a pneumonia on June 07, 2024. Patient was recently hospitalized June 30, 2024 through July 07, 2024 for treatment of multifocal pneumonia. Initially he was treated with broad-spectrum therapy consisting of Impinem and doxycycline then transitioned to cefepime and doxycycline. MRSA swab was negative. He was also administered steroids. It was decided to pursue bronchoscopy. Patient's regimen of Xarelto was held and he was placed on heparin infusion for procedure. Infectious workup revealed positive beta D glucan. Bronchoscopy revealed hemorrhagic secretions within the larynx, mainstem bronchi, and trachea. Further labwork was positive for Aspergillus. Patient was initiated on posaconazole on July 02 which was to continue for at least 3 months. Six week follow-up with a CT of the chest was planned. Most recent fluconazole levels were checked July 07 (goal levels are between 7620-6399). Did receive 1 unit of packed RBCs due to low hemoglobin below threshold of 8.0. Regarding anticoagulation, the patient does have a CHADS2 Vasc score of 4. Due to the hemoptysis and hemorrhagic secretions as describedabove, it was recommended that anticoagulation be held for 2-3 weeks, then reassess, and potentially restart if deemed safe to do so. Of note, situation was discussed with oncology who felt that CLL being treated with acalabrutinib may have contributed to development of infectious process. Currently, Acalabrutinib and Keytruda are on hold. Patient did qualify for 1 L oxygen nocturnally. Of note, patient's insurance did not approve posaconazole-they required trying either Cresemba or Voriconazole before utilizing posaconazole. Patient decided to pay cost of posaconazole for now. On July 19, patient presented to the emergency room for palpitations. ECG revealed atrial fibrillation with rapid ventricular response. There was no evidence of ST elevation Chest x-ray revealed improved bilateral airspace and interstitial opacities compared to study from July 04, 2024. There were trace to small pleural effusions, left greater than right. No pneumothorax. Cardiac silhouette was stable. MitraClip noted. Aortic calcifications. He was afebrile. Blood work revealed hemoglobin 10.7, hematocrit 34.3, platelet count 277, leukocytes 36.9, prothrombin time 12.4, INR 1.1, D-dimer 1273, glucose 116, sodium 132, potassium 4.7, chloride 97, bicarbonate 22, anion gap 13, BUN 18, creatinine 0.93, estimated GFR 84, calcium 8.7, glucose 120, magnesium 1.9, total bilirubin 1.2, direct bilirubin 0.4, ALT 19, AST 30, alkaline phosphatase 87, total protein 5.1, albumin 3.5, lactate 1.04, troponins flat (baseline 32, 2 hour 33 with no delta), TSH mildlyelevated at 4.4 (reference range 0.3-4.2) with a free T4 of 1.8 (reference range 0.9-1.7). Urinalysis was negative for glucose, blood, nitrites, and leukocyte esterase. Due to elevated D-dimer CTA of the chest was performed which was negative for pulmonary emboli. There was pulmonary edema and small bilateral pleural effusions. The effusions had increased in size since June 30. Multifocal consolidation in the lungs has moderately improved since June 30. There was extensive adenopathy in the chest which was largely unchanged since June 30 (though several lymph nodes have slightly enlarged). Patient was administered IV fluids, IV magnesium, and IV metoprolol with improvement of heart ratesdown into the low 100s. Patient was due to potentially restart anticoagulation next week (July 26). He was subsequently admitted to the Cardiology service for further management and evaluation. REVIEW OF SYSTEMS A Complete review of systems was performed, with pertinent information in the history, and all others negative HOME MEDICATIONS: Current Outpatient Medications on File Prior to Encounter: ALPRAZolam (XANAX) 0.25 mg tablet, Take 0.125 mg by mouth every 12 (twelve) hours as needed for anxiety., 07/19/2024 Morning amiodarone (Pacerone) 200 mg tablet, Take 0.5 tablets (100 mg total) by mouth daily., 07/19/2024 Morning amLODIPine (Norvasc) 5 mg tablet, Take 5 mg by mouth daily., 07/19/2024 Morning calcium carbonate (calcium carbonate) 1000 mg (400 mg calcium) chewable tablet, Chew 1 tablet 3 (three) times a day as needed for indigestion., 07/18/2024 Evening DME Oxygen, DME Order - for details see Order Report, 07/19/2024 Morning ferrous sulfate 325 mg (65 mg iron) tablet, Take 1 tablet (65 mg of iron total) by mouth every other day., Past Week levothyroxine 112 mcg tablet, Take 112 mcg by mouth daily before morning meal., 07/19/2024 Morning lisinopriL 10 mg tablet, Take 1.5 tablets (15 mg total) by mouth 2 (two) times a day., 07/19/2024 Morning magnesium chloride (Slow-Mag) 71.[address] tablet, Take 1 tablet (71.5 mg total) by mouth daily., 07/18/2024 metoprolol tartrate (Lopressor) 75 mg tablet, Take 0.5 tablets (37.5 mg total) by mouth 2 (two) times a day., 07/19/2024 Morning omeprazole (PriLOSEC) [address] capsule, Take 1 capsule (20 mg total) by mouth daily before morning meal., 07/18/2024 posaconazole (NoxafiL) [address] tablet, Take 3 tablets (300 mg total) by mouth daily Indications: Aspergillus infection., 07/19/2024 Morning tamsulosin (FLOMAX) 0.4 mg 24 hr capsule, Take 0.4 mg by mouth daily., 07/18/2024 Morning atorvastatin (Lipitor) 20 mg tablet, Take 1 tablet (20 mg total) by mouth daily. DO NOT RESTART UNTIL INSTRUCTED BY YOUR PRIMARY CARE PROVIDER., More than a month [Paused] [place], acalabrutinib mal, 100 mg tablet, Take 100 mg by mouth 2 (two) times a day., Unknown rivaroxaban (Xarelto) 20 mg tablet, Take 1 tablet (20 mg total) by mouth daily with evening meal. DO NOT START TAKING UNTIL INSTRUCTED BY YOUR PRIMARY CARE PROVIDER., Unknown ALLERGIES Allergies[1] PAST MEDICAL HISTORY Mitral regurgitation s/p ARIAS ( 1 XTR Mitraclip at A2/P2 for P2 flail by Dr. Echevarria, 06/28/2019) Atrial fibrillation CLL on acalabrutinib melanoma on Keytruda prostate cancer hypothyroidism HTN GERD SOCIAL HISTORY Social History[2] FAMILY HISTORY Family History[3] OBJECTIVE VITAL SIGNS: Temperature: [36.5 ??C] 36.5 ??C Heart Rate: [95-131] 109 Resp Rate: [13-27] 22 Blood Pressure: (114-155)/(78-111) 133/89 SpO2: [91 %-97 %] 94 % Weight: [70.2 kg] 70.2 kg Pulse Rate: [69-136] 123 Body mass index is 22.11 kg/m??. PHYSICAL EXAMINATION General: Alert oriented x 3. NAD. Heart: Irregularly irregular. No appreciable murmurs, rubs, or gallops. Vessels: No JVD. No carotid bruits upon auscultation bilaterally. Radial, femoral, & dorsalis pedis pulses easily palpable bilaterally. Lungs: CTA bilaterally. Head: Normocephalic. No evidence of trauma. Eyes: PERRL. EOMs intact. ENT: No epistaxis. Throat: No exudate or erythema noted. Abdomen: Bowel sounds present upon auscultation. Nontender. Extremities: Right lower extremity edema in the pretibial region-known to be chronic. No lower extremity edema of the left leg. Psychiatric: Mood and affect appropriate. Neurological: Cranial nerves 2-12 grossly intact. Strength 4-5/5 in both upper and lower extremities bilaterally LABORATORIES/DIAGNOSTICS: Recent Results (from the past 24 hours) Basic Metabolic Panel Collection Time: 07/19/24 10:14 AM Result Value Potassium, P 4.7 Sodium, P 132 (L) Chloride, P 97 (L) Bicarbonate, P 22 Anion Gap, P 13 BUN (Blood Urea Nitrogen), P 18 Creatinine 0.93 Estimated GFR (eGFR) 84 Calcium, Total, P 8.7 (L) Glucose, P 120 CBC with Differential, Blood Collection Time: 07/19/24 10:14 AM Result Value Hemoglobin 10.7 (L) Hematocrit 34.3 (L) Erythrocytes 3.70 (L) MCV 92.7 RBC Distrib Width 16.4 (H) Platelet Count 277 Leukocytes 36.9 (H) Neutrophils See Comment Morphology Eval (special smear) Collection Time: 07/19/24 10:14 AM Result Value Neutrophilic Segs and Bands 19 (L) Lymphocytes 79 (H) Monocytes 2 Manual Absolute Neutrophil Count 7.01 (H) Magnesium Collection Time: 07/19/24 10:14 AM Result Value Magnesium, P 1.9 Glucose, POCT Collection Time: 07/19/24 10:15 AM Result Value Glucose, POCT, B 116 Troponin T, Baseline with 2 Hour/6 Hour Reflex Biomarker Panel Collection Time: 07/19/24 10:15 AM Result Value Troponin T, Baseline, 5th gen 32 (H) Prothrombin Time (PT) Collection Time: 07/19/24 10:15 AM Result Value Prothrombin Time, P 12.4 INR 1.1 Troponin T, 2 Hour with 6 Hour Reflex, 5th Gen Collection Time: 07/19/24 1:07 PM Result Value Troponin T, 2 hr, 5th gen 33 (H) 2H Delta 1 2H Delta Interp Not Changing Hepatic Function Panel Collection Time: 07/19/24 1:07 PM Result Value Bilirubin, Total, S 1.2 Bilirubin, Direct, S 0.4 (H) Aspartate Aminotransferase (AST), S 30 Alanine Aminotransferase (ALT), S 19 Alkaline Phosphatase, S 87 Albumin, S 3.5 Protein, Total, S 5.1 (L) D-Dimer Collection Time: 07/19/24 1:07 PM Result Value D-Dimer, P 1273 (H) Thyroid Function [place] Collection Time: 07/19/24 1:07 PM Result Value TSH, Sensitive 4.4 (H) Lactate, POCT Collection Time: 07/19/24 1:07 PM Result Value Lactate, POCT 1.04 Thyroperoxidase (TPO) Antibodies Collection Time: 07/19/24 1:07 PM Result Value Thyroperoxidase Ab, S <15.0 T4 (Thyroxine), Free, Serum Collection Time: 07/19/24 1:07 PM Result Value T4 (Thyroxine), Free, S 1.8 (H) Urinalysis, with Microscopic: Urine, Midstream Collection Time: 07/19/24 2:46 PM Result Value Source Urine, Urine, Midstream Color, U Yellow Clarity, U Clear Protein, U 60 (H) Protein/Osmolality 1.34 (H) Predicted 24 HR Protein, U 1247 (H) Predicted Range 396-3928 Osmolality, Urine Collection Time: 07/19/24 2:46 PM Result Value Osmolality, U 447 Dipstick, Urine Collection Time: 07/19/24 2:46 PM Result Value Hemoglobin, QL, U Negative Leukocyte Esterase, U Negative Nitrite, U Negative Ketone, U Negative Glucose, U Negative pH, Urine Collection Time: 07/19/24 2:46 PM Result Value pH, U 6.8 Microscopic Manual Collection Time: 07/19/24 2:46 PM Result Value Microscopy Abnormal RBC <3 WBC None Seen Casts, Granular Occas (A) Dipstick, POCT, Urine Collection Time: 07/19/24 2:50 PM Result Value Glucose, POCT, U Negative Ketone, POCT, U Negative Specific [place], POCT, U 1.015 Blood, POCT, U Negative pH, POCT, Urine 7.0 Protein, POCT, U 100 (A) Nitrites, POCT, U Negative Leukocytes, POCT, U Negative TTE January 12, 2024 Final Impressions 1. Status post transcatheter mitral [...] Side by side comparison of images performed. FRACISCO January 13, 2024 Final Impressions 1. Status post transcatheter mitral [...] No intracardiac mass or thrombus identified. 6. [id number] shunt at atrial level by color flow imaging and agitated saline contrast injection. Imaging findings are consistent with prior trans-septal puncture. \.br\\.br\\.br\\.br\ with prior trans-septal puncture. by color flow imaging and agitated saline contrast injection. 7. No pericardial effusion. 8. The remainder of the findings are as per the transthoracic echocardiogram of 01/12/2024. CTA July 19, 2024 EXAM: CT CHEST ANGIOGRAM AND PULMONARY ARTERIES [...] the chest and visualized lower neck, largely unchangedsince 06/30/2024, though some lymph nodes have increased. For example, a 12 mm right axillary node (/26) has increased from 7 mm and a 13 mm left axillary node (/50) has increased from 9 mm. A 7 mm prevascular node (/) is increased from 4 mm and an 11 mm left paratracheal node (5/102) has increased from 8 mm. The dominant 25 mm subcarinal node is not significantly changed. Dilatation the mid ascending aorta measuring 40 mm. Coronary artery calcification and calcificationof the aortic valve leaflets. Mitraclip. Left atrial enlargement. Sebaceous cyst in the upper back. Old rib fractures. Degenerative changes in the spine. IMPRESSION: 1. Negative for acute pulmonary embolus. 2. Pulmonary edema and small bilateral pleural effusions. The effusions have increased in size since 06/30/2024. 3. Multifocal consolidation in the lungs has moderately improved since 06/30/2024. 4. Extensive adenopathy in the chest is largely unchanged since 06/30/2024, though several lymph nodes have slightly enlarged. ECG July 19, 2023 IMPRESSION: Atrial fibrillation with rapid ventricular response with premature ventricular or aberrantly conducted complexes Nonspecific ST and T wave abnormality When compared with ECG of 05-Jul-2024 09:27, Premature atrial complexes are now present ASSESSMENT / PLAN #1 Recurrent paroxysmal atrial fibrillation with rapid ventricular response, anticoagulation currently on hold due to #2 (CHADS2 Vasc score 4) s/p ablation 2020 #2 Recent Bronchoscopy (July 02, 2024) revealing hemorrhagic secretions within the larynx, mainstem bronchi, and trachea with associated hemoptysis #3 Invasive pulmonary aspergillosis #4 Human metapneumovirus pneumonia #5 Mitral regurgitation s/p ARIAS ( 1 XTR Mitraclip at A2/P2 for P2 flail by Dr. 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 Heart rates had subsequently improved down to the low 100s. Patient is currently hemodynamically stable and asymptomatic. We will continue to monitor and initiate additional heart rate control as necessary. We will continue his current home regimen of metoprolol. --Anticoagulation (Xarelto) currently on hold secondary to recent bronchoscopy revealing hemorrhagic secretions within the larynx, mainstem bronchi, and trachea with the associated hemoptysis. Plan was to potentially restart anticoagulation with Xarelto on July 26 if deemed safe to do so. Patient does not currently have any evidence of any further occurrences of hemoptysis or other bleedingissues. We contact our Pulmonary team to further discuss as to whether or not to initiate anticoagulation considering the safety factor and recent bleed. If it is decided to pursue a cardioversion, patient would need to be restarted on anticoagulation. Additionally he would need a FRACISCO prior to cardi oversion. We will keep patient NPO after midnight. --Of note, he does have eccentric severe MR - it was decided to observe with conservative management as there was risk of creating mitral stenosis with additional MitraClip procedure - and patient was asymptomatic - plan was to re- eval in 1 year (Mar 2025) - Please see Dr. Thakkar's note dated 2023 for details. --Continue current treatment of pulmonary aspergillosis with posaconazole 300 mg daily. We will discuss touching base with our infectious disease colleagues for any further recommendations (includingobtaining updated serum levels or modifications of therapy). --Currently treatment with acalabrutinib and Keytruda is on hold during treatment of pulmonary aspergillosis. We will contact our Oncology team for further recommendations if necessary - he was due to have a follow-up with them today but had to be canceled due to ER visit. --Continue current home regimen of amlodipine, lisinopril, tamsulosin, levothyroxine, Xanax p.r.n. anxiety, magnesium supplementation, and tamsulosin. --Atorvastatin currently on hold due to interaction with posaconazole. --Pantoprazole interchanged with Prilosec during hospital admission. VTE: anti-coagulation held due to recent bleed Code Status: Full Code Disposition: Home - self care Aurelio Vann P.A.-C. 07/19/24 I personally spent a total of 60 minutes providing and coordinating care today. [1] Allergies Allergen Reactions Ibrutinib Rash Penicillins Hives (Reselect Reaction) *reaction when teenager, Penicillin G. [2] Social History Tobacco Use Smoking status: Never Smokeless tobacco: Never Vaping Use Vaping status: never used Substance Use Topics Alcohol use: Never Drug use: No [3] Family History Problem Relation Name Age of Onset Lymphoma Father Billy Shoemaker Coronary artery disease Mother Richelle Jensen Hypertension Mother Richelle Jensen MAKER ELECTRONIC MAKER ELECTRONIC MAKER ELECTRONIC documented in this encounter Consult Notes * Kiki Mckeon M.S., RDN, LD - 07/20/2024 3:00 PM CSTAssociated Order(s): IP CONSULT TO DIETITIAN Clinical Nutrition: Initial Assessment Clinical Nutrition was requested to evaluate patient for positive nursing baseline nutrition screenwith a MST score of 2 or greater Completed visit or chart review today without direct contact with the patient due to patient being busy with other services during visit attempts. SUBJECTIVE Mr. Jensen is a 78 y.o. male admitted for Atrial Fibrillation Unspecified (HCC) Pertinent History: Medical History[1] Surgical History[2] Current Nutrition: - Pt is currently on regular diet with 2 gm Na restriction. Appears to be tolerating at this time. Percentage of Meals Eaten for the past 72 hrs: Percent Meals Eaten (%) 07/20/24 1436 100 Nutrition Prior to Admission: Per recent RDN assessment on 07/02/24 Chad notes that in this last month eating has been poor relating to loss of his . He noted that he has lost some weight within this time as well. Noted pt's May last year d/t pneumonia. Nutrition Education/Counseling: N/A Food Allergies/Intolerances: Allergies Allergen Reactions Ibrutinib Rash Penicillins Hives (Reselect Reaction) *reaction when teenager, Penicillin G. OBJECTIVE Current nutrition orders: Dietary Orders (From admission, onward) Start Ordered 07/20/24 1230 Adult Diet Regular; 2,000 mg Na (Adult Diet) Diet effective now Question Answer Comment Diet texture: Regular Sodium: 2,000 mg Na 07/20/24 1229 Pertinent Labs: Last 3 results Lab Units 07/20/24 0837 07/19/24 1014 SODIUM P mmol/L -- 132* SODIUM mmol/L 136 -- POTASSIUM mmol/L 4.3 -- POTASSIUM P mmol/L -- 4.7 CHLORIDE P mmol/L -- 97* CHLORIDE mmol/L 102 -- BUN P mg/dL -- 18 BUN mg/dL 19 -- CREATININE mg/dL 0.96 0.93 CALCIUM P mg/dL -- 8.7* CALCIUM mg/dL 8.2* -- MAGNESIUM RL mg/dL -- 1.9 Lab Results Component Value Date/Time C-Reactive Protein (CRP), S 53.3 (H) 07/04/2024 12:19 AM Chewing and Swallowing: No concerns noted at this time GI Function:Last BM Date: 07/19/24, , Tube Information: Placement confirmed: N/A Edema:Edema: Right lower extremity, , ,Right Lower Extremity Edema: +2 Pit 4mm deep, indentation subsides rapidly, , , Integumentary/Wounds: Lloyd scale score 22 Lines/Drains/Airways Wound Duration Wound 07/20/24 Intertriginous Dermatitis Buttocks Bilateral <1 day Medications: Current Medications[3] Anthropometrics: Height: 176 cm Admission Weight: 70.2 kg (07/19/2024) Current Weight: 68.2 kg BMI (Calculated): 22 kg/m?? Weight change since admission: -2 kg Net IO Since Admission: 1,470 mL [07/20/24 1502] Weight history: Per EMR, weight of 77 kg on 01/13/24 and 76 kg on 03/13/24 - loss of 7.8 kg (10%) x 4 months - clinically significant; 70.5 kg on 06/30/23 - loss of 2.3 kg (3%) x ~3 weeks Wt Readings from Last 12 Encounters: 07/20/24 68.2 kg 06/30/24 70.5 kg 03/13/24 76 kg 01/13/24 77 kg 05/03/23 81 kg 02/23/23 80 kg 11/24/22 81.2 kg 10/13/22 80.4 kg 05/12/22 83.1 kg 04/02/22 83 kg 01/09/22 79.6 kg 08/06/21 81.6 kg ASSESSMENT / PLAN Nutrition Diagnosis: Suspected malnutrition related to suspected inadequate oral intakes as evidenced by recent hx of meeting criteria for malnutrition, weight loss of 10% over 4 months, and patient report of weight losson admission . Initiated Malnutrition Assessment: ASPEN Criteria of Malnutrition: Nutritional Status: Malnutrition criteria not met (needs further assessment including diet recall and physical exam) Malnutrition in the Context of: Chronic Illness (Likely component of social/environmental etiolgy contributing to malnutrition as well) Based on: Energy Intake: Unable to Assess Interpretation of Weight Loss: 10% 6 months Body Fat: Unable to Assess Muscle Mass: Unable to Assess Fluid Accumulation: Unable to Assess Estimated Needs: Total Calorie Needs: 8477-0768 calories/day Method to Estimate Energy Needs: kcal/kg (25-30 kcal/kg) Weight Used for Equation Calculations: 68.2 kg Total Protein Needs: 68 - 89 grams/day (Method to Estimate Protein Needs (g/kg): 1 - 1.3 gm/kg) Weight Used to Calculate Protein Needs (Kg): 68.2 kg Nutrition Intervention: Interventions: Medical food supplement, Provide counseling strategies to apply nutrition knowledge,Provide education to increase nutrition knowledge Monitoring/Evaluation: Nutrition parameter to monitor: Meals/Supplement Intake, Weight Status, Pertinent Labs, Fluid Balance, and Comparative Standards Desired Outcome: Consume adequate nutrition orally Adequate stooling Labs within acceptable limits No further weight loss Recommendations: No changes at this time; continue current nutrition orders Oral nutrition supplements as needed to bolster intakes and prevent further unintentional weight loss. Clinical Nutrition will continue to follow. For questions about patient's nutritional care please contact pager [phone] on weekdays 07:30-16:00 or [phone] on weekends/holidays ([facility]) [phone]. [1] Past Medical History: Diagnosis Date Anxiety Generalized Disorder 09/16/2008 Atrial Fibrillation Unspecified (HCC) 02/2020 Benign Prostatic Hyperplasia Without Obstruction 06/28/2019 Cataract 1999 Gastroesophageal Reflux Disease NOS 2016 Hypertension Essential Primary 09/16/2008 Hypothyroidism Leukemia 2019 Malignant Neoplasm Of Skin Squamous Cell Carcinoma Melanoma Skin (HCC) 2013 Melanoma Trunk (HCC) 11/22/2011 S/p excision Personal History Of Malignant Neoplasm Of Prostate 06/28/20192004 s/p radioactive seeds Primary Malignant Neoplasm Of Prostate (HCC) 2004 Regurgitation Mitral 06/26/2019 W/ a flail segment of the lateral aspect of P2 with associated severe MR. Tachycardia Ventricular Personal History 06/28/2019 Paroxysmal VT in 2008 [2] Past Surgical History: Procedure Laterality Date BRONCHOSCOPY FLEXIBLE: BRONCHOALVEOLAR LAVAGE IMMUNOCOMPROMISED HOST N/A 07/02/2024 Procedure: BRONCHOSCOPY FLEXIBLE: BRONCHOALVEOLAR LAVAGE - IMMUNOCOMPROMISED HOST OR NON-IMMUNOCOMPROMISED HOST; Surgeon: Lamberto Schaefer M.D.; Location: [facility] CARDIAC VALVE SURGERY 2019 CATH ABLATION N/A 11/05/2020 Procedure: ABLATION - PVI; Surgeon: Ron Santana M.D., Ph.D.; Location: [facility] CATH ABLATION N/A 11/05/2020 Procedure: Cryo Balloon; Surgeon: Ron Santana M.D., Ph.D.; Location: [facility] CATH ANGIOGRAM N/A 06/28/2019 Procedure: Left Heart Catheterization; Surgeon: Hernandez Echevarria M.D.; Location: [facility] CATH ANGIOGRAM N/A 06/28/2019 Procedure: Right Heart Catheterization; Surgeon: Hernandez Echevarria M.D.; Location: [facility] CATH INTERVENTION N/A 06/28/2019 Procedure: MITRAL VALVE LEAFLET CLIP; Surgeon: Hernandez Echevarria M.D.; Location: [facility] CATH TRANSEPTAL N/A 06/28/2019 Procedure: Transeptal; Surgeon: Hernandez Echevarria M.D.; Location: [facility] MOHS SURGERY TONSILLECTOMY 1947 [3] Current Facility-Administered Medications: acetaminophen tablet 500 mg (TylenoL), 500 mg, oral, Q6H PRN, Aurelio Vann V., P.A.-C. ALPRAZolam tablet 0.125 mg (Xanax), 0.125 mg, oral, Q12H PRN, Aurelio Vann V., P.A.-C. amiodarone tablet 100 mg (Pacerone), 100 mg, oral, Daily, Harpal Hodges P.A.-C., 100 mg at 07/20/24 1420 amLODIPine tablet 5 mg (Norvasc), 5 mg, oral, Daily, Aurelio Vann V., P.A.- C., 5 mg at [address] tablet 10 mg (Dulcolax), 10 mg, oral, Daily PRN, Aurelio Vann V., P.A.-C. bisacodyL suppository 10 mg (Dulcolax), 10 mg, rectal, Daily PRN, Aurelio Vann V., P.A.-C. D5W infusion, 1-999 mL/hr, intravenous, PRN, Cathy Kern M.D. ferrous sulfate tablet 65 mg of iron, 65 mg of iron, oral, Every Other Day, Aurelio Vann V., P.A.-C., 65 mg of iron at 07/20/24 0812 heparin (porcine) 1,000 unit/mL injection 2,100 Units, 30 Units/kg (Dosing Weight), intravenous, PRN OR heparin (porcine) 1,000 unit/mL injection 4,200 Units, 60 Units/kg (Dosing Weight), intravenous, PRN, Harpal Hodges, P.A.-C. heparin (porcine) 100 Units/mL in NaCl 0.45% 250 mL infusion, 1-30 Units/kg/hr (Dosing Weight), intravenous, Continuous, Harpal Hodges, P.A.-C., Last Rate: 8.42 mL/hr at 07/20/24 1243, 12 Units/kg/hr at 07/20/24 1243 levothyroxine tablet 112 mcg, 112 mcg, oral, Daily before morning meal, Aurelio Vann V., P.A.-C., 112 mcg at 07/20/24 0607 lisinopriL tablet 15 mg, 15 mg, oral, BID, Aurelio Vann V., P.A.-C., 15 mg at 07/20/[address] tablet 64 mg (Mag-Delay), 64 mg, oral, Daily before morning meal, Aurelio Vann V., P.A.-C., 64 mg at 07/20/24 0607 metoprolol tablet 37.5 mg (Lopressor), 37.5 mg, oral, BID, Aurelio Vann V., P.A.-C., 37.5 mg at07/20/24 0811 NaCl 0.9% infusion, 1-999 mL/hr, intravenous, PRN, Cathy Kern M.D. NaCl 0.9% infusion, 1-999 mL/hr, intravenous, PRN, Cathy Kern M.D. pantoprazole DR tablet 40 mg (Protonix), 40 mg, oral, Daily before morning meal, Aurelio Vann V., P.A.-C., 40 mg at 07/20/[address] tablet 300 mg (NoxafiL), 300 mg, oral, Daily, Aurelio Vann V., P.A.-C., 300 mg at 07/20/24 0812 sodium chloride 0.9 % injection 10 mL, 10 mL, intravenous, PRN, Aurelio Vann V., P.A.-C. sodium chloride 0.9 % injection 10 mL, 10 mL, intravenous, PRN, Aurelio Vann V., P.A.-C. sodium chloride 0.9 % injection 3 mL, 3 mL, intravenous, PRN, Aurelio Vann V., P.A.-C. sodium chloride 0.9 % injection 3 mL, 3 mL, intravenous, Q12H SILVANO, Aurelio Vann V., P.A.-C., 3 mL at 07/20/24 1243 sodium chloride 0.9 % injection 3 mL, 3 mL, intravenous, PRN, Aurelio Vann V., P.A.-C. sodium chloride 0.9 % injection 3 mL, 3 mL, intravenous, Q12H SILVANO, Aurelio Vann V., P.A.-C., 3 mL at 07/20/24 1240 tamsulosin 24 hr capsule 0.4 mg (Flomax), 0.4 mg, oral, Daily, Aurelio Vann V., P.A.-CBuddy, 0.4 mgat 07/20/24 0812 warfarin management (Jantoven), , oral, Daily, Harpal Hodges P.A.-C. warfarin tablet 2 mg (Jantoven), 2 mg, oral, Once, Nahun Hilton Pharm.D., R.Ph. MAKER ELECTRONIC * Phill Allred R.N. - 07/20/2024 10:56 AM CSTAssociated Order(s): IP CONSULT TO CARE MANAGEMENT Discharge Planning Assessment SUBJECTIVE Assessment Information Referral Data Referral Source: Provider/Service Referral Reason: Discharge Planning Discharge Planning: Oxygen Previous Assessment: Yes Previous assessment done on: 07/01/24 Previous assessment done by: Cheryl Amezcua M.S.Kathrine, L.G.S.W. Med Surg Nurse Services Used: No Primary Language: Syrian Med Surg Nurse Services Used: No Person(s) Present During Interview: patient History of Present Illness #1 Atrial Fibrillation Paroxysmal (HCC) #2 Atrial Fibrillation Unspecified (HCC) Social History Family / Household: one-level home; lives alone Support System: family members Primary Caregiver: self and family Caregiver Information: Caregiver Name: Rosa (Daughter) Social Drivers of Health with Concerns Utilities: Not At Risk (07/19/2024) [facility] Utilities Threatened with loss of utilities: No Recent Concern: Utilities - At Risk (05/17/2024) Received from [facility] Utilities Do you have trouble paying for utilities (for example, heat, electricity, water, phone)?: Yes OBJECTIVE Finance/Insurance Primary insurance: MEDICARE A AND B Secondary insurance: [employer] benefits: No Advance Directives Legal Decision Maker: Self Advance Directives: N/A Advance Directives Status: None on file, Not Activated Baseline Functional Status Baseline Activities of Daily Living Mobility: Independent Dressing: Independent Feeding: Independent Bathing: Independent Grooming: Independent Toileting: Independent Behavior: Appropriate, Pleasant, Calm, Cooperative, Oriented Communication: Understands Syrian, Understands speaking, Talks Shopping: Independent Medication Management: Independent Housekeeping: Independent Meal Prep: Independent Assistive Devices: Cellphone, Oxygen, Tub/shower chair/bench Home Oxygen Company: [employer] Primary care clinic and provider: Patient Care Team Relationship Specialty Notifications Start End Nikki Reilly D.O. External Primary Care Physician Family Medicine 01/13/24 Address: [address] [place] [phone] Anticipated Needs Functional Status: Transportation use (drive car, use taxi/bus) Assistive Devices: Oxygen Anticipated Modifications to the Patient's Home: None Transportation Needs: Support from family Does the patient need discharge transport arranged?: No Phone Number for Ride/Caregiver: Rosa (Daughter) Anticipated Discharge Destination: Home or Self Care Referrals Initiated: Durable Medical Equipment - Admitted Since 07/19/2024 Service Provider Request Status Services Address Phone Fax Patient Preferred [facility] [place] Pending - Request Sent -- [address] [place], [place] [phone] -- scales inspector provided Care Management Brochure ([id number]), information regarding the dismissal process, and the Senior Linkage Line ([place] Board on Aging) handout. ASSESSMENT / PLAN ASSESSMENT: The scales inspector met with Chad Jensen to discuss his current hospitalization and home goingneeds. The patient was unaccompanied. The patient was a reliable historian. The role of scales inspector was reviewed. The patient reviewed his prior level of care and support system. The patient receives support from his daughter. Chad resides alone in a single level home with level entry. Housekeeping, grocery shopping, meal prep, and other household responsibilities have previously been completed by patient. [employer] Supervisor meet with patient on NT5B Room 818. Patient is alert, oriented and is agreeable to theconversation. Patient confirms no changes since the last Psychosocial Assessment (completed on 07/01/24). Patient denies any skilled needs other than nocturnal oxygen use (1LPM) for home-going. Radha Vera will provide transportation upon discharge. At this time, the care team anticipates the patient requires the following service(s) to be reconnected: oxygen. The patient identified the following as their current vendor(s): [employer]. The patient's potential needs at dismissal based on their home setting, previous needs and responsibilities, homebound status, and relevant assessments were discussed. The patient will be safe and supported to discharge home alone when medically ready. Support will be provided by Rosa (Daughter) . scales inspector recommendations include: discussing needed assistance with family, friends, or neighbors . Pending hospital course and medical readiness, no barriers to dismissal have been identified at this time. The following hospital-based consult orders and/or referrals placed or requested: None. PLAN: The patient agrees with the following plan. Patient's Anticipated Discharge Destination: Home or Self Care Oxygen Reconnect: Durable Medical Equipment - Admitted Since 07/19/2024 Service Provider Services Address Phone Fax Patient Preferred [employer] [facility] [place] Durable Medical Equipment [address] [place], [place] [phone] -- Contact: Intake Respiratory Equipment: concentrator Oxygen provider reports patient???s current orders are for 1 liter at night. NURSING: - Arrange transportation oxygen tank if needed. - If new oxygen requirements are needed, assist primary service with new prescription and fax to provider. PRIMARY SERVICE: - Complete and sign new oxygen prescription if needed. [employer] Plant Supervisor : -Reviewed patient's insurance coverage for the services noted above. The patient appear(s) to have an understanding of this. -Will continue to follow and assist if needs arise. Transportation upon dismissal will be provided by family--Rosa (Daughter) . scales inspector encouraged the patient to reach out with any questions/concerns. Care Management will continue to assess for homegoing needs with the interdisciplinary team. Signed by: Shaila Allred R.N. 07/20/2024 MAKER [employer]LECTRON[employer] * Aparna Waldrop M.B., Ch.B. - 07/20/2024 10:09 AM CSTAssociated Order(s): IP CONSULT TO PULMONARY MEDICINE Images from the original note were not included. SUBJECTIVE REASON FOR CONSULT Recommendations about anticoagulation resumption Referring Team: CARD 4 HISTORY OF PRESENT ILLNESS Chad Jensen was initially admitted on 07/19/2024 due to A. Fib with RVR. 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 Patient had a bronchoscopy on 07/02 which showed hemorrhagic secretions throughout both trachea and both mainstem bronchi. At that time, his anticoagulation Xarelto was held. Since discharge, patient has not had any episodes of hemoptysis and has been well. Patient was readmitted yesterday with AFib witha RVR and Cardiology team is considering cardioversion. They reach out to us on recommendations about restarting his anticoagulation as he will need this before cardioversion. Patient currently has no pulmonary symptoms and has been doing well. OBJECTIVE VITAL SIGNS Vitals: 07/20/24 0810 BP: 132/82 Pulse: Resp: Temp: 36.4 ??C SpO2: PHYSICAL EXAMINATION Elderly man, looks well. Not in respiratory distress, talking comfortably on room air Chest-clear to auscultation bilaterally DIAGNOSTICS I have reviewed the patient's current laboratory, imaging, and other diagnostic studies. Clinicallysignificant abnormal findings are as follows: CHEST X-RAY: 07/19/23 IMPRESSION: Improved bilateral airspace and interstitial opacities from 07/04/2024. Trace to small pleural effusions, left greater than right. No discernible pneumothorax. Stable cardiac silhouette. MitraClip. Aortic calcifications. CT CHEST: 07/19/2024 IMPRESSION: 1. Negative for acute pulmonary embolus. 2. Pulmonary edema and small bilateral pleural effusions. The effusions have increased in size since 06/30/2024. 3. Multifocal consolidation in the lungs has moderately improved since 06/30/2024. 4. Extensive adenopathy in the chest is largely unchanged since 06/30/2024, though several lymph nodes have slightly enlarged. ASSESSMENT / PLAN #1 Invasive pulmonary aspergillosis on posaconazole treatment #2 Previous hemorrhagic secretions seen on bronchoscopy likely in the setting of acute infection and anticoagulation use on 07/02 #3 Recurrent paroxysmal AFib with a RVR #4 Mitral regurgitation s/p ARIAS ( 1 XTR Mitraclip at A2/P2 for P2 flail by Dr. 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 Jensen at bedside. He seems to be doing well and has not had any hemoptysis or worsening respiratory symptoms since discharge. Due to his ongoing atrial fibrillation with RVR and the need forcardioversion, we think it is reasonable to resume his anticoagulation at this time. We will recommend to start with IV heparin drip and monitor him for recurrent bleeding. We cannot tell definitively if he will bleed or not while on this and heparin can be easily reversed. PLAN -recommend restarting anticoagulation due to his cardiovascular risk. Can initiate heparin drip andmonitor patient for recurrent hemoptysis. Seen and discussed with Dr. Martinez. Thank you for your consult, we will sign off now. Please contact the Pulmonary Consult Service with any questions: [phone] Cosigned by Lili Duran M.D. at 07/20/2024 4:30 PM DIE MAKER ELECTRONIC MAKER ELECTRONIC MAKER ELECTRONIC Associated attestation - Lili Duran M.D. - 07/20/2024 4:30 PM DIE MAKER ELECTRONIC I saw and evaluated the patient, participating in the lange portions of the service. I reviewed the resident/fellow???s note. I agree with the resident/fellow???s findings and plan. The patient had pulmonary hemorrhage in the setting of viral infection and invasive aspergillosis. He has clinically improved, and he is on appropriate treatment for aspergillus. It would be ok to restart his anticoagulation due to atrial fibrillation. Heparin may be the best option as it is easilyreversible if he were to have recurrent bleeding. documented in this encounter Nursing Notes * Winnie Weaver M.S.N., R.N. - 07/26/2024 5:35 PM CST Problem: PAIN - ADULT Goal: PT VERBALIZES/DEMONSTRATES ADEQUATE COMFORT LEVEL OR BASELINE Outcome: Progressing Problem: SAFETY ADULT Goal: Maintain a safe environment Outcome: Progressing Problem: DISCHARGE PLANNING Goal: Patient discharge needs identified Outcome: Progressing Shift Goals: Clinical Goals for the Shift: Patient will ambulate in the hallway at least once this shift Identify possible barriers to meeting goals/advancing plan of care: prolonged hospitalization End of Shift Summary: Goal met this shift. Patient ambulated in the hallway twice this shift and tolerated well. Vital signs remained within patient's normal limits. Patient was able to make multiple phone calls today with family which brought jori and healing. He spoke with a family member that is a pharmacist who was able to find a way forhim to get his antifungal at a decreased cost. Patient verbalized an understanding of warfarin monitoring and asked appropriate questions. He continues on the heparin drip. No issues. MAKER ELECTRONIC * Kati Hoffman RBuddyN. - 07/21/2024 5:27 PM CST Shift Goals: Clinical Goals for the Shift: Patient will tolerate heart rates Identify possible barriers to meeting goals/advancing plan of care: Afib RVR End of Shift Summary: Patient was feeling well this morning. He is feeling more worn out as the daygoes on. He is ambulating to the bathroom only due to his heart rates. Nursing will continue to monitor. MAKER ELECTRONIC * Kati Hoffman RBuddyN. - 07/20/2024 5:52 PM CST Shift Goals: Clinical Goals for the Shift: Patient will remain hemodynamically stable Identify possible barriers to meeting goals/advancing plan of care: Afib End of Shift Summary: Patient has tolerated the Afib today. His heart rates increase into the 140s with activity. Heparin drip initiated, warfarin started and Amiodarone restarted. Overall he is tolerating medications well. Nursing will continue to monitor patient. MAKER ELECTRONIC * Chasidy Hanson R.N. - 07/20/2024 7:38 AM CST Proactive Integration of Mental Health Care in Cardiovascular Disease Screening Note Chad Jensen's chart was screened by a member of the Psychiatry Proactive Consultation based ontheir history and/or current presentation. Chad Jensen is noted to have the following risk factors: Psychiatric Diagnoses (past 5 years): Unspecified anxiety disorder/anxiety Behaviors: None Psychiatric History (past 10 years): None Psychotropic Medication Use (past 5 years): Antipsychotics Psychosocial Barriers: None Psychiatry Active Problems: Active anxiety CURRENT MEDICATIONS I have reviewed the patient's current scheduled and PRN medications. Scheduled Meds: amiodarone, 100 mg, oral, Daily amLODIPine, 5 mg, oral, Daily ferrous sulfate, 65 mg of iron, oral, Every Other Day levothyroxine, 112 mcg, oral, Daily before morning meal lisinopriL, 15 mg, oral, BID magnesium chloride, 64 mg, oral, Daily before morning meal metoprolol tartrate, 37.5 mg, oral, BID pantoprazole, 40 mg, oral, Daily before morning meal posaconazole, 300 mg, oral, Daily sodium chloride, 3 mL, intravenous, Q12H SILVANO sodium chloride, 3 mL, intravenous, Q12H SILVANO tamsulosin, 0.4 mg, oral, Daily Continuous Infusions: heparin (porcine) 100 Units/mL in NaCl 0.45% 250 mL infusion, 1-30 Units/kg/hr (Dosing Weight), Last Rate: 12 Units/kg/hr (07/20/24 1243) PRN Meds: acetaminophen ALPRAZolam bisacodyL bisacodyL D5W heparin (porcine) OR heparin (porcine) NaCl 0.9% NaCl 0.9% sodium chloride sodium chloride sodium chloride sodium chloride [place] Suicide Severity Rating Scale (C-SSRS) - Short Version Based on screening, we have the following recommendations: [x] wide load escort visit [x] Discuss with primary team to better understand needs. [x] Nursing to nursing support - preventive measures and management (e.g., delirium, suicide) [] Full Psychiatry Consultation - primary team to place order [] Recommend social work consultation - primary team to place order [] Recommend pet/music therapy consultation - primary nursing to place order [] Recommend OT consultation for coping skill education/support-primary team to place order [] Recommend Section Gang Services consultation- primary nursing to place order [] Recommend social work/substance use consultation -primary team to place order [] Recommend outpatient psychiatric follow-up - primary team to place psychiatric consult order to coordinate [] No acute psychiatric intervention needed; please reach out if questions or concerns. [] Other [place] [phone] with questions. Chasidy Hanson R.N. 07/20/2024 Cosigned by Malcolm Klein M.D. at 07/22/2024 2:36 PM DIE MAKER ELECTRONIC MAKER ELECTRONIC MAKER ELECTRONIC Associated attestation - Malcolm Klein M.D. - 07/22/2024 2:36 PM DIE MAKER ELECTRONIC Freezer Unloader attestation: A member of the proactive C-L team screened the contents of the electronic medical record of Mr. Jensen using a standardized process to identify potential behavioral morbidity. I had an opportunity to review these results and concur with the findings and recommendations as documented. I did not examine Mr. Jensen in person as part of this clinical service. * Chasidy Hanson R.N. - 07/20/2024 7:24 AM CST PROACTIVE PSYCHIATRIC CONSULT TEAM Chad Jensen met screening criteria for Psychiatric Consultative Liaison nursing services. RN approached Chad Jensen to discuss the following needs, which were identified during admission chart review. Emotional support Patient presents as dysthymic. He endorses psychiatric needs or concerns. Brief Summary of encounter: Waqas was up in bed when I arrived. He was pleasant and cooperative. He talked about his 's on June 07. He stated It has been like 6 weeks, I have been so sick I haven't been able to grieve. We discussed the grieving process. He talked about his journey and the over whelming feeling of being alone. Eventually he talked about things he loved about his . Freeman is very positive and was able to find positive things in his life. He said I have had such awonderful life. I don't have the right to complain about my loneliness. We talked about how grieving is a necessary passage, but not a place to stay. We talked about him looking for the positive, Wediscussed how being in the hospital is hard because one has little control over their life. We focused on Gratitude; the practice of gratitude is most effective when used consistently. Be as specificas possible when identifying things, we are grateful for. We tend to think of the ???big?? things like family, friends, health, etc., first but breaking down gratitude to small areas of life helps us keep up with consistency and find jori in the little things. Practicing gratitude daily can rewire our brains' propensity to lean towards a more positive outlook. Freeman agreed to keep a journal of 3 things that made him happy each night for the next 3 weeks. I left him with a journal. When asked whether he would benefit from more frequent check-ins to address psychosocial needs, Chad Jensen was receptive to further support. Proactive CL service will continue to follow. Please Page Psychiatric CL [place] [phone] [place] [phone] with questions. MAKER ELECTRONIC documented in this encounter ED Notes * Arleen Galvez - 07/19/2024 12:38 PM CST SUBJECTIVE CHIEF COMPLAINT/REASON FOR VISIT Palpitations HISTORY OF PRESENT ILLNESS Patient is a 78 y.o. M presenting with palpitations. Medical history significant for longstanding paroxysmal atrial fibrillation,hypertension, rupture of chordae tendineae, mitral regurgitation, CLL, prostate cancer, salivary gland cancer, hypomagnesemia. Recently discharged for histoplasmosis pneumonia during which he had haemoptysis and required BAL (Jul 07). He has been holding his Xarelto since then. He states that he was doing a sleep study last night during which time he woke up in the middle of the night with heart rate between 110-140 and SpO2 between 87-91. He states that his episodes of Afib are rare but that we he does have them his heart rate goes into the 130s-140s and he requires cardioversion to terminate the episode. Of note he has an oedematous +4 RLE but he says this has been chronic and unchanging for the past 3years. He has had multiple workups done of this leg including an ultrasound three days ago which were all negative. History provided by: Patient glass finisher needed/used: no REVIEW OF SYSTEMS Respiratory: Positive for shortness of breath. Negative for hemoptysis. Cardiovascular: Positive for palpitations. Neurological: Negative for dizziness and light-headedness. OBJECTIVE Initial Vitals [07/19/24 1002] Temperature 36.5 ??C Pulse Rate 105 Heart Rate Resp Rate 20 Blood Pressure 114/86 SpO2 96 % Pain Score PHYSICAL EXAMINATION Cardiovascular: An irregularly irregular rhythm present. Tachycardia present. Pulses are strong andpalpable. Capillary refill: takes less than 3 seconds Pulmonary/Chest: Effort normal. ASSESSMENT/PLAN Assessment and Plan Patient is in Afib and not anticoagulated due to recent hospitalization. We will try noninvasive measures to bring heart rate down including 1L fluid, metoprolol infusion. If metoprolol infusion doesnot successfully bring his heart rate into normal range we will consider cardioversion. We will plan to consult cardiology for post cardioversion recommendations.. ED Course as of 07/19/24 1250 Olivia Jul 19, 2024 1240 Leukocytes(!): 36.9 Arleen Galvez 07/19/24 1403 Cosigned by Matthew Carlin M.D. at 07/19/2024 3:30 PM DIE MAKER ELECTRONIC MAKER ELECTRONIC MAKER ELECTRONIC * Matthew Carlin M.D. - 07/19/2024 12:35 PM CST Images from the original note were not included. Patient Name: Chad Jensen : 1945 Age: 78 y.o. Gender: male Room/Bed: [address] Date: 07/19/2024 SUBJECTIVE This is a supervisory note for the emergency department team. I have personally seen and examined the patient, and reviewed all pertinent laboratory, vital signs and imaging data. I have reviewed thehistory, physical examination, impression, report, and plan with the team in detail and agree with the documentation outlined in their notes from today. OBJECTIVE I have reviewed the current vital sign data as applicable. BP 114/86 Pulse 105 Temp 36.5 ??C (Oral) Resp 20 Wt 70.2 kg SpO2 96% BMI 22.11 kg/m?? ASSESSMENT / PLAN Chad Jensen is a 78 y.o. male who presents to the Emergency Department today due to a one day history of palpitations. Medical comorbidities are most significant for hypertension, atrial fibrillation, hypothyroidism, chronic lymphocytic leukemia, melanoma, generalized anxiety, benign prosthetic hyperplasia. On initial presentation, his blood pressure was 114/86, he was tachycardic with a heart rate of 105, respiratory was 20, oxygen saturation was 96% on room air, and they were afebrile. On exam, he was alert and oriented. His heart rate was tachycardic and irregular. His lungs were clear to auscultation bilaterally. His abdomen was soft and nontender to palpation. His extremities werewarm and well-perfused. Capillary refill was normal. Laboratory evaluation revealed anemia with a hemoglobin of 10.7, hematocrit of 34.3, normal platelet count of 277, significant leukocytosis with a white blood cell count of 36.9. Kidney function showed a normal creatinine of 0.83 with a BUN of 18, hyponatremia with a serum sodium of 132, and normalserum potassium of 4.7. Initial troponin was elevated at 32. Chest x-ray showed improved bilateral airspace and interstitial opacities with no signs of pneumothorax and only trace to small pleural effusions. His D-dimer was found to be significantly elevated at 1,273 so a follow-up CT chest angiogram was ordered. He received intravenous fluids, magnesium, and intravenous metoprolol for his atrialfibrillation with rapid ventricular response. At the end of my shift, hand-off report was given to my colleague with instructions to monitor patient, follow up on response to rate control medications, cardiology recommendations, and disposition accordingly. Diposition Vital Signs: BP 141/90 Pulse (!) 124 Temp 36.5 ??C (Oral) Resp 21 Wt 70.2 kg SpO2 94% BMI 22.11 kg/m?? Matthew Carlin M.D. Electronic Train Control Technician Freezer Unloader Department of Emergency Medicine [facility] I saw the patient with the medical student. I was present for or re-performed the History of Present Illness. I personally performed a Physical Exam and Medical Decision Making. I reviewed medical student documentation and agree or amended. ED Course as of 07/20/24518 [facility] Jul 19, 2024 1241 DX Chest AP or PA and Lateral 2 Views IMPRESSION: Improved bilateral airspace and interstitial opacities from 07/04/2024. Trace to small pleural effusions, left greater than right. No discernible pneumothorax. Stable cardiac silhouette. MitraClip. Aortic calcifications. 1242 ECG 12 Lead IMPRESSION: Atrial fibrillation with rapid ventricular response with premature ventricular or aberrantly conducted complexes Nonspecific ST and T wave abnormality When compared with ECG of 05-Jul-2024 09:27, Premature atrial complexes are now present Reviewed by DEB Goldberg Final Diagnoses: as of 07/20/24518 Atrial Fibrillation Unspecified (HCC) Matthew Carlin M.D. 07/20/24521 MAKER ELECTRONIC * Makenzie Kohli R.N. - 07/19/2024 10:05 AM CST 78yo arrives with palpitations that began last night during a sleep study. Denies chest pain. Discharged from hospital on 07/07 for pneumonia; he has been off his Xarelto since this time. Makenzie Kohli R.N. 07/19/24 1009 MAKER ELECTRONIC MAKER ELECTRONIC documented in this encounter Miscellaneous Notes * Hospital Course - Trudy Padilla P.A.-C. - 07/19/2024 9:24 PM CST Mr. Jensen is a 78-year-old gentleman admitted for further management of atrial fibrillation with RVR. He has comorbidities including but not limited to the following: Mitral regurgitation s/p ARIAS (1 XTR Mitraclip at A2/P2 for P2 flail by Dr. Echevarria, 06/28/2019), atrial fibrillation s/p ablation 2020 on Xarelto (anticoagulation currently held as discussed below), CLL on acalabrutinib, melanoma on Keytruda, prostate cancer, hypothyroidism, HTN, and GERD. Patient was recently hospitalized 06/30/2024 through 07/07/2024 for treatment of multifocal pneumonia.Initially, he was treated with broad-spectrum therapy consisting of Impinem and doxycycline then transitioned to cefepime and doxycycline. He was also administered steroids. It was decided to pursue b ronchoscopy. Patient's regimen of Xarelto was held and he was placed on heparin infusion for procedure. Infectious workup revealed positive beta D glucan as well as metapneumovirus. Bronchoscopy revealed hemorrhagic secretions within the larynx, mainstem bronchi, and trachea. Further lab work was positive for Aspergillus. Patient was initiated on posaconazole on 07/02/2024, which was to be continued for at least 3 months with outpatient follow up. Due to the hemoptysis and hemorrhagic secretionsas described above, it was recommended that anticoagulation be held for 2-3 weeks, then reassess. On 07/19/2024, patient presented to the emergency room for palpitations. ECG revealed atrial fibrillation with rapid ventricular response. There was no evidence of ST elevation. He was afebrile. Chestx-ray revealed improved bilateral airspace and interstitial opacities compared to previous. Blood work was pertinent for significant leukocytosis 36.9 and elevated D-dimer. Troponins were elevated but flat. Due to elevated D-dimer, CTA of the chest was performed which was negative for pulmonary emboli. There was also pulmonary edema with small bilateral pleural effusions, and his multifocal pneumonia had slightly improved. He was administered IV fluids, IV magnesium, and IV metoprolol with improvement of heart rates down into the low 100s. He was subsequently admitted to the Cardiology 4 service for further management and evaluation. Following admission, Mr. Jensen continued to have symptomatic persistent atrial fibrillation. Pulmonary consulted regarding safely restarting anticoagulation and felt it would be safe to resume. In order to try to pursue FRACISCO guided cardioversion day following admission, DOACs were considered, however significantly interacted with his posaconazole. Therefore, IV heparin was initiated along with transition to warfarin. He ultimately underwent FRACISCO- cardioversion on 07/23 with successful conversion to normal sinus rhythm. He was continued on metoprolol. Due to low amiodarone level at 0.4, his amiodarone was increased back to 200 mg and QTc was closely monitored given risk of lengthening QTc with concomitant amiodarone and posaconazole. will need repeat amiodarone level in 1 week. Anticoagulation was continued with warfarin, he was bridged with heparin until INR was therapeutic. He will need to remain on uninterrupted oral anticoagulation for at least 30 days following cardioversion. HRS follow up was arranged for 08/29/2024. He can discuss repeat ablation at this time. For his severe mitral regurgitation with small bilateral pleural effusions on admission, he was briefly diuresed with IV Lasix following admission. He was weaned off supplemental oxygen requirements.Diuretic was transitioned to oral prn furosemide. Dry weight 68 kg. Notably, he had been evaluated by our valvular colleagues March,, and it was felt the risk of producing mitral stenosis witha 2nd clip outweigh benefit. Infectious Disease was curbside regarding his posaconazole treatment given multiple drug to drug interactions and high cost. Ultimately, after further review of other options, they recommended to continue posaconazole with outpatient ID follow up on 08/13/2024. Mr. Jensen was discharged home on 07/29/2024 in stable condition. MAKER ELECTRONIC MAKER ELECTRONIC MAKER ELECTRONIC MAKER ELECTRONIC MAKER ELECTRONIC MAKER ELECTRONIC MAKER ELECTRONIC MAKER ELECTRONIC MAKER ELECTRONIC MAKER ELECTRONIC documented in this encounter Plan of Treatment Upcoming Encounters Date Type Department Care Team (Late st Contact Info) Description 09/24/2024 7:45 AM CDT Appointment Department of Radiology, [facility] in [place], [place] [address] [place] [phone] Julio Soto M.D. [address] [place] [phone] 09/24/2024 9:30 AM CDT Diagnostic Division of Pulmonary Medicine in [place], [place] [address] [place] [phone] Marilu Castaneda P.A.-C., M.S. [address] [place] [phone] 09/24/2024 10:40 AM CDT Appointment Department of Laboratory Medicine and Pathology, [facility] in [place], [place] [address] [place] [phone] Marilu Castaneda P.A.-C., M.S. [address] [place] [phone] 09/24/2024 2:30 PM CDT Office Visit Section of Infectious Diseases in [place], [place] [address] [place] [phone] Julio Soto M.D. [address] [place] [phone] documented as of this encounter Procedures Procedure Name Priority Date/Time Associated Diagnosis Comments PROTHROMBIN TIME (PT), P Routine 07/29/2024 9:53 AM DIE MAKER ELECTRONIC HEPARIN LEVEL ANTI-XA ASSAY, P Routine 07/29/2024 9:53 AM DIE MAKER ELECTRONIC CBC WITHOUT DIFFERENTIAL, B Routine 07/29/2024 9:53 AM DIE MAKER ELECTRONIC ECG Routine 07/29/2024 7:29 AM DIE MAKER ELECTRONIC ECG Timed 07/29/2024 1:14 AM DIE MAKER ELECTRONIC ADULT OXYGEN THERAPY Routine 07/28/2024 8:00 AM DIE MAKER ELECTRONIC ECG Routine 07/28/2024 6:50 AM DIE MAKER ELECTRONIC PROTHROMBIN TIME (PT), P Routine 07/28/2024 6:21 AM DIE MAKER ELECTRONIC HEPARIN LEVEL ANTI-XA ASSAY, P Routine 07/28/2024 6:21 AM DIE MAKER ELECTRONIC CBC WITHOUT DIFFERENTIAL, B Routine 07/28/2024 6:21 AM DIE MAKER ELECTRONIC ADULT OXYGEN THERAPY Routine 07/27/2024 8:00 PM DIE MAKER ELECTRONIC ADULT OXYGEN THERAPY Routine 07/27/2024 8:00 AM DIE MAKER ELECTRONIC ECG Routine 07/27/2024 7:28 AM DIE MAKER ELECTRONIC PROTHROMBIN TIME (PT), P Routine 07/27/2024 7:25 AM DIE MAKER ELECTRONIC HEPARIN LEVEL ANTI-XA ASSAY, P Routine 07/27/2024 7:25 AM DIE MAKER ELECTRONIC CBC WITHOUT DIFFERENTIAL, B Routine 07/27/2024 7:25 AM DIE MAKER ELECTRONIC HEPARIN LEVEL ANTI-XA ASSAY, P Timed 07/26/2024 10:37 PM DIE MAKER ELECTRONIC ADULT OXYGEN THERAPY Routine 07/26/2024 8:00 PM DIE MAKER ELECTRONIC HEPARIN LEVEL ANTI-XA ASSAY, P Timed 07/26/2024 3:37 PM DIE MAKER ELECTRONIC ECG Routine 07/26/2024 10:28 AM DIE MAKER ELECTRONIC ADULT OXYGEN THERAPY Routine 07/26/2024 8:00 AM DIE MAKER ELECTRONIC PROTHROMBIN TIME (PT), P Routine 07/26/2024 8:00 AM DIE MAKER ELECTRONIC HEPARIN LEVEL ANTI-XA ASSAY, P Routine 07/26/2024 8:00 AM DIE MAKER ELECTRONIC CBC WITHOUT DIFFERENTIAL, B Routine 07/26/2024 8:00 AM DIE MAKER ELECTRONIC BASIC METABOLIC PANEL, S/P Routine 07/26/2024 8:00 AM DIE MAKER ELECTRONIC ADULT OXYGEN THERAPY Routine 07/25/2024 8:00 PM DIE MAKER ELECTRONIC ECG Routine 07/25/2024 9:13 AM DIE MAKER ELECTRONIC PROTHROMBIN TIME (PT), P Routine 07/25/2024 8:27 AM DIE MAKER ELECTRONIC HEPARIN LEVEL ANTI-XA ASSAY, P Routine 07/25/2024 8:27 AM DIE MAKER ELECTRONIC CBC WITHOUT DIFFERENTIAL, B Routine 07/25/2024 8:27 AM DIE MAKER ELECTRONIC BASIC METABOLIC PANEL, S/P Routine 07/25/2024 8:27 AM DIE MAKER ELECTRONIC ADULT OXYGEN THERAPY Routine 07/25/2024 8:01 AM DIE MAKER ELECTRONIC ADULT OXYGEN THERAPY Routine 07/24/2024 8:01 PM DIE MAKER ELECTRONIC ADULT OXYGEN THERAPY Routine 07/24/2024 8:01 AM DIE MAKER ELECTRONIC HEPATIC FUNCTION PANEL, S Routine 07/24/2024 7:45 AM DIE MAKER ELECTRONIC PROTHROMBIN TIME (PT), P Routine 07/24/2024 7:45 AM DIE MAKER ELECTRONIC HEPARIN LEVEL ANTI-XA ASSAY, P Routine 07/24/2024 7:45 AM DIE MAKER ELECTRONIC CBC WITHOUT DIFFERENTIAL, B Routine 07/24/2024 7:45 AM DIE MAKER ELECTRONIC BASIC METABOLIC PANEL, S/P Routine 07/24/2024 7:45 AM DIE MAKER ELECTRONIC ADULT OXYGEN THERAPY Routine 07/23/2024 8:01 PM DIE MAKER ELECTRONIC ECG STAT 07/23/2024 10:27 AM DIE MAKER ELECTRONIC (FRACISCO) 2D AND LIMITED DOPPLER Routine 07/23/2024 10:02 AM DIE MAKER ELECTRONIC ADULT OXYGEN THERAPY Routine 07/23/2024 8:00 AM DIE MAKER ELECTRONIC PROTHROMBIN TIME (PT), P Routine 07/23/2024 7:06 AM DIE MAKER ELECTRONIC HEPARIN LEVEL ANTI-XA ASSAY, P Timed 07/23/2024 7:06 AM DIE MAKER ELECTRONIC CBC WITHOUT DIFFERENTIAL, B Routine 07/23/2024 7:06 AM DIE MAKER ELECTRONIC MAGNESIUM, S Routine 07/23/2024 7:06 AM DIE MAKER ELECTRONIC HEPARIN LEVEL ANTI-XA ASSAY, P Timed 07/23/2024 12:47 AM DIE MAKER ELECTRONIC ADULT OXYGEN THERAPY Routine 07/22/2024 8:00 PM DIE MAKER ELECTRONIC HEPARIN LEVEL ANTI-XA ASSAY, P Timed 07/22/2024 5:07 PM DIE MAKER ELECTRONIC ADULT OXYGEN THERAPY Routine 07/22/2024 8:00 AM DIE MAKER ELECTRONIC PROTHROMBIN TIME (PT), P Routine 07/22/2024 7:59 AM DIE MAKER ELECTRONIC HEPARIN LEVEL ANTI-XA ASSAY, P Routine 07/22/2024 7:59 AM DIE MAKER ELECTRONIC CBC WITHOUT DIFFERENTIAL, B Routine 07/22/2024 7:59 AM DIE MAKER ELECTRONIC BASIC METABOLIC PANEL, S/P Routine 07/22/2024 7:59 AM DIE MAKER ELECTRONIC ADULT OXYGEN THERAPY Routine 07/21/2024 8:01 PM DIE MAKER ELECTRONIC HEPARIN LEVEL ANTI-XA ASSAY, P Timed 07/21/2024 7:13 PM DIE MAKER ELECTRONIC HEPARIN LEVEL ANTI-XA ASSAY, P Timed 07/21/2024 11:52 AM DIE MAKER ELECTRONIC ADULT OXYGEN THERAPY Routine 07/21/2024 8:01 AM DIE MAKER ELECTRONIC AMIODARONE LEVEL, S Routine 07/21/2024 2 :43 AM DIE MAKER ELECTRONIC PROTHROMBIN TIME (PT), P Routine 07/21/2024 2:42 AM DIE MAKER ELECTRONIC HEPARIN LEVEL ANTI-XA ASSAY, P Timed 07/21/2024 2:42 AM DIE MAKER ELECTRONIC CBC WITHOUT DIFFERENTIAL, B Routine 07/21/2024 2:42 AM DIE MAKER ELECTRONIC MAGNESIUM, S Routine 07/21/2024 2:42 AM DIE MAKER ELECTRONIC BASIC METABOLIC PANEL, S/P Routine 07/21/2024 2:42 AM DIE MAKER ELECTRONIC ADULT OXYGEN THERAPY Routine 07/20/2024 8:01 PM DIE MAKER ELECTRONIC HEPARIN LEVEL ANTI-XA ASSAY, P Timed 07/20/2024 6:55 PM DIE MAKER ELECTRONIC PROTHROMBIN TIME (PT), P STAT 07/20/2024 1:07 PM DIE MAKER ELECTRONIC HEPARIN LEVEL ANTI-XA ASSAY, P STAT 07/20/2024 10:59 AM DIE MAKER ELECTRONIC ACTIVATED PARTIAL THROMBOPLASTIN TIME (APTT), P STAT 07/20/2024 10:58 AM DIE MAKER ELECTRONIC CBC WITHOUT DIFFERENTIAL, B Routine 07/20/2024 8:37 AM DIE MAKER ELECTRONIC BASIC METABOLIC PANEL, S/P Routine 07/20/2024 8:37 AM DIE MAKER ELECTRONIC ADULT OXYGEN THERAPY Routine 07/20/2024 8:01 AM DIE MAKER ELECTRONIC ADULT OXYGEN THERAPY Routine 07/19/2024 9:18 PM DIE MAKER ELECTRONIC ADULT OXYGEN THERAPY Routine 07/19/2024 9:18 PM DIE MAKER ELECTRONIC ADULT OXYGEN THERAPY Routine 07/19/2024 9:[address] CHEST ANGIOGRAM AND PULMONARY ARTERIES WITH IV CONTRAST RAD - Semiurgent (Fast; most ED patients; some inpatients) 07/19/2024 4:20 PM DIE MAKER ELECTRONIC HC URINALYSIS AUTO WO MICRO Routine 07/19/2024 2:50 PM DIE MAKER ELECTRONIC DIPSTICK, U STAT 07/19/2024 2:46 PM DIE MAKER ELECTRONIC MICROSCOPIC MANUAL STAT 07/19/2024 2: 46 PM DIE MAKER ELECTRONIC BACTERIAL CULTURE, AEROBIC + SUSC, URINE STAT 07/19/2024 2:46 PM DIE MAKER ELECTRONIC PH, U STAT 07/19/2024 2:46 PM DIE MAKER ELECTRONIC OSMOLALITY, U STAT 07/19/2024 2:46 PM DIE MAKER ELECTRONIC URINALYSIS WITH MICROSCOPIC STAT 07/19/2024 2:46 PM DIE MAKER ELECTRONIC TROPONIN T, 2H/6H REFLEX, 5TH GEN, P Timed 07/19/2024 1:07 PM DIE MAKER ELECTRONIC HC T4 FREE STAT 07/19/2024 1:07 PM DIE MAKER ELECTRONIC HEPATIC FUNCTION PANEL, S STAT 07/19/2024 1:07 PM DIE MAKER ELECTRONIC THYROID FUNCTION CASCADE, S STAT 07/19/2024 1:07 PM DIE MAKER ELECTRONIC LACTATE, POCT, B STAT 07/19/2024 1:07 PM DIE MAKER ELECTRONIC THYROPEROXIDASE (TPO) ABS, S STAT 07/19/2024 1:07 PM DIE MAKER ELECTRONIC D-DIMER, P STAT 07/19/2024 1:07 PM DIE MAKER ELECTRONIC DX CHEST AP OR PA AND LATERAL 2 VIEWS RAD - Semiurgent (Fast; most ED patients; some inpatients) 07/19/2024 10:23 AM DIE MAKER ELECTRONIC TROPONIN T, BASELINE, 5TH GEN, P STAT 07/19/2024 10:15 AM DIE MAKER ELECTRONIC GLUCOSE POCT, B STAT 07/19/2024 10:15 AM DIE MAKER ELECTRONIC PROTHROMBIN TIME (PT), P STAT 07/19/2024 10:15 AM DIE MAKER ELECTRONIC SPSMA RESULT STAT 07/19/2024 10:14 AM DIE MAKER ELECTRONIC CBC WITH DIFFERENTIAL, B STAT 07/19/2024 10:14 AM DIE MAKER ELECTRONIC MAGNESIUM, S STAT 07/19/2024 10:14 AM DIE MAKER ELECTRONIC BASIC METABOLIC PANEL, S/P STAT 07/19/2024 10:14 AM DIE MAKER ELECTRONIC ECG STAT 07/19/2024 10:05 AM DIE MAKER ELECTRONIC documented in this encounter Results * (ABNORMAL) Prothrombin Time (PT) (07/29/2024 9:53 AM DIE MAKER ELECTRONIC) Prothrombin Time, P 25.6(H) 9.4 - 12.5 sec 07/29/2024 10:51 AM DIE MAKER ELECTRONIC DTL INR 2.3 0.9 - 1.1 07/29/2024 10:51 AM DIE MAKER ELECTRONIC DTL Comment: ----ADDITIONAL INFORMATION---- Standard intensity warfarin therapeutic range: 2.0 to 3.0 High intensity warfarin therapeutic range: 2.5 to 3.5 Blood (Blood, Venous) 07/29/2024 9:53 AM DIE MAKER ELECTRONIC 07/29/2024 10:21 AM DIE MAKER ELECTRONIC us Vanessa Brown P.A.-C. LAB BLOOD ADD-ON Final Result [facility] PrintLess Plans [facility] [address] [place], [place] [address] [place] 2[facility] [address] [place] [address] * (ABNORMAL) CBC without Differential (07/29/2024 9:53 AM DIE MAKER ELECTRONIC) [facility] Hemoglobin 10.8(L) 13.2 - 16.6 g/dL 07/29/2024 10:31 AM DIE MAKER ELECTRONIC DTL Hematocrit 34.9(L) 38.3 - 48.6 % 07/29/2024 10:31 AM [employer] DTL Erythrocytes 3.76(L) 4.35 - 5.65 x10(12)/L 07/29/2024 10:31 AM [employer]RON[employer] DTL MCV 92.8 78.2 - 97.9 fL 07/29/2024 10:31 AM [employer] DTL RBC Distrib Width 17.1(H) 11.8 - 14.5 % 07/29/2024 10:31 AM [employer] DTL Platelet Count 297 135 - 317 x10(9)/L 07/29/2024 10:31 AM [employer] DTL Leukocytes 44.1(H) 3.4 - 9.6 x10(9)/L 07/29/2024 10:31 AM [employer] DTL Blood (Blood, Venous) 07/29/2024 9:53 AM [employer]RON[employer] 07/29/2024 10:21 AM [employer] Vanessa Brown P.A.-C. LAB BLOOD ADD-ON Final Result [facility] [address] [place] [address], [facility] [address] [place] [address] * Heparin Anti-Xa Assay (07/29/2024 9:53 AM D[employer]) [facility] Heparin Anti-Xa, P 0.41 IU/mL 2024 10:51 AM [employer] DTL Comment: UFH therapeutic range: 0.30-0.70 IU/mL LMWH therapeutic range: 0.50-1.00 IU/mL 0.50-1.00 IU/mL for twice daily dosing 1.00-2.00 IU/mL for once daily dosing (sample obtained 4-6 hours following subcutaneous injection) LMWH prophylactic range:0.10-0.30 IU/mL ----ADDITIONAL INFORMATION---- Heparin Anti-Xa is used to measure heparin concentrations in patients receiving low molecular weight heparin (LMWH) or unfractionated heparin (UFH). Blood (Blood, Venous) 07/29/2024 9:53 AM [employer] 07/29/2024 10:21 AM [employer] Trudy Padilla P.A.-C. LAB BLOOD NON ADD-ON Fin al Result Performing Organization Address [facility] Co de Phone Number [place] [address] [place] [address], [place] [address] * ECG 12 Lead (07/29/2024 7:29 AM [employer]) Ventricular Rate ECG/Min 60 BPM MUSE DE Interval 200 ms MUSE QRSD Interval 94 ms MUSE QT Interval 464 ms MUSE QTC Interval 464 ms MUSE P Dawson 63 degrees MUSE R Dawson 51 degrees MUSE T Wave Dawson 35 degrees MUSE 07/29/2024 7:29 AM [employer]RON[employer] 07/29/2024 7:39 AM [employer] Impressions MUSE - 07/29/2024 7:39 AM [employer]RON[employer] Normal sinus rhythm with 1st degree A-V block Otherwise normal ECG When compared with ECG of 29-Jul-2024 01:14, No significant change was found Reviewed by DEB Morrow Narrative Procedure Note Chintan Michael M.D. - 07/29/2024 IMPRESSION: Normal sinus rhythm with 1st degree A-V block Otherwise normal ECG When compared with ECG of 29-Jul-2024 01:14, No significant change was found Reviewed by DEB Morrow Vanessa Brown P.A.-C. ECG ORDERABLES Final R esult Performing Organization Address City/[facility]/ZIP Co de Phone Number MUSE NA * ECG 12 Lead (07/29/2024 1:14 AM [employer]) Ventricular Rate ECG/Min 59 BPM MUSE DE Interval 208 ms MUSE QRSD Interval 94 ms MUSE QT Interval 468 ms MUSE QTC Interval 463 ms MUSE P Dawson 73 degrees MUSE R Dawson 48 degrees MUSE T Wave Dawson 39 degrees MUSE 07/29/2024 1:14 AM [employer]RON[employer] 07/29/2024 1:22 AM [employer] Impressions MUSE - 07/29/2024 1:22 AM [employer]RON[employer] Sinus bradycardia with 1st degree A-V block Nonspecific ST abnormality When compared with ECG of 28-Jul-2024 06:50, QT has shortened Reviewed by DEB Quesada Narrative Procedure Note Chintan Michael M.D. - 07/29/2024 IMPRESSION: Sinus bradycardia with 1st degree A-V block Nonspecific ST abnormality When compared with ECG of 28-Jul-2024 06:50, QT has shortened Reviewed by DEB Quesada Aurelio Vann P.A.-C. ECG ORDERABLES Final Result MUSE NA * ECG 12 Lead (07/28/2024 6:50 AM [employer]) Ventricular Rate ECG/Min 60 BPM MUSE DE Interval 204 ms MUSE QRSD Interval 100 ms MUSE QT Interval 480 ms MUSE QTC Interval 480 ms MUSE P Dawson 63 degrees MUSE R Dawson 54 degrees MUSE T Wave Dawson 31 degrees MUSE 07/28/2024 6:50 AM [employer]RON[employer] 07/28/2024 6:55 AM [employer] Impressions MUSE - 07/28/2024 6:55 AM [employer]RONIC Normal sinus rhythm with 1st degree A-V block Prolonged QT When compared with ECG of 27-Jul-2024 07:28, QT has lengthened Reviewed by DEB Becerril Narrative Procedure Note Chintan Michael M.D. - 07/28/2024 IMPRESSION: Normal sinus rhythm with 1st degree A-V block Prolonged QT When compared with ECG of 27-Jul-2024 07:28, QT has lengthened Reviewed by DEB Becerril Vanessa Brown P.A.-C. ECG ORDERABLES Final R esult Performing Organization Address City/[facility]/ZIP Co de Phone Number MUSE NA * (ABNORMAL) Prothrombin Time (PT) (07/28/2024 6:21 AM [employer]RON[employer]) Prothrombin Time, P 20.8(H) 9.4 - 12.5 sec 07/28/2024 7:12 AM [employer]RON[employer] DTL INR 1.9 0.9 - 1.1 07/28/2024 7:12 AM [employer] DTL Comment: ----ADDITIONAL INFORMATION---- Standard intensity warfarin therapeutic range: 2.0 to 3.0 High intensity warfarin therapeutic range: 2.5 to 3.5 Blood (Blood, Venous) 07/28/2024 6:21 AM [employer]RON[employer] 07/28/2024 6:46 AM [employer]RON[employer] aVnessa Brown P.A.-C. LAB BLOOD ADD-ON Final Result Performing Organization Address City/[facility]/ZIP Co de Phone Number [facility] [address] [place] [address], [facility] DTL [facility] [address] [place] [address] * (ABNORMAL) CBC without Differential (07/28/2024 6:21 AM D[employer]RON[employer]) Hemoglobin 9.8(L) 13.2 - 16.6 g/dL 07/28/2024 7:04 AM [employer]RON[employer] DTL Hematocrit 32.3(L) 38.3 - 48.6 % 07/28/2024 7:04 AM [employer]RON[employer] DTL Erythrocytes 3.48(L) 4.35 - 5.65 x10(12)/L 07/28/2024 7:04 AM [employer] DTL MCV 92.8 78.2 - 97.9 fL 07/28/2024 7:04 AM [employer]RON[employer] DTL RBC Distrib Width 16.9(H) 11.8 - 14.5 % 07/28/2024 7:04 AM [employer]RON[employer] DTL Platelet Count 293 135 - 317 x10(9)/L 07/28/2024 7:04 AM [employer]RON[employer] DTL Leukocytes 37.8(H) 3.4 - 9.6 x10(9)/L 07/28/2024 7:04 AM [employer]RON[employer] DTL Blood (Blood, Venous) 07/28/2024 6:21 AM [employer]RONIC 07/28/2024 6:47 AM [employer] E[employer]RON[employer] Vanessa Perez-C. LAB BLOOD ADD-ON Final Result Performing Organization Address City/[facility]/ZIP Co de Phone Number [facility] [address] [place] [address] * Heparin Anti-Xa Assay (07/28/2024 6:21 AM DIE [employer]LECTRON[employer]) Pathologist [facility] Heparin Anti-Xa, P 0.36 IU/mL 2024 7:12 AM [employer]RONIC DTL Comment: UFH therapeutic range: 0.30-0.70 IU/mL LMWH therapeutic range: 0.50-1.00 IU/mL 0.50-1.00 IU/mL for twice daily dosing 1.00-2.00 IU/mL for once daily dosing (sample obtained 4-6 hours following subcutaneous injection) LMWH prophylactic range:0.10-0.30 IU/mL ----ADDITIONAL INFORMATION---- Heparin Anti-Xa is used to measure heparin concentrations in patients receiving low molecular weight heparin (LMWH) or unfractionated heparin (UFH). Blood (Blood, Venous) 07/28/2024 6:21 AM [employer]RON[employer] 07/28/2024 6:46 AM [employer]RONIC Vanessa HubbardA.-C. LAB BLOOD NON ADD-ON Fi nal Result Performing Organization Address City/[facility]/ZIP Co de Phone Number [facility] [address] DTL [facility] [address] [place] [address] * ECG 12 Lead (07/27/2024 7:28 AM D[employer]RON[employer]) Pathologist [facility] Ventricular Rate ECG/Min 60 BPM MUSE DE Interval 202 ms MUSE QRSD Interval 96 ms MUSE QT Interval 466 ms MUSE QTC Interval 466 ms MUSE P Dawson 71 degrees MUSE R Dawson 70 degrees MUSE T Wave Dawson 59 degrees MUSE 07/27/2024 7:28 AM [employer]RON[employer] 07/27/2024 9:55 AM [employer]RON[employer] Impressions MUSE - 07/27/2024 7:34 AM [employer] E[employer]RONIC Normal sinus rhythm with 1st degree A-V block Nonspecific ST and T wave abnormality When compared with ECG of 26-Jul-2024 10:28, Premature supraventricular complexes are no longer present Revised Report Narrative Procedure Note Chris Breaux M.D. - 07/27/2024 IMPRESSION: Normal sinus rhythm with 1st degree A-V block Nonspecific ST and T wave abnormality When compared with ECG of 26-Jul-2024 10:28, Premature supraventricular complexes are no longer present Revised Report Vanessa Brown P.A.-C. ECG ORDERABLES Edited Result - Final MUSE NA * Heparin Anti-Xa Assay (07/27/2024 7:25 AM D[employer]ER [employer]RONIC) Pathologist [facility] Heparin Anti-Xa, P 0.26 IU/mL 2024 8:27 AM [employer]RON[employer] DTL Comment: UFH therapeutic range: 0.30-0.70 IU/mL LMWH therapeutic range: 0.50-1.00 IU/mL 0.50-1.00 IU/mL for twice daily dosing 1.00-2.00 IU/mL for once daily dosing (sample obtained 4-6 hours following subcutaneous injection) LMWH prophylactic range:0.10-0.30 IU/mL ----ADDITIONAL INFORMATION---- Heparin Anti-Xa is used to measure heparin concentrations in patients receiving low molecular weight heparin (LMWH) or unfractionated heparin (UFH). Blood (Blood, Venous) 07/27/2024 7:25 AM [employer]RONIC 07/27/2024 7:56 AM [employer] ELECTRONIC Aurelio Vann P.A.-C. LAB BLOOD NON ADD-ON Final Result Performing Organization Address [facility] de Phone Number [facility] [address] [facility] [place]note 2[facility] [address] [place] [address] * (ABNORMAL) Prothrombin Time (PT) (07/27/2024 7:25 AM DIE [employer]ER [employer]RONIC) Pathologist [facility] Prothrombin Time, P 18.1(H) 9.4 - 12.5 sec 07/27/2024 8:27 AM D[employer]ER E[employer]RON[employer] DTL INR 1.6 0.9 - 1.1 07/27/2024 8:27 AM [employer]ER [employer]RON[employer] DTL Comment: ----ADDITIONAL INFORMATION---- Standard intensity warfarin therapeutic range: 2.0 to 3.0 High intensity warfarin therapeutic range: 2.5 to 3.5 Blood (Blood, Venous) 07/27/2024 7:25 AM [employer]ER E[employer]RONIC 07/27/2024 7:56 AM D[employer]ER E[employer]RONIC Vanessa Brown P.A.-C. LAB BLOOD ADD-ON Final Result Performing Organization Address [facility] de Phone Number [facility] [address] [place] [address], [facility] [place]note 2[facility] [address] [place] [address] * (ABNORMAL) CBC without Differential (07/27/2024 7:25 AM DIE [employer]KER ELECTRONIC) Pathologist [facility] Hemoglobin 9.7(L) 13.2 - 16.6 g/dL 07/27/2024 8:36 AM [employer]ER E[employer]RON[employer] DTL Hematocrit 31.0(L) 38.3 - 48.6 % 07/27/2024 8:36 AM [employer] E[employer]RON[employer] DTL Erythrocytes 3.33(L) 4.35 - 5.65 x10(12)/L 07/27/2024 8:36 AM D[employer]RON[employer] DTL MCV 93.1 78.2 - 97.9 fL 07/27/2024 8:36 AM D[employer]KER ELECTRONIC DTL RBC Distrib Width 16.8(H) 11.8 - 14.5 % 07/27/2024 8:36 AM D[employer]ER ELECTRONIC DTL Platelet Count 288 135 - 317 x10(9)/L 07/27/2024 8:36 AM [employer] E[employer]RON[employer] DTL Leukocytes 34.3(H) 3.4 - 9.6 x10(9)/L 07/27/2024 8:36 AM D[employer]ER E[employer]RONIC DTL Blood (Blood, Venous) 07/27/2024 7:25 AM D[employer]ER [employer]RONIC 07/27/2024 7:57 AM D[employer] MAKER ELECTRONIC us Vanessa Brown P.A.-C. LAB BLOOD [place] [address], [facility] [place] [address] * Heparin Anti-Xa Assay (07/26/2024 10:37 PM DIE MAKER ELECTRONIC) [facility] Heparin Anti-Xa, P 0.31 IU/mL 2024 11:36 PM [employer]ER E[employer]RONIC DTL Comment: UFH therapeutic range: 0.30-0.70 IU/mL LMWH therapeutic range: 0.50-1.00 IU/mL 0.50-1.00 IU/mL for twice daily dosing 1.00-2.00 IU/mL for once daily dosing (sample obtained 4-6 hours following subcutaneous injection) LMWH prophylactic range:0.10-0.30 IU/mL ----ADDITIONAL INFORMATION---- Heparin Anti-Xa is used to measure heparin concentrations in patients receiving low molecular weight heparin (LMWH) or unfractionated heparin (UFH). Blood (Blood, Venous) 07/26/2024 10:37 PM [employer]ER E[employer]RONIC 07/26/2024 10:59 PM D[employer]KER ELECTRONIC us Vanessa GrimesC. LAB BLOOD NON ADD-ON Fi nal Result [facility] [address] [place] [address] * Heparin Anti-Xa Assay (07/26/2024 3:37 PM D[employer]ER ELECTRONIC) Heparin Anti-Xa, P 0.38 IU/mL 2024 4:21 PM D[employer] MAKER ELECTRONIC DT Comment: UFH therapeutic range: 0.30-0.70 IU/mL LMWH therapeutic range: 0.50-1.00 IU/mL 0.50-1.00 IU/mL for twice daily dosing 1.00-2.00 IU/mL for once daily dosing (sample obtained 4-6 hours following subcutaneous injection) LMWH prophylactic range:0.10-0.30 IU/mL ----ADDITIONAL INFORMATION---- Heparin Anti-Xa is used to measure heparin concentrations in patients receiving low molecular weight heparin (LMWH) or unfractionated heparin (UFH). Blood (Blood, Venous) 07/26/2024 3:37 PM [employer]ER [employer]RONIC 07/26/2024 4:01 PM [employer]ER ELECTRONIC Vanessa Brown P.A.-C. LAB BLOOD NON ADD-ON Fi nal Result Performing Organization Address City/[facility]/ZIP Co de Phone Number [facility] [address] [place] [address], [facility] [address] [place] [address] * ECG 12 Lead (07/26/2024 10:28 AM DIE [employer]KER E[employer]RONIC) Ventricular Rate ECG/Min 59 BPM MUSE DE Interval 194 ms MUSE QRSD Interval 100 ms MUSE QT Interval 462 ms MUSE QTC Interval 457 ms MUSE P Dawson 60 degrees MUSE R Dawson 49 degrees MUSE T Wave Dawson 51 degrees MUSE 07/26/2024 10:2 8 AM D[employer]ER ELECTRONIC 07/26/2024 10:37 AM D[employer]KER ELECTRONIC Impressions MUSE - 07/26/2024 10:37 AM D[employer]KER ELECTRONIC Sinus bradycardia Premature supraventricular complexes T wave abnormality, consider anterior ischemia When compared with ECG of 25-Jul-2024 09:13, Premature supraventricular complexes are now present DE interval has decreased QT has shortened Reviewed by DEB Jesus Narrative Procedure Note Sudeep Morse Jr., M.D. - 07/26/2024 IMPRESSION: Sinus bradycardia Premature supraventricular complexes T wave abnormality, consider anterior ischemia When compared with ECG of 25-Jul-2024 09:13, Premature supraventricular complexes are now present DE interval has decreased QT has shortened Reviewed by DEB Jesus us Vanessa Brown P.A.-C. ECG ORDERABLES Final R esult MUSE NA * (ABNORMAL) Basic Metabolic Panel (07/26/2024 8:00 AM DIE [employer]ER E[employer]RONIC) Potassium, S 4.5 3.6 - 5.2 mmol/L 07/26/2024 9:23 AM D[employer]ER E[employer]RONIC DTL Sodium, S 140 135 - 145 mmol/L 07/26/2024 9:23 AM D[employer]KER ELECTRONIC DTL Chloride, S 105 98 - 107 mmol/L 07/26/2024 9:23 AM D[employer]KER ELECTRONIC DTL Bicarbonate, S 23 22 - 29 mmol/L 07/26/2024 9:23 AM D[employer]KER ELECTRONIC DTL Anion Gap 12 7 - 15 07/26/2024 9:23 AM D[employer]KER ELECTRONIC DTL BUN (Blood Urea Nitrogen), S 13 8 - 24 mg/dL 07/26/2024 9:23 AM D[employer]KER ELECTRONIC DTL Creatinine 1.00 0.74 - 1.35 mg/dL 07/26/2024 9:23 AM D[employer]ER ELECTRON[employer] DTL Estimated GFR (eGFR) 77 >=60 mL/min/BSA 07/26/2024 9:23 AM D[employer]KER [employer]RON[employer] DTL Comment: Estimated GFR calculated using the 2020 CKD_EPI creatinine equation. Calcium, Total, S 8.4(L) 8.8 - 10.2 mg/dL 07/26/2024 9:23 AM D[employer]ER [employer]RON[employer] DTL Glucose, S 87 70 - 140 mg/dL 07/26/2024 9:23 AM D[employer]KER ELECTRONIC DTL Blood (Blood, Venous) 07/26/2024 8:00 AM D[employer]ER ELECTRONIC 07/26/2024 8:58 AM D[employer] MAKER ELECTRONIC Vanessa Brown P.A.-C. LAB BLOOD ADD-ON Final Result Performing Organization Address [facility] de Phone Number [facility] [address] [facility] [place][note 2] [address] [place] [address] * (ABNORMAL) Prothrombin Time (PT) (07/26/2024 8:00 AM DIE MAKER ELECTRONIC) Prothrombin Time, P 14.9(H) 9.4 - 12.5 sec 07/26/2024 9:13 AM DIE MAKER ELECTRONIC DTL INR 1.4 0.9 - 1.1 07/26/2024 9:13 AM D[employer]KER ELECTRONIC DTL Comment: ----ADDITIONAL INFORMATION---- Standard intensity warfarin therapeutic range: 2.0 to 3.0 High intensity warfarin therapeutic range: 2.5 to 3.5 Blood (Blood, Venous) 07/26/2024 8:00 AM DIE MAKER ELECTRONIC 07/26/2024 8:40 AM DIE MAKER ELECTRONIC Harpal Hodges P.A.-C. LAB BLOOD ADD-ON Final Result Performing Organization Address [facility] de Phone Number [facility] [address] [place] [address], [facility] [place]note 2] [address] [place] [address] * (ABNORMAL) CBC without Differential (07/26/2024 8:00 AM DIE MAKER ELECTRONIC) Hemoglobin 10.3(L) 13.2 - 16.6 g/dL 07/26/2024 9:19 AM DIE MAKER ELECTRONIC DTL Hematocrit 32.9(L) 38.3 - 48.6 % 07/26/2024 9:19 AM D[employer]KER ELECTRONIC DTL Erythrocytes 3.55(L) 4.35 - 5.65 x10(12)/L 07/26/2024 9:19 AM DIE MAKER ELECTRONIC DTL MCV 92.7 78.2 - 97.9 fL 07/26/2024 9:19 AM D[employer]KER ELECTRONIC DTL RBC Distrib Width 16.7(H) 11.8 - 14.5 % 07/26/2024 9:19 AM D[employer]KER ELECTRONIC DTL Platelet Count 315 135 - 317 x10(9)/L 07/26/2024 9:19 AM DIE MAKER ELECTRONIC DTL Leukocytes 36.2(H) 3.4 - 9.6 x10(9)/L 07/26/2024 9:19 AM D[employer]KER ELECTRONIC DTL Blood (Blood, Venous) 07/26/2024 8:00 AM D[employer]KER ELECTRONIC 07/26/2024 8:40 AM DIE [employer]KER ELECTRONIC Harpal Hodges P.A.-C. LAB BLOOD ADD-ON Final Result [place] [address] [facility] [place]note 2] [address] [place] [address] * Heparin Anti-Xa Assay (07/26/2024 8:00 AM DIE MAKER ELECTRONIC) [facility] Heparin Anti-Xa, P 0.52 IU/mL 2024 9:13 AM D[employer] MAKER ELECTRONIC DTL Comment: UFH therapeutic range: 0.30-0.70 IU/mL LMWH therapeutic range: 0.50-1.00 IU/mL 0.50-1.00 IU/mL for twice daily dosing 1.00-2.00 IU/mL for once daily dosing (sample obtained 4-6 hours following subcutaneous injection) LMWH prophylactic range:0.10-0.30 IU/mL ----ADDITIONAL INFORMATION---- Heparin Anti-Xa is used to measure heparin concentrations in patients receiving low molecular weight heparin (LMWH) or unfractionated heparin (UFH). Blood (Blood, Venous) 07/26/2024 8:00 AM D[employer]KER ELECTRONIC 07/26/2024 8:40 AM DIE MAKER ELECTRONIC us Vanessa L Shopnitz P.A.-C. LAB BLOOD NON ADD-ON Fi nal Result Performing Organization Address [facility] de Phone Number [facility] [address] [place] [address], [place] DTL [facility] [address] [place] [address] * ECG 12 Lead (07/25/2024 9:13 AM DIE MAKER ELECTRONIC) Ventricular Rate ECG/Min 62 BPM MUSE DE Interval 206 ms MUSE QRSD Interval 98 ms MUSE QT Interval 464 ms MUSE QTC Interval 470 ms MUSE P Dawson 73 degrees MUSE R Dawson 54 degrees MUSE T Wave Dawson 34 degrees MUSE 07/25/2024 9:13 AM DIE MAKER ELECTRONIC 07/25/2024 9:22 AM DIE MAKER ELECTRONIC Impressions MUSE - 07/25/2024 9:22 AM DIE MAKER ELECTRONIC Sinus rhythm with 1st degree A-V block Nonspecific ST and T wave abnormality Prolonged QT When compared with ECG of 23-Jul-2024 10:27, QT has lengthened Reviewed by DEB Jordan Narrative Procedure Note Sudeep Morse Jr., M.D. - 07/25/2024 IMPRESSION: Sinus rhythm with 1st degree A-V block Nonspecific ST and T wave abnormality Prolonged QT When compared with ECG of 23-Jul-2024 10:27, QT has lengthened Reviewed by DEB Jordan Vanessa Brown P.A.-C. ECG ORDERABLES Final R esult Performing Organization Address [facility] Co de Phone Number MUSE NA * (ABNORMAL) Basic Metabolic Panel (07/25/2024 8:27 AM DIE MAKER ELECTRONIC) Potassium, S 4.4 3.6 - 5.2 mmol/L 07/25/2024 9:49 AM DIE MAKER ELECTRONIC DTL Sodium, S 138 135 - 145 mmol/L 07/25/2024 9:49 AM DIE MAKER ELECTRONIC DTL Chloride, S 104 98 - 107 mmol/L 07/25/2024 9:49 AM DIE MAKER ELECTRONIC DTL Bicarbonate, S 24 22 - 29 mmol/L 07/25/2024 9:49 AM DIE MAKER ELECTRONIC DTL Anion Gap 10 7 - 15 07/25/2024 9:49 AM DIE MAKER ELECTRONIC DTL BUN (Blood Urea Nitrogen), S 14 8 - 24 mg/dL 07/25/2024 9:49 AM DIE MAKER ELECTRONIC DTL Creatinine 0.93 0.74 - 1.35 mg/dL 07/25/2024 9:49 AM DIE MAKER ELECTRONIC DTL Estimated GFR (eGFR) 84 >=60 mL/min/BSA 07/25/2024 9:49 AM DIE MAKER ELECTRONIC DTL Comment: Estimated GFR calculated using the 2020 CKD_EPI creatinine equation. Calcium, Total, S 8.3(L) 8.8 - 10.2 mg/dL 07/25/2024 9:49 AM DIE MAKER ELECTRONIC DTL Glucose, S 88 70 - 140 mg/dL 07/25/2024 9:49 AM DIE MAKER ELECTRONIC DTL Blood (Blood, Venous) 07/25/2024 8:27 AM DIE MAKER ELECTRONIC 07/25/2024 9:10 AM DIE MAKER ELECTRONIC us Vanessa Brown P.A.-C. LAB BLOOD ADD-ON Final Result Performing Organization Address [facility] [place] [address], [facility] [place] [address] * Prothrombin Time (PT) (07/25/2024 8:27 AM DIE MAKER ELECTRONIC) Prothrombin Time, P 12.2 9.4 - 12.5 sec 07/25/2024 9:29 AM DIE MAKER ELECTRONIC DTL INR 1.1 0.9 - 1.1 07/25/2024 9:29 AM DIE MAKER ELECTRONIC DTL Comment: ----ADDITIONAL INFORMATION---- Standard intensity warfarin therapeutic range: 2.0 to 3.0 High intensity warfarin therapeutic range: 2.5 to 3.5 Blood (Blood, Venous) 07/25/2024 8:27 AM DIE MAKER ELECTRONIC 07/25/2024 8:58 AM DIE MAKER ELECTRONIC us Harpal Hodges P.A.-C. LAB BLOOD ADD-ON Final Result Performing Organization Address City/[facility]/ZIP Co de Phone Number [facility] [address] [place] [address], [facility] [place][note 2] [address] [place] [address] * (ABNORMAL) CBC without Differential (07/25/2024 8:27 AM DIE MAKER ELECTRONIC) [facility] Hemoglobin 10.0(L) 13.2 - 16.6 g/dL 07/25/2024 9:41 AM DIE MAKER ELECTRONIC DTL Hematocrit 32.8(L) 38.3 - 48.6 % 07/25/2024 9:41 AM DIE MAKER ELECTRONIC DTL Erythrocytes 3.52(L) 4.35 - 5.65 x10(12)/L 07/25/2024 9:41 AM DIE MAKER ELECTRONIC DTL MCV 93.2 78.2 - 97.9 fL 07/25/2024 9:41 AM DIE MAKER ELECTRONIC DTL RBC Distrib Width 16.7(H) 11.8 - 14.5 % 07/25/2024 9:41 AM DIE MAKER ELECTRONIC DTL Platelet Count 302 135 - 317 x10(9)/L 07/25/2024 9:41 AM DIE MAKER ELECTRONIC DTL Leukocytes 32.0(H) 3.4 - 9.6 x10(9)/L 07/25/2024 9:41 AM DIE MAKER ELECTRONIC DTL Blood (Blood, Venous) 07/25/2024 8:27 AM D[employer]KER ELECTRONIC 07/25/2024 8:57 AM DIE MAKER ELECTRONIC Harpal Hodges P.A.-C. LAB BLOOD ADD-ON Final Result Performing Organization Address City/[facility]/ZIP Co de Phone Number [facility] [address] [place] [address], [facility] [place]note 2] [address] [place] [address] * Heparin Anti-Xa Assay (07/25/2024 8:27 AM DIE MAKER ELECTRONIC) [facility] Heparin Anti-Xa, P 0.49 IU/mL 2024 9:29 AM DIE MAKER ELECTRONIC DTL Comment: UFH therapeutic range: 0.30-0.70 IU/mL LMWH therapeutic range: 0.50-1.00 IU/mL 0.50-1.00 IU/mL for twice daily dosing 1.00-2.00 IU/mL for once daily dosing (sample obtained 4-6 hours following subcutaneous injection) LMWH prophylactic range:0.10-0.30 IU/mL ----ADDITIONAL INFORMATION---- Heparin Anti-Xa is used to measure heparin concentrations in patients receiving low molecular weight heparin (LMWH) or unfractionated heparin (UFH). Blood (Blood, Venous) 07/25/2024 8:27 AM DIE [employer]KER ELECTRONIC 07/25/2024 8:58 AM DIE MAKER ELECTRONIC us Vanessa Brown P.A.-C. LAB BLOOD NON ADD-ON Fi nal Result [facility] [address] [place] [address], [facility] [address] [address] * (ABNORMAL) Basic Metabolic Panel (07/24/2024 7:45 AM DIE MAKER ELECTRONIC) [facility] Potassium, S 4.2 3.6 - 5.2 mmol/L 07/24/2024 10:35 AM DIE MAKER ELECTRONIC DTL Sodium, S 138 135 - 145 mmol/L 07/24/2024 10:35 AM DIE MAKER ELECTRONIC DTL Chloride, S 103 98 - 107 mmol/L 07/24/2024 10:35 AM DIE MAKER ELECTRONIC DTL Bicarbonate, S 23 22 - 29 mmol/L 07/24/2024 10:35 AM DIE MAKER ELECTRONIC DTL Anion Gap 12 7 - 15 07/24/2024 10:35 AM DIE MAKER ELECTRONIC DTL BUN (Blood Urea Nitrogen), S 19 8 - 24 mg/dL 07/24/2024 10:35 AM DIE MAKER ELECTRONIC DTL Creatinine 0.98 0.74 - 1.35 mg/dL 07/24/2024 10:35 AM DIE MAKER ELECTRONIC DTL Estimated GFR (eGFR) 79 >=60 mL/min/BSA 07/24/2024 10:35 AM DIE MAKER ELECTRONIC DTL Comment: Estimated GFR calculated using the 2020 CKD_EPI creatinine equation. Calcium, Total, S 8.1(L) 8.8 - 10.2 mg/dL 07/24/2024 10:35 AM DIE MAKER ELECTRONIC DTL Glucose, S 92 70 - 140 mg/dL 07/24/2024 10:35 AM DIE MAKER ELECTRONIC DTL Blood (Blood, Venous) 07/24/2024 7:45 AM DIE MAKER ELECTRONIC 07/24/2024 8:46 AM DIE MAKER ELECTRONIC Vanessa Brown P.A.-C. LAB BLOOD ADD-ON Final Result Performing Organization Address [facility] [place] Center/[facility] Co de Phone Number [facility] [address] [facility] [place]note 2[facility] 200 [place] [address] * Prothrombin Time (PT) (07/24/2024 7:45 AM DIE MAKER ELECTRONIC) Pathologist [facility] Prothrombin Time, P 12.1 9.4 - 12.5 sec 07/24/2024 8:58 AM DIE MAKER ELECTRONIC DTL INR 1.1 0.9 - 1.1 07/24/2024 8:58 AM DIE MAKER ELECTRONIC DTL Comment: ----ADDITIONAL INFORMATION---- Standard intensity warfarin therapeutic range: 2.0 to 3.0 High intensity warfarin therapeutic range: 2.5 to 3.5 Blood (Blood, Venous) 07/24/2024 7:45 AM DIE MAKER ELECTRONIC 07/24/2024 8:28 AM DIE MAKER ELECTRONIC Harpal Hodges P.A.-C. LAB BLOOD ADD-ON Final Result Performing Organization Address [facility] Co de Phone Number [facility] [address] [place] [address], [facility] DTL [facility] [address] [place] [address] * (ABNORMAL) CBC without Differential (07/24/2024 7:45 AM DIE MAKER ELECTRONIC) Pathologist [facility] Hemoglobin 9.7(L) 13.2 - 16.6 g/dL 07/24/2024 8:48 AM DIE MAKER ELECTRONIC DTL Hematocrit 30.5(L) 38.3 - 48.6 % 07/24/2024 8:48 AM DIE MAKER ELECTRONIC DTL Erythrocytes 3.31(L) 4.35 - 5.65 x10(12)/L 07/24/2024 8:48 AM DIE MAKER ELECTRONIC DTL MCV 92.1 78.2 - 97.9 fL 07/24/2024 8:48 AM DIE MAKER ELECTRONIC DTL RBC Distrib Width 16.6(H) 11.8 - 14.5 % 07/24/2024 8:48 AM DIE MAKER ELECTRONIC DTL Platelet Count 281 135 - 317 x10(9)/L 07/24/2024 8:48 AM DIE MAKER ELECTRONIC DTL Leukocytes 27.6(H) 3.4 - 9.6 x10(9)/L 07/24/2024 8:48 AM DIE MAKER ELECTRONIC DTL Blood (Blood, Venous) 07/24/2024 7:45 AM DIE MAKER ELECTRONIC 07/24/2024 8:28 AM DIE MAKER ELECTRONIC us Harpal Hodges P.A.-C. LAB BLOOD ADD-ON Final Result [facility] [address] [place] [address], [facility] [place] 2[facility] [address] [place] [address] * (ABNORMAL) Hepatic Function Panel (07/24/2024 7:45 AM DIE MAKER ELECTRONIC) Bilirubin, Total, S 0.9 0.0 - 1.2 mg/dL 07/24/2024 10:35 AM DIE MAKER ELECTRONIC DTL Bilirubin, Direct, S 0.4(H) 0.0 - 0.3 mg/dL 07/24/2024 10:35 AM DIE MAKER ELECTRONIC DTL Aspartate Aminotransferase (AST), S 32 8 - 48 U/L 07/24/2024 10:35 AM DIE MAKER ELECTRONIC DTL Alanine Aminotransferase (ALT), S 14 7 - 55 U/L 07/24/2024 10:35 AM DIE MAKER ELECTRONIC DTL Alkaline Phosphatase, S 81 40 - 129 U/L 07/24/2024 10:35 AM DIE MAKER ELECTRONIC DTL Albumin, S 3.2(L) 3.5 - 5.0 g/dL 07/24/2024 10:35 AM DIE MAKER ELECTRONIC DTL Protein, Total, S 4.6(L) 6.3 - 7.9 g/dL 07/24/2024 10:35 AM DIE MAKER ELECTRONIC DTL Blood (Blood, Venous) 07/24/2024 7:45 AM DIE MAKER ELECTRONIC 07/24/2024 8:46 AM DIE MAKER ELECTRONIC Vanessa Perez-C. LAB BLOOD ADD-ON Final Result Performing Organization Address City/[facility] Co de Phone Number [facility] [address] 200 [place] [address] * Heparin Anti-Xa Assay (07/24/2024 7:45 AM DIE MAKER ELECTRONIC) Heparin Anti-Xa, P 0.49 IU/mL 2024 8:58 AM DIE MAKER ELECTRONIC DT Comment: UFH therapeutic range: 0.30-0.70 IU/mL LMWH therapeutic range: 0.50-1.00 IU/mL 0.50-1.00 IU/mL for twice daily dosing 1.00-2.00 IU/mL for once daily dosing (sample obtained 4-6 hours following subcutaneous injection) LMWH prophylactic range:0.10-0.30 IU/mL ----ADDITIONAL INFORMATION---- Heparin Anti-Xa is used to measure heparin concentrations in patients receiving low molecular weight heparin (LMWH) or unfractionated heparin (UFH). Blood (Blood, Venous) 07/24/2024 7:45 AM DIE MAKER ELECTRONIC 07/24/2024 8:28 AM DIE MAKER ELECTRONIC Vanessa Perez-C. LAB BLOOD NON ADD-ON Fi nal Result Performing Organization Address City/[facility]/ZIP Co de Phone Number [facility] [address] [place] [address], [facility] 200 [place] [address] * ECG 12 Lead (07/23/2024 10:27 AM DIE MAKER ELECTRONIC) Ventricular Rate ECG/Min 62 BPM MUSE DE Interval 246 ms MUSE QRSD Interval 92 ms MUSE QT Interval 450 ms MUSE QTC Interval 456 ms MUSE P Dawson 64 degrees MUSE R Dawson 49 degrees MUSE T Wave Dawson 33 degrees MUSE 07/23/2024 10:2 7 AM DIE MAKER ELECTRONIC 07/23/2024 10:30 AM DIE MAKER ELECTRONIC Impressions MUSE - 07/23/2024 10:30 AM DIE MAKER ELECTRONIC Sinus rhythm with 1st degree A-V block T wave abnormality, consider anterior ischemia When compared with ECG of 19-Jul-2024 10:05, Significant changes have occurred Reviewed by DEB Becerril Narrative Procedure Note Huang Rivera M.D., M.P.H. - 07/23/2024 IMPRESSION: Sinus rhythm with 1st degree A-V block T wave abnormality, consider anterior ischemia When compared with ECG of 19-Jul-2024 10:05, Significant changes have occurred Reviewed by DEB Becerril Vanessa Brown P.A.-C. ECG ORDERABLES Final R esult MUSE NA * (FRACISCO) 2D AND LIMITED DOPPLER (07/23/2024 10:02 AM DIE MAKER ELECTRONIC) [facility] Ejection Fraction 55 CV EIMS Mallampati As documented in the RN pre-procedure assessment CV EIMS ASA Class IV CV EIMS Echo H and P 07/23/2024 09:29 [facility] EIMS Anatomical Region Laterality Modality Cardiac Electrop hysiology 07/23/2024 8:17 AM DIE MAKER ELECTRONIC Impressions 07/23/2024 6:22 PM DIE MAKER ELECTRONIC PRE-SEDATION ASSESSMENT & CONSENT (performed immediately prior [...] documented in the medical record and the benzol operator. The physician independently performed a pertinent examination [...] IV. Transesophageal echocardiogram performed by the physician community service officer(s), as listed in this report. LEFT VENTRICLE:Mildly [...] performed during sedation. Tiny anterior pericardial effusion. [id number]-jt-[id number] shunt at atrial level. PROCEDURE:Transesophageal echocardiogram performed at the request of the primary service captain. Adult probe inserted without difficulty. See Sedation Narrator or other pertinent record in [facility] for additional procedure and sedation information. Transesophageal echocardiogram completed without complications. Transgastric images acquired. CARDIOVERSION:Successful cardioversion with 120 joules after 1 attempt(s). For the complete report, see the Order-Level Documents. Narrative 07/23/2024 6:22 PM DIE MAKER ELECTRONIC For the complete report, see the Order-Level [...] 6. No regional wall motion abnormalities. 7. Nghg-fk-[id number] shunt at atrial level , small, continuous. [...] 6. No regional wall motion abnormalities. 7. Lvxa-kk-stepa shunt at atrial level , small, continuous. [...] documented in the medical record and the benzol operator. Thephysician independently performed a pertinent examination including aheart, airway, and lung assessment prior to the start of the procedure.The patient history and physical were deemed satisfactory to proceed withthe planned level of sedation. Mallampati Assessment: As documented in theRN pre-procedure assessment. Sedation Plan: Transesophageal echo -moderate sedation. ASA physical status score: Class IV. Transesophagealechocardiogram performed by the physician community service officer(s), as listedin this report. LEFT VENTRICLE:Mildly enlarged [...] injection(s) performed duringsedation. Tiny anterior pericardial effusion. Vpnq-fu-oycwr shunt atatrial level. PROCEDURE:Transesophageal echocardiogram performed at the request of theprimary service captain. Adult probe inserted without difficulty. SeeSedation Narrator or other pertinent record in [facility] for additionalprocedure and sedation information. Transesophageal echocardiogramcompleted without complications. Transgastric images acquired. CARDIOVERSION:Successful cardioversion with 120 joules after 1attempt(s). For the complete report, see the Order-Level Documents. us Harpal Hodges P.A.-C. CV ECHO PROCEDURES Fin al Result * Heparin Anti-Xa Assay (07/23/2024 7:06 AM DIE MAKER ELECTRONIC) Heparin Anti-Xa, P 0.41 IU/mL 2024 8:16 AM DIE MAKER ELECTRONIC DTL Comment: UFH therapeutic range: 0.30-0.70 IU/mL LMWH therapeutic range: 0.50-1.00 IU/mL 0.50-1.00 IU/mL for twice daily dosing 1.00-2.00 IU/mL for once daily dosing (sample obtained 4-6 hours following subcutaneous injection) LMWH prophylactic range:0.10-0.30 IU/mL ----ADDITIONAL INFORMATION---- Heparin Anti-Xa is used to measure heparin concentrations in patients receiving low molecular weight heparin (LMWH) or unfractionated heparin (UFH). Blood (Blood, Venous) 07/23/2024 7:06 AM DIE MAKER ELECTRONIC 07/23/2024 7:47 AM DIE MAKER ELECTRONIC Jun Shipley M.D. LAB BLOOD NON ADD-ON Final Re sult Performing Organization Address [facility] de Phone Number [address] [place] [address] * Prothrombin Time (PT) (07/23/2024 7:06 AM DIE MAKER ELECTRONIC) Prothrombin Time, P 12.0 9.4 - 12.5 sec 07/23/2024 8:19 AM DIE MAKER ELECTRONIC DT INR 1.1 0.9 - 1.1 07/23/2024 8:19 AM DIE MAKER ELECTRONIC DTL Comment: ----ADDITIONAL INFORMATION---- Standard intensity warfarin therapeutic range: 2.0 to 3.0 High intensity warfarin therapeutic range: 2.5 to 3.5 Blood (Blood, Venous) 07/23/2024 7:06 AM DIE MAKER ELECTRONIC 07/23/2024 7:47 AM DIE MAKER ELECTRONIC Harpal Hodges P.A.-C. LAB BLOOD ADD-ON Final Result Performing Organization Address [facility] Co de Phone Number [address] [place] [address] * (ABNORMAL) CBC without Differential (07/23/2024 7:06 AM DIE MAKER ELECTRONIC) Hemoglobin 10.2(L) 13.2 - 16.6 g/dL 07/23/2024 8:17 AM DIE MAKER ELECTRONIC DTL Hematocrit 32.0(L) 38.3 - 48.6 % 07/23/2024 8:17 AM DIE MAKER ELECTRONIC DTL Erythrocytes 3.51(L) 4.35 - 5.65 x10(12)/L 07/23/2024 8:17 AM DIE MAKER ELECTRONIC DTL MCV 91.2 78.2 - 97.9 fL 07/23/2024 8:17 AM DIE MAKER ELECTRONIC DTL RBC Distrib Width 16.6(H) 11.8 - 14.5 % 07/23/2024 8:17 AM DIE MAKER ELECTRONIC DTL Platelet Count 280 135 - 317 x10(9)/L 07/23/2024 8:17 AM DIE MAKER ELECTRONIC DTL Leukocytes 27.8(H) 3.4 - 9.6 x10(9)/L 07/23/2024 8:17 AM DIE MAKER ELECTRONIC DTL Blood (Blood, Venous) 07/23/2024 7:06 AM DIE MAKER ELECTRONIC 07/23/2024 7:49 AM DIE MAKER ELECTRONIC us Harpal Hodges P.A.-C. LAB BLOOD ADD-ON Final Result Performing Organization Address City/[facility]/ZIP Co de Phone Number [facility] [address] [place] [address], [facility] [place]note 2] 200 [place] [address] * Magnesium (07/23/2024 7:06 AM DIE MAKER ELECTRONIC) Magnesium, S 1.9 1.7 - 2.3 mg/dL 07/23/2024 8:18 AM DIE MAKER ELECTRONIC DTL Blood (Blood, Venous) 07/23/2024 7:06 AM DIE MAKER ELECTRONIC 07/23/2024 8:00 AM DIE MAKER ELECTRONIC us Ulices Jiménez P.A.-C. LAB BLOOD ADD-ON Final Resul t [facility] [address] [place] [address], [facility] [place]note 2] 200 [place] [address] * Heparin Anti-Xa Assay (07/23/2024 12:47 AM DIE MAKER ELECTRONIC) Heparin Anti-Xa, P 0.41 IU/mL 2024 1:30 AM DIE MAKER ELECTRONIC DTL Comment: UFH therapeutic range: 0.30-0.70 IU/mL LMWH therapeutic range: 0.50-1.00 IU/mL 0.50-1.00 IU/mL for twice daily dosing 1.00-2.00 IU/mL for once daily dosing (sample obtained 4-6 hours following subcutaneous injection) LMWH prophylactic range:0.10-0.30 IU/mL ----ADDITIONAL INFORMATION---- Heparin Anti-Xa is used to measure heparin concentrations in patients receiving low molecular weight heparin (LMWH) or unfractionated heparin (UFH). Blood (Blood, Venous) 07/23/2024 12:47 AM DIE MAKER ELECTRONIC 07/23/2024 1:06 AM DIE MAKER ELECTRONIC Ulices Jiménez P.A.-C. LAB BLOOD NON ADD-ON Final R esult [facility] [address] [place] [address], [facility] 200 [place] [address] * Heparin Anti-Xa Assay (07/22/2024 5:07 PM DIE MAKER ELECTRONIC) Heparin Anti-Xa, P 0.40 IU/mL 2024 5:53 PM DIE MAKER ELECTRONIC DTL Comment: UFH therapeutic range: 0.30-0.70 IU/mL LMWH therapeutic range: 0.50-1.00 IU/mL 0.50-1.00 IU/mL for twice daily dosing 1.00-2.00 IU/mL for once daily dosing (sample obtained 4-6 hours following subcutaneous injection) LMWH prophylactic range:0.10-0.30 IU/mL ----ADDITIONAL INFORMATION---- Heparin Anti-Xa is used to measure heparin concentrations in patients receiving low molecular weight heparin (LMWH) or unfractionated heparin (UFH). Blood (Blood, Venous) 07/22/2024 5:07 PM DIE MAKER ELECTRONIC 07/22/2024 5:35 PM DIE MAKER ELECTRONIC Ulices Jiménez P.A.-C. LAB BLOOD NON ADD-ON Final R esult Performing Organization Address City/[facility]/ZIP Co de Phone Number [facility] 200 [place] [address] * Heparin Anti-Xa Assay (07/22/2024 7:59 AM DIE MAKER ELECTRONIC) Heparin Anti-Xa, P 0.18 IU/mL 2024 9:34 AM DIE MAKER ELECTRONIC DTL Comment: UFH therapeutic range: 0.30-0.70 IU/mL LMWH therapeutic range: 0.50-1.00 IU/mL 0.50-1.00 IU/mL for twice daily dosing 1.00-2.00 IU/mL for once daily dosing (sample obtained 4-6 hours following subcutaneous injection) LMWH prophylactic range:0.10-0.30 IU/mL ----ADDITIONAL INFORMATION---- Heparin Anti-Xa is used to measure heparin concentrations in patients receiving low molecular weight heparin (LMWH) or unfractionated heparin (UFH). Blood (Blood, Venous) 07/22/2024 7:59 AM DIE MAKER ELECTRONIC 07/22/2024 8:58 AM DIE MAKER ELECTRONIC Jun Shipley M.D. LAB BLOOD NON ADD-ON Final Cherrie gaviria Performing Organization Address [facility] Co de Phone Number [facility] [address] [facility] [place][note 2] 200 [place] [address] * Prothrombin Time (PT) (07/22/2024 7:59 AM DIE MAKER ELECTRONIC) Prothrombin Time, P 11.6 9.4 - 12.5 sec 07/22/2024 9:34 AM DIE MAKER ELECTRONIC DTL INR 1.1 0.9 - 1.1 07/22/2024 9:34 AM DIE MAKER ELECTRONIC DTL Comment: ----ADDITIONAL INFORMATION---- Standard intensity warfarin therapeutic range: 2.0 to 3.0 High intensity warfarin therapeutic range: 2.5 to 3.5 Blood (Blood, Venous) 07/22/2024 7:59 AM DIE MAKER ELECTRONIC 07/22/2024 8:58 AM DIE MAKER ELECTRONIC Harpal Hodges P.A.-C. LAB BLOOD ADD-ON Final Result [place] [address] [place] [address], [facility] [address] * (ABNORMAL) CBC without Differential (07/22/2024 7:59 AM DIE MAKER ELECTRONIC) [facility] Hemoglobin 10.2(L) 13.2 - 16.6 g/dL 07/22/2024 9:08 AM DIE MAKER ELECTRONIC DTL Hematocrit 32.8(L) 38.3 - 48.6 % 07/22/2024 9:08 AM DIE MAKER ELECTRONIC DTL Erythrocytes 3.55(L) 4.35 - 5.65 x10(12)/L 07/22/2024 9:08 AM DIE MAKER ELECTRONIC DTL MCV 92.4 78.2 - 97.9 fL 07/22/2024 9:08 AM DIE MAKER ELECTRONIC DTL RBC Distrib Width 16.1(H) 11.8 - 14.5 % 07/22/2024 9:08 AM DIE MAKER ELECTRONIC DTL Platelet Count 306 135 - 317 x10(9)/L 07/22/2024 9:08 AM DIE MAKER ELECTRONIC DTL Leukocytes 29.0(H) 3.4 - 9.6 x10(9)/L 07/22/2024 9:08 AM DIE MAKER ELECTRONIC DTL Blood (Blood, Venous) 07/22/2024 7:59 AM DIE MAKER ELECTRONIC 07/22/2024 8:50 AM DIE MAKER ELECTRONIC us Harpal Hodges P.A.-C. LAB BLOOD ADD-ON Final Result [facility] [address] [place] [address], [facility] DTL [facility] [address] [place] [address] * (ABNORMAL) Basic Metabolic Panel (07/22/2024 7:59 AM DIE MAKER ELECTRONIC) [facility] Potassium, S 4.3 3.6 - 5.2 mmol/L 07/22/2024 10:07 AM DIE MAKER ELECTRONIC DTL Sodium, S 135 135 - 145 mmol/L 07/22/2024 10:07 AM DIE MAKER ELECTRONIC DTL Chloride, S 101 98 - 107 mmol/L 07/22/2024 10:07 AM DIE MAKER ELECTRONIC DTL Bicarbonate, S 22 22 - 29 mmol/L 07/22/2024 10:07 AM DIE MAKER ELECTRONIC DTL Anion Gap 12 7 - 15 07/22/2024 10:07 AM DIE MAKER ELECTRONIC DTL BUN (Blood Urea Nitrogen), S 23 8 - 24 mg/dL 07/22/2024 10:07 AM DIE MAKER ELECTRONIC DTL Creatinine 1.01 0.74 - 1.35 mg/dL 07/22/2024 10:07 AM DIE MAKER ELECTRONIC DTL Estimated GFR (eGFR) 76 >=60 mL/min/BSA 07/22/2024 10:07 AM DIE MAKER ELECTRONIC DTL Comment: Estimated GFR calculated using the 2020 CKD_EPI creatinine equation. Calcium, Total, S 8.0(L) 8.8 - 10.2 mg/dL 07/22/2024 10:07 AM DIE MAKER ELECTRONIC DTL Glucose, S 100 70 - 140 mg/dL 07/22/2024 10:07 AM DIE MAKER ELECTRONIC DTL Blood (Blood, Venous) 07/22/2024 7:59 AM DIE MAKER ELECTRONIC 07/22/2024 9:17 AM DIE MAKER ELECTRONIC Harpal Hodges P.A.-C. LAB BLOOD ADD-ON Final Result Performing Organization Address City/[facility]/ZIP Co de Phone Number [facility] [address] [place] [address], [facility] DTL [facility] [address] * Heparin Anti-Xa Assay (07/21/2024 7:13 PM DIE MAKER ELECTRONIC) Heparin Anti-Xa, P 0.27 IU/mL 2024 8:09 PM DIE MAKER ELECTRONIC DTL Comment: UFH therapeutic range: 0.30-0.70 IU/mL LMWH therapeutic range: 0.50-1.00 IU/mL 0.50-1.00 IU/mL for twice daily dosing 1.00-2.00 IU/mL for once daily dosing (sample obtained 4-6 hours following subcutaneous injection) LMWH prophylactic range:0.10-0.30 IU/mL ----ADDITIONAL INFORMATION---- Heparin Anti-Xa is used to measure heparin concentrations in patients receiving low molecular weight heparin (LMWH) or unfractionated heparin (UFH). Blood (Blood, Venous) 07/21/2024 7:13 PM DIE MAKER ELECTRONIC 07/21/2024 7:42 PM DIE MAKER ELECTRONIC Ulices Jiménez P.A.-C. LAB BLOOD NON ADD-ON Final R esult [address] [address], [facility] [address] [address] * Heparin Anti-Xa Assay (07/21/2024 11:52 AM DIE MAKER ELECTRONIC) [facility] Heparin Anti-Xa, P 0.35 IU/mL 2024 1:16 PM DIE MAKER ELECTRONIC DTL Comment: UFH therapeutic range: 0.30-0.70 IU/mL LMWH therapeutic range: 0.50-1.00 IU/mL 0.50-1.00 IU/mL for twice daily dosing 1.00-2.00 IU/mL for once daily dosing (sample obtained 4-6 hours following subcutaneous injection) LMWH prophylactic range:0.10-0.30 IU/mL ----ADDITIONAL INFORMATION---- Heparin Anti-Xa is used to measure heparin concentrations in patients receiving low molecular weight heparin (LMWH) or unfractionated heparin (UFH). Blood (Blood, Venous) 07/21/2024 11:52 AM DIE MAKER ELECTRONIC 07/21/2024 12:35 PM DIE MAKER ELECTRONIC Jun Shipley M.D. LAB BLOOD NON ADD-ON Final Re sult Performing Organization Address [facility] de Phone Number [facility] [address] [place] [address], [facility] DTL [facility] [address] [place] [address] * (ABNORMAL) Amiodarone Level (07/21/2024 2:43 AM DIE MAKER ELECTRONIC) Amiodarone, S 0.4(L) mcg/mL 07/23/2024 2:38 PM DIE MAKER ELECTRONIC [facility] Comment: ----REFERENCE VALUE---- 0.5 - 2.0 (Therapeutic concentration, trough value), >2.5 (Toxic concentration, trough value) Desethylamiodarone 0.2 mcg/mL 2024 2:38 PM DIE MAKER ELECTRONIC [facility] Comment: ----REFERENCE VALUE---- No therapeutic range established; activity and serum concentration are similar to parent drug. ----ADDITIONAL INFORMATION---- This test was developed and its performance characteristics determined by [facility] in a manner consistent with CLIA requirements. This test has not been cleared or approved by the U.S. Food and Drug Administration. Blood (Blood, Venous) 07/21/2024 2:43 AM DIE MAKER ELECTRONIC 07/23/2024 7:31 AM DIE MAKER ELECTRONIC Harpal Hodges P.A.-C. LAB BLOOD NON ADD-ON F inal Result Performing Organization Address [facility] Co de Phone Number [facility] [address] [place] [address] [facility] [address] [place] [address] [place] [address] * Heparin Anti-Xa Assay (07/21/2024 2:42 AM DIE MAKER ELECTRONIC) Heparin Anti-Xa, P 0.17 IU/mL 2024 3:48 AM DIE MAKER ELECTRONIC DTL Comment: UFH therapeutic range: 0.30-0.70 IU/mL LMWH therapeutic range: 0.50-1.00 IU/mL 0.50-1.00 IU/mL for twice daily dosing 1.00-2.00 IU/mL for once daily dosing (sample obtained 4-6 hours following subcutaneous injection) LMWH prophylactic range:0.10-0.30 IU/mL ----ADDITIONAL INFORMATION---- Heparin Anti-Xa is used to measure heparin concentrations in patients receiving low molecular weight heparin (LMWH) or unfractionated heparin (UFH). Blood (Blood, Venous) 07/21/2024 2:42 AM DIE MAKER ELECTRONIC 07/21/2024 3:27 AM DIE MAKER ELECTRONIC Harpal Perez-C. LAB BLOOD NON ADD-ON F inal Result Performing Organization Address [facility] de Phone Number [facility] [address] [facility] [place]note 2] 200 [place] [address] * Prothrombin Time (PT) (07/21/2024 2:42 AM DIE MAKER ELECTRONIC) [facility] Prothrombin Time, P 11.5 9.4 - 12.5 sec 07/21/2024 3:49 AM DIE MAKER ELECTRONIC DTL INR 1.0 0.9 - 1.1 07/21/2024 3:49 AM DIE MAKER ELECTRONIC DTL Comment: ----ADDITIONAL INFORMATION---- Standard intensity warfarin therapeutic range: 2.0 to 3.0 High intensity warfarin therapeutic range: 2.5 to 3.5 Blood (Blood, Venous) 07/21/2024 2:42 AM DIE MAKER ELECTRONIC 07/21/2024 3:27 AM DIE MAKER ELECTRONIC Harpal Perez-C. LAB BLOOD ADD-ON Final Result Performing Organization Address [facility] Co de Phone Number [facility] [address] [place] [address] * (ABNORMAL) CBC without Differential (07/21/2024 2:42 AM DIE MAKER ELECTRONIC) Hemoglobin 10.2(L) 13.2 - 16.6 g/dL 07/21/2024 3:36 AM DIE MAKER ELECTRONIC DTL Hematocrit 33.1(L) 38.3 - 48.6 % 07/21/2024 3:36 AM DIE MAKER ELECTRONIC DTL Erythrocytes 3.59(L) 4.35 - 5.65 x10(12)/L 07/21/2024 3:36 AM DIE MAKER ELECTRONIC DTL MCV 92.2 78.2 - 97.9 fL 07/21/2024 3:36 AM DIE MAKER ELECTRONIC DTL RBC Distrib Width 16.4(H) 11.8 - 14.5 % 07/21/2024 3:36 AM DIE MAKER ELECTRONIC DTL Platelet Count 275 135 - 317 x10(9)/L 07/21/2024 3:36 AM DIE MAKER ELECTRONIC DTL Leukocytes 30.7(H) 3.4 - 9.6 x10(9)/L 07/21/2024 3:36 AM DIE MAKER ELECTRONIC DTL Blood (Blood, Venous) 07/21/2024 2:42 AM DIE MAKER ELECTRONIC 07/21/2024 3:27 AM DIE MAKER ELECTRONIC us Harpal HubbardA.-C. LAB BLOOD ADD-ON Final Result [facility] [address] [place] [address], [facility] DTL [facility] [address] [place] [address] * Magnesium (07/21/2024 2:42 AM DIE MAKER ELECTRONIC) Magnesium, S 2.2 1.7 - 2.3 mg/dL 07/21/2024 3:51 AM DIE MAKER ELECTRONIC DTL Blood (Blood, Venous) 07/21/2024 2:42 AM DIE MAKER ELECTRONIC 07/21/2024 3:36 AM DIE MAKER ELECTRONIC Harpal Maharaj.A.-C. LAB BLOOD ADD-ON Final Result Performing Organization Address City/[facility]/ZIP Co de Phone Number [facility] [address] [place] [address], [facility] DTL [facility] [address] [place] [address] * (ABNORMAL) Basic Metabolic Panel (07/21/2024 2:42 AM DIE MAKER ELECTRONIC) Pathologist [facility] Potassium, S 4.0 3.6 - 5.2 mmol/L 07/21/2024 3:51 AM DIE MAKER ELECTRONIC DTL Sodium, S 136 135 - 145 mmol/L 07/21/2024 3:51 AM DIE MAKER ELECTRONIC DTL Chloride, S 102 98 - 107 mmol/L 07/21/2024 3:51 AM DIE MAKER ELECT[employer] DTL Bicarbonate, S 23 22 - 29 mmol/L 07/21/2024 3:51 AM [employer] DTL Anion Gap 11 7 - 15 07/21/2024 3:51 AM [employer] DTL BUN (Blood Urea Nitrogen), S 24 8 - 24 mg/dL 07/21/2024 3:51 AM [employer] DTL Creatinine 1.08 0.74 - 1.35 mg/dL 07/21/2024 3:51 AM [employer] DTL Estimated GFR (eGFR) 70 >=60 mL/min/BSA 07/21/2024 3:51 AM [employer] DTL Comment: Estimated GFR calculated using the 2020 CKD_EPI creatinine equation. Calcium, Total, S 7.7(L) 8.8 - 10.2 mg/dL 07/21/2024 3:51 AM [employer] DTL Glucose, S 96 70 - 140 mg/dL 07/21/2024 3:51 AM [employer] DTL Blood (Blood, Venous) 07/21/2024 2:42 AM [employer] 07/21/2024 3:36 AM [employer] us Harpal Hodges P.A.-C. LAB BLOOD ADD-ON Final Result [facility] [address] [place] [address], [facility] DTL [facility] [address] [place] [address] * Heparin Anti-Xa Assay (07/20/2024 6:55 PM DIE MAKER [employer]LECTRON[employer]) Heparin Anti-Xa, P 0.24 IU/mL 2024 8:06 PM DIE MAKER [employer]LECTRON[employer] DTL Comment: UFH therapeutic range: 0.30-0.70 IU/mL LMWH therapeutic range: 0.50-1.00 IU/mL 0.50-1.00 IU/mL for twice daily dosing 1.00-2.00 IU/mL for once daily dosing (sample obtained 4-6 hours following subcutaneous injection) LMWH prophylactic range:0.10-0.30 IU/mL ----ADDITIONAL INFORMATION---- Heparin Anti-Xa is used to measure heparin concentrations in patients receiving low molecular weight heparin (LMWH) or unfractionated heparin (UFH). Blood (Blood, Venous) 07/20/2024 6:55 PM [employer] 07/20/2024 7:41 PM [employer]IE [employer]ER [employer] Harpal Hodges P.A.-C. LAB BLOOD NON ADD-ON F inal Result Performing Organization Address [facility]/State/[place] [address], [facility] [place] [address] * (ABNORMAL) Prothrombin Time (PT) (07/20/2024 1:07 PM DIE MAKER [employer]RON[employer]) Prothrombin Time, P 13.7(H) 9.4 - 12.5 sec 07/20/2024 1:27 PM DIE [employer]ER [employer]LECTRON[employer] STMA INR 1.2 0.9 - 1.1 07/20/2024 1:27 PM DIE [employer]KER ELECTRON[employer] STMA Comment: ----ADDITIONAL INFORMATION---- Standard intensity warfarin therapeutic range: 2.0 to 3.0 High intensity warfarin therapeutic range: 2.5 to 3.5 Blood (Blood, Venous) 07/20/2024 1:07 PM [employer] 07/20/2024 1:14 PM D[employer] Harpal Hodges P.A.-C. LAB BLOOD ADD-ON Final Result Performing Organization Address City/[facility] Co de Phone Number [facility] [address] [place] [address], [facility] STMA [facility] [address] [place] [address] * Heparin Anti-Xa Assay (07/20/2024 10:59 AM DIE [employer]KER [employer]RON[employer]) Heparin Anti-Xa, P <0.10 IU/mL 2024 12:45 PM [employer] DTL Comment: UFH therapeutic range: 0.30-0.70 IU/mL LMWH therapeutic range: 0.50-1.00 IU/mL 0.50-1.00 IU/mL for twice daily dosing 1.00-2.00 IU/mL for once daily dosing (sample obtained 4-6 hours following subcutaneous injection) LMWH prophylactic range:0.10-0.30 IU/mL ----ADDITIONAL INFORMATION---- Heparin Anti-Xa is used to measure heparin concentrations in patients receiving low molecular weight heparin (LMWH) or unfractionated heparin (UFH). Blood (Blood, Venous) 07/20/2024 10:59 AM [employer] 07/20/2024 11:40 AM [employer] us Harpal Hodges P.A.-C. LAB BLOOD NON ADD-ON F inal Result Performing Organization Address [facility] Co de Phone Number [facility] [address] [place] [address], [facility] DTL [facility] [address] [place] [address] * APTT (Activated Partial Thromboplastin Time) (07/20/2024 10:58 AM D[employer]ER [employer]RON[employer]) Activated Partial Thrombopl Time, P 31 25 - 37 sec 07/20/2024 11:38 AM [employer]ER [employer]IC [facility] Blood (Blood, Venous) 07/20/2024 10:58 AM D[employer]ER [employer]LECTRONIC 07/20/2024 11:26 AM DIE MAKER ELECTRONIC us Harpal GrimesCBuddy LAB BLOOD ADD-ON Final Result Performing Organization Address [facility] Co de Phone Number [facility] [address] [place] [address], [facility] STMA [facility] [address] [place] [address] * (ABNORMAL) CBC without Differential (07/20/2024 8:37 AM DIE MAKER [employer]RONIC) Pathologist [facility] Hemoglobin 11.0(L) 13.2 - 16.6 g/dL 07/20/2024 9:48 AM DIE [employer]ER [employer]RON[employer] DTL Hematocrit 35.8(L) 38.3 - 48.6 % 07/20/2024 9:48 AM [employer] DTL Erythrocytes 3.86(L) 4.35 - 5.65 x10(12)/L 07/20/2024 9:48 AM D[employer]ER [employer]RON[employer] DTL MCV 92.7 78.2 - 97.9 fL 07/20/2024 9:48 AM D[employer]ER [employer]RON[employer] DTL RBC Distrib Width 16.8(H) 11.8 - 14.5 % 07/20/2024 9:48 AM [employer]ER [employer]RON[employer] DTL Platelet Count 294 135 - 317 x10(9)/L 07/20/2024 9:48 AM D[employer]ER [employer]RON[employer] DTL Leukocytes 32.3(H) 3.4 - 9.6 x10(9)/L 07/20/2024 9:48 AM D[employer] DTL Blood (Blood, Venous) 07/20/2024 8:37 AM D[employer]ER [employer]RONIC 07/20/2024 9:26 AM DIE [employer]KER [employer]IC Harpal Hodges P.A.-C. LAB BLOOD ADD-ON Final Result Performing Organization Address City/[facility]/ZIP Co de Phone Number [facility] [address] [place] [address], [facility] DTL [facility] [address] [place] [address] * (ABNORMAL) Basic Metabolic Panel (07/20/2024 8:37 AM DIE MAKER ELECTRONIC) Pathologist [facility] Potassium, S 4.3 3.6 - 5.2 mmol/L 07/20/2024 10:02 AM D[employer]ER [employer] DTL Sodium, S 136 135 - 145 mmol/L 07/20/2024 10:02 AM D[employer] DTL Chloride, S 102 98 - 107 mmol/L 07/20/2024 10:02 AM [employer]ER [employer] DTL Bicarbonate, S 22 22 - 29 mmol/L 07/20/2024 10:02 AM [employer] DTL Anion Gap 12 7 - 15 07/20/2024 10:02 AM [employer] DTL BUN (Blood Urea Nitrogen), S 19 8 - 24 mg/dL 07/20/2024 10:02 AM [employer] DTL Creatinine 0.96 0.74 - 1.35 mg/dL 07/20/2024 10:02 AM [employer]ER [employer] DTL Estimated GFR (eGFR) 81 >=60 mL/min/BSA 07/20/2024 10:02 AM DIE [employer]KER [employer]RON[employer] DTL Comment: Estimated GFR calculated using the 2020 CKD_EPI creatinine equation. Calcium, Total, S 8.2(L) 8.8 - 10.2 mg/dL 07/20/2024 10:02 AM D[employer] DTL Glucose, S 99 70 - 140 mg/dL 07/20/2024 10:02 AM D[employer]ER [employer]RON[employer] DTL Blood (Blood, Venous) 07/20/2024 8:37 AM D[employer]ER [employer]RONIC 07/20/2024 9:45 AM DIE [employer]ER [employer]RON[employer] us Harpal Hodges P.A.-C. LAB BLOOD ADD-ON Final Result [facility] [address] [place] [address], [facility] [place]note 2] [address] [place] [address] * CT Chest Angiogram and Pulmonary Arteries with IV Contrast (07/19/2024 4:20 PM DIE MAKER [employer]LECTRONIC) Anatomical Region Laterality Modality Chest, Cardiovascular RST LO S, Thoracic ARZ LOS, Thoracic FLA LOS N/A Computed Tomography, Compute d Tomography 07/19/2024 4:14 PM DIE [employer]KER [employer]RONIC Impressions 07/19/2024 4:42 PM DIE [employer]ER [employer]RONIC 1. Negative for acute pulmonary embolus. 2. Pulmonary edema and small bilateral pleural effusions. The effusions have increased in size since 06/30/2024. 3. Multifocal consolidation in the lungs has moderately improved since 06/30/2024. 4. Extensive adenopathy in the chest is largely unchanged since 06/30/2024, though several lymph nodes have slightly enlarged. Narrative 07/19/2024 4:42 PM DIE MAKER ELECTRONIC EXAM: CT CHEST ANGIOGRAM AND PULMONARY ARTERIES [...] 9 mm. A 7 mm prevascular node () isincreased from 4 mm and an 11 mm left paratracheal node () hasincreased from 8 mm. The dominant 25 [...] 06/30/2024,though several lymph nodes have slightly enlarged. Matthew Carlin M.D. IMG CT PROCEDURES Final Re sult * (ABNORMAL) Dipstick, POCT, Urine (07/19/2024 2:50 PM DIE [employer]ER [employer]RONIC) Glucose, POCT, U Negative Negative mg/dL 07/19/2024 2:51 PM D[employer] PCED Ketone, POCT, U Negative Negative mg/dL 07/19/2024 2:51 PM D[employer] PCED Specific [place], POCT, U 1.015 1.005 - 1.030 07/19/2024 2:51 PM D[employer]ER [employer] PCED Blood, POCT, U Negative Negative 07/19/2024 2:51 PM [employer] PCED pH, POCT, Urine 7.0 5.0 - 8.0 07/19/2024 2:51 PM [employer] PCED Protein, POCT, U 100(A) Negative mg/dL 07/19/2024 2:51 PM D[employer]ER [employer]RON[employer] PCED Nitrites, POCT, U Negative Negative 07/19/2024 2:51 PM D[employer]ER [employer] PCED Leukocytes, POCT, U Negative Negative 07/19/2024 2:51 PM D[employer]ER [employer]RON[employer] PCED Urine 07/19/2024 2:50 PM DIE [employer]KER [employer]RONIC 07/19/2024 2:52 PM DIE MAKER ELECTRONIC us Unknown Provider LAB POCT ORDERABLES - DEVICE Fi nal Result POC RST [facility] [address] [place] [id number], [facility] PCED [facility] POC [address] [place] [address] * (ABNORMAL) Microscopic Manual (07/19/2024 2:46 PM DIE MAKER ELECTRONIC) Microscopy Abnormal 07/19/2024 4:07 PM DIE MAKER ELECTRONIC DTL RBC <3 <3 /hpf 07/19/2024 4:07 PM DIE [employer]KER ELECTRONIC DTL WBC None Seen /hpf 07/19/2024 4:07 PM DIE MAKER ELECTRONIC DTL Comment: ----REFERENCE VALUE---- <4 (Males) <11 (Females) Casts, Granular Occas(A) /lpf 4:07 PM DIE [employer]KER [employer]RONIC DTL Urine 07/19/2024 2:46 PM DIE MAKER ELECTRONIC 07/19/2024 3:22 PM DIE MAKER ELECTRONIC us Marta Baugh P.A.-C. LAB URINE ORDERABLES Final Result Performing Organization Address City/[facility]/ZIP Co de Phone Number [facility] [address] [facility] [place][note 2] [address] [place] [address] * pH, Urine (07/19/2024 2:46 PM DIE MAKER ELECTRONIC) pH, U 6.8 4.5 - 8.0 07/19/2024 3:5 2 PM DIE [employer]KER ELECTRONIC DTL Urine 07/19/2024 2:46 PM DIE [employer]KER ELECTRONIC 07/19/2024 3:10 PM DIE MAKER ELECTRONIC us Marta Baugh P.A.-C. LAB URINE ORDERABLES Final Result [facility] [address] [place] [address], [facility] [place]note 2] [address] [place] [address] * Dipstick, Urine (07/19/2024 2:46 PM DIE MAKER ELECTRONIC) Pathologist [facility] Hemoglobin, QL, U Negative Negative 07/19/2024 3:22 PM DIE MAKER ELECTRONIC DTL Leukocyte Esterase, U Negative Negative 07/19/2024 3:22 PM DIE MAKER ELECTRONIC DTL Nitrite, U Negative Negative 07/19/2024 3:22 PM DIE MAKER ELECTRONIC DTL Ketone, U Negative Negative mg/dL 07/19/2024 3:22 PM DIE MAKER ELECTRONIC DTL Glucose, U Negative Negative mg/dL 07/19/2024 3:22 PM DIE MAKER ELECTRONIC DTL Urine 07/19/2024 2:46 PM DIE MAKER ELECTRONIC 07/19/2024 3:10 PM D[employer] MAKER ELECTRONIC Marta Baugh P.A.-C. LAB URINE ORDERABLES Final Result Performing Organization Address City/[facility]/ZIP Co de Phone Number [facility] [address] [facility] [place]note 2] [address] [place] [address] * Osmolality, Urine (07/19/2024 2:46 PM DIE MAKER ELECTRONIC) [facility] Osmolality, U 447 150 - 1150 mOsm/kg 07/19/2024 3:52 PM DIE MAKER ELECTRONIC DTL Urine 07/19/2024 2:46 PM DIE MAKER ELECTRONIC 07/19/2024 3:10 PM DIE MAKER ELECTRONIC Marta Baugh P.A.-C. LAB URINE ORDERABLES Final Result Performing Organization Address City/[facility]/ZIP Co de Phone Number [facility] [address] [place] [address], [facility] [address] [place] [address] * Bacterial Culture, Aerobic + Susceptibility, Urine (07/19/2024 2:46 PM DIE MAKER ELECTRONIC) [facility] Urine Culture Urogenital microbiota, susceptibilities not performed per laboratory criteria. 07/20/2024 12:18 PM DIE MAKER ELECTRONIC DTL Urine (Urine, Midstream) 07/19/2024 2:46 PM DIE MAKER ELECTRONIC 07/19/2024 5:46 PM DIE MAKER ELECTRONIC Comment:Specimen Source Site : Urine Matthew Carlin M.D. LAB MICROBIOLOGY - GENERAL ORDERABLES Final Result Performing Organization Address [facility] Co de Phone Number [facility] [address] [place], [place] [address] DTL [facility] [address] [place] [address] * (ABNORMAL) Urinalysis, with Microscopic: Urine, Midstream (07/19/2024 2:46 PM DIE MAKER ELECTRONIC) Source Urine, Urine, Midstream 07/19/2024 3:10 PM DIE MAKER ELECTRONIC DTL Color, U Yellow 07/19/2024 3:10 PM DIE MAKER ELECTRONIC DTL Clarity, U Clear 07/19/2024 3:10 PM DIE MAKER ELECTRONIC DTL Protein, U 60(H) <26 mg/dL 07/19/2024 3:47 PM DIE MAKER ELECTRONIC DTL Protein/Osmol ality 1.34(H) <0.42 ratio 07/19/2024 3:52 PM DIE MAKER ELECTRONIC DTL Predicted 24 HR Protein, U 1247(H) <229 mg/24 h 07/19/2024 3:52 PM DIE MAKER ELECTRONIC DTL Predicted Range 396-3928 mg/24 h 07/19/2024 3:52 PM DIE MAKER ELECTRONIC DTL Urine (Urine, Midstream) 07/19/2024 2:46 PM DIE MAKER ELECTRONIC 07/19/2024 3:10 PM DIE MAKER ELECTRONIC Matthew Carlin M.D. LAB URINE ORDERABLES Final Result Performing Organization Address City/[facility]/ZIP Co de Phone Number [facility] [address] [place] [address], [facility] DTL [facility] [address] [place] [address] * (ABNORMAL) T4 (Thyroxine), Free, Serum (07/19/2024 1:07 PM DIE [employer]KER [employer]LECTRONIC) T4 (Thyroxine), Free, S 1.8(H) 0.9 - 1.7 ng/dL 07/19/2024 2:43 PM DIE MAKER ELECTRONIC DTL Blood 07/19/2024 1:07 PM DIE [employer]KER ELECTRONIC 07/19/2024 1:33 PM DIE [employer]KER ELECTRONIC Matthew Carlin M.D. LAB BLOOD ADD-ON Final Res ult Performing Organization Address City/[facility]/ZIP Co de Phone Number [facility] [address] [place] [address], [facility] [place][note 2] [address] [place] [address] * Thyroperoxidase (TPO) Antibodies (07/19/2024 1:07 PM DIE MAKER ELECTRONIC) Pathologist [facility] Thyroperoxidase Ab, S <15.0 <34.0 IU/mL 07/19/2024 2:43 PM DIE MAKER ELECTRONIC DTL Blood 07/19/2024 1:07 PM DIE [employer]KER ELECTRONIC 07/19/2024 1:33 PM DIE MAKER ELECTRONIC Matthew Carlin M.D. LAB BLOOD ADD-ON Final Res ult Performing Organization Address City/[facility]/ZIP Co de Phone Number [facility] [address] [place] [address], [facility] [address] [place] [address] * Lactate, POCT (07/19/2024 1:07 PM DIE MAKER ELECTRONIC) Pathologist [facility] Lactate, POCT 1.04 0.50 - 2.20 mmol/L 07/19/2024 1:15 PM DIE MAKER ELECTRONIC PCLX Blood (Blood, Venous) 07/19/2024 1:07 PM DIE MAKER ELECTRONIC 07/19/2024 1:07 PM DIE MAKER ELECTRONIC Matthew Carlin M.D. LAB POCT ORDERABLES - BRAD CE Final Result POC [facility] [address] [place] [address], [place] PCLX [facility] POC [address] [place] [address] * (ABNORMAL) Thyroid Function [place] (07/19/2024 1:07 PM DIE MAKER ELECTRONIC) TSH, Sensitive 4.4(H) 0.3 - 4.2 mIU/L 07/19/2024 2:27 PM DIE MAKER ELECTRONIC DTL Blood (Blood, Venous) 07/19/2024 1:07 PM DIE MAKER ELECTRONIC 07/19/2024 1:33 PM DIE MAKER ELECTRONIC Matthew Carlin M.D. LAB BLOOD ADD-ON Final Res ult Performing Organization Address City/[facility]/ZIP Co de Phone Number [facility] [address] [place] [address], [facility] [place]note 2] [address] [place] [address] * (ABNORMAL) D-Dimer (07/19/2024 1:07 PM DIE MAKER ELECTRONIC) Pathologist [facility] D-Dimer, P 1273(H) <=500 ng/mL FEU 07/19/2024 1:28 PM DIE MAKER ELECTRONIC STMA Comment: D-dimer concentrations increase with age. [...] (PE). Blood (Blood, Venous) 07/19/2024 1:07 PM DIE MAKER ELECTRONIC 07/19/2024 1:16 PM DIE MAKER ELECTRONIC Matthew Carlin M.D. LAB BLOOD ADD-ON Final Res ult [facility] [address] [place] [address], [facility] STMA [facility] [address] [place] [address] * (ABNORMAL) Hepatic Function Panel (07/19/2024 1:07 PM DIE MAKER ELECTRONIC) Bilirubin, Total, S 1.2 0.0 - 1.2 mg/dL 07/19/2024 2:27 PM DIE MAKER ELECTRONIC DTL Bilirubin, Direct, S 0.4(H) 0.0 - 0.3 mg/dL 07/19/2024 3:20 PM DIE MAKER ELECTRONIC DTL Aspartate Aminotransferase (AST), S 30 8 - 48 U/L 07/19/2024 3:19 PM DIE MAKER ELECTRONIC DTL Alanine Aminotransferase (ALT), S 19 7 - 55 U/L 07/19/2024 2:27 PM DIE MAKER ELECTRONIC DTL Alkaline Phosphatase, S 87 40 - 129 U/L 07/19/2024 2:27 PM DIE MAKER ELECTRONIC DTL Albumin, S 3.5 3.5 - 5.0 g/dL 07/19/2024 2:27 PM DIE MAKER ELECTRONIC DTL Protein, Total, S 5.1(L) 6.3 - 7.9 g/dL 07/19/2024 2:27 PM DIE MAKER ELECTRONIC DTL Blood (Blood, Venous) 07/19/2024 1:07 PM DIE MAKER ELECTRONIC 07/19/2024 1:33 PM DIE MAKER ELECTRONIC us Matthew Carlin M.D. LAB BLOOD ADD-ON Final Res ult [facility] [address] [place] [address], [facility] [address] [place] [address] * (ABNORMAL) Troponin T, 2 Hour with 6 Hour Reflex, 5th Gen (07/19/2024 1:07 PM DIE MAKER ELECTRONIC) Troponin T, 2 hr, 5th gen 33(H) <=15 ng/L 07/19/2024 1:43 PM DIE MAKER ELECTRONIC STMA 2H Delta 1 ng/L 07/19/2024 1:43 PM DIE MAKER ELECTRONIC STMA Comment:6 hour collection no t indicated. 2H Delta Interp Not Changing 07/19/2024 1:43 PM DIE MAKER ELECTRONIC STMA Blood 07/19/2024 1:07 PM DIE MAKER ELECTRONIC 07/19/2024 1:16 PM DIE MAKER ELECTRONIC Marta Baugh P.A.-C. LAB BLOOD TROPONIN Fi nal Result [facility] [address] [place] [address], [facility] [address] [place] [address] * DX Chest AP or PA and Lateral 2 Views (07/19/2024 10:23 AM DIE MAKER ELECTRONIC) Anatomical Region Laterality Modality Chest, Thoracic RST LOS, Tho racic ARZ LOS, Thoracic FLA LOS N/A Digital Radiography Impressions 07/19/2024 10:26 AM DIE MAKER ELECTRONIC Improved bilateral airspace and interstitial opacities from 07/04/2024. Trace to small pleural effusions, left greater than right. No discernible pneumothorax. Stable cardiac silhouette. MitraClip. Aortic calcifications. Narrative 07/19/2024 10:26 AM DIE MAKER ELECTRONIC EXAM: DX CHEST AP OR PA AND LATERAL 2 VIEWS Procedure Note Cali Triplett D.O. - 07/19/2024 EXAM: DX CHEST AP OR PA AND LATERAL 2 VIEWS IMPRESSION: Improved bilateral airspace and interstitial opacities from 07/04/2024.Trace to small pleural effusions, left greater than right. No discerniblepneumothorax. Stable cardiac silhouette. MitraClip. Aortic calcifications. Matthew Carlin M.D. IMG DIAGNOSTIC IMAGING PRO CEDURES Final Result * Prothrombin Time (PT) (07/19/2024 10:15 AM DIE MAKER ELECTRONIC) Prothrombin Time, P 12.4 9.4 - 12.5 sec 07/19/2024 10:35 AM DIE [employer]KER ELECTRONIC [facility] 1.1 0.9 - 1.1 07/19/2024 10:35 AM DIE MAKER ELECTRONIC [facility] Comment: ----ADDITIONAL INFORMATION---- Standard intensity warfarin therapeutic range: 2.0 to 3.0 High intensity warfarin therapeutic range: 2.5 to 3.5 Blood (Blood, Venous) 07/19/2024 10:15 AM DIE MAKER ELECTRONIC 07/19/2024 10:23 AM DIE MAKER ELECTRONIC us Matthew Carlin M.D. LAB BLOOD ADD-ON Final Res ult Performing Organization Address [facility] Co de Phone Number [facility] [address] [place] [address], [facility] [address] [place] [address] * (ABNORMAL) Troponin T, Baseline with 2 Hour/6 Hour Reflex Biomarker Panel (07/19/2024 10:15 AM DIE MAKER ELECTRONIC) [facility] Troponin T, Baseline, 5th gen 32(H) <=15 ng/L 07/19/2024 10:55 AM DIE MAKER ELECTRONIC STMA Blood (Blood, Venous) 07/19/2024 10:15 AM DIE MAKER ELECTRONIC 07/19/2024 10:23 AM DIE MAKER ELECTRONIC Matthew Carlin M.D. LAB BLOOD TROPONIN Final R esult Performing Organization Address [facility] Co de Phone Number [facility] [address] [place] [address], [facility] [address] [place] [address] * Glucose, POCT (07/19/2024 10:15 AM DIE MAKER ELECTRONIC) [facility] Glucose, POCT, B 116 70 - 140 mg/dL 07/19/2024 10:20 AM DIE MAKER ELECTRONIC PCLX Blood (Blood, Capillary) 07/19/2024 10:15 AM DIE MAKER ELECTRONIC 07/19/2024 10:15 AM DIE MAKER ELECTRONIC us Matthew Carlin M.D. LAB POCT ORDERABLES-MANUAL Final Result Performing Organization Address City/[facility]/ZIP Co de Phone Number POC [facility] [address] [place] [address], [place] PCLX [facility] POC [address] [place] [address] * Magnesium (07/19/2024 10:14 AM DIE MAKER ELECTRONIC) [facility] Magnesium, P 1.9 1.7 - 2.3 mg/dL 07/19/2024 1:31 PM DIE MAKER ELECTRONIC STMA Blood (Blood, Venous) 07/19/2024 10:14 AM DIE MAKER ELECTRONIC 07/19/2024 12:51 PM DIE MAKER ELECTRONIC Matthew Carlin M.D. LAB BLOOD ADD-ON Final Res ult Performing Organization Address City/[facility]/ZIP Co de Phone Number [facility] [address] [place] [address], [facility] [address] [place] [address] * (ABNORMAL) Morphology Eval (special smear) (07/19/2024 10:14 AM DIE MAKER ELECTRONIC) [facility] Neutrophilic Segs and Bands 19(L) 50 - 75 % 07/19/2024 11:18 AM DIE MAKER ELECTRONIC [facility] Lymphocytes 79(H) 18 - 42 % 07/19/2024 11:18 AM DIE MAKER ELECTRONIC [facility] Monocytes 2 2 - 11 % 07/19/2024 11:18 AM DIE MAKER ELECTRONIC [facility] Manual Absolute Neutrophil Count 7.01(H) 1.56 - 6.45 x10(9)/L 07/19/2024 11:18 AM DIE MAKER ELECTRONIC [facility] Comment: ----ADDITIONAL INFORMATION---- The manual absolute neutrophil count is derived from a manual differential count and therefore is not exactly comparable to the automated absolute neutrophil count. Blood 07/19/2024 10:1 4 AM DIE MAKER ELECTRONIC 07/19/2024 10:23 AM DIE MAKER ELECTRONIC Matthew Carlin M.D. LAB BLOOD ADD-ON Final Res ult Performing Organization Address City/[facility]/ZIP Co de Phone Number [facility] [address] [place] [address], [facility] [address] [place] [address] * (ABNORMAL) CBC with Differential, Blood (07/19/2024 10:14 AM DIE MAKER ELECTRONIC) [facility] Hemoglobin 10.7(L) 13.2 - 16.6 g/dL 07/19/2024 10:25 AM DIE MAKER ELECTRONIC [facility] Hematocrit 34.3(L) 38.3 - 48.6 % 07/19/2024 10:25 AM DIE MAKER ELECTRONIC STMA Erythrocytes 3.70(L) 4.35 - 5.65 x10(12)/L 07/19/2024 10:25 AM DIE MAKER ELECTRONIC [facility] MCV 92.7 78.2 - 97.9 fL 07/19/2024 10:25 AM DIE MAKER ELECTRONIC STMA RBC Distrib Width 16.4(H) 11.8 - 14.5 % 07/19/2024 10:25 AM DIE MAKER ELECTRONIC STMA Platelet Count 277 135 - 317 x10(9)/L 07/19/2024 10:25 AM DIE MAKER ELECTRONIC ST[facility] Leukocytes 36.9(H) 3.4 - 9.6 x10(9)/L 07/19/2024 11:18 AM DIE MAKER ELECTRONIC [facility] Neutrophils See Comment 1.56 - 6.45 x10(9)/L 07/19/2024 11:18 AM DIE MAKER ELECTRONIC [facility] Comment:Auto-diff results no t valid. See manual differential. Blood (Blood, Venous) 07/19/2024 10:14 AM DIE MAKER ELECTRONIC 07/19/2024 10:23 AM DIE MAKER ELECTRONIC Matthew Carlin M.D. LAB BLOOD ADD-ON Final Res ult [facility] [address] [place] [address], [facility] [address] [place] [address] * (ABNORMAL) Basic Metabolic Panel (07/19/2024 10:14 AM [employer]LECTRON[employer]) Potassium, P 4.7 3.6 - 5.2 mmol/L 07/19/2024 10:39 AM [employer] [facility] Sodium, P 132(L) 135 - 145 mmol/L 07/19/2024 10:39 AM [employer] [facility] Chloride, P 97(L) 98 - 107 mmol/L 07/19/2024 10:39 AM [employer] [facility] Bicarbonate, P 22 22 - 29 mmol/L 07/19/2024 10:39 AM [employer] [facility] Anion Gap, P 13 7 - 15 07/19/2024 10:39 AM [employer] [facility] BUN (Blood Urea Nitrogen), P 18 8 - 24 mg/dL 07/19/2024 10:39 AM [employer] [facility] Creatinine 0.93 0.74 - 1.35 mg/dL 07/19/2024 10:39 AM [employer] [facility] Estimated GFR (eGFR) 84 >=60 mL/min/BSA 07/19/2024 10:39 AM [employer] [facility] Comment: Estimated GFR calculated using the 2020 CKD_EPI creatinine equation. Calcium, Total, P 8.7(L) 8.8 - 10.2 mg/dL 07/19/2024 10:39 AM [employer] [facility] Glucose, P 120 70 - 140 mg/dL 07/19/2024 10:39 AM [employer] [facility] Blood (Blood, Venous) 07/19/2024 10:14 AM [employer] 07/19/2024 10:23 AM [employer] Matthew Carlin M.D. LAB BLOOD ADD-ON Final Res ult [place] [address] [place] [address], [facility] [address] [place] [address] * ECG 12 Lead (07/19/2024 10:05 AM [employer] ELECTRON[employer]) Ventricular Rate ECG/Min 117 BPM MUSE QRSD Interval 86 ms MUSE QT Interval 344 ms MUSE QTC Interval 479 ms MUSE R Dawson 70 degrees MUSE T Wave Dawson 8 degrees MUSE 07/19/2024 10:0 5 AM [employer] ELECTRON[employer] 07/19/2024 10:21 AM [employer] Impressions MUSE - 07/19/2024 10:21 AM D[employer] ELECTRONIC Atrial fibrillation with rapid ventricular response with premature ventricular or aberrantly conducted complexes Nonspecific ST and T wave abnormality When compared with ECG of 05-Jul-2024 09:27, Premature atrial complexes are now present Reviewed by DEB Goldberg Narrative Procedure Note Benjie Lugo M.D., Ph.D. - 07/19/2024 IMPRESSION: Atrial fibrillation with rapid ventricular response with premature ventricular or aberrantly conducted complexes Nonspecific ST and T wave abnormality When compared with ECG of 05-Jul-2024 09:27, Premature atrial complexes are now present Reviewed by DEB Goldberg us Matthew Carlin M.D. ECG ORDERABLES Final Resu lt MUSE NA documented in this encounter Visit Diagnoses Diagnosis Atrial Fibrillation Unspecified (HCC)- Primary Atrial Fibrillation Unspecified (HCC) Apnea Sleep Obstructive Hypoxia Acute Pulmonary Histoplasmosis Capsulati (HCC) Atrial Fibrillation Paroxysmal (HCC) documented in this encounter Admitting Diagnoses Diagnosis Atrial Fibrillation Unspecified (HCC) Atrial Fibrillation Paroxysmal (HCC) documented in this encounter Administered Medications Inactive Administered Medications - up to 3 most recent administrations Medication Order MAR Action Action Date Dose Rate Site acetaminophen tablet 500 mg (TylenoL) 500 mg, oral, Every 6 hours PRN, mild pain or score 1-3 of 10, fever, Notify service prior to first administration for fever, Starting on Tue07/19/24 at 2118 ALPRAZolam tablet 0.125 mg (Xanax) 0.125 mg, oral, Every 12 hours PRN, anxiety, Starting on Tue07/19/24 at 2234 Given 07/25/2024 3:51 PM [facility] [employer] 0.125 mg amiodarone tablet 100 mg (Pacerone) 100 mg, oral, Daily, First dose (after last modification) on Tue07/20/24 at 1415 Given 07/23/2024 8:04 AM [employer] 100 mg Given 07/22/2024 10:32 AM [employer] 100 mg Given 07/21/2024 9:01 AM [employer] 100 mg amiodarone tablet 200 mg (Pacerone) 200 mg, oral, Daily, First dose (after last modification) on Tue07/24/24 at 0900 Given 07/29/2024 9:12 AM [employer] 200 mg Given 07/28/2024 8:21 AM [employer] 200 mg Given 07/27/2024 9:07 AM [employer] 200 mg amLODIPine tablet 5 mg (Norvasc) 5 mg, oral, Daily, First dose on Tue07/20/24 at 0900 Given 07/29/2024 9:12 AM [employer] 5 mg Given 07/28/2024 8:21 AM [employer] 5 mg Given 07/27/2024 9:07 AM [employer] [address] tablet 10 mg (Dulcolax) 10 mg, oral, Daily PRN, constipation, Starting on Tue07/19/24 at 2118, PO route preferred. Constipation unrelieved by docusate sodium (COLACE) if ordered. If results needed within 2 hours give rectal suppository if ordered. Swallow whole. Do NOT crush, chew, or split tablet. bisacodyL suppository 10 mg (Dulcolax) 10 mg, rectal, Daily PRN, constipation, Starting on Tue07/19/24 at 2118, PO route preferred. Constipation unrelieved by docusate sodium (COLACE) if ordered. If results needed within 2 hours - give rectal suppository. D5W infusion 1-999 mL/hr, intravenous, As needed, Medications Incompatible with 0.9% NaCL, Starting on Tue07/19/24 at 2232, Infuse at the same rate as the piggyback until tubing clears or up to a volume of 20 mL pre and post infusion for medications incompatible with 0.9% NaCL. Use 50 mL bag then discard. fentaNYL injection (Sublimaze) As needed, Starting on Tue07/23/24 at 0929, Intraprocedure (CV) Given 07/23/2024 9:34 AM [facility] [employer] 25 mcg Given 07/23/2024 9:32 AM [employer] 25 mcg Given 07/23/2024 9:29 AM [employer] 25 mcg ferrous sulfate tablet 65 mg of iron 65 mg of iron, oral, Every other day, First dose on Tue07/20/24 at 0900, Ferrous sulfate 325 mg contains 65 mg of elemental iron. Given 07/28/2024 8:21 AM [employer] 65 mg of iron Given 07/26/2024 9:06 AM [employer] 65 mg of iron Given 07/24/2024 8:35 AM [employer] 65 mg of iron furosemide injection 40 mg (Lasix) 40 mg, intravenous, Once, On Tue07/20/24 at 1030, For 1 dose, Adults: Doses less than 120 mg: IV push over 20 mg/minute. Doses 120 mg or greater: IVPB at 4 mg/minute. Peds/Neonates: Doses less than 120 mg over 0.5 mg/kg/minute. Doses 120 mg or greater: IVPB at 4 mg/minute. Given 07/20/2024 12:44 PM [employer] 40 mg furosemide injection 40 mg (Lasix) 40 mg, intravenous, Once, On 07/21/24 at 1030, For 1 dose, Adults: Doses less than 120 mg: IV push over 20 mg/minute. Doses 120 mg or greater: IVPB at 4 mg/minute. Peds/Neonates: Doses less than 120 mg over 0.5 mg/kg/minute. Doses 120 mg or greater: IVPB at 4 mg/minute. Given 07/21/2024 10:55 AM [employer] 40 mg furosemide injection 40 mg (Lasix) 40 mg, intravenous, Once, On 07/22/24 at 1600, For 1 dose, Adults: Doses less than 120 mg: IV push over 20 mg/minute. Doses 120 mg or greater: IVPB at 4 mg/minute. Peds/Neonates: Doses less than 120 mg over 0.5 mg/kg/minute. Doses 120 mg or greater: IVPB at 4 mg/minute. Given 07/22/2024 4:53 PM [employer] 40 mg heparin (porcine) 1,000 unit/mL injection 2,100 Units 2,100 Units (rounded from 2,106 Units = 30 Units/kg 70.2 kg Dosing weight), intravenous, As needed, antiXa 0.1-0.19, Starting on Tue07/20/24 at 1220, Intensity type: Moderate, Anti-Xa < 0.1: Loading Dose (Units/kg): 60, Anti-Xa 0.1-0.19: Loading Dose (Units/kg): 30, Anti-Xa > 0.19: Loading Dose (Units/kg): 0 Given 07/22/2024 11:07 AM [employer] 2,100 Unit s Given 07/21/2024 5:42 AM [employer] 2,100 Units heparin (porcine) 1,000 unit/mL injection 4,200 Units 4,200 Units (rounded from 4,212 Units = 60 Units/kg 70.2 kg Dosing weight), intravenous, Once, On Tue07/20/24 at 1245, For 1 dose, Initial Loading Dose Given 07/20/2024 12:44 PM [employer] 4,200 Units heparin (porcine) 100 Units/mL in NaCl 0.45% 250 mL infusion 1-30 Units/kg/hr 70.2 kg Dosing weight (0.702-21.06 mL/hr, rounded to 0.7-21.06 mL/hr), intravenous, Continuous, Starting on Tue07/20/24 at 1245, 25,000 Units in 250 mL, Intensity type: Moderate, Starting Dose (units/kg/hr): 12, Anti-Xa < 0.1: Adjust Dose (Units/kg/hr) by: 4, Anti-Xa < 0.1: Loading Dose (Units/kg): 60, Anti-Xa < 0.1: Repeat anti-Xa: 6 hours, Anti-Xa 0.1-0.19: Adjust Dose (Units/kg/hr) by: 2, Anti-Xa 0.1-0.19: Loading Dose (Units/kg): 30, Anti-Xa 0.1-0.19: Repeat anti-Xa: 6 hours, Anti-Xa 0.2-0.5: Adjust Dose (Units/kg/hr) by: 0, Anti-Xa 0.2-0.5: Repeat anti-Xa: 6 hours. If two consecutive therapeutic result, re-check next AM., Anti-Xa > 0.19: Loading Dose (Units/kg): 0, Anti-Xa 0.51-0.6: Adjust Dose (Units/kg/hr) by: -1, Anti-Xa 0.51-0.6: Repeat anti-Xa: 6 hours, Anti-Xa 0.61-0.9: Hold Infusion: Stop infusion for 1 hour, Anti-Xa 0.61-0.9: Adjust Dose (Units/kg/hr) by: -2, Anti-Xa 0.61-0.9: Repeat anti-Xa: 6 hours after Heparin resumed, Anti-Xa 0.91-1.5: Hold Infusion: Stop infusion for 2 hours, Anti-Xa 0.91-1.5: Adjust Dose (Units/kg/hr) by: -4, Anti-Xa 0.91-1.5: Repeat anti-Xa: 6 hours after Heparin resumed, Anti-Xa > 1.5: Hold Infusion: Stop infusion until anti-Xa < 1.2, Anti-Xa > 1.5: Adjust Dose (Units/kg/hr) by: -4, Anti-Xa > 1.5: Repeat anti-Xa: every 2 hours until anti-Xa less than 1.2 Rate/Dose Change 07/29/2024 11:00 AM [facility] [employer] 15 Units/kg/hr 10.5 mL/hr New Bag 07/29/2024 7:52 AM [employer] 15 Units/kg/hr 10.5 mL/h r Rate/Dose Verify 07/29/2024 5:58 AM [employer] 15 Units/kg/hr 10. 5 mL/hr iopromide 370 mg iodine/mL injection 1-162 mL (Ultravist) 1-162 mL, intravenous, Once in imaging, contrast, Starting on Olivia 07/19/24 at 1605, For 1 dose, Imaging Protocol Orders, Dose per Radiant Medication Guidelines Given 07/19/2024 4:13 PM [employer] 80 mL levothyroxine tablet 112 mcg 112 mcg, oral, Daily before morning meal, First dose on Tue07/20/24 at 0700 Given 07/29/2024 6:44 AM [employer] 112 mcg Given 07/28/2024 6:45 AM [employer] 112 mcg Given 07/27/2024 5:46 AM [employer] 112 mcg lidocaine 5 % ointment 1 Application (Xylocaine) 1 Application, mouth/throat, As needed, mild pain or score 1-3 of 10, See protocol, Starting on 07/23/24 at 0823, For 2 doses, Intraprocedure - Diagnostic, Apply 1 inch on tongue blade. Place ointment side down in back of mouth, as far back as possible. Instruct patient to swallow any dissolved ointment. After 2-3 minutes, check gag reflex. May repeat once if gag reflex remains. Administer first dose within 10 minutes of expected physician arrival to procedure. MAX of 20 g of ointment/day Given 07/23/2024 9:18 AM CS T 1 Application Given 07/23/2024 9:12 AM [employer] 1 Application lisinopriL tablet 15 mg 15 mg, oral, 2 times daily, First dose on Tue07/20/24 at 0900 Given 07/29/2024 9:12 AM [employer] 15 mg Given 07/28/2024 8:47 PM [employer] 15 mg Given 07/28/2024 8:20 AM [employer] [address] tablet 64 mg (Mag-Delay) 64 mg, oral, Daily before morning meal, First dose on Tue07/20/24 at 0700, magnesium chloride 64 mg oral daily was interchanged for magnesium chloride 71.5 mg Swallow whole. Do NOT crush, chew, or split tablet. Given 07/29/2024 6:44 AM [employer] 64 mg Given 07/28/2024 6:44 AM [employer] 64 mg Given 07/27/2024 5:46 AM [employer] 64 mg magnesium sulfate in water IVPB 2 g 2 g, intravenous, at 25 mL/hr, Administer over 120 Minutes, Once, On Tue07/24/24 at 1045, For 1 dose New Bag 07/24/2024 11:42 AM [employer] 2 g 25 mL/hr magnesium sulfate in water IVPB 4 g 4 g, intravenous, at 25 mL/hr, Administer over 240 Minutes, Once, On Olivia 07/19/24 at 1249, For 1 dose New Bag 07/19/2024 1:05 PM [employer] 4 g 25 mL/hr metoprolol injection 5 mg (Lopressor) 5 mg, intravenous, Once, On Olivia 07/19/24 at 1354, For 1 dose Given 07/19/2024 2:33 PM [employer] 5 mg metoprolol tablet 12.5 mg (Lopressor) 12.5 mg, oral, Once, On [facility] 07/21/24 at 1030, For 1 dose Given 07/21/2024 10:55 AM [employer] 12.5 mg metoprolol tablet 37.5 mg (Lopressor) 37.5 mg, oral, 2 times daily, First dose on Olivia 07/19/24 at 2315 Given 07/21/2024 9:01 AM [employer] 37.5 mg Given 07/20/2024 8:32 PM [employer] 37.5 mg Given 07/20/2024 8:11 AM [employer] 37.5 mg metoprolol tartrate tablet 50 mg (Lopressor) 50 mg, oral, 2 times daily, First dose (after last modification) on [facility] 07/21/24 at 2100 Given 07/29/2024 9:12 AM [employer] 50 mg Given 07/28/2024 8:47 PM [employer] 50 mg Given 07/28/2024 8:21 AM [employer] 50 mg midazolam (PF) injection (Versed) As needed, Starting on 07/23/24 at 0929, Intraprocedure (CV) Given 07/23/2024 9:34 AM [employer] 1 mg Given 07/23/2024 9:32 AM [employer] 1 mg Given 07/23/2024 9:29 AM [employer] 2 mg NaCl 0.9 % bolus 1,000 mL 1,000 mL, intravenous, at 1,000 mL/hr, Administer over 1 Hours, Once, On Olivia 07/19/24 at 1305, For 1 dose New Bag 07/19/2024 1:05 PM [employer] 1,000 mL 1000 mL/hr NaCl 0.9% bacteriostatic 0.9 % injection 30 mL 30 mL, intravenous, As needed, for agitated saline (bubble) studies, Starting on Tue07/23/24 at 0823, Intraprocedure - Diagnostic, See Ally. pantoprazole DR tablet 40 mg (Protonix) 40 mg, oral, Daily before morning meal, First dose on Tue07/20/24 at 0700, pantoprazole 40 mg oral daily was interchanged for omeprazole 20 or 40 mg oral daily Swallow whole. Do NOT crush, chew, or split tablet. Given 07/29/2024 6:44 AM [employer] 40 mg Given 07/28/2024 6:45 AM [employer] 40 mg Given 07/27/2024 5:46 AM [employer] [address] tablet 300 mg (NoxafiL) 300 mg, oral, Daily, First dose on Tue07/20/24 at 0900, For 30 days, Swallow whole. Do NOT crush, chew, or split tablet., Drug Monitoring Program: Pharmacist to adjust medication dosing based on indication and drug clearance factors., Indications: Aspergillus infectionIndications:Aspergillus infection Given 07/29/2024 9:11 AM [employer] 300 mg Given 07/28/2024 8:21 AM [employer] 300 mg Given 07/27/2024 9:07 AM [employer] 300 mg sodium chloride (PF) 0.9 % injection 1-100 mL 1-100 mL, intravenous, Once, On Olivia 07/19/24 at 1606, For 1 dose, Imaging Protocol Orders, Dose per Radiant Medication Guidelines Given 07/19/2024 4:13 PM [employer] 30 mL sodium chloride 0.9 % injection 10 mL 10 mL, intravenous, As needed, line care, Starting on Olivia 07/19/24 at 1005, Peripheral Intravenous Catheter and Rapid Infusion Catheter, prior to blood sampling, post blood transfusion or post blood sampling sodium chloride 0.9 % injection 10 mL 10 mL, intravenous, As needed, line care, Starting on Olivia 07/19/24 at 2117, Peripheral Intravenous Catheter and Rapid Infusion Catheter, prior to blood sampling, post blood transfusion or post blood sampling sodium chloride 0.9 % injection 10 mL 10 mL, intravenous, As needed, line care, Starting on Tue07/23/24 at 0823, Intraprocedure - Diagnostic, Prior to and following infusion and between multiple consecutive infusions: sodium chloride 0.9 % injection sodium chloride 0.9 % injection 3 mL 3 mL, intravenous, As needed, line care, Starting on Olivia 07/19/24 at 1005, Prior to and following infusion and between multiple consecutive infusions: sodium chloride 0.9 % injection sodium chloride 0.9 % injection 3 mL 3 mL, intravenous, Every 12 hours scheduled, First dose on Olivia 07/19/24 at 2100, Peripheral Intravenous Catheter and Rapid Infusion Catheter, when no infusion to maintain patency Given 07/28/2024 8: 47 PM [employer] 3 mL Given 07/27/2024 8:47 PM [employer] 3 mL Given 07/25/2024 8:54 AM [employer] 3 mL sodium chloride 0.9 % injection 3 mL 3 mL, intravenous, As needed, line care, Starting on Olivia 07/19/24 at 2117, Prior to and following infusion and between multiple consecutive infusions: sodium chloride 0.9 % injection sodium chloride 0.9 % injection 3 mL 3 mL, intravenous, Every 12 hours scheduled, First dose on Tue07/20/24 at 0900, Peripheral Intravenous Catheter and Rapid Infusion Catheter, when no infusion to maintain patency Given 07/28/2024 8: 47 PM [employer] 3 mL Given 07/28/2024 8:23 AM [employer] 3 mL Given 07/27/2024 8:47 PM [employer] 3 mL tamsulosin 24 hr capsule 0.4 mg (Flomax) 0.4 mg, oral, Daily, First dose on Tue07/20/24 at 0900, Swallow whole. Do NOT crush, chew or open capsule. Given 07/29/2024 9:12 AM [employer] 0.4 mg Given 07/28/2024 8:21 AM [employer] 0.4 mg Given 07/27/2024 9:07 AM [employer] 0.4 mg warfarin tablet 2 mg (Jantoven) 2 mg, oral, Once, On Tue07/20/24 at 1700, For 1 dose, HAZARDOUS - Handle with care. Swallow whole. Do NOT chew or split tablet. May crush using the RxCrush system. Given 07/20/2024 5:27 PM [employer] 2 mg warfarin tablet 2 mg (Jantoven) 2 mg, oral, Once, On 07/21/24 at 1700, For 1 dose, HAZARDOUS - Handle with care. Swallow whole. Do NOT chew or split tablet. May crush using the RxCrush system. Given 07/21/2024 5:03 PM [employer] 2 mg warfarin tablet 3 mg (Jantoven) 3 mg, oral, Once, On 07/22/24 at 1700, For 1 dose, HAZARDOUS - Handle with care. Swallow whole. Do NOT chew or split tablet. May crush using the RxCrush system. Given 07/22/2024 4:54 PM [employer] 3 mg warfarin tablet 4 mg (Jantoven) 4 mg, oral, Once, On 07/23/24 at 1700, For 1 dose, HAZARDOUS - Handle with care. Swallow whole. Do NOT chew or split tablet. May crush using the RxCrush system. Given 07/23/2024 4:29 PM [employer] 4 mg warfarin tablet 5 mg (Jantoven) 5 mg, oral, Once, On Tu07/24/24 at 1700, For 1 dose, HAZARDOUS - Handle with care. Swallow whole. Do NOT chew or split tablet. May crush using the RxCrush system. Given 07/24/2024 4:34 PM [employer] 5 mg warfarin tablet 7.5 mg (Jantoven) 7.5 mg, oral, Once, On Tue07/25/24 at 1700, For 1 dose, HAZARDOUS - Handle with care. Swallow whole. Do NOT chew or split tablet. May crush using the RxCrush system. Given 07/25/2024 5:29 PM [employer] 7.5 mg warfarin tablet 7.5 mg (Jantoven) 7.5 mg, oral, Once, On Olivia 07/26/24 at 1700, For 1 dose, HAZARDOUS - Handle with care. Swallow whole. Do NOT chew or split tablet. May crush using the RxCrush system. Given 07/26/2024 5:10 PM [employer] 7.5 mg warfarin tablet 7.5 mg (Jantoven) 7.5 mg, oral, Once, On Tue07/27/24 at 1700, For 1 dose, HAZARDOUS - Handle with care. Swallow whole. Do NOT chew or split tablet. May crush using the RxCrush system. Given 07/27/2024 5:49 PM [employer] 7.5 mg warfarin tablet 7.5 mg (Jantoven) 7.5 mg, oral, Once, On Tue07/28/24 at 1300, For 1 dose, HAZARDOUS - Handle with care. Swallow whole. Do NOT chew or split tablet. May crush using the RxCrush system. Given 07/28/2024 1:38 PM [employer] 7.5 mg documented in this encounter Active and Recently Administered Medications Times are shown in [employer]. Scheduled Medication Order 07/27/2024 07/28/2024 07/29/2024 amiodarone tablet 200 mg (Pacerone) 200 mg, oral, Daily, First dose (after last modification) on Tue07/24/24 at 0900 0907 (Given - Provider: Allegra Savage R.N.) 0821 (Given - Provider: Shreya Bowden R.N.) 0912 (Given - Provider: Allegra Savage R.N.) amLODIPine tablet 5 mg (Norvasc) 5 mg, oral, Daily, First dose on Tue07/20/24 at 0900 0907 (Given - Provider: Allegra Savage R.N.) 0821 (Given - Provider: Shreya Bowden R.N.) 0912 (Given - Provider: Allegra Savage R.N.) ferrous sulfate tablet 65 mg of iron 65 mg of iron, oral, Every other day, First dose on Tue07/20/24 at 0900, Ferrous sulfate 325 mg contains 65 mg of elemental iron. 08 (Given - Provider: Shreya Bowden R.N.) levothyroxine tablet 112 mcg 112 mcg, oral, Daily before morning meal, First dose on Tue07/20/24 at 0700 0546 (Given - Provider: Ivan Huggins R.N., C.M.S.R.NBuddy) 0645 (Given - Provider: Enoch Kwan R.N.) 0644 (Given - Provider: Chato Bey R.N.) lisinopriL tablet 15 mg 15 mg, oral, 2 times daily, First dose on Tue07/20/24 at 0900 0907 (Given - Provider: Allegra Savage R.N.)2045 (Given - Provider: Chato Bey R.N.) 08 (Given - Provider: Shreya Bowden R.N.)2046 (Given - Provider: Chato Bey R.N.) 09 (Given - Provider: Allegra Savage R.N.) magnesium chloride DR tablet 64 mg (Mag-Delay) 64 mg, oral, Daily before morning meal, First dose on Tue07/20/24 at 0700, magnesium chloride 64 mg oral daily was interchanged for magnesium chloride 71.5 mg Swallow whole. Do NOT crush, chew, or split tablet. 0546 (Given - Provider: Ivan Huggins R.N., Nikki.Tanja.S.R.NBuddy) 0644 (Given - Provider: Enoch Kwan R.N.) 0644 (Given - Provider: Chato Bey R.N.) metoprolol tartrate tablet 50 mg (Lopressor) 50 mg, oral, 2 times daily, First dose (after last modification) on Tue07/21/24 at 2100 0907 (Given - Provider: Allegra Savage R.N.)2045 (Given - Provider: Chato Bey R.N.) 08 (Given - Provider: Shreya Bowden R.N.)2046 (Given - Provider: Chato Bey R.N.) 0912 (Given - Provider: Alelgra Savage R.N.) pantoprazole DR tablet 40 mg (Protonix) 40 mg, oral, Daily before morning meal, First dose on Tue07/20/24 at 0700, pantoprazole 40 mg oral daily was interchanged for omeprazole 20 or 40 mg oral daily Swallow whole. Do NOT crush, chew, or split tablet. 0546 (Given - Provider: Ivan Huggins R.N., C.M.S.R.N.) 0645 (Given - Provider: Enoch Kwan R.N.) 0644 (Given - Provider: Chato Bey R.N.) posaconazole DR tablet 300 mg (NoxafiL) 300 mg, oral, Daily, First dose on Tue07/20/24 at 0900, For 30 days, Swallow whole. Do NOT crush, chew, or split tablet., Drug Monitoring Program: Pharmacist to adjust medication dosing based on indication and drug clearance factors., Indications: Aspergillus infection 0907 (Given - Provider: Allegra Savage R.N.) 08 (Given - Provider: Shreya Bowden R.N.) 09 (Given - Provider: Allegra Savage R.N.) sodium chloride 0.9 % injection 3 mL 3 mL, intravenous, Every 12 hours scheduled, First dose on Tue07/19/24 at 2100, Peripheral Intravenous Catheter and Rapid Infusion Catheter, when no infusion to maintain patency 09 (Not Given - Provider: Allegra Savage R.N. - Reason: Other)2046 (Given - Provider: Chato Bey R.N.) 08 (Not Given - Provider: Shreya Bowden R.N. - Reason: Other - Comment: IV infusing)2046 (Given - Provider: Chato Bey R.N.) 09 (Not Given - Provider: Allegra Savage R.N. - Reason: Other) sodium chloride 0.9 % injection 3 mL 3 mL, intravenous, Every 12 hours scheduled, First dose on Tue07/20/24 at 0900, Peripheral Intravenous Catheter and Rapid Infusion Catheter, when no infusion to maintain patency 09 (Given - Provider: Allegra Savage R.N.)2046 (Given - Provider: Chato Bey R.N.) 08 (Given - Provider: Shreya Bowden R.N.)2046 (Given - Provider: Chato Bey R.N.) 09 (Not Given - Provider: Allegra Savage R.N. - Reason: Other) tamsulosin 24 hr capsule 0.4 mg (Flomax) 0.4 mg, oral, Daily, First dose on Tue07/20/24 at 0900, Swallow whole. Do NOT crush, chew or open capsule. 0907 (Given - Provider: Allegra Savage R.N.) 0821 (Given - Provider: Shreya Bowden R.N.) 0912 (Given - Provider: Allegra Savage R.N.) warfarin tablet 7.5 mg (Jantoven) (COMPLETED) 7.5 mg, oral, Once, On Tue07/27/24 at 1700, For 1 dose, HAZARDOUS - Handle with care. Swallow whole. Do NOT chew or split tablet. May crush using the RxCrush system. 1749 (Given - Provider: Shreya Bowden R.N.) warfarin tablet 7.5 mg (Jantoven) (COMPLETED) 7.5 mg, oral, Once, On Tue07/28/24 at 1300, For 1 dose, HAZARDOUS - Handle with care. Swallow whole. Do NOT chew or split tablet. May crush using the RxCrush system. 1338 (Given - Provider: Allegra Savage R.N.) Continuous Medication Order 07/27/2024 07/28/2024 07/29/2024 heparin (porcine) 100 Units/mL in NaCl 0.45% 250 mL infusion (CANCELED) 1-30 Units/kg/hr 70.2 kg Dosing weight (0.702-21.06 mL/hr, rounded to 0.7-21.06 mL/hr), intravenous, Continuous, Starting on Tue07/20/24 at 1245, 25,000 Units in 250 mL, Intensity type: Moderate, Starting Dose (units/kg/hr): 12, Anti-Xa < 0.1: Adjust Dose (Units/kg/hr) by: 4, Anti-Xa < 0.1: Loading Dose (Units/kg): 60, Anti-Xa < 0.1: Repeat anti-Xa: 6 hours, Anti-Xa 0.1-0.19: Adjust Dose (Units/kg/hr) by: 2, Anti-Xa 0.1-0.19: Loading Dose (Units/kg): 30, Anti-Xa 0.1-0.19: Repeat anti-Xa: 6 hours, Anti-Xa 0.2-0.5: Adjust Dose (Units/kg/hr) by: 0, Anti-Xa 0.2-0.5: Repeat anti-Xa: 6 hours. If two consecutive therapeutic result, re-check next AM., Anti-Xa > 0.19: Loading Dose (Units/kg): 0, Anti-Xa 0.51-0.6: Adjust Dose (Units/kg/hr) by: -1, Anti-Xa 0.51-0.6: Repeat anti-Xa: 6 hours, Anti-Xa 0.61-0.9: Hold Infusion: Stop infusion for 1 hour, Anti-Xa 0.61-0.9: Adjust Dose (Units/kg/hr) by: -2, Anti-Xa 0.61-0.9: Repeat anti-Xa: 6 hours after Heparin resumed, Anti-Xa 0.91-1.5: Hold Infusion: Stop infusion for 2 hours, Anti-Xa 0.91-1.5: Adjust Dose (Units/kg/hr) by: -4, Anti-Xa 0.91-1.5: Repeat anti-Xa: 6 hours after Heparin resumed, Anti-Xa > 1.5: Hold Infusion: Stop infusion until anti-Xa < 1.2, Anti-Xa > 1.5: Adjust Dose (Units/kg/hr) by: -4, Anti-Xa > 1.5: Repeat anti-Xa: every 2 hours until anti-Xa less than 1.2 0723 (New Bag - Provider: Allegra Savage R.N.)0902 (Rate/Dose Change - Provider: Allegra Savage R.N.)1942 (Rate/Dose Verify - Provider: Allegra Savage R.N.) 0007 (Rate/Dose Verify - Provider: Enoch Kwan R.N.)0008 (Handoff - Provider: Enoch Kwan R.N.)0719 (Rate/Dose Verify - Provider: Enoch Kwan R.N.)0738 (New Bag - Provider: Allegra Savage R.N.)0739 (Rate/Dose Change - Provider: Katerine Mcfarlane.N.) 0558 (Rate/Dose Verify - Provider: Chato Bey RBuddyNBuddy)0752 (New Bag - Provider: Allegra Savage R.N.)1100 (Rate/Dose Change - Provider: Allegra Savage R.N.)1106 (Stopped - Provider: Allegra Savage R.N.) PRN Medication Order 07/27/2024 07/28/2024 07/29/2024 acetaminophen tablet 500 mg (TylenoL) 500 mg, oral, Every 6 hours PRN, mild pain or score 1-3 of 10, fever, Notify service prior to first administration for fever, Starting on Olivia 07/19/24 at 2118 ALPRAZolam tablet 0.125 mg (Xanax) 0.125 mg, oral, Every 12 hours PRN, anxiety, Starting on [place] 07/19/[address] tablet 10 mg (Dulcolax) 10 mg, oral, Daily PRN, constipation, Starting on Olivia 07/19/24 at 2117, PO route preferred. Constipation unrelieved by docusate sodium (COLACE) if ordered. If results needed within 2 hours give rectal suppository if ordered. Swallow whole. Do NOT crush, chew, or split tablet. bisacodyL suppository 10 mg (Dulcolax) 10 mg, rectal, Daily PRN, constipation, Starting on Olivia 07/19/24 at 2118, PO route preferred. Constipation unrelieved by docusate sodium (COLACE) if ordered. If results needed within 2 hours - give rectal suppository. D5W infusion 1-999 mL/hr, intravenous, As needed, Medications Incompatible with 0.9% NaCL, Starting on Olivia 07/19/24 at 2232, Infuse at the same rate as the piggyback until tubing clears or up to a volume of 20 mL pre and post infusion for medications incompatible with 0.9% NaCL. Use 50 mL bag then discard. NaCl 0.9% bacteriostatic 0.9 % injection 30 mL 30 mL, intravenous, As needed, for agitated saline (bubble) studies, Starting on Tue07/23/24 at 0823, Intraprocedure - Diagnostic, See Ally. sodium chloride 0.9 % injection 10 mL 10 mL, intravenous, As needed, line care, Starting on Olivia 07/19/24 at 1005, Peripheral Intravenous Catheter and Rapid Infusion Catheter, prior to blood sampling, post blood transfusion or post blood sampling sodium chloride 0.9 % injection 10 mL 10 mL, intravenous, As needed, line care, Starting on Olivia 07/19/24 at 2117, Peripheral Intravenous Catheter and Rapid Infusion Catheter, prior to blood sampling, post blood transfusion or post blood sampling sodium chloride 0.9 % injection 10 mL 10 mL, intravenous, As needed, line care, Starting on 07/23/24 at 0823, Intraprocedure - Diagnostic, Prior to and following infusion and between multiple consecutive infusions: sodium chloride 0.9 % injection sodium chloride 0.9 % injection 3 mL 3 mL, intravenous, As needed, line care, Starting on Olivia 07/19/24 at 1005, Prior to and following infusion and between multiple consecutive infusions: sodium chloride 0.9 % injection sodium chloride 0.9 % injection 3 mL 3 mL, intravenous, As needed, line care, Starting on Olivia 07/19/24 at 2117, Prior to and following infusion and between multiple consecutive infusions: sodium chloride 0.9 % injection documented in this encounter Additional Health Concerns Infection Onset Date Last Indicated Resolved Time Protective Environment 09/20/2022 09/20/202208/30 5:23 AM CDT Assessment Noted Time PHQ-9 Depression Total Score: 6 07/17/19 20 10:26 AM 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
--- OUTSIDE RECORDS SUMMARY | 2024-09-11 11:39 | XMS_ITS | Encounter Summary ---
Author Organization [facility] Address [address] [place] [address] Care Team Providers Care Supervisor Statement Clerks Name Role Phone Elsewhere, Pcp Primary Care Provider Unavailabl e Encounter Details Date Type Department Care Team (Late st Contact Info) Description 07/29/2024 Orders Only Department of Cardiovascular Medicine in [place], [place] [address] [place] [address] Trudy Padilla, Jose. [address] [place] [phone] Social History Tobacco Use Types Packs/Day Years Used Date Smoking Tobacco: Never Smokeless Tobacco: Never Alcohol Use Standard Drinks/Week Comments Never 0 (1 standard drink = 0.6 oz pur e alcohol) [facility] Utilities Answer Date Recorded In the past [address] [facility] [employer], gas, oil, or water [employer] threatened to shut off services in your [...] week 06/30/2021 How often do you attend mandaeism or muslim serv ices? Never 06/30/2021 Do you belong to any clubs o r organizations such as mandaeism groups, unions, fraternal or athletic groups, or [...] your living situation today? I have a [facility] place to live 07/19/2024 Education Answer Date Recorded What is the highest level of school you have completed or the highest degree you have received? Professional school degree (e.g., MD, DDS, DVM, GRACIELA) 06/30/2021 Sex and Gender Information Value Date Recorded Sex Assigned at Male 06/30/2021 12:19 PM WAGON WASHER Legal Sex Male 7:31 AM CDT Gender Identity Male 06/30/2021 12:19 PM WAGON WASHER Sexual Orientation Straight 06/30/2021 12 :19 PM WAGON WASHER documented as of this encounter Functional Status [...] 7:45 AM CDT Appointment Department of Rad[facility], [facility] [place], [place] [address] [place] [phone] Julio Soto M.D. [address] [place] [phone] 09/24/2024 9:30 AM CDT Diagnostic Division of Pulmonary Medicine in [place], [place] [address] [place] [phone] Marilu Castaneda P.A.-C., M.S. [address] [place] [phone] 09/24/2024 10:40 AM CDT Appointment Department of Laboratory Medicine and Pathology, [facility] in [place], [place] [address] [place] [phone] Marilu Castaneda P.A.-C., M.S. [address] [place] [phone] 09/24/2024 2:30 PM CDT Office Visit Section of Infectious Diseases in [place], [place] [address] [place] [address] Julio Soto M.D. [address] [place] [address] documented as of this encounter Visit Diagnoses Not on filedocumented in this encounter Additional Health Concerns Infection Onset Date Last Indicated Resolved Time Protective Environment 09/20/2022 09/20/202208/30 5:23 AM CDT Assessment Noted Time PHQ-9 Depression Total Score: 6 07/17/19 20 10:26 AM WAGON WASHER documented as of this encounter Care Teams Supervisor Statement Clerks Relationship Specialty Start Date End Date Elsewhere, Pcp PCP - General Clinique Counter Manager 06/27/19 documented as of this encounter
--- OUTSIDE RECORDS SUMMARY | 2024-09-11 11:39 | XMS_ITS | Encounter Summary ---
Author Organization [facility] Address [address] [place] [phone] Care Team Providers Care Design Maker Name Role Phone Elsewhere, Pcp Primary Care Provider Unavailabl e Reason for Visit * Reason Comments OPAT Lab Results Encounter Details Date Type Department Care Team (Late st Contact Info) Description 08/03/2024 Patient Outreach Section of Infectious Diseases in [place], [place] [address] [place] [phone] Stacey Hernandez R.N. [address] [place] [phone] OPAT (Lab Results ) Social History Tobacco Use Types Packs/Day Years Used Date Smoking Tobacco: Never Smokeless Tobacco: Never Alcohol Use Standard Drinks/Week Comments Never 0 (1 standard drink = 0.6 oz pur e alcohol) [facility] Utilities Answer Date Recorded In the past 12 months has [facility] [employer], gas, oil, or water [employer] threatened to shut off services in your [...] How often do you attend anabaptist or episcopal serv ices? Never 06/30/2021 Do [...] and heating? Not hard at all 06/30/2021 [facility] - Occupational Stress Questionnaire [...] your living situation today? I have a [facility] place to live 07/19/2024 Education Answer Date Recorded What is the highest level of school you have completed or the highest degree you have received? Professional school degree (e.g., MD, DDS, DVM, GRACIELA) 06/30/2021 Sex and Gender Information Value Date Recorded Sex Assigned at Male 06/30/2021 12:19 PM WALLPAPERER Legal Sex Male 7:31 AM CDT Gender Identity Male 06/30/2021 12:19 PM WALLPAPERER Sexual Orientation Straight 06/30/2021 12 :19 PM WALLPAPERER documented as of this encounter Functional Status [...] Mensah M.S.W., Jing. documented in this encounter Nursing Notes * Stacey Hernandez R.N. - 08/03/2024 9:07 AM [facility] Name Phone Number [facility] Lab: [facility] ( ) [phone] Problem: Outpatient Antimicrobial Therapy Monitoring Description: OPAT/COpAT: -Follow up scheduled 08/13/24 -IFD Managing Service/Provider: [facility] Medications: Posaconazole Start Date: 07/04/24, End date: 08/13/24 Tentative Goal: Patient will obtain safety monitoring labs Description: Labs required: ALT, Alk Phos, and Potassium in two weeks, then monthly Baseline Creatinine: N/A Outcome: Progressing Intervention: Labs reviewed Note: Lab results from 07/30/2024 are viewable in Care Everywhere ([employer]). Note that some or all lab results may pull into the [facility], but please review in Care Everywhere to see complete results. and the MCR record. Within OPAT guideline parameters Interpretation and Action: No change in plan as per [facility] Practice Guideline. Reference used: Guideline for Antimicrobial Therapy Monitoring for the Division of Infectious Diseases - [id number] PAPERER documented in this encounter Plan of Treatment Upcoming Encounters Date Type Department Care Team (Late st Contact Info) Description 09/24/2024 7:45 AM CDT Appointment Department of Radiology, [facility], in [place], [place] [address] [place] [phone] Julio Soto M.D. [address] [place] [phone] 09/24/2024 9:30 AM CDT Diagnostic Division of Pulmonary Medicine in [place], [place] [address] [place] [phone] Marilu Castaneda P.A.-C., M.S. [address] [place] [phone] 09/24/2024 10:40 AM CDT Appointment Department of Laboratory Medicine and Pathology, [facility] in [place], [place] [address] [place] [phone] Marilu Castaneda P.A.-C., M.S. [address] [place] [phone] 09/24/2024 2:30 PM CDT Office Visit Section of Infectious Diseases in [place], [place] [address] [place] [phone] Julio Soto M.D. [address] [place] [phone] documented as of this encounter Visit Diagnoses Not on filedocumented in this encounter Additional Health Concerns Infection Onset Date Last Indicated Resolved Time Protective Environment 09/20/2022 09/20/202208/30 5:23 AM CDT Assessment Noted Time PHQ-9 Depression Total Score: 6 07/17/19 20 10:26 AM WALLPAPERER documented as of this encounter Care Teams Design Maker Relationship Specialty Start Date End Date Elsewhere, Pcp PCP - General In Home Nanny 06/27/19 documented as of this encounter
--- OUTSIDE RECORDS SUMMARY | 2024-09-11 11:39 | XMS_ITS | Encounter Summary ---
Author Organization [facility] Address [address] [place] [address] Care Team Providers Care Interior Design Program Chair Name Role Phone Elsewhere, Pcp Primary Care Provider Unavailabl e Reason for Referral * Medication Prior Authorization - Closed Specialty Diagnoses / Procedures Referred By Contgregory t Referred To Contact Diagnoses Acute Pulmonary Histoplasmosis Capsulati (HCC) Vanessa Brown P.A.-C. 200 [place] [address] Phone: tel: fax: Referral ID Status Reason Start Date Expiration Date Visits Re quested Visits Authorized [id number] Closed [address] [place] COVERAGE MERCHANDISER Encounter Details Date Type Department Care Team (Latest Contact Info) Description 07/31/2024 Orders Only Department of Cardiovascular Medicine in [place], [place] [address] [place] [phone] Vanessa Brown P.A.-C. 200 [place] [phone] Acute Pulmonary Histoplasmosis Capsulati (HCC) Social History Tobacco Use Types Packs/Day [...] How often do you attend sabianism or baptism serv ices? Never 06/30/2021 Do you belong [...] and heating? Not hard at all 06/30/2021 [facility] of Occupat ional Health - Occupational Stress [...] have received? Professional school degree (e.g., , VICTOR HUGOS, DVM, GRACIELA) 06/30/2021 Sex and Gender Information Value Date Recorded Sex Assigned at Male 06/30/2021 12:19 PM RETAIL COVERAGE MERCHANDISER Legal Sex Male 7:31 AM CDT Gender Identity Male 06/30/2021 12:19 PM RETAIL COVERAGE MERCHANDISER Sexual Orientation Straight 06/30/2021 12 :19 PM RETAIL COVERAGE MERCHANDISER documented as of this encounter Functional Status * Are you deaf or do you have serious difficulty hearing? Answer Date of Assessment Author No 07/01/2024 10:08 AM Cheryl Mensah M.S.W., Jing. * Are you blind or do you have serious difficulty seeing, even when wearing glasses? Answer Date of Assessment Author No 07/01/2024 10:08 AM hCeryl Mensah M.S.W., Jing. * Do you have [...] AM CDT Appointment Department of Radiology, [facility], in [place], [place] 200 [place] [address] Julio Soto M.D. 200 [place] [phone] 09/24/2024 9:30 AM CDT Diagnostic Division of Pulmonary Medicine in [place], [place] [address] [place] [phone] Marilu Castaneda P.A.-C., M.S. [address] [place] [phone] 09/24/2024 10:40 AM CDT Appointment Department of Laboratory Medicine and Pathology, [facility] in [place], [place] [address] [place] [address] Marilu Castaneda P.A.-C., M.S. [address] [place] [phone] 09/24/2024 2:30 PM CDT Office Visit Section of Infectious Diseases in [place], [place] [address] [place] [phone] Julio Soto M.D. [address] [place] [phone] documented as of this encounter Visit Diagnoses Diagnosis Acute Pulmonary Histoplasmosis Capsulati (HCC) documented in this encounter Additional Health Concerns Infection Onset Date Last Indicated Resolved Time Protective Environment 09/20/2022 09/20/202208/30 5:23 AM CDT Assessment Noted Time PHQ-9 Depression Total Score: 6 07/17/19 20 10:26 AM RETAIL COVERAGE MERCHANDISER documented as of this encounter Care Teams Interior Design Program Chair Relationship Specialty Start Date End Date Elsewhere, Pcp PCP - General Senior Tax Manager 06/27/19 documented as of this encounter
--- OUTSIDE RECORDS SUMMARY | 2024-09-11 11:39 | XMS_ITS | Encounter Summary ---
Author Organization [facility] Address [address] [place] [address] Care Team Providers Care Director Federal Name Role Phone Elsewhere, Pcp Primary Care Provider Unavailabl e Reason for Visit * Reason Onset Date Comments release med to pharmacy 07/30/2024 Encounter Details Date Type Department Care Team (Latest Contact Info) Description 07/30/2024 Clinical Communication Department of Cardiovascular Medicine in [place], [place] [address] [place] [phone] Trudy Padilla, Jose. [address] [place] [phone] release med to pharmacy Social History Tobacco Use Types Packs/Day Years Used Date Smoking Tobacco: Never Smokeless Tobacco: Never Alcohol Use Standard Drinks/Week Comments Never 0 (1 standard drink = 0.6 oz pur e alcohol) [facility] Utilities Answer Date Recorded In the [...] week 06/30/2021 How often do you attend rastafarian or gnosticism serv ices? Never 06/30/2021 Do you belong to any clubs o r organizations such as rastafarian groups, unions, fraternal or athletic groups, or [...] and heating? Not hard at all 06/30/2021 [facility] of Occupat ional Health - Occupational Stress [...] a [facility] place to live 07/19/2024 Education Answer Date Recorded What is the highest level of school you have completed or the highest degree you have received? Professional school degree (e.g., , DDS, DVM, GRACIELA) 06/30/2021 Sex and Gender Information Value Date Recorded Sex Assigned at Male 06/30/2021 12:19 PM NON LICENSED NUCLEAR PLANT OPERATOR Legal Sex Male 7:31 AM CDT Gender Identity Male 06/30/2021 12:19 PM NON LICENSED NUCLEAR PLANT OPERATOR Sexual Orientation Straight 06/30/2021 12 :19 PM NON LICENSED NUCLEAR PLANT OPERATOR documented as of this encounter Functional [...] 7:45 AM CDT Appointment Department of Radiology, [facility] in [place], [place] [address] [place] [phone] Julio Soto M.D. [address] [place] [phone] 09/24/2024 9:30 AM CDT Diagnostic Division of Pulmonary Medicine in [place], [place] [address] [place] [phone] Marilu Castaneda P.A.-Nikki., M.S. [address] [place] [phone] 09/24/2024 10:40 AM CDT Appointment Department of Laboratory Medicine and Pathology, [facility] in [place], [place] [address] [place] [phone] Marilu Castaneda P.A.-C., M.S. [address] [place] [phone] 09/24/2024 2:30 PM CDT Office Visit Section of Infectious Diseases in [place], [place] [address] [place] [phone] Julio Soto M.D. [address] [place] [phone] documented as of this encounter Visit Diagnoses Not on filedocumented in this encounter Additional Health Concerns Infection Onset Date Last Indicated Resolved Time Protective Environment 09/20/2022 09/20/202208/30 5:23 AM CDT Assessment Noted Time PHQ-9 Depression Total Score: 6 07/17/19 20 10:26 AM NON LICENSED NUCLEAR PLANT OPERATOR documented as of this encounter Care Teams Director Federal Relationship Specialty Start Date End Date Elsewhere, Pcp PCP - General Technical Associate 06/27/19 documented as of this encounter
--- OUTSIDE RECORDS SUMMARY | 2024-09-11 11:39 | XMS_ITS | Encounter Summary ---
Author Organization [facility] Address [address] [place] [address] Care Team Providers Care Voice Over Announcer Name Role Phone Elsewhere, Pcp Primary Care Provider Unavailabl e Reason for Visit * Reason Onset Date Comments REDO quantity for RX 07/31/2024 Encounter Details Date Type Department Care Team (Latest Contact Info) Description 07/31/2024 Clinical Communication Department of Cardiovascular Medicine in [place], [place] [address] [place] [phone] Trudy Padilla, PAlexi-C. [address] [place] [phone] REDO quantity for RX Social History Tobacco Use Types Packs/Day Years Used Date Smoking Tobacco: Never Smokeless Tobacco: Never Alcohol Use Standard Drinks/Week Comments Never 0 (1 standard drink = 0.6 oz pur e alcohol) [facility] Utilities Answer Date Recorded In the [...] How often do you attend protestant or hinduism serv ices? Never 06/30/2021 Do [...] and heating? Not hard at all 06/30/2021 [facility] [place] of Occupat ional Health - Occupational Stress [...] Sex Assigned at Male 06/30/2021 12:19 PM SUBSTATION MANAGER Legal Sex Male 7:31 AM CDT Gender Identity Male 06/30/2021 12:19 PM SUBSTATION MANAGER Sexual Orientation Straight 06/30/2021 12 :19 PM SUBSTATION MANAGER documented as of this encounter Functional [...] AM CDT Appointment Department of Radiology, [facility] in [place], [place] [address] [place] [phone] Julio Soto M.D. [address] [place] [phone] 09/24/2024 9:30 AM CDT Diagnostic Division of Pulmonary Medicine in [place], [place] [address] [place] [phone] Marilu Castaneda P.A.-Nikki., M.S. [address] [place] [phone] 09/24/2024 10:40 AM CDT Appointment Department of Laboratory Medicine and Pathology, [facility] in [place], [place] [address] [place] [phone] Marilu Castaneda P.A.-C., M.S. [address] [place] [phone] 09/24/2024 2:30 PM CDT Office Visit Section of Infectious Diseases in [place], [place] [address] [place] [phone] Julio Soto M.D. [address] [place] [phone] documented as of this encounter Visit Diagnoses Not on filedocumented in this encounter Additional Health Concerns Infection Onset Date Last Indicated Resolved Time Protective Environment 09/20/2022 09/20/202208/30 5:23 AM CDT Assessment Noted Time PHQ-9 Depression Total Score: 6 07/17/19 20 10:26 AM SUBSTATION MANAGER documented as of this encounter Care Teams Voice Over Announcer Relationship Specialty Start Date End Date Elsewhere, Pcp PCP - General Application Support Technician 06/27/19 documented as of this encounter
--- OUTSIDE RECORDS SUMMARY | 2024-09-11 11:40 | XMS_ITS | Encounter Summary ---
Author Organization [facility] Address [address] [place] [address] Care Team Providers Care Hydraulic Press Servicer Name Role Phone Elsewhere, Pcp Primary Care Provider Unavailabl e Reason for Visit * Reason Onset Date Comments Posaconazole Rx 07/12/2024 Encounter Details Date Type Department Care Team (Latest Contact Info) Description 07/12/2024 Clinical Communication Division of Pulmonary Medicine in [place], [place] [address] [place] [phone] Lauren Echeverria M.D. [address] [place] [address] Posaconazole Rx Social History Tobacco Use Types Packs/Day Years Used Date Smoking Tobacco: Never Smokeless Tobacco: Never Alcohol Use Standard Drinks/Week Comments Never 0 (1 standard drink = 0.6 oz pur e alcohol) [facility] Utilities Answer Date Recorded In the [...] week 06/30/2021 How often do you attend restorationism or pentecostal serv ices? Never 06/30/2021 Do you belong to any clubs o r organizations such as restorationism groups, unions, fraternal or athletic groups, or [...] and heating? Not hard at all 06/30/2021 [facility] of Occupat ional Health - Occupational [...] your living situation today? I have a [facility] place to live 07/19/2024 Education Answer Date Recorded What is the highest level of school you have completed or the highest degree you have received? Professional school degree (e.g., , DDS, DVM, GRACIELA) 06/30/2021 Sex and Gender Information Value Date Recorded Sex Assigned at Male 06/30/2021 12:19 PM CUSTOMER SERVICE ATTENDANT Legal Sex Male 7:31 AM CDT Gender Identity Male 06/30/2021 12:19 PM CUSTOMER SERVICE ATTENDANT Sexual Orientation Straight 06/30/2021 12 :19 PM CUSTOMER SERVICE ATTENDANT documented as of this encounter Functional Status * Intimate Partner Violence Question Answer Date of Assessment Author Within the last year, have y ou been humiliated or emotionally abused in other ways by your partner or ex-partner? No 07/19/2024 10:00 PM CUSTOMER SERVICE ATTENDANT Donovan Macdonald, M.S.N., R.N. Within the last year, have y ou been afraid of your partner or ex-partner? No 07/19/2024 10:00 PM CUSTOMER SERVICE ATTENDANT Nahun Macdonald, M.S.N., R.N. Within the last year, have y ou been raped or forced to have any kind of sexual activity by your partner or ex-partner? No 07/19/2024 10:00 PM Nahun aSha M.S.N., R.N. Within the last year, have y ou been kicked, hit, slapped, or otherwise physically hurt by your partner or ex-partner? No 07/19/2024 10:00 PM Nahun Saha M.S.N., R.N. * Are you deaf or do you have serious difficulty hearing? Answer Date of Assessment Author No 07/01/2024 10:08 AM Cheryl Mensah M.S.W., KashSBuddyW. * Are you blind or do you have serious difficulty seeing, even when wearing glasses? Answer Date of Assessment Author No 07/01/2024 10:08 AM Cheryl Mensah M.S.W., Aaron.S.W. * Do you have serious difficulty walking or climbing stairs? Answer Date of Assessment Author No 07/01/2024 10:08 AM Cheryl Mensah M.S.W., Maximo.G.S.W. * Do you have serious difficulty dressing or bathing? Answer Date of Assessment Author No 07/01/2024 10:08 AM Cheryl Mensah M.S.W., Aaron.S.W. * Because of a physical, mental, or emotional condition, do you have serious difficulty doing errandsalone such as visiting the doctor? Answer Date of Assessment Author No 07/01/2024 10:08 AM Cheryl Mensah M.S.W., Aaron.S.W. documented as of this encounter Mental Status * Because of a physical, mental, or emotional condition, do you have serious difficulty concentrating, remembering, or making decisions? (5 years old or older) Answer Entry Date Author No 07/01/2024 10:08 AM Cheryl Mensah M.S.W., Aaron.S.WBuddy documented in this encounter Miscellaneous Notes * Telephone Encounter - Shavonne Lindquist - 07/12/2024 11:29 AM CST Liliya, Caller: Keith from [facility] [phone] Message: Keith tried to page Dr. Prachi Pena regarding Posaconazole Rx. Patient's insuranceprefers fluconazole instead. Patient would like to pick it up by tomorrow at [facility]. Can you connect with Dr. Av Pena to make that happen? Thank you, Shavonne OMER SERVICE ATTENDANT documented in this encounter Plan of Treatment Upcoming Encounters Date Type Department Care Team (Late st Contact Info) Description 09/24/2024 7:45 AM CDT Appointment Department of Radiology, [facility] in [place], [place] [address] [place] [phone] Julio Soto M.D. [address] [place] [phone] 09/24/2024 9:30 AM CDT Diagnostic Division of Pulmonary Medicine in [place], [place] [address] [place] [phone] Marilu Castaneda P.A.-Nikki., M.S. [address] [place] [phone] 09/24/2024 10:40 AM CDT Appointment Department of Laboratory Medicine and Pathology, [facility] in [place], [place] [address] [place] [phone] Marilu Castaneda P.A.-C., M.S. [address] [place] [phone] 09/24/2024 2:30 PM CDT Office Visit Section of Infectious Diseases in [place], [place] [address] [place] [address] Julio Soto M.D. [address] [place] [phone] documented as of this encounter Visit Diagnoses Not on filedocumented in this encounter Additional Health Concerns Infection Onset Date Last Indicated Resolved Time Protective Environment 09/20/2022 09/20/202208/30 5:23 AM CDT Assessment Noted Time PHQ-9 Depression Total Score: 6 07/17/19 20 10:26 AM CUSTOMER SERVICE ATTENDANT documented as of this encounter Care Teams Hydraulic Press Servicer Relationship Specialty Start Date End Date Elsewhere, Pcp PCP - General Network Intelligence Analyst 06/27/19 documented as of this encounter
--- OUTSIDE RECORDS SUMMARY | 2024-09-11 11:40 | XMS_ITS | Encounter Summary ---
Author Organization [facility] Address [address] [place] [address] Care Team Providers Care Physician Office Specialist Name Role Phone Elsewhere, Pcp Primary Care Provider Unavailabl e Reason for Visit * Reason Onset Date Comments Rx Prior Authorization 07/11/2024 posaconaz ole (NoxafiL) [address] tablet Encounter Details Date Type Department Care Team (Latest Contact Info) Description 07/11/2024 Clinical Communication Division of Community Internal Medicine, [facility], in [place], [place] [address] [place] [phone] Lauren Echeverria M.D. [address] [place] [phone] Rx Prior Authorization (posaconazole (NoxafiL) [address] tablet) Social History Tobacco Use Types Packs/Day Years Used Date Smoking Tobacco: Never Smokeless Tobacco: Never Alcohol Use Standard Drinks/Week Comments Never 0 (1 standard drink = 0.6 oz pur e alcohol) [facility] Utilities Answer Date Recorded [...] How often do you attend advent or restorationist serv ices? Never 06/30/2021 Do [...] and heating? Not hard at all 06/30/2021 [facility] of Occupat ional Health - Occupational Stress [...] [facility] to [facility] 07/19/2024 Education Answer Date Recorded What is the highest level of school you have completed or the highest degree you have received? Professional school degree (e.g., MD, DDS, DVM, GRACIELA) 06/30/2021 Sex and Gender Information Value Date Recorded Sex Assigned at Male 06/30/2021 12:19 PM YIELD ENGINEER Legal Sex Male 7:31 AM CDT Gender Identity Male 06/30/2021 12:19 PM YIELD ENGINEER Sexual Orientation Straight 06/30/2021 12 :19 PM YIELD ENGINEER documented as of this encounter Functional Status * Intimate Partner Violence Question Answer Date of Assessment Author Within the last year, have y ou been humiliated or emotionally abused in other ways by your partner or ex-partner? No 07/19/2024 10:00 PM YIELD ENGINEER Donovan Macdonald, M.S.N., R.N. Within the last year, have y ou been afraid of your partner or ex-partner? No 07/19/2024 10:00 PM Nahun Coffman M.S.N., R.N. Within the last year, have y ou been raped or forced to have any kind of sexual activity by your partner or ex-partner? No 07/19/2024 10:00 PM Nahun Shaa M.S.N., R.N. Within the last year, have [...] No 07/01/2024 10:08 AM Cheryl Mensah M.S.W., KashSKyra. * Do you have serious difficulty walking or climbing stairs? Answer Date of Assessment Author No 07/01/2024 10:08 AM Cheryl Mensah M.S.W., KashS.W. * Do you have serious difficulty dressing or bathing? Answer Date of Assessment Author No 07/01/2024 10:08 AM Cheryl Mensah M.S.W., KashS.W. * Because of a physical, mental, or emotional condition, do you have serious difficulty doing errandsalone such as visiting the doctor? Answer Date of Assessment Author No 07/01/2024 10:08 AM Cheryl Mensah M.S.W., KashSWyatt documented as of this encounter Mental Status [...] 7:45 AM CDT Appointment Department of Radiology, [facility] in [place], [place] [address] [place] [phone] Julio Soto M.D. [address] [place] [phone] 09/24/2024 9:30 AM CDT Diagnostic Division of Pulmonary Medicine in [place], [place] [address] [place] [phone] Marilu Castaneda P.A.-C., M.S. [address] [place] [phone] 09/24/2024 10:40 AM CDT Appointment Department of Laboratory Medicine and Pathology, [facility] in [place], [place] [address] [place] [phone] Marilu Castaneda P.A.-C., M.S. [address] [place] [phone] 09/24/2024 2:30 PM CDT Office Visit Section of Infectious Diseases in [place], [place] [address] [place] [phone] Julio Soto M.D. [address] [place] [phone] documented as of this encounter Visit Diagnoses Not on filedocumented in this encounter Additional Health Concerns Infection Onset Date Last Indicated Resolved Time Protective Environment 09/20/2022 09/20/202208/30 5:23 AM CDT Assessment Noted Time PHQ-9 Depression Total Score: 6 07/17/19 20 10:26 AM YIELD ENGINEER documented as of this encounter Care Teams Physician Office Specialist Relationship Specialty Start Date End Date Elsewhere, Pcp PCP - General [employer] 06/27/19 documented as of this encounter
--- OUTSIDE RECORDS SUMMARY | 2024-09-11 11:40 | XMS_ITS | Encounter Summary ---
Author Organization [facility] Address [address] [place] [address] Care Team Providers Care Terminal System Operator Name Role Phone Elsewhere, Pcp Primary Care Provider Unavailabl e Reason for Visit * Reason Onset Date Comments Rx Denial 07/13/[address] tablet Encounter Details Date Type Department Care Team (Latest Contact Info) Description 07/13/2024 Clinical Communication Division of Community Internal Medicine, [facility], in [place], [place] [address] [place] [phone] Lauren Echeverria M.D. [address] [place] [phone] Rx Denial (Posaconazole 100MG dr tablet) Social History Tobacco Use Types Packs/Day Years Used Date Smoking Tobacco: Never Smokeless Tobacco: Never Alcohol Use Standard Drinks/Week Comments Never 0 (1 standard drink = 0.6 oz pur e alcohol) [facility] Utilities Answer Date Recorded In the past 12 months has e [employer], gas, oil, or water company threatened to [...] week 06/30/2021 How often do you attend yazidi or lutheran serv ices? Never 06/30/2021 Do you belong to any clubs o r organizations such as yazidi groups, unions, fraternal or athletic groups, or [...] and heating? Not hard at all 06/30/2021 [facility] of Occupat ional Health - Occupational Stress [...] your living situation today? I have a [facility] place to live 07/19/2024 Education Answer Date Recorded What is the highest level of school you have completed or the highest degree you have received? Professional school degree (e.g., MD, DDS, DVM, GRACIELA) 06/30/2021 Sex and Gender Information Value Date Recorded Sex Assigned at Male 06/30/2021 12:19 PM CHEMICAL STRENGTH TESTER Legal Sex Male 7:31 AM CDT Gender Identity Male 06/30/2021 12:19 PM CHEMICAL STRENGTH TESTER Sexual Orientation Straight 06/30/2021 12 :19 PM CHEMICAL STRENGTH TESTER documented as of this encounter Functional Status * Intimate Partner Violence Question Answer Date of Assessment Author Within the last year, have y ou been humiliated or emotionally abused in other ways by your partner or ex-partner? No 07/19/2024 10:00 PM CHEMICAL STRENGTH TESTER Donovan Macdonald, M.S.N., R.N. Within the last year, have y ou been afraid of your partner or ex-partner? No 07/19/2024 10:00 PM Nahun Coffman M.S.N., R.N. Within the last year, have y ou been raped or forced to have any kind of sexual activity by your partner or ex-partner? No 07/19/2024 10:00 PM Nahun Saha M.S.N., R.N. Within the last year, have [...] KashSKyra. * Do you have serious difficulty dressing or bathing? Answer Date of Assessment Author No 07/01/2024 10:08 AM Cheryl Mensah M.S.W., KashSKyra. * Because of a physical, mental, or [...] 07/01/2024 10:08 AM Cheryl Mensah M.S.W., L.G.S.W. documented in this encounter Plan of Treatment Upcoming Encounters Date Type Department Care Team (Late st Contact Info) Description 09/24/2024 7:45 AM CDT Appointment Department of Radiology, [facility], in [place], [place] [address] [place] [phone] Julio Soto M.D. [address] [place] [phone] 09/24/2024 9:30 AM CDT Diagnostic Division of Pulmonary Medicine in [place], [place] [address] [place] [phone] Marilu Castaneda P.A.-C., M.S. [address] [place] [phone] 09/24/2024 10:40 AM CDT Appointment Department of Laboratory Medicine and Pathology, [facility] in [place], [place] [address] [place] [phone] Marilu Castaneda P.A.-C., M.S. [address] [place] [phone] 09/24/2024 2:30 PM CDT Office Visit Section of Infectious Diseases in [place], [place] [address] [place] [phone] Julio Soto M.D. [address] [place] [phone] documented as of this encounter Visit Diagnoses Not on filedocumented in this encounter Additional Health Concerns Infection Onset Date Last Indicated Resolved Time Protective Environment 09/20/2022 09/20/202208/30 5:23 AM CDT Assessment Noted Time PHQ-9 Depression Total Score: 6 07/17/19 20 10:26 AM CHEMICAL STRENGTH TESTER documented as of this encounter Care Teams Terminal System Operator Relationship Specialty Start Date End Date Elsewhere, Pcp PCP - General Staff Radiologist 06/27/19 documented as of this encounter
--- OUTSIDE RECORDS SUMMARY | 2024-09-11 11:40 | XMS_ITS | Encounter Summary ---
Author Organization [facility] Address [address] [place] [address] Care Team Providers Care Data Steward Name Role Phone Elsewhere, Pcp Primary Care Provider Unavailabl e Encounter Details Date Type Department Care Team (Latest Contact Info) Description 07/20/2024 Clinical Communication Department of Cardiovascular Medicine in [place], [place] [address] [place] [phone] Guerda Carias [address] [place] [phone] Social History Tobacco Use Types Packs/Day Years Used Date Smoking Tobacco: Never Smokeless Tobacco: Never Alcohol Use Standard Drinks/Week Comments Never 0 (1 standard drink = 0.6 oz pur e alcohol) [facility] Utilities Answer Date Recorded In the past 12 months has f [facility] [employer], gas, oil, or water [employer] threatened to shut off services in your [...] week 06/30/2021 How often do you attend orthodox or restorationism serv ices? Never 06/30/2021 Do you belong to any clubs o r organizations such as orthodox groups, unions, fraternal or athletic groups, [...] and heating? Not hard at all 06/30/2021 [facility] of Occupat ional Health - Occupational [...] your living situation today? [facility] 07/19/2024 Education Answer Date Recorded What is the highest level of school you have completed or the highest degree you have received? Professional school degree (e.g., MD, DDS, DVM, GRACIELA) 06/30/2021 Sex and Gender Information Value Date Recorded Sex Assigned at Male 06/30/2021 12:19 PM SYSTEMS ENGINEERING MANAGER Legal Sex Male 7:31 AM CDT Gender Identity Male 06/30/2021 12:19 PM SYSTEMS ENGINEERING MANAGER Sexual Orientation Straight 06/30/2021 12 :19 PM SYSTEMS ENGINEERING MANAGER documented as of this encounter Functional [...] CDT Appointment Department of Radiology, [facility] in [place], [place] [address] [place] [phone] Julio Soto M.D. [address] [place] [phone] 09/24/2024 9:30 AM CDT Diagnostic Division of Pulmonary Medicine in [place], [place] [address] [place] [phone] Marilu Castaneda P.A.-C., M.S. [address] [place] [phone] 09/24/2024 10:40 AM CDT Appointment Department of Laboratory Medicine and Pathology, [facility] in [place], [place] [address] [place] [phone] Marilu Castaneda P.A.-C., M.S. [address] [place] [phone] 09/24/2024 2:30 PM CDT Office Visit Section of Infectious Diseases in [place], [place] [address] [place] [phone] Julio Soto M.D. [address] [place] [phone] documented as of this encounter Visit Diagnoses Not on filedocumented in this encounter Additional Health Concerns Infection Onset Date Last Indicated Resolved Time Protective Environment 09/20/2022 09/20/202208/30 5:23 AM CDT Assessment Noted Time PHQ-9 Depression Total Score: 6 07/17/19 20 10:26 AM SYSTEMS ENGINEERING MANAGER documented as of this encounter Care Teams Data Steward Relationship Specialty Start Date End Date Elsewhere, Pcp PCP - General Hydraulic Engineer 06/27/19 documented as of this encounter
[2024-09-11 11:52] VITALS: BP 143/74; PULSE 58; RESP 18; TEMP 36.3; O2SAT 94; BMI 23.2
--- NOTE | 2024-09-11 12:19 | ED_ITS ---
HPI - General Adult General Chief complaint: Shortness of Breath/Dyspnea Stated complaint: sent from [facility] Time Seen by Provider: 09/11/24 12:19 History of Present Illness HPI narrative: Patient reports shortness of breath especially with activity, even minimal that began about three weeks ago and has worsened. Was started on a water pill from cardiology about two weeks ago but patient has not noticed any improvement. Denies pain, congestion or fevers. 79-year-old man presenting to the emergency department with concern of increasing shortness of breath over the last 2 and half weeks. Apparently was initiated on 20 mg of daily furosemide from Cardiology about 2 weeks ago. He notes a history of mitral valve repair with clip. Apparently with suspected to be heading towards heart failure at some point. He is worried this has worsened. He has not had any fever cough. He is experiencing some orthopnea. Really though much more short of breath with walking/activity. 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 Seen here today for blood draw and sent to the emergency department for evaluation. Is not experiencing any chest pain. He does also have a history of paroxysmal atrial fibrillation and does take regular Coumadin. Already see that INR today was 3. He is fairly certain he is not in AFib today as he tends to be rather symptomatic. Does use metoprolol for rate control. Denies dark stools in fact have been rather lightly. 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 Related Data Home Medications ?Medication ?Instructions ?Recorded ?Confirmed alprazolam 0.25 mg tablet 0.25 mg PO BID PRN 12/16/21 09/13/24 magnesium chloride 71.5 mg 71.5 mg PO QDAY 02/15/22 09/13/24 (magnesium chloride) tablet,delayed release (Slow-Mag) tamsulosin 0.4 mg capsule (Flomax) 0.4 mg PO DAILY 02/15/22 09/13/24 lisinopril 10 mg tablet 15 mg PO BID 03/03/23 09/13/24 calcium carbonate (Tums) 300 mg PO BID PRN 03/31/23 09/13/24 levothyroxine 112 mcg tablet 112 mcg PO DAILY 06/28/24 09/13/24 (Synthroid) amiodarone 100 mg tablet 200 mg PO DAILY 08/02/24 09/13/24 ferrous sulfate 324 mg (65 mg 324 mg PO Q OTHER DAY 08/02/24 09/13/24 iron) tablet,delayed release metoprolol tartrate 25 mg tablet 50 mg PO BID 08/02/24 09/13/24 posaconazole 100 mg tablet,delayed 300 mg PO QDAY 08/02/24 09/13/24 release warfarin 7.5 mg tablet 7.5 mg PO QWEEK 08/02/24 08/23/24 furosemide 20 mg tablet 40 mg PO DAILY 09/13/24 09/13/24 Previous Rx's ?Medication ?Instructions ?Recorded amlodipine 5 mg tablet 5 mg PO DAILY 30 days #30 tabs 06/18/24 Allergies Allergy/AdvReac Type Severity Reaction Status Date / Time ibrutinib (From [place]) Allergy Intermediate Rash Verified 09/13/24 10:00 Penicillins Allergy Verified 09/13/24 10:00 Review of Systems Status of ROS: Reports: 6 or more systems reviewed and unremarkable except as noted in History and below [facility] Medical History Invasive aspergillosis ?B44.9 - Aspergillosis, unspecified (ICD-10) Viral pneumonia ?J12.9 - Viral pneumonia, unspecified (ICD-10) Pneumonitis ?J98.4 - Other disorders of lung (ICD-10) Immunocompromised ?D84.9 - Immunodeficiency, unspecified (ICD-10) Hypothyroid ?E03.9 - Hypothyroidism, unspecified (ICD-10) Right leg swelling ?M79.89 - Other specified soft tissue disorders (ICD-10) 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 - Malignant neoplasm of major salivary gland, unspecified (ICD-10) Anemia ?D64.9 - Anemia, unspecified (ICD-10) GERD (gastroesophageal reflux disease) ?K21.9 - Gastro-esophageal reflux disease without esophagitis (ICD-10) CAD (coronary artery disease) ?I25.10 - Atherosclerotic heart disease of [place] coronary artery without angina pectoris (ICD-10) Pulmonary nodules ?R91.8 - Other nonspecific abnormal finding of lung field (ICD-10) History of cardioversion ?Z98.890 - Other specified postprocedural states (ICD-10) CLL (chronic lymphocytic leukemia) (~08/2018) ?C91.10 - Chronic lymphocytic leukemia of B-cell type not having achieved remission (ICD-10) Malignant melanoma ?C43.9 - Malignant melanoma of skin, unspecified (ICD-10) Anxiety ?F41.9 - Anxiety disorder, unspecified (ICD-10) BPH with obstruction/lower urinary tract symptoms ?N40.1 - Benign prostatic hyperplasia with lower urinary tract symptoms (ICD- 10) ?N13.8 - Other obstructive and reflux uropathy (ICD-10) Prostate cancer ?C61 - Malignant neoplasm of prostate (ICD-10) Hypertension ?I10 - Essential (primary) hypertension (ICD-10) Paroxysmal atrial fibrillation ?I48.0 - Paroxysmal atrial fibrillation (ICD-10) Surgical History S/P mitral valve clip implantation (~2019) ?Z98.890 - Other specified postprocedural states (ICD-10) ?Z95.818 - Presence of other cardiac implants and grafts (ICD-10) History of tonsillectomy ?Z90.89 - Acquired absence of other organs (ICD-10) History of melanoma excision ?Z98.890 - Other specified postprocedural states (ICD-10) ?Z85.820 - Personal history of malignant melanoma of skin (ICD-10) History of cataract surgery ?Z98.49 - Cataract extraction status, unspecified eye (ICD-10) Hx of mitral valve repair ?Z98.890 - Other specified postprocedural states (ICD-10) Family History Other CHF (congestive heart failure) Hodgkins disease Social History Narrative: he is and here with his . He gets oncology care through [facility]. He gets primary care through [facility], Dr. Glenna Reilly. He does not smoke. He drinks 1 glass of red wine daily. Full code. Daughters are designated healthcare power of attorney general What is your current living situation?: I presently have a place to live Problems where you live: no known problems Problems where you live details: recently , they were each other's caregivers & now daughters have been staying with him periodically In the past 12 months, utilities in danger of being shut off: no In past 12 months, lack of transportation kept you from medical appts, meetings, work, or getting things needed for daily living: no In the past 12 mos, have been you worried that your food would run out before you had money to buy more?: never true In the past 12 mos, the food you bought just didn't last and you didn't have money to buy more?: never true Highest level 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 completed/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, [employer], 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, 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) Smoking Status: Never smoker Do you use any of these nicotine containing products: None Second hand tobacco smoke exposure: No How often do you have a drink containing alcohol: never How often do you have six or more drinks on one occasion: Never AUDIT-C Alcohol total score: 0 Non-prescribed substance use: denies use Caffeine: No How often does anyone, including family, friends and others, physically hurt you : never How often does anyone, including family, friends and others, insult or talk down to you: never How often does anyone, including family, friends and others, threaten you with harm: never How often does anyone, including family, friends and others, scream or curse at you: never service: No Exam Narrative: Exam Narrative: Very pleasant. NAD. Is not tachypneic or labored in his breathing. Lungs with generalized congestion and amplified auscultation. No wheeze. Heart appears to be in a slower but regular rate. Trace murmur? Soft little more than 1+ pitting edema in the right lower extremity reports is chronic. Some changes consistent with hemosiderin deposition as well. Also left arm with mild edema a reports as chronic as well. Abdomen soft nontender. Well-perfused peripherally. Const: Vital Signs, click to edit/add: Vital Signs - 24 hr 09/11/24 15:39 09/11/24 17:58 Temperature 97.4 F L 97.6 F Pulse Rate [Pulse Oximeter] 59 L 63 Respiratory Rate 18 18 Blood Pressure [Ri ght Upper Arm] 139/77 151/83 H Pulse Oximetry 95 92 Oxygen Delivery Me thod Room Air Room Air Documenting provider has reviewed patient's vital signs: yes Course Vital Signs Vital signs: Initial Vital Signs Temperature 97.3 F L 09/11/24 11:52 Temperature Source Temporal Artery Scan 09/11/24 11:52 Pulse Rate 58 L 09/11/24 11:52 Respiratory Rate 18 09/11/24 11:52 Blood Pressure 143/74 H 09/11/24 11:52 Blood Pressure Mean 97 09/11/24 11:52 Pulse Oximetry 94 09/11/24 11:52 Oxygen Delivery Method Room Air 09/11/24 11:52 Vital Signs Temperature 97.3 F L 09/11/24 11:52 Pulse Rate 58 L 09/11/24 11:52 Respiratory Rate 18 09/11/24 11:52 Blood Pressure 143/74 H 09/11/24 11:52 Pulse Oximetry 94 09/11/24 11:52 Oxygen Delivery Method Room Air 09/11/24 11:52 Temperature 97.6 F 09/11/24 17:58 Pulse Rate 63 09/11/24 17:58 Respiratory Rate 18 09/11/24 17:58 Blood Pressure 151/83 H 09/11/24 17:58 Pulse Oximetry 92 09/11/24 17:58 Oxygen Delivery Method Room Air 09/11/24 17:58 Medications Administered Medications: Discontinued Medications Generic Name Dose Route Start Last Admin Trade Name Freq PRN Reason Stop Dose Admin Furosemide 40 mg 09/11/24 16:47 09/11/24 17:59 Furosemide 10 Mg/Ml Inj IVP 09/11/24 16:48 40 mg ONCE ONE Administration Sodium Chloride 500 mls @ 500 mls/hr 09/11/24 13:39 09/11/24 14:36 0.9 % Sodium Chloride 500 Ml IV 09/11/24 14:38 Infused .Q1H ONE Infusion Medical Decision Making [facility] Narrative Medical decision making narrative: Pulmonary embolus certainly is in differential though is already anticoagulated. He is not hypoxic at 94% reviewing baseline. I reviewed labs [place] [address] hemoglobin has drifted down little bit at 8.5 when checked nearly 3 weeks ago was 10.2. Sodium of 130 and prior was 133 about 3 weeks ago. Total bili is little elevated at 1.6 as are transaminases. TSH was collected and is pending Of note stool occult blood was positive 2 years ago Anemia could be compounding his exertional dyspnea. I have requested swab collection for COVID influenza and RSV. Certainly might be in worsening heart failure. Adding on labs in this regard. Chest x-ray also pending. Appears slightly well otherwise. Check EKG for atrial fibrillation Chest x-ray independently reviewed by me looks to show primarily interstitial congestion some patchiness in bilateral airspaces. Radiology over-read below Indication: Exertional dyspnea Technique: PA and lateral views of the chest. Comparison: 06/30/2024, 06/14/2024. Findings: Low lung volumes. Mildly enlarged cardiomediastinal silhouette with calcified aortic knob. Clip overlies the left lower chest. Moderate interstitial prominence and mild patchy bilateral airspace opacities. Small left pleural effusion. No visualized pneumothorax. Moderate degenerative changes of the visualized spine. Impression: 1. Moderate interstitial prominence and mild patchy bilateral airspace opacities. Findings are compatible with multifocal infection or pulmonary edema. 2. Small left pleural effusion. Dictated by Cali Mahoney MD @ 09/11/2024 1:57:19 PM Did hear from Oncology and they are requesting CT imaging of the chest and sounds like for evidence of worsening CLL or aspergillosis. I would note that i s anticoagulated appropriately with unremarkable vitals and symptoms saw unlikely to intervene/treat differently any pulmonary embolus Indication: eval for progression of CLL, aspergillosis, or PE Technique: CT angiogram of the chest was performed for evaluation of pulmonary embolism. 95 mL of Isovue 370 intravenous contrast was administered. Comparison: 06/30/2024, 06/28/2024. Findings: CARDIOVASCULAR: Diagnostic quality: Contrast opacification of the pulmonary arterial circulation is adequate for assessment of pulmonary embolism. Study is not significantly limited by respiratory motion artifact. Pulmonary arteries: No filling defects to suggest pulmonary embolism. Not enlarged. Heart: No interventricular septal deviation. Normal in size. Moderate coronary artery calcification. Mitral valvular clip. Pericardium: No pericardial effusion. Thoracic aorta: Mild calcification. Normal cervical branching. REMAINING CHEST: Medical devices: None. Thyroid: Normal. Lymph nodes: Supraclavicular, axillary, mediastinal, and hilar lymphadenopathy are seen; for example: 2.1 centimeter right lower paratracheal (). Other mediastinal structures: No significant abnormality. Lung parenchyma: Moderate interlobular septal thickening and diffuse ground-glass airspace opacities. Interval decrease in right middle lobe masslike consolidation now measuring 2.3 x 1.4 centimeter (5/125), previously measuring 5.1 x 3.5 centimeter. Interval decrease in size of left upper lobe consolidation. Airways: Mild bronchial wall thickening. Pleura: Interval increase in moderate [id number]-right pleural effusions. Chest wall: Mild bilateral gynecomastia. Upper abdomen: Partial visualization of retroperitoneal and mesenteric lymphadenopathy. Musculoskeletal: Moderate degenerative changes of the visualized spine. Impression: 1. No acute pulmonary emboli. 2. Interval increase in moderate [id number]-right pleural effusions. Moderate interlobular septal thickening and diffuse ground-glass airspace opacities are favored to represent moderate pulmonary edema, though superimposed infection or inflammation is difficult to exclude. 3. Interval decrease in right middle lobe masslike consolidation now measuring 2.3 x 1.4 centimeter, previously measuring 5.1 x 3.5 centimeter. Differential includes infection or malignancy. 4. Intrathoracic and intra-abdominal lymphadenopathy, which are compatible with history of CLL. Please note that all CT scans at this facility use dose modulation, iterative reconstruction, and/or weight-based dosing when appropriate to reduce radiation dose to as low as reasonably achievable. Dictated by Cali Mahoney MD @ 09/11/2024 3:23:44 PM Is not in atrial fibrillation. Swabs for COVID, influenza, RSV are negative. Perhaps would benefit from increase in diuretic; is already a little hyponatremic. He notes this to be relatively chronic. Last checked it was 133 ProBNP earlier today was 3190. Last available labs and I have from 5 or 6 weeks ago was 1280 Creatinine is elevated little bit to 1.1 from 0.9 last checked 3 weeks ago or so. Note history of lisinopril and Lasix Discussed this case briefly with Cardiology on-call. As anticipated recommendations are to diurese a little more. Could increase amlodipine to 10 mg to improve blood pressure closer to 125 systolic though I would note that already struggles with lower extremity edema particularly on the right leg. Will be following up closely with Oncology for recheck and potential transfusion and he will reach out to Cardiology as well. CT imaging has been forwarded to [place]. Stable vitals on discharge. Ambulated without notable desaturation. See patient discharge plan for further discussion I am sorry it might be a longer night for you as you diurese with this medication. Anticipate follow-up from Oncology regarding rechecking your hemoglobin which I would anticipate by the end of the week or least by Tuesday. I understand you have an appointment on . I am anticipating them reviewing her CT imaging as well. As you marianne will also need to watch your creatinine. You said your blood pressures typically are little lower at home so this might actually be in an acceptable range and perhaps we can hold on taking more amlodipine; just continue usual dose of amlodipine at 5 mg daily. Furosemide though I would like you to increase to 40 mg daily. You can take 20 mg in the morning and 20 mg in the early afternoon or take entire dose altogether. Please discuss this treatment with Cardiology within the next few days. Return for fever, chest pain, increasing and persistent shortness of breath. Medical Records Medical records reviewed: Yes I reviewed the patient's medical records Lab Data Lab results reviewed: Yes I reviewed the patient's lab results Labs: Lab Results 09/11/24 09/11/24 09/11/24 Range/Units 11:25 12:31 12:51 Troponin I < 0.01 (0.01-0.04) ng/mL NT-Pro-B Natriuret Pep 3190 pg/mL SARS-CoV-2 (PCR) Negative SARS-CoV-2 (Negative) Influenza Type A (PCR) Negative PCR FLU A (Negative) Influenza Type B (PCR) Negative PCR FLU B (Negative) RSV (PCR) Negative PCR RSV (Negative) Lab Acknowledgement Test Added ECG Data Attestation: I personally reviewed and interpreted this ECG as follows: (Sinus rhythm. QTC of 488. Rate of 60) Discharge Plan Discharge Clinical Impression: Heart failure, Anemia, Aspergillosis, Pleural effusion Patient Disposition: Home, Self-Care Condition: Stable Additional Instructions: I am sorry it might be a longer night for you as you diurese with this medication. Anticipate follow-up from Oncology regarding rechecking your hemoglobin which I would anticipate by the end of the week or least by Tuesday. I understand you have an appointment on . I am anticipating them reviewing her CT imaging as well. As you marianne will also need to watch your creatinine. You said your blood pressures typically are little lower at home so this might actually be in an acceptable range and perhaps we can hold on taking more amlodipine; just continue usual dose of amlodipine at 5 mg daily. Furosemide though I would like you to increase to 40 mg daily. You can take 20 mg in the morning and 20 mg in the early afternoon or take entire dose altogether. Please discuss this treatment with Cardiology within the next few days. Return for fever, chest pain, increasing and persistent shortness of breath. Prescriptions: No Action Slow-Mag 71.5 mg tablet,delayed release (DR/EC) 71.5 mg PO QDAY tamsulosin [Flomax] 0.4 mg capsule 0.4 mg PO DAILY amiodarone 100 mg tablet 200 mg PO DAILY metoprolol tartrate 25 mg tablet 50 mg PO BID calcium carbonate [Tums] 300 mg (750 mg) tablet,chewable 300 mg PO BID PRN ferrous sulfate 324 mg (65 mg iron) tablet,delayed release (DR/EC) 324 mg PO Q OTHER DAY warfarin 7.5 mg tablet 7.5 mg PO QWEEK Patient Comments: dose varies base on INR posaconazole 100 mg tablet,delayed release (DR/EC) 300 mg PO QDAY alprazolam 0.25 mg tablet 0.25 mg PO BID PRN lisinopril 10 mg tablet 15 mg PO BID furosemide 20 mg tablet 40 mg PO DAILY Rx Instructions: as directed by PA in engineering faculty member (Benigno) amlodipine 5 mg Tablet 5 mg PO DAILY 30 Days Qty: 30 0RF levothyroxine [Synthroid] 112 mcg tablet 112 mcg PO DAILY Rx Instructions: Take once daily in the morning at least an hour before food or other medications. Follow Up/Referrals: GLENNA REILLY DO [Primary Care Provider] - Stand Alone Forms: [employer] Info Instructions
--- OUTSIDE RECORDS SUMMARY | 2024-09-11 12:29 | XMS_ITS | Clinical Summary ---
Author Organization [facility] Address [address] [place] [address] Care Team Providers Care Explosive Technician Name Role Phone Nikki Reilly DO Primary Care Provider [phone] Allergies Active Allergy Reactions Criticality Noted Date [...] Department Care Team Description 09/05/2024 Anticoagulation (warfarin) [facility] [address] [place] [address] 1, [facility] Anticoagulation 09/04/2024 Orders Only [facility] Scanner 1 scan: (1-Ord) [facility], INR RESULTS, 09/04/2024 08/29/2024 Anticoagulation (warfarin) [facility] [address] [place] [address] 1, [facility] Anticoagulation 08/29/2024 Orders Only [facility] [address] [place] [address] Erma Trejo, [facility] 1 scan: (1-Ord) [facility], INR, 2024 08/22/2024 Anticoagulation (warfarin) [facility] [address] [place] [address] 1, [facility] Anticoagulation (Outside Lab) 08/21/2024 Orders Only [facility] Scanner 1 scan: (1-Ord) [facility], INR, 08/21/2024 08/20/2024 Telephone [facility] [address] [place] [address] Nikki Reilly DO Results (Lab results /) 08/18/2024 Anticoagulation (warfarin) [facility] [address] [place] [address] 1, [facility] Anticoagulation 08/17/2024 1:30 PM CDT Orders Only [facility] [address] [place] [address] Lab, [facility] 08/17/2024 Travel 08/13/2024 Anticoagulation (warfarin) [facility] [address] [place] [address] 1, [facility] Anticoagulation (Outside Lab) 08/11/2024 Telephone [facility] [address] [facility] [place] [address] Angela Reillyi, DO Anticoagulation (INR Result) 08/10/2024 Orders Only [facility] Scanner 1 scan: (1-Ord) [place], INR, 08/10/2024 08/08/2024 Anticoagulation (warfarin) [facility] [address] [facility] [place] [address] 1, [facility] Anticoagulation (Outside lab) 08/07/2024 Orders Only [facility] Scanner 1 scan: (1-Ord) [facility], INR RESULTS, 08/07/2024 08/02/2024 Orders Only [facility] Scanner 1 scan: (1-Ord) [facility], INR, 08/02/2024 08/02/2024 Anticoagulation (warfarin) [facility] [address] [facility] [place] [address] 1, [facility] Anticoagulation (Outside Lab) 08/02/2024 Telephone [facility] [place] [facility] [place] [address] Nikki Reilly, DO Anticoagulation (Lab order fax request. ) 08/01/2024 3:30 PM DISTRIBUTION CENTER SUPERVISOR Office Visit [facility] [address] [facility] [place] [address] Noah Clements MD Sleep Consult 08/01/2024 Travel 07/31/2024 Orders Only [facility] [address] [facility] [place] [address] Angela Reillyi, DO 1 scan: (1-Ord) [facility]-EKG-2.24.25 07/30/2024 12:50 PM DISTRIBUTION CENTER SUPERVISOR Office Visit [address] [place] [address] Nikki Reilly DO Hospital F/U (DOD 07/29 from [facility] ) 07/30/2024 Anticoagulation (warfarin) [facility] [place] [facility] [place] [address] 1, [facility] Anticoagulation (OV (Initial ED) ) 07/30/[address] [place] [address] Nikki Reilly DO Anticoagulation (Standing lab orders ) 07/30/[address] [place] [address] Nikki Reilly DO Refill Request (posaconazole (NOXAFIL) 100 mg delayed release tablet/) 07/30/2024 Travel 07/19/2024 8:30 AM DISTRIBUTION CENTER SUPERVISOR Nurse/Clinic Staff Only [address] [place] [address] Testing (HST Download ) 07/18/2024 2:15 PM DISTRIBUTION CENTER SUPERVISOR Nurse/Clinic Staff Only [address] [place] [address] Testing (HST setup) 07/18/2024 Procedure Only [address] [place] [address] Noah Clements MD Results (HST) 07/18/2024 Travel 07/16/2024 11:15 AM DISTRIBUTION CENTER SUPERVISOR Ancillary Procedure [address] [place] [address] 07/16/2024 8:05 AM DISTRIBUTION CENTER SUPERVISOR Office Visit [address] [place] [address] Nikki Reilly DO Hospital F/U (06/30/24 - 07/07/2024 [facility] [place] - Pneumonia ) 07/16/2024 Travel 07/10/[address] [place] [address] Nikki Reilly DO Refill Request (Tamsulosin) 06/30/2024 Orders Only [facility] Scanner 1 scan: (1-Ord) [facility], CT CHEST W CON, 06/30/2024 06/28/2024 Orders Only [facility] Scanner 1 scan: (1-Ord) [facility], CT CHEST W CON, 06/28/2024 06/26/2024 1:40 PM DISTRIBUTION CENTER SUPERVISOR Office Visit [facility] [address] [place] [address] Nikki Reilly, Hospital F/U (Pneumonitis - 06/12-06/18 - reaction from Keytruda? ); Mouth/Lip Problem (Possible oral thrush? ) 06/26/2024 Travel 06/21/2024 Orders Only [facility] Scanner 1 scan: (1-Ord) [place], CHEST W, 06/21/2024 06/14/2024 Orders Only [facility] Scanner 1 scan: (1-Ord) [facility], XR CHEST 1V PORTABLE, 06/14/2024 06/14/2024 Orders Only [facility] Scanner 1 scan: (1-Ord) [place], CHEST W/CON, 06/14/2024 from Last 3 Months [...] on file Legal Sex Male 7:17 AM DISTRIBUTION CENTER SUPERVISOR Gender Identity Not on file Sexual Orientation Not on file Obstetrics History Last Filed Vital Signs Vital Sign Reading Time Taken Comments Blood Pressure 143/75 08/01/2024 3:29 PM DISTRIBUTION CENTER SUPERVISOR Pulse 71 08/01/2024 3:29 PM DISTRIBUTION CENTER SUPERVISOR Temperature 36.9 C (98.4 F) 04/23/2020 11:09 AM DISTRIBUTION CENTER SUPERVISOR Respiratory Rate 16 03/20/2020 2:20 PM CDT Oxygen Saturation 95% 08/01/2024 3:29 PM DISTRIBUTION CENTER SUPERVISOR Inhaled Oxygen Concentration - - Weight 69.9 kg (154 lb) 08/01/2024 3:29 PM DISTRIBUTION CENTER SUPERVISOR Height 175.2 cm (5' 8.98) 08/01/2024 3:29 PM CS T Body Mass Index 22.76 08/01/2024 3:29 PM DISTRIBUTION CENTER SUPERVISOR Plan of Treatment Upcoming Encounters Date Type Department Care Team (Late st Contact Info) Description 09/26/2024 2:00 PM CDT Office Visit [facility] [address] [place] [address] Noah Clements MD [address] [place] [address] Health Maintenance Due Date Last Done Comments [...] Routine 08/10/2024 SCAN-LABORATORY REPORT 5 12:00 AM DISTRIBUTION CENTER SUPERVISOR INR,POCT Routine 08/07/2024 SCAN-LABORATORY REPORT 12:00 AM DISTRIBUTION CENTER SUPERVISOR SCAN-LABORATORY REPORT 12:00 AM DISTRIBUTION CENTER SUPERVISOR INR,POCT Routine 08/02/2024 EKG 12 LEAD Routine 07/31/2024 4:12 PM DISTRIBUTION CENTER SUPERVISOR Aspergillus (HC) Medication management DC READING EKG - NO CHARGE, COMP ONLY Routine 07/31/2024 4:11 PM DISTRIBUTION CENTER SUPERVISOR Aspergillus (HC) Medication management CBC WITH AUTO DIFFERENTIAL Routine 07/30/2024 2:04 PM DISTRIBUTION CENTER SUPERVISOR Aspergillus (HC) Medication management COMP METABOLIC PANEL Routine 07/30/2024 2:04 PM DISTRIBUTION CENTER SUPERVISOR Aspergillus (HC) Medication management AMIODARONE (CORDARONE) Routine 2:02 PM DISTRIBUTION CENTER SUPERVISOR Aspergillus (HC) Medication management PROTIME-INR Routine 07/30/2024 2:01 PM DISTRIBUTION CENTER SUPERVISOR Longstanding persistent atrial fibrillation (HC) HOME SLEEP TEST TYPE 3 PORTABLE Routine 07/18/2024 11:59 PM DISTRIBUTION CENTER SUPERVISOR Suspected sleep apnea US VENOUS LOWER EXTREMITY RIGHT STAT 07/16/2024 9:34 AM DISTRIBUTION CENTER SUPERVISOR Edema of right lower extremity FERRITIN Routine 07/16/2024 9:08 AM DISTRIBUTION CENTER SUPERVISOR Normocytic anemia IRON PLUS IRON BINDING CAP Routine 07/16/2024 9:08 AM DISTRIBUTION CENTER SUPERVISOR Normocytic anemia VITAMIN B12 Routine 07/16/2024 9:08 AM DISTRIBUTION CENTER SUPERVISOR Normocytic anemia FOLIC ACID Routine 07/16/2024 9:08 AM DISTRIBUTION CENTER SUPERVISOR Normocytic anemia HEMOGLOBIN Routine 07/16/2024 9:08 AM DISTRIBUTION CENTER SUPERVISOR Normocytic anemia SCAN-CT INTERPRETATION 5 12:00 AM DISTRIBUTION CENTER SUPERVISOR SCAN-CT INTERPRETATION 5 12:00 AM DISTRIBUTION CENTER SUPERVISOR SCAN-CT INTERPRETATION 5 12:00 AM DISTRIBUTION CENTER SUPERVISOR SCAN-RADIOLOGY REPORT 06/14/2024 12:00 AM DISTRIBUTION CENTER SUPERVISOR SCAN-CT INTERPRETATION 5 12:00 AM DISTRIBUTION CENTER SUPERVISOR ANTI HCV Routine 03/09/2018 10:39 AM CDT [...] resultswithin the time period is included. INR 3.0(SENIOR NETWORK SECURITY ENGINEER AL) 0.0 - 1.2 [facility] Blood BLOOD SPECIMEN / Unknown 2024 11:37 AM CDT us [employer] DO LABORATORY Final Result Performing Organization Address [facility] Co de Phone Number [address] [address] * (ABNORMAL) AMIODARONE (CORDARONE) (08/17/2024 1:27 PM CDT) Only the most recent of2 resultswithin the time period is included. AMIODARONE 1.2(L) 1.5 - 2.5 mcg/mL [employer]/ [employer] [facility] DESETHYLAMIODARONE 0.4(L) 1.5 - 2.5 mcg/mL [facility]/ [employer] [facility] [place] Comment: TOXIC: >2.5 Toxic effects have been observed at levels as low as 2.0 mcg/mL. This test was developed and its analytical performance characteristics have been determined by [employer], [place]. It has not been cleared or approved by the U.S. Food and Drug Administration. This assay has been validated pursuant to the CLIA regulations and is used for clinical purposes. Blood BLOOD SPECIMEN / Unknown 08/17/2024 1:27 PM CDT 08/17/2024 1:28 PM CDT [employer] DO SEND OUTS Final Result Performing Organization Address City/[facility]/ZIP Co de Phone Number [facility]ERIN THAPA [address] [place], [place] , [facility] [address] [facility] [place] * (ABNORMAL) PROTIME-INR [[id number]] - Standing Order (08/17/2024 1:26 PM CDT) Only the most recent of2 resultswithin the time period is included. INR 3.4(H) <1.3 08/17/2024 10:17 PM CDT [facility] PROTIME 39.3(H) 10.6 - 12.4 sec 08/17/2024 10:17 PM CDT [facility] Blood BLOOD SPECIMEN / Unknown [facility] / Unknown 08/17/2024 1:26 PM CDT 08/17/2024 1:26 PM CDT Narrative [facility] - 08/17/2024 10:17 PM CDT Therapeutic [...] us Adei Shaqra DO HEMATOLOGY Final Result [facility] [address] [place] [address], [place] * EKG 12 LEAD (07/31/2024 4:12 PM DISTRIBUTION CENTER SUPERVISOR) us Adei Shaqra DO EKG ORD Final Result * DC READING EKG - NO CHARGE, COMP ONLY (07/31/2024 4:11 PM DISTRIBUTION CENTER SUPERVISOR) us Adei Venkatqra DO PB - PROVIDER READINGS Final Res ult * (ABNORMAL) CBC AND DIFFERENTIAL (07/30/2024 2:04 PM DISTRIBUTION CENTER SUPERVISOR) WHITE BLOOD CELL COUNT 43.6(H) 3.8 - [...] Wesley EOSINOPHILS 0.5 % [facility] BASOPHILS 0.7 % [facility] [place] CBC (INCLUDES DIFF/PLT) COMMENTS [facility] [place] Comment: Few atypical lymphocytes noted Smudge cells present. Blood BLOOD SPECIMEN / Unknown 07/30/2024 2:04 PM DISTRIBUTION CENTER SUPERVISOR 07/30/2024 2:05 PM DISTRIBUTION CENTER SUPERVISOR us Nikki Venkatlarisa DO HEMATOLOGY Final Result [employer]) [facility] [address] [place] [address], [facility] [address] [place] [address] * (ABNORMAL) COMP METABOLIC PANEL (07/30/2024 2:04 PM DISTRIBUTION CENTER SUPERVISOR) GLUCOSE 104(H) 65 - 99 mg/dL [employer] Comment: Fasting reference interval For someone without known diabetes, a glucose value between 100 and 125 mg/dL is consistent with prediabetes and should be confirmed with a follow-up test. UREA NITROGEN (BUN) 25 7 - 25 mg/dL [facility] [place] CREATININE 1.05 0.70 - 1.28 mg/dL [facility] [place] EGFR 73 > OR = 60 mL/min/1. 73m2 [facility] [place] BUN/CREATININE RATIO SEE NOTE: 6 - 22 (calc) [facility] [place] Comment: Not Reported: BUN and Creatinine are within reference range. SODIUM 136 135 - 146 mmol/L [facility] [place] POTASSIUM 4.6 3.5 - 5.3 mmol/L [facility] CHLORIDE 104 98 - 110 mmol/L [facility] CARBON DIOXIDE 21 20 - 32 mmol/L [facility] CALCIUM 8.7 8.6 - 10.3 mg/dL [facility] [place] PROTEIN, TOTAL 5.4(L) 6.1 - 8.1 g/dL [facility] [place] ALBUMIN 3.7 3.6 - 5.1 g/dL [facility] [employer] [place] GLOBULIN 1.7(L) 1.9 - 3.7 [...] BLOOD SPECIMEN / Unknown 07/30/2024 2:04 PM DISTRIBUTION CENTER SUPERVISOR 07/30/2024 2:05 PM DISTRIBUTION CENTER SUPERVISOR us Nikki Venkatlarisa DO CHEMISTRY Final Result [facility] [address] [place] [address], [facility] [address] [place] [address] * HOME SLEEP TEST TYPE 3 PORTABLE (07/18/2024 11:59 PM DISTRIBUTION CENTER SUPERVISOR) Narrative Noah Clements MD - 07/18/2024 11:59 PM DISTRIBUTION CENTER SUPERVISOR Noah Clements MD 07/21/2024 4:43 PM Home Sleep Test Name: Chad Jensen Location: [facility] Study notes: This is a single night home sleep apnea test. The study is performed in the context of a clinical suspicion for sleep apnea. Chad eJnsen ( 1945) is studied using a T3 Device using nasal pressure transducer, thoracoabdominal respiratory impedence plethysmography belts, pulse oximetry, snore microphone and actigraphy for body position. The study is scored by a RPSGT and interpreted by a Diplomate of the [place] [employer]. Raw summary data [...] % Duration > 100 bpm: 183.7 m [facility] SLEEP CENTER Final Result * US VENOUS LOWER EXTREMITY RIGHT (07/16/2024 9:34 AM DISTRIBUTION CENTER SUPERVISOR) Anatomical Region Laterality Modality LEGS, LEG R, Abdomen Ultrasound 07/16/2024 9:43 AM DISTRIBUTION CENTER SUPERVISOR Impressions 07/16/2024 9:43 AM DISTRIBUTION CENTER SUPERVISOR Normal venous ultrasound exam. No evidence of deep vein thrombosis within the right lower extremity. Dictated by Ron Walters MD @ 07/16/2024 9:43:14 AM (Electronically Signed) Narrative 07/16/2024 9:43 AM DISTRIBUTION CENTER SUPERVISOR For Patients: As a result of the [...] PLUS IRON BINDING CAP (07/16/2024 9:08 AM DISTRIBUTION CENTER SUPERVISOR) [facility] IRON, TOTAL 45(L) 50 - 180 mcg/dL [facility] IRON BINDING CAPACITY 298 250 - 425 mcg/dL (calc) [facility] [place] % SATURATION 15(L) 20 - 48 % (calc) [facility] [place] Blood BLOOD SPECIMEN / Unknown 07/16/2024 9:08 AM DISTRIBUTION CENTER SUPERVISOR 07/16/2024 9:08 AM DISTRIBUTION CENTER SUPERVISOR Nikki Reilly DO CHEMISTRY Final Result Performing Organization Address [facility]/ZIP Co de Phone Number [employer]) [address] [place] [address], [employer] [address] [place] [address] * (ABNORMAL) HEMOGLOBIN (07/16/2024 9:08 AM DISTRIBUTION CENTER SUPERVISOR) [facility] HEMOGLOBIN 10.8(L) 13.2 - 17.1 g/dL [facility] [place] Blood BLOOD SPECIMEN / Unknown 07/16/2024 9:08 AM DISTRIBUTION CENTER SUPERVISOR 07/16/2024 9:08 AM DISTRIBUTION CENTER SUPERVISOR [facility] Venkatq DO HEMATOLOGY Final Result Performing Organization Address [facility]/ZIP Co de Phone Number [employer]) [facility] [address] [place] [address], [employer] [address] [place] [address] * FOLIC ACID (07/16/2024 9:08 AM DISTRIBUTION CENTER SUPERVISOR) [facility] FOLATE, SERUM >24.0 ng/mL [facility] Comment: Reference Range Low: <3.4 Borderline: 3.4-5.4 Normal: >5.4 Blood BLOOD SPECIMEN / Unknown 07/16/2024 9:08 AM DISTRIBUTION CENTER SUPERVISOR 07/16/2024 9:08 AM DISTRIBUTION CENTER SUPERVISOR Nikki Venkatqra DO CHEMISTRY Final Result Performing Organization Address [facility]/ZIP Co de Phone Number [facility] [address] [place] [phone], [facility] [address] [place] [address] * (ABNORMAL) FERRITIN (07/16/2024 9:08 AM DISTRIBUTION CENTER SUPERVISOR) Pathologist [facility] FERRITIN 555(H) 24 - 380 ng/mL [facility] Olson Blood BLOOD SPECIMEN / Unknown 07/16/2024 9:08 AM DISTRIBUTION CENTER SUPERVISOR 07/16/2024 9:08 AM DISTRIBUTION CENTER SUPERVISOR [employer] Robledolarisa DO CHEMISTRY Final Result Performing Organization Address [facility] Co de Phone Number [employer]) [address] [address], [facility] [address] [place] [address] * VITAMIN B12 (07/16/2024 9:08 AM DISTRIBUTION CENTER SUPERVISOR) [facility] VITAMIN B12 328 200 - 1,100 pg/mL [facility]- eugenio Wesley Comment: Please Note: Although the [...] BLOOD SPECIMEN / Unknown 07/16/2024 9:08 AM DISTRIBUTION CENTER SUPERVISOR 07/16/2024 9:08 AM DISTRIBUTION CENTER SUPERVISOR us Adei Shaqra DO CHEMISTRY Final Result Performing Organization Address City/[facility]/ZIP Co de Phone Number [facility] [address] [place] [address], [place] [phone] [facility] [address] [place] [address] * SCAN-CT INTERPRETATION (06/30/2024 12:00 AM DISTRIBUTION CENTER SUPERVISOR) Only the most recent of4 resultswithin the time period is included. Anatomical Region Laterality Modality Other us Scanner OTHER Final Result * SCAN-RADIOLOGY REPORT (06/14/2024 12:00 AM DISTRIBUTION CENTER SUPERVISOR) Anatomical Region Laterality Modality Other us Scanner OTHER Final Result * ANTI HCV [[id number]] (03/09/2018 10:39 AM CDT) HEPATITIS C ANTIBODY Non-React [place] Non-React [place] 03/09/2018 5:05 PM CDT [facility] Comment:Antibodies to HCV no t detected; does not exclude the possibility of exposure to HCV. Blood BLOOD SPECIMEN / Unknown Venipuncture / Unknown 03/09/2018 10:39 AM CDT 03/09/2018 10:39 AM CDT us Ron Garcia MD SEND OUTS Final Resu lt Performing Organization Address City/[facility]/ZIP Co de Phone Number [facility] [address] [place] [address], [place] from Last 3 Months or Most Recently Relevant to Health Maintenance Insurance MEDICARE PART A HB ONLY MEDICARE PART B HB ONLY [place] [place] [place] HB ONLY [place] MR PB ONLY Advance Directives * Full Code (Latest Code Status on File) Date Activated Date Inactivated Comments 11/22/2011 11:07 AM 11/22/2011 3:00 PM * Full Code Date Activated Date Inactivated Comments 11/22/2011 9:03 AM 11/22/2011 11:07 AM Care Teams Explosive Technician Relationship Specialty Start Date End Date Nikki Reilly DO [address] [facility] [address] PCP - General Family Practice 12/15/22
--- NOTE | 2024-09-11 12:51 | CRLHL7_ITS ---
For Patients: As a result of the Century Cures Act, medical imaging exams and procedure reports are released immediately into your electronic medical record. You may view this report before your referring provider. If you have questions, please contact your health care provider. Indication: Exertional dyspnea Technique: PA and lateral views of the chest. Comparison: 06/30/2024, 06/14/2024. Findings: Low lung volumes. Mildly enlarged cardiomediastinal silhouette with calcified aortic knob. Clip overlies the left lower chest. Moderate interstitial prominence and mild patchy bilateral airspace opacities. Small left pleural effusion. No visualized pneumothorax. Moderate degenerative changes of the visualized spine. Impression: 1. Moderate interstitial prominence and mild patchy bilateral airspace opacities. Findings are compatible with multifocal infection or pulmonary edema. 2. Small left pleural effusion. Dictated by Cali Mahoney MD @ 09/11/2024 1:57:19 PM (Electronically Signed)
[2024-09-11 13:20] LABS: NT Pro B Type NatriureticPept* 3190 pg/mL
[2024-09-11 13:27] LABS: Troponin I* < 0.01 ng/mL (0.01-0.04)
[2024-09-11 13:36] LABS: PCR FLU A Negative PCR FLU A (Negative); PCR FLU B Negative PCR FLU B (Negative); PCR RSV Negative PCR RSV (Negative); SARS PCR* Negative SARS-CoV-2 (Negative)
--- NOTE | 2024-09-11 13:38 | CRLHL7_ITS ---
For Patients: As a result of the 21st Century Cures Act, medical imaging exams and procedure reports are released immediately into your electronic medical record. You may view this report before your referring provider. If you have questions, please contact your health care provider. Indication: eval for progression of CLL, aspergillosis, or PE Technique: CT angiogram of the chest was performed for evaluation of pulmonary embolism. 95 mL of Isovue 370 intravenous contrast was administered. Comparison: 06/30/2024, 06/28/2024. Findings: CARDIOVASCULAR: Diagnostic quality: Contrast opacification of the pulmonary arterial circulation is adequate for assessment of pulmonary embolism. Study is not significantly limited by respiratory motion artifact. Pulmonary arteries: No filling defects to suggest pulmonary embolism. Not enlarged. Heart: No interventricular septal deviation. Normal in size. Moderate coronary artery calcification. Mitral valvular clip. Pericardium: No pericardial effusion. Thoracic aorta: Mild calcification. Normal cervical branching. REMAINING CHEST: Medical devices: None. Thyroid: Normal. Lymph nodes: Supraclavicular, axillary, mediastinal, and hilar lymphadenopathy are seen; for example: 2.1 centimeter right lower paratracheal (4/84). Other mediastinal structures: No significant abnormality. Lung parenchyma: Moderate interlobular septal thickening and diffuse ground-glass airspace opacities. Interval decrease in right middle lobe masslike consolidation now measuring 2.3 x 1.4 centimeter (5/125), previously measuring 5.1 x 3.5 centimeter. Interval decrease in size of left upper lobe consolidation. Airways: Mild bronchial wall thickening. Pleura: Interval increase in moderate sytc-ihecrbb-nnff-right pleural effusions. Chest wall: Mild bilateral gynecomastia. Upper abdomen: Partial visualization of retroperitoneal and mesenteric lymphadenopathy. Musculoskeletal: Moderate degenerative changes of the visualized spine. Impression: 1. No acute pulmonary emboli. 2. Interval increase in moderate htrs-uiliytd-wela-right pleural effusions. Moderate interlobular septal thickening and diffuse ground-glass airspace opacities are favored to represent moderate pulmonary edema, though superimposed infection or inflammation is difficult to exclude. 3. Interval decrease in right middle lobe masslike consolidation now measuring 2.3 x 1.4 centimeter, previously measuring 5.1 x 3.5 centimeter. Differential includes infection or malignancy. 4. Intrathoracic and intra-abdominal lymphadenopathy, which are compatible with history of CLL. Please note that all CT scans at this facility use dose modulation, iterative reconstruction, and/or weight-based dosing when appropriate to reduce radiation dose to as low as reasonably achievable. Dictated by Cali Mahoney MD @ 09/11/2024 3:23:44 PM (Electronically Signed)
[2024-09-11] MEDS: 0.9 % SODIUM CHLORIDE 500 ML 500 ML IV (13:56)
[2024-09-11 15:39] VITALS: BP 139/77; PULSE 59; RESP 18; TEMP 36.3; O2SAT 95
[2024-09-11 17:58] VITALS: BP 151/83; PULSE 63; RESP 18; TEMP 36.4; O2SAT 92
[2024-09-11] MEDS: FUROSEMIDE 10 MG/ML inj 40 MG IVP (17:59)
== END 2024-09-11 18:12 | disposition home or self-care (01) ==
PROVIDERS: Emergency Provider Family Medicine; PCP Student in an Organized Health Care Education/Training Program
DX: I50.9 Heart failure, unspecified (principal); D64.9 Anemia, unspecified; B44.9 Aspergillosis, unspecified; I26.99 Other pulmonary embolism without acute cor pulmonale
CPT/HCPCS: 36415; 71046; 71275; 80053; 83880; 84443; 84484; 85025; 87631; 93005; 96374; 99284; 99285; J1938; J7030; Q9967

== ENCOUNTER 2024-09-18 11:25 | Emergency (ER) | payer MEDICARE, BC, SELFPAY ==
--- OUTSIDE RECORDS SUMMARY | 2024-09-18 11:28 | XMS_ITS | Clinical Summary ---
Author Organization [facility] Address [address] [place] [address] Care Team Providers Care Spring Inspector Name Role Phone Elsewhere, Pcp Primary Care Provider Unavailabl e Source Comments Patient records contain information from all sites at [facility]. For routine questions regarding patient records, call [phone] during business hours, M-F 8:00 AM - 5:00 PM Central Time. Record requests for emergency care only can be directed to [phone] at any time.[facility] Allergies [...] 07/30/2024. 135 tablet 3 07/29/2024 2:01 PM LOOSELEAF BINDER COVERER 5 Active posaconazole (NoxafiL) [address] [...] organization. Date Type Department Care Team Description 09/13/2024 Orders Only Department of Oncology in [address] [phone] Taniya Garzon MPAS, P.A.-C., P.A. 09/11/2024 Orders Only Department of Oncology in [address] [phone] Birdie Hurtado M.D. 09/04/2024 Orders Only Section of Infectious Diseases in [place], [place] [address] [place] [address] External, Ordering ProviderAnnemarie 08/31/2024 Patient Outreach Section of Infectious Diseases in [place], [place] [address] [place] [address] Suzi Cummins R.N. OPAT 08/30/2024 Orders Only Department of Oncology in [place], [place] [address] [place] [phone] Birdie Hurtado M.D. 08/29/2024 9:00 AM CDT Office Visit Department of Cardiovascular Medicine in [place], [place] [address] [place] [phone] Marilu Castaneda P.A.-C., M.S. Monitoring For Therapeutic Drug Therapy (Primary Dx) 2024 9:30 AM CDT Clinical Communication Virtual Review in [place], [place] 200 [place] [address] Pre-visit Intake 2024 Orders Only Section of Infectious Diseases in [place], [place] [address] [place] [phone] External, Ordering Provider, MBony 2024 Orders Only Section of Infectious Diseases in [place], [place] [address] [place] [phone] External, Ordering Provider, MBony 08/27/2024 Patient Outreach Section of Infectious Diseases in [place], [place] [address] [place] [phone] Alicia Tavarez R.N. OPAT 08/21/2024 Orders Only Department of Oncology in [address] [phone] Birdie Hurtado M.D. 08/13/2024 3:00 PM CDT Office Visit Section of Infectious Diseases in [place], [place] [address] [place] [phone] Catherine Garcia M.D. Chesdachai, Supavit, M.D. Aspergillosis (HCC) (Primary Dx); Pneumonia 08/13/2024 10:30 AM CDT - 08/13/2024 11:59 PM CDT Hospital Encounter Department of Radiology, [facility], in [place], [place] [address] [place] [phone] Catherine Garcia M.D. Pneumonia Discharge Disposition: Home or Self Care 08/13/2024 Patient Outreach Section of Infectious Diseases in [place], [place] [address] [place] [phone] Alicia Tavarez R.N. OPAT 08/03/2024 Patient Outreach Section of Infectious Diseases in [place], [place] [address] [place] [phone] Stacey Hernandez R.N. OPAT (Lab Results ) 08/02/2024 Orders Only Department of Oncology in [place], [place] [address] [place] [phone] Birdie Hurtado M.D. 08/02/2024 Orders Only Department of Cardiovascular Medicine in [address] [phone] Trudy Padilla P.A.-C. 07/31/2024 Orders Only Department of Cardiovascular Medicine in [address] [phone] Vanessa Brown P.A.-C. Acute Pulmonary Histoplasmosis Capsulati (HCC) 07/31/2024 Clinical Communication Department of Cardiovascular Medicine in [address] [phone] Trudy Padilla, P.A.-C. REDO quantity for RX 07/30/2024 Clinical Communication Department of Cardiovascular Medicine in [address] [phone] Trudy Padilla, P.A.-C. release med to pharmacy 07/29/2024 Orders Only Department of Cardiovascular Medicine in [address] [phone] Trudy Padilla, P.A.-C. 07/24/2024 Clinical Communication Department of Cardiovascular Medicine in [address] [phone] Vanessa Brown P.A.-CBuddy 07/23/2024 9:50 AM LOOSELEAF BINDER COVERER Anesthesia Event Department of Cardiovascular Disease [address] [place] [phone] Radha Timmons APRN, DARLEEN 07/20/2024 8:45 AM LOOSELEAF BINDER COVERER Ancillary Procedure Department of Nursing 07/20/2024 Clinical Communication Department of Cardiovascular Medicine in [place], [place] [address] [place] [phone] Jv Guerda J 07/20/2024 Patient Outreach Section of Infectious Diseases in [place], [place] [address] [place] [phone] Stacey Hernandez R.N. 07/19/2024 9:58 AM LOOSELEAF BINDER COVERER - 07/29/2024 1:49 PM LOOSELEAF BINDER COVERER Hospital Encounter [facility], [facility], [facility], Fifth Floor [address] [place] [phone] Matthew Carlin M.D. Hayes, Sharonne N, M.D. Ommen, Steve R, M.D. Idris Parsons M.D., Ph.D. Malcolm Dennison M.D. Atrial Fibrillation Unspecified (HCC) (Primary Dx); Apnea Sleep Obstructive; Hypoxia; Acute Pulmonary Histoplasmosis Capsulati (HCC) Discharge Disposition: Home or Self Care 07/18/2024 Documentation Division of Pulmonary Medicine in [address] [phone] Cam Vyas M.D. 07/13/2024 Clinical Communication Division of [facility], [facility] in [place], [place] [address] [place] [phone] Lauren Echeverria M.D. Rx Denial (Posaconazole 100MG dr tablet) 07/12/2024 Clinical Communication Division of Pulmonary Medicine in [place], [place] [address] [place] [phone] Lauren Echeverria M.D. Posaconazole Rx 07/11/2024 Clinical Communication Division of [facility], [facility] in [place], [place] [address] [place] [phone] Lauren Echeverria M.D. Rx Prior Authorization (posaconazole (NoxafiL) [address] tablet) 07/09/2024 Clinical Communication [facility] [address] [place] [phone] Lauren Echeverria M.D. Post Hospital Follow-up 07/09/2024 Documentation Section of Infectious Diseases in [place], [place] [address] [place] [phone] Catherine Garcia M.D. 07/09/2024 Patient Outreach Section of Infectious Diseases in [place], [place] [address] [place] [phone] Hannah Benavides OPALorene 07/07/2024 Orders Only [facility] Bety Francois [address] [place] [phone] Luisa Esqueda I., Pharm.D., R.Ph. 07/04/2024 Clinical Communication [facility] [address] [place] [phone] Catherine Garcia M.D. Post Hospital Follow-up 07/04/2024 Orders Only Department of Oncology in [place], [place] [address] [place] [phone] Birdie Hurtado M.D. 07/02/2024 2:43 PM LOOSELEAF BINDER COVERER - 07/02/2024 3:56 PM LOOSELEAF BINDER COVERER Surgery [facility] [address] [place] [phone] Lamberto Schaefer M.D. BRONCHOSCOPY FLEXIBLE: BRONCHOALVEOLAR LAVAGE - IMMUNOCOMPROMISED HOST OR NON-IMMUNOCOMPROMISED HOST 07/02/2024 1:53 PM LOOSELEAF BINDER COVERER Anesthesia Event [facility] OR [address] [place] [phone] Iza Kumar APRN, DARLEEN, D.N.PMelissa West M.D. 07/02/2024 1:45 PM LOOSELEAF BINDER COVERER Ancillary Procedure Department of General Surgery 07/02/2024 1:40 PM LOOSELEAF BINDER COVERER Ancillary Procedure Department of General Surgery 07/02/2024 Orders Only Division of Pulmonary Medicine in [place], [place] [address] [place] [phone] Lamberto Schaefer M.D. 07/02/2024 Orders Only Department of Oncology in [place], [place] [address] [place] [phone] Birdie Hurtado M.D. 06/30/2024 7:00 PM LOOSELEAF BINDER COVERER Ancillary Procedure Department of Radiology in [place], [place] [address] [place] [address] Magaly Shen M.D. 06/30/2024 5:55 PM LOOSELEAF BINDER COVERER - 07/07/2024 5:49 PM LOOSELEAF BINDER COVERER Hospital Encounter [facility], [facility], Sixth Floor [address] [place] [phone] Amanda Encinas M.D. Farah, Wigdan H, M.B.B.S., M.P.H. Pneumonia (Primary Dx); Debility [R53.81]; Atrial Fibrillation Longstanding Persistent (HCC); Acute Pulmonary Histoplasmosis Capsulati (HCC); Apnea Sleep Obstructive; Hypoxia Discharge Disposition: Home or Self Care 06/30/2024 Intake [facility] 06/30/2024 Orders Only Department of Oncology in [address] [phone] Birdie Hurtado M.D. 06/22/2024 Orders Only Department of Oncology in [address] [phone] Birdie Hurtado M.D. 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 Never 06/30/2021 Do [...] and heating? Not hard at all 06/30/2021 [facility] of Occupat ional Health - Occupational Stress [...] your living situation today? I have a [facility] place to live 07/19/2024 Education Answer Date Recorded What is the highest level of school you have completed or the highest degree you have received? Professional school degree (e.g., , YELENA, DVM, GRACIELA) 06/30/2021 Sex and Gender Information Value Date Recorded Sex Assigned at Male 06/30/2021 12:19 PM LOOSELEAF BINDER COVERER Legal Sex Male 7:31 AM CDT Gender Identity Male 06/30/2021 12:19 PM LOOSELEAF BINDER COVERER Sexual Orientation Straight 06/30/2021 12 :19 PM LOOSELEAF BINDER COVERER Last Filed Vital Signs Vital Sign Reading Time Taken Comments Blood Pressure 143/77 08/29/2024 8:53 AM CDT Pulse 62 08/29/2024 8:53 AM CDT Temperature 36.8 C (98.2 F) 08/13/2024 2:29 PM CDT Respiratory Rate 19 07/29/2024 1:00 PM LOOSELEAF BINDER COVERER Oxygen Saturation 96% 07/29/2024 1:00 PM LOOSELEAF BINDER COVERER Inhaled Oxygen Concentration - - Weight 73.9 kg (163 lb 0.5 oz) 08/29/2024 8:53 A M CDT Height 176.9 cm (5' 9.65) 08/29/2024 8:53 AM CD T Body Mass Index 23.63 08/29/2024 8:53 AM CDT Plan of Treatment Upcoming Encounters Date Type Department Care Team (Late st Contact Info) Description 09/24/2024 7:45 AM CDT Appointment Department of Radiology, [facility], in [place], [place] [address] [place] [phone] Julio Soto M.D. [address] [place] [phone] 09/24/2024 9:30 AM CDT Diagnostic Division of Pulmonary Medicine in [place], [place] [address] [place] [phone] Marilu Castaneda P.A.-C., M.S. [address] [place] [phone] 09/24/2024 10:40 AM CDT Appointment Department of Laboratory Medicine and Pathology, [facility], in [place], [place] [address] [place] [phone] Marilu Castaneda P.A.-C., M.S. [address] [place] [phone] 09/24/2024 2:30 PM CDT Office Visit Section of Infectious Diseases in [place], [place] [address] [place] [phone] Julio Soto M.D. [address] [place] [phone] Health Maintenance Due Date Last Done Comments [...] Additional history exists Potassium Level 09/04/2025 09/04/2024, 0310/2024, 07/26/2024, Additional history exists Pneumococcal vaccine (50+ years) Completed 12/20/2014, 10/12/2010 Influenza Vaccine Completed 03/21/2024, , 04/02/2022, Additional history exists Fall Risk Screen (Annual) Completed 08/29/2024 HPV Vaccines Aged Out No longer eligi ble based on patient's age to complete this topic IPV Vaccines Aged Out No longer eligi ble based on patient's age to complete this topic Medical Devices Implanted Type Area Hatchery Worker Device Identifier Shelf Expiration Date Model / Serial / Lot Clp Tania Clip Del Sys Xtr - [id number] Implanted:Qty : 1 on 06/28/2019 by Hernandez Echevarria M.D. at [facility] Mitralclip N/A: Heart Reese 03/21/2020 [id number] / / [id number] Description:Mitral Valve Ocular Lens Ocular Lens Eye Description:Right Ocular Lens Ocular Lens Eye Description:Left Procedures Procedure Name Priority Date/Time Associated Diagnosis Comments OUTSIDE CT BODY Routine 09/11/2024 2:35 PM CDT OUTSIDE DX CHEST Routine 09/11/2024 1:35 PM CDT ALKALINE PHOSPHATASE, S/P Routine 09/04/2024 10:35 [...] ANTI-XA ASSAY, P Routine 07/29/2024 9:53 AM LOOSELEAF BINDER COVERER PROTHROMBIN TIME (PT), P Routine 07/29/2024 9:53 AM LOOSELEAF BINDER COVERER CBC WITHOUT DIFFERENTIAL, B Routine 07/29/2024 9:53 AM LOOSELEAF BINDER COVERER ECG Routine 07/29/2024 7:29 AM LOOSELEAF BINDER COVERER ECG Timed 07/29/2024 1:14 AM LOOSELEAF BINDER COVERER ADULT OXYGEN THERAPY Routine 07/28/2024 8:00 AM LOOSELEAF BINDER COVERER ECG Routine 07/28/2024 6:50 AM LOOSELEAF BINDER COVERER HEPARIN LEVEL ANTI-XA ASSAY, P Routine 07/28/2024 6:21 AM LOOSELEAF BINDER COVERER PROTHROMBIN TIME (PT), P Routine 07/28/2024 6:21 AM LOOSELEAF BINDER COVERER CBC WITHOUT DIFFERENTIAL, B Routine 07/28/2024 6:21 AM LOOSELEAF BINDER COVERER ADULT OXYGEN THERAPY Routine 07/27/2024 8:00 PM LOOSELEAF BINDER COVERER ADULT OXYGEN THERAPY Routine 07/27/2024 8:00 AM LOOSELEAF BINDER COVERER ECG Routine 07/27/2024 7:28 AM LOOSELEAF BINDER COVERER HEPARIN LEVEL ANTI-XA ASSAY, P Routine 07/27/2024 7:25 AM LOOSELEAF BINDER COVERER PROTHROMBIN TIME (PT), P Routine 07/27/2024 7:25 AM LOOSELEAF BINDER COVERER CBC WITHOUT DIFFERENTIAL, B Routine 07/27/2024 7:25 AM LOOSELEAF BINDER COVERER HEPARIN LEVEL ANTI-XA ASSAY, P Timed 07/26/2024 10:37 PM LOOSELEAF BINDER COVERER ADULT OXYGEN THERAPY Routine 07/26/2024 8:00 PM LOOSELEAF BINDER COVERER HEPARIN LEVEL ANTI-XA ASSAY, P Timed 07/26/2024 3:37 PM LOOSELEAF BINDER COVERER ECG Routine 07/26/2024 10:28 AM LOOSELEAF BINDER COVERER ADULT OXYGEN THERAPY Routine 07/26/2024 8:00 AM LOOSELEAF BINDER COVERER HEPARIN LEVEL ANTI-XA ASSAY, P Routine 07/26/2024 8:00 AM LOOSELEAF BINDER COVERER BASIC METABOLIC PANEL, S/P Routine 07/26/2024 8:00 AM LOOSELEAF BINDER COVERER PROTHROMBIN TIME (PT), P Routine 07/26/2024 8:00 AM LOOSELEAF BINDER COVERER CBC WITHOUT DIFFERENTIAL, B Routine 07/26/2024 8:00 AM LOOSELEAF BINDER COVERER ADULT OXYGEN THERAPY Routine 07/25/2024 8:00 PM LOOSELEAF BINDER COVERER ECG Routine 07/25/2024 9:13 AM LOOSELEAF BINDER COVERER HEPARIN LEVEL ANTI-XA ASSAY, P Routine 07/25/2024 8:27 AM LOOSELEAF BINDER COVERER BASIC METABOLIC PANEL, S/P Routine 07/25/2024 8:27 AM LOOSELEAF BINDER COVERER PROTHROMBIN TIME (PT), P Routine 07/25/2024 8:27 AM LOOSELEAF BINDER COVERER CBC WITHOUT DIFFERENTIAL, B Routine 07/25/2024 8:27 AM LOOSELEAF BINDER COVERER ADULT OXYGEN THERAPY Routine 07/25/2024 8:01 AM LOOSELEAF BINDER COVERER ADULT OXYGEN THERAPY Routine 07/24/2024 8:01 PM LOOSELEAF BINDER COVERER ADULT OXYGEN THERAPY Routine 07/24/2024 8:01 AM LOOSELEAF BINDER COVERER BASIC METABOLIC PANEL, S/P Routine 07/24/2024 7:45 AM LOOSELEAF BINDER COVERER HEPATIC FUNCTION PANEL, S Routine 07/24/2024 7:45 AM LOOSELEAF BINDER COVERER HEPARIN LEVEL ANTI-XA ASSAY, P Routine 07/24/2024 7:45 AM LOOSELEAF BINDER COVERER PROTHROMBIN TIME (PT), P Routine 07/24/2024 7:45 AM LOOSELEAF BINDER COVERER CBC WITHOUT DIFFERENTIAL, B Routine 07/24/2024 7:45 AM LOOSELEAF BINDER COVERER ADULT OXYGEN THERAPY Routine 07/23/2024 8:01 PM LOOSELEAF BINDER COVERER ECG STAT 07/23/2024 10:27 AM LOOSELEAF BINDER COVERER (MERVAT) 2D AND LIMITED DOPPLER Routine 07/23/2024 10:02 AM LOOSELEAF BINDER COVERER AIRWAY MANAGEMENT Routine 07/23/2024 9:50 AM LOOSELEAF BINDER COVERER ADULT OXYGEN THERAPY Routine 07/23/2024 8:00 AM LOOSELEAF BINDER COVERER HEPARIN LEVEL ANTI-XA ASSAY, P Timed 07/23/2024 7:06 AM LOOSELEAF BINDER COVERER MAGNESIUM, S Routine 07/23/2024 7:06 AM LOOSELEAF BINDER COVERER PROTHROMBIN TIME (PT), P Routine 07/23/2024 7:06 AM LOOSELEAF BINDER COVERER CBC WITHOUT DIFFERENTIAL, B Routine 07/23/2024 7:06 AM LOOSELEAF BINDER COVERER HEPARIN LEVEL ANTI-XA ASSAY, P Timed 07/23/2024 12:47 AM LOOSELEAF BINDER COVERER ADULT OXYGEN THERAPY Routine 07/22/2024 8:00 PM LOOSELEAF BINDER COVERER HEPARIN LEVEL ANTI-XA ASSAY, P Timed 07/22/2024 5:07 PM LOOSELEAF BINDER COVERER ADULT OXYGEN THERAPY Routine 07/22/2024 8:00 AM LOOSELEAF BINDER COVERER HEPARIN LEVEL ANTI-XA ASSAY, P Routine 07/22/2024 7:59 AM LOOSELEAF BINDER COVERER PROTHROMBIN TIME (PT), P Routine 07/22/2024 7:59 AM LOOSELEAF BINDER COVERER CBC WITHOUT DIFFERENTIAL, B Routine 07/22/2024 7:59 AM LOOSELEAF BINDER COVERER BASIC METABOLIC PANEL, S/P Routine 07/22/2024 7:59 AM LOOSELEAF BINDER COVERER ADULT OXYGEN THERAPY Routine 07/21/2024 8:01 PM LOOSELEAF BINDER COVERER HEPARIN LEVEL ANTI-XA ASSAY, P Timed 07/21/2024 7:13 PM LOOSELEAF BINDER COVERER HEPARIN LEVEL ANTI-XA ASSAY, P Timed 07/21/2024 11:52 AM LOOSELEAF BINDER COVERER ADULT OXYGEN THERAPY Routine 07/21/2024 8:01 AM LOOSELEAF BINDER COVERER AMIODARONE LEVEL, S Routine 07/21/2024 2:43 AM LOOSELEAF BINDER COVERER HEPARIN LEVEL ANTI-XA ASSAY, P Timed 07/21/2024 2:42 AM LOOSELEAF BINDER COVERER PROTHROMBIN TIME (PT), P Routine 07/21/2024 2:42 AM LOOSELEAF BINDER COVERER MAGNESIUM, S Routine 07/21/2024 2:42 AM LOOSELEAF BINDER COVERER CBC WITHOUT DIFFERENTIAL, B Routine 07/21/2024 2:42 AM LOOSELEAF BINDER COVERER BASIC METABOLIC PANEL, S/P Routine 07/21/2024 2:42 AM LOOSELEAF BINDER COVERER ADULT OXYGEN THERAPY Routine 07/20/2024 8:01 PM LOOSELEAF BINDER COVERER HEPARIN LEVEL ANTI-XA ASSAY, P Timed 07/20/2024 6:55 PM LOOSELEAF BINDER COVERER PROTHROMBIN TIME (PT), P STAT 07/20/2024 1:07 PM LOOSELEAF BINDER COVERER HEPARIN LEVEL ANTI-XA ASSAY, P STAT 07/20/2024 10:59 AM LOOSELEAF BINDER COVERER ACTIVATED PARTIAL THROMBOPLASTIN TIME (APTT), P STAT 07/20/2024 10:58 AM LOOSELEAF BINDER COVERER NURSING IMAGE EXAM Routine 07/20/2024 8:44 AM LOOSELEAF BINDER COVERER BASIC METABOLIC PANEL, S/P Routine 07/20/2024 8:37 AM LOOSELEAF BINDER COVERER CBC WITHOUT DIFFERENTIAL, B Routine 07/20/2024 8:37 AM LOOSELEAF BINDER COVERER ADULT OXYGEN THERAPY Routine 07/20/2024 8:01 AM LOOSELEAF BINDER COVERER ADULT OXYGEN THERAPY Routine 07/19/2024 9:18 PM LOOSELEAF BINDER COVERER ADULT OXYGEN THERAPY Routine 07/19/2024 9:18 PM LOOSELEAF BINDER COVERER ADULT OXYGEN THERAPY Routine 07/19/2024 9:18 [address]AF BINDER COVER[address] CHEST ANGIOGRAM AND PULMONARY ARTERIES WITH IV CONTRAST RAD - Semiurgent (Fast; most ED patients; some inpatients) 07/19/2024 4:20 PM LOOSELEAF BINDER COVERER HC URINALYSIS AUTO WO MICRO Routine 07/19/2024 2:50 PM LOOSELEAF BINDER COVERER MICROSCOPIC MANUAL STAT 07/19/2024 2:46 PM LOOSELEAF BINDER COVERER PH, U STAT 07/19/2024 2:46 PM LOOSELEAF BINDER COVERER DIPSTICK, U STAT 07/19/2024 2:46 PM LOOSELEAF BINDER COVERER OSMOLALITY, U STAT 07/19/2024 2:46 PM LOOSELEAF BINDER COVERER URINALYSIS WITH MICROSCOPIC STAT 07/19/2024 2:46 PM LOOSELEAF BINDER COVERER BACTERIAL CULTURE, AEROBIC + SUSC, URINE STAT 07/19/2024 2:46 PM LOOSELEAF BINDER COVERER LACTATE, POCT, B STAT 07/19/2024 1:07 PM LOOSELEAF BINDER COVERER HC T4 FREE STAT 07/19/2024 1:07 PM LOOSELEAF BINDER COVERER THYROPEROXIDASE (TPO) ABS, S STAT 07/19/2024 1:07 PM LOOSELEAF BINDER COVERER THYROID FUNCTION CASCADE, S STAT 07/19/2024 1:07 PM LOOSELEAF BINDER COVERER D-DIMER, P STAT 07/19/2024 1:07 PM LOOSELEAF BINDER COVERER HEPATIC FUNCTION PANEL, S STAT 07/19/2024 1:07 PM LOOSELEAF BINDER COVERER TROPONIN T, 2H/6H REFLEX, 5TH GEN, P Timed 07/19/2024 1:07 PM LOOSELEAF BINDER COVERER DX CHEST AP OR PA AND LATERAL 2 VIEWS RAD - Semiurgent (Fast; most ED patients; some inpatients) 07/19/2024 10:23 AM LOOSELEAF BINDER COVERER GLUCOSE POCT, B STAT 07/19/2024 10:15 AM LOOSELEAF BINDER COVERER PROTHROMBIN TIME (PT), P STAT 07/19/2024 10:15 AM LOOSELEAF BINDER COVERER TROPONIN T, BASELINE, 5TH GEN, P STAT 07/19/2024 10:15 AM LOOSELEAF BINDER COVERER SPSMA RESULT STAT 07/19/2024 10:14 AM LOOSELEAF BINDER COVERER MAGNESIUM, S STAT 07/19/2024 10:14 AM LOOSELEAF BINDER COVERER CBC WITH DIFFERENTIAL, B STAT 07/19/2024 10:14 AM LOOSELEAF BINDER COVERER BASIC METABOLIC PANEL, S/P STAT 07/19/2024 10:14 AM LOOSELEAF BINDER COVERER ECG STAT 07/19/2024 10:05 AM LOOSELEAF BINDER COVERER IMMUNOGLOBULINS (IGG, IGA, AND IGM), S Routine 07/07/2024 10:09 AM LOOSELEAF BINDER COVERER IMMUNOGLOBULINS (IGG, IGA, AND IGM), S Timed 07/07/2024 5:29 AM LOOSELEAF BINDER COVERER CBC WITH DIFFERENTIAL, B Routine 07/07/2024 5:29 AM LOOSELEAF BINDER COVERER BASIC METABOLIC PANEL, S/P Routine 07/07/2024 5:29 AM LOOSELEAF BINDER COVERER POSACONAZOLE, S Timed 07/07/2024 5:28 AM LOOSELEAF BINDER COVERER TRANSFUSE RED BLOOD CELLS Routine 07/06/2024 4:09 PM LOOSELEAF BINDER COVERER PREPARE RED BLOOD CELLS Routine 07/06/19 2:14 PM LOOSELEAF BINDER COVERER TYPE AND SCREEN Routine 07/06/2024 2:14 PM LOOSELEAF BINDER COVERER RT TO ARRANGE FOR HOME DME Routine 07/06/2024 11:50 AM LOOSELEAF BINDER COVERER NOCTURNAL OXYGEN STUDY - RT Routine 07/06/2024 11:50 AM LOOSELEAF BINDER COVERER ADULT OXYGEN THERAPY Routine 07/06/2024 8:01 AM LOOSELEAF BINDER COVERER CBC WITH DIFFERENTIAL, B Routine 07/06/2024 12:17 AM LOOSELEAF BINDER COVERER BASIC METABOLIC PANEL, S/P Routine 07/06/2024 12:17 AM LOOSELEAF BINDER COVERER ADULT OXYGEN THERAPY Routine 07/05/2024 8:00 PM LOOSELEAF BINDER COVERER OSMOLALITY, U Routine 07/05/2024 10:47 AM LOOSELEAF BINDER COVERER SODIUM, RANDOM, U Routine 07/05/2024 10:47 AM LOOSELEAF BINDER COVERER OSMOLALITY, S Routine 07/05/2024 10:19 AM LOOSELEAF BINDER COVERER ECG Routine 07/05/2024 9:27 AM LOOSELEAF BINDER COVERER ADULT OXYGEN THERAPY Routine 07/05/2024 8:00 AM LOOSELEAF BINDER COVERER PHOSPHORUS (INORGANIC), S Routine 07/05/2024 12:12 AM LOOSELEAF BINDER COVERER MAGNESIUM, S Routine 07/05/2024 12:12 AM [employer] CBC WITH DIFFERENTIAL, B Routine 07/05/2024 12:12 AM [employer] BASIC METABOLIC PANEL, S/P Routine 07/05/2024 12:12 AM [employer] ADULT OXYGEN THERAPY Routine 07/04/2024 8:01 PM [employer] ADULT OXYGEN THERAPY Routine 07/04/2024 8:00 AM [employer] DX CHEST PORTABLE 1 VIEW RAD - Routine (most inpatients and all outpatients) 07/04/2024 7:38 AM [employer] C-REACTIVE PROTEIN (CRP), S/P Routine 07/04/2024 12:19 AM [employer] CBC WITH DIFFERENTIAL, B Routine 07/04/2024 12:19 AM [employer] BASIC METABOLIC PANEL, S/P Routine 07/04/2024 12:19 AM [employer] ECG STAT 07/03/2024 8:47 PM [employer] ADULT OXYGEN THERAPY Routine 07/03/2024 8:00 PM [employer] CRYPTOCOCCUS AG SCREEN W/TITER Routine 07/03/2024 1:29 PM [employer] HISTOPLASMA/BLASTOMYCES AG, EIA, S Routine 07/03/2024 1:29 PM [employer] ADULT OXYGEN THERAPY Routine 07/03/2024 8:01 AM [employer] CBC WITH DIFFERENTIAL, B Routine 07/03/2024 12:18 AM [employer] BASIC METABOLIC PANEL, S/P Routine 07/03/2024 12:18 AM [employer] ADULT OXYGEN THERAPY Routine 07/02/2024 8:01 PM [employer] ADULT OXYGEN THERAPY Routine 07/02/2024 2:36 PM [employer] CYTOLOGY NON-FAMILY SERVICE CASEWORKER Routine 07/02/2024 2:07 PM [employer] Pneumonia HC REF SUSCEPT MACROBROTH EA DRUG Routine 07/02/2024 2:07 PM [employer] CELL COUNT AND DIFFERENTIAL, BROCHOALVEOLAR LAVAGE Routine 07/02/2024 2:07 PM [employer] Pneumonia ISAVUCONAZOLE SUSCEPTIBILITY TEST Routine 07/02/2024 2:07 PM [employer] AMPHOTERICIN B SUSCEPTIBILITY Routine 07/02/2024 2:07 PM [employer]SELEAF BINDER COVERER VORICONAZOLE SUSCEPTIBILITY TESTING Routine 07/02/2024 2:07 PM [employer]SELEAF B[employer]ER COVERER POSACONAZOLE (POS) SUSCEPTIBILITY Routine 07/02/2024 2:07 PM [employer]SELEAF B[employer]ER COVERER SARS COV-2 RNA, PCR, VARIES Routine 07/02/2024 2:07 PM [employer]LEAF B[employer]ER COVERER Pneumonia PNEUMONIA PANEL, PCR Routine 07/02/2024 2:07 PM [employer]LEAF B[employer]ER COVERER Pneumonia PNEUMOCYSTIS PCR Routine 07/02/2024 2:07 PM [employer]LEAF B[employer]ER COVERER Pneumonia BACTERIAL CULTURE, AEROBIC + SUSC, RESP Routine 07/02/2024 2:07 PM [employer]LEAF [employer]ER COVERER Pneumonia NOCARDIA STAIN Routine 07/02/2024 2:07 PM [employer]LEAF B[employer]ER COVERER Pneumonia LEGIONELLA PCR Routine 07/02/2024 2:07 PM [employer]LEAF B[employer]ER COVERER Pneumonia ASPERGILLUS AG, BAL Routine 07/02/2024 2:07 PM [employer]LEAF B[employer]ER COVERER Pneumonia MYCOBACTERIAL CULTURE, V Routine 07/02/2024 2:07 PM [employer]LEAF B[employer]ER COVERER Pneumonia FUNGAL SMEAR Routine 07/02/2024 2:07 PM [employer]LEAF B[employer]ER COVERER Pneumonia LEGIONELLA CULTURE Routine 07/02/2024 2:07 PM [employer]LEAF B[employer]ER COVERER Pneumonia ACID FAST SMEAR FOR MYCOBACTERIUM Routine 07/02/2024 2:07 PM [employer]LEAF B[employer]ER COVERER Pneumonia GRAM STAIN Routine 07/02/2024 2:07 PM [employer]LEAF B[employer]ER COVERER Pneumonia FUNGAL CULTURE, ROUTINE Routine 07/02/19 2:07 PM [employer]LEAF [employer]ER COVERER Pneumonia SURGERY IMAGE EXAM Routine 07/02/2024 1:45 PM [employer]LEAF [employer]ER COVERER SURGERY IMAGE EXAM Routine 07/02/2024 1:40 PM [employer]SELEAF BINDER COVERER BRONCHOSCOPY FLEXIBLE: BRONCHOALVEOLAR LAVAGE - IMMUNOCOMPROMISED HOST OR NON-IMMUNOCOMPROMISED HOST 07/02/2024 1:24 PM [employer]LEAF B[employer]ER COVERER Pneumonia PNEUMOCYSTIS PCR Routine 07/02/2024 12:21 PM [employer]LE[employer] COVERER ADULT OXYGEN THERAPY Routine 07/02/2024 8:01 AM [employer]LEAF [employer]ER COVERER RESPIRATORY PANEL, PCR, CRITICAL POWER TECHNICIAN Routine 07/02/2024 7:50 AM [employer]LEAF B[employer]ER COVERER FUNGAL CULTURE, ROUTINE Routine 07/02/19 6:51 AM [employer]LEAF B[employer]ER COVERER GRAM STAIN Routine 07/02/2024 6:51 AM [employer]SELEAF BINDER COVERER BACTERIAL CULTURE, AEROBIC + SUSC, RESP Routine 07/02/2024 6:51 AM [employer]SELEAF BINDER COVERER PNEUMONIA PANEL, PCR Routine 07/02/2024 6:51 AM [employer]LEAF BINDER COVERER BASIC METABOLIC PANEL, S/P Routine 07/02/2024 12:09 AM [employer]LEAF B[employer]ER COVERER C-REACTIVE PROTEIN (CRP), S/P Routine 07/02/2024 12:09 AM [employer]SELEAF B[employer]ER COVERER CBC WITHOUT DIFFERENTIAL, B Routine 07/02/2024 12:09 AM [employer]LEAF B[employer]ER COVERER HIV-1/-2 AG AND AB SCREEN, PLASMA Routine 07/02/2024 12:09 AM [employer]LEAF B[employer]ER COVERER ADULT OXYGEN THERAPY Routine 07/01/2024 8:00 PM [employer]LEAF [employer]ER COVERER ACTIVATED PARTIAL THROMBOPLASTIN TIME (APTT), P Timed 07/01/2024 7:23 PM [employer]LEAF B[employer]ER COVERER HISTOPLASMA/BLASTOMYCES AG, EIA, U Routine 07/01/2024 5:58 PM [employer]LEAF B[employer]ER COVERER LEGIONELLA AG, U Routine 07/01/2024 5:58 PM [employer]LEAF B[employer]ER COVERER STREPTOCOCCUS PNEUMONIAE AG, U Routine 07/01/2024 5:58 PM [employer]LEAF B[employer]ER COVERER CRYPTOCOCCUS AG SCREEN W/TITER Routine 07/01/2024 12:16 PM [employer]LEAF B[employer]ER COVERER ASPERGILLUS AG Routine 07/01/2024 12:16 PM [employer]SELEAF BINDER COVERER ACTIVATED PARTIAL THROMBOPLASTIN TIME (APTT), P Timed 07/01/2024 11:53 AM [employer]LEAF [employer] COVERER ADULT OXYGEN THERAPY Routine 07/01/2024 8:00 AM [employer]LEAF B[employer]ER COVERER HEPATIC FUNCTION PANEL, S Routine 07/01/2024 3:40 AM [employer]LEAF B[employer]ER COVERER ACTIVATED PARTIAL THROMBOPLASTIN TIME (APTT), P Timed 07/01/2024 3:40 AM [employer]LEAF B[employer]ER COVERER BASIC METABOLIC PANEL, S/P Routine 07/01/2024 3:40 AM [employer]LEAF B[employer]ER COVERER CBC WITH DIFFERENTIAL, B Routine 07/01/2024 3:40 AM [employer]LEAF B[employer]ER COVERER MRSA/STAPHYLOCOCCUS AUREUS, NASAL, BY PCR Routine 06/30/2024 10:07 PM [employer]LE[employer] COVERER ADULT OXYGEN THERAPY Routine 06/30/2024 8:01 PM [employer]LEAF B[employer]ER COVERER BACTERIA / REJI CULTURE, BLOOD Routine 06/30/2024 7:58 PM [employer]LEAF BINDER COVERER ACTIVATED PARTIAL THROMBOPLASTIN TIME (APTT), P STAT 06/30/2024 7:50 PM [employer]LEAF BINDER COVERER MAGNESIUM, S STAT 06/30/2024 7:50 PM [employer]LEAF BINDER COVERER RENAL FUNCTION PANEL, S STAT 06/30/19 7:50 PM [employer]LEAF B[employer]ER COVERER HISTOPLASMA AB COMPFIX/IMMDIFF, S STAT 06/30/2024 7:50 PM L[employer]SELEAF BINDER COVERER (1, 3) [id number] (FUNGITELL), S STAT 06/30/2024 7:50 PM [employer]LEAF BINDER COVERER CBC WITH DIFFERENTIAL, B STAT 06/30/2024 7:49 PM [employer]LE[employer] B[employer]ER COVERER BLASTOMYCES AB, EIA STAT 06/30/2024 7:49 PM [employer]LEAF B[employer]ER COVERER COCCIDIOIDES AB SCREEN W/REFLEX, S STAT 06/30/2024 7:49 PM [employer]LEAF B[employer]ER COVERER BACTERIA / REJI CULTURE, BLOOD Routine 06/30/2024 7:49 PM [employer]LEAF B[employer]ER COVERER ECG Routine 06/30/2024 7:18 PM [employer]LEAF B[employer]ER COVERER INTERPRETATION OF OUTSIDE CT CHEST RAD - Routine (most inpatients and all outpatients) 06/30/2024 7:04 PM [employer] COVERER ADULT OXYGEN THERAPY Routine 06/30/2024 6:56 PM [employer]LE[employer] B[employer] COVERER ADULT OXYGEN THERAPY Routine 06/30/2024 6:56 PM L[employer]LEAF B[employer]ER COVERER OUTSIDE CT BODY Routine 06/30/2024 8:55 AM L[employer]SELEAF B[employer]ER COVERER OUTSIDE CT BODY Routine 06/28/2024 5:35 AM L[employer]SELEAF B[employer]ER COVERER OUTSIDE CT BODY Routine 06/21/2024 12:30 PM L[employer]SELEAF BINDER COVERER from Last 3 Months Results * CT Angio Chest PE Protocol-Outside CT Body (09/11/2024 2:35 PM CDT) Only the most recent of4 resultswithin the time period is included. 09/11/2024 2:33 PM CDT Narrative IIMS - 09/11/2024 4:37 PM CDT This order has been created and auto-finalized to support the import of outside images. If available, original interpretation can be found on the Media Tab in Chart Review, in Document Viewer, as an image in InfinityView or as an Addendum. If a re-interpretation or overread is required please follow defined workflow. us Provider Not In System IMG CT PROCEDURES Final R esult IIMS NA * XR chest 2V-Outside Chest Xray (09/11/2024 1:35 PM CDT) 09/11/2024 1:31 PM CDT Narrative IIMS - 09/11/2024 4:29 PM CDT This order has been created and auto-finalized to support the import of outside images. If available, original interpretation can be found on the Media Tab in Chart Review, in Document Viewer, as an image in InfinityView or as an Addendum. If a re-interpretation or overread is required please follow defined workflow. us Provider Not In System IMG DIAGNOSTIC IMAGING GA OCEDURES Final Result Performing Organization Address [facility] Co de Phone Number IIMS NA * (ABNORMAL) ALT (Alanine Aminotransferase) (09/04/2024 10:35 AM CDT) Only the most recent of2 resultswithin the time period is included. EXT ALT 61(H) 4 - 50 U/L [facility] 09/04/2024 10:[address] [facility] - 09/04/2024 3:00 PM CDT External results verified in Extract by Jazmín Bean on 09/04/2024 at 02:59 PM. us Ordering Provider External M.DBuddy LAB BLOOD ADD-ON Final Result Performing Organization Address [facility] de Phone Number [facility] [address] [place] [address] * Potassium (09/04/2024 10:35 AM CDT) Only the most recent of2 resultswithin the time period is included. EXT Potassium 3.9 3.6 - 5.1 mmol/L [facility] 09/04/2024 10:3 5 AM CDT Narrative [facility] - 09/04/2024 3:00 PM CDT Source result document attached to Order Number [id number] ([id number]) dated 09/04/2024. External results verified in Extract by Jazmín Bean on 09/04/2024 at 02:59 PM. us Ordering Provider External M.D. LAB BLOOD ADD-ON Final Result Performing Organization Address [facility] Co de Phone Number [email or web address] [address] [phone] * (ABNORMAL) Alkaline Phosphatase (09/04/2024 10:35 AM CDT) Only the most recent of2 resultswithin the time period is included. Pathologist [facility] EXT Alkaline Phosphatase 154(H) 40 - 150 U/L [facility] 09/04/2024 10:3 5 AM CDT Narrative [facility] - 09/04/2024 3:00 PM CDT Source result document attached to Order Number [id number] ([id number]) dated 09/04/2024. External results verified in Extract by Jazmín Bean on 09/04/2024 at 02:59 PM. us Ordering Provider External Annemarie LAB BLOOD ADD-ON Final Result Performing Organization Address [facility] de Phone Number [employer] [facility] [address] [phone] * ECG 12 Lead (08/29/2024 8:03 AM CDT) Only the most recent of12 resultswithin the time period is included. [facility] Ventricular Rate ECG/Min 68 BPM MUSE GA Interval 176 ms MUSE QRSD Interval 98 ms MUSE QT Interval 442 ms MUSE QTC Interval 469 ms MUSE P [place] 76 degrees MUSE R [place] 51 degrees MUSE T Wave [place] 35 degrees MUSE 08/29/2024 8:03 AM CDT 08/29/2024 8:05 AM CDT Impressions MUSE - 08/29/2024 8:05 AM CDT Sinus rhythm Premature atrial complexes Otherwise normal ECG When compared with ECG of 29-Jul-2024 07:29, Premature atrial complexes are now present GA interval has decreased Reviewed by DEB Mckenna Narrative Procedure Note Kelby Tavera M.D. - 08/29/2024 IMPRESSION: Sinus rhythm Premature atrial complexes Otherwise normal ECG When compared with ECG of 29-Jul-2024 07:29, Premature atrial complexes are now present GA interval has decreased Reviewed by DEB Mckenna [...] (ABNORMAL) Prothrombin Time (PT) (07/29/2024 9:53 AM [employer]SELEAF BINDER COVERER) Only the most recent of11 resultswithin the time period is included. Prothrombin Time, P 25.6(H) 9.4 - 12.5 sec 07/29/2024 10:51 AM [employer]SELEAF BINDER COVERER DTL INR 2.3 0.9 - 1.1 07/29/2024 10:51 AM [employer]LEAF B[employer]ER COVERER DTL Comment: ----ADDITIONAL INFORMATION---- Standard intensity warfarin therapeutic range: 2.0 to 3.0 High intensity warfarin therapeutic range: 2.5 to 3.5 Blood (Blood, Venous) 07/29/2024 9:53 AM [employer]LEAF B[employer]ER COVERER 07/29/2024 10:21 AM [employer]LEAF B[employer]ER COVERER Vanessa Brown P.A.-C. LAB BLOOD [place] [address], [facility] [address] [place] [address] * Heparin Anti-Xa Assay (07/29/2024 9:53 AM LOOSELEAF BINDER COVERER) Only the most recent of17 resultswithin the time period is included. Heparin Anti-Xa, P 0.41 IU/mL 2024 10:51 AM LOOSELEAF BINDER COVERER DTL Comment: UFH therapeutic range: 0.30-0.70 IU/mL LMWH therapeutic range: 0.50-1.00 IU/mL 0.50-1.00 IU/mL for twice daily dosing 1.00-2.00 IU/mL for once daily dosing (sample obtained 4-6 hours following subcutaneous injection) LMWH prophylactic range:0.10-0.30 IU/mL ----ADDITIONAL INFORMATION---- Heparin Anti-Xa is used to measure heparin concentrations in patients receiving low molecular weight heparin (LMWH) or unfractionated heparin (UFH). Blood (Blood, Venous) 07/29/2024 9:53 AM [employer]LEAF BINDER COVERER 07/29/2024 10:21 AM [employer]LEAF BINDER COVERER Trudy Padilla P.A.-C. LAB BLOOD NON ADD-ON Fin al Result Performing Organization Address City/[facility]/ZIP Co de Phone Number [facility] [address] [place] [address], [facility] DTL [facility] [address] [place] [address] * (ABNORMAL) CBC without Differential (07/29/2024 9:53 AM LOOSELEAF BINDER COVERER) Only the most recent of11 resultswithin the time period is included. Pathologist [facility] Hemoglobin 10.8(L) 13.2 - 16.6 g/dL 07/29/2024 10:31 AM [employer]SELEAF BINDER COVERER DTL Hematocrit 34.9(L) 38.3 - 48.6 % 07/29/2024 10:31 AM L[employer]SELEAF BINDER COVERER DTL Erythrocytes 3.76(L) 4.35 - 5.65 x10(12)/L 07/29/2024 10:31 AM L[employer]SELEAF BINDER COVERER DTL MCV 92.8 78.2 - 97.9 fL 07/29/2024 10:31 AM L[employer]SELEAF BINDER COVERER DTL RBC Distrib Width 17.1(H) 11.8 - 14.5 % 07/29/2024 10:31 AM L[employer]SELEAF BINDER COVERER DTL Platelet Count 297 135 - 317 x10(9)/L 07/29/2024 10:31 AM LOOSELEAF BINDER COVERER DTL Leukocytes 44.1(H) 3.4 - 9.6 x10(9)/L 07/29/2024 10:31 AM L[employer]LEAF B[employer]ER COVERER DTL Blood (Blood, Venous) 07/29/2024 9:53 AM [employer]LEAF BINDER COVERER 07/29/2024 10:21 AM L[employer]SELEAF BINDER COVERER us Vanessa Brown P.A.-C. LAB BLOOD ADD-ON Final Result [facility] [address] [place] [address], [facility] DTL [facility] [address] [place] [address] * (ABNORMAL) Basic Metabolic Panel (07/26/2024 8:00 AM LOOSELEAF BINDER COVERER) Only the most recent of14 resultswithin the time period is included. Pathologist [facility] Potassium, S 4.5 3.6 - 5.2 mmol/L 07/26/2024 9:23 AM LOOSELEAF BINDER COVERER DTL Sodium, S 140 135 - 145 mmol/L 07/26/2024 9:23 AM L[employer]SELEAF BINDER COVERER DTL Chloride, S 105 98 - 107 mmol/L 07/26/2024 9:23 AM L[employer]SELEAF BINDER COVERER DTL Bicarbonate, S 23 22 - 29 mmol/L 07/26/2024 9:23 AM LOOSELEAF BINDER COVERER DTL Anion Gap 12 7 - 15 07/26/2024 9:23 AM [employer]SELEAF BINDER COVERER DTL BUN (Blood Urea Nitrogen), S 13 8 - 24 mg/dL 07/26/2024 9:23 AM LOOSELEAF BINDER COVERER DTL Creatinine 1.00 0.74 - 1.35 mg/dL 07/26/2024 9:23 AM LOOSELEAF BINDER COVERER DTL Estimated GFR (eGFR) 77 >=60 mL/min/BSA 07/26/2024 9:23 AM LOOSELEAF BINDER COVERER DTL Comment: Estimated GFR calculated using the 2020 CKD_EPI creatinine equation. Calcium, Total, S 8.4(L) 8.8 - 10.2 mg/dL 07/26/2024 9:23 AM LOOSELEAF BINDER COVERER DTL Glucose, S 87 70 - 140 mg/dL 07/26/2024 9:23 AM LOOSELEAF BINDER COVERER DTL Blood (Blood, Venous) 07/26/2024 8:00 AM LOOSELEAF BINDER COVERER 07/26/2024 8:58 AM LOOSELEAF BINDER COVERER us Vanessa Brown P.A.-C. LAB BLOOD ADD-ON Final Result [facility] [address] [place] [address], [facility] DTL [facility] [address] [place] [address] * (ABNORMAL) Hepatic Function Panel (07/24/2024 7:45 AM LOOSELEAF BINDER COVERER) Only the most recent of3 resultswithin the time period is included. Bilirubin, Total, S 0.9 0.0 - 1.2 mg/dL 07/24/2024 10:35 AM LOOSELEAF BINDER COVERER DTL Bilirubin, Direct, S 0.4(H) 0.0 - 0.3 mg/dL 07/24/2024 10:35 AM LOOSELEAF BINDER COVERER DTL Aspartate Aminotransferase (AST), S 32 8 - 48 U/L 07/24/2024 10:35 AM LOOSELEAF BINDER COVERER DTL Alanine Aminotransferase (ALT), S 14 7 - 55 U/L 07/24/2024 10:35 AM LOOSELEAF BINDER COVERER DTL Alkaline Phosphatase, S 81 40 - 129 U/L 07/24/2024 10:35 AM LOOSELEAF BINDER COVERER DTL Albumin, S 3.2(L) 3.5 - 5.0 g/dL 07/24/2024 10:35 AM LOOSELEAF BINDER COVERER DTL Protein, Total, S 4.6(L) 6.3 - 7.9 g/dL 07/24/2024 10:35 AM LOOSELEAF BINDER COVERER DTL Blood (Blood, Venous) 07/24/2024 7:45 AM L[employer]SELEAF BINDER COVERER 07/24/2024 8:46 AM LOOSELEAF BINDER COVERER us Vanessa Brown P.A.-C. LAB BLOOD ADD-ON Final Result [place] [address] [place] [address], [facility] [address] [place] [address] * (MERVAT) 2D AND LIMITED DOPPLER (07/23/2024 10:02 AM LOOSELEAF BINDER COVERER) Ejection Fraction 55 CV EIMS Mallampati As documented in the RN pre-procedure assessment CV EIMS ASA Class IV CV EIMS Echo H and P 07/23/2024 09:29 CV EIMS Anatomical Region Laterality Modality Cardiac Electrop hysiology 07/23/2024 8:17 AM LOOSELEAF BINDER COVERER Impressions 07/23/2024 6:22 PM LOOSELEAF BINDER COVERER PRE-SEDATION ASSESSMENT & CONSENT (performed immediately prior [...] documented in the medical record and the coal handling supervisor. The physician independently performed a pertinent examination [...] IV. Transesophageal echocardiogram performed by the physician rooming house keeper(s), as listed in this report. LEFT VENTRICLE:Mildly [...] performed during sedation. Tiny anterior pericardial effusion. [id number]-jp-[id number] shunt at atrial level. PROCEDURE:Transesophageal echocardiogram performed at the request of the primary food service cashier. Adult probe inserted without difficulty. See Sedation Narrator or other pertinent record in Epic for additional procedure and sedation information. Transesophageal echocardiogram completed without complications. Transgastric images acquired. CARDIOVERSION:Successful cardioversion with 120 joules after 1 attempt(s). For the complete report, see the Order-Level Documents. Narrative 07/23/2024 6:22 PM LOOSELEAF BINDER COVERER For the complete report, see the Order-Level [...] 6. No regional wall motion abnormalities. 7. Eesi-[id number] shunt at atrial level , small, continuous. [...] 6. No regional wall motion abnormalities. 7. Mnfo-oc-gormm shunt at atrial level , small, continuous. [...] documented in the medical record and the coal handling supervisor. Thephysician independently performed a pertinent examination including aheart, airway, and lung assessment prior to the start of the procedure.The patient history and physical were deemed satisfactory to proceed withthe planned level of sedation. Mallampati Assessment: As documented in theRN pre-procedure assessment. Sedation Plan: Transesophageal echo -moderate sedation. ASA physical status score: Class IV. Transesophagealechocardiogram performed by the physician rooming house keeper(s), as listedin this report. LEFT VENTRICLE:Mildly enlarged [...] injection(s) performed duringsedation. Tiny anterior pericardial effusion. Vpuo-ll-vpgvs shunt atatrial level. PROCEDURE:Transesophageal echocardiogram performed at the request of theprimary food service cashier. Adult probe inserted without difficulty. SeeSedation Narrator or other pertinent record in [facility] for additionalprocedure and sedation information. Transesophageal echocardiogramcompleted without complications. Transgastric images acquired. CARDIOVERSION:Successful cardioversion with 120 joules after 1attempt(s). For the complete report, see the Order-Level Documents. Harpal Hodges P.A.-C. CV ECHO PROCEDURES Fin al Result * Airway (07/23/2024 9:50 AM LOOSELEAF BINDER COVERER) Narrative Radha Timmons APRN, CRNA - 07/23/2024 9:50 AM LOOSELEAF BINDER COVERER Radha Timmons APRN, CRNA 07/23/2024 9:56 AM [...] Procedure outcome: successful Notable Events: no complications Radha Timmons APRN, CRNA ANESTHESIA ORDERABLES F inal Result * Magnesium (07/23/2024 7:06 AM LOOSELEAF BINDER COVERER) Only the most recent of5 resultswithin the time period is included. Magnesium, S 1.9 1.7 - 2.3 mg/dL 07/23/2024 8:18 AM LOOSELEAF BINDER COVERER DTL Blood (Blood, Venous) 07/23/2024 7:06 AM LOOSELEAF BINDER COVERER 07/23/2024 8:00 AM LOOSELEAF BINDER COVERER Ulices Jiménez P.A.-C. LAB BLOOD ADD-ON Final Resul t [facility] [address] [place] [address], [facility] [address] [place] [address] * (ABNORMAL) Amiodarone Level (07/21/2024 2:43 AM LOOSELEAF BINDER COVERER) Amiodarone, S 0.4(L) mcg/mL 07/23/2024 2:38 [address] LOOSELEAF BINDER C[facility]ER [facility] Comment: ----REFERENCE VALUE---- 0.5 - 2.0 (Therapeutic concentration, trough value), >2.5 (Toxic concentration, trough value) Desethylamiodarone 0.2 mcg/mL 2024 2:38 PM LOOSELEAF BINDER C[facility]ER [facility] Comment: ----REFERENCE VALUE---- No therapeutic range established; activity and serum concentration are similar to parent drug. ----ADDITIONAL INFORMATION---- This test was developed and its performance characteristics determined by [facility] in a manner consistent with CLIA requirements. This test has not been cleared or approved by the U.S. Food and Drug Administration. Blood (Blood, Venous) 07/21/2024 2:43 AM LOOSELEAF BINDER COVERER 07/23/2024 7:31 AM LOOSELEAF BINDER COVERER Harpal Hodges P.A.-C. LAB BLOOD NON ADD-ON F inal Result Performing Organization Address City/[facility]/ZIP Co de Phone Number [facility] [address] [place] [address] [facility] [address] [place] [address] [place] [address] * APTT (Activated Partial Thromboplastin Time) (07/20/2024 10:58 AM LOOSELEAF BINDER COVERER) Only the most recent of5 resultswithin the time period is included. Activated Partial Thrombopl Time, P 31 25 - 37 sec 07/20/2024 11:38 AM LOOSELEAF BINDER COVERER [facility] Blood (Blood, Venous) 07/20/2024 10:58 AM LOOSELEAF BINDER COVERER 07/20/2024 11:26 AM LOOSELEAF BINDER COVERER Harpal GrimesCBuddy LAB BLOOD ADD-ON Final Result [facility] [address] [place] [address], [place] [facility] [address] [place] [address] * Buttock/Sacrum-Nursing Image Exam (07/20/2024 8:44 AM LOOSELEAF BINDER COVERER) 07/20/2024 8:41 AM LOOSELEAF BINDER COVERER Narrative IIMS - 07/20/2024 8:44 AM LOOSELEAF BINDER COVERER This order has been created and auto-finalized to support the import of images acquired without order. The clinical documentation to support these images can be found on the encounter that produced images. us Provider Not In System IMG NON RAD IMAGING PROCE DURES Final Result [facility] NA * CT Chest Angiogram and Pulmonary Arteries with IV Contrast (07/19/2024 4:20 PM LOOSELEAF BINDER COVERER) Anatomical Region Laterality Modality Chest, Cardiovascular RST LO S, Thoracic ARZ LOS, Thoracic FLA LOS N/A Computed Tomography, Compute d Tomography 07/19/2024 4:14 PM LOOSELEAF BINDER COVERER Impressions 07/19/2024 4:42 PM LOOSELEAF BINDER COVERER 1. Negative for acute pulmonary embolus. 2. Pulmonary edema and small bilateral pleural effusions. The effusions have increased in size since 06/30/2024. 3. Multifocal consolidation in the lungs has moderately improved since 06/30/2024. 4. Extensive adenopathy in the chest is largely unchanged since 06/30/2024, though several lymph nodes have slightly enlarged. Narrative 07/19/2024 4:42 PM LOOSELEAF BINDER COVERER EXAM: CT CHEST ANGIOGRAM AND PULMONARY ARTERIES [...] example, a 12 mm right axillary node (/) has increased from 7 mm and a [...] nodes have slightly enlarged. Matthew Carlin M.D. Courtney CT PROCEDURES Final Re sult * (ABNORMAL) Dipstick, POCT, Urine (07/19/2024 2:50 PM LOOSELEAF BINDER COVERER) Glucose, POCT, U Negative Negative mg/dL 07/19/2024 2:51 PM LOOSELEAF BINDER COVERER PCED Ketone, POCT, U Negative Negative mg/dL 07/19/2024 2:51 PM LOOSELEAF BINDER COVERER [facility] Specific [place], POCT, U 1.015 1.005 - 1.030 07/19/2024 2:51 PM LOOSELEAF BINDER COVERER [facility] Blood, POCT, U Negative Negative 07/19/2024 2:51 PM LOOSELEAF BINDER COVERER [facility] pH, POCT, Urine 7.0 5.0 - 8.0 07/19/2024 2:51 PM LOOSELEAF BINDER COVERER [facility] Protein, POCT, U 100(A) Negative mg/dL 07/19/2024 2:51 PM LOOSELEAF BINDER COVERER [facility] Nitrites, POCT, U Negative Negative 07/19/2024 2:51 PM LOOSELEAF BINDER COVERER [facility] Leukocytes, POCT, U Negative Negative 07/19/2024 2:51 PM LOOSELEAF BINDER COVERER PCED Urine 07/19/2024 2:50 PM LOOSELEAF BINDER COVERER 07/19/2024 2:52 PM LOOSELEAF BINDER COVERER us Unknown Provider LAB POCT ORDERABLES - DEVICE Fi nal Result POC RST [facility] [address] [place] [address], [facility] PCED [facility] POC [address] [place] [address] * Dipstick, Urine (07/19/2024 2:46 PM LOOSELEAF BINDER COVERER) Hemoglobin, QL, U Negative Negative 07/19/2024 3:22 PM LOOSELEAF BINDER COVERER DTL Leukocyte Esterase, U Negative Negative 07/19/2024 3:22 PM LOOSELEAF BINDER COVERER DTL Nitrite, U Negative Negative 07/19/2024 3:22 PM [employer] D[facility] Ketone, U Negative Negative mg/dL 07/19/2024 3:22 PM [employer] DTL Glucose, U Negative Negative mg/dL 07/19/2024 3:22 PM [employer] DTL Urine 07/19/2024 2:46 PM [employer] 07/19/2024 3:10 PM [employer] Marta Baugh P.A.-C. LAB URINE ORDERABLES Final Result Performing Organization Address City/[facility]/ZIP Co de Phone Number [facility] [address] [place] [address], [facility] D[facility] [address] [place] [address] * (ABNORMAL) Microscopic Manual (07/19/2024 2:46 PM [employer]) Microscopy Abnormal 07/19/2024 4:07 PM [employer] DTL RBC <3 <3 /hpf 07/19/2024 4:07 PM [employer] D[facility] WBC None Seen /hpf 07/19/2024 4:07 PM [employer] BINDER COVERER DTL Comment: ----REFERENCE VALUE---- <4 (Males) <11 (Females) Casts, Granular Occas(A) /lpf 4:07 PM LOOSELEAF BINDER COVERER DTL Urine 07/19/2024 2:46 PM LOOSELEAF BINDER COVERER 07/19/2024 3:22 PM LOOSELEAF BINDER COVERER Marta Baugh P.A.-C. LAB URINE ORDERABLES Final Result Performing Organization Address [facility] Co de Phone Number [facility] [address] [place] [address], [facility] DTL [facility] [address] [place] [address] * Bacterial Culture, Aerobic + Susceptibility, Urine (07/19/2024 2:46 PM LOOSELEAF BINDER COVERER) Urine Culture Urogenital microbiota, susceptibilities not performed per laboratory criteria. 07/20/2024 12:18 PM LOOSELEAF BINDER COVERER DTL Urine (Urine, Midstream) 07/19/2024 2:46 PM LOOSELEAF BINDER COVERER 07/19/2024 5:46 PM LOOSELEAF BINDER COVERER Comment:Specimen Source Site : Urine Matthew Carlin M.D. LAB MICROBIOLOGY - GENERAL ORDERABLES Final Result Performing Organization Address City/[facility]/ZIP Co de Phone Number [facility] [address] [place] [address] * pH, Urine (07/19/2024 2:46 PM LOOSELEAF BINDER COVERER) Pathologist [facility] pH, U 6.8 4.5 - 8.0 07/19/2024 3:5 2 PM LOOSELEAF BINDER COVERER DT Urine 07/19/2024 2:46 PM LOOSELEAF BINDER COVERER 07/19/2024 3:10 PM LOOSELEAF BINDER COVERER us Marta Baugh P.A.-C. LAB URINE ORDERABLES Final Result [facility] [address] 200 [place] [address] * Osmolality, Urine (07/19/2024 2:46 PM LOOSELEAF BINDER COVERER) Only the most recent of2 resultswithin the time period is included. [facility] Osmolality, U 447 150 - 1150 mOsm/kg 07/19/2024 3:52 PM LOOSELEAF BINDER COVERER DT Urine 07/19/2024 2:46 PM LOOSELEAF BINDER COVERER 07/19/2024 3:10 PM LOOSELEAF BINDER COVERER us Marta Baugh P.A.-C. LAB URINE ORDERABLES Final Result [facility] [address] [place] [address] * (ABNORMAL) Urinalysis, with Microscopic: Urine, Midstream (07/19/2024 2:46 PM LOOSELEAF BINDER COVERER) Pathologist [facility] Source Urine, Urine, Midstream 07/19/2024 3:10 PM LOOSELEAF BINDER COVERER DTL Color, U Yellow 07/19/2024 3:10 PM LOOSELEAF BINDER COVERER DTL Clarity, U Clear 07/19/2024 3:10 PM LOOSELEAF BINDER COVERER DTL Protein, U 60(H) <26 mg/dL 07/19/2024 3:47 PM LOOSELEAF BINDER COVERER DTL Protein/Osmol ality 1.34(H) <0.42 ratio 07/19/2024 3:52 PM LOOSELEAF BINDER COVERER DTL Predicted 24 HR Protein, U 1247(H) <229 mg/24 h 07/19/2024 3:52 PM LOOSELEAF BINDER COVERER DTL Predicted Range 396-3928 mg/24 h 07/19/2024 3:52 PM LOOSELEAF BINDER COVERER DTL Urine (Urine, Midstream) 07/19/2024 2:46 PM LOOSELEAF BINDER COVERER 07/19/2024 3:10 PM LOOSELEAF BINDER COVERER Matthew Carlin M.D. LAB URINE ORDERABLES Final Result Performing Organization Address City/[facility]/ZIP Co de Phone Number [address] [place] [address] * (ABNORMAL) Troponin T, 2 Hour with 6 Hour Reflex, 5th Gen (07/19/2024 1:07 PM LOOSELEAF BINDER COVERER) Troponin T, 2 hr, 5th gen 33(H) <=15 ng/L 07/19/2024 1:43 PM LOOSELEAF BINDER COVERER STMA 2H Delta 1 ng/L 07/19/2024 1:43 PM LOOSELEAF BINDER COVERER STMA Comment:6 hour collection no t indicated. 2H Delta Interp Not Changing 07/19/2024 1:43 PM LOOSELEAF BINDER COVERER STMA Blood 07/19/2024 1:07 PM LOOSELEAF BINDER COVERER 07/19/2024 1:16 PM LOOSELEAF BINDER COVERER Marta Baugh P.A.-C. LAB BLOOD TROPONIN Fi nal Result Performing Organization Address City/[facility]/ZIP Co de Phone Number [address] [place] [address] * (ABNORMAL) T4 (Thyroxine), Free, Serum (07/19/2024 1:07 PM LOOSELEAF BINDER COVERER) T4 (Thyroxine), Free, S 1.8(H) 0.9 - 1.7 ng/dL 07/19/2024 2:43 PM LOOSELEAF BINDER COVERER DTL Blood 07/19/2024 1:07 PM LOOSELEAF BINDER COVERER 07/19/2024 1:33 PM LOOSELEAF BINDER COVERER Matthew Carlin M.D. LAB BLOOD ADD-ON Final Res ult Performing Organization Address [facility] Co de Phone Number [facility] [address] [place] [address], [facility] [address] [place] [address] * (ABNORMAL) Thyroid Function [place] (07/19/2024 1:07 PM LOOSELEAF BINDER COVERER) [facility] TSH, Sensitive 4.4(H) 0.3 - 4.2 mIU/L 07/19/2024 2:27 PM LOOSELEAF BINDER COVERER DTL Blood (Blood, Venous) 07/19/2024 1:07 PM LOOSELEAF BINDER COVERER 07/19/2024 1:33 PM LOOSELEAF BINDER COVERER Matthew Carlin M.D. LAB BLOOD ADD-ON Final Res ult Performing Organization Address [facility] de Phone Number [facility] [address] [place] [address] * Lactate, POCT (07/19/2024 1:07 PM LOOSELEAF BINDER COVERER) [facility] Lactate, POCT 1.04 0.50 - 2.20 mmol/L 07/19/2024 1:15 PM LOOSELEAF BINDER COVERER [facility] Blood (Blood, Venous) 07/19/2024 1:07 PM LOOSELEAF BINDER COVERER 07/19/2024 1:07 PM LOOSELEAF BINDER COVERER Matthew Carlin M.D. LAB POCT ORDERABLES - BRAD CE Final Result Performing Organization Address [facility] Co de Phone Number P[facility] [address] [place] [address], [facility] PCLX [facility] POC 200 [facility] [place] [address] * Thyroperoxidase (TPO) Antibodies (07/19/2024 1:07 PM LOOSELEAF BINDER COVERER) Pathologist [facility] Thyroperoxidase Ab, S <15.0 <34.0 IU/mL 07/19/2024 2:43 PM LOOSELEAF BINDER COVERER DTL Blood 07/19/2024 1:07 PM LOOSELEAF BINDER COVERER 07/19/2024 1:33 PM LOOSELEAF BINDER COVERER Matthew Carlin M.D. LAB BLOOD ADD-ON Final Res ult Performing Organization Address City/[facility]/ZIP Co de Phone Number [facility] [address] [place], [place] [id number] [place] [address] [facility] [address] [place] [address] * (ABNORMAL) D-Dimer (07/19/2024 1:07 PM LOOSELEAF BINDER COVERER) Pathologist [facility] D-Dimer, P 1273(H) <=500 ng/mL FEU 07/19/2024 1:28 PM LOOSELEAF BINDER COVERER [facility] Comment: D-dimer concentrations increase with age. For [...] (PE). Blood (Blood, Venous) 07/19/2024 1:07 PM LOOSELEAF BINDER COVERER 07/19/2024 1:16 PM LOOSELEAF BINDER COVERER us Matthew Carlin M.D. LAB BLOOD ADD-ON Final Res ult [facility] [address] [place] [address], [facility] STMA [facility] 200 [place] [address] * DX Chest AP or PA and Lateral 2 Views (07/19/2024 10:23 AM LOOSELEAF BINDER COVERER) Anatomical Region Laterality Modality Chest, Thoracic RST LOS, Tho racic ARZ LOS, Thoracic FLA LOS N/A Digital Radiography Impressions 07/19/2024 10:26 AM LOOSELEAF BINDER COVERER Improved bilateral airspace and interstitial opacities from 07/04/2024. Trace to small pleural effusions, left greater than right. No discernible pneumothorax. Stable cardiac silhouette. MitraClip. Aortic calcifications. Narrative 07/19/2024 10:26 AM LOOSELEAF BINDER COVERER EXAM: DX CHEST AP OR PA AND LATERAL 2 VIEWS Procedure Note Cali Triplett D.O. - 07/19/2024 EXAM: DX CHEST AP OR PA AND LATERAL 2 VIEWS IMPRESSION: Improved bilateral airspace and interstitial opacities from 07/04/2024.Trace to small pleural effusions, left greater than right. No discerniblepneumothorax. Stable cardiac silhouette. MitraClip. Aortic calcifications. us Matthew Carlin M.D. IMG DIAGNOSTIC IMAGING PRO CEDURES Final Result * (ABNORMAL) Troponin T, Baseline with 2 Hour/6 Hour Reflex Biomarker Panel (07/19/2024 10:15 AM LOOSELEAF BINDER COVERER) Troponin T, Baseline, 5th gen 32(H) <=15 ng/L 07/19/2024 10:55 AM LOOSELEAF BINDER COVERER [facility] Blood (Blood, Venous) 07/19/2024 10:15 AM LOOSELEAF BINDER COVERER 07/19/2024 10:23 AM LOOSELEAF BINDER COVERER us Matthew Carlin M.D. LAB BLOOD TROPONIN Final R esult [facility] 200 [place] [address], [place] [facility] 200 [place] [address] * Glucose, POCT (07/19/2024 10:15 AM LOOSELEAF BINDER COVERER) [facility] Glucose, POCT, B 116 70 - 140 mg/dL 07/19/2024 10:20 AM LOOSELEAF BINDER COVERER [facility] Blood (Blood, Capillary) 07/19/2024 10:15 AM LOOSELEAF BINDER COVERER 07/19/2024 10:15 AM LOOSELEAF BINDER COVERER Matthew Carlin M.D. LAB POCT ORDERABLES-MANUAL Final Result Performing Organization Address City/[facility]/ZIP Co de Phone Number POC [facility] [address] [place] [address], [facility] PCLX [facility] 200 [place] [address] * (ABNORMAL) Morphology Eval (special smear) (07/19/2024 10:14 AM LOOSELEAF BINDER COVERER) [facility] Neutrophilic Segs and Bands 19(L) 50 - 75 % 07/19/2024 11:18 AM LOOSELEAF BINDER COVERER [facility] Lymphocytes 79(H) 18 - 42 % 07/19/2024 11:18 AM LOOSELEAF BINDER COVERER [facility] Monocytes 2 2 - 11 % 07/19/2024 11:18 AM LOOSELEAF BINDER COVERER DHPM Manual Absolute Neutrophil Count 7.01(H) 1.56 - 6.45 x10(9)/L 07/19/2024 11:18 AM LOOSELEAF BINDER COVERER DHPM Comment: ----ADDITIONAL INFORMATION---- The manual absolute neutrophil count is derived from a manual differential count and therefore is not exactly comparable to the automated absolute neutrophil count. Blood 07/19/2024 10:1 4 AM LOOSELEAF BINDER COVERER 07/19/2024 10:23 AM LOOSELEAF BINDER COVERER Matthew Carlin M.D. LAB BLOOD ADD-ON Final Res ult Performing Organization Address City/[facility]/ZIP Co de Phone Number [facility] [address] [place] [address], [facility] 200 [place] [address] * (ABNORMAL) CBC with Differential, Blood (07/19/2024 10:14 AM LOOSELEAF BINDER COVERER) Only the most recent of8 resultswithin the time period is included. [facility] Hemoglobin 10.7(L) 13.2 - 16.6 g/dL 07/19/2024 10:25 AM LOOSELEAF BINDER COVERER [facility]MA Hematocrit 34.3(L) 38.3 - 48.6 % 07/19/2024 10:25 AM LOOSELEAF BINDER COVERER STMA Erythrocytes 3.70(L) 4.35 - 5.65 x10(12)/L 07/19/2024 10:25 AM LOOSELEAF BINDER COVERER STMA MCV 92.7 78.2 - 97.9 fL 07/19/2024 10:25 AM LOOSELEAF BINDER COVERER ST[facility] RBC Distrib Width 16.4(H) 11.8 - 14.5 % 07/19/2024 10:25 AM LOOSELEAF BINDER COVERER STMA Platelet Count 277 135 - 317 x10(9)/L 07/19/2024 10:25 AM LOOSELEAF BINDER COVERER [facility] Leukocytes 36.9(H) 3.4 - 9.6 x10(9)/L 07/19/2024 11:18 AM LOOSELEAF BINDER COVERER [facility] Neutrophils See Comment 1.56 - 6.45 x10(9)/L 07/19/2024 11:18 AM LOOSELEAF BINDER COVERER [facility] Comment:Auto-diff results no t valid. See manual differential. Blood (Blood, Venous) 07/19/2024 10:14 AM LOOSELEAF BINDER COVERER 07/19/2024 10:23 AM LOOSELEAF BINDER COVERER Matthew Carlin M.D. LAB BLOOD ADD-ON Final Res ult [facility] [address] [place] [address], [facility] [address] [place] [address] [facility] [address] [place] [address] * (ABNORMAL) Immunoglobulins (IgG, IgA, and IgM) (07/07/2024 10:09 AM LOOSELEAF BINDER COVERER) Only the most recent of2 resultswithin the time period is included. Pathologist [facility] Immunoglobulin A (IgA), S 71 61 - 356 mg/dL 07/09/2024 11:21 AM LOOSELEAF BINDER COVERER [facility] Immunoglobulin M (IgM), S <5(L) 37 - 286 mg/dL 07/09/2024 12:02 PM LOOSELEAF BINDER COVERER [facility] Immunoglobulin G (IgG), S 178(L) 767 - 1590 mg/dL 07/09/2024 11:22 AM LOOSELEAF BINDER [address]ER [facility] Blood (Blood, Venous) 07/07/2024 10:09 AM LOOSELEAF BINDER COVERER 07/09/2024 6:43 AM LOOSELEAF BINDER COVERER Lauren Pena M.D. LAB BLOOD ADD-ON Final Result [facility] [address] [place] [address] [facility] [address] [place] [address] * Transfuse Red Blood Cells : (07/06/2024 6:39 PM LOOSELEAF BINDER COVERER) Aurelio Gibbons D.D.S. BLOOD TRANSFUSION ORDER ANAIS Final Result * Type and Screen (with Reflex Antibody ID) (07/06/2024 2:14 PM LOOSELEAF BINDER COVERER) Pathologist [facility] ABORh B Pos Not applicable 07/06/2024 2:46 PM LOOSELEAF BINDER COVERER STRM Antibody Screen Negative Negative 07/06/2024 3:07 PM LOOSELEAF BINDER COVERER STRM Type & Screen Expiration 07/09/2024 23:59 07/06/2024 2:46 PM LOOSELEAF BINDER COVERER STRM Testing Location Kate DEFAULT 07/06/2024 2:24 PM LOOSELEAF BINDER COVERER STR Blood (Blood, Venous) 07/06/2024 2:14 PM LOOSELEAF BINDER COVERER 07/06/2024 2:24 PM LOOSELEAF BINDER COVERER Aurelio Gibbons D.D.S. LAB BLOOD BANK TEST ORD ERABLES Final Result [facility] [address] [place] [address], [facility] STRM [facility] [address] [place] [address] * Sodium, Random, Urine (07/05/2024 10:47 AM LOOSELEAF BINDER COVERER) Pathologist [facility] Sodium, Random, U 112 mmol/L 07/05/2024 11:33 AM LOOSELEAF BINDER COVERER DTL Comment: ----REFERENCE VALUE---- Random urine sodium may be interpreted in conjunction with serum sodium, using both values to calculate fractional excretion of sodium. Urine (Urine, Midstream) 07/05/2024 10:47 AM LOOSELEAF BINDER COVERER 07/05/2024 11:06 AM LOOSELEAF BINDER COVERER Aurelio Gibbons D.D.S. LAB URINE ORDERABLES Fi nal Result Performing Organization Address [facility]/ZIP Co de Phone Number [facility] [address] [place] [address] * (ABNORMAL) Osmolality (07/05/2024 10:19 AM LOOSELEAF BINDER COVERER) Osmolality, S 268(L) 275 - 295 mOsm/kg 07/05/2024 11:17 AM LOOSELEAF BINDER COVERER DT Blood (Blood, Venous) 07/05/2024 10:19 AM LOOSELEAF BINDER COVERER 07/05/2024 11:06 AM LOOSELEAF BINDER COVERER Aurelio Gibbons D.D.S. LAB BLOOD ADD-ON Final Result Performing Organization Address [facility] Co de Phone Number [facility] [address] [place] [address] * Phosphorus Inorganic (07/05/2024 12:12 AM LOOSELEAF BINDER COVERER) Phosphorus (Inorganic), S 2.9 2.5 - 4.5 mg/dL 07/05/2024 11:16 AM LOOSELEAF BINDER COVERER DT Blood 07/05/2024 12:1 2 AM LOOSELEAF BINDER COVERER 07/05/2024 10:39 AM LOOSELEAF BINDER COVERER Alexa CourtneyPh. LAB BLOOD ADD-ON Anabelle l Result Performing Organization Address City/[facility]/ZIP Co de Phone Number [facility] [address] [place] [address] * DX Chest Portable 1 View (07/04/2024 7:38 AM LOOSELEAF BINDER COVERER) Anatomical Region Laterality Modality Chest, Thoracic RST LOS, Tho racic ARZ LOS, Thoracic FLA LOS N/A Digital Radiography Impressions 07/04/2024 7:50 AM LOOSELEAF BINDER COVERER Since 03/13/2024, new multifocal interstitial and airspace opacities throughout the lungs which is nonspecific may be due to pneumonia including atypical infections or edema. Small left and trace right pleural effusions. MitraClip. Aortic calcifications. Old left rib fracture deformity. Narrative 07/04/2024 7:50 AM LOOSELEAF BINDER COVERER EXAM: DX CHEST PORTABLE 1 VIEW Procedure Note Sd Owusu M.D. - 07/04/2024 EXAM: DX CHEST PORTABLE 1 VIEW IMPRESSION: Since 03/13/2024, new multifocal interstitial and airspace opacitiesthroughout the lungs which is nonspecific may be due to pneumoniaincluding atypical infections or edema. Small left and trace right pleuraleffusions. MitraClip. Aortic calcifications. Old left rib fracture deformity. Aurelio Gibbons D.D.S. IMG DIAGNOSTIC IMAGING PROCEDURES Final Result * (ABNORMAL) CRP (C-Reactive Protein) (07/04/2024 12:19 AM LOOSELEAF BINDER COVERER) Only the most recent of2 resultswithin the time period is included. C-Reactive Protein (CRP), S 53.3(H) <5.0 mg/L 07/04/2024 1:22 AM LOOSELEAF BINDER COVERER DTL Blood (Blood, Venous) 07/04/2024 12:19 AM LOOSELEAF BINDER COVERER 07/04/2024 1:05 AM LOOSELEAF BINDER COVERER Cam Vyas M.D. LAB BLOOD ADD-ON Final Re sult [facility] [address] [place] [address], [facility] DTL [facility] [address] [place] [address] * Histoplasma and Blastomyces Antigen, Enzyme Immunoassay, Serum (07/03/2024 1:29 PM LOOSELEAF BINDER COVERER) [facility] Histoplasma/Blasto myces Ag Result Not Detected Not Detected 07/04/2024 2:09 PM LOOSELEAF BINDER C[facility]ER [facility] Comment: No antigen from Histoplasma or Blastomyces detected. False negative results may occur depending on extent of disease, and/or site of infection. Repeat testing on a new specimen if clinically indicated. Histoplasma/Blasto myces Ag Value Not Detected ng/mL 07/04/2024 2:09 PM LOOSELEAF BINDER COVERER [facility] Comment: ----ADDITIONAL INFORMATION---- This test was developed and its performance characteristics determined by [facility] in a manner consistent with CLIA requirements. This test has not been cleared or approved by the U.S. Food and Drug Administration. Blood (Blood, Venous) 07/03/2024 1:29 PM LOOSELEAF BINDER COVERER 07/03/2024 5:04 PM LOOSELEAF BINDER COVERER Lauren Pena M.D. LAB MICROBIOLOGY - BLOO D ORDERABLES Final Result [facility] [address] [place] [address] [facility] [address] [place] [address] [place] [address] * Cryptococcus Antigen Screen with Titer (07/03/2024 1:29 PM LOOSELEAF BINDER COVERER) Only the most recent of2 resultswithin the time period is included. [facility] Cryptococcus Ag Screen w/Titer, S Negative Negative 07/03/2024 9:36 PM LOOSELEAF BINDER COVERER [facility] Comment: A single negative result does not exclude the diagnosis of cryptococcosis. Repeat testing on a new sample if clinically indicated. ----ADDITIONAL INFORMATION---- This assay was performed using the FDA-cleared [employer] Cryptococcus Antigen Lateral Flow Assay. Blood (Blood, Venous) 07/03/2024 1:29 PM LOOSELEAF BINDER COVERER 07/03/2024 5:04 PM LOOSELEAF BINDER COVERER Lauren Pena M.D. LAB MICROBIOLOGY - BLOO D ORDERABLES Final Result [facility] [address] [place] [address] [facility] [address] [place] [address] [place] [address] * Isavuconazole Susceptibility Test-Sent Out Lab (07/02/2024 2:07 PM LOOSELEAF BINDER COVERER) Isavuconazole Susceptibility Test SEE COMMENT 07/20/2024 8:44 AM LOOSELEAF BINDER COVERER [facility] Comment: For final report, select Lab-Send Out Lab Results hyperlink below. 07/02/2024 2:07 PM LOOSELEAF BINDER COVERER 07/12/2024 7:33 AM LOOSELEAF BINDER COVERER us Catherine Garcia M.D. LAB MICROBIOLOGY - GENERAL ORD ERABLES Final Result Performing Organization Address [facility] Co de Phone Number [address] Department [place] [address], [address] [facility] [place] [address] * Amphotericin B Susceptibility Testing - Sent Out Lab (07/02/2024 2:07 PM LOOSELEAF BINDER COVERER) Amphotericin B Susceptibility SEE COMMENT 07/20/2024 8:44 AM LOOSELEAF BINDER COVERER [facility] Comment: For final report, select Lab-Send Out Lab Results hyperlink below. 07/02/2024 2:07 PM LOOSELEAF BINDER COVERER 07/12/2024 7:33 AM LOOSELEAF BINDER COVERER us Catherine Garcia M.D. LAB MICROBIOLOGY - GENERAL ORD ERABLES Final Result [address] Department [place] [address], [address] [facility] [place] [address] * SARS CoV-2 RNA, PCR (07/02/2024 2:07 PM LOOSELEAF BINDER COVERER) SARS CoV-2 RNA, PCR, Source Lavage-ICH, Bronchoalveolar Lavage-ICH 07/02/2024 11:46 PM LOOSELEAF BINDER COVERER SDS SARS CoV-2 RNA, PCR Undetected Undetected 07/02/2024 11:46 PM LOOSELEAF BINDER COVERER SDS Comment: SARS-CoV-2 RNA absent. This result [...] and Drug Administration and is used per radioisotope technician's instructions. Performance characteristics were verified by [facility] in a manner consistent with CLIA requirements. Visit the CDC website: https://www.cdc.gov/coronavirus/ for the most recent guidelines on Coronavirus testing. Fact Sheet for Healthcare Providers: https://www.fda.gov/media/501979/download Fact Sheet for Patients: https://www.fda.gov/media/418645/download Lavage-ICH (Bronchoalveolar Lavage-ICH) 07/02/2024 2:07 PM LOOSELEAF BINDER COVERER Lamberto Schaefer M.D. LAB MICROBIOLOGY - GENERAL ORD ERABLES Final Result [facility] [address] [place] [address] [facility] [address] [place] [address] [place] [address] * (ABNORMAL) Pneumonia Panel, PCR (07/02/2024 2:07 PM LOOSELEAF BINDER COVERER) Only the most recent of2 resultswithin the time period is included. Pathologist [facility] Specimen Source Lavage-ICH, Bronchoalveolar Lavage-ICH 5 7:32 PM LOOSELEAF BINDER COVERER DTL Acinetobacter calcoaceticus-bau mannii complex Undetected Undetected copies/mL 5 7:32 PM LOOSELEAF BINDER COVERER DTL Enterobacter cloacae complex Undetected Undetected copies/mL 5 7:32 PM LOOSELEAF BINDER COVERER DTL Escherichia coli Undetected Undetected copies/mL 5 7:32 PM LOOSELEAF BINDER COVERER DTL Haemophilus influenzae Undetected Undetected copies/mL 5 7:32 PM LOOSELEAF BINDER COVERER DTL Klebsiella aerogenes Undetected Undetected copies/mL 5 7:32 PM LOOSELEAF BINDER COVERER DTL Klebsiella oxytoca Undetected Undetected copies/mL 5 7:32 PM LOOSELEAF BINDER COVERER DTL Klebsiella pneumoniae complex Undetected Undetected copies/mL 5 7:32 PM LOOSELEAF BINDER COVERER DTL Moraxella catarrhalis Undetected Undetected copies/mL 5 7:32 PM LOOSELEAF BINDER COVERER DTL Proteus species Undetected Undetected copies/mL 5 7:32 PM LOOSELEAF BINDER COVERER DTL Pseudomonas aeruginosa Undetected Undetected copies/mL 5 7:32 PM LOOSELEAF BINDER COVERER DTL Serratia marcescens Undetected Undetected copies/mL 5 7:32 PM LOOSELEAF BINDER COVERER DTL Staphylococcus aureus complex Undetected Undetected copies/mL 5 7:32 PM LOOSELEAF BINDER COVERER DTL Streptococcus agalactiae Undetected Undetected copies/mL 5 7:32 PM LOOSELEAF BINDER COVERER DTL Streptococcus pneumoniae Undetected Undetected copies/mL 5 7:32 PM LOOSELEAF BINDER COVERER DTL Streptococcus pyogenes Undetected Undetected copies/mL 5 7:32 PM LOOSELEAF BINDER COVERER DTL Chlamydia pneumoniae Undetected Undetected 5 7:32 PM LOOSELEAF BINDER COVERER DTL Legionella pneumophila Undetected Undetected 5 7:32 PM LOOSELEAF BINDER COVERER DTL Mycoplasma pneumoniae Undetected Undetected 5 7:32 PM LOOSELEAF BINDER COVERER DTL Adenovirus Undetected Undetected 5 7:32 PM LOOSELEAF BINDER COVERER DTL Coronavirus Undetected Undetected 5 7:32 PM LOOSELEAF BINDER COVERER DTL Human Metapneumovirus Detected(A) Undetected 5 7:32 PM LOOSELEAF BINDER COVERER DTL Human Rhinovirus/Entero virus Undetected Undetected 5 7:32 PM LOOSELEAF BINDER COVERER DTL Influenza A Undetected Undetected 5 7:32 PM LOOSELEAF BINDER COVERER DTL Influenza B Undetected Undetected 5 7:32 PM LOOSELEAF BINDER COVERER DTL Parainfluenza Undetected Undetected 5 7:32 PM LOOSELEAF BINDER COVERER DTL Respiratory Syncytial Virus Undetected Undetected 5 7:32 PM LOOSELEAF BINDER COVERER DTL Comment: ----ADDITIONAL INFORMATION---- This assay is performed using the FDA-cleared [employer] Pneumonia Panel (PN) (Invisible.). Any initial empiric treatment guidance provided in [...] SARS-CoV-2. Lavage-ICH (Bronchoalveolar Lavage-ICH) 07/02/2024 2:07 PM [employer] us Lamberto Schaefer M.D. LAB MICROBIOLOGY - GENERAL ORD ERABLES Final Result [facility] [address] [place] [address], [facility] [address] [facility] [address] [place] [address] * Misc U [facility] Ant Test (07/02/2024 2:07 PM [employer]OVER[employer]) Test Name Micafungin 07/12/2024 7:33 AM [employer] MIRYAM Result SEE COMMENT 07/20/2024 8:44 AM [employer] MIRYAM Comment: For final report, select Lab-Send Out Lab Results hyperlink below. 07/02/2024 2:07 PM LOOSELEAF BINDER COVERER 07/12/2024 7:33 AM LOOSELEAF BINDER COVERER us Catherine Garcia M.D. LAB MISC ORDERABLES Final Resu lt [facility] [address] [facility] Department [place] [address], [place] MIRYAM [facility] [address] [place] [address] [facility] Dept [place] [address] * Voriconazole Susceptibility Testing - Sent Out Lab (07/02/2024 2:07 PM LOOSELEAF BINDER COVERER) Voriconazole Susceptibility Testing SEE COMMENT 07/20/2024 8:44 AM LOOSELEAF BINDER COVERER MIRYAM Comment: For final report, select Lab-Send Out Lab Results hyperlink below. 07/02/2024 2:07 PM LOOSELEAF BINDER COVERER 07/12/2024 7:33 AM LOOSELEAF BINDER COVERER us Catherine Garcia M.D. LAB MICROBIOLOGY - GENERAL ORD ERABLES Final Result Performing Organization Address [facility] Co de Phone Number [address] Department [place] [address], [address] [facility] Dept [place] [address] * Posaconazole Susceptibility Testing - Sent Out Lab (07/02/2024 2:07 PM LOOSELEAF BINDER COVERER) [facility] Posaconazole (POS) Susceptibility SEE COMMENT 07/20/2024 8:44 AM LOOSELEAF BINDER COVERER MIRYAM Comment: For final report, select Lab-Send Out Lab Results hyperlink below. 07/02/2024 2:07 PM LOOSELEAF BINDER COVERER 07/12/2024 7:33 AM LOOSELEAF BINDER COVERER us Catherine Garcia M.D. LAB MICROBIOLOGY - GENERAL ORD ERABLES Final Result Performing Organization Address [facility] de Phone Number [address] Department [place] [address], [address] [facility] Dept [place] [address] * Cytology Non-FAMILY SERVICE CASEWORKER (07/02/2024 2:07 PM LOOSELEAF BINDER COVERER) Pathologist [facility] 07/03/2024 3:26 PM LOOSELEAF BINDER COVERER DTL Report electronically signed by Rhea Green M.D. I verify that I have examined all relevant slides/materia ls for the specimen(s) and rendered or confirmed the diagnosis. 07/03/2024 3:26 PM LOOSELEAF BINDER COVERER DTL Gross Description Received blood tinged fluid in CytoLyt container. 07/03/2024 3:26 PM LOOSELEAF BINDER COVERER DTL Source C. Bronchoalveola r, lavage 07/03/2024 3:26 PM LOOSELEAF BINDER COVERER DTL Interpretation C. Bronchoalveola r, lavage (ThinPrep): Negative for malignancy. Hemosiderin laden macrophages present. 07/03/2024 3:26 PM LOOSELEAF BINDER COVERER DTL Lavage-ICH (Bronchoalveolar Lavage-ICH) 07/02/2024 2:07 PM LOOSELEAF BINDER COVERER us Lamberto Schaefer M.D. LAB SURG PATH ORDERABLES Final Result [facility] [address] [place] [address], [facility] DTL [address] [place] [address] * Cell Count and Differential, Bronchoalveolar Lavage (07/02/2024 2:07 PM LOOSELEAF BINDER COVERER) Fluid Type BAL DEFAULT 07/02/2024 5:46 PM LOOSELEAF BINDER COVERER DHPM Gross appearance Slightly bloody 07/02/2024 5:46 PM LOOSELEAF BINDER COVERER DHPM Total Nucleated Cells 39.9 x10(6) 07/02/2024 5:46 PM LOOSELEAF BINDER COVERER DHPM Comment: ----REFERENCE VALUE---- The reference range and other method performance specifications have not been established for this body fluid. The test result must be integrated into the clinical context for interpretation. ----ADDITIONAL INFORMATION---- This test has been modified from the radioisotope technician's instructions. Its performance characteristics were determined by [facility] in a manner consistent with CLIA requirements. This test has not been cleared or approved by the U.S. Food and Drug Administration. Volume Recovered 36 mL 07/02/19 25 5:46 PM LOOSELEAF BINDER COVERER DHPM Alveolar Macrophage 38 % 07/02 8:52 PM LOOSELEAF BINDER COVERER DHPM Comment: ----REFERENCE VALUE---- The reference range and other method performance specifications have not been established for this body fluid. The test result must be integrated into the clinical context for interpretation. Lymphocytes 5 % 07/02/2024 8:52 PM LOOSELEAF BINDER COVERER [facility] Comment: ----REFERENCE VALUE---- The reference range and other method performance specifications have not been established for this body fluid. The test result must be integrated into the clinical context for interpretation. Neutrophils 47 % 07/02/2024 8:52 PM LOOSELEAF BINDER COVERER [facility] Comment: ----REFERENCE VALUE---- The reference range and other method performance specifications have not been established for this body fluid. The test result must be integrated into the clinical context for interpretation. Other Cells 10 % 07/02/2024 8:52 PM LOOSELEAF BINDER COVERER [facility] Comment: ----REFERENCE VALUE---- The reference range and other method performance specifications have not been established for this body fluid. The test result must be integrated into the clinical context for interpretation. Comment See Comment 07/02/2024 8:55 PM LOOSELEAF BINDER COVERER [facility] Comment: Cytology concurrently ordered, see separate report.Others are lining cells.Pigment-laden macrophages. Lavage-ICH (Bronchoalveolar Lavage-ICH) 07/02/2024 2:07 PM LOOSELEAF BINDER COVERER Lamberto Schaefer M.D. LAB BODY FLUIDS AND STOOLS ORD ERABLES Final Result [id number] [place] [address] [address] [place] [address] * Pneumocystis PCR (07/02/2024 2:07 PM LOOSELEAF BINDER COVERER) Only the most recent of2 resultswithin the time period is included. Specimen Source Lavage-ICH, Bronchoalveolar Lavage-ICH 11:43 PM LOOSELEAF BINDER COVERER DTL Pneumocystis PCR Negative Not Applicable 5 11:43 PM LOOSELEAF BINDER COVERER DTL Comment: ----ADDITIONAL INFORMATION---- This test was developed and its performance characteristics determined by [facility] in a manner consistent with CLIA requirements. This test has not been cleared or approved by the U.S. Food and Drug Administration. Lavage-ICH (Bronchoalveolar Lavage-ICH) 07/02/2024 2:07 PM LOOSELEAF BINDER COVERER us Lamberto Schaefer M.D. LAB MICROBIOLOGY - GENERAL ORD ERABLES Final Result Performing Organization Address City/[facility]/ZIP Co de Phone Number [facility] [address] [place] [address], [facility] 200 [facility] 200 [place] [address] * (ABNORMAL) Bacterial Culture, Aerobic + Susceptibility, Respiratory (07/02/2024 2:07 PM LOOSELEAF BINDER COVERER) Only the most recent of2 resultswithin the time period is included. Bacterial Culture, Aerobic, Resp With upper respiratory/ora l microbiota(A) 07/04/2024 1:05 PM LOOSELEAF BINDER COVERER DTL Bacterial Culture, Aerobic, Resp YEAST or FILAMENTOUS FUNGUS 2+ (A) 07/04/2024 1:05 PM LOOSELEAF BINDER COVERER DTL Lavage-ICH (Bronchoalveolar Lavage-ICH) 07/02/2024 2:07 PM LOOSELEAF BINDER COVERER Lamberto Schaefer M.D. LAB MICROBIOLOGY - GENERAL ORD ERABLES Final Result Performing Organization Address City/[facility]/ZIP Co de Phone Number [facility] [address] [place] [address], [facility] [address] [place] [address] * Nocardia Stain (07/02/2024 2:07 PM LOOSELEAF BINDER COVERER) Nocardia Stain Negative. 07/02/2024 9:44 PM LOOSELEAF BINDER COVERER DTL Lavage-ICH (Bronchoalveolar Lavage-ICH) 07/02/2024 2:07 PM LOOSELEAF BINDER COVERER Lamberto Schaefer M.D. LAB MICROBIOLOGY - GENERAL ORD ERABLES Final Result Performing Organization Address City/[facility]/ZIP Co de Phone Number [facility] [address] [place] [address], [facility] [address] [place] [address] * Legionella PCR (07/02/2024 2:07 PM LOOSELEAF BINDER COVERER) Specimen Source Lavage-ICH, Bronchoalveolar Lavage-ICH 01/28/202 5 11:06 PM LOOSELEAF BINDER COVERER DT Legionella PCR, Result Negative Not Applicable 5 11:06 PM LOOSELEAF BINDER COVERER DT Comment: ----ADDITIONAL INFORMATION---- This test was developed and its performance characteristics determined by [facility] in a manner consistent with CLIA requirements. This test has not been cleared or approved by the U.S. Food and Drug Administration. Lavage-ICH (Bronchoalveolar Lavage-ICH) 07/02/2024 2:07 PM LOOSELEAF BINDER COVERER Lamberto Schaefer M.D. LAB MICROBIOLOGY - GENERAL ORD ERABLES Final Result Performing Organization Address City/[facility] Co de Phone Number [facility] [address] [place] [address], [facility] DT [address] [facility] 200 [place] [address] * (ABNORMAL) Aspergillus Antigen, Bronchoalveolar Lavage (07/02/2024 2:07 PM LOOSELEAF BINDER COVERER) Aspergillus Ag, BAL 0.912(A) <0.5 index 07/03/2024 9:42 [address]LEAF BINDER [address] [facility] Comment: Elevated galactomannan levels have been reported [...] the FDA-cleared Bio-Rad Platelia Aspergillus Galactomannan EIA. Lavage-ICH (Bronchoalveolar Lavage-ICH) 07/02/2024 2:07 PM LOOSELEAF BINDER COVERER us Lamberto Schaefer M.D. LAB MICROBIOLOGY - GENERAL ORD ERABLES Final Result Performing Organization Address City/[facility]/ZIP Co de Phone Number [facility] [address] [place] [address] [facility] [address] [place] [address] [place] [address] * (ABNORMAL) Mycobacterial Culture (07/02/2024 2:07 PM LOOSELEAF BINDER COVERER) [facility] Mycobacterial Culture MYCOBACTERIUM HALLIE Pelayo (A) 08/14/2024 3:06 PM CDT DTL Comment: [...] interpretations. Semi-Urgent This is a semi-urgent result(STODDARD) [facility] Lavage-ICH (Bronchoalveolar Lavage-ICH) 07/02/2024 2:07 PM LOOSELEAF BINDER COVERER Narrative Organism Antibiotic Method Susceptibility Mycobacterium intracellulare [...] only macrolide that needs to be tested. us Lamberto Schaefer M.D. LAB MICROBIOLOGY - GENERAL ORD ERABLES Final Result [facility] 200 [place] [address], [facility] [address] [place] [address] * (ABNORMAL) Fungal Smear (07/02/2024 2:07 PM LOOSELEAF BINDER COVERER) Fungal Smear YEAST and PSEUDOHYPH AE(A) 07/02/2024 6:45 PM LOOSELEAF BINDER COVERER DTL Lavage-ICH (Bronchoalveolar Lavage-ICH) 07/02/2024 2:07 PM LOOSELEAF BINDER COVERER us Lamberto Schaefer M.D. LAB MICROBIOLOGY - GENERAL ORD ERABLES Final Result [facility] [address] [place] [address] * Legionella Culture (07/02/2024 2:07 PM LOOSELEAF BINDER COVERER) Legionella Culture Overgrowth of fungus prevents isolation of requested organism. Culture discarded. 07/11/2024 9:17 AM LOOSELEAF BINDER COVERER DTL Lavage-ICH (Bronchoalveolar Lavage-ICH) 07/02/2024 2:07 PM LOOSELEAF BINDER COVERER us Lamberto Schaefer M.D. LAB MICROBIOLOGY - GENERAL ORD ERABLES Final Result Performing Organization Address City/[facility]/ZIP Co de Phone Number [facility] [address] [place] [address] * Acid Fast Smear for Mycobacterium (07/02/2024 2:07 PM LOOSELEAF BINDER COVERER) Acid Fast Smear For Mycobacterium Negative. 07/02/2024 8:31 PM LOOSELEAF BINDER COVERER DTL Lavage-ICH (Bronchoalveolar Lavage-ICH) 07/02/2024 2:07 PM LOOSELEAF BINDER COVERER us Lamberto Schaefer M.D. LAB MICROBIOLOGY - GENERAL ORD ERABLES Final Result [facility] [address] [place] [address], [facility] [address] [place] [address] * Gram Stain (07/02/2024 2:07 PM LOOSELEAF BINDER COVERER) Only the most recent of2 resultswithin the time period is included. Gram Stain No organisms seen. White blood cells present. 07/02/2024 6:04 PM LOOSELEAF BINDER COVERER DTL Lavage-ICH (Bronchoalveolar Lavage-ICH) 07/02/2024 2:07 PM LOOSELEAF BINDER COVERER Lamberto Schaefer M.D. LAB MICROBIOLOGY - GENERAL ORD ERABLES Final Result [facility] [address] [place] [address], [facility] [address] [place] [address] * (ABNORMAL) Fungal Culture, Routine (07/02/2024 2:07 PM LOOSELEAF BINDER COVERER) Only the most recent of2 resultswithin the time period is included. Fungal Culture, Routine ASPERGILLUS FUMIGATUS COMPLEX Many (A) 07/26/2024 8:50 AM LOOSELEAF BINDER COVERER DTL Comment: Semi-Urgent Result. Susceptibility testing is not indicated for all molds. Not all molds are clinically significant. If the ordering clinician feels that the culture result is clinically significant, infectious disease consultation is required to order mold susceptibility testing. Semi-Urgent This is a semi-urgent result(STODDARD) [facility] Lavage-ICH (Bronchoalveolar Lavage-ICH) 07/02/2024 2:07 PM LOOSELEAF BINDER COVERER Lamberto Schaefer M.D. LAB MICROBIOLOGY - GENERAL ORD ERABLES Final Result [facility] [address] [place] [address], [facility] [address] [place] [address] * Surgery Image Exam-Surgery Image Exam (07/02/2024 1:45 PM LOOSELEAF BINDER COVERER) Only the most recent of2 resultswithin the time period is included. 07/02/2024 1:36 PM LOOSELEAF BINDER COVERER Narrative IIMS - 07/02/2024 2:27 PM LOOSELEAF BINDER COVERER This order has been created and auto-finalized to support the import of images acquired without order. The clinical documentation to support these images can be found on the encounter that produced images. us Provider Not In System IMG NON RAD IMAGING PROCE DURES Final Result IINV NA * (ABNORMAL) Respiratory Panel, PCR, Nasopharyngeal (07/02/2024 7:50 AM LOOSELEAF BINDER COVERER) Specimen Source NASOPHARYNGEAL SWAB 07/02/2024 10:25 AM LOOSELEAF BINDER COVERER DTL Adenovirus Undetected Undetected 07/02/2024 10:25 AM LOOSELEAF BINDER COVERER DTL Coronavirus 229E Undetected Undetected 07/02/19 10:25 AM LOOSELEAF BINDER COVERER DTL Coronavirus HKU1 Undetected Undetected 07/02/19 10:25 AM LOOSELEAF BINDER COVERER DTL Coronavirus NL63 Undetected Undetected 07/02/19 10:25 AM LOOSELEAF BINDER COVERER DTL Coronavirus OC43 Undetected Undetected 07/02/19 10:25 AM LOOSELEAF BINDER COVERER DTL SARS Coronavirus-2 Undetected Undetected 07/02/2024 10:25 AM LOOSELEAF BINDER COVERER DTL Comment: SARS-CoV-2 RNA absent. This result does not rule out COVID-19 in the patient, as the sensitivity of the test depends on the timing of the specimen collection and the quality of the specimen. Result should be correlated with patient's history and clinical presentation. Human Metapneumovirus Detected(A) Undetected 07/02/2024 10:25 AM LOOSELEAF BINDER COVERER DTL Human Rhinovirus/ Enterovirus Undetected Undetected 07/02/2024 10:25 AM LOOSELEAF BINDER COVERER DTL Influenza A Undetected Undetected 07/02/2024 10:25 AM LOOSELEAF BINDER COVERER DTL Influenza B Undetected Undetected 07/02/2024 10:25 AM LOOSELEAF BINDER COVERER DTL Parainfluenza Virus 1 Undetected Undetected 07/02/2024 10:25 AM LOOSELEAF BINDER COVERER DTL Parainfluenza Virus 2 Undetected Undetected 07/02/2024 10:25 AM LOOSELEAF BINDER COVERER DTL Parainfluenza Virus 3 Undetected Undetected 07/02/2024 10:25 AM LOOSELEAF BINDER COVERER DTL Parainfluenza Virus 4 Undetected Undetected 07/02/2024 10:25 AM LOOSELEAF BINDER COVERER DTL Respiratory Syncytial Virus Undetected Undetected 07/02/2024 10:25 AM LOOSELEAF BINDER COVERER DTL Bordetella parapertussis Undetected Undetected 07/02/2024 10:25 AM LOOSELEAF BINDER COVERER DTL Bordetella pertussis Undetected Undetected 07/02/2024 10:25 AM LOOSELEAF BINDER COVERER DTL Chlamydia pneumoniae Undetected Undetected 07/02/2024 10:25 AM LOOSELEAF BINDER COVERER DTL Mycoplasma pneumoniae Undetected Undetected 07/02/2024 10:25 AM LOOSELEAF BINDER COVERER DTL Interpretation This assay is not predicted to detect SARS-coronavirus (CoV), or MERS-CoV. If SARS-CoV or MERS-CoV is suspected, coordinate testing through a local public health laboratory. 07/02/2024 10:25 AM LOOSELEAF BINDER COVERER DTL Comment: ----ADDITIONAL INFORMATION---- This assay is performed using the FDA-Cleared FilmArray Respiratory Panel 2.1 (Invisible). Swab (Nasopharynx) 07/02/2024 7:50 AM LOOSELEAF BINDER COVERER 07/02/2024 8:45 AM LOOSELEAF BINDER COVERER Magaly Shen M.D. LAB MICROBIOLOGY - GENERAL ORDERABLES Final Result [facility] [address] [place] [address], [facility] 200 [facility] [address] [place] [address] * HIV-1/-2 Ag and Ab Screen, Plasma (07/02/2024 12:09 AM LOOSELEAF BINDER COVERER) [facility] HIV-1/-2 Ag and Ab Screen, P Negative Negative 07/02/2024 12:54 PM LOOSELEAF BINDER [address]ER [facility] Comment: Negative result does not rule out HIV infection. If exposure to HIV infection occurred <14 days ago, contact the laboratory to request addition of HIV-1/HIV-2 RNA detection, Plasma (HIP12). Blood (Blood, Venous) 07/02/2024 12:09 AM LOOSELEAF BINDER COVERER 07/02/2024 8:15 AM LOOSELEAF BINDER COVERER Georgiana Miranda M.D. LAB MICROBIOLOGY - BLOOD O RDERABLES Final Result Performing Organization Address City/[facility]/ZIP Co de Phone Number [facility] [address] [place] [address] [facility] [address] [place] [address] * Histoplasma and Blastomyces Antigen, Enzyme Immunoassay, Urine (07/01/2024 5:58 PM LOOSELEAF BINDER COVERER) Histoplasma/Blasto myces Ag Result Not Detected Not Detected 07/02/2024 11:43 [address]OOSELEAF BINDER [address] [facility] Comment: No antigen from Histoplasma or Blastomyces detected. False negative results may occur depending on extent of disease, and/or site of infection. Repeat testing on a new specimen if clinically indicated. Histoplasma/Blasto myces Ag Value Not Detected ng/mL 07/02/2024 11:43 AM LOOSELEAF BINDER [address] [facility] Comment: ----ADDITIONAL INFORMATION---- This test was developed and its performance characteristics determined by [facility] in a manner consistent with CLIA requirements. This test has not been cleared or approved by the U.S. Food and Drug Administration. Urine (Urine, Midstream) 07/01/2024 5:58 PM LOOSELEAF BINDER COVERER 07/02/2024 7:39 AM LOOSELEAF BINDER COVERER Magaly Shen M.D. LAB MICROBIOLOGY - GENERAL ORDERABLES Final Result Performing Organization Address City/[facility] Co de Phone Number [facility] [address] [place] [address] [facility] [address] [place] [address] * Streptococcus pneumoniae Antigen, Urine (07/01/2024 5:58 PM LOOSELEAF BINDER COVERER) Pathologist [facility] Streptococcus pneumoniae Ag, U Negative Negative 07/02/2024 2:15 PM [address]OOSELEAF BINDER [facility] [facility] Comment: Negative for pneumococcal pneumonia, suggesting no current or recent infection. Infection due to S. pneumoniae cannot be ruled out since the antigen present in the sample may be below detection limit of the test. ----ADDITIONAL INFORMATION---- This assay was performed using the FDA-cleared BinaxNOW Streptococcus pneumoniae Antigen test, a rapid immunochromatographic assay. Urine (Urine, Midstream) 07/01/2024 5:58 PM LOOSELEAF BINDER COVERER 07/02/2024 7:33 AM LOOSELEAF BINDER COVERER Magaly Shen M.D. LAB MICROBIOLOGY - GENERAL ORDERABLES Final Result Performing Organization Address [facility] de Phone Number [facility] [address] [place] [address] [facility] [address] [place] [address] [place] [address] * Legionella Antigen, Urine (07/01/2024 5:58 PM LOOSELEAF BINDER COVERER) Legionella Ag, U Negative Negative 07/02/19 2:32 PM LOOSELEAF BINDER [address] [facility] Comment: Negative for L. pneumophila serogroup 1 [...] This assay was performed using the FDA-cleared KeukeyaxNOW Legionella Urinary Antigen Test, a rapid immunochromatographic assay. Urine (Urine, Midstream) 07/01/2024 5:58 PM LOOSELEAF BINDER COVERER 07/02/2024 7:33 AM LOOSELEAF BINDER COVERER Magaly Shen M.D. LAB MICROBIOLOGY - GENERAL ORDERABLES Final Result Performing Organization Address [facility] de Phone Number [facility] [address] [place] [address] [facility] [address] [place] [address] [place] [address] * Aspergillus Ag (07/01/2024 12:16 PM LOOSELEAF BINDER COVERER) Pathologist [facility] Aspergillus Ag, S <0.500 <0.5 index 07/02/2024 10:04 PM [address]OOSELEAF BINDER [facility] [facility] Comment: ----ADDITIONAL INFORMATION---- This is a qualitative test and the resulted index value is not indicative of disease severity. Serial testing is recommended for patients at high risk for invasive aspergillosis. This assay was performed using the FDA-cleared Art[employer]ft-ParkWhiz Platelia Aspergillus Galactomannan EIA. Blood (Blood, Venous) 07/01/2024 12:16 PM LOOSELEAF BINDER COVERER 07/02/2024 6:03 AM LOOSELEAF BINDER COVERER Georgiana Miranda M.D. LAB MICROBIOLOGY - BLOOD O RDERABLES Final Result Performing Organization Address City/[facility]/ZIP Co de Phone Number [facility] [address] [place], [place] [address] [address] [place] [address] [place] [address] * Staph aureus / MRSA, Nasal, PCR (06/30/2024 10:07 PM LOOSELEAF BINDER COVERER) Pathologist [facility] Staphylococcus aureus, PCR Negative Negative 07/01/2024 12:12 AM LOOSELEAF BINDER COVERER DTL MRSA, PCR Negative Negative 07/01/2024 12:12 AM LOOSELEAF BINDER COVERER DTL Swab (Nares) 06/30/2024 10:0 7 PM LOOSELEAF BINDER COVERER 06/30/2024 10:53 PM LOOSELEAF BINDER COVERER Amanda Encinas M.D. LAB MICROBIOLOGY - GENE RAL ORDERABLES Final Result Performing Organization Address [facility] de Phone Number [facility] [address] [place] [address], [facility] [address] [place] [address] * Bacteria / Reji Culture, Blood #2 (06/30/2024 7:58 PM LOOSELEAF BINDER COVERER) Only the most recent of2 resultswithin the time period is included. Bacteria/Kate da Culture, Blood No growth after 5 days of incubation. 07/05/2024 9:02 PM LOOSELEAF BINDER COVERER DTL Blood (Blood, Peripheral Draw) 06/30/2024 7:58 PM LOOSELEAF BINDER COVERER 06/30/2024 9:00 PM LOOSELEAF BINDER COVERER Comment:Specimen Source Site : Blood Narrative [facility] - 07/05/2024 9:02 PM LOOSELEAF BINDER COVERER Received Bactec aerobic and Bactec anaerobic bottles Magaly Shen M.D. LAB MICROBIOLOGY - GENERAL ORDERABLES Final Result Performing Organization Address City/[facility]/ZIP Co de Phone Number [facility] [address] [place] [address], [place] DTL [facility] [address] [place] [address] * Histoplasma Antibody Complement Fixation and Immunodiffusion (06/30/2024 7:50 PM LOOSELEAF BINDER COVERER) Pathologist [facility] Histoplasma Yeast CompFix, S Negative Negative 07/04/2024 1:52 PM LOOSELEAF BINDER COVERER [facility] Histoplasma Immunodiffusion, S Negative Negative 07/04/2024 1:52 PM LOOSELEAF BINDER COVERER [facility] Comment: A negative complement fixation and immunodiffusion (CF/ID) result does not exclude the diagnosis of histoplasmosis. Repeat testing by CF/ID in 1-2 weeks if clinically indicated. Blood (Blood, Venous) 06/30/2024 7:50 PM LOOSELEAF BINDER COVERER 07/01/2024 9:10 AM LOOSELEAF BINDER COVERER Magaly Shen M.D. LAB BLOOD ADD-ON Final Resu lt [facility] [address] [place] [address] [facility] [address] [place] [address] [place] [address] * (ABNORMAL) (1, 3) Wdug-J-Ufsucl (Fungitell), Serum (06/30/2024 7:50 PM LOOSELEAF BINDER COVERER) Pathologist [facility] (1, 3) Ymcj-M-Eelyyl, Quantitative >500(A) <60 pg/mL pg/mL 07/02/2024 2:44 PM LOOSELEAF BINDER COVERER [facility] (1, 3) Bxjd-B-Eszitk, Qualitative Positive( A) Negative 07/02/2024 2:44 PM LOOSELEAF BINDER COVERER [facility] Comment: (1, 3) Rvnx-M-Mrescg detected. A single positive result should be [...] produce very low levels of (1, 3) Kqib-C-Xjtjrh (BDG) and the Mucorales (e.g., Lichthemia, Mucor and Rhizopus), which are not known to produce BDG. Additionally, the yeast phase of Blastomyces dermatitidis produces little BDG and may not be detected by this assay. ----ADDITIONAL INFORMATION---- This assay was performed using the FDA-cleared Fungitell Assay ([place], [place], [place]), a kinetic OANH based on modification of the Limulus Amebocyte Lysate pathway. Blood (Blood, Venous) 06/30/2024 7:50 PM LOOSELEAF BINDER COVERER 07/01/2024 9:12 AM LOOSELEAF BINDER COVERER Magaly Shen M.D. LAB MICROBIOLOGY - BLOOD OR DERABLES Final Result [facility] [address] [place] [address] [facility] [address] [place] [address] [place] [address] * (ABNORMAL) Renal Function Panel (06/30/2024 7:50 PM LOOSELEAF BINDER COVERER) Pathologist [facility] Potassium, S 4.5 3.6 - 5.2 mmol/L 06/30/2024 9:01 PM LOOSELEAF BINDER COVERER DTL Sodium, S 132(L) 135 - 145 mmol/L 06/30/2024 9:01 PM LOOSELEAF BINDER COVERER DTL Chloride, S 99 98 - 107 mmol/L 06/30/2024 9:01 PM LOOSELEAF BINDER COVERER DTL Bicarbonate, S 22 22 - 29 mmol/L 06/30/2024 9:01 PM LOOSELEAF BINDER COVERER DTL Anion Gap 11 7 - 15 06/30/2024 9:01 PM LOOSELEAF BINDER COVERER DTL BUN (Blood Urea Nitrogen), S 29(H) 8 - 24 mg/dL 06/30/2024 9:01 PM LOOSELEAF BINDER COVERER DTL Creatinine 0.97 0.74 - 1.35 mg/dL 06/30/2024 9:01 PM LOOSELEAF BINDER COVERER DTL Estimated GFR (eGFR) 80 >=60 mL/min/BSA 06/30/2024 9:01 PM LOOSELEAF BINDER COVERER [facility]TL Comment: Estimated GFR calculated using the 2020 CKD_EPI creatinine equation. Calcium, Total, S 8.2(L) 8.8 - 10.2 mg/dL 06/30/2024 9:01 PM LOOSELEAF BINDER COVERER DTL Glucose, S 122 70 - 140 mg/dL 06/30/2024 9:01 PM LOOSELEAF BINDER COVERER DTL Albumin, S 3.3(L) 3.5 - 5.0 g/dL 06/30/2024 9:01 PM LOOSELEAF BINDER COVERER DTL Phosphorus (Inorganic), S 3.6 2.5 - 4.5 mg/dL 06/30/2024 9:01 PM LOOSELEAF BINDER COVERER DTL Blood (Blood, Venous) 06/30/2024 7:50 PM LOOSELEAF BINDER COVERER 06/30/2024 8:46 PM LOOSELEAF BINDER COVERER Magaly Shen M.D. LAB BLOOD ADD-ON Final Resu lt [place] [address] [place] [address], [place] [address] * Blastomyces Ab, EIA (06/30/2024 7:49 PM LOOSELEAF BINDER COVERER) Blastomyces Ab, EIA, S Negative Negative 07/02/2024 7:53 [address]OOSELEAF BINDER COVERER [facility] Comment: A single negative result does not exclude the diagnosis of blastomycosis. Repeat testing on a new sample in 7-14 days if clinically indicated. Blood (Blood, Venous) 06/30/2024 7:49 PM LOOSELEAF BINDER COVERER 07/01/2024 8:34 AM LOOSELEAF BINDER COVERER Magaly Shen M.D. LAB MICROBIOLOGY - BLOOD OR DERABLES Final Result [facility] [address] [place] [address] [facility] [address] [place] [address] * Coccidioides Ab Screen w/Reflex, Serum (06/30/2024 7:49 PM LOOSELEAF BINDER COVERER) Coccidioides Ab Screen, S Negative Negative 07/02/2024 8:51 PM LOOSELEAF BINDER COVERER [facility] Comment: Repeat testing on a new sample in 2-3 weeks if clinically indicated. ----ADDITIONAL INFORMATION---- This test has been modified from the radioisotope technician's instructions. Its performance characteristics were determined by [facility] in a manner consistent with CLIA requirements. This test has not been cleared or approved by the U.S. Food and Drug Administration. Blood (Blood, Venous) 06/30/2024 7:49 PM LOOSELEAF BINDER COVERER 07/01/2024 8:34 AM LOOSELEAF BINDER COVERER Magaly Shen M.D. LAB MICROBIOLOGY - BLOOD OR DERABLES Final Result [facility] [address] [place] [address] [facility] [address] [place] [address] * Interpretation of Outside CT Chest (06/30/2024 7:04 PM LOOSELEAF BINDER COVERER) Anatomical Region Laterality Modality Chest, Thoracic RST LOS, Tho racic ARZ LOS, Thoracic FLA LOS, Other, Body N/A Computed Tomography Impressions 06/30/2024 8:48 PM LOOSELEAF BINDER COVERER 1. No acute pulmonary embolism. 2. Interval significant worsening of the pulmonary opacities, suggestive of infectious process including fungal infection. 3. Enlarged lower cervical, mediastinal, hilar, abdominal conglomerated lymph nodes concerning for lymphoproliferative disease. Narrative 06/30/2024 8:48 PM LOOSELEAF BINDER COVERER EXAM: INTERPRETATION OF OUTSIDE CT CHEST CT [...] abdominal conglomeratedlymph nodes concerning for lymphoproliferative disease. Magaly Shen M.D. IMG CT PROCEDURES Final Res ult from Last [address] [facility] Advance Directives For more information, please contact: [phone] * Full Code (Latest Code Status on [...] Answer Comments Full Code: Discussed Care Teams Spring Inspector Relationship Specialty Start Date End Date Elsewhere, Pcp PCP - General Fixer Supervisor 06/27/19
--- OUTSIDE RECORDS SUMMARY | 2024-09-18 11:28 | XMS_ITS ---
Author Organization [facility] Address [address] [place] [address] Care Team Providers Care Lead Embedded Software Engineer Name Role Phone Elsewhere, Pcp Primary Care Provider Unavailabl e Adult OPAT Service Episode Status:Enrolled (Active) Start date:07/04/2024 Enrollment date:07/07/2024 Related program episode:OPAT/COpAT Program (Active) Continued Care and Services Coordination
--- OUTSIDE RECORDS SUMMARY | 2024-09-18 11:28 | XMS_ITS ---
Author Organization [facility] Address [address] [place] [address] Care Team Providers Care Appraisal Coordinator Name Role Phone Elsewhere, Pcp Primary [...] Date Treatment Medications Discontinue Reason Plan Provider immune globulin (IVIG) 09/14/2024 09/13/2024 No medications scheduled. Unlisted Taniya Garzon, CARLOTTA, P.A.-C., P.A. TIXAGEVIMAB-CILGAV IMAB ([facility]UCAS) - EMERGENCY USE AUTHORIZATION 08/23/2021 08/31/2021 No medications scheduled. Therapy Complete Fermin Lloyd M.B.B.S.
--- OUTSIDE RECORDS SUMMARY | 2024-09-18 11:28 | XMS_ITS | Encounter Summary ---
Author Organization [facility] Address [address] [place] [address] Care Team Providers Care Continuous Improvement Facilitator Name Role Phone Elsewhere, Pcp Primary Care Provider Unavailabl e Encounter Details Date Type Department Care Team (Latest Contact Info) Description 06/30/2024 Intake [facility] Social History Tobacco Use Types Packs/Day Years Used Date Smoking Tobacco: Never Smokeless Tobacco: Never Alcohol Use Standard Drinks/Week Comments Never 0 (1 standard drink = 0.6 oz pur e alcohol) [facility] Utilities Answer Date Recorded In [...] How often do you attend episcopalian or cheondoism serv ices? Never 06/30/2021 Do [...] your living situation today? I have a [facility] place to live 07/01/2024 Education Answer Date Recorded What is the highest level of school you have completed or the highest degree you have received? Professional school degree (e.g., MD, DDS, DVM, GRACIELA) 06/30/2021 Sex and Gender Information Value Date Recorded Sex Assigned at Male 06/30/2021 12:19 PM NET SOFTWARE DEVELOPER Legal Sex Male 7:31 AM CDT Gender Identity Male 06/30/2021 12:19 PM NET SOFTWARE DEVELOPER Sexual Orientation Straight 06/30/2021 12 :19 PM NET SOFTWARE DEVELOPER documented as of this encounter Progress Notes * Enoch Stacy, M.S.W., L.I.C.S.W. - 06/30/2024 11:21 AM CST [facility]: ATC referral SUBJECTIVE Referral received from Admissions and Transfer Center on 06/30/24, as part of hospital transfer request from [facility], (phone: [phone], fax: [phone]). OBJECTIVE This patient was not accepted for transfer prior to the assessment process. This is a 78 y.o. year old male from [address] [place] [phone]. The patient was admitted to their facility [...] this information to the family. Chance Hudson, Maximo.PatC.S.W. 06/30/2024 SOFTWARE DEVELOPER documented in this encounter Plan of Treatment Upcoming Encounters Date Type Department Care Team (Late st Contact Info) Description 09/24/2024 7:45 AM CDT Appointment Department of Radiology, [facility], in [place], [place] [address] [place] [phone] Julio Soto M.D. [address] [place] [phone] 09/24/2024 9:30 AM CDT Diagnostic Division of Pulmonary Medicine in [place], [place] [address] [place] [phone] Marilu Castaneda P.A.-C., M.S. [address] [place] [phone] 09/24/2024 10:40 AM CDT Appointment Department of Laboratory Medicine and Pathology, [facility], in [place], [place] [address] [place] [phone] Marilu Castaneda P.A.-C., M.S. [address] [place] [phone] 09/24/2024 2:30 PM CDT Office Visit Section of Infectious Diseases in [place], [place] [address] [place] [phone] Julio Soto M.D. [address] [place] [phone] documented as of this encounter Visit Diagnoses Not on filedocumented in this encounter Additional Health Concerns Infection Onset Date Last Indicated Resolved Time Protective Environment 09/20/2022 09/20/202208/30 5:23 AM CDT COVID19 Pending 06/30/2024 07/01/2024 07/01/2024 5 :47 PM NET SOFTWARE DEVELOPER COVID19 Pending 07/01/2024 07/02/2024 07/02/2024 1 0:25 AM NET SOFTWARE DEVELOPER Human metapneumovirus 07/02/2024 07/02/20242024 6:10 AM NET SOFTWARE DEVELOPER COVID19 Pending 07/02/2024 07/02/2024 07/02/2024 1 1:47 PM NET SOFTWARE DEVELOPER Assessment Noted Time PHQ-9 Depression Total Score: 6 07/17/19 20 10:26 AM NET SOFTWARE DEVELOPER documented as of this encounter Care Teams Continuous Improvement Facilitator Relationship Specialty Start Date End Date Elsewhere, Pcp PCP - General Paper Cup Handle Machine Operator 06/27/19 documented as of this encounter
--- OUTSIDE RECORDS SUMMARY | 2024-09-18 11:28 | XMS_ITS | Encounter Summary ---
Author Organization [facility] Address [address] [place] [address] Care Team Providers Care Funeral Home Associate Name Role Phone Elsewhere, Pcp Primary Care Provider Unavailabl e Encounter Details Date Type Department Care Team (Late st Contact Info) Description 09/04/2024 Orders Only Section of Infectious Diseases in [place], [place] [address] [place] [phone] External, Ordering ProviderAnnemarie Social History Tobacco Use Types Packs/Day Years Used Date Smoking Tobacco: Never Smokeless Tobacco: Never Alcohol Use Standard Drinks/Week Comments Never 0 (1 standard drink = 0.6 oz pur e alcohol) [facility] Utilities Answer Date Recorded In the past 12 months has e [employer], gas, oil, or water [employer] threatened to shut off services in your [...] How often do you attend druze or muslim serv ices? Never 06/30/2021 Do [...] and heating? Not hard at all 06/30/2021 [facility] of Occupat ional Health - Occupational Stress [...] your living situation today? I have a [facility] place to live 07/19/2024 Education Answer Date Recorded What is the highest level of school you have completed or the highest degree you have received? Professional school degree (e.g., MD, DDS, DVM, GRACIELA) 06/30/2021 Sex and Gender Information Value Date Recorded Sex Assigned at Male 06/30/2021 12:19 PM COOLER WORKER Legal Sex Male 7:31 AM CDT Gender Identity Male 06/30/2021 12:19 PM COOLER WORKER Sexual Orientation Straight 06/30/2021 12 :19 PM COOLER WORKER documented as of this encounter Functional Status [...] CDT Appointment Department of Radiology, [facility] in [place], [place] [address] [place] [phone] Julio Soto M.D. [address] [place] [phone] 09/24/2024 9:30 AM CDT Diagnostic Division of Pulmonary Medicine in [place], [place] [address] [place] [phone] Marilu Castaneda P.A.-C., M.S. [address] [place] [phone] 09/24/2024 10:40 AM CDT Appointment Department of Laboratory Medicine and Pathology, [facility] in [place], [place] [address] [place] [phone] Marilu Castaneda P.A.-C., M.S. [address] [place] [phone] 09/24/2024 2:30 PM CDT Office Visit Section of Infectious Diseases in [place], [place] [address] [place] [phone] Julio Soto M.D. [address] [place] [phone] documented as of this encounter Procedures Procedure Name Priority Date/Time Associated Diagnosis Comments ALANINE AMINOTRANSFERASE (ALT), S/P Routine 09/04/2024 10:35 AM CDT POTASSIUM, S/P Routine 09/04/2024 10:35 AM CDT ALKALINE PHOSPHATASE, S/P Routine 09/04/2024 10:35 AM CDT documented in this encounter Results * (ABNORMAL) Alkaline Phosphatase (09/04/2024 10:35 AM CDT) EXT Alkaline Phosphatase 154(H) 40 - 150 U/L [facility] 09/04/2024 10:3 5 AM CDT Narrative [facility] - 09/04/2024 3:00 PM CDT Source result document attached to Order Number [id number] ([id number]) dated 09/04/2024. External results verified in Extract by Jazmín Bean on 09/04/2024 at 02:59 PM. us Ordering Provider External M.DBuddy LAB BLOOD ADD-ON Final Result Vinny [facility] [address] [phone] * Potassium (09/04/2024 10:35 AM CDT) EXT Potassium 3.9 3.6 - 5.1 mmol/L [facility] 09/04/2024 10:3 5 AM CDT Narrative Vinny [facility] - 09/04/2024 3:00 PM CDT Source result document attached to Order Number [id number] ([id number]) dated 09/04/2024. External results verified in Extract by Jazmín Bean on 09/04/2024 at 02:59 PM. us Ordering Provider External MBony LAB BLOOD ADD-ON Final Result Performing Organization Address City/[facility]/ZIP Co de Phone Number [facility] [address] [id number] [phone] * (ABNORMAL) ALT (Alanine Aminotransferase) (09/04/2024 10:35 AM CDT) EXT ALT 61(H) 4 - 50 U/L [facility] 09/04/2024 10:3 5 AM CDT Narrative [facility] - 09/04/2024 3:00 PM CDT External results verified in Extract by Jazmín Bean on 09/04/2024 at 02:59 PM. us Ordering Provider External Annemarie LAB BLOOD ADD-ON Final Result Performing Organization Address [facility] Co de Phone Number [facility] [address] [phone] documented in this encounter Visit Diagnoses Not on filedocumented in this encounter Additional Health Concerns Assessment Noted Time PHQ-9 Depression Total Score: 6 07/17/19 20 10:26 AM COOLER WORKER documented as of this encounter Care Teams Funeral Home Associate Relationship Specialty Start Date End Date Elsewhere, Pcp PCP - General Backend Java Developer 06/27/19 documented as of this encounter
--- OUTSIDE RECORDS SUMMARY | 2024-09-18 11:28 | XMS_ITS ---
Author Organization [facility] Address [address] [place] [address] Care Team Providers Care Transcribing Operator Head Name Role Phone Elsewhere, Pcp Primary Care Provider Unavailabl e OPAT/COpAT Program Status:Enrolled (Active) Start date:07/04/2024 Enrollment date:07/07/2024 Related service episodes:Adult OPAT Service Episode (Active) Continued Care and Services Coordination
--- OUTSIDE RECORDS SUMMARY | 2024-09-18 11:29 | XMS_ITS | Encounter Summary ---
Author Organization [facility] Address [address] [place] [address] Care Team Providers Care Instructor Creeler Name Role Phone Elsewhere, Pcp Primary Care Provider Unavailabl e Encounter Details Date Type Department Care Team (Late st Contact Info) Description 08/21/2024 Orders Only Department of Oncology in [place], [place] [address] [place] [address] Birdie Hurtado M.D. [address] [place] [phone] Social History Tobacco Use Types Packs/Day Years Used Date Smoking Tobacco: Never Smokeless Tobacco: Never Alcohol Use Standard Drinks/Week Comments Never 0 (1 standard drink = 0.6 oz pur e alcohol) [facility] Utilities Answer Date Recorded In the past 12 months has [facility] [employer], gas, oil, or water [employer] threatened to shut off services in your [...] How often do you attend gnosticist or gnosticist serv ices? Never 06/30/2021 Do you belong [...] and heating? Not hard at all 06/30/2021 [facility] of Occupat ional Health - Occupational Stress [...] your living situation today? I have a [facility] place to live 07/19/2024 Education Answer Date Recorded What is the highest level of school you have completed or the highest degree you have received? Professional school degree (e.g., MD, DDS, DVM, GRACIELA) 06/30/2021 Sex and Gender Information Value Date Recorded Sex Assigned at Male 06/30/2021 12:19 PM ANESTHESIOLOGIST/PHYSICIAN Legal Sex Male 7:31 AM CDT Gender Identity Male 06/30/2021 12:19 PM ANESTHESIOLOGIST/PHYSICIAN Sexual Orientation Straight 06/30/2021 12 :19 PM ANESTHESIOLOGIST/PHYSICIAN documented as of this encounter Functional Status [...] CDT Appointment Department of Radiology, [facility] in [place], [place] [address] [place] [phone] Julio Soto M.D. [address] [place] [phone] 09/24/2024 9:30 AM CDT Diagnostic Division of Pulmonary Medicine in [place], [place] [address] [place] [phone] Marilu Castaneda P.A.-C., M.S. [address] [place] [phone] 09/24/2024 10:40 AM CDT Appointment Department of Laboratory Medicine and Pathology, [facility] in [place], [place] [address] [place] [phone] Marilu Castaneda P.A.-C., M.S. [address] [place] [phone] 09/24/2024 2:30 PM CDT Office Visit Section of Infectious Diseases in [place], [place] [address] [place] [phone] Julio Soto M.D. [address] [place] [phone] documented as of this encounter Visit Diagnoses Not on filedocumented in this encounter Additional Health Concerns Infection Onset Date Last Indicated Resolved Time Protective Environment 09/20/2022 09/20/202208/30 5:23 AM CDT Assessment Noted Time PHQ-9 Depression Total Score: 6 07/17/19 20 10:26 AM ANESTHESIOLOGIST/PHYSICIAN documented as of this encounter Care Teams Instructor Creeler Relationship Specialty Start Date End Date Elsewhere, Pcp PCP - General It Technician 06/27/19 documented as of this encounter
--- OUTSIDE RECORDS SUMMARY | 2024-09-18 11:29 | XMS_ITS | Clinical Summary ---
Author Organization [facility] Address [address] [place] [address] Care Team Providers Care Casting House Laborer Name Role Phone Nikki Reilly DO Primary Care Provider [phone] Allergies Active Allergy Reactions Criticality Noted Date [...] two times daily. 90 Tablet 3 07/16/19 25 Active Additional Information Patient taking differently: 50 [...] monitoring, INR range 2-3 Take by mouth 7.5 mg (5 mg x 1.5) every day in the evening OR as directed 09/13/19 25 Active warfarin (COUMADIN) 5 mg tabletIndications :Longstanding persistent atrial fibrillation (HC),Anticoagulat ion monitoring, INR range 2-3 Take by mouth 10 mg (5 mg x 2) every Tue, Tue; 7.5 mg (5 mg x 1.5) all other days in the evening OR as directed 08/19/19 25 025 Discontinue d(Medicatio n therapy change per hospital protocol (E-cancel not sent)) warfarin 5 mg tabletIndications :Longstanding persistent atrial fibrillation (HC),Anticoagulat ion monitoring, INR range 2-3 Take by mouth 10 mg (5 mg x 2) every Mon, Fri; 7.5 mg (5 mg x 1.5) all other days in the evening OR as directed 08/23/19 25 025 Discontinue d(Other - add note to specify (E-cancel not sent)) Active Problems Problem Noted [...] Encounters Date Type Department Care Team Description 09/12/2024 Anticoagulation (warfarin) [facility] [address] [place] [address] 1, [facility] Anticoagulation 09/12/2024 Orders Only [facility] [address] [place] [address] Nikki Reilly, 1 scan: (1-Ord) [facility], INR, 09/11/2024 09/11/2024 Orders Only [facility] Scanner 1 scan: (1-Ord) [facility] CT ANGIO CHEST PE PROTOCOL, 09/11/2024 09/11/2024 Orders Only [facility] Scanner 1 scan: (1-Ord) [facility], CHEST 2VIEWS, 09/11/2024 09/05/2024 Anticoagulation (warfarin) [facility] [address] [place] [address] 1, [facility] Anticoagulation 09/04/2024 Orders Only [facility] Scanner 1 scan: (1-Ord) [facility], INR RESULTS, 09/04/2024 08/29/2024 Anticoagulation (warfarin) [facility] [address] [place] [address] 1, [facility] Anticoagulation 08/29/2024 Orders Only [facility] [address] [place] [address] Erma Trejo, [facility] 1 scan: (1-Ord) [facility], INR, 2024 08/22/2024 Anticoagulation (warfarin) [facility] [address] [facility] [address] 1, [facility] Anticoagulation (Outside Lab) 08/21/2024 Orders Only [facility] Scanner 1 scan: (1-Ord) [facility], INR, 08/21/2024 08/20/2024 9:30 PM CDT Procedure Only [facility] [address] [facility] [place] [address] Noah Clements MD 08/20/2024 Telephone [facility] [address] [place] [address] Nikki Reilly, DO Results (Lab results /) 08/18/2024 Anticoagulation (warfarin) [facility] [address] [facility] [place] [address] 1, [facility] Anticoagulation 08/17/2024 1:30 PM CDT Orders Only [facility] [address] [place] [address] Lab, [facility] 08/17/2024 Travel 08/13/2024 Anticoagulation (warfarin) [facility] [address] [facility] [place] [address] 1, [facility] Anticoagulation (Outside Lab) 08/11/2024 Telephone [facility] [address] [facility] [place] [address] Nikki Reilly, DO Anticoagulation (INR Result) 08/10/2024 Orders Only [facility] Scanner 1 scan: (1-Ord) [place], INR, 08/10/2024 08/08/2024 Anticoagulation (warfarin) [facility] [address] [facility] [place] [address] 1, [facility] Anticoagulation (Outside lab) 08/07/2024 Orders Only [facility] Scanner 1 scan: (1-Ord) [facility], INR RESULTS, 08/07/2024 08/02/2024 Orders Only [facility] Scanner 1 scan: (1-Ord) [facility], INR, 08/02/2024 08/02/2024 Anticoagulation (warfarin) [facility] [address] [place] [address] 1, [facility] Anticoagulation (Outside Lab) 08/02/2024 Telephone [facility] [address] Nikki Reilly DO Anticoagulation (Lab order fax request. ) 08/01/2024 3:30 PM MOLDER HELPER Office Visit [facility] [address] Noah Clements MD Sleep Consult 08/01/2024 Travel 07/31/2024 Orders Only [facility] [place] [address] Nikki Reilly DO 1 scan: (1-Ord) [facility]-EKG-2.24.25 07/30/2024 12:50 PM MOLDER HELPER Office Visit [facility] [place] Jonah Freddy [facility] [place] [address] Nikki Reilly DO Hospital F/U (DOD 07/29 from [facility] ) 07/30/2024 Anticoagulation (warfarin) [facility] [place] [facility] [place] [address] 1, [facility] Anticoagulation (OV (Initial ED) ) 07/30/2024 Telephone [facility] [place] [facility] [place] [address] Nikki Reilly DO Anticoagulation (Standing lab orders ) 07/30/2024 Refill [facility] [place] [facility] [address] Nikki Reilly DO Refill Request (posaconazole (NOXAFIL) 100 mg delayed release tablet/) 07/30/2024 Travel 07/19/2024 8:30 AM MOLDER HELPER Nurse/Clinic Staff [address] [facility] [place] [address] Testing (HST Download ) 07/18/2024 2:15 PM MOLDER HELPER Nurse/Clinic Staff Only [address] [facility] [address] Testing (HST setup) 07/18/2024 Procedure [place] [address] [place] [address] Noah Clements MD Results (HST) 07/18/2024 Travel 07/16/2024 11:15 AM MOLDER HELPER Ancillary Procedure [facility] [address] [facility] [address] 07/16/2024 8:05 AM MOLDER HELPER Office Visit [facility] [address] [facility] [address] Nikki Reilly DO [facility] F/U (06/30/24 - 07/07/2024 [facility] - Pneumonia ) 07/16/2024 Travel 07/10/2024 Refill [facility] [address] [facility] [address] Nikki Reilly DO Refill Request (Tamsulosin) 06/30/2024 Orders Only [facility] Scanner 1 scan: (1-Ord) [facility], CT CHEST W CON, 06/30/2024 06/28/2024 Orders Only [facility] Scanner 1 scan: (1-Ord) [facility], CT CHEST W CON, 06/28/2024 06/26/2024 1:40 PM MOLDER HELPER Office Visit [facility] [place] [address] Nikki Reilly DO [facility] F/U (Pneumonitis - 06/12-06/18 - reaction from Keytruda? ); Mouth/Lip Problem (Possible oral thrush? ) 06/26/2024 Travel 06/21/2024 Orders Only [facility] Scanner 1 scan: (1-Ord) [place], CHEST W, 06/21/2024 from Last 3 Months Immunizations Immunization Administration [...] on file Legal Sex Male 7:17 AM MOLDER HELPER Gender Identity Not on file Sexual Orientation Not on file Obstetrics History Last Filed Vital Signs Vital Sign Reading Time Taken Comments Blood Pressure 143/75 08/01/2024 3:29 PM MOLDER HELPER Pulse 71 08/01/2024 3:29 PM MOLDER HELPER Temperature 36.9 C (98.4 F) 04/23/2020 11:09 AM MOLDER HELPER Respiratory Rate 16 03/20/2020 2:20 PM CDT Oxygen Saturation 95% 08/01/2024 3:29 PM MOLDER HELPER Inhaled Oxygen Concentration - - Weight 69.9 kg (154 lb) 08/01/2024 3:29 PM MOLDER HELPER Height 175.2 cm (5' 8.98) 08/01/2024 3:29 PM CS T Body Mass Index 22.76 08/01/2024 3:29 PM MOLDER HELPER Plan of Treatment Upcoming Encounters Date Type Department Care Team (Late st Contact Info) Description 09/26/2024 2:00 PM CDT Office Visit [facility] [address] [place] [address] Noah Clements MD [address] [place] [address] Health Maintenance Due Date Last Done Comments [...] Procedure Name Priority Date/Time Associated Diagnosis Comments INR,POCT Routine 09/11/2024 INR,POCT Routine 09/11/2024 12:00 AM CDT Longstanding persistent atrial fibrillation (HC) Anticoagulation monitoring, INR range 2-3 SCAN-CT INTERPRETATION 12:00 AM CDT SCAN-RADIOLOGY REPORT 09/11/2024 12:00 AM CDT SCAN-LABORATORY REPORT 12:00 AM CDT INR,POCT Routine [...] range 2-3 INR,POCT Routine 08/10/2024 SCAN-LABORATORY REPORT 12:00 AM MOLDER HELPER INR,POCT Routine 08/07/2024 SCAN-LABORATORY REPORT 12:00 AM MOLDER HELPER SCAN-LABORATORY REPORT 12:00 AM MOLDER HELPER INR,POCT Routine 08/02/2024 EKG 12 LEAD Routine 07/31/2024 4:12 PM MOLDER HELPER Aspergillus (HC) Medication management [place] READING EKG - NO CHARGE, COMP ONLY Routine 07/31/2024 4:11 PM MOLDER HELPER Aspergillus (HC) Medication management CBC WITH AUTO DIFFERENTIAL Routine 07/30/2024 2:04 PM MOLDER HELPER Aspergillus (HC) Medication management COMP METABOLIC PANEL Routine 07/30/2024 2:04 PM MOLDER HELPER Aspergillus (HC) Medication management AMIODARONE (CORDARONE) Routine 2:02 PM MOLDER HELPER Aspergillus (HC) Medication management PROTIME-INR Routine 07/30/2024 2:01 PM MOLDER HELPER Longstanding persistent atrial fibrillation (HC) HOME SLEEP TEST TYPE 3 PORTABLE Routine 07/18/2024 11:59 PM MOLDER HELPER Suspected sleep apnea US VENOUS LOWER EXTREMITY RIGHT STAT 07/16/2024 9:34 AM MOLDER HELPER Edema of right lower extremity FERRITIN Routine 07/16/2024 9:08 AM MOLDER HELPER Normocytic anemia IRON PLUS IRON BINDING CAP Routine 07/16/2024 9:08 AM MOLDER HELPER Normocytic anemia VITAMIN B12 Routine 07/16/2024 9:08 AM MOLDER HELPER Normocytic anemia FOLIC ACID Routine 07/16/2024 9:08 AM MOLDER HELPER Normocytic anemia HEMOGLOBIN Routine 07/16/2024 9:08 AM MOLDER HELPER Normocytic anemia SCAN-CT INTERPRETATION 5 12:00 AM MOLDER HELPER SCAN-CT INTERPRETATION 5 12:00 AM MOLDER HELPER SCAN-CT INTERPRETATION 5 12:00 AM MOLDER HELPER ANTI HCV Routine 03/09/2018 10:39 AM CDT Need for hepatitis C screening test from Last 3 Months or Most Recently Relevant to Health Maintenance Results * SCAN-RADIOLOGY REPORT (09/11/2024 12:00 AM CDT) Anatomical Region Laterality Modality Other us Scanner OTHER Final Result * SCAN-CT INTERPRETATION (09/11/2024 12:00 AM CDT) Only the most recent of4 resultswithin the time period is included. Anatomical Region Laterality Modality Other us Scanner OTHER Final Result * (ABNORMAL) INR,POCT (09/11/2024) Only the most recent of8 resultswithin the time period is included. INR 3.1(A) 0.9 - 1.1 [facility] Blood BLOOD SPECIMEN / Unknown 09/11/2024 us Nikki Reilly DO LABORATORY Final Result [facility] [address] [place] [address], [place] [phone] * SCAN-LABORATORY REPORT (09/04/2024 12:00 AM CDT) Only the most recent of5 resultswithin the time period is included. us Scanner OTHER Final Result * (ABNORMAL) AMIODARONE (CORDARONE) (08/17/2024 1:27 PM CDT) Only the most recent of2 resultswithin the time period is included. AMIODARONE 1.2(L) 1.5 - 2.5 mcg/mL [employer] DESETHYLAMIODARONE 0.4(L) 1.5 - 2.5 mcg/mL [employer]/ [facility] [place] Comment: TOXIC: >2.5 Toxic effects have been observed at levels as low as 2.0 mcg/mL. This test was developed and its analytical performance characteristics have been determined by [employer] [place], [place]. It has not been cleared or approved by the U.S. Food and Drug Administration. This assay has been validated pursuant to the CLIA regulations and is used for clinical purposes. Blood BLOOD SPECIMEN / Unknown 08/17/2024 1:27 PM CDT 08/17/2024 1:28 PM CDT Nikki Reilly DO SEND OUTS Final Result [employer] [place] [address] [place], [place] , [employer]/[facility] [address] [place], [place] * (ABNORMAL) PROTIME-INR [94775.0] - Standing Order (08/17/2024 1:26 PM CDT) Only the most recent of2 resultswithin the time period is included. INR 3.4(H) <1.3 08/17/2024 10:17 PM CDT [facility] PROTIME 39.3(H) 10.6 - 12.4 sec 08/17/2024 10:17 PM CDT [facility] Blood BLOOD SPECIMEN / Unknown [facility] / Unknown 08/17/2024 1:26 PM CDT 08/17/2024 1:26 PM CDT Narrative [facility] - 08/17/2024 10:17 PM CDT [...] the patient is on UFH. us Adei Venkatqra DO HEMATOLOGY Final Result [facility] [address] [place] [address], * EKG 12 LEAD (07/31/2024 4:12 PM MOLDER HELPER) us Adei Shaqra DO EKG ORD Final Result * [place] READING EKG - NO CHARGE, COMP ONLY (07/31/2024 4:11 PM MOLDER HELPER) [employer] DO PB - PROVIDER READINGS Final Res ult * (ABNORMAL) CBC AND DIFFERENTIAL (07/30/2024 2:04 PM MOLDER HELPER) WHITE BLOOD CELL COUNT 43.6(H) 3.8 - [...] BLOOD SPECIMEN / Unknown 07/30/2024 2:04 PM MOLDER HELPER 07/30/2024 2:05 PM MOLDER HELPER us Nikki Reilly DO HEMATOLOGY Final Result [facility] [address] [place] [address], [facility] [address] [place] [address] * (ABNORMAL) COMP METABOLIC PANEL (07/30/2024 2:04 PM MOLDER HELPER) [facility] GLUCOSE 104(H) 65 - 99 mg/dL [facility] Comment: Fasting reference interval For someone without known diabetes, a glucose value between 100 and 125 mg/dL is consistent with prediabetes and should be confirmed with a follow-up test. UREA NITROGEN (BUN) 25 7 - 25 mg/dL [facility] CREATININE 1.05 0.70 - 1.28 mg/dL [facility] EGFR 73 > OR = 60 mL/min/1. 73m2 [facility] BUN/CREATININE RATIO SEE NOTE: 6 - 22 (calc) [facility] Comment: Not Reported: BUN and Creatinine are within reference range. SODIUM 136 135 - 146 mmol/L [facility] POTASSIUM 4.6 3.5 - 5.3 mmol/L [facility] CHLORIDE 104 98 - 110 mmol/L [facility] CARBON DIOXIDE 21 20 - 32 mmol/L [facility] CALCIUM 8.7 8.6 - 10.3 mg/dL [facility] PROTEIN, TOTAL 5.4(L) 6.1 - 8.1 g/dL [facility] ALBUMIN 3.7 3.6 - 5.1 g/dL [facility] GLOBULIN 1.7(L) 1.9 - 3.7 [...] BLOOD SPECIMEN / Unknown 07/30/2024 2:04 PM MOLDER HELPER 07/30/2024 2:05 PM MOLDER HELPER us Angelai Melba DO CHEMISTRY Final Result [employer] [facility] [address] [place] [address], [facility] [address] [place] [address] * HOME SLEEP TEST TYPE 3 PORTABLE (07/18/2024 11:59 PM MOLDER HELPER) Noah Ojeda MD - 07/18/2024 11:59 PM MOLDER HELPER Noah Clements MD 07/21/2024 4:43 PM Home Sleep Test Name: hCad Jensen Location: [facility] notes: This is a single night home [...] and interpreted by a Diplomate of the [employer] [employer]. Raw summary data [...] % Duration > 100 bpm: 183.7 m [facility] Final Result * US VENOUS LOWER EXTREMITY RIGHT (07/16/2024 9:34 AM MOLDER HELPER) Anatomical Region Laterality Modality LEGS, LEG R, Abdomen Ultrasound 07/16/2024 9:43 AM MOLDER HELPER Impressions 07/16/2024 9:43 AM MOLDER HELPER Normal venous ultrasound exam. No evidence of deep vein thrombosis within the right lower extremity. Dictated by Ron Walters MD @ 07/16/2024 9:43:14 AM (Electronically Signed) Narrative 07/16/2024 9:43 AM MOLDER HELPER For Patients: As a result of the Century Cures Act, medical imaging exams and procedure [...] MD @ 07/16/2024 9:43:14 AM (Electronically Signed) us [employer] DO US Final Result * (ABNORMAL) IRON PLUS IRON BINDING CAP (07/16/2024 9:08 AM MOLDER HELPER) IRON, TOTAL 45(L) 50 - 180 mcg/dL [facility] IRON BINDING CAPACITY 298 250 - 425 mcg/dL (calc) [facility] % SATURATION 15(L) 20 - 48 % (calc) [facility] Blood BLOOD SPECIMEN / Unknown 07/16/2024 9:08 AM MOLDER HELPER 07/16/2024 9:08 AM MOLDER HELPER us Adei Shaqra DO CHEMISTRY Final Result Performing Organization Address City/State/[facility] Co de Phone Number [employer] [facility] [address] [place] [address], [facility] [address] [place] [address] * (ABNORMAL) HEMOGLOBIN (07/16/2024 9:08 AM MOLDER HELPER) [facility] HEMOGLOBIN 10.8(L) 13.2 - 17.1 g/dL [employer] Blood BLOOD SPECIMEN / Unknown 07/16/2024 9:08 AM MOLDER HELPER 07/16/2024 9:08 AM MOLDER HELPER Nikki Reilly DO HEMATOLOGY Final Result Performing Organization Address [facility] de Phone Number [employer] [facility] [address] [place] [address], [employer] [facility] [address] [place] [address] * FOLIC ACID (07/16/2024 9:08 AM MOLDER HELPER) [facility] FOLATE, SERUM >24.0 ng/mL [employer] Olson Comment: Reference Range Low: <3.4 Borderline: 3.4-5.4 Normal: >5.4 Blood BLOOD SPECIMEN / Unknown 07/16/2024 9:08 AM MOLDER HELPER 07/16/2024 9:08 AM MOLDER HELPER Nikki Reilly DO CHEMISTRY Final Result Performing Organization Address [facility] Co de Phone Number [employer] [facility] [address] [place] [address], [employer] [address] [place] [address] * (ABNORMAL) FERRITIN (07/16/2024 9:08 AM MOLDER HELPER) [facility] FERRITIN 555(H) 24 - 380 ng/mL [employer] Communications[employer]toine Olson Blood BLOOD SPECIMEN / Unknown 07/16/2024 9:08 AM MOLDER HELPER 07/16/2024 9:08 AM MOLDER HELPER Nikki Robledolarisa CHEMISTRY Final Result [employer] [facility] [address] [place] [address], [facility] [address] [place] [address] * VITAMIN B12 (07/16/2024 9:08 AM MOLDER HELPER) [facility] VITAMIN B12 328 200 - 1,100 pg/mL [employer] eugenio Olson Comment: Please Note: Although the reference range for vitamin B12 is 200-1100 pg/mL, it has been reported that between 5 and 10% of patients with values between 200 and 400 pg/mL may experience neuropsychiatric and hematologic abnormalities due to occult B12 deficiency; less than 1% of patients with values above 400 pg/mL will have symptoms. Blood BLOOD SPECIMEN / Unknown 07/16/2024 9:08 AM MOLDER HELPER 07/16/2024 9:08 AM MOLDER HELPER Angelaanmol Robledolarisa ELIZONDO CHEMISTRY Final Result [employer] [facility] [address] [place] [address], [facility] [address] [place] [address] * ANTI HCV [54714.2] (03/09/2018 10:39 AM CDT) Pathologist [facility] HEPATITIS C ANTIBODY Non-React [place] Non-React [place] 03/09/2018 5:05 PM CDT [facility] Comment:Antibodies to HCV no t detected; does not exclude the possibility of exposure to HCV. Blood BLOOD SPECIMEN / Unknown Venipuncture / Unknown 03/09/2018 10:39 AM CDT 03/09/2018 10:39 AM CDT Ron Garcia MD SEND OUTS Final Resu lt [facility] [address] [place] [address], [place] from Last 3 Months or Most Recently Relevant to Health Maintenance Insurance MEDICARE PART A HB ONLY MEDICARE PART B HB ONLY [place] HB ONLY [place] MR PB ONLY Advance Directives * Full Code (Latest Code Status on File) Date Activated Date Inactivated Comments 11/22/2011 11:07 AM 11/22/2011 3:00 PM * Full Code Date Activated Date Inactivated Comments 11/22/2011 9:03 AM 11/22/2011 11:07 AM Care Teams Casting House Laborer Relationship Specialty Start Date End Date Nikki Reilly DO [address] [place] [address] PCP - General Family Practice 12/15/22
--- OUTSIDE RECORDS SUMMARY | 2024-09-18 11:29 | XMS_ITS | Encounter Summary ---
Author Organization [facility] Address [address] [place] [address] Care Team Providers Care Call Box Wirer Name Role Phone Elsewhere, Pcp Primary Care Provider Unavailabl e Encounter Details Date Type Department Care Team (Late st Contact Info) Description 2024 Orders Only Section of Infectious Diseases in [place], [place] [address] [place] [address] External, Ordering ProviderAnnemarie Social History Tobacco Use Types Packs/Day Years Used Date Smoking Tobacco: Never Smokeless Tobacco: Never Alcohol Use Standard Drinks/Week Comments Never 0 (1 standard drink = 0.6 oz pur e alcohol) [facility] Utilities Answer Date Recorded In the past 12 months has e [employer], gas, oil, or water [employer] threatened to shut off services in your [...] How often do you attend adventist or lutheran serv ices? Never 06/30/2021 Do [...] and heating? Not hard at all 06/30/2021 [facility] of Occupat ional Health - Occupational Stress [...] your living situation today? I have a [facility] place to live 07/19/2024 Education Answer Date Recorded What is the highest level of school you have completed or the highest degree you have received? Professional school degree (e.g., MD, DDS, DVM, GRACIELA) 06/30/2021 Sex and Gender Information Value Date Recorded Sex Assigned at Male 06/30/2021 12:19 PM NURSING STUDENT Legal Sex Male 7:31 AM CDT Gender Identity Male 06/30/2021 12:19 PM NURSING STUDENT Sexual Orientation Straight 06/30/2021 12 :19 PM NURSING STUDENT documented as of this encounter Functional Status [...] 7:45 AM CDT Appointment Department of Radiology, [facility] in [place], [place] [address] [place] [phone] Julio Soto M.D. [address] [place] [phone] 09/24/2024 9:30 AM CDT Diagnostic Division of Pulmonary Medicine in [place], [place] [address] [place] [phone] Marilu Castaneda P.A.-C., M.S. [address] [place] [phone] 09/24/2024 10:40 AM CDT Appointment Department of Laboratory Medicine and Pathology, [facility] in [place], [place] [address] [place] [phone] Marilu Castaneda P.A.-C., M.S. [address] [place] [phone] 09/24/2024 2:30 PM CDT Office Visit Section of Infectious Diseases in [place], [place] [address] [place] [address] Julio Soto M.D. [address] [place] [address] documented as of this encounter Procedures Procedure Name Priority Date/Time Associated Diagnosis Comments ALANINE AMINOTRANSFERASE (ALT), S/P Routine 2024 11:37 AM CDT POTASSIUM, S/P Routine 2024 11:37 AM CDT ALKALINE PHOSPHATASE, S/P Routine 2024 11:37 AM CDT documented in this encounter Results * Alkaline Phosphatase (2024 11:37 AM CDT) EXT Alkaline Phosphatase 100 40 - 150 U/L [facility] 2024 11:3 7 AM CDT Narrative [employer] - 2024 2:14 PM CDT Source result document attached to Order Number [id number] ([id number]) dated 2024. External results verified in Extract by Jazmín Bean on 2024 at 02:13 PM. us Ordering Provider External MBony LAB BLOOD ADD-ON Final Result [facility] [address] [place] [address] * (ABNORMAL) ALT (Alanine Aminotransferase) (2024 11:37 AM CDT) EXT ALT 65(H) 4 - 50 U/L [facility] 2024 11:3 7 AM CDT Narrative [employer] [facility] - 2024 2:14 PM CDT Source result document attached to Order Number [id number] ([id number]) dated 2024. External results verified in Extract by Jazmín Bean on 2024 at 02:13 PM. us Ordering Provider External M.D. LAB BLOOD ADD-ON Final Result Performing Organization Address City/[facility]/ZIP Co de Phone Number [employer] [facility] [address] [id number] [phone] * Potassium (2024 11:37 AM CDT) EXT Potassium 4.2 3.6 - 5.1 mmol/L [facility] 2024 11:3 7 AM CDT Narrative [facility] - 2024 2:14 PM CDT External results verified in Extract by Jazmín Bean on 2024 at 02:13 PM. us Ordering Provider External M.D. LAB BLOOD ADD-ON Final Result Performing Organization Address [facility] de Phone Number [facility] [address] [place] [address] documented in this encounter Visit Diagnoses Not on filedocumented in this encounter Additional Health Concerns Infection Onset Date Last Indicated Resolved Time Protective Environment 09/20/2022 09/20/202208/30 5:23 AM CDT Assessment Noted Time PHQ-9 Depression Total Score: 6 07/17/19 20 10:26 AM NURSING STUDENT documented as of this encounter Care Teams Call Box Wirer Relationship Specialty Start Date End Date Elsewhere, Pcp PCP - General Director Of Mechanical Engineering 06/27/19 documented as of this encounter
--- OUTSIDE RECORDS SUMMARY | 2024-09-18 11:29 | XMS_ITS | Encounter Summary ---
Author Organization [facility] Address [address] [place] [address] Care Team Providers Care Security Site Supervisor Name Role Phone Elsewhere, Pcp Primary Care Provider Unavailabl e Reason for Referral * MRI/CAT/PET Scan (Routine) - Closed Specialty Diagnoses / Procedures Referred By Contac t Referred To Contact Radiology Diagnoses Pneumonia Procedures CT Chest without IV Contrast Catherine Garcia M.D. 200 [place] [address] Phone: tel: fax: [facility] Referral ID Status Reason Start Date Expiration Date Visits Re quested Visits Authorized [id number] Closed 07/04/2024 10/04/2025 1 1 Reason for Visit * MRI/CAT/PET Scan (Routine) - Closed Specialty Diagnoses / Procedures Referred By Oliverio akers Referred To Contact Radiology Diagnoses Pneumonia Procedures CT Chest without IV Contrast Catherine Garcia M.D. 200 [place] [address] Phone: tel: fax: [facility] Referral ID Status Reason Start Date Expiration Date Visits Re quested Visits Authorized [id number] Closed 07/04/2024 10/04/2025 1 1 Encounter Details Date Type Department Care Team (Latest Contact Info) Description 08/13/2024 10:30 AM CDT - 08/13/2024 11:59 PM CDT Hospital Encounter Department of Radiology, [facility], in [place], [place] [address] [place] [address] Catherine Garcia M.D. [address] [place] [address] Pneumonia Discharge Disposition: Home or Self Care Social History Tobacco Use Types Packs/Day Years Used Date Smoking Tobacco: Never Smokeless Tobacco: Never Alcohol Use Standard Drinks/Week Comments Never 0 (1 standard drink = 0.6 oz pur e alcohol) [facility] Utilities Answer Date Recorded In the past 12 months has e [employer], gas, oil, or water [employer] threatened to shut off services in your [...] week 06/30/2021 How often do you attend mu-ism or buddhism serv ices? Never 06/30/2021 Do you belong to any clubs o r organizations such as mu-ism groups, unions, fraternal or athletic groups, or [...] and heating? Not hard at all 06/30/2021 [facility] of Occupat ional Health - Occupational [...] your living situation today? I have a [facility] place to live 07/19/2024 Education Answer Date Recorded What is the highest level of school you have completed or the highest degree you have received? Professional school degree (e.g., , YELENA, DVM, GRACIELA) 06/30/2021 Sex and Gender Information Value Date Recorded Sex Assigned at Male 06/30/2021 12:19 PM COOLER TENDER Legal Sex Male 7:31 AM CDT Gender Identity Male 06/30/2021 12:19 PM COOLER TENDER Sexual Orientation Straight 06/30/2021 12 :19 PM COOLER TENDER documented as of this encounter Functional Status [...] 10:08 AM Cheryl Mensah M.S.W., [employer]. documented as of this [...] 07/30/2024. 135 tablet 3 07/29/2024 2:01 PM COOLER TENDER 07/29/2024 documented as of this encounter Plan of Treatment Upcoming Encounters Date Type Department Care Team (Late st Contact Info) Description 09/24/2024 7:45 AM CDT Appointment Department of Radiology, [facility] in [place], [place] [address] [place] [phone] Julio Soto M.D. [address] [place] [phone] 09/24/2024 9:30 AM CDT Diagnostic Division of Pulmonary Medicine in [place], [place] [address] [place] [phone] Marilu Castaneda P.A.-C., M.S. [address] [place] [phone] 09/24/2024 10:40 AM CDT Appointment Department of Laboratory Medicine and Pathology, [facility] in [place], [place] [address] [place] [phone] Marilu Castaneda P.A.-C., M.S. [address] [place] [phone] 09/24/2024 2:30 PM CDT Office Visit Section of Infectious Diseases in [place], [place] [address] [place] [phone] Julio Soto M.D. [address] [place] [phone] documented as of this encounter Procedures Procedure [...] Score: 6 07/17/19 20 10:26 AM COOLER TENDER documented as of this encounter Care Teams Security Site Supervisor Relationship Specialty Start Date End Date Elsewhere, Pcp PCP - General Head Track Coach 06/27/19 documented as of this encounter
--- OUTSIDE RECORDS SUMMARY | 2024-09-18 11:29 | XMS_ITS | Encounter Summary ---
Author Organization [facility] Address [address] [place] [address] Care Team Providers Care Junior Sales Assistant Name Role Phone Elsewhere, Pcp Primary Care Provider Unavailabl e Reason for Referral * Outpatient (Routine) - Authorized Specialty Diagnoses / Procedures Referred By Contac t Referred To Contact Cardiovascular Disease Marilu Castaneda P.A.-C., M.S. [address] [place] [phone] Phone: tel: fax: [facility] Referral ID Status Reason Start Date Expiration Date V isits Requested Visits Authorized [id number] Authorized 08/29/2024 02/28/2026 1 1 Reason for Visit * Outpatient (Routine) - Closed Specialty Diagnoses / Procedures Referred By Contac t Referred To Contact Cardiovascular Disease Marilu Castaneda P.A.-C., M.S. [address] [place] [phone] Phone: tel: fax: Ron Santana M.D., Ph.D. [address] [place] [phone] Phone: tel: fax: Referral ID Status Reason Start Date Expiration Date Visits Re quested Visits Authorized [id number] Closed 01/13/2024 07/14/2025 1 1 Encounter Details Date Type Department Care Team (Latest Contact Info) Description 08/29/2024 9:00 AM CDT Office Visit Department of Cardiovascular Medicine in [place], [place] [address] [place] [address] Marilu Castaneda P.A.-C., M.S. [address] [place] [address] Monitoring For Therapeutic Drug Therapy (Primary Dx) Social History Tobacco Use Types Packs/Day Years Used Date Smoking Tobacco: Never Smokeless Tobacco: Never Alcohol Use Standard Drinks/Week Comments Never 0 (1 standard drink = 0.6 oz pur e alcohol) [facility] Utilities Answer Date Recorded In the past 12 months has e [employer], gas, oil, or water [employer] threatened to shut off services in your [...] week 06/30/2021 How often do you attend moravian or advent serv ices? Never 06/30/2021 Do you belong to any clubs o r organizations such as moravian groups, unions, fraternal or athletic groups, or [...] living situation today? I have a [facility] place to live 07/19/2024 Education Answer Date Recorded What is the highest level of school you have completed or the highest degree you have received? Professional school degree (e.g., MD, DDS, DVM, GRACIELA) 06/30/2021 Sex and Gender Information Value Date Recorded Sex Assigned at Male 06/30/2021 12:19 PM CONE TREATER Legal Sex Male 7:31 AM CDT Gender Identity Male 06/30/2021 12:19 PM CONE TREATER Sexual Orientation Straight 06/30/2021 12 :19 PM CONE TREATER documented as of this encounter Last Filed [...] are now present WV interval has decreased HR 68 bpm, WV 176, QRS 98, QTC 469 Labs: (external) [...] for Mr. Jensen to have a non kbie-xs-lvga visit in 3 months' time to reconvene on plan of care. It was a pleasure to meet with Mr. Jensen today in to participate in his care. Total time spent >40 minutes, including tslj-ab-kgew time and non pvan-nn-hlkp care time. Marilu Castaneda P.A.-C., M.S. 08/29/2024 [...] 7:45 AM CDT Appointment Department of Radiology, [facility], in [place], [place] [address] [place] [phone] Julio Soto M.D. [address] [place] [phone] 09/24/2024 9:30 AM CDT Diagnostic Division of Pulmonary Medicine in [place], [place] [address] [place] [phone] Marilu Castaneda P.A.-C., M.S. [address] [place] [phone] 09/24/2024 10:40 AM CDT Appointment Department of Laboratory Medicine and Pathology, [facility], in [place], [place] [address] [place] [phone] Marilu Castaneda P.A.-C., M.S. [address] [place] [phone] 09/24/2024 2:30 PM CDT Office Visit Section of Infectious Diseases in [place], [place] [address] [place] [phone] Julio Soto M.D. [address] [place] [phone] Scheduled Orders Name Type Priority Associated Diagnoses Orde r Schedule Pulmonary Function Tests PFT Routine Monitoring For Therapeutic Drug Therapy Expected: 09/29/2024, Expires: 11/29/2025 Amiodarone Level Lab Routine Monitoring For Therapeutic Drug Therapy Expected: 09/24/2024, Expires: 11/29/2025 Scheduled Referrals Name Type Priority Associated Diagnoses Order Schedule Cardiovascular Disease office visit (clinic) [facility]; [facility] Outpatient Referral Routine Expect ed: 11/29/2024 (Approximate), Expires: 11/29/2025 documented as of this encounter Visit Diagnoses Diagnosis Monitoring For Therapeutic Drug Therapy- Primary documented in this encounter Additional Health Concerns Infection Onset Date Last Indicated Resolved Time Protective Environment 09/20/2022 09/20/202208/30 5:23 AM CDT Assessment Noted Time PHQ-9 Depression Total Score: 6 07/17/19 20 10:26 AM CONE TREATER documented as of this encounter Care Teams Junior Sales Assistant Relationship Specialty Start Date End Date Elsewhere, Pcp PCP - General Research Program Manager 06/27/19 documented as of this encounter
--- OUTSIDE RECORDS SUMMARY | 2024-09-18 11:29 | XMS_ITS | Encounter Summary ---
Author Organization [facility] Address [address] [place] [address] Care Team Providers Care Pin Ball Machine Mechanic Name Role Phone Elsewhere, Pcp Primary Care Provider Unavailabl e Encounter Details Date Type Department Care Team (Late st Contact Info) Description 2024 Orders Only Section of Infectious Diseases in [place], [place] [address] [place] [address] External, Ordering ProviderAnnemarie Social History Tobacco Use Types Packs/Day Years Used Date Smoking Tobacco: Never Smokeless Tobacco: Never Alcohol Use Standard Drinks/Week Comments Never 0 (1 standard drink = 0.6 oz pur e alcohol) [facility] Utilities Answer Date Recorded In the past 12 months has e [employer], gas, oil, or water [employer] threatened to shut off services in your [...] week 06/30/2021 How often do you attend zoroastrianism or oriental orthodox serv ices? Never 06/30/2021 Do you belong to any clubs o r organizations such as zoroastrianism groups, unions, fraternal or athletic groups, or [...] your living situation today? I have a [facility] place to live 07/19/2024 Education Answer Date Recorded What is the highest level of school you have completed or the highest degree you have received? Professional school degree (e.g., MD, DDS, DVM, GRACIELA) 06/30/2021 Sex and Gender Information Value Date Recorded Sex Assigned at Male 06/30/2021 12:19 PM LENDING ACTIVITIES SUPERVISOR Legal Sex Male 7:31 AM CDT Gender Identity Male 06/30/2021 12:19 PM LENDING ACTIVITIES SUPERVISOR Sexual Orientation Straight 06/30/2021 12 :19 PM LENDING ACTIVITIES SUPERVISOR documented as of this encounter Functional Status [...] CDT Appointment Department of Radiology, [facility] in [place], [place] [address] [place] [phone] Julio Soto M.D. [address] [place] [phone] 09/24/2024 9:30 AM CDT Diagnostic Division of Pulmonary Medicine in [place], [place] [address] [place] [phone] Marilu Castaneda P.A.-C., M.S. [address] [place] [phone] 09/24/2024 10:40 AM CDT Appointment Department of Laboratory Medicine and Pathology, [facility] in [place], [place] [address] [place] [phone] Marilu Castaneda P.A.-C., M.S. [address] [place] [phone] 09/24/2024 2:30 PM CDT Office Visit Section of Infectious Diseases in [place], [place] [address] [place] [address] Julio Soto M.D. [address] [place] [address] documented as of this encounter Procedures Procedure [...] Total Score: 6 07/17/19 20 10:26 AM LENDING ACTIVITIES SUPERVISOR documented as of this encounter Care Teams Pin Ball Machine Mechanic Relationship Specialty Start Date End Date Elsewhere, Pcp PCP - General Supervisor [employer] 06/27/19 documented as of this encounter
--- OUTSIDE RECORDS SUMMARY | 2024-09-18 11:29 | XMS_ITS | Encounter Summary ---
Author Organization [facility] Address [address] [place] [address] Care Team Providers Care Metal Turner Name Role Phone Elsewhere, Pcp Primary Care Provider Unavailabl e Encounter Details Date Type Department Care Team (Late st Contact Info) Description 09/13/2024 Orders Only Department of Oncology in [place], [place] [address] [place] [address] Taniya Garzon MPAS, P.A.-C., P.A. [address] [place] [phone] Social History Tobacco Use Types Packs/Day Years Used Date Smoking Tobacco: Never Smokeless Tobacco: Never Alcohol Use Standard Drinks/Week Comments Never 0 (1 standard drink = 0.6 oz pur e alcohol) [facility] Utilities Answer Date Recorded In [...] week 06/30/2021 How often do you attend synagogue or pentecostal serv ices? Never 06/30/2021 Do you belong to any clubs o r organizations such as synagogue groups, unions, fraternal or athletic groups, or [...] heating? Not hard at all 06/30/2021 [facility] of Occupat ional Health - Occupational Stress [...] your living situation today? I have a [facility] place to live 07/19/2024 Education Answer Date Recorded What is the highest level of school you have completed or the highest degree you have received? Professional school degree (e.g., MD, DDS, DVM, GRACIELA) 06/30/2021 Sex and Gender Information Value Date Recorded Sex Assigned at Male 06/30/2021 12:19 PM STEEL DETAILER Legal Sex Male 7:31 AM CDT Gender Identity Male 06/30/2021 12:19 PM STEEL DETAILER Sexual Orientation Straight 06/30/2021 12 :19 PM STEEL DETAILER documented as of this encounter Functional Status [...] 7:45 AM CDT Appointment Department of Radiology, [facility] in [place], [place] [address] [place] [phone] Julio Soto M.D. [address] [place] [phone] 09/24/2024 9:30 AM CDT Diagnostic Division of Pulmonary Medicine in [place], [place] [address] [place] [phone] Marilu Castaneda P.A.-C., M.S. [address] [place] [phone] 09/24/2024 10:40 AM CDT Appointment Department of Laboratory Medicine and Pathology, [facility] in [place], [place] [address] [place] [phone] Marilu Castaneda P.A.-C., M.S. [address] [place] [phone] 09/24/2024 2:30 PM CDT Office Visit Section of Infectious Diseases in [place], [place] [address] [place] [phone] Julio Soto M.D. [address] [place] [phone] documented as of this encounter Visit Diagnoses Not on filedocumented in this encounter Additional Health Concerns Assessment Noted Time PHQ-9 Depression Total Score: 6 07/17/19 20 10:26 AM STEEL DETAILER documented as of this encounter Care Teams Metal Turner Relationship Specialty Start Date End Date Elsewhere, Pcp PCP - General Broommaking Supervisor 06/27/19 documented as of this encounter
--- OUTSIDE RECORDS SUMMARY | 2024-09-18 11:29 | XMS_ITS | Encounter Summary ---
Author Organization [facility] Address [address] [place] [address] Care Team Providers Care Director Of Clinical Education Name Role Phone Elsewhere, Pcp Primary Care Provider Unavailabl e Encounter Details Date Type Department Care Team (Late st Contact Info) Description 09/11/2024 Orders Only Department of Oncology in [place], [place] [address] [place] [address] Birdie Hurtado M.D. [address] [place] [address] Social History Tobacco Use Types Packs/Day Years Used Date Smoking Tobacco: Never Smokeless Tobacco: Never Alcohol Use Standard Drinks/Week Comments Never 0 (1 standard drink = 0.6 oz pur e alcohol) [facility] Utilities Answer Date Recorded In the past 12 months has [facility] [employer], gas, oil, or water [employer] threatened to shut off services in your [...] week 06/30/2021 How often do you attend denominational or anglican serv ices? Never 06/30/2021 Do you belong to any clubs o r organizations such as denominational groups, unions, fraternal or athletic groups, or [...] [facility] - Occupational Stress Questionnaire Answer [...] your living situation today? I have a [facility] place to live 07/19/2024 Education Answer Date Recorded What is the highest level of school you have completed or the highest degree you have received? Professional school degree (e.g., MD, DDS, DVM, GRACIELA) 06/30/2021 Sex and Gender Information Value Date Recorded Sex Assigned at Male 06/30/2021 12:19 PM MANAGER PEOPLE Legal Sex Male 7:31 AM CDT Gender Identity Male 06/30/2021 12:19 PM MANAGER PEOPLE Sexual Orientation Straight 06/30/2021 12 :19 PM MANAGER PEOPLE documented as of this encounter Functional Status [...] AM CDT Appointment Department of Radiology, [facility] in [place], [place] [address] [place] [phone] Julio Soto M.D. [address] [place] [phone] 09/24/2024 9:30 AM CDT Diagnostic Division of Pulmonary Medicine in [place], [place] [address] [place] [phone] Marilu Castaneda P.A.-C., M.S. [address] [place] [phone] 09/24/2024 10:40 AM CDT Appointment Department of Laboratory Medicine and Pathology, [facility] in [place], [place] [address] [place] [phone] Marilu Castaneda P.A.-C., M.S. [address] [place] [phone] 09/24/2024 2:30 PM CDT Office Visit Section of Infectious Diseases in [place], [place] [address] [place] [phone] Julio Soto M.D. [address] [place] [phone] documented as of this encounter Visit Diagnoses Not on filedocumented in this encounter Additional Health Concerns Assessment Noted Time PHQ-9 Depression Total Score: 6 07/17/19 20 10:26 AM MANAGER PEOPLE documented as of this encounter Care Teams Director Of Clinical Education Relationship Specialty Start Date End Date Elsewhere, Pcp PCP - General Claim Examiner 06/27/19 documented as of this encounter
--- OUTSIDE RECORDS SUMMARY | 2024-09-18 11:29 | XMS_ITS | Encounter Summary ---
Author Organization [facility] Address [address] [place] [address] Care Team Providers Care Windows Server Specialist Name Role Phone Elsewhere, Pcp Primary Care Provider Unavailabl e Reason for Visit * Reason Comments OPAT Encounter Details Date Type Department Care Team (Late st Contact Info) Description 08/27/2024 Patient Outreach Section of Infectious Diseases in [place], [place] [address] [place] [address] Alicia Tavarez R.N. OPAT Social History Tobacco Use Types Packs/Day Years Used Date Smoking Tobacco: Never Smokeless Tobacco: Never Alcohol Use Standard Drinks/Week Comments Never 0 (1 standard drink = 0.6 oz pur e alcohol) [facility] Utilities Answer Date Recorded In the past 12 months has [employer], gas, oil, or water [employer] threatened to shut off services in your [...] week 06/30/2021 How often do you attend holiness or orthodox serv ices? Never 06/30/2021 Do you belong to any clubs o r organizations such as holiness groups, unions, fraternal or athletic groups, or [...] and heating? Not hard at all 06/30/2021 [facility] of Occupat ional Health - [...] Sex Assigned at Male 06/30/2021 12:19 PM COUNTER TACKER Legal Sex Male 7:31 AM CDT Gender Identity Male 06/30/2021 12:19 PM COUNTER TACKER Sexual Orientation Straight 06/30/2021 12 :19 PM COUNTER TACKER documented as of this encounter Functional Status [...] Name Phone Number OPAT Lab: [facility] at [facility] ( ) [phone] Problem: Outpatient Antimicrobial Therapy Monitoring Description: OPAT/COpAT: -Follow up scheduled 09/24/24 -IFD Managing Service/Provider: [facility] Medications: Posaconazole Start Date: 07/04/24, End date: TBD Goal: Patient will obtain drug level Description: Posaconazole, random or trough (Notify pharmacist or provider if <1250 ng/mL or >2000 ng/mL.) In two weeks, then monthly Note: Labs still pending Interpretation and Action: Spoke to Kezia at [facility] lab. Results will come back either later today or tomorrow. We will await lab results. She confirms having our fax number. Reference used: Guideline for Antimicrobial Therapy Monitoring for the Division of Infectious Diseases - [id number] * Lili Chaudhry M.S.N., R.N., ITZEL - 2024 3:27 PM CDT OPAT NOTE - LAB REVIEW Name Phone Number [facility] Lab: [facility] at [facility] ( ) [phone] Problem: Outpatient Antimicrobial Therapy Monitoring Description: OPAT/COpAT: -Follow up scheduled 09/24/24 -IFD Managing Service/Provider: [facility] Medications: Posaconazole Start Date: 07/04/24, End date: [...] for the Division of Infectious Diseases - [id number] * Jay Carrasco, M.P.H., R.N. - 2024 10:23 AM CDT OPAT NOTE Name Phone Number OPAT Lab: [facility] at [facility] ( ) [phone] SUBJECTIVE CHIEF COMPLAINT / REASON FOR CALL OPAT Information Discussed Spoke to patient who is aware that he needs monthly labs drawn. He stated that he would go to [facility] to have a set drawn today. If he is not able to get them done today, he will call IFDand ask for a nurse to make sure an appointment is set up for tomorrow in [place], as he is coming for other appointments and will be at [facility]. IFD contact number provided. Spoke to the industrial technology teacher at [facility] who stated that [facility] orders are not on file. She stated that the patient has labs drawn regularly and requested the order be faxed and that she would talk to him about making sure the recommended OPAT labs get drawn. PLAN Disposition/Recommendation: Order was faxed to [phone], as requested. Information/Education: patient/caller able to teach back Caller agreeable to plan of care: yes The following references were used: nursing clinical judgement * Alicia Tavarez R.N. - 08/27/2024 11:39 AM CDT OPAT NOTE Name Phone Number OPAT Lab: [facility] ( ) [phone] SUBJECTIVE CHIEF COMPLAINT / REASON FOR CALL OPAT Information Discussed I spoke with nurse Moran in [facility] and she states patient might have these labs drawn at [facility] where he does chemotherapy (not affiliated). The only thing they do in [facility] is INR. She provided [facility] tel: [phone]. I will reach out to [facility] to ask about lab order. 1145: Call made to [facility] and I spoke to Nurse Albert in the ITC. She provided fax number: [phone] where I could fax lab order. Contacts [...] Appointment Department of Radiology, [facility], in [place], [place] [address] [place] [phone] Julio Soto M.D. [address] [place] [phone] 09/24/2024 9:30 AM CDT Diagnostic Division of Pulmonary Medicine in [place], [place] [address] [place] [phone] Marilu Castaneda P.A.-C., M.S. [address] [place] [phone] 09/24/2024 10:40 AM CDT Appointment Department of Laboratory Medicine and Pathology, [facility] in [place], [place] [address] [place] [phone] Marilu Castaneda P.A.-C., M.S. [address] [place] [phone] 09/24/2024 2:30 PM CDT Office Visit Section of Infectious Diseases in [place], [place] [address] [place] [phone] Julio Soto M.D. [address] [place] [phone] documented as of this encounter Visit Diagnoses Not on filedocumented in this encounter Additional Health Concerns Infection Onset Date Last Indicated Resolved Time Protective Environment 09/20/2022 09/20/202208/30 5:23 AM CDT Assessment Noted Time PHQ-9 Depression Total Score: 6 07/17/19 20 10:26 AM COUNTER TACKER documented as of this encounter Care Teams Windows Server Specialist Relationship Specialty Start Date End Date Elsewhere, Pcp PCP - General Automotive Maintenance Technician 06/27/19 documented as of this encounter
--- OUTSIDE RECORDS SUMMARY | 2024-09-18 11:29 | XMS_ITS | Encounter Summary ---
Author Organization [facility] Address [address] [place] [address] Care Team Providers Care Call Center Support Representative Name Role Phone Elsewhere, Pcp Primary Care Provider Unavailabl e Encounter Details Date Type Department Care Team (Late st Contact Info) Description 08/30/2024 Orders Only Department of Oncology in [place], [place] [address] [place] [phone] Birdie Hurtado M.D. [address] [place] [phone] Social History Tobacco Use Types Packs/Day Years Used Date Smoking Tobacco: Never Smokeless Tobacco: Never Alcohol Use Standard Drinks/Week Comments Never 0 (1 standard drink = 0.6 oz pur e alcohol) [facility] Utilities Answer Date Recorded In the past 12 months has [facility] [employer], gas, oil, or water [employer] threatened to shut off services in your [...] How often do you attend sikhism or rastafarian serv ices? Never 06/30/2021 Do [...] and heating? Not hard at all 06/30/2021 [facility] [place] of Occupat ional Health - Occupational Stress [...] a [facility] place to live 07/19/2024 Education Answer Date Recorded What is the highest level of school you have completed or the highest degree you have received? Professional school degree (e.g., MD, DDS, DVM, GRACIELA) 06/30/2021 Sex and Gender Information Value Date Recorded Sex Assigned at Male 06/30/2021 12:19 PM FINANCIAL SUPERVISOR Legal Sex Male 7:31 AM CDT Gender Identity Male 06/30/2021 12:19 PM FINANCIAL SUPERVISOR Sexual Orientation Straight 06/30/2021 12 :19 PM FINANCIAL SUPERVISOR documented as of this encounter Functional [...] AM CDT Appointment Department of Radiology, [facility] in [place], [place] [address] [place] [phone] Julio Soto M.D. [address] [place] [phone] 09/24/2024 9:30 AM CDT Diagnostic Division of Pulmonary Medicine in [place], [place] [address] [place] [phone] Marilu Castaneda P.A.-C., M.S. [address] [place] [phone] 09/24/2024 10:40 AM CDT Appointment Department of Laboratory Medicine and Pathology, [facility] in [place], [place] [address] [place] [phone] Marilu Castaneda P.A.-C., M.S. [address] [place] [phone] 09/24/2024 2:30 PM CDT Office Visit Section of Infectious Diseases in [place], [place] [address] [place] [phone] Julio Soto M.D. [address] [place] [phone] documented as of this encounter Visit Diagnoses Not on filedocumented in this encounter Additional Health Concerns Infection Onset Date Last Indicated Resolved Time Protective Environment 09/20/2022 09/20/202208/30 5:23 AM CDT Assessment Noted Time PHQ-9 Depression Total Score: 6 07/17/19 20 10:26 AM FINANCIAL SUPERVISOR documented as of this encounter Care Teams Call Center Support Representative Relationship Specialty Start Date End Date Elsewhere, Pcp PCP - General Handyperson 06/27/19 documented as of this encounter
--- OUTSIDE RECORDS SUMMARY | 2024-09-18 11:29 | XMS_ITS | Encounter Summary ---
Author Organization [facility] Address [address] [place] [address] Care Team Providers Care Corporate Bond Trader Name Role Phone Elsewhere, Pcp Primary Care Provider Unavailabl e Reason for Visit * Reason Onset Date Comments Pre-visit Intake 2024 * Appointment Request (Routine) - Authorized Specialty Diagnoses / Procedures Referred By Oliverio t Referred To Contact Cardiovascular Disease Referral ID Status Reason Start Date Expiration Date V isits Requested Visits Authorized [id number] Authorized 07/20/2024 10/20/2025 1 1 Encounter Details Date Type Department Care Team (Latest Contact Info) Description 2024 9:30 AM CDT Clinical Communication Virtual Review in [place], [place] 200 [place] [phone] Pre-visit Intake Social History Tobacco Use Types Packs/Day Years Used Date Smoking Tobacco: Never Smokeless Tobacco: Never Alcohol Use Standard Drinks/Week Comments Never 0 (1 standard drink = 0.6 oz pur e alcohol) [facility] Utilities Answer Date Recorded In the [...] How often do you attend baptist or baptism serv ices? Never 06/30/2021 Do [...] your living situation today? I have a [facility] place to live 07/19/2024 Education Answer Date Recorded What is the highest level of school you have completed or the highest degree you have received? Professional school degree (e.g., , DDS, DVM, GRACIELA) 06/30/2021 Sex and Gender Information Value Date Recorded Sex Assigned at Male 06/30/2021 12:19 PM TRAINS SERVICE CONDUCTOR Legal Sex Male 7:31 AM CDT Gender Identity Male 06/30/2021 12:19 PM TRAINS SERVICE CONDUCTOR Sexual Orientation Straight 06/30/2021 12 :19 PM TRAINS SERVICE CONDUCTOR documented as of this encounter Functional Status [...] 7:45 AM CDT Appointment Department of Radiology, [facility] in [place], [place] [address] [place] [phone] Julio Soto M.D. [address] [place] [phone] 09/24/2024 9:30 AM CDT Diagnostic Division of Pulmonary Medicine in [place], [place] [address] [place] [phone] Marilu Castaneda P.A.-C., M.S. [address] [place] [phone] 09/24/2024 10:40 AM CDT Appointment Department of Laboratory Medicine and Pathology, [facility] in [place], [place] [address] [place] [phone] Marilu Castaneda P.A.-C., M.S. [address] [place] [phone] 09/24/2024 2:30 PM CDT Office Visit Section of Infectious Diseases in [place], [place] [address] [place] [phone] Julio Soto M.D. [address] [place] [phone] documented as of this encounter Visit Diagnoses Not on filedocumented in this encounter Additional Health Concerns Infection Onset Date Last Indicated Resolved Time Protective Environment 09/20/2022 09/20/202208/30 5:23 AM CDT Assessment Noted Time PHQ-9 Depression Total Score: 6 07/17/19 20 10:26 AM TRAINS SERVICE CONDUCTOR documented as of this encounter Care Teams Corporate Bond Trader Relationship Specialty Start Date End Date Elsewhere, Pcp PCP - General Tunnel Elastic Operator Lockstitch 06/27/19 documented as of this encounter
--- OUTSIDE RECORDS SUMMARY | 2024-09-18 11:29 | XMS_ITS | Encounter Summary ---
Author Organization [facility] Address [address] [place] [address] Care Team Providers Care Vehicle Check In Clerk Name Role Phone Elsewhere, Pcp Primary Care Provider Unavailabl e Reason for Visit * Reason Comments OPAT Encounter Details Date Type Department Care Team (Late st Contact Info) Description 08/31/2024 Patient Outreach Section of Infectious Diseases in [place], [place] [address] [place] [phone] Suzi Cummins R.N. [address] [place] [phone] OPAT Social History Tobacco Use Types Packs/Day Years Used Date Smoking Tobacco: Never Smokeless Tobacco: Never Alcohol Use Standard Drinks/Week Comments Never 0 (1 standard drink = 0.6 oz pur e alcohol) [facility] Utilities Answer Date Recorded In the past 12 months has [facility] [employer], gas, oil, or water [employer] threatened to shut off services in your [...] How often do you attend adventism or pentecostalism serv ices? Never 06/30/2021 Do [...] and heating? Not hard at all 06/30/2021 [facility] [place] of Occupat ional Health - Occupational Stress [...] your living situation today? I have a [employer] place to live 07/19/2024 Education Answer Date Recorded What is the highest level of school you have completed or the highest degree you have received? Professional school degree (e.g., MD, DDS, DVM, GRACIELA) 06/30/2021 Sex and Gender Information Value Date Recorded Sex Assigned at Male 06/30/2021 12:19 PM LAND LEVELER Legal Sex Male 7:31 AM CDT Gender Identity Male 06/30/2021 12:19 PM LAND LEVELER Sexual Orientation Straight 06/30/2021 12 :19 PM LAND LEVELER documented as of this encounter Functional Status [...] posaconazole drug level monitoring to be obtained on09/11 (patient already had other labs scheduled for this day). The patient expressed understanding of the plan and had no further questions. They are aware of theOPAT contact information for non-urgent antimicrobial related questions. documented in this encounter Nursing Notes * Jacinta Cardoza R.N. - 09/18/2024 10:41 AM CDT OPAT NOTE Name Phone Number OPAT Lab: [facility] at [facility] ( ) [phone] Patient had a repeat posaconazole level ordered to be drawn 09/11/24. Per review of CE, it is not clear if a level was drawn or not. Interpretation and Action: Will request follow up to see if the level is pending, and if not, will ask patient to have drawn this week if possible. Reference used: Guideline for Antimicrobial Therapy Monitoring for the Division of Infectious Diseases - [id number] * Angelique Townsend R.N. - 09/05/2024 9:22 AM CDT OPAT NOTE - LAB REVIEW Name Phone Number OPAT Lab: [facility] at [facility] ( ) [phone] Problem: Outpatient Antimicrobial Therapy Monitoring Description: OPAT/COpAT: -Follow up scheduled 09/24/24 -IFD Managing Service/Provider: [facility] Medications: Posaconazole Start Date: 07/04/24, [...] OPAT guideline parameters Intervention: Patient assessment regarding [id number] drug level(s) completed Note: Date/time of lab draw: 2024 at 11:37 AM Date/time of last dose prior to lab draw: ? Any missed doses?: ? Interpretation and Action: Will review with OPAT pharmacist regarding low Posaconazole level. Reference used: Guideline for Antimicrobial Therapy Monitoring for the Division of Infectious Diseases - [id number] OPAT RN attempted to reach Mr. Jensen via telephone to inquire about Posaconazole dosing time priorto labs drawn on 2024 and if there were any missed doses. Voicemail as left requesting a return call. OPAT number provided. * Suzi Cummins R.N. - 08/31/2024 2:02 PM CDT OPAT NOTE - LAB REVIEW Name Phone Number OPAT Lab: [facility] at [facility] ( ) [phone] Problem: Outpatient Antimicrobial Therapy Monitoring Description: OPAT/COpAT: -Follow up scheduled 09/24/24 -IFD Managing Service/Provider: [facility] Medications: Posaconazole Start Date: 07/04/24, End date: TBD Goal: Patient will obtain safety monitoring labs Description: Labs required: ALT, Alk Phos, and Potassium in two weeks, then monthly Baseline Creatinine: N/A Intervention: Labs reviewed Note: Lab results from 2024 are viewable in the MCR record. Within OPAT guideline parameters Interpretation and Action: No change in plan as per [facility] Practice Guideline. Reference used: Guideline for Antimicrobial Therapy Monitoring for the Division of Infectious Diseases - [id number] documented in this encounter Miscellaneous Notes * Addendum Note - Sheila Atkins Pharm.D., R.Ph. - 09/05/2024 2:34 PM CDT Addended by: SHEILA ATKINS on: 09/05/2024 02:34 PM Modules accepted: Orders documented in this encounter Plan of Treatment Upcoming Encounters Date Type Department Care Team (Late st Contact Info) Description 09/24/2024 7:45 AM CDT Appointment Department of Radiology, [facility] in [place], [place] [address] [place] [phone] Julio Soto M.D. [address] [place] [phone] 09/24/2024 9:30 AM CDT Diagnostic Division of Pulmonary Medicine in [place], [place] [address] [place] [phone] Marilu Castaneda P.A.-C., M.S. [address] [place] [phone] 09/24/2024 10:40 AM CDT Appointment Department of Laboratory Medicine and Pathology, [facility] in [place], [place] [address] [place] [phone] Marilu Castaneda P.A.-C., M.S. [address] [place] [phone] 09/24/2024 2:30 PM CDT Office Visit Section of Infectious Diseases in [place], [place] [address] [place] [phone] Julio Soto M.D. [address] [place] [phone] documented as of this encounter Visit Diagnoses Diagnosis Rectifying Operator Antibiotic Treatment- Primary Aspergillosis (HCC) Monitoring For Therapeutic Drug Therapy documented in this encounter Additional Health Concerns Assessment Noted Time PHQ-9 Depression Total Score: 6 07/17/19 20 10:26 AM LAND LEVELER documented as of this encounter Care Teams Vehicle Check In Clerk Relationship Specialty Start Date End Date Elsewhere, Pcp PCP - General Process Description Writer 06/27/19 documented as of this encounter
--- OUTSIDE RECORDS SUMMARY | 2024-09-18 11:29 | XMS_ITS | Encounter Summary ---
Author Organization [facility] Address [address] [place] [address] Care Team Providers Care Surgical Garment Assembler Name Role Phone Elsewhere, Pcp Primary Care Provider Unavailabl e Reason for Visit * Reason Comments OPAT Encounter Details Date Type Department Care Team (Late st Contact Info) Description 08/13/2024 Patient Outreach Section of Infectious Diseases in [place], [place] [address] [place] [phone] Alicia Tavarez R.N. OPAT Social History Tobacco Use Types Packs/Day Years Used Date Smoking Tobacco: Never Smokeless Tobacco: Never Alcohol Use Standard Drinks/Week Comments Never 0 (1 standard drink = 0.6 oz pur e alcohol) [facility] Utilities Answer Date Recorded In the past 12 months has [employer], gas, oil, or water [employer] threatened to shut off services in your [...] How often do you attend yazidism or temple serv ices? Never 06/30/2021 Do you belong [...] your living situation today? I have a [facility] place to live 07/19/2024 Education Answer Date Recorded What is the highest level of school you have completed or the highest degree you have received? Professional school degree (e.g., , DDS, DVM, GRACIELA) 06/30/2021 Sex and Gender Information Value Date Recorded Sex Assigned at Male 06/30/2021 12:19 PM WOODWORKING CRAFTSMAN Legal Sex Male 7:31 AM CDT Gender Identity Male 06/30/2021 12:19 PM WOODWORKING CRAFTSMAN Sexual Orientation Straight 06/30/2021 12 :19 PM WOODWORKING CRAFTSMAN documented as of this encounter Functional Status [...] OPAT NOTE Name Phone Number OPAT Lab: [facility] ( ) [phone] Problem: Outpatient Antimicrobial Therapy Monitoring Description: OPAT/COpAT: -Follow up scheduled 09/24/24 -IFD Managing Service/Provider: [facility] Medications: Posaconazole Start Date: 07/04/24, [...] for the Division of Infectious Diseases - [id number] * Alicia Tavarez R.N. - 08/13/2024 4:12 PM CDT Images from the original note were not included. Name Phone Number OPAT Lab: [facility] ( ) [phone] Received via in[employer] Sport[employer]: Care Plan has been updated. Lab order from 07/09/24 does not have a posaconazole level included. I will place order to have that included and EHA to assist in faxing to [facility]. documented in this encounter Miscellaneous Notes * Addendum Note - Hannah Benavides - 08/13/2024 4:11 PM CDTAddended by: HANNAH BENAVIDES on: 08/21/2024 08:44 AM Modules accepted: Orders documented in this encounter Plan of Treatment Upcoming Encounters Date Type Department Care Team (Late st Contact Info) Description 09/24/2024 7:45 AM CDT Appointment Department of Radiology, [facility], in [place], [place] [address] [place] [phone] Julio Soto M.D. [address] [place] [phone] 09/24/2024 9:30 AM CDT Diagnostic Division of Pulmonary Medicine in [place], [place] [address] [place] [phone] Marilu Castaneda P.A.-C., M.S. [address] [place] [phone] 09/24/2024 10:40 AM CDT Appointment Department of Laboratory Medicine and Pathology, [facility], in [place], [place] [address] [place] [phone] Marilu Castaneda P.A.-C., M.S. [address] [place] [phone] 09/24/2024 2:30 PM CDT Office Visit Section of Infectious Diseases in [place], [place] [address] [place] [phone] Julio Soto M.D. [address] [place] [phone] documented as of this encounter Visit Diagnoses Diagnosis Residential Antibiotic Treatment- Primary documented in this encounter Additional Health Concerns Infection Onset Date Last Indicated Resolved Time Protective Environment 09/20/2022 09/20/202208/30 5:23 AM CDT Assessment Noted Time PHQ-9 Depression Total Score: 6 07/17/19 20 10:26 AM WOODWORKING CRAFTSMAN documented as of this encounter Care Teams Surgical Garment Assembler Relationship Specialty Start Date End Date Elsewhere, Pcp PCP - General Event Crew Technician 06/27/19 documented as of this encounter
[2024-09-18 11:30] VITALS: BP 128/67; PULSE 60; RESP 18; TEMP 36.4; O2SAT 93; BMI 22.5
--- OUTSIDE RECORDS SUMMARY | 2024-09-18 11:30 | XMS_ITS | Encounter Summary ---
Author Organization [facility] Address [address] [place] [address] Care Team Providers Care Table Games Supervisor Name Role Phone Elsewhere, Pcp Primary Care Provider Unavailabl e Encounter Details Date Type Department Care Team (Late st Contact Info) Description 07/29/2024 Orders Only Department of Cardiovascular Medicine in [place], [place] [address] [place] [address] Trudy Padilla, Jose. [address] [place] [phone] Social History Tobacco Use Types Packs/Day Years Used Date Smoking Tobacco: Never Smokeless Tobacco: Never Alcohol Use Standard Drinks/Week Comments Never 0 (1 standard drink = 0.6 oz pur e alcohol) [facility] Utilities Answer Date Recorded In the past 12 months has [facility] [employer], gas, oil, or water [employer] threatened to shut off services in your [...] How often do you attend faith or hindu serv ices? Never 06/30/2021 Do [...] living situation today? I have a [facility] place to live 07/19/2024 Education Answer Date Recorded What is the highest level of school you have completed or the highest degree you have received? Professional school degree (e.g., MD, DDS, DVM, GRACIELA) 06/30/2021 Sex and Gender Information Value Date Recorded Sex Assigned at Male 06/30/2021 12:19 PM DIRECTOR SANITATION BUREAU Legal Sex Male 7:31 AM CDT Gender Identity Male 06/30/2021 12:19 PM DIRECTOR SANITATION BUREAU Sexual Orientation Straight 06/30/2021 12 :19 PM DIRECTOR SANITATION BUREAU documented as of this encounter Functional Status [...] 7:45 AM CDT Appointment Department of Radiology, [facility] in [place], [place] [address] [place] [phone] Julio Soto M.D. [address] [place] [phone] 09/24/2024 9:30 AM CDT Diagnostic Division of Pulmonary Medicine in [place], [place] [address] [place] [phone] Marilu Castaneda P.A.-C., M.S. [address] [place] [phone] 09/24/2024 10:40 AM CDT Appointment Department of Laboratory Medicine and Pathology, [facility] in [place], [place] [address] [place] [phone] Marilu Castaneda P.A.-C., M.S. [address] [place] [phone] 09/24/2024 2:30 PM CDT Office Visit Section of Infectious Diseases in [place], [place] [address] [place] [address] Julio Soto M.D. [address] [place] [phone] documented as of this encounter Visit Diagnoses Not on filedocumented in this encounter Additional Health Concerns Infection Onset Date Last Indicated Resolved Time Protective Environment 09/20/2022 09/20/202208/30 5:23 AM CDT Assessment Noted Time PHQ-9 Depression Total Score: 6 07/17/19 20 10:26 AM DIRECTOR SANITATION BUREAU documented as of this encounter Care Teams Table Games Supervisor Relationship Specialty Start Date End Date Elsewhere, Pcp PCP - General Gas Stove Servicer Helper 06/27/19 documented as of this encounter
--- OUTSIDE RECORDS SUMMARY | 2024-09-18 11:30 | XMS_ITS | Encounter Summary ---
Author Organization [facility] Address [address] [place] [address] Care Team Providers Care Engineer Rf Deployment Name Role Phone Elsewhere, Pcp Primary Care Provider Unavailabl e Reason for Visit * Reason Onset Date Comments Posaconazole Rx 07/12/2024 Encounter Details Date Type Department Care Team (Latest Contact Info) Description 07/12/2024 Clinical Communication Division of Pulmonary Medicine in [place], [place] [address] [place] [phone] Lauren Echeverria M.D. [address] [place] [phone] Posaconazole Rx Social History Tobacco Use Types Packs/Day Years Used Date Smoking Tobacco: Never Smokeless Tobacco: Never Alcohol Use Standard Drinks/Week Comments Never 0 (1 standard drink = 0.6 oz pur e alcohol) [facility] Utilities Answer Date Recorded In the past [...] How often do you attend restorationist or cheondoism serv ices? Never 06/30/2021 Do [...] heating? Not hard at all 06/30/2021 [facility] Occupat ional Health - Occupational [...] your living situation today? I have a [facility] place to live 07/19/2024 Education Answer Date Recorded What is the highest level of school you have completed or the highest degree you have received? Professional school degree (e.g., , DDS, DVM, GRACIELA) 06/30/2021 Sex and Gender Information Value Date Recorded Sex Assigned at Male 06/30/2021 12:19 PM NETWORK ANALYST Legal Sex Male 7:31 AM CDT Gender Identity Male 06/30/2021 12:19 PM NETWORK ANALYST Sexual Orientation Straight 06/30/2021 12 :19 PM NETWORK ANALYST documented as of this encounter Functional [...] Mensah M.S.W., Jing. documented in this encounter Miscellaneous Notes * Telephone Encounter - Shavonne Lindquist - 07/12/2024 11:29 AM CST Liliya Caller: Keith from [facility] [phone] Message: Keith tried to page Dr. Prachi Pena regarding Posaconazole Rx. Patient's insuranceprefers fluconazole instead. Patient would like to pick it up by tomorrow at [facility]. Can you connect with Dr. Av Pena to make that happen? Thank you, Shavonne ORK ANALYST documented in this encounter Plan of Treatment Upcoming Encounters Date Type Department Care Team (Late st Contact Info) Description 09/24/2024 7:45 AM CDT Appointment Department of Radiology, [facility], in [place], [place] [address] [place] [address] Julio Soto M.D. [address] [place] [phone] 09/24/2024 9:30 AM CDT Diagnostic Division of Pulmonary Medicine in [place], [place] [address] [place] [address] Marilu Castaneda P.A.-C., M.S. [address] [place] [phone] 09/24/2024 10:40 AM CDT Appointment Department of Laboratory Medicine and Pathology, [facility] in [place], [place] [address] [place] [address] Marilu Castaneda P.A.-C., M.S. [address] [place] [phone] 09/24/2024 2:30 PM CDT Office Visit Section of Infectious Diseases in [place], [place] [address] [place] [phone] Julio Soto M.D. [address] [place] [phone] documented as of this encounter Visit Diagnoses Not on filedocumented in this encounter Additional Health Concerns Infection Onset Date Last Indicated Resolved Time Protective Environment 09/20/2022 09/20/202208/30 5:23 AM CDT Assessment Noted Time PHQ-9 Depression Total Score: 6 07/17/19 20 10:26 AM NETWORK ANALYST documented as of this encounter Care Teams Engineer Rf Deployment Relationship Specialty Start Date End Date Elsewhere, Pcp PCP - General Second Vp Hr Assessment 06/27/19 documented as of this encounter
--- OUTSIDE RECORDS SUMMARY | 2024-09-18 11:30 | XMS_ITS | Encounter Summary ---
Author Organization [facility] Address [address] [place] [address] Care Team Providers Care Scarfer Name Role Phone Elsewhere, Pcp Primary Care Provider Unavailabl e Encounter Details Date Type Department Care Team (Late st Contact Info) Description 08/02/2024 Orders Only Department of Oncology in [place], [place] [address] [place] [address] Birdie Hutrado M.D. [address] [place] [phone] Social History Tobacco Use Types Packs/Day Years Used Date Smoking Tobacco: Never Smokeless Tobacco: Never Alcohol Use Standard Drinks/Week Comments Never 0 (1 standard drink = 0.6 oz pur e alcohol) [facility] Utilities Answer Date Recorded In the past 12 months has [facility] [employer], gas, oil, or water [employer] threatened to shut off services in your [...] often do you attend oriental orthodox or hindu serv ices? Never 06/30/2021 Do [...] Not hard at all 06/30/2021 [facility] of Occupat ional Health - Occupational Stress [...] your living situation today? I have a [facility] place to live 07/19/2024 Education Answer Date Recorded What is the highest level of school you have completed or the highest degree you have received? Professional school degree (e.g., MD, DDS, DVM, GRACIELA) 06/30/2021 Sex and Gender Information Value Date Recorded Sex Assigned at Male 06/30/2021 12:19 PM POWER LINE INSTALLER AND REPAIRER Legal Sex Male 7:31 AM CDT Gender Identity Male 06/30/2021 12:19 PM POWER LINE INSTALLER AND REPAIRER Sexual Orientation Straight 06/30/2021 12 :19 PM POWER LINE INSTALLER AND REPAIRER documented as of this encounter Functional Status [...] AM CDT Appointment Department of Radiology, [facility] in [place], [place] [address] [place] [phone] Julio Soto M.D. [address] [place] [phone] 09/24/2024 9:30 AM CDT Diagnostic Division of Pulmonary Medicine in [place], [place] [address] [place] [phone] Marilu Castaneda P.A.-C., M.S. [address] [place] [phone] 09/24/2024 10:40 AM CDT Appointment Department of Laboratory Medicine and Pathology, [facility] in [place], [place] [address] [place] [phone] Marilu Castaneda P.A.-C., M.S. [address] [place] [phone] 09/24/2024 2:30 PM CDT Office Visit Section of Infectious Diseases in [place], [place] [address] [place] [address] Julio Soto M.D. [address] [place] [phone] documented as of this encounter Visit Diagnoses Not on filedocumented in this encounter Additional Health Concerns Infection Onset Date Last Indicated Resolved Time Protective Environment 09/20/2022 09/20/202208/30 5:23 AM CDT Assessment Noted Time PHQ-9 Depression Total Score: 6 07/17/19 20 10:26 AM POWER LINE INSTALLER AND REPAIRER documented as of this encounter Care Teams Scarfer Relationship Specialty Start Date End Date Elsewhere, Pcp PCP - General Audiovisual Technician 06/27/19 documented as of this encounter
--- OUTSIDE RECORDS SUMMARY | 2024-09-18 11:30 | XMS_ITS | Encounter Summary ---
Author Organization [facility] Address [address] [place] [address] Care Team Providers Care Beamer Operator Name Role Phone Elsewhere, Pcp Primary Care Provider Unavailabl e Reason for Referral * Outpatient (Routine) - Authorized Specialty Diagnoses / Procedures Referred By Contac t Referred To Contact Infectious Diseases Julio Soto M.D. 200 [place] [address] Phone: tel: fax: [facility] Referral ID Status Reason Start Date Expiration Date V isits Requested Visits Authorized [id number] Authorized 08/13/2024 02/12/2026 1 1 * MRI/CAT/PET Scan (Routine) - Authorized Specialty Diagnoses / Procedures Referred By Contac t Referred To Contact Radiology Diagnoses Aspergillosis (HCC) Procedures CT Chest without IV Contrast Julio Soto M.D. 200 [place] [address] Phone: tel: fax: [facility] Referral ID Status Reason Start Date Expiration Date V isits Requested Visits Authorized [id number] Authorized 08/13/2024 11/13/2025 1 1 Reason for Visit * Outpatient (Routine) - Closed Specialty Diagnoses / Procedures Referred By Oliverio akers Referred To Contact Infectious Diseases Diagnoses Pneumonia Catherine Garcia M.D. [address] [place] [address] Phone: tel: fax: [facility] Referral ID Status Reason Start Date Expiration Date Visits Re quested Visits Authorized [id number] Closed 07/04/2024 01/03/2026 1 1 Encounter Details Date Type Department Care Team (Latest Contact Info) Description 08/13/2024 3:00 PM CDT Office Visit Section of Infectious Diseases in [place], [place] [address] [place] [phone] Catherine Garcia M.D. [address] [place] [phone] Julio Soto M.D. [address] [place] [phone] Aspergillosis (HCC) (Primary Dx); Pneumonia Social History Tobacco Use Types Packs/Day Years Used Date Smoking Tobacco: Never Smokeless Tobacco: Never Tobacco Cessation:Counseling Given: Not Answered Alcohol Use Standard Drinks/Week Comments Never 0 (1 standard drink = 0.6 oz pur e alcohol) [facility] Utilities Answer Date Recorded In the past 12 months has [facility] [employer], [employer], or water [employer] threatened to shut off services in [...] How often do you attend alevism or rastafarian serv ices? Never 06/30/2021 Do [...] and heating? Not hard at all 06/30/2021 [facility] of Occupat ional Health [...] your living situation today? I have a [facility] place to live 07/19/2024 Education Answer Date Recorded What is the highest level of school you have completed or the highest degree you have received? Professional school degree (e.g., MD, DDS, DVM, GRACIELA) 06/30/2021 Sex and Gender Information Value Date Recorded Sex Assigned at Male 06/30/2021 12:19 PM ROLL BUILDER Legal Sex Male 7:31 AM CDT Gender Identity Male 06/30/2021 12:19 PM ROLL BUILDER Sexual Orientation Straight 06/30/2021 12 :19 PM ROLL BUILDER documented as of this encounter Last Filed [...] Body Mass Index 22.82 07/20/2024 2:57 PM ROLL BUILDER documented in this encounter Functional Status * [...] Post hospitalization follow-up HISTORY OF PRESENT ILLNESS Chad Jensen is a 78 y.o. 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 The patient was evaluated by [facility] team in June-early July 2024 - please [...] and steroids. Patient was then transferred to [facility] on 07/01/2024. 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 The patient will meet with his plow shaker/oncologist locally next week -an alternative option would be changing posaconazole to isavuconazole. The duration of antifungal therapy remains open-ended - if the patient were to be on acalabrutinib long-term, we might need long-term secondary prophylaxis. Follow-up in ID clinic 6 weeks from now, with CT chest without contrast Julio Zavaleta M.D. Infectious Diseases Pager: [phone] documented in this encounter Plan of Treatment Upcoming Encounters Date Type Department Care Team (Late st Contact Info) Description 09/24/2024 7:45 AM CDT Appointment Department of Radiology, [facility], in [place], [place] [address] [place] [phone] Julio Soto M.D. [address] [place] [phone] 09/24/2024 9:30 AM CDT Diagnostic Division of Pulmonary Medicine in [place], [place] [address] [place] [address] Marilu Castaneda P.A.-C., M.S. [address] [place] [phone] 09/24/2024 10:40 AM CDT Appointment Department of Laboratory Medicine and Pathology, [facility] in [place], [place] [address] [place] [address] Marilu Castaneda P.A.-C., M.S. [address] [place] [phone] 09/24/2024 2:30 PM CDT Office Visit Section of Infectious Diseases in [place], [place] [address] [place] [phone] Julio Soto M.D. [address] [place] [phone] Scheduled Orders Name Type Priority Associated Diagnoses [...] Total Score: 6 07/17/19 20 10:26 AM ROLL BUILDER documented as of this encounter Care Teams Beamer Operator Relationship Specialty Start Date End Date Elsewhere, Pcp PCP - General Engineering Lab Technician 06/27/19 documented as of this encounter
--- OUTSIDE RECORDS SUMMARY | 2024-09-18 11:30 | XMS_ITS | Encounter Summary ---
Author Organization [facility] Address [address] [place] [address] Care Team Providers Care Business Mgr Name Role Phone Elsewhere, Pcp Primary Care Provider Unavailabl e Reason for Visit * Reason Onset Date Comments Rx Prior Authorization 07/11/2024 posaconaz ole (NoxafiL) [address] tablet Encounter Details Date Type Department Care Team (Latest Contact Info) Description 07/11/2024 Clinical Communication Division of Community Internal Medicine, [facility] [place], [place] [address] [place] [phone] Lauren Echeverria M.D. [address] [place] [phone] Rx Prior Authorization (posaconazole (NoxafiL) [address] tablet) Social History Tobacco Use Types Packs/Day Years Used Date Smoking Tobacco: Never Smokeless Tobacco: Never Alcohol Use Standard Drinks/Week Comments Never 0 (1 standard drink = 0.6 oz pur e alcohol) [facility] Utilities Answer Date Recorded In the [...] How often do you attend worship or gnosticism serv ices? Never 06/30/2021 Do [...] and heating? Not hard at all 06/30/2021 [facility] of Occupat ional Health - Occupational Stress [...] your living situation today? I have a [facility] place to live 07/19/2024 Education Answer Date Recorded What is the highest level of school you have completed or the highest degree you have received? Professional school degree (e.g., MD, DDS, DVM, GRACIELA) 06/30/2021 Sex and Gender Information Value Date Recorded Sex Assigned at Male 06/30/2021 12:19 PM CRNA Legal Sex Male 7:31 AM CDT Gender Identity Male 06/30/2021 12:19 PM CRNA Sexual Orientation Straight 06/30/2021 12 :19 PM CRNA documented as of this encounter Functional Status * Are you deaf or do you have serious difficulty hearing? Answer Date of Assessment Author No 07/01/2024 10:08 AM Cheryl Mensah, M.S.W., L.G.S.W. * Are you blind or [...] Date Type Department Care Team (Late st [facility] Info) Description 09/24/2024 7:45 AM CDT Appointment Department of Radiology, [facility] in [place], [place] [address] [place] [address] Julio Soto M.D. 200 [place] [phone] 09/24/2024 9:30 AM CDT Diagnostic Division of Pulmonary Medicine in [place], [place] [address] [place] [phone] Marilu Castaneda P.A.-C., M.S. [address] [place] [phone] 09/24/2024 10:40 AM CDT Appointment Department of Laboratory Medicine and Pathology, [facility] in [place], [place] [address] [place] [address] Marilu Castaneda P.A.-C., M.S. [address] [place] [phone] 09/24/2024 2:30 PM CDT Office Visit Section of Infectious Diseases in [place], [place] [address] [place] [phone] Julio Soto M.D. [address] [place] [phone] documented as of this encounter Visit Diagnoses Not on filedocumented in this encounter Additional Health Concerns Infection Onset Date Last Indicated Resolved Time Protective Environment 09/20/2022 09/20/202208/30 5:23 AM CDT Assessment Noted Time PHQ-9 Depression Total Score: 6 07/17/19 20 10:26 AM CRNA documented as of this encounter Care Teams Business Mgr Relationship Specialty Start Date End Date Elsewhere, Pcp PCP - General Train Starter 06/27/19 documented as of this encounter
--- OUTSIDE RECORDS SUMMARY | 2024-09-18 11:30 | XMS_ITS | Encounter Summary ---
Author Organization [facility] Address [address] [place] [address] Care Team Providers Care Acquisition Professional Name Role Phone Elsewhere, Pcp Primary Care Provider Unavailabl e Reason for Visit * Reason Onset Date Comments release med to pharmacy 07/30/2024 Encounter Details Date Type Department Care Team (Latest Contact Info) Description 07/30/2024 Clinical Communication Department of Cardiovascular Medicine in [place], [place] [address] [place] [phone] Trudy Padilla, Jose. [address] [place] [phone] release med to pharmacy Social History Tobacco Use Types Packs/Day Years Used Date Smoking Tobacco: Never Smokeless Tobacco: Never Alcohol Use Standard Drinks/Week Comments Never 0 (1 standard drink = 0.6 oz pur e alcohol) [facility] Utilities Answer Date Recorded In [...] How often do you attend rastafarian or samaritan serv ices? Never 06/30/2021 Do [...] and heating? Not hard at all 06/30/2021 [facility] of Occupat ional Health - Occupational Stress [...] situation today? I have a [facility] place to live 07/19/2024 Education Answer Date Recorded What is the highest level of school you have completed or the highest degree you have received? Professional school degree (e.g., , DDS, DVM, GRACIELA) 06/30/2021 Sex and Gender Information Value Date Recorded Sex Assigned at Male 06/30/2021 12:19 PM BLOCK SAWYER Legal Sex Male 7:31 AM CDT Gender Identity Male 06/30/2021 12:19 PM BLOCK SAWYER Sexual Orientation Straight 06/30/2021 12 :19 PM BLOCK SAWYER documented as of this encounter Functional Status [...] of Radiology, [facility] in [place], [place] [address] [place] [phone] Julio Soto M.D. [address] [place] [phone] 09/24/2024 9:30 AM CDT Diagnostic Division of Pulmonary Medicine in [place], [place] [address] [place] [phone] Marilu Castaneda P.A.-Nikki., M.S. [address] [place] [phone] 09/24/2024 10:40 AM CDT Appointment Department of Laboratory Medicine and Pathology, [facility] in [place], [place] [address] [place] [phone] Marilu Castaneda P.A.-C., M.S. [address] [place] [phone] 09/24/2024 2:30 PM CDT Office Visit Section of Infectious Diseases in [place], [place] [address] [place] [phone] Julio Soto M.D. [address] [place] [phone] documented as of this encounter Visit Diagnoses Not on filedocumented in this encounter Additional Health Concerns Infection Onset Date Last Indicated Resolved Time Protective Environment 09/20/2022 09/20/202208/30 5:23 AM CDT Assessment Noted Time PHQ-9 Depression Total Score: 6 07/17/19 20 10:26 AM BLOCK SAWYER documented as of this encounter Care Teams Acquisition Professional Relationship Specialty Start Date End Date Elsewhere, Pcp PCP - General International Representative 06/27/19 documented as of this encounter
--- OUTSIDE RECORDS SUMMARY | 2024-09-18 11:30 | XMS_ITS | Encounter Summary ---
Author Organization [facility] Address [address] [place] [address] Care Team Providers Care Volunteer Fire Fighter Name Role Phone Elsewhere, Pcp Primary Care Provider Unavailabl e Reason for Referral * Medication Prior Authorization - Closed Specialty Diagnoses / Procedures Referred By Contgregory t Referred To Contact Diagnoses Acute Pulmonary Histoplasmosis Capsulati (HCC) Vanessa Brown P.A.-C. [address] [place] [address] Phone: tel: fax: Referral ID Status Reason Start Date Expiration Date Visits Re quested Visits Authorized [id number] Closed 1 1 BATCHER Encounter Details Date Type Department Care Team (Latest Contact Info) Description 07/31/2024 Orders Only Department of Cardiovascular Medicine in [place], [place] [address] [place] [phone] Vanessa Brown P.A.-C. [address] [place] [phone] Acute Pulmonary Histoplasmosis Capsulati (HCC) Social History Tobacco Use Types Packs/Day Years Used Date Smoking Tobacco: Never Smokeless Tobacco: Never Alcohol Use Standard Drinks/Week Comments Never 0 (1 standard drink = 0.6 oz pur e alcohol) [facility] Utilities Answer Date Recorded [...] How often do you attend islam or orthodox serv ices? Never 06/30/2021 Do [...] and heating? Not hard at all 06/30/2021 [facility] of Occupat ional Health - Occupational Stress [...] your living situation today? I have a [facility] place to live 07/19/2024 Education Answer Date Recorded What is the highest level of school you have completed or the highest degree you have received? Professional school degree (e.g., , VICTOR HUGOS, DVM, GRACIELA) 06/30/2021 Sex and Gender Information Value Date Recorded Sex Assigned at Male 06/30/2021 12:19 PM HEAD BATCHER Legal Sex Male 7:31 AM CDT Gender Identity Male 06/30/2021 12:19 PM HEAD BATCHER Sexual Orientation Straight 06/30/2021 12 :19 PM HEAD BATCHER documented as of this encounter Functional Status [...] CDT Appointment Department of Radiology, [facility], in [place], [place] [address] [place] [address] Julio Soto M.D. [address] [place] [phone] 09/24/2024 9:30 AM CDT Diagnostic Division of Pulmonary Medicine in [place], [place] [address] [place] [phone] Marilu Castaneda P.A.-C., M.S. [address] [place] [phone] 09/24/2024 10:40 AM CDT Appointment Department of Laboratory [facility], [facility] [place], [place] [address] [place] [address] aMrilu Castaneda P.A.-C., M.S. [address] [place] [phone] 09/24/2024 2:30 PM CDT Office Visit Section of Infectious Diseases in [place], [place] [address] [place] [phone] Julio Soto M.D. [address] [place] [phone] documented as of this encounter Visit Diagnoses Diagnosis Acute Pulmonary Histoplasmosis Capsulati (HCC) documented in this encounter Additional Health Concerns Infection Onset Date Last Indicated Resolved Time Protective Environment 09/20/2022 09/20/202208/30 5:23 AM CDT Assessment Noted Time PHQ-9 Depression Total Score: 6 07/17/19 20 10:26 AM HEAD BATCHER documented as of this encounter Care Teams Volunteer Fire Fighter Relationship Specialty Start Date End Date Elsewhere, Pcp PCP - General Wheelchair Rental Clerk 06/27/19 documented as of this encounter
--- OUTSIDE RECORDS SUMMARY | 2024-09-18 11:30 | XMS_ITS | Encounter Summary ---
Author Organization [facility] Address [address] [place] [address] Care Team Providers Care Customer Service Advisor Name Role Phone Elsewhere, Pcp Primary Care Provider Unavailabl e Encounter Details Date Type Department Care Team (Late st Contact Info) Description 08/02/2024 Orders Only Department of Cardiovascular Medicine in [place], [place] [address] [place] [address] Trudy Padilla, Jose. [address] [place] [phone] Social History Tobacco Use Types Packs/Day Years Used Date Smoking Tobacco: Never Smokeless Tobacco: Never Alcohol Use Standard Drinks/Week Comments Never 0 (1 standard drink = 0.6 oz pur e alcohol) [facility] Utilities Answer Date Recorded In the past 12 months has [facility] [place], gas, oil, or water [employer] threatened to shut off services in your [...] often do you attend oriental orthodox or muslim serv ices? Never 06/30/2021 Do [...] and heating? Not hard at all 06/30/2021 [facility] of Occupat ional Health - [...] your living situation today? I have a [facility] place to live 07/19/2024 Education Answer Date Recorded What is the highest level of school you have completed or the highest degree you have received? Professional school degree (e.g., MD, DDS, DVM, GRACIELA) 06/30/2021 Sex and Gender Information Value Date Recorded Sex Assigned at Male 06/30/2021 12:19 PM CONFIGURATION MANAGEMENT ARCHITECT Legal Sex Male 7:31 AM CDT Gender Identity Male 06/30/2021 12:19 PM CONFIGURATION MANAGEMENT ARCHITECT Sexual Orientation Straight 06/30/2021 12 :19 PM CONFIGURATION MANAGEMENT ARCHITECT documented as of this encounter Functional Status [...] AM CDT Appointment Department of Radiology, [facility] in [place], [place] [address] [place] [phone] Julio Soto M.D. [address] [place] [phone] 09/24/2024 9:30 AM CDT Diagnostic Division of Pulmonary Medicine in [place], [place] [address] [place] [phone] Marilu Castaneda P.A.-C., M.S. [address] [place] [phone] 09/24/2024 10:40 AM CDT Appointment Department of Laboratory Medicine and Pathology, [facility] in [place], [place] [address] [place] [phone] Marilu Castaneda P.A.-C., M.S. [address] [place] [phone] 09/24/2024 2:30 PM CDT Office Visit Section of Infectious Diseases in [place], [place] [address] [place] [address] Julio Soto M.D. [address] [place] [phone] documented as of this encounter Visit Diagnoses Not on filedocumented in this encounter Additional Health Concerns Infection Onset Date Last Indicated Resolved Time Protective Environment 09/20/2022 09/20/202208/30 5:23 AM CDT Assessment Noted Time PHQ-9 Depression Total Score: 6 07/17/19 20 10:26 AM CONFIGURATION MANAGEMENT ARCHITECT documented as of this encounter Care Teams Customer Service Advisor Relationship Specialty Start Date End Date Elsewhere, Pcp PCP - General Oxygen Tank Filler 06/27/19 documented as of this encounter
--- OUTSIDE RECORDS SUMMARY | 2024-09-18 11:30 | XMS_ITS | Encounter Summary ---
Author Organization [facility] Address [address] [place] [address] Care Team Providers Care Warm In Name Role Phone Elsewhere, Pcp Primary Care Provider Unavailabl e Reason for Visit * Reason Onset Date Comments Rx Denial 07/13/[address] tablet Encounter Details Date Type Department Care Team (Latest Contact Info) Description 07/13/2024 Clinical Communication Division of Community Internal Medicine, [facility], in [place], [place] [address] [place] [phone] Lauren Echeverria M.D. [address] [place] [phone] Rx Denial (Posaconazole 100MG dr tablet) Social History Tobacco Use Types Packs/Day Years Used Date Smoking Tobacco: Never Smokeless Tobacco: Never Alcohol Use Standard Drinks/Week Comments Never 0 (1 standard drink = 0.6 oz pur e alcohol) [facility] Utilities Answer Date Recorded In the past 12 months has e [employer], gas, oil, or water company threatened to [...] week 06/30/2021 How often do you attend mormonism or methodist serv ices? Never 06/30/2021 Do you belong to any clubs o r organizations such as mormonism groups, unions, fraternal or athletic groups, or [...] and heating? Not hard at all 06/30/2021 [facility] [place] of Occupat ional Health - [...] Sex Assigned at Male 06/30/2021 12:19 PM PUG MILL OPERATOR HELPER Legal Sex Male 7:31 AM CDT Gender Identity Male 06/30/2021 12:19 PM PUG MILL OPERATOR HELPER Sexual Orientation Straight 06/30/2021 12 :19 PM PUG MILL OPERATOR HELPER documented as of this encounter Functional Status * Are you deaf or do you have serious difficulty hearing? Answer Date of Assessment Author No 07/01/2024 10:08 AM Cheryl Mensah M.S.Kathrine, Aaron.S.W. * Are you blind or do you have serious difficulty seeing, even when wearing glasses? Answer Date of Assessment Author No 07/01/2024 10:08 AM Cheryl Mensah MAric, Crow * Do you have serious difficulty walking [...] CDT Appointment Department of Radiology, [facility] in [place], [place] [address] [place] [phone] Julio Soto M.D. [address] [place] [phone] 09/24/2024 9:30 AM CDT Diagnostic Division of Pulmonary Medicine in [place], [place] [address] [place] [phone] Marilu Castaneda P.A.-C., M.S. [address] [place] [phone] 09/24/2024 10:40 AM CDT Appointment Department of Laboratory Medicine and Pathology, [facility] in [place], [place] [address] [place] [phone] Marilu Castaneda P.A.-C., M.S. [address] [place] [phone] 09/24/2024 2:30 PM CDT Office Visit Section of Infectious Diseases in [place], [place] [address] [place] [phone] Julio Soto M.D. [address] [place] [phone] documented as of this encounter Visit Diagnoses Not on filedocumented in this encounter Additional Health Concerns Infection Onset Date Last Indicated Resolved Time Protective Environment 09/20/2022 09/20/202208/30 5:23 AM CDT Assessment Noted Time PHQ-9 Depression Total Score: 6 07/17/19 20 10:26 AM PUG MILL OPERATOR HELPER documented as of this encounter Care Teams Warm In Relationship Specialty Start Date End Date Elsewhere, Pcp PCP - General Edge Cutting Machine Operator 06/27/19 documented as of this encounter
--- OUTSIDE RECORDS SUMMARY | 2024-09-18 11:30 | XMS_ITS | Encounter Summary ---
Author Organization [facility] Address [address] [place] [address] Care Team Providers Care Support Representative Name Role Phone Elsewhere, Pcp Primary Care Provider Unavailabl e Reason for Visit * Reason Onset Date Comments REDO quantity for RX 07/31/2024 Encounter Details Date Type Department Care Team (Latest Contact Info) Description 07/31/2024 Clinical Communication Department of Cardiovascular Medicine in [place], [place] [address] [place] [phone] Trudy Padilla, PAlexi-C. [address] [place] [phone] [facility]O quantity for RX Social History Tobacco Use Types Packs/Day Years Used Date Smoking Tobacco: Never Smokeless Tobacco: Never Alcohol Use Standard Drinks/Week Comments Never 0 (1 standard drink = 0.6 oz pur e alcohol) [facility] Utilities Answer Date Recorded In the [...] week 06/30/2021 How often do you attend latter-day or congregational serv ices? Never 06/30/2021 Do you belong to any clubs o r organizations such as latter-day groups, unions, fraternal or athletic groups, or [...] heating? Not hard at all 06/30/2021 [facility] of Occupat ional Health - Occupational Stress [...] [facility] place [facility] 07/19/2024 Education Answer Date Recorded What is the highest level of school you have completed or the highest degree you have received? Professional school degree (e.g., , DDS, DVM, GRACIELA) 06/30/2021 Sex and Gender Information Value Date Recorded Sex Assigned at Male 06/30/2021 12:19 PM DADO OPERATOR Legal Sex Male 7:31 AM CDT Gender Identity Male 06/30/2021 12:19 PM DADO OPERATOR Sexual Orientation Straight 06/30/2021 12 :19 PM DADO OPERATOR documented as of this encounter Functional [...] 7:45 AM CDT Appointment Department of Radiology, [facility] in [place], [place] [address] [place] [phone] Julio Soto M.D. [address] [place] [phone] 09/24/2024 9:30 AM CDT Diagnostic Division of Pulmonary Medicine in [place], [place] [address] [place] [phone] Marilu Castaneda P.A.-Nikki., M.S. [address] [place] [phone] 09/24/2024 10:40 AM CDT Appointment Department of Laboratory Medicine and Pathology, [facility] in [place], [place] [address] [place] [phone] Marilu Castaneda P.A.-C., M.S. [address] [place] [phone] 09/24/2024 2:30 PM CDT Office Visit Section of Infectious Diseases in [place], [place] [address] [place] [phone] Julio Soto M.D. [address] [place] [phone] documented as of this encounter Visit Diagnoses Not on filedocumented in this encounter Additional Health Concerns Infection Onset Date Last Indicated Resolved Time Protective Environment 09/20/2022 09/20/202208/30 5:23 AM CDT Assessment Noted Time PHQ-9 Depression Total Score: 6 07/17/19 20 10:26 AM DADO OPERATOR documented as of this encounter Care Teams Support Representative Relationship Specialty Start Date End Date Elsewhere, Pcp PCP - General Manager Chinese 06/27/19 documented as of this encounter
--- OUTSIDE RECORDS SUMMARY | 2024-09-18 11:30 | XMS_ITS | Encounter Summary ---
Author Organization [facility] Address [address] [place] [address] Care Team Providers Care Digital Marketing Lead Name Role Phone Elsewhere, Pcp Primary Care Provider Unavailabl e Encounter Details Date Type Department Care Team (Latest Contact Info) Description 07/20/2024 Clinical Communication Department of Cardiovascular Medicine in [place], [place] [address] [place] [address] Guerda Carias [address] [place] [phone] Social History Tobacco Use Types Packs/Day Years Used Date Smoking Tobacco: Never Smokeless Tobacco: Never Alcohol Use Standard Drinks/Week Comments Never 0 (1 standard drink = 0.6 oz pur e alcohol) [facility] Utilities Answer Date Recorded In the past 12 months has [facility] [employer], gas, oil, or water [employer] threatened to shut off services in your [...] How often do you attend faith or adventism serv ices? Never 06/30/2021 Do [...] your living situation today? I have a [facility] place to live 07/19/2024 Education Answer Date Recorded What is the highest level of school you have completed or the highest degree you have received? Professional school degree (e.g., MD, DDS, DVM, GRACIELA) 06/30/2021 Sex and Gender Information Value Date Recorded Sex Assigned at Male 06/30/2021 12:19 PM PBX TECHNICIAN Legal Sex Male 7:31 AM CDT Gender Identity Male 06/30/2021 12:19 PM PBX TECHNICIAN Sexual Orientation Straight 06/30/2021 12 :19 PM PBX TECHNICIAN documented as of this encounter Functional [...] CDT Appointment Department of Radiology, [facility] in [place], [place] [address] [place] [phone] Julio Soto M.D. [address] [place] [phone] 09/24/2024 9:30 AM CDT Diagnostic Division of Pulmonary Medicine in [place], [place] [address] [place] [phone] Marilu Castaneda P.A.-C., M.S. [address] [place] [phone] 09/24/2024 10:40 AM CDT Appointment Department of Laboratory Medicine and Pathology, [facility] in [place], [place] [address] [place] [phone] Marilu Castaneda P.A.-C., M.S. [address] [place] [phone] 09/24/2024 2:30 PM CDT Office Visit Section of Infectious Diseases in [place], [place] [address] [place] [phone] Julio Soto M.D. [address] [place] [phone] documented as of this encounter Visit Diagnoses Not on filedocumented in this encounter Additional Health Concerns Infection Onset Date Last Indicated Resolved Time Protective Environment 09/20/2022 09/20/202208/30 5:23 AM CDT Assessment Noted Time PHQ-9 Depression Total Score: 6 07/17/19 20 10:26 AM PBX TECHNICIAN documented as of this encounter Care Teams Digital Marketing Lead Relationship Specialty Start Date End Date Elsewhere, Pcp PCP - General Train Braker 06/27/19 documented as of this encounter
--- NOTE | 2024-09-18 11:58 | CRLHL7_ITS ---
For Patients: As a result of the Century Cures Act, medical imaging exams and procedure reports are released immediately into your electronic medical record. You may view this report before your referring provider. If you have questions, please contact your health care provider. INDICATION: Shortness of breath. TECHNIQUE: Chest 2 views. COMPARISON: September 11, 2024. FINDINGS: Cardiovascular and mediastinum: Cardiomediastinal silhouette is within normal limits. Calcific atherosclerosis of the aorta. Lungs and pleural spaces: Left lower lobe consolidation. Moderate left-sided pleural effusion. The diffuse perihilar interstitial opacities. No pneumothorax. Bones and soft tissues: No significant findings. IMPRESSION: Moderate left-sided pleural effusion and likely adjacent compressive atelectasis although superimposed pneumonia or aspiration not excluded. Mild pulmonary edema. Dictated by Amparo Chang MD @ 09/18/2024 12:51:57 PM (Electronically Signed)
[2024-09-18 12:34] LABS: NT Pro B Type NatriureticPept* 3120 pg/mL
--- NOTE | 2024-09-18 12:52 | ED_ITS ---
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 Seen by Cardiology and felt to have some congestive heart failure developing, was started on 20 mg of Lasix, seen here a week ago with dose increased to 40 mg daily. At that time had a CT scan which was negative for PE, noted to have possibly some pulmonary edema and the pleural effusion on the left on CT scan. He has also developed some anemia, has had some anemia intermittently in the past, requiring transfusion, hemoglobin had been noted to drop from 10.5-8.5 last week and was 7.6 today. Had been at the [facility] and they were going to transfuse him but sent him here to evaluate for possible fluid overload prior to transfusion there. He tells me that his shortness of breath is possibly a little bit worse, he does not feel like he has really been diuresing much at home. He denies any new symptoms such as chest pain, fever, cough. He says his INR has been therapeutic, he was switched from Xarelto to Coumadin. He does not have history of DVT or PE, he has right lower extremity edema which is chronic and has been evaluated previously for DVT which has always been negative. He has not had symptoms of GI bleeding. Related Data Home Medications ?Medication ?Instructions ?Recorded ?Confirmed alprazolam 0.25 mg tablet 0.25 mg PO BID PRN 12/16/21 09/18/24 magnesium chloride 71.5 mg 71.5 mg PO QDAY 02/15/22 09/18/24 (magnesium chloride) tablet,delayed release (Slow-Mag) tamsulosin 0.4 mg capsule (Flomax) 0.4 mg PO DAILY 02/15/22 09/18/24 lisinopril 10 mg tablet 15 mg PO BID 03/03/23 09/18/24 calcium carbonate (Tums) 300 mg PO BID PRN 03/31/23 09/18/24 levothyroxine 112 mcg tablet 112 mcg PO DAILY 06/28/24 09/18/24 (Synthroid) amiodarone 100 mg tablet 200 mg PO DAILY 08/02/24 09/18/24 ferrous sulfate 324 mg (65 mg 324 mg PO Q OTHER DAY 08/02/24 09/18/24 iron) tablet,delayed release metoprolol tartrate 25 mg tablet 50 mg PO BID 08/02/24 09/18/24 posaconazole 100 mg tablet,delayed 300 mg PO QDAY 08/02/24 09/18/24 release warfarin 7.5 mg tablet 7.5 mg PO QWEEK 08/02/24 09/18/24 furosemide 20 mg tablet 40 mg PO DAILY 09/13/24 09/18/24 Previous Rx's ?Medication ?Instructions ?Recorded amlodipine 5 mg tablet 5 mg PO DAILY 30 days #30 tabs 06/18/24 Allergies Allergy/AdvReac Type Severity Reaction Status Date / Time ibrutinib (From Imbruvica) Allergy Intermediate Rash Verified 09/18/24 11:37 Penicillins Allergy Verified 09/18/24 11:37 Review of Systems Status of ROS: Reports: 10 or more systems reviewed and unremarkable except as noted in History and below [facility] Medical History Invasive aspergillosis ?B44.9 - Aspergillosis, unspecified (ICD-10) Viral pneumonia ?J12.9 - Viral pneumonia, unspecified (ICD-10) Pneumonitis ?J98.4 - Other disorders of lung (ICD-10) Immunocompromised ?D84.9 - Immunodeficiency, unspecified (ICD-10) Hypothyroid ?E03.9 - Hypothyroidism, unspecified (ICD-10) Right leg swelling ?M79.89 - Other specified soft tissue disorders (ICD-10) 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 - Malignant neoplasm of major salivary gland, unspecified (ICD-10) Anemia ?D64.9 - Anemia, unspecified (ICD-10) GERD (gastroesophageal reflux disease) ?K21.9 - Gastro-esophageal reflux disease without esophagitis (ICD-10) CAD (coronary artery disease) ?I25.10 - Atherosclerotic heart disease of [place] coronary artery without angina pectoris (ICD-10) Pulmonary nodules ?R91.8 - Other nonspecific abnormal finding of lung field (ICD-10) History of cardioversion ?Z98.890 - Other specified postprocedural states (ICD-10) CLL (chronic lymphocytic leukemia) (~08/2018) ?C91.10 - Chronic lymphocytic leukemia of B-cell type not having achieved remission (ICD-10) Malignant melanoma ?C43.9 - Malignant melanoma of skin, unspecified (ICD-10) Anxiety ?F41.9 - Anxiety disorder, unspecified (ICD-10) BPH with obstruction/lower urinary tract symptoms ?N40.1 - Benign prostatic hyperplasia with lower urinary tract symptoms (ICD- 10) ?N13.8 - Other obstructive and reflux uropathy (ICD-10) Prostate cancer ?C61 - Malignant neoplasm of prostate (ICD-10) Hypertension ?I10 - Essential (primary) hypertension (ICD-10) Paroxysmal atrial fibrillation ?I48.0 - Paroxysmal atrial fibrillation (ICD-10) Surgical History S/P mitral valve clip implantation (~2019) ?Z98.890 - Other specified postprocedural states (ICD-10) ?Z95.818 - Presence of other cardiac implants and grafts (ICD-10) History of tonsillectomy ?Z90.89 - Acquired absence of other organs (ICD-10) History of melanoma excision ?Z98.890 - Other specified postprocedural states (ICD-10) ?Z85.820 - Personal history of malignant melanoma of skin (ICD-10) History of cataract surgery ?Z98.49 - Cataract extraction status, unspecified eye (ICD-10) Hx of mitral valve repair ?Z98.890 - Other specified postprocedural states (ICD-10) Family History Other CHF (congestive heart failure) Hodgkins disease Social History Narrative: he is and here with his . He gets oncology care through [facility]. He gets primary care through [facility], Dr. Glenna Reilly. He does not smoke. He drinks 1 glass of red wine daily. Full code. Daughters are designated healthcare power of insurance defense attorney What is your current living situation?: I presently have a place to live Problems where you live: no known problems Problems where you live details: recently , they were each other's caregivers & now daughters have been staying with him periodically In the past 12 months, utilities in danger of being shut off: no In past 12 months, lack of transportation kept you from medical appts, meetings, work, or getting things needed for daily living: no In the past 12 mos, have been you worried that your food would run out before y ou had money to buy more?: never true In the past 12 mos, the food you bought just didn't last and you didn't have money to buy more?: never true Highest level of school completed/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, [employer], DVM, DDS) Smoking Status: Never smoker Do you use any of these nicotine containing products: None Second hand tobacco smoke exposure: No How often do you have a drink containing alcohol: never How often do you have six or more drinks on one occasion: Never AUDIT-C Alcohol total score: 0 Non-prescribed substance use: denies use Caffeine: No How often does anyone, including family, friends and others, physically hurt you : never How often does anyone, including family, friends and others, insult or talk down to you: never How often does anyone, including family, friends and others, threaten you with harm: never How often does anyone, including family, friends and others, scream or curse at you: never service: No Exam Narrative: Exam Narrative: Vital signs reviewed In general, alert, nontoxic elderly male. He is somewhat chronically ill- appearing. Breathing easily. Head: Normocephalic, atraumatic. Eyes: Sclera appear mildly icteric. Pupils equal and reactive. ENT: Mucous membranes moist. Neck: Supple without adenopathy. Heart: Regular rate and rhythm without murmur. Lungs: Clear. No increased work of breathing, crackles or wheezes. Abdomen: Soft, nontender to palpation. Extremities: Well perfused, pulses intact. He has some mild edema on the right, none on the left. Chronic venous stasis changes on the right. No calf tenderness. Neurologic: Alert, conversant. Speech fluent, face symmetric. Moves all extremities equally. Skin: Warm, dry well perfused. Affect: Normal. Const: Vital Signs, click to edit/add: Vital Signs - 24 hr 09/18/24 11:30 Temperature 97.5 F L Pulse Rate [Pulse Oximeter] 60 Respiratory Rate 18 Blood Pressure [Le ft Upper Arm] 128/67 Pulse Oximetry 93 Oxygen Delivery Me thod Room Air Course Course ED Course: I reviewed prior records as well as prior labs. He had labs drawn today at [facility]. His hemoglobin is 7.6, down from 8.5 last week. His white blood cell count is chronically elevated. His sodium is 131, down from 133 last week. His bilirubin is 2.4, up from 1.6, this vacillates from the mid 1s to the mid 2s chronically. Chest x-ray continues to show a small left effusion and some vascular congestion, I do not see that it has significantly changed compared to a week ago. His BNP is stable at 3120. Overall, I do not see significant changes. He is not hypoxic, his O2 sats are stable at 93%. I think it is reasonable to try transfusing him to see if that helps with his shortness of breath. He should see primary care, we can certainly continue to work on diuresis as an outpatient but I do not see a need for admission to the hospital. He is comfortable with that. He is seeing [place] next week, infectious Disease and Pulmonary. His symptoms are likely multifactorial, certainly there may be a component that is due to congestive heart failure but I am not certain that his shortness of breath is solely due to congestive heart failure. Discussed with him I think will get the anemia piece resolved, then we can have him see Pulmonary, and would like him to follow up with primary care and potentially cardiology to see how much of this might be related to congestive heart failure as well. Of course if worsening in terms of shortness of breath or any other new symptoms in the meantime, return to the emergency department. Vital Signs Vital signs: Initial Vital Signs Temperature 97.5 F L 09/18/24 11:30 Temperature Source Temporal Artery Scan 09/18/24 11:30 Pulse Rate 60 09/18/24 11:30 Respiratory Rate 18 09/18/24 11:30 Blood Pressure 128/67 09/18/24 11:30 Blood Pressure Mean 87 09/18/24 11:30 Blood Pressure Position Sitting 09/18/24 11:30 Pulse Oximetry 93 09/18/24 11:30 Oxygen Delivery Method Room Air 09/18/24 11:30 Vital Signs Temperature 97.5 F L 09/18/24 11:30 Pulse Rate 60 09/18/24 11:30 Respiratory Rate 18 09/18/24 11:30 Blood Pressure 128/67 09/18/24 11:30 Pulse Oximetry 93 09/18/24 11:30 Oxygen Delivery Method Room Air 09/18/24 11:30 Temperature 97.5 F L 09/18/24 11:30 Pulse Rate 60 09/18/24 11:30 Respiratory Rate 18 09/18/24 11:30 Blood Pressure 128/67 09/18/24 11:30 Pulse Oximetry 93 09/18/24 11:30 Oxygen Delivery Method Room Air 09/18/24 11:30 Medical Decision Making Lab Data Labs: Lab Results 09/18/24 Range/Units 10:20 NT-Pro-B Natriuret Pep 3120 pg/mL Discharge Plan Discharge Clinical Impression: Anemia, Pulmonary edema with congestive heart failure Instructions: Heart Failure (ED), Anemia (ED) Additional Instructions: Will have you over to the [facility] for transfusion today, would recommend outpatient follow-up in the next week for recheck of your shortness of breath, it may be that your heart failure diagnosis needs to be managed somewhat differently and Cardiology follow-up should be arranged. If at any time he feels significantly more short of breath or have new symptoms such as chest pain, lightheadedness or fainting, fever etcetera return to the emergency department. Prescriptions: No Action Slow-Mag 71.5 mg tablet,delayed release (DR/EC) 71.5 mg PO QDAY tamsulosin [Flomax] 0.4 mg capsule 0.4 mg PO DAILY amiodarone 100 mg tablet 200 mg PO DAILY metoprolol tartrate 25 mg tablet 50 mg PO BID calcium carbonate [Tums] 300 mg (750 mg) tablet,chewable 300 mg PO BID PRN ferrous sulfate 324 mg (65 mg iron) tablet,delayed release (DR/EC) 324 mg PO Q OTHER DAY warfarin 7.5 mg tablet 7.5 mg PO QWEEK Patient Comments: dose varies base on INR posaconazole 100 mg tablet,delayed release (DR/EC) 300 mg PO QDAY alprazolam 0.25 mg tablet 0.25 mg PO BID PRN lisinopril 10 mg tablet 15 mg PO BID furosemide 20 mg tablet 40 mg PO DAILY Rx Instructions: as directed by PA in die storage clerk (Benigno) amlodipine 5 mg Tablet 5 mg PO DAILY 30 Days Qty: 30 0RF levothyroxine [Synthroid] 112 mcg tablet 112 mcg PO DAILY Rx Instructions: Take once daily in the morning at least an hour before food or other medications. Follow Up/Referrals: GLENNA REILLY DO [Primary Care Provider] -
== END 2024-09-18 13:30 | disposition home or self-care (01) ==
LOC: ED 12:31
PROVIDERS: Emergency Provider Emergency Medicine; PCP Student in an Organized Health Care Education/Training Program
DX: D64.9 Anemia, unspecified (principal); I26.99 Other pulmonary embolism without acute cor pulmonale; I50.9 Heart failure, unspecified; R06.02 Shortness of breath
CPT/HCPCS: 36415; 71046; 83880; 99284

== ENCOUNTER 2024-09-20 15:00 | Outpatient (RCR) | payer MEDICARE, BC, SELFPAY ==
[2024-03-29 09:01] LABS: Basophils Percent Auto 0.4 % (0.0-3.0); Eosinophils Percent Auto 1.7 % (0.0-7.0); Hematocrit* 30.5 % (37.0-53.0); Hemoglobin* 9.3 gm/dL (13.5-17.5); Immature Granulocytes Pct Auto 0.2 %; Lymphocytes Percent Auto 56.2 % (20-44); Mean Corpuscular HGB Conc 31 gm/dL (32-36); Mean Corpuscular Hemoglobin 31 pg (26-34); Mean Corpuscular Volume 102 fL (80-100); Monocytes Percent Auto 10.6 % (0.0-11.0); Neutrophils Percent Auto 30.9 % (42.0-72.0); Platelet Count* 273 K/uL (140-440); RDW Coefficient of Variation % 13.8 % (11.5-15.5); Red Blood Count* 2.99 m/uL (4.30-5.90)
[2024-03-29 09:02] LABS: Albumin* 3.6 g/dL (3.3-5.0); Chloride* 97 mmol/L (96-114); Potassium* 3.7 mmol/L (3.6-5.1); Sodium* 131 mmol/L (135-149)
[2024-03-29 09:04] LABS: Bilirubin Total* 1.6 mg/dL (0.1-1.5); Est. Creatinine Clearance* 60.88; Estimated Glomerular Filt Rate 77 ml/min
[2024-03-29 09:05] LABS: Alanine Aminotransferase* 11 U/L (4-50); Alkaline Phosphatase* 68 U/L (40-150); Anion Gap 10 mEq/L (7-15); Aspartate Amino Transferase* 18 U/L (12-35); Blood Urea Nitrogen* 14 mg/dL (7-30); Calcium* 8.5 mg/dL (8.4-10.6); Carbon Dioxide* 24 mmol/L (20-32); Glucose* 129 mg/dL (60-115); Slide Review Reflex No; Total Protein* 5.5 g/dL (6.0-8.3)
[2024-03-29] MEDS: PEMBROLIZUMAB 200 MG, TUBING PRIMARY 1 EACH, In-line 0.2 micron filter set 1 EACH in 0.... 216 MG IVPB (10:45)
[2024-04-19 09:50] LABS: Basophils Percent Auto 0.4 % (0.0-3.0); Hematocrit* 31.4 % (37.0-53.0); Hemoglobin* 9.6 gm/dL (13.5-17.5); Immature Granulocytes Pct Auto 0.2 %; Mean Corpuscular HGB Conc 31 gm/dL (32-36); Mean Corpuscular Hemoglobin 31 pg (26-34); Mean Corpuscular Volume 102 fL (80-100); Monocytes Percent Auto 8.4 % (0.0-11.0); Neutrophils Percent Auto 29.4 % (42.0-72.0); Platelet Count* 286 K/uL (140-440); RDW Coefficient of Variation % 13.4 % (11.5-15.5); Red Blood Count* 3.09 m/uL (4.30-5.90); White Blood Count* 24.21 K/uL (4.50-11.00)
[2024-04-19 09:53] VITALS: BP 123/74; PULSE 73; RESP 16; TEMP 36.3; O2SAT 99
[2024-04-19 10:05] LABS: Lymphocytes Percent Auto 60.6 % (20-44); Slide Review Reflex No
[2024-04-19 10:12] LABS: Albumin* 3.6 g/dL (3.3-5.0); Chloride* 98 mmol/L (96-114); Potassium* 3.9 mmol/L (3.6-5.1); Sodium* 131 mmol/L (135-149)
[2024-04-19 10:15] LABS: Alanine Aminotransferase* 11 U/L (4-50); Alkaline Phosphatase* 69 U/L (40-150); Anion Gap 8 mEq/L (7-15); Aspartate Amino Transferase* 21 U/L (12-35); Bilirubin Total* 1.3 mg/dL (0.1-1.5); Blood Urea Nitrogen* 15 mg/dL (7-30); Carbon Dioxide* 25 mmol/L (20-32); Creatinine* 1.1 mg/dL (0.5-1.5); Est. Creatinine Clearance* 55.35; Estimated Glomerular Filt Rate 69 ml/min; Glucose* 162 mg/dL (60-115); Total Protein* 5.5 g/dL (6.0-8.3)
[2024-04-19 10:16] LABS: Calcium* 8.4 mg/dL (8.4-10.6)
--- NOTE | 2024-04-19 11:25 | PC.NURSE ---
Reviewed TSH results with Dr. Hurtado today. No change, ok to proceed with Pembrolizumab infusion.
[2024-04-19] MEDS: PEMBROLIZUMAB 200 MG, TUBING PRIMARY 1 EACH, In-line 0.2 micron filter set 1 EACH in 0.... 216 MG IVPB (11:34)
[2024-04-19] MEDS: SODIUM CHLORIDE 0.9 % (FLUSH) 10 ML SYRINGE IVF (12:12)
[2024-05-10 09:24] LABS: Basophils Percent Auto 0.5 % (0.0-3.0); Eosinophils Percent Auto 1.3 % (0.0-7.0); Hematocrit* 29.1 % (37.0-53.0); Hemoglobin* 8.9 gm/dL (13.5-17.5); Immature Granulocytes Pct Auto 0.3 %; Lymphocytes Percent Auto 59.8 % (20-44); Mean Corpuscular HGB Conc 31 gm/dL (32-36); Mean Corpuscular Hemoglobin 32 pg (26-34); Mean Corpuscular Volume 104 fL (80-100); Monocytes Percent Auto 9.9 % (0.0-11.0); Neutrophils Percent Auto 28.2 % (42.0-72.0); Platelet Count* 313 K/uL (140-440); RDW Coefficient of Variation % 13.9 % (11.5-15.5); Red Blood Count* 2.81 m/uL (4.30-5.90)
[2024-05-10 09:30] LABS: Chloride* 100 mmol/L (96-114)
[2024-05-10 09:31] LABS: Albumin* 3.5 g/dL (3.3-5.0); Potassium* 4.1 mmol/L (3.6-5.1); Sodium* 131 mmol/L (135-149)
[2024-05-10 09:33] LABS: Bilirubin Total* 1.4 mg/dL (0.1-1.5); Est. Creatinine Clearance* 60.88; Estimated Glomerular Filt Rate 77 ml/min
[2024-05-10 09:34] LABS: Alanine Aminotransferase* 11 U/L (4-50); Alkaline Phosphatase* 76 U/L (40-150); Anion Gap 8 mEq/L (7-15); Aspartate Amino Transferase* 19 U/L (12-35); Blood Urea Nitrogen* 12 mg/dL (7-30); Calcium* 8.3 mg/dL (8.4-10.6); Carbon Dioxide* 23 mmol/L (20-32); Glucose* 140 mg/dL (60-115); Total Protein* 5.4 g/dL (6.0-8.3)
[2024-05-10 09:44] LABS: Slide Review Reflex No; White Blood Count* 30.14 K/uL (4.50-11.00)
[2024-05-10] MEDS: PEMBROLIZUMAB 200 MG, TUBING PRIMARY 1 EACH, In-line 0.2 micron filter set 1 EACH in 0.... 216 MG IVPB (11:28)
[2024-05-10] MEDS: SODIUM CHLORIDE 0.9 % (FLUSH) 10 ML SYRINGE IVF (11:30)
[2024-05-31 09:48] LABS: Basophils Percent Auto 0.3 % (0.0-3.0); Hematocrit* 29.7 % (37.0-53.0); Immature Granulocytes Pct Auto 0.2 %; Lymphocytes Percent Auto 62.5 % (20-44); Mean Corpuscular HGB Conc 30 gm/dL (32-36); Mean Corpuscular Hemoglobin 32 pg (26-34); Mean Corpuscular Volume 105 fL (80-100); Monocytes Percent Auto 8.5 % (0.0-11.0); Neutrophils Percent Auto 27.5 % (42.0-72.0); Platelet Count* 291 K/uL (140-440); RDW Coefficient of Variation % 13.6 % (11.5-15.5); Red Blood Count* 2.84 m/uL (4.30-5.90)
[2024-05-31 10:11] LABS: Albumin* 3.7 g/dL (3.3-5.0); Chloride* 99 mmol/L (96-114); Potassium* 4.2 mmol/L (3.6-5.1); Sodium* 130 mmol/L (135-149)
[2024-05-31 10:13] LABS: Est. Creatinine Clearance* 60.88; Estimated Glomerular Filt Rate 77 ml/min
[2024-05-31 10:14] LABS: Alanine Aminotransferase* 13 U/L (4-50); Alkaline Phosphatase* 74 U/L (40-150); Anion Gap 8 mEq/L (7-15); Aspartate Amino Transferase* 18 U/L (12-35); Bilirubin Total* 2.3 mg/dL (0.1-1.5); Blood Urea Nitrogen* 18 mg/dL (7-30); Calcium* 8.6 mg/dL (8.4-10.6); Carbon Dioxide* 23 mmol/L (20-32); Glucose* 160 mg/dL (60-115); Total Protein* 5.5 g/dL (6.0-8.3)
[2024-05-31 10:27] LABS: Slide Review Reflex Yes; White Blood Count* 29.48 K/uL (4.50-11.00)
[2024-05-31 10:29] VITALS: BMI 24.1
[2024-05-31 10:30] LABS: Slide Review Acceptable Review (Acceptable)
[2024-05-31 11:19] VITALS: BP 124/75; PULSE 62; RESP 15; TEMP 36.6; O2SAT 96
[2024-05-31] MEDS: PEMBROLIZUMAB 200 MG, TUBING PRIMARY 1 EACH, In-line 0.2 micron filter set 1 EACH in 0.... 216 MG IVPB (12:26)
[2024-05-31] MEDS: SODIUM CHLORIDE 0.9 % (FLUSH) 10 ML SYRINGE IVF (13:54)
--- OUTSIDE RECORDS SUMMARY | 2024-06-07 07:14 | XMS_ITS | Continuity of Care Document ---
Author Name NwHIN User [id number]-a llowed Address Unknown Organization Unknown Address Unknown Procedures FILTER APPLIED:Only known Procedures with Onset Date within the last 5 years Procedure Date Procedure Provider Additiona l Information Status ASSAY THYROID STIM HORMONE (53228) Completed CHEMO IV INFUSION 1 HR (20425) Completed BILIRUBIN DIRECT (83096) Completed ROUTINE VENIPUNCTURE (51435) Completed COMPLETE CBC W/AUTO DIFF WBC (44468) Completed COMPREHEN METABOLIC PANEL (98419) Completed OFFICE O/P EST SF 10 MIN (70607) Completed CT SOFT TISSUE NECK W/DYE (16308) Completed CT THORAX DX C+ (04156) Completed CT ABD PELV W/CONTRAST (60398) Completed HEPATIC FUNCTION PANEL (50686) Completed EXTREMITY STUDY (12580) Completed OFFICE O/P EST LOW 20 MIN (83691) Completed EXTREMITY STUDY (11883) Completed ASSAY THYROID STIM HORMONE (93476) Completed TOTAL CORTISOL (90254) C ompleted CT THORAX DX C- (23638) Completed NEEDLE BIOPSY LYMPH NODES (58948) Completed ECHO GUIDE FOR BIOPSY (29992) Completed PET IMAGE W/CT SKULL-THIGH (99197) Completed BILIRUBIN TOTAL (39468) Completed ASSAY OF HAPTOGLOBIN QUANT (00309) Completed FLOWCYTOMETRY/ TC 1 MARKER (61387) Completed FLOWCYTOMETRY/TC ADD-ON (53716) Completed BILIRUBIN DIRECT (81117) Completed OFFICE O/P EST MOD 30 MIN (18238) Completed METABOLIC PANEL TOTAL CA (44373) Completed ASSAY OF BLOOD/URIC ACID (54795) Completed ASSAY OF PHOSPHORUS (65904) Completed LACTATE (LD) (LDH) ENZYME (98284) Completed TX/PRO/DX INJ SAME DRUG MANAGER ORACLE (56080) Completed CHEMO IV INFUSION 1 HR (47100) Completed CHEMO IV INFUSION ADDL HR (58154) Completed OFFICE O/P EST SF 10 MIN (93582) Completed OFFICE O/P EST HI 40 MIN (80771) Completed ROUTINE VENIPUNCTURE (22891) Completed COMPLETE CBC W/AUTO DIFF WBC (61801) Completed COMPREHEN METABOLIC PANEL (53831) Completed OFF/OP EST MAY X REQ PHY/QHP (37843) Completed ROUTINE VENIPUNCTURE (67633) Completed EXTREMITY STUDY (85813) Completed COMPLETE CBC W/AUTO DIFF WBC (19250) Completed ASSAY OF PHOSPHORUS (29126) Completed HEPATITIS C AB TEST (56193) Completed HEPATITIS B SURFACE AG IA (94773) Completed ASSAY OF BLOOD/URIC ACID (16845) Completed ASSAY THYROID STIM HORMONE (41738) Completed COMPATIBILITY TEST ANTIGLOB (31209) Completed BLOOD TYPING SEROLOGIC RH(D) (29753) Completed TRANSFUSION BLD/BLD COMPNT (31433) Completed RBC ANTIBODY SCREEN (53055) Completed BLOOD TYPING SEROLOGIC ABO (29990) Completed IRON BINDING TEST (66639) Completed ASSAY OF IRON (28066) Co mpleted ASSAY OF FERRITIN (48590) Completed VITAMIN B-12 (08995) Com pleted CT ABD PELV W/CONTRAST (85315) Completed CT THORAX DX C+ (09414) Completed CT SOFT TISSUE NECK W/DYE (86169) Completed ASSAY OF FOLIC ACID SERUM (06152) Completed BILIRUBIN DIRECT (45134) Completed ASSAY OF HAPTOGLOBIN QUANT (89738) Completed ESCOBAR TEST DIRECT (82898) Completed FLOWCYTOMETRY/ TC 1 MARKER (00755) Completed FLOWCYTOMETRY/TC ADD-ON (66966) Completed BILIRUBIN TOTAL (75321) Completed OFFICE O/P EST HI 40 MIN (35780) Completed ROUTINE VENIPUNCTURE (61140) Completed COMPREHEN METABOLIC PANEL (48123) Completed LACTATE (LD) (LDH) ENZYME (74267) Completed COMPLETE CBC W/AUTO DIFF WBC (53641) Completed OFFICE O/P EST SF 10 MIN (43717) Completed OFFICE O/P EST MOD 30 MIN (55538) Completed Encounters FILTER APPLIED:Only known Encounters with Admission Date within the last 5 years Encounter Location Admission Discharge Billing Code Field Sales Specialist A ttender Outpatient Birdie Hurtado Outpatient Birdie Hurtado Outpatient Birdie Hurtado Outpatient Birdie Hurtado Outpatient Birdie Hurtado Outpatient Victo cheryl Boss Outpatient Victo cheryl Boss Outpatient Birdie Hurtado Outpatient Birdie watts
--- OUTSIDE RECORDS SUMMARY | 2024-06-07 07:15 | XMS_ITS ---
Author Organization [facility] Address [address] [place] [address] Care Team Providers Care Counterperson Name Role Phone Elsewhere, Pcp Primary Care [...] treatments are documented for this patient in [facility]. Treatments may have been administered in another system.
--- OUTSIDE RECORDS SUMMARY | 2024-06-07 07:15 | XMS_ITS ---
Author Organization [facility] Address [address] [place] [address] Care Team Providers Care Kindergartner Name Role Phone Unavailable Unavailable Unavailable Surgery Details Not on file Complications Check Surgery Details section. Procedure Estimated Blood Loss Check Surgery Details section. Procedure Findings Check Surgery Details section. Procedure Specimens Taken Check Surgery Details section.
--- OUTSIDE RECORDS SUMMARY | 2024-06-07 07:15 | XMS_ITS | Clinical Summary ---
Author Organization [facility] Address [address] [place] [address] Care Team Providers Care Nutrition Educator Name Role Phone Elsewhere, Pcp Primary Care Provider Unavailabl e Source Comments Patient records contain information from all sites at [facility]. For routine questions regarding patient records, call [phone] during business hours, M-F 8:00 AM - 5:00 PM Central Time. Record requests for emergency care only can be directed to [phone] at any time.[facility] Allergies Active Allergy Reactions Criticality Noted Date Comments Ibrutinib Rash 11/04/2020 Penicillins Hives (Reselect Reaction) *reaction when teenager, Penicillin G. Medications * This document contains information received from the source organization and may not represent a complete record from that organization. ALPRAZolam (XANAX) 0.25 mg tablet Take 0.125 mg by mouth as needed for anxiety. 9 Active famotidine (PEPCID) 20 mg tablet Take 20 mg by mouth daily. Active calcium carbonate (calcium carbonate) 1000 mg (400 mg calcium) chewable tablet Chew 1 tablet as needed. Active magnesium chloride (Slow-Mag) 71.[address] tablet Take 1 tablet (71.5 mg total) by mouth daily. 2 Active tamsulosin (FLOMAX) 0.4 mg 24 hr capsule 0.4 mg daily. 2 Active Calquence, acalabrutinib mal, 100 mg tablet Take 100 mg by mouth 2 (two) times a day. 3 Active ferrous sulfate 325 mg (65 mg iron) DR tablet Take 325 mg by mouth. 3 Active levothyroxine (SYNTHROID, LEVOTHROID) 50 mcg tablet Take 50 mcg by mouth. 3 Active omeprazole (PriLOSEC) [address] capsule Take 40 mg by mouth. 3 Active metoprolol succinate (TOPROL-XL) 25 mg 24 hr tablet 3 Active oxyCODONE (ROXICODONE) 5 mg immediate release tabletIndications :Chronic Pain/Nonacute Pain Take 1-2 tablets (5-10 mg total) by mouth every 4 (four) hours as needed for moderate pain or score 4-6 of 10 Indication: Chronic Pain/Nonacute Pain. 30 tablet 3 Active Additional Information Patient not taking.Reported on 03/07/2024 atorvastatin (LIPITOR) 20 mg tablet TAKE ONE TABLET BY MOUTH ONCE EVERY DAY 90 tablet 3 4 Active amiodarone (Pacerone) 200 mg tablet Take 0.5 tablets (100 mg total) by mouth daily. 45 tablet 3 4 Active lisinopriL 10 mg tablet Take 1.5 tablets (15 mg total) by mouth 2 (two) times a day. 270 tablet 3 4 Active furosemide (Lasix) 20 mg tablet Take 1 tablet (20 mg total) by mouth as needed (weight increase 2 lb, edema, or shortness of breath). 30 tablet 1 4 Active Additional Information Patient not taking.Reported on 03/07/2024 rivaroxaban (Xarelto) 20 mg tabletIndications :Atrial Fibrillation Longstanding Persistent (HCC) Take 1 tablet (20 mg total) by mouth daily with evening meal. 90 tablet 3 4 Active iron,carbonyl-vit watson C (Vitron-C) 65 mg iron- [address] tablet Take 65 mg of iron by mouth daily. Do not crush or chew. Active metoprolol tartrate (Lopressor) 25 mg tablet Take 1 tablet (25 mg total) by mouth 2 (two) times a day. 180 tablet 3 4 Active Hospital, Clinic, or Other Facility Administered [...] 04/09/2024 Refill Department of Cardiovascular Medicine in [place] [id number] [place] [phone] Ron Santana M.D., Ph.D. Med Refill 03/29/2024 Orders Only Department of Oncology in [address] [phone] Birdie Hurtado M.D. 03/26/2024 10:56 AM CDT - 03/26/2024 11:59 PM CDT Hospital Encounter Department of Radiology, [facility] in [place], [place] [address] [place] [phone] Birdie Hurtado M.D. 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 Atrial Fibrillation Unspecified (HCC); Regurgitation Mitral 03/13/2024 8:12 AM CDT - 03/13/2024 11:59 PM CDT Hospital Encounter Department of Laboratory Medicine and Pathology, [facility] in [address] [phone] Loraine Thakkar M.D. Atrial Fibrillation Unspecified (HCC); Regurgitation Mitral; Repair Mitral Valve Status Post Discharge Disposition: Home or Self Care 03/13/2024 7:54 AM CDT - 03/13/2024 8:11 AM CDT Hospital Encounter Department of Radiology, [facility] in [address] [phone] Marilu Castaneda P.A.-C., M.S. Atrial Fibrillation Unspecified (HCC); Regurgitation Mitral Discharge Disposition: Home or Self Care 03/07/2024 1:00 PM CDT Clinical Communication Virtual Review in [place], [place] [address] [place] [address] from Last 3 Months Immunizations Name Administration [...] drink = 0.6 oz pur e alcohol) [facility] Synupities Answer Date Recorded In the past 12 months has e [employer], gas, oil, or water [employer] threatened to shut off services in your [...] How often do you attend restorationist or protestant serv ices? Never 06/30/2021 Do [...] and heating? Not hard at all 06/30/2021 [facility] - [...] living situation today? I have a [facility] place to live 01/13/2024 Education Answer Date Recorded What is the highest level of school you have completed or the highest degree you have received? Professional school degree (e.g., MD, DDS, DVM, GRACIELA) 06/30/2021 Sex and Gender Information Value Date Recorded Sex Assigned at Male 06/30/2021 12:19 PM PHYSICIAN'S ASSISTANT Legal Sex Male 7:31 AM CDT Gender Identity Male 06/30/2021 12:19 PM PHYSICIAN'S ASSISTANT Sexual Orientation Straight 06/30/2021 12 :19 PM PHYSICIAN'S ASSISTANT Last Filed Vital Signs Vital Sign Reading Time Taken Comments Blood Pressure 166/75 03/13/2024 9:49 AM CDT Avg of 3 Pulse 64 03/13/2024 9:49 AM CDT Temperature 36.6 C (97.9 F) 05/03/2023 3:58 PM PHYSICIAN'S ASSISTANT Respiratory Rate 16 01/13/2024 12:18 PM CDT [...] 09/11/2022 09/11/2012, 01/19/2006 COVID-19 Vaccine ( season) 2024 03/21/2023, 03/02/2022, 09/29/2021, Additional history exists Depression Screening (Annual PHQ-2) 06/06/2024 Fall Risk Screen (Annual) 06/06/2024 Office Visit for Blood Pressure Check / Re-check 06/13/2024 03/13/2024 Creatinine Level (Kidney Function Test) 03/13/2025 03/13/2024, 01/12/2024, 05/23/2023, Additional history exists Potassium Level 03/13/2025 03/13/2024, 08/0 01/2024, 10/26/2022, Additional history exists Sodium Level 03/13/2025 03/13/2024, 08/0 01/2024, 10/13/2022, Additional history exists Pneumococcal vaccine (50+ years) Completed 12/20/2014, 10/12/2010 Influenza Vaccine Completed 03/21/2024, , 04/02/2022, Additional history exists HPV Vaccines Aged Out No longer eligi ble based on patient's age to complete this topic IPV Vaccines Aged Out No longer eligi ble based on patient's age to complete this topic Medical Devices Implanted Type Area Marshmallow Machine Operator Device Identifier Shelf Expiration Date Model / Serial / Lot Clp Tania Clip Del Sys Xtr - [id number] Implanted:Qty : 1 on 06/28/2019 by Hernandez Echevarria M.D. 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 Birdie Hurtado M.D. IM NM PROCEDURES Final Result * T4 (Thyroxine), Free, Serum (03/13/2024 8:22 AM CDT) T4 (Thyroxine), Free, S 1.7 0.9 - 1.7 ng/dL 03/13/2024 10:55 AM CDT DTL Blood 03/13/2024 8:22 AM CDT 03/13/2024 9:03 AM CDT Marilu Castaneda P.A.-C., M.S. LAB BLOOD ADD-ON Fi nal Result [facility] [address] [place], [place] [id number] [place] [address] [facility] [address] [place] [address] * (ABNORMAL) Lipid Panel (03/13/2024 8:22 AM [...] M.D. LAB BLOOD ADD-ON Final Resul t [facility] [address] [place] [address], [facility] DTMiami [facility] LaboratoriesP[facility] [address] [place] [address] * (ABNORMAL) Morphology Eval (special smear) (03/13/2024 [...] Reviewed by: Odalis 03/13/2024 11:06 AM CDT [facility] Blood 03/13/2024 8:22 AM CDT 03/13/2024 8:47 AM CDT us Loraine Thakkar M.D. LAB BLOOD ADD-ON Final Resul t Performing Organization Address City/[facility]/ZIP Co de Phone Number [facility] [address] [place] [address] * (ABNORMAL) Thyroid Function [place] (03/13/2024 8:22 AM CDT) [facility] TSH, Sensitive 10.0(H) 0.3 - 4.2 mIU/L 03/13/2024 10:34 AM CDT DTL Blood (Blood, Venous) 03/13/2024 8:22 AM CDT 03/13/2024 9:03 AM CDT us Marilu Castaneda P.A.-C., M.S. LAB BLOOD ADD-ON Fi nal Result Performing Organization Address City/[facility] Co de Phone Number [facility] [address] DTL [facility] [address] [place] [address] * (ABNORMAL) NT-Pro B-Type Natriuretic Peptide (BNP) (03/13/2024 8:22 AM CDT) Pathologist [facility] NT-Pro BNP 974(H) <=540 pg/mL 03/13/2024 10:34 [...] 8:22 AM CDT 03/13/2024 9:03 AM CDT Loraine Thakkar M.D. LAB BLOOD ADD-ON Final Resul t Performing Organization Address City/[facility] Co de Phone Number [facility] [address] [place] [address] * Thyroperoxidase (TPO) Antibodies (03/13/2024 8:22 AM CDT) [facility] Thyroperoxidase Ab, S <15.0 <34.0 IU/mL 03/13/2024 10:55 AM CDT [facility] Blood 03/13/2024 8:22 AM CDT 03/13/2024 9:03 AM CDT Marilu Castaneda P.A.-C., M.S. LAB BLOOD ADD-ON Fi nal Result Performing Organization Address City/[facility] Co de Phone Number [facility] [address] [place] [address] * (ABNORMAL) Prothrombin Time (PT) (03/13/2024 8:22 AM CDT) [facility] Prothrombin Time, P 27.6(H) 9.4 - [...] ADD-ON Final Resul t [facility] [address] [place] [address], [facility] [place] [address] [place] [address] * (ABNORMAL) CBC with Differential, Blood (03/13/2024 [...] - 6.45 x10(9)/L 03/13/2024 11:05 AM CDT [facility] Comment:Auto-diff results no t valid. See manual differential. Blood (Blood, Venous) 03/13/2024 8:22 AM CDT 03/13/2024 8:47 AM CDT Loraine Thakkar M.D. LAB BLOOD ADD-ON Final Resul t Performing Organization Address City/[facility] Co de Phone Number [facility] [address] [place] [address] * Glucose, Fasting (03/13/2024 8:22 AM CDT) Glucose, P 90 70 - 100 mg/dL 03/13/2024 9:17 AM CDT DTL Last Intake 11 hr 03/13/2024 8:59 AM CDT DTL Blood (Blood, Venous) 03/13/2024 8:22 AM CDT 03/13/2024 8:59 AM CDT us Loraine Thakkar M.D. LAB BLOOD NON ADD-ON Final R esult Performing Organization Address [facility] de Phone Number [facility] [address] [place] [address] * (ABNORMAL) Comprehensive Metabolic Panel (03/13/2024 8:22 [...] M.S. LAB BLOOD ADD-ON Fi nal Result [facility] [address] [place] [address], [facility] DTL [facility] [address] [place] [address] * DX Chest AP or PA and [...] Indicated Protective Environment 09/20/2022 3 Insurance MEDICARE [facility] Advance Directives For more information, please contact: [phone] * Full Code (Latest Code Status on File) Date Activated Date Inactivated Comments 01/06/2022 5:12 PM 01/09/2022 4:47 PM Question Answer Comments Full Code: Discussed * Full Code Date Activated Date Inactivated Comments 06/28/2019 12:14 PM 06/29/2019 2:37 PM Question Answer Comments Full Code: Discussed Care Teams Nutrition Educator Relationship Specialty Start Date End Date Elsewhere, Pcp PCP - General Foot Roentgenologist 06/27/19
--- OUTSIDE RECORDS SUMMARY | 2024-06-07 07:15 | XMS_ITS | Clinical Summary ---
Author Organization [facility] Address [place], [place] [address] Care Team Providers Care Sintering Plant Supervisor Name Role Phone Nikki Reilly DO Primary Care Provider [phone] Allergies Active Allergy Reactions Criticality Noted Date Comments Ibrutinib Rash High 04/12/2022 Penicillins Hives Medications docusate (COLACE) 100 mg capsuleIndication s:Chronic constipation Take 1 capsule by mouth 2 times daily if needed for Constipation . 30 capsule 0 Active magnesium chloride delayed release tabletIndications :Low magnesium level One oral every day 90 tablet 0 Active calcium carbonate CHEWABLE (MAALOX QUICK DISSOLVE) 400 mg calcium (1,000 mg) chew Take 1 Tab by mouth. Active famotidine (PEPCID) 20 mg tablet Take 20 mg by mouth. Active atorvastatin (LIPITOR) 20 mg tablet Take 20 mg by mouth once daily. 2 Active Calquence, acalabrutinib mal, 100 mg tablet Take 100 mg by mouth. 3 Active lisinopriL (PRINIVIL; ZESTRIL) 10 mg tablet 10 mg. 3 Active metoprolol tartrate (LOPRESSOR) 25 mg tablet Take 1 Tablet (25 mg) by mouth two times daily. 60 Tablet 11 3 Active rivaroxaban (XARELTO) 20 mg tabletIndications :Longstanding persistent atrial fibrillation (HC) Take 1 Tablet (20 mg) by mouth once daily with evening meal. 0 3 Active ferrous sulfate 325 mg delayed release tabletIndications :Microcytic anemia Take 1 Tablet (325 mg) by mouth once daily with a meal. 65 mg three times daily. 90 Tablet 3 3 Active fluticasone (50 mcg per actuation) nasal solution (FLONASE)Indicati ons:Bleeding Inhale 2 Sprays to both nostrils once daily. 16 g 4 Active tamsulosin (FLOMAX) 0.4 mg capsuleIndication s:Nocturia TAKE ONE CAPSULE BY MOUTH EVERY DAY AFTER A MEAL 90 Capsule 2 4 Active amiodarone (CORDARONE) 200 mg tablet Take 100 mg by mouth once daily. 4 Active levothyroxine (SYNTHROID) 112 mcg tabletIndications :Hypothyroidism (acquired) Take 1 Tablet (112 mcg) by mouth once daily. 30 Tablet 1 4 Active ALPRAZolam (XANAX) 0.25 mg tabletIndications :Agoraphobia with panic attacks Take 1 Tablet (0.25 mg) by mouth every 12 hours if needed for Anxiety or Panic. 20 Tablet 4 Active ALPRAZolam (XANAX) 0.25 mg tabletIndications :Agoraphobia with panic attacks TAKE ONE TABLET BY MOUTH EVERY 8 HOURS NEEDED FOR ANXIETY OR PANIC 20 Tablet 4 024 Discontinu ed(Reorder (E-cancel not sent)) levothyroxine (SYNTHROID) 100 mcg tablet Take 100 mcg by mouth once daily. 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 During stress test. No recurrence since. Personal [...] Encounters Date Type Department Care Team Description 05/18/2024 Telephone [facility] [address] [facility] [place] [address] Nikki Reilly DO Concerns (Blood Pressure) 05/17/2024 2:05 PM VEGETABLE HARVEST MACHINE OPERATOR Office Visit [facility] [address] [facility] [place] [address] Nikki Reilly DO Medicare ANNUAL (subsequent) Visit (78 year old ) 05/17/2024 Travel 05/01/2024 Telephone [facility] [address] [place] [address] Chris Thomas MD Results 04/30/2024 2:15 PM VEGETABLE HARVEST MACHINE OPERATOR Office Visit [facility] [address] [place] [address] Chris Thomas MD ER Follow up (Cardioversion, hyponatremia - needs repeat sodium) 04/30/2024 Travel 04/27/2024 Telephone [facility] [address] [place] [address] Nikki Reilly, Lab from Last 3 Months Immunizations Name Administration Dates Next Due AMB Influenza, IIV3 (Age >=3 years)(Flu Clinic Only) 04/10/2008 Amb Influenza, Inact (High-d ose) (Flu Clinic Only) 03/14/2014 Amb Influenza, Inactivated A IIV4 (Age 65+ Years) Preserv Free 02/28/2020 COVID-19 VACCINE SPIKEVAX (M ODERNA 50MCG/0.5ML) 12YO+ PFS 03/21/2023 Influenza A (H1N1), Inactivated 04/21/2009 Influenza Virus, Unspecified 03/09/2018, 02/16/2017,03/15/2011,2007,03/17/2007,04/09/2006 Influenza, High-dose Inactivated 024,02/12/2019,03/09/2016,2014,03/14/2014 Influenza, IIV3 (Age >=3 years) 03/15/20 11,04/10/2008,03/17/2007,2005 Influenza, IIV4 03/14/2013 Influenza, Inactivated AIIV4 (Age 65+ Years) Preserv Free 02/14/2023,04/02/2022 Influenza, Inactivated IIV3 (Age 65+ Years) Preserv Free 03/21/2024,03/09/2018,02/16/2017 Pneumococcal Poly,23-Valent (Pneumovax) 10/12/2010 Pneumococcal conj 13-Valent [...] e alcohol) glass of red wine daily [facility] Utilities Answer Date Recorded Do you have trouble paying f or utilities (for example, heat, electricity, water, phone)? Yes 05/17/2024 PHQ-2 Answer Date Recorded PHQ-2 TOTAL SCORE 1 05/17/2024 Social Connections Answer Date Recorded Do you often feel lonely or isolated from those around you? 0 05/17/2024 Financial Resource Strain Answer Date R ecorded Difficulty of Paying Living Expenses 3 05/17/2024 Difficulty of Paying Living Expenses Not on file 05/17/2024 Food Insecurity Answer Date Recorded Do you worry your food will run out before you are able to buy more? 1 05/17/2024 Transportation Needs Answer Date Record ed Does lack of transportation keep you from medica l appointments? 1 05/17/2024 Does lack of transportation keep you from work, meetings or getting things that you need? 1 05/17/2024 Housing Stability Answer Date Recorded What is your housing situation today? 1 05/17/2024 Sex and Gender Information Value Date Recorded Sex Assigned at Not on file Legal Sex Male 7:17 AM VEGETABLE HARVEST MACHINE OPERATOR Gender Identity Not on file Sexual Orientation Not on file Obstetrics History Last Filed Vital Signs Vital Sign Reading Time Taken Comments Blood Pressure 160/82 05/17/2024 2:08 PM VEGETABLE HARVEST MACHINE OPERATOR rec heck Pulse 62 05/17/2024 2:05 PM VEGETABLE HARVEST MACHINE OPERATOR Temperature 36.9 C (98.4 F) 04/23/2020 11:09 AM VEGETABLE HARVEST MACHINE OPERATOR Respiratory Rate 16 03/20/2020 2:20 PM CDT Oxygen Saturation 100% 05/17/2024 2:05 PM VEGETABLE HARVEST MACHINE OPERATOR Inhaled Oxygen Concentration - - Weight 76.5 kg (168 lb 9.6 oz) 05/17/2024 2:05 P M VEGETABLE HARVEST MACHINE OPERATOR Height 175.2 cm (5' 8.98) 05/17/2024 2:05 PM CS T Body Mass Index 24.91 05/17/2024 2:05 PM VEGETABLE HARVEST MACHINE OPERATOR Plan of Treatment Health Maintenance Due Date Last Done Comments Zoster (shingles) series for age 50+ (1 of 2) 12/07/2010 10/12/2010 RSV vaccine for adults or (1 - 1-dose 75+ series) 2020 Tetanus booster 09/11/2022 09/11/2012, 01/04, 01/19/2006 COVID-19 vaccine series ( season) 2024 02/22/2024, 03/21/2023, 03/02/2022, Additional history exists BMI (ht and wt on same day) for age 18+ 05/17/2025 05/17/2024, 12/23/2022, 04/23/2020, Additional history exists Depression screening for age 12+ 05/18/2025 05/18/2024, 05/17/2024, 12/23/2022, Additional history exists Medicare Wellness for age 65+ 05/18/2025, 12/23/2022, 03/09/2018, Additional history exists Tdap Completed 09/11/2012 Pneumococcal series for age 50+ Completed 5, 10/12/2010 Hepatitis C screening for ag e 18-79 Completed 03/09/2018 Influenza for age 65+ Completed 03/21/2024 , 03/21/2024, 02/14/2023, Additional history exists Procedures Procedure Name Priority Date/Time Associated Diagnosis Comments BASIC METABOLIC PANEL Routine 04/30/2024 2:55 PM VEGETABLE HARVEST MACHINE OPERATOR Hyponatremia TSH Routine 04/30/2024 2:55 PM VEGETABLE HARVEST MACHINE OPERATOR Hypothyroidism (acquired) ANTI HCV Routine 03/09/2018 10:39 AM CDT Need for hepatitis C screening test from Last 3 Months or Most Recently Relevant to Health Maintenance Results * (ABNORMAL) TSH (04/30/2024 2:55 PM VEGETABLE HARVEST MACHINE OPERATOR) TSH 8.39(H) 0.40 - 4.50 mIU/L [facility] Blood BLOOD SPECIMEN / Unknown 04/30/2024 2:55 PM VEGETABLE HARVEST MACHINE OPERATOR 04/30/2024 2:56 PM VEGETABLE HARVEST MACHINE OPERATOR Chris Thomas MD CHEMISTRY Final Result Performing Organization Address City/[facility]/ZIP Co de Phone Number [facility] [employer] [facility] [address] [place] [address], [facility] [address] [place] [address] * (ABNORMAL) BASIC METABOLIC PANEL (04/30/2024 2:55 PM VEGETABLE HARVEST MACHINE OPERATOR) Pathologist [facility] GLUCOSE 76 65 - 99 mg/dL [facility] Comment: Fasting reference interval UREA NITROGEN (BUN) 15 7 - 25 mg/dL [facility] CREATININE 1.13 0.70 - 1.28 mg/dL [facility] EGFR 67 > OR = 60 mL/min/1. 73m2 [facility] BUN/CREATININE RATIO SEE NOTE: 6 - 22 (calc) [facility] Comment: Not Reported: BUN and Creatinine are within reference range. SODIUM 136 135 - 146 mmol/L [facility] POTASSIUM 4.5 3.5 - 5.3 mmol/L [facility] CHLORIDE 104 98 - 110 mmol/L [facility] CARBON DIOXIDE 25 20 - 32 mmol/L [facility] ELECTROLYTE BALANCE 7 7 - 17 mmol/L (calc) [facility] CALCIUM 8.5(L) 8.6 - 10.3 mg/dL [facility] Blood BLOOD SPECIMEN / Unknown 04/30/2024 2:55 PM VEGETABLE HARVEST MACHINE OPERATOR 04/30/2024 2:56 PM VEGETABLE HARVEST MACHINE OPERATOR Chris Thomas MD CHEMISTRY Final Result Performing Organization Address City/[facility]/ZIP Co de Phone Number [employer] [facility] [address] [place] [address], [facility] [address] [place] [address] * ANTI HCV [69485.2] (03/09/2018 10:39 AM CDT) HEPATITIS C ANTIBODY Non-React irlanda Non-React irlanda 03/09/2018 5:05 PM CDT [facility] Comment:Antibodies to HCV no t detected; does not exclude the possibility of exposure to HCV. Blood BLOOD SPECIMEN / Unknown Venipuncture / Unknown 03/09/2018 10:39 AM CDT 03/09/2018 10:39 AM CDT Ron Garcia MD SEND OUTS Final Resu lt [facility] [address] [place] [address], from Last 3 Months or Most Recently Relevant to Health Maintenance Insurance MEDICARE PART A HB ONLY MEDICARE PART B HB ONLY [employer] [place] BLUE HB ONLY [employer] [place] BLUE MR PB ONLY Advance Directives * Full Code (Latest Code Status on File) Date Activated Date Inactivated Comments 11/22/2011 11:07 AM 11/22/2011 3:00 PM * Full Code Date Activated Date Inactivated Comments 11/22/2011 9:03 AM 11/22/2011 11:07 AM Care Teams Sintering Plant Supervisor Relationship Specialty Start Date End Date Nikki Reilly DO [address] [place] [address] PCP - General Family Practice 12/15/22
--- OUTSIDE RECORDS SUMMARY | 2024-06-07 07:15 | XMS_ITS | Referral Summary ---
Author Organization [facility] Address [address] [place] [address] Care Team Providers Care Plastic Fixture Builder Name Role Phone Elsewhere, Pcp Primary Care Provider Unavailabl e Source Comments Patient records contain information from all sites at [facility]. For routine questions regarding patient records, call [phone] during business hours, M-F 8:00 AM - 5:00 PM Central Time. Record requests for emergency care only can be directed to [phone] at any time.[facility] Encounters Date Type Department Care Team Description 04/09/2024 Refill Department of Cardiovascular Medicine in [place], [place] [address] [place] [address] Ron Santana M.D., Ph.D. Med Refill 03/29/2024 Orders Only Department of Oncology in [address] [phone] Birdie Hurtado M.D. 03/26/2024 10:56 AM CDT - 03/26/2024 11:59 PM CDT Hospital Encounter Department of Radiology, [facility] in [place], [place] [address] [place] [address] Birdie Hurtado M.D. 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 Atrial Fibrillation Unspecified (HCC); Regurgitation Mitral Discharge Disposition: Home or Self Care 03/13/2024 8:12 AM CDT - 03/13/2024 11:59 PM CDT Hospital Encounter Department of Laboratory Medicine and Pathology, [facility], in [place], [place] [address] [place] [phone] Loraine Thakkar M.D. Atrial Fibrillation Unspecified (HCC); Regurgitation Mitral; Repair Mitral Valve Status Post Discharge Disposition: Home or Self Care 03/13/2024 10:00 AM CDT Comprehensive Visit Department of Cardiovascular Medicine in [place], [place] [address] [place] [phone] Loraine Thakkar M.D. Atrial Fibrillation Unspecified (HCC); Regurgitation Mitral 03/07/2024 1:00 PM CDT Clinical Communication Virtual Review in [place], [place] [address] [place] [address] from Last 3 Months Allergies Active Allergy [...] drink = 0.6 oz pur e alcohol) [facility] Utilities Answer Date Recorded In the past 12 months has e [employer], gas, oil, or water [employer] threatened to shut off services in your [...] How often do you attend advent or protestant serv ices? Never 06/30/2021 Do [...] and heating? Not hard at all 06/30/2021 [facility] - Occupational [...] Sex Assigned at Male 06/30/2021 12:19 PM ECOLOGICAL RISK ASSESSOR Legal Sex Male 7:31 AM CDT Gender Identity Male 06/30/2021 12:19 PM ECOLOGICAL RISK ASSESSOR Sexual Orientation Straight 06/30/2021 12 :19 PM ECOLOGICAL RISK ASSESSOR Last Filed Vital Signs Vital Sign Reading Time Taken Comments Blood Pressure 166/75 03/13/2024 9:49 AM CDT Avg of 3 Pulse 64 03/13/2024 9:49 AM CDT Temperature 36.6 C (97.9 F) 05/03/2023 3:58 PM ECOLOGICAL RISK ASSESSOR Respiratory Rate 16 01/13/2024 12:18 PM CDT Oxygen Saturation 95% 01/13/2024 12:20 PM CDT Inhaled Oxygen Concentration - - Weight 76 kg (167 lb 8.8 oz) 03/13/2024 9:49 AM CDT Height 178.2 cm (5' 10.16) 03/13/2024 9:49 AM C DT Body Mass Index 23.93 03/13/2024 9:49 AM CDT Plan of Treatment Not on file Medical Devices Implanted Type Area Coastal/Harbor Defense Officer Device Identifier Shelf Expiration Date Model / Serial / Lot Clp Tania Clip Del s Xtr - [id number] Implanted:Qty : 1 on 06/28/2019 by Hernandez Echevarria M.D. 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 Birdie Hurtado M.D. IMG NM PROCEDURES Final Result * T4 (Thyroxine), Free, Serum (03/13/2024 8:22 AM CDT) Pathologist [facility] T4 (Thyroxine), Free, S 1.7 0.9 - 1.7 ng/dL 03/13/2024 10:55 AM CDT DTL Blood 03/13/2024 8:22 AM CDT 03/13/2024 9:03 AM CDT Marilu Castaneda P.A.-C., M.S. LAB BLOOD ADD-ON Fi nal Result [facility] [address] [place] [address], [place] [facility] [address] [place] [address] * (ABNORMAL) Lipid Panel (03/13/2024 8:22 AM CDT) Pathologist [facility] Triglycerides 36 mg/dL 03/13/2024 10:34 AM CDT [...] LAB BLOOD ADD-ON Final Resul t [facility] [address] [place] [address], [place] [facility] [address] [place] [address] * (ABNORMAL) Morphology Eval (special smear) (03/13/2024 [...] Reviewed by: Tech 03/13/2024 11:06 AM CDT DHPM Blood 03/13/2024 8:22 AM CDT 03/13/2024 8:47 AM CDT us Loraine Tahkkar M.D. LAB BLOOD ADD-ON Final Resul t [facility] [address] [place] [address] * (ABNORMAL) Thyroid Function [place] (03/13/2024 8:22 AM CDT) TSH, Sensitive 10.0(H) 0.3 - 4.2 mIU/L 03/13/2024 10:34 AM CDT DTL Blood (Blood, Venous) 03/13/2024 8:22 AM CDT 03/13/2024 9:03 AM CDT us Marilu Castaneda P.A.-C., M.S. LAB BLOOD ADD-ON Fi nal Result Performing Organization Address [facility] Co de Phone Number [facility] [address] [place] [address] * (ABNORMAL) NT-Pro B-Type Natriuretic Peptide (BNP) [...] ADD-ON Final Resul t Performing Organization Address [facility] de Phone Number [facility] [address] [place] [address] * Thyroperoxidase (TPO) Antibodies (03/13/2024 8:22 AM CDT) Thyroperoxidase Ab, S <15.0 <34.0 IU/mL 03/13/2024 10:55 AM CDT DT Blood 03/13/2024 8:22 AM CDT 03/13/2024 9:03 AM CDT us Marilu Castaneda P.A.-C., M.S. LAB BLOOD ADD-ON Fi nal Result Performing Organization Address City/[facility] Co de Phone Number [facility] [address] [place], [place] [address] [address] [place] [address] * (ABNORMAL) Prothrombin Time (PT) (03/13/2024 8:22 AM CDT) Pathologist [facility] Prothrombin Time, P 27.6(H) 9.4 - 12.5 [...] ADD-ON Final Resul t Performing Organization Address [facility]/State/ZIP Co de Phone Number [facility] [address] [place] [address], [address] [address] * (ABNORMAL) CBC with Differential, Blood (03/13/2024 8:22 AM CDT) [facility] Hemoglobin 9.4(L) 13.2 - 16.6 g/dL 03/13/2024 [...] - 6.45 x10(9)/L 03/13/2024 11:05 AM CDT [facility] Comment:Auto-diff results no t valid. See manual differential. Blood (Blood, Venous) 03/13/2024 8:22 AM CDT 03/13/2024 8:47 AM CDT Loraine Thakkar M.D. LAB BLOOD ADD-ON Final Resul t Performing Organization Address City/[facility]/ZIP Co de Phone Number [facility] [address] [place] [address] * Glucose, Fasting (03/13/2024 8:22 AM CDT) Pathologist [facility] Glucose, P 90 70 - 100 mg/dL 03/13/2024 9:17 AM CDT DTL Last Intake 11 hr 03/13/2024 8:59 AM CDT DTL Blood (Blood, Venous) 03/13/2024 8:22 AM CDT 03/13/2024 8:59 AM CDT us Loraine Thakkar M.D. LAB BLOOD NON ADD-ON Final R esult Performing Organization Address City/[facility]/ZIP Co de Phone Number [address] [place] [address] * (ABNORMAL) Comprehensive Metabolic Panel (03/13/2024 8:22 [...] M.S. LAB BLOOD ADD-ON Fi nal Result [facility] [address] [place] [address], [place] DTL [facility] [address] [place] [address] * DX Chest AP or PA and [...] Indicated Protective Environment 09/20/[address] [facility] [address] Advance Directives For more information, please contact: [phone] * Full Code (Latest Code Status on File) Date Activated Date Inactivated Comments 01/06/2022 5:12 PM 01/09/2022 4:47 PM Question Answer Comments Full Code: Discussed * Full Code Date Activated Date Inactivated Comments 06/28/2019 12:14 PM 06/29/2019 2:37 PM Question Answer Comments Full Code: Discussed Care Teams Plastic Fixture Builder Relationship Specialty Start Date End Date Elsewhere, Pcp PCP - General Clinical Trial Assistant 06/27/19
[2024-06-07 13:52] LABS: Albumin* 3.8 g/dL (3.3-5.0)
[2024-06-07 13:55] LABS: Alanine Aminotransferase* 13 U/L (4-50); Alkaline Phosphatase* 91 U/L (40-150); Aspartate Amino Transferase* 19 U/L (12-35); Bilirubin Direct* 0.4 mg/dL (0.0-0.5); Bilirubin Total* 2.7 mg/dL (0.1-1.5); Total Protein* 5.7 g/dL (6.0-8.3)
[2024-06-21 10:01] LABS: Basophils Percent Auto 0.1 % (0.0-3.0); Eosinophils Percent Auto 0.2 % (0.0-7.0); Hematocrit* 30.7 % (37.0-53.0); Hemoglobin* 9.4 gm/dL (13.5-17.5); Immature Granulocytes Pct Auto 3.1 %; Lymphocytes Percent Auto 66.1 % (20-44); Mean Corpuscular HGB Conc 31 gm/dL (32-36); Mean Corpuscular Hemoglobin 30 pg (26-34); Mean Corpuscular Volume 99 fL (80-100); Monocytes Percent Auto 6.6 % (0.0-11.0); Neutrophils Percent Auto 23.9 % (42.0-72.0); Platelet Count* 483 K/uL (140-440); RDW Coefficient of Variation % 13.3 % (11.5-15.5)
[2024-06-21 10:21] LABS: White Blood Count* 91.23 K/uL (4.50-11.00)
[2024-06-21 10:22] LABS: Slide Review Reflex Yes
[2024-06-21 10:23] LABS: Chloride* 97 mmol/L (96-114); Potassium* 3.7 mmol/L (3.6-5.1); Sodium* 132 mmol/L (135-149)
[2024-06-21 10:25] LABS: Anion Gap 9 mEq/L (7-15); Aspartate Amino Transferase* 30 U/L (12-35); Bilirubin Total* 2.4 mg/dL (0.1-1.5); Carbon Dioxide* 26 mmol/L (20-32); Creatinine* 1.1 mg/dL (0.5-1.5); Est. Creatinine Clearance* 55.35; Estimated Glomerular Filt Rate 69 ml/min; Slide Review Acceptable Review (Acceptable); Total Protein* 5.4 g/dL (6.0-8.3)
[2024-06-21 10:26] LABS: Alanine Aminotransferase* 22 U/L (4-50); Alkaline Phosphatase* 55 U/L (40-150); Blood Urea Nitrogen* 32 mg/dL (7-30); Glucose* 117 mg/dL (60-115)
[2024-06-21 10:32] LABS: Albumin* 3.5 g/dL (3.3-5.0)
--- NOTE | 2024-06-22 16:41 | ONC.NURNOTE ---
Patient called today with concerns about some prescriptions he thought were being sent in following his appt yesterday, he went to his pharmacy and they did not have any. On chart field reviewer did not see any new prescriptions sent in or mention of it in the note. RN told patient she would reach out to MD and get back to him. RN called patient at end of day to update him that she had no heard from the MD yet but she was finishing up somethings and he would most likely have them at the pharmacy over the weekend. RN told patient she would follow up on Tuesday morning. Patient appreciative of the call and ok with the plan.
--- NOTE | 2024-06-25 13:07 | ONC.NURNOTE ---
Pt called stating he has thrush. Pt will call his primary at [facility] today or see his primary tomorrow. (already scheduled.)
--- NOTE | 2024-07-09 08:43 | ONC.NURNOTE ---
Called pt today after d/c from the hospital ([facility]). Pt is scheduled to see Dr. Hurtado on 07/19/2024 at 1:30 PM. RN also confirmed pt is holding his Calquence at this time. Freeman verbalized understanding of the plan. Support offered.
--- NOTE | 2024-07-19 08:44 | ONC.NURNOTE ---
Addendum entered by Liliya Bui RN 07/26/24 16:11: Attempted to call zach to see how he is doing. LMOM to call infusion center back. He was put on Dr. Salazar schedule since she is in the office. Original Note: Patient called to cancel his appointment today. He notes that he was on a home sleep study last night and noted on the monitor that he was in Afib and his blood oxygen levels were 80-86%. When he woke up, they increased to 87-90%, but he continues to not feel well. He called to be sure he should not come in for his appointment with Dr. Hurtado prior to going to the ER. He was informed to go to the ER as planned. He is going to [place] per his decision, he is just waiting for his ride. He will call us with an update after he is seen, and told that the ER provider can call our office with any questions.
[2024-08-02 14:06] LABS: Basophils Percent Auto 0.4 % (0.0-3.0); Eosinophils Percent Auto 0.5 % (0.0-7.0); Hematocrit* 34.4 % (37.0-53.0); Hemoglobin* 10.7 gm/dL (13.5-17.5); Immature Granulocytes Pct Auto 0.8 %; Lymphocytes Percent Auto 69.5 % (20-44); Mean Corpuscular HGB Conc 31 gm/dL (32-36); Mean Corpuscular Hemoglobin 29 pg (26-34); Mean Corpuscular Volume 94 fL (80-100); Monocytes Percent Auto 16.3 % (0.0-11.0); Neutrophils Percent Auto 12.5 % (42.0-72.0); Platelet Count* 319 K/uL (140-440); RDW Coefficient of Variation % 17.3 % (11.5-15.5); Red Blood Count* 3.67 m/uL (4.30-5.90)
[2024-08-02 14:14] LABS: Albumin* 3.8 g/dL (3.3-5.0); Chloride* 101 mmol/L (96-114); Potassium* 4.6 mmol/L (3.6-5.1); Sodium* 133 mmol/L (135-149)
[2024-08-02 14:17] LABS: Alanine Aminotransferase* 29 U/L (4-50); Alkaline Phosphatase* 89 U/L (40-150); Anion Gap 9 mEq/L (7-15); Aspartate Amino Transferase* 27 U/L (12-35); Blood Urea Nitrogen* 19 mg/dL (7-30); Carbon Dioxide* 23 mmol/L (20-32); Est. Creatinine Clearance* 60.19; Estimated Glomerular Filt Rate 77 ml/min; Glucose* 85 mg/dL (60-115); Total Protein* 5.9 g/dL (6.0-8.3)
[2024-08-02 14:18] LABS: Calcium* 8.8 mg/dL (8.4-10.6)
[2024-08-02 14:45] LABS: Slide Review Acceptable Review (Acceptable); Slide Review Reflex Yes; White Blood Count* 41.42 K/uL (4.50-11.00)
[2024-08-21 15:06] LABS: Albumin* 3.7 g/dL (3.3-5.0); Chloride* 98 mmol/L (96-114)
[2024-08-21 15:07] LABS: Potassium* 4.1 mmol/L (3.6-5.1); Sodium* 133 mmol/L (135-149)
[2024-08-21 15:09] LABS: Alanine Aminotransferase* 41 U/L (4-50); Alkaline Phosphatase* 95 U/L (40-150); Anion Gap 12 mEq/L (7-15); Aspartate Amino Transferase* 48 U/L (12-35); Bilirubin Total* 1.2 mg/dL (0.1-1.5); Blood Urea Nitrogen* 28 mg/dL (7-30); Carbon Dioxide* 23 mmol/L (20-32); Creatinine* 0.9 mg/dL (0.5-1.5); Est. Creatinine Clearance* 60.19; Estimated Glomerular Filt Rate 87 ml/min; Glucose* 137 mg/dL (60-115); Total Protein* 6.1 g/dL (6.0-8.3)
[2024-08-21 15:15] LABS: Basophils Percent Auto 0.2 % (0.0-3.0); Eosinophils Percent Auto 0.4 % (0.0-7.0); Hematocrit* 32.5 % (37.0-53.0); Hemoglobin* 10.2 gm/dL (13.5-17.5); Immature Granulocytes Pct Auto 0.9 %; Mean Corpuscular HGB Conc 31 gm/dL (32-36); Mean Corpuscular Hemoglobin 29 pg (26-34); Mean Corpuscular Volume 93 fL (80-100); Monocytes Percent Auto 19.6 % (0.0-11.0); Neutrophils Percent Auto 10.9 % (42.0-72.0); Platelet Count* 312 K/uL (140-440); Red Blood Count* 3.51 m/uL (4.30-5.90)
[2024-08-21 15:23] LABS: White Blood Count* 44.85 K/uL (4.50-11.00)
[2024-08-21 15:24] LABS: Slide Review Reflex No
[2024-08-23 10:49] VITALS: BP 135/78; PULSE 57; RESP 16; TEMP 36.4; O2SAT 96
[2024-08-23] MEDS: SODIUM CHLORIDE 0.9 % (FLUSH) 10 ML SYRINGE IVF (11:01)
[2024-08-23] MEDS: PEMBROLIZUMAB 200 MG, TUBING PRIMARY 1 EACH, In-line 0.2 micron filter set 1 EACH in 0.... 216 MG IVPB (11:01)
--- NOTE | 2024-08-23 11:28 | ONC.NURNOTE ---
Discussed this patient with Dr. Hurtado on 08/21/2024. He is okay to be treated with pembrolizumab without being seen this week. He is to see a provider prior to the next cycle. The patient was scheduled for today.
[2024-09-11 11:35] LABS: Basophils Percent Auto 0.3 % (0.0-3.0); Eosinophils Percent Auto 0.2 % (0.0-7.0); Hematocrit* 27.1 % (37.0-53.0); Hemoglobin* 8.5 gm/dL (13.5-17.5); Immature Granulocytes Pct Auto 0.6 %; Lymphocytes Percent Auto 71.9 % (20-44); Mean Corpuscular HGB Conc 31 gm/dL (32-36); Mean Corpuscular Hemoglobin 29 pg (26-34); Mean Corpuscular Volume 94 fL (80-100); Monocytes Percent Auto 20.4 % (0.0-11.0); Neutrophils Percent Auto 6.6 % (42.0-72.0); Platelet Count* 247 K/uL (140-440); RDW Coefficient of Variation % 18.5 % (11.5-15.5); Red Blood Count* 2.89 m/uL (4.30-5.90)
--- NOTE | 2024-09-11 11:39 | ONC.NURNOTE ---
Pt presented to [facility] for labs in anticipation of Pembrolizumab later this week. Pt looks and feels very unwell. Pt's color is quite pale and he is visibly exhausted. Freeman states that with any movement he is extremely short of breath. VSS, no fever now or at home. Pt states he is still taking his anti-fungal and that the dose was increased recently. Freeman has RLE edema which is not new. He is taking his diuretic as directed. Discussed with Judy Rendon APRN, TECHNOLOGY ADVISOR and because of pt's presentation, it was recommended that he go to the ER to be evaluated. Pt strongly agrees and stated I can't take this anymore. Called and gave verbal report to Norman Bennett RN. Support offered. Pt transported to [facility] ER via wheelchair.
[2024-09-11 11:44] VITALS: BP 130/65; PULSE 60; RESP 18; TEMP 36.8; O2SAT 95
[2024-09-11 11:48] LABS: Chloride* 99 mmol/L (96-114); Slide Review Reflex Yes; White Blood Count* 65.24 K/uL (4.50-11.00)
[2024-09-11 11:49] LABS: Albumin* 3.6 g/dL (3.3-5.0); Sodium* 130 mmol/L (135-149)
[2024-09-11 11:51] LABS: Blood Urea Nitrogen* 26 mg/dL (7-30); Creatinine* 1.1 mg/dL (0.5-1.5); Est. Creatinine Clearance* 54.45; Estimated Glomerular Filt Rate 68 ml/min
[2024-09-11 11:52] LABS: Alanine Aminotransferase* 80 U/L (4-50); Alkaline Phosphatase* 95 U/L (40-150); Anion Gap 7 mEq/L (7-15); Aspartate Amino Transferase* 81 U/L (12-35); Bilirubin Total* 1.6 mg/dL (0.1-1.5); Calcium* 8.8 mg/dL (8.4-10.6); Carbon Dioxide* 24 mmol/L (20-32); Glucose* 132 mg/dL (60-115)
[2024-09-11 12:59] LABS: Slide Review Acceptable Review (Acceptable)
--- NOTE | 2024-09-12 08:16 | URNOTE ---
Prior auth is not required for Pembrolizumab ([id number]). Services are based on medical necessity and follow medicare guidelines.
--- NOTE | 2024-09-14 13:20 | URNOTE ---
Prior auth is not requied for Gammagard or Privigen. Services are based on medical necessity and folow medicare guidelines.
[2024-09-18] VITALS (8 sets, daily range): BP systolic 120–141; BP diastolic 58–73; PULSE 59–63; RESP 16–22; TEMP 36.4–37; O2SAT 89–92
[2024-09-18 10:33] LABS: Basophils Percent Auto 0.1 % (0.0-3.0); Eosinophils Percent Auto 0.1 % (0.0-7.0); Hematocrit* 24.6 % (37.0-53.0); Immature Granulocytes Pct Auto 0.3 %; Lymphocytes Percent Auto 74.4 % (20-44); Mean Corpuscular HGB Conc 31 gm/dL (32-36); Mean Corpuscular Hemoglobin 29 pg (26-34); Mean Corpuscular Volume 95 fL (80-100); Monocytes Percent Auto 19.2 % (0.0-11.0); Neutrophils Percent Auto 5.9 % (42.0-72.0); Platelet Count* 209 K/uL (140-440); RDW Coefficient of Variation % 19.5 % (11.5-15.5)
[2024-09-18 10:41] LABS: Albumin* 3.5 g/dL (3.3-5.0); Chloride* 96 mmol/L (96-114); Potassium* 3.2 mmol/L (3.6-5.1); Sodium* 131 mmol/L (135-149)
[2024-09-18 10:43] LABS: Alanine Aminotransferase* 86 U/L (4-50); Anion Gap 10 mEq/L (7-15); Aspartate Amino Transferase* 86 U/L (12-35); Blood Urea Nitrogen* 29 mg/dL (7-30); Carbon Dioxide* 25 mmol/L (20-32); Creatinine* 1.1 mg/dL (0.5-1.5); Est. Creatinine Clearance* 54.45; Estimated Glomerular Filt Rate 68 ml/min
[2024-09-18 10:44] LABS: Alkaline Phosphatase* 90 U/L (40-150); Bilirubin Total* 2.4 mg/dL (0.1-1.5); Calcium* 8.5 mg/dL (8.4-10.6); Glucose* 173 mg/dL (60-115); Total Protein* 5.8 g/dL (6.0-8.3)
[2024-09-18 11:03] LABS: Hemoglobin* 7.6 gm/dL (13.5-17.5); Slide Review Reflex Yes
[2024-09-18 11:04] LABS: Slide Review Acceptable Review (Acceptable)
[2024-09-18] MEDS: diphenhydrAMINE 25 MG CAPSULE PO (13:51)
[2024-09-18] MEDS: ACETAMINOPHEN 500 MG TABLET PO (13:51)
--- NOTE | 2024-09-18 15:10 | ONC.NURNOTE ---
Pt here today for blood draw prior to MD appt with Dr. Hurtado on 09/20/24. Upon arrival pt states since last Tuesday he has been very short of breath and dizzy at times. Walking has become more difficult due to the shortness of breath. Discussed with Judy Rendon APRN, hgb came back 7.5. It was then recommended to have pt evaluated in the ED for any cardiac/pulmonary concerns and then [facility] could give pt a unit of PRBC if they agreed to this. Pt then returned and 1 unit of PRBC was started after giving Tylenol 500mg PO and benadryl 25mg PO since pt had a blood transfusion reaction in the past.
--- NOTE | 2024-09-18 18:48 | PC.NURSE ---
Pt tolerated infusion, no reactions noted, pt stayed one hour post infusion. Education reviewed. Pt discharged with daughter.
== END 2024-09-25 23:59 | disposition home or self-care (01) ==
LOC: CCIC 15:00
PROVIDERS: Clinical Nurse Specialist; Physician Assistant; PCP Student in an Organized Health Care Education/Training Program; Referring Provider Student in an Organized Health Care Education/Training Program; Visit Provider Internal Medicine Hematology & Oncology
DX: C91.10 Chronic lymphocytic leukemia of B-cell type not having achieved remission (principal); D80.1 Nonfamilial hypogammaglobulinemia; C07 Malignant neoplasm of parotid gland; R79.89 Other specified abnormal findings of blood chemistry; Z79.899 Other long term (current) drug therapy; I48.91 Unspecified atrial fibrillation
CPT/HCPCS: 36415; 36430; 71046; 80053; 80076; 83880; 84443; 85025; 85610; 86850; 86900; 86901; 86922; 93005; 96409; 96413; 97802; 99214; 99215; 99284; G0463; A9270; J9271; P9016

== ENCOUNTER 2025-02-15 13:00 | Outpatient (RCR) | payer MEDICARE, BC, SELFPAY ==
--- NOTE | 2024-11-01 09:04 | ONC.NURNOTE ---
Received call from Keyla AGUILAR from Hematology in [place] yesterday wondering if pt could have labs and possible blood transfusions done here in [place]. Pearl Peller discussed with Dr. Hurtado today and at this time she does not want pt to come to [place] for supportive care due to his complex medical history. She would like him to go to [place] or any [place] facility so that his records are readily accessible for the treating provider.
[2024-12-05 09:39] VITALS: BP 111/67; PULSE 68; RESP 18; TEMP 35.9; O2SAT 98
[2025-01-21 12:13] VITALS: BP 142/84; PULSE 79; TEMP 37.1; O2SAT 98
[2025-01-21] MEDS: SODIUM CHLORIDE 0.9 % (FLUSH) 10 ML SYRINGE IVF (12:35)
[2025-01-24 12:15] VITALS: BP 121/77; PULSE 76; RESP 16; TEMP 36.5; O2SAT 97
[2025-01-25 11:21] VITALS: BP 154/54; PULSE 58; RESP 15; TEMP 36.4; O2SAT 97
[2025-01-25] MEDS: SODIUM CHLORIDE 0.9 % (FLUSH) 10 ML SYRINGE IVF (11:35)
[2025-02-01 10:14] VITALS: BP 165/103; PULSE 88; RESP 16; TEMP 36.2; O2SAT 99
[2025-02-01] MEDS: SODIUM CHLORIDE 0.9 % (FLUSH) 10 ML SYRINGE IVF (10:30)
[2025-02-04 11:41] VITALS: BP 132/82; PULSE 70; RESP 18; TEMP 36.6; O2SAT 100
[2025-02-04] MEDS: SODIUM CHLORIDE 0.9 % (FLUSH) 10 ML SYRINGE IVF (12:23)
--- NOTE | 2025-02-07 09:45 | PC.NURSE ---
Addendum entered by Jo Rodrigez 02/07/25 10:01: Correction- Patient's family member was who called. His has . Original Note: On 02/07 [facility] called and canceled his 11am infusion as he is currently in the Emergency Room in [place].
[2025-02-15 13:00] VITALS: BP 157/94; PULSE 74; RESP 16; TEMP 36.2; O2SAT 96
[2025-02-15] MEDS: SODIUM CHLORIDE 0.9 % (FLUSH) 10 ML SYRINGE IVF (13:33)
== END 2025-06-03 23:59 | disposition home or self-care (01) ==
LOC: CCIC 13:00
PROVIDERS: PCP Student in an Organized Health Care Education/Training Program; Referring Provider Student in an Organized Health Care Education/Training Program; Visit Provider Physician Assistant
DX: C91.10 Chronic lymphocytic leukemia of B-cell type not having achieved remission (principal); C07 Malignant neoplasm of parotid gland
CPT/HCPCS: 96360; 99211; G0463; J7030

== ENCOUNTER 2025-04-25 13:42 | Outpatient (CLI) | payer MEDICARE, BC, SELFPAY ==
--- NOTE | 2025-04-25 14:00 | CRLHL7_ITS ---
For Patients: As a result of the Century Cures Act, medical imaging exams and procedure reports are released immediately into your electronic medical record. You may view this report before your referring provider. If you have questions, please contact your health care provider. CLINICAL HISTORY: Leukemia. TECHNIQUE: Following IV injection of 65-wsehja-4-deoxyglucose (FDG) and a standard uptake period of approximately 60 minutes, a non-contrast CT scan followed by a PET scan were acquired along the length of the body from the mid portion of the head to the mid thighs. The non-contrast CT was used for anatomic localization and photon attenuation correction of the PET scan. Blood Glucose Level (mg/dL): 105 FDG Dose (mCi): 14.9 COMPARISON: Chest CT scan dated 11 September 2024 and 30 June 2024. PET-CT scans dated 24 November 2023 and 12 May 2023. FINDINGS: Head/Neck: No abnormal activity identified in the head and neck. Resolution of the bilateral parotid masses. Chest: Resolution of the mediastinal, hilar, or axillary adenopathy. Atherosclerotic vascular calcifications. The lungs show a small left-sided pleural effusion. Small nodular airspace opacities in the perihilar region of the right middle lobe, SUV max 6.2. Resolution of the ground-glass opacities in the lungs. No pneumothorax. Abdomen/Pelvis: No focal abnormalities identified in the visualized portions of the liver, spleen, pancreas, adrenal glands, and kidneys. No hydronephrosis. Radiation seeds in the prostate gland. The GI tract is incompletely distended but shows no gross abnormalities. Resolution of the retroperitoneal, pelvic sidewall, and mesenteric adenopathy. Atherosclerotic vascular calcifications. Bones: Degenerative changes of the spine. No abnormal skeletal activity identified. IMPRESSION: 1. Resolution of the adenopathy in the neck, chest, abdomen, and pelvis. 2. Small nodular airspace opacities in the perihilar region of the right middle lobe could be due to an infectious/inflammatory process. Recommend follow-up chest CT scan in 3 months for further evaluation. 3. Small left-sided pleural effusion. Dictated by Gregorio Lombardo MD @ 04/30/2025 1:59:31 PM (Electronically Signed)
== END 2025-04-25 13:43 | disposition home or self-care (01) ==
LOC: RAD 13:43
PROVIDERS: PCP Student in an Organized Health Care Education/Training Program; Visit Provider Physician Assistant
DX: C08.9 Malignant neoplasm of major salivary gland, unspecified (principal); C91.00 Acute lymphoblastic leukemia not having achieved remission; R91.8 Other nonspecific abnormal finding of lung field; J90 Pleural effusion, not elsewhere classified
CPT/HCPCS: 78815; A9552